=== PATIENT | male | born 1965 | race Caucasian/White ===

== ENCOUNTER 2023-11-03 03:41 | Outpatient (CLI) | payer OTHER, SELFPAY ==
--- OUTSIDE RECORDS SUMMARY | 2023-11-05 00:35 | XMS_ITS | Encounter Summary ---
Author Organization [facility] Address [address] [place] [address] Care Team Providers Care Outside Medical Sales Representative Name Role Phone Elsewhere, Pcp Primary Care Provider Unavailabl e Encounter Details Date Type Department Care Team (Late st Contact Info) Description 10/21/2023 Clinical Communication Department of Orthopedic Surgery in [place], [place] [address] [place] [phone] Vel Vinson M.D., M.B.A. [address] [place] [phone] Social History Tobacco Use Types Packs/Day Years Used Date Smoking Tobacco: Never Passive Smoke Exposure: Never Smokeless Tobacco: Never Alcohol Use Standard Drinks/Week Comments Never 2 (1 standard drink = 0.6 oz pur e alcohol) [facility] Utilities Answer Date Recorded In the past 12 months has [facility] [employer], gas, oil, or water [employer] threatened to shut off services in your [...] (Latest Contact Info) Description 01/02/2024 11:30 AM SUPERVISOR GLYCERIN Clinical Communication Virtual Review in [place], [place] [address] [place] [phone] 01/05/2024 9:20 AM SUPERVISOR GLYCERIN Lab Department of Infusion Therapy in [place], [place] [address] [place] [phone] Vel Vinson M.D., M.B.A. [address] [place] [address] [phone] 01/05/2024 10:15 AM SUPERVISOR GLYCERIN Appointment Department of Radiology, [facility], in [place], [place] [address] [place] [address] [phone] Vel Vnison M.D., M.B.A. [address] [place] [phone] 01/05/2024 10:45 AM SUPERVISOR GLYCERIN Comprehensive Visit Section of Infectious Diseases in [place], [place] [address] [place] [phone] Maddy Bingham P.A.-C. [address] [place] [address] [phone] 01/05/2024 11:15 AM SUPERVISOR GLYCERIN Office Visit Department of Orthopedic Surgery in [place], [place] [address] [place] [phone] Vel Vinson M.D., M.B.A. [address] [place] [phone] 01/06/2024 Hospital Encounter [facility]ST [facility]EI 02 4 AM ADMIT [address] [place] [phone] Vel Vinson M.D., M.B.A. [address] [place] [address] [phone] Scheduled Procedures Name Priority Associated Diagnoses Date/Ti me ARTHROPLASTY REVISION FEMORAL+ACETABULAR HIP Infection Total Hip Arthroplasty Subsequent Right documented as of this encounter Visit Diagnoses Diagnosis Infection 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 Total Hip Arthroplasty Subsequent Right- Primary documented in this encounter Care Teams Outside Medical Sales Representative Relationship Specialty Start Date End Date Elsewhere, Pcp PCP - General Internal Medicine 10/03/23 documented as of this encounter
--- OUTSIDE RECORDS SUMMARY | 2023-11-05 00:35 | XMS_ITS | Encounter Summary ---
Author Organization [facility] Address [address] [place] [address] Care Team Providers Care Psychologist Chief Name Role Phone Elsewhere, Pcp Primary Care Provider Unavailabl e Reason for Referral * Outpatient (Routine) - Authorized Specialty Diagnoses / Procedures Referred By Tammi t Referred To Contact Neurology Balbir Maradiaga M.D. [address] [place] [phone] [facility] Referral ID Status Reason Start Date Expiration Date V isits Requested Visits Authorized [id number] Authorized 10/03/2023 04/03/2025 1 1 Scheduling Instructions Please schedule for after electroencephalogram in May of 2024 * Outpatient (Routine) - Authorized Specialty Diagnoses / Procedures Referred By Tammi t Referred To Contact Diagnoses Seizure (HCC) Procedures EEG routine - awake and sleep Balbir Maradiaga M.D. [address] [place] [phone] [facility] Referral ID Status Reason Start Date Expiration Date V isits Requested Visits Authorized [id number] Authorized 10/03/2023 10/02/2024 1 1 Reason for Visit * Outpatient (Routine) - Closed Specialty Diagnoses / Procedures Referred By Contac t Referred To Contact Neurology Diagnoses Stroke (HCC) Veronica Hill M.D., M.S. [address] [place] [phone] [facility] Referral ID Status Reason Start Date Expiration Date Visits Re quested Visits Authorized [id number] Closed 06/25/2023 12/24/2024 1 1 Encounter Details Date Type Department Care Team (Latest Contact Info) Description 10/03/2023 1:00 PM CDT Comprehensive Visit Department of Neurology in [place], [place] [address] [place] [phone] Balbir Maradiaga M.D. [address] [place] [phone] Stroke Cerebrovascular Accident Personal History (Primary Dx); Seizure (HCC); Stenosis Carotid Artery Left Social History Tobacco Use Types Packs/Day Years Used Date Smoking Tobacco: Never Passive Smoke Exposure: Never Smokeless Tobacco: Never Alcohol Use Standard Drinks/Week Comments Never 2 (1 standard drink = 0.6 oz pur e alcohol) [facility] Utilities Answer Date Recorded In the past 12 months has [employer], gas, oil, or water [employer] threatened to shut off services in your [...] h is sister, Lor, sister Annamaria, and uunkuyx-vb-oea, Ashutosh who help provide co- lateral history. Bennettarged from the hospital to a long-term. He continues to work with physical therapy [...] proprioception on the right hemibody. Noneglect. Coordination: Dbsygx-mh-tnmz and yghg-uc-lkpv testing is normal on the left. ASSESSMENT [...] note. This patient was well known to [facility] Neurology and Neurosurgery, he was a 58-year-old [...] stroke-like symptoms. He was currently at a shelter facility receiving therapies for stroke recovery. Antithrombotics [...] global yet motor predominant aphasia that is juju-ut-nwzfmghy and a right hemiparesis with some movement [...] (Latest Contact Info) Description 01/02/2024 11:30 AM NEGOTIATOR SALES Clinical Communication Virtual Review in [place], [place] 200 [place] [phone] 01/05/2024 9:20 AM NEGOTIATOR SALES Lab Department of Infusion Therapy in [place], [place] [address] [place] [phone] Vel Vinson M.D., M.B.A. [address] [place] [address] [phone] 01/05/2024 10:15 AM NEGOTIATOR SALES Appointment Department of Radiology, [facility], in [place], [place] [address] [place] [phone] Vel Vinson M.D., M.B.A. [address] [place] [phone] 01/05/2024 10:45 AM NEGOTIATOR SALES Comprehensive Visit Section of Infectious Diseases in [place], [place] [address] [place] [phone] Maddy Bingham P.A.-C. [address] [place] [phone] 01/05/2024 11:15 AM NEGOTIATOR SALES Office Visit Department of Orthopedic Surgery in [place], [place] [address] [place] [phone] Vel Vinson M.D., M.B.A. [address] [place] [address] [phone] 01/06/2024 Hospital Encounter [facility]ST RO[facility]I 02 4 AM ADMIT [address] [place] [phone] Vel Vinson M.D., M.B.A. [address] [place] [phone] Scheduled Orders Name Type Priority Associated Diagnoses [...] Left documented in this encounter Care Teams Psychologist Chief Relationship Specialty Start Date End Date Elsewhere, Pcp PCP - General Internal Medicine 10/03/23 documented as of this encounter
--- OUTSIDE RECORDS SUMMARY | 2023-11-05 00:35 | XMS_ITS | Encounter Summary ---
Author Organization [facility] Address [address] [place] [address] Care Team Providers Care Customer Care Representative Name Role Phone Elsewhere, Pcp Primary Care Provider Unavailabl e Encounter Details Date Type Department Care Team (Latest Contact Info) Description 11/03/2023 Intake [facility] Social History Tobacco Use Types Packs/Day Years Used Date Smoking Tobacco: Never Passive Smoke Exposure: Never Smokeless Tobacco: Never Alcohol Use Standard Drinks/Week Comments Never 2 (1 standard drink = 0.6 oz pur e alcohol) [facility] Utilities Answer Date Recorded In the past 12 months has e electric, gas, oil, or water [employer] threatened to shut off services in your [...] (Latest Contact Info) Description 01/02/2024 11:30 AM UNIVERSITY RELATIONS VICE PRESIDENT Clinical Communication Virtual Review in [place], [place] 200 [place] [phone] 01/05/2024 9:20 AM UNIVERSITY RELATIONS VICE PRESIDENT Lab Department of Infusion Therapy in [place], [place] [address] [place] [phone] Vel Vinson M.D., M.B.A. [address] [place] [phone] 01/05/2024 10:15 AM UNIVERSITY RELATIONS VICE PRESIDENT Appointment Department of Radiology, [facility], in [place], [place] [address] [place] [phone] Vel Vinson M.D., M.B.A. [address] [place] [address] [phone] 01/05/2024 10:45 AM UNIVERSITY RELATIONS VICE PRESIDENT Comprehensive Visit Section of Infectious Diseases in [place], [place] [address] [place] [phone] Maddy Bingham P.A.-C. [address] [place] [address] [phone] 01/05/2024 11:15 AM UNIVERSITY RELATIONS VICE PRESIDENT Office Visit Department of Orthopedic Surgery in [place], [place] [address] [place] [phone] Vel Vinson M.D., M.B.A. [address] [place] [phone] 01/06/2024 Hospital Encounter [facility] 02 4 AM ADMIT [address] [place] [address] [phone] Vel Vinson M.D., M.B.A. [address] [place] [address] [phone] Scheduled Procedures Name Priority Associated Diagnoses Date/Ti me ARTHROPLASTY REVISION FEMORAL+ACETABULAR HIP Infection Total Hip Arthroplasty Subsequent Right documented as of this encounter Visit Diagnoses Not on filedocumented in this encounter Care Teams Customer Care Representative Relationship Specialty Start Date End Date Elsewhere, Pcp PCP - General Internal Medicine 10/03/23 documented as of this encounter
--- OUTSIDE RECORDS SUMMARY | 2023-11-05 00:35 | XMS_ITS | Referral Summary ---
Author Organization [facility] Address [address] [place] [id number] Care Team Providers Care Drop Clipper Name Role Phone Elsewhere, Pcp Primary Care Provider Unavailabl e Source Comments Patient records contain information from all sites at [facility]. For routine questions regarding patient records, call [phone] during business hours, M-F 8:00 AM - 5:00 PM Central Time. Record requests for emergency care only can be directed to [phone] at any time.[facility] Encounters Date Type Department Care Team Description 11/03/2023 Intake [facility] 10/21/2023 Clinical Communication Department of Orthopedic Surgery in [place], [place] [address] [place] [phone] Vel Vinson M.D., M.B.A. 10/03/2023 1:00 PM CDT Comprehensive Visit Department of Neurology in [place], [place] [address] [place] [phone] Balbir Maradiaga M.D. Stroke Cerebrovascular Accident Personal History (Primary Dx); Seizure (HCC); Stenosis Carotid Artery Left 10/01/2023 Abstract [place], [place] [address] [place] [phone] Provider, Historical 09/24/2023 2:45 PM CDT Clinical Communication Virtual Review in [place], [place] [address] [place] [phone] 09/08/2023 Orders Only Section of Infectious Diseases in [place], [place] [address] [place] [phone] Storm Nicole M.D. Infection Total Hip Arthroplasty Subsequent Right (Primary Dx) 08/28/2023 11:00 AM CDT Internal E-Consult Department of Vascular Medicine in [place], [place] [address] [place] [phone] Gaudencio Escobedo M.D. Occlusion Carotid Artery Left (Primary Dx); Stenosis Carotid Artery Right; Peripheral Arterial Disease (HCC); Stroke (HCC); Infection Total Hip Arthroplasty Subsequent Right; Hemiplegia Flaccid Dominant Side Right (HCC) 08/27/2023 Orders Only Department of Neurologic Surgery in [place], [place] [address] [place] [phone] sRosalie R.N., CNRN Stenosis Carotid Artery Right (Primary Dx); Occlusion Carotid Artery Left; Peripheral Arterial Disease (HCC); Stroke (HCC); Infection Total Hip Arthroplasty Subsequent Right; Hemiplegia Flaccid Dominant Side Right (HCC) 08/27/2023 Clinical Communication Department of Neurologic Surgery in [place], [place] [address] [place] [phone] Fantasma Butt M.D. 08/26/2023 Orders [address] [facility] Doug Lima M.D. Diabetes Mellitus Type 2 Peripheral Neuropathy ([facility]) 08/25/2023 6:43 AM CDT - 08/25/2023 12:10 PM CDT Hospital Encounter Department of Radiology, [facility] in [place], [place] [address] [place] [phone] Xavi Hicks M.D. Infection Total Hip Arthroplasty Subsequent Right Discharge Disposition: Home or Self Care 08/25/2023 12:11 PM CDT - 08/25/2023 11:59 PM CDT Hospital Encounter Department of Radiology, [facility] in [place], [place] [address] [place] [phone] Radha Ojeda P.A.-C., M.S. Stenosis Carotid Artery Bilateral Discharge Disposition: Home or Self Care 08/25/2023 9:00 AM CDT Comprehensive Visit Section of Infectious Diseases in [address] [phone] Sylvester Robb P.A.-C. Storm Nicole M.D. Infection Total Hip Arthroplasty Subsequent Right (Primary Dx) 08/25/2023 3:00 PM CDT Office Visit Department of Neurologic Surgery in [address] [phone] Fantasma Butt M.D. Stenosis Carotid Artery Right (Primary Dx); Occlusion Carotid Artery Left 08/25/2023 8:15 AM CDT Office Visit Department of Orthopedic Surgery in [address] [phone] Vel Vinson M.D., M.B.A. Infection Total Hip Arthroplasty Subsequent Right (Primary Dx); Stroke (HCC) 08/20/2023 12:00 PM CDT Clinical Communication Virtual Review in [address] [phone] Pre-visit Intake from Last 3 Months Allergies Active Allergy Reactions Criticality Noted Date Comments Cefazolin Other (see comments) 08/25/2023 Possible increase in alkaline phosphatase please see ID notes Medications Medication Sig Dispensed Refills Start Date End Date Status lancets 1 each daily. 50 each 07/29/2022 Active blood sugar diagnostic strips 1 test daily. 30 test 07/29/2022 Active blood-glucose meter (FreeStyle Ansted) kit Use as instructed 1 each 07/29/2022 Active blood glucose ctl high,nml,low solution Glucose control solution provides an easy way to ensure accurate blood glucose testing. 1 each 07/29/2022 Active flash glucose scanning reader (FreeStyle Jessica 2 [place]) miscIndications:Bhargavi betes Mellitus Type 2 Ulcer Foot [...] (04/17/2020): Added automatically from request for surgery [id number] Hyponatremia 03/09/2020 07/30/2022 Hyperkalemia 03/09/2020 07/30/2022 Cellulitis [...] In the past 12 months has e [employer], gas, oil, or water company threatened to [...] (Latest Contact Info) Description 01/02/2024 11:30 AM WEIGHT AND TEST BAR CLERK Clinical Communication Virtual Review in [place], [place] 200 [place] [address] 01/05/2024 9:20 AM WEIGHT AND TEST BAR CLERK Lab Department of Infusion Therapy in [address] [phone] Vel Vinson M.D., M.B.A. [address] [place] [phone] 01/05/2024 10:15 AM WEIGHT AND TEST BAR CLERK Appointment Department of Radiology, [facility], in [place], [place] [address] [place] [phone] Vel Vinson M.D., M.B.A. [address] [place] [phone] 01/05/2024 10:45 AM WEIGHT AND TEST BAR CLERK Comprehensive Visit Section of Infectious Diseases in [place], [place] [address] [place] [phone] Maddy Bingham P.A.-C. [address] [place] [phone] 01/05/2024 11:15 AM WEIGHT AND TEST BAR CLERK Office Visit Department of Orthopedic Surgery in [place], [place] [address] [place] [phone] Vel Vinson M.D., M.B.A. [address] [place] [phone] 01/06/2024 Hospital Encounter [facility] RO 02 4 AM ADMIT [address] [place] [phone] Vel Vinson M.D., M.B.A. [address] [place] [phone] Scheduled Procedures Name Priority Associated Diagnoses Date/Ti me ARTHROPLASTY REVISION FEMORAL+ACETABULAR HIP Infection Total Hip Arthroplasty Subsequent Right Medical Devices Implanted Type Area Dermatology Physician Assistant Device Identifier Shelf Expiration Date Model / Serial / Lot Cmnt Bn [facility] 40gm - [id number] Implanted:Qty: 1 on 05/23/2023 by Vel Vinson M.D., M.B.A. at [facility] Bone Cement Right: Hip Roff 6191-1-001 / / Cmnt Bn [facility] 40gm - [id number] Implanted:Qty: 1 on 05/23/2023 by Félix Mckeon M.D. at [facility] Bone Cement Right: Hip Liliane 6191-1-001 / / Cmnt Bn Smp 40gm - [id number] Implanted:Qty: 1 on 05/23/2023 by Félix Mckeon M.D. at [facility] Bone Cement Right: Hip Roff 6191-1-001 / / Stnt Protege 0.014 1w19g063 - [id number] Implanted:Qty: 1 on 08/09/2022 by Fantasma Butt M.D. at [facility] Cardiac Stent Medtronic 02/19/2024 SECX-8-30-1 35 / / [id number] Small Frag-Screw Yasmany 3.5x16 - Amaral [id number] Implanted:Qty: 3 on 2004 Hardware e.g. pins/screws /rods Depuy Synthes Description:Device Manufactu rer - Synthes. Device Status Text - HARDWARE-7597. K-Wire Smooth S.S. Single 9 .062 - Amaral [id number] Implanted:Qty: 1 on 2004 Hardware e.g. pins/screws /rods Roff Description:Device Manufactu rer - Roff Angel.. Device Status Text - HARDWARE-9295. Small [...] pins/screws /rods Liliane Description:Device Manufactu rer - Liliane Angel.. Device Status Text - HARDWARE-9484. Small Frag-Screw Yasmany 3.5x26 - Amaral [id number] Implanted:Qty: 1 on 01/02/2004 Hardware e.g. pins/screws /rods Depuy Synthes Description:Device Manufactu rer - Synthes. Device Status Text - HARDWARE-7602. Syn Screw Schanz 5.0x250 - Amaral [id number] Implanted:Qty: 1 on 01/02/2004 Hardware e.g. pins/screws /rods Depuy Synthes Description:Device Manufactu rer - Synthes. Device Status Text - HARDWARE-11063. Guide Wire-Ball Tip 3 X 800 - Amaral [id number] Implanted:Qty: 1 on 02/03/2009 Hardware e.g. pins/screws /rods Roff Description:Device Manufactu rer - Roff Angel.. Device Status Text - HARDWARE- 81201. [facility] Data - [id number]. Hip Stm Prs Cmnt Rt 3 200 - [id number] Implanted:Qty: 1 on 05/23/2023 by Félix Mckeon M.D. at [facility] Hip Implant Right: Hip Depuy Synthes 08/16/2032 [id number] / / [id number] Lnr Emp Aox Std +4 40x54 - [id number] Implanted:Qty: 1 on 05/23/2023 by Félix Mckeon M.D. at [facility] Hip Implant Right: Hip Depuy Synthes 02/16/2027 4722-54-440 / / [id number] Fem Hd Art +12ofst 40 - [id number] Implanted:Qty: 1 on 05/23/2023 by Vel Vinson M.D., M.B.A. at [facility] Hip Implant Right: Hip Depuy Synthes 02/16/2033 4734-40-120 / / [id number] Stnt Zilver 518 8x80 - [id number] Implanted:Qty: 1 on 05/24/2023 by Almaz Olea M.D. at [facility] Vascular Stent [employer] 02/24/2026 [id number] / / [id number] Explanted Type Area Dermatology Physician Assistant Device Identifier Shelf Expiration Date Model / Serial / Lot Screw-Hgpii S-Tap 6.5 X 15mm - Amaral [id number] Implanted:Qty: 1 on 02/03/2009 Explanted:Qty: 1 on 05/23/2023 by Vel Vinson M.D., M.B.A. at [facility] Hardware e.g. pins/screws /rods Nori Biomet Description:Device Manufactu rer - Nori. Device Status Text - HARDWARE-35720. Small Frag-Screw Yasmany 3.5x12 - Amaral [id number] Implanted:Qty: 1 on 01/02/2004 Explanted:Qty: 1 on 05/23/2023 by Vel Vinson M.D., M.B.A. at [facility] Hardware e.g. pins/screws /rods Depuy Synthes Description:Device Manufactu rer - Synthes. Device Status Text - HARDWARE-7595. Small Frag-Screw Yasmany 3.5x16 - Amaral [id number] Implanted:Qty: 2 on 01/02/2004 Explanted:Qty: 2 on 05/23/2023 by Vel Vinson M.D., M.B.A. at [facility] Hardware e.g. pins/screws /rods Depuy Synthes Description:Device Manufactu rer - Synthes. Device Status Text - HARDWARE-7597. Pelvic Re-Plate Cvd 3.5x 6ho - Amaral [id number] Implanted:Qty: 1 on 01/02/2004 Explanted:Qty: 1 on 05/23/2023 by Félix Mckeon M.D. at [facility] Hardware e.g. pins/screws /rods Depuy Synthes Description:Device Manufactu rer - Synthes. Device Status Text - HARDWARE-7366. Right Hip Screw-Hgpii S-Tap 6.5 X 30mm - Amaral [id number] Implanted:Qty: 2 on 02/03/2009 Explanted:Qty: 2 on 05/23/2023 by Vel Vinson M.D., M.B.A. at [facility] Hardware e.g. pins/screws /rods Nori [employer] Description:Device Manufactu rer - Nori. Device Status Text - HARDWARE-91973. Screw-Hgpii S-Tap 6.5 X 35mm - Amaral [id number] Implanted:Qty: 1 on 02/03/2009 Explanted:Qty: 1 on 05/23/2023 by Vel Vinson M.D., M.B.A. at [facility] Hardware e.g. pins/screws /rods Nori [employer]omet Description:Device Manufactu rer - Nori. Device Status Text - HARDWARE-02460. 6.5 Saniya Screw-16mm Thread 65 - Amaral [id number] Implanted:Qty: 1 on 01/02/2004 Explanted:Qty: 1 on 05/23/2023 by Vel Vinson M.D., M.B.A. at [facility] Hardware e.g. pins/screws /rods Depuy Synthes Description:Device Manufactu rer - Synthes. Device Status Text - HARDWARE-78747. Implex-Shell Hedro 54mm - Amaral [id number] Implanted:Qty: 1 on 02/03/2009 Explanted:Qty: 1 on 05/23/2023 by Vel Vinson M.D., M.B.A. at [facility] Hip Implant Other/Legacy - See Implant Description Nori Biomet Description:Device Manufactu rer - Nori. Body Location - Other. Right. Device Status Text - HIP IMP-[id number]. Desha-Stem Perkins 8 Hi - Amaral [id number] Implanted:Qty: 1 on 02/03/2009 Explanted:Qty: 1 on 05/23/2023 by Vel Vinson M.D., M.B.A. at [facility] Hip Implant Other/Legacy - See Implant Description [employer] Description:Device Manufactu rer - [employer]. Body Location - Other. Right. Device Status Text - HIP IMP-413107. Nori Liner 0 Degree 32 X 54m - Amaral [id number] Implanted:Qty: 1 on 02/03/2009 Explanted:Qty: 1 on 05/23/2023 by Vel Vinson M.D., M.B.A. at [facility] Hip Implant Other/Legacy - See Implant Description Nori Biomet Description:Device Manufactu rer - Nori. Body Location - Other. Right. Device Status Text - HIP [id number]-998468. Dep. Head Prodigy 32 + 1.0 - Amaral [id number] Implanted:Qty: 1 on 02/03/2009 Explanted:Qty: 1 on 05/23/2023 by Vel Vinson M.D., M.B.A. at [facility] Hip Implant Other/Legacy - See Implant Description [employer] Description:Device Manufactu rer - J & J Ortho. Body Location - Other. Right. Device Status Text - HIP IMP-034745. Procedures Procedure Name Priority Date/Time Associated Diagnosis [...] ALBUMIN, RANDOM, U Routine 03/10/2023 11:30 AM WEIGHT AND TEST BAR CLERK Diabetes Mellitus Type 2 Ulcer Foot Hyperglycemic [...] normal distal ICA in accordance with [place] Symptomatic Carotid Endarterectomy Trial (NASCET). Procedure Note [...] the ICA. Velocities in the stent of evppkgypu066pd/sec with mild narrowing of the stent seen [...] left ICA. Velocities in the stent of hnghzonyg255be/sec with mild narrowing of the stent seen [...] CDT Storm Nicole M.D. LAB BLOOD ADD-ON [facility] [address] [place] [address], [facility] [address] [place] [address] * (ABNORMAL) Sedimentation Rate (08/25/2023 8:11 AM CDT) Sedimentation Rate, B 27(H) 2 - 20 mm/h 08/25/2023 10:12 AM CDT DTL Blood (Blood, Venous) 08/25/2023 8:11 AM CDT 08/25/2023 8:51 AM CDT Storm Nicole M.D. LAB BLOOD ADD-ON Performing Organization Address City/[facility]/ZIP Co de Phone Number [facility] [address] [place] [address], [facility] DTL [facility] [address] [place] [address] * (ABNORMAL) CBC with Differential, Blood (08/25/2023 8:11 AM CDT) Pathologist [facility] Hemoglobin 11.9(L) 13.2 - 16.6 g/dL 08/25/2023 [...] CDT Storm Nicole M.D. LAB BLOOD ADD-ON [facility] [address] [place] [address], [facility] [address] [place] [address] [facility] [address] [place] [address] * CRP (C-Reactive Protein) (08/25/2023 8:11 AM CDT) C-Reactive Protein (CRP), S 3.2 <5.0 mg/L 08/25/2023 9:16 AM CDT DTL Blood (Blood, Venous) 08/25/2023 8:11 AM CDT 08/25/2023 8:55 AM CDT Storm Nicole M.D. LAB BLOOD ADD-ON Performing Organization Address [facility] Co de Phone Number [facility] [address] [place] [address], [facility] [address] [place] [address] * Creatinine with Estimated GFR (08/25/2023 8:11 AM CDT) Creatinine 1.06 0.74 - 1.35 mg/dL 08/25/2023 9:16 AM CDT DTL Estimated GFR (eGFR) 81 >=60 mL/min/BSA 08/25/2023 9:16 AM CDT DTL Comment: Estimated GFR calculated using the 2020 CKD_EPI creatinine equation. Blood (Blood, Venous) 08/25/2023 8:11 AM CDT 08/25/2023 8:55 AM CDT Storm Nicole M.D. LAB BLOOD ADD-ON [facility] [address] [place] [address], [facility] [address] [place] [address] * DX Hip And Pelvis Right 2-3 [...] * Albumin, Random, Urine (03/10/2023 11:30 AM WEIGHT AND TEST BAR CLERK) Microalbumin <12.0 mg/L 03/10/2023 11:54 AM WEIGHT AND TEST BAR CLERK [facility] Comment:If clinically indica faviola, contact the lab for additional testing. Creatinine 112 mg/dL 03/10/2023 11:54 AM WEIGHT AND TEST BAR CLERK [facility] Albumin/Creatinine Ratio <11 <17 mg/g 03/10/2023 11:54 AM WEIGHT AND TEST BAR CLERK [facility] Comment: This ratio may not correspond with the reference range because one or both of the values used to calculate the ratio was above or below the quantification limits. Urine (Urine, Midstream) 03/10/2023 11:30 AM WEIGHT AND TEST BAR CLERK 03/10/2023 11:30 AM WEIGHT AND TEST BAR CLERK Doug Lima M.D. LAB URINE ORDERABLES [facility] [address] [place] [address], [place] [facility] [place] [address] [id number] from Last 3 Months or Most Recently Relevant to Health Maintenance Advance Directives For more information, please contact: [phone] * Full Code (Latest Code Status on [...] Due to: Patient not available Care Teams Drop Clipper Relationship Specialty Start Date End Date Elsewhere, Pcp PCP - General Internal Medicine 10/03/23
--- OUTSIDE RECORDS SUMMARY | 2023-11-05 00:35 | XMS_ITS | Clinical Summary ---
Author Organization [facility] Address [place], [place] [address] Care Team Providers Care Bobbin Inspector Name Role Phone Monty Hernandez MD Primary Care Provider [phone] Allergies No known active allergies Medications Medication Sig Dispensed Refills Start Date End Date Status lisinopril-hydro chlorothiazide, 20-25 mg, (PRINZIDE, ZESTORETIC) 20-25 mg per tabletIndication s:Hypertension Take 1 tablet by mouth once daily. 90 tablet 3 6 11/03/19 24 Discontinued(P harmacist change per medication history (E-cancel not sent)) CPAPIndications: MICHELET (obstructive sleep apnea) autoCPAP, heated humidifier, mask, headgear, filters and tubing. Pressure: 5-18cm/H2O Length of Need: 99 1 Device 0 6 Suspended Additional Information metFORMIN (GLUCOPHAGE) 1,000 mg tabletIndication s:Type 2 diabetes mellitus without complication (HC) Take 1 tablet by mouth 2 times daily with meals. 0.5 tab in am x 5 days; 0.5 tab bid x 5 d; 1 tab in am, 0.5 in pm x 5 d, then 1 tab bid 180 tablet 3 6 11/03/19 24 Discontinued(P harmacist change per medication history (E-cancel not sent)) acetaminophen (TYLENOL EXTRA STRGTH) 500 mg tablet Take 1,000 mg by mouth three times daily. Max acetaminophen dose: 4000mg in 24 hrs. Suspended aspirin (ECOTRIN) 81 mg enteric coated tablet Take 81 mg by mouth once daily. 11/03/19 24 Discontinued(P harmacist change per medication history (E-cancel not sent)) atorvastatin (LIPITOR) 20 mg tablet Take 20 mg by mouth once daily. 11/03/19 24 Discontinued(P harmacist change per medication history (E-cancel not sent)) carboxymethylcel lulose 0.5 % eye drops in dropperette Place 1 Drop into both eyes each time if needed for Dry Eyes. 11/03/19 24 Discontinued(P harmacist change per medication history (E-cancel not sent)) insulin NPH isophane, U-100, (NovoLIN N FlexPen) 100 unit/mL (3 mL) pen Inject subcutaneous. 11/03/19 24 Discontinued(P harmacist change per medication history (E-cancel not sent)) levETIRAcetam (KEPPRA) 100 mg/mL oral solution Take 750 mg by mouth two times daily. 4 Suspended lisinopriL (PRINIVIL; ZESTRIL) 5 mg tablet Take 5 mg by mouth once daily. 4 Suspended nystatin powder (MYCOSTATIN) powder Apply topically to affected area(s) 2 times daily if needed. 4 11/03/19 24 Discontinued(P harmacist change per medication history (E-cancel not sent)) rivaroxaban (XARELTO) 10 mg tablet Take 10 mg by mouth once daily with evening meal. 4 08/28/19 25 Suspended Senna 8.6 mg tablet Take 8.6 mg by mouth once daily. 4 Suspended zinc oxide 20 % ointment Apply topically to affected area(s) once daily if needed. 4 11/03/19 24 Discontinued(P harmacist change per medication history (E-cancel not sent)) aspirin chewable 81 mg chewable tablet Chew 81 mg by mouth once daily. Suspended atorvastatin (LIPITOR) 20 mg tablet Take 20 mg by mouth at bedtime. Suspended insulin NPH isophane, U-100, (NovoLIN N FlexPen) 100 unit/mL (3 mL) pen Inject subcutaneous two times daily with meals. As of 11/03/23: 8 units in AM, 4 units in afternoon Suspended carboxymethylcel lulose 0.5 % eye drops in dropperette Place 2 Drops into both eyes two times daily. Suspended nystatin powder (MYCOSTATIN) powder Apply topically to affected area(s) two times daily. Suspended Active Problems Problem Noted Date Diagnosed Date Gastrointestinal hemorrhage 11/03/2023 MICHELET 04/23/2015 AHI-[id number] 04/27/2015 Hyperplastic colon polyp 04/21/2015 Overview (04/21/2015): Colonoscopy 04/2015 hyperplastic polyp repeat in 5 years Type II diabetes mellitus Hypertension Hyperlipidemia Encounters Date Type Department Care Team Description 11/03/2023 1:45 PM CDT - 11/03/2023 2:10 PM CDT Surgery [facility] [address] [place] [address] Gino Kern MD ESOPHAGOGASTRODUODENOSCOPY 11/03/2023 7:49 AM CDT - Present Hospital Encounter [facility] [address] [place] [address] Sierra Salazar MD [facility], Sreedhar Arriola MD [facility], Julianne Davidson MD [facility], [facility] 11/03/2023 Orders Only [facility] Scanner 1 scan: (1-Ord) [place], CT ANGIO ABD PEL GI BLEED, 11/03/2023 10/27/2023 Lab Requisition [facility] [phone] Pauline Mcbride ELEVATOR CONSTRUCTOR HELPER 09/18/2023 Lab Requisition [facility] [phone] Pauline Mcbride, ELEVATOR CONSTRUCTOR HELPER 09/05/2023 Lab Requisition [facility] [phone] Pauline Mcbride ELEVATOR CONSTRUCTOR HELPER 08/26/2023 Lab Requisition [facility] [phone] William Edwards MD from Last 3 Months [...] = 0.6 oz pur e alcohol) occassionally Social Connections Answer Date Recorded Frequency of Communication with Friends and Fami ly Not on file 11/03/2023 Sex and Gender Information Value Date Recorded Sex Assigned at Not on file Gender Identity Not on file Sexual Orientation Not on file Obstetrics History Last Filed Vital Signs Vital Sign Reading Time Taken Comments Blood Pressure 146/67 11/04/2023 8:20 PM CDT Pulse 55 11/04/2023 8:20 PM CDT Temperature 36.5 ??C (97.7 ??F) 11/04/2023 8:20 PM CD T Respiratory Rate 16 11/04/2023 8:20 PM CDT Oxygen Saturation 98% 11/04/2023 8:20 PM CDT Inhaled Oxygen Concentration - - Weight 88.3 kg (194 lb 10.7 oz) 11/03/2023 7:00 AM CDT Height 180.3 cm (5' 11) 11/03/2023 7:00 AM CDT Body Mass Index 27.15 11/03/2023 7:00 AM CDT Plan of Treatment Health Maintenance Due Date Last Done Comments Pneumococcal series for age 6-64 (1 of 2 - PCV) 1971 HIV for age 15-65 01/02/1980 Hepatitis C screening for age 18-79 1983 Zoster (shingles) series for age 50+ (1 of 2) 2015 Depression screening for age 12+ 03/16/2016 03/16/19 16 BMI (ht and wt on same day) for age 18+ 05/03/2016 05/04/2015, 04/27/2015, 03/16/2015 COVID-19 vaccine series ( season) 2023 Influenza for age 50-64 10/19/2023 Colonoscopy through age 75 04/17/2025 04/18/2015 Tetanus booster 04/26/2025 04/27/2015 Lipids for age 45-75 09/22/2028 09/23/2023, 07/22/2023, 03/16/2015 Tdap Completed 04/27/2015 Procedures The patient is currently admitted. The information in this section might not be complete until the patient is discharged. Procedure Name Priority Date/Time Associated Diagnosis Comments GLUCOSE METER Timed 11/04/2023 10:11 PM CDT GLUCOSE METER Timed 11/04/2023 5:54 PM CDT HEMOGLOBIN Timed 11/04/2023 3:55 PM CDT SCAN-CARDIAC STRIP 11/04/2023 2:59 PM CDT GLUCOSE METER Timed 11/04/2023 1:16 PM CDT CBC W PLT NO DIFF Today 11/04/2023 12:00 PM CDT [facility] GRACE W ONLY Today 11/04/2023 12:00 PM CDT SCAN-CARDIAC STRIP 11/04/2023 7:05 AM CDT GLUCOSE METER Timed 11/04/2023 6:59 AM CDT BASIC METABOLIC PANEL SUZANNE 11/04/2023 5:08 AM CDT MAGNESIUM Early AM 11/04/2023 5:08 AM CDT POTASSIUM Early AM 11/04/2023 5:08 AM CDT PHOSPHORUS Early AM 11/04/2023 5:08 AM CDT SCAN-CARDIAC STRIP 11/03/2023 2:56 PM CDT SCAN CORRESP-EKG RESULTS 024 2:20 PM CDT SCAN-CARDIAC STRIP 11/03/2023 1:40 PM CDT ESOPHAGOGASTRODUODENOSCOPY 11/02 12:35 PM CDT See Md camacho ENDOSCOPY 11/03/2023 12:30 PM CDT TYPE & SCREEN STAT 11/03/2023 9:34 AM CDT PHOSPHORUS SUZANNE 11/03/2023 9:34 AM CDT GLUCOSE METER Timed 11/03/2023 9:34 AM CDT CBC WITH AUTO DIFFERENTIAL STAT 11/02 9:34 AM CDT FIBRINOGEN,QUANTITATIVE Today 11/03/19 9:34 AM CDT PROTIME-INR STAT 11/03/2023 9:34 AM CDT MAGNESIUM STAT 11/03/2023 9:34 AM CDT CBC WITH AUTO DIFFERENTIAL STAT 11/02 9:34 AM CDT BASIC METABOLIC PANEL STAT 11/03/2023 9:34 AM CDT SCAN-CT INTERPRETATION 12:00 AM CDT HEPATIC FUNCTION PANEL Routine 7:30 AM CDT Abnormal levels of other serum enzymes GAMMA GT Routine 10/28/2023 7:30 AM CDT Abnormal levels of other serum enzymes LIPID PANEL Routine 09/23/2023 7:41 AM CDT Essential (primary) hypertension Elevation of levels of liver transaminase levels GAMMA GT Routine 09/23/2023 7:41 AM CDT Essential (primary) hypertension Elevation of levels of liver transaminase levels HEPATIC FUNCTION PANEL Routine 4 7:51 AM CDT Abnormal levels of other serum enzymes HEMOGLOBIN A1C SCREENING Routine 024 7:31 AM CDT Abnormal finding of blood chemistry, unspecified Essential (primary) hypertension Anemia, unspecified Type 2 diabetes mellitus without complications (HC) HEPATIC FUNCTION PANEL Routine 4 7:31 AM CDT Abnormal finding of blood [...] from Last 3 Months Results * (ABNORMAL) GLUCOSE METER (11/04/2023 10:11 PM CDT) Only the most recent of5 resultswithin the time period is included. GLUCOSE METER 123(H) 65 - 100 mg/dL 11/04/2023 10:12 PM CDT [facility] Blood BLOOD SPECIMEN / Unknown 11/04/2023 10:11 PM CDT 11/04/2023 10:12 PM CDT Julianne Velasquez MD CHEMISTRY Performing Organization Address [facility]/ZIP Co de Phone Number [facility] [address] [place] [address], * (ABNORMAL) HEMOGLOBIN (11/04/2023 3:55 PM CDT) Only the most recent of2 resultswithin the time period is included. HEMOGLOBIN 9.7(L) 13.5 - 17.5 g/dL 11/04/2023 4:26 PM CDT [facility] MCV 87 80 - 100 fL 11/04/2023 4:26 PM CDT [facility] Blood BLOOD SPECIMEN / Unknown Venipuncture / Unknown 11/04/2023 3:55 PM CDT 11/04/2023 4:21 PM CDT Sreedhar Martini MD HEMATOLOGY Performing Organization Address [facility]/ZIP Co de Phone Number [facility] [address] [place] [address], * SCAN-CARDIAC STRIP (11/04/2023 2:59 PM CDT) Scanner OTHER * (ABNORMAL) CBC W PLT NO DIFF (11/04/2023 12:00 PM CDT) WHITE BLOOD COUNT 9.5 4.5 - 11.0 thou/cu mm 11/04/2023 12:28 PM CDT [facility] RED BLOOD COUNT 3.20(L) 4.30 - 5.90 mil/cu mm 11/04/2023 12:28 PM CDT [facility] HEMOGLOBIN 9.2(L) 13.5 - 17.5 g/dL 11/04/2023 12:28 PM CDT [facility] HEMATOCRIT 27.8(L) 37.0 - 53.0 % 11/04/2023 12:28 PM CDT [facility] MCV 87 80 - 100 fL 11/04/2023 12:28 PM CDT [facility] MCH 28.8 26.0 - 34.0 pg 11/04/2023 12:28 PM CDT [facility] MCHC 33.1 32.0 - 36.0 g/dL 11/04/2023 12:28 PM CDT [facility] RDW 15.1 11.5 - 15.5 % 11/04/2023 12:28 PM CDT [facility] PLATELET COUNT 176 140 - 440 thou/cu mm 11/04/2023 12:28 PM CDT [facility] MPV 9.6 6.5 - 11.0 fL 11/04/2023 12:28 PM CDT [facility] NRBC 0.0 % 11/04/2023 12:28 PM CDT [facility] ABS NRBC 0.0 thou /cu mm 11/04/2023 12:28 PM CDT [facility] Blood BLOOD SPECIMEN / Unknown Venipuncture / Unknown 11/04/2023 12:00 PM CDT 11/04/2023 12:10 PM CDT Sreedhar Martini MD HEMATOLOGY [facility] [address] [place] [address], * [facility] DRAW ONLY (11/04/2023 12:00 PM CDT) CALCIUM,IONIZE D 1.22 1.15 - 1.27 mmol/L 11/04/2023 12:12 PM CDT [facility] Blood BLOOD SPECIMEN / Unknown Venipuncture / Unknown 11/04/2023 12:00 PM CDT 11/04/2023 12:08 PM CDT Sreedhar Martini MD CHEMISTRY Performing Organization Address [facility]/RUST Co de Phone Number [facility] [address] [place] [address], * SCAN-CARDIAC STRIP (11/04/2023 7:05 AM CDT) Scanner OTHER * POTASSIUM (11/04/2023 5:08 AM CDT) POTASSIUM 4.7 3.5 - 5.1 mmol/L 11/04/2023 6:21 AM CDT [facility] Blood BLOOD SPECIMEN / Unknown Butterfly / Unknown 11/04/2023 5:08 AM CDT 11/04/2023 5:41 AM CDT Sierra Salazar MD CHEMISTRY Performing Organization Address City/[facility]/ZIP Co de Phone Number [facility] [address] [place] [address], * PHOSPHORUS (11/04/2023 5:08 AM CDT) Only the most recent of2 resultswithin the time period is included. PHOSPHORUS 2.8 2.5 - 4.5 mg/dL 11/04/2023 6:21 AM CDT [facility] Blood BLOOD SPECIMEN / Unknown Butterfly / Unknown 11/04/2023 5:08 AM CDT 11/04/2023 5:41 AM CDT Sierra Salazar MD CHEMISTRY Performing Organization Address [facility]/ZIP Co de Phone Number [facility] [address] [place] [phone], * MAGNESIUM (11/04/2023 5:08 AM CDT) Only the most recent of2 resultswithin the time period is included. MAGNESIUM 1.7 1.6 - 2.6 mg/dL 11/04/2023 6:21 AM CDT [facility] Blood BLOOD SPECIMEN / Unknown Butterfly / Unknown 11/04/2023 5:08 AM CDT 11/04/2023 5:41 AM CDT Sierra Salazar MD CHEMISTRY Performing Organization Address [facility] de Phone Number [facility] [address] [place] [phone], * (ABNORMAL) BASIC METABOLIC PANEL (11/04/2023 5:08 AM CDT) Only the most recent of3 resultswithin the time period is included. SODIUM 137 136 - 145 mmol/L 11/04/2023 8:32 AM CDT [facility] POTASSIUM 4.7 3.5 - 5.1 mmol/L 11/04/2023 8:32 AM T [facility] CHLORIDE 105 98 - 107 mmol/L 11/04/2023 8:32 AM T [facility] CO2,TOTAL 24 22 - 29 mmol/L 11/04/2023 8:32 AM T [facility] ANION GAP 8 5 - 18 11/04/2023 8:32 AM T [facility] GLUCOSE 192(H) 70 - 99 mg/dL 11/04/2023 8:32 AM T [facility] CALCIUM 8.4(L) 8.6 - 10.0 mg/dL 11/04/2023 8:32 AM T [facility] BUN 33(H) 6 - 20 mg/dL 11/04/2023 8:32 AM CDT [facility] CREATININE 0.83 0.70 - 1.20 mg/dL 11/04/2023 8:32 AM CDT [facility] BUN/CREAT RATIO 40(H) 10 - 20 8:32 AM CDT [facility] eGFR >90 >90 mL/min/1.7 3m2 11/04/2023 8:32 AM CDT [facility] Comment:As of 2021, eG FR is calculated by the CKD-EPI creatinine equation without race adjustment. ??eGFR can be influenced by muscle mass, exercise, and diet. ??The reported eGFR is an estimation only and is only applicable if the renal function is stable. Blood BLOOD SPECIMEN / Unknown Butterfly / Unknown 11/04/2023 5:08 AM CDT 11/04/2023 5:41 AM CDT Sreedhar Martini MD [facility]MISTRY [facility] [address] [place] [address], * SCAN-CARDIAC STRIP (11/03/2023 2:56 PM CDT) Scanner OTHER * SCAN CORRESP-EKG RESULTS (11/03/2023 2:20 PM CDT) Narrative 11/03/2023 2:20 PM CDT Ordered by an unspecified provider. Other Clinical Staff OTHER * SCAN-CARDIAC STRIP (11/03/2023 1:40 PM CDT) Scanner OTHER * ENDOSCOPY (11/03/2023 12:30 PM CDT) 11/03/2023 12:3 0 PM CDT Narrative Transcriptions Gino Kern MD - 11/03/2023 1:09 PM CDT [facility] Patient Name: Estevan Lester Procedure Date: 11/03/2023 Gender: Male Date of : 1965 Admit Type: Inpatient Procedure: Upper GI endoscopy Proceduralist: Gino Kern MD - [facility] Indications/Pre-Op Diagnosis: Coffee-ground emesis, Melena Medications: Fentanyl 100 micrograms IV, Midazolam 1 mgIV Procedure Description: Risk of bleeding, infection, perforation, need for surgery and alternatives discussed. The endoscope [id number] was introduced through the mouth, and advanced to the second part of duodenum. The upper GI endoscopy was accomplished without difficulty. The patient tolerated the procedure well. Complications: No immediate complications. Estimated Blood Loss & Specimen: Estimated blood loss: none. Findings: The esophagus was normal. A 6 mm bleeding Oralia-Corado tear with stigmata of recent bleedingwas found. Hematin (altered blood/eigjnk-uvrdpk-jjyb material) was found on the greater curvature of the stomach. The duodenal bulb, first portion of the duodenum and second portionof the duodenum were normal. Impressions/Post-Op Diagnosis: - Normal esophagus. - Oralia-Corado tear. - Hematin (altered blood/maqcnd-akilrp-ilaw material) in the greater curvature of the stomach. - Normal duodenal bulb, first portion of the duodenum and secondportion of the duodenum. - No specimens collected. Recommendation: - Observe patient in ICU. PPIs- clear liquid and ADAT if hgb ikkyar-Todu-omeyrqp if needed Gino Kern MD 11/03/2023 1:09:30 PM This report has been signed electronically. Note Initiated On: 11/03/2023 12:30 PM Gino Kern MD PROCEDURE ORD * (ABNORMAL) CBC WITH AUTO DIFFERENTIAL (11/03/2023 9:34 AM CDT) WHITE BLOOD COUNT 10.8 4.5 - 11.0 thou/cu mm 11/03/2023 9:48 AM CDT [facility] RED BLOOD COUNT 3.63(L) 4.30 - 5.90 mil/cu mm 11/03/2023 9:48 AM CDT [facility] HEMOGLOBIN 10.2(L) 13.5 - 17.5 g/dL 11/03/2023 9:48 AM CDT [facility] HEMATOCRIT 31.7(L) 37.0 - 53.0 % 11/03/2023 9:48 AM CDT [facility] MCV 87 80 - 100 fL 11/03/2023 9:48 AM CDT [facility] MCH 28.1 26.0 - 34.0 pg 11/03/2023 9:48 AM CDT [facility] MCHC 32.2 32.0 - 36.0 g/dL 11/03/2023 9:48 AM CDT [facility] RDW 14.7 11.5 - 15.5 % 11/03/2023 9:48 AM CDT [facility] PLATELET COUNT 191 140 - 440 thou/cu mm 11/03/2023 9:48 AM CDT [facility] MPV 9.5 6.5 - 11.0 fL 11/03/2023 9:48 AM CDT [facility] NRBC 0.0 % 11/03/2023 9:48 AM CDT [facility] ABS NRBC 0.0 thou /cu mm 11/03/2023 9:48 AM CDT [facility] % NEUT 57.9 % 11/03/2023 9:48 AM CDT [facility] % LYMPH 20.6 % 11/03/2023 9:48 AM CDT [facility] % MONO 14.0 % 11/03/2023 9:48 AM CDT [facility] % EOS 2.8 % 11/03/2023 9:48 AM CDT [facility] % BASO 0.6 % 11/03/2023 9:48 AM CDT [facility] % IMMATURE GRAN (METAS,MYELOS,N[place] OS) 4.1 % 11/03/2023 9:48 AM CDT [facility] ABSOLUTE NEUTROPHILS 6.2 1.7 - 7.0 thou/cu mm 11/03/2023 9:48 AM CDT [facility] ABSOLUTE LYMPHOCYTES 2.2 0.9 - 2.9 thou/cu mm 11/03/2023 9:48 AM CDT [facility] ABSOLUTE MONOCYTES 1.5(H) <0.9 thou/cu mm 11/03/2023 9:48 AM CDT [facility] ABSOLUTE EOSINOPHILS 0.3 <0.5 thou/cu mm 11/03/2023 9:48 AM CDT [facility] ABSOLUTE BASOPHILS 0.1 <0.3 thou/cu mm 11/03/2023 9:48 AM CDT [facility] ABSOLUTE IMMATURE GRANULOCYTES(MET ,MYELOS,PROS) 0.4(H) <0.3 thou/cu mm 11/03/2023 9:48 AM CDT [facility] Blood BLOOD SPECIMEN / Unknown Non-Lab Venipuncture / Unknown 11/03/2023 9:34 AM CDT 11/03/2023 9:44 AM CDT Ede Casas MD HEMATOLOGY [facility] [address] [place] [phone], * TYPE & SCREEN (11/03/2023 9:34 AM CDT) ABORH O Rh Positive 11/03/2023 10:26 AM CDT [facility] ANTIBODY SCREEN Negative Negative 11/03/2023 10:26 AM CDT [facility] SPECIMEN EXPIRATION DATE/TIME 11/06/23 23:59 11/03/2023 10:26 AM CDT [facility] Blood BLOOD SPECIMEN / Unknown Non-Lab Venipuncture / Unknown 11/03/2023 9:34 AM CDT 11/03/2023 9:43 AM CDT Raquel Aaron MD BLOOD BANK [facility] [address] [place] [address], * (ABNORMAL) Protime - INR (11/03/2023 9:34 AM CDT) INR 1.4(H) <1.3 11/03/2023 9:59 AM CDT [facility] PROTIME 15.2(H) 10.3 - 12.3 sec 11/03/2023 9:59 AM CDT [facility] Blood BLOOD SPECIMEN / Unknown Non-Lab Venipuncture / Unknown 11/03/2023 9:34 AM CDT 11/03/2023 9:44 AM CDT Narrative [facility] - 11/03/2023 9:59 AM CDT ?Therapeutic Range 2.0-3.0 for most anticoagulated patients 2.5-3.5 or 4.0 for high risk patients The INR is only used for patients on stable oral anticoagulant therapy. It makes no significant contribution to the diagnosis or treatment of patients whose Protime is prolonged for other reasons. INR results are increased when heparin levels exceed 1.0 U/mL, which corresponds to an aPTT >125 seconds if the patient is on UFH. Ede Casas MD HEMATOLOGY Performing Organization Address City/[facility]/ZIP Co de Phone Number [facility] [address] [place] [address], * FIBRINOGEN,QUANTITATIVE (11/03/2023 9:34 AM CDT) Pathologist [facility] FIBRINOGEN,JESS NTITATIVE 268 193 - 401 mg/dL 11/03/2023 9:59 AM CDT [facility] Blood BLOOD SPECIMEN / Unknown Non-Lab Venipuncture / Unknown 11/03/2023 9:34 AM CDT 11/03/2023 9:44 AM CDT Ede Casas MD HEMATOLOGY Performing Organization Address [facility] de Phone Number [facility] [address] [place] [address], * SCAN-CT INTERPRETATION (11/03/2023 12:00 AM CDT) Anatomical Region Laterality Modality Other Scanner OTHER * (ABNORMAL) GAMMA GT (10/28/2023 7:30 AM CDT) Only the most recent of2 resultswithin the time period is included. Pathologist [facility] GAMMA GT 146(H) 8 - 61 IU/L 10/28/2023 12:47 PM CDT [facility] Blood BLOOD SPECIMEN / Unknown Venipuncture / Unknown 10/28/2023 7:30 AM CDT 10/28/2023 8:54 AM CDT Pauline Mcbride NP CHEMISTRY Performing Organization Address [facility] Co de Phone Number [facility] [address] [place] [address], * (ABNORMAL) HEPATIC FUNCTION PANEL (10/28/2023 7:30 AM CDT) Only the most recent of3 resultswithin the time period is included. Pathologist [facility] ALBUMIN 3.9(L) 4.0 - 4.9 g/dL 10/28/2023 9:20 AM CDT [facility] PROTEIN,TOTAL 7.1 6.0 - 8.0 g/dL 10/28/2023 9:20 AM [facility] BILIRUBIN,TOTAL 0.5 0.0 - 1.2 mg/dL 10/28/2023 9:20 AM [facility] BILIRUBIN,DIRECT 0.2 0.0 - 0.2 mg/dL 10/28/2023 9:20 AM T [facility] BILIRUBIN,INDIRE CT 0.3 0.2 - 0.8 mg/dL 10/28/2023 9:20 AM [facility] ALK PHOSPHATASE 204(H) 40 - 129 IU/L 10/28/2023 9:20 AM [facility] ALT (SGPT) 35 10 - 50 IU/L 10/28/2023 9:20 AM [facility] AST (SGOT) 39 10 - 50 IU/L 10/28/2023 9:20 AM [facility] Blood BLOOD SPECIMEN / Unknown Venipuncture / Unknown 10/28/2023 7:30 AM CDT 10/28/2023 8:54 AM T Pauline Mcbride NP CHEMISTRY [facility] [address] [place] [address] * LIPID PANEL (09/23/2023 7:41 AM CDT) CHOLESTEROL,TOTAL 123 100 - 199 mg/dL 09/23/2023 9:11 AM [facility] Comment: Cholesterol, Total Reference Ranges Desirable <200 mg/dL Borderline 200-239 mg/dL High >=240 mg/dL TRIGLYCERIDES 94 <150 mg/dL 09/23/2023 9:11 AM [facility] HDL CHOLESTEROL 48 >40 mg/dL 9:11 AM [facility] NON-HDL CHOLESTEROL 75 <145 mg/dl 09/23/2023 9:11 AM [facility] CHOL/HDL RATIO 2.56 <4.50 09/23/2023 9:11 AM CDT [facility] LDL CHOLESTEROL 56 <=130 mg/dL 09/23/2023 9:11 AM CDT [facility] VLDL CHOLESTEROL 19 <=30 mg/dL 09/23/19 9:11 AM CDT [facility] Blood BLOOD SPECIMEN / Unknown Venipuncture / Unknown 09/23/2023 7:41 AM CDT 09/23/2023 8:46 AM CDT Pauline Mcbride NP CHEMISTRY Performing Organization Address [facility] de Phone Number [facility] [address] [place] [address] * HEMOGLOBIN A1C SCREENING (09/02/2023 7:31 AM CDT) HEMOGLOBIN A1C SCREENING 5.3 <=6.4 % 09/02/2023 8:33 AM CDT [facility] Blood BLOOD SPECIMEN / Unknown Venipuncture / Unknown 09/02/2023 7:31 AM CDT 09/02/2023 8:27 AM CDT Narrative [facility] - 09/02/2023 8:33 AM CDT ? (<5.7%) ?Normal ? (5.7% to 6.4%) ? Indicates prediabetes ? (>=6.5%) ? 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
--- OUTSIDE RECORDS SUMMARY | 2023-11-05 00:35 | XMS_ITS | Clinical Summary ---
Author Organization [facility] Address [address] [place] [address] Care Team Providers Care Supervisor Brake Repair Name Role Phone Elsewhere, Pcp Primary Care Provider Unavailabl e Source Comments Patient records contain information from all sites at [facility]. For routine questions regarding patient records, call [phone] during business hours, M-F 8:00 AM - 5:00 PM Central Time. Record requests for emergency care only can be directed to [phone] time.[facility] Allergies Active Allergy Reactions Criticality Noted Date Comments Cefazolin Other (see comments) 08/25/2023 Possible increase in alkaline phosphatase please see ID notes Medications Medication Sig Dispensed Refills Start Date End Date Status lancets 1 each daily. 50 each 07/29/2022 Active blood sugar diagnostic strips 1 test daily. 30 test 07/29/2022 Active blood-glucose meter (FreeStyle [place]) kit Use as instructed 1 each 07/29/2022 Active blood glucose ctl high,nml,low solution Glucose control solution provides an easy way to ensure accurate blood glucose testing. 1 each 07/29/2022 Active flash glucose scanning reader (FreeStyle Jessica 2 [place]) miscIndications:Bhargavi betes Mellitus Type 2 Ulcer Foot [...] (04/17/2020): Added automatically from request for surgery [id number] Hyponatremia 03/09/2020 07/30/2022 Hyperkalemia 03/09/2020 07/30/2022 Cellulitis 03/08/2020 03/20/2020 Cellulitis Foot Right 03/08/20202022 Diabetes Mellitus Type 2 Hyperglycemia 02/18/2017 04/17/2022 Diabetes Mellitus Type 2 Ulcer Foot 04/17/2022 Encounters Date Type Department Care Team Description 11/03/2023 Intake [facility] 10/21/2023 Clinical Communication Department of Orthopedic Surgery in [address] [phone] Vel Vinson M.D., M.B.A. 10/03/2023 1:00 PM CDT Comprehensive Visit Department of Neurology in [address] [phone] Balbir Maradiaga M.D. Stroke Cerebrovascular Accident Personal History (Primary Dx); Seizure (HCC); Stenosis Carotid Artery Left 10/01/2023 [place], [place] [address] [place] [phone] Provider, Historical 09/24/2023 2:45 PM CDT Clinical Communication Virtual Review in [place], [place] [address] [place] [address] 09/08/2023 Orders Only Section of Infectious Diseases in [address] [phone] Storm Nicole M.D. Infection Total Hip Arthroplasty Subsequent Right (Primary Dx) 08/28/2023 11:00 AM CDT Internal E-Consult Department of Vascular Medicine in [address] [phone] Gaudencio Escobedo M.D. Occlusion Carotid Artery Left (Primary Dx); Stenosis Carotid Artery Right; Peripheral Arterial Disease (HCC); Stroke (HCC); Infection Total Hip Arthroplasty Subsequent Right; Hemiplegia Flaccid Dominant Side Right (HCC) 08/27/2023 Orders Only Department of Neurologic Surgery in [address] [address] Rosalie Sosa R.N., CNRN Stenosis Carotid Artery Right (Primary Dx); Occlusion Carotid Artery Left; Peripheral Arterial Disease (HCC); Stroke (HCC); Infection Total Hip Arthroplasty Subsequent Right; Hemiplegia Flaccid Dominant Side Right (HCC) 08/27/2023 Clinical Communication Department of Neurologic Surgery in [place], [place] [address] [place] [phone] Fantasma Butt M.D. 08/26/[address] [facility] Doug Lima M.D. Diabetes Mellitus Type 2 Peripheral Neuropathy (HCC) 08/25/2023 3:00 PM CDT Office Visit Department of Neurologic Surgery in [place], [place] [address] [place] [phone] Fantasma Butt M.D. Stenosis Carotid Artery Right (Primary Dx); Occlusion Carotid Artery Left 08/25/2023 12:11 PM CDT - 08/25/2023 11:59 PM CDT Hospital Encounter Department of Radiology, [facility] in [place], [place] [address] [place] [phone] Radha Ojeda P.A.-C., M.S. Stenosis Carotid Artery Bilateral Discharge Disposition: Home or Self Care 08/25/2023 9:00 AM CDT Comprehensive Visit Section of Infectious Diseases in [address] [phone] Sylvester Robb P.A.-C. Storm Nicole M.D. Infection Total Hip Arthroplasty Subsequent Right (Primary Dx) 08/25/2023 8:15 AM CDT Office Visit Department of Orthopedic Surgery in [place], [place] [address] [place] [phone] Vel Vinson M.D., M.B.A. Infection Total Hip Arthroplasty Subsequent Right (Primary Dx); Stroke (HCC) 08/25/2023 6:43 AM CDT - 08/25/2023 12:10 PM CDT Hospital Encounter Department of Radiology, [facility], in [place], [place] [address] [place] [phone] Xavi Hicks M.D. Infection Total Hip Arthroplasty Subsequent Right Discharge Disposition: Home or Self Care 08/20/2023 12:00 PM CDT Clinical Communication Virtual Review in [place], [place] [address] [place] [address] Pre-visit Intake from Last 3 Months Immunizations [...] = 0.6 oz pur e alcohol) [facility] redealizeities Answer Date Recorded In the past 12 months has e electric, gas, oil, or water [employer] threatened to shut off services in your [...] (Latest Contact Info) Description 01/02/2024 11:30 AM HEALTH ASSESSMENT AND TREATMENT TEACHER Clinical Communication Virtual Review in [place], [place] [address] [place] [address] 01/05/2024 9:20 AM HEALTH ASSESSMENT AND TREATMENT TEACHER Lab Department of Infusion Therapy in [place], [place] [address] [place] [phone] Vel Vinson M.D., M.B.A. [address] [place] [phone] 01/05/2024 10:15 AM HEALTH ASSESSMENT AND TREATMENT TEACHER Appointment Department of Radiology, [facility], in [place], [place] [address] [place] [phone] Vel Vinson M.D., M.B.A. [address] [place] [phone] 01/05/2024 10:45 AM HEALTH ASSESSMENT AND TREATMENT TEACHER Comprehensive Visit Section of Infectious Diseases in [place], [place] [address] [place] [phone] Maddy Bingham P.A.-C. [address] [place] [phone] 01/05/2024 11:15 AM HEALTH ASSESSMENT AND TREATMENT TEACHER Office Visit Department of Orthopedic Surgery in [place], [place] [address] [place] [phone] Vel Vinson M.D., M.B.A. [address] [place] [phone] 01/06/2024 Hospital Encounter RST ROEI 02 4 AM ADMIT [address] [place] [phone] Vel Vinson M.D., M.B.A. [address] [place] [phone] Scheduled Procedures Name Priority Associated Diagnoses Date/Ti [...] 03/10/2023, 03/10/2023 Medical Devices Implanted Type Area Plumber Assistant Device Identifier Shelf Expiration Date Model / Serial / Lot Cmnt Bn Smp 40gm - [id number] Implanted:Qty: 1 on 05/23/2023 by Vel Vinson M.D., M.B.A. at [facility] Bone Cement Right: Hip Liliane 6191-1-001 / / Cmnt Bn Smp 40gm - [id number] Implanted:Qty: 1 on 05/23/2023 by Félix Mckeon M.D. at [facility] Bone Cement Right: Hip Liberty 6191-1-001 / / Cmnt Bn Smp 40gm - [id number] Implanted:Qty: 1 on 05/23/2023 by Félix Mckeon M.D. at [facility] Bone Cement Right: Hip Liliane 6191-1-001 / / Stnt Protege 0.014 [id number] - [id number] Implanted:Qty: 1 on 08/09/2022 by Fantasma Butt M.D. at [facility] Cardiac Stent Medtronic 02/19/2024 SECX-8-30-1 35 / / [id number] Small Frag-Screw Yasmany 3.5x16 - Amaral [id number] Implanted:Qty: 3 on 2004 Hardware e.g. pins/screws /rods Depuy Synthes Description:Device Manufactu rer - Synthes. Device Status Text - HARDWARE-7597. K-Wire Smooth S.S. Single 9 .062 - Amaral [id number] Implanted:Qty: 1 on 2004 Hardware e.g. pins/screws /rods Liliane Description:Device Manufactu rer - Liberty Angel.. Device Status Text - HARDWARE-9295. Small [...] 2 on 01/02/2004 Hardware e.g. pins/screws /rods Liberty Description:Device Manufactu rer - Liberty Angel.. Device Status Text - HARDWARE-9484. Small Frag-Screw Yasmany 3.5x26 - Amaral [id number] Implanted:Qty: 1 on 01/02/2004 Hardware e.g. pins/screws /rods Depuy Synthes Description:Device Manufactu rer - Synthes. Device Status Text - HARDWARE-7602. Syn Screw Schanz 5.0x250 - Amaral [id number] Implanted:Qty: 1 on 01/02/2004 Hardware e.g. pins/screws /rods Depuy Synthes Description:Device Manufactu rer - Synthes. Device Status Text - HARDWARE-28294. Guide Wire-Ball Tip 3 X 800 - Amaral [id number] Implanted:Qty: 1 on 02/03/2009 Hardware e.g. pins/screws /rods Liberty Description:Device Manufactu rer - Liliane Angel.. Device Status Text - HARDWARE- 23481. [facility] Data - [id number]. Hip Stm Prs Cmnt Rt 3 200 - [id number] Implanted:Qty: 1 on 05/23/2023 by Félix Mckeon M.D. at [facility] Hip Implant Right: Hip Depuy Synthes 08/16/2032 [id number] / / [id number] Lnr Emp Aox Std +4 40x54 - [id number] Implanted:Qty: 1 on 05/23/2023 by Félix Mckeon M.D. at [facility] Hip Implant Right: Hip Depuy Synthes 02/16/2027 4722-54-440 / / [id number] Fem Hd Art +12ofst 40 - [id number] Implanted:Qty: 1 on 05/23/2023 by Vel Vinson M.D., M.B.A. at [facility] Hip Implant Right: Hip Depuy Synthes 02/16/2033 4734-40-120 / / [id number] Stnt Zilver 518 8x80 - [id number] Implanted:Qty: 1 on 05/24/2023 by Almaz Olea M.D. at [facility] Vascular Stent [employer] 02/24/2026 [id number] / / [id number] Explanted Type Area Plumber Assistant Device Identifier Shelf Expiration Date Model / Serial / Lot Screw-Hgpii S-Tap 6.5 X 15mm - Amaral [id number] Implanted:Qty: 1 on 02/03/2009 Explanted:Qty: 1 on 05/23/2023 by Vel Vinson M.D., M.B.A. at [facility] Hardware e.g. pins/screws /rods Nori Biomet Description:Device Manufactu rer - Nori. Device Status Text - HARDWARE-98201. Small Frag-Screw Yasmany 3.5x12 - Amaral [id number] Implanted:Qty: 1 on 01/02/2004 Explanted:Qty: 1 on 05/23/2023 by Vel Vinson M.D., M.B.A. at [facility] Hardware e.g. pins/screws /rods Depuy Synthes Description:Device Manufactu rer - Synthes. Device Status Text - HARDWARE-7595. Small Frag-Screw Yasmany 3.5x16 - Amaral [id number] Implanted:Qty: 2 on 01/02/2004 Explanted:Qty: 2 on 05/23/2023 by Vel Vinson M.D., M.B.A. at [facility] Hardware e.g. pins/screws /rods Depuy Synthes Description:Device Manufactu rer - Synthes. Device Status Text - HARDWARE-7597. Pelvic Re-Plate Cvd 3.5x 6ho - Amaral [id number] Implanted:Qty: 1 on 01/02/2004 Explanted:Qty: 1 on 05/23/2023 by Félix Mckeon M.D. at [facility] Hardware e.g. pins/screws /rods Depuy Synthes Description:Device Manufactu rer - Synthes. Device Status Text - HARDWARE-7366. Right Hip Screw-Hgpii S-Tap 6.5 X 30mm - Amaral [id number] Implanted:Qty: 2 on 02/03/2009 Explanted:Qty: 2 on 05/23/2023 by Vel Vinson M.D., M.B.A. at [facility] Hardware e.g. pins/screws /rods Nori [employer]omet Description:Device Manufactu rer - Nori. Device Status Text - HARDWARE-06892. Screw-Hgpii S-Tap 6.5 X 35mm - Amaral [id number] Implanted:Qty: 1 on 02/03/2009 Explanted:Qty: 1 on 05/23/2023 by Vel Vinson M.D., M.B.A. at [facility] Hardware e.g. pins/screws /rods Nori [employer]omet Description:Device Manufactu rer - Nori. Device Status Text - HARDWARE-53926. 6.5 Saniya Screw-16mm Thread 65 - Amaral [id number] Implanted:Qty: 1 on 01/02/2004 Explanted:Qty: 1 on 05/23/2023 by Vel Vinson M.D., M.B.A. at [facility] Hardware e.g. pins/screws /rods Depuy Synthes Description:Device Manufactu rer - Synthes. Device Status Text - HARDWARE-69194. Implex-Shell Hedro 54mm - Amaral [id number] Implanted:Qty: 1 on 02/03/2009 Explanted:Qty: 1 on 05/23/2023 by Vel Vinson M.D., M.B.A. at [facility] Hip Implant Other/Legacy - See Implant Description Nori [employer]omet Description:Device Manufactu rer - Nori. Body Location - Other. Right. Device Status Text - HIP [id number]. Mart-Stem Perkins 8 Hi - Amaral [id number] Implanted:Qty: 1 on 02/03/2009 Explanted:Qty: 1 on 05/23/2023 by Vel Vinson M.D., M.B.A. at [facility] Hip Implant Other/Legacy - See Implant Description [employer] Description:Device Manufactu rer - [employer]. Body Location - Other. Right. Device Status Text - HIP [id number]. Nori Liner 0 Degree 32 X 54m - Amaral [id number] Implanted:Qty: 1 on 02/03/2009 Explanted:Qty: 1 on 05/23/2023 by Vel Vinson M.D., M.B.A. at [facility] Hip Implant Other/Legacy - See Implant Description Nori Biomet Description:Device Manufactu rer - Nori. Body Location - Other. Right. Device Status Text - HIP [id number]. Dep. Head Prodigy 32 + 1.0 - Amaral [id number] Implanted:Qty: 1 on 02/03/2009 Explanted:Qty: 1 on 05/23/2023 by Vel Vinson M.D., M.B.A. at [facility] Hip Implant Other/Legacy - See Implant Description [employer] Description:Device Manufactu rer - J & J Ortho. Body Location - Other. Right. Device Status Text - HIP IMP-[id number]. Procedures Procedure Name Priority Date/Time Associated Diagnosis [...] ALBUMIN, RANDOM, U Routine 03/10/2023 11:30 AM HEALTH ASSESSMENT AND TREATMENT TEACHER Diabetes Mellitus Type 2 Ulcer Foot Hyperglycemic [...] normal distal ICA in accordance with [place] Symptomatic Carotid Endarterectomy Trial (NASCET). Procedure Note [...] the ICA. Velocities in the stent of qkzdfsdac318ht/sec with mild narrowing of the stent seen [...] left ICA. Velocities in the stent of omvesesdv077yd/sec with mild narrowing of the stent seen and velocities proximal tothis narrowing are 82cm/sec. Findings consistent with mild in stentnarrowing. No significant stenosis. 3) Stable bilateral ECA stenoses. 4) Right vertebral artery 50-69% stenosis, at the lower end of the range.Stable left vertebral artery 70-99% stenosis. Radha Ojeda P.A.-C. MBelkisS. [facility] I[facility]RA A[facility] * (ABNORMAL) Hepatic Function [...] Storm Nicole M.D. LAB BLOOD ADD-ON [facility] [address] [place] [address], [facility] [address] [place] [address] * (ABNORMAL) Sedimentation Rate (08/25/2023 8:11 AM CDT) Sedimentation Rate, B 27(H) 2 - 20 mm/h 08/25/2023 10:12 AM CDT DTL Blood (Blood, Venous) 08/25/2023 8:11 AM CDT 08/25/2023 8:51 AM CDT Storm Nicole M.D. LAB BLOOD ADD-ON [facility] [address] [place] [address], [facility] DTL [facility] [address] [place] [address] * (ABNORMAL) CBC with Differential, Blood (08/25/2023 [...] CDT Storm Nicole M.D. LAB BLOOD ADD-ON [facility] [address] [place] [address], [facility] [address] [place] [address] [facility] [address] [place] [address] * CRP (C-Reactive Protein) (08/25/2023 8:11 AM CDT) C-Reactive Protein (CRP), S 3.2 <5.0 mg/L 08/25/2023 9:16 AM CDT DTL Blood (Blood, Venous) 08/25/2023 8:11 AM CDT 08/25/2023 8:55 AM CDT Storm Nicole M.D. LAB BLOOD ADD-ON Performing Organization Address [facility] Co de Phone Number [facility] [address] [place] [address], [facility] [address] [place] [address] * Creatinine with Estimated GFR (08/25/2023 8:11 AM CDT) Creatinine 1.06 0.74 - 1.35 mg/dL 08/25/2023 9:16 AM CDT DTL Estimated GFR (eGFR) 81 >=60 mL/min/BSA 08/25/2023 9:16 AM CDT DTL Comment: Estimated GFR calculated using the 2020 CKD_EPI creatinine equation. Blood (Blood, Venous) 08/25/2023 8:11 AM CDT 08/25/2023 8:55 AM CDT Storm Nicole M.D. LAB BLOOD ADD-ON [facility] [address] [place] [address], [facility] DTL [facility] [address] [place] [address] * DX Hip And Pelvis Right 2-3 [...] * Albumin, Random, Urine (03/10/2023 11:30 AM HEALTH ASSESSMENT AND TREATMENT TEACHER) Microalbumin <12.0 mg/L 03/10/2023 11:54 AM HEALTH ASSESSMENT AND TREATMENT TEACHER RDWG Comment:If clinically indica faviola, contact the lab for additional testing. Creatinine 112 mg/dL 03/10/2023 11:54 AM HEALTH ASSESSMENT AND TREATMENT TEACHER RDWG Albumin/Creatinine Ratio <11 <17 mg/g 03/10/2023 11:54 AM HEALTH ASSESSMENT AND TREATMENT TEACHER RDWG Comment: This ratio may not correspond with the reference range because one or both of the values used to calculate the ratio was above or below the quantification limits. Urine (Urine, Midstream) 03/10/2023 11:30 AM HEALTH ASSESSMENT AND TREATMENT TEACHER 03/10/2023 11:30 AM HEALTH ASSESSMENT AND TREATMENT TEACHER Doug Lima M.D. LAB URINE ORDERABLES [facility] [address] [place] [address], [facility] RDWG [facility] [place] [address] [place] [address] from Last 3 Months or Most Recently Relevant to Health Maintenance Advance Directives For more information, please contact: [phone] * Full Code (Latest Code Status on [...] Due to: Patient not available Care Teams Supervisor Brake Repair Relationship Specialty Start Date End Date Elsewhere, Pcp PCP - General Internal Medicine 10/03/23
--- OUTSIDE RECORDS SUMMARY | 2023-11-05 00:35 | XMS_ITS ---
Author Organization [facility] Address [address] [place] [address] Care Team Providers Care Speech Lang Path Therapist Name Role Phone Unavailable Unavailable Unavailable Surgery Details Not on file Complications Check Surgery Details section. Procedure Estimated Blood Loss Check Surgery Details section. Procedure Findings Check Surgery Details section. Procedure Specimens Taken Check Surgery Details section.
--- OUTSIDE RECORDS SUMMARY | 2023-11-05 00:36 | XMS_ITS | Encounter Summary ---
Author Organization [facility] Address [address] [place] [address] Care Team Providers Care Ob/Gyn Nurse Name Role Phone Doug Lima M.D. Primary Care Provider + [phone] Reason for Referral * Outpatient (Routine) - Closed Specialty Diagnoses / Procedures Referred By Tammi basilio Referred To Contact Diagnoses Stenosis Carotid Artery Bilateral Procedures US Carotid Bilateral Radha Ojeda P.A.-C., M.S. [address] [place] [address] [facility] Referral ID Status Reason Start Date Expiration Date Visits Re quested Visits Authorized [id number] Closed 04/16/2023 04/15/2024 1 1 Reason for Visit * Outpatient (Routine) - Closed Specialty Diagnoses / Procedures Referred By Tammi basilio Referred To Contact Diagnoses Stenosis Carotid Artery Bilateral Procedures US Carotid Radha Lerner P.A.-C., M.S. [address] [place] [address] [facility] Referral ID Status Reason Start Date Expiration Date Visits Re quested Visits Authorized [id number] Closed 04/16/2023 04/15/2024 1 1 Encounter Details Date Type Department Care Team (Latest Contact Info) Description 08/25/2023 12:11 PM CDT - 08/25/2023 11:59 PM CDT Hospital Encounter Department of Radiology, [facility] in [place], [place] [address] [place] [address] Radha Ojeda P.A.-[place] [address] Stenosis Carotid Artery Bilateral Discharge Disposition: Home or Self Care Social History Tobacco Use Types Packs/Day Years Used Date Smoking Tobacco: Never Passive Smoke Exposure: Never Smokeless Tobacco: Never Alcohol Use Standard Drinks/Week Comments Never 2 (1 standard drink = 0.6 oz pur e alcohol) [facility] Utilities Answer Date Recorded In the past 12 months has [employer], gas, oil, or water [employer] threatened to shut off services in your [...] daily. 30 test 07/29/2022 blood-glucose meter (FreeStyle [place]) kit Use as instructed 1 each 07/29/2022 [...] flash glucose scanning reader (FreeStyle Jessica 2 [place]) miscIndications:Diabete s Mellitus Type 2 Ulcer Foot [...] (Latest Contact Info) Description 01/02/2024 11:30 AM SPOT SPRAYER Clinical Communication Virtual Review in [place], [place] [address] [place] [phone] 01/05/2024 9:20 AM SPOT SPRAYER Lab Department of Infusion Therapy in [place], [place] [address] [place] [phone] Vel Vinson M.D., M.B.A. [address] [place] [phone] 01/05/2024 10:15 AM SPOT SPRAYER Appointment Department of Radiology, [facility], in [place], [place] [address] [place] [phone] Vel Vinson M.D., M.B.A. [address] [place] [phone] 01/05/2024 10:45 AM SPOT SPRAYER Comprehensive Visit Section of Infectious Diseases in [place], [place] [address] [place] [phone] Maddy Bingham P.A.-C. [address] [place] [phone] 01/05/2024 11:15 AM SPOT SPRAYER Office Visit Department of Orthopedic Surgery in [address] [phone] Vel Vinson M.D., M.B.A. [address] [place] [phone] 01/06/2024 Hospital Encounter RST ROEI 02 4 AM ADMIT [address] [place] [phone] Vel Vinson M.D., M.B.A. [address] [place] [phone] Scheduled Procedures Name Priority Associated Diagnoses Date/Ti [...] normal distal ICA in accordance with [place] Symptomatic Carotid Endarterectomy Trial (NASCET). Procedure Note [...] the ICA. Velocities in the stent of mlhzohebq327ex/sec with mild narrowing of the stent seen [...] left ICA. Velocities in the stent of ukfxvtxff964qe/sec with mild narrowing of the stent seen [...] Bilateral documented in this encounter Care Teams Ob/Gyn Nurse Relationship Specialty Start Date End Date Doug Lima M.D. [address] [place] [phone] PCP - General Family Medicine 01/28/17 10/02/23 documented as of this encounter
--- OUTSIDE RECORDS SUMMARY | 2023-11-05 00:36 | XMS_ITS | Encounter Summary ---
Author Organization [facility] Address [address] [place] [address] Care Team Providers Care Manager Consumer Name Role Phone Doug Lima M.D. Primary Care Provider + [phone] Encounter Details Date Type Department Care Team (Late st Contact Info) Description 08/27/2023 Clinical Communication Department of Neurologic Surgery in [place], [place] [address] [place] [address] Fantasma Butt M.D. [address] [place] [address] Social History Tobacco Use Types Packs/Day Years Used Date Smoking Tobacco: Never Passive Smoke Exposure: Never Smokeless Tobacco: Never Alcohol Use Standard Drinks/Week Comments Never 2 (1 standard drink = 0.6 oz pur e alcohol) [facility] Utilities Answer Date Recorded In the past 12 months has [employer] gas, oil, or water [employer] threatened to shut off services in your [...] (Latest Contact Info) Description 01/02/2024 11:30 AM PERSONAL ASSISTANT Clinical Communication Virtual Review in [address] [phone] 01/05/2024 9:20 AM PERSONAL ASSISTANT Lab Department of Infusion Therapy in [place], [place] [address] [place] [phone] Vel Vinson M.D., M.B.A. [address] [place] [phone] 01/05/2024 10:15 AM PERSONAL ASSISTANT Appointment Department of Radiology, [facility], in [place], [place] [address] [place] [address] [phone] Vel Vinson M.D., M.B.A. [address] [place] [address] [phone] 01/05/2024 10:45 AM PERSONAL ASSISTANT Comprehensive Visit Section of Infectious Diseases in [place], [place] [address] [place] [phone] Maddy Bingham P.A.-C. [address] [place] [phone] 01/05/2024 11:15 AM PERSONAL ASSISTANT Office Visit Department of Orthopedic Surgery in [place], [place] [address] [place] [phone] Vel Vinson M.D., M.B.A. [address] [place] [phone] 01/06/2024 Hospital Encounter RST ROEI 02 4 AM ADMIT [address] [place] [address] [phone] Vel Vinson M.D., M.B.A. [address] [place] [phone] Scheduled Procedures Name Priority Associated Diagnoses Date/Ti me ARTHROPLASTY REVISION FEMORAL+ACETABULAR HIP Infection Total Hip Arthroplasty Subsequent Right documented as of this encounter Visit Diagnoses Not on filedocumented in this encounter Care Teams Manager Consumer Relationship Specialty Start Date End Date Doug Lima M.D. [address] [place] [phone] PCP - General Family Medicine 01/28/17 10/02/23 documented as of this encounter
--- OUTSIDE RECORDS SUMMARY | 2023-11-05 00:36 | XMS_ITS | Encounter Summary ---
Author Organization [facility] Address [address] [place] [address] Care Team Providers Care Water Supervisor Name Role Phone Doug Lima M.D. Primary Care Provider + [phone] Reason for Referral * Outpatient (Routine) - Authorized Specialty Diagnoses / Procedures Referred By Tammi t Referred To Contact Radiology Fantasma Butt M.D. [address] [place] [phone] Radha Ojeda P.A.-C., M.S. [address] [place] [phone] Referral ID Status Reason Start Date Expiration Date V isits Requested Visits Authorized [id number] Authorized 08/25/2023 02/23/2025 1 1 Scheduling Instructions JONO Rojas - when dr. Butt available. To be scheduled same day as imaging study. 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 200 [place] [address] [facility] Referral ID Status Reason Start Date Expiration Date V isits Requested Visits Authorized [id number] Authorized 08/25/2023 08/24/2024 1 1 Reason for Visit * Outpatient (Routine) - Closed Specialty Diagnoses / Procedures Referred By Tammi basilio Referred To Contact Neurological Surgery Lachelle Crawford M.D. Lanzino, Giuseppe, M.D. [address] [place] [address] Referral ID Status Reason Start Date Expiration Date Visits Re quested Visits Authorized [id number] Closed 06/25/2023 12/24/2024 1 1 Encounter Details Date Type Department Care Team (Late st Contact Info) Description 08/25/2023 3:00 PM CDT Office Visit Department of Neurologic Surgery in [place], [place] [address] [place] [phone] Fantasma Butt M.D. [address] [place] [phone] Stenosis Carotid Artery Right (Primary Dx); Occlusion Carotid Artery Left Social History Tobacco Use Types Packs/Day Years Used Date Smoking Tobacco: Never Passive Smoke Exposure: Never Smokeless Tobacco: Never Alcohol Use Standard Drinks/Week Comments Never 2 (1 standard drink = 0.6 oz pur e alcohol) [facility] Utilities Answer Date Recorded In the past 12 months has [employer] gas, oil, or water [employer] threatened to shut off services in your [...] (Latest Contact Info) Description 01/02/2024 11:30 AM BOX BUILDER Clinical Communication Virtual Review in [address] [phone] 01/05/2024 9:20 AM BOX BUILDER Lab Department of Infusion Therapy in [address] [phone] Vel Vinson M.D., M.B.A. [address] [place] [phone] 01/05/2024 10:15 AM BOX BUILDER Appointment Department of Radiology, [facility], in [address] [phone] Vel Vinson M.D., M.B.A. [address] [place] [phone] 01/05/2024 10:45 AM BOX BUILDER Comprehensive Visit Section of Infectious Diseases in [address] [phone] Maddy Bingham P.A.-C. [address] [place] [address] [phone] 01/05/2024 11:15 AM BOX BUILDER Office Visit Department of Orthopedic Surgery in [place], [place] [address] [place] [address] Vel Vinson M.D., M.B.A. [address] [place] [phone] 01/06/2024 Hospital Encounter RST ROEI 02 4 AM ADMIT [address] [place] [address] Vel Vinson M.D., M.B.A. [address] [place] [phone] Scheduled Orders Name Type Priority Associated Diagnoses [...] Left documented in this encounter Care Teams Water Supervisor Relationship Specialty Start Date End Date Doug Lima M.D. [address] [place] [phone] PCP - General Family Medicine 01/28/17 10/02/23 documented as of this encounter
--- OUTSIDE RECORDS SUMMARY | 2023-11-05 00:36 | XMS_ITS | Encounter Summary ---
Author Organization [facility] Address [address] [place] [address] Care Team Providers Care Lieutenant Firefighter Name Role Phone Doug Lima M.D. Primary Care Provider + [phone] Encounter Details Date Type Department Care Team (Latest Contact Info) Description 09/24/2023 2:45 PM CDT Clinical Communication Virtual Review in [place], [place] 200 [place] [phone] Social History Tobacco Use Types Packs/Day Years Used Date Smoking Tobacco: Never Passive Smoke Exposure: Never Smokeless Tobacco: Never Tobacco Cessation:Counseling Given: Not Answered Alcohol Use Standard Drinks/Week Comments Never 2 (1 standard drink = 0.6 oz pur e alcohol) [facility] Utilities Answer Date Recorded In the past 12 months has e [employer], gas, oil, or water [employer] threatened to shut off services in your [...] (Latest Contact Info) Description 01/02/2024 11:30 AM HALL CLEANER Clinical Communication Virtual Review in [place], [place] [address] [place] [phone] 01/05/2024 9:20 AM HALL CLEANER Lab Department of Infusion Therapy in [place], [place] [address] [place] [address] Vel Vinson M.D., M.B.A. [address] [place] [phone] 01/05/2024 10:15 AM HALL CLEANER Appointment Department of Radiology, [facility], in [place], [place] [address] [place] [phone] Vel Vinson M.D., M.B.A. [address] [place] [address] [phone] 01/05/2024 10:45 AM HALL CLEANER Comprehensive Visit Section of Infectious Diseases in [place], [place] [address] [place] [address] [phone] Maddy Bingham P.A.-C. [address] [place] [phone] 01/05/2024 11:15 AM HALL CLEANER Office Visit Department of Orthopedic Surgery in [place], [place] [address] [place] [phone] Vel Vinson M.D., M.B.A. [address] [place] [phone] 01/06/2024 Hospital Encounter RST ROEI 02 4 AM ADMIT [address] [place] [address] [phone] Vel Vinson M.D., M.B.A. [address] [place] [address] [phone] Scheduled Procedures Name Priority Associated Diagnoses Date/Ti me ARTHROPLASTY REVISION FEMORAL+ACETABULAR HIP Infection Total Hip Arthroplasty Subsequent Right documented as of this encounter Visit Diagnoses Not on filedocumented in this encounter Care Teams Lieutenant Firefighter Relationship Specialty Start Date End Date Doug Lima M.D. [facility] [place] [phone] PCP - General Family Medicine 01/28/17 10/02/23 documented as of this encounter
--- OUTSIDE RECORDS SUMMARY | 2023-11-05 00:36 | XMS_ITS | Encounter Summary ---
Author Organization [facility] Address [address] [place] [address] Care Team Providers Care Energy Efficient Site Manager Name Role Phone Doug Lima M.D. Primary Care Provider + [phone] Encounter Details Date Type Department Care Team (Late st Contact Info) Description 08/26/2023 Orders Only [facility] Doug Lima M.D. [address] [place] [address] Diabetes Mellitus Type 2 Peripheral Neuropathy (HCC) Social History Tobacco Use Types Packs/Day Years Used Date Smoking Tobacco: Never Passive Smoke Exposure: Never Smokeless Tobacco: Never Alcohol Use Standard Drinks/Week Comments Never 2 (1 standard drink = 0.6 oz pur e alcohol) [facility] Utilities Answer Date Recorded In the past 12 months has e [employer], gas, oil, or water [employer] threatened to shut off services in your [...] (Latest Contact Info) Description 01/02/2024 11:30 AM POTLINE MONITOR Clinical Communication Virtual Review in [place], [place] [address] [place] [address] 01/05/2024 9:20 AM POTLINE MONITOR Lab Department of Infusion Therapy in [place], [place] [address] [place] [address] [phone] Vel Vinson M.D., M.B.A. [address] [place] [phone] 01/05/2024 10:15 AM POTLINE MONITOR Appointment Department of Radiology, [facility], in [place], [place] [address] [place] [address] [phone] Vel Vinson M.D., M.B.A. [address] [place] [phone] 01/05/2024 10:45 AM POTLINE MONITOR Comprehensive Visit Section of Infectious Diseases in [place], [place] [address] [place] [phone] Maddy Bingham P.A.-C. [address] [place] [phone] 01/05/2024 11:15 AM POTLINE MONITOR Office Visit Department of Orthopedic Surgery in [place], [place] [address] [place] [phone] Vel Vinson M.D., M.B.A. [address] [place] [phone] 01/06/2024 Hospital Encounter RST ROEI 02 4 AM ADMIT [address] [place] [address] [phone] Vel Vinson M.D., M.B.A. [address] [place] [phone] Scheduled Procedures Name Priority Associated Diagnoses Date/Ti me ARTHROPLASTY REVISION FEMORAL+ACETABULAR HIP Infection Total Hip Arthroplasty Subsequent Right documented as of this encounter Visit Diagnoses Diagnosis Diabetes Mellitus Type 2 Peripheral Neuropathy (HCC) documented in this encounter Care Teams Energy Efficient Site Manager Relationship Specialty Start Date End Date Doug Lima M.D. [address] [phone] PCP - General Family Medicine 01/28/17 10/02/23 documented as of this encounter
--- OUTSIDE RECORDS SUMMARY | 2023-11-05 00:36 | XMS_ITS | Encounter Summary ---
Author Organization [facility] Address [address] [place] [address] Care Team Providers Care Flatwork Presser Name Role Phone Doug Lima M.D. Primary Care Provider + [phone] Reason for Visit * Outpatient (Routine) - Closed Specialty Diagnoses / Procedures Referred By Tammi basilio Referred To Contact Orthopedic Surgery Xavi Hicks M.D. [address] [place] [phone] Vel Vinson M.D., M.B.A. [address] [place] [phone] Referral ID Status Reason Start Date Expiration Date Visits Re quested Visits Authorized [id number] Closed 05/16/2023 11/14/2024 1 1 Encounter Details Date Type Department Care Team (Late st Contact Info) Description 08/25/2023 8:15 AM CDT Office Visit Department of Orthopedic Surgery in [place], [place] [address] [place] [phone] Vel Vinson M.D., M.B.A. 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); Stroke (HCC) Social History Tobacco Use Types Packs/Day Years Used Date Smoking Tobacco: Never Passive Smoke Exposure: Never Smokeless Tobacco: Never Alcohol Use Standard Drinks/Week Comments Never 2 (1 standard drink = 0.6 oz pur e alcohol) [facility] Utilities Answer Date Recorded In the [...] (Latest Contact Info) Description 01/02/2024 11:30 AM CUSTOMER OPERATIONS REPRESENTATIVE Clinical Communication Virtual Review in [place], [place] 200 [place] [phone] 01/05/2024 9:20 AM CUSTOMER OPERATIONS REPRESENTATIVE Lab Department of Infusion Therapy in [address] [phone] Vel Vinson M.D., M.B.A. [address] [place] [address] [phone] 01/05/2024 10:15 AM CUSTOMER OPERATIONS REPRESENTATIVE Appointment Department of Radiology, [facility], in [place], [place] [address] [place] [address] [phone] Vel Vinson M.D., M.B.A. [address] [place] [phone] 01/05/2024 10:45 AM CUSTOMER OPERATIONS REPRESENTATIVE Comprehensive Visit Section of Infectious Diseases in [place], [place] [address] [place] [address] [phone] Maddy Bingham P.A.-C. [address] [place] [address] [phone] 01/05/2024 11:15 AM CUSTOMER OPERATIONS REPRESENTATIVE Office Visit Department of Orthopedic Surgery in [place], [place] [address] [place] [phone] Vel Vinson M.D., M.B.A. [address] [place] [phone] 01/06/2024 Hospital Encounter RST ROEI 02 4 AM ADMIT [address] [place] [phone] Vel Vinson M.D., M.B.A. [address] [place] [address] [phone] Scheduled Procedures Name Priority Associated Diagnoses Date/Ti me ARTHROPLASTY REVISION FEMORAL+ACETABULAR HIP Infection Total Hip Arthroplasty Subsequent Right documented as of this encounter Visit Diagnoses Diagnosis Infection Total Hip Arthroplasty Subsequent Right- Primary Stroke (HCC) documented in this encounter Care Teams Flatwork Presser Relationship Specialty Start Date End Date Doug Lima M.D. [address] [place] [phone] PCP - General Family Medicine 01/28/17 10/02/23 documented as of this encounter
--- OUTSIDE RECORDS SUMMARY | 2023-11-05 00:36 | XMS_ITS | Encounter Summary ---
Author Organization [facility] Address [address] [place] [address] Care Team Providers Care Memorial Marker Designer Name Role Phone Doug Lima M.D. 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 200 [place] [address] [facility] Referral ID Status Reason Start Date Expiration Date Visits Re quested Visits Authorized [id number] Closed 08/27/2023 08/26/2024 1 1 Encounter Details Date Type Department Care Team (Latest Contact Info) Description 08/28/2023 11:00 AM CDT Internal E-Consult Department of Vascular Medicine in [place], [place] [address] [place] [phone] Gaudencio Escobedo M.D. 200 [place] [phone] Occlusion Carotid Artery Left (Primary Dx); Stenosis Carotid Artery Right; Peripheral Arterial Disease (HCC); Stroke (HCC); Infection Total Hip Arthroplasty Subsequent Right; Hemiplegia Flaccid Dominant Side Right (HCC) Social History Tobacco Use Types Packs/Day Years Used Date Smoking Tobacco: Never Passive Smoke Exposure: Never Smokeless Tobacco: Never Alcohol Use Standard Drinks/Week Comments Never 2 (1 standard drink = 0.6 oz pur e alcohol) [facility] Utilities Answer Date Recorded In the past 12 months has e [employer], gas, oil, or water [employer] threatened to shut off services in your [...] based entirely upon information available in the [facility] electronic medical record. CHIEF COMPLAINT / REASON [...] continued after he was dismissed to a half-way facility: Hospital dismissal summary (Dr. Hill, 06/25/2023): [...] (Latest Contact Info) Description 01/02/2024 11:30 AM VISUAL ARTIST Clinical Communication Virtual Review in [place], [place] 200 [place] [phone] 01/05/2024 9:20 AM VISUAL ARTIST Lab Department of Infusion Therapy in [place], [place] [address] [place] [phone] Vel Vinson M.D., M.B.A. [address] [place] [address] [phone] 01/05/2024 10:15 AM VISUAL ARTIST Appointment Department of Radiology, [facility], in [place], [place] [address] [place] [phone] Vel Vinson M.D., M.B.A. [address] [place] [phone] 01/05/2024 10:45 AM VISUAL ARTIST Comprehensive Visit Section of Infectious Diseases in [place], [place] [address] [place] [phone] Maddy Bingham P.A.-C. [address] [place] [phone] 01/05/2024 11:15 AM VISUAL ARTIST Office Visit Department of Orthopedic Surgery in [place], [place] [address] [place] [phone] Vel Vinson M.D., M.B.A. [address] [place] [address] [phone] 01/06/2024 Hospital Encounter RST ROEI 02 4 AM ADMIT [address] [place] [address] [phone] Vel Vinson M.D., M.B.A. 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 [address] [place] [address] [phone] PCP - General Family Medicine 01/28/17 10/02/23 documented as of this encounter
--- OUTSIDE RECORDS SUMMARY | 2023-11-05 00:36 | XMS_ITS | Encounter Summary ---
Author Organization [facility] Address [address] [place] [address] Care Team Providers Care Wort Extractor Name Role Phone Doug Lima M.D. Primary Care Provider + [phone] Encounter Details Date Type Department Care Team ([facility] st Contact Info) Description 09/08/2023 Orders Only Section of Infectious Diseases in [place], [place] [address] [place] [phone] Storm Nicole M.D. 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) Social History Tobacco Use Types Packs/Day Years Used Date Smoking Tobacco: Never Passive Smoke Exposure: Never Smokeless Tobacco: Never Alcohol Use Standard Drinks/Week Comments Never 2 (1 standard drink = 0.6 oz pur e alcohol) [facility] Utilities Answer Date Recorded In the past 12 months has [email or web address], oil, or water [employer] threatened to shut off services in your [...] (Latest Contact Info) Description 01/02/2024 11:30 AM FRONT OFFICE REPRESENTATIVE Clinical Communication Virtual Review in [place], [place] [address] [place] [phone] 01/05/2024 9:20 AM FRONT OFFICE REPRESENTATIVE Lab Department of Infusion Therapy in [place], [place] [address] [place] [address] [phone] Vel Vinson M.D., M.B.A. [address] [place] [phone] 01/05/2024 10:15 AM FRONT OFFICE REPRESENTATIVE Appointment Department of Radiology, [facility], in [place], [place] [address] [place] [phone] Vel Vinson M.D., M.B.A. [address] [place] [phone] 01/05/2024 10:45 AM FRONT OFFICE REPRESENTATIVE Comprehensive Visit Section of Infectious Diseases in [place], [place] [address] [place] [phone] Maddy Bingham P.A.-C. [address] [place] [address] [phone] 01/05/2024 11:15 AM FRONT OFFICE REPRESENTATIVE Office Visit Department of Orthopedic Surgery in [place], [place] [address] [place] [phone] Vel Vinson M.D., M.B.A. [address] [place] [address] [phone] 01/06/2024 Hospital Encounter RST ROEI 02 4 AM ADMIT [address] [place] [address] [phone] Vel Vinson M.D., M.B.A. [address] [place] [phone] Scheduled Orders Name Type Priority Associated Diagnoses [...] Primary documented in this encounter Care Teams Wort Extractor Relationship Specialty Start Date End Date Doug Lima M.D. [address] [place] [phone] PCP - General Family Medicine 01/28/17 10/02/23 documented as of this encounter
--- OUTSIDE RECORDS SUMMARY | 2023-11-05 00:36 | XMS_ITS | Encounter Summary ---
Author Organization [facility] Address 200 [place] [address] Care Team Providers Care Seat Scooper Machine Name Role Phone Doug Lima M.D. Primary Care Provider + [phone] Reason for Referral * Outpatient (Routine) - Closed Specialty Diagnoses / Procedures Referred By Contac t Referred To Contact Diagnoses Infection Total Hip Arthroplasty Subsequent Right Procedures DX Hip And Pelvis Right 2-3 Views Xavi Hicks M.D. 200 [place] [address] [facility] Referral ID Status Reason Start Date Expiration Date Visits Re quested Visits Authorized [id number] Closed 05/16/2023 05/15/2024 1 1 Reason for Visit * Outpatient (Routine) - Closed Specialty Diagnoses / Procedures Referred By Contac t Referred To Contact Diagnoses Infection Total Hip Arthroplasty Subsequent Right Procedures DX Hip And Pelvis Right 2-3 Views Xavi Hicks M.D. 200 [place] [address] [facility] Referral ID Status Reason Start Date Expiration Date Visits Re quested Visits Authorized [id number] Closed 05/16/2023 05/15/2024 1 1 Encounter Details Date Type Department Care Team (Latest Contact Info) Description 08/25/2023 6:43 AM CDT - 08/25/2023 12:10 PM CDT Hospital Encounter Department of Radiology, [facility], in [place], [place] [address] [place] [address] Xavi Hicks M.D. [address] [place] [address] Infection Total Hip Arthroplasty Subsequent Right Discharge Disposition: Home or Self Care Social History Tobacco Use Types Packs/Day Years Used Date Smoking Tobacco: Never Passive Smoke Exposure: Never Smokeless Tobacco: Never Alcohol Use Standard Drinks/Week Comments Never 2 (1 standard drink = 0.6 oz pur e alcohol) [facility] Utilities Answer Date Recorded In the past 12 months has e electric, gas, oil, or water [employer] threatened to shut off services in your [...] daily. 30 test 07/29/2022 blood-glucose meter (FreeStyle [place]) kit Use as instructed 1 each 07/29/2022 [...] glucose scanning reader (FreeStyle Jessica 2 [place]) miscIndications:Diabete s Mellitus Type 2 Ulcer Foot [...] (Latest Contact Info) Description 01/02/2024 11:30 AM SHEETMETAL PATTERNMAKER Clinical Communication Virtual Review in [place], [place] [address] [place] [phone] 01/05/2024 9:20 AM SHEETMETAL PATTERNMAKER Lab Department of Infusion Therapy in [place], [place] [address] [place] [phone] Vel Vinson M.D., M.B.A. [address] [place] [phone] 01/05/2024 10:15 AM SHEETMETAL PATTERNMAKER Appointment Department of Radiology, [facility], in [place], [place] [address] [place] [phone] Vel Vinson M.D., M.B.A. [address] [place] [phone] 01/05/2024 10:45 AM SHEETMETAL PATTERNMAKER Comprehensive Visit Section of Infectious Diseases in [place], [place] [address] [place] [phone] Maddy Bingham P.A.-C. [address] [place] [phone] 01/05/2024 11:15 AM SHEETMETAL PATTERNMAKER Office Visit Department of Orthopedic Surgery in [place], [place] [address] [place] [phone] Vel Vinson M.D., M.B.A. [address] [place] [phone] 01/06/2024 Hospital Encounter RST ROEI 02 4 AM ADMIT [address] [place] [phone] Vel Vinson M.D., M.B.A. [address] [place] [phone] Scheduled Procedures Name Priority Associated Diagnoses Date/Ti [...] Right documented in this encounter Care Teams Seat Scooper Machine Relationship Specialty Start Date End Date Doug Lima M.D. [address] [place] [phone] PCP - General Family Medicine 01/28/17 10/02/23 documented as of this encounter
--- OUTSIDE RECORDS SUMMARY | 2023-11-05 00:36 | XMS_ITS | Encounter Summary ---
Author Organization [facility] Address [address] [place] [address] Care Team Providers Care Client Coordinator Name Role Phone Doug Lima M.D. 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 [address] [place] [phone] [facility] Referral ID Status Reason Start Date Expiration Date Visits Re quested Visits Authorized [id number] Closed 08/27/2023 08/26/2024 1 1 Encounter Details Date Type Department Care Team (Late st Contact Info) Description 08/27/2023 Orders Only Department of Neurologic Surgery in [place], [place] [address] [place] [phone] Rosalie Sosa R.N., CNRN [address] [place] [phone] Stenosis Carotid Artery Right (Primary Dx); Occlusion Carotid Artery Left; Peripheral Arterial Disease (HCC); Stroke (HCC); Infection Total Hip Arthroplasty Subsequent Right; Hemiplegia Flaccid Dominant Side Right (HCC) Social History Tobacco Use Types Packs/Day Years Used Date Smoking Tobacco: Never Passive Smoke Exposure: Never Smokeless Tobacco: Never Alcohol Use Standard Drinks/Week Comments Never 2 (1 standard drink = 0.6 oz pur e alcohol) [facility] Utilities Answer Date Recorded In the past [...] (Latest Contact Info) Description 01/02/2024 11:30 AM ROUTE PROCESS ADMINISTRATOR Clinical Communication Virtual Review in [place], [place] 200 [place] [address] 01/05/2024 9:20 AM ROUTE PROCESS ADMINISTRATOR Lab Department of Infusion Therapy in [address] [phone] Vel Vinson M.D., M.B.A. [address] [place] [phone] 01/05/2024 10:15 AM ROUTE PROCESS ADMINISTRATOR Appointment Department of Radiology, [facility], in [address] [phone] Vel Vinson M.D., M.B.A. [address] [place] [phone] 01/05/2024 10:45 AM ROUTE PROCESS ADMINISTRATOR Comprehensive Visit Section of Infectious Diseases in [address] [phone] Maddy Bingham P.A.-C. [address] [place] [phone] 01/05/2024 11:15 AM ROUTE PROCESS ADMINISTRATOR Office Visit Department of Orthopedic Surgery in [address] [phone] Vel Vinson M.D., M.B.A. [address] [place] [address] 01/06/2024 Hospital Encounter RST ROEI 02 4 AM ADMIT [address] [place] [address] Vel Vinson M.D., M.B.A. [address] [place] [address] Scheduled Procedures Name Priority Associated Diagnoses Date/Ti [...] Primary documented in this encounter Care Teams Client Coordinator Relationship Specialty Start Date End Date Doug Lima M.D. [address] [place] [phone] PCP - General Family Medicine 01/28/17 10/02/23 documented as of this encounter
--- OUTSIDE RECORDS SUMMARY | 2023-11-05 00:36 | XMS_ITS | Encounter Summary ---
Author Organization [facility] Address [address] [place] [address] Care Team Providers Care Sales Enablement Manager Name Role Phone Doug Lima M.D. Primary Care Provider + [phone] Encounter Details Date Type Department Care Team (Late st Contact Info) Description 10/01/2023 Abstract [place], [place] [address] [place] [address] Provider, Historical Social History Tobacco Use Types Packs/Day Years Used Date Smoking Tobacco: Never Passive Smoke Exposure: Never Smokeless Tobacco: Never Alcohol Use Standard Drinks/Week Comments Never 2 (1 standard drink = 0.6 oz pur e alcohol) [facility] Utilities Answer Date Recorded In the past 12 months has e [employer], gas, oil, or water [employer] threatened to shut off services in your [...] (Latest Contact Info) Description 01/02/2024 11:30 AM PUMP SERVICER Clinical Communication Virtual Review in [place], [place] 200 [place] [address] 01/05/2024 9:20 AM PUMP SERVICER Lab Department of Infusion Therapy in [address] [phone] Vel Vinson M.D., M.B.A. [address] [place] [phone] 01/05/2024 10:15 AM PUMP SERVICER Appointment Department of Radiology, [facility], in [place], [place] [address] [place] [phone] Vel Vinson M.D., M.B.A. [address] [place] [phone] 01/05/2024 10:45 AM PUMP SERVICER Comprehensive Visit Section of Infectious Diseases in [place], [place] [address] [place] [phone] Maddy Bingham P.A.-C. [address] [place] [phone] 01/05/2024 11:15 AM PUMP SERVICER Office Visit Department of Orthopedic Surgery in [place], [place] [address] [place] [phone] Vel Vinson M.D., M.B.A. [address] [place] [phone] 01/06/2024 Hospital Encounter RST ROEI 02 4 AM ADMIT [address] [place] [phone] Vel Vinson M.D., M.B.A. 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 [address] [place] [phone] PCP - General Family Medicine 01/28/17 10/02/23 documented as of this encounter
--- OUTSIDE RECORDS SUMMARY | 2023-11-05 00:36 | XMS_ITS | Encounter Summary ---
Author Organization [facility] Address [address] [place] [address] Care Team Providers Care Hospital Laboratory Technician Name Role Phone Doug Lima M.D. Primary Care Provider + [phone] Encounter Details Date Type Department Care Team (Late st Contact Info) Description 08/01/2023 Abstract [place], [place] [address] [place] [address] Provider, Historical Social History Tobacco Use Types Packs/Day Years Used Date Smoking Tobacco: Never Passive Smoke Exposure: Never Smokeless Tobacco: Never Alcohol Use Standard Drinks/Week Comments Never 2 (1 standard drink = 0.6 oz pur e alcohol) [facility] Utilities Answer Date Recorded In the past 12 months has e [employer], gas, oil, or water [employer] threatened to shut off services in your [...] your living situation today? I have a [facility] place to live 07/16/2023 Sex and Gender Information Value Date Recorded Sex Assigned at Male 07/26/2022 1:30 PM CDT Gender Identity Male 07/26/2022 1:32 PM CDT Sexual Orientation Straight 07/26/2022 1: 32 PM CDT documented as of this encounter Plan of Treatment Upcoming Encounters Date Type Department Care Team (Latest Contact Info) Description 01/02/2024 11:30 AM FORESTRY FIRE AID Clinical Communication Virtual Review in [place], [place] [address] [place] [address] 01/05/2024 9:20 AM FORESTRY FIRE AID Lab Department of Infusion Therapy in [place], [place] [address] [place] [address] Vel Vinson M.D., M.B.A. [address] [place] [phone] 01/05/2024 10:15 AM FORESTRY FIRE AID Appointment Department of Radiology, [facility], in [place], [place] [address] [place] [phone] Vel Vinson M.D., M.B.A. [address] [place] [phone] 01/05/2024 10:45 AM FORESTRY FIRE AID Comprehensive Visit Section of Infectious Diseases in [place], [place] [address] [place] [phone] Maddy Bingham P.A.-C. [address] [place] [phone] 01/05/2024 11:15 AM FORESTRY FIRE AID Office Visit Department of Orthopedic Surgery in [place], [place] [address] [place] [phone] Vel Vinson M.D., M.B.A. [address] [place] [phone] 01/06/2024 Hospital Encounter RST ROEI 02 4 AM ADMIT [address] [place] [phone] Vel Vinson M.D., M.B.A. [address] [place] [phone] Scheduled Procedures Name Priority Associated Diagnoses Date/Ti me ARTHROPLASTY REVISION FEMORAL+ACETABULAR HIP Infection Total Hip Arthroplasty Subsequent Right documented as of this encounter Visit Diagnoses Not on filedocumented in this encounter Care Teams Hospital Laboratory Technician Relationship Specialty Start Date End Date Doug Lima M.D. [address] [place] [phone] PCP - General Family Medicine 01/28/17 10/02/23 documented as of this encounter
--- OUTSIDE RECORDS SUMMARY | 2023-11-05 00:36 | XMS_ITS | Encounter Summary ---
Author Organization [facility] Address 200 [place] [address] Care Team Providers Care Die Grinder Name Role Phone Doug Lima M.D. Primary Care Provider + [phone] Reason for Visit * Outpatient (Routine) - Closed Specialty Diagnoses / Procedures Referred By Contac t Referred To Contact Infectious Diseases Diagnoses Infection Total Hip Arthroplasty Subsequent Right Sylvester Robb P.A.-C. 200 [place] [address] [facility] Referral ID Status Reason Start Date Expiration Date Visits Re quested Visits Authorized [id number] Closed 05/27/2023 11/25/2024 1 1 Encounter Details Date Type Department Care Team (Latest Contact Info) Description 08/25/2023 9:00 AM CDT Comprehensive Visit Section of Infectious Diseases in [place], [place] 200 [place] [phone] Sylvester Robb P.A.-C. 200 [place] [phone] Storm Nicole M.D. 200 [place] [phone] Infection Total Hip Arthroplasty Subsequent Right (Primary Dx) Social History Tobacco Use Types Packs/Day Years Used Date Smoking Tobacco: Never Passive Smoke Exposure: Never Smokeless Tobacco: Never Alcohol Use Standard Drinks/Week Comments Never 2 (1 standard drink = 0.6 oz pur e alcohol) [facility] Utilities Answer Date Recorded In the past 12 months has [facility] electric, gas, oil, or water [...] 58 y.o. Birthdate: 1965 Sex: male Address: [address] [place] [phone] Referring Provider: Sylvester Robb P.A.-C. REASON FOR [...] for convenience === June 24, 2023 [facility] service pager at [phone] is following Estevan Lester for chronic right [...] his hypotension. Neurology was reengaged in the hockey scout of 05/23 due to new global aphasia [...] daily for 90 days, then switch to [id number] twice daily indefinitely as monotherapy. If patient [...] 25, 2023 The patient currently staying at [address] [place] [address] contact information under discussion he stateshe is [...] daily. 30 test 0 blood-glucose meter (FreeStyle [place]) kit Use as instructed 1 each 0 [...] flash glucose scanning reader (FreeStyle Jessica 2 [place]) misc 1 each (1 Device total) continuously.1 [...] removal of hardware, spacer placement on 05/23/2023 (Kaerl). Patient required wound closure with right thigh [...] Selected Services Address Phone Fax Patient Preferred [facility] [address] [facility] [address] [phone] PLAN Continue to observe off antimicrobials Follow-up [...] Spent 35 minutes in total time both dign-uy-znal and non nycl-ng-chtt documented in this encounter Plan of Treatment Upcoming Encounters Date Type Department Care Team (Latest Contact Info) Description 01/02/2024 11:30 AM INDUSTRIAL ARTS TEACHER Clinical Communication Virtual Review in [place], [place] 200 [place] [phone] 01/05/2024 9:20 AM INDUSTRIAL ARTS TEACHER Lab Department of Infusion Therapy in [place], [place] [address] [place] [phone] Vel Vinson M.D., M.B.A. [address] [place] [phone] 01/05/2024 10:15 AM INDUSTRIAL ARTS TEACHER Appointment Department of Radiology, [facility], in [place], [place] [address] [place] [phone] Vel Vinson M.D., M.B.A. [address] [place] [phone] 01/05/2024 10:45 AM INDUSTRIAL ARTS TEACHER Comprehensive Visit Section of Infectious Diseases in [address] [phone] Maddy Bingham P.A.-C. [address] [place] [phone] 01/05/2024 11:15 AM INDUSTRIAL ARTS TEACHER Office Visit Department of Orthopedic Surgery in [address] [phone] Vel Vinson M.D., M.B.A. [address] [place] [phone] 01/06/2024 Hospital Encounter RST ROEI 02 4 AM ADMIT [address] [place] [phone] Vel Vinson M.D., M.B.A. [address] [place] [phone] Scheduled Procedures Name Priority Associated Diagnoses Date/Ti [...] CDT Storm Nicole M.D. LAB BLOOD ADD-ON [facility] [address] [place] [address], [facility] [address] [place] [address] * Creatinine with Estimated GFR (08/25/2023 8:11 AM CDT) Creatinine 1.06 0.74 - 1.35 mg/dL 08/25/2023 9:16 AM CDT DTL Estimated GFR (eGFR) 81 >=60 mL/min/BSA 08/25/2023 9:16 AM CDT DTL Comment: Estimated GFR calculated using the 2020 CKD_EPI creatinine equation. Blood (Blood, Venous) 08/25/2023 8:11 AM CDT 08/25/2023 8:55 AM CDT Storm Nicole M.D. LAB BLOOD ADD-ON [facility] [address] [place] [address], [facility] 200 [place] [address] * CRP (C-Reactive Protein) (08/25/2023 8:11 AM CDT) C-Reactive Protein (CRP), S 3.2 <5.0 mg/L 08/25/2023 9:16 AM CDT DTL Blood (Blood, Venous) 08/25/2023 8:11 AM CDT 08/25/2023 8:55 AM CDT Storm Nicole M.D. LAB BLOOD ADD-ON Performing Organization Address City/[facility]/ZIP Co de Phone Number [facility] [address] [place] [address], [facility] 200 [place] [address] * (ABNORMAL) Sedimentation Rate (08/25/2023 8:11 AM CDT) Pathologist [facility] Sedimentation Rate, B 27(H) 2 - 20 mm/h 08/25/2023 10:12 AM CDT DTL Blood (Blood, Venous) 08/25/2023 8:11 AM CDT 08/25/2023 8:51 AM CDT Storm Nicole M.D. LAB BLOOD ADD-ON [facility] [address] [place] [address], [facility] [address] [place] [address] * (ABNORMAL) CBC with Differential, Blood (08/25/2023 8:11 AM CDT) [facility] Hemoglobin 11.9(L) 13.2 - 16.6 g/dL 08/25/2023 [...] - 6.45 x10(9)/L 08/25/2023 9:31 AM CDT [facility] Lymphocytes 1.88 0.95 - 3.07 [...] Nicole M.D. LAB BLOOD ADD-ON [facility] [address] [place] [address], [facility] [address] [place] [address] [facility] [address] [place] [address] documented in this encounter Visit Diagnoses Diagnosis Infection Total Hip Arthroplasty Subsequent Right- Primary documented in this encounter Care Teams Die Grinder Relationship Specialty Start Date End Date Doug Lima M.D. [address] [place] [phone] PCP - General Family Medicine 01/28/17 10/02/23 documented as of this encounter
--- OUTSIDE RECORDS SUMMARY | 2023-11-05 00:36 | XMS_ITS | Encounter Summary ---
Author Organization [facility] Address [address] [place] [address] Care Team Providers Care Supervisor Engine Assembly Name Role Phone Doug Lima M.D. Primary Care Provider + [phone] Encounter Details Date Type Department Care Team (Late st Contact Info) Description 07/02/2023 Clinical Communication Division of Plastic Surgery in [place], [place] [address] [place] [address] Mike Cheng M.D. [address] [place] [address] Social History Tobacco Use Types Packs/Day Years Used Date Smoking Tobacco: Never Passive Smoke Exposure: Never Smokeless Tobacco: Never Alcohol Use Standard Drinks/Week Comments Never 2 (1 standard drink = 0.6 oz pur e alcohol) [facility] Utilities Answer Date Recorded In the past 12 months has [employer] gas, oil, or water [employer] threatened to shut off services in your [...] your living situation today? I have a [facility] place to live 07/16/2023 Sex and Gender Information Value Date Recorded Sex Assigned at Male 07/26/2022 1:30 PM CDT Gender Identity Male 07/26/2022 1:32 PM CDT Sexual Orientation Straight 07/26/2022 1: 32 PM CDT documented as of this encounter Plan of Treatment Upcoming Encounters Date Type Department Care Team (Latest Contact Info) Description 01/02/2024 11:30 AM PROFESSOR OF ENVIRONMENTAL STUDIES Clinical Communication Virtual Review in [place], [place] [address] [place] [phone] 01/05/2024 9:20 AM PROFESSOR OF ENVIRONMENTAL STUDIES Lab Department of Infusion Therapy in [place], [place] [address] [place] [phone] Vel Vinson M.D., M.B.A. [address] [place] [phone] 01/05/2024 10:15 AM PROFESSOR OF ENVIRONMENTAL STUDIES Appointment Department of Radiology, [facility], in [place], [place] [address] [place] [phone] Vel Vinson M.D., M.B.A. [address] [place] [phone] 01/05/2024 10:45 AM PROFESSOR OF ENVIRONMENTAL STUDIES Comprehensive Visit Section of Infectious Diseases in [place], [place] [address] [place] [phone] Maddy Bingham P.A.-C. [address] [place] [phone] 01/05/2024 11:15 AM PROFESSOR OF ENVIRONMENTAL STUDIES Office Visit Department of Orthopedic Surgery in [place], [place] [address] [place] [phone] Vel Vinson M.D., M.B.A. [address] [place] [phone] 01/06/2024 Hospital Encounter RST ROEI 02 4 AM ADMIT [address] [place] [phone] Vel Vinson M.D., M.B.A. 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 [address] [place] [phone] PCP - General Family Medicine 01/28/17 10/02/23 documented as of this encounter
--- OUTSIDE RECORDS SUMMARY | 2023-11-05 00:36 | XMS_ITS | Encounter Summary ---
Author Organization [facility] Address [address] [place] [address] Care Team Providers Care Supervisor [employer] Name Role Phone Doug Lima M.D. Primary Care Provider + [phone] Reason for Visit * Reason Onset Date Comments Pre-visit Intake 08/20/2023 Encounter Details Date Type Department Care Team (Latest Contact Info) Description 08/20/2023 12:00 PM CDT Clinical Communication Virtual Review in [place], [place] [address] [place] [phone] Pre-visit Intake Social History Tobacco Use Types Packs/Day Years Used Date Smoking Tobacco: Never Passive Smoke Exposure: Never Smokeless Tobacco: Never Alcohol Use Standard Drinks/Week Comments Never 2 (1 standard drink = 0.6 oz pur e alcohol) [facility] Utilities Answer Date Recorded In the past 12 months has e [employer], gas, oil, or water [employer] threatened to shut off services in your [...] (Latest Contact Info) Description 01/02/2024 11:30 AM INSULATION WORKER INTERIOR SURFACE Clinical Communication Virtual Review in [place], [place] [address] [place] [phone] 01/05/2024 9:20 AM INSULATION WORKER INTERIOR SURFACE Lab Department of Infusion Therapy in [place], [place] [address] [place] [phone] Vel Vinson M.D., M.B.A. [address] [place] [phone] 01/05/2024 10:15 AM INSULATION WORKER INTERIOR SURFACE Appointment Department of Radiology, [facility], in [place], [place] [address] [place] [phone] Vel Vinson M.D., M.B.A. [address] [place] [phone] 01/05/2024 10:45 AM INSULATION WORKER INTERIOR SURFACE Comprehensive Visit Section of Infectious Diseases in [place], [place] [address] [place] [phone] Maddy Bingham P.A.-C. [address] [place] [phone] 01/05/2024 11:15 AM INSULATION WORKER INTERIOR SURFACE Office Visit Department of Orthopedic Surgery in [place], [place] [address] [place] [phone] Vel Vinson M.D., M.B.A. [address] [place] [phone] 01/06/2024 Hospital Encounter [facility] 02 4 AM ADMIT [address] [place] [phone] Vel Vinson M.D., M.B.A. 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 [address] [place] [phone] PCP - General Family Medicine 01/28/17 10/02/23 documented as of this encounter
--- OUTSIDE RECORDS SUMMARY | 2023-11-05 00:37 | XMS_ITS ---
Author Organization [facility] Address [address] [place] [address] Care Team Providers Care Separations Scientist Name Role Phone Elsewhere, Pcp Primary Care Provider Unavailabl e OPAT Status:Pending (Paused) Start date:05/27/2023 Enrollment date:06/06/2023 Related service episodes:Adult OPAT Service Episode (Declined) Continued Care and Services Coordination
--- OUTSIDE RECORDS SUMMARY | 2023-11-05 00:37 | XMS_ITS | Encounter Summary ---
Author Organization [facility] Address [address] [place] [address] Care Team Providers Care Manager Progressive Care Name Role Phone Doug Lima M.D. Primary Care Provider + [phone] Reason for Visit * Reason Onset Date Comments Communication 07/01/2023 Encounter Details Date Type Department Care Team (Late st Contact Info) Description 07/01/2023 Clinical Communication Division of Plastic Surgery in [place], [place] [address] [place] [phone] Mike Cheng M.D. [address] [place] [phone] Communication Social History Tobacco Use Types Packs/Day Years Used Date Smoking Tobacco: Never Passive Smoke Exposure: Never Smokeless Tobacco: Never Alcohol Use Standard Drinks/Week Comments Never 2 (1 standard drink = 0.6 oz pur e alcohol) [facility] Utilities Answer Date Recorded In the past 12 months has [employer], gas, oil, or water [employer] threatened to shut off services in your [...] your living situation today? I have a [facility] place to live 07/16/2023 Sex and Gender Information Value Date Recorded Sex Assigned at Male 07/26/2022 1:30 PM CDT Gender Identity Male 07/26/2022 1:32 PM CDT Sexual Orientation Straight 07/26/2022 1: 32 PM CDT documented as of this encounter Plan of Treatment Upcoming Encounters Date Type Department Care Team (Latest Contact Info) Description 01/02/2024 11:30 AM PLATFORM CONSULTANT Clinical Communication Virtual Review in [place], [place] [address] [place] [phone] 01/05/2024 9:20 AM PLATFORM CONSULTANT Lab Department of Infusion Therapy in [place], [place] [address] [place] [phone] Vel Vinson M.D., M.B.A. [address] [place] [phone] 01/05/2024 10:15 AM PLATFORM CONSULTANT Appointment Department of Radiology, [facility], in [place], [place] [address] [place] [address] [phone] Vel Vinson M.D., M.B.A. [address] [place] [phone] 01/05/2024 10:45 AM PLATFORM CONSULTANT Comprehensive Visit Section of Infectious Diseases in [address] [phone] Maddy Bingham P.A.-C. [address] [place] [address] [phone] 01/05/2024 11:15 AM PLATFORM CONSULTANT Office Visit Department of Orthopedic Surgery in [address] [phone] Vel Vinson M.D., M.B.A. [address] [place] [phone] 01/06/2024 Hospital Encounter [facility] 02 4 AM ADMIT [address] [place] [address] [phone] Vel Vinson M.D., M.B.A. 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 [address] [place] [phone] PCP - General Family Medicine 01/28/17 10/02/23 documented as of this encounter
== END 2023-11-03 03:42 | disposition home or self-care (01) ==
LOC: AMB 11-05 00:33
PROVIDERS: PCP Family Medicine; Visit Provider Student in an Organized Health Care Education/Training Program
DX: K92.0 Hematemesis (principal); K92.1 Melena
CPT/HCPCS: A0425; A0427

== ENCOUNTER 2023-11-03 04:04 | Emergency (ER) | payer OTHER, SELFPAY ==
[2023-11-03] VITALS (37 sets, daily range): BP systolic 56–122; BP diastolic 25–95; PULSE 59–97; RESP 14–20; TEMP 36.6–37.3; O2SAT 93–99
--- NOTE | 2023-11-03 04:10 | CRLHL7_ITS ---
For Patients: As a result of the 21st Century Cures Act, medical imaging exams and procedure reports are released immediately into your electronic medical record. You may view this report before your referring provider. If you have questions, please contact your health care provider. INDICATION: GI bleeding. COMPARISON: None. TECHNIQUE: CT angiogram abdomen and pelvis without and with contrast, GI bleed protocol to include pre-contrast, arterial phase (CT angiography), and portal venous phase imaging. Multiplanar axial, coronal, and sagittal reformats are included. MIP images to improve detection of arterial pathology. Intravenous contrast: 95 ml Isovue 370. FINDINGS: Aorta and its branches: Well-timed contrast bolus. Normal caliber of the abdominal aorta. No intramural hematoma. Heavy calcified and noncalcified atherosclerotic plaques. No penetrating atherosclerotic ulcers. No aortic dissection. The mesenteric vessels are patent without critical stenosis. The common, internal, and external iliac arteries are patent without critical stenosis. The common femoral arteries are patent without critical stenosis. GI: Large amount of ingested material in the stomach. No dilated or inflamed appearing small bowel or colon. No active GI bleeding seen on CT. Ewjnqtgp-cc-uoctl stool burden. The appendix is normal. Liver: Normal. No mass. Gallbladder and bile ducts: Cholelithiasis. The gallbladder is not fully distended. No CT findings of cholecystitis. No bile duct dilation. Pancreas: Normal. Spleen: Normal. Adrenal glands: Normal. Kidneys: Normal parenchyma. No cyst or solid mass. No calculi. No urinary tract dilation. Urinary bladder: Only partially filled. Pelvis: No cyst or mass. Lymph nodes: No adenopathy. Peritoneum: No ascites. No free air. Abdominal wall: No hernia. BONES: Right hip arthroplasty. Lucent acetabular cup with underlying cement. Protrusio morphology of the acetabular cup with cortical breakthrough along the medial surface. Acetabulum appears have been augmented. No acute or actively healing fracture seen. No focal bone lesions. Normal for age. IMPRESSION: 1. No active gastrointestinal bleeding seen by CT. 2. Large amount of ingested material in the stomach. Correlate for recent meal or delayed gastric emptying. 3. Eieznmcr-rt-zaopt stool burden. 4. Cholelithiasis. Please note that all CT scans at this facility use dose modulation, iterative reconstruction, and/or weight-based dosing when appropriate to reduce radiation dose to as low as reasonably achievable. Dictated by Soha Isaacs MD @ 11/03/2023 5:34:55 AM (Electronically Signed)
[2023-11-03 04:25] LABS: Fecal Occult Blood* Positive (Negative)
[2023-11-03 04:27] LABS: Basophils Absolute Auto 0.04 K/uL (0.00-0.30); Basophils Percent Auto 0.4 % (0.0-3.0); Eosinophils Absolute Auto 0.46 K/uL (0.00-0.50); Eosinophils Percent Auto 4.3 % (0.0-7.0); Hematocrit 26.2 % (37.0-53.0); Hemoglobin* 8.4 gm/dL (13.5-17.5); Immature Granulocytes Abs Auto 0.41 K/uL (0.00-0.30); Immature Granulocytes Pct Auto 3.8 %; Lymphocytes Absolute Auto 2.73 K/uL (0.90-2.90); Lymphocytes Percent Auto 25.2 % (20-44); Mean Corpuscular HGB Conc 32 gm/dL (32-36); Mean Corpuscular Hemoglobin 30 pg (26-34); Mean Corpuscular Volume 92 fL (80-100); Neutrophils Absolute Auto 5.77 K/uL (1.7-7.0); Neutrophils Percent Auto 53.3 % (42.0-72.0); Platelet Count* 217 K/uL (140-440); RDW Coefficient of Variation % 14.5 % (11.5-15.5); Red Blood Count 2.84 m/uL (4.30-5.90); White Blood Count* 10.82 K/uL (4.50-11.00)
[2023-11-03 04:28] LABS: Slide Review Reflex No
[2023-11-03 04:35] LABS: Albumin* 2.9 g/dL (3.3-5.0); Chloride* 103 mmol/L (96-114); Sodium* 137 mmol/L (135-149)
[2023-11-03 04:38] LABS: Alanine Aminotransferase* 37 U/L (4-50); Alkaline Phosphatase* 171 U/L (40-150); Anion Gap 8 mEq/L (7-15); Aspartate Amino Transferase* 26 U/L (12-35); Bilirubin Total* 0.3 mg/dL (0.1-1.5); Blood Urea Nitrogen* 56 mg/dL (7-30); Carbon Dioxide* 26 mmol/L (20-32); Creatinine* 1.7 mg/dL (0.5-1.5); Estimated Glomerular Filt Rate 46 ml/min; Glucose* 174 mg/dL (60-115); Total Protein* 5.4 g/dL (6.0-8.3)
[2023-11-03 04:39] LABS: Creatinine, Point-of-Care* 1.9 mg/dl (0.6-1.3)
[2023-11-03 04:39] LABS: Calcium* 8.3 mg/dL (8.4-10.6)
[2023-11-03 04:56] LABS: INR 1.59 (0.91-1.10); Prothrombin Time 20.1 Seconds
[2023-11-03 04:57] LABS: Partial Thromboplastin Time* 42 Seconds (23-33)
[2023-11-03] MEDS: LACTATED RINGERS 1000 ML 1,000 ML IV (05:10)
--- NOTE | 2023-11-03 05:18 | ED.GIBLEED ---
HPI - GI Bleed General Date Seen: 11/03/23 Chief complaint: GI Bleed Stated complaint: GI Bleed Time Seen by Provider: 11/03/23 04:10 Source: patient, family and EMS Mode of arrival: EMS History of Present Illness HPI Narrative: Patient is a 58-year-old male presenting to the emergency department for GI bleed and hypotension. Staff at his group home went to check on him and there was bloody emesis on the wall and he was also having blood coming from his rectum. He was hypotensive when EMS was called. When EMS arrived he was continued to be hypotensive and they brought him to the closest hospital for stabilization. Patient seems to have some cognitive issues secondary to his previous stroke that occurred in May of this year. Staff and is nursing him states this is mental baseline. Patient states the vomiting started last night. Denies any other concerns at this time. Related Data Home Medications ?Medication ?Instructions ?Recorded ?Confirmed aspirin 81 mg chewable tablet 1 tab PO DAILY 11/03/23 11/03/23 atorvastatin 20 mg tablet 20 mg PO DAILY 11/03/23 11/03/23 calcium carbonate (Champ-Gest mg PO 11/03/23 Antacid) lisinopril 5 mg tablet 5 mg PO DAILY 11/03/23 11/03/23 oxycodone 5 mg tablet 2.5 mg PO Q6H PRN pain 11/03/23 11/03/23 rivaroxaban 10 mg tablet (Xarelto) 10 mg PO DAILY 11/03/23 11/03/23 Allergies Allergy/AdvReac Type Severity Reaction Status Date / Time No Known Drug Allergies Allergy Verified 11/03/23 04:33 Review of Systems Status of ROS: Reports: 10 or more systems reviewed and unremarkable except as noted in History and below [facility] Social History Smoking Status: Never smoker How often do you have a drink containing alcohol: never AUDIT-C Alcohol total score: 0 Non-prescribed substance use: denies use Exam Narrative: Exam Narrative: Const: Well-nourished, Well-developed, in severe distress Eyes: PERRL, no conjunctival injection, and symmetrical lids HENT: Atraumatic external nose and ears. Moist mucous membranes. Neck: Symmetric, trachea midline, No thyromegaly. CVS: RRR, No murmurs or gallops. Peripheral pulses 2+ and equal in all extremities RESP: Unlabored respiratory effort. Clear to auscultation bilaterally. GI: Diffusely tender, mildly distended, blood seen per rectum MSK:Extremities w/o deformity, Normal Active ROM Skin: Warm, Dry. No rashes or lesions. Neuro: Normal Muscle tone, No focal neurological deficits. Psych: Awake, Alert, & Oriented to self and situation. Const: Vital Signs, click to edit/add: Vital Signs - 24 hr 11/03/23 04:26 11/03/23 05:05 11/03/23 05:09 Temperature 98.3 F 99.1 F Pulse Rate 87 Pulse Rate [Pulse Oximeter] 93 Respiratory Rate 20 20 Blood Pressure 122/95 H Blood Pressure [Ri ght Upper Arm] 91/64 Pulse Oximetry 94 98 Oxygen Delivery Me thod Room Air 11/03/23 05:23 11/03/23 05:38 11/03/23 05:46 Temperature 98.8 F 98.8 F 97.9 F Pulse Rate 90 81 Pulse Rate [Pulse Oximeter] Respiratory Rate 16 14 18 Blood Pressure 71/45 L 90/60 Blood Pressure [Ri ght Upper Arm] Pulse Oximetry 98 97 Oxygen Delivery Me thod Course Vital Signs Vital signs: Initial Vital Signs Temperature 98.3 F 11/03/23 04:26 Temperature Source Temporal Artery Scan 11/03/23 04:26 Pulse Rate 93 11/03/23 04:26 Respiratory Rate 20 11/03/23 04:26 Blood Pressure 91/64 11/03/23 04:26 Blood Pressure Mean 73 11/03/23 04:26 Blood Pressure Position Supine 11/03/23 04:26 Pulse Oximetry 94 11/03/23 04:26 Oxygen Delivery Method Room Air 11/03/23 04:26 Vital Signs Temperature 98.3 F 11/03/23 04:26 Pulse Rate 93 11/03/23 04:26 Respiratory Rate 20 11/03/23 04:26 Blood Pressure 91/64 11/03/23 04:26 Pulse Oximetry 94 11/03/23 04:26 Oxygen Delivery Method Room Air 11/03/23 04:26 Temperature 97.9 F 11/03/23 05:46 Pulse Rate 81 11/03/23 05:38 Respiratory Rate 18 11/03/23 05:46 Blood Pressure 90/60 11/03/23 05:46 Pulse Oximetry 97 11/03/23 05:46 Oxygen Delivery Method Room Air 11/03/23 04:26 Medications Administered Medications: Generic Name Dose Route Start Last Admin Trade Name Neena PRN Reason Stop Dose Admin Lactated Ringer's 1,000 mls @ 1,000 mls/hr 11/03/23 06:16 11/03/23 06:19 Lactated Ringers 1000 Ml IV 11/03/23 07:15 Infused .Q1H ONE Infusion Discontinued Medications Generic Name Dose Route Start Last Admin Trade Name Freq PRN Reason Stop Dose Admin Factor Xa(Recombinant) Inactiv 40 mls @ 160 mls/hr 11/03/23 04:32 11/03/23 05:25 -zhzo 400 mg/ IV Miscellaneous IV 11/03/23 04:33 Infused Supplies ONCE ONE Infusion Pantoprazole Sodium 80 mg 11/03/23 05:14 11/03/23 05:29 Pantoprazole Sodium 40 Mg Inj IVP 11/03/23 05:15 80 mg ONCE ONE Administration MDM - GI Bleed MDM Narrative Medical decision making narrative: Patient is a 58-year-old male presenting to emergency department for hypotension and GI bleed. He was initially hypertensive when he arrived and of the unit of packed red blood cells were ordered. I am hesitant to give him much fluid as it could cause worsening anemia. Will give him fluids if continues to be hypotensive though. EKG initially done showing no concerning abnormalities. Also ordered INR, PTT, fibrinogen, fecal occult blood test, type and screen, CBC, CMP. Will do a CTA to further evaluate for GI bleed once he is stable. Rectal exam showed what appeared to be large amount of melena in his stool. Lab work returned hemoglobin 8.4. Based on chart review through [facility] his last hemoglobin was 12.1 09/02/2023. This is been quite a drop and seems likely to be an acute drop. Considering this I will reverse his Xarelto with Andexxa. His sister's now arrived and states this is his mental baseline. Do not believe imaging is necessary. CTA was done. INR and PTT are elevated. Some concern for possible DIC. He also has an ROLANDO with elevated BUN consistent with likely upper GI bleed. He had another episode of emesis in the emergency department which was coffee-ground in appearance. PPI ordered. Family would like him transferred to [facility] but they are on divert at this time. Will transfer him to [place]. I spoke to Dr. Salazar of the ICU who accepted him for transfer. Patient's blood pressure did improve with the 1 unit of blood and the L of fluids. While rule waiting for nurse to nurse report for transfer his blood pressure did start to drop back down and another unit was given. Considering patient's hypertension is likely from blood loss pressors were not given as that would not correct the problem. Lab Data Labs: Lab Results 11/03/23 11/03/23 11/03/23 Range/Units 04:11 04:15 05:02 WBC 10.82 (4.50-11.00) K/uL RBC 2.84 L (4.30-5.90) m/uL Hgb 8.4 L (13.5-17.5) gm/dL Hct 26.2 L (37.0-53.0) % MCV 92 (80-100) fL MCH 30 (26-34) pg MCHC 32 (32-36) gm/dL RDW Coeff of Philipp 14.5 (11.5-15.5) % Plt Count 217 (140-440) K/uL Neut % (Auto) 53.3 (42.0-72.0) % Lymph % (Auto) 25.2 (20-44) % Meigs % (Auto) 13.0 H (0.0-11.0) % Eos % (Auto) 4.3 (0.0-7.0) % Baso % (Auto) 0.4 (0.0-3.0) % Neut # (Auto) 5.77 (1.7-7.0) K/uL Lymph # (Auto) 2.73 (0.90-2.90) K/uL Meigs # (Auto) 1.40 H (0.00-0.90) K/UL Eos # (Auto) 0.46 (0.00-0.50) K/uL Baso # (Auto) 0.04 (0.00-0.30) K/uL Abs Immat Gran (auto) 0.41 H (0.00-0.30) K/uL Imm/Tot Granulo (auto) 3.8 % INR 1.59 H (0.91-1.10) APTT 42 H (23-33) Seconds Fibrinogen 401 (200-450) mg/dL Sodium 137 (135-149) mmol/L Potassium 5.0 (3.6-5.1) mmol/L Chloride 103 (96-114) mmol/L Carbon Dioxide 26 (20-32) mmol/L Anion Gap 8 (7-15) mEq/L BUN 56 H (7-30) mg/dL Creatinine 1.7 H (0.5-1.5) mg/dL Estimated GFR 46 ml/min Glucose 174 H (60-115) mg/dL Calcium 8.3 L (8.4-10.6) mg/dL Total Bilirubin 0.3 (0.1-1.5) mg/dL AST 26 (12-35) U/L ALT 37 (4-50) U/L Alkaline Phosphatase 171 H (40-150) U/L Total Protein 5.4 L (6.0-8.3) g/dL Albumin 2.9 L (3.3-5.0) g/dL Stool Occult Blood Positive (Negative) Lab Acknowledgement Test Added POC Creatinine 1.9 H (0.6-1.3) mg/dl POC Troponin I 0.00 L (0.01-0.04) ng/ml Blood Type O Positive Antibody Screen NEGATIVE Crossmatch (AHG) See Detail Imaging Data CTA abdomen and pelvis GI protocol: Attestation: I have reviewed the pertinent imaging results. Radiologist's impression: 1. No active gastrointestinal bleeding seen by CT. 2. Large amount of ingested material in the stomach. Correlate for recent meal or delayed gastric emptying. 3. Yfvketmk-vz-avddx stool burden. 4. Cholelithiasis. Please note that all CT scans at this facility use dose modulation, iterative reconstruction, and/or weight-based dosing when appropriate to reduce radiation dose to as low as reasonably achievable. Dictated by Soha Isaacs MD @ 11/03/2023 5:34:55 AM ECG Data Attestation: I personally reviewed and interpreted this ECG as follows: Interpretation: Junctional rhythm tachycardia with rate 101 beats per minute, normal axis, no ST or T-wave abnormalities. Critical Care Time Critical Care Time Critical Care Time: Yes Attestation: The patient required my highest level preparedness to intervene emergently and I personally spent this critical care time directly and personally managing the patient. This critical care time included: Obtaining a history; Examining the patient; Pulse oximetry; Ordering and reviewing of studies; Arranging urgent treatment with development of a management plan; Evaluation of patients response to treatment; Frequent reassessment discussions with other providers. This critical care time was performed to assess and manage the high probability of imminent life-threatening deterioration that could result in multiorgan failure. It was exclusive of separate billable procedures and treating other patients and teaching time. Total Critical Care Time in Minutes: 45 Discharge Plan Discharge Clinical Impression: Upper gastrointestinal hemorrhage Patient Disposition: [facility] Condition: Critical Prescriptions: No Action atorvastatin 20 mg tablet 20 mg PO DAILY aspirin 81 mg tablet,chewable 1 tab PO DAILY Xarelto 10 mg tablet 10 mg PO DAILY calcium carbonate [Champ-Gest Antacid] 200 mg calcium (500 mg) tablet,chewable PO lisinopril 5 mg tablet 5 mg PO DAILY oxycodone 5 mg tablet 2.5 mg PO Q6H PRN (Reason: pain) Stand Al[facility] Inst[facility]
[2023-11-03] MEDS: PANTOPRAZOLE SODIUM 40 MG INJ 80 MG IVP (05:29)
[2023-11-03 05:37] LABS: Fibrinogen* 401 mg/dL (200-450)
--- OUTSIDE RECORDS SUMMARY | 2023-11-03 06:30 | XMS_ITS | Clinical Summary ---
Author Organization [email or web address] Address [place], [place] [address] Care Team Providers Care Optical Engineering Technician Name Role Phone Monty Hernandez MD Primary Care Provider [phone] Allergies No known active allergies Medications Medication Sig Dispensed Refills Start Date End Date Status lisinopril-hydrochlor othiazide, 20-25 mg, (PRINZIDE, ZESTORETIC) 20-25 mg per tabletIndications:Hyp ertension Take 1 tablet by mouth once daily. 90 tablet 3 03/16/2015 Active CPAPIndications:MICHELET (obstructive sleep apnea) autoCPAP, heated humidifier, mask, headgear, filters and tubing. Pressure: 5-18cm/H2O Length of Need: 99 1 Device 0 04/27/2015 Active metFORMIN (GLUCOPHAGE) 1,000 mg tabletIndications:Typ e 2 diabetes mellitus without complication (HC) Take 1 tablet by mouth 2 times daily with meals. 0.5 tab in am x 5 days; 0.5 tab bid x 5 d; 1 tab in am, 0.5 in pm x 5 d, then 1 tab bid 180 tablet 3 05/04/2015 Active Active Problems Problem Noted Date Diagnosed Date MICHELET 04/23/2015 AHI-73 04/27/2015 Hyperplastic colon polyp 04/21/2015 Overview (04/21/2015): Colonoscopy 04/2015 hyperplastic polyp repeat in 5 years Type II diabetes mellitus Hypertension Hyperlipidemia Encounters Date Type Department Care Team Description 11/03/2023 5:34 AM CDT Hospital Encounter [facility] [address] [place] [address] Sierra Salazar MD 10/27/2023 Lab Requisition [facility] [phone] Pauline Mcbride NP 09/18/2023 Lab Requisition [facility] [phone] Pauline Mcbride NP 09/05/2023 Lab Requisition [facility] [phone] Pauline Mcbride NP 08/26/2023 Lab Requisition [facility] [phone] William Edwards MD from Last 3 Months Immunizations Name Administration Dates Next Due Tdap 04/27/2015 Family History Medical History Relation Name Comments Diabetes Father Cancer No Family History Heart Disease No Family History Relation Name Status Comments Father Social History Tobacco Use Types Packs/Day Years Used Date Smoking Tobacco: Never Smokeless Tobacco: Never Tobacco Cessation:Counseling Given: Yes Alcohol Use Standard Drinks/Week Comments Yes 0 (1 standard drink = 0.6 oz pur e alcohol) occassionally Sex and Gender Information Value Date Recorded Sex Assigned at Not on file Gender Identity Not on file Sexual Orientation Not on file Obstetrics History Last Filed Vital Signs Vital Sign Reading Time Taken Comments Blood Pressure 127/82 05/04/2015 8:55 AM CDT Pulse 76 05/04/2015 8:55 AM CDT Temperature 36.5 ??C (97.7 ??F) 05/04/2015 8:55 AM CD T Respiratory Rate - - Oxygen Saturation 95% 05/04/2015 8:55 AM CDT Inhaled Oxygen Concentration - - Weight 134.7 kg (297 lb) 05/04/2015 8:55 AM CDT Height 177 cm (5' 9.69) 05/04/2015 8:55 AM CDT Body Mass Index 43 05/04/2015 8:55 AM CDT Plan of Treatment Health Maintenance Due Date Last Done Comments HIV for age 15-65 01/02/1980 Hepatitis C screening for ag e 18-79 1983 Zoster (shingles) series for age 50+ (1 of 2) 2015 Depression screening for age 12+ 03/16/2016 03/16/2015 BMI (ht and wt on same day) for age 18+ 05/03/2016 05/04/2015, 04/27/2015, 03/16/2015 COVID-19 vaccine series ( season) 2023 Influenza for age 50-64 10/19/2023 Colonoscopy through age 75 04/17/2025 04/18/2015 Tetanus booster 04/26/2025 04/27/2015 Lipids for age 45-75 09/22/2028 09/23/2023, 07/22/2023, 03/16/2015 Tdap Completed 04/27/2015 Pneumococcal series for age 6-64 Aged Out No longer eligible b ased on patient's age to complete this topic Procedures Procedure Name Priority Date/Time Associated Diagnosis Comments HEPATIC FUNCTION PANEL Routine 10/28/2023 7:30 AM CDT Abnormal levels of other serum enzymes GAMMA GT Routine 10/28/2023 7:30 AM CDT Abnormal levels of other serum enzymes LIPID PANEL Routine 09/23/2023 7:41 AM CDT Essential (primary) hypertension Elevation of levels of liver transaminase levels GAMMA GT Routine 09/23/2023 7:41 AM CDT Essential (primary) hypertension Elevation of levels of liver transaminase levels HEPATIC FUNCTION PANEL Routine 09/09/2023 7:51 AM CDT Abnormal levels of other serum enzymes HEMOGLOBIN A1C SCREENING Routine 09/02/2023 7:31 AM CDT Abnormal finding of blood chemistry, unspecified Essential (primary) hypertension Anemia, unspecified Type 2 diabetes mellitus without complications (HC) HEPATIC FUNCTION PANEL Routine 09/02/2023 7:31 AM CDT Abnormal finding of blood chemistry, unspecified Essential (primary) hypertension Anemia, unspecified Type 2 diabetes mellitus without complications (HC) BASIC METABOLIC PANEL Routine 09/02/2023 7:31 AM CDT Abnormal finding of blood chemistry, unspecified Essential (primary) hypertension Anemia, unspecified Type 2 diabetes mellitus without complications (HC) HEMOGLOBIN Routine 09/02/2023 7:31 AM CDT Abnormal finding of blood chemistry, unspecified Essential (primary) hypertension Anemia, unspecified Type 2 diabetes mellitus without complications (HC) from Last 3 Months Results * (ABNORMAL) GAMMA GT (10/28/2023 7:30 AM CDT) Only the most recent of2 resultswithin the time period is included. Pathologist [facility] GAMMA GT 146(H) 8 - 61 IU/L 10/28/2023 12:47 PM CDT [facility] Blood BLOOD SPECIMEN / Unknown Venipuncture / Unknown 10/28/2023 7:30 AM CDT 10/28/2023 8:54 AM CDT Pauline Mcbride NP CHEMISTRY [facility] [address] [place] [address], * (ABNORMAL) HEPATIC FUNCTION PANEL (10/28/2023 7:30 AM CDT) Only the most recent of3 resultswithin the time period is included. Pathologist [facility] ALBUMIN 3.9(L) 4.0 - 4.9 g/dL 10/28/2023 9:20 AM [facility] PROTEIN,TOTAL 7.1 6.0 - 8.0 g/dL 10/28/2023 9:20 AM [facility] BILIRUBIN,TOTAL 0.5 0.0 - 1.2 mg/dL 10/28/2023 9:20 AM [facility] BILIRUBIN,DIRECT 0.2 0.0 - 0.2 mg/dL 10/28/2023 9:20 AM [facility] BILIRUBIN,INDIRE CT 0.3 0.2 - 0.8 mg/dL 10/28/2023 9:20 AM [facility] ALK PHOSPHATASE 204(H) 40 - 129 IU/L 10/28/2023 9:20 AM [facility] ALT (SGPT) 35 10 - 50 IU/L 10/28/2023 9:20 AM [facility] AST (SGOT) 39 10 - 50 IU/L 10/28/2023 9:20 AM [facility] Blood BLOOD SPECIMEN / Unknown Venipuncture / Unknown 10/28/2023 7:30 AM CDT 10/28/2023 8:54 AM CDT Pauline Mcbride NP CHEMISTRY [facility] [address] [place] [address] * LIPID PANEL (09/23/2023 7:41 AM CDT) CHOLESTEROL,TOTAL 123 100 - 199 mg/dL 09/23/2023 9:11 AM [facility] Comment: Cholesterol, Total Reference Ranges Desirable <200 mg/dL Borderline 200-239 mg/dL High >=240 mg/dL TRIGLYCERIDES 94 <150 mg/dL 09/23/2023 9:11 AM [facility] HDL CHOLESTEROL 48 >40 mg/dL 9:11 AM [facility] NON-HDL CHOLESTEROL 75 <145 mg/dl 09/23/2023 9:11 AM [facility] CHOL/HDL RATIO 2.56 <4.50 09/23/2023 9:11 AM [facility] LDL CHOLESTEROL 56 <=130 mg/dL 09/23/2023 9:11 AM [facility] VLDL CHOLESTEROL 19 <=30 mg/dL 09/23/19 9:11 AM [facility] Blood BLOOD SPECIMEN / Unknown Venipuncture / Unknown 09/23/2023 7:41 AM CDT 09/23/2023 8:46 AM CDT Pauline Mcbride NP CHEMISTRY [facility] [address] [place] [address] * HEMOGLOBIN A1C SCREENING (09/02/2023 7:31 AM CDT) HEMOGLOBIN A1C SCREENING 5.3 <=6.4 % 09/02/2023 8:33 AM T [facility] Blood BLOOD SPECIMEN / Unknown Venipuncture / Unknown 09/02/2023 7:31 AM CDT 09/02/2023 8:27 AM CDT Narrative [facility] - 09/02/2023 8:33 AM CDT ? (<5.7%) ?Normal ? (5.7% to 6.4%) ? Indicates prediabetes ? (>=6.5%) ? Confirms diabetes Falsely low levels may be seen with: Recent Transfusion, Recent Significant Blood Loss, Hemolytic Diseases, or Falsely elevated levels may be seen with: Untreated Anemias, Splenectomy William Edwards MD CHEMISTRY Performing Organization Address [facility]/ZIP Co de Phone Number [facility] [address] [place] [address] * (ABNORMAL) HEMOGLOBIN (09/02/2023 7:31 AM CDT) HEMOGLOBIN 12.1(L) 13.5 - 17.5 g/dL 09/02/2023 8:44 AM CDT [facility] MCV 90 80 - 100 fL 09/02/2023 8:44 AM CDT [facility] Blood BLOOD SPECIMEN / Unknown Venipuncture / Unknown 09/02/2023 7:31 AM CDT 09/02/2023 8:27 AM CDT William Edwards MD HEMATOLOGY Performing Organization Address City/[facility]/ZIP Co de Phone Number [facility] [address] [place], [place] [id number] * (ABNORMAL) BASIC METABOLIC PANEL (09/02/2023 7:31 AM CDT) SODIUM 140 136 - 145 mmol/L 09/02/2023 8:53 AM CDT [facility] POTASSIUM 4.4 3.5 - 5.1 mmol/L 09/02/2023 8:53 AM [facility] CHLORIDE 104 98 - 107 mmol/L 09/02/2023 8:53 AM [facility] CO2,TOTAL 29 22 - 29 mmol/L 09/02/2023 8:53 AM [facility] ANION GAP 7 5 - 18 09/02/2023 8:53 AM [facility] GLUCOSE 72 70 - 99 mg/dL 09/02/2023 8:53 AM [facility] CALCIUM 9.6 8.6 - 10.0 mg/dL 09/02/2023 8:53 AM [facility] BUN 20 6 - 20 mg/dL 09/02/2023 8:53 AM [facility] CREATININE 0.81 0.70 - 1.20 mg/dL 09/02/2023 8:53 AM [facility] BUN/CREAT RATIO 25(H) 10 - 20 8:53 AM [facility] eGFR >90 >90 mL/min/1.7 3m2 09/02/2023 8:53 AM [facility] Comment:As of 2021, eG FR is calculated by the CKD-EPI creatinine equation without race adjustment. ??eGFR can be influenced by muscle mass, exercise, and diet. ??The reported eGFR is an estimation only and is only applicable if the renal function is stable. Blood BLOOD SPECIMEN / Unknown Venipuncture / Unknown 09/02/2023 7:31 AM CDT 09/02/2023 8:27 AM [facility] William Edwards MD CHEMISTRY [facility] [address] [place] [address] from Last 3 Months Care Teams Optical Engineering Technician Relationship Specialty Start Date End Date Monty Hernandez MD [address] [place] [address] PCP - General Family Practice 04/18/15
--- OUTSIDE RECORDS SUMMARY | 2023-11-03 06:31 | XMS_ITS | Encounter Summary ---
Author Organization [facility] Address [address] [place] [address] Care Team Providers Care Guyline Operator Name Role Phone Elsewhere, Pcp Primary Care Provider Unavailabl e Encounter Details Date Type Department Care Team (Latest Contact Info) Description 11/03/2023 Intake [facility] Social History Tobacco Use Types Packs/Day Years Used Date Smoking Tobacco: Never Passive Smoke Exposure: Never Smokeless Tobacco: Never Alcohol Use Standard Drinks/Week Comments Never 2 (1 standard drink = 0.6 oz pur e alcohol) [facility] Utilities Answer Date Recorded In the past 12 months has e electric, gas, oil, or water [employer] threatened to shut off services in your home? Patient declined 08/18/2023 Humiliation, Afraid, Rape, a nd Kick questionnaire Answer Date Recorded Within the last year, have y ou been afraid of your partner or ex-partner? Patient unable to answer 06/24/2023 Within the last year, have y ou been humiliated or emotionally abused in other ways by your partner or ex-partner? Patient unable to answer 06/24/2023 Within the last year, have y ou been kicked, hit, slapped, or otherwise physically hurt by your partner or ex-partner? Patient unable to answer 06/24/2023 Within the last year, have y ou been raped or forced to have any kind of sexual activity by your partner or ex-partner? Patient unable to answer 06/24/2023 PHQ-2 Answer Date Recorded PHQ-2 Score 0 03/10/2023 Exercise Vital Sign Answer Date Recorde d On average, how many days pe r week do you engage in moderate to strenuous exercise (like a brisk walk)? 0 days 07/16/2023 On average, how many minutes do you engage in exercise at this level? 10 min 07/16/2023 Hunger Vital Sign Answer Date Recorded Within the past 12 months, y ou worried that your food would run out before you got the money to buy more. Patient declined Within the past 12 months, t he food you bought just didn't last and you didn't have money to get more. Patient declined 02/2023 PRAPARE - Transportation Answer Date Re corded In the past 12 months, has l ack of transportation kept you from medical appointments or from getting medications? Patient declined 08/18/2023 In the past 12 months, has l ack of transportation kept you from meetings, work, or from getting things needed for daily living? Patient declined 08/18/2023 Nutrition Answer Date Recorded On average, how many serving s of fruits and vegetables do you eat per day (serving size is equal to 1 cup or approximately the size of a tennis ball)? 0-2 07/16/2023 Dental Answer Date Recorded Dental: Regular Dentist Yes 07/16/19 24 Employment Answer Date Recorded Employment status Permanently disabled 4 Housing Stability Answer Date Recorded What is your living situation today? Patient dec lined 08/18/2023 Sex and Gender Information Value Date Recorded Sex Assigned at Male 07/26/2022 1:30 PM CDT Gender Identity Male 07/26/2022 1:32 PM CDT Sexual Orientation Straight 07/26/2022 1: 32 PM CDT documented as of this encounter Plan of Treatment Upcoming Encounters Date Type Department Care Team (Latest Contact Info) Description 01/02/2024 11:30 AM PHARMACEUTICAL OFFICER Clinical Communication Virtual Review in [place], [place] [address] [place] [address] 01/05/2024 9:20 AM PHARMACEUTICAL OFFICER Lab Department of Infusion Therapy in [place], [place] [address] [place] [phone] Vel Vinson M.D., M.B.A. [address] [place] [phone] 01/05/2024 10:15 AM PHARMACEUTICAL OFFICER Appointment Department of Radiology, [facility], in [place], [place] [address] [place] [phone] Vel Vinson M.D., M.B.A. [address] [place] [phone] 01/05/2024 10:45 AM PHARMACEUTICAL OFFICER Comprehensive Visit Section of Infectious Diseases in [place], [place] [address] [place] [phone] Maddy Bingham P.A.-C. [address] [place] [phone] 01/05/2024 11:15 AM PHARMACEUTICAL OFFICER Office Visit Department of Orthopedic Surgery in [place], [place] [address] [place] [phone] Vel Vinson M.D., M.B.A. [address] [place] [phone] 01/06/2024 Hospital Encounter [facility] 02 4 AM ADMIT [address] [place] [phone] Vel Vinson M.D., M.B.A. [address] [place] [phone] Scheduled Procedures Name Priority Associated Diagnoses Date/Ti me ARTHROPLASTY REVISION FEMORAL+ACETABULAR HIP Infection Total Hip Arthroplasty Subsequent Right documented as of this encounter Visit Diagnoses Not on filedocumented in this encounter Care Teams Guyline Operator Relationship Specialty Start Date End Date Elsewhere, Pcp PCP - General Internal Medicine 10/03/23 documented as of this encounter
--- OUTSIDE RECORDS SUMMARY | 2023-11-03 06:31 | XMS_ITS | Encounter Summary ---
Author Organization [facility] Address [address] [place] [address] Care Team Providers Care Custom Garment Designer Name Role Phone Elsewhere, Pcp Primary Care Provider Unavailabl e Encounter Details Date Type Department Care Team (Late st Contact Info) Description 10/21/2023 Clinical Communication Department of Orthopedic Surgery in [place], [place] [address] [place] [phone] Vel Vinson M.D., M.B.A. [address] [place] [phone] Social History Tobacco Use Types Packs/Day Years Used Date Smoking Tobacco: Never Passive Smoke Exposure: Never Smokeless Tobacco: Never Alcohol Use Standard Drinks/Week Comments Never 2 (1 standard drink = 0.6 oz pur e alcohol) [facility] Utilities Answer Date Recorded In the past 12 months has [facility] [employer] gas, oil, or water [employer] threatened to shut off services in your [...] Answer Date Recorded Employment status Permanently disabled Housing Stability Answer Date Recorded What is [...] (Latest Contact Info) Description 01/02/2024 11:30 AM OVERLOCKER Clinical Communication Virtual Review in [place], [place] [address] [place] [address] 01/05/2024 9:20 AM OVERLOCKER Lab Department of Infusion Therapy in [place], [place] [address] [place] [phone] Vel Vinson M.D., M.B.A. [address] [place] [phone] 01/05/2024 10:15 AM OVERLOCKER Appointment Department of Radiology, [facility], in [place], [place] [address] [place] [phone] Vel Vinson M.D., M.B.A. [address] [place] [phone] 01/05/2024 10:45 AM OVERLOCKER Comprehensive Visit Section of Infectious Diseases in [place], [place] [address] [place] [phone] Maddy Bingham P.A.-C. [address] [place] [phone] 01/05/2024 11:15 AM OVERLOCKER Office Visit Department of Orthopedic Surgery in [place], [place] [address] [place] [phone] Vel Vinson M.D., M.B.A. [address] [place] [phone] 01/06/2024 Hospital Encounter [facility] 02 4 AM ADMIT [address] [place] [phone] Vel Vinson M.D., M.B.A. [address] [place] [phone] Scheduled Procedures Name Priority Associated Diagnoses Date/Ti me ARTHROPLASTY REVISION FEMORAL+ACETABULAR HIP Infection Total Hip Arthroplasty Subsequent Right documented as of this encounter Visit Diagnoses Diagnosis Infection 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 Total Hip Arthroplasty Subsequent Right- Primary documented in this encounter Care Teams Custom Garment Designer Relationship Specialty Start Date End Date Elsewhere, Pcp PCP - General Internal Medicine 10/03/23 documented as of this encounter
--- OUTSIDE RECORDS SUMMARY | 2023-11-03 06:31 | XMS_ITS | Encounter Summary ---
Author Organization [facility] Address [address] [place] [address] Care Team Providers Care Last Model Maker Name Role Phone Doug Lima M.D. Primary Care Provider + [phone] Encounter Details Date Type Department Care Team (Latest Contact Info) Description 09/24/2023 2:45 PM CDT Clinical Communication Virtual Review in [place], [place] 200 [place] [phone] Social History Tobacco Use Types Packs/Day Years Used Date Smoking Tobacco: Never Passive Smoke Exposure: Never Smokeless Tobacco: Never Tobacco Cessation:Counseling Given: Not Answered Alcohol Use Standard Drinks/Week Comments Never 2 (1 standard drink = 0.6 oz pur e alcohol) [facility] Utilities Answer Date Recorded In the past 12 months has e [employer], gas, oil, or water [employer] threatened to shut off services in your [...] (Latest Contact Info) Description 01/02/2024 11:30 AM BED MACHINE OPERATOR Clinical Communication Virtual Review in [place], [place] [address] [place] [phone] 01/05/2024 9:20 AM BED MACHINE OPERATOR Lab Department of Infusion Therapy in [place], [place] [address] [place] [phone] Vel Vinson M.D., M.B.A. [address] [place] [phone] 01/05/2024 10:15 AM BED MACHINE OPERATOR Appointment Department of Radiology, [facility], in [place], [place] [address] [place] [phone] Vel Vinson M.D., M.B.A. [address] [place] [address] [phone] 01/05/2024 10:45 AM BED MACHINE OPERATOR Comprehensive Visit Section of Infectious Diseases in [place], [place] [address] [place] [phone] Maddy Bingham P.A.-C. [address] [place] [phone] 01/05/2024 11:15 AM BED MACHINE OPERATOR Office Visit Department of Orthopedic Surgery in [place], [place] [address] [place] [phone] Vel Vinson M.D., M.B.A. [address] [place] [phone] 01/06/2024 Hospital Encounter [facility] 02 4 AM ADMIT [address] [place] [address] [phone] Vel Vinson M.D., M.B.A. [address] [place] [address] [phone] Scheduled Procedures Name Priority Associated Diagnoses Date/Ti me ARTHROPLASTY REVISION FEMORAL+ACETABULAR HIP Infection Total Hip Arthroplasty Subsequent Right documented as of this encounter Visit Diagnoses Not on filedocumented in this encounter Care Teams Last Model Maker Relationship Specialty Start Date End Date Doug Lima M.D. [facility] [place] [phone] PCP - General Family Medicine 01/28/17 10/02/23 documented as of this encounter
--- OUTSIDE RECORDS SUMMARY | 2023-11-03 06:31 | XMS_ITS | Referral Summary ---
Author Organization [facility] Address [address] [place] [id number] Care Team Providers Care Ampoule Filler And Sealer Name Role Phone Elsewhere, Pcp Primary Care Provider Unavailabl e Source Comments Patient records contain information from all sites at [facility]. For routine questions regarding patient records, call [phone] during business hours, M-F 8:00 AM - 5:00 PM Central Time. Record requests for emergency care only can be directed to [phone] at any time.[facility] Encounters Date Type Department Care Team Description 11/03/2023 Intake [facility]ST TRANSFER [facility]ENTER 10/21/2023 Clinical Communication Department of Orthopedic Surgery in [place], [place] [address] [place] [phone] Vel Vinson M.D., M.B.A. 10/03/2023 1:00 PM CDT Comprehensive Visit Department of Neurology in [place], [place] [address] [place] [phone] Balbir Maradiaga M.D. Stroke Cerebrovascular Accident Personal History (Primary Dx); Seizure (HCC); Stenosis Carotid Artery Left 10/01/2023 Abstract [place], [place] [address] [place] [phone] Provider, Historical 09/24/2023 2:45 PM CDT Clinical Communication Virtual Review in [place], [place] [address] [place] [address] 09/08/2023 Orders Only Section of Infectious Diseases in [place], [place] [address] [place] [phone] Storm Nicole M.D. Infection Total Hip Arthroplasty Subsequent Right (Primary Dx) 08/28/2023 11:00 AM CDT Internal E-Consult Department of Vascular Medicine in [place], [place] [address] [place] [phone] Gaudencio Escobedo M.D. Occlusion Carotid Artery Left (Primary Dx); Stenosis Carotid Artery Right; Peripheral Arterial Disease (HCC); Stroke (HCC); Infection Total Hip Arthroplasty Subsequent Right; Hemiplegia Flaccid Dominant Side Right (HCC) 08/27/2023 Orders Only Department of Neurologic Surgery in [place], [place] [address] [place] [phone] sRosalie R.N., CNRN Stenosis Carotid Artery Right (Primary Dx); Occlusion Carotid Artery Left; Peripheral Arterial Disease (HCC); Stroke (HCC); Infection Total Hip Arthroplasty Subsequent Right; Hemiplegia Flaccid Dominant Side Right (HCC) 08/27/2023 Clinical Communication Department of Neurologic Surgery in [place], [place] [address] [place] [phone] Fantasma Butt M.D. 08/26/2023 Orders Only [facility] Doug Lima M.D. Diabetes Mellitus Type 2 Peripheral Neuropathy ([facility]) 08/25/2023 6:43 AM CDT - 08/25/2023 12:10 PM CDT Hospital Encounter Department of Radiology, [facility] in [place], [place] [address] [place] [phone] Xavi Hicks M.D. Infection Total Hip Arthroplasty Subsequent Right Discharge Disposition: Home or Self Care 08/25/2023 12:11 PM CDT - 08/25/2023 11:59 PM CDT Hospital Encounter Department of Radiology, [facility] in [place], [place] [address] [place] [phone] Radha Ojeda P.A.-C., M.S. Stenosis Carotid Artery Bilateral Discharge Disposition: Home or Self Care 08/25/2023 9:00 AM CDT Comprehensive Visit Section of Infectious Diseases in [address] [phone] Sylvester Robb P.A.-C. Storm Nicole M.D. Infection Total Hip Arthroplasty Subsequent Right (Primary Dx) 08/25/2023 3:00 PM CDT Office Visit Department of Neurologic Surgery in [address] [phone] Fantasma Butt M.D. Stenosis Carotid Artery Right (Primary Dx); Occlusion Carotid Artery Left 08/25/2023 8:15 AM CDT Office Visit Department of Orthopedic Surgery in [address] [phone] Vel Vinson M.D., M.B.A. Infection Total Hip Arthroplasty Subsequent Right (Primary Dx); Stroke (HCC) 08/20/2023 12:00 PM CDT Clinical Communication Virtual Review in [address] [phone] Pre-visit Intake from Last 3 Months Allergies Active Allergy Reactions Criticality Noted Date Comments Cefazolin Other (see comments) 08/25/2023 Possible increase in alkaline phosphatase please see ID notes Medications Medication Sig Dispensed Refills Start Date End Date Status lancets 1 each daily. 50 each 07/29/2022 Active blood sugar diagnostic strips 1 test daily. 30 test 07/29/2022 Active blood-glucose meter (FreeStyle [place]) kit Use as instructed 1 each 07/29/2022 Active blood glucose ctl high,nml,low solution Glucose control solution provides an easy way to ensure accurate blood glucose testing. 1 each 07/29/2022 Active flash glucose scanning reader (FreeStyle Jessica 2 Wysox) miscIndications:Bhargavi betes Mellitus Type 2 Ulcer Foot Hyperglycemic (HCC) 1 each (1 Device total) continuously. 1 each 1 08/01/2022 Active pen needle, diabetic (BD Ultra-Fine Short Pen Needle) 31 gauge x 5/16 needle 1 Injection daily. 100 each 3 12/31/2022 Active acetaminophen (TYLENOL) 500 mg tablet Take 2 tablets (1,000 mg total) by mouth every 6 (six) hours as needed for mild pain or score 1-3 of 10 or moderate pain or score 4-6 of 10. 03/20/2023 Active Additional Information Patient taking differently:1,000 mg oral Every 6 hours PRN, mild pain or score 1-3 of 10, moderate pain or score 4-6 of 10,3 times daily, Reported on 09/24/2023 insulin NPH (NovoLIN N FlexPen) 100 unit/mL (3 mL) injection Inject 10-20 Units under the skin 2 (two) times a day with meals. 15 mL 11 06/25/2023 Active atorvastatin (LIPITOR) 20 mg tablet Take 1 tablet (20 mg total) by mouth at bedtime. 30 tablet 1 06/25/2023 Active bisacodyL (DULCOLAX) 5 mg EC tablet Take 2 tablets (10 mg total) by mouth 2 (two) times a day as needed for constipation. 06/25/2023 Active calcium carbonate (TUMS) 500 mg (200 mg calcium) chewable tablet Administer 1 tablet (200 mg of calcium total) via gastric tube every 2 (two) hours as needed for indigestion or heartburn. 06/25/2023 Active carboxymethylcellul ose (REFRESH PLUS) 0.5 % ophthalmic solution Administer 2 drops into both eyes 4 (four) times a day as needed for dry eyes. 50 each 06/25/2023 Active levETIRAcetam (Keppra) 100 mg/mL solution Take 7.5 mL (750 mg total) by mouth 2 (two) times a day. 06/25/2023 Active aspirin 81 mg chewable tablet Chew 1 tablet (81 mg total) daily. 60 tablet 06/25/2023 Active amitriptyline 2%,gabapentin 5%,lidocaine 5%-vanicream Apply topically 2 (two) times a day. Apply to affected area. 60 g 3 06/25/2023 Active Additional Information Patient not taking.Reported on 09/24/2023 nystatin (Mycostatin) 100,000 unit/gram cream Apply 1 Application topically as needed. 08/11/2023 Active hydrocortisone 1 % ointment Apply topically as needed. 08/11/2023 Active oxyCODONE (Roxicodone) 5 mg immediate release tablet Take 5 mg by mouth as needed. 07/11/2023 Active Novofine Autocover 30 gauge x 1/3 needle 06/25/2023 Active zinc oxide 20 % ointment Apply topically as needed. 07/31/2023 Active rivaroxaban (Xarelto) 10 mg tablet Take 1 tablet (10 mg total) by mouth daily. 30 tablet 11 08/28/2023 08/27/2024 Active lisinopriL 5 mg tablet Take 5 mg by mouth daily. 09/03/2023 Active flash glucose sensor (FreeStyle Jessica 2 Sensor) kitIndications:Diab etes Mellitus Type 2 Ulcer Foot Hyperglycemic (HCC) 2 each (2 kits total) every 14 (fourteen) days. 2 kit 11 10/09/2022 10/09/2023 Active Problems Problem Noted Date Diagnosed Date Seizure 10/03/2023 Stroke 05/24/2023 Change Mental Status 05/23/2023 Hypotension 05/23/2023 Transient Ischemic Attack 05/23/2023 Occlusion Carotid Artery Left 05/23/2023 Infection Total Hip Arthroplasty Initial Right 0 05/13/2023 [facility] 03/07/2023 Infection Total Hip Arthroplasty Subsequent Righ t 01/15/2023 Screening Cancer Colon 10/31/2022 Stenosis Carotid Artery Right 08/09/2022 Diabetes Mellitus Type 2 Ulcer Foot 04/17/2022 Peripheral Arterial Disease 03/10/2020 Obesity Body Mass Index 30-39.9 Adult 03/09/2020 Hyperlipidemia 02/18/2017 Hypertension Essential Primary 02/18/2017 Apnea Sleep Obstructive 04/27/2015 Polyp Colon 04/21/2015 Overview (02/18/2017): Overview: Colonoscopy 04/2015 hyperplastic polyp repeat in 5 years Resolved Problems Problem Noted Date Diagnosed Date Resolved Date Failure To Thrive Adult 07/29/2022 06/04/2022 Screening Cancer Colon 04/17/202007/30 Overview (04/17/2020): Added automatically from request for surgery [id number] Hyponatremia 03/09/2020 07/30/2022 Hyperkalemia 03/09/2020 07/30/2022 Cellulitis 03/08/2020 03/20/2020 Cellulitis Foot Right 03/08/20202022 Diabetes Mellitus Type 2 Hyperglycemia 02/18/2017 04/17/2022 Diabetes Mellitus Type 2 Ulcer Foot 04/17/2022 Immunizations Name Administration Dates Next Due Tdap 04/27/2015 Social History Tobacco Use Types Packs/Day Years Used Date Smoking Tobacco: Never Passive Smoke Exposure: Never Smokeless Tobacco: Never Tobacco Cessation:Counseling Given: Not Answered Alcohol Use Standard Drinks/Week Comments Never 2 (1 standard drink = 0.6 oz pur e alcohol) [facility] Utilities Answer Date Recorded In the past 12 months has e [employer], gas, oil, or water company threatened to shut off services in your [...] Date Recorded Dental: Regular Dentist Yes 07/16/19 Employment Answer Date Recorded Employment status Permanently disabled Housing Stability Answer Date Recorded What is your living situation today? Patient dec lined 08/18/2023 Sex and Gender Information Value Date Recorded Sex Assigned at Male 07/26/2022 1:30 PM CDT Gender Identity Male 07/26/2022 1:32 PM CDT Sexual Orientation Straight 07/26/2022 1: 32 PM CDT Last Filed Vital Signs Vital Sign Reading Time Taken Comments Blood Pressure 148/85 10/03/2023 12:57 PM CDT Pulse 58 10/03/2023 12:57 PM CDT Temperature 36.3 ??C (97.3 ??F) 06/25/2023 8:00 AM CD T Respiratory Rate 14 06/25/2023 8:00 AM CDT Oxygen Saturation 95% 06/25/2023 8:10 AM CDT Inhaled Oxygen Concentration - - Weight 84.5 kg (186 lb 4.6 oz) 10/03/2023 12:57 PM CDT verbal Height 180.3 cm (5' 11) 10/03/2023 12:57 PM CDT verbal Body Mass Index 25.98 10/03/2023 12:57 PM CDT Plan of Treatment Upcoming Encounters Date Type Department Care Team (Latest Contact Info) Description 01/02/2024 11:30 AM BRAKE ADJUSTER Clinical Communication Virtual Review in [place], [place] 200 [place] [address] 01/05/2024 9:20 AM BRAKE ADJUSTER Lab Department of Infusion Therapy in [address] [phone] Vel Vinson M.D., M.B.A. [address] [place] [phone] 01/05/2024 10:15 AM BRAKE ADJUSTER Appointment Department of Radiology, [facility], in [place], [place] [address] [place] [phone] Vel Vinson M.D., M.B.A. [address] [place] [phone] 01/05/2024 10:45 AM BRAKE ADJUSTER Comprehensive Visit Section of Infectious Diseases in [place], [place] [address] [place] [phone] Maddy Bingham P.A.-C. [address] [place] [phone] 01/05/2024 11:15 AM BRAKE ADJUSTER Office Visit Department of Orthopedic Surgery in [place], [place] [address] [place] [phone] Vel Vinson M.D., M.B.A. [address] [place] [phone] 01/06/2024 Hospital Encounter [facility] RO 02 4 AM ADMIT [address] [place] [phone] Vel Vinson M.D., M.B.A. [address] [place] [phone] Scheduled Procedures Name Priority Associated Diagnoses Date/Ti me ARTHROPLASTY REVISION FEMORAL+ACETABULAR HIP Infection Total Hip Arthroplasty Subsequent Right Medical Devices Implanted Type Area Roll On Worker Device Identifier Shelf Expiration Date Model / Serial / Lot Cmnt Bn [facility] 40gm - [id number] Implanted:Qty: 1 on 05/23/2023 by Vel Vinson M.D., M.B.A. at [facility] Bone Cement Right: Hip [place] 6191-1-001 / / Cmnt Bn [facility] 40gm - [id number] Implanted:Qty: 1 on 05/23/2023 by Félix Mckeon M.D. at [facility] Bone Cement Right: Hip Liliane 6191-1-001 / / Cmnt Bn Smp 40gm - [id number] Implanted:Qty: 1 on 05/23/2023 by Félix Mckeon M.D. at [facility] Bone Cement Right: Hip [place] 6191-1-001 / / Stnt Protege 0.014 [id number] - [id number] Implanted:Qty: 1 on 08/09/2022 by Fantasma Butt M.D. at [facility] Cardiac Stent Medtronic 02/19/2024 SECX-8-30-1 35 / / [id number] Small Frag-Screw Yasmany 3.5x16 - Amaral [id number] Implanted:Qty: 3 on 2004 Hardware e.g. pins/screws /rods Depuy Synthes Description:Device Manufactu rer - Synthes. Device Status Text - HARDWARE-7597. K-Wire Smooth S.S. Single 9 .062 - Amaral [id number] Implanted:Qty: 1 on 2004 Hardware e.g. pins/screws /rods [place] Description:Device Manufactu rer - [place] Angel.. Device Status Text - HARDWARE-9295. Small Frag-Screw Yasmany 3.5x18 - Amaral [id number] Implanted:Qty: 3 on 2004 Hardware e.g. pins/screws /rods Depuy Synthes Description:Device Manufactu rer - Synthes. Device Status Text - HARDWARE-7598. Lc Dc-Plate Sm 3.5x 7ho - Amaral [id number] Implanted:Qty: 1 on 2004 Hardware e.g. pins/screws /rods [employer]uy Synthes Description:Device Manufactu rer - Synthes. Device Status Text - HARDWARE-8081. Small Frag-Screw Yasmany 3.5x34 - Amaral [id number] Implanted:Qty: 1 on 01/02/2004 Hardware e.g. pins/screws /rods Depuy Synthes Description:Device Manufactu rer - Synthes. Device Status Text - HARDWARE-7629. Small Frag-Screw Yasmany 3.5x22 - Amaral 7600 Implanted:Qty: 1 on 01/02/2004 Hardware e.g. pins/screws /rods Depuy Synthes Description:Device Manufactu rer - Synthes. Device Status Text - HARDWARE-7600. Small Frag-Screw Yasmany 3.5x28 - Amaral [id number] Implanted:Qty: 1 on 01/02/2004 Hardware e.g. pins/screws /rods Depuy Synthes Description:Device Manufactu rer - Synthes. Device Status Text - HARDWARE-7603. Small Frag-Screw Yasmany 3.5x20 - Amaral [id number] Implanted:Qty: 2 on 01/02/2004 Hardware e.g. pins/screws /rods Depuy Synthes Description:Device Manufactu rer - Synthes. Device Status Text - HARDWARE-7599. Pelvic Re-Plate 3.5x10ho - Amaral [id number] Implanted:Qty: 1 on 01/02/2004 Hardware e.g. pins/screws /rods Depuy Synthes Description:Device Manufactu rer - Synthes. Device Status Text - HARDWARE-9991. Small Frag-Screw Yasmany 3.5x24 - Amaral [id number] Implanted:Qty: 2 on 01/02/2004 Hardware e.g. pins/screws /rods Depuy Synthes Description:Device Manufactu rer - Synthes. Device Status Text - HARDWARE-7600. Pin Dania Threaded Single End 5 64 - Amaral [id number] Implanted:Qty: 2 on 01/02/2004 Hardware e.g. pins/screws /rods Liliane Description:Device Manufactu rer - [place] Angel.. Device Status Text - HARDWARE-9484. Small Frag-Screw Yasmany 3.5x26 - Amaral [id number] Implanted:Qty: 1 on 01/02/2004 Hardware e.g. pins/screws /rods Depuy Synthes Description:Device Manufactu rer - Synthes. Device Status Text - HARDWARE-7602. Syn Screw Schanz 5.0x250 - Amaral [id number] Implanted:Qty: 1 on 01/02/2004 Hardware e.g. pins/screws /rods Depuy Synthes Description:Device Manufactu rer - Synthes. Device Status Text - HARDWARE-20881. Guide Wire-Ball Tip 3 X 800 - Amaral [id number] Implanted:Qty: 1 on 02/03/2009 Hardware e.g. pins/screws /rods [place] Description:Device Manufactu rer - [place] Angel.. Device Status Text - HARDWARE- 09394. [facility] Data - [id number]. Hip Stm Prs Cmnt Rt 3 200 - [id number] Implanted:Qty: 1 on 05/23/2023 by Félix Mckeon M.D. at [facility] Hip Implant Right: Hip Depuy Synthes 08/16/2032 [id number] / / [id number] Lnr Emp Aox Std +4 40x54 - [id number] Implanted:Qty: 1 on 05/23/2023 by Félix Mckeon M.D. at [facility] Hip Implant Right: Hip Depuy Synthes 02/16/2027 4722-54-440 / / [id number] Fem Hd Art +12ofst 40 - [id number] Implanted:Qty: 1 on 05/23/2023 by Vel Vinson M.D., M.B.A. at [facility] Hip Implant Right: Hip Depuy Synthes 02/16/2033 4734-40-120 / / [id number] Stnt [place] 518 8x80 - [id number] Implanted:Qty: 1 on 05/24/2023 by Almaz Olea M.D. at [facility] Vascular Stent [employer] 02/24/2026 [id number] / / [id number] Explanted Type Area Roll On Worker Device Identifier Shelf Expiration Date Model / Serial / Lot Screw-Hgpii S-Tap 6.5 X 15mm - Amaral [id number] Implanted:Qty: 1 on 02/03/2009 Explanted:Qty: 1 on 05/23/2023 by Vel Vinson M.D., M.B.A. at [facility] Hardware e.g. pins/screws /rods [employer] Description:Device Manufactu rer - Nori. Device Status Text - HARDWARE-73338. Small Frag-Screw Yasmany 3.5x12 - Amaral [id number] Implanted:Qty: 1 on 01/02/2004 Explanted:Qty: 1 on 05/23/2023 by Vel Vinson M.D., M.B.A. at [facility] Hardware e.g. pins/screws /rods Depuy Synthes Description:Device Manufactu rer - Synthes. Device Status Text - HARDWARE-7595. Small Frag-Screw Yasmany 3.5x16 - Amaral [id number] Implanted:Qty: 2 on 01/02/2004 Explanted:Qty: 2 on 05/23/2023 by Vel Vinson M.D., M.B.A. at [facility] Hardware e.g. pins/screws /rods Depuy Synthes Description:Device Manufactu rer - Synthes. Device Status Text - HARDWARE-7597. Pelvic Re-Plate Cvd 3.5x 6ho - Amaral [id number] Implanted:Qty: 1 on 01/02/2004 Explanted:Qty: 1 on 05/23/2023 by Félix Mckeon M.D. at [facility] Hardware e.g. pins/screws /rods Depuy Synthes Description:Device Manufactu rer - Synthes. Device Status Text - HARDWARE-7366. Right Hip Screw-Hgpii S-Tap 6.5 X 30mm - Amaral [id number] Implanted:Qty: 2 on 02/03/2009 Explanted:Qty: 2 on 05/23/2023 by Vel Vinson M.D., M.B.A. at [facility] Hardware e.g. pins/screws /rods [employer]i [employer] Description:Device Manufactu rer - Nori. Device Status Text - HARDWARE-03441. Screw-Hgpii S-Tap 6.5 X 35mm - Amaral [id number] Implanted:Qty: 1 on 02/03/2009 Explanted:Qty: 1 on 05/23/2023 by Vel Vinson M.D., M.B.A. at [facility] Hardware e.g. pins/screws /rods [employer]i [employer] Description:Device Manufactu rer - Nori. Device Status Text - HARDWARE-56080. 6.5 Saniya Screw-16mm Thread 65 - Amaral [id number] Implanted:Qty: 1 on 01/02/2004 Explanted:Qty: 1 on 05/23/2023 by Vel Vinson M.D., M.B.A. at [facility] Hardware e.g. pins/screws /rods Depuy Synthes Description:Device Manufactu rer - Synthes. Device Status Text - HARDWARE-73549. Implex-Shell Hedro 54mm - Amaral [id number] Implanted:Qty: 1 on 02/03/2009 Explanted:Qty: 1 on 05/23/2023 by Vel Vinson M.D., M.B.A. at [facility] Hip Implant Other/Legacy - See Implant Description [employer] Description:Device Manufactu rer - Nori. Body Location - Other. Right. Device Status Text - HIP [id number]. Saline-Stem [place] 8 Hi - Amaral [id number] Implanted:Qty: 1 on 02/03/2009 Explanted:Qty: 1 on 05/23/2023 by Vel Vinson M.D., M.B.A. at [facility] Hip Implant Other/Legacy - See Implant Description [employer] Description:Device Manufactu rer - [employer]. Body Location - Other. Right. Device Status Text - HIP [id number]. Nori Liner 0 Degree 32 X 54m - Amaral [id number] Implanted:Qty: 1 on 02/03/2009 Explanted:Qty: 1 on 05/23/2023 by Vel Vinson M.D., M.B.A. at [facility] Hip Implant Other/Legacy - See Implant Description Nori [employer] Description:Device Manufactu rer - Nori. Body Location - Other. Right. Device Status Text - HIP [id number]. Dep. Head Prodigy 32 + 1.0 - Amaral [id number] Implanted:Qty: 1 on 02/03/2009 Explanted:Qty: 1 on 05/23/2023 by Vel Vinson M.D., M.B.A. at [facility] Hip Implant Other/Legacy - See Implant Description [employer] Description:Device Manufactu rer - J [employer]. Body Location - Other. Right. Device Status Text - HIP [id number]. Procedures Procedure Name Priority Date/Time Associated Diagnosis Comments US CAROTID BILATERAL RAD - Routine (most inpatients and all outpatients) 08/25/2023 1:26 PM CDT Stenosis Carotid Artery Bilateral HEPATIC FUNCTION PANEL, S Routine 08/25/2023 8:11 AM CDT Infection Total Hip Arthroplasty Subsequent Right CREATININE WITH EGFR, S/P Routine 08/25/2023 8:11 AM CDT Infection Total Hip Arthroplasty Subsequent Right C-REACTIVE PROTEIN (CRP), S/P Routine 08/25/2023 8:11 AM CDT Infection Total Hip Arthroplasty Subsequent Right SEDIMENTATION RATE, B Routine 08/25/2023 8:11 AM CDT Infection Total Hip Arthroplasty Subsequent Right CBC WITH DIFFERENTIAL, B Routine 08/25/2023 8:11 AM CDT Infection Total Hip Arthroplasty Subsequent Right DX HIP AND PELVIS RIGHT 2-3 VIEWS RAD - Routine (most inpatients and all outpatients) 08/25/2023 7:22 AM CDT Infection Total Hip Arthroplasty Subsequent Right BASIC METABOLIC PANEL, S/P Routine 06/24/2023 6:25 AM CDT HEMOGLOBIN A1C, B STAT 05/24/2023 5:5 9 AM CDT LIPID PANEL, S STAT 05/24/2023 5:59 AM CDT ALBUMIN, RANDOM, U Routine 03/10/2023 11:30 AM BRAKE ADJUSTER Diabetes Mellitus Type 2 Ulcer Foot Hyperglycemic (HCC) from Last 3 Months or Most Recently Relevant to Health Maintenance Results * US Carotid Bilateral (08/25/2023 1:26 PM CDT) Anatomical Region Laterality Modality Head and Neck, Ultrasound RS T LOS, Ultrasound ARZ LOS, Neuroradiology FLA LOS, Procedural, Vascular Interventional NWWI LOS Bilateral Ultrasound Impressions 08/25/2023 2:22 PM CDT 1) Patent stent from the right distal CCA into the ICA. Elevated velocities in the stent of maximally 395cm/sec(previously 330cm/s) consistent with mild progression of in-stent stenosis which is now >80%. 2) Interval stenting of the left ICA. Velocities in the stent of maximally 164cm/sec with mild narrowing of the stent seen and velocities proximal to this narrowing are 82cm/sec. Findings consistent with mild in stent narrowing. No significant stenosis. 3) Stable bilateral ECA stenoses. 4) Right vertebral artery 50-69% stenosis, at the lower end of the range. Stable left vertebral artery 70-99% stenosis. Narrative 08/25/2023 2:22 PM CDT EXAM: US CAROTID BILATERAL Exam performed with color and spectral Doppler analysis. COMPARISON: 04/16/23 and IR exam of 05/24/23 FINDINGS: RIGHT: Patent stent from the distal CCA into the ICA. Elevated velocities in the stent of maximally 395cm/sec(previously 330cm/s) consistent with mild progression of in-stent stenosis which is now >80%. Stable ECA stenosis. Antegrade flow within the vertebral artery with similar elevated velocities consistent with a 50-69% stenosis, at the lower end of the range. LEFT: Interval stenting of the ICA. Velocities in the stent of maximally 164cm/sec with mild narrowing of the stent seen and velocities proximal to this narrowing are 82cm/sec. Findings consistent with mild in stent narrowing. No significant stenosis. Stable left ECA stenosis. Antegrade flow in the vertebral artery with similar stenosis proximally (239 cm/s; previously 249 cm/s). VELOCITIES (cm/sec) Right CCA *psv: ??47 cm/s Right ICA psv: 395 cm/s Right ICA edv: 129 cm/s Right ECA psv: 332 cm/s Right ICA/CCA: 8.3 Left CCA *psv: 86 cm/s Left ICA psv: 164 cm/s Left ICA edv: ??58 cm/s Left ECA psv: ??259 cm/s Left ICA/CCA: 1.8 *mid/distal (non-diseased) Measurement of a carotid stenosis, if present, is based on velocity parameters that compare the residual internal carotid luminal diameter with that of the normal distal ICA in accordance with [place] Symptomatic Carotid Endarterectomy Trial (NASCET). Procedure Note An Bravo M.D. - 08/25/2023 EXAM: US CAROTID BILATERAL Exam performed with color and spectral Doppler analysis. COMPARISON: 04/16/23 and IR exam of 05/24/23 FINDINGS: RIGHT: Patent stent from the distal CCA into the ICA. Elevated velocitiesin the stent of maximally 395cm/sec(previously 330cm/s) consistent withmild progression of in-stent stenosis which is now >80%. Stable ECAstenosis. Antegrade flow within the vertebral artery with similar elevated velocities consistent with a 50- 69%stenosis, at the lower end of the range. LEFT: Interval stenting of the ICA. Velocities in the stent of lxegefpck213va/sec with mild narrowing of the stent seen and velocities proximal tothis narrowing are 82cm/sec. Findings consistent with mild in stentnarrowing. No significant stenosis. Stable left ECA stenosis. Antegrade flow in the vertebral artery withsimilar stenosis proximally (239 cm/s; previously 249 cm/s). VELOCITIES (cm/sec) Right CCA *psv: 47 cm/s Right ICA psv: 395 cm/s Right ICA edv: 129 cm/s Right ECA psv: 332 cm/s Right ICA/CCA: 8.3 Left CCA *psv: 86 cm/s Left ICA psv: 164 cm/s Left ICA edv: 58 cm/s Left ECA psv: 259 cm/s Left ICA/CCA: 1.8 *mid/distal (non-diseased) Measurement of a carotid stenosis, if present, is based on velocityparameters that compare the residual internal carotid luminal diameterwith that of the normal distal ICA in accordance with North AmericanSymptomatic Carotid Endarterectomy Trial (NASCET). IMPRESSION: 1) Patent stent from the right distal CCA into the ICA. Elevatedvelocities in the stent of maximally 395cm/sec(previously 330cm/s)consistent with mild progression of in-stent stenosis which is now >80%. 2) Interval stenting of the left ICA. Velocities in the stent of istlnqffr551uw/sec with mild narrowing of the stent seen and velocities proximal tothis narrowing are 82cm/sec. Findings consistent with mild in stentnarrowing. No significant stenosis. 3) Stable bilateral ECA stenoses. 4) Right vertebral artery 50-69% stenosis, at the lower end of the range.Stable left vertebral artery 70-99% stenosis. Radha Ojeda P.A.-C., M.S. IMG US [facility]Y [facility] * (ABNORMAL) Hepatic Function Panel (08/25/2023 8:11 AM CDT) Bilirubin, Total, S 0.2 0.0 - 1.2 mg/dL 08/25/2023 9:16 AM CDT DTL Bilirubin, Direct, S <0.2 0.0 - 0.3 mg/dL 08/25/2023 9:16 AM CDT DTL Aspartate Aminotransferase (AST), S 43 8 - 48 U/L 08/25/2023 9:16 AM CDT DTL Alanine Aminotransferase (ALT), S 52 7 - 55 U/L 08/25/2023 9:16 AM CDT DTL Alkaline Phosphatase, S 260(H) 40 - 129 U/L 08/25/2023 9:16 AM CDT DTL Albumin, S 3.6 3.5 - 5.0 g/dL 08/25/2023 9:16 AM CDT DTL Protein, Total, S 6.2(L) 6.3 - 7.9 g/dL 08/25/2023 9:16 AM CDT DTL Blood (Blood, Venous) 08/25/2023 8:11 AM CDT 08/25/2023 8:55 AM CDT Storm Nicole M.D. LAB BLOOD ADD-ON [facility] [address] [place] [address], [facility] [address] [place] [address] * (ABNORMAL) Sedimentation Rate (08/25/2023 8:11 AM CDT) Sedimentation Rate, B 27(H) 2 - 20 mm/h 08/25/2023 10:12 AM CDT DTL Blood (Blood, Venous) 08/25/2023 8:11 AM CDT 08/25/2023 8:51 AM CDT Storm Nicole M.D. LAB BLOOD ADD-ON Performing Organization Address City/[facility]/ZIP Co de Phone Number [facility] [address] [place] [address], [facility] DTL [facility] [address] [place] [address] * (ABNORMAL) CBC with Differential, Blood (08/25/2023 8:11 AM CDT) Pathologist [facility] Hemoglobin 11.9(L) 13.2 - 16.6 g/dL 08/25/2023 9:31 AM CDT DTL Hematocrit 37.3(L) 38.3 - 48.6 % 08/25/2023 9:31 AM CDT DTL Erythrocytes 4.14(L) 4.35 - 5.65 x10(12)/L 08/25/2023 9:31 AM CDT DTL MCV 90.1 78.2 - 97.9 fL 08/25/2023 9:31 AM CDT DTL RBC Distrib Width 14.4 11.8 - 14.5 % 08/25/2023 9:31 AM CDT DTL Platelet Count 203 135 - 317 x10(9)/L 08/25/2023 9:31 AM CDT DTL Leukocytes 6.8 3.4 - 9.6 x10(9)/L 08/25/2023 9:31 AM CDT DTL Neutrophils 3.16 1.56 - 6.45 x10(9)/L 08/25/2023 9:31 AM CDT DHPM Lymphocytes 1.88 0.95 - 3.07 x10(9)/L 08/25/2023 9:31 AM CDT DTL Monocytes 0.89(H) 0.26 - 0.81 x10(9)/L 08/25/2023 9:31 AM CDT DTL Eosinophils 0.72(H) 0.03 - 0.48 x10(9)/L 08/25/2023 9:31 AM CDT DTL Basophils 0.10(H) 0.01 - 0.08 x10(9)/L 08/25/2023 9:31 AM CDT DTL Blood (Blood, Venous) 08/25/2023 8:11 AM CDT 08/25/2023 8:51 AM CDT Storm Nicole M.D. LAB BLOOD ADD-ON [facility] [address] [place] [address], [facility] [address] [place] [address] [facility] [address] [place] [address] * CRP (C-Reactive Protein) (08/25/2023 8:11 AM CDT) C-Reactive Protein (CRP), S 3.2 <5.0 mg/L 08/25/2023 9:16 AM CDT DTL Blood (Blood, Venous) 08/25/2023 8:11 AM CDT 08/25/2023 8:55 AM CDT Storm Nicole M.D. LAB BLOOD ADD-ON Performing Organization Address [facility] Co de Phone Number [facility] [address] [place] [address], [facility] [address] [place] [address] * Creatinine with Estimated GFR (08/25/2023 8:11 AM CDT) Creatinine 1.06 0.74 - 1.35 mg/dL 08/25/2023 9:16 AM CDT DTL Estimated GFR (eGFR) 81 >=60 mL/min/BSA 08/25/2023 9:16 AM CDT DTL Comment: Estimated GFR calculated using the 2020 CKD_EPI creatinine equation. Blood (Blood, Venous) 08/25/2023 8:11 AM CDT 08/25/2023 8:55 AM CDT Storm Nicole M.D. LAB BLOOD ADD-ON [facility] [address] [place] [address], [facility] [address] [place] [address] * DX Hip And Pelvis Right 2-3 Views (08/25/2023 7:22 AM CDT) Anatomical Region Laterality Modality Lower Extremity, Pelvis, Hip , Musculoskeletal RST LOS, Musculoskeletal ARZ LOS, Muskuloskeletal FLA LOS Right Digit al Radiography Impressions 08/25/2023 7:43 AM CDT PO resection arthroplasty right hip with articulating cement spacer and wire fixation of the proximal femur. Osteotomy of the lateral cortex proximal right femoral shaft. Soft tissue swelling and scattered heterotopic ossification about the right hip. PO changes of hardware removal in the ilium with small residual screw fragment. Images obtained with external brace. 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 Spondylolysis at L5. Narrative 08/25/2023 7:43 AM CDT EXAM: ??DX HIP AND PELVIS RIGHT 2-3 VIEWS Procedure Note Cynthia Chong M.D. - 08/25/2023 EXAM: DX HIP AND PELVIS RIGHT 2-3 VIEWS IMPRESSION: PO resection arthroplasty right hip with articulating cement spacer andwire fixation of the proximal femur. Osteotomy of the lateral cortexproximal right femoral shaft. Soft tissue swelling and scatteredheterotopic ossification about the right hip. PO changes of hardware removal in the ilium with small residualscrew fragment. Images obtained with external brace. 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 Spondylolysis at L5. Xavi Hicks M.D. IMNomi DIAGNOSTIC NIRMAL GING PROCEDURES * Albumin, Random, Urine (03/10/2023 11:30 AM BRAKE ADJUSTER) Microalbumin <12.0 mg/L 03/10/2023 11:54 AM BRAKE ADJUSTER RDWG Comment:If clinically indica faviola, contact the lab for additional testing. Creatinine 112 mg/dL 03/10/2023 11:54 AM BRAKE ADJUSTER RDWG Albumin/Creatinine Ratio <11 <17 mg/g 03/10/2023 11:54 AM BRAKE ADJUSTER RDWG Comment: This ratio may not correspond with the reference range because one or both of the values used to calculate the ratio was above or below the quantification limits. Urine (Urine, Midstream) 03/10/2023 11:30 AM BRAKE ADJUSTER 03/10/2023 11:30 AM BRAKE ADJUSTER Doug Lima M.D. LAB URINE ORDERABLES [facility] [address] [place] [address], [place] RDWG [facility] in [place] [address] [phone] from Last 3 Months or Most Recently Relevant to Health Maintenance Advance Directives For more information, please contact: [phone] * Full Code (Latest Code Status on File) Date Activated Date Inactivated Comments 05/23/2023 9:31 PM 06/25/2023 12:16 PM Question Answer Comments Full Code: Discussed * Full Code Date Activated Date Inactivated Comments 03/09/2020 11:40 AM 03/14/2020 1:29 PM Question Answer Comments Full Code: Discussed * Full Code Date Activated Date Inactivated Comments 03/09/2020 12:12 AM 03/09/2020 11:40 AM Question Answer Comments Full Code: Not Discussed Due to: Patient not available Care Teams Ampoule Filler And Sealer Relationship Specialty Start Date End Date Elsewhere, Pcp PCP - General Internal Medicine 10/03/23
--- OUTSIDE RECORDS SUMMARY | 2023-11-03 06:31 | XMS_ITS | Encounter Summary ---
Author Organization [facility] Address [address] [place] [address] Care Team Providers Care Terminal Supervisor Name Role Phone Doug Lima M.D. Primary Care Provider + [phone] Encounter Details Date Type Department Care Team (Late st Contact Info) Description 08/26/2023 Orders Only [facility] Doug Lima M.D. [address] [place] [address] Diabetes Mellitus Type 2 Peripheral Neuropathy (HCC) Social History Tobacco Use Types Packs/Day Years Used Date Smoking Tobacco: Never Passive Smoke Exposure: Never Smokeless Tobacco: Never Alcohol Use Standard Drinks/Week Comments Never 2 (1 standard drink = 0.6 oz pur e alcohol) [facility] Utilities Answer Date Recorded In the past 12 months has e [employer], gas, oil, or water [employer] threatened to shut off services in your [...] (Latest Contact Info) Description 01/02/2024 11:30 AM HEEL SEAT FILLER Clinical Communication Virtual Review in [place], [place] [address] [place] [address] 01/05/2024 9:20 AM HEEL SEAT FILLER Lab Department of Infusion Therapy in [place], [place] [address] [place] [phone] Vel Vinson M.D., M.B.A. [address] [place] [phone] 01/05/2024 10:15 AM HEEL SEAT FILLER Appointment Department of Radiology, [facility], in [place], [place] [address] [place] [address] [phone] Vel Vinson M.D., M.B.A. [address] [place] [phone] 01/05/2024 10:45 AM HEEL SEAT FILLER Comprehensive Visit Section of Infectious Diseases in [place], [place] [address] [place] [phone] Maddy Bingham P.A.-C. [address] [place] [phone] 01/05/2024 11:15 AM HEEL SEAT FILLER Office Visit Department of Orthopedic Surgery in [place], [place] [address] [place] [phone] Vel Vinson M.D., M.B.A. [address] [place] [phone] 01/06/2024 Hospital Encounter RST ROEI 02 4 AM ADMIT [address] [place] [address] [phone] Vel Vinson M.D., M.B.A. [address] [place] [phone] Scheduled Procedures Name Priority Associated Diagnoses Date/Ti me ARTHROPLASTY REVISION FEMORAL+ACETABULAR HIP Infection Total Hip Arthroplasty Subsequent Right documented as of this encounter Visit Diagnoses Diagnosis Diabetes Mellitus Type 2 Peripheral Neuropathy (HCC) documented in this encounter Care Teams Terminal Supervisor Relationship Specialty Start Date End Date Doug Lima M.D. [address] [phone] PCP - General Family Medicine 01/28/17 10/02/23 documented as of this encounter
--- OUTSIDE RECORDS SUMMARY | 2023-11-03 06:31 | XMS_ITS | Encounter Summary ---
Author Organization [facility] Address [address] [place] [address] Care Team Providers Care Labeler Name Role Phone Doug Lima M.D. Primary Care Provider + [phone] Encounter Details Date Type Department Care Team (Late st Contact Info) Description 08/27/2023 Clinical Communication Department of Neurologic Surgery in [place], [place] [address] [place] [address] Fantasma Butt M.D. [address] [place] [address] Social History Tobacco Use Types Packs/Day Years Used Date Smoking Tobacco: Never Passive Smoke Exposure: Never Smokeless Tobacco: Never Alcohol Use Standard Drinks/Week Comments Never 2 (1 standard drink = 0.6 oz pur e alcohol) [facility] Utilities Answer Date Recorded In the past 12 months has [employer] gas, oil, or water [employer] threatened to shut off services in your [...] (Latest Contact Info) Description 01/02/2024 11:30 AM DATA ENTRY SUPERVISOR Clinical Communication Virtual Review in [address] [phone] 01/05/2024 9:20 AM DATA ENTRY SUPERVISOR Lab Department of Infusion Therapy in [place], [place] [address] [place] [phone] Vel Vinson M.D., M.B.A. [address] [place] [phone] 01/05/2024 10:15 AM DATA ENTRY SUPERVISOR Appointment Department of Radiology, [facility], in [place], [place] [address] [place] [address] [phone] Vel Vinson M.D., M.B.A. [address] [place] [address] [phone] 01/05/2024 10:45 AM DATA ENTRY SUPERVISOR Comprehensive Visit Section of Infectious Diseases in [place], [place] [address] [place] [phone] Maddy Bingham P.A.-C. [address] [place] [phone] 01/05/2024 11:15 AM DATA ENTRY SUPERVISOR Office Visit Department of Orthopedic Surgery in [place], [place] [address] [place] [phone] Vel Vinson M.D., M.B.A. [address] [place] [phone] 01/06/2024 Hospital Encounter RST ROEI 02 4 AM ADMIT [address] [place] [address] [phone] Vel Vinson M.D., M.B.A. [address] [place] [phone] Scheduled Procedures Name Priority Associated Diagnoses Date/Ti me ARTHROPLASTY REVISION FEMORAL+ACETABULAR HIP Infection Total Hip Arthroplasty Subsequent Right documented as of this encounter Visit Diagnoses Not on filedocumented in this encounter Care Teams Labeler Relationship Specialty Start Date End Date Doug Lima M.D. [address] [place] [phone] PCP - General Family Medicine 01/28/17 10/02/23 documented as of this encounter
--- OUTSIDE RECORDS SUMMARY | 2023-11-03 06:31 | XMS_ITS | Encounter Summary ---
Author Organization [facility] Address [address] [place] [address] Care Team Providers Care Production Zone Leader Name Role Phone Doug Lima M.D. Primary Care Provider + [phone] Encounter Details Date Type Department Care Team (Late st Contact Info) Description 10/01/2023 Abstract [place], [place] [address] [place] [address] Provider, Historical Social History Tobacco Use Types Packs/Day Years Used Date Smoking Tobacco: Never Passive Smoke Exposure: Never Smokeless Tobacco: Never Alcohol Use Standard Drinks/Week Comments Never 2 (1 standard drink = 0.6 oz pur e alcohol) [facility] Utilities Answer Date Recorded In the past 12 months has e [employer], gas, oil, or water [place] threatened to shut off services in your [...] (Latest Contact Info) Description 01/02/2024 11:30 AM MANAGER DISH Clinical Communication Virtual Review in [place], [place] 200 [place] [phone] 01/05/2024 9:20 AM MANAGER DISH Lab Department of Infusion Therapy in [address] [phone] Vel Vinson M.D., M.B.A. [address] [place] [phone] 01/05/2024 10:15 AM MANAGER DISH Appointment Department of Radiology, [facility], in [place], [place] [address] [place] [phone] Vel Vinson M.D., M.B.A. [address] [place] [phone] 01/05/2024 10:45 AM MANAGER DISH Comprehensive Visit Section of Infectious Diseases in [place], [place] [address] [place] [phone] Maddy Bingham P.A.-C. [address] [place] [phone] 01/05/2024 11:15 AM MANAGER DISH Office Visit Department of Orthopedic Surgery in [place], [place] [address] [place] [phone] Vel Vinson M.D., M.B.A. [address] [place] [address] [phone] 01/06/2024 Hospital Encounter RST ROEI 02 4 AM ADMIT [address] [place] [phone] Vel Vinson M.D., M.B.A. [address] [place] [phone] Scheduled Procedures Name Priority Associated Diagnoses Date/Ti me ARTHROPLASTY REVISION FEMORAL+ACETABULAR HIP Infection Total Hip Arthroplasty Subsequent Right documented as of this encounter Visit Diagnoses Not on filedocumented in this encounter Care Teams Production Zone Leader Relationship Specialty Start Date End Date Doug Lima M.D. [address] [place] [phone] PCP - General Family Medicine 01/28/17 10/02/23 documented as of this encounter
--- OUTSIDE RECORDS SUMMARY | 2023-11-03 06:31 | XMS_ITS | Encounter Summary ---
Author Organization [facility] Address [address] [place] [address] Care Team Providers Care Construction Management Instructor Name Role Phone Doug Lima M.D. Primary Care Provider + [phone] Encounter Details Date Type Department Care Team ([facility] st Contact Info) Description 09/08/2023 Orders Only Section of Infectious Diseases in [place], [place] [address] [place] [phone] Storm Nicole M.D. [address] [place] [phone] Infection Total Hip Arthroplasty Subsequent Right (Primary Dx) Social History Tobacco Use Types Packs/Day Years Used Date Smoking Tobacco: Never Passive Smoke Exposure: Never Smokeless Tobacco: Never Alcohol Use Standard Drinks/Week Comments Never 2 (1 standard drink = 0.6 oz pur e alcohol) [facility] Utilities Answer Date Recorded In the past 12 months has [employer], oil, or water [employer] threatened to shut off services in your [...] (Latest Contact Info) Description 01/02/2024 11:30 AM BLACK PICKLER Clinical Communication Virtual Review in [place], [place] [address] [place] [phone] 01/05/2024 9:20 AM BLACK PICKLER Lab Department of Infusion Therapy in [place], [place] [address] [place] [phone] Vel Vinson M.D., M.B.A. [address] [place] [phone] 01/05/2024 10:15 AM BLACK PICKLER Appointment Department of Radiology, [facility], in [place], [place] [address] [place] [phone] Vel Vinson M.D., M.B.A. [address] [place] [phone] 01/05/2024 10:45 AM BLACK PICKLER Comprehensive Visit Section of Infectious Diseases in [place], [place] [address] [place] [phone] Maddy Bingham P.A.-C. [address] [place] [address] [phone] 01/05/2024 11:15 AM BLACK PICKLER Office Visit Department of Orthopedic Surgery in [place], [place] [address] [place] [phone] Vel Vinson M.D., M.B.A. [address] [place] [address] [phone] 01/06/2024 Hospital Encounter RST ROEI 02 4 AM ADMIT [address] [place] [address] [phone] Vel Vinson M.D., M.B.A. [address] [place] [phone] Scheduled Orders Name Type Priority Associated Diagnoses Orde r Schedule Hepatic Function Panel Lab Routine Infection Total Hip Arthroplasty Subsequent Right Expected: 12/02/2023, Expires: 12/08/2024 Scheduled Procedures Name Priority Associated Diagnoses Date/Ti me ARTHROPLASTY REVISION FEMORAL+ACETABULAR HIP Infection Total Hip Arthroplasty Subsequent Right documented as of this encounter Visit Diagnoses Diagnosis Infection 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 Total Hip Arthroplasty Subsequent Right- Primary documented in this encounter Care Teams Construction Management Instructor Relationship Specialty Start Date End Date Doug Lima M.D. [address] [place] [phone] PCP - General Family Medicine 01/28/17 10/02/23 documented as of this encounter
--- OUTSIDE RECORDS SUMMARY | 2023-11-03 06:31 | XMS_ITS | Encounter Summary ---
Author Organization [facility] Address [address] [place] [address] Care Team Providers Care Rural Service Engineer Name Role Phone Doug Lima M.D. 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 [address] [place] [phone] [facility] Referral ID Status Reason Start Date Expiration Date Visits Re quested Visits Authorized [id number] Closed 08/27/2023 08/26/2024 1 1 Encounter Details Date Type Department Care Team (Late st Contact Info) Description 08/27/2023 Orders Only Department of Neurologic Surgery in [place], [place] [address] [place] [phone] Rosalie Sosa R.N., CNRN [address] [place] [phone] Stenosis Carotid Artery Right (Primary Dx); Occlusion Carotid Artery Left; Peripheral Arterial Disease (HCC); Stroke (HCC); Infection Total Hip Arthroplasty Subsequent Right; Hemiplegia Flaccid Dominant Side Right (HCC) Social History Tobacco Use Types Packs/Day Years Used Date Smoking Tobacco: Never Passive Smoke Exposure: Never Smokeless Tobacco: Never Alcohol Use Standard Drinks/Week Comments Never 2 (1 standard drink = 0.6 oz pur e alcohol) [facility] Utilities Answer Date Recorded In the past 12 months has th e electric, gas, oil, or water company threatened to [...] (Latest Contact Info) Description 01/02/2024 11:30 AM POINT OF SALE ASSOCIATE Clinical Communication Virtual Review in [place], [place] [address] [place] [phone] 01/05/2024 9:20 AM POINT OF SALE ASSOCIATE Lab Department of Infusion Therapy in [address] [phone] Vel Vinson M.D., M.B.A. [address] [place] [phone] 01/05/2024 10:15 AM POINT OF SALE ASSOCIATE Appointment Department of Radiology, [facility], in [address] [phone] Vel Vinson M.D., M.B.A. [address] [place] [phone] 01/05/2024 10:45 AM POINT OF SALE ASSOCIATE Comprehensive Visit Section of Infectious Diseases in [address] [phone] Maddy Bingham P.A.-C. [address] [place] [phone] 01/05/2024 11:15 AM POINT OF SALE ASSOCIATE Office Visit Department of Orthopedic Surgery in [address] [phone] Vel Vinson M.D., M.B.A. [address] [place] [phone] 01/06/2024 Hospital Encounter RST ROEI 02 4 AM ADMIT [address] [place] [phone] Vel Vinson M.D., M.B.A. 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 [address] [place] [phone] PCP - General Family Medicine 01/28/17 10/02/23 documented as of this encounter
--- OUTSIDE RECORDS SUMMARY | 2023-11-03 06:31 | XMS_ITS | Encounter Summary ---
Author Organization [facility] Address [address] [place] [address] Care Team Providers Care Canceling Machine Operator Name Role Phone Doug Lima M.D. Primary Care Provider + [phone] Reason for Referral * Outpatient (Routine) - Closed Specialty Diagnoses / Procedures Referred By Tammi basilio Referred To Contact Diagnoses Stenosis Carotid Artery Bilateral Procedures US Carotid Bilateral Radha Ojeda P.A.-C., M.S. [address] [place] [address] [facility] Referral ID Status Reason Start Date Expiration Date Visits Re quested Visits Authorized [id number] Closed 04/16/2023 04/15/2024 1 1 Reason for Visit * Outpatient (Routine) - Closed Specialty Diagnoses / Procedures Referred By Tammi basilio Referred To Contact Diagnoses Stenosis Carotid Artery Bilateral Procedures US Carotid Radha Lerner P.A.-C., M.S. [address] [place] [address] [facility] Referral ID Status Reason Start Date Expiration Date Visits Re quested Visits Authorized [id number] Closed 04/16/2023 04/15/2024 1 1 Encounter Details Date Type Department Care Team (Latest Contact Info) Description 08/25/2023 12:11 PM CDT - 08/25/2023 11:59 PM CDT Hospital Encounter Department of Radiology, [facility] in [place], [place] [address] [place] [address] Radha Ojeda P.A.-C., [place] [address] Stenosis Carotid Artery Bilateral Discharge Disposition: Home or Self Care Social History Tobacco Use Types Packs/Day Years Used Date Smoking Tobacco: Never Passive Smoke Exposure: Never Smokeless Tobacco: Never Alcohol Use Standard Drinks/Week Comments Never 2 (1 standard drink = 0.6 oz pur e alcohol) [facility] Utilities Answer Date Recorded In the past 12 months has [employer], gas, oil, or water [employer] threatened to shut off services in your [...] PM CDT documented as of this encounter Medications at Time of Discharge Medication Sig Dispensed Refills Start Date End Date acetaminophen (TYLENOL) 500 mg tablet Take 2 tablets (1,000 mg total) by mouth every 6 (six) hours as needed for mild pain or score 1-3 of 10 or moderate pain or score 4-6 of 10. 03/20/2023 amitriptyline 2%,gabapentin 5%,lidocaine 5%-vanicream Apply topically 2 (two) times a day. Apply to affected area. 60 g 3 06/25/2023 atorvastatin (LIPITOR) 20 mg tablet Take 1 tablet (20 mg total) by mouth at bedtime. 30 tablet 1 06/25/2023 bisacodyL (DULCOLAX) 5 mg EC tablet Take 2 tablets (10 mg total) by mouth 2 (two) times a day as needed for constipation. 06/25/2023 blood glucose ctl high,nml,low solution Glucose control solution provides an easy way to ensure accurate blood glucose testing. 1 each 07/29/2022 blood sugar diagnostic strips 1 test daily. 30 test 07/29/2022 blood-glucose meter (FreeStyle [place]) kit Use as instructed 1 each 07/29/2022 calcium carbonate (TUMS) 500 mg (200 mg calcium) chewable tablet Administer 1 tablet (200 mg of calcium total) via gastric tube every 2 (two) hours as needed for indigestion or heartburn. 06/25/2023 carboxymethylcellulose (REFRESH PLUS) 0.5 % ophthalmic solution Administer 2 drops into both eyes 4 (four) times a day as needed for dry eyes. 50 each 06/25/2023 flash glucose scanning reader (FreeStyle Jessica 2 [place]) miscIndications:Diabete s Mellitus Type 2 Ulcer Foot Hyperglycemic (HCC) 1 each (1 Device total) continuously. 1 each 1 08/01/2022 hydrocortisone 1 % ointment Apply topically as needed. 08/11/2023 insulin NPH (NovoLIN N FlexPen) 100 unit/mL (3 mL) injection Inject 10-20 Units under the skin 2 (two) times a day with meals. 15 mL 11 06/25/2023 lancets 1 each daily. 50 each 07/29/2022 levETIRAcetam (Keppra) 100 mg/mL solution Take 7.5 mL (750 mg total) by mouth 2 (two) times a day. 06/25/2023 Novofine Autocover 30 gauge x 1/3 needle 06/25/2023 nystatin (Mycostatin) 100,000 unit/gram cream Apply 1 Application topically as needed. 08/11/2023 oxyCODONE (Roxicodone) 5 mg immediate release tablet Take 5 mg by mouth as needed. 07/11/2023 pen needle, diabetic (BD Ultra-Fine Short Pen Needle) 31 gauge x 5/16 needle 1 Injection daily. 100 each 3 12/31/2022 zinc oxide 20 % ointment Apply topically as needed. 07/31/2023 flash glucose sensor (FreeStyle Jessica 2 Sensor) kitIndications:Diabetes Mellitus Type 2 Ulcer Foot Hyperglycemic (HCC) 2 each (2 kits total) every 14 (fourteen) days. 2 kit 11 10/09/2022 10/09/2023 enoxaparin (LOVENOX) 40 mg/0.4 mL injection Inject 0.4 mL (40 mg total) under the skin 2 (two) times a day. 06/26/2023 08/28/2023 documented as of this encounter Plan of Treatment Upcoming Encounters Date Type Department Care Team (Latest Contact Info) Description 01/02/2024 11:30 AM CHASSIS WIRER Clinical Communication Virtual Review in [place], [place] [address] [place] [phone] 01/05/2024 9:20 AM CHASSIS WIRER Lab Department of Infusion Therapy in [place], [place] [address] [place] [phone] Vel Vinson M.D., M.B.A. [address] [place] [phone] 01/05/2024 10:15 AM CHASSIS WIRER Appointment Department of Radiology, [facility], in [place], [place] [address] [place] [phone] Vel Vinson M.D., M.B.A. [address] [place] [phone] 01/05/2024 10:45 AM CHASSIS WIRER Comprehensive Visit Section of Infectious Diseases in [place], [place] [address] [place] [phone] Maddy Bingham P.A.-C. [address] [place] [phone] 01/05/2024 11:15 AM CHASSIS WIRER Office Visit Department of Orthopedic Surgery in [address] [phone] Vel Vinson M.D., M.B.A. [address] [place] [phone] 01/06/2024 Hospital Encounter [facility] 02 4 AM ADMIT [address] [place] [phone] Vel Vinson M.D., M.B.A. [address] [place] [phone] Scheduled Procedures Name Priority Associated Diagnoses Date/Ti me ARTHROPLASTY REVISION FEMORAL+ACETABULAR HIP Infection Total Hip Arthroplasty Subsequent Right documented as of this encounter Procedures Procedure Name Priority Date/Time Associated Diagnosis Comments US CAROTID BILATERAL RAD - Routine (most inpatients and all outpatients) 08/25/2023 1:26 PM CDT Stenosis Carotid Artery Bilateral documented in this encounter Results * US Carotid Bilateral (08/25/2023 1:26 [...] normal distal ICA in accordance with [place] Symptomatic Carotid Endarterectomy Trial (NASCET). Procedure Note [...] the ICA. Velocities in the stent of rgaethheo835hs/sec with mild narrowing of the stent seen [...] left ICA. Velocities in the stent of zsgtigeih240cc/sec with mild narrowing of the stent seen and velocities proximal tothis narrowing are 82cm/sec. Findings consistent with mild in stentnarrowing. No significant stenosis. 3) Stable bilateral ECA stenoses. 4) Right vertebral artery 50-69% stenosis, at the lower end of the range.Stable left vertebral artery 70-99% stenosis. Luanne Knapp P.A.-C. documented in this encounter Visit Diagnoses Diagnosis Stenosis Carotid Artery Bilateral documented in this encounter Care Teams Canceling Machine Operator Relationship Specialty Start Date End Date Doug Lima M.D. [address] [place] [phone] PCP - General Family Medicine 01/28/17 10/02/23 documented as of this encounter
--- OUTSIDE RECORDS SUMMARY | 2023-11-03 06:31 | XMS_ITS | Encounter Summary ---
Author Organization [facility] Address [address] [place] [address] Care Team Providers Care Demi Chef Name Role Phone Elsewhere, Pcp Primary Care Provider Unavailabl e Reason for Referral * Outpatient (Routine) - Authorized Specialty Diagnoses / Procedures Referred By Tammi t Referred To Contact Neurology Balbir Maradiaga M.D. [address] [place] [phone] [facility] Referral ID Status Reason Start Date Expiration Date V isits Requested Visits Authorized [id number] Authorized 10/03/2023 04/03/2025 1 1 Scheduling Instructions Please schedule for after electroencephalogram in May of 2024 * Outpatient (Routine) - Authorized Specialty Diagnoses / Procedures Referred By Tammi t Referred To Contact Diagnoses Seizure (HCC) Procedures EEG routine - awake and sleep Balbir Maradiaga M.D. [address] [place] [phone] [facility] Referral ID Status Reason Start Date Expiration Date V isits Requested Visits Authorized [id number] Authorized 10/03/2023 10/02/2024 1 1 Reason for Visit * Outpatient (Routine) - Closed Specialty Diagnoses / Procedures Referred By Contac t Referred To Contact Neurology Diagnoses Stroke (HCC) Veronica Hill M.D., M.S. [address] [place] [phone] [facility] Referral ID Status Reason Start Date Expiration Date Visits Re quested Visits Authorized [id number] Closed 06/25/2023 12/24/2024 1 1 Encounter Details Date Type Department Care Team (Latest Contact Info) Description 10/03/2023 1:00 PM CDT Comprehensive Visit Department of Neurology in [place], [place] [address] [place] [phone] Balbir Maradiaga M.D. [address] [place] [phone] Stroke Cerebrovascular Accident Personal History (Primary Dx); Seizure (HCC); Stenosis Carotid Artery Left Social History Tobacco Use Types Packs/Day Years Used Date Smoking Tobacco: Never Passive Smoke Exposure: Never Smokeless Tobacco: Never Alcohol Use Standard Drinks/Week Comments Never 2 (1 standard drink = 0.6 oz pur e alcohol) [facility] Utilities Answer Date Recorded In the past 12 months has [employer], gas, oil, or water [employer] threatened to shut off services in your [...] PM CDT documented as of this encounter Last Filed Vital Signs Vital Sign Reading Time Taken Comments Blood Pressure 148/85 10/03/2023 12:57 PM CDT Pulse 58 10/03/2023 12:57 PM CDT Temperature - - Respiratory Rate - - Oxygen Saturation - - Inhaled Oxygen Concentration - - Weight 84.5 kg (186 lb 4.6 oz) 10/03/2023 12:57 PM CDT verbal Height 180.3 cm (5' 11) 10/03/2023 12:57 PM CDT verbal Body Mass Index 25.98 10/03/2023 12:57 PM CDT documented in this encounter Consult Notes * Jonna Smith M.D. - 10/03/2023 1:00 PM CDT SUBJECTIVE CHIEF COMPLAINT / REASON FOR VISIT Estevan Lester is a 58 y.o. 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 HISTORY OF PRESENT ILLNESS Mr. Estevan Lester is a left-handed 58 year old male with PMH significant for high-grade bilateral internal carotid artery stenosis s/p angioplasty of the right internal carotid artery (07/2022) c/b restenosis s/p drug coated angioplasty (03/21/2023) and left internal carotid artery stent (05/2023), hypertension, hyperlipidemia, type 2 diabetes on insulin, MICHELET, PAD, right total hip arthroplastyinfected with MSSA s/p arthroplasty explant with replacement of articulating antibiotic spacer 05/23/2023 that was complicated by left MCA infarct and total occlusion of left ICA s/p thrombectomy of L M2 and stenting of left ICA for which the patient is following up. Mr. Lester is present with h is sister, Lor, sister Annamaria, and [id number], Ashutosh who help provide co- lateral history. [facility] from the hospital to a usp. He continues to work with physical therapy and occupational therapy there and has noticed improvements in strength and language, but his improves have plateaued more recently. He has not had any stroke-like symptoms since leaving the hospital. He alsodenies any episodes concerning for seizure. His follow-up Doppler ultrasound showed patency of the left internal carotid artery stent and restenosis of the right carotid stent. Neurosurgery did not recommend retreatment of the right carotid restenosis, and in the absence of any new symptoms, a follow-up bilateral carotid ultrasound in 6-12 months. He was switched from Lovenox to an equivalent dose of Xarelto (10 mg daily) for DVT prophylaxis with his immobility. At the same time, his ticagrelorwas discontinued and he continues on Aspirin 81 mg daily as monotherapy. He continues on atorvastatin 20 mg daily and his lipid panel on 09/23/2023 showed an LDL of 56. His most recent HA1C on 09/02/2023 was 5.3. He was started on Lisinopril 5 mg for hypertension. He has continued his Keppra 750 mgBID with no significant mood changes. At this time, Mr. Lester is not using any alcohol, tobacco, or other substances. OBJECTIVE PHYSICAL EXAM Neuro: Mental Status: Alert and oriented to person, place, time, and situation. Able to name months of year backwards correctly but with significant delays. Fluency of speech was slowed with evidence of persistent dysarthria and expressive > receptive aphasia. Naming testing of high and low-frequency objects intact. Follows simple 1-step and embedded commands with repeated coaching. Repetition testing to simple sentences was normal, complex sentences were impaired. Right/Left confusion was not present. Cranial Nerves: I - Not assessed. II - Pupils equal, round, and reactive to light. Fully intact visual stevenson bilaterally via counting fingers. No relative afferent pupillary defect bilaterally. III, IV, - Extraocular movements intact without nystagmus. V - Intact to light touch in all distributions. VII - Mild right lower facial droop facies with normal palpebral fissures and forced eyelid closure. Normal forehead elevation and furrowing. VIII - Hears finger rub symmetrically. IX/X - Palate elevates symmetrically. XI - Shoulder shrug is symmetric and strong. XII - Tongue protrudes at midline with normal strength to the left and right. Motor Examination: Bulk evaluation shows mild atrophy on the right hemibody. There are no abnormal movements observed.Tone is spastic on the right. Rapid alternating movements are normal on the left. There is no tremor. Strength: 0: full strength, -1: 25% decrease in strength, -2: 50% decrease in strength, -3: 75% decrease in strength, -4: no movement Right Left Arm abduction -3.75 0 Elbow flexion -3 0 Elbow extension -3 0 Wrist extension -3.25 0 Finger extension -3.25 0 Finger flexion -3.75 0 Hip flexion -3.5 0 Knee flexion -2 0 Knee extension -3 0 Ankle dorsiflexion -2 0 Ankle plantarflexion -2 0 Sensory Examination: Reduced sensation to light touch, pinprick, vibration, and proprioception on the right hemibody. Noneglect. Coordination: Lfwjpr-qz-aidh and jgkj-cl-atsa testing is normal on the left. ASSESSMENT / PLAN # Left MCA infarct and total occlusion of left ICA s/p thrombectomy of L M2 and stenting of left ICA (05/2023) # High-grade bilateral internal carotid artery stenosis s/p angioplasty of the right internal carotid artery (07/2022) c/b restenosis s/p drug coated angioplasty (03/21/2023) and left internal carotid artery stent (05/2023) # Hypertension # Hyperlipidemia # Type 2 diabetes # MICHELET # PAD # Right total hip arthroplasty infected with MSSA s/p arthroplasty explant with replacement of articulating antibiotic spacer 05/23/2023 Mr. Estevan Lester is a left-handed 58 year old male with PMH significant for high-grade bilateral internal carotid artery stenosis s/p angioplasty of the right internal carotid artery (07/2022) c/b restenosis s/p drug coated angioplasty (03/21/2023) and left internal carotid artery stent (05/2023), hypertension, hyperlipidemia, type 2 diabetes on insulin, MICHELET, PAD, right total hip arthroplastyinfected with MSSA s/p arthroplasty explant with replacement of articulating antibiotic spacer 05/23/2023 that was complicated by left MCA infarct and total occlusion of left ICA s/p thrombectomy of L M2 and stenting of left ICA for which the patient is following up. He has had improvements in stren gth and language, but his improves have plateaued more recently. We discussed that further improvement can still be expected up to a year or more out from the stroke, and that his continued participation with therapies will be of benefit. He has not had any stroke-like symptoms since leaving the hospital and no episodes concerning for seizure. His follow-up Doppler ultrasound showed patency of the left internal carotid artery stent and restenosis of the right carotid stent. Neurosurgery did notrecommend retreatment of the right carotid restenosis, and in the absence of any new symptoms, a follow-up bilateral carotid ultrasound in 6-12 months. At this time, he is on Xarelto 10 mg daily for DVT prophylaxis with his immobility, aspirin 81 mg daily, atorvastatin 20 mg daily, lisinopril 5 mg daily, and Keppra 750 mg BID. His recent lipid panel on 09/23/2023 was excellent with an LDL of 56, and his most recent HA1C on 09/02/2023 was 5.3. We will touch base with both Dr. Gordon and Dr. Butt to clarify the final anti-platelet plan. Otherwise, we recommend continuation of current medical therapy. We will repeat an EEG in 12 months to assess the need for ongoing Keppra at that time. Plan: Continue current medical therapy with Xarelto 10 mg daily for DVT prophylaxis with his immobility, aspirin 81 mg daily, atorvastatin 20 mg daily, lisinopril 5 mg daily, and Keppra 750 mg BID We will touch base with Dr. Gordon and Dr. Butt to clarify the final anti- platelet plan EEG in 12 months to assess the need for ongoing Keppra Agree with repeat bilateral carotid artery ultrasound in 6-12 months to assess carotid artery stenosis Follow-up with neurology in 12 months after EEG Jonna Smith MD PGY-2 * Balbir Maradiaga M.D. - 10/03/2023 1:00 PM CDT I have reviewed the history, examination, and plan of care of Dr. Smith's note as documented on the electronic neurologic examination and history. I have personally interviewed and examined the patient. I agree with the documentation, other than where indicated in my note. This patient was well known to [facility], he was a 58-year-old left-handed gentleman with a history of a cervical right ICA carotid stenting (July of 2022) with in stent restenosis status post angioplasty of the carotid (April 08, 2023) who was readmitted in the setting of a left ICA occlusion in May of 2023 following a hip revision surgery, he underwent mechanical thrombectomy of a left M1 occlusion and carotid angioplasty and stenting of an acute cervical left ICA occlusion. He had a resultant left hemispheric syndrome. Note that there was question of an in-house seizure and he was placed on levetiracetam 750 mg twice daily by mouth He is nonweightbearingon the operated right hip and has a resultant aphasia and right hemiparesis. He completed a course of dual antiplatelet therapy without additional complication. An in-depth cerebrovascular inventory has disclose no additional stroke-like symptoms. He was currently at a senior care facility receiving therapies for stroke recovery. Antithrombotics regimen consists of rivaroxaban 10 mg daily by mouth and aspirin 81 mg daily by mouth. He was on atorvastatin 20 mg daily in his LDL is at goal at 56 mg/dL. I have reviewed the remainder of the past medical history medications family history social historyavailable in the electronic health record. On examination he was alert in emotional and teary eyed he was an obvious global yet motor predominant aphasia that is [id number] and a right hemiparesis with some movement at the shoulder but no real movement of the right hand. IMPRESSION #1 Stroke cerebrovascular personal history left hemispheric stroke secondary to high-grade cervicalleft ICA stenosis in the setting of a postoperative hip revision now status post angioplasty and stenting with partial left MCA syndrome and neurologic morbidity #2 Seizure #3 High-grade asymptomatic right internal carotid artery in-stent restenosis Continue Xarelto 10 mg while the hip is immobilized. Continue antiplatelet agent. I will write to both our colleagues in Neurology and Neurosurgery to clarify the preferred single antiplatelet agent.Continue lipid lowering therapy at current dose LDL is at goal at 56 mg/dL. Continue rehabilitation efforts. I think it would be reasonable to obtain a carotid ultrasound to follow up the left ICA stent in one year's time as well to check on the high-grade asymptomatic right internal carotid artery asymptomatic in stent restenosis. I will repeat an EEG and then consider discontinuing levetiracetam. Given that he was immobilized from the hip with a spacer I do not want to take the risk of an additional seizure and therefore I think it maintaining on levetiracetam is most reasonable and safe at this time. Plan of care discussed in detail with Mr. Lester and he is in agreement with the plan, family members present today in clinic also in agreement with the plan. Criteria for return to emergency department were reviewed in detail. I wished him well in his continued recovery. Remainder is per the documentation of Dr. Smith 60 minutes Electronically signed by: Balbir Maradiaga M.D. 10/03/23 3:57 PM CDT Diagnosis Plan 1. Stroke Cerebrovascular Accident Personal History Neurology - Cerebrovascular consult (clinic) 2. Seizure (HCC) EEG routine - awake and sleep 3. Stenosis Carotid Artery Left documented in this encounter Plan of Treatment Upcoming Encounters Date Type Department Care Team (Latest Contact Info) Description 01/02/2024 11:30 AM DELIVERY MAN Clinical Communication Virtual Review in [place], [place] [address] [place] [phone] 01/05/2024 9:20 AM DELIVERY MAN Lab Department of Infusion Therapy in [place], [place] [address] [place] [phone] Vel Vinson M.D., M.B.A. [address] [place] [phone] 01/05/2024 10:15 AM DELIVERY MAN Appointment Department of Radiology, [facility], in [place], [place] [address] [place] [phone] Vel Vinson M.D., M.B.A. [address] [place] [phone] 01/05/2024 10:45 AM DELIVERY MAN Comprehensive Visit Section of Infectious Diseases in [place], [place] [address] [place] [phone] Maddy Bingham P.A.-C. [address] [place] [phone] 01/05/2024 11:15 AM DELIVERY MAN Office Visit Department of Orthopedic Surgery in [place], [place] [address] [place] [phone] Vel Vinson M.D., M.B.A. [address] [place] [phone] 01/06/2024 Hospital Encounter [facility]ST [facility] 02 4 AM ADMIT [address] [place] [phone] Vel Vinson M.D., M.B.A. [address] [place] [phone] Scheduled Orders Name Type Priority Associated Diagnoses Orde r Schedule EEG routine - awake and sleep Neurology Routine Seizure (HCC) Expected: 10/02/2024, Expires: 01/02/2025 Scheduled Procedures Name Priority Associated Diagnoses Date/Ti me ARTHROPLASTY REVISION FEMORAL+ACETABULAR HIP Infection Total Hip Arthroplasty Subsequent Right Scheduled Referrals Name Type Priority Associated Diagnoses Orde r Schedule Neurology office visit (clinic) Outpatient Referral Routine Expected: 10/02/2024, Expires: 01/02/2025 documented as of this encounter Visit Diagnoses Diagnosis Infection Total Hip Arthroplasty Subsequent Right- Primary Stroke Cerebrovascular Accident Personal History- Primary Seizure (HCC) Stenosis Carotid Artery Left documented in this encounter Care Teams Demi Chef Relationship Specialty Start Date End Date Elsewhere, Pcp PCP - General Internal Medicine 10/03/23 documented as of this encounter
--- OUTSIDE RECORDS SUMMARY | 2023-11-03 06:31 | XMS_ITS | Clinical Summary ---
Author Organization [facility] Address [address] [place] [address] Care Team Providers Care Advanced Manufacturing Vice President Name Role Phone Elsewhere, Pcp Primary Care Provider Unavailabl e Source Comments Patient records contain information from all sites at [facility]. For routine questions regarding patient records, call [phone] during business hours, M-F 8:00 AM - 5:00 PM Central Time. Record requests for emergency care only can be directed to [phone] at any time.[facility] Allergies Active Allergy Reactions Criticality Noted Date Comments Cefazolin Other (see comments) 08/25/2023 Possible increase in alkaline phosphatase please see ID notes Medications Medication Sig Dispensed Refills Start Date End Date Status lancets 1 each daily. 50 each 07/29/2022 Active blood sugar diagnostic strips 1 test daily. 30 test 07/29/2022 Active blood-glucose meter (FreeStyle [place]) kit Use as instructed 1 each 07/29/2022 Active blood glucose ctl high,nml,low solution Glucose control solution provides an easy way to ensure accurate blood glucose testing. 1 each 07/29/2022 Active flash glucose scanning reader (FreeStyle Jessica 2 [place]) miscIndications:Bhargavi betes Mellitus Type 2 Ulcer Foot [...] 07/11/2023 Active Novofine Autocover 30 gauge x /3 needle 06/25/2023 Active zinc oxide 20 % [...] Date Resolved Date Failure To Thrive Adult 07/29/202207/18 Screening Cancer Colon 04/17/202007/30 Overview (04/17/2020): Added automatically from request for surgery [id number] Hyponatremia 03/09/2020 07/30/2022 Hyperkalemia 03/09/2020 07/30/2022 Cellulitis 03/08/2020 03/20/2020 Cellulitis Foot Right 03/08/20202022 Diabetes Mellitus Type 2 Hyperglycemia 02/18/2017 04/17/2022 Diabetes Mellitus Type 2 Ulcer Foot 04/17/2022 Encounters Date Type Department Care Team Description 11/03/2023 Intake [facility] 10/21/2023 Clinical Communication Department of Orthopedic Surgery in [address] [phone] Vel Vinson M.D., M.B.A. 10/03/2023 1:00 PM CDT Comprehensive Visit Department of Neurology in [address] [phone] Balbir Maradiaga M.D. Stroke Cerebrovascular Accident Personal History (Primary Dx); Seizure (HCC); Stenosis Carotid Artery Left 10/01/2023 [place], [place] [address] [place] [phone] Provider, Historical 09/24/2023 2:45 PM CDT Clinical Communication Virtual Review in [place], [place] [address] [place] [address] 09/08/2023 Orders Only Section of Infectious Diseases in [address] [phone] Storm Nicole M.D. Infection Total Hip Arthroplasty Subsequent Right (Primary Dx) 08/28/2023 11:00 AM CDT Internal E-Consult Department of Vascular Medicine in [address] [phone] Gaudencio Escobedo M.D. Occlusion Carotid Artery Left (Primary Dx); Stenosis Carotid Artery Right; Peripheral Arterial Disease (HCC); Stroke (HCC); Infection Total Hip Arthroplasty Subsequent Right; Hemiplegia Flaccid Dominant Side Right (HCC) 08/27/2023 Orders Only Department of Neurologic Surgery in [address] [phone] Rosalie Sosa R.N., CNRN Stenosis Carotid Artery Right (Primary Dx); Occlusion Carotid Artery Left; Peripheral Arterial Disease (HCC); Stroke (HCC); Infection Total Hip Arthroplasty Subsequent Right; Hemiplegia Flaccid Dominant Side Right (HCC) 08/27/2023 Clinical Communication Department of Neurologic Surgery in [place], [place] [address] [place] [phone] Fantasma Butt M.D. 08/26/2023 Orders Only [facility] Doug Lima M.D. Diabetes Mellitus Type 2 Peripheral Neuropathy (HCC) 08/25/2023 3:00 PM CDT Office Visit Department of Neurologic Surgery in [place], [place] [address] [place] [phone] Fantasma Butt M.D. Stenosis Carotid Artery Right (Primary Dx); Occlusion Carotid Artery Left 08/25/2023 12:11 PM CDT - 08/25/2023 11:59 PM CDT Hospital Encounter Department of Radiology, [facility] in [place], [place] [address] [place] [phone] Radha Ojeda P.A.-C., M.S. Stenosis Carotid Artery Bilateral Discharge Disposition: Home or Self Care 08/25/2023 9:00 AM CDT Comprehensive Visit Section of Infectious Diseases in [address] [phone] Sylvester Robb P.A.-C. Storm Nicole M.D. Infection Total Hip Arthroplasty Subsequent Right (Primary Dx) 08/25/2023 8:15 AM CDT Office Visit Department of Orthopedic Surgery in [place], [place] [address] [place] [phone] Vel Vinson M.D., M.B.A. Infection Total Hip Arthroplasty Subsequent Right (Primary Dx); Stroke (HCC) 08/25/2023 6:43 AM CDT - 08/25/2023 12:10 PM CDT Hospital Encounter Department of Radiology, [facility], in [place], [place] [address] [place] [phone] Xavi Hicks M.D. Infection Total Hip Arthroplasty Subsequent Right Discharge Disposition: Home or Self Care 08/20/2023 12:00 PM CDT Clinical Communication Virtual Review in [place], [place] 200 [place] [address] Pre-visit Intake from Last 3 Months Immunizations Name Administration Dates Next Due Tdap 04/27/2015 Family History Medical History Relation Name Comments Diabetes Brother Sreedhar Sleep apnea Brother Sreedhar Diabetes Father clay Hyperlipidemia Father clay Hypertension Father clay Leukemia Father clay Liver disease Father clay Obesity Father clay Sleep apnea Father clay Stroke Father clay Thyroid disease Father clay Arthritis Mother morgan Cancer Mother morgan Colon cancer Mother morgan Rectal cancer Mother morgan Sleep apnea Mother morgan Relation Name Status Comments Brothangus Eli Alive Father clay Mother morgan Stage 4 lung ca ncer Social History Tobacco Use Types Packs/Day Years Used Date Smoking Tobacco: Never Passive Smoke Exposure: Never Smokeless Tobacco: Never Tobacco Cessation:Counseling Given: Not Answered Alcohol Use Standard Drinks/Week Comments Never 2 (1 standard drink = 0.6 oz pur e alcohol) [facility] [employer] Answer Date Recorded In the past 12 months has e electric, gas, oil, or water [employer] threatened to shut off services in your [...] (Latest Contact Info) Description 01/02/2024 11:30 AM GOVERNMENT PROGRAM MANAGER Clinical Communication Virtual Review in [place], [place] 200 [place] [address] 01/05/2024 9:20 AM GOVERNMENT PROGRAM MANAGER Lab Department of Infusion Therapy in [place], [place] [address] [place] [phone] Vel Vinson M.D., M.B.A. [address] [place] [phone] 01/05/2024 10:15 AM GOVERNMENT PROGRAM MANAGER Appointment Department of Radiology, [facility], in [place], [place] [address] [place] [phone] Vel Vinson M.D., M.B.A. [address] [place] [phone] 01/05/2024 10:45 AM GOVERNMENT PROGRAM MANAGER Comprehensive Visit Section of Infectious Diseases in [place], [place] [address] [place] [phone] Maddy Bingham P.A.-C. [address] [place] [phone] 01/05/2024 11:15 AM GOVERNMENT PROGRAM MANAGER Office Visit Department of Orthopedic Surgery in [place], [place] [address] [place] [phone] Vel Vinson M.D., M.B.A. [address] [place] [phone] 01/06/2024 Hospital Encounter RST ROEI 02 4 AM ADMIT [address] [place] [phone] Vel Vinson M.D., M.B.A. [address] [place] [phone] Scheduled Procedures Name Priority Associated Diagnoses Date/Ti me ARTHROPLASTY REVISION FEMORAL+ACETABULAR HIP Infection Total Hip Arthroplasty Subsequent Right Health Maintenance Due Date Last Done Comments CT Colonography 1965 Cologuard 1965 Pneumococcal vaccine (0-64 y ears) (1 of 2 - PCV) 1971 Hepatitis B Vaccines (1 of 3 - 19+ 3-dose series) 01/02/1984 Zoster Vaccines (1 of 2) 2015 Diabetes Education 02/18/2017 Colonoscopy 04/20/2020 04/21/2015 Colorectal Cancer Surveillance 04/20/2020 Diabetic Office Visit with F oot Exam 03/20/2021 03/20/2020, 03/20/2020, 03/20/2020, Additional history exists COVID-19 Vaccine (1 - 2022-2 4 season) 2023 Dilated Eye Exam 11/09/2023 11/08/2022 Influenza Vaccine (#1) 2023 Office Visit for Blood Press ure Check / Re-check 01/03/2024 10/03/2023 Hemoglobin A1C 03/04/2024 09/02/2023, 04/0 07/2023, 05/13/2023, Additional history exists Urine Albumin 03/10/2024 03/10/2023, 02/0 02/2020, 06/22/2018, Additional history exists Creatinine Level (Kidney Fun ction Test) 09/01/2024 09/02/2023, 08/25/2023, 07/08/2023, Additional history exists Potassium Level 09/01/2024 09/02/2023, 06/18, 07/01/2023, Additional history exists Sodium Level 09/01/2024 09/02/2023, 06/18, 07/01/2023, Additional history exists DTaP,Tdap,and Td Vaccines (2 - Td or Tdap) 04/26/2025 04/27/2015 Lipid (Cholesterol) Screening 09/22/2028, 07/22/2023, 05/24/2023, Additional history exists Depression Screening (Annual PHQ-2) Completed 03/10/2023, 03/10/2023 Medical Devices Implanted Type Area Heater Tender Device Identifier Shelf Expiration Date Model / Serial / Lot Cmnt Bn Smp 40gm - [id number] Implanted:Qty: 1 on 05/23/2023 by Vel Vinson M.D., M.B.A. at [facility] Bone Cement Right: Hip Liliane 6191-1-001 / / Cmnt Bn Smp 40gm - [id number] Implanted:Qty: 1 on 05/23/2023 by Félix Mckeon M.D. at [facility] Bone Cement Right: Hip Mathews 6191-1-001 / / Cmnt Bn Smp 40gm - [id number] Implanted:Qty: 1 on 05/23/2023 by Félix Mckeon M.D. at [facility] Bone Cement Right: Hip Liliane 6191-1-001 / / Stnt Protege 0.014 [id number] - [id number] Implanted:Qty: 1 on 08/09/2022 by Fantasma Butt M.D. at [facility] Cardiac Stent Medtronic 02/19/2024 SECX-8-30-1 35 / / [id number] Small Frag-Screw Yasmany 3.5x16 - Amaral [id number] Implanted:Qty: 3 on 2004 Hardware e.g. pins/screws /rods Depuy Synthes Description:Device Manufactu rer - Synthes. Device Status Text - HARDWARE-7597. K-Wire Smooth S.S. Single 9 .062 - Amaral [id number] Implanted:Qty: 1 on 2004 Hardware e.g. pins/screws /rods Liliane Description:Device Manufactu rer - Mathews Angel.. Device Status Text - HARDWARE-9295. Small [...] rer - Synthes. Device Status Text - HARDWARE-760. Pin Dania Threaded Single End 5 64 - Amaral [id number] Implanted:Qty: 2 on 01/02/2004 Hardware e.g. pins/screws /rods Mathews Description:Device Manufactu rer - Mathews Angel.. Device Status Text - HARDWARE-9484. Small Frag-Screw Yasmany 3.5x26 - Amaral [id number] Implanted:Qty: 1 on 01/02/2004 Hardware e.g. pins/screws /rods Depuy Synthes Description:Device Manufactu rer - Synthes. Device Status Text - HARDWARE-7602. Syn Screw Schanz 5.0x250 - Amaral [id number] Implanted:Qty: 1 on 01/02/2004 Hardware e.g. pins/screws /rods Depuy Synthes Description:Device Manufactu rer - Synthes. Device Status Text - HARDWARE-01996. Guide Wire-Ball Tip 3 X 800 - Amaral [id number] Implanted:Qty: 1 on 02/03/2009 Hardware e.g. pins/screws /rods Mathews Description:Device Manufactu rer - Liliane Angel.. Device Status Text - HARDWARE- 17559. [facility] Data - [id number]. Hip Stm Prs Cmnt Rt 3 200 - [id number] Implanted:Qty: 1 on 05/23/2023 by Félix Mckeon M.D. at [facility] Hip Implant Right: Hip Depuy Synthes 08/16/2032 [id number] / / [id number] Lnr Emp Aox Std +4 40x54 - [id number] Implanted:Qty: 1 on 05/23/2023 by Félix Mckeon M.D. at [facility] Hip Implant Right: Hip Depuy Synthes 02/16/2027 4722-54-440 / / [id number] Fem Hd Art +12ofst 40 - [id number] Implanted:Qty: 1 on 05/23/2023 by Vel Vinson M.D., M.B.A. at [facility] Hip Implant Right: Hip Depuy Synthes 02/16/2033 4734-40-120 / / [id number] Stnt [place] 518 8x80 - [id number] Implanted:Qty: 1 on 05/24/2023 by Almaz Olea M.D. at [facility] Vascular Stent [employer] 02/24/2026 [id number] / / [id number] Explanted Type Area Heater Tender Device Identifier Shelf Expiration Date Model / Serial / Lot Screw-Hgpii S-Tap 6.5 X 15mm - Amaral [id number] Implanted:Qty: 1 on 02/03/2009 Explanted:Qty: 1 on 05/23/2023 by Vel Vinson M.D., M.B.A. at [facility] Hardware e.g. pins/screws /rods [employer]i [employer] Description:Device Manufactu rer - Nori. Device Status Text - HARDWARE-38860. Small Frag-Screw Yasmany 3.5x12 - Amaral [id number] Implanted:Qty: 1 on 01/02/2004 Explanted:Qty: 1 on 05/23/2023 by Vel Vinson M.D., M.B.A. at [facility] Hardware e.g. pins/screws /rods Depuy Synthes Description:Device Manufactu rer - Synthes. Device Status Text - HARDWARE-7595. Small Frag-Screw Yasmany 3.5x16 - Amaral [id number] Implanted:Qty: 2 on 01/02/2004 Explanted:Qty: 2 on 05/23/2023 by Vel Vinson M.D., M.B.A. at [facility] Hardware e.g. pins/screws /rods Depuy Synthes Description:Device Manufactu rer - Synthes. Device Status Text - HARDWARE-7597. Pelvic Re-Plate Cvd 3.5x 6ho - Amaral [id number] Implanted:Qty: 1 on 01/02/2004 Explanted:Qty: 1 on 05/23/2023 by Félix Mckeon M.D. at [facility] Hardware e.g. pins/screws /rods Depuy Synthes Description:Device Manufactu rer - Synthes. Device Status Text - HARDWARE-7366. Right Hip Screw-Hgpii S-Tap 6.5 X 30mm - Amaral [id number] Implanted:Qty: 2 on 02/03/2009 Explanted:Qty: 2 on 05/23/2023 by Vel Vinson M.D., M.B.A. at [facility] Hardware e.g. pins/screws /rods [employer]i [employer] Description:Device Manufactu rer - Nori. Device Status Text - HARDWARE-50084. Screw-Hgpii S-Tap 6.5 X 35mm - Amaral [id number] Implanted:Qty: 1 on 02/03/2009 Explanted:Qty: 1 on 05/23/2023 by Vel Vinson M.D., M.B.A. at [facility] Hardware e.g. pins/screws /rods [employer]i [employer] Description:Device Manufactu rer - Nori. Device Status Text - HARDWARE-46431. 6.5 Saniya Screw-16mm Thread 65 - Amaral [id number] Implanted:Qty: 1 on 01/02/2004 Explanted:Qty: 1 on 05/23/2023 by Vel Vinson M.D., M.B.A. at [facility] Hardware e.g. pins/screws /rods Depuy Synthes Description:Device Manufactu rer - Synthes. Device Status Text - HARDWARE-49930. Implex-Shell Hedro 54mm - Amaral [id number] Implanted:Qty: 1 on 02/03/2009 Explanted:Qty: 1 on 05/23/2023 by Vel Vinson M.D., M.B.A. at [facility] Hip Implant Other/Legacy - See Implant Description [employer]i [employer] Description:Device Manufactu rer - Nori. Body Location - Other. Right. Device Status Text - [id number] [id number]. Chocowinity-Stem Perkins 8 Hi - Amaral [id number] Implanted:Qty: 1 on 02/03/2009 Explanted:Qty: 1 on 05/23/2023 by Vel Vinson M.D., M.B.A. at [facility] Hip Implant Other/Legacy - See Implant Description [employer] Description:Device Manufactu rer - [employer]. Body Location - Other. Right. Device Status Text - HIP [id number]. Nori Liner 0 Degree 32 X 54m - Amaral [id number] Implanted:Qty: 1 on 02/03/2009 Explanted:Qty: 1 on 05/23/2023 by Vel Vinson M.D., M.B.A. at [facility] Hip Implant Other/Legacy - See Implant Description Nori [employer]omet Description:Device Manufactu rer - Nori. Body Location - Other. Right. Device Status Text - HIP [id number]. Dep. Head Prodigy 32 + 1.0 - Amaral [id number] Implanted:Qty: 1 on 02/03/2009 Explanted:Qty: 1 on 05/23/2023 by Vel Vinson M.D., M.B.A. at [facility] Hip Implant Other/Legacy - See Implant Description [employer] Description:Device Manufactu rer - J & J Ortho. Body Location - Other. Right. Device Status Text - HIP [id number]. Procedures Procedure Name Priority Date/Time Associated Diagnosis [...] ALBUMIN, RANDOM, U Routine 03/10/2023 11:30 AM GOVERNMENT PROGRAM MANAGER Diabetes Mellitus Type 2 Ulcer Foot Hyperglycemic [...] normal distal ICA in accordance with [place] Symptomatic Carotid Endarterectomy Trial (NASCET). Procedure Note [...] the ICA. Velocities in the stent of fscvqrrxe351vm/sec with mild narrowing of the stent seen [...] left ICA. Velocities in the stent of lzujxjhjd209zx/sec with mild narrowing of the stent seen and velocities proximal tothis narrowing are 82cm/sec. Findings consistent with mild in stentnarrowing. No significant stenosis. 3) Stable bilateral ECA stenoses. 4) Right vertebral artery 50-69% stenosis, at the lower end of the range.Stable left vertebral artery 70-99% stenosis. Radha Ojeda P.A.-C. MBelkisS. [facility] [place] IBARRA AUGUST * (ABNORMAL) Hepatic Function Panel (08/25/2023 8:11 [...] CDT Storm Nicole M.D. LAB BLOOD ADD-ON [facility] [address] [place] [address], [facility] [address] [place] [address] * (ABNORMAL) Sedimentation Rate (08/25/2023 8:11 AM CDT) Sedimentation Rate, B 27(H) 2 - 20 mm/h 08/25/2023 10:12 AM CDT DTL Blood (Blood, Venous) 08/25/2023 8:11 AM CDT 08/25/2023 8:51 AM CDT Storm Nicole M.D. LAB BLOOD ADD-ON [facility] [address] [place] [address], [facility] DTL [facility] [address] [place] [address] * (ABNORMAL) CBC with Differential, Blood (08/25/2023 8:11 AM CDT) Hemoglobin 11.9(L) 13.2 - 16.6 g/dL 08/25/2023 [...] M.D. LAB BLOOD ADD-ON [facility] [address] [place] [address], [facility] [address] [place] [address] [facility] [address] [place] [address] * CRP (C-Reactive Protein) (08/25/2023 8:11 AM CDT) C-Reactive Protein (CRP), S 3.2 <5.0 mg/L 08/25/2023 9:16 AM CDT DTL Blood (Blood, Venous) 08/25/2023 8:11 AM CDT 08/25/2023 8:55 AM CDT Storm Nicole M.D. LAB BLOOD ADD-ON Performing Organization Address [facility] Co de Phone Number [facility] [address] [place] [address], [facility] [address] [place] [address] * Creatinine with Estimated GFR (08/25/2023 8:11 AM CDT) Creatinine 1.06 0.74 - 1.35 mg/dL 08/25/2023 9:16 AM CDT DTL Estimated GFR (eGFR) 81 >=60 mL/min/BSA 08/25/2023 9:16 AM CDT DTL Comment: Estimated GFR calculated using the 2020 CKD_EPI creatinine equation. Blood (Blood, Venous) 08/25/2023 8:11 AM CDT 08/25/2023 8:55 AM CDT Storm Nicole M.D. LAB BLOOD ADD-ON [facility] [address] [place] [address], [facility] DTL [facility] [address] [place] [address] * DX Hip And Pelvis Right 2-3 [...] * Albumin, Random, Urine (03/10/2023 11:30 AM GOVERNMENT PROGRAM MANAGER) Microalbumin <12.0 mg/L 03/10/2023 11:54 AM GOVERNMENT PROGRAM MANAGER RDWG Comment:If clinically indica faviola, contact the lab for additional testing. Creatinine 112 mg/dL 03/10/2023 11:54 AM GOVERNMENT PROGRAM MANAGER RDWG Albumin/Creatinine Ratio <11 <17 mg/g 03/10/2023 11:54 AM GOVERNMENT PROGRAM MANAGER RDWG Comment: This ratio may not correspond with the reference range because one or both of the values used to calculate the ratio was above or below the quantification limits. Urine (Urine, Midstream) 03/10/2023 11:30 AM GOVERNMENT PROGRAM MANAGER 03/10/2023 11:30 AM GOVERNMENT PROGRAM MANAGER Doug Lima M.D. LAB URINE ORDERABLES [facility] [address] [place] [address], [facility] RDWG [facility] [address] [place] [address] from Last 3 Months or Most Recently Relevant to Health Maintenance Advance Directives For more information, please contact: [phone] * Full Code (Latest Code Status on [...] Due to: Patient not available Care Teams Advanced Manufacturing Vice President Relationship Specialty Start Date End Date Elsewhere, Pcp PCP - General Internal Medicine 10/03/23
--- OUTSIDE RECORDS SUMMARY | 2023-11-03 06:31 | XMS_ITS | Encounter Summary ---
Author Organization [facility] Address [address] [place] [address] Care Team Providers Care Biomedical Analytical Scientist Name Role Phone Doug Lima M.D. Primary Care Provider + [phone] Reason for Referral * Outpatient (Routine) - Closed Specialty Diagnoses / Procedures Referred By Contac t Referred To Contact Diagnoses Infection Total Hip Arthroplasty Subsequent Right Procedures DX Hip And Pelvis Right 2-3 Views Xavi Hicks M.D. [address] [place] [phone] [facility] Referral ID Status Reason Start Date Expiration Date Visits Re quested Visits Authorized [id number] Closed 05/16/2023 05/15/2024 1 1 Reason for Visit * Outpatient (Routine) - Closed Specialty Diagnoses / Procedures Referred By Contac t Referred To Contact Diagnoses Infection Total Hip Arthroplasty Subsequent Right Procedures DX Hip And Pelvis Right 2-3 Views Xavi Hicks M.D. [address] [place] [phone] [facility] Referral ID Status Reason Start Date Expiration Date Visits Re quested Visits Authorized [id number] Closed 05/16/2023 05/15/2024 1 1 Encounter Details Date Type Department Care Team (Latest Contact Info) Description 08/25/2023 6:43 AM CDT - 08/25/2023 12:10 PM CDT Hospital Encounter Department of Radiology, [facility], in [place], [place] [address] [place] [phone] Xavi Hicks M.D. [address] [place] [phone] Infection Total Hip Arthroplasty Subsequent Right Discharge Disposition: Home or Self Care Social History Tobacco Use Types Packs/Day Years Used Date Smoking Tobacco: Never Passive Smoke Exposure: Never Smokeless Tobacco: Never Alcohol Use Standard Drinks/Week Comments Never 2 (1 standard drink = 0.6 oz pur e alcohol) [facility] Utilities Answer Date Recorded In the past 12 months has e electric, gas, oil, or water [employer] threatened to shut off services in your [...] daily. 30 test 07/29/2022 blood-glucose meter ([employer] [place]) kit Use as instructed 1 each 07/29/2022 [...] flash glucose scanning reader ([employer] Jessica 2 [place]) miscIndications:Diabete s Mellitus Type 2 Ulcer Foot [...] (Latest Contact Info) Description 01/02/2024 11:30 AM SHADOW GRAPH WEIGHT OPERATOR Clinical Communication Virtual Review in [place], [place] [address] [place] [phone] 01/05/2024 9:20 AM SHADOW GRAPH WEIGHT OPERATOR Lab Department of Infusion Therapy in [place], [place] [address] [place] [phone] Vel Vinson M.D., M.B.A. [address] [place] [phone] 01/05/2024 10:15 AM SHADOW GRAPH WEIGHT OPERATOR Appointment Department of Radiology, [facility], in [place], [place] [address] [place] [phone] Vel Vinson M.D., M.B.A. [address] [place] [phone] 01/05/2024 10:45 AM SHADOW GRAPH WEIGHT OPERATOR Comprehensive Visit Section of Infectious Diseases in [place], [place] [address] [place] [phone] Maddy Bingham P.A.-C. [address] [place] [phone] 01/05/2024 11:15 AM SHADOW GRAPH WEIGHT OPERATOR Office Visit Department of Orthopedic Surgery in [place], [place] [address] [place] [phone] Vel Vinson M.D., M.B.A. [address] [place] [phone] 01/06/2024 Hospital Encounter RST ROEI 02 4 AM ADMIT [address] [place] [phone] Vel Vinson M.D., M.B.A. [address] [place] [phone] Scheduled Procedures Name Priority Associated Diagnoses Date/Ti me ARTHROPLASTY REVISION FEMORAL+ACETABULAR HIP Infection Total Hip Arthroplasty Subsequent Right documented as of this encounter Procedures Procedure Name Priority Date/Time Associated Diagnosis Comments DX HIP AND PELVIS RIGHT 2-3 VIEWS RAD - Routine (most inpatients and all outpatients) 08/25/2023 7:22 AM CDT Infection Total Hip Arthroplasty Subsequent Right documented in this encounter Results * DX Hip And Pelvis Right 2-3 [...] spine. Spondylolysis at L5. Xavi Hicks M.D. IMG DIAGNOSTIC NIRMAL GING PROCEDURES documented in this encounter Visit Diagnoses Diagnosis Infection Total Hip Arthroplasty Subsequent Right documented in this encounter Care Teams Biomedical Analytical Scientist Relationship Specialty Start Date End Date Doug Lima M.D. [address] [place] [phone] PCP - General Family Medicine 01/28/17 10/02/23 documented as of this encounter
--- OUTSIDE RECORDS SUMMARY | 2023-11-03 06:31 | XMS_ITS ---
Author Organization [facility] Address [address] [place] [address] Care Team Providers Care Entry Level Staff Accountant Name Role Phone Unavailable Unavailable Unavailable Surgery Details Not on file Complications Check Surgery Details section. Procedure Estimated Blood Loss Check Surgery Details section. Procedure Findings Check Surgery Details section. Procedure Specimens Taken Check Surgery Details section.
--- OUTSIDE RECORDS SUMMARY | 2023-11-03 06:31 | XMS_ITS | Encounter Summary ---
Author Organization [facility] Address [address] [place] [address] Care Team Providers Care Physicist Acoustics Name Role Phone Doug Lima M.D. 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 [address] [place] [phone] [facility] Referral ID Status Reason Start Date Expiration Date Visits Re quested Visits Authorized [id number] Closed 08/27/2023 08/26/2024 1 1 Encounter Details Date Type Department Care Team (Latest Contact Info) Description 08/28/2023 11:00 AM CDT Internal E-Consult Department of Vascular Medicine in [place], [place] [address] [place] [phone] Gaudencio Escobedo M.D. [address] [place] [phone] Occlusion Carotid Artery Left (Primary Dx); Stenosis Carotid Artery Right; Peripheral Arterial Disease (HCC); Stroke (HCC); Infection Total Hip Arthroplasty Subsequent Right; Hemiplegia Flaccid Dominant Side Right (HCC) Social History Tobacco Use Types Packs/Day Years Used Date Smoking Tobacco: Never Passive Smoke Exposure: Never Smokeless Tobacco: Never Alcohol Use Standard Drinks/Week Comments Never 2 (1 standard drink = 0.6 oz pur e alcohol) [facility] Utilities Answer Date Recorded In the past 12 months has e [employer], gas, oil, or water [employer] threatened to shut off services in your [...] PM CDT documented as of this encounter Consult Notes * Gaudencio Escobedo M.D. - 08/27/2023 11:00 AM CDT Referring Physician: Fantasma Butt M.D. SUBJECTIVE The patient has been neither seen nor examined; this consultation is based entirely upon information available in the [facility] electronic medical record. CHIEF COMPLAINT / REASON FOR VISIT ongoing management due to immobility and vascular health; currently on Lovenox; want to transition to Xarelto HISTORY OF PRESENT ILLNESS Mr. Lester is a 58 y.o. male with cerebrovascular disease/stroke and recent hip arthroplasty. Briefly: The patient has a very complicated medical history which includes a previous right-sided carotid revascularization. 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 Unfortunately, his situation was complicated by a left-sided MCA and stroke for which he was treated with thrombectomy and a left carotid artery stent. For the duration of his hospitalization he was followed by both Neurology/Neurosurgery and Orthopedics. During hospitalization he received dual antiplatelet agents for his cerebrovascular issues, and low-dose anticoagulation (Lovenox 40 mg q.day) for DVT prophylaxis in the setting of hip surgery. As noted in the hospital dismissal summary, both these recommendations were continued after he was [place] a [place] [facility] facility: Hospital dismissal summary (Dr. Hill, 06/25/2023): STROKE SERVICE RECOMMENDATIONS: 1.Continue Aspirin 81 mg daily and Ticagrelor 90 mg twice daily for 90 days (08/24/2023), then switchto Ticagrelor 90 mg twice daily indefinitely as monotherapy. If patient is unable to obtain ticagrelor an affordable causey, he should be switched to full dose aspirin 325 mg daily instead. ORTHOPEDICS RECOMMENDATIONS: 3. DVT Prophylaxis: The patient should remain on Lovenox 40 mg daily while his weightbearing is restricted to prevent a blood clot He was seen in follow-up by Dr. Butt on 08/25/2023, who considered a change in his medical program: ??? He is currently maintained on Brilinta and aspirin as well as Lovenox. I think he can transition to Xarelto given decreased mobility. While on Xarelto, Brilinta can be discontinued but he must continue low-dose aspirin ??? I have been asked to make recommendations regarding the switch from Lovenox to Xarelto. Labs: Platelets/creatinine/GFR- normal All available relevant information was reviewed. ASSESSMENT / PLAN #1 Recent CVA/thrombectomy/left carotid artery stent #[address] Butt is appropriately considering a change in the patient's medications to better address the dual issues of cerebrovascular disease and DVT prophylaxis. To switch from Lovenox to Xarelto, simply give Xarelto at a dose of 10 mg q.day. The 1st dose should be given (instead of Lovenox) when the next dose of Lovenox is due. The anticoagulant effect (and bleeding risk) of Xarelto at a dose of 10 mg per day and Lovenox at a dose of 40 mg per day are roughly comparable. You may (or may not?) choose to discontinue ticagrelor after this switch. Gaudencio Escobedo M.D. documented in this encounter Plan of Treatment Upcoming Encounters Date Type Department Care Team (Latest Contact Info) Description 01/02/2024 11:30 AM [place]IFORNIA SEAMER Clinical Communication Virtual Review in [place], [place] [address] [place] [phone] 01/05/2024 9:20 AM CALIFORNIA SEAMER Lab Department of Infusion Therapy in [place], [place] [address] [place] [phone] Vel Vinson M.D., M.B.A. [address] [place] [phone] 01/05/2024 10:15 AM CALIFORNIA SEAMER Appointment Department of Radiology, [facility], in [place], [place] [address] [place] [phone] Vel Vinson M.D., M.B.A. [address] [place] [phone] 01/05/2024 10:45 AM CALIFORNIA SEAMER Comprehensive Visit Section of Infectious Diseases in [place], [place] [address] [place] [phone] Maddy Bingham P.A.-C. [address] [place] [phone] 01/05/2024 11:15 AM CALIFORNIA SEAMER Office Visit Department of Orthopedic Surgery in [place], [place] [address] [place] [phone] Vel Vinson M.D., M.B.A. [address] [place] [phone] 01/06/2024 Hospital Encounter RST ROEI 02 4 AM ADMIT [address] [place] [phone] Vel Vinson M.D., M.B.A. 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 [address] [place] [phone] PCP - General Family Medicine 01/28/17 10/02/23 documented as of this encounter
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
--- OUTSIDE RECORDS SUMMARY | 2023-11-03 06:32 | XMS_ITS | Encounter Summary ---
Author Organization [facility] Address [address] [place] [address] Care Team Providers Care Campaign Developer Name Role Phone Doug Lima M.D. Primary Care Provider + [phone] Encounter Details Date Type Department Care Team (Late st Contact Info) Description 08/01/2023 Abstract [place], [place] [address] [place] [address] Provider, Historical Social History Tobacco Use Types Packs/Day Years Used Date Smoking Tobacco: Never Passive Smoke Exposure: Never Smokeless Tobacco: Never Alcohol Use Standard Drinks/Week Comments Never 2 (1 standard drink = 0.6 oz pur e alcohol) [facility] Utilities Answer Date Recorded In the past 12 months has e [employer], gas, oil, or water [employer] threatened to shut off services in your home? No 07/16/2023 Humiliation, Afraid, Rape, a nd Kick questionnaire [...] you got the money to buy more. Never true 07/16/19 24 Within the past 12 months, t he food you bought just didn't last and you didn't have money to get more. Never true 07/16/2023 PRAPARE - Transportation Answer Date Re corded In the past 12 months, has l ack of transportation kept you from medical appointments or from getting medications? No 06/18 In the past 12 months, has l ack of transportation kept you from meetings, work, or from getting things needed for daily living? No 07/16/2023 Nutrition Answer Date Recorded On average, how [...] Recorded What is your living situation today? I have a [facility] place to live 07/16/2023 Sex and Gender Information Value Date Recorded Sex Assigned at Male 07/26/2022 1:30 PM CDT Gender Identity Male 07/26/2022 1:32 PM CDT Sexual Orientation Straight 07/26/2022 1: 32 PM CDT documented as of this encounter Plan of Treatment Upcoming Encounters Date Type Department Care Team (Latest Contact Info) Description 01/02/2024 11:30 AM DIESEL ENGINE MECHANIC Clinical Communication Virtual Review in [place], [place] [address] [place] [address] 01/05/2024 9:20 AM DIESEL ENGINE MECHANIC Lab Department of Infusion Therapy in [place], [place] [address] [place] [phone] Vel Vinson M.D., M.B.A. [address] [place] [phone] 01/05/2024 10:15 AM DIESEL ENGINE MECHANIC Appointment Department of Radiology, [facility], in [place], [place] [address] [place] [phone] Vel Vinson M.D., M.B.A. [address] [place] [phone] 01/05/2024 10:45 AM DIESEL ENGINE MECHANIC Comprehensive Visit Section of Infectious Diseases in [place], [place] [address] [place] [phone] Maddy Bingham P.A.-C. [address] [place] [phone] 01/05/2024 11:15 AM DIESEL ENGINE MECHANIC Office Visit Department of Orthopedic Surgery in [place], [place] [address] [place] [phone] Vel Vinson M.D., M.B.A. [address] [place] [phone] 01/06/2024 Hospital Encounter [facility] 02 4 AM ADMIT [address] [place] [phone] Vel Vinson M.D., M.B.A. [address] [place] [phone] Scheduled Procedures Name Priority Associated Diagnoses Date/Ti me ARTHROPLASTY REVISION FEMORAL+ACETABULAR HIP Infection Total Hip Arthroplasty Subsequent Right documented as of this encounter Visit Diagnoses Not on filedocumented in this encounter Care Teams Campaign Developer Relationship Specialty Start Date End Date Doug Lima M.D. [address] [place] [phone] PCP - General Family Medicine 01/28/17 10/02/23 documented as of this encounter
--- OUTSIDE RECORDS SUMMARY | 2023-11-03 06:32 | XMS_ITS | Encounter Summary ---
Author Organization [facility] Address [address] [place] [address] Care Team Providers Care Paleology Professor Name Role Phone Doug Lima M.D. Primary Care Provider + [phone] Reason for Visit * Reason Onset Date Comments Pre-visit Intake 08/20/2023 Encounter Details Date Type Department Care Team (Latest Contact Info) Description 08/20/2023 12:00 PM CDT Clinical Communication Virtual Review in [place], [place] 200 [place] [address] Pre-visit Intake Social History Tobacco Use Types Packs/Day Years Used Date Smoking Tobacco: Never Passive Smoke Exposure: Never Smokeless Tobacco: Never Alcohol Use Standard Drinks/Week Comments Never 2 (1 standard drink = 0.6 oz pur e alcohol) [facility] Utilities Answer Date Recorded In the past 12 months has e [employer], gas, oil, or water [employer] threatened to shut off services in your [...] (Latest Contact Info) Description 01/02/2024 11:30 AM HELICOPTER CREW CHIEF Clinical Communication Virtual Review in [place], [place] [address] [place] [address] 01/05/2024 9:20 AM HELICOPTER CREW CHIEF Lab Department of Infusion Therapy in [place], [place] [address] [place] [address] Vel Vinson M.D., M.B.A. [address] [place] [phone] 01/05/2024 10:15 AM HELICOPTER CREW CHIEF Appointment Department of Radiology, [facility], in [place], [place] [address] [place] [phone] Vel Vinson M.D., M.B.A. [address] [place] [phone] 01/05/2024 10:45 AM HELICOPTER CREW CHIEF Comprehensive Visit Section of Infectious Diseases in [place], [place] [address] [place] [phone] Maddy Bingham P.A.-C. [address] [place] [phone] 01/05/2024 11:15 AM HELICOPTER CREW CHIEF Office Visit Department of Orthopedic Surgery in [place], [place] [address] [place] [phone] Vel Vinson M.D., M.B.A. [address] [place] [phone] 01/06/2024 Hospital Encounter [facility] 02 4 AM ADMIT [address] [place] [phone] Vel Vinson M.D., M.B.A. [address] [place] [phone] Scheduled Procedures Name Priority Associated Diagnoses Date/Ti me ARTHROPLASTY REVISION FEMORAL+ACETABULAR HIP Infection Total Hip Arthroplasty Subsequent Right documented as of this encounter Visit Diagnoses Not on filedocumented in this encounter Care Teams Paleology Professor Relationship Specialty Start Date End Date Doug Lima M.D. [address] [place] [phone] PCP - General Family Medicine 01/28/17 10/02/23 documented as of this encounter
--- OUTSIDE RECORDS SUMMARY | 2023-11-03 06:32 | XMS_ITS | Encounter Summary ---
Author Organization [facility] Address [address] [place] [address] Care Team Providers Care Vinyl Hanger Name Role Phone Doug Lima M.D. Primary Care Provider + [phone] Reason for Referral * Outpatient (Routine) - Authorized Specialty Diagnoses / Procedures Referred By Tammi t Referred To Contact Radiology Fantasma Butt M.D. [address] [place] [phone] Radha Ojeda P.A.-C., M.S. [address] [place] [phone] Referral ID Status Reason Start Date Expiration Date V isits Requested Visits Authorized [id number] Authorized 08/25/2023 02/23/2025 1 1 Scheduling Instructions JONO Rojas - when dr. Butt available. To be scheduled same day as imaging study. 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 200 [place] [address] [facility] Referral ID Status Reason Start Date Expiration Date V isits Requested Visits Authorized [id number] Authorized 08/25/2023 08/24/2024 1 1 Reason for Visit * Outpatient (Routine) - Closed Specialty Diagnoses / Procedures Referred By Tammi basilio Referred To Contact Neurological Surgery Lachelle Crawford M.D. Lanzino, Giuseppe, M.D. [address] [place] [address] Referral ID Status Reason Start Date Expiration Date Visits Re quested Visits Authorized [id number] Closed 06/25/2023 12/24/2024 1 1 Encounter Details Date Type Department Care Team (Late st Contact Info) Description 08/25/2023 3:00 PM CDT Office Visit Department of Neurologic Surgery in [place], [place] [address] [place] [phone] Fantasma Butt M.D. [address] [place] [phone] Stenosis Carotid Artery Right (Primary Dx); Occlusion Carotid Artery Left Social History Tobacco Use Types Packs/Day Years Used Date Smoking Tobacco: Never Passive Smoke Exposure: Never Smokeless Tobacco: Never Alcohol Use Standard Drinks/Week Comments Never 2 (1 standard drink = 0.6 oz pur e alcohol) [facility] Utilities Answer Date Recorded In the past 12 months has [employer], gas, oil, or water [employer] threatened to shut off services in your [...] as of this encounter Progress Notes * Fantasma Butt M.D. - 08/25/2023 3:00 PM CDT 58-year-old with advanced atherosclerotic disease. Unfortunately, recently he suffered a left hemispheric stroke contralateral to the previously treated right carotid artery. He is currently recovering from the stroke and is in an extended care facility. Follow-up Doppler ultrasound shows patency of the left internal carotid artery stent and restenosis of the right carotid stent. He is currently maintained on Brilinta and aspirin as well as Lovenox. I think he can transition to Xarelto given decreased mobility. While on Xarelto, Brilinta can be discontinued but he must continue low-dose aspirin. At this stage, I do not recommend retreatment of the right carotid artery restenosis. His familyhad multiple questions regarding potential orthopedic surgery in October. If surgery is necessary, it is reasonable to proceed as long as extreme attention is paid to his intraoperative blood pressure and avoidance of blood losses. In absence of new symptoms, I recommend a follow-up Doppler ultrasound of the carotids in approximately 6-12 months. documented in this encounter Plan of Treatment Upcoming Encounters Date Type Department Care Team (Latest Contact Info) Description 01/02/2024 11:30 AM FLORAL ARRANGER Clinical Communication Virtual Review in [address] [phone] 01/05/2024 9:20 AM FLORAL ARRANGER Lab Department of Infusion Therapy in [address] [phone] Vel Vinson M.D., M.B.A. [address] [place] [phone] 01/05/2024 10:15 AM FLORAL ARRANGER Appointment Department of Radiology, [facility], in [address] [phone] Vel Vinson M.D., M.B.A. [address] [place] [phone] 01/05/2024 10:45 AM FLORAL ARRANGER Comprehensive Visit Section of Infectious Diseases in [address] [phone] Maddy Bingham P.A.-C. [address] [place] [phone] 01/05/2024 11:15 AM FLORAL ARRANGER Office Visit Department of Orthopedic Surgery in [place], [place] [address] [place] [address] Vel Vinson M.D., M.B.A. [address] [place] [phone] 01/06/2024 Hospital Encounter [facility] 02 4 AM ADMIT [address] [place] [address] Vel Vinson M.D., M.B.A. [address] [place] [phone] Scheduled Orders Name Type Priority Associated Diagnoses Orde r Schedule US Carotid Bilateral Imaging Stenosis Carotid Artery Right Occlusion Carotid Artery Left Expected: 02/25/2024, Expires: 08/24/2024 Scheduled Procedures Name Priority Associated Diagnoses Date/Ti me ARTHROPLASTY REVISION FEMORAL+ACETABULAR HIP Infection Total Hip Arthroplasty Subsequent Right Scheduled Referrals Name Type Priority Associated Diagnoses Order Schedule Interventional Radiology office visit (clinic) Outpatient Referral Routine Expected: 02/25/2024, Expires: 11/24/2024 documented as of this encounter Visit Diagnoses Diagnosis Stenosis Carotid Artery Right- Primary Occlusion Carotid Artery Left documented in this encounter Care Teams Vinyl Hanger Relationship Specialty Start Date End Date Doug Lima M.D. [address] [place] [phone] PCP - General Family Medicine 01/28/17 10/02/23 documented as of this encounter
--- OUTSIDE RECORDS SUMMARY | 2023-11-03 06:32 | XMS_ITS | Encounter Summary ---
Author Organization [facility] Address [address] [place] [address] Care Team Providers Care Project Consultant Name Role Phone Doug Lima M.D. Primary Care Provider + [phone] Reason for Visit * Reason Onset Date Comments Communication 07/01/2023 Encounter Details Date Type Department Care Team (Late st Contact Info) Description 07/01/2023 Clinical Communication Division of Plastic Surgery in [place], [place] [address] [place] [address] Mike Cheng M.D. [address] [place] [phone] Communication Social History Tobacco Use Types Packs/Day Years Used Date Smoking Tobacco: Never Passive Smoke Exposure: Never Smokeless Tobacco: Never Alcohol Use Standard Drinks/Week Comments Never 2 (1 standard drink = 0.6 oz pur e alcohol) [facility] Utilities Answer Date Recorded In the past 12 months has [employer], gas, oil, or water [employer] threatened to shut off services in your [...] your living situation today? I have a [facility] place to live 07/16/2023 Sex and Gender Information Value Date Recorded Sex Assigned at Male 07/26/2022 1:30 PM CDT Gender Identity Male 07/26/2022 1:32 PM CDT Sexual Orientation Straight 07/26/2022 1: 32 PM CDT documented as of this encounter Plan of Treatment Upcoming Encounters Date Type Department Care Team (Latest Contact Info) Description 01/02/2024 11:30 AM MEDICAL OFFICER Clinical Communication Virtual Review in [place], [place] [address] [place] [phone] 01/05/2024 9:20 AM MEDICAL OFFICER Lab Department of Infusion Therapy in [place], [place] [address] [place] [phone] Vel Vinson M.D., M.B.A. [address] [place] [phone] 01/05/2024 10:15 AM MEDICAL OFFICER Appointment Department of Radiology, [facility], in [place], [place] [address] [place] [phone] Vel Vinson M.D., M.B.A. [address] [place] [phone] 01/05/2024 10:45 AM MEDICAL OFFICER Comprehensive Visit Section of Infectious Diseases in [address] [phone] Maddy Bingham P.A.-C. [address] [place] [phone] 01/05/2024 11:15 AM MEDICAL OFFICER Office Visit Department of Orthopedic Surgery in [address] [phone] Vel Vinson M.D., M.B.A. [address] [place] [phone] 01/06/2024 Hospital Encounter [facility] 02 4 AM ADMIT [address] [place] [phone] Vel Vinson M.D., M.B.A. [address] [place] [phone] Scheduled Procedures Name Priority Associated Diagnoses Date/Ti me ARTHROPLASTY REVISION FEMORAL+ACETABULAR HIP Infection Total Hip Arthroplasty Subsequent Right documented as of this encounter Visit Diagnoses Not on filedocumented in this encounter Care Teams Project Consultant Relationship Specialty Start Date End Date Doug Lima M.D. [address] [place] [phone] PCP - General Family Medicine 01/28/17 10/02/23 documented as of this encounter
--- OUTSIDE RECORDS SUMMARY | 2023-11-03 06:32 | XMS_ITS ---
Author Organization [facility] Address [address] [place] [address] Care Team Providers Care Magnet Valve Assembler Name Role Phone Elsewhere, Pcp Primary Care Provider Unavailabl e OPAT Status:Pending (Paused) Start date:05/27/2023 Enrollment date:06/06/2023 Related service episodes:Adult OPAT Service Episode (Declined) Continued Care and Services Coordination
--- OUTSIDE RECORDS SUMMARY | 2023-11-03 06:32 | XMS_ITS | Encounter Summary ---
Author Organization [facility] Address [address] [place] [address] Care Team Providers Care Medical Malpractice Paralegal Name Role Phone Dogu Lima M.D. Primary Care Provider + [phone] Encounter Details Date Type Department Care Team (Late st Contact Info) Description 06/26/2023 Clinical Communication Department of Orthopedic Surgery in [place], [place] [address] [place] [phone] Vel Vinson M.D., M.B.A. [address] [place] [phone] Social History Tobacco Use Types Packs/Day Years Used Date Smoking Tobacco: Never Passive Smoke Exposure: Never Smokeless Tobacco: Never Alcohol Use Standard Drinks/Week Comments Never 2 (1 standard drink = 0.6 oz pur e alcohol) [facility] Utilities Answer Date Recorded In the past 12 months has [employer], oil, or water [employer] threatened to shut off services in your [...] money to buy more. Never true 07/16/19 Within the past 12 months, t he [...] your living situation today? I have a [facility] place to live 07/16/2023 Sex and Gender Information Value Date Recorded Sex Assigned at Male 07/26/2022 1:30 PM CDT Gender Identity Male 07/26/2022 1:32 PM CDT Sexual Orientation Straight 07/26/2022 1: 32 PM CDT documented as of this encounter Plan of Treatment Upcoming Encounters Date Type Department Care Team (Latest Contact Info) Description 01/02/2024 11:30 AM AIR ROUTE TRAFFIC CONTROLLER Clinical Communication Virtual Review in [place], [place] [address] [place] [address] 01/05/2024 9:20 AM AIR ROUTE TRAFFIC CONTROLLER Lab Department of Infusion Therapy in [place], [place] [address] [place] [phone] Vel Vinson M.D., M.B.A. [address] [place] [phone] 01/05/2024 10:15 AM AIR ROUTE TRAFFIC CONTROLLER Appointment Department of Radiology, [facility], in [place], [place] [address] [place] [phone] Vel Vinson M.D., M.B.A. [address] [place] [phone] 01/05/2024 10:45 AM AIR ROUTE TRAFFIC CONTROLLER Comprehensive Visit Section of Infectious Diseases in [place], [place] [address] [place] [phone] Maddy Bingham P.A.-C. [address] [place] [phone] 01/05/2024 11:15 AM AIR ROUTE TRAFFIC CONTROLLER Office Visit Department of Orthopedic Surgery in [place], [place] [address] [place] [phone] Vel Vinson M.D., M.B.A. [address] [place] [phone] 01/06/2024 Hospital Encounter [facility] 02 4 AM ADMIT [address] [place] [phone] Vel Vinson M.D., M.B.A. [address] [place] [phone] Scheduled Procedures Name Priority Associated Diagnoses Date/Ti me ARTHROPLASTY REVISION FEMORAL+ACETABULAR HIP Infection Total Hip Arthroplasty Subsequent Right documented as of this encounter Visit Diagnoses Not on filedocumented in this encounter Care Teams Medical Malpractice Paralegal Relationship Specialty Start Date End Date Doug Lima M.D. [address] [place] [phone] PCP - General Family Medicine 01/28/17 10/02/23 documented as of this encounter
--- OUTSIDE RECORDS SUMMARY | 2023-11-03 06:32 | XMS_ITS | Encounter Summary ---
Author Organization [facility] Address [address] [place] [address] Care Team Providers Care Corncob Pipes Assembler Name Role Phone Doug Lima M.D. Primary Care Provider + [phone] Reason for Visit * Reason Onset Date Comments RX APPROVAL 06/26/2023 NOVOLIN FLEXPEN 100 UNIT/ML Encounter Details Date Type Department Care Team (Latest Contact Info) Description 06/26/2023 Clinical Communication Pharmacy Prior Auth RO [id number] Terrance Colmenares RX APPROVAL (NOVOLIN FLEXPEN 100 UNIT/ML) Social History Tobacco Use Types Packs/Day Years Used Date Smoking Tobacco: Never Passive Smoke Exposure: Never Smokeless Tobacco: Never Alcohol Use Standard Drinks/Week Comments Never 2 (1 standard drink = 0.6 oz pur e alcohol) [facility] Utilities Answer Date Recorded In the past 12 months has [employer], gas, oil, or water [employer] threatened to shut off services in your [...] your living situation today? I have a [facility] place to live 07/16/2023 Sex and Gender Information Value Date Recorded Sex Assigned at Male 07/26/2022 1:30 PM CDT Gender Identity Male 07/26/2022 1:32 PM CDT Sexual Orientation Straight 07/26/2022 1: 32 PM CDT documented as of this encounter Miscellaneous Notes * Telephone Encounter - Terrance Colmenares - 06/26/2023 8:06 AM CDT Pharmaceutical prior authorization has been approved for [NOVOLIN FLEXPEN 100 UNIT/ML ]. If you have any follow-up questions, please send an [employer] in basket message to [facility]. documented in this encounter Plan of Treatment Upcoming Encounters Date Type Department Care Team (Latest Contact Info) Description 01/02/2024 11:30 AM AERIAL ADVERTISER Clinical Communication Virtual Review in [place], [place] [address] [place] [phone] 01/05/2024 9:20 AM AERIAL ADVERTISER Lab Department of Infusion Therapy in [place], [place] [address] [place] [phone] Vel Vinson M.D., M.B.A. [address] [place] [phone] 01/05/2024 10:15 AM AERIAL ADVERTISER Appointment Department of Radiology, [facility], in [place], [place] [address] [place] [phone] Vel Vinson M.D., M.B.A. [address] [place] [phone] 01/05/2024 10:45 AM AERIAL ADVERTISER Comprehensive Visit Section of Infectious Diseases in [address] [phone] Maddy Bingham P.A.-C. [address] [place] [phone] 01/05/2024 11:15 AM AERIAL ADVERTISER Office Visit Department of Orthopedic Surgery in [place], [place] [address] [place] [phone] Vel Vinson M.D., M.B.A. [address] [place] [phone] 01/06/2024 Hospital Encounter [facility] 02 4 AM ADMIT [address] [place] [phone] Vel Vinson M.D., M.B.A. [address] [place] [phone] Scheduled Procedures Name Priority Associated Diagnoses Date/Ti me ARTHROPLASTY REVISION FEMORAL+ACETABULAR HIP Infection Total Hip Arthroplasty Subsequent Right documented as of this encounter Visit Diagnoses Not on filedocumented in this encounter Care Teams Corncob Pipes Assembler Relationship Specialty Start Date End Date Doug Lima M.D. [address] [place] [phone] PCP - General Family Medicine 01/28/17 10/02/23 documented as of this encounter
--- OUTSIDE RECORDS SUMMARY | 2023-11-03 06:32 | XMS_ITS | Encounter Summary ---
Author Organization [facility] Address [address] [place] [address] Care Team Providers Care Hydrographic Engineer Name Role Phone Doug Lima M.D. Primary Care Provider + [phone] Encounter Details Date Type Department Care Team (Late st Contact Info) Description 07/02/2023 Clinical Communication Division of Plastic Surgery in [place], [place] [address] [place] [phone] Mike Cheng M.D. [address] [place] [address] Social History Tobacco Use Types Packs/Day Years Used Date Smoking Tobacco: Never Passive Smoke Exposure: Never Smokeless Tobacco: Never Alcohol Use Standard Drinks/Week Comments Never 2 (1 standard drink = 0.6 oz pur e alcohol) [facility] Utilities Answer Date Recorded In the past 12 months has [employer] gas, oil, or water [employer] threatened to shut off services in your [...] your living situation today? I have a [facility] place to live 07/16/2023 Sex and Gender Information Value Date Recorded Sex Assigned at Male 07/26/2022 1:30 PM CDT Gender Identity Male 07/26/2022 1:32 PM CDT Sexual Orientation Straight 07/26/2022 1: 32 PM CDT documented as of this encounter Plan of Treatment Upcoming Encounters Date Type Department Care Team (Latest Contact Info) Description 01/02/2024 11:30 AM VASC TECH Clinical Communication Virtual Review in [place], [place] [address] [place] [address] 01/05/2024 9:20 AM VASC TECH Lab Department of Infusion Therapy in [place], [place] [address] [place] [phone] Vel Vinson M.D., M.B.A. [address] [place] [phone] 01/05/2024 10:15 AM VASC TECH Appointment Department of Radiology, [facility], in [place], [place] [address] [place] [phone] Vel Vinson M.D., M.B.A. [address] [place] [address] [phone] 01/05/2024 10:45 AM VASC TECH Comprehensive Visit Section of Infectious Diseases in [place], [place] [address] [place] [phone] Maddy Bingham P.A.-C. [address] [place] [phone] 01/05/2024 11:15 AM VASC TECH Office Visit Department of Orthopedic Surgery in [place], [place] [address] [place] [phone] Vel Vinson M.D., M.B.A. [address] [place] [address] [phone] 01/06/2024 Hospital Encounter [facility] 02 4 AM ADMIT [address] [place] [address] [phone] Vel Vinson M.D., M.B.A. [address] [place] [phone] Scheduled Procedures Name Priority Associated Diagnoses Date/Ti me ARTHROPLASTY REVISION FEMORAL+ACETABULAR HIP Infection Total Hip Arthroplasty Subsequent Right documented as of this encounter Visit Diagnoses Not on filedocumented in this encounter Care Teams Hydrographic Engineer Relationship Specialty Start Date End Date Doug Lima M.D. [address] [place] [phone] PCP - General Family Medicine 01/28/17 10/02/23 documented as of this encounter
--- OUTSIDE RECORDS SUMMARY | 2023-11-03 06:32 | XMS_ITS | Encounter Summary ---
Author Organization [facility] Address [address] [place] [address] Care Team Providers Care Clay Washer Name Role Phone Doug Lima M.D. Primary Care Provider + [phone] Reason for Visit * Outpatient (Routine) - Closed Specialty Diagnoses / Procedures Referred By Tammi basilio Referred To Contact Orthopedic Surgery Xavi Hicks M.D. [address] [place] [phone] Vel Vinson M.D., M.B.A. [address] [place] [phone] Referral ID Status Reason Start Date Expiration Date Visits Re quested Visits Authorized [id number] Closed 05/16/2023 11/14/2024 1 1 Encounter Details Date Type Department Care Team (Late st Contact Info) Description 08/25/2023 8:15 AM CDT Office Visit Department of Orthopedic Surgery in [place], [place] [address] [place] [phone] Vel Vinson M.D., M.B.A. 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 - 08/25/2023 8:15 AM CDT POST-OPERATIVE VISIT SURGICAL PROCEDURE: Right hip arthroplasty explant with placement of articulating antibiotic spacer on 05/23/23 complicated by stroke INTERIM HISTORY: Estevan Lester is a 58 y.o. year old male who presents s/p the above procedure. He has been in rehabilitation. He had a massive stroke after surgery with complete right-sided paralysis. His family presents with him today. He actually has now been able to stand up to 8-9 minutes. He has been 20 pounds flatfoot weightbearing. He has started to get increasing strength in his right lower extremity as well as his right upper extremity. His cognition has improved as well as his speech. He has pain approximately 4/5 on the right hip. It is worse with weightbearing activity. Denies any fevers or chills. He is off antibiotics. He presents today in a stretcher from his rehabilitation facility. PHYSICAL EXAM: Gait: Deferred Operative hip: Incision: Incision is healed well with no erythema, warmth or drainage ROM: Painless Strength: 3/5 quads, TA, EHL. SILT L2 - S1, but diminished compared to contralateral side. DP pulse1+ Neurovascular status in operative extremity is intact REVIEW OF XRAYS/STUDIES: AP Pelvis and views of the operative hip independently interpreted by me demonstrate a well positioned right ISRRAEL articulating antibiotic spacer. He has interval ETO healing. He has had subsidence of 3 - 4 mm since his last imaging. TREATMENT PLAN: We had a very lengthy discussion with Estevan as well as a sister, her , and with other familymember today regarding condition and treatment options. I congratulated him on his extremely impressive rehabilitation to this point. He has right upper extremity motor function and has had a significant improvement in his right lower extremity motor function. He is still very weak on his right lower extremity. I was concerned that this was because his hip was limiting him, but I really think this is actually a result of his weakness from his stroke. I recommend he continue to be 20 pounds flatfoot weightbearing with his hip in abduction brace at all times. His ESR and CRP were normal today.We will continue to monitor him off antibiotics. He is on Lovenox for DVT prophylaxis. They are scheduled to see Neurology later today. I think at this point, we can start to discuss potentially considering reimplantation on the right hip in 3-4 months. He will require clearance from Neurology, so I will defer to their opinion when it would be safe for him to proceed with having surgery again. Josseline continue working with rehabilitation on mild motor function and strengthening. He will continue taking Tylenol as needed for pain. We will follow up with him after we discuss with Neurology. Thepatient and his family were in agreement with the plan. All questions were answered. documented in this encounter Miscellaneous Notes * Addendum Note - Yola Kumari M.D. - 08/25/2023 8:15 AM CDTAddended by: YOLA KUMARI on: 08/25/2023 11:55 AM Modules accepted: Orders documented in this encounter Plan of Treatment Upcoming Encounters Date Type Department Care Team (Latest Contact Info) Description 01/02/2024 11:30 AM RETAIL PHARMACY MANAGER Clinical Communication Virtual Review in [place], [place] 200 [place] [phone] 01/05/2024 9:20 AM RETAIL PHARMACY MANAGER Lab Department of Infusion Therapy in [address] [phone] Vel Vinson M.D., M.B.A. [address] [place] [address] [phone] 01/05/2024 10:15 AM RETAIL PHARMACY MANAGER Appointment Department of Radiology, [facility], in [place], [place] [address] [place] [address] [phone] Vel Vinson M.D., M.B.A. [address] [place] [phone] 01/05/2024 10:45 AM RETAIL PHARMACY MANAGER Comprehensive Visit Section of Infectious Diseases in [place], [place] [address] [place] [address] [phone] Maddy Bingham P.A.-C. [address] [place] [address] [phone] 01/05/2024 11:15 AM RETAIL PHARMACY MANAGER Office Visit Department of Orthopedic Surgery in [place], [place] [address] [place] [phone] Vel Vinson M.D., M.B.A. [address] [place] [phone] 01/06/2024 Hospital Encounter [facility]ST [facility]EI 02 4 AM ADMIT [address] [place] [phone] Vel Vinson M.D., M.B.A. [address] [place] [address] [phone] Scheduled Procedures Name Priority Associated Diagnoses Date/Ti me ARTHROPLASTY REVISION FEMORAL+ACETABULAR HIP Infection Total Hip Arthroplasty Subsequent Right documented as of this encounter Visit Diagnoses Diagnosis Infection Total Hip Arthroplasty Subsequent Right- Primary Stroke (HCC) documented in this encounter Care Teams Clay Washer Relationship Specialty Start Date End Date Doug Lima M.D. [address] [place] [phone] PCP - General Family Medicine 01/28/17 10/02/23 documented as of this encounter
== END 2023-11-03 07:00 | disposition short-term general hospital (02) ==
PROVIDERS: Emergency Provider Student in an Organized Health Care Education/Training Program; PCP Family Medicine
DX: K92.2 Gastrointestinal hemorrhage, unspecified (principal)
CPT/HCPCS: 36415; 36430; 74174; 80053; 82270; 82565; 84484; 85025; 85384; 85610; 85730; 86850; 86900; 86901; 86922; 93005; 96374; 96375; 99285; 99291; J2470; J7120; J7169; P9016; Q9967

== ENCOUNTER 2023-11-03 06:48 | Outpatient (CLI) | payer OTHER, SELFPAY ==
--- OUTSIDE RECORDS SUMMARY | 2023-11-08 08:13 | XMS_ITS | Clinical Summary ---
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 Pressure: 5-18cm/H2O Length of Need: 99 1 Device 0 04/27/19 16 Active acetaminophen (TYLENOL EXTRA STRGTH) 500 mg tablet Take 1,000 mg by mouth three times daily. Max acetaminophen dose: 4000mg in 24 hrs. Active levETIRAcetam (KEPPRA) 100 mg/mL oral solution Take 750 mg by mouth two times daily. 06/25/19 24 Active lisinopriL (PRINIVIL; ZESTRIL) 5 mg tablet Take 5 mg by mouth once daily. 09/03/19 24 Active rivaroxaban (XARELTO) 10 mg tablet Take 10 mg by mouth once daily with evening meal. 08/28/19 24 025 Active Senna 8.6 mg tablet Take 8.6 mg by mouth once daily. 10/29/19 24 Active aspirin chewable 81 mg chewable tablet Chew 81 mg by mouth once daily. Active atorvastatin (LIPITOR) 20 mg tablet Take 20 mg by mouth at bedtime. Active insulin NPH isophane, U-100, (NovoLIN N FlexPen) 100 unit/mL (3 mL) pen Inject subcutaneous two times daily with meals. As of 11/03/23: 8 units in AM, 4 units in afternoon Active carboxymethylcellulo se 0.5 % eye drops in dropperette Place 2 Drops into both eyes two times daily. Active nystatin powder (MYCOSTATIN) powder Apply topically to affected area(s) two times daily. Active pantoprazole (PROTONIX) 40 mg delayed-release tabletIndications:Ga strointestinal hemorrhage, unspecified gastrointestinal hemorrhage type Take 1 Tablet (40 mg) by mouth two times daily before meals. 40 mg p.o. twice daily for 30 days, then decrease to 40 mg p.o. daily indefinitely 90 Tablet 11/06/19 24 Active polyethylene glycol (MIRALAX; GLYCOLAX) 17 g per packet packetIndications:Co nstipation, unspecified constipation type Mix 17 g (1 Packet) in liquid then take by mouth once daily if needed for Constipation. 30 Packet 11/06/19 24 Active sucralfate (CARAFATE) 1 gram tabletIndications:Ga strointestinal hemorrhage, unspecified gastrointestinal hemorrhage type Take 1 Tablet (1 g) by mouth four times daily before meals and at bedtime. Stop after 30 days 120 Tablet 11/06/19 24 Active lisinopril-hydrochlo rothiazide, 20-25 mg, (PRINZIDE, ZESTORETIC) 20-25 mg per tabletIndications:Hy pertension Take 1 tablet by mouth once daily. 90 tablet 3 03/16/19 16 024 Discontinued( Pharmacist change per medication history (E-cancel not sent)) metFORMIN (GLUCOPHAGE) 1,000 mg tabletIndications:Ty pe 2 diabetes mellitus without complication (HC) Take 1 tablet by mouth 2 times daily with meals. 0.5 tab in am x 5 days; 0.5 tab bid x 5 d; 1 tab in am, 0.5 in pm x 5 d, then 1 tab bid 180 tablet 3 05/04/19 16 024 Discontinued( Pharmacist change per medication history (E-cancel not sent)) aspirin (ECOTRIN) 81 mg enteric coated tablet Take 81 mg by mouth once daily. 024 Discontinued( Pharmacist change per medication history (E-cancel not sent)) atorvastatin (LIPITOR) 20 mg tablet Take 20 mg by mouth once daily. 024 Discontinued( Pharmacist change per medication history (E-cancel not sent)) carboxymethylcellulo se 0.5 % eye drops in dropperette Place 1 Drop into both eyes each time if needed for Dry Eyes. 024 Discontinued( Pharmacist change per medication history (E-cancel not sent)) insulin NPH isophane, U-100, (NovoLIN N FlexPen) 100 unit/mL (3 mL) pen Inject subcutaneous. 024 Discontinued( Pharmacist change per medication history (E-cancel not sent)) nystatin powder (MYCOSTATIN) powder Apply topically to affected area(s) 2 times daily if needed. 09/19/19 024 Discontinued( Pharmacist change per medication history (E-cancel not sent)) zinc oxide 20 % ointment Apply topically to affected area(s) once daily if needed. 07/31/19 024 Discontinued( Pharmacist change per medication history (E-cancel not sent)) Active Problems Problem Noted Date Diagnosed Date Gastrointestinal hemorrhage 11/03/2023 Overview (11/05/2023): Due to Oralia Corado tear in the setting of vomiting while on ASA and Xarelto in 10/2023. 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 Stenosis of right carotid artery 08/09/2022 Peripheral arterial disease 03/10/2020 MICHELET 04/23/2015 AHI-73 04/27/2015 Hyperplastic colon polyp 04/21/2015 Overview (04/21/2015): Colonoscopy 04/2015 hyperplastic polyp repeat in 5 years Type II diabetes mellitus Hypertension Hyperlipidemia Encounters Date Type Department Care Team Description 11/07/19 Lab Requisition [facility] [phone] William Edwards MD 11/03/19 1:45 PM CDT - 11/03/19 2:10 PM CDT Surgery [facility] [address] [place] [address] Gino Kern MD ESOPHAGOGASTRODUODENOSCOPY 11/03/19 7:49 AM CDT - 11/07/19 11:20 AM CDT Hospital Encounter [facility] [address] [place] [address] Sierra Salazar MD [facility], Sreedhar Arriola MD [facility], Julianne Davidson MD [facility] Gastrointestinal hemorrhage, unspecified gastrointestinal hemorrhage type (Primary Dx); Constipation, unspecified constipation type Discharge Disposition: Long-Term Facility 11/03/19 24 Orders Only [facility] Scanner 1 scan: (1-Ord) [place], [place] ANGIO ABD PEL GI BLEED, 11/03/2023 10/27/19 Lab Requisition [facility] [phone] Pauline Mcbride NP 09/18/19 24 Lab Requisition [facility] [phone] Pauline Mcbride NP 09/05/19 24 Lab Requisition [facility] [phone] Pauline Mcbride NP 08/26/19 24 Lab Requisition [facility] [phone] William Edwards MD from Last 3 Months [...] Sign Reading Time Taken Comments Blood Pressure 141/71 11/07/2023 7:53 AM CDT Pulse 62 11/07/2023 7:53 AM CDT Temperature 36.6 ??C (97.9 ??F) 11/07/2023 7:53 AM CD T Respiratory Rate 18 11/07/2023 7:53 AM CDT Oxygen Saturation 96% 11/07/2023 7:53 AM CDT Inhaled Oxygen Concentration - - [...] 09/23/2023, 07/22/2023, 03/16/2015 Tdap Completed 04/27/2015 Procedures Procedure Name Priority Date/Time Associated Diagnosis Comments GLUCOSE METER Timed 11/07/2023 6:57 AM CDT GLUCOSE METER Timed 11/06/2023 6:20 PM CDT XR CHEST 1 VIEW PORTABLE STAT 024 12:55 PM CDT GLUCOSE METER Timed 11/06/2023 12:43 PM CDT EKG 12 LEAD STAT 11/06/2023 12:12 PM CDT POTASSIUM Early AM 11/06/2023 10:27 AM CDT HEMOGLOBIN Early AM 11/06/2023 10:27 AM CDT GLUCOSE METER Timed 11/06/2023 9:25 AM CDT GLUCOSE METER Timed 11/05/2023 5:18 PM CDT GLUCOSE METER Timed 11/05/2023 12:50 PM CDT GLUCOSE METER Timed 11/05/2023 6:43 AM CDT CREATININE Early AM 11/05/2023 5:05 AM CDT POTASSIUM Early AM 11/05/2023 5:05 AM CDT SODIUM Early AM 11/05/2023 5:05 AM CDT CBC W PLT NO DIFF Early AM 11/05/2023 5:05 AM CDT GLUCOSE METER Timed 11/04/2023 10:11 PM CDT [...] CDT ESOPHAGOGASTRODUODENOSCOPY 11/02 12:35 PM CDT See note ENDOSCOPY 11/03/2023 12:30 PM CDT TYPE & [...] 3 Months Results * (ABNORMAL) GLUCOSE METER (11/07/2023 6:57 AM CDT) Only the most recent of12 resultswithin the time period is included. GLUCOSE METER 123(H) 65 - 100 mg/dL 11/07/2023 7:00 AM CDT [facility] Blood BLOOD SPECIMEN / Unknown 11/07/2023 6:57 AM CDT 11/07/2023 7:00 AM CDT Julianne Velasquez MD [facility] [address] [place] [address], * XR Chest 1 View Portable - [employer] (11/06/2023 12:55 PM CDT) Anatomical Region Laterality Modality HEART, THORAX, CHEST Digital Rad iography 11/06/2023 1:15 PM CDT Impressions 11/06/2023 1:15 PM CDT No focal pulmonary opacities. No pneumothorax. Dictated by Connor Clark MD @ Nov 06 2023 ??1:15PM (Electronically Signed) [email or web address] Narrative 11/06/2023 1:15 PM CDT For Patients: ??As a result of the Cures Act, medical imaging exams and procedure reports are released immediately into your electronic medical record. ??You may view this report before your referring provider. ??If you have questions, please contact your health care provider. INDICATION: Chest pain. FINDINGS: A single portable chest x-ray shows a normal cardiac silhouette. The lungs show no focal pulmonary opacities. Sharp pleural margins. No pneumothorax. Procedure Note Connor Clark MD - 11/06/2023 For Patients: As a result of the Cures Act, medical imagingexams and procedure reports are released immediately into your electronicmedical record. You may view this report before your referring provider.If you have questions, please contact your health care provider. INDICATION: Chest pain. FINDINGS: A single portable chest x-ray shows a normal cardiac silhouette. The lungs show no focal pulmonary opacities. Sharp pleural margins. Nopneumothorax. IMPRESSION: No focal pulmonary opacities. No pneumothorax. Dictated by Connor Clark MD @ Nov 06 2023 1:15PM (Electronically Signed) [email or web address] * 12 Lead EKG - [employer] (11/06/2023 12:12 PM CDT) Interpretation Sinus bradycardia Low voltage QRS Borderline ECG No previous ECGs available BEYOND NOW Ventricular Rate 57 BPM BEYOND NOW Atrial Rate 57 BPM BEYOND NOW P-R Interval 160 ms BEYOND NOW QRS Duration 92 ms BEYOND NOW QT 444 ms BEYOND NOW QTc 432 ms BEYOND NOW P [place] -19 degrees BEYOND NOW R [place] -4 degrees BEYOND NOW T [place] -1 degrees BEYOND NOW 11/06/2023 12:1 2 PM CDT 11/07/2023 6:50 PM CDT Julianne Velasquez MD EKG ORD Performing Organization Address City/[facility] Co de Phone Number BEYOND NOW [place], [place] * (ABNORMAL) HEMOGLOBIN (11/06/2023 10:27 AM CDT) Only the most recent of3 resultswithin the time period is included. HEMOGLOBIN 10.0(L) 13.5 - 17.5 g/dL 11/06/2023 10:52 AM CDT [facility] MCV 86 80 - 100 fL 11/06/2023 10:52 AM CDT [facility] Blood BLOOD SPECIMEN / Unknown Butterfly / Unknown 11/06/2023 10:27 AM CDT 11/06/2023 10:44 AM CDT Julianne Velasquez MD HEMATOLOGY Performing Organization Address [facility] Co de Phone Number [facility] [address] [place], [place] [id number], [place] * POTASSIUM (11/06/2023 10:27 AM CDT) Only the most recent of3 resultswithin the time period is included. Pathologist [facility] POTASSIUM 4.2 3.5 - 5.1 mmol/L 11/06/2023 11:08 AM CDT [facility] Blood BLOOD SPECIMEN / Unknown Butterfly / Unknown 11/06/2023 10:27 AM CDT 11/06/2023 10:44 AM CDT Aditya Espinal RN CHEMISTRY Performing Organization Address City/[facility] Co de Phone Number [facility] [address] [place] [address], [place] * (ABNORMAL) CBC no diff AM (11/05/2023 5:05 AM CDT) Only the most recent of2 resultswithin the time period is included. WHITE BLOOD COUNT 8.6 4.5 - 11.0 thou/cu mm 11/05/2023 5:38 AM CDT [facility] RED BLOOD COUNT 3.20(L) 4.30 - 5.90 mil/cu mm 11/05/2023 5:38 AM CDT [facility] HEMOGLOBIN 9.1(L) 13.5 - 17.5 g/dL 11/05/2023 5:38 AM CDT [facility] HEMATOCRIT 27.8(L) 37.0 - 53.0 % 11/05/2023 5:38 AM CDT [facility] MCV 87 80 - 100 fL 11/05/2023 5:38 AM CDT [facility] MCH 28.4 26.0 - 34.0 pg 11/05/2023 5:38 AM CDT [facility] MCHC 32.7 32.0 - 36.0 g/dL 11/05/2023 5:38 AM CDT [facility] RDW 14.7 11.5 - 15.5 % 11/05/2023 5:38 AM CDT [facility] PLATELET COUNT 177 140 - 440 thou/cu mm 11/05/2023 5:38 AM CDT [facility] MPV 9.5 6.5 - 11.0 fL 11/05/2023 5:38 AM CDT [facility] NRBC 0.0 % 11/05/2023 5:38 AM CDT [facility] ABS NRBC 0.0 thou /cu mm 11/05/2023 5:38 AM CDT [facility] Blood BLOOD SPECIMEN / Unknown Butterfly / Unknown 11/05/2023 5:05 AM CDT 11/05/2023 5:19 AM CDT Julianne Velasquez MD [facility]OLOG[facility] [address] [place] [address], * SODIUM (11/05/2023 5:05 AM CDT) SODIUM 140 136 - 145 mmol/L 11/05/2023 5:51 AM CDT [facility] Blood BLOOD SPECIMEN / Unknown Butterfly / Unknown 11/05/2023 5:05 AM CDT 11/05/2023 5:19 AM CDT Julianne Velasquez MD CHEMISTRY Performing Organization Address [facility] de Phone Number [facility] [address] [place] [address], * CREATININE (11/05/2023 5:05 AM CDT) [facility] eGFR >90 >90 mL/min/1.7 3m2 11/05/2023 5:51 AM CDT [facility] Comment:As of 2021, eG FR is calculated by the CKD-EPI creatinine equation without race adjustment. ??eGFR can be influenced by muscle mass, exercise, and diet. ??The reported eGFR is an estimation only and is only applicable if the renal function is stable. CREATININE 0.86 0.70 - 1.20 mg/dL 11/05/2023 5:51 AM CDT [facility] Blood BLOOD SPECIMEN / Unknown Butterfly / Unknown 11/05/2023 5:05 AM CDT 11/05/2023 5:19 AM CDT Julianne Velasquez MD CHEMISTRY Performing Organization Address [facility] Co de Phone Number [facility] [address] [place] [address], * SCAN-CARDIAC STRIP (11/04/2023 2:59 PM CDT) Scanner OTHER * CALCIUM IONIZED HOSPITAL DRAW ONLY (11/04/2023 12:00 PM CDT) Pathologist [facility] CALCIUM,IONIZE D 1.22 1.15 - 1.27 mmol/L 11/04/2023 12:12 PM CDT [facility] Blood BLOOD SPECIMEN / Unknown Venipuncture / Unknown 11/04/2023 12:00 PM CDT 11/04/2023 12:08 PM CDT Sreedhar Martini MD CHEMISTRY Performing Organization Address City/[facility]/ZIP Co de Phone Number [facility] [address] [place] [address], * SCAN-CARDIAC STRIP (11/04/2023 7:05 AM CDT) Scanner OTHER * PHOSPHORUS (11/04/2023 5:08 AM CDT) Only the most recent of2 resultswithin the time period is included. PHOSPHORUS 2.8 2.5 - 4.5 mg/dL 11/04/2023 6:21 AM CDT [facility] Blood BLOOD SPECIMEN / Unknown Butterfly / Unknown 11/04/2023 5:08 AM CDT 11/04/2023 5:41 AM CDT Sierra Salazar MD CHEMISTRY Performing Organization Address [facility] Co de Phone Number [facility] [address] [place] [address], * MAGNESIUM (11/04/2023 5:08 AM CDT) Only the most recent of2 resultswithin the time period is included. MAGNESIUM 1.7 1.6 - 2.6 mg/dL 11/04/2023 6:21 AM CDT [facility] Blood BLOOD SPECIMEN / Unknown Butterfly / Unknown 11/04/2023 5:08 AM CDT 11/04/2023 5:41 AM CDT Sierra Salazar MD CHEMISTRY Performing Organization Address City/[facility]/ZIP Co de Phone Number [facility] [address] [place] [address], * (ABNORMAL) BASIC METABOLIC PANEL (11/04/2023 5:08 AM CDT) Only the most recent of3 resultswithin the time period is included. SODIUM 137 136 - 145 mmol/L 11/04/2023 8:32 AM T [facility] POTASSIUM 4.7 3.5 - 5.1 mmol/L 11/04/2023 8:32 AM T [facility] CHLORIDE 105 98 - 107 mmol/L 11/04/2023 8:32 AM T [facility] CO2,TOTAL 24 22 - 29 mmol/L 11/04/2023 8:32 AM T [facility] ANION GAP 8 5 - 18 11/04/2023 8:32 AM T [facility] GLUCOSE 192(H) 70 - 99 mg/dL 11/04/2023 8:32 AM T [facility] CALCIUM 8.4(L) 8.6 - 10.0 mg/dL 11/04/2023 8:32 AM [facility] BUN 33(H) 6 - 20 mg/dL 11/04/2023 8:32 AM T [facility] CREATININE 0.83 0.70 - 1.20 mg/dL 11/04/2023 8:32 AM [facility] BUN/CREAT RATIO 40(H) 10 - 20 8:32 AM T [facility] eGFR >90 >90 mL/min/1.7 3m2 11/04/2023 8:32 AM [facility] Comment:As of 2021, eG [...] 5:41 AM CDT Sreedhar Martini MD CHEMISTRY [facility] [address] [place] [address], [place] * SCAN-CARDIAC STRIP (11/03/2023 2:56 PM CDT) [...] GI endoscopy Proceduralist: Gino Kern MD - [facility] Indications/Pre-Op Diagnosis: Coffee-ground emesis, Melena Medications: Fentanyl 100 micrograms IV, Midazolam 1 mgIV Procedure Description: Risk of bleeding, infection, perforation, need for surgery and alternatives discussed. The endoscope [id number] was introduced through the mouth, and advanced to the second part of duodenum. The upper GI endoscopy was accomplished without difficulty. The patient tolerated the procedure well. Complications: No immediate complications. Estimated Blood Loss & Specimen: Estimated blood loss: none. Findings: The esophagus was normal. A 6 mm bleeding Oralia-Corado tear with stigmata of recent bleedingwas found. Hematin (altered blood/pvyefd-sjekgv-sppy material) was found on the greater curvature of the stomach. The duodenal bulb, first portion of the duodenum and second portionof the duodenum were normal. Impressions/Post-Op Diagnosis: - Normal esophagus. - Oralia-Corado tear. - Hematin (altered blood/bqazhd-dsutns-xyuh material) in the greater curvature of the stomach. - Normal duodenal bulb, first portion of the duodenum and secondportion of the duodenum. - No specimens collected. Recommendation: - Observe patient in ICU. PPIs- clear liquid and ADAT if hgb [id number]-[id number] if needed Gino Kern MD 11/03/2023 1:09:30 PM This report has been signed electronically. Note Initiated On: 11/03/2023 12:30 PM Gino Kern MD PROCEDURE ORD * (ABNORMAL) CBC WITH AUTO DIFFERENTIAL (11/03/2023 9:34 AM CDT) WHITE BLOOD COUNT 10.8 4.5 - 11.0 thou/cu mm 11/03/2023 9:48 AM CDT [facility] RED BLOOD COUNT 3.63(L) 4.30 - 5.90 mil/cu mm 11/03/2023 9:48 AM CDT [facility] HEMOGLOBIN 10.2(L) 13.5 - 17.5 g/dL 11/03/2023 9:48 AM CDT [facility] HEMATOCRIT 31.7(L) 37.0 - 53.0 % 11/03/2023 9:48 AM CDT [facility] MCV 87 80 - 100 fL 11/03/2023 9:48 AM CDT [facility] MCH 28.1 26.0 - 34.0 pg 11/03/2023 9:48 AM CDT [facility] MCHC 32.2 32.0 - 36.0 g/dL 11/03/2023 9:48 AM CDT [facility] RDW 14.7 11.5 - 15.5 % 11/03/2023 9:48 AM CDT [facility] PLATELET COUNT 191 140 - 440 thou/cu mm 11/03/2023 9:48 AM CDT [facility] MPV 9.5 6.5 - 11.0 fL 11/03/2023 9:48 AM CDT [facility] NRBC 0.0 % 11/03/2023 9:[facility] ABS NRBC 0.0 thou /cu mm 11/03/2023 9:48 AM CDT [facility] % NEUT 57.9 % 11/03/2023 9:48 AM [facility] % LYMPH 20.6 % 11/03/2023 9:48 AM [facility] % MONO 14.0 % 11/03/2023 9:48 AM [facility] % EOS 2.8 % 11/03/2023 9:48 AM [facility] % BASO 0.6 % 11/03/2023 9:48 AM [facility] % IMMATURE GRAN (METAS,MYELOS,SD OS) 4.1 % 11/03/2023 9:48 AM CDT [facility] ABSOLUTE NEUTROPHILS 6.2 1.7 - 7.0 thou/cu mm 11/03/2023 9:48 AM CDT [facility] ABSOLUTE LYMPHOCYTES 2.2 0.9 - 2.9 thou/cu mm 11/03/2023 9:48 AM CDT [facility] ABSOLUTE MONOCYTES 1.5(H) <0.9 thou/cu mm 11/03/2023 9:48 AM CDT [facility] ABSOLUTE EOSINOPHILS 0.3 <0.5 thou/cu mm 11/03/2023 9:48 AM CDT [facility] ABSOLUTE BASOPHILS 0.1 <0.3 thou/cu mm 11/03/2023 9:48 AM CDT [facility] ABSOLUTE IMMATURE GRANULOCYTES(MET ,MYELOS,PROS) 0.4(H) <0.3 thou/cu mm 11/03/2023 9:48 AM CDT [facility] Blood BLOOD SPECIMEN / Unknown Non-Lab Venipuncture / Unknown 11/03/2023 9:34 AM CDT 11/03/2023 9:44 AM CDT Ede Casas MD HEMATOLOGY [facility] [address] [place] [address], [place] * TYPE & SCREEN (11/03/2023 9:34 AM CDT) ABORH O Rh Positive 11/03/2023 10:26 AM CDT [facility] ANTIBODY SCREEN Negative Negative 11/03/2023 10:26 AM CDT [facility] B[facility] SPECIMEN EXPIRATION DATE/TIME 11/06/23 23:59 11/03/2023 10:26 AM CDT [facility] B[facility] Blood BLOOD SPECIMEN / Unknown Non-Lab Venipuncture / Unknown 11/03/2023 9:34 AM CDT 11/03/2023 9:43 AM CDT Raquel Aaorn MD BLOOD BANK [facility] [address] [place] [address], [place] [phone] * (ABNORMAL) Protime - INR (11/03/2023 9:34 AM CDT) INR 1.4(H) <1.3 11/03/2023 9:59 AM CDT [facility] PROTIME 15.2(H) 10.3 - 12.3 sec 11/03/2023 9:59 AM CDT [facility] Blood BLOOD SPECIMEN / Unknown Non-Lab Venipuncture / Unknown 11/03/2023 9:34 AM CDT 11/03/2023 9:44 AM CDT Narrative [facility] - 11/03/2023 9:59 AM CDT ?Therapeutic Range [...] Ede Casas MD HEMATOLOGY Performing Organization Address City/[facility]/ZIP Co de Phone Number [facility] [address] [place] [address], * FIBRINOGEN,QUANTITATIVE (11/03/2023 9:34 AM CDT) FIBRINOGEN,JESS NTITATIVE 268 193 - 401 mg/dL 11/03/2023 9:59 AM CDT [facility] Blood BLOOD SPECIMEN / Unknown Non-Lab Venipuncture / Unknown 11/03/2023 9:34 AM CDT 11/03/2023 9:44 AM CDT Ede Casas MD HEMATOLOGY Performing Organization Address City/[facility]/ZIP Co de Phone Number [facility] [address] [place] [address], * SCAN-CT INTERPRETATION (11/03/2023 12:00 AM CDT) Anatomical Region Laterality Modality Other Scanner OTHER * (ABNORMAL) GAMMA GT (10/28/2023 7:30 AM CDT) Only the most recent of2 resultswithin the time period is included. GAMMA GT 146(H) 8 - 61 IU/L 10/28/2023 12:47 PM CDT [facility] Blood BLOOD SPECIMEN / Unknown Venipuncture / Unknown 10/28/2023 7:30 AM CDT 10/28/2023 8:54 AM CDT Pauline Mcbride NP [facility]STRY [facility] [address] [place] [address], * (ABNORMAL) HEPATIC FUNCTION PANEL (10/28/2023 7:30 AM CDT) Only the most recent of3 resultswithin the time period is included. Pathologist [facility] ALBUMIN 3.9(L) 4.0 - 4.9 g/dL 10/28/2023 9:20 AM [facility] PROTEIN,TOTAL 7.1 6.0 - 8.0 g/dL 10/28/2023 9:20 AM [facility] BILIRUBIN,TOTAL 0.5 0.0 - 1.2 mg/dL 10/28/2023 9:20 AM [facility] BILIRUBIN,DIRECT 0.2 0.0 - 0.2 mg/dL 10/28/2023 9:20 AM [facility] BILIRUBIN,INDIRE CT 0.3 0.2 - 0.8 mg/dL 10/28/2023 9:20 AM [facility] ALK PHOSPHATASE 204(H) 40 - 129 IU/L 10/28/2023 9:20 AM [facility] ALT (SGPT) 35 10 - 50 IU/L 10/28/2023 9:20 AM [facility] AST (SGOT) 39 10 - 50 IU/L 10/28/2023 9:20 AM [facility] Blood BLOOD SPECIMEN / Unknown Venipuncture / Unknown 10/28/2023 7:30 AM CDT 10/28/2023 8:54 AM CDT Pauline Mcbride NP CHEMISTRY [facility] [address] [place] [address] * LIPID PANEL (09/23/2023 7:41 AM CDT) CHOLESTEROL,TOTAL 123 100 - 199 mg/dL 09/23/2023 9:11 AM T [facility] Comment: Cholesterol, Total Reference Ranges Desirable <200 mg/dL Borderline 200-239 mg/dL High >=240 mg/dL TRIGLYCERIDES 94 <150 mg/dL 09/23/2023 9:11 AM [facility] HDL CHOLESTEROL 48 >40 mg/dL 9:11 AM [facility] NON-HDL CHOLESTEROL 75 <145 mg/dl 09/23/2023 9:11 AM [facility] CHOL/HDL RATIO 2.56 <4.50 09/23/2023 9:11 AM [facility] LDL CHOLESTEROL 56 <=130 mg/dL 09/23/2023 9:11 AM [facility] VLDL CHOLESTEROL 19 <=30 mg/dL 09/23/19 9:11 AM [facility] Blood BLOOD SPECIMEN / Unknown Venipuncture / Unknown 09/23/2023 7:41 AM CDT 09/23/2023 8:46 AM CDT Pauline Mcbride NP CHEMISTRY [facility] [address] [place] [address] * HEMOGLOBIN A1C SCREENING (09/02/2023 7:31 AM CDT) HEMOGLOBIN A1C SCREENING 5.3 <=6.4 % 09/02/2023 8:33 AM CDT [facility] Blood BLOOD SPECIMEN / Unknown Venipuncture / Unknown 09/02/2023 7:31 AM CDT 09/02/2023 8:27 AM CDT Narrative [facility] - 09/02/2023 8:33 AM CDT ? (<5.7%) ?Normal ? (5.7% to 6.4%) ? Indicates prediabetes ? (>=6.5%) ? 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
--- OUTSIDE RECORDS SUMMARY | 2023-11-08 08:13 | XMS_ITS | Clinical Summary ---
Author Organization [facility] Address [address] [place] [address] Care Team Providers Care Lead Java Programmer Name Role Phone Elsewhere, Pcp Primary Care Provider Unavailabl e Source Comments Patient records contain information from all sites at [facility]. For routine questions regarding patient records, call [phone] during business hours, M-F 8:00 AM - 5:00 PM Central Time. Record requests for emergency care only can be directed to [phone] at any time.[facility] Allergies Active Allergy Reactions Criticality Noted Date Comments Cefazolin Other (see comments) 08/25/2023 Possible increase in alkaline phosphatase please see ID notes Medications Medication Sig Dispensed Refills Start Date End Date Status lancets 1 each daily. 50 each 07/29/2022 Active blood sugar diagnostic strips 1 test daily. 30 test 07/29/2022 Active blood-glucose meter (FreeStyle [place]) kit Use as instructed 1 each 07/29/2022 Active blood glucose ctl high,nml,low solution Glucose control solution provides an easy way to ensure accurate blood glucose testing. 1 each 07/29/2022 Active flash glucose scanning reader (FreeStyle Jessica 2 [place]) miscIndications:Bhargavi betes Mellitus Type 2 Ulcer Foot [...] (04/17/2020): Added automatically from request for surgery [id number] Hyponatremia 03/09/2020 07/30/2022 Hyperkalemia 03/09/2020 07/30/2022 Cellulitis 03/08/2020 03/20/2020 Cellulitis Foot Right 03/08/20202022 Diabetes Mellitus Type 2 Hyperglycemia 02/18/2017 04/17/2022 Diabetes Mellitus Type 2 Ulcer Foot 04/17/2022 Encounters Date Type Department Care Team Description 11/03/2023 Intake [facility] 10/21/2023 Clinical Communication Department of Orthopedic Surgery in [address] [phone] Vel Vinson M.D., M.B.A. 10/03/2023 1:00 PM CDT Comprehensive Visit Department of Neurology in [address] [phone] Balbir Maradiaga M.D. Stroke Cerebrovascular Accident Personal History (Primary Dx); Seizure (HCC); Stenosis Carotid Artery Left 10/01/2023 Abstract [place], [place] [address] [place] [phone] Provider, Historical 09/24/2023 2:45 PM CDT Clinical Communication Virtual Review in [place], [place] [address] [place] [address] 09/08/2023 Orders Only Section of Infectious Diseases in [address] [address] Storm Nicole M.D. 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 Occlusion Carotid Artery Left (Primary Dx); Stenosis Carotid Artery Right; Peripheral Arterial Disease (HCC); Stroke (HCC); Infection Total Hip Arthroplasty Subsequent Right; Hemiplegia Flaccid Dominant Side Right (HCC) 08/27/2023 Orders Only Department of Neurologic Surgery in [address] [phone] Rosalie Sosa R.N., CNRN Stenosis Carotid Artery Right (Primary Dx); Occlusion Carotid Artery Left; Peripheral Arterial Disease (HCC); Stroke (HCC); Infection Total Hip Arthroplasty Subsequent Right; Hemiplegia Flaccid Dominant Side Right (HCC) 08/27/2023 Clinical Communication Department of Neurologic Surgery in [place], [place] [address] [place] [phone] Fantasma Butt M.D. 08/26/2023 Orders Only [facility] P[facility] Doug Lima M.D. Diabetes Mellitus Type 2 Peripheral Neuropathy (HCC) 08/25/2023 3:00 PM CDT Office Visit Department of Neurologic Surgery in [place], [place] [address] [place] [phone] Fantasma Butt M.D. Stenosis Carotid Artery Right (Primary Dx); Occlusion Carotid Artery Left 08/25/2023 12:11 PM CDT - 08/25/2023 11:59 PM CDT Hospital Encounter Department of Radiology, [facility] in [place], [place] [address] [place] [phone] Radha Ojeda P.A.-C., M.S. Stenosis Carotid Artery Bilateral Discharge Disposition: Home or Self Care 08/25/2023 9:00 AM CDT Comprehensive Visit Section of Infectious Diseases in [address] [phone] Sylvester Robb P.A.-C. Storm Nicole M.D. Infection Total Hip Arthroplasty Subsequent Right (Primary Dx) 08/25/2023 8:15 AM CDT Office Visit Department of Orthopedic Surgery in [place], [place] [address] [place] [phone] Vel Vinson M.D., M.B.A. 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 Infection Total Hip Arthroplasty Subsequent Right Discharge Disposition: Home or Self Care 08/20/2023 12:00 PM CDT Clinical Communication Virtual Review in [place], [place] [address] [place] [address] Pre-visit Intake from Last 3 Months Immunizations [...] drink = 0.6 oz pur e alcohol) [facility] [employer] Answer Date Recorded In the past 12 months has e electric, gas, oil, or water Vestiage threatened to shut off services in your [...] Contact Info) Description 01/02/2024 11:30 AM SENIOR GAME DESIGNER Clinical Communication Virtual Review in [place], [place] [address] [place] [address] 01/05/2024 9:20 AM SENIOR GAME DESIGNER Lab Department of Infusion Therapy in [place], [place] [address] [place] [phone] Vel Vinson M.D., M.B.A. [address] [place] [phone] 01/05/2024 10:15 AM SENIOR GAME DESIGNER Appointment Department of Radiology, [facility], in [place], [place] [address] [place] [phone] Vel Vinson M.D., M.B.A. [address] [place] [phone] 01/05/2024 10:45 AM SENIOR GAME DESIGNER Comprehensive Visit Section of Infectious Diseases in [place], [place] [address] [place] [phone] Maddy Bingham P.A.-C. [address] [place] [phone] 01/05/2024 11:15 AM SENIOR GAME DESIGNER Office Visit Department of Orthopedic Surgery in [place], [place] [address] [place] [phone] Vel Vinson M.D., M.B.A. [address] [place] [phone] 01/06/2024 Hospital Encounter [facility] 02 4 AM ADMIT [address] [place] [phone] Vel Vinson M.D., M.B.A. [address] [place] [phone] Scheduled Procedures Name Priority Associated Diagnoses Date/Ti [...] Additional history exists COVID-19 Vaccine (1 - 2023-2 5 season) 2023 Dilated Eye Exam 11/09/2023 11/08/2022 Influenza Vaccine (#1) 2023 Office Visit for Blood Press ure Check / Re-check 01/03/2024 10/03/2023 Hemoglobin A1C 03/04/2024 09/02/2023, 04/0 07/2023, 05/13/2023, Additional history exists Urine Albumin 03/10/2024 03/10/2023, 02/0 02/2020, 06/22/2018, Additional history exists Creatinine Level (Kidney Fun ction Test) 11/04/2024 11/05/2023, 11/04/2023, 11/03/2023, Additional history exists Sodium Level 11/04/2024 11/05/2023, 10/18, 11/03/2023, Additional history exists Potassium Level 11/05/2024 11/06/2023, 10/18, 11/04/2023, Additional history exists DTaP,Tdap,and Td Vaccines (2 - Td or Tdap) 04/26/2025 04/27/2015 Lipid (Cholesterol) Screening 09/22/2028, 07/22/2023, 05/24/2023, Additional history exists Depression Screening (Annual PHQ-2) Completed 03/10/2023, 03/10/2023 Medical Devices Implanted Type Area Crystal Grower Device Identifier Shelf Expiration Date Model / Serial / Lot Cmnt Bn Smp 40gm - [id number] Implanted:Qty: 1 on 05/23/2023 by Vel Vinson M.D., M.B.A. at [facility] Bone Cement Right: Hip Liliane 6191-1-001 / / Cmnt Bn Smp 40gm - [id number] Implanted:Qty: 1 on 05/23/2023 by Félix Mckeon M.D. at [facility] Bone Cement Right: Hip [place] 6191-1-001 / / Cmnt Bn Smp 40gm - [id number] Implanted:Qty: 1 on 05/23/2023 by Félix Mckeon M.D. at [facility] Bone Cement Right: Hip Liliane 6191-1-001 / / Stnt Protege 0.014 [id number] - [id number] Implanted:Qty: 1 on 08/09/2022 by Fantasma Butt M.D. at [facility] Cardiac Stent Medtronic 02/19/2024 SECX-8-30-1 35 / / [id number] Small Frag-Screw Yasmany 3.5x16 - Amaral [id number] Implanted:Qty: 3 on 2004 Hardware e.g. pins/screws /rods Depuy Synthes Description:Device Manufactu rer - Synthes. Device Status Text - HARDWARE-7597. K-Wire Smooth S.S. Single 9 .062 - Amaral [id number] Implanted:Qty: 1 on 2004 Hardware e.g. pins/screws /rods Liliane Description:Device Manufactu rer - [place] Angel.. Device Status Text - HARDWARE-9295. Small [...] Text - HARDWARE-7599. Pelvic Re-Plate 3.5x10ho - Amraal [id number] Implanted:Qty: 1 on 01/02/2004 Hardware e.g. [...] 2 on 01/02/2004 Hardware e.g. pins/screws /rods [place] Description:Device Manufactu rer - [place] Angel.. Device Status Text - HARDWARE-9484. Small Frag-Screw Yasmany 3.5x26 - Amaral [id number] Implanted:Qty: 1 on 01/02/2004 Hardware e.g. pins/screws /rods Depuy Synthes Description:Device Manufactu rer - Synthes. Device Status Text - HARDWARE-7602. Syn Screw Schanz 5.0x250 - Amaral [id number] Implanted:Qty: 1 on 01/02/2004 Hardware e.g. pins/screws /rods Depuy Synthes Description:Device Manufactu rer - Synthes. Device Status Text - HARDWARE-38898. Guide Wire-Ball Tip 3 X 800 - Amaral [id number] Implanted:Qty: 1 on 02/03/2009 Hardware e.g. pins/screws /rods [place] Description:Device Manufactu rer - Liliane Angel.. Device Status Text - HARDWARE- 75175. [employer] Data - [id number]. Hip Stm Prs Cmnt Rt 3 200 - [id number] Implanted:Qty: 1 on 05/23/2023 by Félix Mckeon M.D. at [facility] Hip Implant Right: Hip Depuy Synthes 08/16/2032 [id number] / / [id number] Lnr Emp Aox Std +4 40x54 - [id number] Implanted:Qty: 1 on 05/23/2023 by Félix Mckeon M.D. at [facility] Hip Implant Right: Hip Depuy Synthes 02/16/2027 4722-54-440 / / [id number] Fem Hd Art +12ofst 40 - [id number] Implanted:Qty: 1 on 05/23/2023 by Vel Vinson M.D., M.B.A. at [facility] Hip Implant Right: Hip Depuy Synthes 02/16/2033 4734-40-120 / / [id number] Stnt [place] 518 8x80 - [id number] Implanted:Qty: 1 on 05/24/2023 by Almaz Olea M.D. at [facility] Vascular Stent [employer] 02/24/2026 [id number] / / [id number] Explanted Type Area Crystal Grower Device Identifier Shelf Expiration Date Model / Serial / Lot Screw-Hgpii S-Tap 6.5 X 15mm - Amaral [id number] Implanted:Qty: 1 on 02/03/2009 Explanted:Qty: 1 on 05/23/2023 by Vel Vinson M.D., M.B.A. at [facility] Hardware e.g. pins/screws /rods Nori [employer]omet Description:Device Manufactu rer - Nori. Device Status Text - HARDWARE-73308. Small Frag-Screw Yasmany 3.5x12 - Amaral [id number] Implanted:Qty: 1 on 01/02/2004 Explanted:Qty: 1 on 05/23/2023 by Vel Vinson M.D., M.B.A. at [facility] Hardware e.g. pins/screws /rods Depuy Synthes Description:Device Manufactu rer - Synthes. Device Status Text - HARDWARE-7595. Small Frag-Screw Yasmany 3.5x16 - Amaral [id number] Implanted:Qty: 2 on 01/02/2004 Explanted:Qty: 2 on 05/23/2023 by Vel Vinson M.D., M.B.A. at [facility] Hardware e.g. pins/screws /rods Depuy Synthes Description:Device Manufactu rer - Synthes. Device Status Text - HARDWARE-7597. Pelvic Re-Plate Cvd 3.5x 6ho - Amaral [id number] Implanted:Qty: 1 on 01/02/2004 Explanted:Qty: 1 on 05/23/2023 by Félix Mckeon M.D. at [facility] Hardware e.g. pins/screws /rods Depuy Synthes Description:Device Manufactu rer - Synthes. Device Status Text - HARDWARE-7366. Right Hip Screw-Hgpii S-Tap 6.5 X 30mm - Amaral [id number] Implanted:Qty: 2 on 02/03/2009 Explanted:Qty: 2 on 05/23/2023 by Vel Vinson M.D., M.B.A. at [facility] Hardware e.g. pins/screws /rods Nori [employer] Description:Device Manufactu rer - Nori. Device Status Text - HARDWARE-33185. Screw-Hgpii S-Tap 6.5 X 35mm - Amaral [id number] Implanted:Qty: 1 on 02/03/2009 Explanted:Qty: 1 on 05/23/2023 by Vel Vinson M.D., M.B.A. at [facility] Hardware e.g. pins/screws /rods [employer]i [employer] Description:Device Manufactu rer - Nori. Device Status Text - HARDWARE-00013. 6.5 Saniya Screw-16mm Thread 65 - Amaral [id number] Implanted:Qty: 1 on 01/02/2004 Explanted:Qty: 1 on 05/23/2023 by Vel Vinson M.D., M.B.A. at [facility] Hardware e.g. pins/screws /rods Depuy Synthes Description:Device Manufactu rer - Synthes. Device Status Text - HARDWARE-85175. Implex-Shell Hedro 54mm - Amaral [id number] Implanted:Qty: 1 on 02/03/2009 Explanted:Qty: 1 on 05/23/2023 by Vel Vinson M.D., M.B.A. at [facility] Hip Implant Other/Legacy - See Implant Description Nori [employer] Description:Device Manufactu rer - Nori. Body Location - Other. Right. Device Status Text - [id number] [id number]. [place]em [place] 8 Hi - Amaral [id number] Implanted:Qty: 1 on 02/03/2009 Explanted:Qty: 1 on 05/23/2023 by Vel Vinson M.D., M.B.A. at [facility] Hip Implant Other/Legacy - See Implant Description [employer] Description:Device Manufactu rer - [employer]. Body Location - Other. Right. Device Status Text - HIP [id number]. Nori Liner 0 Degree 32 X 54m - Amaral [id number] Implanted:Qty: 1 on 02/03/2009 Explanted:Qty: 1 on 05/23/2023 by Vel Vinson M.D., M.B.A. at [facility] Hip Implant Other/Legacy - See Implant Description Nori [employer]omet Description:Device Manufactu rer - Nori. Body Location - Other. Right. Device Status Text - [id number] [id number]. Dep. Head Prodigy 32 + 1.0 - Amaral [id number] Implanted:Qty: 1 on 02/03/2009 Explanted:Qty: 1 on 05/23/2023 by Vel Vinson M.D., M.B.A. at [facility] Hip Implant Other/Legacy - See Implant Description [employer] Description:Device Manufactu rer - J & J Ortho. Body Location - Other. Right. Device Status Text - HIP [id number]. Procedures Procedure Name Priority Date/Time Associated Diagnosis [...] ALBUMIN, RANDOM, U Routine 03/10/2023 11:30 AM SENIOR GAME DESIGNER Diabetes Mellitus Type 2 Ulcer Foot Hyperglycemic [...] normal distal ICA in accordance with [place] Symptomatic Carotid Endarterectomy Trial (NASCET). Procedure Note [...] the ICA. Velocities in the stent of xajqkousx761ja/sec with mild narrowing of the stent seen [...] left ICA. Velocities in the stent of caoneftru211wp/sec with mild narrowing of the stent seen and velocities proximal tothis narrowing are 82cm/sec. Findings consistent with mild in stentnarrowing. No significant stenosis. 3) Stable bilateral ECA stenoses. 4) Right vertebral artery 50-69% stenosis, at the lower end of the range.Stable left vertebral artery 70-99% stenosis. Radha Ojeda P.A.-C. MBelkisS. [facility] IBARRA AUGUST * (ABNORMAL) Hepatic Function [...] Nicole M.D. LAB BLOOD ADD-ON [facility] [address] [place] [address], [facility] [address] [place] [address] * (ABNORMAL) Sedimentation Rate (08/25/2023 8:11 AM CDT) Sedimentation Rate, B 27(H) 2 - 20 mm/h 08/25/2023 10:12 AM CDT DTL Blood (Blood, Venous) 08/25/2023 8:11 AM CDT 08/25/2023 8:51 AM CDT Storm Nicole M.D. LAB BLOOD ADD-ON [facility] [address] [place] [address], [facility] DTL [facility] [address] [place] [address] * (ABNORMAL) CBC with Differential, Blood (08/25/2023 [...] CDT Storm Nicole M.D. LAB BLOOD ADD-ON [facility] [address] [place] [address], [facility] [address] [place] [address] [facility] [address] [place] [address] * CRP (C-Reactive Protein) (08/25/2023 8:11 AM CDT) C-Reactive Protein (CRP), S 3.2 <5.0 mg/L 08/25/2023 9:16 AM CDT DTL Blood (Blood, Venous) 08/25/2023 8:11 AM CDT 08/25/2023 8:55 AM CDT Storm Nicole M.D. LAB BLOOD ADD-ON Performing Organization Address [facility] Co de Phone Number [facility] [address] [place] [address], [facility] [address] [place] [address] * Creatinine with Estimated GFR (08/25/2023 8:11 AM CDT) Creatinine 1.06 0.74 - 1.35 mg/dL 08/25/2023 9:16 AM CDT DTL Estimated GFR (eGFR) 81 >=60 mL/min/BSA 08/25/2023 9:16 AM CDT DTL Comment: Estimated GFR calculated using the 2020 CKD_EPI creatinine equation. Blood (Blood, Venous) 08/25/2023 8:11 AM CDT 08/25/2023 8:55 AM CDT Storm Nicole M.D. LAB BLOOD ADD-ON [facility] [address] [place] [address], [facility] DTL [facility] [address] [place] [address] * DX Hip And Pelvis Right 2-3 [...] * Albumin, Random, Urine (03/10/2023 11:30 AM SENIOR GAME DESIGNER) Microalbumin <12.0 mg/L 03/10/2023 11:54 AM SENIOR GAME DESIGNER RDWG Comment:If clinically indica faviola, contact the lab for additional testing. Creatinine 112 mg/dL 03/10/2023 11:54 AM SENIOR GAME DESIGNER [facility] Albumin/Creatinine Ratio <11 <17 mg/g 03/10/2023 11:54 AM SENIOR GAME DESIGNER [facility] Comment: This ratio may not correspond with the reference range because one or both of the values used to calculate the ratio was above or below the quantification limits. Urine (Urine, Midstream) 03/10/2023 11:30 AM SENIOR GAME DESIGNER 03/10/2023 11:30 AM SENIOR GAME DESIGNER Doug Lima M.D. LAB URINE ORDERABLES [facility] [address] [place] [address], [facility] RDWG [facility] [place] [address] [place] [address] from Last 3 Months or Most Recently Relevant to Health Maintenance Advance Directives For more information, please contact: [phone] * Full Code (Latest Code Status on [...] Due to: Patient not available Care Teams Lead Java Programmer Relationship Specialty Start Date End Date Elsewhere, Pcp PCP - General Internal Medicine 10/03/23
--- OUTSIDE RECORDS SUMMARY | 2023-11-08 08:13 | XMS_ITS ---
Author Organization [facility] Address [address] [place] [address] Care Team Providers Care Director Of Content And Programming Name Role Phone Unavailable Unavailable Unavailable Surgery Details Not on file Complications Check Surgery Details section. Procedure Estimated Blood Loss Check Surgery Details section. Procedure Findings Check Surgery Details section. Procedure Specimens Taken Check Surgery Details section.
--- OUTSIDE RECORDS SUMMARY | 2023-11-08 08:13 | XMS_ITS | Referral Summary ---
Author Organization [facility] Address [address] [place] [phone] Care Team Providers Care Roll Up Operator Name Role Phone Elsewhere, Pcp Primary Care Provider Unavailabl e Source Comments Patient records contain information from all sites at [facility]. For routine questions regarding patient records, call [phone] during business hours, M-F 8:00 AM - 5:00 PM Central Time. Record requests for emergency care only can be directed to [phone] at any time.[facility] Encounters Date Type Department Care Team Description 11/03/2023 Intake [facility] 10/21/2023 Clinical Communication Department of Orthopedic Surgery in [place], [place] [address] [place] [phone] Vel Vinson M.D., M.B.A. 10/03/2023 1:00 PM CDT Comprehensive Visit Department of Neurology in [place], [place] [address] [place] [phone] Balbir Maradiaga M.D. Stroke Cerebrovascular Accident Personal History (Primary Dx); Seizure (HCC); Stenosis Carotid Artery Left 10/01/2023 Abstract [place], [place] [address] [place] [address] Provider, Historical 09/24/2023 2:45 PM CDT Clinical Communication Virtual Review in [place], [place] [address] [place] [address] 09/08/2023 Orders Only Section of Infectious Diseases in [place], [place] [address] [place] [phone] Storm Nicole M.D. Infection Total Hip Arthroplasty Subsequent Right (Primary Dx) 08/28/2023 11:00 AM CDT Internal E-Consult Department of Vascular Medicine in [place], [place] [address] [place] [phone] Gaudencio Escobedo M.D. Occlusion Carotid Artery Left (Primary Dx); Stenosis Carotid Artery Right; Peripheral Arterial Disease (HCC); Stroke (HCC); Infection Total Hip Arthroplasty Subsequent Right; Hemiplegia Flaccid Dominant Side Right (HCC) 08/27/2023 Orders Only Department of Neurologic Surgery in [place], [place] [address] [place] [phone] sRosalie R.N., CNRN Stenosis Carotid Artery Right (Primary Dx); Occlusion Carotid Artery Left; Peripheral Arterial Disease (HCC); Stroke (HCC); Infection Total Hip Arthroplasty Subsequent Right; Hemiplegia Flaccid Dominant Side Right (HCC) 08/27/2023 Clinical Communication Department of Neurologic Surgery in [place], [place] [address] [place] [phone] Fantasma Butt M.D. 08/26/2023 Orders Only [facility] Doug Lima M.D. Diabetes Mellitus Type 2 Peripheral Neuropathy ([facility]) 08/25/2023 6:43 AM CDT - 08/25/2023 12:10 PM CDT Hospital Encounter Department of Radiology, [facility] in [place], [place] [address] [place] [phone] Xavi Hicks M.D. Infection Total Hip Arthroplasty Subsequent Right Discharge Disposition: Home or Self Care 08/25/2023 12:11 PM CDT - 08/25/2023 11:59 PM CDT Hospital Encounter Department of Radiology, [facility] in [place], [place] [address] [place] [phone] Radha Ojeda P.A.-C., M.S. Stenosis Carotid Artery Bilateral Discharge Disposition: Home or Self Care 08/25/2023 9:00 AM CDT Comprehensive Visit Section of Infectious Diseases in [address] [phone] Sylvester Robb P.A.-C. Storm Nicole M.D. Infection Total Hip Arthroplasty Subsequent Right (Primary Dx) 08/25/2023 3:00 PM CDT Office Visit Department of Neurologic Surgery in [address] [phone] Fantasma Butt M.D. Stenosis Carotid Artery Right (Primary Dx); Occlusion Carotid Artery Left 08/25/2023 8:15 AM CDT Office Visit Department of Orthopedic Surgery in [address] [phone] Vel Vinson M.D., M.B.A. Infection Total Hip Arthroplasty Subsequent Right (Primary Dx); Stroke (HCC) 08/20/2023 12:00 PM CDT Clinical Communication Virtual Review in [address] [phone] Pre-visit Intake from Last 3 Months Allergies Active Allergy Reactions Criticality Noted Date Comments Cefazolin Other (see comments) 08/25/2023 Possible increase in alkaline phosphatase please see ID notes Medications Medication Sig Dispensed Refills Start Date End Date Status lancets 1 each daily. 50 each 07/29/2022 Active blood sugar diagnostic strips 1 test daily. 30 test 07/29/2022 Active blood-glucose meter (FreeStyle [place]) kit Use as instructed 1 each 07/29/2022 Active blood glucose ctl high,nml,low solution Glucose control solution provides an easy way to ensure accurate blood glucose testing. 1 each 07/29/2022 Active flash glucose scanning reader (FreeStyle Jessica 2 [place]) miscIndications:Bhargavi betes Mellitus Type 2 Ulcer Foot [...] (04/17/2020): Added automatically from request for surgery [id number] Hyponatremia 03/09/2020 07/30/2022 Hyperkalemia 03/09/2020 07/30/2022 Cellulitis [...] drink = 0.6 oz pur e alcohol) [facility] Utilities Answer Date Recorded In the past 12 months has e [employer], gas, oil, or water company threatened to [...] Contact Info) Description 01/02/2024 11:30 AM INDUSTRIAL SALES REPRESENTATIVE Clinical Communication Virtual Review in [place], [place] [address] [place] [address] 01/05/2024 9:20 AM INDUSTRIAL SALES REPRESENTATIVE Lab Department of Infusion Therapy in [address] [phone] Vel Vinson M.D., M.B.A. [address] [place] [phone] 01/05/2024 10:15 AM INDUSTRIAL SALES REPRESENTATIVE Appointment Department of Radiology, [facility], in [place], [place] [address] [place] [phone] Vel Vinson M.D., M.B.A. [address] [place] [phone] 01/05/2024 10:45 AM INDUSTRIAL SALES REPRESENTATIVE Comprehensive Visit Section of Infectious Diseases in [place], [place] [address] [place] [phone] Maddy Bingham P.A.-C. [address] [place] [phone] 01/05/2024 11:15 AM INDUSTRIAL SALES REPRESENTATIVE Office Visit Department of Orthopedic Surgery in [place], [place] [address] [place] [phone] Vel Vinson M.D., M.B.A. [address] [place] [phone] 01/06/2024 Hospital Encounter [facility] RO 02 4 AM ADMIT [address] [place] [phone] Vel Vinson M.D., M.B.A. [address] [place] [phone] Scheduled Procedures Name Priority Associated Diagnoses Date/Ti me ARTHROPLASTY REVISION FEMORAL+ACETABULAR HIP Infection Total Hip Arthroplasty Subsequent Right Medical Devices Implanted Type Area Thread Cutter Device Identifier Shelf Expiration Date Model / Serial / Lot Cmnt Bn [facility] 40gm - [id number] Implanted:Qty: 1 on 05/23/2023 by Vel Vinson M.D., M.B.A. at [facility] Bone Cement Right: Hip Juliette 6191-1-001 / / Cmnt Bn [facility] 40gm - [id number] Implanted:Qty: 1 on 05/23/2023 by Félix Mckeon M.D. at [facility] Bone Cement Right: Hip Liliane 6191-1-001 / / Cmnt Bn Smp 40gm - [id number] Implanted:Qty: 1 on 05/23/2023 by Félix Mckeon M.D. at [facility] Bone Cement Right: Hip Juliette 6191-1-001 / / Stnt Protege 0.014 [id number] - [id number] Implanted:Qty: 1 on 08/09/2022 by Fantasma Butt M.D. at [facility] Cardiac Stent Medtronic 02/19/2024 SECX-8-30-1 35 / / [id number] Small Frag-Screw Yasmany 3.5x16 - Amaral [id number] Implanted:Qty: 3 on 2004 Hardware e.g. pins/screws /rods Depuy Synthes Description:Device Manufactu rer - Synthes. Device Status Text - HARDWARE-7597. K-Wire Smooth S.S. Single 9 .062 - Amaral [id number] Implanted:Qty: 1 on 2004 Hardware e.g. pins/screws /rods Juliette Description:Device Manufactu rer - Juliette Angel.. Device Status Text - HARDWARE-9295. Small [...] HARDWARE-7602. Syn Screw Schanz 5.0x250 - Amaral [id number] Implanted:Qty: 1 on 01/02/2004 Hardware e.g. pins/screws /rods Depuy Synthes Description:Device Manufactu rer - Synthes. Device Status Text - HARDWARE-89121. Guide Wire-Ball Tip 3 X 800 - Amaral [id number] Implanted:Qty: 1 on 02/03/2009 Hardware e.g. pins/screws /rods Juliette Description:Device Manufactu rer - Juliette Angel.. Device Status Text - HARDWARE- 51397. [facility] Data - [id number]. Hip Stm Prs Cmnt Rt 3 200 - [id number] Implanted:Qty: 1 on 05/23/2023 by Félix Mckeon M.D. at [facility] Hip Implant Right: Hip Depuy Synthes 08/16/2032 [id number] / / [id number] Lnr Emp Aox Std +4 40x54 - [id number] Implanted:Qty: 1 on 05/23/2023 by Félix Mckeon M.D. at [facility] Hip Implant Right: Hip Depuy Synthes 02/16/2027 4722-54-440 / / [id number] Fem Hd Art +12ofst 40 - [id number] Implanted:Qty: 1 on 05/23/2023 by Vel Vinson M.D., M.B.A. at [facility] Hip Implant Right: Hip Depuy Synthes 02/16/2033 4734-40-120 / / [id number] Stnt [place] 518 8x80 - [id number] Implanted:Qty: 1 on 05/24/2023 by Almaz Olea M.D. at [facility] Vascular Stent [employer] 02/24/2026 [id number] / / [id number] Explanted Type Area Thread Cutter Device Identifier Shelf Expiration Date Model / Serial / Lot Screw-Hgpii S-Tap 6.5 X 15mm - Amaral [id number] Implanted:Qty: 1 on 02/03/2009 Explanted:Qty: 1 on 05/23/2023 by Vel Vinson M.D., M.B.A. at [facility] Hardware e.g. pins/screws /rods Nori [employer] Description:Device Manufactu rer - Nori. Device Status Text - HARDWARE-42800. Small Frag-Screw Yasmany 3.5x12 - Amaral [id number] Implanted:Qty: 1 on 01/02/2004 Explanted:Qty: 1 on 05/23/2023 by Vel Vinson M.D., M.B.A. at [facility] Hardware e.g. pins/screws /rods Depuy Synthes Description:Device Manufactu rer - Synthes. Device Status Text - HARDWARE-7595. Small Frag-Screw Yasmany 3.5x16 - Amaral [id number] Implanted:Qty: 2 on 01/02/2004 Explanted:Qty: 2 on 05/23/2023 by Vel Vinson M.D., M.B.A. at [facility] Hardware e.g. pins/screws /rods Depuy Synthes Description:Device Manufactu rer - Synthes. Device Status Text - HARDWARE-7597. Pelvic Re-Plate Cvd 3.5x 6ho - Amaral [id number] Implanted:Qty: 1 on 01/02/2004 Explanted:Qty: 1 on 05/23/2023 by Félix Mckeon M.D. at [facility] Hardware e.g. pins/screws /rods Depuy Synthes Description:Device Manufactu rer - Synthes. Device Status Text - HARDWARE-7366. Right Hip Screw-Hgpii S-Tap 6.5 X 30mm - Amaral [id number] Implanted:Qty: 2 on 02/03/2009 Explanted:Qty: 2 on 05/23/2023 by Vel Vinson M.D., M.B.A. at [facility] Hardware e.g. pins/screws /rods [employer]i [employer] Description:Device Manufactu rer - Nori. Device Status Text - HARDWARE-73395. Screw-Hgpii S-Tap 6.5 X 35mm - Amaral [id number] Implanted:Qty: 1 on 02/03/2009 Explanted:Qty: 1 on 05/23/2023 by Vel Vinson M.D., M.B.A. at [facility] Hardware e.g. pins/screws /rods [employer]i [employer] Description:Device Manufactu rer - Nori. Device Status Text - HARDWARE-33038. 6.5 Saniya Screw-16mm Thread 65 - Amaral [id number] Implanted:Qty: 1 on 01/02/2004 Explanted:Qty: 1 on 05/23/2023 by Vel Vinson M.D., M.B.A. at [facility] Hardware e.g. pins/screws /rods Depuy Synthes Description:Device Manufactu rer - Synthes. Device Status Text - HARDWARE-72051. Implex-Shell Hedro 54mm - Amaral [id number] Implanted:Qty: 1 on 02/03/2009 Explanted:Qty: 1 on 05/23/2023 by Vel Vinson M.D., M.B.A. at [facility] Hip Implant Other/Legacy - See Implant Description Nori [employer] Description:Device Manufactu rer - Nori. Body Location - Other. Right. Device Status Text - HIP IMP-[id number]. [place]-Stem [place] 8 Hi - Amaral [id number] Implanted:Qty: 1 on 02/03/2009 Explanted:Qty: 1 on 05/23/2023 by Vel Vinson M.D., M.B.A. at [facility] Hip Implant Other/Legacy - See Implant Description [employer] Description:Device Manufactu rer - J [employer]. Body Location - Other. Right. Device Status Text - HIP IMP-639110. Nori Liner 0 Degree 32 X 54m - Amaral [id number] Implanted:Qty: 1 on 02/03/2009 Explanted:Qty: 1 on 05/23/2023 by Vel Vinson M.D., M.B.A. at [facility] Hip Implant Other/Legacy - See Implant Description Nori Biomet Description:Device Manufactu rer - Nori. Body Location - Other. Right. Device Status Text - HIP IMP-[id number]. Dep. Head Prodigy 32 + 1.0 - Amaral [id number] Implanted:Qty: 1 on 02/03/2009 Explanted:Qty: 1 on 05/23/2023 by Vel Vinson M.D., M.B.A. at [facility] Hip Implant Other/Legacy - See Implant Description [employer] Description:Device Manufactu rer - J & J Ortho. Body Location - Other. Right. Device Status Text - HIP IMP-832785. Procedures Procedure Name Priority Date/Time Associated Diagnosis [...] ALBUMIN, RANDOM, U Routine 03/10/2023 11:30 AM INDUSTRIAL SALES REPRESENTATIVE Diabetes Mellitus Type 2 Ulcer Foot Hyperglycemic [...] normal distal ICA in accordance with [place] Symptomatic Carotid Endarterectomy Trial (NASCET). Procedure Note [...] the ICA. Velocities in the stent of iyuynkekq989rv/sec with mild narrowing of the stent seen [...] left ICA. Velocities in the stent of ccvgpurqv308pa/sec with mild narrowing of the stent seen [...] CDT Storm Nicole M.D. LAB BLOOD ADD-ON [facility] [address] [place] [address], [facility] 200 [place] [address] * (ABNORMAL) Sedimentation Rate (08/25/2023 8:11 AM CDT) Sedimentation Rate, B 27(H) 2 - 20 mm/h 08/25/2023 10:12 AM CDT DTL Blood (Blood, Venous) 08/25/2023 8:11 AM CDT 08/25/2023 8:51 AM CDT Storm Nicole M.D. LAB BLOOD ADD-ON Performing Organization Address City/[facility]/ZIP Co de Phone Number [facility] [address] [place] [address], [facility] DTL [facility] [address] [place] [address] * (ABNORMAL) CBC with Differential, Blood (08/25/2023 8:11 AM CDT) Pathologist [facility] Hemoglobin 11.9(L) 13.2 - 16.6 g/dL 08/25/2023 [...] CDT Storm Nicole M.D. LAB BLOOD ADD-ON [facility] [address] [place] [address], [facility] 200 [place] [address] [facility] [address] [place] [address] * CRP (C-Reactive Protein) (08/25/2023 8:11 AM CDT) C-Reactive Protein (CRP), S 3.2 <5.0 mg/L 08/25/2023 9:16 AM CDT DTL Blood (Blood, Venous) 08/25/2023 8:11 AM CDT 08/25/2023 8:55 AM CDT Storm Nicole M.D. LAB BLOOD ADD-ON Performing Organization Address [facility] Co de Phone Number [facility] [address] [place] [address], [facility] 200 [place] [address] * Creatinine with Estimated GFR (08/25/2023 8:11 AM CDT) Creatinine 1.06 0.74 - 1.35 mg/dL 08/25/2023 9:16 AM CDT DTL Estimated GFR (eGFR) 81 >=60 mL/min/BSA 08/25/2023 9:16 AM CDT DTL Comment: Estimated GFR calculated using the 2020 CKD_EPI creatinine equation. Blood (Blood, Venous) 08/25/2023 8:11 AM CDT 08/25/2023 8:55 AM CDT Storm Nicole M.D. LAB BLOOD ADD-ON [facility] [address] [place] [address], [facility] [address] [place] [address] * DX Hip And Pelvis Right 2-3 [...] * Albumin, Random, Urine (03/10/2023 11:30 AM INDUSTRIAL SALES REPRESENTATIVE) Microalbumin <12.0 mg/L 03/10/2023 11:54 AM INDUSTRIAL SALES REPRESENTATIVE [facility] Comment:If clinically indica faviola, contact the lab for additional testing. Creatinine 112 mg/dL 03/10/2023 11:54 AM INDUSTRIAL SALES REPRESENTATIVE [facility] Albumin/Creatinine Ratio <11 <17 mg/g 03/10/2023 11:54 AM INDUSTRIAL SALES REPRESENTATIVE [facility] Comment: This ratio may not correspond with the reference range because one or both of the values used to calculate the ratio was above or below the quantification limits. Urine (Urine, Midstream) 03/10/2023 11:30 AM INDUSTRIAL SALES REPRESENTATIVE 03/10/2023 11:30 AM INDUSTRIAL SALES REPRESENTATIVE Doug Lima M.D. LAB URINE ORDERABLES [facility] [address] [place] [address], [place] [facility] [place] [facility] [place] [address] [phone] from Last 3 Months or Most Recently Relevant to Health Maintenance Advance Directives For more information, please contact: [phone] * Full Code (Latest Code Status on [...] Due to: Patient not available Care Teams Roll Up Operator Relationship Specialty Start Date End Date Elsewhere, Pcp PCP - General Internal Medicine 10/03/23
--- OUTSIDE RECORDS SUMMARY | 2023-11-08 08:13 | XMS_ITS | Encounter Summary ---
Author Organization [facility] Address [address] [place] [address] Care Team Providers Care Business Employment Specialist Name Role Phone Elsewhere, Pcp Primary Care Provider Unavailabl e Encounter Details Date Type Department Care Team (Late st Contact Info) Description 10/21/2023 Clinical Communication Department of Orthopedic Surgery in [place], [place] [address] [place] [phone] Vel Vnison M.D., M.B.A. [address] [place] [phone] Social History Tobacco Use Types Packs/Day Years Used Date Smoking Tobacco: Never Passive Smoke Exposure: Never Smokeless Tobacco: Never Alcohol Use Standard Drinks/Week Comments Never 2 (1 standard drink = 0.6 oz pur e alcohol) [facility] Utilities Answer Date Recorded In the past 12 months has [facility] [employer], gas, oil, or water [employer] threatened to shut off services in your [...] (Latest Contact Info) Description 01/02/2024 11:30 AM FMD TEACHER Clinical Communication Virtual Review in [place], [place] [address] [place] [phone] 01/05/2024 9:20 AM FMD TEACHER Lab Department of Infusion Therapy in [place], [place] [address] [place] [phone] Vel Vinson M.D., M.B.A. [address] [place] [phone] 01/05/2024 10:15 AM FMD TEACHER Appointment Department of Radiology, [facility], in [place], [place] [address] [place] [phone] Vel Vinson M.D., M.B.A. [address] [place] [phone] 01/05/2024 10:45 AM FMD TEACHER Comprehensive Visit Section of Infectious Diseases in [place], [place] [address] [place] [phone] Maddy Bingham P.A.-C. [address] [place] [phone] 01/05/2024 11:15 AM FMD TEACHER Office Visit Department of Orthopedic Surgery in [place], [place] [address] [place] [phone] Vel Vinson M.D., M.B.A. [address] [place] [phone] 01/06/2024 Hospital Encounter [facility] 02 4 AM ADMIT [address] [place] [phone] Vel Vinson M.D., M.B.A. [address] [place] [phone] Scheduled Procedures Name Priority Associated Diagnoses Date/Ti me ARTHROPLASTY REVISION FEMORAL+ACETABULAR HIP Infection Total Hip Arthroplasty Subsequent Right documented as of this encounter Visit Diagnoses Diagnosis Infection 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 Total Hip Arthroplasty Subsequent Right- Primary documented in this encounter Care Teams Business Employment Specialist Relationship Specialty Start Date End Date Elsewhere, Pcp PCP - General Internal Medicine 10/03/23 documented as of this encounter
--- OUTSIDE RECORDS SUMMARY | 2023-11-08 08:13 | XMS_ITS | Encounter Summary ---
Author Organization [facility] Address [address] [place] [address] Care Team Providers Care Chief Medical Officer Name Role Phone Doug Lima M.D. Primary Care Provider + [phone] Encounter Details Date Type Department Care Team (Late st Contact Info) Description 10/01/2023 Abstract [place], [place] [address] [place] [address] Provider, Historical Social History Tobacco Use Types Packs/Day Years Used Date Smoking Tobacco: Never Passive Smoke Exposure: Never Smokeless Tobacco: Never Alcohol Use Standard Drinks/Week Comments Never 2 (1 standard drink = 0.6 oz pur e alcohol) [facility] Utilities Answer Date Recorded In the past 12 months has e [employer], gas, oil, or water [employer] threatened to shut off services in your [...] (Latest Contact Info) Description 01/02/2024 11:30 AM EDUCATIONAL DIAGNOSTICIAN Clinical Communication Virtual Review in [place], [place] 200 [place] [address] 01/05/2024 9:20 AM EDUCATIONAL DIAGNOSTICIAN Lab Department of Infusion Therapy in [address] [phone] Vel Vinson M.D., M.B.A. [address] [place] [phone] 01/05/2024 10:15 AM EDUCATIONAL DIAGNOSTICIAN Appointment Department of Radiology, [facility], in [place], [place] [address] [place] [phone] Vel Vinson M.D., M.B.A. [address] [place] [phone] 01/05/2024 10:45 AM EDUCATIONAL DIAGNOSTICIAN Comprehensive Visit Section of Infectious Diseases in [place], [place] [address] [place] [phone] Maddy Bingham P.A.-C. [address] [place] [phone] 01/05/2024 11:15 AM EDUCATIONAL DIAGNOSTICIAN Office Visit Department of Orthopedic Surgery in [place], [place] [address] [place] [phone] Vel Vinson M.D., M.B.A. [address] [place] [phone] 01/06/2024 Hospital Encounter [facility] 02 4 AM ADMIT [address] [place] [phone] Vel Vinson M.D., M.B.A. [address] [place] [phone] Scheduled Procedures Name Priority Associated Diagnoses Date/Ti me ARTHROPLASTY REVISION FEMORAL+ACETABULAR HIP Infection Total Hip Arthroplasty Subsequent Right documented as of this encounter Visit Diagnoses Not on filedocumented in this encounter Care Teams Chief Medical Officer Relationship Specialty Start Date End Date Doug Lima M.D. [address] [place] [phone] PCP - General Family Medicine 01/28/17 10/02/23 documented as of this encounter
--- OUTSIDE RECORDS SUMMARY | 2023-11-08 08:13 | XMS_ITS | Encounter Summary ---
Author Organization [facility] Address [address] [place] [phone] Care Team Providers Care Rn Womens Health Name Role Phone Elsewhere, Pcp Primary Care Provider Unavailabl e Reason for Referral * Outpatient (Routine) - Authorized Specialty Diagnoses / Procedures Referred By Tammi t Referred To Contact Neurology Balbir Maradiaga M.D. [address] [place] [phone] [facility] Referral ID Status Reason Start Date Expiration Date V isits Requested Visits Authorized [id number] Authorized 10/03/2023 04/03/2025 1 1 Scheduling Instructions Please schedule for after electroencephalogram in May of 2024 * Outpatient (Routine) - Authorized Specialty Diagnoses / Procedures Referred By Tammi t Referred To Contact Diagnoses Seizure (HCC) Procedures EEG routine - awake and sleep Balbir Maradiaga M.D. [address] [place] [phone] [facility] Referral ID Status Reason Start Date Expiration Date V isits Requested Visits Authorized [id number] Authorized 10/03/2023 10/02/2024 1 1 Reason for Visit * Outpatient (Routine) - Closed Specialty Diagnoses / Procedures Referred By Contac t Referred To Contact Neurology Diagnoses Stroke (HCC) Veronica Hill M.D., M.S. [address] [place] [phone] [facility] Referral ID Status Reason Start Date Expiration Date Visits Re quested Visits Authorized [id number] Closed 06/25/2023 12/24/2024 1 1 Encounter Details Date Type Department Care Team (Latest Contact Info) Description 10/03/2023 1:00 PM CDT Comprehensive Visit Department of Neurology in [place], [place] [address] [place] [phone] Balbir Maradiaga M.D. [address] [place] [phone] Stroke Cerebrovascular Accident Personal History (Primary Dx); Seizure (HCC); Stenosis Carotid Artery Left Social History Tobacco Use Types Packs/Day Years Used Date Smoking Tobacco: Never Passive Smoke Exposure: Never Smokeless Tobacco: Never Alcohol Use Standard Drinks/Week Comments Never 2 (1 standard drink = 0.6 oz pur e alcohol) [facility] Utilities Answer Date Recorded In the past 12 months has [employer], gas, oil, or water [employer] threatened to shut off services in your [...] h is sister, Lor, sister Annamaria, and gzxbqyc-to-ujy, Ashutosh who help provide co- lateral history. Bennettarged from the hospital to a intermediate. He continues to work with physical therapy [...] proprioception on the right hemibody. Noneglect. Coordination: Dbsyky-dz-fehu and onol-dt-cdcr testing is normal on the left. ASSESSMENT [...] This patient was well known to [facility], he was a [...] stroke-like symptoms. He was currently at a pen[facility] facility receiving therapies for stroke recovery. Antithrombotics [...] global yet motor predominant aphasia that is ldup-sq-pnodusdb and a right hemiparesis with some movement [...] (Latest Contact Info) Description 01/02/2024 11:30 AM TREASURY REPRESENTATIVE Clinical Communication Virtual Review in [place], [place] 200 [place] [address] 01/05/2024 9:20 AM TREASURY REPRESENTATIVE Lab Department of Infusion Therapy in [place], [place] [address] [place] [phone] Vel Vinson M.D., M.B.A. [address] [place] [phone] 01/05/2024 10:15 AM TREASURY REPRESENTATIVE Appointment Department of Radiology, [facility], in [place], [place] [address] [place] [address] Vel Vinson M.D., M.B.A. [address] [place] [phone] 01/05/2024 10:45 AM TREASURY REPRESENTATIVE Comprehensive Visit Section of Infectious Diseases in [place], [place] [address] [place] [phone] Maddy Bingham P.A.-C. [address] [place] [phone] 01/05/2024 11:15 AM TREASURY REPRESENTATIVE Office Visit Department of Orthopedic Surgery in [place], [place] [address] [place] [address] Vel Vinson M.D., M.B.A. [address] [place] [phone] 01/06/2024 Hospital Encounter RST ROEI 02 4 AM ADMIT [address] [place] [phone] Vel Vinson M.D., M.B.A. [address] [place] [phone] Scheduled Orders Name Type Priority Associated Diagnoses [...] Left documented in this encounter Care Teams Rn Womens Health Relationship Specialty Start Date End Date Elsewhere, Pcp PCP - General Internal Medicine 10/03/23 documented as of this encounter
--- OUTSIDE RECORDS SUMMARY | 2023-11-08 08:13 | XMS_ITS | Encounter Summary ---
Author Organization [facility] Address [address] [place] [address] Care Team Providers Care Insulation Mechanic Name Role Phone Doug Lima M.D. Primary Care Provider + [phone] Encounter Details Date Type Department Care Team (Latest Contact Info) Description 09/24/2023 2:45 PM CDT Clinical Communication Virtual Review in [place], [place] 200 [place] [phone] Social History Tobacco Use Types Packs/Day Years Used Date Smoking Tobacco: Never Passive Smoke Exposure: Never Smokeless Tobacco: Never Tobacco Cessation:Counseling Given: Not Answered Alcohol Use Standard Drinks/Week Comments Never 2 (1 standard drink = 0.6 oz pur e alcohol) [facility] Utilities Answer Date Recorded In the past 12 months has e [employer], gas, oil, or water [employer] threatened to shut off services in your [...] (Latest Contact Info) Description 01/02/2024 11:30 AM GLASSIE Clinical Communication Virtual Review in [place], [place] [address] [place] [phone] 01/05/2024 9:20 AM GLASSIE Lab Department of Infusion Therapy in [place], [place] [address] [place] [address] Vel Vinson M.D., M.B.A. [address] [place] [phone] 01/05/2024 10:15 AM GLASSIE Appointment Department of Radiology, [facility], in [place], [place] [address] [place] [phone] Vel Vinson M.D., M.B.A. [address] [place] [phone] 01/05/2024 10:45 AM GLASSIE Comprehensive Visit Section of Infectious Diseases in [place], [place] [address] [place] [phone] Maddy Bingham P.A.-C. [address] [place] [phone] 01/05/2024 11:15 AM GLASSIE Office Visit Department of Orthopedic Surgery in [place], [place] [address] [place] [phone] Vel Vinson M.D., M.B.A. [address] [place] [phone] 01/06/2024 Hospital Encounter RST ROEI 02 4 AM ADMIT [address] [place] [phone] Vel Vinson M.D., M.B.A. [address] [place] [phone] Scheduled Procedures Name Priority Associated Diagnoses Date/Ti me ARTHROPLASTY REVISION FEMORAL+ACETABULAR HIP Infection Total Hip Arthroplasty Subsequent Right documented as of this encounter Visit Diagnoses Not on filedocumented in this encounter Care Teams Insulation Mechanic Relationship Specialty Start Date End Date Doug Lima [facility]. [facility] [place] [phone] PCP - General Family Medicine 01/28/17 10/02/23 documented as of this encounter
--- OUTSIDE RECORDS SUMMARY | 2023-11-08 08:13 | XMS_ITS | Encounter Summary ---
Author Organization [facility] Address [address] [place] [address] Care Team Providers Care Traffic Analysis Technician Name Role Phone Doug Lima M.D. Primary Care Provider + [phone] Encounter Details Date Type Department Care Team ([facility] st Contact Info) Description 09/08/2023 Orders Only Section of Infectious Diseases in [place], [place] [address] [place] [phone] Storm Nicole M.D. 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) Social History Tobacco Use Types Packs/Day Years Used Date Smoking Tobacco: Never Passive Smoke Exposure: Never Smokeless Tobacco: Never Alcohol Use Standard Drinks/Week Comments Never 2 (1 standard drink = 0.6 oz pur e alcohol) [facility] Utilities Answer Date Recorded In the past 12 months has [employer], oil, or water [employer] threatened to shut off services in your [...] Contact Info) Description 01/02/2024 11:30 AM SENIOR ACCOUNTING SPECIALIST Clinical Communication Virtual Review in [place], [place] [address] [place] [address] 01/05/2024 9:20 AM SENIOR ACCOUNTING SPECIALIST Lab Department of Infusion Therapy in [place], [place] [address] [place] [phone] Vel Vinson M.D., M.B.A. [address] [place] [phone] 01/05/2024 10:15 AM SENIOR ACCOUNTING SPECIALIST Appointment Department of Radiology, [facility], in [place], [place] [address] [place] [phone] Vel Vinson M.D., M.B.A. [address] [place] [phone] 01/05/2024 10:45 AM SENIOR ACCOUNTING SPECIALIST Comprehensive Visit Section of Infectious Diseases in [place], [place] [address] [place] [phone] Maddy Bingham P.A.-C. [address] [place] [phone] 01/05/2024 11:15 AM SENIOR ACCOUNTING SPECIALIST Office Visit Department of Orthopedic Surgery in [place], [place] [address] [place] [phone] Vel Vinson M.D., M.B.A. [address] [place] [phone] 01/06/2024 Hospital Encounter RST ROEI 02 4 AM ADMIT [address] [place] [phone] Vel Vinson M.D., M.B.A. [address] [place] [phone] Scheduled Orders Name Type Priority Associated Diagnoses [...] Primary documented in this encounter Care Teams Traffic Analysis Technician Relationship Specialty Start Date End Date Doug Lima M.D. [address] [place] [phone] PCP - General Family Medicine 01/28/17 10/02/23 documented as of this encounter
--- OUTSIDE RECORDS SUMMARY | 2023-11-08 08:13 | XMS_ITS | Encounter Summary ---
Author Organization [facility] Address [address] [place] [address] Care Team Providers Care Car Jockey Name Role Phone Elsewhere, Pcp Primary Care [...] has e electric, gas, oil, or water [email or web address] threatened to shut off services in your [...] (Latest Contact Info) Description 01/02/2024 11:30 AM FOOD MOBILE DRIVER Clinical Communication Virtual Review in [place], [place] 200 [place] [address] 01/05/2024 9:20 AM FOOD MOBILE DRIVER Lab Department of Infusion Therapy in [place], [place] [address] [place] [phone] Vel Vinson M.D., M.B.A. [address] [place] [phone] 01/05/2024 10:15 AM FOOD MOBILE DRIVER Appointment Department of Radiology, [facility], in [place], [place] [address] [place] [phone] Vel Vinson M.D., M.B.A. [address] [place] [phone] 01/05/2024 10:45 AM FOOD MOBILE DRIVER Comprehensive Visit Section of Infectious Diseases in [place], [place] [address] [place] [phone] Maddy Bingham P.A.-C. [address] [place] [phone] 01/05/2024 11:15 AM FOOD MOBILE DRIVER Office Visit Department of Orthopedic Surgery in [place], [place] [address] [place] [phone] Vel Vinson M.D., M.B.A. [address] [place] [phone] 01/06/2024 Hospital Encounter RST ROEI 02 4 AM ADMIT [address] [place] [phone] Vel Vinson M.D., M.B.A. [address] [place] [phone] Scheduled Procedures Name Priority Associated Diagnoses Date/Ti me ARTHROPLASTY REVISION FEMORAL+ACETABULAR HIP Infection Total Hip Arthroplasty Subsequent Right documented as of this encounter Visit Diagnoses Not on filedocumented in this encounter Care Teams Car Jockey Relationship Specialty Start Date End Date Elsewhere, Pcp PCP - General Internal Medicine 10/03/23 documented as of this encounter
--- OUTSIDE RECORDS SUMMARY | 2023-11-08 08:14 | XMS_ITS | Encounter Summary ---
Author Organization [facility] Address 200 [place] [address] Care Team Providers Care Strategic Planning Manager Name Role Phone Doug Lima M.D. Primary Care Provider + [phone] Reason for Visit * Outpatient (Routine) - Closed Specialty Diagnoses / Procedures Referred By Contac t Referred To Contact Infectious Diseases Diagnoses Infection Total Hip Arthroplasty Subsequent Right Sylvester Robb P.A.-C. 200 [place] [address] [facility] Referral ID Status Reason Start Date Expiration Date Visits Re quested Visits Authorized [id number] Closed 05/27/2023 11/25/2024 1 1 Encounter Details Date Type Department Care Team (Latest Contact Info) Description 08/25/2023 9:00 AM CDT Comprehensive Visit Section of Infectious Diseases in [place], [place] 200 [place] [phone] Sylvester Robb P.A.-C. 200 [place] [phone] Storm Nicole M.D. 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 Birthdate: 1965 Sex: male Address: [address] [place] [phone] Referring Provider: Sylvester Robb P.A.-C. REASON FOR [...] for convenience === June 24, 2023 Ortho [facility] service pager at [phone] is following Estevan Lester for chronic right [...] his hypotension. Neurology was reengaged in the services account manager of 05/23 due to new global aphasia [...] daily for 90 days, then switch to [id number] twice daily indefinitely as monotherapy. If patient [...] 25, 2023 The patient currently staying at [address] [place] [address] contact information under discussion he stateshe is [...] daily. 30 test 0 blood-glucose meter ([employer] [place]) kit Use as instructed 1 each 0 [...] flash glucose scanning reader (FreeStyle Jessica 2 [place]) misc 1 each (1 Device total) continuously.1 [...] Selected Services Address Phone Fax Patient Preferred [facility] [address] [facility] [address] [phone] PLAN Continue to observe off antimicrobials Follow-up [...] Spent 35 minutes in total time both ggbp-bw-lvih and non ciqn-uz-myyd documented in this encounter Plan of Treatment Upcoming Encounters Date Type Department Care Team (Latest Contact Info) Description 01/02/2024 11:30 AM PUBLIC STENOGRAPHER Clinical Communication Virtual Review in [place], [place] 200 [place] [phone] 01/05/2024 9:20 AM PUBLIC STENOGRAPHER Lab Department of Infusion Therapy in [place], [place] [address] [place] [phone] Vel Vinson M.D., M.B.A. [address] [place] [phone] 01/05/2024 10:15 AM PUBLIC STENOGRAPHER Appointment Department of Radiology, [facility], in [place], [place] [address] [place] [phone] Vel Vinson M.D., M.B.A. [address] [place] [phone] 01/05/2024 10:45 AM PUBLIC STENOGRAPHER Comprehensive Visit Section of Infectious Diseases in [address] [phone] Maddy Bingham P.A.-C. [address] [place] [phone] 01/05/2024 11:15 AM PUBLIC STENOGRAPHER Office Visit Department of Orthopedic Surgery in [address] [phone] Vel Vinson M.D., M.B.A. [address] [place] [phone] 01/06/2024 Hospital Encounter RST ROEI 02 4 AM ADMIT [address] [place] [phone] Vel Vinson M.D., M.B.A. [address] [place] [phone] Scheduled Procedures Name Priority Associated Diagnoses Date/Ti [...] Storm Nicole M.D. LAB BLOOD ADD-ON [facility] [address] [place] [address], [facility] [address] [place] [address] * Creatinine with Estimated GFR (08/25/2023 8:11 AM CDT) Creatinine 1.06 0.74 - 1.35 mg/dL 08/25/2023 9:16 AM CDT DTL Estimated GFR (eGFR) 81 >=60 mL/min/BSA 08/25/2023 9:16 AM CDT DTL Comment: Estimated GFR calculated using the 2020 CKD_EPI creatinine equation. Blood (Blood, Venous) 08/25/2023 8:11 AM CDT 08/25/2023 8:55 AM CDT Storm Nicole M.D. LAB BLOOD ADD-ON [facility] [address] [place] [address], [facility] 200 [place] [address] * CRP (C-Reactive Protein) (08/25/2023 8:11 AM CDT) C-Reactive Protein (CRP), S 3.2 <5.0 mg/L 08/25/2023 9:16 AM CDT DTL Blood (Blood, Venous) 08/25/2023 8:11 AM CDT 08/25/2023 8:55 AM CDT Storm Nicole M.D. LAB BLOOD ADD-ON Performing Organization Address City/[facility]/ZIP Co de Phone Number [facility] [address] [place] [address], [facility] 200 [place] [address] * (ABNORMAL) Sedimentation Rate (08/25/2023 8:11 AM CDT) Pathologist [facility] Sedimentation Rate, B 27(H) 2 - 20 mm/h 08/25/2023 10:12 AM CDT DTL Blood (Blood, Venous) 08/25/2023 8:11 AM CDT 08/25/2023 8:51 AM CDT Storm Nicole M.D. LAB BLOOD ADD-ON [facility] [address] [place] [address], [facility] [address] [place] [address] * (ABNORMAL) CBC with Differential, Blood (08/25/2023 8:11 AM CDT) [facility] Hemoglobin 11.9(L) 13.2 - 16.6 g/dL 08/25/2023 [...] - 6.45 x10(9)/L 08/25/2023 9:31 AM CDT [facility] Lymphocytes 1.88 0.95 - 3.07 x10(9)/L 08/25/2023 9:31 AM CDT DTL Monocytes 0.89(H) 0.26 - 0.81 x10(9)/L 08/25/2023 9:31 AM CDT DTL Eosinophils 0.72(H) 0.03 - 0.48 x10(9)/L 08/25/2023 9:31 AM CDT DTL Basophils 0.10(H) 0.01 - 0.08 x10(9)/L 08/25/2023 9:31 AM CDT DTL Blood (Blood, Venous) 08/25/2023 8:11 AM CDT 08/25/2023 8:51 AM CDT Storm Nicole M.D. LAB BLOOD ADD-ON [facility] [address] [place] [address], [facility] [address] [place] [address] [facility] [address] [place] [address] documented in this encounter Visit Diagnoses Diagnosis Infection Total Hip Arthroplasty Subsequent Right- Primary documented in this encounter Care Teams Strategic Planning Manager Relationship Specialty Start Date End Date Doug Lima M.D. [address] [place] [phone] PCP - General Family Medicine 01/28/17 10/02/23 documented as of this encounter
--- OUTSIDE RECORDS SUMMARY | 2023-11-08 08:14 | XMS_ITS | Encounter Summary ---
Author Organization [facility] Address [address] [place] [address] Care Team Providers Care Sustainability Analyst Name Role Phone oDug Lima M.D. Primary Care Provider + [phone] Reason for Visit * Reason Onset Date Comments Communication 07/01/2023 Encounter Details Date Type Department Care Team (Late st Contact Info) Description 07/01/2023 Clinical Communication Division of Plastic Surgery in [place], [place] [address] [place] [address] Mike Cheng M.D. [address] [place] [phone] Communication Social History Tobacco Use Types Packs/Day Years Used Date Smoking Tobacco: Never Passive Smoke Exposure: Never Smokeless Tobacco: Never Alcohol Use Standard Drinks/Week Comments Never 2 (1 standard drink = 0.6 oz pur e alcohol) [facility] Utilities Answer Date Recorded In the past 12 months has [employer], gas, oil, or water [employer] threatened to shut off services in your [...] your living situation today? I have a [facility] place to live 07/16/2023 Sex and Gender Information Value Date Recorded Sex Assigned at Male 07/26/2022 1:30 PM CDT Gender Identity Male 07/26/2022 1:32 PM CDT Sexual Orientation Straight 07/26/2022 1: 32 PM CDT documented as of this encounter Plan of Treatment Upcoming Encounters Date Type Department Care Team (Latest Contact Info) Description 01/02/2024 11:30 AM WELL SERVICE FLOORPERSON Clinical Communication Virtual Review in [place], [place] [address] [place] [phone] 01/05/2024 9:20 AM WELL SERVICE FLOORPERSON Lab Department of Infusion Therapy in [place], [place] [address] [place] [phone] Vel Vinson M.D., M.B.A. [address] [place] [phone] 01/05/2024 10:15 AM WELL SERVICE FLOORPERSON Appointment Department of Radiology, [facility], in [place], [place] [address] [place] [phone] Vel Vinson M.D., M.B.A. [address] [place] [phone] 01/05/2024 10:45 AM WELL SERVICE FLOORPERSON Comprehensive Visit Section of Infectious Diseases in [address] [phone] Maddy Bingham P.A.-C. [address] [place] [phone] 01/05/2024 11:15 AM WELL SERVICE FLOORPERSON Office Visit Department of Orthopedic Surgery in [address] [phone] Vel Vinson M.D., M.B.A. [address] [place] [phone] 01/06/2024 Hospital Encounter RST ROEI 02 4 AM ADMIT [address] [place] [phone] Vel Vinson M.D., M.B.A. [address] [place] [phone] Scheduled Procedures Name Priority Associated Diagnoses Date/Ti me ARTHROPLASTY REVISION FEMORAL+ACETABULAR HIP Infection Total Hip Arthroplasty Subsequent Right documented as of this encounter Visit Diagnoses Not on filedocumented in this encounter Care Teams Sustainability Analyst Relationship Specialty Start Date End Date Doug Lima M.D. [address] [place] [phone] PCP - General Family Medicine 01/28/17 10/02/23 documented as of this encounter
--- OUTSIDE RECORDS SUMMARY | 2023-11-08 08:14 | XMS_ITS | Encounter Summary ---
Author Organization [facility] Address 200 [place] [address] Care Team Providers Care Worm Packer Name Role Phone Doug Lima M.D. 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 200 [place] [phone] [facility] Referral ID Status Reason Start Date Expiration Date Visits Re quested Visits Authorized [id number] Closed 08/27/2023 08/26/2024 1 1 Encounter Details Date Type Department Care Team (Latest Contact Info) Description 08/28/2023 11:00 AM CDT Internal E-Consult Department of Vascular Medicine in [place], [place] [address] [place] [phone] Gaudencio Escobedo M.D. 200 [place] [phone] Occlusion Carotid Artery Left (Primary Dx); Stenosis Carotid Artery Right; Peripheral Arterial Disease (HCC); Stroke (HCC); Infection Total Hip Arthroplasty Subsequent Right; Hemiplegia Flaccid Dominant Side Right (HCC) Social History Tobacco Use Types Packs/Day Years Used Date Smoking Tobacco: Never Passive Smoke Exposure: Never Smokeless Tobacco: Never Alcohol Use Standard Drinks/Week Comments Never 2 (1 standard drink = 0.6 oz pur e alcohol) [facility] Utilities Answer Date Recorded In the past 12 months has e [employer], gas, oil, or water [employer] threatened to shut off services in your [...] based entirely upon information available in the [facility] electronic medical record. CHIEF COMPLAINT [...] continued after he was dismissed to a prison facility: Hospital dismissal summary (Dr. Hill, 06/25/2023): [...] (Latest Contact Info) Description 01/02/2024 11:30 AM BOGGER OPERATOR Clinical Communication Virtual Review in [place], [place] 200 [place] [phone] 01/05/2024 9:20 AM BOGGER OPERATOR Lab Department of Infusion Therapy in [place], [place] [address] [place] [phone] Vel Vinson M.D., M.B.A. [address] [place] [phone] 01/05/2024 10:15 AM BOGGER OPERATOR Appointment Department of Radiology, [facility], in [place], [place] [address] [place] [phone] Vel Vinson M.D., M.B.A. [address] [place] [phone] 01/05/2024 10:45 AM BOGGER OPERATOR Comprehensive Visit Section of Infectious Diseases in [place], [place] [address] [place] [phone] Maddy Bingham P.A.-C. [address] [place] [phone] 01/05/2024 11:15 AM BOGGER OPERATOR Office Visit Department of Orthopedic Surgery in [place], [place] [address] [place] [phone] Vel Vinson M.D., M.B.A. [address] [place] [phone] 01/06/2024 Hospital Encounter RST ROEI 02 4 AM ADMIT [address] [place] [phone] Vel Vinson M.D., M.B.A. 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 [address] [place] [phone] PCP - General Family Medicine 01/28/17 10/02/23 documented as of this encounter
--- OUTSIDE RECORDS SUMMARY | 2023-11-08 08:14 | XMS_ITS | Encounter Summary ---
Author Organization [facility] Address [address] [place] [address] Care Team Providers Care Para Professional Name Role Phone Doug Lima M.D. Primary Care Provider + [phone] Reason for Visit * Outpatient (Routine) - Closed Specialty Diagnoses / Procedures Referred By Tammi basilio Referred To Contact Orthopedic Surgery Xavi Hicks M.D. [address] [place] [phone] Vel Vinson M.D., M.B.A. [address] [place] [phone] Referral ID Status Reason Start Date Expiration Date Visits Re quested Visits Authorized [id number] Closed 05/16/2023 11/14/2024 1 1 Encounter Details Date Type Department Care Team (Late st Contact Info) Description 08/25/2023 8:15 AM CDT Office Visit Department of Orthopedic Surgery in [place], [place] [address] [place] [phone] Vel Vinson M.D., M.B.A. 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); Stroke (HCC) Social History Tobacco Use Types Packs/Day Years Used Date Smoking Tobacco: Never Passive Smoke Exposure: Never Smokeless Tobacco: Never Alcohol Use Standard Drinks/Week Comments Never 2 (1 standard drink = 0.6 oz pur e alcohol) [facility] Utilities Answer Date Recorded In the [...] (Latest Contact Info) Description 01/02/2024 11:30 AM CONTACT LENS INSPECTOR Clinical Communication Virtual Review in [place], [place] 200 [place] [phone] 01/05/2024 9:20 AM CONTACT LENS INSPECTOR Lab Department of Infusion Therapy in [address] [phone] Vel Vinson M.D., M.B.A. [address] [place] [address] [phone] 01/05/2024 10:15 AM CONTACT LENS INSPECTOR Appointment Department of Radiology, [facility], in [place], [place] [address] [place] [address] [phone] Vel Vinson M.D., M.B.A. [address] [place] [phone] 01/05/2024 10:45 AM CONTACT LENS INSPECTOR Comprehensive Visit Section of Infectious Diseases in [place], [place] [address] [place] [address] [phone] Maddy Bingham P.A.-C. [address] [place] [address] [phone] 01/05/2024 11:15 AM CONTACT LENS INSPECTOR Office Visit Department of Orthopedic Surgery in [place], [place] [address] [place] [phone] Vel Vinson M.D., M.B.A. [address] [place] [phone] 01/06/2024 Hospital Encounter RST ROEI 02 4 AM ADMIT [address] [place] [phone] Vel Vinson M.D., M.B.A. [address] [place] [address] [phone] Scheduled Procedures Name Priority Associated Diagnoses Date/Ti me ARTHROPLASTY REVISION FEMORAL+ACETABULAR HIP Infection Total Hip Arthroplasty Subsequent Right documented as of this encounter Visit Diagnoses Diagnosis Infection Total Hip Arthroplasty Subsequent Right- Primary Stroke (HCC) documented in this encounter Care Teams Para Professional Relationship Specialty Start Date End Date Doug Lima M.D. [address] [place] [phone] PCP - General Family Medicine 01/28/17 10/02/23 documented as of this encounter
--- OUTSIDE RECORDS SUMMARY | 2023-11-08 08:14 | XMS_ITS | Encounter Summary ---
Author Organization [facility] Address 200 [place] [address] Care Team Providers Care Regional Recruiter Name Role Phone Doug Lima M.D. Primary Care Provider + [phone] Reason for Referral * Outpatient (Routine) - Closed Specialty Diagnoses / Procedures Referred By Contac t Referred To Contact Diagnoses Infection Total Hip Arthroplasty Subsequent Right Procedures DX Hip And Pelvis Right 2-3 Views Xavi Hicks M.D. 200 [place] [phone] [facility] Referral ID Status Reason Start Date Expiration Date Visits Re quested Visits Authorized [id number] Closed 05/16/2023 05/15/2024 1 1 Reason for Visit * Outpatient (Routine) - Closed Specialty Diagnoses / Procedures Referred By Contac t Referred To Contact Diagnoses Infection Total Hip Arthroplasty Subsequent Right Procedures DX Hip And Pelvis Right 2-3 Views Xavi Hicks M.D. 200 [place] [phone] [facility] Referral ID Status Reason Start Date Expiration Date Visits Re quested Visits Authorized [id number] Closed 05/16/2023 05/15/2024 1 1 Encounter Details Date Type Department Care Team (Latest Contact Info) Description 08/25/2023 6:43 AM CDT - 08/25/2023 12:10 PM CDT Hospital Encounter Department of Radiology, [facility], in [place], [place] [address] [place] [phone] Xavi Hicks M.D. [address] [place] [phone] Infection Total Hip Arthroplasty Subsequent Right Discharge Disposition: Home or Self Care Social History Tobacco Use Types Packs/Day Years Used Date Smoking Tobacco: Never Passive Smoke Exposure: Never Smokeless Tobacco: Never Alcohol Use Standard Drinks/Week Comments Never 2 (1 standard drink = 0.6 oz pur e alcohol) [facility] Utilities Answer Date Recorded In the past 12 months has e electric, gas, oil, or water [employer] threatened to shut off services in [...] daily. 30 test 07/29/2022 blood-glucose meter ([employer] [place]) kit Use as instructed 1 each 07/29/2022 [...] flash glucose scanning reader (FreeStyle Jessica 2 [place]) miscIndications:Diabete s Mellitus Type 2 Ulcer Foot [...] (Latest Contact Info) Description 01/02/2024 11:30 AM CHIEF CONTROLLER TOWER Clinical Communication Virtual Review in [place], [place] [address] [place] [phone] 01/05/2024 9:20 AM CHIEF CONTROLLER TOWER Lab Department of Infusion Therapy in [place], [place] [address] [place] [phone] Vel Vinson M.D., M.B.A. [address] [place] [phone] 01/05/2024 10:15 AM CHIEF CONTROLLER TOWER Appointment Department of Radiology, [facility], in [place], [place] [address] [place] [phone] Vel Vinson M.D., M.B.A. [address] [place] [phone] 01/05/2024 10:45 AM CHIEF CONTROLLER TOWER Comprehensive Visit Section of Infectious Diseases in [place], [place] [address] [place] [phone] Maddy Bingham P.A.-C. [address] [place] [phone] 01/05/2024 11:15 AM CHIEF CONTROLLER TOWER Office Visit Department of Orthopedic Surgery in [place], [place] [address] [place] [phone] Vel Vinson M.D., M.B.A. [address] [place] [phone] 01/06/2024 Hospital Encounter RST ROEI 02 4 AM ADMIT [address] [place] [phone] Vel Vinson M.D., M.B.A. [address] [place] [phone] Scheduled Procedures Name Priority Associated Diagnoses Date/Ti [...] Right documented in this encounter Care Teams Regional Recruiter Relationship Specialty Start Date End Date Doug Lima M.D. [address] [place] [phone] PCP - General Family Medicine 01/28/17 10/02/23 documented as of this encounter
--- OUTSIDE RECORDS SUMMARY | 2023-11-08 08:14 | XMS_ITS | Encounter Summary ---
Author Organization [facility] Address [address] [place] [address] Care Team Providers Care Vp Marketing Name Role Phone Doug Lima M.D. Primary Care Provider + [phone] Encounter Details Date Type Department Care Team (Late st Contact Info) Description 07/02/2023 Clinical Communication Division of Plastic Surgery in [place], [place] [address] [place] [phone] Mike Cheng M.D. [address] [place] [phone] Social History Tobacco Use Types Packs/Day Years Used Date Smoking Tobacco: Never Passive Smoke Exposure: Never Smokeless Tobacco: Never Alcohol Use Standard Drinks/Week Comments Never 2 (1 standard drink = 0.6 oz pur e alcohol) [facility] Utilities Answer Date Recorded In the past 12 months has [employer] gas, oil, or water [employer] threatened to shut off services in your [...] your living situation today? I have a [facility] place to live 07/16/2023 Sex and Gender Information Value Date Recorded Sex Assigned at Male 07/26/2022 1:30 PM CDT Gender Identity Male 07/26/2022 1:32 PM CDT Sexual Orientation Straight 07/26/2022 1: 32 PM CDT documented as of this encounter Plan of Treatment Upcoming Encounters Date Type Department Care Team (Latest Contact Info) Description 01/02/2024 11:30 AM FIRE SPRINKLER DESIGNER Clinical Communication Virtual Review in [place], [place] [address] [place] [phone] 01/05/2024 9:20 AM FIRE SPRINKLER DESIGNER Lab Department of Infusion Therapy in [place], [place] [address] [place] [phone] Vel Vinson M.D., M.B.A. [address] [place] [phone] 01/05/2024 10:15 AM FIRE SPRINKLER DESIGNER Appointment Department of Radiology, [facility], in [place], [place] [address] [place] [phone] Vel Vinson M.D., M.B.A. [address] [place] [address] [phone] 01/05/2024 10:45 AM FIRE SPRINKLER DESIGNER Comprehensive Visit Section of Infectious Diseases in [place], [place] [address] [place] [phone] Maddy Bingham P.A.-C. [address] [place] [address] [phone] 01/05/2024 11:15 AM FIRE SPRINKLER DESIGNER Office Visit Department of Orthopedic Surgery in [place], [place] [address] [place] [phone] Vel Vinson M.D., M.B.A. [address] [place] [phone] 01/06/2024 Hospital Encounter RST ROEI 02 4 AM ADMIT [address] [place] [phone] Vel Vinson M.D., M.B.A. [address] [place] [phone] Scheduled Procedures Name Priority Associated Diagnoses Date/Ti me ARTHROPLASTY REVISION FEMORAL+ACETABULAR HIP Infection Total Hip Arthroplasty Subsequent Right documented as of this encounter Visit Diagnoses Not on filedocumented in this encounter Care Teams Vp Marketing Relationship Specialty Start Date End Date Doug Lima M.D. [address] [place] [phone] PCP - General Family Medicine 01/28/17 10/02/23 documented as of this encounter
--- OUTSIDE RECORDS SUMMARY | 2023-11-08 08:14 | XMS_ITS | Encounter Summary ---
Author Organization [facility] Address [address] [place] [address] Care Team Providers Care Detasseling Crew Supervisor Name Role Phone Doug Lima M.D. Primary Care Provider + [phone] Reason for Visit * Reason Onset Date Comments Pre-visit Intake 08/20/2023 Encounter Details Date Type Department Care Team (Latest Contact Info) Description 08/20/2023 12:00 PM CDT Clinical Communication Virtual Review in [place], [place] 200 [place] [phone] Pre-visit Intake Social History Tobacco Use Types Packs/Day Years Used Date Smoking Tobacco: Never Passive Smoke Exposure: Never Smokeless Tobacco: Never Alcohol Use Standard Drinks/Week Comments Never 2 (1 standard drink = 0.6 oz pur e alcohol) [facility] Utilities Answer Date Recorded In the past 12 months has e [employer], gas, oil, or water [employer] threatened to shut off services in your [...] (Latest Contact Info) Description 01/02/2024 11:30 AM JOB HONER Clinical Communication Virtual Review in [place], [place] [address] [place] [phone] 01/05/2024 9:20 AM JOB HONER Lab Department of Infusion Therapy in [place], [place] [address] [place] [phone] Vel Vinson M.D., M.B.A. [address] [place] [address] [phone] 01/05/2024 10:15 AM JOB HONER Appointment Department of Radiology, [facility], in [place], [place] [address] [place] [phone] Vel Vinson M.D., M.B.A. [address] [place] [address] [phone] 01/05/2024 10:45 AM JOB HONER Comprehensive Visit Section of Infectious Diseases in [place], [place] [address] [place] [phone] Maddy Bingham P.A.-C. [address] [place] [address] [phone] 01/05/2024 11:15 AM JOB HONER Office Visit Department of Orthopedic Surgery in [place], [place] [address] [place] [phone] Vel Vinson M.D., M.B.A. [address] [place] [address] [phone] 01/06/2024 Hospital Encounter RST ROEI 02 4 AM ADMIT [address] [place] [phone] Vel Vinson M.D., M.B.A. [address] [place] [phone] Scheduled Procedures Name Priority Associated Diagnoses Date/Ti me ARTHROPLASTY REVISION FEMORAL+ACETABULAR HIP Infection Total Hip Arthroplasty Subsequent Right documented as of this encounter Visit Diagnoses Not on filedocumented in this encounter Care Teams Detasseling Crew Supervisor Relationship Specialty Start Date End Date Doug Lima M.D. [address] [place] [phone] PCP - General Family Medicine 01/28/17 10/02/23 documented as of this encounter
--- OUTSIDE RECORDS SUMMARY | 2023-11-08 08:14 | XMS_ITS | Encounter Summary ---
Author Organization [facility] Address [address] [place] [address] Care Team Providers Care District Sales Leader Name Role Phone Doug Lima M.D. Primary Care Provider + [phone] Encounter Details Date Type Department Care Team (Late st Contact Info) Description 08/26/2023 Orders Only [facility] M[facility] [address] [place] [phone] Diabetes Mellitus Type 2 Peripheral Neuropathy (HCC) Social History Tobacco Use Types Packs/Day Years Used Date Smoking Tobacco: Never Passive Smoke Exposure: Never Smokeless Tobacco: Never Alcohol Use Standard Drinks/Week Comments Never 2 (1 standard drink = 0.6 oz pur e alcohol) [facility] Utilities Answer Date Recorded In the past 12 months has e [employer], gas, oil, or water [employer] threatened to shut off services in your [...] (Latest Contact Info) Description 01/02/2024 11:30 AM CARDIAC NURSE Clinical Communication Virtual Review in [place], [place] [address] [place] [phone] 01/05/2024 9:20 AM CARDIAC NURSE Lab Department of Infusion Therapy in [place], [place] [address] [place] [phone] Vel Vinson M.D., M.B.A. [address] [place] [phone] 01/05/2024 10:15 AM CARDIAC NURSE Appointment Department of Radiology, [facility], in [place], [place] [address] [place] [address] [phone] Vel Vinson M.D., M.B.A. [address] [place] [phone] 01/05/2024 10:45 AM CARDIAC NURSE Comprehensive Visit Section of Infectious Diseases in [place], [place] [address] [place] [phone] Maddy Bingham P.A.-C. [address] [place] [phone] 01/05/2024 11:15 AM CARDIAC NURSE Office Visit Department of Orthopedic Surgery in [place], [place] [address] [place] [phone] Vel Vinson M.D., M.B.A. [address] [place] [phone] 01/06/2024 Hospital Encounter RST ROEI 02 4 AM ADMIT [address] [place] [phone] Vel Vinson M.D., M.B.A. [address] [place] [phone] Scheduled Procedures Name Priority Associated Diagnoses Date/Ti me ARTHROPLASTY REVISION FEMORAL+ACETABULAR HIP Infection Total Hip Arthroplasty Subsequent Right documented as of this encounter Visit Diagnoses Diagnosis Diabetes Mellitus Type 2 Peripheral Neuropathy (HCC) documented in this encounter Care Teams District Sales Leader Relationship Specialty Start Date End Date Doug Lima M.D. [address] [phone] PCP - General Family Medicine 01/28/17 10/02/23 documented as of this encounter
--- OUTSIDE RECORDS SUMMARY | 2023-11-08 08:14 | XMS_ITS ---
Author Organization [facility] Address [address] [place] [address] Care Team Providers Care Glue Mill Operator Name Role Phone Elsewhere, Pcp Primary Care Provider Unavailabl e OPAT Status:Pending (Paused) Start date:05/27/2023 Enrollment date:06/06/2023 Related service episodes:Adult OPAT Service Episode (Declined) Continued Care and Services Coordination
--- OUTSIDE RECORDS SUMMARY | 2023-11-08 08:14 | XMS_ITS | Encounter Summary ---
Author Organization [facility] Address [address] [place] [address] Care Team Providers Care Regional Sales Associate Name Role Phone Doug Lima M.D. Primary Care Provider + [phone] Encounter Details Date Type Department Care Team (Late st Contact Info) Description 08/27/2023 Clinical Communication Department of Neurologic Surgery in [place], [place] [address] [place] [address] Fantasma Butt M.D. [address] [place] [phone] Social History Tobacco Use Types Packs/Day Years Used Date Smoking Tobacco: Never Passive Smoke Exposure: Never Smokeless Tobacco: Never Alcohol Use Standard Drinks/Week Comments Never 2 (1 standard drink = 0.6 oz pur e alcohol) [facility] Utilities Answer Date Recorded In the past 12 months has [employer] gas, oil, or water [employer] threatened to shut off services in your [...] (Latest Contact Info) Description 01/02/2024 11:30 AM CREATIVE INTERN Clinical Communication Virtual Review in [address] [phone] 01/05/2024 9:20 AM CREATIVE INTERN Lab Department of Infusion Therapy in [place], [place] [address] [place] [phone] Vel Vinson M.D., M.B.A. [address] [place] [phone] 01/05/2024 10:15 AM CREATIVE INTERN Appointment Department of Radiology, [facility], in [place], [place] [address] [place] [address] [phone] Vel Vinson M.D., M.B.A. [address] [place] [address] [phone] 01/05/2024 10:45 AM CREATIVE INTERN Comprehensive Visit Section of Infectious Diseases in [place], [place] [address] [place] [phone] Maddy Bingham P.A.-C. [address] [place] [phone] 01/05/2024 11:15 AM CREATIVE INTERN Office Visit Department of Orthopedic Surgery in [place], [place] [address] [place] [phone] Vel Vinson M.D., M.B.A. [address] [place] [phone] 01/06/2024 Hospital Encounter RST ROEI 02 4 AM ADMIT [address] [place] [address] [phone] Vel Vinson M.D., M.B.A. [address] [place] [phone] Scheduled Procedures Name Priority Associated Diagnoses Date/Ti me ARTHROPLASTY REVISION FEMORAL+ACETABULAR HIP Infection Total Hip Arthroplasty Subsequent Right documented as of this encounter Visit Diagnoses Not on filedocumented in this encounter Care Teams Regional Sales Associate Relationship Specialty Start Date End Date Doug Lima M.D. [address] [place] [phone] PCP - General Family Medicine 01/28/17 10/02/23 documented as of this encounter
--- OUTSIDE RECORDS SUMMARY | 2023-11-08 08:14 | XMS_ITS | Encounter Summary ---
Author Organization [facility] Address [address] [place] [address] Care Team Providers Care Field Research Assistant Name Role Phone Doug Lima M.D. Primary Care Provider + [phone] Encounter Details Date Type Department Care Team (Late st Contact Info) Description 08/01/2023 Abstract [place], [place] [address] [place] [address] Provider, Historical Social History Tobacco Use Types Packs/Day Years Used Date Smoking Tobacco: Never Passive Smoke Exposure: Never Smokeless Tobacco: Never Alcohol Use Standard Drinks/Week Comments Never 2 (1 standard drink = 0.6 oz pur e alcohol) [facility] Utilities Answer Date Recorded In the past 12 months has e [employer], gas, oil, or water [employer] threatened to shut off services in your [...] your living situation today? I have a [facility] place to live 07/16/2023 Sex and Gender Information Value Date Recorded Sex Assigned at Male 07/26/2022 1:30 PM CDT Gender Identity Male 07/26/2022 1:32 PM CDT Sexual Orientation Straight 07/26/2022 1: 32 PM CDT documented as of this encounter Plan of Treatment Upcoming Encounters Date Type Department Care Team (Latest Contact Info) Description 01/02/2024 11:30 AM TAR HEAT EXCHANGER CLEANER Clinical Communication Virtual Review in [place], [place] [address] [place] [address] 01/05/2024 9:20 AM TAR HEAT EXCHANGER CLEANER Lab Department of Infusion Therapy in [place], [place] [address] [place] [address] Vel Vinson M.D., M.B.A. [address] [place] [phone] 01/05/2024 10:15 AM TAR HEAT EXCHANGER CLEANER Appointment Department of Radiology, [facility], in [place], [place] [address] [place] [phone] Vel Vinson M.D., M.B.A. [address] [place] [phone] 01/05/2024 10:45 AM TAR HEAT EXCHANGER CLEANER Comprehensive Visit Section of Infectious Diseases in [place], [place] [address] [place] [phone] Maddy Bingham P.A.-C. [address] [place] [phone] 01/05/2024 11:15 AM TAR HEAT EXCHANGER CLEANER Office Visit Department of Orthopedic Surgery in [place], [place] [address] [place] [phone] Vel Vinson M.D., M.B.A. [address] [place] [phone] 01/06/2024 Hospital Encounter [facility]I 02 4 AM ADMIT [address] [place] [phone] Vel Vinson M.D., M.B.A. [address] [place] [phone] Scheduled Procedures Name Priority Associated Diagnoses Date/Ti me ARTHROPLASTY REVISION FEMORAL+ACETABULAR HIP Infection Total Hip Arthroplasty Subsequent Right documented as of this encounter Visit Diagnoses Not on filedocumented in this encounter Care Teams Field Research Assistant Relationship Specialty Start Date End Date Doug Lima M.D. [address] [place] [phone] PCP - General Family Medicine 01/28/17 10/02/23 documented as of this encounter
--- OUTSIDE RECORDS SUMMARY | 2023-11-08 08:14 | XMS_ITS | Encounter Summary ---
Author Organization [facility] Address [address] [place] [address] Care Team Providers Care Vamp Liner Name Role Phone Doug Lima M.D. Primary Care Provider + [phone] Reason for Referral * Outpatient (Routine) - Closed Specialty Diagnoses / Procedures Referred By Tammi basilio Referred To Contact Diagnoses Stenosis Carotid Artery Bilateral Procedures US Carotid Bilateral Radha Ojeda P.A.-C., M.S. 200 [place] [address] [facility] Referral ID Status Reason Start Date Expiration Date Visits Re quested Visits Authorized [id number] Closed 04/16/2023 04/15/2024 1 1 Reason for Visit * Outpatient (Routine) - Closed Specialty Diagnoses / Procedures Referred By Tammi basilio Referred To Contact Diagnoses Stenosis Carotid Artery Bilateral Procedures US Carotid Radha Lerner P.A.-C., M.S. 200 [place] [address] [facility] Referral ID Status Reason Start Date Expiration Date Visits Re quested Visits Authorized [id number] Closed 04/16/2023 04/15/2024 1 1 Encounter Details Date Type Department Care Team (Latest Contact Info) Description 08/25/2023 12:11 PM CDT - 08/25/2023 11:59 PM CDT Hospital Encounter Department of Radiology, [facility] in [place], [place] [address] [place] [address] Radha Ojeda P.A.-C., [place] [phone] Stenosis Carotid Artery Bilateral Discharge Disposition: Home or Self Care Social History Tobacco Use Types Packs/Day Years Used Date Smoking Tobacco: Never Passive Smoke Exposure: Never Smokeless Tobacco: Never Alcohol Use Standard Drinks/Week Comments Never 2 (1 standard drink = 0.6 oz pur e alcohol) [facility] Utilities Answer Date Recorded In the past 12 months has [employer], gas, oil, or water [employer] threatened to shut off services in your [...] daily. 30 test 07/29/2022 blood-glucose meter (FreeStyle Latty) kit Use as instructed 1 each 07/29/2022 [...] flash glucose scanning reader (FreeStyle Jessica 2 Hoffman) miscIndications:Diabete s Mellitus Type 2 Ulcer Foot [...] (Latest Contact Info) Description 01/02/2024 11:30 AM TELECOMMUNICATION ENGINEER Clinical Communication Virtual Review in [place], [place] 200 [place] [phone] 01/05/2024 9:20 AM TELECOMMUNICATION ENGINEER Lab Department of Infusion Therapy in [place], [place] [address] [place] [phone] Vel Vinson M.D., M.B.A. [address] [place] [phone] 01/05/2024 10:15 AM TELECOMMUNICATION ENGINEER Appointment Department of Radiology, [facility], in [place], [place] [address] [place] [phone] Vel Vinson M.D., M.B.A. [address] [place] [phone] 01/05/2024 10:45 AM TELECOMMUNICATION ENGINEER Comprehensive Visit Section of Infectious Diseases in [place], [place] [address] [place] [phone] Maddy Bingham P.A.-C. [address] [place] [phone] 01/05/2024 11:15 AM TELECOMMUNICATION ENGINEER Office Visit Department of Orthopedic Surgery in [address] [phone] Vel Vinson M.D., M.B.A. [address] [place] [phone] 01/06/2024 Hospital Encounter [facility]ST ROEI 02 4 AM ADMIT [address] [place] [phone] Vel Vinson M.D., M.B.A. [address] [place] [phone] Scheduled Procedures Name Priority Associated Diagnoses Date/Ti [...] normal distal ICA in accordance with [place] Symptomatic Carotid Endarterectomy Trial (NASCET). Procedure Note [...] the ICA. Velocities in the stent of [id number]/sec with mild narrowing of the stent seen [...] left ICA. Velocities in the stent of [id number]/sec with mild narrowing of the stent seen [...] Bilateral documented in this encounter Care Teams Vamp Liner Relationship Specialty Start Date End Date Doug Lima M.D. [address] [place] [phone] PCP - General Family Medicine 01/28/17 10/02/23 documented as of this encounter
--- OUTSIDE RECORDS SUMMARY | 2023-11-08 08:14 | XMS_ITS | Encounter Summary ---
Author Organization [facility] Address [address] [place] [address] Care Team Providers Care Polishing Machine Operator Helper Name Role Phone Doug Lima M.D. 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 [address] [place] [phone] [facility] Referral ID Status Reason Start Date Expiration Date Visits Re quested Visits Authorized [id number] Closed 08/27/2023 08/26/2024 1 1 Encounter Details Date Type Department Care Team (Late st Contact Info) Description 08/27/2023 Orders Only Department of Neurologic Surgery in [place], [place] [address] [place] [phone] Rosalie Sosa R.N., CNRN [address] [place] [phone] Stenosis Carotid Artery Right (Primary Dx); Occlusion Carotid Artery Left; Peripheral Arterial Disease (HCC); Stroke (HCC); Infection Total Hip Arthroplasty Subsequent Right; Hemiplegia Flaccid Dominant Side Right (HCC) Social History Tobacco Use Types Packs/Day Years Used Date Smoking Tobacco: Never Passive Smoke Exposure: Never Smokeless Tobacco: Never Alcohol Use Standard Drinks/Week Comments Never 2 (1 standard drink = 0.6 oz pur e alcohol) [facility] Utilities Answer Date Recorded In the [...] (Latest Contact Info) Description 01/02/2024 11:30 AM OFFAL ICER POULTRY Clinical Communication Virtual Review in [place], [place] 200 [place] [address] 01/05/2024 9:20 AM OFFAL ICER POULTRY Lab Department of Infusion Therapy in [address] [phone] Vel Vinson M.D., M.B.A. [address] [place] [phone] 01/05/2024 10:15 AM OFFAL ICER POULTRY Appointment Department of Radiology, [facility], in [address] [phone] Vel Vinson M.D., M.B.A. [address] [place] [phone] 01/05/2024 10:45 AM OFFAL ICER POULTRY Comprehensive Visit Section of Infectious Diseases in [address] [phone] Maddy Bingham P.A.-C. [address] [place] [phone] 01/05/2024 11:15 AM OFFAL ICER POULTRY Office Visit Department of Orthopedic Surgery in [address] [phone] Vel Vinson M.D., M.B.A. [address] [place] [address] 01/06/2024 Hospital Encounter [facility]EI 02 4 AM ADMIT [address] [place] [address] Vel Vinson M.D., M.B.A. [address] [place] [phone] Scheduled Procedures Name Priority Associated Diagnoses Date/Ti [...] Primary documented in this encounter Care Teams Polishing Machine Operator Helper Relationship Specialty Start Date End Date Doug Lima M.D. [address] [place] [phone] PCP - General Family Medicine 01/28/17 10/02/23 documented as of this encounter
--- OUTSIDE RECORDS SUMMARY | 2023-11-08 08:14 | XMS_ITS | Encounter Summary ---
Author Organization [facility] Address [address] [place] [address] Care Team Providers Care Day Care Assistant Name Role Phone Doug Lima M.D. Primary Care Provider + [phone] Reason for Referral * Outpatient (Routine) - Authorized Specialty Diagnoses / Procedures Referred By Tammi t Referred To Contact Radiology Fantasma Butt M.D. [address] [place] [phone] Radha Ojeda P.A.-C., M.S. [address] [place] [phone] Referral ID Status Reason Start Date Expiration Date V isits Requested Visits Authorized [id number] Authorized 08/25/2023 02/23/2025 1 1 Scheduling Instructions JONO Rojas - when dr. Butt available. To be scheduled same day as imaging study. 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 [address] [place] [address] [facility] Referral ID Status Reason Start Date Expiration Date V isits Requested Visits Authorized [id number] Authorized 08/25/2023 08/24/2024 1 1 Reason for Visit * Outpatient (Routine) - Closed Specialty Diagnoses / Procedures Referred By Tammi basilio Referred To Contact Neurological Surgery Lachelle Crawford M.D. Lanzino, Giuseppe, M.D. [address] [place] [address] Referral ID Status Reason Start Date Expiration Date Visits Re quested Visits Authorized [id number] Closed 06/25/2023 12/24/2024 1 1 Encounter Details Date Type Department Care Team (Late st Contact Info) Description 08/25/2023 3:00 PM CDT Office Visit Department of Neurologic Surgery in [place], [place] [address] [place] [phone] Fantasma Butt M.D. [address] [place] [phone] Stenosis Carotid Artery Right (Primary Dx); Occlusion Carotid Artery Left Social History Tobacco Use Types Packs/Day Years Used Date Smoking Tobacco: Never Passive Smoke Exposure: Never Smokeless Tobacco: Never Alcohol Use Standard Drinks/Week Comments Never 2 (1 standard drink = 0.6 oz pur e alcohol) [facility] Utilities Answer Date Recorded In the past 12 months has [employer], gas, oil, or water [employer] threatened to shut off services in your [...] (Latest Contact Info) Description 01/02/2024 11:30 AM SKILLED LABOR Clinical Communication Virtual Review in [address] [phone] 01/05/2024 9:20 AM SKILLED LABOR Lab Department of Infusion Therapy in [address] [phone] Vel Vinson M.D., M.B.A. [address] [place] [phone] 01/05/2024 10:15 AM SKILLED LABOR Appointment Department of Radiology, [facility], in [address] [phone] Vel Vinson M.D., M.B.A. [address] [place] [phone] 01/05/2024 10:45 AM SKILLED LABOR Comprehensive Visit Section of Infectious Diseases in [address] [phone] Maddy Bingham P.A.-C. [address] [place] [phone] 01/05/2024 11:15 AM SKILLED LABOR Office Visit Department of Orthopedic Surgery in [place], [place] [address] [place] [address] Vel Vinson M.D., M.B.A. [address] [place] [phone] 01/06/2024 Hospital Encounter [facility]I 02 4 AM ADMIT [address] [place] [address] Vel Vinson M.D., M.B.A. [address] [place] [phone] Scheduled Orders Name Type Priority Associated Diagnoses [...] Left documented in this encounter Care Teams Day Care Assistant Relationship Specialty Start Date End Date Doug Lima M.D. [address] [place] [phone] PCP - General Family Medicine 01/28/17 10/02/23 documented as of this encounter
== END 2023-11-03 06:49 | disposition home or self-care (01) ==
LOC: AMB 11-08 08:10
PROVIDERS: PCP Family Medicine; Visit Provider Student in an Organized Health Care Education/Training Program
DX: K92.2 Gastrointestinal hemorrhage, unspecified (principal)
CPT/HCPCS: A0425; A0427

== ENCOUNTER 2023-11-28 10:20 | Outpatient (REF) | payer OTHER, SELFPAY ==
[2023-11-28 10:44] LABS: Hemoglobin* 9.6 gm/dL (13.5-17.5)
== END 2023-11-28 10:21 | disposition home or self-care (01) ==
LOC: NPINS 10:20
PROVIDERS: PCP Family Medicine; Visit Provider Nurse Practitioner Gerontology
DX: D62 Acute posthemorrhagic anemia (principal)
CPT/HCPCS: 85018

== ENCOUNTER 2023-11-28 13:32 | Outpatient (CLI) | payer OTHER, SELFPAY ==
--- OUTSIDE RECORDS SUMMARY | 2023-12-01 19:51 | XMS_ITS | Clinical Summary ---
Author Organization [employer] [facility] Address [place], [place] [address] Care Team Providers Care City Superintendent Name Role Phone Monty Hernandez MD Primary Care Provider [phone]- [phone] Allergies No known active allergies Medications Medication [...] Encounters Date Type Department Care Team Description 11/21/19 Lab Requisition [facility] [phone] Pauline Mcbride NP 11/15/19 Lab Requisition L CENTRAL [facility] [phone] Pauline Mcbride NP 11/07/19 Lab Requisition [facility] [phone] William Edwards MD 11/03/19 1:45 PM CDT - 11/03/19 2:10 PM CDT Surgery [facility] [address] [place] [address] Gino Kern MD ESOPHAGOGASTRODUODENOSCOPY 11/03/19 7:49 AM CDT - 11/07/19 24 11:20 AM CDT Hospital Encounter [facility] [address] [place] [address] Sierra Salazar MD Block, Sreedhar Arriola MD [facility], Julianne Davidson MD [facility], [facility] Hospitalists Of Gastrointestinal hemorrhage, unspecified gastrointestinal hemorrhage type (Primary Dx); Constipation, unspecified constipation type Discharge Disposition: Group Home Facility 11/03/19 24 Orders Only [facility] Scanner 1 scan: (1-Ord) LAURYS STATION, CT ANGIO ABD PEL GI BLEED, 11/03/2023 10/27/19 Lab Requisition [facility] [phone] Pauline Mcbride NP 09/18/19 24 Lab Requisition [facility] [phone] Pauline Mcbride NP 09/05/19 24 Lab Requisition [facility] [phone] Pauline Mcbride NP 08/26/19 24 Lab Requisition [facility] [phone] William Edwards MD from Last 3 Months [...] Procedure Name Priority Date/Time Associated Diagnosis Comments RED CELL MORPHOLOGY Routine 11/25/2023 7:25 AM CDT Acute posthemorrhagic anemia PLATELET ESTIMATE Routine 11/25/2023 7:25 AM CDT Acute posthemorrhagic anemia MANUAL DIFFERENTIAL Routine 11/25/2023 7:25 AM CDT Acute posthemorrhagic anemia CBC WITH AUTO DIFFERENTIAL Routine 11/24 7:25 AM CDT Acute posthemorrhagic anemia BASIC METABOLIC PANEL Routine 11/25/2023 7:25 AM CDT Type 2 diabetes mellitus without complications (HC) CBC WITH AUTO DIFFERENTIAL Routine 11/24 7:25 AM CDT Acute posthemorrhagic anemia RED CELL MORPHOLOGY Routine 11/11/2023 7:23 AM CDT Anemia, unspecified PLATELET ESTIMATE Routine 11/11/2023 7:23 AM CDT Anemia, unspecified MANUAL DIFFERENTIAL Routine 11/11/2023 7:23 AM CDT Anemia, unspecified CBC WITH AUTO DIFFERENTIAL Routine 11/10 7:23 AM CDT Anemia, unspecified CBC WITH AUTO DIFFERENTIAL Routine 11/10 7:23 AM CDT Anemia, unspecified GLUCOSE METER Timed 11/07/2023 6:57 AM CDT [...] SCAN-CARDIAC STRIP 11/03/2023 1:40 PM CDT ESOPHAGOGASTRODUODENOSCOPY 09/16 /2024 12:35 PM CDT See Md camacho ENDOSCOPY [...] liver transaminase levels HEPATIC FUNCTION PANEL Routine 7:51 AM CDT Abnormal levels of other serum enzymes HEMOGLOBIN A1C Routine 09/02/2023 7:31 AM CDT Abnormal finding of blood chemistry, unspecified Essential (primary) hypertension Anemia, unspecified Type 2 diabetes mellitus without complications (HC) HEPATIC FUNCTION PANEL Routine 7:31 AM CDT Abnormal finding of blood [...] from Last 3 Months Results * (ABNORMAL) CBC WITH AUTO DIFFERENTIAL (11/25/2023 7:25 AM CDT) Only the most recent of3 resultswithin the time period is included. Pathologist [facility] WHITE BLOOD COUNT 6.4 4.5 - 11.0 thou/cu mm 11/25/2023 10:47 AM [facility] RED BLOOD COUNT 3.47(L) 4.30 - 5.90 mil/cu mm 11/25/2023 10:47 AM [facility] HEMOGLOBIN 10.5(L) 13.5 - 17.5 g/dL 11/25/2023 10:47 AM [facility] HEMATOCRIT 32.0(L) 37.0 - 53.0 % 11/25/2023 10:47 AM [facility] MCV 92 80 - 100 fL 11/25/2023 10:47 AM [facility] MCH 30.3 26.0 - 34.0 pg 11/25/2023 10:47 AM [facility] MCHC 32.8 32.0 - 36.0 g/dL 11/25/2023 10:47 AM [facility] RDW 15.4 11.5 - 15.5 % 11/25/2023 10:47 AM [facility] PLATELET COUNT 170 140 - 440 thou/cu mm 11/25/2023 10:47 AM CDT [facility] MPV 10.5 6.5 - 11.0 fL 11/25/2023 10:47 AM CDT [facility] Blood BLOOD SPECIMEN / Unknown Venipuncture / Unknown 11/25/2023 7:25 AM CDT 11/25/2023 9:06 AM CDT Pauline Mcbride NP HEMATOLOGY Performing Organization Address City/[facility]/ZIP Co de Phone Number [facility] [address] [place] [address] * RED CELL MORPHOLOGY (11/25/2023 7:25 AM CDT) Only the most recent of2 resultswithin the time period is included. RBC COMMENT RBC morphology appears normal RBC morphology appears normal, RBC morphology within normal limits for newborns. 11/25/2023 10:47 AM CDT [facility] Blood BLOOD SPECIMEN / Unknown Venipuncture / Unknown 11/25/2023 7:25 AM CDT 11/25/2023 9:06 AM CDT Pauline Mcbride NP HEMATOLOGY Performing Organization Address City/[facility] Co de Phone Number [facility] [address] [place] [address] * PLATELET ESTIMATE (11/25/2023 7:25 AM CDT) Only the most recent of2 resultswithin the time period is included. PLATELET ESTIMATE Adequate Adequate, No estimate 11/25/2023 10:47 AM CDT [facility] Blood BLOOD SPECIMEN / Unknown Venipuncture / Unknown 11/25/2023 7:25 AM CDT 11/25/2023 9:06 AM CDT Pauline Mcbride NP HEMATOLOGY Performing Organization Address City/[facility]/ZIP Co de Phone Number [facility] [address] [place] [address] * (ABNORMAL) MANUAL DIFFERENTIAL (11/25/2023 7:25 AM CDT) Only the most recent of2 resultswithin the time period is included. [facility] % NEUTROPHILS 39.0 % 11/25/2023 10:47 AM T [facility] % LYMPHOCYTES 36.0 % 11/25/2023 10:47 AM [facility] % MONOCYTES 13.0 % 11/25/2023 10:47 AM T [facility] % EOSINOPHILS 11.0 % 11/25/2023 10:47 AM [facility] % BASOPHILS 1.0 % 11/25/2023 10:47 AM [facility] NEUTROPHILS ABSOLUTE 2.5 1.7 - 7.0 thou/cu mm 11/25/2023 10:47 AM [facility] LYMPHOCYTES ABSOLUTE 2.3 0.9 - 2.9 thou/cu mm 11/25/2023 10:47 AM T [facility] MONOCYTES ABSOLUTE 0.8 <0.9 thou/cu mm 11/25/2023 10:47 AM [facility] EOSINOPHILS ABSOLUTE 0.7(H) <0.5 thou/cu mm 11/25/2023 10:47 AM [facility] BASOPHILS ABSOLUTE 0.1 <0.3 thou/cu mm 11/25/2023 10:47 AM [facility] Blood BLOOD SPECIMEN / Unknown Venipuncture / Unknown 11/25/2023 7:25 AM CDT 11/25/2023 9:06 AM CDT Pauline Mcbride NP HEMATOLOGY [facility] [address] [place] [address] * (ABNORMAL) BASIC METABOLIC PANEL (11/25/2023 7:25 AM CDT) Only the most recent of4 resultswithin the time period is included. [facility] SODIUM 140 136 - 145 mmol/L 11/25/2023 9:54 AM [facility] POTASSIUM 4.6 3.5 - 5.1 mmol/L 11/25/2023 9:54 AM [facility] CHLORIDE 103 98 - 107 mmol/L 11/25/2023 9:54 AM [facility] CO2,TOTAL 30(H) 22 - 29 mmol/L 11/25/2023 9:54 AM [facility] ANION GAP 7 5 - 18 11/25/2023 9:54 AM [facility] GLUCOSE 112(H) 70 - 99 mg/dL 11/25/2023 9:54 AM [facility] CALCIUM 9.3 8.6 - 10.0 mg/dL 11/25/2023 9:54 AM [facility] BUN 17 6 - 20 mg/dL 11/25/2023 9:54 AM [facility] CREATININE 0.92 0.70 - 1.20 mg/dL 11/25/2023 9:54 AM [facility] BUN/CREAT RATIO 18 10 - 20 9:54 AM [facility] eGFR >90 >90 mL/min/1.7 3m2 11/25/2023 9:54 AM [facility] Comment:As of 2021, eG FR is calculated by the CKD-EPI creatinine equation without race adjustment. ??eGFR can be influenced by muscle mass, exercise, and diet. ??The reported eGFR is an estimation only and is only applicable if the renal function is stable. Blood BLOOD SPECIMEN / Unknown Venipuncture / Unknown 11/25/2023 7:25 AM CDT 11/25/2023 9:06 AM CDT Pauline Mcbride NP CHEMISTRY [facility] [address] [place] [address] * (ABNORMAL) GLUCOSE METER (11/07/2023 6:57 AM CDT) Only the most recent of12 resultswithin the time period is included. GLUCOSE METER 123(H) 65 - 100 mg/dL 11/07/2023 7:00 AM CDT [facility] Blood BLOOD SPECIMEN / Unknown 11/07/2023 6:57 AM CDT 11/07/2023 7:00 AM CDT Julianne Velasquez MD CHEMISTRY [facility] [address] [place] [address], * XR Chest 1 View Portable - SALES PROFESSIONAL (11/06/2023 12:55 PM CDT) Anatomical Region Laterality Modality HEART, THORAX, CHEST Digital Rad iography 11/06/2023 1:15 PM CDT Impressions 11/06/2023 1:15 PM CDT No focal pulmonary opacities. No pneumothorax. Dictated by Connor Clark MD @ Nov 06 2023 ??1:15PM (Electronically Signed) [email or web address] Narrative 11/06/2023 1:15 PM CDT For Patients: [...] @ Nov 06 2023 1:15PM (Electronically Signed) [email or web address] Julianne Velasquez MD GENERAL IM AGING * 12 Lead EKG - SALES PROFESSIONAL (11/06/2023 12:12 PM CDT) Pathologist [facility] Interpretation Sinus bradycardia Low voltage QRS Borderline ECG No previous ECGs available BEYOND NOW Ventricular Rate 57 BPM BEYOND NOW Atrial Rate 57 BPM BEYOND NOW P-R Interval 160 ms BEYOND NOW QRS Duration 92 ms BEYOND NOW QT 444 ms BEYOND NOW QTc 432 ms BEYOND NOW P [place] -19 degrees BEYOND NOW R [place] -4 degrees BEYOND NOW T [place] -1 degrees BEYOND NOW 11/06/2023 12:1 2 PM CDT 11/07/2023 6:50 PM CDT Julianne Velasquez MD EKG ORD Performing Organization Address City/[facility]/ZIP Co de Phone Number BEYOND NOW [place], [place] * (ABNORMAL) HEMOGLOBIN (11/06/2023 10:27 AM CDT) Only the most recent of3 resultswithin the time period is included. [facility] HEMOGLOBIN 10.0(L) 13.5 - 17.5 g/dL 11/06/2023 10:52 AM CDT [facility] MCV 86 80 - 100 fL 11/06/2023 10:52 AM CDT [facility] Blood BLOOD SPECIMEN / Unknown Butterfly / Unknown 11/06/2023 10:27 AM CDT 11/06/2023 10:44 AM CDT Julianne Velasquez MD HEMATOLOGY [facility] [address] [place] [address], * POTASSIUM (11/06/2023 10:27 AM CDT) Only the most recent of3 resultswithin the time period is included. [facility] POTASSIUM 4.2 3.5 - 5.1 mmol/L 11/06/2023 11:08 AM CDT [facility] Blood BLOOD SPECIMEN / Unknown Butterfly / Unknown 11/06/2023 10:27 AM CDT 11/06/2023 10:44 AM CDT Aditya Espinal RN CHEMISTRY [facility] [address] [place] [address], * (ABNORMAL) CBC no diff AM (11/05/2023 5:05 AM CDT) Only the most recent of2 resultswithin the time period is included. Pathologist [facility] WHITE BLOOD COUNT 8.6 4.5 - 11.0 thou/cu mm 11/05/2023 5:38 AM CDT [facility] RED BLOOD COUNT 3.20(L) 4.30 - 5.90 mil/cu mm 11/05/2023 5:38 AM CDT [facility] HEMOGLOBIN 9.1(L) 13.5 - 17.5 g/dL 11/05/2023 5:38 AM T [facility] HEMATOCRIT 27.8(L) 37.0 - 53.0 % 11/05/2023 5:38 AM CDT [facility] MCV 87 80 - 100 fL 11/05/2023 5:38 AM CDT [facility] MCH 28.4 26.0 - 34.0 pg 11/05/2023 5:38 AM CDT [facility] MCHC 32.7 32.0 - 36.0 g/dL 11/05/2023 5:38 AM T [facility] RDW 14.7 11.5 - 15.5 % 11/05/2023 5:38 AM CDT [facility] PLATELET COUNT 177 140 - 440 thou/cu mm 11/05/2023 5:38 AM T [facility] MPV 9.5 6.5 - 11.0 fL 11/05/2023 5:38 AM CDT [facility] NRBC 0.0 % 11/05/2023 5:38 AM CDT [facility] ABS NRBC 0.0 thou /cu mm 11/05/2023 5:38 AM CDT [facility] Blood BLOOD SPECIMEN / Unknown Butterfly / Unknown 11/05/2023 5:05 AM CDT 11/05/2023 5:19 AM CDT Julianne Velasquez MD HEMATOLOGY Performing Organization Address City/[facility]/ZIP Co de Phone Number [facility] [address] [place] [address], * SODIUM (11/05/2023 5:05 AM CDT) SODIUM 140 136 - 145 mmol/L 11/05/2023 5:51 AM CDT [facility] Blood BLOOD SPECIMEN / Unknown Butterfly / Unknown 11/05/2023 5:05 AM CDT 11/05/2023 5:19 AM CDT Julianne Velasquez MD CHEMISTRY Performing Organization Address City/[facility]/ZIP Co de Phone Number [facility] [address] [place] [address], [place] * CREATININE (11/05/2023 5:05 AM CDT) eGFR >90 >90 mL/min/1.7 3m2 11/05/2023 5:51 AM CDT [facility] Comment:As of 2021, eG FR is calculated by the CKD-EPI creatinine equation without race adjustment. ??eGFR can be influenced by muscle mass, exercise, and diet. ??The reported eGFR is an estimation only and is only applicable if the renal function is stable. CREATININE 0.86 0.70 - 1.20 mg/dL 11/05/2023 5:51 AM CDT [facility] Blood BLOOD SPECIMEN / Unknown Butterfly / Unknown 11/05/2023 5:05 AM CDT 11/05/2023 5:19 AM CDT Julianne Velasquez MD CHEMISTRY Performing Organization Address City/[facility]/ZIP Co de Phone Number [facility] [address] [address], [place] * SCAN-CARDIAC STRIP (11/04/2023 2:59 PM CDT) Scanner OTHER * CALCIUM IONIZED HOSPITAL DRAW ONLY (11/04/2023 12:00 PM CDT) CALCIUM,IONIZE D 1.22 1.15 - 1.27 mmol/L 11/04/2023 12:12 PM CDT [facility] Blood BLOOD SPECIMEN / Unknown Venipuncture / Unknown 11/04/2023 12:00 PM CDT 11/04/2023 12:08 PM CDT Sreedhar Martini MD CHEMISTRY Performing Organization Address [facility] Co de Phone Number [facility] [address] [place] [address], [place] * SCAN-CARDIAC STRIP (11/04/2023 7:05 AM CDT) Scanner OTHER * PHOSPHORUS (11/04/2023 5:08 AM CDT) Only the most recent of2 resultswithin the time period is included. PHOSPHORUS 2.8 2.5 - 4.5 mg/dL 11/04/2023 6:21 AM CDT [facility] Blood BLOOD SPECIMEN / Unknown Butterfly / Unknown 11/04/2023 5:08 AM CDT 11/04/2023 5:41 AM CDT Sierra Salazar MD CHEMISTRY Performing Organization Address City/[facility]/ZIP Co de Phone Number [facility] [address] [place] [address], [place] * MAGNESIUM (11/04/2023 5:08 AM CDT) Only the most recent of2 resultswithin the time period is included. MAGNESIUM 1.7 1.6 - 2.6 mg/dL 11/04/2023 6:21 AM CDT [facility] Blood BLOOD SPECIMEN / Unknown Butterfly / Unknown 11/04/2023 5:08 AM CDT 11/04/2023 5:41 AM CDT Sierra Salazar MD [facility]STRY [facility] [address] [place] [address], * SCAN-CARDIAC STRIP (11/03/2023 2:56 PM CDT) [...] GI endoscopy Proceduralist: Gino Kern MD - [facility] Indications/Pre-Op Diagnosis: Coffee-ground emesis, Melena Medications: Fentanyl 100 micrograms IV, Midazolam 1 mgIV Procedure Description: Risk of bleeding, infection, perforation, need for surgery and alternatives discussed. The endoscope [id number] was introduced through the mouth, and advanced to the second part of duodenum. The upper GI endoscopy was accomplished without difficulty. The patient tolerated the procedure well. Complications: No immediate complications. Estimated Blood Loss & Specimen: Estimated blood loss: none. Findings: The esophagus was normal. A 6 mm bleeding Oralia-Corado tear with stigmata of recent bleedingwas found. Hematin (altered blood/vfogng-ahodee-zjfq material) was found on the greater curvature of the stomach. The duodenal bulb, first portion of the duodenum and second portionof the duodenum were normal. Impressions/Post-Op Diagnosis: - Normal esophagus. - Oralia-Corado tear. - Hematin (altered blood/dodcur-ejwefo-vrxv material) in the greater curvature of the stomach. - Normal duodenal bulb, first portion of the duodenum and secondportion of the duodenum. - No specimens collected. Recommendation: - Observe patient in ICU. PPIs- clear liquid and ADAT if hgb xratlt-Krje-decfrbb if needed Gino Kern MD 11/03/2023 1:09:30 PM This report has been signed electronically. Note Initiated On: 11/03/2023 12:30 PM Gino Kern MD PROCEDURE ORD * TYPE & SCREEN (11/03/2023 9:34 AM CDT) ABORH O Rh Positive 11/03/2023 10:26 AM CDT [facility] B[facility]OD BANK ANTIBODY SCREEN Negative Negative 11/03/2023 10:26 AM CDT [facility] BLOOD BANK SPECIMEN EXPIRATION DATE/TIME 11/06/23 23:59 11/03/2023 10:26 AM CDT [facility] Blood BLOOD SPECIMEN / Unknown Non-Lab Venipuncture / Unknown 11/03/2023 9:34 AM CDT 11/03/2023 9:43 AM CDT Raquel Aaron MD BLOOD BANK Performing Organization Address [facility]/ZIP Co de Phone Number [facility] [address] [place] [address], * (ABNORMAL) Protime - INR (11/03/2023 9:34 AM CDT) INR 1.4(H) <1.3 11/03/2023 9:59 AM CDT [facility] PROTIME 15.2(H) 10.3 - 12.3 sec 11/03/2023 9:59 AM CDT [facility] Blood BLOOD SPECIMEN / Unknown Non-Lab Venipuncture / Unknown 11/03/2023 9:34 AM CDT 11/03/2023 9:44 AM CDT Narrative [facility] - 11/03/2023 9:59 AM CDT ?Therapeutic [...] Ede Casas MD HEMATOLOGY Performing Organization Address City/[facility]/ZIP Co de Phone Number [facility] [address] [place] [address], * FIBRINOGEN,QUANTITATIVE (11/03/2023 9:34 AM CDT) FIBRINOGENJESS NTBJ 268 193 - 401 mg/dL 11/03/2023 9:59 AM CDT [facility] Blood BLOOD SPECIMEN / Unknown Non-Lab Venipuncture / Unknown 11/03/2023 9:34 AM CDT 11/03/2023 9:44 AM CDT Ede Casas MD HEMATOLOGY Performing Organization Address [facility] de Phone Number [facility] [address] * SCAN-CT INTERPRETATION (11/03/2023 12:00 AM CDT) Anatomical Region Laterality Modality Other Scanner OTHER * (ABNORMAL) GAMMA GT (10/28/2023 7:30 AM CDT) Only the most recent of2 resultswithin the time period is included. Pathologist [facility] GAMMA GT 146(H) 8 - 61 IU/L 10/28/2023 12:47 PM CDT [facility] Blood BLOOD SPECIMEN / Unknown Venipuncture / Unknown 10/28/2023 7:30 AM CDT 10/28/2023 8:54 AM CDT Pauline Mcbride NP CHEMISTRY Performing Organization Address [facility] Co de Phone Number [facility] [address] * (ABNORMAL) HEPATIC FUNCTION PANEL (10/28/2023 7:30 AM CDT) Only the most recent of3 resultswithin the time period is included. ALBUMIN 3.9(L) 4.0 - 4.9 g/dL 10/28/2023 9:20 AM CDT [facility] PROTEIN,TOTAL 7.1 6.0 - 8.0 g/dL 10/28/2023 9:20 AM [facility] BILIRUBIN,TOTAL 0.5 0.0 - 1.2 mg/dL 10/28/2023 9:20 AM [facility] BILIRUBIN,DIRECT 0.2 0.0 - 0.2 mg/dL 10/28/2023 9:20 AM [facility] BILIRUBIN,INDIRE CT 0.3 0.2 - 0.8 mg/dL 10/28/2023 9:20 AM [facility] ALK PHOSPHATASE 204(H) 40 - 129 IU/L 10/28/2023 9:20 AM [facility] ALT (SGPT) 35 10 - 50 IU/L 10/28/2023 9:20 AM [facility] AST (SGOT) 39 10 - 50 IU/L 10/28/2023 9:20 AM [facility] Blood BLOOD SPECIMEN / Unknown Venipuncture / Unknown 10/28/2023 7:30 AM CDT 10/28/2023 8:54 AM T Pauline Mcbride NP CHEMISTRY [facility] [address] [place] [address] * LIPID PANEL (09/23/2023 7:41 AM CDT) CHOLESTEROL,TOTAL 123 100 - 199 mg/dL 09/23/2023 9:11 AM [facility] Comment: Cholesterol, Total Reference Ranges Desirable <200 mg/dL Borderline 200-239 mg/dL High >=240 mg/dL TRIGLYCERIDES 94 <150 mg/dL 09/23/2023 9:11 AM [facility] HDL CHOLESTEROL 48 >40 mg/dL 9:11 AM [facility] NON-HDL CHOLESTEROL 75 <145 mg/dl 09/23/2023 9:11 AM [facility] CHOL/HDL RATIO 2.56 <4.50 09/23/2023 9:11 AM [facility] LDL CHOLESTEROL 56 <=130 mg/dL 09/23/2023 9:11 AM CDT [facility] VLDL CHOLESTEROL 19 <=30 mg/dL 09/23/19 24 9:11 AM CDT [facility] Blood BLOOD SPECIMEN / Unknown Venipuncture / Unknown 09/23/2023 7:41 AM CDT 09/23/2023 8:46 AM CDT Pauline Mcbride NP CHEMISTRY Performing Organization Address City/[facility] Co de Phone Number [facility] [address] [place] [address] * HEMOGLOBIN A1C SCREENING (09/02/2023 7:31 AM CDT) HEMOGLOBIN A1C SCREENING 5.3 <=6.4 % 09/02/2023 8:33 AM CDT [facility] Blood BLOOD SPECIMEN / Unknown Venipuncture / Unknown 09/02/2023 7:31 AM CDT 09/02/2023 8:27 AM CDT Narrative [facility] - 09/02/2023 8:33 AM CDT ? (<5.7%) ?Normal ? (5.7% to 6.4%) ? Indicates prediabetes ? (>=6.5%) ? Confirms diabetes Falsely low levels may be seen with: Recent Transfusion, Recent Significant Blood Loss, Hemolytic Diseases, or Falsely elevated levels may be seen with: Untreated Anemias, Splenectomy William Edwards MD CHEMISTRY Performing Organization Address City/[facility] Co de Phone Number [facility] [address] [place] [address] from Last 3 Months Advance Directives Documents on File Type Date Recorded Patient Explosive Operator Expl anatleandro POLST 06/25/2023 * Full Code (Latest Code Status on File) Date Activated Date Inactivated Comments 11/03/2023 8:15 AM 11/07/2023 1:29 PM Question Answer Comments Code Status Discussion: Reviewed Preferences Care Teams City Superintendent Relationship Specialty Start Date End Date Monty Hernandez MD [address] [place] [address] PCP - General Family Practice 04/18/15
--- OUTSIDE RECORDS SUMMARY | 2023-12-01 19:51 | XMS_ITS | Continuity of Care Document ---
Author Organization [facility] Address [address] [address] [place] [address] Phone Care Team Providers Care Coding Compliance Specialist Name Role Phone Nicolette Guo NP Unavailable Unavailable Procedures Procedure Date Subsqt Hosp-da E&m Minr Compl 4 Init Hosp-da E&m Mod Severity 4 Ugi Endo; Dx W/wo Collec Specm 24 Moderate Sedation, Initial 15 minutes Se Subsqt Hosp-da E&m Minr Compl 4 Advance Directives Directive Yes / No Effective Date File Name No Information Encounters Encounter Description Practice Location Reason(s) For Visit Diagnoses Date Provider Providers Copied on Encounter Subsqt Hosp-da E&m Minr Compl [facility], [address] [address], [place], [place], [id number], [place] [phone] [facility] No Information 4 Brant Will. [address] [place] [address], [facility] [address], [place], [id number] , [place]. [phone] Referring Provider: Nicolette Guo NP P, [address] [facility] [address], [place], [address] . tel:[phone] Init Hosp-da E&m Mod Severity [facility], [address] [address], [place], [place], [id number], tel:[phone] [facility] No Information 4 Erlin Christian. [address] [place] [address], [facility] [address], [place], [place], [id number] , [place]. tel: [phone] Referring Provider: Monty Malcolm, [address] [place], [address]. tel:[phone] Family History Family Member Type Diagnosis Age At Onset No Information Payers Payer name Insurance type Covered democrat ID Gay hoang(s) [facility] [id number] Social History Type Description Quantity Date Captured Comments Sex Male Smoking Status No Information Chief Complaint And Reason For Visit No Information Reason For Referral Reason For Referral No Information History Of Present Illness Encounter Date Complaint History Of Prese nt Illness No Information Functional Status Date Functional Assessmen t No Information Instructions Date Instruction Additional Infor mation No Information Assessments Type Assessment Date No Information Patient Care Teams Name Effective Dates (start - stop) Status Members No Information
--- OUTSIDE RECORDS SUMMARY | 2023-12-01 19:52 | XMS_ITS | Clinical Summary ---
Author Organization [facility] Address [address] [place] [address] Care Team Providers Care Wrapping Clerk Name Role Phone Elsewhere, Pcp Primary Care Provider Unavailabl e Source Comments Patient records contain information from all sites at [facility]. For routine questions regarding patient records, call [phone] during business hours, M-F 8:00 AM - 5:00 PM Central Time. Record requests for emergency care only can be directed to [phone] at any time.[facility] Allergies Active Allergy Reactions Criticality Noted Date Comments Cefazolin Other (see comments) 08/25/2023 Possible increase in alkaline phosphatase please see ID notes Medications * This document contains information received from the source organization and may not represent a complete record from that organization. lancets 1 each daily. 50 each 023 Suspended blood sugar diagnostic strips 1 test daily. 30 test 023 Suspended blood-glucose meter (FreeStyle [place]) kit Use as instructed 1 each 023 Suspended blood glucose ctl high,nml,low solution Glucose control solution provides an easy way to ensure accurate blood glucose testing. 1 each 023 Suspended flash glucose scanning reader (FreeStyle Jessica 2 [place]) miscIndications :Diabetes Mellitus Type 2 Ulcer Foot Hyperglycemic (HCC) 1 each (1 Device total) continuously. 1 each 1 023 Suspended pen needle, diabetic (BD Ultra-Fine Short Pen Needle) 31 gauge x 5/16 needle 1 Injection daily. 100 each 3 023 Suspended acetaminophen (TYLENOL) 500 mg tablet Take 2 tablets (1,000 mg total) by mouth every 6 (six) hours as needed for mild pain or score 1-3 of 10 or moderate pain or score 4-6 of 10. Suspended Additional Information Patient taking differently:1,000 mg oral3 times daily, Reported on 11/29/2023 insulin NPH (NovoLIN N FlexPen) 100 unit/mL (3 mL) injection Inject 10-20 Units under the skin 2 (two) times a day with meals. 15 mL 11 Suspended Additional Information Patient taking differently: 4-8 Unitssubcutaneous 2 times daily with meals,takes 8 units in the AM and 4 units in the afternoon, Reported on 11/29/2023 atorvastatin (LIPITOR) 20 mg tablet Take 1 tablet (20 mg total) by mouth at bedtime. 30 tablet 1 Suspended bisacodyL (DULCOLAX) 5 mg EC tablet Take 2 tablets (10 mg total) by mouth 2 (two) times a day as needed for constipation. 11/28 Discontinued calcium carbonate (TUMS) 500 mg (200 mg calcium) chewable tablet Administer 1 tablet (200 mg of calcium total) via gastric tube every 2 (two) hours as needed for indigestion or heartburn. 11/28 Discontinued carboxymethylce llulose (REFRESH PLUS) 0.5 % ophthalmic solution Administer 2 drops into both eyes 4 (four) times a day as needed for dry eyes. 50 each Suspended levETIRAcetam (Keppra) 100 mg/mL solution Take 7.5 mL (750 mg total) by mouth 2 (two) times a day. Suspended aspirin 81 mg chewable tablet Chew 1 tablet (81 mg total) daily. 60 tablet Suspended amitriptyline 2%,gabapentin 5%,lidocaine 5%-vanicream Apply topically 2 (two) times a day. Apply to affected area. 60 g 3 11/28 Discontinued nystatin (Mycostatin) 100,000 unit/gram cream Apply 1 Application topically as needed. 11/28 Discontinued hydrocortisone 1 % ointment Apply topically as needed. 11/28 Discontinued oxyCODONE (Roxicodone) 5 mg immediate release tablet Take 5 mg by mouth as needed. 024 11/28 Discontinued Novofine Autocover 30 gauge x 1/3 needle Suspended zinc oxide 20 % ointment Apply topically as needed. 024 11/28 Discontinued rivaroxaban (Xarelto) 10 mg tablet Take 1 tablet (10 mg total) by mouth daily. 30 tablet 11 024 08/27 Suspended lisinopriL 5 mg tablet Take 5 mg by mouth daily. Suspended pantoprazole (Protonix) 40 mg EC tablet Take 40 mg by mouth 2 (two) times a day before morning and evening meals. Suspended polyethylene glycol (Miralax) 17 gram powder packet Take 17 g by mouth daily. Dissolve each 17 g dose in 240 mLs (8 ounces) of beverage. Suspended sucralfate (Carafate) 1 gram tablet Take 1 g by mouth every 6 (six) hours. Suspended sennosides (Senokot) 8.6 mg tablet Take 8.6 mg by mouth 2 (two) times a day. Suspended nystatin (Nystop) 100,000 unit/gram powder Apply 1 Application topically 2 (two) times a day. Apply to rash. Suspended Active Problems Problem Noted Date Diagnosed Date Hemorrhage Gastrointestinal 11/28/2023 Seizure 10/03/2023 Stroke 05/24/2023 Change Mental Status [...] (04/17/2020): Added automatically from request for surgery [id number] Hyponatremia 03/09/2020 07/30/2022 Hyperkalemia 03/09/2020 07/30/2022 Cellulitis 03/08/2020 03/20/2020 Cellulitis Foot Right 03/08/20202022 Diabetes Mellitus Type 2 Hyperglycemia 02/18/2017 04/17/2022 Diabetes Mellitus Type 2 Ulcer Foot 04/17/2022 Encounters Date Type Department Care Team Description 11/28/2023 2:49 PM CDT - Present Hospital Encounter [facility], [facility], Fourth Floor [address] [place] [address] Paola Solis APRN, C.N.P., D.N.P., M.S.N. Theodore Dsouza M.D. Yola Triana M.D. Kleinheksel, Germaine M, APRN, C.N.P., D.N.P. Hemorrhage Gastrointestinal (Primary Dx); Anemia 11/03/2023 Intake [facility] 10/21/2023 Clinical Communication Department of Orthopedic Surgery in [place], [place] [address] [place] [phone] Vel Vinson M.D., M.B.A. 10/03/2023 1:00 PM CDT Comprehensive Visit Department of Neurology in [place], [place] [address] [place] [phone] Balbir Maradiaga M.D. 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 Infection Total Hip Arthroplasty Subsequent Right (Primary Dx) from Last 3 Months Immunizations Name Administration [...] drink = 0.6 oz pur e alcohol) [facility] [employer] Answer Date Recorded In the past 12 months has e Ombu, gas, oil, or water Pingboard threatened to shut off services in your home? No 11/29/2023 Humiliation, Afraid, Rape, and Kick questionnair e Answer Date Recorded Within the last year, have y ou been afraid of your partner or ex-partner? No 11/29/2023 Within the last year, have y ou been humiliated or emotionally abused in other ways by your partner or ex-partner? No Within the last year, have y ou been kicked, hit, slapped, or otherwise physically hurt by your partner or ex-partner? No 11/29/2023 Within the last year, have y ou been raped or forced to have any kind of sexual activity by your partner or ex-partner? No 11/29/2023 PHQ-2 Answer Date Recorded PHQ-2 Score 0 [...] the money to buy more. Never true 11/29/19 24 Within the past 12 months, t he food you bought just didn't last and you didn't have money to get more. Never true 11/29/2023 PRAPARE - Transportation Answer Date Re corded In the past 12 months, has l ack of transportation kept you from medical appointments or from getting medications? No 11/17 In the past 12 months, has l ack of transportation kept you from meetings, work, or from getting things needed for daily living? No 11/29/2023 Nutrition Answer Date Recorded On average, how [...] your living situation today? 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 Gender Identity Male 07/26/2022 1:32 PM CDT Sexual Orientation Straight 07/26/2022 1: 32 PM CDT Last Filed Vital Signs Vital Sign Reading Time Taken Comments Blood Pressure 110/58 12/01/2023 8:14 AM CDT Pulse 59 12/01/2023 8:14 AM CDT Temperature 36.3 ??C (97.3 ??F) 12/01/2023 8:14 AM CD T Respiratory Rate 20 12/01/2023 8:14 AM CDT Oxygen Saturation 93% 12/01/2023 8:14 AM CDT Inhaled Oxygen Concentration - - Weight 93.7 kg (206 lb 9.1 oz) 11/28/2023 9:40 P M CDT Height 180.3 cm (5' 11) 11/28/2023 9:40 PM CDT Body Mass Index 28.81 11/28/2023 9:40 PM CDT Plan of Treatment Upcoming Encounters Date Type Department Care Team (Latest Contact Info) Description 01/02/2024 11:30 AM DRIER TRANSFER CAR OPERATOR Clinical Communication Virtual Review in [place], [place] [address] [place] [address] 01/05/2024 9:20 AM DRIER TRANSFER CAR OPERATOR Lab Department of Infusion Therapy in [place], [place] [address] [place] [phone] Vel Vinson M.D., M.B.A. [address] [place] [phone] 01/05/2024 10:15 AM DRIER TRANSFER CAR OPERATOR Appointment [facility] in [place], [place] [address] [place] [phone] Vel Vinson M.D., M.B.A. [address] [place] [phone] 01/05/2024 10:45 AM DRIER TRANSFER CAR OPERATOR Comprehensive Visit Section of Infectious Diseases in [address] [phone] Maddy Bingham P.A.-C. [address] [place] [phone] 01/05/2024 11:15 AM DRIER TRANSFER CAR OPERATOR Office Visit Department of Orthopedic Surgery in [place], [place] [address] [place] [phone] Vel Vinson M.D., M.B.A. [address] [place] [phone] 01/05/2024 2:30 PM DRIER TRANSFER CAR OPERATOR Comprehensive Visit Preoperative Evaluation Center in [place], [place] [address] [place] [phone] Vel Vinson M.D., M.B.A. [address] [place] [address] 01/06/2024 7:25 AM DRIER TRANSFER CAR OPERATOR Hospital Encounter [facility] 02 4 AM ADMIT [address] [place] [phone] Vel Vinson M.D., M.B.A. [address] [place] [phone] 01/06/2024 7:25 AM DRIER TRANSFER CAR OPERATOR - 01/06/2024 12:11 PM DRIER TRANSFER CAR OPERATOR Surgery [facility] MA[facility] OR [address] [place] [address] Vel Vinson M.D., M.B.A. [address] [place] [phone] ARTHROPLASTY REVISION FEMORAL+ACETABULAR HIP Scheduled Procedures Name Priority Associated Diagnoses Date/Ti me ARTHROPLASTY REVISION FEMORAL+ACETABULAR HIP Infection Total Hip Arthroplasty Subsequent Right 01/06/2024 7:25 AM DRIER TRANSFER CAR OPERATOR Health Maintenance Due Date Last Done Comments [...] Re-check 01/03/2024 10/03/2023 Hemoglobin A1C 03/04/2024 09/02/2023, 040 07/2023, 05/13/2023, Additional history exists Urine Albumin 03/10/2024 03/10/2023, 0202/2020, 06/22/2018, Additional history exists Creatinine Level (Kidney Fun ction Test) 11/29/2024 11/30/2023, 11/29/2023, 11/28/2023, Additional history exists Potassium Level 11/29/2024 11/30/2023, 11/17, 11/28/2023, Additional history exists Sodium Level 11/29/2024 11/30/2023, 11/17, 11/28/2023, Additional history exists DTaP,Tdap,and Td Vaccines (2 - Td or Tdap) 04/26/2025 04/27/2015 Lipid (Cholesterol) Screening 09/22/2028, 07/22/2023, 05/24/2023, Additional history exists Depression Screening (Annual PHQ-2) Completed 03/10/2023, 03/10/2023 Medical Devices Implanted Type Area Fast Foods Worker Device Identifier Shelf Expiration Date Model / Serial / Lot Cmnt Bn Smp 40gm - [id number] Implanted:Qty: 1 on 05/23/2023 by Vel Vinson M.D., M.B.A. at [facility] Bone Cement Right: Hip [place] 6191-1-001 / / Cmnt Bn Smp 40gm - [id number] Implanted:Qty: 1 on 05/23/2023 by Félix Mckeon M.D. at [facility] Bone Cement Right: Hip Liliane 6191-1-001 / / Cmnt Bn Smp 40gm - [id number] Implanted:Qty: 1 on 05/23/2023 by Félix Mckeon M.D. at [facility] Bone Cement Right: Hip [place] 6191-1-001 / / Stnt Protege 0.014 [id number] - [id number] Implanted:Qty: 1 on 08/09/2022 by Fantasma Butt M.D. at [facility] Cardiac Stent Medtronic 02/19/2024 SECX-8-30-1 35 / / [id number] Small Frag-Screw Yasmany 3.5x16 - Amaral [id number] Implanted:Qty: 3 on 2004 Hardware e.g. pins/screws /rods Depuy Synthes Description:Device Manufactu rer - Synthes. Device Status Text - HARDWARE-7597. K-Wire Smooth S.S. Single 9 .062 - Amaral [id number] Implanted:Qty: 1 on 2004 Hardware e.g. pins/screws /rods Liliane Description:Device Manufactu rer - Liliane Angel.. Device Status Text - HARDWARE-9295. Small [...] 2 on 01/02/2004 Hardware e.g. pins/screws /rods [place] Description:Device Manufactu rer - Liliane Angel.. Device Status Text - HARDWARE-9484. Small Frag-Screw Yasmany 3.5x26 - Amaral [id number] Implanted:Qty: 1 on 01/02/2004 Hardware e.g. pins/screws /rods Depuy Synthes Description:Device Manufactu rer - Synthes. Device Status Text - HARDWARE-7601. Syn Screw Schanz 5.0x250 - Amaral [id number] Implanted:Qty: 1 on 01/02/2004 Hardware e.g. pins/screws /rods Depuy Synthes Description:Device Manufactu rer - Synthes. Device Status Text - HARDWARE-32235. Guide Wire-Ball Tip 3 X 800 - Amaral [id number] Implanted:Qty: 1 on 02/03/2009 Hardware e.g. pins/screws /rods Liliane Description:Device Manufactu rer - [place] Angel.. Device Status Text - HARDWARE- 91961. [facility] Data - [id number]. Hip Stm Prs Cmnt Rt 3 200 - [id number] Implanted:Qty: 1 on 05/23/2023 by Félix Mckeon M.D. at [facility] Hip Implant Right: Hip Depuy Synthes 08/16/2032 [id number] / / [id number] Lnr Emp Aox Std +4 40x54 - [id number] Implanted:Qty: 1 on 05/23/2023 by Félix Mckeon M.D. at [facility] Hip Implant Right: Hip Depuy Synthes 02/16/2027 4722-54-440 / / [id number] Fem Hd Art +12ofst 40 - [id number] Implanted:Qty: 1 on 05/23/2023 by Vel Vinson M.D., M.B.A. at [facility] Hip Implant Right: Hip Depuy Synthes 02/16/2033 4734-40-120 / / [id number] Stnt Ezralver 518 8x80 - [id number] Implanted:Qty: 1 on 05/24/2023 by Almaz Olea M.D. at [facility] Vascular Stent [employer] 02/24/2026 [id number] / / [id number] Explanted Type Area Fast Foods Worker Device Identifier Shelf Expiration Date Model / Serial / Lot Screw-Hgpii S-Tap 6.5 X 15mm - Amaral [id number] Implanted:Qty: 1 on 02/03/2009 Explanted:Qty: 1 on 05/23/2023 by Vel Vinson M.D., M.B.A. at [facility] Hardware e.g. pins/screws /rods Nori [employer] Description:Device Manufactu rer - Nori. Device Status Text - HARDWARE-70686. Small Frag-Screw Yasmany 3.5x12 - Amaral [id number] Implanted:Qty: 1 on 01/02/2004 Explanted:Qty: 1 on 05/23/2023 by Vel Vinson M.D., M.B.A. at [facility] Hardware e.g. pins/screws /rods Depuy Synthes Description:Device Manufactu rer - Synthes. Device Status Text - HARDWARE-7595. Small Frag-Screw Yasmany 3.5x16 - Amaral [id number] Implanted:Qty: 2 on 01/02/2004 Explanted:Qty: 2 on 05/23/2023 by Vel Vinson M.D., M.B.A. at [facility] Hardware e.g. pins/screws /rods Depuy Synthes Description:Device Manufactu rer - Synthes. Device Status Text - HARDWARE-7597. Pelvic Re-Plate Cvd 3.5x 6ho - Aamral [id number] Implanted:Qty: 1 on 01/02/2004 Explanted:Qty: 1 on 05/23/2023 by Félix Mckeon M.D. at [facility] Hardware e.g. pins/screws /rods Depuy Synthes Description:Device Manufactu rer - Synthes. Device Status Text - HARDWARE-7366. Right Hip Screw-Hgpii S-Tap 6.5 X 30mm - Amaral [id number] Implanted:Qty: 2 on 02/03/2009 Explanted:Qty: 2 on 05/23/2023 by Vel Vinson M.D., M.B.A. at [facility] Hardware e.g. pins/screws /rods [employer]i [employer] Description:Device Manufactu rer - Nori. Device Status Text - HARDWARE-56117. Screw-Hgpii S-Tap 6.5 X 35mm - Amaral [id number] Implanted:Qty: 1 on 02/03/2009 Explanted:Qty: 1 on 05/23/2023 by Vel Vinson M.D., M.B.A. at [facility] Hardware e.g. pins/screws /rods [employer]i [employer] Description:Device Manufactu rer - Nori. Device Status Text - HARDWARE-30498. 6.5 Saniya Screw-16mm Thread 65 - Amaral [id number] Implanted:Qty: 1 on 01/02/2004 Explanted:Qty: 1 on 05/23/2023 by Vel Vinson M.D., M.B.A. at [facility] Hardware e.g. pins/screws /rods Depuy Synthes Description:Device Manufactu rer - Synthes. Device Status Text - HARDWARE-21696. Implex-Shell Hedro 54mm - Amaral [id number] Implanted:Qty: 1 on 02/03/2009 Explanted:Qty: 1 on 05/23/2023 by Vel Vinson M.D., M.B.A. at [facility] Hip Implant Other/Legacy - See Implant Description Nori [employer] Description:Device Manufactu rer - Nori. Body Location - Other. Right. Device Status Text - HIP [id number]. [place]-Stem [place] 8 Hi - Amaral [id number] Implanted:Qty: 1 on 02/03/2009 Explanted:Qty: 1 on 05/23/2023 by Vel Vinson M.D., M.B.A. at [facility] Hip Implant Other/Legacy - See Implant Description [employer] Description:Device Manufactu rer - [employer]. Body Location - Other. Right. Device Status Text - HIP [id number]. Nori Liner 0 Degree 32 X 54m - Amaral [id number] Implanted:Qty: 1 on 02/03/2009 Explanted:Qty: 1 on 05/23/2023 by Vel Vinson M.D., M.B.A. at [facility] Hip Implant Other/Legacy - See Implant Description Nori [employer]omet Description:Device Manufactu rer - Nori. Body Location - Other. Right. Device Status Text - [id number] [id number]. Dep. Head Prodigy 32 + 1.0 - Amaral [id number] Implanted:Qty: 1 on 02/03/2009 Explanted:Qty: 1 on 05/23/2023 by Vel Vinson M.D., M.B.A. at [facility] Hip Implant Other/Legacy - See Implant Description [employer] Description:Device Manufactu rer - J [employer] J [employer]o. Body Location - Other. Right. Device Status Text - HIP [id number]. Procedures * The patient is currently admitted. The information in this section might not be complete until the patient is discharged. Procedure Name Priority Date/Time Associated Diagnosis Comments GLUCOSE POCT, B Routine 12/01/2023 12:06 PM CDT GLUCOSE POCT, B Routine 12/01/2023 7:59 AM CDT GLUCOSE POCT, B Routine 11/30/2023 8:48 PM CDT GLUCOSE POCT, B Routine 11/30/2023 4:47 PM CDT GLUCOSE POCT, B Routine 11/30/2023 12:07 PM CDT GLUCOSE POCT, B Routine 11/30/2023 7:30 AM CDT BASIC METABOLIC PANEL, S/P Routine 11/30/2023 6:54 AM CDT CBC WITHOUT DIFFERENTIAL, B Routine 11/30/2023 6:54 AM CDT GLUCOSE POCT, B Routine 11/29/2023 9:16 PM CDT GLUCOSE POCT, B Routine 11/29/2023 5:16 PM CDT GLUCOSE POCT, B Routine 11/29/2023 12:19 PM CDT GLUCOSE POCT, B Routine 11/29/2023 7:55 AM CDT SPSMA RESULT Routine 11/29/2023 7:49 AM CDT FOLATE, S Routine 11/29/2023 7:49 AM CDT VITAMIN B12 ASSAY, S Routine 11/29/2023 7:49 AM CDT IRON AND TOT IRON-BINDING CAPACITY, S/P Routine 11/29/2023 7:49 AM CDT BASIC METABOLIC PANEL, S/P Routine 11/29/2023 7:49 AM CDT CBC WITH DIFFERENTIAL, B Routine 11/29/2023 7:49 AM CDT CBC WITH DIFFERENTIAL, B STAT 11/28/2023 7:[address] ABDOMEN PELVIS WITHOUT AND WITH IV CONTRAST RAD - Semiurgent (Fast; most ED patients; some inpatients) 11/28/2023 5:18 PM CDT HEPATIC FUNCTION PANEL, S STAT 11/28/2023 3:31 PM CDT TYPE AND SCREEN STAT 11/28/2023 3:31 PM CDT LACTATE, B/P STAT 11/28/2023 3:31 PM CDT CBC WITH DIFFERENTIAL, B STAT 11/28/2023 3:31 PM CDT BASIC METABOLIC PANEL, S/P STAT 11/28/2023 3:31 PM CDT FERRITIN, S Routine 11/28/2023 3:20 PM CDT ECG STAT 11/28/2023 3:18 PM CDT HEMOGLOBIN A1C, B STAT 05/24/2023 5:5 9 AM CDT LIPID PANEL, S STAT 05/24/2023 5:59 AM CDT ALBUMIN, RANDOM, U Routine 03/10/2023 11:30 AM DRIER TRANSFER CAR OPERATOR Diabetes Mellitus Type 2 Ulcer Foot Hyperglycemic (HCC) from Last 3 Months or Most Recently Relevant to Health Maintenance Results * Glucose, POCT (12/01/2023 12:06 PM CDT) Only the most recent of10 resultswithin the time period is included. Glucose, POCT, B 90 70 - 140 mg/dL 12/01/2023 12:33 PM CDT PCLX Site Capillary 12/01/2023 12:33 PM CDT PCLX Last Intake 3-4 hours 12/01/2023 12:33 PM CDT PCLX Blood 12/01/2023 12:0 6 PM CDT 12/01/2023 12:33 PM CDT us Unknown Provider LAB POCT ORDERABLES-MANUAL Cata l Result POC [facility] [address] [place] [address], [facility] PCLX [facility] POC [address] [place] [address] * (ABNORMAL) CBC without Differential (11/30/2023 6:54 AM CDT) Hemoglobin 10.0(L) 13.2 - 16.6 g/dL 11/30/2023 7:20 AM CDT DTL Hematocrit 31.0(L) 38.3 - 48.6 % 11/30/2023 7:20 AM CDT DTL Erythrocytes 3.45(L) 4.35 - 5.65 x10(12)/L 11/30/2023 7:20 AM CDT DTL MCV 89.9 78.2 - 97.9 fL 11/30/2023 7:20 AM CDT DTL RBC Distrib Width 15.4(H) 11.8 - 14.5 % 11/30/2023 7:20 AM CDT DTL Platelet Count 159 135 - 317 x10(9)/L 11/30/2023 7:20 AM CDT DTL Leukocytes 8.0 3.4 - 9.6 x10(9)/L 11/30/2023 7:20 AM CDT DTL Blood (Blood, Venous) 11/30/2023 6:54 AM CDT 11/30/2023 7:15 AM CDT Theodore Dsouza M.D. LAB BLOOD ADD-ON Final Result [address] [address], [facility] [address] [place] [address] * Basic Metabolic Panel (11/30/2023 6:54 AM CDT) Only the most recent of3 resultswithin the time period is included. Potassium, S 4.4 3.6 - 5.2 mmol/L 11/30/2023 7:53 AM CDT DTL Sodium, S 137 135 - 145 mmol/L 11/30/2023 7:53 AM CDT DTL Chloride, S 101 98 - 107 mmol/L 11/30/2023 7:53 AM CDT DTL Bicarbonate, S 25 22 - 29 mmol/L 11/30/2023 7:53 AM CDT DTL Anion Gap 11 7 - 15 11/30/2023 7:53 AM CDT DTL BUN (Blood Urea Nitrogen), S 14 8 - 24 mg/dL 11/30/2023 7:53 AM CDT DTL Creatinine 1.00 0.74 - 1.35 mg/dL 11/30/2023 7:53 AM CDT DTL Estimated GFR (eGFR) 87 >=60 mL/min/BSA 11/30/2023 7:53 AM CDT DTL Comment: Estimated GFR calculated using the 2020 CKD_EPI creatinine equation. Calcium, Total, S 9.0 8.6 - 10.0 mg/dL 11/30/2023 7:53 AM CDT DTL Glucose, S 105 70 - 140 mg/dL 11/30/2023 7:53 AM CDT DTL Blood (Blood, Venous) 11/30/2023 6:54 AM CDT 11/30/2023 7:34 AM CDT Theodore Dsouza M.D. LAB [place] [address], [place] [address] * (ABNORMAL) Morphology Eval (special smear) (11/29/2023 7:49 AM CDT) Neutrophilic Segs and Bands 61 50 - 75 % 11/29/2023 10:31 AM CDT [facility] Lymphocytes 22 18 - 42 % 11/29/2023 10:31 AM CDT [facility] Monocytes 6 2 - 11 % 11/29/2023 10:31 AM CDT [facility] Eosinophils 10(H) 1 - 3 % 11/29/2023 10:31 AM CDT [facility] Basophils 1 0 - 2 % 11/29/2023 10:31 AM CDT [facility] Manual Absolute Neutrophil Count 4.39 1.56 - 6.45 x10(9)/L 11/29/2023 10:31 AM CDT [facility] Comment: ----ADDITIONAL INFORMATION---- The manual absolute neutrophil count is derived from a manual differential count and therefore is not exactly comparable to the automated absolute neutrophil count. Interpretation See Comment 10:31 AM CDT [facility] Comment:Peripheral blood sme ar reviewed: no diagnostic abnormalities are seen. Reviewed by: Rayne 11/29/2023 10:31 AM CDT [facility] Blood (Blood, Venous) 11/29/2023 7:49 AM CDT 11/29/2023 8:18 AM CDT Zahira Shaw APRN, C.N.P., D.N.P. LAB [place] [address] * (ABNORMAL) Iron and Total Iron-Binding Capacity (11/29/2023 7:49 AM CDT) [facility] Iron 60 50 - 150 mcg/dL 11/29/2023 8:52 AM CDT DT Total Iron Binding Capacity 241(L) 250 - 400 mcg/dL 11/29/2023 8:52 AM CDT DT Percent Saturation 25 14 - 50 % 11/29/2023 8:52 AM CDT DT Blood (Blood, Venous) 11/29/2023 7:49 AM CDT 11/29/2023 8:33 AM CDT Zahira Shaw APRN, C.N.P., D.N.P. LAB [place]LOOD [place] [address] * (ABNORMAL) CBC with Differential, Blood (11/29/2023 7:49 AM CDT) Only the most recent of3 resultswithin the time period is included. [facility] Hemoglobin 10.3(L) 13.2 - 16.6 g/dL 11/29/2023 8:24 AM CDT DTL Hematocrit 31.7(L) 38.3 - 48.6 % 11/29/2023 8:24 AM CDT DTL Erythrocytes 3.52(L) 4.35 - 5.65 x10(12)/L 11/29/2023 8:24 AM CDT DTL MCV 90.1 78.2 - 97.9 fL 11/29/2023 8:24 AM CDT DTL RBC Distrib Width 15.4(H) 11.8 - 14.5 % 11/29/2023 8:24 AM CDT DTL Platelet Count 165 135 - 317 x10(9)/L 11/29/2023 8:24 AM CDT DTL Leukocytes 7.2 3.4 - 9.6 x10(9)/L 11/29/2023 8:24 AM CDT DTL Neutrophils 3.80 1.56 - 6.45 x10(9)/L 11/29/2023 8:24 AM CDT DHPM Lymphocytes 1.92 0.95 - 3.07 x10(9)/L 11/29/2023 8:24 AM CDT DTL Monocytes 0.80 0.26 - 0.81 x10(9)/L 11/29/2023 8:24 AM CDT DTL Eosinophils 0.58(H) 0.03 - 0.48 x10(9)/L 11/29/2023 8:24 AM CDT DTL Basophils 0.07 0.01 - 0.08 x10(9)/L 11/29/2023 8:24 AM CDT DTL Blood (Blood, Venous) 11/29/2023 7:49 AM CDT 11/29/2023 8:18 AM CDT Zahira Shaw APRN, C.N.P., D.N.P. LAB BLOOD ADD-ON Final Result [facility] [address] [place] [address], [facility] DTL [facility] [address] [place] [address] [facility] [address] [place] [address] * Folate (11/29/2023 7:49 AM CDT) [facility] Folate, S >20.0 >=4.0 mcg/L 12/01/2023 8: 08 AM CDT DT Blood (Blood, Venous) 11/29/2023 7:49 AM CDT 11/29/2023 8:33 AM CDT Zahira Shaw APRN, C.N.P., D.N.P. LAB BLOOD ADD-ON Final Result Performing Organization Address City/[facility]/ZIP Co de Phone Number [facility] [address] [place] [address], [facility] [address] [place] [address] * Vitamin B12 Assay (11/29/2023 7:49 AM CDT) [facility] Vitamin B12 Assay, S 585 180 - 914 ng/L 12/01/2023 8:17 AM CDT DTL Comment: ----ADDITIONAL INFORMATION---- In patients being evaluated for vitamin B12 deficiency who have intrinsic factor blocking antibodies (IFBA), false elevations of B12 may occur due to IFBA interference thus potentially obscuring a physiological deficiency of B12. If observed B12 concentrations are discordant with clinical presentation, measurement of methylmalonic acid (MMA) should be considered. Blood (Blood, Venous) 11/29/2023 7:49 AM CDT 11/29/2023 8:33 AM CDT us Zahira Shaw APRN, C.N.P., D.N.P. LAB BLOOD ADD-ON Final Result Performing Organization Address City/[facility]/ZIP Co de Phone Number [facility] [address] [place] [address], [facility] [address] [place] [address] * CT Abdomen Pelvis without and with IV Contrast (11/28/2023 5:18 PM CDT) Anatomical Region Laterality Modality Abdomen, Pelvis, Abdominal R ST LOS, Abdominal ARZ LOS, Abdominal FLA LOS N/A Computed Tomograp hy, Computed Tomography 11/28/2023 5:19 PM CDT Impressions 11/28/2023 5:53 PM CDT Negative for active gastrointestinal bleeding in the abdomen or pelvis. No acute findings. Narrative 11/28/2023 5:53 PM CDT EXAM: ??CT ABDOMEN PELVIS ANGIOGRAM WITH IV CONTRAST Including 3D image post-processing with or without AI assistance. COMPARISON: ??CT abdomen pelvis 05/29/2023. FINDINGS: No acute hemorrhage in the abdomen or pelvis. No evidence of active gastrointestinal bleeding. No hematomas. Cholelithiasis. The liver, spleen, pancreas, adrenals, and kidneys are normal. Normal caliber small and large bowel. Normal appendix. No abdominopelvic free fluid or lymphadenopathy. Right psoas atrophy. Right hip arthroplasty with cerclage wires, acetabular sclerosis and periarticular loose bodies. Stable L1 superior endplate deformity. L5 spondylolysis with grade 1 anterolisthesis. Benign-appearing calcified nodules in the right posterior subcutaneous tissues, likely injection granulomas. Moderate aortic atherosclerosis. Moderate/severe proximal celiac artery stenosis. Mild proximal SMA and NIRMAL stenoses. Remainder negative. Procedure Note Maura Del Cid M.D. - 11/28/2023 EXAM: CT ABDOMEN PELVIS ANGIOGRAM WITH IV CONTRAST Including 3D image post-processing with or without AI assistance. COMPARISON: CT abdomen pelvis 05/29/2023. FINDINGS: No acute hemorrhage in the abdomen or pelvis. No evidence of activegastrointestinal bleeding. No hematomas. Cholelithiasis. The liver, spleen, pancreas, adrenals, and kidneys arenormal. Normal caliber small and large bowel. Normal appendix. Noabdominopelvic free fluid or lymphadenopathy. Right psoas atrophy. Right hip arthroplasty with cerclage wires,acetabular sclerosis and periarticular loose bodies. Stable L1 superiorendplate deformity. L5 spondylolysis with grade 1 anterolisthesis.Benign-appearing calcified nodules in the right posterior subcutaneous tissues, likely injection granulomas. Moderate aortic atherosclerosis. Moderate/severe proximal celiac arterystenosis. Mild proximal SMA and NIRMAL stenoses. Remainder negative. IMPRESSION: Negative for active gastrointestinal bleeding in the abdomen or pelvis. Noacute findings. Paola Solis APRN C.N.P., Rodrigo.N.P., M.S.N. IMG CT PROCEDURES Final Result * (ABNORMAL) Hepatic Function Panel (11/28/2023 3:31 PM CDT) Pathologist [facility] Bilirubin, Total, S <0.2 0.0 - 1.2 mg/dL 11/28/2023 4:32 PM CDT DTL Bilirubin, Direct, S <0.2 0.0 - 0.3 mg/dL 11/28/2023 4:32 PM CDT DTL Aspartate Aminotransferase (AST), S 26 8 - 48 U/L 11/28/2023 4:32 PM CDT DTL Alanine Aminotransferase (ALT), S 27 7 - 55 U/L 11/28/2023 4:32 PM CDT DTL Alkaline Phosphatase, S 171(H) 40 - 129 U/L 11/28/2023 4:32 PM CDT DTL Albumin, S 3.4(L) 3.5 - 5.0 g/dL 11/28/2023 4:32 PM CDT DTL Protein, Total, S 5.7(L) 6.3 - 7.9 g/dL 11/28/2023 4:32 PM CDT DTL Blood (Blood, Venous) 11/28/2023 3:31 PM CDT 11/28/2023 4:07 PM CDT Paola Solis APRN, C.N.P., D.N.P., M.S.N. LAB BLOOD ADD-ON Final Result [facility] [address] [place] [address], [place] DTL [facility] [address] [place] [address] * Type and Screen (with Reflex Antibody ID) (11/28/2023 3:31 PM CDT) Pathologist [facility] ABORh O Pos Not applicable 11/28/2023 4:02 PM CDT STRM Antibody Screen Negative Negative 11/28/2023 4:19 PM CDT STRM Type & Screen Expiration 12/01/2023 23:59 11/28/2023 4:02 PM CDT STRM Testing Location Matthew DEFAULT 11/28/2023 3:44 PM CDT STRM Blood (Blood, Venous) 11/28/2023 3:31 PM CDT 11/28/2023 3:44 PM CDT us Jonna Kwok M.D., J.D. LAB BLOOD BANK TEST O RDERABLES Final Result [facility] [address] [place] [address], [facility] STRM [facility] [address] [place] [address] * Lactate (11/28/2023 3:31 PM CDT) [facility] Lactate, P 1.2 0.5 - 2.2 mmol/L 11/28/2023 3:59 PM CDT STMA Blood (Blood, Venous) 11/28/2023 3:31 PM CDT 11/28/2023 3:44 PM CDT Jonna Kwok M.D., Krystle LAB BLOOD NON ADD-ON Final Result [facility] [address] [place] [address], [facility] STMA [facility] [address] [place] [address] * Ferritin (11/28/2023 3:20 PM CDT) [facility] Ferritin, S 302 31 - 409 mcg/L 11/29/2023 4:22 AM CDT DTL Blood (Blood, Venous) 11/28/2023 3:20 PM CDT 11/29/2023 3:49 AM CDT Zahira Ivey [employer] JUAN RAMON, C.N.P., D.N.P. LAB BLOOD ADD-ON Final Result Performing Organization Address City/[facility]/ZIP Co de Phone Number [facility] [address] [place] [address], [place] DTL [facility] [address] [place] [address] * ECG 12 Lead (11/28/2023 3:18 PM CDT) Ventricular Rate ECG/Min 58 BPM MUSE [place] Interval 208 ms MUSE QRSD Interval 94 ms MUSE QT Interval 460 ms MUSE QTC Interval 451 ms MUSE R [place] 43 degrees MUSE T Wave [place] -22 degrees MUSE 11/28/2023 3:18 PM CDT 11/28/2023 3:27 PM CDT Impressions MUSE - 11/28/2023 3:27 PM CDT Sinus bradycardia with 1st degree A-V block Low voltage QRS Low anterior forces Nonspecific T wave abnormality When compared with ECG of 24-May-2023 12:12, [place] interval has increased T wave changes QT has shortened Reviewed by MARTHA Shah Narrative Procedure Note Prudencio Painting Jr., M.D. - 11/28/2023 IMPRESSION: Sinus bradycardia with 1st degree A-V block Low voltage QRS Low anterior forces Nonspecific T wave abnormality When compared with ECG of 24-May-2023 12:12, [place] interval has increased T wave changes QT has shortened Reviewed by MARTHA Shah Paola Solis APRN, C.N.P., D.N.P., M.S.N. ECG ORDERABLES Final Result Performing Organization Address City/[facility]/ZIP Co de Phone Number MUSE NA * Albumin, Random, Urine (03/10/2023 11:30 AM DRIER TRANSFER CAR OPERATOR) Microalbumin <12.0 mg/L 03/10/2023 11:54 AM DRIER TRANSFER CAR OPERATOR RDWG Comment:If clinically indica faviola, contact the lab for additional testing. Creatinine 112 mg/dL 03/10/2023 11:54 AM DRIER TRANSFER CAR OPERATOR RDWG Albumin/Creatinine Ratio <11 <17 mg/g 03/10/2023 11:54 AM DRIER TRANSFER CAR OPERATOR RDWG Comment: This ratio may not correspond with the reference range because one or both of the values used to calculate the ratio was above or below the quantification limits. Urine (Urine, Midstream) 03/10/2023 11:30 AM DRIER TRANSFER CAR OPERATOR 03/10/2023 11:30 AM DRIER TRANSFER CAR OPERATOR us Doug Lima M.D. LAB URINE ORDERABLES Final R esult [facility] [address] [place] [address], [facility] RDWG [facility] [place] [address] [place] [address] from Last 3 Months or Most Recently Relevant to Health Maintenance Insurance [facility] [address] [facility] [place] [address] [employer] Advance Directives For more information, please contact: [phone] * Full Code (Latest Code Status on File) Date Activated Date Inactivated Comments 11/28/2023 9:48 PM Question Answer Comments Full Code: Not Discussed Due to: Patient not available * Full Code Date Activated Date Inactivated Comments 05/23/2023 9:31 [...] Due to: Patient not available Care Teams Wrapping Clerk Relationship Specialty Start Date End Date Elsewhere, Pcp PCP - General Internal Medicine 10/03/23
--- OUTSIDE RECORDS SUMMARY | 2023-12-01 19:52 | XMS_ITS | Encounter Summary ---
Author Organization [facility] Address [address] [place] [address] Care Team Providers Care Chainstitch Pants Outseamer Name Role Phone Elsewhere, Pcp Primary Care Provider Unavailabl e Encounter Details Date Type Department Care Team (Latest Contact Info) Description 11/03/2023 Intake [facility] Social History Tobacco Use Types Packs/Day Years Used Date Smoking Tobacco: Never Passive Smoke Exposure: Never Smokeless Tobacco: Never Alcohol Use Standard Drinks/Week Comments Never 2 (1 standard drink = 0.6 oz pur e alcohol) [facility] Utilities Answer Date Recorded In the past 12 months has e electric, gas, oil, or water [employer] threatened to shut off services in your [...] PM CDT Legal Sex Male 6:41 AM ACCOUNTING MACHINE MECHANIC Gender Identity Male 07/26/2022 1:32 PM CDT Sexual Orientation Straight 07/26/2022 1: 32 PM CDT documented as of this encounter Plan of Treatment Upcoming Encounters Date Type Department Care Team (Latest Contact Info) Description 01/02/2024 11:30 AM ACCOUNTING MACHINE MECHANIC Clinical Communication Virtual Review in [place], [place] [address] [place] [phone] 01/05/2024 9:20 AM ACCOUNTING MACHINE MECHANIC Lab Department of Infusion Therapy in [place], [place] [address] [place] [phone] Vel Vinson M.D., M.B.A. [address] [place] [phone] 01/05/2024 10:15 AM ACCOUNTING MACHINE MECHANIC Appointment Department of Radiology, [facility], in [place], [place] [address] [place] [phone] Vel Vinson M.D., M.B.A. [address] [place] [phone] 01/05/2024 10:45 AM ACCOUNTING MACHINE MECHANIC Comprehensive Visit Section of Infectious Diseases in [place], [place] [address] [place] [address] Maddy Bingham P.A.-C. [address] [place] [phone] 01/05/2024 11:15 AM ACCOUNTING MACHINE MECHANIC Office Visit Department of Orthopedic Surgery in [place], [place] [address] [place] [phone] Vel Vinson M.D., M.B.A. [address] [place] [phone] 01/05/2024 2:30 PM ACCOUNTING MACHINE MECHANIC Comprehensive Visit Preoperative Evaluation Center in [place], [place] [address] [place] [phone] Vel Vinson M.D., M.B.A. [address] [place] [phone] 01/06/2024 7:25 AM ACCOUNTING MACHINE MECHANIC Hospital Encounter [facility] 02 4 AM ADMIT [address] [place] [address] Vel Vinson M.D., M.B.A. [address] [place] [phone] 01/06/2024 7:25 AM ACCOUNTING MACHINE MECHANIC - 01/06/2024 12:11 PM ACCOUNTING MACHINE MECHANIC Surgery [facility] MAIN OR [address] [place] [address] Vel Vinson M.D., M.B.A. [address] [place] [phone] ARTHROPLASTY REVISION FEMORAL+ACETABULAR HIP Scheduled Procedures Name Priority Associated Diagnoses Date/Ti me ARTHROPLASTY REVISION FEMORAL+ACETABULAR HIP Infection Total Hip Arthroplasty Subsequent Right 01/06/2024 7:25 AM ACCOUNTING MACHINE MECHANIC documented as of this encounter Visit Diagnoses Not on filedocumented in this encounter Care Teams Chainstitch Pants Outseamer Relationship Specialty Start Date End Date Elsewhere, Pcp PCP - General Internal Medicine 10/03/23 documented as of this encounter
--- OUTSIDE RECORDS SUMMARY | 2023-12-01 19:52 | XMS_ITS | Encounter Summary ---
Author Organization [facility] Address [address] [place] [id number] Care Team Providers Care Nurse Researcher Name Role Phone Elsewhere, Pcp Primary Care Provider Unavailabl e Reason for Visit * Reason Comments GI Bleeding * Auth/Cert (Routine) Specialty Diagnoses / Procedures Referred By Contjustyna t Referred To Contact Diagnoses Anemia Hemorrhage Gastrointestinal Procedures ER Referral ID Status Reason Start Date Expiration Date Visits Re quested Visits Authorized [id number] 1 1 Encounter Details Date Type Department Care Team (Latest Contact Info) Description 11/28/2023 2:49 PM CDT - Present Hospital Encounter [facility], [facility], [facility] Fourth Floor [address] [place] [phone] Paola Solis APRN, C.N.P., D.N.P., M.S.N. [address] [place] [phone] Theodore Dsouza M.D. [address] [place] [phone] Yola Triana M.D. [address] [place] [phone] Zahira Shaw APRN, C.N.P., D.N.P. [address] [place] [phone] Hemorrhage Gastrointestinal (Primary Dx); Anemia Social History Tobacco Use Types Packs/Day Years Used Date Smoking Tobacco: Never Passive Smoke Exposure: Never Smokeless Tobacco: Never Alcohol Use Standard Drinks/Week Comments Never 2 (1 standard drink = 0.6 oz pur e alcohol) [facility] Utilities Answer Date Recorded In the past 12 months has e [employer], gas, oil, or water [employer] threatened to shut off services in your [...] your living situation today? 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 - 12/01/2023 11:26 AM CDT RST Medicine 6 ([facility]) Progress Note SUBJECTIVE Feeling well today, denies any blood in stools. Enjoys prep. I have reviewed the current medication list. OBJECTIVE VITAL SIGNS Temperature: [36.5 ??C-36.6 ??C] 36.6 ??C Resp Rate: [16-21] 21 Blood Pressure: (98-130)/(52-62) 130/62 SpO2: [90 %-95 %] 92 % Pulse Rate: [59-72] 68 PHYSICAL EXAMINATION GEN: well-appearing, laying in bed HEENT: poor dentition ABD: soft, nontender NEURO: 0/5 strength in RUE flexion, 1/5 strength in RLE flexion, able to dorsiflex/plantarflex bilateral feet. Alert, oriented. CV: RRR, no murmurs DIAGNOSTICS I have independently reviewed chart history, vitals, labs, and imaging. ASSESSMENT / PLAN Mr. Lester is hospitalized on [place] [id number] ([facility]) for evaluation and management of Hemorrhage Gastrointestinal. PMHx of high-grade bilateral internal carotid artery stenosis s/p angioplasty of the R ICA (07/2022)c/b re-stenosis s/p drug-coated angioplasty (03/2023), left MCA infarct with residual expressive dysphasia and R sided hemiparesis, left ICA occlusion s/p thrombectomy and stenting (05/2023, on ASA monotherapy), HTN, HLD, DM2 (on insulin), MICHELET, PAD, R total hip arthroplasty c/b MSSA infection s/p expl ant and replacement (05/2023), chronic anticoagulation with Xarelto for DVT prophylaxis given immobility, recent GI bleed secondary to MW tear admitted 11/02- (EGD at [facility]) s/p 2u PRBC. Presented on 11/27 for bright red blood per rectum (2 episodes). Was hemodynamically stable in the ED, Hgb 9.7 (previously in 10 range), Xarelto held. Was admitted for monitoring. No ongoing hematochezia today but given second hospitalization with hematochezia and the need for chronic anticoagulatio n and ASA, we will pursue inpatient colonoscopy. #1 Hemorrhage Gastrointestinal - likely lower GI vs. History of MW tear #2 Chronic, normocytic anemia #3 Chronic anticoagulation with Xarelto Last colonoscopy 2015 (hyperplastic polyp), due for repeat colo in 2020 (not yet done). On Xarelto per ortho recommendations as DVT ppx while awaiting R hip arthroplasty and is non-weight bearing in RLE. Last seen by ortho outpatient 08/2023 with plan of reimplanation of R hip in 3-4 mo. PLAN: - continue holding Xarelto 10 mg daily (home), resume DVT ppx as trial with lovenox - colonoscopy tomorrow, NPO @ [facility], on prep and clear liquid diet today - continue IV PPI BID for now #4 Bilateral ICA stenosis s/p multiple angioplasty/stent placement - continue home ASA - continue home keppra 750 mg BID - outpatient follow-up with neurology #5 HTN #6 HLD - continue home lisinopril - continue home atorvastatin #7 T2DM - continue ISS (on home NPH 8U qAM and 4U qPM) - recommend outpatient downtitration of insulin/initiation of oral diabetes medications Diet: Adult Diet Clear Liquid; Red Dye Restriction Tubes/lines: PIV VTE prophylaxis: enoxaparin Current Activity/Mobility: BMAT Level 4 (Able to stand and walk; needs staff assist if fall risk factors identified) Fall Injury Prevention: I have discussed My Plan for Safe Activity with the patient. Disposition: Home with Home Health and with Hospice Stable to discharge criteria (not yet met): Labs and procedures The patient was seen and evaluated with Dr. Triana, HIM hr business partner consultant. I personally spent a total of 50 minutes providing and coordinating care today. * Vishnu Simon M.SWilma, R.N. - 12/01/2023 11:22 AM CDT SUBJECTIVE Discharge planning - SNF Return OBJECTIVE [id number] ASSESSMENT / PLAN ASSESSMENT Patient was not assessed at this time. PLAN Patient to return to previous SNF. Please see below regarding the plan: Patient to return to: Destination - Admitted Since 11/28/2023 Service Provider Services Address Phone Fax Patient Preferred [facility] [address] [place] [phone] -- Contact: Intake Patient has a MA bedhold. Facility can manage IV antibiotics. Facility cannot manage a wound vac. Facility cannot accept weekend readmissions. COVID screening needed before patient can return: no Facility prefers patient return by 4:00 pm. Facility oxygen provider is [facility] (phone [phone], fax [phone]) . Was the patient on oxygen at your facility: no The patient is being prepared to discharge on 12/03/2023 at 10:00 am if medically ready for transfer. Contact CASE MANAGEMENT if time needs to be changed. Transportation will be provided by [employer] ([phone]). They will pick the patient up in his room. Transportation will be paid forby [place]. Transport oxygen not needed. NURSING: Complete documentation in the Discharge Navigator including Nursing Report Info and Facility/Next Level of Care Info Contact facility to give report on morning of discharge Send required packet of dismissal information with patient, including After Visit Summary and advance directive. If transport oxygen is needed, work with primary service and respiratory therapy to obtain an oxygen prescription. PRIMARY SERVICE: Provide written prescriptions for all narcotics If transport oxygen is needed, work with nursing and respiratory therapy to complete an oxygen prescription. After Visit Summary to include: All discharge medications including dosage, times for administration, diagnosis, and stop date. Ongoing care - wound care, infection precautions and phone numbers to call. CASE MANAGEMENT: Reviewed patient's insurance coverage for the services noted above. The patient appear(s) to have an understanding of this. Will continue to follow and assist if needs arise. Darvin Mcdonough, R.N. 12/01/23 * Theodore Dsozua M.D. - 11/30/2023 1:01 PM CDT T Medicine 6 ([facility]) Progress Note SUBJECTIVE No events overnight. Having brown bowel movements. Feeling well. Hemoglobin has remained stable. Extensive conversation with the patient's sister today, she raise concerns about having outpatient colonoscopy for evaluation of this bleed. Notably, patient has been off of his Xarelto, and in this setting his bleeding has stopped. Last colonoscopy was 2015 which showed hyperplastic polyp, he was recommended to have repeat in 5 years which was not completed. Patient notably does have a significant stool burden and will start a bowel prep. Will ask her our GI colleagues if an inpatient colonoscopy would be possible. While his hematochezia has stopped, who stopped in the setting of also stopping his anticoagulation, which is not ideal given his medical comorbidities, prior stroke, and need for anticoagulation in the setting when upcoming hip replacement procedure. I have reviewed the current medication list. OBJECTIVE VITAL SIGNS Temperature: [36.2 ??C-36.7 ??C] 36.2 ??C Resp Rate: [16] 16 Blood Pressure: (120-151)/(67-77) 149/67 SpO2: [94 %-99 %] 94 % Pulse Rate: [55-61] 56 PHYSICAL EXAMINATION General: Middle-age man, appearing stated age. Neuro: Expressive aphasia, right-sided hemiparesis Pulm: Breathing comfortably on room air. Lungs clear to auscultation Cardiovascular: Regular rate rhythm Abdomen: Soft, nontender, nondistended Lower extremity: +1 pitting edema bilaterally to mid maloney DIAGNOSTICS I have independently reviewed the labs and CT abdomen pelvis. Per my read, noted enlarged bladder in stool burden was stool noted up to ascending colon. ASSESSMENT / PLAN Mr. 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 He presents from his intermediate facility today for concerns of 2 escamilla colored stools. In theemergency room, he was noted to be hemodynamically stable with hemoglobin of 9.7. Patient was notedto have to have 3 additional bloody bowel movement concerning for GI bleeding, and was admitted forfurther monitoring. Since admission, patient has not had any further hematochezia. He has remained hemodynamically stable with a stable hemoglobin in the setting of holding his Xarelto. # Concern for Hemorrhage Gastrointestinal- query diverticular bleed versus upper GI bleed # Normocytic anemia # Melanotic stools # Recent history of GI bleed secondary to Neymar-Corado tear # Positive guaiac Assessment: Hemoglobin stable since admission with associated escamilla colored/blood-tinged stools noted while he was in the emergency room on 11/27. Notably, he was hospitalized locally at [facility] from 11/02-11/06 for concerns of upper GI bleeding from a Neymar-Corado tear in the setting of a viral gastroenteritis. At that time he required 2 units PRBCs and was discharged with b.i.d.PPI. Patient remains on aspirin due to his prior stroke, and is on prophylactic dosing of rivaroxaban due to relative immobility. I suspect he had a lower GI bleed and that this current episode is different from his prior. Patient's last colonoscopy was in 2015 which showed hyperplastic polyp, he was recommended to have repeat colonoscopy in 5 years (2020), but this was not done. There are multiple potential etiologies 1st hematochezia, including internal hemorrhoids, diverticulosis, AVM, polyp or malignancy. While the patient's bleeding has stopped, it is stopped in the setting of stopping his anticoagulation. Plan: -- Initiate bowel prep (Patient has significant stool burden regardless, but may also benefit from an inpatient colonoscopy) -- hold rivaroxaban for now as he may undergo inpatient colonoscopy -- resume home aspirin -- iron studies not consistent with iron deficiency anemia. B12 normal -- transition back to oral PPI 40 mg b.i.d. -- continue Carafate 4 times daily for another week (per previous outside GI recommendations) -- clear liquid diet # Hx of High-grade bilateral internal carotid artery stenosis status post angioplasty of the right internal carotid artery (07/2022) complicated by restenosis status post drug coated angioplasty (03/2023) # Left MCA infarct and total occlusion of left ICA status post thrombectomy of L M2 and stenting ofleft ICA (05/2023, continues on aspirin as monotherapy)- secondary to arthroplasty explant and placement of articulating antibiotic spacer # Residual expressive aphasia and right hemiparesis # History of seizure Assessment: Stable. Last saw Neurology in September of 2023 with recent Doppler ultrasound showing patency of left ICA stent and restenosis of right carotid stent. Neurosurgery did not recommend retreatment of the right carotid restenosis, and in the absence of any new symptoms, with a follow bilateral carotid ultrasound in 6-12 months has been recommended. He has been switched to monotherapy with aspirin. He also continues on Xarelto for DVT prophylaxis in setting of immobility. Plan: -- outpatient follow-up with Neurology -- EEG in 12 months to assess ongoing Keppra -- continue home Keppra 750 mg b.i.d. -- continue aspirin 81 mg -- hold Xarelto for now # Hypertension # Hyperlipidemia # PAD # DVT prophylaxis Assessment: Stable. Plan: -- continue home lisinopril, atorvastatin, aspirin -- continue to hold Xarelto for now # Type 2 diabetes (A1c 6.3%) Assessment: Stable. Plan: -- q.i.d. glucose checks -- continue sliding scale moderate correction insulin # Right total hip arthroplasty infected with MSSA s/p arthroplasty explant with replacement of articulating antibiotic spacer 05/23/2023 complicated by massive stroke Assessment: Stable. Infectious diseases signed off. Plan: -- continue to monitor # MICHELET Assessment: Home CPAP Plan: -- unclear if patient tolerates (given previous noncompliant notes)- please evaluate in a.m. DIET: Clear Liquid; Red Dye Restriction TUBES/LINES: PIV VTE PROPHYLAXIS: SCD's CODE STATUS: Full Code BASELINE MOBILITY: BMAT Level 1 (Bedbound) DISPOSITION: Jail Facility Total time spent with the patient around 50 minutes with more than 50% of time spent in counseling,coordination of care, explanation of plan of care, chart review, and [id number] interview. Theodore Dsouza M.D. 11/30/23 1:01 PM CDT * Theodore Dsouza M.D. - 11/29/2023 2:19 PM CDT RST Medicine 6 ([facility]) Progress Note SUBJECTIVE No events overnight. Has not a bowel today. Feeling well. Hemoglobin has remained stable. I have reviewed the current medication list. OBJECTIVE VITAL SIGNS Temperature: [36.2 ??C-36.6 ??C] 36.3 ??C Resp Rate: [16-20] 16 Blood Pressure: (100-151)/(66-99) 143/66 SpO2: [93 %-100 %] 95 % Height: [180.3 cm] 180.3 cm Weight: [93.7 kg] 93.7 kg BSA (Calculated - sq m): [2.16 sq meters] 2.16 sq meters BMI (Calculated): [28.8 kg/m??] 28.8 kg/m?? Pulse Rate: [47-66] 57 PHYSICAL EXAMINATION General: Middle-age man, appearing stated age. Neuro: Expressive aphasia, right-sided hemiparesis Pulm: Breathing comfortably on room air. Lungs clear to auscultation Cardiovascular: Regular rate rhythm Abdomen: Soft, nontender, nondistended Lower extremity: +1 pitting edema bilaterally to mid maloney DIAGNOSTICS I have independently reviewed the labs and CT abdomen pelvis. Per my read, noted enlarged bladder in stool burden was stool noted up to ascending colon. ASSESSMENT / PLAN Mr. 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 He presents from his intermediate facility today for concerns of 2 escamilla colored stools. In theemergency room, he was noted to be hemodynamically stable with hemoglobin of 9.7. Patient was notedto have to have 3 additional bloody bowel movement concerning for GI bleeding, and was admitted forfurther monitoring. Since admission, patient has not had any further hematochezia. He has remained hemodynamically stable with a stable hemoglobin. # Concern for Hemorrhage Gastrointestinal- query diverticular bleed versus upper GI bleed # Normocytic anemia # Melanotic stools # Recent history of GI bleed secondary to Neymar-Corado tear # Positive guaiac Assessment: Hemoglobin stable since admission with associated escamilla colored/blood-tinged stools noted while he was in the emergency room on 11/27. Notably, he was hospitalized locally at [facility] from 11/02-11/06 for concerns of upper GI bleeding from a Neymar-Corado tear in the setting of a viral gastroenteritis. At that time he required 2 units PRBCs and was discharged with b.i.d.PPI. Patient remains on aspirin due to his prior stroke, and is on prophylactic dosing of rivaroxaban due to relative immobility. I suspect he had a lower GI bleed and that this current episode is different from his prior. On admission, GI bleeding was Kimo sided and recommended trending hemoglobin and monitoring closely. Plan: -- hold rivaroxaban for now, if hemoglobin remains stable on 11/29, we can resume this -- resume home aspirin -- trend hemoglobin, with repeat CBC in a.m. -- iron studies not consistent with iron deficiency anemia. B12 normal -- transition back to oral PPI 40 mg b.i.d. -- continue Carafate 4 times daily for another week (per previous outside GI recommendations) -- if he has further hematochezia, can consider inpatient colonoscopy -- avoid NSAIDs -- regular diet # Hx of High-grade bilateral internal carotid artery stenosis status post angioplasty of the right internal carotid artery (07/2022) complicated by restenosis status post drug coated angioplasty (03/2023) # Left MCA infarct and total occlusion of left ICA status post thrombectomy of L M2 and stenting ofleft ICA (05/2023, continues on aspirin as monotherapy)- secondary to arthroplasty explant and placement of articulating antibiotic spacer # Residual expressive aphasia and right hemiparesis # History of seizure Assessment: Stable. Last saw Neurology in September of 2023 with recent Doppler ultrasound showing patency of left ICA stent and restenosis of right carotid stent. Neurosurgery did not recommend retreatment of the right carotids restenosis, and in the absence of any new symptoms, with a follow bilateral carotid ultrasound in 6-12 months has been recommended. He has been switched to monotherapy with aspirin. He also continues on Xarelto for DVT prophylaxis in setting of immobility. Plan: -- outpatient follow-up with Neurology -- EEG in 12 months to assess ongoing Keppra -- continue home Keppra 750 mg b.i.d. -- continue aspirin 81 mg -- hold Xarelto for now # Hypertension # Hyperlipidemia # PAD # DVT prophylaxis Assessment: Stable. Plan: -- continue home lisinopril, atorvastatin -- continue to hold Xarelto and aspirin for now # Type 2 diabetes (A1c 6.3%) Assessment: Stable. Plan: -- q.i.d. glucose checks -- continue sliding scale moderate correction insulin # Right total hip arthroplasty infected with MSSA s/p arthroplasty explant with replacement of articulating antibiotic spacer 05/23/2023 complicated by massive stroke Assessment: Stable. Infectious diseases signed off. Plan: -- continue to monitor # MICHELET Assessment: Home CPAP Plan: -- unclear if patient tolerates (given previous noncompliant notes)- please evaluate in a.m. DIET: Adult Diet Full Liquid; Red Dye Restriction TUBES/LINES: PIV VTE PROPHYLAXIS: SCD's CODE STATUS: Full Code BASELINE MOBILITY: BMAT Level 1 (Bedbound) DISPOSITION: Jail Facility Total time spent with the patient around 35 minutes with more than 50% of time spent in counseling,coordination of care, explanation of plan of care, chart review, and [id number] interview. Theodore Dsouza M.D. 11/29/23 2:19 PM CDT * Terrance Joseph PharmMayela, R.Ph., BCPS - 11/29/2023 11:09 AM CDT Images from the original note were not included. Admission Medication History Note Adherence issues: Unable to assess Medication list source: [facility] Records Prior to Admission Medications Med List Status: Pharmacy Complete Set By: Terrance Joseph, PharmBelkisD., R.Ph., BCPS at 11/29/2023 11:09 AM Status Comment 11/29/2023 11:[address] [facility] med list Taking? Last Dose Informant Start Date End Date LT acetaminophen (TYLENOL) 500 mg tablet 11/28/2023 at 8:00 AM -- 03/20/23 -- Take 2 tablets (1,000 mg total) by mouth every 6 (six) hours as needed for mild pain or score 1-3 of 10 or moderate pain or score 4-6 of 10. Patient taking differently: Take 1,000 mg by mouth 3 (three) times a day. aspirin 81 mg chewable tablet () -- -- 06/25/23 08/24/23 Chew 1 tablet (81 mg total) daily. Notes: Taking atorvastatin (LIPITOR) 20 mg tablet 11/27/2023 -- 06/25/23 -- Take 1 tablet (20 mg total) by mouth at bedtime. blood glucose ctl high,nml,low solution -- Self 07/29/22 -- Glucose control solution provides an easy way to ensure accurate blood glucose testing. Notes: DX: Diabetes Mellitus Type 2 - E11.9. Pharmacist may substitute brand, needle/syringe size of diabetic supply or adjust quantities down per patient preference or insurance coverage. blood sugar diagnostic strips -- Self 07/29/22 -- 1 test daily. blood-glucose meter (FreeStyle [place]) kit -- Self 07/29/22 -- Use as instructed carboxymethylcellulose (REFRESH PLUS) 0.5 % ophthalmic solution -- -- 06/25/23 -- Administer 2 drops into both eyes 4 (four) times a day as needed for dry eyes. flash glucose scanning reader (FreeStyle Jessica 2 [place]) [facility] -- Self 08/01/22 -- 1 each (1 Device total) continuously. insulin NPH (NovoLIN N FlexPen) 100 unit/mL (3 mL) injection at 8:00 AM -- 06/25/23 -- Inject 10-20 Units under the skin 2 (two) times a day with meals. Patient taking differently: Inject 4-8 Units under the skin 2 (two) times a day with meals. takes 8units in the AM and 4 units in the afternoon lancets -- Self 07/29/22 -- 1 each daily. levETIRAcetam (Keppra) 100 mg/mL solution 11/29/2023 -- 06/25/23 -- Take 7.5 mL (750 mg total) by mouth 2 (two) times a day. lisinopriL 5 mg tablet 11/28/2023 at 8:00 AM -- 09/03/23 -- Take 5 mg by mouth daily. Novofine Autocover 30 gauge x 1/3 needle -- -- 06/25/23 -- nystatin (Nystop) 100,000 unit/gram powder at 8:00 AM -- -- -- Apply 1 Application topically 2 (two) times a day. Apply to rash. pantoprazole (Protonix) 40 mg EC tablet at 8:00 AM -- -- -- Take 40 mg by mouth 2 (two) times a day before morning and evening meals. Notes: BID until 12/06 then planned to decrease to once daily pen needle, diabetic (BD Ultra-Fine Short Pen Needle) 31 gauge x 5/16 needle -- -- 12/31/22 -- 1 Injection daily. Notes: ICD-10:[E11.65] Length of Need:Lifetime, Insulin Dependent: Yes Last Office Visit:11/29/22 Last A1c 11.4 on 10/09/22 Pharmacy may substitute brand/adjust qty per pt preference or insurance coverage polyethylene glycol (Miralax) 17 gram powder packet at 8:00 AM -- -- -- Take 17 g by mouth daily. Dissolve each 17 g dose in 240 mLs (8 ounces) of beverage. rivaroxaban (Xarelto) 10 mg tablet 11/28/2023 at 8:00 AM -- 08/28/23 08/27/24 Take 1 tablet (10 mg total) by mouth daily. sennosides (Senokot) 8.6 mg tablet at 8:00 AM -- -- -- Take 8.6 mg by mouth 2 (two) times a day. sucralfate (Carafate) 1 gram tablet at 8:00 AM -- -- -- Take 1 g by mouth every 6 (six) hours. Doron Joseph Pharm.D., R.Ph., BCPS * Terrance Joseph Pharm.D., R.Ph., BCPS - 11/29/2023 8:42 AM CDT Pharmacist Progress Note Reason for admission: Hemorrhage Gastrointestinal PMH: high-grade b/l internal carotid artery stenosis s/p angioplasty of R internal carotid artery (07/2022) c/b restenosis s/p drug coated angioplasty (03/2023), L MCA infarct and total occlusion of L ICA s/p thrombectomy lf L M2 and stenting of L ICA, continues on aspirin monotherapy, residual expressive aphasia and R hemiparesis, HTN, HLD, DM2 (on insulin), MICHELET, PAD, R ISRRAEL c/b infection with MSSAs/p arthroplasty explant with replacement of articulating antibiotic spacer c/b massive stroke, hx of DVT, recent GI bleed 2/2 Neymar- Corado tear OBJECTIVE Home medications: Held: aspirin, rivaroxaban, NPH insulin Changed: none Renal Status Estimated Creatinine Clearance: 122.7 mL/min (by C-G formula based on SCr of 0.87 mg/dL). Meds Renally adjusted: none VTE Prophylaxis: held for bleeding ASSESSMENT / PLAN GI bleed - recent GI bleed 2/2 Neymar-Corado tear at [facility]. Holding aspirin,rivaroxaban for now. Hgb 10.3 this morning. Blood pressures stable 100s-140s systolic. Currently receiving pantoprazole 40 mg IV q12h. DM2 - holding home NPH insulin. Has moderate correctional scale aspart ordered with meals. Blood glucose < 180 since admission. Doron Joseph Pharm.D., R.Ph., BCPS documented in this encounter H&P Notes * Zahira Shaw APRN, C.N.P., D.N.P. - 11/28/2023 8:44 PM CDT [facility] 6 ([facility]) Admission Note SUBJECTIVE CHIEF COMPLAINT / REASON FOR VISIT 2 episodes of escamilla colored stools HISTORY OF PRESENT ILLNESS Mr. Estevan Lester is a 58 y.o. male who presents with concerns of GI bleeding with 2 reported escamilla colored stools at care facility earlier today, along with color changes noted yesterday. 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 Per chart review, staff at the patient's intermediate facility noticed a change in stool color yesterday. He also had 2 escamilal colored stools today. Hemoglobin at the facility was 9.2. He was ultimately transferred to [place]'s ED for further evaluation. In the ED, he remained hemodynamically stable, but was noted to have intermittent bradycardia with heart rates in the low 60s to mid 50s. He was oxygenating well on room air. Laboratory data was significant for hemoglobin of 9.7 (previously 10.5 on 11/24), platelets 158, unremarkable BMP, alkaline ph osphatase elevated 171, and albumin 3.4. 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 ECG showed sinus bradycardia with first-degree AV block with nonspecific T-wave abnormalities. Patient was noted to have to have 3 additional bloody bowel movementconcerning for GI bleeding. He received 500 cc fluid bolus, oral Protonix, and was ultimately admitted to [place] [address] for ongoing evaluation management. Patient is evaluated at the bedside, on [address] 4, in room 255. He is resting comfortably in bed,no acute distress. He endorses the aforementioned story above. He denies lightheadedness, dizziness, fatigue, or any changes in GI/ status apart from the blood-tinged stools which seems started yesterday. Denies diarrhea or constipation. Unclear if he has hemorrhoids. Denies any recent use of NSAIDs, alcohol, or tobacco. Denies nausea or hematemesis. Patient continues to reside in his skilled living facility. Social history: Self-employed; never , 2 kids; primarily wheelchair currently. Meds, allergies, medical, surgical, social & family histories have been reviewed & updated as necessary. Current Outpatient Medications on File Prior to Encounter: levETIRAcetam (Keppra) 100 mg/mL solution, Take 7.5 mL (750 mg total) by mouth 2 (two) times a day., 11/29/2023 acetaminophen (TYLENOL) 500 mg tablet, Take 2 tablets (1,000 mg total) by mouth every 6 (six) hoursas needed for mild pain or score 1-3 of 10 or moderate pain or score 4-6 of 10. (Patient taking differently: Take 1,000 mg by mouth every 6 (six) hours as needed for mild pain or score 1-3 of 10 or moderate pain or score 4-6 of 10. 3 times daily) amitriptyline 2%,gabapentin 5%,lidocaine 5%-vanicream, Apply topically 2 (two) times a day. Apply to affected area. (Patient not taking: Reported on 09/24/2023), Unknown aspirin 81 mg chewable tablet, Chew 1 tablet (81 mg total) daily. atorvastatin (LIPITOR) 20 mg tablet, Take 1 tablet (20 mg total) by mouth at bedtime. bisacodyL (DULCOLAX) 5 mg EC tablet, Take 2 tablets (10 mg total) by mouth 2 (two) times a day as needed for constipation. blood glucose ctl high,nml,low solution, Glucose control solution provides an easy way to ensure accurate blood glucose testing. blood sugar diagnostic strips, 1 test daily. blood-glucose meter (MitrAssistyle [place]) kit, Use as instructed calcium carbonate (TUMS) 500 mg (200 mg calcium) chewable tablet, Administer 1 tablet (200 mg of calcium total) via gastric tube every 2 (two) hours as needed for indigestion or heartburn. carboxymethylcellulose (REFRESH PLUS) 0.5 % ophthalmic solution, Administer 2 drops into both eyes 4 (four) times a day as needed for dry eyes. flash glucose scanning reader (Azimo Jessica 2 Cubero) misc, 1 each (1 Device total) continuously. hydrocortisone 1 % ointment, Apply topically as needed. insulin NPH (NovoLIN N FlexPen) 100 unit/mL (3 mL) injection, Inject 10-20 Units under the skin 2 (two) times a day with meals. lancets, 1 each daily. lisinopriL 5 mg tablet, Take 5 mg by mouth daily. Novofine Autocover 30 gauge x 1/3 needle, nystatin (Mycostatin) 100,000 unit/gram cream, Apply 1 Application topically as needed. oxyCODONE (Roxicodone) 5 mg immediate release tablet, Take 5 mg by mouth as needed. pen needle, diabetic (BD Ultra-Fine Short Pen Needle) 31 gauge x 5/16 needle, 1 Injection daily. rivaroxaban (Xarelto) 10 mg tablet, Take 1 tablet (10 mg total) by mouth daily. zinc oxide 20 % ointment, Apply topically as needed. OBJECTIVE VITAL SIGNS Temperature: [36.4 ??C-36.6 ??C] 36.4 ??C Resp Rate: [18-20] 18 Blood Pressure: (100-151)/(67-99) 151/67 SpO2: [93 %-100 %] 100 % Height: [180.3 cm] 180.3 cm Weight: [93.7 kg] 93.7 kg BSA (Calculated - sq m): [2.16 sq meters] 2.16 sq meters BMI (Calculated): [28.8 kg/m??] 28.8 kg/m?? Pulse Rate: [47-66] 62 PHYSICAL EXAMINATION General: 58-year-old male, appearing stated age; expressive aphasia and right- sided hemiparesis appreciated, consistent with recent stroke. Alert and oriented x 3, no apparent distress. Skin: No rashes or open ulcerations were seen. ENT: Oral mucosa is pink and moist, without any ulcerations. Dentition in poor repair, with multiple fractured teeth. Eyes: EOMs intact, pupils equal. No scleral icterus. Vessels: Bilateral lower extremities edema (+1); Pedal pulses palpable and equal bilateral. Heart: Regular rate and rhythm without murmurs rubs or gallops. Lungs: Clear to auscultation bilaterally. Abdomen: Soft, nontender, nondistended, bowel sounds present. Neuro: Cranial nerves 2-12 intact; Right-sided hemiparesis DIAGNOSTICS I have independently reviewed the labs, ECG, xray, and diagnostics from electronic health record. ASSESSMENT / PLAN Mr. 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 He presents from his intermediate facility today for concerns of 2 escamilla colored stools as wellas drop in hemoglobin to 9.2. In the ED, he remained hemodynamically stable, but was noted to have intermittent bradycardia with heart rates in the low 60s to mid 50s. Laboratory data was significant for hemoglobin of 9.7 (previously 10.5 on 11/24), platelets 158, unremarkable BMP, alkaline phosphatase elevated 171, and albumin 3.4. 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 ECG showed sinus bradycardia with first-degree AV block with nonspecific T-wave abnormalities. Patient was noted to have to have 3 additional bloody bowel movement concerning for GI bleeding. He received 500 cc fluid bolus, oral Protonix, and was ultimately admitted to [place] [address] for ongoing evaluation management. # Concern for Hemorrhage Gastrointestinal- query diverticular bleed versus upper GI bleed # Normocytic anemia # Melanotic stools # Recent history of GI bleed secondary to Neymar-Corado tear # Positive guaiac Assessment: Hemoglobin stable since admission, but down from a couple days ago (previously 10.5--> 9.7) with associated escamilla colored/blood-tinged stools. Previously mentioned, he was hospitalized locally at [facility] from 11/02-11/06 for concerns of upper GI bleeding hypotension, found to have a Neymar Corado tear. He was transfused with 2 units RBCs and continued on PPI. the remains concerns that he has ongoing bleeding from the source versus a possible diverticular source given the bright red color (reported). Outside EGD revealed bleeding Neymar-Corado tear. CT angio negative. GI bleed was curbside added and recommended trending hemoglobin, continuing IV PPI, and closely monitoring. Could consider adding EGD/colonoscopy tomorrow versus Friday pending status. Plan: -- hold rivaroxaban for now -- hold home aspirin -- trend hemoglobin, with repeat CBC in a.m. -- follow-up iron studies, ferritin, folate, and B12 -- continue IV PPI 40 mg b.i.d. -- continue Carafate 4 times daily for another week (per previous outside GI recommendations) -- consider ordering inpatient EGD/colonoscopy tomorrow versus Friday if needed (according to GI bleed) -- avoid NSAIDs -- regular diet -- continue to reach out to GI bleed Team # Hx of High-grade bilateral internal carotid artery stenosis status post angioplasty of the right internal carotid artery (07/2022) complicated by restenosis status post drug coated angioplasty (03/2023) # Left MCA infarct and total occlusion of left ICA status post thrombectomy of L M2 and stenting ofleft ICA (05/2023, continues on aspirin as monotherapy)- secondary to arthroplasty explant and placement of articulating antibiotic spacer # Residual expressive aphasia and right hemiparesis # History of seizure Assessment: Stable. Last saw Neurology in September of 2023 with recent Doppler ultrasound showing patency of left ICA stent and restenosis of right carotid stent. Neurosurgery did not recommend retreatment of the right carotids restenosis, and in the absence of any new symptoms, with a follow bilateral carotid ultrasound in 6-12 months has been recommended. He has been switched to monotherapy with aspirin. He also continues on Xarelto for DVT prophylaxis in setting of immobility. Plan: -- outpatient follow-up with Neurology -- EEG in 12 months to assess ongoing Keppra -- continue home Keppra 750 mg b.i.d. -- hold baby aspirin and Xarelto for now due to concerns for GI bleeding # Hypertension # Hyperlipidemia # PAD # DVT prophylaxis Assessment: Stable. Plan: -- continue home lisinopril, atorvastatin -- continue to hold Xarelto and aspirin for now # Type 2 diabetes (A1c 6.3%) Assessment: Stable. Plan: -- q.i.d. glucose checks -- continue sliding scale moderate correction insulin # Right total hip arthroplasty infected with MSSA s/p arthroplasty explant with replacement of articulating antibiotic spacer 05/23/2023 complicated by massive stroke Assessment: Stable. Infectious diseases signed off. Plan: -- continue to monitor # MICHELET Assessment: Home CPAP Plan: -- unclear if patient tolerates (given previous noncompliant notes)- please evaluate in a.m. DIET: Adult Diet Full Liquid; Red Dye Restriction TUBES/LINES: PIV VTE PROPHYLAXIS: SCD's CODE STATUS: Full Code BASELINE MOBILITY: BMAT Level 1 (Bedbound) DISPOSITION: Jail Facility The patient was seen and evaluated with Dr. Weiner, HIM hr business partner consultant. I personally spent a total of 55 minutes providing and coordinating care today. documented in this encounter Consult Notes * Julianne Rodrigez R.N. 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 Language: Turkmen Outside Physical Damage Appraiser Services Used: No Person(s) present during interview: Person(s) Present During Interview: patient History of Present Illness #1 Hemorrhage Gastrointestinal Social History Marital Status: Single Finance/Insurance Primary insurance: [facility] Secondary insurance: N/A benefits: No Advance Directives Legal Decision Maker: Self Advance Directives Status: Not Activated OBJECTIVE Baseline Functional Status Baseline Activities of Daily Living Mobility: Requires aide of device Dressing: Needs assistance Feeding: Independent Bathing: Needs assistance Grooming: Needs assistance Toileting: Needs assistance Behavior: Appropriate, Pleasant, Calm, Cooperative, Oriented Communication: Can write, Talks, Understands speaking, Understands Turkmen, Reads Shopping: Needs assistance Medication Management: Needs assistance Who is managing your medication at home?: Other (Comment) (SNF) Housekeeping: Needs assistance Meal Prep: Needs assistance Assistive Devices: Wheelchair - manual Transportation: Wheelchair van Managing Finances: Independent Baseline Services/Resources Primary care clinic and provider: ELSEWHERE, PCP Additional Resources: n/a Anticipated Needs Functional Status: Medication set-up/administration, Housekeeping, Shopping, Meal preparation, Transportation use (drive car, use taxi/bus), Bathing, Dressing, Grooming/hygeine, Toileting, Transfer to/from bed, chair, etc., Mobility Assistive Devices: None Anticipated Modifications to the Patient's Home: None Transportation Needs: Wheelchair van Does the patient need discharge transport arranged?: Yes Has discharge transport been arranged?: No Anticipated Discharge Destination: Jail Facility ASSESSMENT / PLAN Assessment: The sap business objects consultant met with Estevan Lester to discuss his current hospitalization and home going needs. The patient was unaccompanied. The patient was was a reliable historian. The role of sap business objects consultant was reviewed. The patient reviewed his prior level of care and support system. The patient receives support from the intermediate facility staff. The patient shared that he has been at [facility] and plans on returning there when medically ready to discharge. Housekeeping, grocery shopping, meal prep, and other household responsibilities have previously been completed by patient and intermediate facility staff . sap business objects consultant discussed the patient's potential needs at dismissal based on their home setting, previous needs and responsibilities, homebound status, and relevant assessments with the patient. The patient will be safe and supported to return to a [facility] when medically ready. Support will be provided by intermediate facility staff. The patient demonstrated understanding when discussing his home going plans and anticipated needs. At this time, the care team anticipates the patient requires the following service(s) to be reconnected: intermediate facility. The patient identified the following as their current vendor(s): [facility]. After reviewing the patient's chart and meeting with the patient, the sap business objects consultant deemed the LACE+/readmission questions were not necessary. The patient reports understanding that he will dismiss from the hospital when medically stable. Pending hospital course and medical readiness, no barriers to dismissal have been identified at this time. Plan: The patient agrees with the following plan. Patient's anticipated discharge disposition is: Jail Facility: [facility]. Unable to return on the weekend Transportation upon dismissal will be Care Management arranged--will need wheelchair transport arranged . sap business objects consultant recommended n/a . sap business objects consultant provided information regarding the dismissal process. sap business objects consultant placed or requested the following hospital-based consult orders and/or referrals: None. sap business objects consultant will continue to assess for homegoing needs with the interdisciplinary team. sap business objects consultant encouraged the patient to reach out with any questions/concerns. 8. Patient to return to: Destination - Admitted Since 11/28/2023 Service Provider Services Address Phone Fax Patient Preferred [facility] [address] [place] [address] [phone] -- Contact: Intake Patient has a MA bedhold. Facility can manage IV antibiotics. Facility can manage a wound vac. Facility preferred wound vac type: n/a Facility cannot accept weekend readmissions. COVID screening needed before patient can return: no Facility prefers patient return by 4:00 PM. Facility oxygen provider is [facility] (phone [phone], fax [phone]) . Was the patient on oxygen at your facility: no Transportation to be provided by wheelchair van transport. CASE MANAGEMENT: to arrange transportation and transport oxygen if needed. NURSING: Complete documentation in the Discharge Navigator including Nursing Report Info and Facility/Next Level of Care Info Contact facility to give report on morning of discharge Send required packet of dismissal information with patient, including After Visit Summary and advance directive. If transport oxygen is needed, work with primary service and respiratory therapy to obtain an oxygen prescription. PRIMARY SERVICE: Provide written prescriptions for all narcotics If transport oxygen is needed, work with nursing and respiratory therapy to complete an oxygen prescription. After Visit Summary to include: All discharge medications including dosage, times for administration, diagnosis, and stop date. Ongoing care - wound care, infection precautions and phone numbers to call. CASE MANAGEMENT: Reviewed patient's insurance coverage for the services noted above. The patient appear(s) to have an understanding of this. Will continue to follow and assist if needs arise. Signed by: Julianne Rodrigez R.N. 11/29/2023 * Anneliese Bates P.T., D.P.T. - 11/29/2023 10:20 AM CDT Physical Therapy Inpatient Evaluation/Treatment SUBJECTIVE Patient's Name: Estevan Lester Referring/Attending Provider: Theodore Dsouza M.D. Reason for Referral: Physical Therapy Evaluate and Treat Pertinent Medical / Surgical History: Estevan Lester has a past medical history of Amblyopia Bilateral, Apnea Sleep Obstructive, Cataract, Diabetes Mellitus NOS, Diabetes Mellitus Type 2 (HCC), Hyperlipidemia, Hypertension NOS, Other Injury Of Unspecified Body Region, Polyp Colon, Sleep Apnea, and Stroke (HCC). Estevan Lester has a past surgical history that includes Closed Reduction Of Dislocation Of Hip (03/25/2009); Closed Reduction Of Dislocation Of Hip (03/06/2009); Closed reduction radial shaft fracture w/ manipulation (12/31/2003); other converted shx (see comment) (01/17/2004); other converted shx (see comment) (02/02/2004); other converted shx (see comment) (01/02/2004); other converted shx (see comment) (2004); other converted shx (see comment) (01/06/2004); other converted shx (see comment) (02/03/2009); other converted shx (see comment) (01/04/2004); Joint replacement; Arthroplasty - Resection Hip (Right, 05/23/2023); REMOVAL HARDWARE PELVIS (Right, 05/23/2023); FLAP PEDICLE ROTATIONAL LOWER EXTREMITY (Right, 05/23/2023); and Carotid angioplasty. History of Present Illness: Estevan Lester is a 58 y.o. male who was admitted to [facility] in [place] on 11/28/2023 for Anemia [D64.9] Hemorrhage Gastrointestinal [K92.2]. Relevant Medical History: Mr. Estevan Lester is a 58 y.o. male who presents with concerns of GI bleeding with 2 reported escamilla colored stools at care facility earlier today, along with color changes noted yesterday. Precautions Weight Bearing Status: 20 lb weightbearing restriction RLE per patient report Other Precautions: Falls; right reymundo; right inattention; communication/cognition; R hip abduction brace in place at all times Pain Assessment: Pain not reported during session. Patient/Caregiver Goals: Discharge back to facility Subjective Comments: Agreeable to therapy session. Home Living and Equipment: Lives with: Alone Receives help from: Facility Staff Type of Home: Jail Facility Home Layout: One Level Home Access: Ramp Elevator Bathroom Accessibility: Facility living quarters are fully accessible. Patient typically is wheeled into a shower room on a commode. Assistive Device Owned: Manual wheelchair Adaptive Equipment Owned: Patient has assistance with dressing; does not use aids. Other DME Owned: None Prior Level of Function and Mobility: Basic Activities of Daily Living: Required Assistance Instrumental Activities of Daily Living: Required Assistance Functional Mobility: Required Assistance, Manual wheelchair Driving: No OBJECTIVE Vital Signs: Vitals stable per chart review. Evaluation Assessments: Strength: Generalized weakness Range of Motion: Generalized weakness Outcome Measures: AM-[facility] Inpatient Short Form: AM-[facility] Basic Mobility (V.2) How much help from another person do you currently need???If the patient hasn't done an activity recently, how much help from another person do you think he/she would needif he/she tried? 1. Turning from your back to your side while in a flat bed without using bedrails?: Total 2. Moving from lying on your back to sitting on the side of a flat bed without using bedrails?: Total 3. Moving to and from a bed to a chair (including a wheelchair)?: Total 4. Standing up from a chair using your arms (e.g., wheelchair, or bedside chair)?: Total 5. To walk in hospital room?: Total 6. Climbing 3-5 steps with a railing?: Total -[facility] Basic Mobility (V.2) Raw Score: 6 -[facility] Basic Mobility (V.2) Standardized Score: 16.59 Interpretation: Based on scoring guidelines using the raw score value: Those going to home had an average score at or above 18 Those going to facility had an average score at or below 17 Clinicians answer the [facility] Inpatient Short Form based on observed patient activity and/or clinical judgment (patient can be scored without physically performing each activity) Therapeutic Interventions: THERAPEUTIC ACTIVITY:Patient sat unsupported in chair. Assisted with donning hip abduction brace provided wrap on brace for skin protection. Patient demonstrated exercises he continues to do at the facility THERAPEUTIC EXERCISE: Seated Therapeutic Exercise: Side: bilateral Mode: active range of motion Exercises: Long arc quads, ankle pumps Repetitions: 5 Assist/cueing: Education: -Role of PT in acute setting and collaborated with patient and/or family on goals and plan of care. The patient's status was discussed and the following coordination of care occurred with the RN and OT Patient was left in bedside chair at end of session with call light in reach, all needs met and questions answered. Assessment Discharge Therapy Needs - PT: No further skilled therapy If skilled therapy is recommended, skilled therapy can include physical therapy provided by home health, outpatient clinic, or a post-acute facility. The location of these services is determined by the patient's care team in partnership with patient/family. Level of Care Needed - PT: Physical assistance needed, Cognitive assistance needed Barriers to Discharge Home: Current functional status, Fall risk From a physical therapy perspective, the level of care above has been recommended for Mr. Lester after hospital discharge. This level of care is based on his functional abilities during today's session. This may change throughout the hospital course and will be updated as appropriate. Clinical Impression: Patient was agreeable to therapy evaluation. Patient reports he has been living in a fci. He is currently partial weight bearing with a hip spacer. He has his surgery in one month for possible arthroplasty. Patient reports he reached his max potential in the fci and has been staying there until his surgery. He is able to sit unsupported and performs independent exercises. Assisted patient with donning hip abductor brace in chair with provided wrap under brace to protect skin due to wearing a hospital gown. Recommend continue with exercises he has been doing, recommend while in the hospital to maintain routine and self cares. No further therapy recommended due to no change in status. Will sign off physical during hospital stay. Physical therapy treatment is medically necessary to restore and maximize function, maximize safetyand facilitate discharge to home, teach and educate the patient and/or caregivers. Progress: Progressing toward goals Plan Functional Goals: PT Inpatient Goals PT Goal #2: Patient will tolerate sitting edge of bed for 10+ minutes with minimal assistance x1 tobuild activity tolerance. PT Goal #2 Status: Achieved Estevan Lester has Good rehab potential to meet the expected outcomes in a reasonable period of time. Treatment Plan: Plan: Discontinue PT PT Frequency: One-time visit Requires Inpatient Follow-Up: No Patient agrees with the plan of care and goals. Treatment interventions may include: Treatment/Interventions: Therapeutic exercise, Therapeutic functional activity, Neuromuscular re-education, Gait training, Orthosis [id number], Self-care/home management Billing: Tiered PT Evaluation Codes: Comorbid Conditions: Cerebrovascular accident, Other (Comment) (Please refer to EMR) Personal Factors: Communication deficit, Visual impairment, Age, Balance impairment Examination elements: 3 Clinical Presentation: Evolving Clinical Decision Making: Moderate complexity clinical decision making Time Spent with Patient Evaluations PT Eval - Mod Complexity: 15 min Therapeutic Interventions Therapeutic Activity (min): 10 min Time Tracking Total Timed Units (min): 10 min Total Treatment Time (min): 25 min Anneliese Bates P.T., D.P.T. * Cyndie Moya M.S., O.T. - 11/29/2023 10:04 AM CDT Occupational Therapy Acute Hospital Inpatient Evaluation/Treatment SUBJECTIVE Patient's Name: Estevan Lester Referring/Attending Provider: Theodore Dsouza M.D. Reason for Referral: Occupational Therapy Evaluation and Treatment PERTINENT MEDICAL / SURGICAL HISTORY: Estevan Lester has a past medical history of Amblyopia Bilateral, Apnea Sleep Obstructive, Cataract, Diabetes Mellitus NOS, Diabetes Mellitus Type 2 (HCC), Hyperlipidemia, Hypertension NOS, Other Injury Of Unspecified Body Region, Polyp Colon, Sleep Apnea, and Stroke (HCC). Estevan Lester has a past surgical history that includes Closed Reduction Of Dislocation Of Hip (03/25/2009); Closed Reduction Of Dislocation Of Hip (03/06/2009); Closed reduction radial shaft fracture w/ manipulation (12/31/2003); other converted shx (see comment) (01/17/2004); other converted shx (see comment) (02/02/2004); other converted shx (see comment) (01/02/2004); other converted shx (see comment) (2004); other converted shx (see comment) (01/06/2004); other converted shx (see comment) (02/03/2009); other converted shx (see comment) (01/04/2004); Joint replacement; Arthroplasty - Resection Hip (Right, 05/23/2023); REMOVAL HARDWARE PELVIS (Right, 05/23/2023); FLAP PEDICLE ROTATIONAL LOWER EXTREMITY (Right, 05/23/2023); and Carotid angioplasty. History of Present Illness: Estevan Lester is a 58 y.o. male who was admitted to [facility] in [place] on 11/28/2023 for Anemia [D64.9] Hemorrhage Gastrointestinal [K92.2]. Relevant Medical History: Mr. Estevan Lester is a 58 y.o. male who presents with concerns of GI bleeding with 2 reported escamilla colored stools at care facility earlier today, along with color changes noted yesterday. Precautions Weight Bearing Status: 20 lb weightbearing restriction RLE per patient report. Leg brace donned when transferring/seated in chair and resting leg splint donned while supine in bed (not overnight). Other Precautions: Falls; right reymundo; right inattention; communication/cognition; R hip abduction brace in place at all times Pain Assessment: Pain not reported during session. Subjective Comments: Patient greeted in chair and agreeable to therapy session. Patient and his family member report that he has been using a wheelchair and ceiling lift for mobility at his intermediate facility. He has not walked in 7-8 months. Patient/Caregiver Goals: Discharge back to his facility and prepare for his upcoming procedure. Home Living and Equipment: Lives with: Alone Receives help from: Facility Staff Type of Home: Jail Facility Home Layout: One Level Home Access: Ramp Elevator Bathroom Accessibility: Facility living quarters are fully accessible. Patient typically is wheeled into a shower room on a commode. Assistive Device Owned: Manual wheelchair Adaptive Equipment Owned: Patient has assistance with dressing; does not use aids. Other DME Owned: None Prior Level of Function and Mobility: Basic Activities of Daily Living: Required Assistance Instrumental Activities of Daily Living: Required Assistance Functional Mobility: Required Assistance, Manual wheelchair Driving: No OBJECTIVE Vital Signs: Vitals not formally assessed during session. No concerns during chart review and the patient had nosigns or symptoms consistent with vital changes during therapy session. Evaluation Assessment: STRENGTH: Generalized weakness Right upper extremity impaired Right lower extremity impaired RANGE OF MOTION: Generalized weakness Right upper extremity impaired Right lower extremity impaired BALANCE: Unable to assess; pt is wheelchair bound at baseline. ACTIVITY TOLERANCE: Endurance: Tolerates less than 10 minutes of activity Outcome Measures: -[facility] Inpatient Short Form: Putting on and taking off regular lower body clothing?: Total Putting on and taking off regular upper body clothing?: A lot Taking care of personal grooming such as brushing teeth?: A lot Bathing (including washing, rinsing, drying)?: A lot Toileting, which includes using toilet, bedpan, or urinal?: Total Eating meals?: A Little Daily Activities Raw Score (max 24): 11 Daily Activities Standardized Score: 29.04 Interpretation: Based on scoring guidelines using the raw score value: Those going to home had an average score at or above 18 Those going to facility had an average score at or below 17 Clinicians answer the [facility] Inpatient Short Form based on observed patient activity and/or clinical judgment (patient can be scored without physically performing each activity). Cognition: Cognitive impairments at baseline History of CVA Therapeutic Interventions: ACTIVITIES OF DAILY LIVING: GROOMING - Assist Level: Supervision/Set-up - Patient Location: Chair - Activity: Brushing teeth - regular or soft brush, Washing face - Therapist Delivery: assessed, instructed, educated, assisted, facilitated - Assist/Cues: none LOWER BODY DRESSING - Assist Level: Total Assist - Patient Location: Chair - LB Dressing Item: orthotic - Therapist Delivery: assessed, instructed, educated, assisted, facilitated - Assist/Cues: none Team Communication: The patient's status was discussed and coordination of care occurred with RN, PT Co-treat with physical therapy as patient benefits from 2 skilled therapists present in order to optimize safety and progression of mobility and self-care skills. Patient was left in bedside chair at end of session with call light in reach, all needs met and questions answered. Assessment Discharge Therapy Needs - OT: No further skilled therapy If skilled therapy is recommended, skilled therapy can include occupational therapy provided in home health, outpatient or post-acute facility. The location of these services is determined by patient's care team in partnership with patient/family. Level of Care Needed - OT: Assistance with toileting, Assistance with eating/feeding, Assistance with transportation, Assistance with housekeeping, Assistance with dressing, Assistance with toilet/shower transfers, Assistance with medication set up/administration, Assistance with meal preparation, A ssistance with shopping, Cognitive assistance needed, Assistance with chief financial officer, Assistance with showering/bathing, Physical assistance needed Barriers to Discharge Home: Current functional status, Fall risk Clinical Impression: Currently, patient presents with impairments including decreased strength, debility, weight bearingprecautions, impaired balance, decreased activity tolerance, and cognitive deficits resulting in functional deficits including impaired functional mobility and decreased independence with self care tasks. Patient is wheelchair bound at baseline and has been using a ceiling lift for transfers at hisintermediate facility. He engages in ADL tasks while seated with supervision/setup and requires assistance for all I/ADLs. Patient is at his functional baseline and does not wish for or require skilled occupational therapy services at this time. Plan Discharge from OT Functional Goals: OT Goal #1: Patient will complete standing/seated grooming task at the sink side with supervision to increase patient's functional independence by discharge. OT Goal #1 Status: Achieved Progress: All OT goals achieved Rehab potential: Mr. Lester has fair potential to achieve established occupational therapy goals within the time frame outlined below. OT Frequency: OT Amount: 1 visit per day OT Frequency: One-time visit OT Inpatient Duration : Until goals are met or hospital discharge Requires Inpatient OT Follow-Up: No Plan: Discontinue OT Treatment interventions may include: Treatment Interventions: Therapeutic exercise, Therapeutic functional activity, Self-care/home management, Cognitive skills training Occupational Therapy Attestation Statement: Patient agrees with the plan of care and goals. Billing: Tiered OT Evaluation Codes: Comorbid Conditions: Cerebrovascular accident, Other (Comment) (Please refer to EMR) Personal Factors: Communication deficit, Visual impairment, Age, Balance impairment Occupational Profile and History review: Expanded Performance Deficits: at least 5 performance deficits Evaluation Complexity: Moderate Time Spent with Patient Evaluations OT Eval - Mod Complexity: 8 min Therapeutic Interventions Home Management Training (min): 21 min Time Tracking Total Timed Units (min): 21 min Total Treatment Time (min): 29 min Cyndie Moya M.S., O.T. documented in this encounter Nursing Notes * Gautam Scott R.N. - 12/01/2023 5:03 PM CDT Problem: SAFETY ADULT Goal: Maintain a safe environment Outcome: Progressing Problem: SAFETY ADULT - RISK FOR FALL AND OR FALL INJURY Goal: Patient remains free from fall/fall injury Outcome: Progressing Problem: PAIN - ADULT Goal: PT VERBALIZES/DEMONSTRATES ADEQUATE COMFORT LEVEL OR BASELINE Outcome: Progressing Problem: KNOWLEDGE DEFICIT Goal: Patient/family/caregiver demonstrates understanding of disease process, treatment plan, medications, and discharge instructions Outcome: Progressing Problem: INFECTION - ADULT Goal: Absence of infection during hospitalization Outcome: Progressing Problem: SKIN/TISSUE INTEGRITY Goal: Skin/Tissue integrity maintained or improved Outcome: Progressing Goal: Oral and Nasal mucous membranes remain intact Outcome: Progressing Problem: DISCHARGE PLANNING Goal: Patient discharge needs identified Outcome: Progressing Problem: POTENTIAL OR ACTUAL PRESSURE INJURY-ADULT Goal: Manage sensory Perception deficits to maintain and/or improve skin integrity Outcome: Progressing Goal: Maintain optimal skin moisture to ensure or improve skin integrity Outcome: Progressing Goal: Achieve optimal activity and/or mobility to maintain or improve skin integrity Outcome: Progressing Goal: Nutrient intake appropriate for improving, restoring or maintaining skin integrity Outcome: Progressing Goal: Minimize friction and/or shear to maintain or improve skin integrity Outcome: Progressing Problem: Compromised Skin Integrity Goal: Skin/Tissue integrity maintained or improved Outcome: Progressing Goal: Oral and Nasal mucous membranes remain intact Outcome: Progressing Goal: Incisions, wounds, or drain sites healing without S/S of infection Outcome: Progressing Problem: Incontinence and/or Moisture Goal: Skin integrity is maintained or improved Outcome: Progressing Problem: HEMATOLOGIC - ADULT Goal: Maintains hematologic stability Outcome: Progressing Shift Goals: Clinical Goals for the Shift: Complete bowel prep, incontinence management, promote comfort and safety Identify possible barriers to meeting goals/advancing plan of care: None. End of Shift Summary: Patient continues to slowly complete bowel prep. Patient had several loose BMs throughout the shift, and they have slowly become more clear. Patient does have significant irritation around his anus, thus barrier cream was applied after every BM/pericare. The patient had several voids that were incontinent, and a male purewick was applied later in the shift. Vital signs stable. No PRN medication administered. Blood pressure 110/58, pulse (!) 59, temperature 36.3 ??C, temperature source Oral, resp. rate 20, height 180.3 cm, weight 93.7 kg, SpO2 93%. Body mass index is 28.81 kg/m??. * Yvette Purdy R.N. - 11/30/2023 5:36 AM CDT Shift Goals: Clinical Goals for the Shift: Patient will remain hematologically stable. Identify possible barriers to meeting goals/advancing plan of care: None Problem: HEMATOLOGIC - ADULT Goal: Maintains hematologic stability Outcome: Progressing End of Shift Summary: Patient remained free of any GI bleed overnight. One small BM brown in color.Hgb 10.3. Hemodynamically stable. Patient refused all of his nighttime medication; did not like to be woken up to take his pills. Patient yelled at the telegraphic typewriter repairer to cut it out! and pursed his lips when the telegraphic typewriter repairer was trying to get him to take his med. Multiple attempts were made, Primary care team notified. documented in this encounter ED Notes * Patel Aguayo M.D. - 11/28/2023 8:55 PM CDT Care of patient transferred to hi by Paola Solis APRN, C.N.P., D.N.P., M.S.N.. VITAL SIGNS BP 125/89 Pulse 60 Temp 36.6 ??C (Oral) Resp 20 SpO2 93% ED Course as of 11/28/232054Nov 28, 2023 1600 Patient signed out to hi by day team with disposition pending CT scan. In short, this patient presents with hematochezia on Xarelto. 1808 CT Abdomen Pelvis without and with IV Contrast CT reveals no actionable findings 1853 Perkins score was calculated at 17 points. Discharge not recommended, therefore we will admit to medicine for serial hemoglobin check and observation for potential colonoscopy. Final Diagnoses: as of 11/28/232054 Hemorrhage Gastrointestinal Anemia Patel Aguayo M.D. Resident 11/28/232054 * Sandra Moise M.D. - 11/28/2023 6:25 PM CDT Care of patient transferred to hi by Paola Solis. Disposition pending CT of the abdomen. Assumed care at 4:[address] of the abdomen is done and there was no obvious source of bleeding. Patient has been observed in the emergency department and has been hemodynamically stable here. Unfortunately he has had several more episodes of bleeding. Given he is high-risk with recent GI bleedand anticoagulation, our plan will be admission to the hospital today. Patient understands that he would likely not have endoscopy over the weekend unless he decompensates. He is stable at this time. VITAL SIGNS BP (!) 131/92 Pulse 66 Temp 36.6 ??C (Oral) SpO2 96% Final Diagnoses: as of 11/28/23 1854 Hemorrhage Gastrointestinal Anemia Sandra Moise M.D. 11/28/23 1827 Sandra Moise M.D. 11/28/23 2343 * Paola Solis APRN, C.N.P., D.N.P., M.S.N. - 11/28/2023 3:12 PM CDT SUBJECTIVE CHIEF COMPLAINT/REASON FOR VISIT GI Bleeding HISTORY OF PRESENT ILLNESS History provided by: Patient and relative Estevan Lester is a 58yo M with complex comorbidities of CVA with right sided deficits on Xarelto, HTN, Hyperlipidemia, hip arthroplasty with complication of infection presents to the ED for concern of a GIB. Of note his sister is at the bedside aiding in his history. She endorses he has a neymar Nir tear. Patient lives at a rehab facility. The staff noted the stool changed in color yesterday. Today, he had escamilla colored stools, 2 episodes. Patient denies abdominal pain, chest pain, SOB, dizziness, lightheadedness. Hgb at the facility at 9.2. I have reviewed his Past Medical History, surgical history, medications, and allergy list. REVIEW OF SYSTEMS Constitutional: Negative for chills and fever. Respiratory: Negative for cough, chest tightness and shortness of breath. Cardiovascular: Negative for chest pain and leg swelling. Gastrointestinal: Positive for blood in stool. Negative for abdominal pain, hematemesis, nausea andvomiting. Musculoskeletal: Negative. Hematological: Bruises/bleeds easily. All other systems reviewed and are negative. OBJECTIVE Initial Vitals Temperature 11/28/23 1457 36.6 ??C Pulse Rate 11/28/23 1457 (!) 56 Heart Rate -- Resp -- Blood Pressure 11/28/23 1457 143/79 SpO2 11/28/23 1457 97 % Pain Score 11/28/23 1458 0 - No pain PHYSICAL EXAMINATION Constitutional: Nursing note and vitals reviewed. HENT: Head: Normocephalic and atraumatic. Mouth/Throat: Oropharynx is clear and moist. Mucous membranes are moist. Eyes: EOM are normal. Pupils are equal, round, and reactive to light. Neck: Neck supple. Cardiovascular: S1 normal and S2 normal. Bradycardia present. Capillary refill: takes less than 3 seconds Pulmonary/Chest: Effort normal and breath sounds normal. Abdominal: Soft. Bowel sounds are normal. There is no abdominal tenderness. Rectal exam shows tenderness, guaiac positive stool and blood-streaked stool. Musculoskeletal: Cervical back: Normal range of motion and neck supple. Neurological: Alert and oriented to person, place, and time. Hx of right sided deficits Skin: Skin is warm. He is not diaphoretic. ASSESSMENT/PLAN Assessment and Plan I reviewed the following external records: office records and primary care records. MDM: The patient is a 58 y.o. male who presents for concern for GIB. At present, he is not tachycardic or hypotensive. He is abdomen is soft, non tender without signs of an acute abdomen. His rectal exam - linemarker present at the bedside- his rectum is friable the stool hemoccult is positive. No signs of hemorrhoids, anal fissures. Will evaluate for acute blood loss anemia, active bleed, infectious processes, esophagitis, ulcers, vascular as well as other processes. ECG: SB without STEMI. The time now is shift change. Please see oncoming shift for further evaluation and disposition. MEDICATIONS ADMINISTERED: Medications sodium chloride 0.9 % injection 3 mL (has no administration in time range) sodium chloride 0.9 % injection 10 mL (has no administration in time range) sodium chloride 0.9 % injection 3 mL (has no administration in time range) ondansetron ODT disintegrating tablet 4 mg (Zofran-ODT) (has no administration in time range) Or ondansetron (PF) injection 4 mg (Zofran) (has no administration in time range) NaCl 0.9 % bolus 500 mL (0 mL intravenous Stopped 11/28/23 1605) iohexoL 350 mg iodine/mL solution 1-200 mL (Omnipaque) (115 mL intravenous Given 11/28/23 1656) sodium chloride (PF) 0.9 % injection 1-100 mL (50 mL intravenous Given 11/28/23 1656) acetaminophen tablet 1,000 mg (TylenoL) (1,000 mg oral Given 11/28/23 1722) IMAGING: LAST VITALS: Vitals: 11/28/23 1727 BP: Pulse: 66 Temp: SpO2: 96% Final Diagnoses: as of 11/28/231857 Hemorrhage Gastrointestinal Anemia DISPOSITION: Pending work up Paola Solis APRN, Venu.N.Luke., Rodrigo.N.P., M.S.N. 11/28/231857 documented in this encounter Miscellaneous Notes * Hospital Course - Theodore Dsouza M.D. - 11/29/2023 3:53 AM CDT Mr. Estevan Lester was admitted on medicine 6 for ongoing evaluation and management of GI bleed. Mr. 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 He presented from his intermediate facility on 11/28/23 for concerns of 2 escamilla colored stools as well as drop in hemoglobin to 9.2. In the ED, he remained hemodynamically stable, CT abdomen and pelvis with contrast was negative foracute GI bleeding, Patient was noted to have to have 3 additional bloody bowel movement concerning for GI bleeding and was thus admitted to Medicine for ongoing management. Initially his aspirin and Xarelto were held and he was started on a bowel regimen. His hemoglobin remained stable without further episodes of hematochezia. He was started back on his home dose of aspirin. There is concern for ongoing hematochezia if we were to restart Xarelto. He was started on a bowel prep for potential inpatient colonoscopy documented in this encounter Plan of Treatment Upcoming Encounters Date Type Department Care Team (Latest Contact Info) Description 01/02/2024 11:30 AM COMMUTATOR ASSEMBLER Clinical Communication Virtual Review in [address] [phone] 01/05/2024 9:20 AM COMMUTATOR ASSEMBLER Lab Department of Infusion Therapy in [address] [phone] Vel Vinson M.D., M.B.A. [address] [place] [phone] 01/05/2024 10:15 AM COMMUTATOR ASSEMBLER Appointment Department of Radiology, [facility], in [address] [phone] Vel Vinson M.D., M.B.A. [address] [place] [phone] 01/05/2024 10:45 AM COMMUTATOR ASSEMBLER Comprehensive Visit Section of Infectious Diseases in [address] [phone] Maddy Bingham P.A.-C. [address] [place] [phone] 01/05/2024 11:15 AM COMMUTATOR ASSEMBLER Office Visit Department of Orthopedic Surgery in [place], [place] [address] [place] [phone] Vel Vinson M.D., M.B.A. [address] [place] [phone] 01/05/2024 2:30 PM COMMUTATOR ASSEMBLER Comprehensive Visit Preoperative Evaluation Center in [place], [place] [address] [place] [address] Vel Vinson M.D., M.B.A. [address] [place] [phone] 01/06/2024 7:25 AM COMMUTATOR ASSEMBLER Hospital Encounter [facility] 02 4 AM ADMIT [address] [place] [phone] Vel Vinson M.D., M.B.A. [address] [place] [phone] 01/06/2024 7:25 AM COMMUTATOR ASSEMBLER - 01/06/2024 12:11 PM COMMUTATOR ASSEMBLER Surgery [facility] MAIN OR [address] [place] [phone] Vel Vinson M.D., M.B.A. [address] [place] [phone] ARTHROPLASTY REVISION FEMORAL+ACETABULAR HIP Scheduled Orders Name Type Priority Associated Diagnoses Order Schedule Pulse oximetry, continuous Other (comments); ED Respiratory Care Routine respiratory use [id number] reminder at 8am and 8pm until discontinued starting 11/28/2023 Adult Oxygen Therapy PRN Respiratory Care Routine As needed until discontinued starting 11/28/2023 HemoQuant, Feces Lab Routine Routine lab collection (next collection) for 1 Occurrences starting 11/28/2023 until 11/28/2023 Glucose, Random Lab Timed As needed until discontinued starting 11/28/2023 Colonoscopy GI Routine Once for 1 Occurrences starting 11/30/2023 until 11/30/2023 Hemoglobin Lab Routine AM collection: [id number] (default) for 1 Occurrences starting 12/02/2023 until 12/02/2023 Glucose, POCT Point of Care Testing-Docked Device Routine at bedtime until discontinued starting 12/01/2023 Scheduled Procedures Name Priority Associated Diagnoses Date/Ti me ARTHROPLASTY REVISION FEMORAL+ACETABULAR HIP Infection Total Hip Arthroplasty Subsequent Right 01/06/2024 7:25 AM COMMUTATOR ASSEMBLER documented as of this encounter Procedures * The patient is currently admitted. [...] POCT, B Routine 11/30/2023 7:30 AM CDT CBC WITHOUT DIFFERENTIAL, B Routine 11/30/2023 6:54 AM CDT BASIC METABOLIC PANEL, S/P Routine 11/30/2023 6:54 AM CDT GLUCOSE POCT, B Routine 11/29/2023 9:16 PM CDT GLUCOSE POCT, B Routine 11/29/2023 5:16 PM CDT GLUCOSE POCT, B Routine 11/29/2023 12:19 PM CDT GLUCOSE POCT, B Routine 11/29/2023 7:55 AM CDT SPSMA RESULT Routine 11/29/2023 7:49 AM CDT IRON AND TOT IRON-BINDING CAPACITY, S/P Routine 11/29/2023 7:49 AM CDT CBC WITH DIFFERENTIAL, B Routine 11/29/2023 7:49 AM CDT FOLATE, S Routine 11/29/2023 7:49 AM CDT VITAMIN B12 ASSAY, S Routine 11/29/2023 7:49 AM CDT BASIC METABOLIC PANEL, S/P Routine 11/29/2023 7:49 AM CDT CBC WITH DIFFERENTIAL, B STAT 11/28/2023 7:[address] ABDOMEN PELVIS WITHOUT AND WITH IV CONTRAST RAD - Semiurgent (Fast; most ED patients; some inpatients) 11/28/2023 5:18 PM CDT HEPATIC FUNCTION PANEL, S STAT 11/28/2023 3:31 PM CDT CBC WITH DIFFERENTIAL, B STAT 11/28/2023 3:31 PM CDT TYPE AND SCREEN STAT 11/28/2023 3:31 PM CDT LACTATE, B/P STAT 11/28/2023 3:31 PM CDT BASIC METABOLIC PANEL, S/P STAT 11/28/2023 3:31 PM CDT FERRITIN, S Routine 11/28/2023 3:20 PM CDT ECG STAT 11/28/2023 3:18 PM CDT documented in this encounter Results * Glucose, POCT (12/01/2023 12:06 PM CDT) Glucose, POCT, B 90 70 - 140 mg/dL 12/01/2023 12:33 PM CDT PCLX Site Capillary 12/01/2023 12:33 PM CDT PCLX Last Intake 3-4 hours 12/01/2023 12:33 PM CDT PCLX Blood 12/01/2023 12:0 6 PM CDT 12/01/2023 12:33 PM CDT us Unknown Provider LAB POCT ORDERABLES-MANUAL Cata l Result POC [facility] 200 [place] [address], [facility] PCLX [facility] POC 200 [place] [address] * Glucose, POCT (12/01/2023 7:59 AM CDT) Glucose, POCT, B 93 70 - 140 mg/dL 12/01/2023 8:25 AM CDT PCLX Site Capillary 12/01/2023 8:25 AM CDT PCLX Blood 12/01/2023 7:59 AM CDT 12/01/2023 8:25 AM CDT us Unknown Provider LAB POCT ORDERABLES-MANUAL Cata l Result POC [facility] 200 [place] [address], [place] PCLX [facility] POC [address] [place] [address] * Glucose, POCT (11/30/2023 8:48 PM CDT) Glucose, POCT, B 109 70 - 140 mg/dL 11/30/2023 8:50 PM CDT PCLX Site Capillary 11/30/2023 8:50 PM CDT PCLX Last Intake 3-4 hours 11/30/2023 8:50 PM CDT PCLX Blood 11/30/2023 8:48 PM CDT 11/30/2023 8:51 PM CDT us Unknown Provider LAB POCT ORDERABLES-MANUAL Cata l Result Performing Organization Address City/[facility]/ZIP Co de Phone Number POC [facility] 200 [place] [address], [facility] PCLX [facility] POC 200 [place] [address] * Glucose, POCT (11/30/2023 4:47 PM CDT) Glucose, POCT, B 129 70 - 140 mg/dL 11/30/2023 4:49 PM CDT PCLX Last Intake 3-4 hours 11/30/2023 4:49 PM CDT PCLX Blood 11/30/2023 4:47 PM CDT 11/30/2023 4:50 PM CDT us Unknown Provider LAB POCT ORDERABLES-MANUAL Cata l Result Performing Organization Address [facility] Co de Phone Number POC [facility] [address] [place] [address], [facility] PCLX [facility] POC [address] [place] [address] * (ABNORMAL) Glucose, POCT (11/30/2023 12:07 PM CDT) Glucose, POCT, B 158(H) 70 - 140 mg/dL 11/30/2023 12:09 PM CDT PCLX Last Intake 2-3 hours 11/30/2023 12:09 PM CDT PCLX Blood 11/30/2023 12:0 7 PM CDT 11/30/2023 12:10 PM CDT us Unknown Provider LAB POCT ORDERABLES-MANUAL Cata l Result Performing Organization Address City/[facility] Co de Phone Number POC [facility] [address] [place] [address], [facility] PCLX [facility] P[facility] [address] [place] [address] * Glucose, POCT (11/30/2023 7:30 AM CDT) Glucose, POCT, B 102 70 - 140 mg/dL 11/30/2023 7:37 AM CDT PCLX Last Intake 3-4 hours 11/30/2023 7:37 AM CDT PCLX Blood 11/30/2023 7:30 AM CDT 11/30/2023 7:37 AM CDT us Unknown Provider LAB POCT ORDERABLES-MANUAL Cata l Result POC [facility] [address] [place] [address], [facility] PCLX [facility] POC [address] [place] [address] * Basic Metabolic Panel (11/30/2023 6:54 AM CDT) Potassium, S 4.4 3.6 - 5.2 mmol/L [...] Dsouza M.D. LAB BLOOD ADD-ON Final Result Performing Organization Address [facility] Co de Phone Number [facility] [address] [place] [address], [facility] 200 [place] [address] * (ABNORMAL) CBC without Differential (11/30/2023 6:54 [...] Dsouza M.D. LAB BLOOD ADD-ON Final Result Performing Organization Address City/[facility]/ZIP Co de Phone Number [facility] [address] [place] [address], [facility] 200 [place] [address] * Glucose, POCT (11/29/2023 9:16 PM CDT) Glucose, POCT, B 130 70 - 140 mg/dL 11/29/2023 9:28 PM CDT PCLX Blood 11/29/2023 9:16 PM CDT 11/29/2023 9:29 PM CDT us Unknown Provider LAB POCT ORDERABLES-MANUAL Cata l Result Performing Organization Address City/[facility]/ZIP Co de Phone Number POC [facility] [address] [place] [address], [place] [facility] P[facility] [address] [place] [address] * Glucose, POCT (11/29/2023 5:16 PM CDT) Glucose, POCT, B 112 70 - 140 mg/dL 11/29/2023 5:19 PM CDT PCLX Site Capillary 11/29/2023 5:19 PM CDT PCLX Blood 11/29/2023 5:16 PM CDT 11/29/2023 5:19 PM CDT us Unknown Provider LAB POCT ORDERABLES-MANUAL Cata l Result Performing Organization Address [facility]/ZIP Co de Phone Number POC [facility] [address] [place] [address], [place] [facility] 200 [place] [address] * Glucose, POCT (11/29/2023 12:19 PM CDT) Glucose, POCT, B 102 70 - 140 mg/dL 11/29/2023 12:23 PM CDT PCLX Last Intake 3-4 hours 11/29/2023 12:23 PM CDT PCLX Blood 11/29/2023 12:1 9 PM CDT 11/29/2023 12:23 PM CDT us Unknown Provider LAB POCT ORDERABLES-MANUAL Cata l Result Performing Organization Address City/[facility]/ZIP Co de Phone Number POC [facility] [address] [place] [address], [place] [facility] [address] [place] [address] * Glucose, POCT (11/29/2023 7:55 AM CDT) Glucose, POCT, B 81 70 - 140 mg/dL 11/29/2023 8:00 AM CDT PCLX Site Capillary 11/29/2023 8:00 AM CDT PCLX Blood 11/29/2023 7:55 AM CDT 11/29/2023 8:00 AM CDT us Unknown Provider LAB POCT ORDERABLES-MANUAL Cata l Result POC [facility] [address] [place] [address], [facility] PCLX [facility] [place] POC [address] [place] [address] * (ABNORMAL) Morphology Eval (special smear) (11/29/2023 [...] count. Interpretation See Comment 10:31 AM CDT DHPM Comment:Peripheral blood sme ar reviewed: no diagnostic abnormalities are seen. Reviewed by: Rayne 11/29/2023 10:31 AM CDT DHPM Blood (Blood, Venous) 11/29/2023 7:49 AM CDT 11/29/2023 8:18 AM CDT us Zahira M Kleinheksel [employer]ER, C.N.P., D.N.P. LAB BLOOD ADD-ON Final Result Performing Organization Address City/[facility] Co de Phone Number [facility] [address] [place] [address] * Folate (11/29/2023 7:49 AM CDT) [facility] Folate, S >20.0 >=4.0 mcg/L 12/01/2023 8: 08 AM CDT DTL Blood (Blood, Venous) 11/29/2023 7:49 AM CDT 11/29/2023 8:33 AM CDT Zahira Shaw APRN C.N.P., D.N.P. LAB BLOOD ADD-ON Final Result Performing Organization Address [facility] de Phone Number [facility] [address] [place] [address] * Vitamin B12 Assay (11/29/2023 7:49 AM CDT) [facility] Vitamin B12 Assay, S 585 180 - [...] CDT 11/29/2023 8:33 AM CDT Zahira Shaw APRN C.N.P., D.N.P. LAB BLOOD ADD-ON Final Result Performing Organization Address [facility]/ZIP Co de Phone Number [facility] [address] [place] [address], [facility] 200 [place] [address] * (ABNORMAL) Iron and Total Iron-Binding Capacity (11/29/2023 7:49 AM CDT) Iron 60 50 - 150 mcg/dL 11/29/2023 8:52 AM CDT DTL Total Iron Binding Capacity 241(L) 250 - 400 mcg/dL 11/29/2023 8:52 AM CDT DTL Percent Saturation 25 14 - 50 % 11/29/2023 8:52 AM CDT DTL Blood (Blood, Venous) 11/29/2023 7:49 AM CDT 11/29/2023 8:33 AM CDT Zahira Shaw APRN, C.N.P., D.N.P. LAB BLOOD ADD-ON Final Result [facility] 200 [place] [address], [facility] 200 [place] [address] * Basic Metabolic Panel (11/29/2023 7:49 AM CDT) Pathologist [facility] Potassium, S 4.3 3.6 - 5.2 mmol/L 11/29/2023 8:52 AM CDT DTL Sodium, S 139 135 - 145 mmol/L 11/29/2023 8:52 AM CDT DTL Chloride, S 105 98 - 107 mmol/L 11/29/2023 8:52 AM CDT DTL Bicarbonate, S 25 22 - 29 mmol/L 11/29/2023 8:52 AM CDT DTL Anion Gap 9 7 - 15 11/29/2023 8:52 AM CDT DTL BUN (Blood Urea Nitrogen), S 15 8 - 24 mg/dL 11/29/2023 8:52 AM CDT DTL Creatinine 0.97 0.74 - 1.35 mg/dL 11/29/2023 8:52 AM CDT DTL Estimated GFR (eGFR) >90 >=60 mL/min/BSA 11/29/2023 8:52 AM CDT DTL Comment: Estimated GFR calculated using the 2020 CKD_EPI creatinine equation. Calcium, Total, S 8.8 8.6 - 10.0 mg/dL 11/29/2023 8:52 AM CDT DTL Glucose, S 85 70 - 140 mg/dL 11/29/2023 8:52 AM CDT DTL Blood (Blood, Venous) 11/29/2023 7:49 AM CDT 11/29/2023 8:33 AM CDT Zahira Shaw APRN, C.N.P., D.N.P. LAB BLOOD ADD-ON Final Result [place] [address] [place] [address], [facility] [place] [address] [place] [address] * (ABNORMAL) CBC with Differential, Blood (11/29/2023 7:49 AM CDT) Hemoglobin 10.3(L) 13.2 - 16.6 g/dL 11/29/2023 [...] C.N.P., D.N.P. LAB BLOOD ADD-ON Final Result [facility] [address] [place] [address], [facility] DTL [facility] 200 [place] [address] [place] [address] * (ABNORMAL) CBC with Differential, Blood (11/28/2023 7:01 PM CDT) Hemoglobin 9.7(L) 13.2 - 16.6 g/dL 11/28/2023 7:19 PM CDT STMA Hematocrit 29.4(L) 38.3 - 48.6 % 11/28/2023 7:19 PM CDT STMA Erythrocytes 3.26(L) 4.35 - 5.65 x10(12)/L 11/28/2023 7:19 PM CDT STMA MCV 90.2 78.2 - 97.9 fL 11/28/2023 7:19 PM CDT STMA RBC Distrib Width 15.4(H) 11.8 - 14.5 % 11/28/2023 7:19 PM CDT STMA Platelet Count 153 135 - 317 x10(9)/L 11/28/2023 7:19 PM CDT STMA Leukocytes 7.1 3.4 - 9.6 x10(9)/L 11/28/2023 7:19 PM CDT STMA Neutrophils 3.13 1.56 - 6.45 x10(9)/L 11/28/2023 7:19 PM CDT DHPM Lymphocytes 2.41 0.95 - 3.07 x10(9)/L 11/28/2023 7:19 PM CDT STMA Monocytes 0.92(H) 0.26 - 0.81 x10(9)/L 11/28/2023 7:19 PM CDT STMA Eosinophils 0.57(H) 0.03 - 0.48 x10(9)/L 11/28/2023 7:19 PM CDT STMA Basophils 0.09(H) 0.01 - 0.08 x10(9)/L 11/28/2023 7:19 PM CDT STMA Blood (Blood, Venous) 11/28/2023 7:01 PM CDT 11/28/2023 7:05 PM CDT us Patel Aguayo M.D. LAB BLOOD ADD-ON Final Re sult [facility] [address] [place] [address], [facility] STMA [facility] [address] [place] [address] [facility] [address] [place] [address] * CT Abdomen Pelvis without and with [...] abdomen or pelvis. Noacute findings. Paola Solis APRN, C.N.P., D.N.P., M.S.N. IMG CT PROCEDURES Final Result * (ABNORMAL) Hepatic Function Panel (11/28/2023 3:31 PM CDT) Bilirubin, Total, S <0.2 0.0 - 1.2 [...] 3:31 PM CDT 11/28/2023 4:07 PM CDT us Paola Solis APRN, C.N.P., D.N.P., M.S.N. LAB BLOOD ADD-ON Final Result [facility] [address] [place] [address], [facility] [address] [place] [address] * Type and Screen (with Reflex Antibody ID) (11/28/2023 3:31 PM CDT) Pathologist [facility] ABORh O Pos Not applicable 11/28/2023 4:02 PM CDT STRM Antibody Screen Negative Negative 11/28/2023 4:19 PM CDT STRM Type & Screen Expiration 12/01/2023 23:59 11/28/2023 4:02 PM CDT STRM Testing Location [place] [facility] 11/28/2023 3:44 PM CDT STRM Blood (Blood, Venous) 11/28/2023 3:31 PM CDT 11/28/2023 3:44 PM CDT us Jonna Kwok M.D., J.D. LAB BLOOD BANK TEST O RDERABLES Final Result Performing Organization Address City/[facility]/ZIP Co de Phone Number [facility] [address] [place] [address], [facility] STRM [facility] [address] [place] [address] * Lactate (11/28/2023 3:31 PM CDT) [facility] Lactate, P 1.2 0.5 - 2.2 mmol/L 11/28/2023 3:59 PM CDT STMA Blood (Blood, Venous) 11/28/2023 3:31 PM CDT 11/28/2023 3:44 PM CDT us Jonna Kwok M.D., J.D. LAB BLOOD NON ADD-ON Final Result Performing Organization Address City/[facility]/ZIP Co de Phone Number [facility] [address] [place] [address], [facility] STMA [facility] [address] [place] [address] * (ABNORMAL) CBC with Differential, Blood (11/28/2023 3:31 PM CDT) [facility] Hemoglobin 9.7(L) 13.2 - 16.6 g/dL 11/28/2023 3:47 PM CDT STMA Hematocrit 29.3(L) 38.3 - 48.6 % 11/28/2023 3:47 PM CDT STMA Erythrocytes 3.27(L) 4.35 - 5.65 x10(12)/L 11/28/2023 3:47 PM CDT STMA MCV 89.6 78.2 - 97.9 fL 11/28/2023 3:47 PM CDT STMA RBC Distrib Width 15.5(H) 11.8 - 14.5 % 11/28/2023 3:47 PM CDT STMA Platelet Count 158 135 - 317 x10(9)/L 11/28/2023 3:47 PM CDT STMA Leukocytes 6.8 3.4 - 9.6 x10(9)/L 11/28/2023 3:47 PM CDT STMA Neutrophils 3.08 1.56 - 6.45 x10(9)/L 11/28/2023 3:47 PM CDT DHPM Lymphocytes 2.21 0.95 - 3.07 x10(9)/L 11/28/2023 3:47 PM CDT STMA Monocytes 0.86(H) 0.26 - 0.81 x10(9)/L 11/28/2023 3:47 PM CDT STMA Eosinophils 0.54(H) 0.03 - 0.48 x10(9)/L 11/28/2023 3:47 PM CDT STMA Basophils 0.08 0.01 - 0.08 x10(9)/L 11/28/2023 3:47 PM CDT STMA Blood (Blood, Venous) 11/28/2023 3:31 PM CDT 11/28/2023 3:44 PM CDT us Jonna Kwok M.D., J.D. LAB BLOOD ADD-ON Cata l Result [facility] [address] [place] [address], [facility] STMA [facility] [address] [place], [place] [address] [place] [address] [address] [place] [address] * Basic Metabolic Panel (11/28/2023 3:31 PM CDT) [facility] Potassium, P 4.3 3.6 - 5.2 mmol/L 11/28/2023 4:03 PM CDT STMA Sodium, P 137 135 - 145 mmol/L 11/28/2023 4:03 PM CDT STMA Chloride, P 102 98 - 107 mmol/L 11/28/2023 4:03 PM CDT STMA Bicarbonate, P 25 22 - 29 mmol/L 11/28/2023 4:03 PM CDT STMA Anion Gap, P 10 7 - 15 11/28/2023 4:03 PM CDT STMA BUN (Blood Urea Nitrogen), P 17 8 - 24 mg/dL 11/28/2023 4:03 PM CDT STMA Creatinine 0.87 0.74 - 1.35 mg/dL 11/28/2023 4:03 PM CDT STMA Estimated GFR (eGFR) >90 >=60 mL/min/BSA 11/28/2023 4:03 PM CDT STMA Comment: Estimated GFR calculated using the 2020 CKD_EPI creatinine equation. Calcium, Total, P 8.8 8.6 - 10.0 mg/dL 11/28/2023 4:03 PM CDT STMA Glucose, P 122 70 - 140 mg/dL 11/28/2023 4:03 PM CDT STMA Blood (Blood, Venous) 11/28/2023 3:31 PM CDT 11/28/2023 3:44 PM CDT us Jonna Kwok M.D., Krystle LAB BLOOD ADD-ON Cata l Result Performing Organization Address City/[facility]/ZIP Co de Phone Number [facility] [address] [place] [address], [facility] STMA [facility] [address] [place] [address] * Ferritin (11/28/2023 3:20 PM CDT) Pathologist [facility] Ferritin, S 302 31 - 409 mcg/L 11/29/2023 4:22 AM CDT DTL Blood (Blood, Venous) 11/28/2023 3:20 PM CDT 11/29/2023 3:49 AM CDT us Zahira Shaw APRN, C.N.P., D.N.P. LAB BLOOD ADD-ON Final Result Performing Organization Address City/[facility]/ZIP Co de Phone Number [facility] [address] [place] [address], [facility] DTL [facility] [address] [place] [address] * ECG 12 Lead (11/28/2023 3:18 PM CDT) Ventricular Rate ECG/Min 58 BPM MUSE OR Interval 208 ms MUSE QRSD Interval 94 ms MUSE QT Interval 460 ms MUSE QTC Interval 451 ms MUSE R [place] 43 degrees MUSE T Wave [place] -22 degrees MUSE 11/28/2023 3:18 PM CDT 11/28/2023 3:27 PM CDT Impressions MUSE - 11/28/2023 3:27 PM CDT Sinus bradycardia with 1st degree A-V block Low voltage QRS Low anterior forces Nonspecific T wave abnormality When compared with ECG of 24-May-2023 12:12, OR interval has increased T wave changes QT has shortened Reviewed by MARTHA Shah Narrative Procedure Note Prudencio Painting Jr., M.D. - 11/28/2023 IMPRESSION: Sinus bradycardia with 1st degree A-V block Low voltage QRS Low anterior forces Nonspecific T wave abnormality When compared with ECG of 24-May-2023 12:12, OR interval has increased T wave changes QT has shortened Reviewed by MARTHA Shah us Paola Solis APRN, C.N.P., D.N.P., M.S.N. ECG ORDERABLES Final Result MUSE NA documented in this encounter Visit Diagnoses Diagnosis Infection Total Hip Arthroplasty Subsequent Right- Primary Hemorrhage Gastrointestinal- Primary Hemorrhage Gastrointestinal Anemia Infection Total Hip Arthroplasty Subsequent Right documented in this encounter Admitting Diagnoses Diagnosis Hemorrhage Gastrointestinal documented in this encounter Administered Medications Active Administered Medications - up to 3 most recent administrations Medication Order MAR Action Action Date Dose Rate Site acetaminophen tablet 1,000 mg (TylenoL) 1,000 mg, oral, 3 times daily, First dose (after last modification) on 11/29/23 at 1400 Given 12/01/2023 1:56 PM CDT 1,000 mg Given 12/01/2023 8:10 AM CDT 1,000 mg Given 11/30/2023 8:43 PM CDT 1,000 mg aspirin chewable tablet 81 mg 81 mg, oral, Daily, First dose on 11/29/23 at 0900 Given 12/01/2023 8:10 AM CDT 81 mg Given 11/30/2023 10:17 AM CDT 81 mg atorvastatin tablet 20 mg (Lipitor) 20 mg, oral, Daily at bedtime, First dose on 11/29/23 at 2100 Given 11/30/2023 8:43 PM CDT 20 mg insulin aspart U-100 injection 0-13 Units (NovoLOG FlexPen) 0-13 Units, subcutaneous, Daily at bedtime, First dose (after last modification) on 12/01/23 at 2100, Insulin Scale: Moderate Correction Scale, 140 - 179: 2 units, 180 - 219: 4 units, 220 - 259: 6 units, 260 - 299: 8 units, 300 - 339: 10 units, 340 - 379: 12 units, 380 - 399: 13 units, Greater than 399: Call service writing Insulin orders levETIRAcetam solution 750 mg (Keppra) 750 mg, oral, 2 times daily, First dose on 11/29/23 at 0900 Given 12/01/2023 8:10 AM CDT 750 mg Given 11/30/2023 8:43 PM CDT 750 mg Given 11/30/2023 10:17 AM CDT 750 mg lisinopriL tablet 5 mg 5 mg, oral, Daily, First dose on 11/29/23 at 0900 Given 12/01/2023 8:10 AM CDT 5 mg Given 11/30/2023 10:17 AM CDT 5 mg Given 11/29/2023 8:54 AM CDT [address] tablet 40 mg (Protonix) 40 mg, oral, 2 times daily before morning and evening meals, First dose on 11/29/23 at 1600, Swallow whole. Do NOT crush, chew, or split tablet. Given 12/01/2023 4:41 PM CDT 40 mg Given 12/01/2023 5:25 AM CDT 40 mg Given 11/30/2023 4:40 PM CDT 40 mg sennosides-docusate sodium 8.6-50 mg per tablet 1 tablet (Senokot-S) 1 tablet, oral, 2 times daily, First dose on 11/29/23 at 0900, Do not give if patient has diarrhea. Given 11/30/2023 8:25 PM CDT 1 tablet Given 11/29/2023 8:54 AM CDT 1 tablet sodium chloride 0.9 % injection 10 mL 10 mL, intravenous, As needed, line care, Starting on Fri11/28/23 at 1513, Peripheral Intravenous Catheter and Rapid Infusion Catheter, prior to blood sampling, post blood transfusion or post blood sampling sodium chloride 0.9 % injection 3 mL 3 mL, intravenous, As needed, line care, Starting on Fri11/28/23 at 1513, Prior to and following infusion and between multiple consecutive infusions: sodium chloride 0.9 % injection sodium chloride 0.9 % injection 3 mL 3 mL, intravenous, Every 12 hours scheduled, First dose on Fri11/28/23 at 2100, Peripheral Intravenous Catheter and Rapid Infusion Catheter, when no infusion to maintain patency Given 12/01/2023 8: 20 AM CDT 3 mL Given 11/30/2023 8:25 PM CDT 3 mL Given 11/30/2023 10:27 AM CDT 3 mL sucralfate suspension 1 g (Carafate) 1 g, oral, 4 times daily, First dose on Fri11/29/23 at 0800 Given 12/01/2023 4:41 PM CDT 1 g Given 12/01/2023 12:06 PM CDT 1 g Given 12/01/2023 8:10 AM CDT 1 g Inactive Administered Medications - up to 3 most recent administrations Medication Order MAR Action Action Date Dose Rate Site acetaminophen tablet 1,000 mg (TylenoL) 1,000 mg, oral, Once, On Fri11/28/23 at 1700, For 1 dose Given 11/28/2023 5:22 PM CDT 1,000 mg enoxaparin injection 40 mg (Lovenox) 40 mg, subcutaneous, Once, On Fri12/01/23 at 1115, For 1 dose Given 12/01/2023 12:07 PM CDT 40 mg Right Lower Abdomen insulin aspart U-100 injection 0-13 Units (NovoLOG FlexPen) 0-13 Units, subcutaneous, 3 times daily, First dose on Fri11/29/23 at 0800, Insulin Scale: Moderate Correction Scale, 140 - 179: 2 units, 180 - 219: 4 units, 220 - 259: 6 units, 260 - 299: 8 units, 300 - 339: 10 units, 340 - 379: 12 units, 380 - 399: 13 units, Greater than 399: Call service writing Insulin orders Given 11/30/2023 12:35 PM CDT 2 Units Left Upper Arm (Back) iohexoL 350 mg iodine/mL solution 1-200 mL (Omnipaque) 1-200 mL, intravenous, Once in imaging, contrast, Starting on Fri11/28/23 at 1654, For 1 dose, Imaging Protocol Orders, Dose per Radiant Medication Guidelines Given 11/28/2023 4:56 PM CDT 115 mL NaCl 0.9 % bolus 500 mL 500 mL, intravenous, at 500 mL/hr, Administer over 1 Hours, Once, On Fri11/28/23 at 1546, For 1 dose New Bag 11/28/2023 3:26 PM CDT 500 mL 500 mL/hr pantoprazole DR tablet 40 mg (Protonix) 40 mg, oral, Once, On Fri11/28/23 at 2114, For 1 dose, Swallow whole. Do NOT crush, chew, or split tablet. Given 11/28/2023 9:18 PM CDT 40 mg pantoprazole injection 40 mg (Protonix) 40 mg, intravenous, Every 12 hours scheduled, First dose on 11/29/23 at 0900, Administer IV push over 2 minutes. Add 10 mL NS to 40 mg vial for a final concentration of 4 mg/mL. Given 11/29/2023 8:54 AM CDT 40 mg polyethylene glycol powder packet 17 g (Miralax) 17 g, oral, 3 times daily, First dose (after last modification) on 11/29/23 at 2100, Ordered sequence of administration: polyethylene glycol, then bisacodyl until BM achieved. Avoid mixing with starch-based thickened liquids. Given 11/30/2023 10:17 AM CDT 17 g polyethylene glycol-electrolytes solution 4,000 mL (Golytely) 4,000 mL, oral, Once, On Fri11/30/23 at 1115, For 1 dose, Add lukewarm water (to facilitate dissolution) to bring the volume of solution to 4 liters (for all doses). The solution is clear and colorless when reconstituted to a final volume of 4 liters. After capping the container, shake vigorously several times to ensure that the ingredients are dissolved. When reconstituted use within 48 hours. Given 11/30/2023 12:55 PM CDT 4,000 mL sodium chloride (PF) 0.9 % injection 1-100 mL 1-100 mL, intravenous, Once, On 11/28/23 at 1655, For 1 dose, Imaging Protocol Orders, Dose per Radiant Medication Guidelines Given 11/28/2023 4:56 PM CDT 50 mL documented in this encounter Active and Recently Administered Medications Times are shown in CDT. Scheduled Medication Order 11/29/2023 11/30/2023 12/01/2023 acetaminophen tablet 1,000 mg (TylenoL) 1,000 mg, oral, 3 times daily, First dose (after last modification) on 11/29/23 at 1400 1309 (Given - Provider: Rosa Garduno R.N.)2114 (Not Given - Provider: Yvette Purdy R.N. - Reason: Patient/family refused) 1017 (Given - Provider: Rosa Garduno R.N.)1422 (Given - Provider: Rosa Garduno R.N.)2043 (Given - Provider: Blair Mcdaniel R.N.) 0810 (Given - Provider: Kimberly Hi R.N.)1356 (Given - Provider: Gautam Scott R.N.)2100 (Due) aspirin chewable tablet 81 mg 81 mg, oral, Daily, First dose on 11/29/23 at 0900 0139 (Held by provider - Provider: Zahira Shaw APRN, C.N.P., D.N.P. - Comment: GI bleed)0900 (Not Given - Provider: Rosa Garduno R.N. - Reason: See Provider Order)1418 (Unheld by provider - Provider: Theodore Dsouza M.D.) 1017 (Given - Provider: Rosa Garduno R.N.) 0810 (Given - Provider: Kimberly Hi R.N.) atorvastatin tablet 20 mg (Lipitor) 20 mg, oral, Daily at bedtime, First dose on 11/29/23 at 2100 2114 (Not Given - Provider: Yvette Purdy R.N. - Reason: Patient/family refused) 204 (Given - Provider: Blair Mcdaniel R.N.) 2100 (Due) enoxaparin injection 40 mg (Lovenox) (COMPLETED) 40 mg, subcutaneous, Once, On Fri12/01/23 at 1115, For 1 dose 1207 (Given - Provider: Gautam Scott RWilma) insulin aspart U-100 injection 0-13 Units (NovoLOG FlexPen) (CANCELED) 0-13 Units, subcutaneous, 3 times daily, First dose on Fri11/29/23 at 0800, Insulin Scale: Moderate Correction Scale, 140 - 179: 2 units, 180 - 219: 4 units, 220 - 259: 6 units, 260 - 299: 8 units, 300 - 339: 10 units, 340 - 379: 12 units, 380 - 399: 13 units, Greater than 399: Call service writing Insulin orders 0902 (Not Given - Provider: Rosa Garduno RBelkisN. - Reason: Order parameters not met)1220 (Not Given - Provider: Rosa Garduno R.N. - Reason: Order parameters not met)1726 (Not Given - Provider: Rosa Garduno R.N. - Reason: Order parameters not met) 0754 (Not Given - Provider: Rosa Garduno R.N. - Reason: Order parameters not met)1235 (Given - Provider: Rosa Garduno RWilma)1648 (Not Given - Provider: Jael LincolnN. - Reason: Order parameters not met) 0821 (Not Given - Provider: Kimberly Hi R.N. - Reason: Order parameters not met)1207 (Not Given - Provider: Gautam Scott RBelkisNBelkis - Reason: Order parameters not met) insulin aspart U-100 injection 0-13 Units (NovoLOG FlexPen) 0-13 Units, subcutaneous, Daily at bedtime, First dose (after last modification) on Fri12/01/23 at 2100, Insulin Scale: Moderate Correction Scale, 140 - 179: 2 units, 180 - 219: 4 units, 220 - 259: 6 units, 260 - 299: 8 units, 300 - 339: 10 units, 340 - 379: 12 units, 380 - 399: 13 units, Greater than 399: Call service writing Insulin orders 2100 (Due) levETIRAcetam solution 750 mg (Keppra) 750 mg, oral, 2 times daily, First dose on 11/29/23 at 0900 0854 (Given - Provider: Rosa Garduno R.N.)2114 (Not Given - Provider: Yvette Purdy R.N. - Reason: Patient/family refused) 1017 (Given - Provider: Rosa Garduno R.N.)2042 (Given - Provider: Blair Mcdaniel R.N.) 0810 (Given - Provider: Kimberly Hi R.N.)2100 (Due) lisinopriL tablet 5 mg 5 mg, oral, Daily, First dose on 11/29/23 at 0900 0854 (Given - Provider: Rosa Garduno R.N.) 1017 (Given - Provider: Rosa Garduno R.N.) 0810 (Given - Provider: Kimberly Hi R.N.) pantoprazole DR tablet 40 mg (Protonix) 40 mg, oral, 2 times daily before morning and evening meals, First dose on 11/29/23 at 1600, Swallow whole. Do NOT crush, chew, or split tablet. 1555 (Given - Provider: Odilia Cottrell RBelkisNBelkis) 0730 (Given - Provider: Rosa Garduno R.N.)1640 (Given - Provider: Rosa Garduno R.N.) 0525 (Given - Provider: Blair Mcdaniel R.N.)1641 (Given - Provider: Gautam Scott RBelkisNBelkis) pantoprazole injection 40 mg (Protonix) (CANCELED) 40 mg, intravenous, Every 12 hours scheduled, First dose on 11/29/23 at 0900, Administer IV push over 2 minutes. Add 10 mL NS to 40 mg vial for a final concentration of 4 mg/mL. 0854 (Given - Provider: Rosa Garduno R.N.) polyethylene glycol powder packet 17 g (Miralax) (CANCELED) 17 g, oral, 3 times daily, First dose (after last modification) on 11/29/23 at 2100, Ordered sequence of administration: polyethylene glycol, then bisacodyl until BM achieved. Avoid mixing with starch-based thickened liquids. 2052 (Not Given - Provider: Yvette Purdy R.N. - Reason: Order parameters not met) 1017 (Given - Provider: Rosa Garduno R.N.) polyethylene glycol-electrolytes solution 4,000 mL (Golytely) (COMPLETED) 4,000 mL, oral, Once, On Fri11/30/23 at 1115, For 1 dose, Add lukewarm water (to facilitate dissolution) to bring the volume of solution to 4 liters (for all doses). The solution is clear and colorless when reconstituted to a final volume of 4 liters. After capping the container, shake vigorously several times to ensure that the ingredients are dissolved. When reconstituted use within 48 hours. 1255 (Given - Provider: Rosa Garduno R.N.) sennosides-docusate sodium 8.6-50 mg per tablet 1 tablet (Senokot-S) 1 tablet, oral, 2 times daily, First dose on Fri11/29/23 at 0900, Do not give if patient has diarrhea. 0854 (Given - Provider: Rosa Garduno R.N.)2052 (Not Given - Provider: Yvette Purdy R.N. - Reason: Order parameters not met) 101 (Not Given - Provider: Rosa Garduno R.N. - Reason: Other - Comment: type 6 stool)2024 (Given - Provider: Blair Mcdaniel R.N.) 08 (Not Given - Provider: Kimberly Hi RBelkisNBelkis - Reason: Patient/family refused)2100 (Due) sodium chloride 0.9 % injection 3 mL 3 mL, intravenous, Every 12 hours scheduled, First dose on Fri11/28/23 at 2100, Peripheral Intravenous Catheter and Rapid Infusion Catheter, when no infusion to maintain patency 0902 (Given - Provider: Rosa Garduno R.N.)2113 (Given - Provider: Yvette Purdy R.N.) 1027 (Given - Provider: Rosa Garduno R.N.)2024 (Given - Provider: Blair Mcdaniel R.N.) 0820 (Given - Provider: Kimberly Hi R.N.)2100 (Due) sucralfate suspension 1 g (Carafate) 1 g, oral, 4 times daily, First dose on Fri11/29/23 at 0800 0854 (Given - Provider: Rosa Garduno RBelkisN.)1220 (Given - Provider: Rosa Garduno R.N.)1738 (Given - Provider: Rosa Garduno R.N.)2114 (Not Given - Provider: Yvette Purdy R.N. - Reason: Patient/family refused) 0730 (Given - Provider: Rosa Garduno R.N.)1235 (Given - Provider: Rosa Garduno R.N.)1640 (Given - Provider: Rosa Garduno R.N.)2043 (Given - Provider: Blair Mcdaniel R.N.) 0810 (Given - Provider: Kimberly Hi RBelkisNBelkis)1206 (Given - Provider: Gautam Scott RBelkisNBelkis)1641 (Given - Provider: Gautam Scott RWilma)2100 (Due) PRN Medication Order 11/29/2023 11/30/2023 12/01/2023 calcium carbonate chewable tablet 200 mg of calcium (Tums) 200 mg of calcium, oral, 2 times daily PRN, heartburn, indigestion, Starting on 11/29/23 at 0138, calcium carbonate chewable 500 mg (200 mg elemental) was interchanged for calcium carbonate chewable 500 mg calcium carbonate contains 200 mg of elemental calcium. carboxymethylcellulose 0.5 % ophthalmic solution 1 drop (Refresh Plus) 1 drop, both eyes, 4 times daily PRN, dry eyes, Starting on 11/29/23 at 0021 sodium chloride 0.9 % injection 10 mL 10 mL, intravenous, As needed, line care, Starting on Fri11/28/23 at 1513, Peripheral Intravenous Catheter and Rapid Infusion Catheter, prior to blood sampling, post blood transfusion or post blood sampling sodium chloride 0.9 % injection 3 mL 3 mL, intravenous, As needed, line care, Starting on Fri11/28/23 at 1513, Prior to and following infusion and between multiple consecutive infusions: sodium chloride 0.9 % injection documented in this encounter Care Teams Nurse Researcher Relationship Specialty Start Date End Date Elsewhere, Pcp PCP - General Internal Medicine 10/03/23 documented as of this encounter
--- OUTSIDE RECORDS SUMMARY | 2023-12-01 19:52 | XMS_ITS ---
Author Organization [facility] Address [address] [place] [address] Care Team Providers Care [employer] Developer Name Role Phone Unavailable Unavailable Unavailable Surgery Details Not on file Complications Check Surgery Details section. Procedure Estimated Blood Loss Check Surgery Details section. Procedure Findings Check Surgery Details section. Procedure Specimens Taken Check Surgery Details section.
--- OUTSIDE RECORDS SUMMARY | 2023-12-01 19:52 | XMS_ITS | Referral Summary ---
Author Organization [facility] Address [address] [place] [address] Care Team Providers Care Geosciences Associate Professor Name Role Phone Elsewhere, Pcp Primary Care Provider Unavailabl e Source Comments Patient records contain information from all sites at [facility]. For routine questions regarding patient records, call [phone] during business hours, M-F 8:00 AM - 5:00 PM Central Time. Record requests for emergency care only can be directed to [phone] at any time.[facility] Encounters Date Type Department Care Team Description 11/28/2023 2:49 PM CDT - Present Hospital Encounter [facility], [facility], [facility], Fourth Floor [address] [place] [address] Paola Solis APRN, C.N.P., D.N.P., M.S.N. Theodore Dsouza M.D. Beiermann, Elizabeth W, M.D. Kleinheksel, Germaine M, APRN C.N.P., D.N.P. Hemorrhage Gastrointestinal (Primary Dx); Anemia 11/03/2023 Intake [facility] 10/21/2023 Clinical Communication Department of Orthopedic Surgery in [place], [place] [address] [place] [phone] Vel Vinson M.D., M.B.A. 10/03/2023 1:00 PM CDT Comprehensive Visit Department of Neurology in [place], [place] [address] [place] [phone] Balbir Maradiaga M.D. Stroke Cerebrovascular Accident Personal History (Primary Dx); Seizure (HCC); Stenosis Carotid Artery Left 10/01/2023 Abstract [place], [place] [address] [place] [address] Provider, Historical 09/24/2023 2:45 PM CDT Clinical Communication Virtual Review in [place], [place] [address] [place] [address] 09/08/2023 Orders Only Section of Infectious Diseases in [place], [place] [address] [place] [address] Storm Nicole M.D. 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 1 each 023 Suspended flash glucose scanning reader (FreeStyle Jessica 2 [place]) miscIndications :Diabetes Mellitus Type 2 Ulcer Foot [...] moderate pain or score 4-6 of 10. 024 Suspended Additional Information Patient taking differently:1,000 mg [...] Take 5 mg by mouth as needed. 11/28 Discontinued Novofine Autocover 30 gauge x 1/3 needle Suspended zinc oxide 20 % ointment Apply topically as needed. 11/28 Discontinued rivaroxaban (Xarelto) 10 mg tablet Take 1 tablet (10 mg total) by mouth daily. 30 tablet 11 08/27 Suspended lisinopriL 5 mg tablet Take [...] (04/17/2020): Added automatically from request for surgery [id number] Hyponatremia 03/09/2020 07/30/2022 Hyperkalemia 03/09/2020 07/30/2022 Cellulitis [...] 0.6 oz pur e alcohol) [facility] [employer]endeleyities Answer Date Recorded In the past 12 months has e [employer], gas, oil, or water [employer] threatened to shut off services in your [...] your living situation today? I have a [facility] place to live 11/29/2023 Sex and Gender Information Value Date Recorded Sex Assigned at Male 07/26/2022 1:30 PM CDT Legal Sex Male 6:41 AM MACHINE CLOTHING MAN Gender Identity Male 07/26/2022 1:32 PM CDT [...] (Latest Contact Info) Description 01/02/2024 11:30 AM MACHINE CLOTHING MAN Clinical Communication Virtual Review in [place] [address] [place] [address] 01/05/2024 9:20 AM MACHINE CLOTHING MAN Lab Department of Infusion Therapy in [place], [place] [address] [place] [address] Vel Vinson M.D., M.B.A. [address] [place] [phone] 01/05/2024 10:15 AM MACHINE CLOTHING MAN Appointment Department of Radiology, [facility], in [place], [place] [address] [place] [address] Vel Vinson M.D., M.B.A. [address] [place] [phone] 01/05/2024 10:45 AM MACHINE CLOTHING MAN Comprehensive Visit Section of Infectious Diseases in [place], [place] [address] [place] [phone] Maddy Bingham P.A.-C. [address] [place] [phone] 01/05/2024 11:15 AM MACHINE CLOTHING MAN Office Visit Department of Orthopedic Surgery in [place], [place] [address] [place] [phone] Vel Vinson M.D., M.B.A. [address] [place] [phone] 01/05/2024 2:30 PM MACHINE CLOTHING MAN Comprehensive Visit Preoperative Evaluation Center in [place], [place] [address] [place] [phone] Vel Vinson M.D., M.B.A. [address] [place] [phone] 01/06/2024 7:25 AM MACHINE CLOTHING MAN Hospital Encounter [facility] 02 4 AM ADMIT [address] [place] [phone] Vel Vinson M.D., M.B.A. [address] [place] [address] 01/06/2024 7:25 AM MACHINE CLOTHING MAN - 01/06/2024 12:11 PM MACHINE CLOTHING MAN Surgery [facility] MAIN OR [address] [place] [address] Vel Vinson M.D., M.B.A. [address] [place] [address] ARTHROPLASTY REVISION FEMORAL+ACETABULAR HIP Scheduled Procedures Name Priority Associated Diagnoses Date/Ti me ARTHROPLASTY REVISION FEMORAL+ACETABULAR HIP Infection Total Hip Arthroplasty Subsequent Right 01/06/2024 7:25 AM MACHINE CLOTHING MAN Medical Devices Implanted Type Area Comber Fixer Device Identifier Shelf Expiration Date Model / Serial / Lot Cmnt Bn Smp 40gm - [id number] Implanted:Qty: 1 on 05/23/2023 by Vel Vinson M.D., M.B.A. at [facility] Bone Cement Right: Hip Liliane 6191-1-001 / / Cmnt Bn Smp 40gm - [id number] Implanted:Qty: 1 on 05/23/2023 by Félix Mckeon M.D. at [facility] Bone Cement Right: Hip Liliane 6191-1-001 / / Cmnt Bn Smp 40gm - [id number] Implanted:Qty: 1 on 05/23/2023 by Félix Mckeon M.D. at [facility] Bone Cement Right: Hip [place] 6191-1-001 / / Stnt Protege 0.014 [id number] - [id number] Implanted:Qty: 1 on 08/09/2022 by Fantasma Butt M.D. at [facility] Cardiac Stent Medtronic 02/19/2024 SECX-8-30-1 35 / / [id number] Small Frag-Screw Yasmany 3.5x16 - Amaral [id number] Implanted:Qty: 3 on 2004 Hardware e.g. pins/screws /rods Depuy Synthes Description:Device Manufactu rer - Synthes. Device Status Text - HARDWARE-7597. K-Wire Smooth S.S. Single 9 .062 - Amaral [id number] Implanted:Qty: 1 on 2004 Hardware e.g. pins/screws /rods Liliane Description:Device Manufactu rer - [place] Angel.. Device Status Text - HARDWARE-9295. Small [...] - Synthes. Device Status Text - HARDWARE-7601. Pin Dania Threaded Single End 5 64 - Amaral [id number] Implanted:Qty: 2 on 01/02/2004 Hardware e.g. pins/screws /rods Liliane Description:Device Manufactu rer - [place] Angel.. Device Status Text - HARDWARE-9484. Small Frag-Screw Yasmany 3.5x26 - Amaral [id number] Implanted:Qty: 1 on 01/02/2004 Hardware e.g. pins/screws /rods Depuy Synthes Description:Device Manufactu rer - Synthes. Device Status Text - HARDWARE-7602. Syn Screw Schanz 5.0x250 - Amaral [id number] Implanted:Qty: 1 on 01/02/2004 Hardware e.g. pins/screws /rods Depuy Synthes Description:Device Manufactu rer - Synthes. Device Status Text - HARDWARE-15863. Guide Wire-Ball Tip 3 X 800 - Amaral [id number] Implanted:Qty: 1 on 02/03/2009 Hardware e.g. pins/screws /rods Liliane Description:Device Manufactu rer - [place] Angel.. Device Status Text - HARDWARE- 04790. [facility] Data - [id number]. Hip Stm Prs Cmnt Rt 3 200 - [id number] Implanted:Qty: 1 on 05/23/2023 by Félix Mckeon M.D. at [facility] Hip Implant Right: Hip Depuy Synthes 08/16/2032 [id number] / / [id number] Lnr Emp Aox Std +4 40x54 - [id number] Implanted:Qty: 1 on 05/23/2023 by Félix Mckeon M.D. at [facility] Hip Implant Right: Hip Depuy Synthes 02/16/2027 4722-54-440 / / [id number] Fem Hd Art +12ofst 40 - [id number] Implanted:Qty: 1 on 05/23/2023 by Vel Vinson M.D., M.B.A. at [facility] Hip Implant Right: Hip Depuy Synthes 02/16/2033 4734-40-120 / / [id number] [facility] Jesus 518 8x80 - [id number] Implanted:Qty: 1 on 05/24/2023 by Almaz Olea M.D. at [facility] Vascular Stent [employer]. 02/24/2026 [id number] / / [id number] Explanted Type Area Comber Fixer Device Identifier Shelf Expiration Date Model / Serial / Lot Screw-Hgpii S-Tap 6.5 X 15mm - Amaral [id number] Implanted:Qty: 1 on 02/03/2009 Explanted:Qty: 1 on 05/23/2023 by Vel Vinson M.D., M.B.A. at [facility] Hardware e.g. pins/screws /rods Nori Biomet Description:Device Manufactu rer - Nori. Device Status Text - HARDWARE-41467. Small Frag-Screw Yasmany 3.5x12 - Amaral [id number] Implanted:Qty: 1 on 01/02/2004 Explanted:Qty: 1 on 05/23/2023 by Vel Vinson M.D., M.B.A. at [facility] Hardware e.g. pins/screws /rods Depuy Synthes Description:Device Manufactu rer - Synthes. Device Status Text - HARDWARE-7595. Small Frag-Screw Yasmany 3.5x16 - Amaral [id number] Implanted:Qty: 2 on 01/02/2004 Explanted:Qty: 2 on 05/23/2023 by Vel Vinson M.D., M.B.A. at [facility] Hardware e.g. pins/screws /rods Depuy Synthes Description:Device Manufactu rer - Synthes. Device Status Text - HARDWARE-7597. Pelvic Re-Plate Cvd 3.5x 6ho - Amaral [id number] Implanted:Qty: 1 on 01/02/2004 Explanted:Qty: 1 on 05/23/2023 by Félix Mckeon M.D. at [facility] Hardware e.g. pins/screws /rods Depuy Synthes Description:Device Manufactu rer - Synthes. Device Status Text - HARDWARE-7366. Right Hip Screw-Hgpii S-Tap 6.5 X 30mm - Amaral [id number] Implanted:Qty: 2 on 02/03/2009 Explanted:Qty: 2 on 05/23/2023 by Vel Vinson M.D., M.B.A. at [facility] Hardware e.g. pins/screws /rods Nori Biomet Description:Device Manufactu rer - Nori. Device Status Text - HARDWARE-43865. Screw-Hgpii S-Tap 6.5 X 35mm - Amaral [id number] Implanted:Qty: 1 on 02/03/2009 Explanted:Qty: 1 on 05/23/2023 by Vel Vinson M.D., M.B.A. at [facility] Hardware e.g. pins/screws /rods Nori Biomet Description:Device Manufactu rer - Nori. Device Status Text - HARDWARE-26469. 6.5 Saniya Screw-16mm Thread 65 - Amaral [id number] Implanted:Qty: 1 on 01/02/2004 Explanted:Qty: 1 on 05/23/2023 by Vel Vinson M.D., M.B.A. at [facility] Hardware e.g. pins/screws /rods Depuy Synthes Description:Device Manufactu rer - Synthes. Device Status Text - HARDWARE-76256. Implex-Shell Hedro 54mm - Amaral [id number] Implanted:Qty: 1 on 02/03/2009 Explanted:Qty: 1 on 05/23/2023 by Vel Vinson M.D., M.B.A. at [facility] Hip Implant Other/Legacy - See Implant Description Nori Biomet Description:Device Manufactu rer - Nori. Body Location - Other. Right. Device Status Text - HIP IMP-[id number]. Cross-Stem Perkins 8 Hi - Amaral [id number] Implanted:Qty: 1 on 02/03/2009 Explanted:Qty: 1 on 05/23/2023 by Vel Vinson M.D., M.B.A. at [facility] Hip Implant Other/Legacy - See Implant Description [employer] Description:Device Manufactu rer - J & J Ortho. Body Location - Other. Right. Device Status Text - HIP IMP-118227. Nori Liner 0 Degree 32 X 54m - Amaral [id number] Implanted:Qty: 1 on 02/03/2009 Explanted:Qty: 1 on 05/23/2023 by Vel Vinson M.D., M.B.A. at [facility] Hip Implant Other/Legacy - See Implant Description Nori Biomet Description:Device Manufactu rer - Nori. Body Location - Other. Right. Device Status Text - HIP IMP-675599. Dep. Head Prodigy 32 + 1.0 - Amaral [id number] Implanted:Qty: 1 on 02/03/2009 Explanted:Qty: 1 on 05/23/2023 by Vel Vinson M.D., M.B.A. at [facility] Hip Implant Other/Legacy - See Implant Description [employer] Description:Device Manufactu rer - J & J Ortho. Body Location - Other. Right. Device Status Text - HIP IMP-464314. Procedures * The patient is currently admitted. [...] ALBUMIN, RANDOM, U Routine 03/10/2023 11:30 AM MACHINE CLOTHING MAN Diabetes Mellitus Type 2 Ulcer Foot Hyperglycemic (HCC) from Last 3 Months or Most Recently Relevant to Health Maintenance Results * Glucose, POCT (12/01/2023 12:06 PM CDT) Only the most recent of10 resultswithin the time period is included. Pathologist [facility] Glucose, POCT, B 90 70 - 140 mg/dL 12/01/2023 12:33 PM CDT PCLX Site Capillary 12/01/2023 12:33 PM CDT PCLX Last Intake 3-4 hours 12/01/2023 12:33 PM CDT PCLX Blood 12/01/2023 12:0 6 PM CDT 12/01/2023 12:33 PM CDT us Unknown Provider LAB POCT ORDERABLES-MANUAL Cata l Result POC [facility] [address] [place] [address], [facility] PCLX [facility] POC [address] [place] [address] * (ABNORMAL) CBC without Differential (11/30/2023 6:54 AM CDT) Pathologist [facility] Hemoglobin 10.0(L) 13.2 - 16.6 g/dL 11/30/2023 [...] Dsouza M.D. LAB BLOOD ADD-ON Final Result [facility] [address] [place] [address], [facility] [address] [place] [address] * Basic Metabolic Panel (11/30/2023 6:54 AM [...] 6:54 AM CDT 11/30/2023 7:34 AM CDT us Theodore Dsouza M.D. LAB BLOOD ADD-ON Final Result [facility] [address] [place] [address], [facility] [address] [place] [address] * (ABNORMAL) Morphology Eval (special smear) (11/29/2023 [...] CDT 11/29/2023 8:18 AM CDT us Zahira Shaw APRN, C.N.P., D.N.P. LAB BLOOD ADD-ON Final Result Performing Organization Address [facility]/ZIP Co de Phone Number [facility] [address] [place] [address], [facility] [address] [place] [address] * (ABNORMAL) Iron and Total Iron-Binding Capacity (11/29/2023 7:49 AM CDT) Pathologist [facility] Iron 60 50 - 150 mcg/dL 11/29/2023 8:52 AM CDT DTL Total Iron Binding Capacity 241(L) 250 - 400 mcg/dL 11/29/2023 8:52 AM CDT DTL Percent Saturation 25 14 - 50 % 11/29/2023 8:52 AM CDT DTL Blood (Blood, Venous) 11/29/2023 7:49 AM CDT 11/29/2023 8:33 AM CDT Zahira Shaw APRN, C.N.P., D.N.P. LAB BLOOD ADD-ON Final Result Performing Organization Address [facility] Co de Phone Number [facility] [address] [place] [address], [facility] [address] [place] [address] * (ABNORMAL) CBC with Differential, Blood (11/29/2023 7:49 AM CDT) Only the most recent of3 resultswithin the time period is included. Hemoglobin 10.3(L) 13.2 - 16.6 g/dL 11/29/2023 [...] C.N.P., D.N.P. LAB BLOOD ADD-ON Final Result [facility] [address] [place] [address], [facility] DTL [facility] [address] [place] [address] DHPM [facility] [address] [place] [address] * Folate (11/29/2023 7:49 AM CDT) [facility] Folate, S >20.0 >=4.0 mcg/L 12/01/2023 8: 08 AM CDT DTL Blood (Blood, Venous) 11/29/2023 7:49 AM CDT 11/29/2023 8:33 AM CDT Zahira Shaw APRN, C.N.P., D.N.P. LAB BLOOD ADD-ON Final Result Performing Organization Address [facility] Co de Phone Number [facility] [address] [place] [address], [facility] [address] [place] [address] * Vitamin B12 Assay (11/29/2023 7:49 AM CDT) [facility] Vitamin B12 Assay, S 585 180 - [...] ADD-ON Final Result Performing Organization Address City/[facility]/ZIP Co de Phone Number [facility] [address] [place] [address], [facility] [address] [place] [address] * CT Abdomen Pelvis without and with [...] Hepatic Function Panel (11/28/2023 3:31 PM CDT) [facility] Bilirubin, Total, S <0.2 0.0 - 1.2 [...] CDT 11/28/2023 4:07 PM CDT Paola Solis APRN C.N.P., D.N.P., M.S.N. LAB BLOOD ADD-ON Final Result [facility] [address] [place] [address], [facility] [address] [place] [address] * Type and Screen (with Reflex Antibody ID) (11/28/2023 3:31 PM CDT) [facility] ABORh O Pos Not applicable 11/28/2023 4:02 PM CDT STRM Antibody Screen Negative Negative 11/28/2023 4:19 PM CDT STRM Type & Screen Expiration 12/01/2023 23:59 11/28/2023 4:02 PM CDT STRM Testing Location [place] DEFAULT 11/28/2023 3:44 PM CDT STRM Blood (Blood, Venous) 11/28/2023 3:31 PM CDT 11/28/2023 3:44 PM CDT Jonna Kwok M.D., J.D. LAB BLOOD BANK TEST O RDERABLES Final Result Performing Organization Address City/[facility]/ZIP Co de Phone Number [facility] [address] STRM [facility] [address] [place] [address] * Lactate (11/28/2023 3:31 PM CDT) [facility] Lactate, P 1.2 0.5 - 2.2 mmol/L 11/28/2023 3:59 PM CDT STMA Blood (Blood, Venous) 11/28/2023 3:31 PM CDT 11/28/2023 3:44 PM CDT Jonna Kwok M.D., J.D. LAB BLOOD NON ADD-ON Final Result Performing Organization Address [facility] Co de Phone Number [facility] [address] STMA [facility] [address] [place] [address] * Ferritin (11/28/2023 3:20 PM CDT) [facility] Ferritin, S 302 31 - 409 mcg/L 11/29/2023 4:22 AM CDT DTL Blood (Blood, Venous) 11/28/2023 3:20 PM CDT 11/29/2023 3:49 AM CDT Zahira Shaw APRN, C.N.P., D.N.P. LAB BLOOD ADD-ON Final Result Performing Organization Address City/[facility]/ZIP Co de Phone Number [facility] [address] [place] [address], [place] DTL [facility] [address] [place] [address] * ECG 12 Lead (11/28/2023 3:18 PM CDT) Ventricular Rate ECG/Min 58 BPM MUSE OH Interval 208 ms MUSE QRSD Interval 94 ms MUSE QT Interval 460 ms MUSE QTC Interval 451 ms MUSE R Constantia 43 degrees MUSE T Wave Constantia -22 degrees MUSE 11/28/2023 3:18 PM CDT 11/28/2023 3:27 PM CDT Impressions MUSE - 11/28/2023 3:27 PM CDT Sinus bradycardia with 1st degree A-V block Low voltage QRS Low anterior forces Nonspecific T wave abnormality When compared with ECG of 24-May-2023 12:12, OH interval has increased T wave changes QT has shortened Reviewed by MARTHA Shah Narrative Procedure Note Prudencio Painting Jr., M.D. - 11/28/2023 IMPRESSION: Sinus bradycardia with 1st degree A-V block Low voltage QRS Low anterior forces Nonspecific T wave abnormality When compared with ECG of 24-May-2023 12:12, OH interval has increased T wave changes QT has shortened Reviewed by MARTHA Shah Paola Solis APRN, C.N.P., D.N.P., M.S.N. ECG ORDERABLES Final Result MUSE NA * Albumin, Random, Urine (03/10/2023 11:30 AM MACHINE CLOTHING MAN) Microalbumin <12.0 mg/L 03/10/2023 11:54 AM MACHINE CLOTHING MAN RDWG Comment:If clinically indica faviola, contact the lab for additional testing. Creatinine 112 mg/dL 03/10/2023 11:54 AM MACHINE CLOTHING MAN [facility] Albumin/Creatinine Ratio <11 <17 mg/g 03/10/2023 11:54 AM MACHINE CLOTHING MAN [facility] Comment: This ratio may not correspond with the reference range because one or both of the values used to calculate the ratio was above or below the quantification limits. Urine (Urine, Midstream) 03/10/2023 11:30 AM MACHINE CLOTHING MAN 03/10/2023 11:30 AM MACHINE CLOTHING MAN us Doug Lima M.D. LAB URINE ORDERABLES Final R esult [facility] [address] [place] [address], [facility] RDWG [facility] [place] [address] [place] [address] from Last 3 Months or Most Recently Relevant to Health Maintenance Insurance [facility] [place] [address] [place], [place] [id number] [employer] [employer] [employer] Advance Directives For more information, please contact: [phone] * Full Code (Latest Code Status on [...] Due to: Patient not available Care Teams Geosciences Associate Professor Relationship Specialty Start Date End Date Elsewhere, Pcp PCP - General Internal Medicine 10/03/23
--- OUTSIDE RECORDS SUMMARY | 2023-12-01 19:53 | XMS_ITS | Encounter Summary ---
Author Organization [facility] Address [address] [place] [address] Care Team Providers Care Obstetrics Gyn Name Role Phone Doug Lima M.D. Primary Care Provider + [phone] Reason for Referral * Outpatient (Routine) - Authorized Specialty Diagnoses / Procedures Referred By Tammi basilio Referred To Contact Radiology Fantasma Butt M.D. [address] [place] [phone] Phone: tel: fax: Radha Ojeda P.A.-C., M.S. [address] [place] [address] Phone: tel:[phone] fax: Referral ID Status Reason Start Date Expiration Date V isits Requested Visits Authorized [id number] Authorized 08/25/2023 02/23/2025 1 1 Scheduling Instructions JONO Rojas - when dr. Butt available. To be scheduled same day as imaging study. * Outpatient (Routine) - Authorized Specialty Diagnoses / Procedures Referred By Contjustyna basilio Referred To Contact Diagnoses Stenosis Carotid Artery Right Occlusion Carotid Artery Left Procedures US Carotid Bilateral Fantasma Butt M.D. [address] [place] [phone] Phone: tel: fax: [facility] Referral ID Status Reason Start Date Expiration Date V isits Requested Visits Authorized [id number] Authorized 08/25/2023 08/24/2024 1 1 Reason for Visit * Outpatient (Routine) - Closed Specialty Diagnoses / Procedures Referred By Tammi t Referred To Contact Neurological Surgery Lachelle Crawford M.D. Lanzino, Giuseppe, M.D. [address] [place] [phone] Phone: tel: fax: Referral ID Status Reason Start Date Expiration Date Visits Re quested Visits Authorized [id number] Closed 06/25/2023 12/24/2024 1 1 Encounter Details Date Type Department Care Team (Late st Contact Info) Description 08/25/2023 3:00 PM CDT Office Visit Department of Neurologic Surgery in [place], [place] [address] [place] [phone] Fantasma Butt M.D. [address] [place] [phone] Stenosis Carotid Artery Right (Primary Dx); Occlusion Carotid Artery Left Social History Tobacco Use Types Packs/Day Years Used Date Smoking Tobacco: Never Passive Smoke Exposure: Never Smokeless Tobacco: Never Alcohol Use Standard Drinks/Week Comments Never 2 (1 standard drink = 0.6 oz pur e alcohol) [facility] Utilities Answer Date Recorded In the past 12 months has [employer], oil, or water [employer] threatened to shut off services in your [...] PM CDT Legal Sex Male 6:41 AM STRUCTURES ENGINEER Gender Identity Male 07/26/2022 1:32 PM CDT [...] (Latest Contact Info) Description 01/02/2024 11:30 AM STRUCTURES ENGINEER Clinical Communication Virtual Review in [address] [phone] 01/05/2024 9:20 AM STRUCTURES ENGINEER Lab Department of Infusion Therapy in [address] [phone] Vel Vinson M.D., M.B.A. [address] [place] [phone] 01/05/2024 10:15 AM STRUCTURES ENGINEER Appointment Department of Radiology, [facility], in [address] [phone] Vel Vinson M.D., M.B.A. [address] [place] [phone] 01/05/2024 10:45 AM STRUCTURES ENGINEER Comprehensive Visit Section of Infectious Diseases in [address] [phone] Maddy Bingham P.A.-C. [address] [place] [phone] 01/05/2024 11:15 AM STRUCTURES ENGINEER Office Visit Department of Orthopedic Surgery in [place], [place] [address] [place] [address] Vel Vinson M.D., M.B.A. [address] [place] [phone] 01/05/2024 2:30 PM STRUCTURES ENGINEER Comprehensive Visit Preoperative Evaluation Center in [place], [place] [address] [place] [address] Vel Vinson M.D., M.B.A. [address] [place] [phone] 01/06/2024 7:25 AM STRUCTURES ENGINEER Hospital Encounter RST ROEI 02 4 AM ADMIT [address] [place] [phone] Vel Vinson M.D., M.B.A. [address] [place] [phone] 01/06/2024 7:25 AM STRUCTURES ENGINEER - 01/06/2024 12:11 PM STRUCTURES ENGINEER Surgery RST RO MAIN OR [address] [place] [address] Vel Vinson M.D., M.B.A. [address] [place] [phone] ARTHROPLASTY REVISION FEMORAL+ACETABULAR HIP Scheduled Orders Name Type Priority Associated Diagnoses Orde r Schedule US Carotid Bilateral Imaging Stenosis Carotid Artery Right Occlusion Carotid Artery Left Expected: 02/25/2024, Expires: 08/24/2024 Scheduled Procedures Name Priority Associated Diagnoses Date/Ti me ARTHROPLASTY REVISION FEMORAL+ACETABULAR HIP Infection Total Hip Arthroplasty Subsequent Right 01/06/2024 7:25 AM STRUCTURES ENGINEER Scheduled Referrals Name Type Priority Associated Diagnoses Order Schedule Interventional Radiology office visit (clinic) Outpatient Referral Routine Expected: 02/25/2024, Expires: 11/24/2024 documented as of this encounter Visit Diagnoses Diagnosis Stenosis Carotid Artery Right- Primary Occlusion Carotid Artery Left Infection Total Hip Arthroplasty Subsequent Right documented in this encounter Care Teams Obstetrics Gyn Relationship Specialty Start Date End Date Doug Lima M.D. [address] [place] [phone] PCP - General Family Medicine 01/28/17 10/02/23 documented as of this encounter
--- OUTSIDE RECORDS SUMMARY | 2023-12-01 19:53 | XMS_ITS | Encounter Summary ---
Author Organization [facility] Address 200 [place] [address] Care Team Providers Care Special Education Case Manager Name Role Phone Doug Lima M.D. Primary Care Provider + [phone] Reason for Referral * Outpatient (Routine) - Closed Specialty Diagnoses / Procedures Referred By Tammi basilio Referred To Contact Diagnoses Stenosis Carotid Artery Bilateral Procedures US Carotid Bilateral Radha Ojeda P.A.-C., M.S. 200 [place] [address] Phone: tel:[phone] fax: [facility] Referral ID Status Reason Start Date Expiration Date Visits Re quested Visits Authorized [id number] Closed 04/16/2023 04/15/2024 1 1 Reason for Visit * Outpatient (Routine) - Closed Specialty Diagnoses / Procedures Referred By Tammi basilio Referred To Contact Diagnoses Stenosis Carotid Artery Bilateral Procedures US Carotid Bilateral Radha Ojeda P.A.-C., M.S. 200 [place] [address] Phone: tel:[phone] fax: [facility] Referral ID Status Reason Start Date Expiration Date Visits Re quested Visits Authorized [id number] Closed 04/16/2023 04/15/2024 1 1 Encounter Details Date Type Department Care Team (Latest Contact Info) Description 08/25/2023 12:11 PM CDT - 08/25/2023 11:59 PM CDT Hospital Encounter Department of Radiology, [facility], in [place], [place] 200 [place] [address] Radha Ojeda P.A.-C., M.S. 200 [place] [address] Stenosis Carotid Artery Bilateral Discharge Disposition: Home or Self Care Social History Tobacco Use Types Packs/Day Years Used Date Smoking Tobacco: Never Passive Smoke Exposure: Never Smokeless Tobacco: Never Alcohol Use Standard Drinks/Week Comments Never 2 (1 standard drink = 0.6 oz pur e alcohol) [facility] Utilities Answer Date Recorded In the past 12 months has e [employer], gas, oil, or water [employer] threatened to shut off services in your [...] PM CDT Legal Sex Male 6:41 AM PEDIATRIC ASSOCIATE Gender Identity Male 07/26/2022 1:32 PM CDT Sexual Orientation Straight 07/26/2022 1: 32 PM CDT documented as of this encounter Medications at Time of Discharge acetaminophen (TYLENOL) 500 mg tablet Take 2 tablets (1,000 mg total) by mouth every 6 (six) hours as needed for mild pain or score 1-3 of 10 or moderate pain or score 4-6 of 10. 03/20/2023 atorvastatin (LIPITOR) 20 mg tablet Take 1 tablet (20 mg total) by mouth at bedtime. 30 tablet 1 06/25/2023 blood glucose ctl high,nml,low solution Glucose control solution provides an easy way to ensure accurate blood glucose testing. 1 each 07/29/2022 blood sugar diagnostic strips 1 test daily. 30 test 07/29/2022 blood-glucose meter ([employer]Style Hampton) kit Use as instructed 1 each 07/29/2022 carboxymethylcellu lose (REFRESH PLUS) 0.5 % ophthalmic solution Administer 2 drops into both eyes 4 (four) times a day as needed for dry eyes. 50 each 06/25/2023 flash glucose scanning reader ([employer] Jessica 2 Gratis) miscIndications:Di abetes Mellitus Type 2 Ulcer Foot Hyperglycemic (HCC) 1 each (1 Device total) continuously. 1 each 1 08/01/2022 flash glucose sensor (FreeStyle Jessica 2 Sensor) kitIndications:Bhargavi pinto Mellitus Type 2 Ulcer Foot Hyperglycemic (HCC) 2 each (2 kits total) every 14 (fourteen) days. 2 kit 11 10/09/2022 insulin NPH (NovoLIN N FlexPen) 100 unit/mL (3 mL) injection Inject 10-20 Units under the skin 2 (two) times a day with meals. 15 mL 11 06/25/2023 lancets 1 each daily. 50 each 07/29/2022 levETIRAcetam (Keppra) 100 mg/mL solution Take 7.5 mL (750 mg total) by mouth 2 (two) times a day. 06/25/2023 Novofine Autocover 30 gauge x 1/3 needle 06/25/2023 pen needle, diabetic (BD Ultra-Fine Short Pen Needle) 31 gauge x 5/16 needle 1 Injection daily. 100 each 3 12/31/2022 amitriptyline 2%,gabapentin 5%,lidocaine 5%-vanicream Apply topically 2 (two) times a day. Apply to affected area. 60 g 3 06/25/2023 4 bisacodyL (DULCOLAX) 5 mg EC tablet Take 2 tablets (10 mg total) by mouth 2 (two) times a day as needed for constipation. 06/25/2023 calcium carbonate (TUMS) 500 mg (200 mg calcium) chewable tablet Administer 1 tablet (200 mg of calcium total) via gastric tube every 2 (two) hours as needed for indigestion or heartburn. 06/25/2023 enoxaparin (LOVENOX) 40 mg/0.4 mL injection Inject 0.4 mL (40 mg total) under the skin 2 (two) times a day. 06/26/2023 hydrocortisone 1 % ointment Apply topically as needed. 08/11/2023 nystatin (Mycostatin) 100,000 unit/gram cream Apply 1 Application topically as needed. 08/11/2023 4 oxyCODONE (Roxicodone) 5 mg immediate release tablet Take 5 mg by mouth as needed. 07/11/2023 4 zinc oxide 20 % ointment Apply topically as needed. 07/31/2023 4 documented as of this encounter Plan of Treatment Upcoming Encounters Date Type Department Care Team (Latest Contact Info) Description 01/02/2024 11:30 AM PEDIATRIC ASSOCIATE Clinical Communication Virtual Review in [place], [place] 200 [place] [phone] 01/05/2024 9:20 AM PEDIATRIC ASSOCIATE Lab Department of Infusion Therapy in [place], [place] [address] [place] [phone] Vel Vinson M.D., M.B.A. [address] [place] [phone] 01/05/2024 10:15 AM PEDIATRIC ASSOCIATE Appointment Department of Radiology, [facility], in [place], [place] [address] [place] [phone] Vel Vinson M.D., M.B.A. [address] [place] [phone] 01/05/2024 10:45 AM PEDIATRIC ASSOCIATE Comprehensive Visit Section of Infectious Diseases in [address] [phone] Maddy Bingham P.A.-C. [address] [place] [phone] 01/05/2024 11:15 AM PEDIATRIC ASSOCIATE Office Visit Department of Orthopedic Surgery in [place], [place] [address] [place] [phone] Vel Vinson M.D., M.B.A. [address] [place] [phone] 01/05/2024 2:30 PM PEDIATRIC ASSOCIATE Comprehensive Visit Preoperative Evaluation Center in [place], [place] [address] [place] [address] Vel Vinson M.D., M.B.A. [address] [place] [phone] 01/06/2024 7:25 AM PEDIATRIC ASSOCIATE Hospital Encounter RST RO 02 4 AM ADMIT [address] [place] [address] Vel Vinson M.D., M.B.A. [address] [place] [address] 01/06/2024 7:25 AM PEDIATRIC ASSOCIATE - 01/06/2024 12:11 PM PEDIATRIC ASSOCIATE Surgery RST [facility] MAIN OR [address] [place] [address] Vel Vinson M.D., M.B.A. [address] [place] [address] ARTHROPLASTY REVISION FEMORAL+ACETABULAR HIP Scheduled Procedures Name Priority Associated Diagnoses Date/Ti me ARTHROPLASTY REVISION FEMORAL+ACETABULAR HIP Infection Total Hip Arthroplasty Subsequent Right 01/06/2024 7:25 AM PEDIATRIC ASSOCIATE documented as of this encounter Procedures Procedure [...] normal distal ICA in accordance with [place] Symptomatic Carotid Endarterectomy Trial (NASCET). Procedure Note [...] the ICA. Velocities in the stent of [id number]/sec with mild narrowing of the stent seen [...] left ICA. Velocities in the stent of xuoxkiprq862et/sec with mild narrowing of the stent seen and velocities proximal tothis narrowing are 82cm/sec. Findings consistent with mild in stentnarrowing. No significant stenosis. 3) Stable bilateral ECA stenoses. 4) Right vertebral artery 50-69% stenosis, at the lower end of the range.Stable left vertebral artery 70-99% stenosis. us Radha Ojeda P.A.-C., M.S. [facility] PROC[facility] Fi [facility]al Result documented in this encounter Visit Diagnoses Diagnosis Stenosis Carotid Artery Bilateral Infection Total Hip Arthroplasty Subsequent Right documented in this encounter Care Teams Special Education Case Manager Relationship Specialty Start Date End Date Doug Lima M.D. [address] [place] [phone] PCP - General Family Medicine 01/28/17 10/02/23 documented as of this encounter
--- OUTSIDE RECORDS SUMMARY | 2023-12-01 19:53 | XMS_ITS | Encounter Summary ---
Author Organization [facility] Address 200 [place] [address] Care Team Providers Care Sales Support Coordinator Name Role Phone Elsewhere, Pcp Primary Care Provider Unavailabl e Reason for Referral * Outpatient (Routine) - Authorized Specialty Diagnoses / Procedures Referred By Tammi basilio Referred To Contact Neurology Balbir Maradiaga M.D. 200 [place] [address] Phone: tel: fax: [facility] Referral ID Status Reason Start Date Expiration Date V isits Requested Visits Authorized [id number] Authorized 10/03/2023 04/03/2025 1 1 Scheduling Instructions Please schedule for after electroencephalogram in May of 2024 * Outpatient (Routine) - Authorized Specialty Diagnoses / Procedures Referred By Contac t Referred To Contact Diagnoses Seizure (HCC) Procedures EEG routine - awake and sleep Balbir Maradiaga M.D. 200 [place] [address] Phone: tel: fax: [facility] Referral ID Status Reason Start Date Expiration Date V isits Requested Visits Authorized [id number] Authorized 10/03/2023 10/02/2024 1 1 Reason for Visit * Outpatient (Routine) - Closed Specialty Diagnoses / Procedures Referred By Contac t Referred To Contact Neurology Diagnoses Stroke (HCC) Veronica Hill M.D., M.S. [address] [place] [address] Phone: tel: fax: [facility] Referral ID Status Reason Start Date Expiration Date Visits Re quested Visits Authorized [id number] Closed 06/25/2023 12/24/2024 1 1 Encounter Details Date Type Department Care Team (Latest Contact Info) Description 10/03/2023 1:00 PM CDT Comprehensive Visit Department of Neurology in [place], [place] [address] [place] [phone] Balbir Maradiaga M.D. [address] [place] [address] Stroke Cerebrovascular Accident Personal History (Primary Dx); Seizure (HCC); Stenosis Carotid Artery Left Social History Tobacco Use Types Packs/Day Years Used Date Smoking Tobacco: Never Passive Smoke Exposure: Never Smokeless Tobacco: Never Alcohol Use Standard Drinks/Week Comments Never 2 (1 standard drink = 0.6 oz pur e alcohol) [facility] Engagement Labsities Answer Date Recorded In the past 12 months has [employer], gas, oil, or water [employer] threatened to shut off services in your [...] PM CDT Legal Sex Male 6:41 AM HVAC/R SERVICE TECHNICIAN Gender Identity Male 07/26/2022 1:32 PM CDT [...] h is sister, Lor, sister Annamaria, and sqajajj-ae-lme, Ashutosh who help provide co- lateral history. Jaysonischarged from the hospital to a [facility]. He continues to work with physical therapy [...] proprioception on the right hemibody. Noneglect. Coordination: Cegtkj-pm-roxf and eser-vh-lotf testing is normal on the left. ASSESSMENT [...] note. This patient was well known to [facility], he was a 58-year-old [...] stroke-like symptoms. He was currently at a [facility] facility receiving therapies for stroke recovery. Antithrombotics [...] global yet motor predominant aphasia that is civy-oo-czuovzpw and a right hemiparesis with some movement [...] (Latest Contact Info) Description 01/02/2024 11:30 AM HVAC/R SERVICE TECHNICIAN Clinical Communication Virtual Review in [address] [phone] 01/05/2024 9:20 AM HVAC/R SERVICE TECHNICIAN Lab Department of Infusion Therapy in [place], [place] [address] [place] [phone] Vel Vinson M.D., M.B.A. [address] [place] [phone] 01/05/2024 10:15 AM HVAC/R SERVICE TECHNICIAN Appointment Department of Radiology, [facility], in [place], [place] [address] [place] [phone] Vel Vinson M.D., M.B.A. [address] [place] [phone] 01/05/2024 10:45 AM HVAC/R SERVICE TECHNICIAN Comprehensive Visit Section of Infectious Diseases in [place], [place] [address] [place] [phone] Maddy Bingham P.A.-C. [address] [place] [phone] 01/05/2024 11:15 AM HVAC/R SERVICE TECHNICIAN Office Visit Department of Orthopedic Surgery in [address] [phone] Vel Vinson M.D., M.B.A. [address] [place] [phone] 01/05/2024 2:30 PM HVAC/R SERVICE TECHNICIAN Comprehensive Visit Preoperative Evaluation Center in [place], [place] [address] [place] [phone] Vel Vinson M.D., M.B.A. [address] [place] [phone] 01/06/2024 7:25 AM HVAC/R SERVICE TECHNICIAN Hospital Encounter RST ROEI 02 4 AM ADMIT [address] [place] [phone] Vel Vinson M.D., M.B.A. [address] [place] [address] 01/06/2024 7:25 AM HVAC/R SERVICE TECHNICIAN - 01/06/2024 12:11 PM HVAC/R SERVICE TECHNICIAN Surgery [facility] MAIN OR [address] [place] [address] Vel Vinson M.D., M.B.A. [address] [place] [address] ARTHROPLASTY REVISION FEMORAL+ACETABULAR HIP Scheduled Orders Name Type Priority Associated Diagnoses Orde r Schedule EEG routine - awake and sleep Neurology Routine Seizure (HCC) Expected: 10/02/2024, Expires: 01/02/2025 Scheduled Procedures Name Priority Associated Diagnoses Date/Ti me ARTHROPLASTY REVISION FEMORAL+ACETABULAR HIP Infection Total Hip Arthroplasty Subsequent Right 01/06/2024 7:25 AM HVAC/R SERVICE TECHNICIAN Scheduled Referrals Name Type Priority Associated Diagnoses Orde r Schedule Neurology office visit (clinic) Outpatient Referral Routine Expected: 10/02/2024, Expires: 01/02/2025 documented as of this encounter Visit Diagnoses Diagnosis Infection Total Hip Arthroplasty Subsequent Right- Primary Stroke Cerebrovascular Accident Personal History- Primary Seizure (HCC) Stenosis Carotid Artery Left Infection Total Hip Arthroplasty Subsequent Right documented in this encounter Care Teams Sales Support Coordinator Relationship Specialty Start Date End Date Elsewhere, Pcp PCP - General Internal Medicine 10/03/23 documented as of this encounter
--- OUTSIDE RECORDS SUMMARY | 2023-12-01 19:53 | XMS_ITS ---
Author Organization [facility] Address [address] [place] [address] Care Team Providers Care Board Filler Name Role Phone Elsewhere, Pcp Primary Care Provider Unavailabl e OPAT Status:Pending (Paused) Start date:05/27/2023 Enrollment date:06/06/2023 Related service episodes:Adult OPAT Service Episode (Declined) Continued Care and Services Coordination
--- OUTSIDE RECORDS SUMMARY | 2023-12-01 19:53 | XMS_ITS | Encounter Summary ---
Author Organization [facility] Address [address] [place] [address] Care Team Providers Care Educational Advisor Name Role Phone Doug Lima M.D. Primary Care Provider + [phone] Encounter Details Date Type Department Care Team (Late st Contact Info) Description 08/26/2023 Orders Only [facility] Lima M.[facility]. [address] [place] [address] Diabetes Mellitus Type 2 Peripheral Neuropathy (HCC) Social History Tobacco Use Types Packs/Day Years Used Date Smoking Tobacco: Never Passive Smoke Exposure: Never Smokeless Tobacco: Never Alcohol Use Standard Drinks/Week Comments Never 2 (1 standard drink = 0.6 oz pur e alcohol) [facility] Utilities Answer Date Recorded In the past 12 months has e [employer], gas, oil, or water [employer] threatened to shut off services in your [...] PM CDT Legal Sex Male 6:41 AM LICENSED OCCUPATIONAL THERAPIST Gender Identity Male 07/26/2022 1:32 PM CDT Sexual Orientation Straight 07/26/2022 1: 32 PM CDT documented as of this encounter Plan of Treatment Upcoming Encounters Date Type Department Care Team (Latest Contact Info) Description 01/02/2024 11:30 AM LICENSED OCCUPATIONAL THERAPIST Clinical Communication Virtual Review in [place], [place] 200 [place] [address] 01/05/2024 9:20 AM LICENSED OCCUPATIONAL THERAPIST Lab Department of Infusion Therapy in [place], [place] [address] [place] [phone] Vel Vinson M.D., M.B.A. [address] [place] [phone] 01/05/2024 10:15 AM LICENSED OCCUPATIONAL THERAPIST Appointment Department of Radiology, [facility], in [place], [place] [address] [place] [phone] Vel Vinson M.D., M.B.A. [address] [place] [phone] 01/05/2024 10:45 AM LICENSED OCCUPATIONAL THERAPIST Comprehensive Visit Section of Infectious Diseases in [place], [place] [address] [place] [phone] Maddy Bingham P.A.-C. [address] [place] [phone] 01/05/2024 11:15 AM LICENSED OCCUPATIONAL THERAPIST Office Visit Department of Orthopedic Surgery in [place], [place] [address] [place] [phone] Vel Vinson M.D., M.B.A. [address] [place] [phone] 01/05/2024 2:30 PM LICENSED OCCUPATIONAL THERAPIST Comprehensive Visit Preoperative Evaluation Center in [place], [place] [address] [place] [phone] Vel Vinson M.D., M.B.A. [address] [place] [phone] 01/06/2024 7:25 AM LICENSED OCCUPATIONAL THERAPIST Hospital Encounter RST ROEI 02 4 AM ADMIT [address] [place] [phone] Vel Vinson M.D., M.B.A. [address] [place] [address] 01/06/2024 7:25 AM LICENSED OCCUPATIONAL THERAPIST - 01/06/2024 12:11 PM LICENSED OCCUPATIONAL THERAPIST Surgery [facility] MAIN OR [address] [place] [address] Vel Vinson M.D., M.B.A. [address] [place] [address] ARTHROPLASTY REVISION FEMORAL+ACETABULAR HIP Scheduled Procedures Name Priority Associated Diagnoses Date/Ti me ARTHROPLASTY REVISION FEMORAL+ACETABULAR HIP Infection Total Hip Arthroplasty Subsequent Right 01/06/2024 7:25 AM LICENSED OCCUPATIONAL THERAPIST documented as of this encounter Visit Diagnoses Diagnosis Diabetes Mellitus Type 2 Peripheral Neuropathy (HCC) Infection Total Hip Arthroplasty Subsequent Right documented in this encounter Care Teams Educational Advisor Relationship Specialty Start Date End Date Doug Lima M.D. [address] [place] [phone] PCP - General Family Medicine 01/28/17 10/02/23 documented as of this encounter
--- OUTSIDE RECORDS SUMMARY | 2023-12-01 19:53 | XMS_ITS | Encounter Summary ---
Author Organization [facility] Address [address] [place] [address] Care Team Providers Care Corporate Development Intern Name Role Phone Doug Lima M.D. Primary Care Provider + [phone] Reason for Visit * Outpatient (Routine) - Closed Specialty Diagnoses / Procedures Referred By Tammi basilio Referred To Contact Orthopedic Surgery Xavi Hicks M.D. [address] [place] [phone] Phone: tel: fax: Vel Vinson M.D., M.B.A. [address] [place] [phone] Phone: tel: fax: Referral ID Status Reason Start Date Expiration Date Visits Re quested Visits Authorized [id number] Closed 05/16/2023 11/14/2024 1 1 Encounter Details Date Type Department Care Team (Late st Contact Info) Description 08/25/2023 8:15 AM CDT Office Visit Department of Orthopedic Surgery in [place], [place] [address] [place] [phone] Vel Vinson M.D., M.B.A. [address] [place] [phone] Infection Total Hip Arthroplasty Subsequent Right (Primary [...] th e electric, gas, oil, or water [employer] threatened to shut off services in your [...] PM CDT Legal Sex Male 6:41 AM GUEST REQUEST RUNNER Gender Identity Male 07/26/2022 1:32 PM CDT Sexual Orientation Straight 07/26/2022 1: 32 PM CDT documented as of this encounter Progress Notes * Brittney Mcdaniel, DC, P.A.-C. - 08/25/2023 8:15 AM CDT POST-OPERATIVE VISIT [...] him to proceed with having surgery again. Jose Ltarun continue working with rehabilitation on mild motor [...] (Latest Contact Info) Description 01/02/2024 11:30 AM GUEST REQUEST RUNNER Clinical Communication Virtual Review in [place], [place] 200 [place] [address] 01/05/2024 9:20 AM GUEST REQUEST RUNNER Lab Department of Infusion Therapy in [place], [place] [address] [place] [phone] Vel Vinson M.D., M.B.A. [address] [place] [phone] 01/05/2024 10:15 AM GUEST REQUEST RUNNER Appointment Department of Radiology, [facility], in [place], [place] [address] [place] [phone] Vel Vinson M.D., M.B.A. [address] [place] [phone] 01/05/2024 10:45 AM GUEST REQUEST RUNNER Comprehensive Visit Section of Infectious Diseases in [address] [phone] Maddy Bingham P.A.-C. [address] [place] [phone] 01/05/2024 11:15 AM GUEST REQUEST RUNNER Office Visit Department of Orthopedic Surgery in [address] [phone] Vel Vinson M.D., M.B.A. [address] [place] [phone] 01/05/2024 2:30 PM GUEST REQUEST RUNNER Comprehensive Visit Preoperative Evaluation Center in [address] [phone] Vel Vinson M.D., M.B.A. [address] [place] [phone] 01/06/2024 7:25 AM GUEST REQUEST RUNNER Hospital Encounter [facility] 02 4 AM ADMIT [address] [place] [address] Vel Vinson M.D., M.B.A. [address] [place] [phone] 01/06/2024 7:25 AM GUEST REQUEST RUNNER - 01/06/2024 12:11 PM GUEST REQUEST RUNNER Surgery [facility] MAIN OR [address] [place] [address] Vel Vinson M.D., M.B.A. [address] [place] [phone] ARTHROPLASTY REVISION FEMORAL+ACETABULAR HIP Scheduled Procedures Name Priority Associated Diagnoses Date/Ti me ARTHROPLASTY REVISION FEMORAL+ACETABULAR HIP Infection Total Hip Arthroplasty Subsequent Right 01/06/2024 7:25 AM GUEST REQUEST RUNNER documented as of this encounter Visit Diagnoses Diagnosis Infection Total Hip Arthroplasty Subsequent Right- Primary Stroke (HCC) Infection Total Hip Arthroplasty Subsequent Right documented in this encounter Care Teams Corporate Development Intern Relationship Specialty Start Date End Date Doug Lima M.D. [address] [place] [phone] PCP - General Family Medicine 01/28/17 10/02/23 documented as of this encounter
--- OUTSIDE RECORDS SUMMARY | 2023-12-01 19:53 | XMS_ITS | Encounter Summary ---
Author Organization [facility] Address [address] [place] [address] Care Team Providers Care Electro Plater Name Role Phone Doug Lima M.D. Primary Care Provider + [phone] Encounter Details Date Type Department Care Team (Latest Contact Info) Description 09/24/2023 2:45 PM CDT Clinical Communication Virtual Review in [place], [place] 200 [place] [phone] Social History Tobacco Use Types Packs/Day Years Used Date Smoking Tobacco: Never Passive Smoke Exposure: Never Smokeless Tobacco: Never Tobacco Cessation:Counseling Given: Not Answered Alcohol Use Standard Drinks/Week Comments Never 2 (1 standard drink = 0.6 oz pur e alcohol) [facility] Utilities Answer Date Recorded In the past 12 months has e [employer], gas, oil, or water [employer] threatened to shut off services in your [...] PM CDT Legal Sex Male 6:41 AM ACID CLEANER Gender Identity Male 07/26/2022 1:32 PM CDT Sexual Orientation Straight 07/26/2022 1: 32 PM CDT documented as of this encounter Plan of Treatment Upcoming Encounters Date Type Department Care Team (Latest Contact Info) Description 01/02/2024 11:30 AM ACID CLEANER Clinical Communication Virtual Review in [place], [place] [address] [place] [address] 01/05/2024 9:20 AM ACID CLEANER Lab Department of Infusion Therapy in [place], [place] [address] [place] [phone] Vel Vinson M.D., M.B.A. [address] [place] [phone] 01/05/2024 10:15 AM ACID CLEANER Appointment Department of Radiology, [facility], in [place], [place] [address] [place] [address] Vel Vinson M.D., M.B.A. [address] [place] [phone] 01/05/2024 10:45 AM ACID CLEANER Comprehensive Visit Section of Infectious Diseases in [place], [place] [address] [place] [phone] Maddy Bingham P.A.-C. [address] [place] [phone] 01/05/2024 11:15 AM ACID CLEANER Office Visit Department of Orthopedic Surgery in [place], [place] [address] [place] [phone] Vel Vinson M.D., M.B.A. [address] [place] [phone] 01/05/2024 2:30 PM ACID CLEANER Comprehensive Visit Preoperative Evaluation Center in [place], [place] [address] [place] [phone] Vel Vinson M.D., M.B.A. [address] [place] [phone] 01/06/2024 7:25 AM ACID CLEANER Hospital Encounter [facility] 02 4 AM ADMIT [address] [place] [phone] Vel Vinson M.D., M.B.A. [address] [place] [phone] 01/06/2024 7:25 AM ACID CLEANER - 01/06/2024 12:11 PM ACID CLEANER Surgery [facility] MAIN OR [address] [place] [address] Vel Vinson M.D., M.B.A. [address] [place] [phone] ARTHROPLASTY REVISION FEMORAL+ACETABULAR HIP Scheduled Procedures Name Priority Associated Diagnoses Date/Ti me ARTHROPLASTY REVISION FEMORAL+ACETABULAR HIP Infection Total Hip Arthroplasty Subsequent Right 01/06/2024 7:25 AM ACID CLEANER documented as of this encounter Visit Diagnoses Not on filedocumented in this encounter Care Teams Electro Plater Relationship Specialty Start Date End Date Doug Lima M.D. [address] [place] [phone] PCP - General Family Medicine 01/28/17 10/02/23 documented as of this encounter
--- OUTSIDE RECORDS SUMMARY | 2023-12-01 19:53 | XMS_ITS | Encounter Summary ---
Author Organization [facility] Address 200 [place] [address] Care Team Providers Care Administration Intern Name Role Phone Doug Lima M.D. 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 200 [place] [address] Phone: tel: fax: [facility] Referral ID Status Reason Start Date Expiration Date Visits Re quested Visits Authorized [id number] Closed 08/27/2023 08/26/2024 1 1 Encounter Details Date Type Department Care Team (Latest Contact Info) Description 08/28/2023 11:00 AM CDT Internal E-Consult Department of Vascular Medicine in [place], [place] [address] [place] [phone] Gaudencio Escobedo M.D. [address] [place] [phone] Occlusion Carotid Artery Left (Primary Dx); Stenosis [...] 0.6 oz pur e alcohol) [facility] Utilities Answer Date Recorded In [...] PM CDT Legal Sex Male 6:41 AM PRINTER MACHINE Gender Identity Male 07/26/2022 1:32 PM CDT Sexual Orientation Straight 07/26/2022 1: 32 PM CDT documented as of this encounter Consult Notes * Gaudencio Escobedo M.D. - 08/27/2023 11:00 AM CDT Referring Physician: Fantasma Butt M.D. SUBJECTIVE The patient has been neither seen nor examined; this consultation is based entirely upon information available in the [facility] electronic medical record. CHIEF COMPLAINT / REASON [...] continued after he was dismissed to a [facility] facility: Hospital dismissal summary (Dr. Hill, 06/25/2023): [...] (Latest Contact Info) Description 01/02/2024 11:30 AM PRINTER MACHINE Clinical Communication Virtual Review in [place], [place] 200 [place] [address] 01/05/2024 9:20 AM PRINTER MACHINE Lab Department of Infusion Therapy in [address] [phone] Vel Vinson M.D., M.B.A. [address] [place] [phone] 01/05/2024 10:15 AM PRINTER MACHINE Appointment Department of Radiology, [facility], in [place], [place] [address] [place] [address] Vel Vinson M.D., M.B.A. [address] [place] [phone] 01/05/2024 10:45 AM PRINTER MACHINE Comprehensive Visit Section of Infectious Diseases in [place], [place] [address] [place] [phone] Maddy Bingham P.A.-C. [address] [place] [phone] 01/05/2024 11:15 AM PRINTER MACHINE Office Visit Department of Orthopedic Surgery in [place], [place] [address] [place] [phone] Vel Vinson M.D., M.B.A. [address] [place] [phone] 01/05/2024 2:30 PM PRINTER MACHINE Comprehensive Visit Preoperative Evaluation Center in [place], [place] [address] [place] [phone] Vel Vinson M.D., M.B.A. [address] [place] [phone] 01/06/2024 7:25 AM PRINTER MACHINE Hospital Encounter [facility] 02 4 AM ADMIT [address] [place] [phone] Vel Vinson M.D., M.B.A. [address] [place] [phone] 01/06/2024 7:25 AM PRINTER MACHINE - 01/06/2024 12:11 PM PRINTER MACHINE Surgery [facility] MAIN OR [address] [place] [address] Vel Vinson M.D., M.B.A. 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 [address] [place] [phone] PCP - General Family Medicine 01/28/17 10/02/23 documented as of this encounter
--- OUTSIDE RECORDS SUMMARY | 2023-12-01 19:53 | XMS_ITS | Encounter Summary ---
Author Organization [facility] Address 200 [place] [address] Care Team Providers Care Inspector Fuel Hose Name Role Phone Doug Lima M.D. Primary Care Provider + [phone] Reason for Visit * Outpatient (Routine) - Closed Specialty Diagnoses / Procedures Referred By Contac t Referred To Contact Infectious Diseases Diagnoses Infection Total Hip Arthroplasty Subsequent Right Sylvester Robb P.A.-C. 200 [place] [address] Phone: tel: fax: [facility] Referral ID Status Reason Start Date Expiration Date Visits Re quested Visits Authorized [id number] Closed 05/27/2023 11/25/2024 1 1 Encounter Details Date Type Department Care Team (Latest Contact Info) Description 08/25/2023 9:00 AM CDT Comprehensive Visit Section of Infectious Diseases in [place], [place] 200 [place] [phone] Sylvester Robb P.A.-C. [address] [place] [phone] Storm Nicole M.D. [address] [place] [address] [phone] Infection Total Hip Arthroplasty Subsequent Right (Primary Dx) Social History Tobacco Use Types Packs/Day Years Used Date Smoking Tobacco: Never Passive Smoke Exposure: Never Smokeless Tobacco: Never Alcohol Use Standard Drinks/Week Comments Never 2 (1 standard drink = 0.6 oz pur e alcohol) [facility] Utilities Answer Date Recorded In the past 12 months has e [employer], gas, oil, or water company threatened to [...] PM CDT Legal Sex Male 6:41 AM MANAGER SAP Gender Identity Male 07/26/2022 1:32 PM CDT Sexual Orientation Straight 07/26/2022 1: 32 PM CDT documented as of this encounter Progress Notes * Storm Nicole M.D. - 08/25/2023 9:00 AM CDT Outpatient Orthopedic Infectious Disease-Subsequent Visit Note DEMOGRAPHIC INFORMATION Clinic Number:[id number] Patient Name: Estevan Lester Age: 58 y.o. Birthdate: 1965 Sex: male Address: [address] [place] [phone] Referring Provider: Sylvester Robb P.A.-C. REASON FOR [...] below for convenience === June 24, 2023 [facility]-ID service pager at [phone] is following Estevan Lester for chronic right [...] of IV antimicrobials Treatment plan reviewed with Mr. Lester, who expressed understanding. All questions answered topatient's [...] his hypotension. Neurology was reengaged in the research archaeologist of 05/23 due to new global aphasia [...] daily for 90 days, then switch to [id number] twice daily indefinitely as monotherapy. If patient [...] 25, 2023 The patient currently staying at [address] [place] [address] contact information under discussion he stateshe is [...] daily. 30 test 0 blood-glucose meter (FreeStyle Trinidad) kit Use as instructed 1 each 0 [...] flash glucose scanning reader (FreeStyle Jessica 2 Grenora) misc 1 each (1 Device total) continuously.1 [...] Selected Services Address Phone Fax Patient Preferred [facility] [address] [facility] [address] [phone] PLAN Continue to observe off antimicrobials Follow-up [...] Spent 35 minutes in total time both oxzf-uv-yedh and non cnph-bh-pabc documented in this encounter Plan of Treatment Upcoming Encounters Date Type Department Care Team (Latest Contact Info) Description 01/02/2024 11:30 AM MANAGER SAP Clinical Communication Virtual Review in [place], [place] 200 [place] [phone] 01/05/2024 9:20 AM MANAGER SAP Lab Department of Infusion Therapy in [place], [place] [address] [place] [phone] Vel Vinson M.D., M.B.A. [address] [place] [phone] 01/05/2024 10:15 AM MANAGER SAP Appointment Department of Radiology, [facility], in [address] [phone] Vel Vinson M.D., M.B.A. [address] [place] [phone] 01/05/2024 10:45 AM MANAGER SAP Comprehensive Visit Section of Infectious Diseases in [address] [phone] Maddy Bingham P.A.-C. [address] [place] [phone] 01/05/2024 11:15 AM MANAGER SAP Office Visit Department of Orthopedic Surgery in [address] [phone] Vel Vinson M.D., M.B.A. [address] [place] [phone] 01/05/2024 2:30 PM MANAGER SAP Comprehensive Visit Preoperative Evaluation Center in [address] [phone] Vel Vinson M.D., M.B.A. [address] [place] [phone] 01/06/2024 7:25 AM MANAGER SAP Hospital Encounter [facility] 02 4 AM ADMIT [address] [place] [address] Vel Vinson M.D., M.B.A. [address] [place] [address] 01/06/2024 7:25 AM MANAGER SAP - 01/06/2024 12:11 PM MANAGER SAP Surgery [facility] MAIN OR [address] [place] [address] Vel Vinson M.D., M.B.A. [address] [place] [address] ARTHROPLASTY REVISION FEMORAL+ACETABULAR HIP Scheduled Procedures Name Priority Associated Diagnoses Date/Ti me ARTHROPLASTY REVISION FEMORAL+ACETABULAR HIP Infection Total Hip Arthroplasty Subsequent Right 01/06/2024 7:25 AM MANAGER SAP documented as of this encounter Results * [...] 8:11 AM CDT 08/25/2023 8:55 AM CDT us Storm Nicole M.D. LAB BLOOD ADD-ON Final Resu lt Performing Organization Address City/[facility] Co de Phone Number [facility] 200 [place] [address], [facility] 200 [place] [address] * Creatinine with Estimated GFR (08/25/2023 8:11 AM CDT) Creatinine 1.06 0.74 - 1.35 mg/dL 08/25/2023 9:16 AM CDT DTL Estimated GFR (eGFR) 81 >=60 mL/min/BSA 08/25/2023 9:16 AM CDT DT Comment: Estimated GFR calculated using the 2020 CKD_EPI creatinine equation. Blood (Blood, Venous) 08/25/2023 8:11 AM CDT 08/25/2023 8:55 AM CDT us Storm Nicole M.D. LAB BLOOD ADD-ON Final Resu lt Performing Organization Address [facility] Co de Phone Number [facility] 200 [place] [address], [facility] 200 [place] [address] * CRP (C-Reactive Protein) (08/25/2023 8:11 AM CDT) C-Reactive Protein (CRP), S 3.2 <5.0 mg/L 08/25/2023 9:16 AM CDT DTL Blood (Blood, Venous) 08/25/2023 8:11 AM CDT 08/25/2023 8:55 AM CDT us Storm Nicole M.D. LAB BLOOD ADD-ON Final Resu lt Performing Organization Address City/State/[facility] Co de Phone Number [facility] [address] [place] [address] * (ABNORMAL) Sedimentation Rate (08/25/2023 8:11 AM CDT) Pathologist [facility] Sedimentation Rate, B 27(H) 2 - 20 mm/h 08/25/2023 10:12 AM CDT DTL Blood (Blood, Venous) 08/25/2023 8:11 AM CDT 08/25/2023 8:51 AM CDT us Storm Nicole M.D. LAB BLOOD ADD-ON Final Resu lt Performing Organization Address City/[facility] Co de Phone Number [facility] [address] [place] [address] * (ABNORMAL) CBC with Differential, Blood (08/25/2023 8:11 AM CDT) [facility] Hemoglobin 11.9(L) 13.2 - 16.6 g/dL 08/25/2023 [...] 8:11 AM CDT 08/25/2023 8:51 AM CDT us Storm Nicole M.D. LAB BLOOD ADD-ON Final Resu lt [facility] 200 [place] [address], [facility] DTL [facility] 200 [place] [address] DHPM [facility] 200 [place] [address] documented in this encounter Visit Diagnoses Diagnosis Infection 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 Total Hip Arthroplasty Subsequent Right documented in this encounter Care Teams Inspector Fuel Hose Relationship Specialty Start Date End Date Doug Lima M.D. [address] [place] [phone] PCP - General Family Medicine 01/28/17 10/02/23 documented as of this encounter
--- OUTSIDE RECORDS SUMMARY | 2023-12-01 19:53 | XMS_ITS | Encounter Summary ---
Author Organization [facility] Address [address] [place] [address] Care Team Providers Care Making Machine Operator Name Role Phone Doug Lima M.D. Primary Care Provider + [phone] Encounter Details Date Type Department Care Team (Late st Contact Info) Description 10/01/2023 Abstract [place], [place] [address] [place] [address] Provider, Historical Social History Tobacco Use Types Packs/Day Years Used Date Smoking Tobacco: Never Passive Smoke Exposure: Never Smokeless Tobacco: Never Alcohol Use Standard Drinks/Week Comments Never 2 (1 standard drink = 0.6 oz pur e alcohol) [facility] Utilities Answer Date Recorded In the past 12 months has e [employer], gas, oil, or water [employer] threatened to shut off services in your [...] PM CDT Legal Sex Male 6:41 AM LANDSCAPE TECHNICIAN Gender Identity Male 07/26/2022 1:32 PM CDT Sexual Orientation Straight 07/26/2022 1: 32 PM CDT documented as of this encounter Plan of Treatment Upcoming Encounters Date Type Department Care Team (Latest Contact Info) Description 01/02/2024 11:30 AM LANDSCAPE TECHNICIAN Clinical Communication Virtual Review in [place], [place] [address] [place] [phone] 01/05/2024 9:20 AM LANDSCAPE TECHNICIAN Lab Department of Infusion Therapy in [place], [place] [address] [place] [address] Vel Vinson M.D., M.B.A. [address] [place] [phone] 01/05/2024 10:15 AM LANDSCAPE TECHNICIAN Appointment Department of Radiology, [facility], in [place], [place] [address] [place] [address] Vel Vinson M.D., M.B.A. [address] [place] [phone] 01/05/2024 10:45 AM LANDSCAPE TECHNICIAN Comprehensive Visit Section of Infectious Diseases in [place], [place] [address] [place] [phone] Maddy Bingham P.A.-C. [address] [place] [phone] 01/05/2024 11:15 AM LANDSCAPE TECHNICIAN Office Visit Department of Orthopedic Surgery in [place], [place] [address] [place] [phone] Vel Vinson M.D., M.B.A. [address] [place] [phone] 01/05/2024 2:30 PM LANDSCAPE TECHNICIAN Comprehensive Visit Preoperative Evaluation Center in [place], [place] [address] [place] [phone] Vel Vinson M.D., M.B.A. [address] [place] [phone] 01/06/2024 7:25 AM LANDSCAPE TECHNICIAN Hospital Encounter [facility] 02 4 AM ADMIT [address] [place] [phone] Vel Vinson M.D., M.B.A. [address] [place] [phone] 01/06/2024 7:25 AM LANDSCAPE TECHNICIAN - 01/06/2024 12:11 PM LANDSCAPE TECHNICIAN Surgery [facility] MAIN OR [address] [place] [address] Vel Vinson M.D., M.B.A. [address] [place] [address] ARTHROPLASTY REVISION FEMORAL+ACETABULAR HIP Scheduled Procedures Name Priority Associated Diagnoses Date/Ti me ARTHROPLASTY REVISION FEMORAL+ACETABULAR HIP Infection Total Hip Arthroplasty Subsequent Right 01/06/2024 7:25 AM LANDSCAPE TECHNICIAN documented as of this encounter Visit Diagnoses Not on filedocumented in this encounter Care Teams Making Machine Operator Relationship Specialty Start Date End Date Doug Lima M.D. [address] [place] [address] PCP - General Family Medicine 01/28/17 10/02/23 documented as of this encounter
--- OUTSIDE RECORDS SUMMARY | 2023-12-01 19:53 | XMS_ITS | Encounter Summary ---
Author Organization [facility] Address [address] [place] [address] Care Team Providers Care Yellow Pages Space Salesperson Name Role Phone Doug Lima M.D. Primary Care Provider + [phone] Encounter Details Date Type Department Care Team ([facility] st Contact Info) Description 09/08/2023 Orders Only Section of Infectious Diseases in [place], [place] [address] [place] [phone] Storm Nicole M.D. [address] [place] [phone] Infection Total Hip Arthroplasty Subsequent Right (Primary Dx) Social History Tobacco Use Types Packs/Day Years Used Date Smoking Tobacco: Never Passive Smoke Exposure: Never Smokeless Tobacco: Never Alcohol Use Standard Drinks/Week Comments Never 2 (1 standard drink = 0.6 oz pur e alcohol) [facility] Utilities Answer Date Recorded In the past 12 months has [employer], oil, or water [employer] threatened to shut off services in your [...] PM CDT Legal Sex Male 6:41 AM CHAIN SALES CONSULTANT Gender Identity Male 07/26/2022 1:32 PM CDT Sexual Orientation Straight 07/26/2022 1: 32 PM CDT documented as of this encounter Plan of Treatment Upcoming Encounters Date Type Department Care Team (Latest Contact Info) Description 01/02/2024 11:30 AM CHAIN SALES CONSULTANT Clinical Communication Virtual Review in [place], [place] [address] [place] [phone] 01/05/2024 9:20 AM CHAIN SALES CONSULTANT Lab Department of Infusion Therapy in [place], [place] [address] [place] [phone] Vel Vinson M.D., M.B.A. [address] [place] [phone] 01/05/2024 10:15 AM CHAIN SALES CONSULTANT Appointment Department of Radiology, [facility], in [place], [place] [address] [place] [phone] Vel Vinson M.D., M.B.A. [address] [place] [phone] 01/05/2024 10:45 AM CHAIN SALES CONSULTANT Comprehensive Visit Section of Infectious Diseases in [place], [place] [address] [place] [phone] Maddy Bingham P.A.-C. [address] [place] [phone] 01/05/2024 11:15 AM CHAIN SALES CONSULTANT Office Visit Department of Orthopedic Surgery in [place], [place] [address] [place] [phone] Vel Vinson M.D., M.B.A. [address] [place] [phone] 01/05/2024 2:30 PM CHAIN SALES CONSULTANT Comprehensive Visit Preoperative Evaluation Center in [place], [place] [address] [place] [phone] Vel Vinson M.D., M.B.A. [address] [place] [phone] 01/06/2024 7:25 AM CHAIN SALES CONSULTANT Hospital Encounter [facility] 02 4 AM ADMIT [address] [place] [phone] Vel Vinson M.D., M.B.A. [address] [place] [address] 01/06/2024 7:25 AM CHAIN SALES CONSULTANT - 01/06/2024 12:11 PM CHAIN SALES CONSULTANT Surgery [facility] MAIN OR [address] [place] [phone] Vel Vinson M.D., M.B.A. [address] [place] [address] ARTHROPLASTY REVISION FEMORAL+ACETABULAR HIP Scheduled Orders Name Type Priority Associated Diagnoses Orde r Schedule Hepatic Function Panel Lab Routine Infection Total Hip Arthroplasty Subsequent Right Expected: 12/02/2023, Expires: 12/08/2024 Scheduled Procedures Name Priority Associated Diagnoses Date/Ti me ARTHROPLASTY REVISION FEMORAL+ACETABULAR HIP Infection Total Hip Arthroplasty Subsequent Right 01/06/2024 7:25 AM CHAIN SALES CONSULTANT documented as of this encounter Visit Diagnoses Diagnosis Infection 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 Total Hip Arthroplasty Subsequent Right documented in this encounter Care Teams Yellow Pages Space Salesperson Relationship Specialty Start Date End Date Doug Lima M.D. [address] [place] [phone] PCP - General Family Medicine 01/28/17 10/02/23 documented as of this encounter
--- OUTSIDE RECORDS SUMMARY | 2023-12-01 19:53 | XMS_ITS | Encounter Summary ---
Author Organization [facility] Address [address] [place] [address] Care Team Providers Care Transplant Surgeon Name Role Phone Doug Lima M.D. Primary Care Provider + [phone] Encounter Details Date Type Department Care Team (Late st Contact Info) Description 08/27/2023 Clinical Communication Department of Neurologic Surgery in [place], [place] [address] [place] [address] Fantasma Butt M.D. [address] [place] [address] Social History Tobacco Use Types Packs/Day Years Used Date Smoking Tobacco: Never Passive Smoke Exposure: Never Smokeless Tobacco: Never Alcohol Use Standard Drinks/Week Comments Never 2 (1 standard drink = 0.6 oz pur e alcohol) [facility] Utilities Answer Date Recorded In the past 12 months has [employer], oil, or water [employer] threatened to shut off services in your [...] PM CDT Legal Sex Male 6:41 AM TALENT ANALYST Gender Identity Male 07/26/2022 1:32 PM CDT Sexual Orientation Straight 07/26/2022 1: 32 PM CDT documented as of this encounter Plan of Treatment Upcoming Encounters Date Type Department Care Team (Latest Contact Info) Description 01/02/2024 11:30 AM TALENT ANALYST Clinical Communication Virtual Review in [place], [place] [address] [place] [phone] 01/05/2024 9:20 AM TALENT ANALYST Lab Department of Infusion Therapy in [place], [place] [address] [place] [phone] Vel Vinson M.D., M.B.A. [address] [place] [phone] 01/05/2024 10:15 AM TALENT ANALYST Appointment Department of Radiology, [facility], in [place], [place] [address] [place] [phone] Vel Vinson M.D., M.B.A. [address] [place] [phone] 01/05/2024 10:45 AM TALENT ANALYST Comprehensive Visit Section of Infectious Diseases in [place], [place] [address] [place] [phone] Maddy Bingham P.A.-C. [address] [place] [phone] 01/05/2024 11:15 AM TALENT ANALYST Office Visit Department of Orthopedic Surgery in [place], [place] [address] [place] [phone] Vel Vinson M.D., M.B.A. [address] [place] [phone] 01/05/2024 2:30 PM TALENT ANALYST Comprehensive Visit Preoperative Evaluation Center in [place], [place] [address] [place] [phone] Vel Vinson M.D., M.B.A. [address] [place] [phone] 01/06/2024 7:25 AM TALENT ANALYST Hospital Encounter [facility] 02 4 AM ADMIT [address] [place] [phone] Vel Vinson M.D., M.B.A. [address] [place] [address] 01/06/2024 7:25 AM TALENT ANALYST - 01/06/2024 12:11 PM TALENT ANALYST Surgery [facility] MAIN OR [address] [place] [address] Vel Vinson M.D., M.B.A. [address] [place] [phone] ARTHROPLASTY REVISION FEMORAL+ACETABULAR HIP Scheduled Procedures Name Priority Associated Diagnoses Date/Ti me ARTHROPLASTY REVISION FEMORAL+ACETABULAR HIP Infection Total Hip Arthroplasty Subsequent Right 01/06/2024 7:25 AM TALENT ANALYST documented as of this encounter Visit Diagnoses Not on filedocumented in this encounter Care Teams Transplant Surgeon Relationship Specialty Start Date End Date Doug Lima M.D. [address] [place] [phone] PCP - General Family Medicine 01/28/17 10/02/23 documented as of this encounter
--- OUTSIDE RECORDS SUMMARY | 2023-12-01 19:53 | XMS_ITS | Encounter Summary ---
Author Organization [facility] Address [address] [place] [address] Care Team Providers Care Reed Fixer Name Role Phone Doug Lima M.D. 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 200 [place] [address] Phone: tel: fax: [facility] Referral ID Status Reason Start Date Expiration Date Visits Re quested Visits Authorized [id number] Closed 08/27/2023 08/26/2024 1 1 Encounter Details Date Type Department Care Team (Late st Contact Info) Description 08/27/2023 Orders Only Department of Neurologic Surgery in [place], [place] [address] [place] [phone] Rosalie Sosa R.N., CNRN [address] [place] [phone] Stenosis Carotid Artery Right (Primary Dx); Occlusion Carotid Artery Left; Peripheral Arterial Disease (HCC); Stroke (HCC); Infection Total Hip Arthroplasty Subsequent Right; Hemiplegia Flaccid Dominant Side Right (HCC) Social History Tobacco Use Types Packs/Day Years Used Date Smoking Tobacco: Never Passive Smoke Exposure: Never Smokeless Tobacco: Never Alcohol Use Standard Drinks/Week Comments Never 2 (1 standard drink = 0.6 oz pur e alcohol) [facility] Utilities Answer Date Recorded In the past 12 months has th e [employer], gas, oil, or water company threatened to [...] PM CDT Legal Sex Male 6:41 AM GAS PIPE LAYER Gender Identity Male 07/26/2022 1:32 PM CDT Sexual Orientation Straight 07/26/2022 1: 32 PM CDT documented as of this encounter Plan of Treatment Upcoming Encounters Date Type Department Care Team (Latest Contact Info) Description 01/02/2024 11:30 AM GAS PIPE LAYER Clinical Communication Virtual Review in [place], [place] 200 [place] [address] 01/05/2024 9:20 AM GAS PIPE LAYER Lab Department of Infusion Therapy in [place], [place] [address] [place] [phone] Vel Vinson M.D., M.B.A. [address] [place] [phone] 01/05/2024 10:15 AM GAS PIPE LAYER Appointment Department of Radiology, [facility], in [place], [place] [address] [place] [phone] Vel Vinson M.D., M.B.A. [address] [place] [phone] 01/05/2024 10:45 AM GAS PIPE LAYER Comprehensive Visit Section of Infectious Diseases in [place], [place] [address] [place] [phone] Maddy Bingham P.A.-C. [address] [place] [phone] 01/05/2024 11:15 AM GAS PIPE LAYER Office Visit Department of Orthopedic Surgery in [place], [place] [address] [place] [phone] Vel Vinson M.D., M.B.A. [address] [place] [phone] 01/05/2024 2:30 PM GAS PIPE LAYER Comprehensive Visit Preoperative Evaluation Center in [place], [place] [address] [place] [phone] Vel Vinson M.D., M.B.A. [address] [place] [phone] 01/06/2024 7:25 AM GAS PIPE LAYER Hospital Encounter [facility] 02 4 AM ADMIT [address] [place] [phone] Vel Vinson M.D., M.B.A. [address] [place] [phone] 01/06/2024 7:25 AM GAS PIPE LAYER - 01/06/2024 12:11 PM GAS PIPE LAYER Surgery [facility] MAIN OR [address] [place] [address] Vel Vinson M.D., M.B.A. 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 [address] [place] [phone] PCP - General Family Medicine 01/28/17 10/02/23 documented as of this encounter
--- OUTSIDE RECORDS SUMMARY | 2023-12-01 19:53 | XMS_ITS | Encounter Summary ---
Author Organization [facility] Address [address] [place] [address] Care Team Providers Care Baby Stroller Rental Clerk Name Role Phone Doug Lima M.D. Primary Care Provider + [phone] Reason for Referral * Outpatient (Routine) - Closed Specialty Diagnoses / Procedures Referred By Contac t Referred To Contact Diagnoses Infection Total Hip Arthroplasty Subsequent Right Procedures DX Hip And Pelvis Right 2-3 Views Xavi Hicks M.D. 200 [place] [address] Phone: tel: fax: [facility] Referral ID Status Reason Start Date Expiration Date Visits Re quested Visits Authorized [id number] Closed 05/16/2023 05/15/2024 1 1 Reason for Visit * Outpatient (Routine) - Closed Specialty Diagnoses / Procedures Referred By Anoopac chetna Referred To Contact Diagnoses Infection Total Hip Arthroplasty Subsequent Right Procedures DX Hip And Pelvis Right 2-3 Views Xavi Hicks M.D. 200 [place] [address] Phone: tel: fax: [facility] Referral ID Status Reason Start Date Expiration Date Visits Re quested Visits Authorized [id number] Closed 05/16/2023 05/15/2024 1 1 Encounter Details Date Type Department Care Team (Latest Contact Info) Description 08/25/2023 6:43 AM CDT - 08/25/2023 12:10 PM CDT Hospital Encounter Department of Radiology, [facility], in [place], [place] [address] [place] [address] Xavi Hicks M.D. 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 30 test 07/29/2022 blood-glucose meter ([employer] Davis) kit Use as instructed 1 each 07/29/2022 carboxymethylcellu lose (REFRESH PLUS) 0.5 % ophthalmic solution Administer 2 drops into both eyes 4 (four) times a day as needed for dry eyes. 50 each 06/25/2023 flash glucose scanning reader ([employer] Jessica 2 [place]) miscIndications:Di abetes Mellitus Type 2 Ulcer Foot [...] (Latest Contact Info) Description 01/02/2024 11:30 AM FACILITIES MAINTENANCE WORKER Clinical Communication Virtual Review in [place], [place] 200 [place] [address] 01/05/2024 9:20 AM FACILITIES MAINTENANCE WORKER Lab Department of Infusion Therapy in [place], [place] [address] [place] [phone] Vel Vinson M.D., M.B.A. [address] [place] [phone] 01/05/2024 10:15 AM FACILITIES MAINTENANCE WORKER Appointment Department of Radiology, [facility], in [place], [place] [address] [place] [phone] Vel Vinson M.D., M.B.A. [address] [place] [phone] 01/05/2024 10:45 AM FACILITIES MAINTENANCE WORKER Comprehensive Visit Section of Infectious Diseases in [address] [phone] Maddy Bingham P.A.-C. [address] [place] [phone] 01/05/2024 11:15 AM FACILITIES MAINTENANCE WORKER Office Visit Department of Orthopedic Surgery in [address] [phone] Vel Vinson M.D., M.B.A. [address] [place] [phone] 01/05/2024 2:30 PM FACILITIES MAINTENANCE WORKER Comprehensive Visit Preoperative Evaluation Center in [place], [place] [address] [place] [phone] Vel Vinson M.D., M.B.A. [address] [place] [phone] 01/06/2024 7:25 AM FACILITIES MAINTENANCE WORKER Hospital Encounter [facility]ST RO 02 4 AM ADMIT [address] [place] [address] Vel Vinson M.D., M.B.A. [address] [place] [phone] 01/06/2024 7:25 AM FACILITIES MAINTENANCE WORKER - 01/06/2024 12:11 PM FACILITIES MAINTENANCE WORKER Surgery [facility] MAIN OR [address] [place] [address] Vel Vinson M.D., M.B.A. [address] [place] [phone] ARTHROPLASTY REVISION FEMORAL+ACETABULAR HIP Scheduled Procedures Name Priority Associated Diagnoses Date/Ti me ARTHROPLASTY REVISION FEMORAL+ACETABULAR HIP Infection Total Hip Arthroplasty Subsequent Right 01/06/2024 7:25 AM FACILITIES MAINTENANCE WORKER documented as of this encounter Procedures Procedure [...] at L5. Xavi Hicks M.D. IMG DIAGNOSTIC IMAGING PRO CEDURES Final Result documented in this encounter Visit Diagnoses Diagnosis Infection Total Hip Arthroplasty Subsequent Right Infection Total Hip Arthroplasty Subsequent Right documented in this encounter Care Teams Baby Stroller Rental Clerk Relationship Specialty Start Date End Date Doug Lima M.D. [address] [place] [phone] PCP - General Family Medicine 01/28/17 10/02/23 documented as of this encounter
--- OUTSIDE RECORDS SUMMARY | 2023-12-01 19:53 | XMS_ITS | Encounter Summary ---
Author Organization [facility] Address [address] [place] [address] Care Team Providers Care Fish Liver Sorter Name Role Phone Elsewhere, Pcp Primary Care Provider Unavailabl e Encounter Details Date Type Department Care Team (Late st Contact Info) Description 10/21/2023 Clinical Communication Department of Orthopedic Surgery in [place], [place] [address] [place] [address] Vel Vinson M.D., M.B.A. [address] [place] [address] Social History Tobacco Use Types Packs/Day Years Used Date Smoking Tobacco: Never Passive Smoke Exposure: Never Smokeless Tobacco: Never Alcohol Use Standard Drinks/Week Comments Never 2 (1 standard drink = 0.6 oz pur e alcohol) [facility] Utilities Answer Date Recorded In the past 12 months has [facility] [email or web address], gas, oil, or water [employer] threatened to shut off services in your [...] PM CDT Legal Sex Male 6:41 AM POSTDOCTORAL FELLOW Gender Identity Male 07/26/2022 1:32 PM CDT Sexual Orientation Straight 07/26/2022 1: 32 PM CDT documented as of this encounter Plan of Treatment Upcoming Encounters Date Type Department Care Team (Latest Contact Info) Description 01/02/2024 11:30 AM POSTDOCTORAL FELLOW Clinical Communication Virtual Review in [place] [address] [place] [phone] 01/05/2024 9:20 AM POSTDOCTORAL FELLOW Lab Department of Infusion Therapy in [place], [place] [address] [place] [phone] Vel Vinson M.D., M.B.A. [address] [place] [phone] 01/05/2024 10:15 AM POSTDOCTORAL FELLOW Appointment Department of Radiology, [facility], in [place], [place] [address] [place] [phone] Vel Vinson M.D., M.B.A. [address] [place] [phone] 01/05/2024 10:45 AM POSTDOCTORAL FELLOW Comprehensive Visit Section of Infectious Diseases in [place], [place] [address] [place] [phone] Maddy Bingham P.A.-C. [address] [place] [phone] 01/05/2024 11:15 AM POSTDOCTORAL FELLOW Office Visit Department of Orthopedic Surgery in [place], [place] [address] [place] [phone] Vel Vinson M.D., M.B.A. [address] [place] [phone] 01/05/2024 2:30 PM POSTDOCTORAL FELLOW Comprehensive Visit Preoperative Evaluation Center in [place], [place] [address] [place] [phone] Vel Vinson M.D., M.B.A. [address] [place] [phone] 01/06/2024 7:25 AM POSTDOCTORAL FELLOW Hospital Encounter [facility] 02 4 AM ADMIT [address] [place] [phone] Vel Vinson M.D., M.B.A. [address] [place] [address] 01/06/2024 7:25 AM POSTDOCTORAL FELLOW - 01/06/2024 12:11 PM POSTDOCTORAL FELLOW Surgery [facility] MAIN OR [address] [place] [address] Vel Vinson M.D., M.B.A. [address] [place] [address] ARTHROPLASTY REVISION FEMORAL+ACETABULAR HIP Scheduled Procedures Name Priority Associated Diagnoses Date/Ti me ARTHROPLASTY REVISION FEMORAL+ACETABULAR HIP Infection Total Hip Arthroplasty Subsequent Right 01/06/2024 7:25 AM POSTDOCTORAL FELLOW documented as of this encounter Visit Diagnoses Diagnosis Infection 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 Total Hip Arthroplasty Subsequent Right documented in this encounter Care Teams Fish Liver Sorter Relationship Specialty Start Date End Date Elsewhere, Pcp PCP - General Internal Medicine 10/03/23 documented as of this encounter
== END 2023-11-28 13:33 | disposition home or self-care (01) ==
LOC: AMB 12-01 19:49
PROVIDERS: PCP Family Medicine; Visit Provider Family Medicine
DX: K92.2 Gastrointestinal hemorrhage, unspecified (principal)
CPT/HCPCS: A0425; A0427

== ENCOUNTER 2023-12-29 13:03 | Outpatient (CLI) | payer OTHER, SELFPAY ==
--- OUTSIDE RECORDS SUMMARY | 2023-12-29 13:06 | XMS_ITS | Clinical Summary ---
Author Organization [facility] Address [address] [place] [address] Care Team Providers Care Charter Pilot Name Role Phone Elsewhere, Pcp Primary Care Provider Unavailabl e Source Comments Patient records contain information from all sites at [facility]. For routine questions regarding patient records, call [phone] during business hours, M-F 8:00 AM - 5:00 PM Central Time. Record requests for emergency care only can be directed to [phone] at any time.[facility] Allergies Active Allergy Reactions Criticality Noted Date Comments Cefazolin Other (see comments) 08/25/2023 Possible increase in alkaline phosphatase please see ID notes Medications * This document contains information received from the source organization and may not represent a complete record from that organization. lancets 1 each daily. 50 each 07/30/19 Active blood sugar diagnostic strips 1 test daily. 30 test 07/30/19 Active blood-glucose meter (FreeStyle Lodi) kit Use as instructed 1 each 07/30/19 Active blood glucose ctl high,nml,low solution Glucose control solution provides an easy way to ensure accurate blood glucose testing. 1 each 07/30/19 Active flash glucose scanning reader (FreeStyle Jessica 2 Deposit) miscIndications: Diabetes Mellitus Type 2 Ulcer Foot Hyperglycemic (HCC) 1 each (1 Device total) continuously. 1 each 1 08/02/19 Active pen needle, diabetic (BD Ultra-Fine Short Pen Needle) 31 gauge x 5/16 needle 1 Injection daily. 100 each 3 01/01/20 Active acetaminophen (TYLENOL) 500 mg tablet Take 2 tablets (1,000 mg total) by mouth every 6 (six) hours as needed for mild pain or score 1-3 of 10 or moderate pain or score 4-6 of 10. 03/20/19 24 Active Additional Information Patient taking differently:1,000 mg oral3 times daily, Reported on 11/29/2023 atorvastatin (LIPITOR) 20 mg tablet Take 1 tablet (20 mg total) by mouth at bedtime. 30 tablet 1 06/25/19 Active carboxymethylcel lulose (REFRESH PLUS) 0.5 % ophthalmic solution Administer 2 drops into both eyes 4 (four) times a day as needed for dry eyes. 50 each 06/25/19 24 Active levETIRAcetam (Keppra) 100 mg/mL solution Take 7.5 mL (750 mg total) by mouth 2 (two) times a day. 06/25/19 24 Active aspirin 81 mg chewable tablet Chew 1 tablet (81 mg total) daily. 60 tablet 06/25/19 Active Novofine Autocover 30 gauge x 1/3 needle 06/25/19 Active rivaroxaban (Xarelto) 10 mg tablet Take 1 tablet (10 mg total) by mouth daily. 30 tablet 11 08/28/19 24 2024 Active lisinopriL 5 mg tablet Take 5 mg by mouth daily. 09/03/19 Active pantoprazole (Protonix) 40 mg EC tablet Take 40 mg by mouth 2 (two) times a day before morning and evening meals. Active polyethylene glycol (Miralax) 17 gram powder packet Take 17 g by mouth daily. Dissolve each 17 g dose in 240 mLs (8 ounces) of beverage. Active sucralfate (Carafate) 1 gram tablet Take 1 g by mouth every 6 (six) hours. Active sennosides (Senokot) 8.6 mg tablet Take 8.6 mg by mouth 2 (two) times a day. Active nystatin (Nystop) 100,000 unit/gram powder Apply 1 Application topically 2 (two) times a day. Apply to rash. Active insulin NPH (NovoLIN N FlexPen) 100 unit/mL (3 mL) pen Inject 4-8 Units under the skin 2 (two) times a day with meals. takes 8 units in the AM and 4 units in the afternoon 3 mL 12/02/19 Active insulin NPH (NovoLIN N FlexPen) 100 unit/mL (3 mL) injection Inject 10-20 Units under the skin 2 (two) times a day with meals. 15 mL 11 06/25/19 24 2023 Discontinued Active Problems Problem Noted Date Diagnosed Date Ulcer Colon 12/12/2023 Hemorrhage Gastrointestinal 11/28/2023 Seizure 10/03/2023 Stroke 05/24/2023 [...] (04/17/2020): Added automatically from request for surgery [id number] Hyponatremia 03/09/2020 07/30/2022 Hyperkalemia 03/09/2020 07/30/2022 Cellulitis 03/08/2020 03/20/2020 Cellulitis Foot Right 03/08/20202022 Diabetes Mellitus Type 2 Hyperglycemia 02/18/2017 04/17/2022 Diabetes Mellitus Type 2 Ulcer Foot 04/17/2022 Encounters Date Type Department Care Team Description 12/18/2023 Clinical Communication Division of Gastroenterology in [place], [place] [address] [place] [address] dEe Crespo M.D. e-Consult Follow-Up (Completed 12/07 post ED visit 11/27) 12/18/2023 Clinical Communication Department of Orthopedic Surgery in [place], [place] [address] [place] [phone] Vel Vinson M.D., M.B.A. 12/17/2023 Clinical Communication Department of Hospital Internal Medicine in [place], [place] [address] [place] [phone] Lul Galeas M.D. 12/11/2023 Orders Only Department of Orthopedic Surgery in [place], [place] [address] [place] [phone] Maurisio Peoples M.D. Stroke (HCC) (Primary Dx) 12/08/2023 1:00 PM CDT Internal E-Consult Division of Gastroenterology in [place], [place] [address] [place] [phone] Lul Galeas M.D. Schupack, Daniel A, M.D. Ulcer Colon (Primary Dx); Hemorrhage Gastrointestinal 12/08/2023 8:00 AM CDT Internal E-Consult Department of Vascular Medicine in [place], [place] [address] [place] [phone] Ann Montoya APRN, C.N.P., M.S. Infection Total Hip Arthroplasty Subsequent Right 12/05/2023 Orders Only Department of Orthopedic Surgery in [place], [place] [address] [place] [phone] Maurisio Peoples M.D. Infection Total Hip Arthroplasty Subsequent Right (Primary Dx) 12/02/2023 11:25 AM CDT Anesthesia Event Division of Gastroenterology in [place], [place] [address] [place] [phone] Jorge Del Rosario APRN, MORTGAGE SPECIALIST, [facility] Char Rudolph M.D. 12/02/2023 11:10 AM CDT Ancillary Procedure Department of Gastroenterology 12/02/2023 Clinical Communication [facility] [address] [place] [phone] Lul Galeas M.D. Appt Request 11/28/2023 2:49 PM CDT - 12/03/2023 10:07 AM CDT Hospital Encounter [facility], [facility], [facility], Fourth Floor [address] [place] [address] Paola Solis APRN, C.N.P., D.N.P., M.S.N. Theodore Dsouza M.D. Beiermann, Elizabeth W, M.D. Kleinheksel, Germaine M, APRN, C.N.P., D.N.P. Hemorrhage Gastrointestinal (Primary Dx); Anemia; Infection Total Hip Arthroplasty Initial Right (HCC); Stroke (HCC) Discharge Disposition: Longterm Facility 11/03/2023 Intake [facility] 10/21/2023 Clinical Communication Department of Orthopedic Surgery in [place], [place] [address] [place] [address] Vel Vinson M.D., M.B.A. 10/03/2023 1:00 PM CDT Comprehensive Visit Department of Neurology in [place], [place] [address] [place] [address] Balbir Maradiaga M.D. Stroke Cerebrovascular Accident Personal History (Primary Dx); Seizure (HCC); Stenosis Carotid Artery Left 10/01/2023 [place], [place] [address] [place] [address] Provider, Historical from Last 3 Months Immunizations Name Administration [...] Rectal cancer Mother morgan Sleep apnea Mother morgna Relation Name Status Comments Brother Sreedhar Alive Father clay Mother morgan Stage 4 lung ca ncer Social History Tobacco Use Types Packs/Day Years Used Date Smoking Tobacco: Never Passive Smoke Exposure: Never Smokeless Tobacco: Never Tobacco Cessation:Counseling Given: Not Answered Alcohol Use Standard Drinks/Week Comments Never 2 (1 standard drink = 0.6 oz pur e alcohol) [facility] Utilities Answer Date Recorded In the [...] money to buy more. Never true 11/29/19 Within the past 12 months, t he [...] Answer Date Recorded Dental: Regular Dentist Yes 05/29/20 24 Employment Answer Date Recorded Employment status Permanently disabled Housing Stability Answer Date Recorded What is your living situation today? 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 SERVICE WORKER Gender Identity Male 07/26/2022 1:32 PM CDT Sexual Orientation Straight 07/26/2022 1: 32 PM CDT Last Filed Vital Signs Vital Sign Reading Time Taken Comments Blood Pressure 143/68 12/03/2023 8:05 AM CDT Pulse 55 12/03/2023 8:05 AM CDT Temperature 36.4 ??C (97.5 ??F) 12/03/2023 8:05 AM CD T Respiratory Rate 16 12/03/2023 8:05 AM CDT Oxygen Saturation 99% 12/03/2023 8:05 AM CDT Inhaled Oxygen Concentration - - Weight 93.7 kg (206 lb 9.1 oz) 11/28/2023 9:40 P M CDT Height 180.3 cm (5' 11) 11/28/2023 9:40 PM CDT Body Mass Index 28.81 11/28/2023 9:40 PM CDT Plan of Treatment Upcoming Encounters Date Type Department Care Team (Latest Contact Info) Description 01/02/2024 11:30 AM COMMUNITY SERVICE WORKER Clinical Communication Virtual Review in [place], [place] [address] [place] [phone] 01/05/2024 9:20 AM COMMUNITY SERVICE WORKER Lab Department of Infusion Therapy in [place], [place] [address] [place] [phone] Vel Vinson M.D., M.B.A. [address] [place] [phone] 01/05/2024 10:15 AM COMMUNITY SERVICE WORKER Appointment Department of Radiology, [facility], in [place], [place] [address] [place] [phone] Vel Vinson M.D., M.B.A. [address] [place] [phone] 01/05/2024 10:45 AM COMMUNITY SERVICE WORKER Comprehensive Visit Section of Infectious Diseases in [place], [place] [address] [place] [phone] Maddy Bingham P.A.-C. [address] [place] [phone] 01/05/2024 11:15 AM COMMUNITY SERVICE WORKER Office Visit Department of Orthopedic Surgery in [place], [place] [address] [place] [phone] Vel Vinson M.D., M.B.A. [address] [place] [phone] 01/05/2024 2:30 PM COMMUNITY SERVICE WORKER Comprehensive Visit Preoperative Evaluation Center in [place], [place] [address] [place] [phone] Vel Vinson M.D., M.B.A. [address] [place] [phone] 01/06/2024 7:25 AM COMMUNITY SERVICE WORKER Hospital Encounter [facility] 02 4 AM ADMIT [address] [place] [phone] Vel Vinson M.D., M.B.A. [address] [place] [phone] 01/06/2024 7:25 AM COMMUNITY SERVICE WORKER - 01/06/2024 12:11 PM COMMUNITY SERVICE WORKER Surgery [facility] MAIN OR [address] [place] [address] Vel Vinson M.D., M.B.A. [address] [place] [phone] ARTHROPLASTY REVISION FEMORAL+ACETABULAR HIP Scheduled Procedures Name Priority Associated Diagnoses Date/Ti me ARTHROPLASTY REVISION FEMORAL+ACETABULAR HIP Infection Total Hip Arthroplasty Subsequent Right 01/06/2024 7:25 AM COMMUNITY SERVICE WORKER Health Maintenance Due Date Last Done Comments CT Colonography 1965 Cologuard 1965 Pneumococcal vaccine (0-64 years) (1 of 2 - PCV) 1971 Hepatitis B Vaccines (1 of 3 - 19+ 3-dose series) 01/02/1984 Zoster Vaccines (1 of 2) 2015 Diabetes Education 02/18/2017 Diabetic Office Visit with Foot Exam 03/20/2021 03/20/2020, 03/20/2020, 03/20/2020, Additional history exists COVID-19 Vaccine ( season) 2023 Dilated Eye Exam 11/09/2023 11/08/2022 Influenza Vaccine (#1) 2023 Office Visit for Blood Pressure Check / Re-check 01/03/2024 10/03/2023 Urine Albumin 03/10/2024 03/10/2023, 02/0 02/2020, 06/22/2018, Additional history exists Hemoglobin A1C 06/21/2024 12/23/2023, 08/17, 05/24/2023, Additional history exists Creatinine Level (Kidney Function Test) 12/22/2024 12/23/2023, 11/30/2023, 11/29/2023, Additional history exists Potassium Level 12/22/2024 12/23/2023, 11/17, 11/29/2023, Additional history exists Sodium Level 12/22/2024 12/23/2023, 11/17, 11/29/2023, Additional history exists DTaP,Tdap,and Td Vaccines (2 - Td or Tdap) 04/26/2025 04/27/2015 Lipid (Cholesterol) Screening 09/22/2028 09/23/2023, 07/22/2023, 05/24/2023, Additional history exists Colonoscopy 12/01/2028 12/02/2023, 11/17, 04/21/2015 Colorectal Cancer Surveillance 12/01/2028 Depression Screening (Annual PHQ-2) Completed 03/10/2023, 03/10/2023 IPV Vaccines Aged Out No longer eligi ble based on patient's age to complete this topic Medical Devices Implanted Type Area Targeteer Device Identifier Shelf Expiration Date Model / Serial / Lot Cmnt Bn Sm 40gm - [id number] Implanted:Qty: 1 on 05/23/2023 by Vel Vinson M.D., M.B.A. at [facility] Bone Cement Right: Hip Liliane 6191-1-001 / / Cmnt Bn Smp 40gm - [id number] Implanted:Qty: 1 on 05/23/2023 by Félix Mckeon M.D. at [facility] Bone Cement Right: Hip Raymond 6191-1-001 / / Cmnt Bn Smp 40gm - [id number] Implanted:Qty: 1 on 05/23/2023 by Félix Mckeon M.D. at [facility] Bone Cement Right: Hip Raymond 6191-1-001 / / Stnt Protege 0.014 4k87x165 - [id number] Implanted:Qty: 1 on 08/09/2022 by Fantasma Butt M.D. at [facility] Cardiac Stent Medtronic 02/19/2024 TPGM-0-86-13 5 / / [id number] Small Frag-Screw Yasmany 3.5x16 - Amaral [id number] Implanted:Qty: 3 on 2004 Hardware e.g. pins/screws /rods Depuy Synthes Description:Device Manufactu rer - Synthes. Device Status Text - HARDWARE-7597. K-Wire Smooth S.S. Single 9 .062 - Amaral [id number] Implanted:Qty: 1 on 2004 Hardware e.g. pins/screws /rods Liliane Description:Device Manufactu rer - Raymond Angel.. Device Status Text - HARDWARE-9295. Small [...] HARDWARE-7602. Syn Screw Schanz 5.0x250 - Amaral [id number] Implanted:Qty: 1 on 01/02/2004 Hardware e.g. pins/screws /rods Depuy Synthes Description:Device Manufactu rer - Synthes. Device Status Text - HARDWARE-97926. Guide Wire-Ball Tip 3 X 800 - Amaral [id number] Implanted:Qty: 1 on 02/03/2009 Hardware e.g. pins/screws /rods Raymond Description:Device Manufactu rer - Raymond Angel.. Device Status Text - HARDWARE- 99174. [facility] Data - [id number]. Hip Stm Prs Cmnt Rt 3 200 - [id number] Implanted:Qty: 1 on 05/23/2023 by Félix Mckeon M.D. at [facility] Hip Implant Right: Hip Depuy Synthes 08/16/2032 [id number] / / [id number] Lnr Emp Aox Std +4 40x54 - [id number] Implanted:Qty: 1 on 05/23/2023 by Félix Mckeon M.D. at [facility] Hip Implant Right: Hip Depuy Synthes 02/16/2027 4722-54-440 / / [id number] Fem Hd Art +12ofst 40 - [id number] Implanted:Qty: 1 on 05/23/2023 by Vel Vinson M.D., M.B.A. at [facility] Hip Implant Right: Hip Depuy Synthes 02/16/2033 4734-40-120 / / [id number] Stnt Zilver 518 8x80 - [id number] Implanted:Qty: 1 on 05/24/2023 by Almaz Olea M.D. at [facility] Vascular Stent [employer] 02/24/2026 [id number] / / [id number] Explanted Type Area Targeteer Device Identifier Shelf Expiration Date Model / Serial / Lot Screw-Hgpii S-Tap 6.5 X 15mm - Amaral [id number] Implanted:Qty: 1 on 02/03/2009 Explanted:Qty: 1 on 05/23/2023 by Vel Vinson M.D., M.B.A. at [facility] Hardware e.g. pins/screws /rods Nori Biomet Description:Device Manufactu rer - Nori. Device Status Text - HARDWARE-84944. Small Frag-Screw Yasmany 3.5x12 - Amaral [id number] Implanted:Qty: 1 on 01/02/2004 Explanted:Qty: 1 on 05/23/2023 by Vel Vinson M.D., M.B.A. at [facility] Hardware e.g. pins/screws /rods Depuy Synthes Description:Device Manufactu rer - Synthes. Device Status Text - HARDWARE-7595. Small Frag-Screw Yasmany 3.5x16 - Amaral [id number] Implanted:Qty: 2 on 01/02/2004 Explanted:Qty: 2 on 05/23/2023 by Vel Vinson M.D., M.B.A. at [facility] Hardware e.g. pins/screws /rods Depuy Synthes Description:Device Manufactu rer - Synthes. Device Status Text - HARDWARE-7597. Pelvic Re-Plate Cvd 3.5x 6ho - Amaral [id number] Implanted:Qty: 1 on 01/02/2004 Explanted:Qty: 1 on 05/23/2023 by Félix Mckeon M.D. at [facility] Hardware e.g. pins/screws /rods Depuy Synthes Description:Device Manufactu rer - Synthes. Device Status Text - HARDWARE-7366. Right Hip Screw-Hgpii S-Tap 6.5 X 30mm - Amaral [id number] Implanted:Qty: 2 on 02/03/2009 Explanted:Qty: 2 on 05/23/2023 by Vel Vinson M.D., M.B.A. at [facility] Hardware e.g. pins/screws /rods Nori Biomet Description:Device Manufactu rer - Nori. Device Status Text - HARDWARE-34851. Screw-Hgpii S-Tap 6.5 X 35mm - Amaral [id number] Implanted:Qty: 1 on 02/03/2009 Explanted:Qty: 1 on 05/23/2023 by Vel Vinson M.D., M.B.A. at [facility] Hardware e.g. pins/screws /rods Nori [employer]omet Description:Device Manufactu rer - Nori. Device Status Text - HARDWARE-08538. 6.5 Saniya Screw-16mm Thread 65 - Amaral [id number] Implanted:Qty: 1 on 01/02/2004 Explanted:Qty: 1 on 05/23/2023 by Vel Vinson M.D., M.B.A. at [facility] Hardware e.g. pins/screws /rods Depuy Synthes Description:Device Manufactu rer - Synthes. Device Status Text - HARDWARE-64204. Implex-Shell Hedro 54mm - Amaral [id number] Implanted:Qty: 1 on 02/03/2009 Explanted:Qty: 1 on 05/23/2023 by Vel Vinson M.D., M.B.A. at [facility] Hip Implant Other/Legacy - See Implant Description Nori [employer]omet Description:Device Manufactu rer - Nori. Body Location - Other. Right. Device Status Text - HIP [id number]. Republic-Stem Perkins 8 Hi - Amaral [id number] Implanted:Qty: 1 on 02/03/2009 Explanted:Qty: 1 on 05/23/2023 by Vel Vinson M.D., M.B.A. at [facility] Hip Implant Other/Legacy - See Implant Description [employer] Description:Device Manufactu rer - J [employer]. Body Location - Other. Right. Device Status Text - HIP [id number]. Nori Liner 0 Degree 32 X 54m - Amaral [id number] Implanted:Qty: 1 on 02/03/2009 Explanted:Qty: 1 on 05/23/2023 by Vel Vinson M.D., M.B.A. at [facility] Hip Implant Other/Legacy - See Implant Description Nori Biomet Description:Device Manufactu rer - Nori. Body Location - Other. Right. Device Status Text - HIP [id number]. Dep. Head Prodigy 32 + 1.0 - Amaral [id number] Implanted:Qty: 1 on 02/03/2009 Explanted:Qty: 1 on 05/23/2023 by Vel Vinson M.D., M.B.A. at [facility] Hip Implant Other/Legacy - See Implant Description [employer] Description:Device Manufactu rer - J [employer] J [employer]o. Body Location - Other. Right. Device Status Text - HIP IMP-639782. Procedures Procedure Name Priority Date/Time Associated Diagnosis Comments HEMOGLOBIN, B Routine 12/03/2023 8:23 AM CDT GLUCOSE POCT, B Routine 12/02/2023 9:09 PM CDT GLUCOSE POCT, B Routine 12/02/2023 1:05 PM CDT ADULT OXYGEN THERAPY Routine 12/02/2023 12:19 PM CDT ADULT OXYGEN THERAPY Routine 12/02/2023 12:19 PM CDT SURGICAL PATHOLOGY Routine 12/02/2023 11:55 AM CDT COLONOSCOPY Routine 12/02/2023 11:10 AM CDT COLONOSCOPY Routine 12/02/2023 11:10 AM CDT GASTROENTEROLOGY IMAGE EXAM Routine 12/02/2023 11:10 AM CDT GLUCOSE POCT, B Routine 12/02/2023 10:50 AM CDT HEMOGLOBIN, B Routine 12/02/2023 8:27 AM CDT GLUCOSE POCT, B Routine 12/01/2023 9:32 PM CDT GLUCOSE POCT, B Routine 12/01/2023 12:06 PM [...] PM CDT HEMOGLOBIN A1C, B STAT 05/24/2023 5:59 AM CDT LIPID PANEL, S STAT 05/24/2023 5:59 AM CDT ALBUMIN, RANDOM, U Routine 03/10/2023 11:30 AM COMMUNITY SERVICE WORKER Diabetes Mellitus Type 2 Ulcer Foot Hyperglycemic (HCC) from Last 3 Months or Most Recently Relevant to Health Maintenance Results * (ABNORMAL) Hemoglobin (12/03/2023 8:23 AM CDT) Only the most recent of2 resultswithin the time period is included. Hemoglobin 9.9(L) 13.2 - 16.6 g/dL 12/03/2023 9:37 AM CDT DTL Blood (Blood, Venous) 12/03/2023 8:23 AM CDT 12/03/2023 9:14 AM CDT Yola Triana M.D. LAB BLOOD ADD-ON Cata l Result [facility] [address] [place] [address], [facility] DTL [facility] [address] [place] [address] * Glucose, POCT (12/02/2023 9:09 PM CDT) Only the most recent of14 resultswithin the time period is included. Glucose, POCT, B 140 70 - 140 mg/dL 12/02/2023 9:24 PM CDT PCLX Site Capillary 12/02/2023 9:24 PM CDT PCLX Last Intake 3-4 hours 12/02/2023 9:24 PM CDT PCLX Blood 12/02/2023 9:09 PM CDT 12/02/2023 9:24 PM CDT us Unknown Provider LAB POCT ORDERABLES-MANUAL Cata l Result [facility] [address] [place] [address], [facility] PCLX [facility] [address] [place] [address] * Surgical Pathology (12/02/2023 11:55 AM CDT) 12/10/2023 1:04 PM CDT DTL Report electronically signed by Daljit Castillo M.D., Ph.D. I verify that I have examined all relevant slides/materials for the specimen(s) and rendered or confirmed the diagnosis. Seen in consultation with: Venu Chapin M.D. 12/10/2023 1:04 PM CDT DTL Gross Description Received in formalin labeled with the patient's name, medical record number, and colon, 70 cm, splenic flexure are five pale romero-pinkirregular soft tissues, ranging from 0.2-0.3 cm in greatest dimension. Specimens are submitted en toto in cassette A1. ??Grossed by LOVELY. 12/10/2023 1:04 PM CDT DTL Disclaimer This test was developed using an analyte specific reagent. Its performance characteristics were determined by [facility] in a manner consistent with CLIA requirements. This test has not been cleared or approved by the U.S. Food and Drug Administration. Test results for (IHC or ZENA) testing are valid for specimens fixed between 6 and 72 hours. ??Delay to fixation, under fixation or over fixation fall outside of guidelines and may affect these results. 12/10/2023 1:04 PM CDT DTL Interpretation FINAL DIAGNOSIS A. Colon, 70 cm, Splenic flexure, endoscopic biopsy: Active colitis with ulceration and reactive bizarre stromal cells. ??No dysplasia or malignancy. Immunostains for CMV, HSV I+II, and adenovirus are negative. ??Immunostains for AE1/3, CD45, CDX2, ERG, Desmin, SOX10, KIT, DOG1, and SMA are unremarkable. Digital imaging was used in the diagnostic assessment of this case. 12/10/2023 1:04 PM CDT DTL Biopsy (Colon) 12/02/2023 11 :55 AM CDT us Edgard Guillen M.D. LAB SURG PATH ORDERABLES F inal Result Performing Organization Address City/State/[facility] Co de Phone Number [facility] [address] [place] [address], [facility] DTL [address] [place] [address] * Colonoscopy (12/02/2023 11:10 AM CDT) 12/02/2023 11:1 0 AM CDT Impressions [facility] - 12/02/2023 12:40 PM CDT Post-op Diagnoses: ? - Preparation of the colon was inadequate. ? - The examined portion of the ileum was normal. NO evidence of recent GI ? bleeding. ? - A single (solitary) ulcer at the splenic flexure. Biopsied. Tattooed. ? - Non-bleeding external and internal hemorrhoids. Narrative [facility] - 12/02/2023 12:40 PM CDT William 6 GI GI Patient Name: Estevan Lester Date of : 1965 Age: 58 Procedure Date: 12/02/2023 Procedure: ? Colonoscopy Providers: ? Edgard Guillen MD, Carolina Walker MD (Fellow) Referring Provider: ?Theodore Dsouza Pre-op Diagnoses: ?Hematochezia Recommendation: ? - PATHOLOGY/MICROBIOLOGY FOLLOW-UP: The ordering provider is responsible ? for reviewing results from specimens obtained during this endoscopic ? procedure and communicating the findings to the patient. If guidance is ? needed for interpreting endoscopic findings or pathology results, please ? consider a gastroenterology e-consult. ? - REPEAT colonoscopy within 12 months for surveillance due to history of ? polyps and inadequate preparation today. ? - Await pathology results. ? - The quality of preparation was inadequate for proper examination. ? Colonoscopy findings should be interpreted with caution, as poor ? preparation may result in missed lesions. For future procedures, the ? patient should begin a clear liquid diet (no red liquids) 2-3 days prior ? to beginning colonoscopy preparation. An alternate large-volume ? preparation should be used, given the inadequacy the of the initial ? preparation. Findings: ? The terminal ileum appeared normal. ? A single (solitary) 2 cm ulcer was found at 70 cm, suspected at the ? splenic flexure. No bleeding was present. This was biopsied with a cold ? forceps for histology. This area was tattooed with an injection of 2 mL ? of Spot at a location 2 cm distal to the area of ulceration (towards the ? anus). ? Non-bleeding external and internal hemorrhoids were found during ? retroflexion and during perianal exam. Procedural Details: ? The patient was seen, evaluated, history reviewed, airway and heart-lung ? exams were performed by licensed provider and were satisfactory for ? planned level of sedation care. ? The risks, benefits and alternatives for the procedure and sedation were ? discussed and informed consent was obtained. A procedural pause was ? conducted in the presence of assisting personnel to verify the correct ? patient identity and procedure to be performed. Throughout the ? procedure, the patient's blood pressure, pulse, and oxygen saturations ? were monitored continuously. The Colonoscope was introduced under direct ? vision through the anus and advanced to the terminal ileum. The ? colonoscopy was performed without difficulty. The patient tolerated the ? procedure well. The quality of the bowel preparation was fair and not ? adequate to identify polyps greater than 5 mm in size. The quality of ? the bowel preparation was evaluated using the BBPS (Tiro Bowel ? Preparation Scale) with scores of: Right Colon = 1 (portion of mucosa ? seen, but other areas not well seen due to staining, residual stool ? and/or opaque liquid), Transverse Colon = 1 (portion of mucosa seen, but ? other areas not well seen due to staining, residual stool and/or opaque ? liquid) and Left Colon = 1 (portion of mucosa seen, but other areas not ? well seen due to staining, residual stool and/or opaque liquid). The ? total BBPS score equals 3. The quality of the bowel preparation was ? inadequate. Estimated Blood Loss: ?Estimated blood loss: none. Complications: ? No immediate complications. Sedation: ? Moderate (conscious) sedation was personally administered by an ? anesthesia professional. The following parameters were monitored: oxygen ? saturation, heart rate, blood pressure, and response to care. Attending Participation: I was present and participated during the entire ? procedure, including non-stapleton portions. Edgard Guillen MD 12/02/2023 12:40:02 PM This report has been signed electronically. Number of Addenda: 0 us Theodore Dsouza M.D. GI PROCEDURE ORDERABLES Final Result [facility] NA * Colon, Splenic flexure Colonoscopy-Gastroenterology Image Exam (12/02/2023 11:10 AM CDT) 12/02/2023 11:1 0 AM CDT Narrative [facility]IM[facility] - 12/02/2023 12:49 PM CDT This order has been created and auto-finalized to support the import of images acquired without order. The clinical documentation to support these images can be found on the encounter that produced images. us Provider Not In System IMG NON RAD IMAGING PROCE DURES Final Result Performing Organization Address City/[facility]/ZIP Co de Phone Number IIWA NA * (ABNORMAL) CBC without Differential (11/30/2023 6:54 [...] 6:54 AM CDT 11/30/2023 7:15 AM CDT us Theodore Dsouza M.D. LAB BLOOD ADD-ON Final Result [facility] [address] [place] [address], [facility] DTL [facility] [address] [place] [address] * Basic Metabolic Panel (11/30/2023 6:54 AM [...] Dsouza M.D. LAB BLOOD ADD-ON Final Result [facility] [address] [place] [address], [facility] [address] [place] [address] * (ABNORMAL) Morphology Eval (special smear) (11/29/2023 [...] - 2 % 11/29/2023 10:31 AM CDT PM Manual Absolute Neutrophil Count 4.39 1.56 - 6.45 x10(9)/L 11/29/2023 10:31 AM CDT [facility] Comment: ----ADDITIONAL INFORMATION---- The manual absolute neutrophil count is derived from a manual differential count and therefore is not exactly comparable to the automated absolute neutrophil count. Interpretation See Comment 10:31 AM CDT [facility] Comment:Peripheral blood sme ar reviewed: no diagnostic abnormalities are seen. Reviewed by: Rayne 11/29/2023 10:31 AM CDT [facility] Blood (Blood, Venous) 11/29/2023 7:49 AM CDT 11/29/2023 8:18 AM CDT Zahira Shaw APRN, C.N.P., D.N.P. LAB BLOOD [place] [address] * (ABNORMAL) Iron and Total Iron-Binding Capacity (11/29/2023 7:49 AM CDT) [facility] Iron 60 50 - 150 mcg/dL 11/29/2023 8:52 AM CDT DTL Total Iron Binding Capacity 241(L) 250 - 400 mcg/dL 11/29/2023 8:52 AM CDT DTL Percent Saturation 25 14 - 50 % 11/29/2023 8:52 AM CDT DTL Blood (Blood, Venous) 11/29/2023 7:49 AM CDT 11/29/2023 8:33 AM CDT Zahira Shaw APRN, C.N.P., D.N.P. LAB BLOOD ADD-ON Final Result [facility] [address] [place] [address], [facility] DTL [facility] [address] [place] [address] * (ABNORMAL) CBC with Differential, Blood (11/29/2023 [...] 7:49 AM CDT 11/29/2023 8:18 AM CDT Venu Woo APRN.N.P., D.N.P. LAB BLOOD ADD-ON Final Result Performing Organization Address City/[facility] Co de Phone Number [facility] [address] [place] [address], [facility] [address] [place], [place] [id number] [place] [address] [address] [place] [address] * Folate (11/29/2023 7:49 AM CDT) Pathologist [facility] Folate, S >20.0 >=4.0 mcg/L 12/01/2023 8: 08 AM CDT DT Blood (Blood, Venous) 11/29/2023 7:49 AM CDT 11/29/2023 8:33 AM CDT Zahira Shaw APRN C.N.P., D.N.P. LAB BLOOD ADD-ON Final Result Performing Organization Address City/[facility] Co de Phone Number [facility] [address] [place], [place] [address] [place] [address] [address] [place] [address] * Vitamin B12 Assay (11/29/2023 7:49 AM CDT) Pathologist [facility] Vitamin B12 Assay, S 585 180 - 914 ng/L 12/01/2023 8:17 AM CDT DT Comment: ----ADDITIONAL INFORMATION---- In patients being evaluated [...] 7:49 AM CDT 11/29/2023 8:33 AM CDT Abena Woo APRNNRegi., D.N.P. LAB BLOOD ADD-ON Final Result [facility] [address] [place] [address], [place] DTL [facility] [address] [place] [address] * CT Abdomen Pelvis without and with [...] D.N.P., M.S.N. LAB BLOOD ADD-ON Final Result [facility] [address] [place] [address], [facility] DTL [facility] [address] [place] [address] * Type and Screen (with Reflex Antibody ID) (11/28/2023 3:31 PM CDT) Pathologist [facility] ABORh O Pos Not applicable 11/28/2023 4:02 [...] O RDERABLES Final Result Performing Organization Address [facility] Co de Phone Number [facility] [address] [place] [address], [facility] STRM [facility] [address] [place] [address] * Lactate (11/28/2023 3:31 PM CDT) [facility] Lactate, P 1.2 0.5 - 2.2 mmol/L 11/28/2023 3:59 PM CDT [facility] Blood (Blood, Venous) 11/28/2023 3:31 PM CDT 11/28/2023 3:44 PM CDT us Jonna Kwok M.D., J.D. LAB BLOOD NON ADD-ON Final Result [facility] [address] [place] [address], [facility] STMA [facility] [address] [place] [address] * Ferritin (11/28/2023 3:20 PM CDT) Ferritin, S 302 31 - 409 mcg/L 11/29/2023 4:22 AM CDT DTL Blood (Blood, Venous) 11/28/2023 3:20 PM CDT 11/29/2023 3:49 AM CDT Zahira Shaw APRN, C.N.P., D.N.P. LAB BLOOD ADD-ON Final Result [facility] [address] [place] [address], [facility] DTL [facility] [address] [place] [address] * ECG 12 Lead (11/28/2023 3:18 PM CDT) Pathologist [facility] Ventricular Rate ECG/Min 58 BPM MUSE VA Interval 208 ms MUSE QRSD Interval 94 ms MUSE QT Interval 460 ms MUSE QTC Interval 451 ms MUSE R [place] 43 degrees MUSE T Wave [place] -22 degrees MUSE 11/28/2023 3:18 PM CDT 11/28/2023 3:27 PM CDT Impressions MUSE - 11/28/2023 3:27 PM CDT Sinus bradycardia with 1st degree A-V block Low voltage QRS Low anterior forces Nonspecific T wave abnormality When compared with ECG of 24-May-2023 12:12, VA interval has increased T wave changes QT has shortened Reviewed by MARTHA Shah Narrative Procedure Note Prudencio Painting Jr., M.D. - 11/28/2023 IMPRESSION: Sinus bradycardia with 1st degree A-V block Low voltage QRS Low anterior forces Nonspecific T wave abnormality When compared with ECG of 24-May-2023 12:12, VA interval has increased T wave changes QT has shortened Reviewed by MARTHA Shah Paola Solis APRN, C.N.P., D.N.P., M.S.N. ECG ORDERABLES Final Result MUSE NA * (ABNORMAL) Lipid Panel (05/24/2023 5:59 AM CDT) Triglycerides 65 mg/dL 05/24/2023 9:47 AM CDT DTL Comment: ----REFERENCE VALUE---- Normal: <150 mg/dL Borderline High: 150-199 mg/dL High: 200-499 mg/dL Very High: > or =500 mg/dL Cholesterol, Total 63 mg/dL 2023 9:47 AM CDT DTL Comment: ----REFERENCE VALUE---- Desirable: < 200 mg/dL Borderline High: 200 - 239 mg/dL High: > or = 240 mg/dL Cholesterol, LDL, Calculated 27 mg/dL 05/24/2023 9:47 AM CDT DTL Comment: ----REFERENCE VALUE---- Desirable: <100 mg/dL Above Desirable: 100-129 mg/dL Borderline High: 130-159 mg/dL High: 160-189 mg/dL Very High: >=190 mg/dL ----ADDITIONAL INFORMATION---- LDL cholesterol calculated using the Song/NIH equation. Cholesterol, HDL, S 21(L) >=40 mg/dL 05/24/2023 9:47 AM CDT DTL Cholesterol, Non-HDL, Calculated 42 mg/dL 05/24/2023 9:47 AM CDT DTL Comment: ----REFERENCE VALUE---- Desirable: <130 mg/dL Above Desirable: 130-159 mg/dL Borderline High: 160-189 mg/dL High: 190-219 mg/dL Very High: > or =220 mg/dL Fasting (8 HR or more) Unknown 05/24/2023 6:27 AM CDT DTL Blood (Blood, Venous) 05/24/2023 5:59 AM CDT 05/24/2023 6:27 AM CDT Morgan Duran M.D. LAB BLOOD ADD-ON Final R esult [facility] [address] [place] [address], [place] DTL [facility] [address] [place] [address] * Albumin, Random, Urine (03/10/2023 11:30 AM COMMUNITY SERVICE WORKER) Microalbumin <12.0 mg/L 03/10/2023 11:54 AM COMMUNITY SERVICE WORKER [facility] Comment:If clinically indica faviola, contact the lab for additional testing. Creatinine 112 mg/dL 03/10/2023 11:54 AM COMMUNITY SERVICE WORKER [facility] Albumin/Creatinine Ratio <11 <17 mg/g 03/10/2023 11:54 AM COMMUNITY SERVICE WORKER [facility] Comment: This ratio may not correspond with the reference range because one or both of the values used to calculate the ratio was above or below the quantification limits. Urine (Urine, Midstream) 03/10/2023 11:30 AM COMMUNITY SERVICE WORKER 03/10/2023 11:30 AM COMMUNITY SERVICE WORKER us Doug Lima M.D. LAB URINE ORDERABLES Final R esult [facility] [address] [place] [address], [facility] RDWG [facility] [address] [place] [address] from Last 3 Months or Most Recently Relevant to Health Maintenance Insurance [facility] [address] [place] [address] [employer] Advance Directives For more information, please contact: [phone] * Full Code (Latest Code Status on File) Date Activated Date Inactivated Comments 11/28/2023 9:48 PM 12/03/2023 12:18 PM Question Answer Comments Full Code: Not [...] Due to: Patient not available Care Teams Charter Pilot Relationship Specialty Start Date End Date Elsewhere, Pcp PCP - General Internal Medicine 10/03/23
--- OUTSIDE RECORDS SUMMARY | 2023-12-29 13:06 | XMS_ITS | Clinical Summary ---
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 Pressure: 5-18cm/H2O Length of Need: 99 1 Device 0 04/27/2015 Active acetaminophen (TYLENOL EXTRA STRGTH) 500 mg tablet Take 1,000 mg by mouth three times daily. Max acetaminophen dose: 4000mg in 24 hrs. Active levETIRAcetam (KEPPRA) 100 mg/mL oral solution Take 750 mg by mouth two times daily. 06/25/2023 Active lisinopriL (PRINIVIL; ZESTRIL) 5 mg tablet Take 5 mg by mouth once daily. 09/03/2023 Active rivaroxaban (XARELTO) 10 mg tablet Take 10 mg by mouth once daily with evening meal. 08/28/2023 08/28/19 25 Active Senna 8.6 mg tablet Take 8.6 mg by mouth once daily. 10/29/2023 Active aspirin chewable 81 mg chewable tablet Chew 81 mg by mouth once daily. Active atorvastatin (LIPITOR) 20 mg tablet Take 20 mg by mouth at bedtime. Active insulin NPH isophane, U-100, (NovoLIN N FlexPen) 100 unit/mL (3 mL) pen Inject subcutaneous two times daily with meals. As of 11/03/23: 8 units in AM, 4 units in afternoon Active carboxymethylcellulos e 0.5 % eye drops in dropperette Place 2 Drops into both eyes two times daily. Active nystatin powder (MYCOSTATIN) powder Apply topically to affected area(s) two times daily. Active pantoprazole (PROTONIX) 40 mg delayed-release tabletIndications:Gas trointestinal hemorrhage, unspecified gastrointestinal hemorrhage type Take 1 Tablet (40 mg) by mouth two times daily before meals. 40 mg p.o. twice daily for 30 days, then decrease to 40 mg p.o. daily indefinitely 90 Tablet 11/06/2023 Active polyethylene glycol (MIRALAX; GLYCOLAX) 17 g per packet packetIndications:Con stipation, unspecified constipation type Mix 17 g (1 Packet) in liquid then take by mouth once daily if needed for Constipation. 30 Packet 11/06/2023 Active sucralfate (CARAFATE) 1 gram tabletIndications:Gas trointestinal hemorrhage, unspecified gastrointestinal hemorrhage type Take 1 Tablet (1 g) by mouth four times daily before meals and at bedtime. Stop after 30 days 120 Tablet 11/06/2023 Active Active Problems Problem Noted Date Diagnosed [...] Encounters Date Type Department Care Team Description 12/19/19 24 Lab Requisition L [facility] [phone] William Edwards MD 12/04/19 24 Lab Requisition [facility] [phone] Pauline Mcbride NP 11/21/19 24 Lab Requisition [facility] [phone] Pauline Mcbride NP 11/15/19 24 Lab Requisition [facility] [phone] Pauline Mcbride NP 11/07/19 24 Lab Requisition [facility] [phone] William Edwards MD 11/03/19 1:45 PM CDT - 11/03/19 2:10 PM CDT Surgery [facility] [address] [place] [address] Gino Kern MD ESOPHAGOGASTRODUODENOSCOPY 11/03/19 7:49 AM CDT - 11/07/19 11:20 AM CDT Hospital Encounter [facility] [address] [place] [address] Sierra Salazar MD Block, Sreedhar Arriola MD [facility], Julianne Davidson MD [facility], [facility] Gastrointestinal hemorrhage, unspecified gastrointestinal hemorrhage type (Primary Dx); Constipation, unspecified constipation type Discharge Disposition: [facility] Facility 11/03/19 Orders Only [facility] Scanner 1 scan: (1-Ord) HARVEST, CT ANGIO ABD PEL GI BLEED, 11/03/2023 10/27/19 Lab Requisition [facility] [phone] Pauline Mcbride NP from Last 3 Months Immunizations Name Administration [...] Associated Diagnosis Comments HEPATIC FUNCTION PANEL Routine 7:43 AM [employer]ALTED [employer]IXER Anemia, unspecified Elevation of levels of liver transaminase levels Type 2 diabetes mellitus without complications (HC) BASIC METABOLIC PANEL Routine 12/23/2023 7:43 AM [employer] Anemia, unspecified Elevation of levels of liver transaminase levels Type 2 diabetes mellitus without complications (HC) HEMOGLOBIN A1C Routine 12/23/2023 7:43 AM [employer] Anemia, unspecified Elevation of levels of liver transaminase levels Type 2 diabetes mellitus without complications (HC) GAMMA GT Routine 12/23/2023 7:43 AM [employer] Anemia, unspecified Elevation of levels of liver transaminase levels Type 2 diabetes mellitus without complications (HC) HEMOGLOBIN Routine 12/23/2023 7:43 AM [employer] Anemia, unspecified Elevation of levels of liver transaminase levels Type 2 diabetes mellitus without complications (HC) HEMOGLOBIN Routine 12/09/2023 8:30 AM CDT Anemia, unspecified RED CELL MORPHOLOGY Routine 11/25/2023 7:25 AM [...] ESOPHAGOGASTRODUODENOSCOPY 11/02 12:35 PM CDT See Md note ENDOSCOPY 11/03/2023 12:30 PM CDT TYPE [...] Elevation of levels of liver transaminase levels from Last 3 Months or Most Recently Relevant to Health Maintenance Results * HEMOGLOBIN A1C (12/23/2023 7:43 AM M[employer]) Pathologist [facility] HEMOGLOBIN A1C SCREENING 5.4 <=6.4 % 12/23/2023 9:43 AM MALTED [employer]IXER [facility] Blood BLOOD SPECIMEN / Unknown Venipuncture / Unknown 12/23/2023 7:43 AM [employer]ER 12/23/2023 9:33 AM [employer]ED [employer] - 12/23/2023 9:43 AM MALTED MIL[employer] MIXER ? (<5.7%) ?Normal ? (5.7% to 6.4%) ? Indicates prediabetes ? (>=6.5%) ? Confirms diabetes Falsely low levels may be seen with: Recent Transfusion, Recent Significant Blood Loss, Hemolytic Diseases, or Falsely elevated levels may be seen with: Untreated Anemias, Splenectomy Wliliam Edwards MD CHEMISTRY [facility] [address] [place] [address] * (ABNORMAL) HEMOGLOBIN (12/23/2023 7:43 AM MALTED [employer]IXER) Only the most recent of4 resultswithin the time period is included. [facility] HEMOGLOBIN 10.9(L) 13.5 - 17.5 g/dL 12/23/2023 10:04 AM [facility] MCV 92 80 - 100 fL 12/23/2023 10:04 AM [facility] Blood BLOOD SPECIMEN / Unknown Venipuncture / Unknown 12/23/2023 7:43 AM M[employer]ED MIL[employer] MIXER 12/23/2023 9:33 AM M[employer]ER William Edwards MD HEMATOLOGY Performing Organization Address City/[facility]/ZIP Co de Phone Number [facility] [address] [place] [address] * (ABNORMAL) GAMMA GT (12/23/2023 7:43 AM MALTED [employer] MIXER) Only the most recent of2 resultswithin the time period is included. Pathologist [facility] GAMMA GT 84(H) 8 - 61 IU/L 12/23/2023 12:54 PM [facility] Blood BLOOD SPECIMEN / Unknown Venipuncture / Unknown 12/23/2023 7:43 AM MALTED MIL[employer] MIXER 12/23/2023 9:33 AM [employer]ER William Edwards MD CHEMISTRY Performing Organization Address [facility]/ZIP Co de Phone Number [facility] [address] [place] [address], * (ABNORMAL) HEPATIC FUNCTION PANEL (12/23/2023 7:43 AM M[employer]ED [employer]IXER) Only the most recent of2 resultswithin the time period is included. Pathologist [facility] ALBUMIN 4.3 4.0 - 4.9 g/dL 12/23/2023 10:09 AM [facility] PROTEIN,TOTAL 7.0 6.0 - 8.0 g/dL 12/23/2023 10:09 AM [facility] BILIRUBIN,TOTAL 0.3 0.0 - 1.2 mg/dL 12/23/2023 10:09 AM [facility] BILIRUBIN,DIRECT 0.1 0.0 - 0.2 mg/dL 12/23/2023 10:09 AM [facility] ALK PHOSPHATASE 138(H) 40 - 129 IU/L 12/23/2023 10:09 AM [facility] ALT (SGPT) 23 10 - 50 IU/L 12/23/2023 10:09 AM [facility] AST (SGOT) 28 10 - 50 IU/L 12/23/2023 10:09 AM [facility] Blood BLOOD SPECIMEN / Unknown Venipuncture / Unknown 12/23/2023 7:43 AM MALTED MIL[employer] MIXER 12/23/2023 9:33 AM [facility] William Edwards MD CHEMISTRY [facility] [address] [place] [address] * (ABNORMAL) BASIC METABOLIC PANEL (12/23/2023 7:43 AM [facility]) Only the most recent of4 resultswithin the time period is included. SODIUM 141 136 - 145 mmol/L 12/23/2023 10:09 AM [facility] POTASSIUM 4.5 3.5 - 5.1 mmol/L 12/23/2023 10:09 AM [facility] CHLORIDE 101 98 - 107 mmol/L 12/23/2023 10:09 AM [facility] CO2,TOTAL 29 22 - 29 mmol/L 12/23/2023 10:09 AM [facility] ANION GAP 11 5 - 18 12/23/2023 10:09 AM [facility] GLUCOSE 102(H) 70 - 99 mg/dL 12/23/2023 10:09 AM [facility] CALCIUM 9.6 8.8 - 10.4 mg/dL 12/23/2023 10:09 AM [facility] Comment: Reference ranges for this test were updated on 12/23/2023 to reflect our healthy population more accurately. Reference range changes are not retroactively applied to results, but previous results using the same methodology can be interpreted in the context of the new reference range. BUN 18 6 - 20 mg/dL 12/23/2023 10:09 AM [facility] CREATININE 0.90 0.70 - 1.20 mg/dL 12/23/2023 10:09 AM [facility] BUN/CREAT RATIO 20 10 - 20 4 10:09 AM [facility] eGFR >90 >90 mL/min/1. 73m2 12/23/2023 10:09 AM [facility] Comment:As of 2021, eG FR is calculated by the CKD-EPI creatinine equation without race adjustment. ??eGFR can be influenced by muscle mass, exercise, and diet. ??The reported eGFR is an estimation only and is only applicable if the renal function is stable. Blood BLOOD SPECIMEN / Unknown Venipuncture / Unknown 12/23/2023 7:43 AM [employer]ER 12/23/2023 9:33 AM [employer] William Edwards MD CHEMISTRY [facility] [address] [place] [address] * (ABNORMAL) CBC WITH AUTO DIFFERENTIAL (11/25/2023 7:25 AM T) Only the most recent of3 resultswithin the time period is included. WHITE BLOOD COUNT 6.4 4.5 - 11.0 thou/cu mm 11/25/2023 10:47 AM [facility] RED BLOOD COUNT 3.47(L) 4.30 - 5.90 mil/cu mm 11/25/2023 10:47 AM [facility] HEMOGLOBIN 10.5(L) 13.5 - 17.5 g/dL 11/25/2023 10:47 AM [facility] HEMATOCRIT 32.0(L) 37.0 - 53.0 % 11/25/2023 10:47 AM [facility] MCV 92 80 - 100 fL 11/25/2023 10:47 AM [facility] MCH 30.3 26.0 - 34.0 pg 11/25/2023 10:47 AM [facility] MCHC 32.8 32.0 - 36.0 g/dL 11/25/2023 10:47 AM CDT [facility] RDW 15.4 11.5 - 15.5 % 11/25/2023 10:47 AM CDT [facility] PLATELET COUNT 170 140 - 440 thou/cu mm 11/25/2023 10:47 AM CDT [facility] MPV 10.5 6.5 - 11.0 fL 11/25/2023 10:47 AM CDT [facility] Blood BLOOD SPECIMEN / Unknown Venipuncture / Unknown 11/25/2023 7:25 AM CDT 11/25/2023 9:06 AM CDT Pauline Mcbride NP HEMATOLOGY Performing Organization Address City/[facility]/ZIP Co de Phone Number [facility] [address] [place] [address] * RED CELL MORPHOLOGY (11/25/2023 7:25 AM CDT) Only the most recent of2 resultswithin the time period is included. RBC COMMENT RBC morphology appears normal RBC morphology appears normal, RBC morphology within normal limits for newborns. 11/25/2023 10:47 AM CDT [facility] Blood BLOOD SPECIMEN / Unknown Venipuncture / Unknown 11/25/2023 7:25 AM CDT 11/25/2023 9:06 AM CDT Pauline Mcbride NP HEMATOLOGY [facility] [address] [place] [address] * PLATELET ESTIMATE (11/25/2023 7:25 AM CDT) Only the most recent of2 resultswithin the time period is included. PLATELET ESTIMATE Adequate Adequate, No estimate 11/25/2023 10:47 AM CDT [facility] Blood BLOOD SPECIMEN / Unknown Venipuncture / Unknown 11/25/2023 7:25 AM CDT 11/25/2023 9:06 AM CDT Pauline Mcbride NP HEMATOLOGY [facility] [address] [place] [address] * (ABNORMAL) MANUAL DIFFERENTIAL (11/25/2023 7:25 AM CDT) Only the most recent of2 resultswithin the time period is included. % NEUTROPHILS 39.0 % 11/25/2023 10:47 AM [facility] % LYMPHOCYTES 36.0 % 11/25/2023 10:47 AM [facility] % MONOCYTES 13.0 % 11/25/2023 10:47 AM [facility] % EOSINOPHILS 11.0 % 11/25/2023 10:47 AM [facility] % BASOPHILS 1.0 % 11/25/2023 10:47 AM [facility] NEUTROPHILS ABSOLUTE 2.5 1.7 - 7.0 thou/cu mm 11/25/2023 10:47 AM [facility] LYMPHOCYTES ABSOLUTE 2.3 0.9 - 2.9 thou/cu mm 11/25/2023 10:47 AM [facility] MONOCYTES ABSOLUTE 0.8 <0.9 thou/cu mm 11/25/2023 10:47 AM [facility] EOSINOPHILS ABSOLUTE 0.7(H) <0.5 thou/cu mm 11/25/2023 10:47 AM [facility] BASOPHILS ABSOLUTE 0.1 <0.3 thou/cu mm 11/25/2023 10:47 AM [facility] Blood BLOOD SPECIMEN / Unknown Venipuncture / Unknown 11/25/2023 7:25 AM CDT 11/25/2023 9:06 AM CDT Pauline Mcbride NP HEMATOLOGY [facility] [address] [place] [address] * (ABNORMAL) GLUCOSE METER (11/07/2023 6:57 AM CDT) Only the most recent of12 resultswithin the time period is included. GLUCOSE METER 123(H) 65 - 100 mg/dL 11/07/2023 7:00 AM CDT [facility] Blood BLOOD SPECIMEN / Unknown 11/07/2023 6:57 AM CDT 11/07/2023 7:00 AM CDT Julianne Velasquez MD CHEMISTRY [facility] [address] [place] [address], [place] * XR Chest 1 View Portable - INTERNAL CONTROL SPECIALIST (11/06/2023 12:55 PM CDT) Anatomical Region Laterality Modality HEART, THORAX, CHEST Digital Rad iography 11/06/2023 1:15 PM CDT Impressions 11/06/2023 1:15 PM CDT No focal pulmonary opacities. No pneumothorax. Dictated by Connor Clark MD @ Nov 06 2023 ??1:15PM (Electronically Signed) [email or web address] Narrative 11/06/2023 1:15 PM CDT For Patients: [...] @ Nov 06 2023 1:15PM (Electronically Signed) [email or web address] Julianne Velasquez MD GENERAL IM AGING * 12 Lead EKG - INTERNAL CONTROL SPECIALIST (11/06/2023 12:12 PM CDT) [facility] Interpretation Sinus bradycardia Low voltage QRS Borderline ECG No previous ECGs available BEYOND NOW Ventricular Rate 57 BPM BEYOND NOW Atrial Rate 57 BPM BEYOND NOW P-R Interval 160 ms BEYOND NOW QRS Duration 92 ms BEYOND NOW QT 444 ms BEYOND NOW QTc 432 ms BEYOND NOW P [place] -19 degrees BEYOND NOW R [place] -4 degrees BEYOND NOW T [place] -1 degrees BEYOND NOW 11/06/2023 12:1 2 PM CDT 11/07/2023 6:50 PM CDT Julianne Velasquez MD EKG ORD Performing Organization Address City/[facility]/ZIP Co de Phone Number BEYOND NOW [place], [place] * POTASSIUM (11/06/2023 10:27 AM CDT) Only the most recent of3 resultswithin the time period is included. [facility] POTASSIUM 4.2 3.5 - 5.1 mmol/L 11/06/2023 11:08 AM CDT [facility] Blood BLOOD SPECIMEN / Unknown Butterfly / Unknown 11/06/2023 10:27 AM CDT 11/06/2023 10:44 AM CDT Aditya Espinal RN [facility]STRY [facility] [address] [place] [address], * (ABNORMAL) CBC no diff AM (11/05/2023 5:05 AM CDT) Only the most recent of2 resultswithin the time period is included. [facility] WHITE BLOOD COUNT 8.6 4.5 - 11.0 thou/cu mm 11/05/2023 5:38 AM CDT [facility] RED BLOOD COUNT 3.20(L) 4.30 - 5.90 mil/cu mm 11/05/2023 5:38 AM CDT [facility] HEMOGLOBIN 9.1(L) 13.5 - 17.5 g/dL 11/05/2023 5:38 AM CDT [facility] HEMATOCRIT 27.8(L) 37.0 - 53.0 % 11/05/2023 5:38 AM CDT [facility] MCV 87 80 - 100 fL 11/05/2023 5:38 AM CDT [facility] MCH 28.4 26.0 - 34.0 pg 11/05/2023 5:38 AM CDT [facility] MCHC 32.7 32.0 - 36.0 g/dL 11/05/2023 5:38 AM T [facility] RDW 14.7 11.5 - 15.5 % 11/05/2023 5:38 AM CDT [facility] PLATELET COUNT 177 140 - 440 thou/cu mm 11/05/2023 5:38 AM CDT [facility] MPV 9.5 6.5 - 11.0 fL 11/05/2023 5:38 AM CDT [facility] NRBC 0.0 % 11/05/2023 5:38 AM CDT [facility] ABS NRBC 0.0 thou /cu mm 11/05/2023 5:38 AM T [facility] Blood BLOOD SPECIMEN / Unknown Butterfly / Unknown 11/05/2023 5:05 AM CDT 11/05/2023 5:19 AM CDT Julianne Velasquez MD HEMATOLOGY [facility] [address] [place] [address], * SODIUM (11/05/2023 5:05 AM CDT) Pathologist [facility] SODIUM 140 136 - 145 mmol/L 11/05/2023 5:51 AM CDT [facility] Blood BLOOD SPECIMEN / Unknown Butterfly / Unknown 11/05/2023 5:05 AM CDT 11/05/2023 5:19 AM CDT Julianne Velasquez MD CHEMISTRY Performing Organization Address City/[facility]/ZIP Co de Phone Number [facility] [address] [place] [id number], * CREATININE (11/05/2023 5:05 AM CDT) [facility] eGFR >90 >90 mL/min/1.7 3m2 11/05/2023 5:51 AM CDT [facility] Comment:As of 2021, eG FR is calculated by the CKD-EPI creatinine equation without race adjustment. ??eGFR can be influenced by muscle mass, exercise, and diet. ??The reported eGFR is an estimation only and is only applicable if the renal function is stable. CREATININE 0.86 0.70 - 1.20 mg/dL 11/05/2023 5:51 AM CDT [facility] Blood BLOOD SPECIMEN / Unknown Butterfly / Unknown 11/05/2023 5:05 AM CDT 11/05/2023 5:19 AM CDT Julianne Velasquez MD CHEMISTRY Performing Organization Address [facility]/ZIP Co de Phone Number [facility] [address] [place] [address], * SCAN-CARDIAC STRIP (11/04/2023 2:59 PM CDT) Scanner OTHER * CALCIUM IONIZED HOSPITAL DRAW ONLY (11/04/2023 12:00 PM CDT) Pathologist [facility] CALCIUM,IONIZE D 1.22 1.15 - 1.27 mmol/L 11/04/2023 12:12 PM CDT [facility] Blood BLOOD SPECIMEN / Unknown Venipuncture / Unknown 11/04/2023 12:00 PM CDT 11/04/2023 12:08 PM CDT Sreedhar Martini MD CHEMISTRY Performing Organization Address [facility] Co de Phone Number [facility] [address] [place] [address], [place] * SCAN-CARDIAC STRIP (11/04/2023 7:05 AM CDT) Scanner OTHER * PHOSPHORUS (11/04/2023 5:08 AM CDT) Only the most recent of2 resultswithin the time period is included. PHOSPHORUS 2.8 2.5 - 4.5 mg/dL 11/04/2023 6:21 AM CDT [facility] Blood BLOOD SPECIMEN / Unknown Butterfly / Unknown 11/04/2023 5:08 AM CDT 11/04/2023 5:41 AM CDT Sierra Salazar MD CHEMISTRY Performing Organization Address [facility] de Phone Number [facility] [address] [place] [address], [place] * MAGNESIUM (11/04/2023 5:08 AM CDT) Only the most recent of2 resultswithin the time period is included. MAGNESIUM 1.7 1.6 - 2.6 mg/dL 11/04/2023 6:21 AM CDT [facility] Blood BLOOD SPECIMEN / Unknown Butterfly / Unknown 11/04/2023 5:08 AM CDT 11/04/2023 5:41 AM CDT Sierra Salazar MD CHEMISTRY Performing Organization Address [facility] Co de Phone Number [facility] [address] [place] [address], [place] * SCAN-CARDIAC STRIP (11/03/2023 2:56 PM CDT) Scanner OTHER * SCAN CORRESP-EKG RESULTS (11/03/2023 2:20 PM CDT) Narrative 11/03/2023 2:20 PM CDT Ordered by an unspecified provider. Other Clinical Staff OTHER * SCAN-CARDIAC STRIP (11/03/2023 1:40 PM CDT) Scanner OTHER * ENDOSCOPY (11/03/2023 12:30 PM CDT) 11/03/2023 12:3 0 PM CDT Narrative Transcriptions Gino Kern MD - 11/03/2023 1:09 PM CDT [facility] Patient Name: Estevan Lester Procedure Date: 11/03/2023 Gender: Male Date of : 1965 Admit Type: Inpatient Procedure: Upper GI endoscopy Proceduralist: Gino Kern MD - [facility] Indications/Pre-Op Diagnosis: Coffee-ground emesis, Melena Medications: Fentanyl 100 micrograms IV, Midazolam 1 mgIV Procedure Description: Risk of bleeding, infection, perforation, need for surgery and alternatives discussed. The endoscope [id number] was introduced through the mouth, and advanced to the second part of duodenum. The upper GI endoscopy was accomplished without difficulty. The patient tolerated the procedure well. Complications: No immediate complications. Estimated Blood Loss & Specimen: Estimated blood loss: none. Findings: The esophagus was normal. A 6 mm bleeding Oralia-Corado tear with stigmata of recent bleedingwas found. Hematin (altered blood/flnrxi-syupuz-vhpw material) was found on the greater curvature of the stomach. The duodenal bulb, first portion of the duodenum and second portionof the duodenum were normal. Impressions/Post-Op Diagnosis: - Normal esophagus. - Oralia-Corado tear. - Hematin (altered blood/dmgpgs-qrjqkx-ztry material) in the greater curvature of the stomach. - Normal duodenal bulb, first portion of the duodenum and secondportion of the duodenum. - No specimens collected. Recommendation: - Observe patient in ICU. PPIs- clear liquid and ADAT if hgb [id number]-[id number]-[id number] if needed Gino Kern MD 11/03/2023 1:09:30 PM This report has been signed electronically. Note Initiated On: 11/03/2023 12:30 PM Gino Kern MD PROCEDURE ORD * TYPE & SCREEN (11/03/2023 9:34 AM CDT) ABORH O Rh Positive 11/03/2023 10:26 AM CDT [facility] ANTIBODY SCREEN Negative Negative 11/03/2023 10:26 AM CDT [facility] SPECIMEN EXPIRATION DATE/TIME 11/06/23 23:59 11/03/2023 10:26 AM CDT [facility] Blood BLOOD SPECIMEN / Unknown Non-Lab Venipuncture / Unknown 11/03/2023 9:34 AM CDT 11/03/2023 9:43 AM CDT Raquel Aaron MD BLOOD BANK [facility] [address] [place] [address], * (ABNORMAL) Protime - INR (11/03/2023 9:34 AM CDT) INR 1.4(H) <1.3 11/03/2023 9:59 AM CDT [facility] PROTIME 15.2(H) 10.3 - 12.3 sec 11/03/2023 9:59 AM CDT [facility] Blood BLOOD SPECIMEN / Unknown Non-Lab Venipuncture / Unknown 11/03/2023 9:34 AM CDT 11/03/2023 9:44 AM CDT Narrative [facility] - 11/03/2023 9:59 AM CDT ?Therapeutic [...] is on UFH. Ede Casas MD HEMATOLOGY [facility] [address] [place] [address], * FIBRINOGEN,QUANTITATIVE (11/03/2023 9:34 AM CDT) FIBRINOGEN,JESS NTITATIVE 268 193 - 401 mg/dL 11/03/2023 9:59 AM CDT [facility] Blood BLOOD SPECIMEN / Unknown Non-Lab Venipuncture / Unknown 11/03/2023 9:34 AM CDT 11/03/2023 9:44 AM CDT Ede Casas MD HEMATOLOGY [facility] [address] [place] [address], [place] * SCAN-CT INTERPRETATION (11/03/2023 12:00 AM CDT) Anatomical Region Laterality Modality Other Scanner OTHER * LIPID PANEL (09/23/2023 7:41 AM CDT) CHOLESTEROL,TOTAL 123 100 - 199 mg/dL 09/23/2023 9:11 AM T [facility] Comment: Cholesterol, Total Reference Ranges Desirable <200 mg/dL Borderline 200-239 mg/dL High >=240 mg/dL TRIGLYCERIDES 94 <150 mg/dL 09/23/2023 9:11 AM T [facility] HDL CHOLESTEROL 48 >40 mg/dL 9:11 AM [facility] NON-HDL CHOLESTEROL 75 <145 mg/dl 09/23/2023 9:11 AM T [facility] CHOL/HDL RATIO 2.56 <4.50 09/23/2023 9:11 AM [facility] LDL CHOLESTEROL 56 <=130 mg/dL 09/23/2023 9:11 AM [facility] VLDL CHOLESTEROL 19 <=30 mg/dL 09/23/19 9:11 AM [facility] Blood BLOOD SPECIMEN / Unknown Venipuncture / Unknown 09/23/2023 7:41 AM CDT 09/23/2023 8:46 AM CDT Pauline Mcbride NP CHEMISTRY [facility] [address] [place] [address] from Last 3 Months or Most Recently Relevant to Health Maintenance Advance Directives Documents on File Type Date Recorded Patient Plastics Design Engineer Lindsey FRIEND 06/25/2023 * Full Code (Latest Code Status on File) Date Activated Date Inactivated Comments 11/03/2023 8:15 AM 11/07/2023 1:29 PM Question Answer Comments Code Status Discussion: Reviewed Preferences Care Teams Rail Maintenance Worker Relationship Specialty Start Date End Date Monty Hernandez MD [address] [place] [address] PCP - General Family Practice 04/18/15
--- OUTSIDE RECORDS SUMMARY | 2023-12-29 13:06 | XMS_ITS ---
Author Organization [facility] Address [address] [place] [address] Care Team Providers Care Bread Molder Name Role Phone Unavailable Unavailable Unavailable Surgery Details Not on file Complications Check Surgery Details section. Procedure Estimated Blood Loss Check Surgery Details section. Procedure Findings Check Surgery Details section. Procedure Specimens Taken Check Surgery Details section.
--- OUTSIDE RECORDS SUMMARY | 2023-12-29 13:06 | XMS_ITS | Referral Summary ---
Author Organization [facility] Address [address] [place] [address] Care Team Providers Care Fundraising Manager Name Role Phone Elsewhere, Pcp Primary Care Provider Unavailabl e Source Comments Patient records contain information from all sites at [facility]. For routine questions regarding patient records, call [phone] during business hours, M-F 8:00 AM - 5:00 PM Central Time. Record requests for emergency care only can be directed to [phone] at any time.[facility] Encounters Date Type Department Care Team Description 12/18/2023 Clinical Communication Division of Gastroenterology in [place], [place] [address] [place] [phone] Ede Crespo M.D. e-Consult Follow-Up (Completed 12/07 post ED visit 11/27) 12/18/2023 Clinical Communication Department of Orthopedic Surgery in [place], [place] [address] [place] [phone] Vel Vinson M.D., M.B.A. 12/17/2023 Clinical Communication Department of Hospital Internal Medicine in [place], [place] [address] [place] [address] Lul Galeas M.D. 12/11/2023 Orders Only Department of Orthopedic Surgery in [place], [place] [address] [place] [phone] Maurisio Peoples M.D. Stroke (HCC) (Primary Dx) 12/08/2023 1:00 PM CDT Internal E-Consult Division of Gastroenterology in [place], [place] [address] [place] [phone] Lul Galeas M.D. Ede Crespo M.D. Ulcer Colon (Primary Dx); Hemorrhage Gastrointestinal 12/08/2023 8:00 AM CDT Internal E-Consult Department of Vascular Medicine in [place], [place] [address] [place] [phone] Ann Montoya APRN, C.N.P., M.S. Infection Total Hip Arthroplasty Subsequent Right 12/05/2023 Orders Only Department of Orthopedic Surgery in [place], [place] [address] [place] [phone] Maurisio Peoples M.D. Infection Total Hip Arthroplasty Subsequent Right (Primary Dx) 11/28/2023 2:49 PM CDT - 12/03/2023 10:07 AM CDT Hospital Encounter [facility], Fourth Floor [address] [place] [phone] Paola Solis APRN, C.N.P., D.N.P., M.S.N. Theodore Dsouza M.D. Beiermann, Elizabeth W, M.D. Zahira Shaw APRN, C.N.P., D.N.P. 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 Appt Request 12/02/2023 11:10 AM CDT Ancillary Procedure Department of Gastroenterology 12/02/2023 11:25 AM CDT Anesthesia Event Division of Gastroenterology in [place], [place] [address] [place] [phone] Jorge Del Rosario APRN, PEYMAN, DNAP Char Rudolph M.D. 11/03/2023 Intake [facility] 10/21/2023 Clinical Communication Department of Orthopedic Surgery in [place], [place] [address] [place] [address] Vel Vinson M.D., M.B.A. 10/03/2023 1:00 PM CDT Comprehensive Visit Department of Neurology in [place], [place] [address] [place] [address] Balbir Maradiaga M.D. Stroke Cerebrovascular Accident Personal History (Primary Dx); Seizure (HCC); Stenosis Carotid Artery Left 10/01/2023 Abstract [place], [place] [address] [place] [address] Provider, Historical from Last 3 Months Allergies Active Allergy [...] 30 test 07/30/19 Active blood-glucose meter (FreeStyle [place]) kit Use as instructed 1 each 07/30/19 Active blood glucose ctl high,nml,low solution Glucose control solution provides an easy way to ensure accurate blood glucose testing. 1 each 07/30/19 Active flash glucose scanning reader (FreeStyle Jessica 2 [place]) miscIndications: Diabetes Mellitus Type 2 Ulcer Foot [...] mouth at bedtime. 30 tablet 1 06/25/19 24 Active carboxymethylcel lulose (REFRESH PLUS) 0.5 % ophthalmic solution Administer 2 drops into both eyes 4 (four) times a day as needed for dry eyes. 50 each 06/25/19 Active levETIRAcetam (Keppra) 100 mg/mL solution Take 7.5 mL (750 mg total) by mouth 2 (two) times a day. 06/25/19 Active aspirin 81 mg chewable tablet Chew [...] (04/17/2020): Added automatically from request for surgery [id number] Hyponatremia 03/09/2020 07/30/2022 Hyperkalemia 03/09/2020 07/30/2022 Cellulitis [...] = 0.6 oz pur e alcohol) [facility] Utilities Answer Date Recorded In the past 12 months has e [employer], gas, oil, or water [employer] threatened to shut off services in your [...] your living situation today? I have a [facility] place to live 11/29/2023 Sex and Gender Information Value Date Recorded Sex Assigned at Male 07/26/2022 1:30 PM CDT Legal Sex Male 6:41 AM SUPERVISOR OF GUIDANCE AND TESTING Gender Identity Male 07/26/2022 1:32 PM CDT [...] Contact Info) Description 01/02/2024 11:30 AM SUPERVISOR OF GUIDANCE AND TESTING Clinical Communication Virtual Review in [address] [phone] 01/05/2024 9:20 AM SUPERVISOR OF GUIDANCE AND TESTING Lab Department of Infusion Therapy in [address] [phone] Vel Vinson M.D., M.B.A. [address] [place] [phone] 01/05/2024 10:15 AM SUPERVISOR OF GUIDANCE AND TESTING Appointment Department of Radiology, [facility], in [address] [phone] Vel Vinson M.D., M.B.A. [address] [place] [phone] 01/05/2024 10:45 AM SUPERVISOR OF GUIDANCE AND TESTING Comprehensive Visit Section of Infectious Diseases in [address] [phone] Maddy Bingham P.A.-C. [address] [place] [phone] 01/05/2024 11:15 AM SUPERVISOR OF GUIDANCE AND TESTING Office Visit Department of Orthopedic Surgery in [place], [place] [address] [place] [phone] Vel Vinson M.D., M.B.A. [address] [place] [phone] 01/05/2024 2:30 PM SUPERVISOR OF GUIDANCE AND TESTING Comprehensive Visit Preoperative Evaluation Center in [place], [place] [address] [place] [phone] Vel Vinson M.D., M.B.A. [address] [place] [phone] 01/06/2024 7:25 AM SUPERVISOR OF GUIDANCE AND TESTING Hospital Encounter [facility] 02 4 AM ADMIT [address] [place] [phone] Vel Vinson M.D., M.B.A. [address] [place] [phone] 01/06/2024 7:25 AM SUPERVISOR OF GUIDANCE AND TESTING - 01/06/2024 12:11 PM [facility] Surgery [facility] MAIN OR [address] [place] [address] Vel Vinson M.D., M.B.A. [address] [place] [phone] ARTHROPLASTY REVISION FEMORAL+ACETABULAR HIP Scheduled Procedures Name Priority Associated Diagnoses Date/Ti ia ARTHROPLASTY REVISION FEMORAL+ACETABULAR HIP Infection Total Hip Arthroplasty Subsequent Right 01/06/2024 7:25 AM SUPERVISOR OF GUIDANCE AND TESTING Medical Devices Implanted Type Area Brush Sander Device Identifier Shelf Expiration Date Model / Serial / Lot Juan Francisco Bauman [facility] 40gm - [id number] Implanted:Qty: 1 on 05/23/2023 by Vel Vinson M.D., M.B.A. at [facility] Bone Cement Right: Hip [place] 6191-1 / / Cmnt Bn Smp 40gm - [id number] Implanted:Qty: 1 on 05/23/2023 by Félix Mckeon M.D. at [facility] Bone Cement Right: Hip Liliane 6191-1-001 / / Cmnt Bn Smp 40gm - [id number] Implanted:Qty: 1 on 05/23/2023 by Félix Mckeon M.D. at [facility] Bone Cement Right: Hip [place] 6191--001 / / Stnt Protege 0.014 [id number] - [id number] Implanted:Qty: 1 on 08/09/2022 by Fantasma Butt M.D. at [facility] Cardiac Stent Medtronic 02/19/2024 [id number] / / [id number] Small Frag-Screw Yasmany 3.5x16 - Amaral [id number] Implanted:Qty: 3 on 2004 Hardware e.g. pins/screws /rods Depuy Synthes Description:Device Manufactu rer - Synthes. Device Status Text - HARDWARE-7597. K-Wire Smooth S.S. Single 9 .062 - Amaral [id number] Implanted:Qty: 1 on 2004 Hardware e.g. pins/screws /rods Liliane Description:Device Manufactu rer - [place] Angel.. Device Status Text - HARDWARE-9295. Small [...] rer - Synthes. Device Status Text - HARDWARE-3. Small Frag-Screw Yasmany 3.5x20 - Amaral [id number] [...] 2 on 01/02/2004 Hardware e.g. pins/screws /rods [place] Description:Device Manufactu rer - [place] Angel.. Device Status Text - HARDWARE-9484. Small Frag-Screw Aysmany 3.5x26 - Amaral [id number] Implanted:Qty: 1 on 01/02/2004 Hardware e.g. pins/screws /rods Depuy Synthes Description:Device Manufactu rer - Synthes. Device Status Text - HARDWARE-7601. Syn Screw Schanz 5.0x250 - Amaral [id number] Implanted:Qty: 1 on 01/02/2004 Hardware e.g. pins/screws /rods Depuy Synthes Description:Device Manufactu rer - Synthes. Device Status Text - HARDWARE-03180. Guide Wire-Ball Tip 3 X 800 - Amaral [id number] Implanted:Qty: 1 on 02/03/2009 Hardware e.g. pins/screws /rods Liliane Description:Device Manufactu rer - Liliane Angel.. Device Status Text - HARDWARE- 48045. MONA Data - [id number]. Hip Stm Prs Cmnt Rt 3 200 - [id number] Implanted:Qty: 1 on 05/23/2023 by Félix Mckeon M.D. at [facility] Hip Implant Right: Hip Depuy Synthes 08/16/2032 [id number] / / [id number] Lnr Emp Aox Std +4 40x54 - [id number] Implanted:Qty: 1 on 05/23/2023 by Félix Mckeon M.D. at [facility] Hip Implant Right: Hip Depuy Synthes 02/16/2027 4722-54-440 / / [id number] Fem Hd Art +12ofst 40 - [id number] Implanted:Qty: 1 on 05/23/2023 by Vel Vinson M.D., M.B.A. at [facility] Hip Implant Right: Hip Depuy Synthes 02/16/2033 4734-40-120 / / [id number] Stnt [place] 518 8x80 - [id number] Implanted:Qty: 1 on 05/24/2023 by Almaz Olea M.D. at [facility] Vascular Stent [facility] 02/24/2026 [id number] / / [id number] Explanted Type Area Brush Sander Device Identifier Shelf Expiration Date Model / Serial / Lot Screw-Hgpii S-Tap 6.5 X 15mm - Amaral [id number] Implanted:Qty: 1 on 02/03/2009 Explanted:Qty: 1 on 05/23/2023 by Vel Vinson M.D., M.B.A. at [facility] Hardware e.g. pins/screws /rods Nori Biomet Description:Device Manufactu rer - Nori. Device Status Text - HARDWARE-56044. Small Frag-Screw Yasmany 3.5x12 - Amaral [id number] Implanted:Qty: 1 on 01/02/2004 Explanted:Qty: 1 on 05/23/2023 by Vel Vinson M.D., M.B.A. at [facility] Hardware e.g. pins/screws /rods Depuy Synthes Description:Device Manufactu rer - Synthes. Device Status Text - HARDWARE-7595. Small Frag-Screw Yasmany 3.5x16 - Amaral [id number] Implanted:Qty: 2 on 01/02/2004 Explanted:Qty: 2 on 05/23/2023 by Vel Vinson M.D., M.B.A. at [facility] Hardware e.g. pins/screws /rods Depuy Synthes Description:Device Manufactu rer - Synthes. Device Status Text - HARDWARE-7597. Pelvic Re-Plate Cvd 3.5x 6ho - Amaral [id number] Implanted:Qty: 1 on 01/02/2004 Explanted:Qty: 1 on 05/23/2023 by Félix Mckeon M.D. at [facility] Hardware e.g. pins/screws /rods Depuy Synthes Description:Device Manufactu rer - Synthes. Device Status Text - HARDWARE-7366. Right Hip Screw-Hgpii S-Tap 6.5 X 30mm - Amaral [id number] Implanted:Qty: 2 on 02/03/2009 Explanted:Qty: 2 on 05/23/2023 by Vel Vinson M.D., M.B.A. at [facility] Hardware e.g. pins/screws /rods Nori [employer]omet Description:Device Manufactu rer - Nori. Device Status Text - HARDWARE-74979. Screw-Hgpii S-Tap 6.5 X 35mm - Amaral [id number] Implanted:Qty: 1 on 02/03/2009 Explanted:Qty: 1 on 05/23/2023 by Vel Vinson M.D., M.B.A. at [facility] Hardware e.g. pins/screws /rods Nori [employer]omet Description:Device Manufactu rer - Nori. Device Status Text - HARDWARE-29176. 6.5 Saniya Screw-16mm Thread 65 - Amaral [id number] Implanted:Qty: 1 on 01/02/2004 Explanted:Qty: 1 on 05/23/2023 by Vel Vinson M.D., M.B.A. at [facility] Hardware e.g. pins/screws /rods Depuy Synthes Description:Device Manufactu rer - Synthes. Device Status Text - HARDWARE-70486. Implex-Shell Hedro 54mm - Amaral [id number] Implanted:Qty: 1 on 02/03/2009 Explanted:Qty: 1 on 05/23/2023 by Vel Vinson M.D., M.B.A. at [facility] Hip Implant Other/Legacy - See Implant Description Nori Biomet Description:Device Manufactu rer - Nori. Body Location - Other. Right. Device Status Text - HIP IMP-132492. [place]-Stem [place] 8 Hi - Amaral [id number] Implanted:Qty: 1 on 02/03/2009 Explanted:Qty: 1 on 05/23/2023 by Vel Vinson M.D., M.B.A. at [facility] Hip Implant Other/Legacy - See Implant Description [employer] Description:Device Manufactu rer - [employer]. Body Location - Other. Right. Device Status Text - HIP IMP-037827. Nori Liner 0 Degree 32 X 54m - Amaral [id number] Implanted:Qty: 1 on 02/03/2009 Explanted:Qty: 1 on 05/23/2023 by Vel Vinson M.D., M.B.A. at [facility] Hip Implant Other/Legacy - See Implant Description Nori Biomet Description:Device Manufactu rer - Nori. Body Location - Other. Right. Device Status Text - HIP IMP-[id number]. Dep. Head Prodigy 32 + 1.0 - Amaral [id number] Implanted:Qty: 1 on 02/03/2009 Explanted:Qty: 1 on 05/23/2023 by Vel Vinson M.D., M.B.A. at [facility] Hip Implant Other/Legacy - See Implant Description [employer] Description:Device Manufactu rer - J & J Ortho. Body Location - Other. Right. Device Status Text - HIP IMP-[id number]. Procedures Procedure Name Priority Date/Time Associated Diagnosis [...] ALBUMIN, RANDOM, U Routine 03/10/2023 11:30 AM SUPERVISOR OF GUIDANCE AND TESTING Diabetes Mellitus Type 2 Ulcer Foot Hyperglycemic (HCC) from Last 3 Months or Most Recently Relevant to Health Maintenance Results * (ABNORMAL) Hemoglobin (12/03/2023 8:23 AM CDT) Only the most recent of2 resultswithin the time period is included. Hemoglobin 9.9(L) 13.2 - 16.6 g/dL 12/03/2023 9:37 AM CDT DTL Blood (Blood, Venous) 12/03/2023 8:23 AM CDT 12/03/2023 9:14 AM CDT us Yola Triana M.D. LAB BLOOD ADD-ON Cata l Result [facility] [address] [place] [address], [facility] [address] [place] [address] * Glucose, POCT (12/02/2023 9:09 PM CDT) [...] LAB POCT ORDERABLES-MANUAL Cata l Result POC [facility] [address] [place] [address], [facility] PCLX [facility] POC [address] [place] [address] * Surgical Pathology (12/02/2023 11:55 AM CDT) [...] reagent. Its performance characteristics were determined by [facility] in a manner consistent with CLIA requirements. [...] LAB SURG PATH ORDERABLES F inal Result [facility] [address] [place] [address], [facility] DTL [address] [place] [address] * Colonoscopy (12/02/2023 11:10 AM CDT) 12/02/2023 11:1 0 AM CDT Impressions [facility] - 12/02/2023 12:40 PM CDT Post-op Diagnoses: ? - Preparation of the colon was inadequate. ? - The examined portion of the ileum was normal. NO evidence of recent GI ? bleeding. ? - A single (solitary) ulcer at the splenic flexure. Biopsied. Tattooed. ? - Non-bleeding external and internal hemorrhoids. Narrative [facility] - 12/02/2023 12:40 PM CDT William 6 [...] bowel preparation was evaluated using the BBPS ([place] Bowel ? Preparation Scale) with scores of: [...] Dsouza M.D. GI PROCEDURE ORDERABLES Final Result Performing Organization Address [facility] de Phone Number [facility] NA * Colon, Splenic flexure Colonoscopy-Gastroenterology Image Exam (12/02/2023 11:10 AM CDT) 12/02/2023 11:1 0 AM CDT Narrative [facility] - 12/02/2023 12:49 PM CDT This order has been created and auto-finalized to support the import of images acquired without order. The clinical documentation to support these images can be found on the encounter that produced images. us Provider Not In System IMG NON RAD IMAGING PROCE DUR Final Result Performing Organization Address [facility]/State/ZIP Co de Phone Number [facility] NA * (ABNORMAL) CBC without Differential (11/30/2023 [...] Dsouza M.D. LAB BLOOD ADD-ON Final Result [facility] [address] [place] [address], [facility] [address] [place] [address] * Basic Metabolic Panel (11/30/2023 6:54 AM [...] Dsouza M.D. LAB BLOOD ADD-ON Final Result [facility] [place] [address], [facility] [place] [address] * (ABNORMAL) Morphology Eval (special smear) (11/29/2023 [...] count. Interpretation See Comment 10:31 AM CDT [facility] Comment:Peripheral blood sme ar reviewed: no diagnostic abnormalities are seen. Reviewed by: Rayne 11/29/2023 10:31 AM CDT [facility] Blood (Blood, Venous) 11/29/2023 7:49 AM CDT 11/29/2023 8:18 AM CDT Zahira Shaw APRN, C.N.P., D.N.P. LAB BLOOD ADD-ON Final Result Performing Organization Address [facility] Co de Phone Number [phone] [place] [address] * (ABNORMAL) Iron and Total Iron-Binding Capacity (11/29/2023 7:49 AM CDT) [facility] Iron 60 50 - 150 mcg/dL 11/29/2023 8:52 AM CDT DTL Total Iron Binding Capacity 241(L) 250 - 400 mcg/dL 11/29/2023 8:52 AM CDT DTL Percent Saturation 25 14 - 50 % 11/29/2023 8:52 AM CDT DTL Blood (Blood, Venous) 11/29/2023 7:49 AM CDT 11/29/2023 8:33 AM CDT Zahira Shaw APRN, C.N.P., D.N.P. LAB BLOOD ADD-ON Final Result Performing Organization Address [facility] Co de Phone Number [phone] [place] [address] * (ABNORMAL) CBC with Differential, Blood (11/29/2023 [...] C.N.P., D.N.P. LAB BLOOD ADD-ON Final Result [facility] [address] [place], [place] [address] [address] [place] [address] [facility] [address] [place] [address] * Folate (11/29/2023 7:49 AM CDT) Pathologist [facility] Folate, S >20.0 >=4.0 mcg/L 12/01/2023 8: 08 AM CDT DT Blood (Blood, Venous) 11/29/2023 7:49 AM CDT 11/29/2023 8:33 AM CDT Zahira Shaw APRN, C.N.P., D.N.P. LAB BLOOD ADD-ON Final Result Performing Organization Address [facility]/ZIP Co de Phone Number [facility] [address] [place], [place] [phone] [place] [address] 200 [place] [address] * Vitamin B12 Assay (11/29/2023 7:49 AM CDT) [facility] Vitamin B12 Assay, S [phone] [...] BLOOD ADD-ON Final Result Performing Organization Address City/[facility]/ZIP Co de Phone Number [facility] [address] [place], [place] [address] DTL [facility] [address] * CT Abdomen Pelvis without and with [...] D.N.P., M.S.N. LAB BLOOD ADD-ON Final Result [facility] [address] [place] [address], [facility] DTL [facility] [address] [place] [address] * Type and Screen (with Reflex Antibody ID) (11/28/2023 3:31 PM CDT) ABORh O Pos Not applicable 11/28/2023 4:02 PM CDT STRM Antibody Screen Negative Negative 11/28/2023 4:19 PM CDT STRM Type & Screen Expiration 12/01/2023 23:59 11/28/2023 4:02 PM CDT STRM Testing Location [place] DEFAULT 11/28/2023 3:44 PM CDT STRM Blood (Blood, Venous) 11/28/2023 3:31 PM CDT 11/28/2023 3:44 PM CDT Jonna Kwok M.D., J.D. LAB BLOOD BANK TEST O RDERABLES Final Result Performing Organization Address City/[facility]/ZIP Co de Phone Number [facility] [address] [place] [address], [facility] STRM [facility] [address] [place] [address] * Lactate (11/28/2023 3:31 PM CDT) Pathologist [facility] Lactate, P 1.2 0.5 - 2.2 mmol/L 11/28/2023 3:59 PM CDT STMA Blood (Blood, Venous) 11/28/2023 3:31 PM CDT 11/28/2023 3:44 PM CDT Jonna Kwok M.D., J.D. LAB BLOOD NON ADD-ON Final Result [facility] [address] [place] [address], [facility] STMA [facility] [address] [place] [address] * Ferritin (11/28/2023 3:20 PM CDT) Pathologist [facility] Ferritin, S 302 31 - 409 mcg/L 11/29/2023 4:22 AM CDT DTL Blood (Blood, Venous) 11/28/2023 3:20 PM CDT 11/29/2023 3:49 AM CDT Zahira Shaw APRN, C.N.P., D.N.P. LAB BLOOD ADD-ON Final Result Performing Organization Address City/[facility]/ZIP Co de Phone Number [facility] [address] [place] [address], [facility] DTL [facility] [address] [place] [address] * ECG 12 Lead (11/28/2023 3:18 PM CDT) Ventricular Rate ECG/Min 58 BPM MUSE NV Interval 208 ms MUSE QRSD Interval 94 ms MUSE QT Interval 460 ms MUSE QTC Interval 451 ms MUSE R Holstein 43 degrees MUSE T Wave Holstein -22 degrees MUSE 11/28/2023 3:18 PM CDT 11/28/2023 3:27 PM CDT Impressions MUSE - 11/28/2023 3:27 PM CDT Sinus bradycardia with 1st degree A-V block Low voltage QRS Low anterior forces Nonspecific T wave abnormality When compared with ECG of 24-May-2023 12:12, NV interval has increased T wave changes QT has shortened Reviewed by MARTHA Shah Narrative Procedure Note Prudencio Painting Jr., M.D. - 11/28/2023 IMPRESSION: Sinus bradycardia with 1st degree A-V block Low voltage QRS Low anterior forces Nonspecific T wave abnormality When compared with ECG of 24-May-2023 12:12, NV interval has increased T wave changes QT [...] 5:59 AM CDT 05/24/2023 6:27 AM CDT us Morgan Duran M.D. LAB BLOOD ADD-ON Final R esult [facility] [address] [place] [address], [place] [facility] [address] [place] [address] * Albumin, Random, Urine (03/10/2023 11:30 AM SUPERVISOR OF GUIDANCE AND TESTING) Microalbumin <12.0 mg/L 03/10/2023 11:54 AM SUPERVISOR OF GUIDANCE AND TESTING [facility] Comment:If clinically indica faviola, contact the lab for additional testing. Creatinine 112 mg/dL 03/10/2023 11:54 AM SUPERVISOR OF GUIDANCE AND TESTING [facility] Albumin/Creatinine Ratio <11 <17 mg/g 03/10/2023 11:54 AM SUPERVISOR OF GUIDANCE AND TESTING [facility] Comment: This ratio may not correspond with the reference range because one or both of the values used to calculate the ratio was above or below the quantification limits. Urine (Urine, Midstream) 03/10/2023 11:30 AM SUPERVISOR OF GUIDANCE AND TESTING 03/10/2023 11:30 AM SUPERVISOR OF GUIDANCE AND TESTING us Doug Lima M.D. LAB URINE ORDERABLES Final R esult [facility] [address] [place] [address], [facility] RDWG [facility] [place] [address] [place] [address] from Last 3 Months or Most Recently Relevant to Health Maintenance Insurance [facility] [place] [address] [place] [employer] Advance Directives For more information, please contact: [phone] * Full Code (Latest Code Status on [...] Due to: Patient not available Care Teams Fundraising Manager Relationship Specialty Start Date End Date Elsewhere, Pcp PCP - General Internal Medicine 10/03/23
--- OUTSIDE RECORDS SUMMARY | 2023-12-29 13:06 | XMS_ITS | Encounter Summary ---
Author Organization [facility] Address [address] [place] [id number] Care Team Providers Care Cannon Pinion Adjuster Name Role Phone Elsewhere, Pcp Primary Care Provider Unavailabl e Reason for Referral * Outpatient (Routine) - Authorized Specialty Diagnoses / Procedures Referred By Tammi basilio Referred To Contact Diagnoses Stroke (HCC) Maurisio Peoples M.D. [address] [place] [phone] Phone: tel: fax: Referral ID Status Reason Start Date Expiration Date Visits Requested Visits Authorized [id number] Authorized Patient Preference 4 06/11/2025 1 1 Encounter Details Date Type Department Care Team (Late st Contact Info) Description 12/11/2023 Orders Only Department of Orthopedic Surgery in [place], [place] [address] [place] [phone] Maurisio Peoples M.D. [address] [place] [phone] Stroke (HCC) (Primary Dx) Social History Tobacco Use Types [...] your living situation today? I have a [facility] place to live 11/29/2023 Sex and Gender Information Value Date Recorded Sex Assigned at Male 07/26/2022 1:30 PM CDT Legal Sex Male 6:41 AM GARDENER FLORIST Gender Identity Male 07/26/2022 1:32 PM CDT Sexual Orientation Straight 07/26/2022 1: 32 PM CDT documented as of this encounter Plan of Treatment Upcoming Encounters Date Type Department Care Team (Latest Contact Info) Description 01/02/2024 11:30 AM GARDENER FLORIST Clinical Communication Virtual Review in [place], [place] 200 [place] [address] 01/05/2024 9:20 AM GARDENER FLORIST Lab Department of Infusion Therapy in [place], [place] [address] [place] [phone] Vel Vinson M.D., M.B.A. [address] [place] [phone] 01/05/2024 10:15 AM GARDENER FLORIST Appointment Department of Radiology, [facility], in [place], [place] [address] [place] [phone] Vel Vinson M.D., M.B.A. [address] [place] [phone] 01/05/2024 10:45 AM GARDENER FLORIST Comprehensive Visit Section of Infectious Diseases in [address] [phone] Maddy Bingham P.A.-C. [address] [place] [phone] 01/05/2024 11:15 AM GARDENER FLORIST Office Visit Department of Orthopedic Surgery in [place], [place] [address] [place] [phone] Vel Vinson M.D., M.B.A. [address] [place] [phone] 01/05/2024 2:30 PM GARDENER FLORIST Comprehensive Visit Preoperative Evaluation Center in [place], [place] [address] [place] [phone] Vel Vinson M.D., M.B.A. [address] [place] [phone] 01/06/2024 7:25 AM GARDENER FLORIST Hospital Encounter [facility] 02 4 AM ADMIT [address] [place] [phone] Vel Vinson M.D., M.B.A. [address] [place] [phone] 01/06/2024 7:25 AM GARDENER FLORIST - 01/06/2024 12:11 PM GARDENER FLORIST Surgery RST RO MAIN OR [address] [place] [address] Vel Vinson M.D., M.B.A. [address] [place] [phone] ARTHROPLASTY REVISION FEMORAL+ACETABULAR HIP Scheduled Procedures Name Priority Associated Diagnoses Date/Ti me ARTHROPLASTY REVISION FEMORAL+ACETABULAR HIP Infection Total Hip Arthroplasty Subsequent Right 01/06/2024 7:25 AM GARDENER FLORIST documented as of this encounter Visit Diagnoses Diagnosis Infection Total Hip Arthroplasty Subsequent Right- Primary Stroke (HCC)- Primary Infection Total Hip Arthroplasty Subsequent Right documented in this encounter Care Teams Cannon Pinion Adjuster Relationship Specialty Start Date End Date Elsewhere, Pcp PCP - General Internal Medicine 10/03/23 documented as of this encounter
--- OUTSIDE RECORDS SUMMARY | 2023-12-29 13:06 | XMS_ITS | Encounter Summary ---
Author Organization [facility] Address 200 [place] [address] Care Team Providers Care Supervisor Area Name Role Phone Elsewhere, Pcp Primary Care Provider Unavailabl e Reason for Visit * Outpatient (Routine) - Closed Specialty Diagnoses / Procedures Referred By Tammi basilio Referred To Contact Vascular Medicine Diagnoses Infection Total Hip Arthroplasty Subsequent Right Procedures Vascular Medicine - Thrombophilia periprocedural eConsult Vel Vinson M.D., M.B.A. 200 [place] [address] Phone: tel: fax: [facility] Referral ID Status Reason Start Date Expiration Date Visits Re quested Visits Authorized [id number] Closed 09/02/2023 09/01/2024 1 1 Encounter Details Date Type Department Care Team (Latest Contact Info) Description 12/08/2023 8:00 AM CDT Internal E-Consult Department of Vascular Medicine in [place], [place] 200 [place] [phone] Ann Montoya APRN, C.N.P., M.S. 200 [place] [phone] Infection Total Hip Arthroplasty Subsequent Right Social History Tobacco Use Types Packs/Day Years Used Date Smoking Tobacco: Never Passive Smoke Exposure: Never Smokeless Tobacco: Never Alcohol Use Standard Drinks/Week Comments Never 2 (1 standard drink = 0.6 oz pur e alcohol) [facility] Utilities Answer Date Recorded In the past 12 months has th e electric, gas, oil, or water [employer] threatened to shut off services in your [...] your living situation today? I have a [facility] place to live 11/29/2023 Sex and Gender Information Value Date Recorded Sex Assigned at Male 07/26/2022 1:30 PM CDT Legal Sex Male 6:41 AM GOLF COURSE EQUIPMENT OPERATOR Gender Identity Male 07/26/2022 1:32 PM CDT Sexual Orientation Straight 07/26/2022 1: 32 PM CDT documented as of this encounter Consult Notes * Ann Montoya APRN, C.N.P., M.S. - 12/08/2023 8:00 AM CDT VASCULAR MEDICINE PERIPROCEDURAL E-CONSULT NOTE Referring Provider: Vel Vinson M.D., M.B.A. Reason for Consult: xarelto management SUBJECTIVE The patient has been neither seen nor examined; this consultation is based entirely upon information available in the [facility] electronic medical record. Clinical question to be answered: xarelto management Requesting pre-procedural recommendations for anticoagulation after surgery Chief Complaint / Reason for Visit A consult was placed regarding Estevan Lester, a 58 y.o. male for periprocedural recommendations of anticoagulation management. 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 OBJECTIVE The patient has been neither seen nor examined. DIAGNOSTICS I have reviewed pertinent laboratory and imaging studies. Labs and images studies of note include: Hemoglobin 9.9 platelet 159 creatinine 1 EGFR 87 ASSESSMENT / PLAN #1 Infection Total Hip Arthroplasty Subsequent Right Mr. Lester is a 58 y.o. male on Xarelto 10 mg daily for DVT prophylaxis due to immobility. The patient is scheduled for right arthroplasty revision femoral + acetabular hip on 01/06/2024. In preparation for the procedure he should follow the recommendations provided below. It is the responsibility of the referring provider or their team to communicate and implement the outlined plan since there was no interaction with the patient from this econsult. RECOMMENDATIONS Recommendations: Before the procedure: 1. Stop Rivaroxaban prior to the procedure (3 full days off Anticoagulation). After the procedure: 1. Start DVT prophylaxis enoxaparin as soon as it is safe from the surgical perspective, and continue until rivaroxaban can be restarted. 2. Restart the direct oral anticoagulant 48-72 hours after the procedure, when clinically safe. Note that the oral anticoagulants have a short onset of action. The patient was not personally interviewed or examined. The history and examination findings are based on the clinical documentation provided and/or discussed with a physician or provider who had personally interviewed and examined the patient. Time spent: Five minutes or more of medical review. Ask [place] Expert periprocedural anticoagulation calculator [email or web address]/[email or web address] documented in this encounter Plan of Treatment Upcoming Encounters Date Type Department Care Team (Latest Contact Info) Description 01/02/2024 11:30 AM GOLF COURSE EQUIPMENT OPERATOR Clinical Communication Virtual Review in [address] [phone] 01/05/2024 9:20 AM GOLF COURSE EQUIPMENT OPERATOR Lab Department of Infusion Therapy in [address] [phone] Vel Vinson M.D., M.B.A. [address] [place] [phone] 01/05/2024 10:15 AM GOLF COURSE EQUIPMENT OPERATOR Appointment Department of Radiology, [facility], in [address] [phone] Vel Vinson M.D., M.B.A. [address] [place] [phone] 01/05/2024 10:45 AM GOLF COURSE EQUIPMENT OPERATOR Comprehensive Visit Section of Infectious Diseases in [place], [place] [address] [place] [phone] Maddy Bingham P.A.-C. [address] [place] [phone] 01/05/2024 11:15 AM GOLF COURSE EQUIPMENT OPERATOR Office Visit Department of Orthopedic Surgery in [place], [place] [address] [place] [phone] Vel Vinson M.D., M.B.A. [address] [place] [phone] 01/05/2024 2:30 PM GOLF COURSE EQUIPMENT OPERATOR Comprehensive Visit Preoperative Evaluation Center in [place], [place] [address] [place] [phone] Vel Vinson M.D., M.B.A. [address] [place] [phone] 01/06/2024 7:25 AM GOLF COURSE EQUIPMENT OPERATOR Hospital Encounter [facility] 02 4 AM ADMIT [address] [place] [phone] Vel Vinson M.D., M.B.A. [address] [place] [phone] 01/06/2024 7:25 AM GOLF COURSE EQUIPMENT OPERATOR - 01/06/2024 12:11 PM GOLF COURSE EQUIPMENT OPERATOR Surgery RST RO MAIN OR [address] [place] [address] Vel Vinson M.D., M.B.A. 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
--- OUTSIDE RECORDS SUMMARY | 2023-12-29 13:06 | XMS_ITS | Encounter Summary ---
Author Organization [facility] Address [address] [place] [address] Care Team Providers Care Airport Traffic Controller Name Role Phone Elsewhere, Pcp Primary Care Provider Unavailabl e Encounter Details Date Type Department Care Team (Late st Contact Info) Description 12/17/2023 Clinical Communication Department of Hospital Internal Medicine in [place], [place] [address] [place] [phone] Lul Galeas M.D. [address] [place] [phone] Social History Tobacco Use Types Packs/Day Years Used Date Smoking Tobacco: Never Passive Smoke Exposure: Never Smokeless Tobacco: Never Alcohol Use Standard Drinks/Week Comments Never 2 (1 standard drink = 0.6 oz pur e alcohol) [facility] Utilities Answer Date Recorded In the past 12 months has [facility] [employer], gas, oil, or water [employer] threatened to shut off services in your [...] your living situation today? I have a [facility] place to live 11/29/2023 Sex and Gender Information Value Date Recorded Sex Assigned at Male 07/26/2022 1:30 PM CDT Legal Sex Male 6:41 AM SPIRAL WINDER Gender Identity Male 07/26/2022 1:32 PM CDT Sexual Orientation Straight 07/26/2022 1: 32 PM CDT documented as of this encounter Plan of Treatment Upcoming Encounters Date Type Department Care Team (Latest Contact Info) Description 01/02/2024 11:30 AM SPIRAL WINDER Clinical Communication Virtual Review in [place], [place] 200 [place] [address] 01/05/2024 9:20 AM SPIRAL WINDER Lab Department of Infusion Therapy in [place], [place] [address] [place] [phone] Vel Vinson M.D., M.B.A. [address] [place] [phone] 01/05/2024 10:15 AM SPIRAL WINDER Appointment Department of Radiology, [facility], in [place], [place] [address] [place] [phone] Vel Vinson M.D., M.B.A. [address] [place] [phone] 01/05/2024 10:45 AM SPIRAL WINDER Comprehensive Visit Section of Infectious Diseases in [place], [place] [address] [place] [phone] Maddy Bingham P.A.-C. [address] [place] [phone] 01/05/2024 11:15 AM SPIRAL WINDER Office Visit Department of Orthopedic Surgery in [place], [place] [address] [place] [phone] Vel Vinson M.D., M.B.A. [address] [place] [phone] 01/05/2024 2:30 PM SPIRAL WINDER Comprehensive Visit Preoperative Evaluation Center in [place], [place] [address] [place] [phone] Vel Vinson M.D., M.B.A. [address] [place] [phone] 01/06/2024 7:25 AM SPIRAL WINDER Hospital Encounter [facility] 02 4 AM ADMIT [address] [place] [phone] Vel Vinson M.D., M.B.A. [address] [place] [phone] 01/06/2024 7:25 AM SPIRAL WINDER - 01/06/2024 12:11 PM SPIRAL WINDER Surgery [facility] MAIN OR [address] [place] [address] Vel Vinson M.D., M.B.A. [address] [place] [address] ARTHROPLASTY REVISION FEMORAL+ACETABULAR HIP Scheduled Procedures Name Priority Associated Diagnoses Date/Ti me ARTHROPLASTY REVISION FEMORAL+ACETABULAR HIP Infection Total Hip Arthroplasty Subsequent Right 01/06/2024 7:25 AM SPIRAL WINDER documented as of this encounter Visit Diagnoses Not on filedocumented in this encounter Care Teams Airport Traffic Controller Relationship Specialty Start Date End Date Elsewhere, Pcp PCP - General Internal Medicine 10/03/23 documented as of this encounter
--- OUTSIDE RECORDS SUMMARY | 2023-12-29 13:06 | XMS_ITS | Encounter Summary ---
Author Organization [facility] Address [address] [place] [address] Care Team Providers Care Pharmacy Technician Program Director Name Role Phone Elsewhere, Pcp Primary Care Provider Unavailabl e Reason for Visit * Reason Onset Date Comments e-Consult Follow-Up 12/18/2023 Completed post ED visit 11/27 Encounter Details Date Type Department Care Team (Latest Contact Info) Description 12/18/2023 Clinical Communication Division of Gastroenterology in [place], [place] [address] [place] [address] Ede Crespo M.D. [address] [place] [phone] e-Consult Follow-Up (Completed 12/07 post ED visit 11/27) Social History Tobacco Use Types Packs/Day Years Used Date Smoking Tobacco: Never Passive Smoke Exposure: Never Smokeless Tobacco: Never Alcohol Use Standard Drinks/Week Comments Never 2 (1 standard drink = 0.6 oz pur e alcohol) [facility] Utilities Answer Date Recorded In the past 12 months has e [employer], gas, oil, or water [employer] threatened to shut off services in your [...] your living situation today? I have a [facility] place to live 11/29/2023 Sex and Gender Information Value Date Recorded Sex Assigned at Male 07/26/2022 1:30 PM CDT Legal Sex Male 6:41 AM CAMPUS SUPERVISOR Gender Identity Male 07/26/2022 1:32 PM CDT Sexual Orientation Straight 07/26/2022 1: 32 PM CDT documented as of this encounter Plan of Treatment Upcoming Encounters Date Type Department Care Team (Latest Contact Info) Description 01/02/2024 11:30 AM CAMPUS SUPERVISOR Clinical Communication Virtual Review in [place], [place] 200 [place] [address] 01/05/2024 9:20 AM CAMPUS SUPERVISOR Lab Department of Infusion Therapy in [place], [place] [address] [place] [phone] Vel Vinson M.D., M.B.A. [address] [place] [phone] 01/05/2024 10:15 AM CAMPUS SUPERVISOR Appointment Department of Radiology, [facility], in [place], [place] [address] [place] [phone] Vel Vinson M.D., M.B.A. [address] [place] [phone] 01/05/2024 10:45 AM CAMPUS SUPERVISOR Comprehensive Visit Section of Infectious Diseases in [address] [phone] Maddy Bingham P.A.-C. [address] [place] [phone] 01/05/2024 11:15 AM CAMPUS SUPERVISOR Office Visit Department of Orthopedic Surgery in [address] [phone] Vel Vinson M.D., M.B.A. [address] [place] [phone] 01/05/2024 2:30 PM CAMPUS SUPERVISOR Comprehensive Visit Preoperative Evaluation Center in [place], [place] [address] [place] [phone] Vel Vinson M.D., M.B.A. [address] [place] [phone] 01/06/2024 7:25 AM CAMPUS SUPERVISOR Hospital Encounter [facility] 02 4 AM ADMIT [address] [place] [address] Vel Vinson M.D., M.B.A. [address] [place] [phone] 01/06/2024 7:25 AM CAMPUS SUPERVISOR - 01/06/2024 12:11 PM CAMPUS SUPERVISOR Surgery [facility] MAIN OR [address] [place] [address] Vel Vinson M.D., M.B.A. [address] [place] [phone] ARTHROPLASTY REVISION FEMORAL+ACETABULAR HIP Scheduled Procedures Name Priority Associated Diagnoses Date/Ti me ARTHROPLASTY REVISION FEMORAL+ACETABULAR HIP Infection Total Hip Arthroplasty Subsequent Right 01/06/2024 7:25 AM CAMPUS SUPERVISOR documented as of this encounter Visit Diagnoses Not on filedocumented in this encounter Care Teams Pharmacy Technician Program Director Relationship Specialty Start Date End Date Elsewhere, Pcp PCP - General Internal Medicine 10/03/23 documented as of this encounter
--- OUTSIDE RECORDS SUMMARY | 2023-12-29 13:06 | XMS_ITS | Encounter Summary ---
Author Organization [facility] Address [address] [place] [address] Care Team Providers Care Application Packager Name Role Phone Elsewhere, Pcp Primary Care Provider Unavailabl e Reason for Visit * Outpatient (Routine) - Closed Specialty Diagnoses / Procedures Referred By Contact Referred To Contact Gastroenterology and Hepatology Diagnoses Hemorrhage Gastrointestinal Procedures Gastroenterology and Hepatology - Gastroenterology eConsult Lul Galeas M.D. [address] [place] [address] Phone: tel:[phone] fax:[phone] [facility] Referral ID Status Reason Start Date Expiration Date Visits Re quested Visits Authorized [id number] Closed 12/02/2023 12/01/2024 1 1 Encounter Details Date Type Department Care Team (Latest Contact Info) Description 12/08/2023 1:00 PM CDT Internal E-Consult Division of Gastroenterology in [place], [place] 200 [place] [phone] Lul Galeas M.D. [address] [place] [phone] Ede Crespo M.D. [address] [place] [address] [phone] Ulcer Colon (Primary Dx); Hemorrhage Gastrointestinal Social History Tobacco Use Types Packs/Day Years Used Date Smoking Tobacco: Never Passive Smoke Exposure: Never Smokeless Tobacco: Never Alcohol Use Standard Drinks/Week Comments Never 2 (1 standard drink = 0.6 oz pur e alcohol) [facility] Utilities Answer Date Recorded In the [...] PM CDT Legal Sex Male 6:41 AM BIOMETRICIAN Gender Identity Male 07/26/2022 1:32 PM CDT Sexual Orientation Straight 07/26/2022 1: 32 PM CDT documented as of this encounter Consult Notes * Ede Crespo M.D. - 12/12/2023 1:00 PM CDT SUBJECTIVE Ordering Physician: Lul Galeas M.D. The patient was not personally interviewed or examined. The history and examination findings are based on the clinical documentation provided and/or discussed with a physician or provider who had personally interviewed and examined the patient. Time spent: Five minutes or more of medical review. Chief Complaint / Reason for Visit Follow up colonoscopy 12/01 History of Present Illness Mr. Lester is a 58 year old gentleman with CVA with right sided residual deficits, hypertension, hyperlipidemia, prior hip arthroplasty with infection, Oralia-Corado tear recently and recent admission for blood per rectum for whom we are being asked to complete a GI E-consultation. In October, he was admitted due to hematemesis and EGD showed a 6 mm Oralia- Corado tear in the esophagus with no other abnormalities. Twice daily PPI and Carafate were used for treatment and his anticoagulation was restarted while admitted once he stabilized. On 11/27, he was brought to the [facility] ED due to development of hematochezia and was admitted. Colonoscopy from 12/01 showed a 2 cm ulcer without active bleeding of stigmata of recent bleeding around the splenic flexure which was biopsied (pending), normal terminal ileum, non- bleeding hemorrhoids, and overall no signs of bleeding on the exam but with poor prep (BBPS of 3). Biopsies from the ulcer were take and showed active colitis withulceration and reactive bizarre stromal cells but with no dysplasia or malignancy. Hemoglobin appears to have dropped from mild anemia (12 range) and 9-10 range around the time of the Oralia-Corado tear and remained between 9-11 since that time. ASSESSMENT / PLAN #1 Hematochezia #2 Large splenic flexure ulcer #3 Prior Oralia-Corado tear #4 Anemia #5 Poor prep on recent colonoscopy With there being poor prep on the colonoscopy that was done during his recent admission, along withfinding of large ulceration in the splenic flexure, a repeat colonoscopy in the near future with extended prep is appropriate (within 3 months is recommended). The extended prep should include one full week of twice daily MiraLAX, on full week of low fiber diet, and large volume prep such as Golytely. The ulcer does not appear consistent with being related to inflammatory bowel disease, but somewhat difficult to tell in the setting that much of the colon was not well seen. It is possible that this may represent ischemic sequelae, but somewhat unclear. I will reach out to pathology to clarify if there is anymore details regarding the bizarre stromal cells that are noted on the biopsies and if this would warrant other evaluation. Ultimately, the ulcer may have been a bleeding source (albeitit did not have stigmata on exam), and the hemorrhoids seen on the colonoscopy may also represent ableeding source. Ther could be consideration for CT enterography to assess the small bowel for potential bleeding sources or underlying inflammation to further ensure there is not signs of inflammatory bowel disease. Electronically signed by: Hernando Crespo M.D. Pager: [phone] 12/08/2023 5:55 PM documented in this encounter Plan of Treatment Upcoming Encounters Date Type Department Care Team (Latest Contact Info) Description 01/02/2024 11:30 AM BIOMETRICIAN Clinical Communication Virtual Review in [address] [phone] 01/05/2024 9:20 AM BIOMETRICIAN Lab Department of Infusion Therapy in [address] [phone] Vel Vinson M.D., M.B.A. [address] [place] [phone] 01/05/2024 10:15 AM BIOMETRICIAN Appointment Department of Radiology, [facility], in [address] [phone] Vel Vinson M.D., M.B.A. [address] [place] [phone] 01/05/2024 10:45 AM BIOMETRICIAN Comprehensive Visit Section of Infectious Diseases in [place], [place] [address] [place] [phone] Maddy Bingham P.A.-C. [address] [place] [phone] 01/05/2024 11:15 AM BIOMETRICIAN Office Visit Department of Orthopedic Surgery in [place], [place] [address] [place] [phone] Vel Vinson M.D., M.B.A. [address] [place] [address] [phone] 01/05/2024 2:30 PM BIOMETRICIAN Comprehensive Visit Preoperative Evaluation Center in [place], [place] [address] [place] [address] [phone] Vel Vinson M.D., M.B.A. [address] [place] [address] [phone] 01/06/2024 7:25 AM BIOMETRICIAN Hospital Encounter RST RO 02 4 AM ADMIT [address] [place] [phone] Vel Vinson M.D., M.B.A. [address] [place] [phone] 01/06/2024 7:25 AM BIOMETRICIAN - 01/06/2024 12:11 PM BIOMETRICIAN Surgery [facility]ST RO MAIN OR [address] [place] [phone] Vel Vinson M.D., M.B.A. [address] [place] [phone] ARTHROPLASTY REVISION FEMORAL+ACETABULAR HIP Scheduled Procedures Name Priority Associated Diagnoses Date/Ti me ARTHROPLASTY REVISION FEMORAL+ACETABULAR HIP Infection Total Hip Arthroplasty Subsequent Right 01/06/2024 7:25 AM BIOMETRICIAN documented as of this encounter Visit Diagnoses Diagnosis Infection Total Hip Arthroplasty Subsequent Right- Primary Ulcer Colon- Primary Hemorrhage Gastrointestinal Infection Total Hip Arthroplasty Subsequent Right documented in this encounter Care Teams Application Packager Relationship Specialty Start Date End Date Elsewhere, Pcp PCP - General Internal Medicine 10/03/23 documented as of this encounter
--- OUTSIDE RECORDS SUMMARY | 2023-12-29 13:06 | XMS_ITS | Encounter Summary ---
Author Organization [facility] Address [address] [place] [address] Care Team Providers Care Bakery Demonstrator Name Role Phone Elsewhere, Pcp Primary Care Provider Unavailabl e Encounter Details Date Type Department Care Team (Late st Contact Info) Description 12/18/2023 Clinical Communication Department of Orthopedic Surgery in [place], [place] [address] [place] [address] Vel Vinson M.D., M.B.A. [address] [place] [phone] Social History Tobacco Use Types Packs/Day Years Used Date Smoking Tobacco: Never Passive Smoke Exposure: Never Smokeless Tobacco: Never Alcohol Use Standard Drinks/Week Comments Never 2 (1 standard drink = 0.6 oz pur e alcohol) [facility] Utilities Answer Date Recorded In the past 12 months has [facility] [employer], gas, oil, or water [employer] threatened to shut off services in your [...] [facility] live 11/29/2023 Sex and Gender Information Value Date Recorded Sex Assigned at Male 07/26/2022 1:30 PM CDT Legal Sex Male 6:41 AM LINE SUPERVISOR Gender Identity Male 07/26/2022 1:32 PM CDT Sexual Orientation Straight 07/26/2022 1: 32 PM CDT documented as of this encounter Plan of Treatment Upcoming Encounters Date Type Department Care Team (Latest Contact Info) Description 01/02/2024 11:30 AM LINE SUPERVISOR Clinical Communication Virtual Review in [address] [phone] 01/05/2024 9:20 AM LINE SUPERVISOR Lab Department of Infusion Therapy in [place], [place] [address] [place] [phone] Vel Vinson M.D., M.B.A. [address] [place] [phone] 01/05/2024 10:15 AM LINE SUPERVISOR Appointment Department of Radiology, [facility], in [place], [place] [address] [place] [phone] Vel Vinson M.D., M.B.A. [address] [place] [phone] 01/05/2024 10:45 AM LINE SUPERVISOR Comprehensive Visit Section of Infectious Diseases in [place], [place] [address] [place] [phone] Maddy Bingham P.A.-C. [address] [place] [phone] 01/05/2024 11:15 AM LINE SUPERVISOR Office Visit Department of Orthopedic Surgery in [place], [place] [address] [place] [phone] Vel Vinson M.D., M.B.A. [address] [place] [phone] 01/05/2024 2:30 PM LINE SUPERVISOR Comprehensive Visit Preoperative Evaluation Center in [place], [place] [address] [place] [phone] Vel Vinson M.D., M.B.A. [address] [place] [phone] 01/06/2024 7:25 AM LINE SUPERVISOR Hospital Encounter [facility] 02 4 AM ADMIT [address] [place] [phone] Vel Vinson M.D., M.B.A. [address] [place] [phone] 01/06/2024 7:25 AM LINE SUPERVISOR - 01/06/2024 12:11 PM LINE SUPERVISOR Surgery [facility] MAIN OR [address] [place] [address] Vel Vinson M.D., M.B.A. [address] [place] [address] ARTHROPLASTY REVISION FEMORAL+ACETABULAR HIP Scheduled Procedures Name Priority Associated Diagnoses Date/Ti me ARTHROPLASTY REVISION FEMORAL+ACETABULAR HIP Infection Total Hip Arthroplasty Subsequent Right 01/06/2024 7:25 AM LINE SUPERVISOR documented as of this encounter Visit Diagnoses Not on filedocumented in this encounter Care Teams Bakery Demonstrator Relationship Specialty Start Date End Date Elsewhere, Pcp PCP - General Internal Medicine 10/03/23 documented as of this encounter
--- OUTSIDE RECORDS SUMMARY | 2023-12-29 13:07 | XMS_ITS | Encounter Summary ---
Author Organization [facility] Address [address] [place] [address] Care Team Providers Care Software Quality Automation Engineer Name Role Phone Elsewhere, Pcp Primary Care Provider Unavailabl e Reason for Referral * Physical Therapy (Routine) - Authorized Specialty Diagnoses / Procedures Referred By Tammi t Referred To Contact Diagnoses Infection Total Hip Arthroplasty Subsequent Right Maurisio Peoples M.D. 200 [place] [address] Phone: tel: fax: Referral ID Status Reason Start Date Expiration Date Visits Requested Visits Authorized [id number] Authorized Patient Preference 4 06/05/2025 1 1 Encounter Details Date Type Department Care Team (Late st Contact Info) Description 12/05/2023 Orders Only Department of Orthopedic Surgery in [place], [place] [address] [place] [phone] Maurisio Peoples M.D. 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 Utilities Answer Date Recorded In the past 12 months has [employer], gas, oil, or water [employer] threatened to shut off services in your [...] PM CDT Legal Sex Male 6:41 AM ELECTRICAL ASSISTANT Gender Identity Male 07/26/2022 1:32 PM CDT Sexual Orientation Straight 07/26/2022 1: 32 PM CDT documented as of this encounter Plan of Treatment Upcoming Encounters Date Type Department Care Team (Latest Contact Info) Description 01/02/2024 11:30 AM ELECTRICAL ASSISTANT Clinical Communication Virtual Review in [place], [place] 200 [place] [phone] 01/05/2024 9:20 AM ELECTRICAL ASSISTANT Lab Department of Infusion Therapy in [address] [phone] Vel Vnison M.D., M.B.A. [address] [place] [phone] 01/05/2024 10:15 AM ELECTRICAL ASSISTANT Appointment Department of Radiology, [facility], in [address] [phone] Vel Vinson M.D., M.B.A. [address] [place] [phone] 01/05/2024 10:45 AM ELECTRICAL ASSISTANT Comprehensive Visit Section of Infectious Diseases in [address] [phone] Maddy Bingham P.A.-C. [address] [place] [phone] 01/05/2024 11:15 AM ELECTRICAL ASSISTANT Office Visit Department of Orthopedic Surgery in [address] [phone] Vel Vinson M.D., M.B.A. [address] [place] [phone] 01/05/2024 2:30 PM ELECTRICAL ASSISTANT Comprehensive Visit Preoperative Evaluation Center in [place], [place] [address] [place] [address] Vel Vinson M.D., M.B.A. [address] [place] [phone] 01/06/2024 7:25 AM ELECTRICAL ASSISTANT Hospital Encounter [facility] 02 4 AM ADMIT [address] [place] [address] Vel Vinson M.D., M.B.A. [address] [place] [phone] 01/06/2024 7:25 AM ELECTRICAL ASSISTANT - 01/06/2024 12:11 PM ELECTRICAL ASSISTANT Surgery [facility] MAIN OR [address] [place] [phone] Vel Vnison M.D., M.B.A. [address] [place] [phone] ARTHROPLASTY REVISION FEMORAL+ACETABULAR HIP Scheduled Procedures Name Priority Associated Diagnoses Date/Ti me ARTHROPLASTY REVISION FEMORAL+ACETABULAR HIP Infection Total Hip Arthroplasty Subsequent Right 01/06/2024 7:25 AM ELECTRICAL ASSISTANT documented as of this encounter Visit Diagnoses Diagnosis Infection 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 Total Hip Arthroplasty Subsequent Right documented in this encounter Care Teams Software Quality Automation Engineer Relationship Specialty Start Date End Date Elsewhere, Pcp PCP - General Internal Medicine 10/03/23 documented as of this encounter
--- OUTSIDE RECORDS SUMMARY | 2023-12-29 13:07 | XMS_ITS | Encounter Summary ---
Author Organization [facility] Address [address] [place] [id number] Care Team Providers Care Conference Planning Manager Name Role Phone Elsewhere, Pcp Primary Care Provider Unavailabl e Reason for Visit * Reason Comments GI Bleeding * Auth/Cert (Routine) Specialty Diagnoses / Procedures Referred By Contac t Referred To Contact Diagnoses Anemia Hemorrhage Gastrointestinal Procedures ER Referral ID Status Reason Start Date Expiration Date Visits Re quested Visits Authorized [id number] 1 1 Encounter Details Date Type Department Care Team (Latest Contact Info) Description 11/28/2023 2:49 PM CDT - 12/03/2023 10:07 AM CDT Hospital Encounter [facility], [facility], [facility], Fourth Floor [address] [place] [phone] Paola Solis APRN, C.N.P., D.N.P., M.S.N. [address] [place] [phone] Theodore Dsouza M.D. [address] [place] [phone] Yola Triana M.D. [address] [place] [phone] Zahira Shaw APRN, C.N.P., D.N.P. [address] [place] [phone] Hemorrhage Gastrointestinal (Primary Dx); Anemia; Infection Total Hip Arthroplasty Initial Right (HCC); Stroke (HCC) Discharge Disposition: Long Term Facility Social History Tobacco Use Types Packs/Day Years Used Date Smoking Tobacco: Never Passive Smoke Exposure: Never Smokeless Tobacco: Never Alcohol Use Standard Drinks/Week Comments Never 2 (1 standard drink = 0.6 oz pur e alcohol) [facility] Utilities Answer Date Recorded In the past 12 months has e [employer] oil, or water [employer] threatened to shut off services in your [...] living situation today? 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 - 12/03/2023 7:20 AM CDT Images from the original note were not included. DISCHARGE SUMMARY BRIEF OVERVIEW Discharge Hospital: [facility] Discharge Provider: Yola Triana M.D. Discharge Provider Team: Hospital Internal Medicine ([facility]) - [facility] Medicine 6 ([facility]) Primary Care Providers: Elsewhere, Pcp (General) No address on file PCP Phone Number: None PCP Fax Number: None Admission Date: 11/28/2023 Discharge Date: 12/03/23 PRINCIPAL DIAGNOSIS Hemorrhage Gastrointestinal SECONDARY DIAGNOSES Principal Problem: Hemorrhage Gastrointestinal Resolved Problems: * No resolved hospital problems. * DISCHARGE DISPOSITION Long Term Facility [3] ACTIVE ISSUES REQUIRING FOLLOW UP RECOMMENDATIONS: Please ensure that Mr. Lester has normal bowel movements and avoids constipation given that he is largely immobile, and has evidence of external and internal hemorrhoids. This would be helpful inpreventing any further bleeding events. We started him on daily MiraLax for this purpose. He has responded well to this and was able to mix this to food prior to administration. Please consider discontinuation of insulin as his hemoglobin A1c is very well- controlled and could probably benefit from an oral medications like metformin. OUTPATIENT FOLLOW UP Scheduled Appointments 12/08/2023 8:00 AM Ann Montoya APRN, C.N.P., M.S. Vascular Medicine 01/02/2024 11:30 AM RST INTAKE VISIT POD G 07 Admitting/Central Scheduling 01/05/2024 9:20 AM KENZIE EATON RN PORT DRAW ROEI Infusion Therapy 01/05/2024 10:15 AM DX GABINO [address] Radiology 01/05/2024 10:45 AM Maddy Bingham PBelkisA.Brittney. Infectious Diseases 01/05/2024 11:15 AM Vel Vinson M.D., M.B.A. Orthopedic Surgery 01/05/2024 2:30 PM WANG PROVIDER 04 GABINO Anesthesiology For appointment details refer to your Patient Appointment Guide. TEST RESULTS PENDING AT DISCHARGE Pending Labs Order Current Status Surgical Pathology In process DETAILS OF HOSPITAL STAY REASON FOR ADMISSION Hemorrhage Gastrointestinal HOSPITAL COURSE Mr. Estevan Lester was admitted on medicine [...] bleedsecondary to Neymar-Corado tear requiring hospitalization at [facility] from 11/02-11/06 (EGD on 11/02 showed bleeding Neymar-Corado tear; status post 2 units of RBCs/PPI. He presented from his alf facility on 11/28/23 for concerns of 2 escamilla colored stools as well as drop in hemoglobin to 9.2. In the ED, he remained hemodynamically stable, CT abdomen and pelvis with contrast was negative for acute GI bleeding, Patient was noted to have to have 3 additional bloody bowel movement concerning for GI bleeding and was thus admitted to Medicine for ongoing management. Initially his aspirin and Xarelto were held and he was started on a bowel regimen. His hemoglobin remained stable without further episodes of hematochezia. He was started back on his home dose of aspirin and DVT prophylaxis with lovenox without any bleeding events. He underwent colonoscopy on 12/01 which noted both external and internal hemorrhoids, but no activebleed. There was also a ulcer at the splenic flexure which was not actively bleeding, this underwent biopsy. He was started on an active bowel regimen to help prevent worsening of hemorrhoids and referred to GI for follow-up of pathology results. He was discharged back on Xarelto 10 mg daily for DVT prophylaxis in anticipation of upcoming surgery in December, in hopes of discontinuing the need ofDVT ppx in the future should his mobility improve. MEDICATIONS CHANGED DURING THIS HOSPITAL STAY Medications stopped: None Medications changed: None Medications added: Increased miralax CONSULTS ORDERED DURING THIS ADMISSION IP CONSULT TO CARE MANAGEMENT IP CONSULT TO CARE MANAGEMENT CONDITION AT DISCHARGE Improved The patient was seen and evaluated with Dr. Triana, HIM senior clinical consultant. I saw and evaluated Mr. Estevan Lester today and provided counseling [id number] at bedside. I personally spent a total of greater than 30 minutes in counseling and coordination of care as described above to facilitate the hospital discharge. Discharge instructions were provided to the patient and caregiver(s). documented in this encounter Discharge Instructions * Discharge Instructions* Anna Marie Anne - 12/01/2023 11:14 AM CDT You were discharged from the [facility] Medicine 6 ([facility]) Service. Please identify this service name if youcall with questions after hospitalization. documented in this encounter Medications at Time of Discharge [...] daily. 30 test 07/29/2022 blood-glucose meter (FreeStyle Plummer) kit Use as instructed 1 each 07/29/2022 carboxymethylcellu lose (REFRESH PLUS) 0.5 % ophthalmic solution Administer 2 drops into both eyes 4 (four) times a day as needed for dry eyes. 50 each 06/25/2023 flash glucose scanning reader (FreeStyle Jessica 2 [place]) miscIndications:Di abetes Mellitus Type 2 Ulcer Foot Hyperglycemic (HCC) 1 each (1 Device total) continuously. 1 each 1 08/01/2022 insulin NPH (NovoLIN N FlexPen) 100 unit/mL (3 mL) pen Inject 4-8 Units under the skin 2 (two) times a day with meals. takes 8 units in the AM and 4 units in the afternoon 3 mL 12/02/2023 lancets 1 each daily. 50 each 07/29/2022 levETIRAcetam (Keppra) 100 mg/mL solution Take 7.5 mL (750 mg total) by mouth 2 (two) times a day. 06/25/2023 lisinopriL 5 mg tablet Take 5 mg by mouth daily. 09/03/2023 Novofine Autocover 30 gauge x 1/3 needle 06/25/2023 nystatin (Nystop) 100,000 unit/gram powder Apply 1 Application topically 2 (two) times a day. Apply to rash. pantoprazole (Protonix) 40 mg EC tablet Take 40 mg by mouth 2 (two) times a day before morning and evening meals. pen needle, diabetic (BD Ultra-Fine Short Pen Needle) 31 gauge x 5/16 needle 1 Injection daily. 100 each 3 12/31/2022 polyethylene glycol (Miralax) 17 gram powder packet Take 17 g by mouth daily. Dissolve each 17 g dose in 240 mLs (8 ounces) of beverage. rivaroxaban (Xarelto) 10 mg tablet Take 1 tablet (10 mg total) by mouth daily. 30 tablet 11 08/28/2023 sennosides (Senokot) 8.6 mg tablet Take 8.6 mg by mouth 2 (two) times a day. sucralfate (Carafate) 1 gram tablet Take 1 g by mouth every 6 (six) hours. documented as of this encounter Progress Notes * Yola Triana M.D. - 12/02/2023 5:43 AM CDT [place] [id number] ([facility]) Progress Note SUBJECTIVE I evaluated the patient after procedure. He was doing well. No complaints at this time. I have reviewed the current medication list. OBJECTIVE VITAL SIGNS Temperature: [36.2 ??C-36.3 ??C] 36.2 ??C Resp Rate: [20] 20 Blood Pressure: (110-157)/(58-65) 157/65 SpO2: [93 %-97 %] 97 % Pulse Rate: [53-59] 53 PHYSICAL EXAMINATION Vitals: Blood pressure 122/67, pulse (!) 55, temperature 36.3 ??C, temperature source Oral, resp. rate 18, height 180.3 cm, weight 93.7 kg, SpO2 97%. Body mass index is 28.81 kg/m??. General: Alert and interactive Lungs: Normal rate and effort. Psych: Mood and affect congruent ASSESSMENT / PLAN Mr. Lester is hospitalized on [facility] Medicine 6 ([facility]) for evaluation and management of [...] to MW tear admitted 11/02- (EGD at [facility]) s/p 2u PRBC. Presented on 11/27 for bright red blood per rectum (2 episodes). Was hemodynamically stable in the ED, Hgb 9.7 (previously in 10 range), Xarelto held. Was admitted for monitoring. No ongoing hematochezia but given second hospitalization with hematochezia and the need for chronic anticoagulation and ASA, we pursued inpatient colonoscopy. This demonstrated poor prep, no evidence of recent GI bleed,a single ulcer at splenic flexure (biopsied), and nonbleeding internal and external hemorrhoids. #1 Hemorrhage Gastrointestinal - likely lower GI [...] R hip in 3-4 mo. PLAN: - Hold Xarelto 10 mg daily (home), - DVT ppx today (Lovenox) - Outpatient f/u path results of ulcer #4 Bilateral ICA stenosis s/p multiple angioplasty/stent [...] criteria (not yet met): Labs and procedures I personally spent a total of 25 minutes providing and coordinating care today. * Lul Galeas M.D. - 12/01/2023 11:26 AM CDT [place] [id number] ([facility]) Progress Note SUBJECTIVE Feeling well [...] / PLAN Mr. Lester is hospitalized on [facility] 6 ([facility]) for evaluation and management of [...] to MW tear admitted 11/02- (EGD at [facility]) s/p 2u PRBC. Presented on 11/27 [...] seen and evaluated with Dr. Triana, HIM senior clinical consultant. I personally spent a total of 50 minutes providing and coordinating care today. * Vishnu Simon M.S.N., R.N. - 12/01/2023 11:22 AM CDT SUBJECTIVE Discharge planning - SNF Return OBJECTIVE [id number] ASSESSMENT / PLAN ASSESSMENT Patient was not assessed at this time. PLAN Patient to return to previous SNF. Please see below regarding the plan: Patient to return to: Destination - Admitted Since 11/28/2023 Service Provider Services Address Phone Fax Patient Preferred [facility] Term [address] [facility] [phone] -- Contact: Intake Patient has a [place] bedhold. Facility can manage IV antibiotics. Facility cannot manage a wound vac. Facility cannot accept weekend readmissions. COVID screening needed before patient can return: no Facility prefers patient return by 4:00 pm. Facility oxygen provider [facility] (phone [phone], fax [phone]) . Was the patient on oxygen at your facility: no The patient is being prepared to discharge on 12/03/2023 at 10:00 am if medically ready for transfer. Contact CASE MANAGEMENT if time needs to be changed. Transportation will be provided by [employer] ([phone]). They will pick the patient up in his room. Transportation will be paid forby [place]. Transport oxygen not needed. NURSING: Complete documentation [...] to follow and assist if needs arise. Ila Mcdonough., R.N. 12/01/23 * Theodore Dsouza M.D. - 11/30/2023 1:01 PM CDT T Medicine 6 ([facility]) Progress Note SUBJECTIVE No events [...] bleedsecondary to Neymar-Corado tear requiring hospitalization at [facility] from 11/02-11/06 (EGD on 11/02 showed bleeding Neymar-Corado tear; status post 2 units of RBCs/PPI. He presents from his alf facility today for concerns of 2 escamilla [...] 11/27. Notably, he was hospitalized locally at [facility] ICU from 11/02-11/06 for concerns of upper GI [...] to have repeat colonoscopy in 5 years (2021), but this was not done. There are [...] BASELINE MOBILITY: BMAT Level 1 (Bedbound) DISPOSITION: Long Term Facility Total time spent with the patient around 50 minutes with more than 50% of time spent in counseling,coordination of care, explanation of plan of care, chart review, and heyb-tb-olwe interview. Theodore Dsouza M.D. 11/30/23 1:01 PM CDT * Theodore Dsouza M.D. - 11/29/2023 2:19 PM CDT T Medicine 6 ([facility]) Progress Note SUBJECTIVE No events [...] bleedsecondary to Neymar-Corado tear requiring hospitalization at [facility] from 11/02-11/06 (EGD on 11/02 showed bleeding Neymar-Corado tear; status post 2 units of RBCs/PPI. He presents from his alf facility today for concerns of 2 escamilla [...] 11/27. Notably, he was hospitalized locally at [facility] ICU from 11/02-11/06 for concerns of upper GI [...] BASELINE MOBILITY: BMAT Level 1 (Bedbound) DISPOSITION: Long Term Facility Total time spent with the patient around 35 minutes with more than 50% of time spent in counseling,coordination of care, explanation of plan of care, chart review, and [id number] interview. Theodore Dsouza M.D. 11/29/23 2:19 PM CDT * Terrance Joseph, Pharm.D., R.Ph., BCPS - 11/29/2023 11:09 AM CDT Images from the original note were not included. Admission Medication History Note Adherence issues: Unable to assess Medication list source: [facility] Records Prior to Admission Medications Med List Status: Pharmacy Complete Set By: Terrance Joseph Pharm.D., R.Ph., BCPS at 11/29/2023 11:09 AM Status Comment 11/29/2023 11:09 AM per [facility] med list Taking? Last Dose [...] -- 1 test daily. blood-glucose meter (FreeStyle Plummer) kit -- Self 07/29/22 -- Use as instructed carboxymethylcellulose (REFRESH PLUS) 0.5 % ophthalmic solution -- -- 06/25/23 -- Administer 2 drops into both eyes 4 (four) times a day as needed for dry eyes. flash glucose scanning reader (FreeStyle Jessica 2 [place]) [facility] -- Self 08/01/22 -- 1 each (1 [...] of Need:Lifetime, Insulin Dependent: Yes Last Office Visit:10/13/23 Last A1c 11.4 on 10/09/22 Pharmacy may [...] Joseph Pharm.D., R.Ph., BCPS * Terrance Joseph PharmMayela, R.Ph., BCPS - 11/29/2023 8:42 AM CDT [...] recent GI bleed 2/2 Neymar-Corado tear at [facility]. Holding aspirin,rivaroxaban for now. Hgb 10.3 this morning. Blood pressures stable 100s-140s systolic. Currently receiving pantoprazole 40 mg IV q12h. DM2 - holding home NPH insulin. Has moderate correctional scale aspart ordered with meals. Blood glucose < 180 since admission. Doron Joseph Pharm.D., R.Ph., BCPS documented in this encounter H&P Notes * Zahira Shaw APRN, C.N.P., D.N.P. - 11/28/2023 8:44 PM CDT [facility] Medicine ([facility]) Admission Note SUBJECTIVE CHIEF COMPLAINT [...] secondary to Neymar-Corado tear requiring hospitalization at [facility] from 11/02- 11/06 (EGD on 11/02 showed bleeding Neymar-Corado tear; status post 2 units of RBCs/PPI. Per chart review, staff at the patient's alf facility noticed a change in stool color yesterday. He also had 2 escamilla colored stools today. Hemoglobin at the facility was 9.2. He was ultimately transferred to [facility] ED for further evaluation. In the ED, [...] oral Protonix, and was ultimately admitted to [place] [address] for ongoing evaluation management. Patient is evaluated [...] diagnostic strips, 1 test daily. blood-glucose meter (RetrevoStyle Plummer) kit, Use as instructed calcium carbonate (TUMS) [...] flash glucose scanning reader (FreeStyle Jessica 2 [place]) misc, 1 each (1 Device total) continuously. hydrocortisone 1 % ointment, Apply topically as needed. insulin NPH (NovoLIN N FlexPen) 100 unit/mL (3 mL) injection, Inject 10-20 Units under the skin 2 (two) times a day with meals. lancets, 1 each daily. lisinopriL 5 mg tablet, Take 5 mg by mouth daily. Novofine Autocover 30 gauge x / needle, nystatin (Mycostatin) 100,000 unit/gram cream, Apply 1 Application topically as needed. oxyCODONE (Roxicodone) 5 mg immediate release tablet, Take 5 mg by mouth as needed. pen needle, diabetic (BD Ultra-Fine Short Pen Needle) 31 gauge x 07/02 needle, 1 Injection daily. rivaroxaban (Xarelto) 10 [...] bleedsecondary to Neymar-Corado tear requiring hospitalization at [facility] from 11/02-11/06 (EGD on 11/02 showed bleeding Neymar-Corado tear; status post 2 units of RBCs/PPI. He presents from his alf facility today for concerns of 2 escamilla [...] oral Protonix, and was ultimately admitted to [place] [address] for ongoing evaluation management. # Concern for Hemorrhage Gastrointestinal- query diverticular bleed versus upper GI bleed # Normocytic anemia # Melanotic stools # Recent history of GI bleed secondary to Neymar-Corado tear # Positive guaiac Assessment: Hemoglobin stable since admission, but down from a couple days ago (previously 10.5--> 9.7) with associated escamilla colored/blood-tinged stools. Previously mentioned, he was hospitalized locally at [facility] ICU from 11/02-11/06 for concerns of upper GI [...] BASELINE MOBILITY: BMAT Level 1 (Bedbound) DISPOSITION: Long Term Facility The patient was seen and evaluated with Dr. Anyim, HIM senior clinical consultant. I personally spent a total of 55 minutes providing and coordinating care today. documented in this encounter Consult Notes * Julianne Rodrigez R.N. 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 Language: Yoruba Database Technician Services Used: No Person(s) present during interview: Person(s) Present During Interview: patient History of Present Illness #1 Hemorrhage Gastrointestinal Social History Marital Status: Single Finance/Insurance Primary insurance: [employer] Secondary insurance: N/A benefits: No Advance Directives Legal Decision Maker: Self Advance Directives Status: Not Activated OBJECTIVE Baseline Functional Status Baseline Activities of Daily Living Mobility: Requires aide of device Dressing: Needs assistance Feeding: Independent Bathing: Needs assistance Grooming: Needs assistance Toileting: Needs assistance Behavior: Appropriate, Pleasant, Calm, Cooperative, Oriented Communication: Can write, Talks, Understands speaking, Understands Yoruba, Reads Shopping: Needs assistance Medication Management: Needs [...] transport been arranged?: No Anticipated Discharge Destination: Long Term Facility ASSESSMENT / PLAN Assessment: The community coordinator met with Estevan Lester to discuss his current hospitalization and home going needs. The patient was unaccompanied. The patient was was a reliable historian. The role of community coordinator was reviewed. The patient reviewed his prior level of care and support system. The patient receives support from the alf facility staff. The patient shared that he has been at [facility] and plans on returning there when medically ready to discharge. Housekeeping, grocery shopping, meal prep, and other household responsibilities have previously been completed by patient and alf facility staff . community coordinator discussed the patient's potential needs at dismissal based on their home setting, previous needs and responsibilities, homebound status, and relevant assessments with the patient. The patient will be safe and supported to return to a [facility] when medically ready. Support will be provided by alf facility staff. The patient demonstrated understanding when discussing his home going plans and anticipated needs. At this time, the care team anticipates the patient requires the following service(s) to be reconnected: alf facility. The patient identified the following as their current vendor(s): [facility]. After reviewing the patient's chart and meeting with the patient, the community coordinator deemed the LACE+/readmission questions were not necessary. The patient reports understanding that he will dismiss from the hospital when medically stable. Pending hospital course and medical readiness, no barriers to dismissal have been identified at this time. Plan: The patient agrees with the following plan. Patient's anticipated discharge disposition is: Long Term Facility: Reconnect [facility]. Unable to return on the weekend Transportation upon dismissal will be Care Management arranged--will need wheelchair transport arranged . community coordinator recommended n/a . community coordinator provided information regarding the dismissal process. community coordinator placed or requested the following hospital-based consult orders and/or referrals: None. community coordinator will continue to assess for homegoing needs with the interdisciplinary team. community coordinator encouraged the patient to reach out with any questions/concerns. 8. Patient to return to: Destination - Admitted Since 11/28/2023 Service Provider Services Address Phone Fax Patient Preferred [facility] Long Term [address] [place] [phone] -- Contact: Intake Patient has a MA bedhold. Facility can manage IV antibiotics. Facility can manage a wound vac. Facility preferred wound vac type: n/a Facility cannot accept weekend readmissions. COVID screening needed before patient can return: no Facility prefers patient return by 4:00 PM. Facility oxygen provider is [facility] (phone [phone], fax [phone]) . Was the patient on oxygen at [...] Rodrigez R.N. 11/29/2023 * Anneliese Bates P.T., ErasmoPJamari. - 11/29/2023 10:20 AM CDT Physical Therapy [...] 58 y.o. male who was admitted to [facility] in [place] on 11/28/2023 for Anemia [D64.9] Hemorrhage Gastrointestinal [...] help from: Facility Staff Type of Home: Long Term Facility Home Layout: One Level Home Access: [...] Range of Motion: Generalized weakness Outcome Measures: AM-PAC Inpatient Short Form: AM-PAC Basic Mobility (V.2) How much help from [...] Climbing 3-5 steps with a railing?: Total AM-PAC Basic Mobility (V.2) Raw Score: 6 AM-PAC Basic Mobility (V.2) Standardized Score: 16.59 Interpretation: [...] reports he has been living in a alf. He is currently partial weight bearing with a hip spacer. He has his surgery in one month for possible arthroplasty. Patient reports he reached his max potential in the alf and has been staying there until his [...] functional activity, Neuromuscular re-education, Gait training, Orthosis [id number], Self-care/home management Billing: Tiered PT Evaluation Codes: [...] - 11/29/2023 10:04 AM CDT Occupational Therapy [facility] Inpatient Evaluation/Treatment SUBJECTIVE Patient's Name: Estevan [...] 58 y.o. male who was admitted to [facility] in [place] on 11/28/2023 for Anemia [D64.9] Hemorrhage Gastrointestinal [...] and ceiling lift for mobility at his alf facility. He has not walked in 7-8 months. Patient/Caregiver Goals: Discharge back to his facility and prepare for his upcoming procedure. Home Living and Equipment: Lives with: Alone Receives help from: Facility Staff Type of Home: Long Term Facility Home Layout: One Level Home Access: [...] than 10 minutes of activity Outcome Measures: [facility] Inpatient Short Form: Putting on and taking [...] at or below 17 Clinicians answer the [facility] Inpatient Short Form based on observed patient [...] with shopping, Cognitive assistance needed, Assistance with financial analysis manager, Assistance with showering/bathing, Physical assistance needed Barriers [...] using [facility]. He engages in ADL tasks while seated [...] documented in this encounter Nursing Notes * Eileen Amanda R.N. - 12/03/2023 10:04 AM CDT Patient and sister Lor ready for discharge per orders. IV removed, discharge instructions reviewed with patient & family; verbalized understanding. Report called to Roma SHERIFF at [facility]. Patient discharged with all belongings and discharge instructions via stretcher by [employer]. * Judy Duffy R.N. - 12/02/2023 11:58 PM CDT Problem: SAFETY ADULT Goal: Maintain a safe environment Outcome: Progressing Problem: SAFETY ADULT - RISK FOR FALL AND OR FALL INJURY Goal: Patient remains free from fall/fall injury Outcome: Progressing Problem: Incontinence and/or Moisture Goal: Skin integrity is maintained or improved Outcome: Progressing Shift Goals: Clinical Goals for the Shift: Complete bowel prep, colonoscopy today, advance diet, promote rest and comfort Identify possible barriers to meeting goals/advancing plan of care: End of Shift Summary: Patient is alert and oriented x 3. Patient endorses right hip pain rated 6/10. Scheduled Tylenol given. POCT glucose 140, 2 units insulin novolog given. Patient refused temperature and brushing his teeth. Male purewick in place. Patient awake around 0400, no needs. * Gautam Scott R.N. - 12/02/2023 5:03 PM CDT Problem: SAFETY ADULT Goal: Maintain a safe environment Outcome: Progressing Problem: SAFETY ADULT - RISK FOR FALL AND OR FALL INJURY Goal: Patient remains free from fall/fall injury Outcome: Progressing Problem: PAIN - ADULT Goal: PT VERBALIZES/DEMONSTRATES ADEQUATE COMFORT LEVEL OR BASELINE Outcome: Progressing Problem: INFECTION - ADULT Goal: [...] Goals for the Shift: Complete bowel prep, colonoscopy today, advance diet, promote rest and comfort Identify possible barriers to meeting goals/advancing plan of care: None End of Shift Summary: Patient underwent Colonoscopy this shift. Vital signs remain stable. Patientsvital signs remain stable. No PRN medications given. Purewick in place for incontinence. Adequate urinary output noted. * Annamaria Rob R.N. - 12/02/2023 5:37 AM CDT Shift Goals: Clinical Goals for the Shift: Complete bowel prep, incontinence management, promote comfort and safety Identify possible barriers to meeting goals/advancing plan of care: none End of Shift Summary: Patient refused most nursing cares overnight; refused to respond to questionsasked when RN assessed patient and refused to take all medications. Keppra was given IV instead to help prevent seizures and RN encouraged patient to drink bowel prep during each turn - but patient refused to open mouth and would push the mug away. Vital signs and RMGS remained stable during shift.DC pending hospital course and when patient becomes medically stable. Stool remain liquid/yellowish-brown with bloody streaks. * Gautam Scott R.N. - 12/01/2023 5:03 [...] take his pills. Patient yelled at the service writer advisor to cut it out! and pursed his lips when the service writer advisor was trying to get him to take his med. Multiple attempts were made, Primary care team notified. documented in this encounter ED Notes * Patel Aguayo M.D. - 11/28/2023 8:55 PM CDT Care of patient transferred to me by Paola Solis APRN, C.N.P., D.N.P., M.S.N.. VITAL SIGNS BP 125/89 Pulse 60 Temp 36.6 ??C (Oral) Resp 20 SpO2 93% ED Course as of 11/28/232054Nov 28, 2023 1600 Patient signed out to me by day team with disposition pending CT scan. In short, this patient presents with hematochezia on Xarelto. 1808 CT Abdomen Pelvis without and with IV Contrast CT reveals no actionable findings 1853 [place] score was calculated at 17 points. Discharge not recommended, therefore we will admit to medicine for serial hemoglobin check and observation for potential colonoscopy. Final Diagnoses: as of 11/28/232054 Hemorrhage Gastrointestinal Anemia Patel Aguayo M.D. Resident 11/28/232054 * Sandra Moise M.D. - 11/28/2023 6:25 PM CDT Care of patient transferred to vt by Paola Solis. Disposition pending CT of [...] (Oral) SpO2 96% Final Diagnoses: as of 11/28/231853 Hemorrhage Gastrointestinal Anemia Sandra Moise M.D. 11/28/231826 Sandra Moise M.D. 11/28/233 * Paola Solis APRN, C.N.P., D.N.P., M.S.N. [...] an acute abdomen. His rectal exam - director of safety present at the bedside- his rectum is [...] mL (Omnipaque) (115 mL intravenous Given 11/28/23 165) sodium chloride (PF) 0.9 % injection 1-100 mL (50 mL intravenous Given 11/28/23 165) acetaminophen tablet 1,000 mg (TylenoL) (1,000 mg oral Given 11/28/23 1722) IMAGING: LAST VITALS: Vitals: 11/28/23 1727 BP: Pulse: 66 Temp: SpO2: 96% Final Diagnoses: as of 11/28/231857 Hemorrhage Gastrointestinal Anemia DISPOSITION: Pending work up Paola Solis APRN, C.N.P., D.N.P., M.S.N. 11/28/231857 documented in this encounter Miscellaneous Notes * Hospital Course - Lul Galeas M.D. - 11/29/2023 3:53 AM CDT Mr. [...] bleedsecondary to Neymar-Corado tear requiring hospitalization at [facility] from 11/02-11/06 (EGD on 11/02 showed bleeding Neymar-Corado tear; status post 2 units of RBCs/PPI. He presented from his alf facility on 11/28/23 for concerns of 2 escamilla colored stools as well as drop in hemoglobin to 9.2. In the ED, he remained hemodynamically stable, CT abdomen and pelvis with contrast was negative for acute GI bleeding, Patient was noted to have to have 3 additional bloody bowel movement concerning for GI bleeding and was thus admitted to Medicine for ongoing management. Initially his aspirin and Xarelto were held and he was started on a bowel regimen. His hemoglobin remained stable without further episodes of hematochezia. He was started back on his home dose of aspirin and DVT prophylaxis with lovenox without any bleeding events. He underwent colonoscopy on 12/01 which noted both external and internal hemorrhoids, but no activebleed. There was also a ulcer at the splenic flexure which was not actively bleeding, this underwent biopsy. He was started on an active bowel regimen to help prevent worsening of hemorrhoids and referred to GI for follow-up of pathology results. He was discharged back on Xarelto 10 mg daily for DVT prophylaxis in anticipation of upcoming surgery in December, in hopes of discontinuing the need ofDVT ppx in the future should his mobility improve. documented in this encounter Plan of Treatment Upcoming Encounters Date Type Department Care Team (Latest Contact Info) Description 01/02/2024 11:30 AM CARRIER WASHER Clinical Communication Virtual Review in [address] [phone] 01/05/2024 9:20 AM CARRIER WASHER Lab Department of Infusion Therapy in [address] [phone] Vel Vinson M.D., M.B.A. [address] [place] [phone] 01/05/2024 10:15 AM CARRIER WASHER Appointment Department of Radiology, [facility], in [address] [phone] Vel Vinson M.D., M.B.A. [address] [place] [phone] 01/05/2024 10:45 AM CARRIER WASHER Comprehensive Visit Section of Infectious Diseases in [address] [phone] Maddy Bingham P.A.-C. [address] [place] [phone] 01/05/2024 11:15 AM CARRIER WASHER Office Visit Department of Orthopedic Surgery in [place], [place] [address] [place] [address] Vel Vinson M.D., M.B.A. [address] [place] [phone] 01/05/2024 2:30 PM CARRIER WASHER Comprehensive Visit Preoperative Evaluation Center in [place], [place] [address] [place] [address] Vel Vinson M.D., M.B.A. [address] [place] [phone] 01/06/2024 7:25 AM CARRIER WASHER Hospital Encounter RST RO 02 4 AM ADMIT [address] [place] [phone] Vel Vinson M.D., M.B.A. [address] [place] [phone] 01/06/2024 7:25 AM CARRIER WASHER - 01/06/2024 12:11 PM CARRIER WASHER Surgery RST [facility] [address] [place] [address] Vel Vinson M.D., M.B.A. [address] [place] [phone] ARTHROPLASTY REVISION FEMORAL+ACETABULAR HIP Scheduled Procedures Name Priority Associated Diagnoses Date/Ti me ARTHROPLASTY REVISION FEMORAL+ACETABULAR HIP Infection Total Hip Arthroplasty Subsequent Right 01/06/2024 7:25 AM CARRIER WASHER documented as of this encounter Procedures Procedure Name Priority Date/Time Associated Diagnosis Comments HEMOGLOBIN, B Routine 12/03/2023 8:23 AM CDT GLUCOSE POCT, B Routine 12/02/2023 9:09 PM CDT GLUCOSE POCT, B Routine 12/02/2023 1:05 PM CDT ADULT OXYGEN THERAPY Routine 12/02/2023 12:19 PM CDT ADULT OXYGEN THERAPY Routine 12/02/2023 12:19 PM CDT SURGICAL PATHOLOGY Routine 12/02/2023 11 :55 AM CDT COLONOSCOPY Routine 12/02/2023 11:10 AM CDT COLONOSCOPY Routine 12/02/2023 11:10 AM CDT GLUCOSE POCT, [...] CDT documented in this encounter Results * (ABNORMAL) Hemoglobin (12/03/2023 8:23 AM CDT) Hemoglobin 9.9(L) 13.2 - 16.6 g/dL 12/03/2023 9:37 AM CDT DTL Blood (Blood, Venous) 12/03/2023 8:23 AM CDT 12/03/2023 9:14 AM CDT Yola Triana M.D. LAB BLOOD ADD-ON Cata l Result Performing Organization Address City/[facility]/ZIP Co de Phone Number [facility] [address] [place] [address], [facility] DTL [facility] [address] [place] [address] * Glucose, POCT (12/02/2023 9:09 PM CDT) Pathologist [facility] Glucose, POCT, B 140 70 - 140 mg/dL 12/02/2023 9:24 PM CDT PCLX Site Capillary 12/02/2023 9:24 PM CDT PCLX Last Intake 3-4 hours 12/02/2023 9:24 PM CDT PCLX Blood 12/02/2023 9:09 PM CDT 12/02/2023 9:24 PM CDT Unknown Provider LAB POCT ORDERABLES-MANUAL Cata l Result [facility] [address] [place] [address], [facility] PCLX [facility] 200 [place] [address] * Glucose, POCT (12/02/2023 1:05 PM CDT) Glucose, POCT, B 90 70 - 140 mg/dL 12/02/2023 1:07 PM CDT PCLX Site Capillary 12/02/2023 1:07 PM CDT PCLX Last Intake NPO 12/02/2023 1:07 PM CDT PCLX Blood 12/02/2023 1:05 PM CDT 12/02/2023 1:07 PM CDT us Unknown Provider LAB POCT ORDERABLES-MANUAL Cata l Result [facility] [address] [place] [address], [facility] PCLX [facility] POC [address] [place] [address] * Surgical Pathology (12/02/2023 11:55 AM CDT) [...] reagent. Its performance characteristics were determined by [facility] in a manner consistent with CLIA requirements. [...] LAB SURG PATH ORDERABLES F inal Result [facility] [address] [place] [address], [facility] DT [address] [place] [address] * Colonoscopy (12/02/2023 11:10 AM CDT) 12/02/2023 [...] bowel preparation was evaluated using the BBPS ([place] Bowel ? Preparation Scale) with scores of: [...] PROCEDURE ORDERABLES Final Result Performing Organization Address City/State/[facility] Co sc Phone Number CLAY PROVIVIS NA * Glucose, POCT (12/02/2023 10:50 AM CDT) Glucose, POCT, B 90 70 - 140 mg/dL 12/02/2023 10:52 AM CDT PCLX Site Capillary 12/02/2023 10:52 AM CDT PCLX Blood 12/02/2023 10:5 0 AM CDT 12/02/2023 10:52 AM CDT us Unknown Provider LAB POCT ORDERABLES-MANUAL Cata l Result Performing Organization Address City/[facility]/ZIP Co de Phone Number [facility] [address] [place] [address], [facility] PCLX [facility] POC [address] [place] [address] * (ABNORMAL) Hemoglobin (12/02/2023 8:27 AM CDT) Hemoglobin 9.9(L) 13.2 - 16.6 g/dL 12/02/2023 9:43 AM CDT DTL Blood (Blood, Venous) 12/02/2023 8:27 AM CDT 12/02/2023 9:06 AM CDT Lul Galeas M.D. LAB BLOOD ADD-ON Final Result Performing Organization Address [facility] Co de Phone Number [facility] [address] [place] [address], [facility] DTL [facility] [address] [place] [address] * Glucose, POCT (12/01/2023 9:32 PM CDT) Glucose, POCT, B 115 70 - 140 mg/dL 12/01/2023 9:37 PM CDT PCLX Site Capillary 12/01/2023 9:37 PM CDT PCLX Last Intake > 4 hours 12/01/2023 9:37 PM CDT PCLX Blood 12/01/2023 9:32 PM CDT 12/01/2023 9:37 PM CDT us Unknown Provider LAB POCT ORDERABLES-MANUAL Cata l Result Performing Organization Address [facility]/ZIP Co de Phone Number [facility] [address] [place] [address], [facility] PCLX [facility] POC [address] [place] [address] * Glucose, POCT (12/01/2023 12:06 PM CDT) Glucose, POCT, B 90 70 - 140 mg/dL 12/01/2023 12:33 PM CDT PCLX Site Capillary 12/01/2023 12:33 PM CDT PCLX Last Intake 3-4 hours 12/01/2023 12:33 PM CDT PCLX Blood 12/01/2023 12:0 6 PM CDT 12/01/2023 12:33 PM CDT us Unknown Provider LAB POCT ORDERABLES-MANUAL Cata l Result Performing Organization Address City/[facility]/ZIP Co de Phone Number [facility] [address] [place] [address], [place] PCLX [facility] POC [address] [place] [address] * Glucose, POCT (12/01/2023 7:59 AM CDT) Glucose, POCT, B 93 70 - 140 mg/dL 12/01/2023 8:25 AM CDT PCLX Site Capillary 12/01/2023 8:25 AM CDT PCLX Blood 12/01/2023 7:59 AM CDT 12/01/2023 8:25 AM CDT us Unknown Provider LAB POCT ORDERABLES-MANUAL Cata l Result Performing Organization Address [facility] Co de Phone Number [facility] [address] [place] [address], [place] PCLX [facility] POC [address] [place] [address] * Glucose, POCT (11/30/2023 8:48 PM CDT) Glucose, POCT, B 109 70 - 140 mg/dL 11/30/2023 8:50 PM CDT PCLX Site Capillary 11/30/2023 8:50 PM CDT PCLX Last Intake 3-4 hours 11/30/2023 8:50 PM CDT PCLX Blood 11/30/2023 8:48 PM CDT 11/30/2023 8:51 PM CDT us Unknown Provider LAB POCT ORDERABLES-MANUAL Cata l Result [facility] [address] [place] [address], [place] P[facility] POC [address] [place] [address] * Glucose, POCT (11/30/2023 4:47 PM CDT) Glucose, POCT, B 129 70 - 140 mg/dL 11/30/2023 4:49 PM CDT PCLX Last Intake 3-4 hours 11/30/2023 4:49 PM CDT PCLX Blood 11/30/2023 4:47 PM CDT 11/30/2023 4:50 PM CDT us Unknown Provider LAB POCT ORDERABLES-MANUAL Cata l Result Performing Organization Address City/[facility]/ZIP Co de Phone Number [facility] [address] [place] [address], [place] PCLX [facility] POC [address] [place] [address] * (ABNORMAL) Glucose, POCT (11/30/2023 12:07 PM CDT) Glucose, POCT, B 158(H) 70 - 140 mg/dL 11/30/2023 12:09 PM CDT PCLX Last Intake 2-3 hours 11/30/2023 12:09 PM CDT PCLX Blood 11/30/2023 12:0 7 PM CDT 11/30/2023 12:10 PM CDT us Unknown Provider LAB POCT ORDERABLES-MANUAL Cata l Result [facility] [address] [place] [address], [place] PCLX [facility] POC [address] [place] [address] * Glucose, POCT (11/30/2023 7:30 AM CDT) Glucose, POCT, B 102 70 - 140 mg/dL 11/30/2023 7:37 AM CDT PCLX Last Intake 3-4 hours 11/30/2023 7:37 AM CDT PCLX Blood 11/30/2023 7:30 AM CDT 11/30/2023 7:37 AM CDT us Unknown Provider LAB POCT ORDERABLES-MANUAL Cata l Result [facility] [address] [place] [address], [place] PCLX [facility] POC [address] [place] [address] * Basic Metabolic Panel (11/30/2023 6:54 AM CDT) Pathologist [facility] Potassium, S 4.4 3.6 - 5.2 mmol/L [...] BLOOD ADD-ON Final Result Performing Organization Address City/[facility]/ZIP Co de Phone Number [facility] [address] [place], [place] [address] [address] [place] [address] * (ABNORMAL) CBC without Differential (11/30/2023 6:54 [...] Dsouza M.D. LAB BLOOD ADD-ON Final Result [facility] [address] [place], [place] [address] [address] [place] [address] * Glucose, POCT (11/29/2023 9:16 PM CDT) Pathologist [facility] Glucose, POCT, B 130 70 - 140 mg/dL 11/29/2023 9:28 PM CDT PCLX Blood 11/29/2023 9:16 PM CDT 11/29/2023 9:29 PM CDT us Unknown Provider LAB POCT ORDERABLES-MANUAL Cata l Result Performing Organization Address City/[facility]/ZIP Co de Phone Number [facility] [address] [place] [address], [facility] PCLX [facility] POC [address] [place] [address] * Glucose, POCT (11/29/2023 5:16 PM CDT) Glucose, POCT, B 112 70 - 140 mg/dL 11/29/2023 5:19 PM CDT PCLX Site Capillary 11/29/2023 5:19 PM CDT PCLX Blood 11/29/2023 5:16 PM CDT 11/29/2023 5:19 PM CDT us Unknown Provider LAB POCT ORDERABLES-MANUAL Cata l Result Performing Organization Address City/[facility] Co de Phone Number [facility] [address] [place] [address], [facility] PCLX [facility] POC [address] [place] [address] * Glucose, POCT (11/29/2023 12:19 PM CDT) Glucose, POCT, B 102 70 - 140 mg/dL 11/29/2023 12:23 PM CDT PCLX Last Intake 3-4 hours 11/29/2023 12:23 PM CDT PCLX Blood 11/29/2023 12:1 9 PM CDT 11/29/2023 12:23 PM CDT us Unknown Provider LAB POCT ORDERABLES-MANUAL Cata l Result Performing Organization Address City/[facility]/ZIP Co de Phone Number [facility] [address] [place] [address], [facility] PCLX [facility] POC [address] [place] [address] * Glucose, POCT (11/29/2023 7:55 AM CDT) Glucose, POCT, B 81 70 - 140 mg/dL 11/29/2023 8:00 AM CDT PCLX Site Capillary 11/29/2023 8:00 AM CDT PCLX Blood 11/29/2023 7:55 AM CDT 11/29/2023 8:00 AM CDT Unknown Provider LAB POCT ORDERABLES-MANUAL Cata l Result Performing Organization Address City/[facility]/ZIP Co de Phone Number [facility] [address] [place] [address], [facility] PCLX [facility] POC [address] [place] [address] * (ABNORMAL) Morphology Eval (special smear) (11/29/2023 [...] no diagnostic abnormalities are seen. Reviewed by: Tech 11/29/2023 10:31 AM CDT DHPM Blood (Blood, Venous) 11/29/2023 7:49 AM CDT 11/29/2023 8:18 AM CDT Zahira Shaw APRN, C.N.P., D.N.P. LAB BLOOD ADD-ON Final Result Performing Organization Address City/[facility]/ZIP Co de Phone Number [facility] [address] [place], [place] [address] [place] [address] [place] [address] * Folate (11/29/2023 7:49 AM CDT) [facility] Folate, S >20.0 >=4.0 mcg/L 12/01/2023 8: 08 AM CDT DT Blood (Blood, Venous) 11/29/2023 7:49 AM CDT 11/29/2023 8:33 AM CDT Zahira Shwa APRN, C.N.P., D.N.P. LAB BLOOD ADD-ON Final Result Performing Organization Address City/[facility]/ZIP Co de Phone Number [facility] [address] [place], [place] [phone] [place] [address] 200 [place] [address] * Vitamin B12 Assay (11/29/2023 7:49 AM CDT) [facility] Vitamin B12 Assay, S 585 180 - [...] C.N.P., D.N.P. LAB BLOOD ADD-ON Final Result [facility] [address] [place], [place] [address] [place] [address] [place] [address] * (ABNORMAL) Iron and Total Iron-Binding Capacity [...] C.N.P., D.N.P. LAB BLOOD ADD-ON Final Result [facility] [address] [place] [address], [facility] [address] [place] [address] * Basic Metabolic Panel (11/29/2023 7:49 AM CDT) Potassium, S 4.3 3.6 - 5.2 mmol/L [...] LAB BLOOD ADD-ON Final Result [facility] [address] [place] [address], [facility] [address] [place] [address] * (ABNORMAL) CBC with Differential, Blood (11/29/2023 [...] C.N.P., D.N.P. LAB BLOOD ADD-ON Final Result [facility] [address] [place] [address], [facility] DTL [facility] [address] [place] [address] [facility] [address] [place] [address] * (ABNORMAL) CBC with Differential, Blood (11/28/2023 [...] 7:01 PM CDT 11/28/2023 7:05 PM CDT Patel Aguayo M.D. LAB BLOOD ADD-ON Final Re sult [facility] [address] [place] [address], [facility] STMA [facility] [address] [place] [address] * CT Abdomen Pelvis without and with [...] D.N.P., M.S.N. LAB BLOOD ADD-ON Final Result Performing Organization Address City/State/[facility] de Phone Number [facility] [place] [address], [facility] [place] [address] * Type and Screen (with Reflex Antibody [...] BLOOD BANK TEST O RDERABLES Final Result [facility] [address] [place] [address], [facility] STRM [facility] [address] [place] [address] * Lactate (11/28/2023 3:31 PM CDT) [facility] Lactate, P 1.2 0.5 - 2.2 mmol/L 11/28/2023 3:59 PM CDT STMA Blood (Blood, Venous) 11/28/2023 3:31 PM CDT 11/28/2023 3:44 PM CDT Jonna Kwok M.D., J.D. LAB BLOOD NON ADD-ON Final Result [facility] [address] [place] [address], [facility] STMA [facility] [address] [place] [address] * (ABNORMAL) CBC with Differential, Blood (11/28/2023 3:31 PM CDT) [facility] Hemoglobin 9.7(L) 13.2 - 16.6 g/dL 11/28/2023 [...] CDT Jonna Kwok M.D., J.D. LAB BLOOD ADD-ON Cata l Result [facility] [address] [place] [address], [facility] STMA [facility] [address] [place] [address] [facility] [address] [place] [address] * Basic Metabolic Panel (11/28/2023 3:31 PM CDT) Pathologist [facility] Potassium, P 4.3 3.6 - 5.2 mmol/L [...] CDT Jonna Kwok M.D., J.D. LAB BLOOD ADD-ON Cata l Result Performing Organization Address City/[facility]/ZIP Co de Phone Number [facility] [address] STMA [facility] [address] [place] [address] * Ferritin (11/28/2023 3:20 PM CDT) Pathologist [facility] Ferritin, S 302 31 - 409 mcg/L 11/29/2023 4:22 AM CDT DTL Blood (Blood, Venous) 11/28/2023 3:20 PM CDT 11/29/2023 3:49 AM CDT Zahira Shaw APRN C.N.P., D.N.P. LAB BLOOD ADD-ON Final Result [facility] [address] [place] [address] * ECG 12 Lead (11/28/2023 3:18 PM CDT) Ventricular Rate ECG/Min 58 BPM MUSE [place] Interval 208 ms MUSE QRSD Interval 94 ms MUSE QT Interval 460 ms MUSE QTC Interval 451 ms MUSE R [place] 43 degrees MUSE T Wave [place] -22 degrees MUSE 11/28/2023 3:18 PM CDT 11/28/2023 3:27 PM CDT Impressions MUSE - 11/28/2023 3:27 PM CDT Sinus bradycardia with 1st degree A-V block Low voltage QRS Low anterior forces Nonspecific T wave abnormality When compared with ECG of 24-May-2023 12:12, [place] interval has increased T wave changes QT has shortened Reviewed by MARTHA Shah Narrative Procedure Note Prudencio Painting Jr., M.D. - 11/28/2023 IMPRESSION: Sinus bradycardia with 1st degree A-V block Low voltage QRS Low anterior forces Nonspecific T wave abnormality When compared with ECG of 24-May-2023 12:12, [place] interval has increased T wave changes QT has shortened Reviewed by MARTHA Shah us Paola Solis APRN, C.N.P., D.N.P., M.S.N. ECG ORDERABLES Final Result MUSE NA documented in this encounter Visit Diagnoses Diagnosis Infection Total Hip Arthroplasty Subsequent Right- Primary Hemorrhage Gastrointestinal- Primary Hemorrhage Gastrointestinal Anemia Infection Total Hip Arthroplasty Initial Right (HCC) Stroke (HCC) Infection Total Hip Arthroplasty Subsequent Right documented in this encounter Admitting Diagnoses Diagnosis Hemorrhage Gastrointestinal documented in this encounter Administered Medications Inactive Administered Medications - up to 3 most recent administrations Medication Order MAR Action Action Date Dose Rate Site acetaminophen tablet 1,000 mg (TylenoL) 1,000 mg, oral, Once, On Fri11/28/23 at 1700, For 1 dose Given 11/28/2023 5:22 PM CDT 1,000 mg acetaminophen tablet 1,000 mg (TylenoL) 1,000 mg, oral, 3 times daily, First dose (after last modification) on 11/29/23 at 1400 Given 12/03/2023 9:13 AM CDT 1,000 mg Given 12/02/2023 9:11 PM CDT 1,000 mg Given 12/02/2023 1:03 PM CDT 1,000 mg aspirin chewable tablet 81 mg 81 mg, oral, Daily, First dose on 11/29/23 at 0900 Given 12/03/2023 9:13 AM CDT 81 mg Given 12/02/2023 1:03 PM CDT 81 mg Given 12/01/2023 8:10 AM CDT 81 mg atorvastatin tablet 20 mg (Lipitor) 20 mg, oral, Daily at bedtime, First dose on Fri11/29/23 at 2100 Given 12/02/2023 9:11 PM CDT 20 mg Given 11/30/2023 8:43 PM CDT 20 mg enoxaparin injection 40 mg (Lovenox) 40 mg, subcutaneous, Once, On Fri12/01/23 at 1115, For 1 dose Given 12/01/2023 12:07 PM CDT 40 mg Right Lower Abdomen enoxaparin injection 40 mg (Lovenox) 40 mg, subcutaneous, Every 24 hours scheduled, First dose on Fri12/02/23 at 1345 Given 12/02/2023 1:36 PM CDT 40 mg Left Lower Abdomen insulin aspart U-100 injection 0-13 [...] CDT 2 Units Left Upper Arm (Back) insulin aspart U-100 injection 0-13 Units (NovoLOG [...] 399: Call service writing Insulin orders Given 12/02/2023 9:12 PM CDT 2 Units Left Upper Arm (Back) iohexoL 350 mg iodine/mL solution 1-200 mL (Omnipaque) 1-200 mL, intravenous, Once in imaging, contrast, Starting on Fri11/28/23 at 1654, For 1 dose, Imaging Protocol Orders, Dose per [facility] Medication Guidelines Given 11/28/2023 4:56 PM CDT 115 mL levETIRAcetam 750 mg in NaCl 0.9% IVPB (Keppra) 750 mg, intravenous, at 173 mL/hr, Administer over 20 Minutes, Once, On 12/01/23 at 2200, For 1 dose, Give instead of PO dose b/c patient refusing to take PO) Do NOT refrigerate. New Bag 12/01/2023 10:45 PM CDT 750 mg 173 mL/hr levETIRAcetam solution 750 mg (Keppra) 750 mg, oral, 2 times daily, First dose on Fri11/29/23 at 0900 Given 12/03/2023 9:14 AM CDT 750 mg Given 12/02/2023 9:11 PM CDT 750 mg Given 12/02/2023 9:03 AM CDT 750 mg lisinopriL tablet 5 mg 5 mg, oral, Daily, First dose on Fri11/29/23 at 0900 Given 12/03/2023 9:13 AM CDT 5 mg Given 12/02/2023 1:03 PM CDT 5 mg Given 12/01/2023 8:10 AM CDT 5 mg NaCl 0.9 % bolus 500 mL 500 [...] 11/28/2023 9:18 PM CDT [address] tablet 40 mg (Protonix) 40 mg, oral, 2 times daily before morning and evening meals, First dose on Fri11/29/23 at 1600, Swallow whole. Do NOT crush, chew, or split tablet. Given 12/03/2023 6:51 AM CDT 40 mg Given 12/02/2023 4:09 PM CDT 40 mg Given 12/01/2023 4:41 PM CDT 40 mg pantoprazole injection 40 mg (Protonix) 40 mg, intravenous, Every 12 hours scheduled, First dose on Fri11/29/23 at 0900, Administer IV push over 2 minutes. Add 10 mL NS to 40 mg vial for a final concentration of 4 mg/mL. Given 11/29/2023 8:54 AM CDT 40 mg polyethylene glycol powder packet 17 g (Miralax) 17 g, oral, 3 times daily, First dose (after last modification) on Fri11/29/23 at 2100, Ordered sequence of administration: polyethylene glycol, then bisacodyl until BM achieved. Avoid mixing with starch-based thickened liquids. Given 11/30/2023 10:17 AM CDT 17 g polyethylene glycol powder packet 17 g (Miralax) 17 g, oral, Daily, First dose on Fri12/03/23 at 0900, Dissolve in 240 mLs (8 ounces) of water prior to giving. Avoid mixing with starch-based thickened liquids. Given 12/03/2023 9:13 AM CDT 17 g polyethylene glycol-electrolytes solution [...] Given 11/30/2023 12:55 PM CDT 4,000 mL rivaroxaban tablet 10 mg (Xarelto) 10 mg, oral, Every morning, First dose on Fri12/03/23 at 0900 Given 12/03/2023 9:14 AM CDT 10 mg sennosides-docusate sodium 8.6-50 mg per tablet 1 tablet (Senokot-S) 1 tablet, oral, 2 times daily, First dose on Fri11/29/23 at 0900, Do not give if patient has diarrhea. Given 12/03/2023 9:13 AM CDT 1 tablet Given 12/02/2023 9:11 PM CDT 1 tablet Given 11/30/2023 8:25 PM CDT 1 tablet sodium chloride (PF) 0.9 % injection 1-100 mL 1-100 mL, intravenous, Once, On Fri11/28/23 at 1655, For 1 dose, Imaging Protocol Orders, Dose per [place] Medication Guidelines Given 11/28/2023 4:56 PM CDT 50 mL sodium chloride 0.9 % injection 10 mL [...] when no infusion to maintain patency Given 12/02/2023 9: 16 PM CDT 3 mL Given 12/02/2023 9:13 AM CDT 3 mL Given 12/01/2023 9:22 PM CDT 3 mL sucralfate suspension 1 g (Carafate) 1 g, oral, 4 times daily, First dose on 11/29/23 at 0800 Given 12/02/2023 9:11 PM CDT 1 g Given 12/02/2023 4:09 PM CDT 1 g Given 12/02/2023 1:03 PM CDT 1 g documented in this encounter Active and Recently Administered Medications Times are shown in CDT. Scheduled Medication Order 12/01/2023 12/02/2023 12/03/2023 acetaminophen tablet 1,000 mg (TylenoL) 1,000 mg, oral, 3 times daily, First dose (after last modification) on 11/29/23 at 1400 0810 (Given - Provider: Kimberly Hi R.N.)1356 (Given - Provider: Gautam Scott R.N.)2122 (Not Given - Provider: Annamaria Rob R.N. - Reason: Patient/family refused) 1235 (Not Given - Provider: Gautam Scott R.N. - Reason: Patient/family refused)1303 (Given - Provider: Gautam Scott R.N.)2110 (Given - Provider: Judy Hi R.N.) 09 (Given - Provider: Eileen Amanda R.N.) aspirin chewable tablet 81 mg 81 mg, oral, Daily, First dose on 11/29/23 at 0900 0810 (Given - Provider: Kimberly Hi R.N.) 1303 (Given - Provider: Gautam Scott R.N.) 0913 (Given - Provider: Eileen Amanda R.N.) atorvastatin tablet 20 mg (Lipitor) 20 mg, oral, Daily at bedtime, First dose on Fri11/29/23 at 2100 2121 (Not Given - Provider: Annamaria Rob R.N. - Reason: Patient/family refused) 2110 (Given - Provider: Judy Hi R.N.) enoxaparin injection 40 mg (Lovenox) (COMPLETED) 40 mg, subcutaneous, Once, On Fri12/01/23 at 1115, For 1 dose 1207 (Given - Provider: Gautam Scott R.N.) enoxaparin injection 40 mg (Lovenox) (CANCELED) 40 mg, subcutaneous, Every 24 hours scheduled, First dose on Fri12/02/23 at 1345 1336 (Given - Provider: Gautam Scott R.N.) insulin aspart U-100 injection 0-13 Units (NovoLOG [...] than 399: Call service writing Insulin orders 2133 (Not Given - Provider: Annamaria Rob R.N. - Reason: Order parameters not met - Comment: rmg = 115) 2111 (Given - Provider: Judy Hi R.N.) levETIRAcetam 750 mg in NaCl 0.9% IVPB (Keppra) (COMPLETED) 750 mg, intravenous, at 173 mL/hr, Administer over 20 Minutes, Once, On 12/01/23 at 2200, For 1 dose, Give instead of PO dose b/c patient refusing to take PO) Do NOT refrigerate. 2245 (New Bag - Provider: Annamaria Rob R.N.) levETIRAcetam solution 750 mg (Keppra) 750 mg, oral, 2 times daily, First dose on 11/29/23 at 0900 0810 (Given - Provider: Kimberly Hi R.N.)213 (Not Given - Provider: Annamaria Rob R.N. - Reason: Patient/family refused) 09 (Given - Provider: Kimberly Hi R.N.)211 (Given - Provider: Judy Hi RBelkisNBelkis) 0914 (Given - Provider: Eileen Amanda R.N.) lisinopriL tablet 5 mg 5 mg, oral, Daily, First dose on 11/29/23 at 0900 0810 (Given - Provider: Kimberly Hi RWilma) 1303 (Given - Provider: Gautam Scott R.N.) 0913 (Given - Provider: Eileen Amanda R.N.) pantoprazole DR tablet 40 mg (Protonix) 40 mg, oral, 2 times daily before morning and evening meals, First dose on 11/29/23 at 1600, Swallow whole. Do NOT crush, chew, or split tablet. 0525 (Given - Provider: Blair Mcdaniel R.N.)1641 (Given - Provider: Jael LeviN.) 1313 (Not Given - Provider: Gautam Scott R.N. - Reason: Patient not available)1609 (Given - Provider: Gautam Scott R.N.) 0651 (Given - Provider: Judy Hi RBelkisN.) polyethylene glycol powder packet 17 g (Miralax) 17 g, oral, Daily, First dose on Fri12/03/23 at 0900, Dissolve in 240 mLs (8 ounces) of water prior to giving. Avoid mixing with starch-based thickened liquids. 09 (Given - Provider: Eileen Amanda R.N.) rivaroxaban tablet 10 mg (Xarelto) 10 mg, oral, Every morning, First dose on Fri12/03/23 at 0900 0914 (Given - Provider: Eileen Amanda R.N.) sennosides-docusate sodium 8.6-50 mg per tablet 1 tablet (Senokot-S) 1 tablet, oral, 2 times daily, First dose on Fri11/29/23 at 0900, Do not give if patient has diarrhea. 0821 (Not Given - Provider: Kimberly Hi R.N. - Reason: Patient/family refused)2118 (Not Given - Provider: Annamaria Rob R.N. - Reason: Order parameters not met - Comment: Patient getting prep; having liquid stool) 123 (Not Given - Provider: Gautam Scott R.N. - Reason: Patient/family refused)2110 (Given - Provider: Judy Hi R.N.) 09 (Given - Provider: Eileen Amanda R.N.) sodium chloride 0.9 % injection 3 mL 3 mL, intravenous, Every 12 hours scheduled, First dose on Fri11/28/23 at 2100, Peripheral Intravenous Catheter and Rapid Infusion Catheter, when no infusion to maintain patency 0820 (Given - Provider: Kimberly Hi R.N.)2121 (Given - Provider: Annamaria Rob R.N.) 09 (Given - Provider: Kimberly Hi R.N.)2115 (Given - Provider: Judy Hi R.N.) 0914 (Not Given - Provider: Eileen Amanda R.N. - Reason: Other - Comment: patient discharging, no IV) sucralfate suspension 1 g (Carafate) 1 g, oral, 4 times daily, First dose on Fri11/29/23 at 0800 0810 (Given - Provider: Kimberly Hi R.N.)1206 (Given - Provider: Gautam Scott R.N.)1641 (Given - Provider: Jael LeviNBelkis)2121 (Not Given - Provider: Annamaria Rob RBelkisNBelkis - Reason: Patient/family refused) 0903 (Given - Provider: Kimberly Hi RBelkisNBelkis)1303 (Given - Provider: Gautam Scott RBelkisNBelkis)1609 (Given - Provider: Gautam Scott RBelkisNBelkis)2111 (Given - Provider: Judy Hi RBelkisNBelkis) 0913 (Not Given - Provider: Eileen Amanda R.N. - Reason: Other) PRN Medication Order 12/01/2023 12/02/2023 12/03/2023 calcium carbonate chewable tablet 200 mg of [...] injection documented in this encounter Care Teams Conference Planning Manager Relationship Specialty Start Date End Date Elsewhere, Pcp PCP - General Internal Medicine 10/03/23 documented as of this encounter
--- OUTSIDE RECORDS SUMMARY | 2023-12-29 13:08 | XMS_ITS | Encounter Summary ---
Author Organization [facility] Address [address] [place] [address] Care Team Providers Care Plastics Design Engineer Name Role Phone Doug Lima M.D. Primary Care Provider + [phone] Encounter Details Date Type Department Care Team ([facility] st Contact Info) Description 09/08/2023 Orders Only Section of Infectious Diseases in [place], [place] [address] [place] [phone] Storm Nicole M.D. 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) Social History Tobacco Use Types Packs/Day Years Used Date Smoking Tobacco: Never Passive Smoke Exposure: Never Smokeless Tobacco: Never Alcohol Use Standard Drinks/Week Comments Never 2 (1 standard drink = 0.6 oz pur e alcohol) [facility] Utilities Answer Date Recorded In the past 12 months has [employer], oil, or water [employer] threatened to shut off services in your [...] PM CDT Legal Sex Male 6:41 AM FURNITURE REPAIR TECHNICIAN Gender Identity Male 07/26/2022 1:32 PM CDT Sexual Orientation Straight 07/26/2022 1: 32 PM CDT documented as of this encounter Plan of Treatment Upcoming Encounters Date Type Department Care Team (Latest Contact Info) Description 01/02/2024 11:30 AM FURNITURE REPAIR TECHNICIAN Clinical Communication Virtual Review in [place], [place] [address] [place] [phone] 01/05/2024 9:20 AM FURNITURE REPAIR TECHNICIAN Lab Department of Infusion Therapy in [place], [place] [address] [place] [phone] Vle Vinson M.D., M.B.A. [address] [place] [phone] 01/05/2024 10:15 AM FURNITURE REPAIR TECHNICIAN Appointment Department of Radiology, [facility], in [place], [place] [address] [place] [phone] Vel Vinson M.D., M.B.A. [address] [place] [phone] 01/05/2024 10:45 AM FURNITURE REPAIR TECHNICIAN Comprehensive Visit Section of Infectious Diseases in [place], [place] [address] [place] [phone] Maddy Bingham P.A.-C. [address] [place] [phone] 01/05/2024 11:15 AM FURNITURE REPAIR TECHNICIAN Office Visit Department of Orthopedic Surgery in [place], [place] [address] [place] [phone] Vel Vinson M.D., M.B.A. [address] [place] [phone] 01/05/2024 2:30 PM FURNITURE REPAIR TECHNICIAN Comprehensive Visit Preoperative Evaluation Center in [place], [place] [address] [place] [phone] Vel Vinson M.D., M.B.A. [address] [place] [phone] 01/06/2024 7:25 AM FURNITURE REPAIR TECHNICIAN Hospital Encounter [facility] 02 4 AM ADMIT [address] [place] [phone] Vel Vinson M.D., M.B.A. [address] [place] [address] 01/06/2024 7:25 AM FURNITURE REPAIR TECHNICIAN - 01/06/2024 12:11 PM FURNITURE REPAIR TECHNICIAN Surgery [facility] MAIN OR [address] [place] [address] Vel Vinson M.D., M.B.A. [address] [place] [phone] ARTHROPLASTY REVISION FEMORAL+ACETABULAR HIP Scheduled Orders Name Type Priority Associated Diagnoses Orde r Schedule Hepatic Function Panel Lab Routine Infection Total Hip Arthroplasty Subsequent Right Expected: 12/02/2023, Expires: 12/08/2024 Scheduled Procedures Name Priority Associated Diagnoses Date/Ti me ARTHROPLASTY REVISION FEMORAL+ACETABULAR HIP Infection Total Hip Arthroplasty Subsequent Right 01/06/2024 7:25 AM FURNITURE REPAIR TECHNICIAN documented as of this encounter Visit Diagnoses Diagnosis Infection 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 Total Hip Arthroplasty Subsequent Right documented in this encounter Care Teams Plastics Design Engineer Relationship Specialty Start Date End Date Doug Lima M.D. [address] [place] [phone] PCP - General Family Medicine 01/28/17 10/02/23 documented as of this encounter
--- OUTSIDE RECORDS SUMMARY | 2023-12-29 13:08 | XMS_ITS ---
Author Organization [facility] Address [address] [place] [address] Care Team Providers Care Cripple Worker Name Role Phone Elsewhere, Pcp Primary Care Provider Unavailabl e OPAT Status:Pending (Paused) Start date:05/27/2023 Enrollment date:06/06/2023 Related service episodes:Adult OPAT Service Episode (Declined) Continued Care and Services Coordination
--- OUTSIDE RECORDS SUMMARY | 2023-12-29 13:08 | XMS_ITS | Encounter Summary ---
Author Organization [facility] Address [address] [place] [address] Care Team Providers Care Sliding Joint Maker Name Role Phone Elsewhere, Pcp Primary Care Provider Unavailabl e Reason for Referral * Outpatient (Routine) - Authorized Specialty Diagnoses / Procedures Referred By Tammi basilio Referred To Contact Neurology Balbir Maradiaga M.D. [address] [place] [address] Phone: tel: fax: [facility] Referral ID Status Reason Start Date Expiration Date V isits Requested Visits Authorized [id number] Authorized 10/03/2023 04/03/2025 1 1 Scheduling Instructions Please schedule for after electroencephalogram in May of 2024 * Outpatient (Routine) - Authorized Specialty Diagnoses / Procedures Referred By Contac t Referred To Contact Diagnoses Seizure (HCC) Procedures EEG routine - awake and sleep Balbir Maradiaga M.D. [address] [place] [address] Phone: tel: fax: [facility] Referral ID Status Reason Start Date Expiration Date V isits Requested Visits Authorized [id number] Authorized 10/03/2023 10/02/2024 1 1 Reason for Visit * Outpatient (Routine) - Closed Specialty Diagnoses / Procedures Referred By Contac t Referred To Contact Neurology Diagnoses Stroke (HCC) Veronica Hill M.D., M.S. [address] [place] [address] Phone: tel: fax: [facility] Referral ID Status Reason Start Date Expiration Date Visits Re quested Visits Authorized [id number] Closed 06/25/2023 12/24/2024 1 1 Encounter Details Date Type Department Care Team (Latest Contact Info) Description 10/03/2023 1:00 PM CDT Comprehensive Visit Department of Neurology in [place], [place] [address] [place] [phone] Balbir Maradiaga M.D. [address] [place] [phone] Stroke Cerebrovascular Accident Personal History (Primary Dx); Seizure (HCC); Stenosis Carotid Artery Left Social History Tobacco Use Types Packs/Day Years Used Date Smoking Tobacco: Never Passive Smoke Exposure: Never Smokeless Tobacco: Never Alcohol Use Standard Drinks/Week Comments Never 2 (1 standard drink = 0.6 oz pur e alcohol) [facility] [employer] Answer Date Recorded In the past 12 months has [email or web address], gas, oil, or water [employer] threatened to shut off services in [...] PM CDT Legal Sex Male 6:41 AM PATTERN CLEANER Gender Identity Male 07/26/2022 1:32 PM [...] h is sister, Lor, sister Annamaria, and [id number], Ashutosh who help provide co- lateral history. Jaysonischarged from the hospital to a detention. He continues to work with physical therapy [...] proprioception on the right hemibody. Noneglect. Coordination: [id number] and oafc-bz-icua testing is normal on the left. ASSESSMENT [...] note. This patient was well known to [facility], he was a [...] stroke-like symptoms. [facility] at a [facility] receiving [facility] for stroke recovery. 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 [address] [place] [phone] 01/05/2024 10:15 AM PATTERN CLEANER Appointment Department of Radiology, [facility], in [place], [place] [address] [place] [phone] Vel Vinson M.D., M.B.A. [address] [place] [phone] 01/05/2024 10:45 AM PATTERN CLEANER Comprehensive Visit Section of Infectious Diseases in [place], [place] [address] [place] [phone] Maddy Bingham P.A.-C. [address] [place] [phone] 01/05/2024 11:15 AM PATTERN CLEANER Office Visit Department of Orthopedic Surgery in [address] [phone] Vel Vinson M.D., M.B.A. [address] [place] [phone] 01/05/2024 2:30 PM PATTERN CLEANER Comprehensive Visit Preoperative Evaluation Center in [place], [place] [address] [place] [phone] Vel Vinson M.D., M.B.A. [address] [place] [phone] 01/06/2024 7:25 AM PATTERN CLEANER Hospital Encounter [facility] 02 4 AM ADMIT [address] [place] [phone] Vel Vinson M.D., M.B.A. [address] [place] [phone] 01/06/2024 7:25 AM PATTERN CLEANER - 01/06/2024 12:11 PM PATTERN CLEANER Surgery [facility] MAIN OR [address] [place] [address] Vel Vinson M.D., M.B.A. [address] [place] [address] ARTHROPLASTY REVISION FEMORAL+ACETABULAR HIP Scheduled Orders Name Type Priority Associated Diagnoses Orde r Schedule EEG routine - awake and sleep Neurology Routine Seizure (HCC) Expected: 10/02/2024, Expires: 01/02/2025 Scheduled Procedures Name Priority Associated Diagnoses Date/Ti me ARTHROPLASTY REVISION FEMORAL+ACETABULAR HIP Infection Total Hip Arthroplasty Subsequent Right 01/06/2024 7:25 AM PATTERN CLEANER Scheduled Referrals Name Type Priority Associated Diagnoses Orde r Schedule Neurology office visit (clinic) Outpatient Referral Routine Expected: 10/02/2024, Expires: 01/02/2025 documented as of this encounter Visit Diagnoses Diagnosis Infection Total Hip Arthroplasty Subsequent Right- Primary Stroke Cerebrovascular Accident Personal History- Primary Seizure (HCC) 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
--- OUTSIDE RECORDS SUMMARY | 2023-12-29 13:08 | XMS_ITS | Encounter Summary ---
Author Organization [facility] Address [address] [place] [address] Care Team Providers Care Baggageman Name Role Phone Elsewhere, Pcp Primary Care Provider Unavailabl e Reason for Referral * Outpatient (Routine) - Closed Specialty Diagnoses / Procedures Referred By Contact Referred To Contact Gastroenterology and Hepatology Diagnoses Hemorrhage Gastrointestinal Procedures Gastroenterology and Hepatology - Gastroenterology eConsult Lul Galeas M.D. [address] [place] [phone] Phone: tel:[phone] fax:[phone] [place] [address] Referral ID Status Reason Start Date Expiration Date Visits Re quested Visits Authorized [id number] Closed 12/02/2023 12/01/2024 1 1 Reason for Visit * Reason Onset Date Comments Appt Request 12/02/2023 Encounter Details Date Type Department Care Team ([facility] st Contact Info) Description 12/02/2023 Clinical Communication RST HIM [address] [place] [phone] Lul Galeas M.D. [address] [place] [phone] Appt Request Social History Tobacco Use Types Packs/Day Years Used Date Smoking Tobacco: Never Passive Smoke Exposure: Never Smokeless Tobacco: Never Alcohol Use Standard Drinks/Week Comments Never 2 (1 standard drink = 0.6 oz pur e alcohol) [facility] Utilities Answer Date Recorded In the past 12 months has e [employer], gas, oil, or water company threatened to [...] your living situation today? I have a [facility] place to live 11/29/2023 Sex and Gender Information Value Date Recorded Sex Assigned at Male 07/26/2022 1:30 PM CDT Legal Sex Male 6:41 AM YOUTH DIRECTOR Gender Identity Male 07/26/2022 1:32 PM CDT Sexual Orientation Straight 07/26/2022 1: 32 PM CDT documented as of this encounter Plan of Treatment Upcoming Encounters Date Type Department Care Team (Latest Contact Info) Description 01/02/2024 11:30 AM YOUTH DIRECTOR Clinical Communication Virtual Review in [place], [place] 200 [place] [phone] 01/05/2024 9:20 AM YOUTH DIRECTOR Lab Department of Infusion Therapy in [place], [place] [address] [place] [phone] Vel Vinson M.D., M.B.A. [address] [place] [phone] 01/05/2024 10:15 AM YOUTH DIRECTOR Appointment Department of Radiology, [facility], in [place], [place] [address] [place] [phone] Vel Vinson M.D., M.B.A. [address] [place] [phone] 01/05/2024 10:45 AM YOUTH DIRECTOR Comprehensive Visit Section of Infectious Diseases in [address] [phone] Maddy Bingham P.A.-C. [address] [place] [phone] 01/05/2024 11:15 AM YOUTH DIRECTOR Office Visit Department of Orthopedic Surgery in [place], [place] [address] [place] [phone] Vel Vinson M.D., M.B.A. [address] [place] [phone] 01/05/2024 2:30 PM YOUTH DIRECTOR Comprehensive Visit Preoperative Evaluation Center in [place], [place] [address] [place] [phone] Vel Vinson M.D., M.B.A. [address] [place] [phone] 01/06/2024 7:25 AM YOUTH DIRECTOR Hospital Encounter [facility]ST [facility]I 02 4 AM ADMIT [address] [place] [address] Vel Vinson M.D., M.B.A. [address] [place] [phone] 01/06/2024 7:25 AM YOUTH DIRECTOR - 01/06/2024 12:11 PM YOUTH DIRECTOR Surgery RST RO MAIN OR [address] [place] [address] Vel Vinson M.D., M.B.A. [address] [place] [phone] ARTHROPLASTY REVISION FEMORAL+ACETABULAR HIP Scheduled Procedures Name Priority Associated Diagnoses Date/Ti me ARTHROPLASTY REVISION FEMORAL+ACETABULAR HIP Infection Total Hip Arthroplasty Subsequent Right 01/06/2024 7:25 AM YOUTH DIRECTOR documented as of this encounter Visit Diagnoses Diagnosis Infection Total Hip Arthroplasty Subsequent Right- Primary Hemorrhage Gastrointestinal- Primary Infection Total Hip Arthroplasty Subsequent Right documented in this encounter Care Teams Baggageman Relationship Specialty Start Date End Date Elsewhere, Pcp PCP - General Internal Medicine 10/03/23 documented as of this encounter
--- OUTSIDE RECORDS SUMMARY | 2023-12-29 13:08 | XMS_ITS | Encounter Summary ---
Author Organization [facility] Address [address] [place] [address] Care Team Providers Care Umbrella Tipper Name Role Phone Elsewhere, Pcp Primary Care Provider Unavailabl e Encounter Details Date Type Department Care Team (Latest Contact Info) Description 11/03/2023 Intake [facility] Social History Tobacco Use Types Packs/Day Years Used Date Smoking Tobacco: Never Passive Smoke Exposure: Never Smokeless Tobacco: Never Alcohol Use Standard Drinks/Week Comments Never 2 (1 standard drink = 0.6 oz pur e alcohol) [facility] Utilities Answer Date Recorded In the past 12 months has e electric, gas, oil, or water [employer] threatened to shut off services in your [...] PM CDT Legal Sex Male 6:41 AM STEEL BOX TOE INSERTER Gender Identity Male 07/26/2022 1:32 PM CDT Sexual Orientation Straight 07/26/2022 1: 32 PM CDT documented as of this encounter Plan of Treatment Upcoming Encounters Date Type Department Care Team (Latest Contact Info) Description 01/02/2024 11:30 AM STEEL BOX TOE INSERTER Clinical Communication Virtual Review in [place], [place] 200 [place] [phone] 01/05/2024 9:20 AM STEEL BOX TOE INSERTER Lab Department of Infusion Therapy in [place], [place] [address] [place] [phone] eVl Vinson M.D., M.B.A. [address] [place] [phone] 01/05/2024 10:15 AM STEEL BOX TOE INSERTER Appointment Department of Radiology, [facility], in [place], [place] [address] [place] [phone] Vel Vinson M.D., M.B.A. [address] [place] [phone] 01/05/2024 10:45 AM STEEL BOX TOE INSERTER Comprehensive Visit Section of Infectious Diseases in [place], [place] [address] [place] [phone] Maddy Bingham P.A.-C. [address] [place] [phone] 01/05/2024 11:15 AM STEEL BOX TOE INSERTER Office Visit Department of Orthopedic Surgery in [place], [place] [address] [place] [phone] Vel Vinson M.D., M.B.A. [address] [place] [phone] 01/05/2024 2:30 PM STEEL BOX TOE INSERTER Comprehensive Visit Preoperative Evaluation Center in [place], [place] [address] [place] [phone] Vel Vinson M.D., M.B.A. [address] [place] [phone] 01/06/2024 7:25 AM STEEL BOX TOE INSERTER Hospital Encounter [facility]ST RO[facility] 02 4 AM ADMIT [address] [place] [phone] Vel Vinson M.D., M.B.A. [address] [place] [phone] 01/06/2024 7:25 AM STEEL BOX TOE INSERTER - 01/06/2024 12:11 PM STEEL BOX TOE INSERTER Surgery RST RO MAIN OR [address] [place] [phone] Vel Vinson M.D., M.B.A. [address] [place] [phone] ARTHROPLASTY REVISION FEMORAL+ACETABULAR HIP Scheduled Procedures Name Priority Associated Diagnoses Date/Ti me ARTHROPLASTY REVISION FEMORAL+ACETABULAR HIP Infection Total Hip Arthroplasty Subsequent Right 01/06/2024 7:25 AM STEEL BOX TOE INSERTER documented as of this encounter Visit Diagnoses Not on filedocumented in this encounter Care Teams Umbrella Tipper Relationship Specialty Start Date End Date Elsewhere, Pcp PCP - General Internal Medicine 10/03/23 documented as of this encounter
--- OUTSIDE RECORDS SUMMARY | 2023-12-29 13:08 | XMS_ITS | Encounter Summary ---
Author Organization [facility] Address [address] [place] [address] Care Team Providers Care Teamsite Developer Name Role Phone Doug Lima M.D. Primary Care Provider + [phone] Encounter Details Date Type Department Care Team (Late st Contact Info) Description 10/01/2023 Abstract [place], [place] [address] [place] [address] Provider, Historical Social History Tobacco Use Types Packs/Day Years Used Date Smoking Tobacco: Never Passive Smoke Exposure: Never Smokeless Tobacco: Never Alcohol Use Standard Drinks/Week Comments Never 2 (1 standard drink = 0.6 oz pur e alcohol) [facility] Utilities Answer Date Recorded In the past 12 months has e [employer], gas, oil, or water [employer] threatened to shut off services in your [...] PM CDT Legal Sex Male 6:41 AM FLATBED STITCHER Gender Identity Male 07/26/2022 1:32 PM CDT Sexual Orientation Straight 07/26/2022 1: 32 PM CDT documented as of this encounter Plan of Treatment Upcoming Encounters Date Type Department Care Team (Latest Contact Info) Description 01/02/2024 11:30 AM FLATBED STITCHER Clinical Communication Virtual Review in [place], [place] [address] [place] [phone] 01/05/2024 9:20 AM FLATBED STITCHER Lab Department of Infusion Therapy in [place], [place] [address] [place] [phone] Vel Vinson M.D., M.B.A. [address] [place] [phone] 01/05/2024 10:15 AM FLATBED STITCHER Appointment Department of Radiology, [facility], in [place], [place] [address] [place] [address] Vel Vinson M.D., M.B.A. [address] [place] [phone] 01/05/2024 10:45 AM FLATBED STITCHER Comprehensive Visit Section of Infectious Diseases in [place], [place] [address] [place] [phone] Maddy Bingham P.A.-C. [address] [place] [phone] 01/05/2024 11:15 AM FLATBED STITCHER Office Visit Department of Orthopedic Surgery in [place], [place] [address] [place] [phone] Vel Vinson M.D., M.B.A. [address] [place] [phone] 01/05/2024 2:30 PM FLATBED STITCHER Comprehensive Visit Preoperative Evaluation Center in [place], [place] [address] [place] [phone] Vel Vinson M.D., M.B.A. [address] [place] [phone] 01/06/2024 7:25 AM FLATBED STITCHER Hospital Encounter [facility]ST [facility] 02 4 AM ADMIT [address] [place] [phone] Vel Vinson M.D., M.B.A. [address] [place] [phone] 01/06/2024 7:25 AM FLATBED STITCHER - 01/06/2024 12:11 PM FLATBED STITCHER Surgery [facility] MAIN OR [address] [place] [address] Vel Vinson M.D., M.B.A. [address] [place] [address] ARTHROPLASTY REVISION FEMORAL+ACETABULAR HIP Scheduled Procedures Name Priority Associated Diagnoses Date/Ti me ARTHROPLASTY REVISION FEMORAL+ACETABULAR HIP Infection Total Hip Arthroplasty Subsequent Right 01/06/2024 7:25 AM FLATBED STITCHER documented as of this encounter Visit Diagnoses Not on filedocumented in this encounter Care Teams Teamsite Developer Relationship Specialty Start Date End Date Doug Lima M.D. [address] [place] [phone] PCP - General Family Medicine 01/28/17 10/02/23 documented as of this encounter
--- OUTSIDE RECORDS SUMMARY | 2023-12-29 13:08 | XMS_ITS | Encounter Summary ---
Author Organization [facility] Address [address] [place] [address] Care Team Providers Care Rehab Nurse Name Role Phone Elsewhere, Pcp Primary Care Provider Unavailabl e Reason for Visit * Auth/Cert (Routine) Specialty Diagnoses / Procedures Referred By Tammi t Referred To Contact Diagnoses Anemia Hemorrhage Gastrointestinal Procedures ER Referral ID Status Reason Start Date Expiration Date Visits Re quested Visits Authorized [id number] 1 1 Encounter Details Date Type Department Care Team (Latest Contact Info) Description 12/02/2023 11:25 AM CDT Anesthesia Event Division of Gastroenterology in [place], [place] [address] [place] [phone] Jorge Del Rosario APRN, CRNA, DNAP [address] [place] [phone] Char Rudolph M.D. [address] [place] [address] Anesthesia Record Procedure Summary Procedure Name Responsible Anesthesiologist Anesthesia Start Time Anesthesia Stop Time COLONOSCOPY Jorge Del Rosario A PRN FRINGE KNOTTER, DNAP 12/02/23 1125 12/02/23 1220 Events Date Time Event Comment 12/02/2023 1125 An Start Machine/Equipme nt Checked Infection Precautions Followed Procedure/Site Verified NPO Status Verified Supine Standard ASA Monitors Applied 1131 Turnover to Proceduralist 1132 Proc Start 1204 Proc Fin 1205 Turnover to ANE Staff 1214 an stop data 1220 An End I completed my handoff to the receiving staff during which we 1. Identified the patient 2. Identified the responsible provider 3. Reviewed the pertinent medical history 4. Discussed the surgical course 5. Reviewed intra-op anesthesia management and issues during anesthesia 6. Set expectations for post-procedure period 7. Allowed opportunity for questions and acknowledgement of understanding. Meds Name Total lidocaine 2% (mg) injection 80 mg ondansetron PF 4 mg/2 mL injection 4 mg propofol 10 mg/mL injection 30 mg propofol 10 mg/mL infusion 231.91 mg ePHEDrine PF 5 mg/mL injection 25 mg phenylephrine 100 mcg/mL injection 400 m cg Lactated Ringers Free Drip 300 mL * Agents No agents on file. * Blood No blood administrations on file. Lines, Drains, and Airways Type Details Placement Removal Diabetes Device Right, Left; Arm; Family; Continuous blood glucose monitoring device; Freestyle Jessica 2 11/18/22 0909 by Wound 06/02/23; 1100; Incontinence; Perineum; Groin to Perirectal 06/02/23 1100 by Trell aMrques R.N., C.W.C.N. Peripheral IV Placement Date: 11/28/23; Placement Time: 1525; Existing LDA Placed by: EMS; Catheter Size: 20 G; Orientation: Left; Location: Antecubital; Removal Date: 12/03/23; Removal Time: 08; Removal Reason: Patient discharged 11/28/23 1525 by Cyndie Haywood RBelkisN. 12/03/23 0823 by Belia Sanders External Urinary Catheter 11/28/23; 1530; Male; 12/03/23; 0944 11/28/23 1530 by Cyndie Haywood R.N. 12/03/23 0944 by Eileen Amanda R.N. Peripheral IV Placement Date: 11/28/23; Placement Time: 1606; Catheter Size: 20 G; Orientation: Lower, Posterior, Right; Location: Forearm; Site Prep: Chlorhexidine (Preferred); Technique: Transillumination; Inserted by: TJ; Removal Date: 12/03/23; Removal Time: 08; Removal Reason: Patient discharged 11/28/23 1606 by Joss Alva R.N. 12/03/23 0841 by Belia Sanders documented in this encounter Social History Tobacco Use Types Packs/Day Years Used Date Smoking Tobacco: Never Passive Smoke Exposure: Never Smokeless Tobacco: Never Alcohol Use Standard Drinks/Week Comments Never 2 (1 standard drink = 0.6 oz pur e alcohol) [facility] Utilities Answer Date Recorded In the past 12 months has th e [employer], gas, oil, or water company threatened to [...] living situation today? I have a [facility] place to live 11/29/2023 Sex and Gender Information Value Date Recorded Sex Assigned at Male 07/26/2022 1:30 PM CDT Legal Sex Male 6:41 AM PATTERN LEASE INSPECTOR Gender Identity Male 07/26/2022 1:32 PM CDT Sexual Orientation Straight 07/26/2022 1: 32 PM CDT documented as of this encounter OR Notes * Anesthesia Postprocedure Evaluation - Jorge Del Rosario APRN, CRNA, DNAP - 12/02/2023 12:22 PM CDT Patient: Estevan Lester Procedure Summary Date: 12/02/23 Room / Location: Division of Gastroenterology in [place], [place] Anesthesia Start: 1125 Anesthesia Stop: 1220 Procedure: COLONOSCOPY Diagnosis: Scheduled Providers: Jorge Del Rosario APRN, CRNA, DNAP Responsible Provider: Jorge Del Rosario APRN, CRNA, DNAP Anesthesia Type: MAC ASA Status: 3 Anesthesia Type: MAC Last vitals Vitals Value Taken Time BP 119/64 12/02/23 1220 Temp 36.6 ??C 12/02/23 1218 Pulse 50 12/02/23 1221 Resp 17 12/02/23 1221 SpO2 100 % 12/02/23 1221 Vitals shown include unfiled device data. Please reference Vitals flowsheet for most recent vital signs. Anesthesia Post Evaluation Patient Disposition: general care unit Cardiovascular status: hemodynamics (HR & BP) acceptable Respiratory status: patent airway with spontaneous effort Temperature: normothermic Oxygen requirements: room air Level of consciousness: awake Pain score: pain adequately controlled and/or at baseline Post Op nausea/vomiting: none Hydration status: euvolemic Notable Events No notable events documented. * Anesthesia Preprocedure Evaluation - Jorge Del Rosario APRN, CRNA, DNAP - 12/02/2023 11:33 AM CDT Preprocedure Anesthesia & H&P Assessment Procedure Summary Anesthesia Start Date/Time: 12/02/23 1125 Scheduled providers: Jorge Del Rosario APRN, CRNA, DNAP Procedure: COLONOSCOPY Location: Division of Gastroenterology in [place], [place] Pertinent components of the patient's history including current problem list, medical history, surgical history, family history, social history, medications and allergies were reviewed. Present illness and pre-op diagnosis were confirmed. The planned surgery / procedure was verified with the patient / legal guardian. The patient's general health condition remains unchanged RELEVANT COMORBID CONDITIONS CV (+) Hypertension Essential Primary (+) Peripheral Arterial Disease (HCC) ENDO (+) Diabetes Mellitus Type 2 Ulcer Foot (HCC) NEURO (+) Occlusion Carotid Artery Left (+) Stenosis Carotid Artery Right (+) Stroke (HCC) (+) Transient Ischemic Attack Other (+) Obesity Body Mass Index 30-39.9 Adult OBJECTIVE PHYSICAL EXAMINATION Airway (HEENT) Mallampati: I TM Distance: >3 FB Neck ROM: Full Mouth Opening: >3 cm Cardiovascular Rhythm: Regular Rate: Normal Cardiovascular Assessment: cardiovascular normal Functional Capacity: <4 METS Pulmonary Pulmonary Assessment: Clear General / Constitutional Constitutional Assessment: Normal General State of Health:: ill appearing Neurological Neurologic Assessment: alert, alert and oriented x 3 and cognitive deficit Dental Dental Assessment: dentition intact Abdomen Normal Musculoskeletal Normal Skin Normal ASSESSMENT / PLAN ANESTHESIA PLAN ASA: 3 Anesthesia Plan: MAC Patient seen and allergies reviewed, anesthesia plan and risks discussed directly with patient /legal guardian or through an deaf interpreter. Risks/Benefits/Alternatives of Blood transfusion discussed with patient / legal guardian, includingan opportunity to ask questions and/or decline some or all transfusion therapies. The patient / legal guardian consented to the use of all blood products, as deemed medically necessary Approval to Proceed: approved for anesthesia documented in this encounter Plan of Treatment Upcoming Encounters Date Type Department Care Team (Latest Contact Info) Description 01/02/2024 11:30 AM PATTERN LEASE INSPECTOR Clinical Communication Virtual Review in [address] [phone] 01/05/2024 9:20 AM PATTERN LEASE INSPECTOR Lab Department of Infusion Therapy in [place], [place] [address] [place] [phone] Vel Vinson M.D., M.B.A. [address] [place] [phone] 01/05/2024 10:15 AM PATTERN LEASE INSPECTOR Appointment Department of Radiology, [facility], in [place], [place] [address] [place] [phone] Vel Vinson M.D., M.B.A. [address] [place] [phone] 01/05/2024 10:45 AM PATTERN LEASE INSPECTOR Comprehensive Visit Section of Infectious Diseases in [place], [place] [address] [place] [phone] Maddy Bingham P.A.-C. [address] [place] [phone] 01/05/2024 11:15 AM PATTERN LEASE INSPECTOR Office Visit Department of Orthopedic Surgery in [place], [place] [address] [place] [phone] Vel Vinson M.D., M.B.A. [address] [place] [address] [phone] 01/05/2024 2:30 PM PATTERN LEASE INSPECTOR Comprehensive Visit Preoperative Evaluation Center in [place], [place] [address] [place] [phone] Vel Vinson M.D., M.B.A. [address] [place] [phone] 01/06/2024 7:25 AM PATTERN LEASE INSPECTOR Hospital Encounter RST [facility] 02 4 AM ADMIT [address] [place] [phone] Vel Vinson M.D., M.B.A. [address] [place] [address] 01/06/2024 7:25 AM PATTERN LEASE INSPECTOR - 01/06/2024 12:11 PM PATTERN LEASE INSPECTOR Surgery [facility] MAIN OR [address] [place] [address] Vel Vinson M.D., M.B.A. [address] [place] [address] ARTHROPLASTY REVISION FEMORAL+ACETABULAR HIP Scheduled Procedures Name Priority Associated Diagnoses Date/Ti me ARTHROPLASTY REVISION FEMORAL+ACETABULAR HIP Infection Total Hip Arthroplasty Subsequent Right 01/06/2024 7:25 AM PATTERN LEASE INSPECTOR documented as of this encounter Visit Diagnoses Not on filedocumented in this encounter Administered Medications Inactive Administered Medications - up to 3 most recent administrations Medication Order MAR Action Action Date Dose Rate Site ePHEDrine (PF) injection intravenous, As needed, Starting on Fri12/02/23 at 1141, Anesthesia Intra-op Given 12/02/2023 11:56 AM CDT 5 mg Given 12/02/2023 11:50 AM CDT 10 mg Given 12/02/2023 11:41 AM CDT 10 mg Lactated Ringer's intravenous, Continuous Infusion: Per Instructions PRN, Starting on Fri12/02/23 at 1131, Anesthesia Intra-op New Bag 12/02/2023 11:31 AM CDT lidocaine (PF) (cardiac) injection intravenous, As needed, Starting on Fri12/02/23 at 1129, Anesthesia Intra-op Given 12/02/2023 11:29 AM CDT 80 mg ondansetron (PF) injection (Zofran) intravenous, As needed, Starting on Fri12/02/23 at 1131, Anesthesia Intra-op Given 12/02/2023 11:31 AM CDT 4 mg phenylephrine injection intravenous, As needed, Starting on Fri12/02/23 at 1152, Anesthesia Intra-op Given 12/02/2023 12:11 PM CDT 100 m cg Given 12/02/2023 11:56 AM CDT 200 mcg Given 12/02/2023 11:52 AM CDT 100 mcg propofol 10 mg/mL infusion (Diprivan) intravenous, Continuous Infusion: Per Instructions PRN, Starting on Fri12/02/23 at 1129, Anesthesia Intra-op Rate/Dose Change 12/02/2023 11:50 AM CDT 50 mcg/kg/min 28.11 mL/hr Rate/Dose Change 12/02/2023 11:39 AM CDT 75 mcg/kg/min 42. 165 mL/hr New Bag 12/02/2023 11:29 AM CDT 100 mcg/kg/min 56.22 mL /hr propofoL injection (Diprivan) intravenous, As needed, Starting on Fri12/02/23 at 1129, Anesthesia Intra-op Given 12/02/2023 11:29 AM CDT 30 mg documented in this encounter Care Teams Rehab Nurse Relationship Specialty Start Date End Date Elsewhere, Pcp PCP - General Internal Medicine 10/03/23 documented as of this encounter
--- OUTSIDE RECORDS SUMMARY | 2023-12-29 13:08 | XMS_ITS | Encounter Summary ---
Author Organization [facility] Address [address] [place] [address] Care Team Providers Care Foreign Collection Clerk Name Role Phone Doug Lima M.D. Primary Care Provider + [phone] Encounter Details Date Type Department Care Team (Latest Contact Info) Description 09/24/2023 2:45 PM CDT Clinical Communication Virtual Review in [place], [place] [address] [place] [phone] Social History Tobacco Use Types Packs/Day Years Used Date Smoking Tobacco: Never Passive Smoke Exposure: Never Smokeless Tobacco: Never Tobacco Cessation:Counseling Given: Not Answered Alcohol Use Standard Drinks/Week Comments Never 2 (1 standard drink = 0.6 oz pur e alcohol) [facility] Utilities Answer Date Recorded In the past 12 months has e [employer], gas, oil, or water [employer] threatened to shut off services in your [...] PM CDT Legal Sex Male 6:41 AM CAR COOPER Gender Identity Male 07/26/2022 1:32 PM CDT Sexual Orientation Straight 07/26/2022 1: 32 PM CDT documented as of this encounter Plan of Treatment Upcoming Encounters Date Type Department Care Team (Latest Contact Info) Description 01/02/2024 11:30 AM CAR COOPER Clinical Communication Virtual Review in [place], [place] [address] [place] [address] 01/05/2024 9:20 AM CAR COOPER Lab Department of Infusion Therapy in [place], [place] [address] [place] [phone] Vel Vinson M.D., M.B.A. [address] [place] [phone] 01/05/2024 10:15 AM CAR COOPER Appointment Department of Radiology, [facility], in [place], [place] [address] [place] [address] Vel Vinson M.D., M.B.A. [address] [place] [phone] 01/05/2024 10:45 AM CAR COOPER Comprehensive Visit Section of Infectious Diseases in [place], [place] [address] [place] [phone] Maddy Bingham P.A.-C. [address] [place] [phone] 01/05/2024 11:15 AM CAR COOPER Office Visit Department of Orthopedic Surgery in [place], [place] [address] [place] [phone] Vel Vinson M.D., M.B.A. [address] [place] [phone] 01/05/2024 2:30 PM CAR COOPER Comprehensive Visit Preoperative Evaluation Center in [place], [place] [address] [place] [phone] Vel Vinson M.D., M.B.A. [address] [place] [phone] 01/06/2024 7:25 AM CAR COOPER Hospital Encounter [facility] 02 4 AM ADMIT [address] [place] [phone] Vel Vinson M.D., M.B.A. [address] [place] [phone] 01/06/2024 7:25 AM CAR COOPER - 01/06/2024 12:11 PM CAR COOPER Surgery [facility] MAIN OR [address] [place] [address] Vel Vinson M.D., M.B.A. [address] [place] [address] ARTHROPLASTY REVISION FEMORAL+ACETABULAR HIP Scheduled Procedures Name Priority Associated Diagnoses Date/Ti me ARTHROPLASTY REVISION FEMORAL+ACETABULAR HIP Infection Total Hip Arthroplasty Subsequent Right 01/06/2024 7:25 AM CAR COOPER documented as of this encounter Visit Diagnoses Not on filedocumented in this encounter Care Teams Foreign Collection Clerk Relationship Specialty Start Date End Date Doug Lima M.D. [address] [place] [phone] PCP - General Family Medicine 01/28/17 10/02/23 documented as of this encounter
--- OUTSIDE RECORDS SUMMARY | 2023-12-29 13:08 | XMS_ITS | Encounter Summary ---
Author Organization [facility] Address [address] [place] [address] Care Team Providers Care Stone Lathe Operator Name Role Phone Elsewhere, Pcp Primary Care Provider Unavailabl e Encounter Details Date Type Department Care Team (Latest Contact Info) Description 12/02/2023 11:10 AM CDT Ancillary Procedure Department of Gastroenterology Social History Tobacco Use Types Packs/Day Years Used Date Smoking Tobacco: Never Passive Smoke Exposure: Never Smokeless Tobacco: Never Alcohol Use Standard Drinks/Week Comments Never 2 (1 standard drink = 0.6 oz pur e alcohol) [facility] Utilities Answer Date Recorded In [...] your living situation today? I have a [facility] place to live 11/29/2023 Sex and Gender Information Value Date Recorded Sex Assigned at Male 07/26/2022 1:30 PM CDT Legal Sex Male 6:41 AM TREATER Gender Identity Male 07/26/2022 1:32 PM CDT Sexual Orientation Straight 07/26/2022 1: 32 PM CDT documented as of this encounter Plan of Treatment Upcoming Encounters Date Type Department Care Team (Latest Contact Info) Description 01/02/2024 11:30 AM TREATER Clinical Communication Virtual Review in [place], [place] [address] [place] [phone] 01/05/2024 9:20 AM TREATER Lab Department of Infusion Therapy in [place], [place] [address] [place] [phone] Vel Vinson M.D., M.B.A. [address] [place] [phone] 01/05/2024 10:15 AM TREATER Appointment Department of Radiology, [facility], in [place], [place] [address] [place] [phone] Vel Vinson M.D., M.B.A. [address] [place] [phone] 01/05/2024 10:45 AM TREATER Comprehensive Visit Section of Infectious Diseases in [place], [place] [address] [place] [address] Maddy Bingham P.A.-C. [address] [place] [phone] 01/05/2024 11:15 AM TREATER Office Visit Department of Orthopedic Surgery in [place], [place] [address] [place] [phone] Vel Vinson M.D., M.B.A. [address] [place] [phone] 01/05/2024 2:30 PM TREATER Comprehensive Visit Preoperative Evaluation Center in [place], [place] [address] [place] [address] Vel Vinson M.D., M.B.A. [address] [place] [phone] 01/06/2024 7:25 AM TREATER Hospital Encounter [facility] 02 4 AM ADMIT [address] [place] [address] Vel Vinson M.D., M.B.A. [address] [place] [phone] 01/06/2024 7:25 AM TREATER - 01/06/2024 12:11 PM TREATER Surgery [facility] MAIN OR [address] [place] [phone] Vel Vinson M.D., M.B.A. [address] [place] [phone] ARTHROPLASTY REVISION FEMORAL+ACETABULAR HIP Scheduled Procedures Name Priority Associated Diagnoses Date/Ti me ARTHROPLASTY REVISION FEMORAL+ACETABULAR HIP Infection Total Hip Arthroplasty Subsequent Right 01/06/2024 7:25 AM TREATER documented as of this encounter Procedures Procedure Name Priority Date/Time Associated Diagnosis Comments GASTROENTEROLOGY IMAGE EXAM Routine 12/02/2023 11:10 AM CDT documented in this encounter Results * Colon, Splenic flexure Colonoscopy-Gastroenterology Image Exam [...] NON RAD IMAGING PROCE DURES Final Result IIMS NA documented in this encounter Visit Diagnoses Not on filedocumented in this encounter Care Teams Stone Lathe Operator Relationship Specialty Start Date End Date Elsewhere, Pcp PCP - General Internal Medicine 10/03/23 documented as of this encounter
--- OUTSIDE RECORDS SUMMARY | 2023-12-29 13:08 | XMS_ITS | Encounter Summary ---
Author Organization [facility] Address [address] [place] [address] Care Team Providers Care Staff Training And Development Manager Name Role Phone Doug Lima M.D. Primary Care Provider + [phone] Encounter Details Date Type Department Care Team (Late st Contact Info) Description 08/27/2023 Clinical Communication Department of Neurologic Surgery in [place], [place] [address] [place] [address] Fantasma Butt M.D. [address] [place] [address] Social History Tobacco Use Types Packs/Day Years Used Date Smoking Tobacco: Never Passive Smoke Exposure: Never Smokeless Tobacco: Never Alcohol Use Standard Drinks/Week Comments Never 2 (1 standard drink = 0.6 oz pur e alcohol) [facility] Utilities Answer Date Recorded In the past 12 months has [employer] gas, oil, or water [employer] threatened to shut off services in your [...] PM CDT Legal Sex Male 6:41 AM WOOD ROOM SUPERVISOR Gender Identity Male 07/26/2022 1:32 PM CDT Sexual Orientation Straight 07/26/2022 1: 32 PM CDT documented as of this encounter Plan of Treatment Upcoming Encounters Date Type Department Care Team (Latest Contact Info) Description 01/02/2024 11:30 AM WOOD ROOM SUPERVISOR Clinical Communication Virtual Review in [place], [place] [address] [place] [address] 01/05/2024 9:20 AM WOOD ROOM SUPERVISOR Lab Department of Infusion Therapy in [place], [place] [address] [place] [phone] Vel Vinson M.D., M.B.A. [address] [place] [phone] 01/05/2024 10:15 AM WOOD ROOM SUPERVISOR Appointment Department of Radiology, [facility], in [place], [place] [address] [place] [phone] Vel Vinson M.D., M.B.A. [address] [place] [phone] 01/05/2024 10:45 AM WOOD ROOM SUPERVISOR Comprehensive Visit Section of Infectious Diseases in [place], [place] [address] [place] [phone] Maddy Bingham P.A.-C. [address] [place] [phone] 01/05/2024 11:15 AM WOOD ROOM SUPERVISOR Office Visit Department of Orthopedic Surgery in [place], [place] [address] [place] [phone] Vel Vinson M.D., M.B.A. [address] [place] [phone] 01/05/2024 2:30 PM WOOD ROOM SUPERVISOR Comprehensive Visit Preoperative Evaluation Center in [place], [place] [address] [place] [phone] Vel Vinson M.D., M.B.A. [address] [place] [phone] 01/06/2024 7:25 AM WOOD ROOM SUPERVISOR Hospital Encounter [facility] 02 4 AM ADMIT [address] [place] [phone] Vel Vinson M.D., M.B.A. [address] [place] [address] 01/06/2024 7:25 AM WOOD ROOM SUPERVISOR - 01/06/2024 12:11 PM WOOD ROOM SUPERVISOR Surgery [facility] MAIN OR [address] [place] [address] Vel Vinson M.D., M.B.A. [address] [place] [address] ARTHROPLASTY REVISION FEMORAL+ACETABULAR HIP Scheduled Procedures Name Priority Associated Diagnoses Date/Ti me ARTHROPLASTY REVISION FEMORAL+ACETABULAR HIP Infection Total Hip Arthroplasty Subsequent Right 01/06/2024 7:25 AM WOOD ROOM SUPERVISOR documented as of this encounter Visit Diagnoses Not on filedocumented in this encounter Care Teams Staff Training And Development Manager Relationship Specialty Start Date End Date Doug Lima M.D. [address] [place] [phone] PCP - General Family Medicine 01/28/17 10/02/23 documented as of this encounter
--- OUTSIDE RECORDS SUMMARY | 2023-12-29 13:08 | XMS_ITS | Encounter Summary ---
Author Organization [facility] Address [address] [place] [address] Care Team Providers Care Machine Paint Mixer Name Role Phone Elsewhere, Pcp Primary Care Provider Unavailabl e Encounter Details Date Type Department Care Team (Late st Contact Info) Description 10/21/2023 Clinical Communication Department of Orthopedic Surgery in [place], [place] [address] [place] [address] Vel Vinson M.D., M.B.A. [address] [place] [address] Social History Tobacco Use Types Packs/Day Years Used Date Smoking Tobacco: Never Passive Smoke Exposure: Never Smokeless Tobacco: Never Alcohol Use Standard Drinks/Week Comments Never 2 (1 standard drink = 0.6 oz pur e alcohol) [facility] Utilities Answer Date Recorded In the past 12 months has [facility] [email or web address], gas, oil, or water [employer] threatened to shut off services in your [...] PM CDT Legal Sex Male 6:41 AM SURVEY WORKERS SUPERVISOR Gender Identity Male 07/26/2022 1:32 PM CDT Sexual Orientation Straight 07/26/2022 1: 32 PM CDT documented as of this encounter Plan of Treatment Upcoming Encounters Date Type Department Care Team (Latest Contact Info) Description 01/02/2024 11:30 AM SURVEY WORKERS SUPERVISOR Clinical Communication Virtual Review in [place] [address] [place] [address] 01/05/2024 9:20 AM SURVEY WORKERS SUPERVISOR Lab Department of Infusion Therapy in [place], [place] [address] [place] [phone] Vel Vinson M.D., M.B.A. [address] [place] [phone] 01/05/2024 10:15 AM SURVEY WORKERS SUPERVISOR Appointment Department of Radiology, [facility], in [place], [place] [address] [place] [phone] Vel Vinson M.D., M.B.A. [address] [place] [phone] 01/05/2024 10:45 AM SURVEY WORKERS SUPERVISOR Comprehensive Visit Section of Infectious Diseases in [place], [place] [address] [place] [phone] Maddy Bingham P.A.-C. [address] [place] [phone] 01/05/2024 11:15 AM SURVEY WORKERS SUPERVISOR Office Visit Department of Orthopedic Surgery in [place], [place] [address] [place] [phone] Vel Vinson M.D., M.B.A. [address] [place] [phone] 01/05/2024 2:30 PM SURVEY WORKERS SUPERVISOR Comprehensive Visit Preoperative Evaluation Center in [place], [place] [address] [place] [phone] Vel Vinson M.D., M.B.A. [address] [place] [phone] 01/06/2024 7:25 AM SURVEY WORKERS SUPERVISOR Hospital Encounter [facility] 02 4 AM ADMIT [address] [place] [phone] Vel Vinson M.D., M.B.A. [address] [place] [phone] 01/06/2024 7:25 AM SURVEY WORKERS SUPERVISOR - 01/06/2024 12:11 PM SURVEY WORKERS SUPERVISOR Surgery [facility] MAIN OR [address] [place] [address] Vle Vinson M.D., M.B.A. [address] [place] [address] ARTHROPLASTY REVISION FEMORAL+ACETABULAR HIP Scheduled Procedures Name Priority Associated Diagnoses Date/Ti me ARTHROPLASTY REVISION FEMORAL+ACETABULAR HIP Infection Total Hip Arthroplasty Subsequent Right 01/06/2024 7:25 AM SURVEY WORKERS SUPERVISOR documented as of this encounter Visit Diagnoses Diagnosis Infection 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 Total Hip Arthroplasty Subsequent Right documented in this encounter Care Teams Machine Paint Mixer Relationship Specialty Start Date End Date Elsewhere, Pcp PCP - General Internal Medicine 10/03/23 documented as of this encounter
== END 2023-12-29 13:04 | disposition home or self-care (01) ==
LOC: LAB 13:03
PROVIDERS: PCP Family Medicine; Visit Provider Nurse Practitioner Gerontology
DX: D64.9 Anemia, unspecified (principal)
CPT/HCPCS: 36415; 85018

== ENCOUNTER 2024-01-15 04:04 | Outpatient (CLI) | payer OTHER, SELFPAY | END 2024-01-15 04:05 | disposition home or self-care (01) | LOC: AMB 01-29 00:44 | PROVIDERS: PCP Family Medicine; Visit Provider Family Medicine | DX: S79.911A Unspecified injury of right hip, initial encounter (principal); W18.30XA Fall on same level, unspecified, initial encounter; Y92.193 Bedroom in other specified residential institution as the place of occurrence of the external cause | CPT/HCPCS: A0425; A0427 ==

== ENCOUNTER 2024-01-22 16:26 | Outpatient (REF) | payer OTHER, SELFPAY ==
--- OUTSIDE RECORDS SUMMARY | 2024-01-22 16:31 | XMS_ITS | Clinical Summary ---
Author Organization [employer] [facility] Address [place], [place] [address] Care Team Providers Care Tunnel Mucker Name Role Phone Monty Hernandez MD Primary Care Provider [phone] Allergies No known active allergies Medications Medication [...] Encounters Date Type Department Care Team Description 01/12/20 24 Lab Requisition [facility] [phone] Pauline Mcbride NP 12/19/19 24 Lab Requisition [facility] [phone] William Edwards MD 12/04/19 24 Lab Requisition [facility] [phone] Pauline Mcbride NP 11/21/19 24 Lab Requisition [facility] [phone] Pauline Mcbride NP 11/15/19 24 Lab Requisition [facility] [phone] Pauline Mcbride NP 11/07/19 Lab Requisition [facility] [phone] William Edwards MD 11/03/19 1:45 PM CDT - 11/03/19 2:10 PM CDT Surgery [facility] [address] [place] [address] Gino Kern MD ESOPHAGOGASTRODUODENOSCOPY 11/03/19 7:49 AM CDT - 11/07/19 11:20 AM CDT Hospital Encounter [facility] [address] [place] [address] Sierra Salazar MD [facility], Sreedhar Arriola MD [facility], Julianne Davidson MD [facility], [facility] Gastrointestinal hemorrhage, unspecified gastrointestinal hemorrhage type (Primary Dx); Constipation, unspecified constipation type Discharge Disposition: Snf Facility 11/03/19 Orders Only [facility] Scanner 1 scan: (1-Ord) [place], CT ANGIO ABD PEL GI BLEED, 11/03/2023 10/27/19 Lab Requisition [facility] [phone] Pauline Mcbride NP from Last 3 Months [...] 62 11/07/2023 7:53 AM CDT Temperature 36.6 C (97.9 F) 11/07/2023 7:53 AM CDT Respiratory Rate 18 11/07/2023 7:53 AM CDT [...] Associated Diagnosis Comments RED CELL MORPHOLOGY Routine 01/13/2024 7:30 AM CRM COORDINATOR Anemia, unspecified PLATELET ESTIMATE Routine 01/13/2024 7:30 AM CRM COORDINATOR Anemia, unspecified MANUAL DIFFERENTIAL Routine 01/13/2024 7:30 AM CRM COORDINATOR Anemia, unspecified CBC WITH AUTO DIFFERENTIAL Routine 01/12 7:30 AM CRM COORDINATOR Anemia, unspecified CBC WITH AUTO DIFFERENTIAL Routine 01/12 7:30 AM CRM COORDINATOR Anemia, unspecified HEPATIC FUNCTION PANEL Routine 7:43 AM CRM COORDINATOR Anemia, unspecified Elevation of levels of liver transaminase levels Type 2 diabetes mellitus without complications (HC) BASIC METABOLIC PANEL Routine 12/23/2023 7:43 AM CRM COORDINATOR Anemia, unspecified Elevation of levels of liver transaminase levels Type 2 diabetes mellitus without complications (HC) HEMOGLOBIN A1C Routine 12/23/2023 7:43 AM CRM COORDINATOR Anemia, unspecified Elevation of levels of liver transaminase levels Type 2 diabetes mellitus without complications (HC) GAMMA GT Routine 12/23/2023 7:43 AM CRM COORDINATOR Anemia, unspecified Elevation of levels of liver transaminase levels Type 2 diabetes mellitus without complications (HC) HEMOGLOBIN Routine 12/23/2023 7:43 AM CRM COORDINATOR Anemia, unspecified Elevation of levels of liver [...] STAT 11/03/2023 9:34 AM CDT SCAN-CT INTERPRETATION 4 12:00 AM CDT HEPATIC FUNCTION PANEL Routine 4 7:30 AM CDT Abnormal levels of other serum enzymes GAMMA GT Routine 10/28/2023 7:30 AM CDT Abnormal levels of other serum enzymes LIPID PANEL Routine 09/23/2023 7:41 AM CDT Essential (primary) hypertension Elevation of levels of liver transaminase levels from Last 3 Months or Most Recently Relevant to Health Maintenance Results * (ABNORMAL) CBC WITH AUTO DIFFERENTIAL (01/13/2024 7:30 AM CRM COORDINATOR) Only the most recent of4 resultswithin the time period is included. WHITE BLOOD COUNT 12.3(H) 4.5 - 11.0 thou/cu mm 01/13/2024 11:01 AM CRM COORDINATOR [facility] RED BLOOD COUNT 2.56(L) 4.30 - 5.90 mil/cu mm 01/13/2024 11:01 AM CRM COORDINATOR [facility] HEMOGLOBIN 7.7(L) 13.5 - 17.5 g/dL 01/13/2024 11:01 AM [facility] HEMATOCRIT 24.6(L) 37.0 - 53.0 % 01/13/2024 11:01 AM [facility] MCV 96 80 - 100 fL 01/13/2024 11:01 AM [facility] MCH 30.1 26.0 - 34.0 pg 01/13/2024 11:01 AM [facility] MCHC 31.3(L) 32.0 - 36.0 g/dL 01/13/2024 11:01 AM [facility] RDW 13.9 11.5 - 15.5 % 01/13/2024 11:01 AM [facility] PLATELET COUNT 261 140 - 440 thou/cu mm 01/13/2024 11:01 AM [facility] MPV 10.5 6.5 - 11.0 fL 01/13/2024 11:01 AM [facility] Blood BLOOD SPECIMEN / Unknown Venipuncture / Unknown 01/13/2024 7:30 AM CRM COORDINATOR 01/13/2024 9:43 AM CRM COORDINATOR Pauline Mcbride NP HEMATOLOGY [facility] [address] [place] [address] * (ABNORMAL) RED CELL MORPHOLOGY (01/13/2024 7:30 AM CRM COORDINATOR) Only the most recent of3 resultswithin the time period is included. Pathologist Marina ALMANZATOCYTJEREMY Few 01/13/2024 11:01 AM [facility] RBC COMMENT Present(A ) RBC morphology appears normal, RBC morphology within normal limits for newborns. 01/13/2024 11:01 AM [facility] Blood BLOOD SPECIMEN / Unknown Venipuncture / Unknown 01/13/2024 7:30 AM CRM COORDINATOR 01/13/2024 9:43 AM CRM COORDINATOR Pauline Mcbride NP HEMATOLOGY [facility] [address] [place] [address] * (ABNORMAL) PLATELET ESTIMATE (01/13/2024 7:30 AM CRM COORDINATOR) Only the most recent of3 resultswithin the time period is included. PLATELET ESTIMATE Platelets are clumped and appear adequate in number(A) Adequate, No estimate 01/13/2024 11:01 AM [facility] Blood BLOOD SPECIMEN / Unknown Venipuncture / Unknown 01/13/2024 7:30 AM CRM COORDINATOR 01/13/2024 9:43 AM CRM COORDINATOR Pauline Mcbride NP HEMATOLOGY [facility] [address] [place] [address] * (ABNORMAL) MANUAL DIFFERENTIAL (01/13/2024 7:30 AM CRM COORDINATOR) Only the most recent of3 resultswithin the time period is included. [facility] % NEUTROPHILS 69.0 % 01/13/2024 11:01 AM [facility] % LYMPHOCYTES 17.0 % 01/13/2024 11:01 AM [facility] % MONOCYTES 6.0 % 01/13/2024 11:01 AM [facility] % EOSINOPHILS 7.0 % 01/13/2024 11:01 AM [facility] % BASOPHILS 1.0 % 01/13/2024 11:01 AM [facility] NEUTROPHILS ABSOLUTE 8.5(H) 1.7 - 7.0 thou/cu mm 01/13/2024 11:01 AM [facility] LYMPHOCYTES ABSOLUTE 2.1 0.9 - 2.9 thou/cu mm 01/13/2024 11:01 AM [facility] MONOCYTES ABSOLUTE 0.7 <0.9 thou/cu mm 01/13/2024 11:01 AM [facility] EOSINOPHILS ABSOLUTE 0.9(H) <0.5 thou/cu mm 01/13/2024 11:01 AM [facility] BASOPHILS ABSOLUTE 0.1 <0.3 thou/cu mm 01/13/2024 11:01 AM [facility] Blood BLOOD SPECIMEN / Unknown Venipuncture / Unknown 01/13/2024 7:30 AM CRM COORDINATOR 01/13/2024 9:43 AM CRM COORDINATOR Pauline Mcbride NP HEMATOLOGY Performing Organization Address [facility] de Phone Number [facility] [address] [place] [address] * HEMOGLOBIN A1C (12/23/2023 7:43 AM CRM COORDINATOR) HEMOGLOBIN A1C SCREENING 5.4 <=6.4 % 12/23/2023 9:43 AM [facility] Blood BLOOD SPECIMEN / Unknown Venipuncture / Unknown 12/23/2023 7:43 AM CRM COORDINATOR 12/23/2023 9:33 AM CRM COORDINATOR Narrative [facility] - 12/23/2023 9:43 AM CRM COORDINATOR (<5.7%) Normal (5.7% to 6.4%) Indicates prediabetes (>=6.5%) Confirms diabetes Falsely low levels may be seen with: Recent Transfusion, Recent Significant Blood Loss, Hemolytic Diseases, or Falsely elevated levels may be seen with: Untreated Anemias, Splenectomy William Edwards MD CHEMISTRY Performing Organization Address [facility] Co de Phone Number [facility] [address] [place] [phone] * (ABNORMAL) HEMOGLOBIN (12/23/2023 7:43 AM CRM COORDINATOR) Only the most recent of4 resultswithin the time period is included. HEMOGLOBIN 10.9(L) 13.5 - 17.5 g/dL 12/23/2023 10:04 AM [facility] MCV 92 80 - 100 fL 12/23/2023 10:04 AM [facility] Blood BLOOD SPECIMEN / Unknown Venipuncture / Unknown 12/23/2023 7:43 AM CRM COORDINATOR 12/23/2023 9:33 AM CRM COORDINATOR William Edwards MD HEMATOLOGY Performing Organization Address City/[facility]/ZIP Co de Phone Number [facility] [address] [place] [address] * (ABNORMAL) GAMMA GT (12/23/2023 7:43 AM CRM COORDINATOR) Only the most recent of2 resultswithin the time period is included. GAMMA GT 84(H) 8 - 61 IU/L 12/23/2023 12:54 PM CRM COORDINATOR [facility] Blood BLOOD SPECIMEN / Unknown Venipuncture / Unknown 12/23/2023 7:43 AM CRM COORDINATOR 12/23/2023 9:33 AM CRM COORDINATOR William Edwards MD CHEMISTRY Performing Organization Address [facility] de Phone Number [facility] [id number] [place] [address] * (ABNORMAL) HEPATIC FUNCTION PANEL (12/23/2023 7:43 AM CRM COORDINATOR) Only the most recent of2 resultswithin the time period is included. ALBUMIN 4.3 4.0 - 4.9 g/dL 12/23/2023 10:09 AM [facility] PROTEIN,TOTAL 7.0 6.0 - 8.0 g/dL 12/23/2023 10:09 AM [facility] BILIRUBIN,TOTAL 0.3 0.0 - 1.2 mg/dL 12/23/2023 10:09 AM [facility] BILIRUBIN,DIRECT 0.1 0.0 - 0.2 mg/dL 12/23/2023 10:09 AM [facility] ALK PHOSPHATASE 138(H) 40 - 129 IU/L 12/23/2023 10:09 AM [facility] ALT (SGPT) 23 10 - 50 IU/L 12/23/2023 10:09 AM [facility] AST (SGOT) 28 10 - 50 IU/L 12/23/2023 10:09 AM [facility] Blood BLOOD SPECIMEN / Unknown Venipuncture / Unknown 12/23/2023 7:43 AM CRM COORDINATOR 12/23/2023 9:33 AM [facility] William Edwards MD CHEMISTRY [facility] [address] [place] [address] * (ABNORMAL) BASIC METABOLIC PANEL (12/23/2023 7:43 AM [facility]) Only the most recent of4 resultswithin the time period is included. SODIUM 141 136 - 145 mmol/L 12/23/2023 10:09 AM [facility] POTASSIUM 4.5 3.5 - 5.1 mmol/L 12/23/2023 10:09 AM [facility] CHLORIDE 101 98 - 107 mmol/L 12/23/2023 10:09 AM [facility] CO2,TOTAL 29 22 - 29 mmol/L 12/23/2023 10:09 AM [facility] ANION GAP 11 5 - 18 12/23/2023 10:09 AM [facility] GLUCOSE 102(H) 70 - 99 mg/dL 12/23/2023 10:09 AM [facility] CALCIUM 9.6 8.8 - 10.4 mg/dL 12/23/2023 10:09 AM [facility] Comment: Reference ranges for this test were updated on 12/23/2023 to reflect our healthy population more accurately. Reference range changes are not retroactively applied to results, but previous results using the same methodology can be interpreted in the context of the new reference range. BUN 18 6 - 20 mg/dL 12/23/2023 10:09 AM [facility] CREATININE 0.90 0.70 - 1.20 mg/dL 12/23/2023 10:09 AM [facility] BUN/CREAT RATIO 20 10 - 20 10:09 AM [facility] eGFR >90 >90 mL/min/1. 73m2 12/23/2023 10:09 AM [facility] Comment:As of 2021, eG FR is calculated by the CKD-EPI creatinine equation without race adjustment. eGFR can be influenced by muscle mass, exercise, and diet. The reported eGFR is an estimation only and is only applicable if the renal function is stable. Blood BLOOD SPECIMEN / Unknown Venipuncture / Unknown 12/23/2023 7:43 AM CRM COORDINATOR 12/23/2023 9:33 AM CRM COORDINATOR William Edwards MD CHEMISTRY [facility] [address] [place] [address] * (ABNORMAL) GLUCOSE METER (11/07/2023 6:57 AM CDT) Only the most recent of12 resultswithin the time period is included. [facility] Signature GLUCOSE METER 123(H) 65 - 100 mg/dL 11/07/2023 7:00 AM CDT [facility] Blood BLOOD SPECIMEN / Unknown 11/07/2023 6:57 AM CDT 11/07/2023 7:00 AM CDT Julianne Velasquez MD CHEMISTRY Performing Organization Address City/[facility]/ZIP Co de Phone Number [facility] [address] [place] [address], [place] * XR Chest 1 View Portable - RN AMBULATORY (11/06/2023 12:55 PM CDT) Anatomical Region Laterality Modality HEART, THORAX, CHEST Digital Rad iography 11/06/2023 1:15 PM CDT Impressions 11/06/2023 1:15 PM CDT No focal pulmonary opacities. No pneumothorax. Dictated by Connor Clark MD @ Nov 06 2023 1:15PM (Electronically Signed) [email or web address] Narrative 11/06/2023 1:15 PM CDT For Patients: As a result of the Century Cures Act, medical imaging exams and procedure reports are released immediately into your electronic medical record. You may view this report before your referring provider. If you have questions, please contact your health [...] @ Nov 06 2023 1:15PM (Electronically Signed) [email or web address] Julianne Velasquez MD GENERAL IM AGING * 12 Lead EKG - RN AMBULATORY (11/06/2023 12:12 PM CDT) Interpretation Sinus bradycardia Low voltage QRS Borderline ECG No previous ECGs available BEYOND NOW Ventricular Rate 57 BPM BEYOND NOW Atrial Rate 57 BPM BEYOND NOW P-R Interval 160 ms BEYOND NOW QRS Duration 92 ms BEYOND NOW QT 444 ms BEYOND NOW QTc 432 ms BEYOND NOW P Seymour -19 degrees BEYOND NOW R Seymour -4 degrees BEYOND NOW T Seymour -1 degrees BEYOND NOW 11/06/2023 12:1 2 PM CDT 11/07/2023 6:50 PM CDT Julianne Velasquez MD EKG ORD BEYOND NOW [place], [place] * POTASSIUM (11/06/2023 10:27 AM CDT) Only the most recent of3 resultswithin the time period is included. POTASSIUM 4.2 3.5 - 5.1 mmol/L 11/06/2023 11:08 AM CDT [facility] Blood BLOOD SPECIMEN / Unknown Butterfly / Unknown 11/06/2023 10:27 AM CDT 11/06/2023 10:44 AM CDT Aditya Espinal RN CHEMISTRY [facility] [address] [place] [address], * (ABNORMAL) CBC no diff AM (11/05/2023 5:05 AM CDT) Only the most recent of2 resultswithin the time period is included. WHITE BLOOD COUNT 8.6 4.5 - 11.0 thou/cu mm 11/05/2023 5:38 AM CDT [facility] RED BLOOD COUNT 3.20(L) 4.30 - 5.90 mil/cu mm 11/05/2023 5:38 AM CDT [facility] HEMOGLOBIN 9.1(L) 13.5 - 17.5 g/dL 11/05/2023 5:38 AM CDT [facility] HEMATOCRIT 27.8(L) 37.0 - 53.0 % 11/05/2023 5:38 AM CDT [facility] MCV 87 80 - 100 fL 11/05/2023 5:38 AM CDT [facility] MCH 28.4 26.0 - 34.0 pg 11/05/2023 5:38 AM CDT [facility] MCHC 32.7 32.0 - 36.0 g/dL 11/05/2023 5:38 AM CDT [facility] RDW 14.7 11.5 - 15.5 % 11/05/2023 5:38 AM CDT [facility] PLATELET COUNT 177 140 - 440 thou/cu mm 11/05/2023 5:38 AM CDT [facility] MPV 9.5 6.5 - 11.0 fL 11/05/2023 5:38 AM CDT [facility] NRBC 0.0 % 11/05/2023 5:38 AM CDT [facility] ABS NRBC 0.0 thou /cu mm 11/05/2023 5:38 AM CDT [facility] Blood BLOOD SPECIMEN / Unknown Butterfly / Unknown 11/05/2023 5:05 AM CDT 11/05/2023 5:19 AM CDT Julianne Velasquez MD HEMATOLOGY Performing Organization Address City/[facility]/ZIP Co de Phone Number [facility] [address] [place] [address], * SODIUM (11/05/2023 5:05 AM CDT) SODIUM 140 136 - 145 mmol/L 11/05/2023 5:51 AM CDT [facility] Blood BLOOD SPECIMEN / Unknown Butterfly / Unknown 11/05/2023 5:05 AM CDT 11/05/2023 5:19 AM CDT Julianne Velasquez MD CHEMISTRY Performing Organization Address [facility] Co de Phone Number [facility] [address] [place] [address], * CREATININE (11/05/2023 5:05 AM CDT) eGFR >90 >90 mL/min/1.7 3m2 11/05/2023 5:51 AM CDT [facility] Comment:As of 2021, eG FR is calculated by the CKD-EPI creatinine equation without race adjustment. eGFR can be influenced by muscle mass, exercise, and diet. The reported eGFR is an estimation only and is only applicable if the renal function is stable. CREATININE 0.86 0.70 - 1.20 mg/dL 11/05/2023 5:51 AM CDT [facility] Blood BLOOD SPECIMEN / Unknown Butterfly / Unknown 11/05/2023 5:05 AM CDT 11/05/2023 5:19 AM CDT Julianne Velasquez MD CHEMISTRY Performing Organization Address [facility] Co de Phone Number [facility] [address] [place] [address], * SCAN-CARDIAC STRIP (11/04/2023 2:59 PM CDT) Scanner OTHER * CALCIUM IONIZED HOSPITAL DRAW ONLY (11/04/2023 12:00 PM CDT) CALCIUM,IONIZE D 1.22 1.15 - 1.27 mmol/L 11/04/2023 12:12 PM CDT [facility] Blood BLOOD SPECIMEN / Unknown Venipuncture / Unknown 11/04/2023 12:00 PM CDT 11/04/2023 12:08 PM CDT Sreedhar Martini MD CHEMISTRY Performing Organization Address [facility] Co de Phone Number [facility] [address] [place] [address], * SCAN-CARDIAC STRIP (11/04/2023 7:05 AM CDT) Scanner OTHER * PHOSPHORUS (11/04/2023 5:08 AM CDT) Only the most recent of2 resultswithin the time period is included. PHOSPHORUS 2.8 2.5 - 4.5 mg/dL 11/04/2023 6:21 AM CDT [facility] Blood BLOOD SPECIMEN / Unknown Butterfly / Unknown 11/04/2023 5:08 AM CDT 11/04/2023 5:41 AM CDT Sierra Salazar MD CHEMISTRY Performing Organization Address City/[facility]/ZIP Co de Phone Number [facility] [address] [place] [address], * MAGNESIUM (11/04/2023 5:08 AM CDT) Only the most recent of2 resultswithin the time period is included. MAGNESIUM 1.7 1.6 - 2.6 mg/dL 11/04/2023 6:21 AM CDT [facility] Blood BLOOD SPECIMEN / Unknown Butterfly / Unknown 11/04/2023 5:08 AM CDT 11/04/2023 5:41 AM CDT Sierra Salazar MD CHEMISTRY [facility] [address] [place] [address], * SCAN-CARDIAC STRIP (11/03/2023 2:56 PM CDT) [...] GI endoscopy Proceduralist: Gino Kern MD - [facility] Indications/Pre-Op Diagnosis: Coffee-ground emesis, Melena Medications: Fentanyl 100 micrograms IV, Midazolam 1 mgIV Procedure Description: Risk of bleeding, infection, perforation, need for surgery and alternatives discussed. The endoscope [id number] was introduced through the mouth, and advanced to the second part of duodenum. The upper GI endoscopy was accomplished without difficulty. The patient tolerated the procedure well. Complications: No immediate complications. Estimated Blood Loss & Specimen: Estimated blood loss: none. Findings: The esophagus was normal. A 6 mm bleeding Oralia-Corado tear with stigmata of recent bleedingwas found. Hematin (altered blood/xivohy-vpgwem-cgpt material) was found on the greater curvature of the stomach. The duodenal bulb, first portion of the duodenum and second portionof the duodenum were normal. Impressions/Post-Op Diagnosis: - Normal esophagus. - Oralia-Corado tear. - Hematin (altered blood/tapcqi-wicxnh-ztqu material) in the greater curvature of the stomach. - Normal duodenal bulb, first portion of the duodenum and secondportion of the duodenum. - No specimens collected. Recommendation: - Observe patient in ICU. PPIs- clear liquid and ADAT if hgb [id number]-Augx-rocnscg if needed Gino Kern MD 11/03/2023 1:09:30 PM This report has been signed electronically. Note Initiated On: 11/03/2023 12:30 PM Gino Kern MD PROCEDURE ORD * TYPE & SCREEN (11/03/2023 9:34 AM CDT) ABORH O Rh Positive 11/03/2023 10:26 AM CDT [facility] BLOOD BANK ANTIBODY SCREEN Negative Negative 11/03/2023 10:26 AM CDT [facility] SPECIMEN EXPIRATION DATE/TIME 11/06/23 23:59 11/03/2023 10:26 AM CDT [facility] Blood BLOOD SPECIMEN / Unknown Non-Lab Venipuncture / Unknown 11/03/2023 9:34 AM CDT 11/03/2023 9:43 AM CDT Raquel Aaron MD BLOOD BANK Performing Organization Address City/[facility]/ZIP Co de Phone Number [facility] [address] [place] [address], * (ABNORMAL) Protime - INR (11/03/2023 9:34 AM CDT) INR 1.4(H) <1.3 11/03/2023 9:59 AM CDT [facility] PROTIME 15.2(H) 10.3 - 12.3 sec 11/03/2023 9:59 AM CDT [facility] Blood BLOOD SPECIMEN / Unknown Non-Lab Venipuncture / Unknown 11/03/2023 9:34 AM CDT 11/03/2023 9:44 AM CDT Narrative [facility] - 11/03/2023 9:59 AM CDT Therapeutic Range 2.0-3.0 for most anticoagulated patients 2.5-3.5 [...] is on UFH. Ede Casas MD HEMATOLOGY [facility] [address] [place] [address], [place] * FIBRINOGEN,QUANTITATIVE (11/03/2023 9:34 AM CDT) FIBRINOGEN,JESS NTITATIVE 268 469 - 401 mg/dL 11/03/2023 9:59 AM CDT [facility] Blood BLOOD SPECIMEN / Unknown Non-Lab Venipuncture / Unknown 11/03/2023 9:34 AM CDT 11/03/2023 9:44 AM CDT Ede Casas MD HEMATOLOGY [facility] [address] [place] [address], * SCAN-CT INTERPRETATION (11/03/2023 12:00 AM CDT) Anatomical Region Laterality Modality Other Scanner OTHER * LIPID PANEL (09/23/2023 7:41 AM CDT) CHOLESTEROL,TOTAL 123 100 - 199 mg/dL 09/23/2023 9:11 AM T [facility] Comment: Cholesterol, Total Reference Ranges Desirable <200 mg/dL Borderline 200-239 mg/dL High >=240 mg/dL TRIGLYCERIDES 94 <150 mg/dL 09/23/2023 9:11 AM T [facility] HDL CHOLESTEROL 48 >40 mg/dL 9:11 AM T [facility] NON-HDL CHOLESTEROL 75 <145 mg/dl 09/23/2023 9:11 AM [facility] CHOL/HDL RATIO 2.56 <4.50 09/23/2023 9:11 AM [facility] LDL CHOLESTEROL 56 <=130 mg/dL 09/23/2023 9:11 AM [facility] VLDL CHOLESTEROL 19 <=30 mg/dL 09/23/19 9:11 AM CDT [facility] Blood BLOOD SPECIMEN / Unknown Venipuncture / Unknown 09/23/2023 7:41 AM CDT 09/23/2023 8:46 AM CDT Pauline Mcbride NP CHEMISTRY [facility] [address] [place] [id number] from Last 3 Months or Most Recently Relevant to Health Maintenance Advance Directives Documents on File Type Date Recorded Patient [employer] App[employer]ice Expl anation POLST 06/25/2023 * Full Code (Latest Code Status on File) Date Activated Date Inactivated Comments 11/03/2023 8:15 AM 11/07/2023 1:29 PM Question Answer Comments Code Status Discussion: Reviewed Preferences Care Teams Tunnel Mucker Relationship Specialty Start Date End Date Monty Hernandez MD [address] [place] [id number] PCP - General Family Practice 04/18/15
--- OUTSIDE RECORDS SUMMARY | 2024-01-22 16:32 | XMS_ITS | Referral Summary ---
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 For routine questions regarding patient records, call [phone] during business hours, M-F 8:00 AM - 5:00 PM Central Time. Record requests for emergency care only can be directed to [phone] at any time.[facility] Encounters Date Type Department Care Team Description 01/20/2024 Orders Only Department of Orthopedic Surgery in [place], [place] [address] [place] [phone] Lizeth Joe, DEBRAS, P.A.-C. Fracture Femur Shaft Closed Initial Right (HCC) (Primary Dx) 01/15/2024 5:30 AM FASHION CONSULTANT SALES - 01/20/2024 10:02 AM FASHION CONSULTANT SALES Hospital Encounter [facility], [facility], Ninth Floor [address] [place] [phone] Yousif Calderon D.O. Luke, Anuradha, M.D. Sems, Stephen A, M.D. Ester Vann M.D. Fracture Femur Shaft Closed Initial Right (HCC) (Primary Dx); Decline Functional Status [R53.81] Discharge Disposition: Senior Living Facility 01/16/2024 8:06 AM FASHION CONSULTANT SALES Anesthesia Event [facility] [address] [place] [phone] Kaye Aguilar M.D. Mariel Beckman RBelkisN. 01/16/2024 7:50 AM FASHION CONSULTANT SALES - 01/16/2024 12:32 PM FASHION CONSULTANT SALES Surgery [facility] [address] [place] [address] Ester Vann M.D. SURGICAL MANAGEMENT PERIPROSTHETIC FEMUR FRACTURE. 01/09/2024 Orders Only Department of Orthopedic Surgery in [place], [place] [address] [place] [address] Brittney Piña MPAS, P.A.-C. 01/06/2024 5:34 AM FASHION CONSULTANT SALES - 01/09/2024 10:06 AM FASHION CONSULTANT SALES Hospital Encounter [facility], [facility], [facility], Ninth Floor [address] [place] [address] Vel Vinson M.D., M.B.A. Pain Hip Right [M25.551] (Primary Dx); Infection Total Hip Arthroplasty Subsequent Right; Decline Functional Status [R53.81] Discharge Disposition: Senior Living Facility 01/08/2024 Orders Only Preoperative Evaluation Center in [place], [place] [address] [place] [phone] Alfredito Hudson M.S.N., R.N. Anemia (Primary Dx) 01/08/2024 Orders Only Department of Orthopedic Surgery in [place], [place] [address] [place] [address] Brittney Piña MPAS, P.A.-C. Arthroplasty Total Hip Replacement Status Post Right (Primary Dx) 01/07/2024 2:20 PM FASHION CONSULTANT SALES Ancillary Procedure Department of Nursing 01/06/2024 Ancillary Procedure Department of Orthopedic Surgery 01/06/2024 7:25 AM FASHION CONSULTANT SALES - 01/06/2024 12:11 PM FASHION CONSULTANT SALES Surgery [facility] [address] [place] [address] Vel Vinson M.D., M.B.A. ARTHROPLASTY REVISION FEMORAL PLUS ACETABULAR HIP. 01/06/2024 7:54 AM FASHION CONSULTANT SALES Anesthesia Event [facility] [address] [place] [address] Baltazar Pacheco M.D. 01/05/2024 2:30 PM FASHION CONSULTANT SALES Comprehensive Visit Preoperative Evaluation Center in [place], [place] [address] [place] [phone] Vel Vinson M.D., M.B.A. Roma Mock APRN, C.N.P., M.S.N. Preanesthetic Medical Exam (Primary Dx); Infection Total Hip Arthroplasty Subsequent Right; Hypertension Essential Primary; Hyperlipidemia; Apnea Sleep Obstructive; Stenosis Carotid Artery Right; Occlusion Carotid Artery Left; Stroke Cerebrovascular Accident Personal History 01/05/2024 10:45 AM FASHION CONSULTANT SALES Comprehensive Visit Section of Infectious Diseases in [place], [place] [address] [place], [place] [phone] Maddy Bingham P.A.-C. Infection Total Hip Arthroplasty Subsequent Right 01/05/2024 11:15 AM FASHION CONSULTANT SALES Office Visit Department of Orthopedic Surgery in [place], [place] [address] [place] [address] Vel Vinson M.D., M.B.A. Arthroplasty Total Hip Replacement Status Post Right (Primary Dx) 01/05/2024 9:36 AM FASHION CONSULTANT SALES - 01/05/2024 11:59 PM FASHION CONSULTANT SALES Hospital Encounter Department of Radiology, [facility], in [place], [place] [address] [place] [address] Vel Vinson M.D., M.B.A. Infection Total Hip Arthroplasty Subsequent Right Discharge Disposition: Home or Self Care 2024 Orders Only Department of Orthopedic Surgery in [place], [place] [address] [place] [phone] Brittney Piña MPAS PBelkisA.-C. 12/29/2023 Orders Only Department of Orthopedic Surgery in [place], [place] [address] [place] [phone] Brittney Piña MPAS P.A.-C. Anemia (Primary Dx) 12/18/2023 Clinical Communication Division of Gastroenterology in [place], [place] [address] [place] [phone] Ede Crespo M.D. e-Consult Follow-Up (Completed 12/07 post ED visit 11/27) 12/18/2023 Clinical Communication Department of Orthopedic Surgery in [place], [place] [address] [place] [phone] Vel Vinson M.D., M.B.A. 12/17/2023 Clinical Communication Department of Hospital Internal Medicine in [place], [place] [address] [place] [phone] Lul Galeas M.D. 12/11/2023 Orders Only Department of Orthopedic Surgery in [place], [place] [address] [place] [phone] Maurisio Peoples M.D. Stroke (HCC) (Primary Dx) 12/08/2023 1:00 PM CDT Internal E-Consult Division of Gastroenterology in [place], [place] [address] [place] [phone] Lul Galeas M.D. Schupack, Daniel A, M.D. Ulcer Colon (Primary Dx); Hemorrhage Gastrointestinal 12/08/2023 8:00 AM CDT Internal E-Consult Department of Vascular Medicine in [place], [place] [address] [place] [phone] Ann Montoya APRN, C.N.P., M.S. Infection Total Hip Arthroplasty Subsequent Right 12/05/2023 Orders Only Department of Orthopedic Surgery in [place], [place] [address] [place] [phone] Maurisio Peoples M.D. Infection Total Hip Arthroplasty Subsequent Right (Primary Dx) 11/28/2023 2:49 PM CDT - 12/03/2023 10:07 AM CDT Hospital Encounter [facility], [facility], Fourth Floor [address] [place] [phone] Paola Solis APRN, C.N.P., D.N.P., M.S.N. Theodore Dsouza M.D., M.P.H. Yola Triana M.D. Zahira Shaw APRN, Venu.N.P., D.N.P. Hemorrhage Gastrointestinal (Primary Dx); Anemia; Infection Total Hip Arthroplasty Initial Right (HCC); Stroke (HCC) Discharge Disposition: Senior Living Facility 12/02/2023 Clinical Communication [facility] [address] [place] [phone] Lul Galeas M.D. Appt Request 12/02/2023 11:10 AM CDT Ancillary Procedure Department of Gastroenterology 12/02/2023 11:25 AM CDT Anesthesia Event Division of Gastroenterology in [place], [place] [address] [place] [phone] Jorge Del Rosario APRN, PEYMAN, DNAP Char Rudolph M.D. 11/03/2023 Intake [facility] from Last 3 Months Allergies Active Allergy Reactions Criticality Noted Date Comments Cefazolin Other (see comments) 08/25/2023 Possible increase in alkaline phosphatase please see ID notes Medications * This document contains information received from the source organization and may not represent a complete record from that organization. lancets 1 each daily. 50 each 023 Active pen needle, diabetic (BD Ultra-Fine Short Pen Needle) 31 gauge x 5/16 needle 1 Injection daily. 100 each 3 023 Active carboxymethylcel lulose (REFRESH PLUS) 0.5 % ophthalmic solution Administer 2 drops into both eyes 4 (four) times a day as needed for dry eyes. 50 each Active levETIRAcetam (Keppra) 100 mg/mL solution Take 7.5 mL (750 mg total) by mouth 2 (two) times a day. Active aspirin 81 mg chewable tablet Chew 1 tablet (81 mg total) daily. 60 tablet Active pantoprazole (Protonix) 40 mg EC tablet Take 40 mg by mouth daily before morning meal. Active polyethylene glycol (Miralax) 17 gram powder packet Take 17 g by mouth daily. Dissolve each 17 g dose in 240 mLs (8 ounces) of beverage. Active nystatin (Nystop) 100,000 unit/gram powder Apply 1 Application topically 2 (two) times a day. Active nystatin (Mycostatin) 100,000 unit/gram cream Apply 1 Application topically 2 (two) times a day. Active sennosides (senna) 8.6 mg tablet Take 8.6 mg by mouth 2 (two) times a day. Active insulin NPH (NovoLIN N FlexPen) 100 unit/mL (3 mL) pen Inject 8 Units under the skin every morning. 3 mL Active lisinopriL 5 mg tablet Take 1 tablet (5 mg total) by mouth daily. HOLD AT DISCHARGE, discuss resuming medication with facility provider / primary care provider. Active acetaminophen (TylenoL) 500 mg tablet Take 2 tablets (1,000 mg total) by mouth 4 (four) times a day. Active cefadroxil (Duricef) 500 mg capsuleIndicatio ns:Blood stream infection,Bone and/or joint infection Take 1 capsule (500 mg total) by mouth 2 (two) times a day Indications: Blood stream infection, Bone and/or joint infection. 2024 Active rivaroxaban (Xarelto) 10 mg tablet Take 1 tablet (10 mg total) by mouth daily. 30 tablet 11 2024 Active calcium citrate-vitamin D3 (Citracal + D3) 315 mg-5 mcg (200 Unit) per tablet Take 2 tablets by mouth 2 (two) times a day. Active oxyCODONE (Roxicodone) 5 mg immediate release tabletIndication s:Acute Pain Exception Take 1 tablet (5 mg total) by mouth every 4 (four) hours as needed for pain Indication: Acute Pain Exception. Take 1 tablet (5 mg) if pain 5-7/10, take 2 tablets (10 mg) if pain 8-10/10 20 tablet Active atorvastatin (Lipitor) 40 mg tablet Take 1 tablet (40 mg total) by mouth at bedtime. 30 tablet Active amLODIPine (Norvasc) 5 mg tablet Take 1 tablet (5 mg total) by mouth daily. 30 tablet Active blood sugar diagnostic strips 1 test daily. 30 test 023 2023 Discontinued blood-glucose meter (FreeStyle [place]) kit Use as instructed 1 each 023 2023 Discontinued(T herapy completed) blood glucose ctl high,nml,low solution Glucose control solution provides an easy way to ensure accurate blood glucose testing. 1 each 023 2023 Discontinued(T herapy completed) flash glucose scanning reader (FreeStyle Jessica 2 [place]) miscIndications: Diabetes Mellitus Type 2 Ulcer Foot Hyperglycemic (HCC) 1 each (1 Device total) continuously. 1 each 1 023 2023 Discontinued(T herapy completed) acetaminophen (TYLENOL) 500 mg tablet Take 2 tablets (1,000 mg total) by mouth every 6 (six) hours as needed for mild pain or score 1-3 of 10 or moderate pain or score 4-6 of 10. 024 2023 Discontinued(S top Taking at Discharge) atorvastatin (LIPITOR) 20 mg tablet Take 1 tablet (20 mg total) by mouth at bedtime. 30 tablet 1 024 2023 Discontinued(S top Taking at Discharge) Novofine Autocover 30 gauge x 1/3 needle 024 2023 Discontinued(T herapy completed) rivaroxaban (Xarelto) 10 mg tablet Take 1 tablet (10 mg total) by mouth daily. 30 tablet 11 024 2023 Discontinued lisinopriL 5 mg tablet Take 5 mg by mouth daily. 024 2023 Discontinued sucralfate (Carafate) 1 gram tablet Take 1 g by mouth every 6 (six) hours. Unsure if taking 2023 Discontinued sennosides (Senokot) 8.6 mg tablet Take 8.6 mg by mouth 2 (two) times a day. 2023 Discontinued insulin NPH (NovoLIN N FlexPen) 100 unit/mL (3 mL) pen Inject 4-8 Units under the skin 2 (two) times a day with meals. takes 8 units in the AM and 4 units in the afternoon 3 mL 024 2023 Discontinued cefadroxil (Duricef) 500 mg capsuleIndicatio ns:Bone and/or joint infection Take 1 capsule (500 mg total) by mouth 2 (two) times a day for 12 days Indications: Bone and/or joint infection. 24 capsule 024 2023 Discontinued HYDROmorphone (Dilaudid) 2 mg tabletIndication s:Prolonged Acute Pain/Traumatic Injury Take 1 tablet (2 mg total) by mouth every 4 (four) hours as needed for severe pain or score 7-10 of 10 Indication: Prolonged Acute Pain/Traumatic Injury. 25 tablet 024 2023 Discontinued sennosides-docus ate sodium (Senokot-S) 8.6-50 mg per tablet Take 1 tablet by mouth 2 (two) times a day for 2 days. 4 tablet 024 2023 HYDROmorphone (Dilaudid) 2 mg tabletIndication s:Prolonged Acute Pain/Traumatic Injury Take 1 tablet (2 mg total) by mouth every 4 (four) hours as needed for severe pain or score 7-10 of 10 Indication: Prolonged Acute Pain/Traumatic Injury. 26 tablet 024 2023 Discontinued cefadroxil (Duricef) 500 mg capsuleIndicatio ns:Blood stream infection,Bone and/or joint infection Take 1 capsule (500 mg total) by mouth 2 (two) times a day for 12 days Indications: Blood stream infection, Bone and/or joint infection. 24 capsule 024 2023 Discontinued HYDROmorphone (Dilaudid) 2 mg tabletIndication s:Prolonged Acute Pain/Traumatic Injury Take 1 tablet (2 mg total) by mouth every 4 (four) hours as needed for severe pain or score 7-10 of 10 Indication: Prolonged Acute Pain/Traumatic Injury. 26 tablet 024 2023 Discontinued(S top Taking at Discharge) cefadroxil (Duricef) 500 mg capsuleIndicatio ns:Blood stream infection,Bone and/or joint infection Take 1 capsule (500 mg total) by mouth 2 (two) times a day for 12 days Indications: Blood stream infection, Bone and/or joint infection. 24 capsule 2023 Discontinued HYDROmorphone (Dilaudid) 2 mg tablet Take 2 mg by mouth 2 (two) times a day. 024 2023 Discontinued(S top Taking at Discharge) atorvastatin (Lipitor) 40 mg tablet Take 1 tablet (40 mg total) by mouth at bedtime. 024 2023 Discontinued amLODIPine (Norvasc) 5 mg tablet Take 1 tablet (5 mg total) by mouth daily. 2023 Discontinued Active Problems Problem Noted Date Diagnosed Date Fracture Femur Shaft Closed Initial Right 2023 Aftercare Following Explantation Of Hip Joint Pr osthesis 01/06/2024 Stroke Cerebrovascular Accident Personal History 01/05/2024 Ulcer Colon 12/12/2023 Hemorrhage Gastrointestinal 11/28/2023 Seizure [...] Ulcer Foot 04/17/2022 Peripheral Arterial Disease 03/10/2020 Hyperlipidemia 02/18/2017 Hypertension Essential Primary 02/18/2017 Apnea Sleep Obstructive 04/27/2015 Polyp Colon 04/21/2015 Overview (02/18/2017): Overview: Colonoscopy 04/2015 hyperplastic polyp repeat in 5 years Resolved Problems Problem Noted Date Diagnosed Date Resolved Date Failure To Thrive Adult 07/29/202207/18 Screening Cancer Colon 04/17/202007/30 Overview (04/17/2020): Added automatically from request for surgery [id number] Obesity Body Mass Index 30-39.9 Adult 03/09/2020 01/05/2024 Hyponatremia 03/09/2020 07/30/2022 Hyperkalemia 03/09/2020 07/30/2022 Cellulitis [...] drink = 0.6 oz pur e alcohol) [facility] Utilities Answer Date Recorded In the past 12 months has e [employer], gas, oil, or water [employer] threatened to shut off services in your home? No 01/15/2024 Humiliation, Afraid, Rape, and Kick questionnair e Answer Date Recorded Within the last year, have y ou been afraid of your partner or ex-partner? No 01/15/2024 Within the last year, have y ou been humiliated or emotionally abused in other ways by your partner or ex-partner? No Within the last year, have y ou been kicked, hit, slapped, or otherwise physically hurt by your partner or ex-partner? No 01/15/2024 Within the last year, have y ou been raped or forced to have any kind of sexual activity by your partner or ex-partner? No 01/15/2024 PHQ-2 Answer Date Recorded PHQ-2 Score 0 [...] the money to buy more. Never true 01/15/20 24 Within the past 12 months, t he food you bought just didn't last and you didn't have money to get more. Never true 01/15/2024 PRAPARE - Transportation Answer Date Re corded In the past 12 months, has l ack of transportation kept you from medical appointments or from getting medications? No 12/19 In the past 12 months, has l ack of transportation kept you from meetings, work, or from getting things needed for daily living? No 01/15/2024 Nutrition Answer Date Recorded On average, how [...] a [facility] to live 01/15/2024 Sex and Gender Information Value Date Recorded Sex Assigned at Male 07/26/2022 1:30 PM CDT Legal Sex Male 6:41 AM FASHION CONSULTANT SALES Gender Identity Male 07/26/2022 1:32 PM CDT Sexual Orientation Straight 07/26/2022 1: 32 PM CDT Last Filed Vital Signs Vital Sign Reading Time Taken Comments Blood Pressure 122/63 01/20/2024 9:00 AM FASHION CONSULTANT SALES Pulse 62 01/20/2024 9:00 AM FASHION CONSULTANT SALES Temperature 36.4 C (97.5 F) 01/20/2024 9:00 AM FASHION CONSULTANT SALES Respiratory Rate 16 01/20/2024 9:00 AM FASHION CONSULTANT SALES Oxygen Saturation 97% 01/20/2024 9:00 AM FASHION CONSULTANT SALES Inhaled Oxygen Concentration - - Weight 97.8 kg (215 lb 9.8 oz) 01/15/2024 9:26 A M FASHION CONSULTANT SALES Height 181 cm (5' 11.26) 01/15/2024 9:26 AM FASHION CONSULTANT SALES Body Mass Index 29.85 01/15/2024 9:26 AM FASHION CONSULTANT SALES Plan of Treatment Upcoming Encounters Date Type Department Care Team (Latest Contact Info) Description 01/27/2024 12:30 PM FASHION CONSULTANT SALES Appointment Department of Orthopedic Surgery in [place], [place] [address] [place] [address] Lizeth Joe MPAS, P.A.-C. [address] [place] [address] Discharge Disposition: Home or Self Care 02/19/2024 1:45 PM FASHION CONSULTANT SALES Appointment Department of Radiology, [facility], in [place], [place] [address] [place] [phone] Fantasma Butt M.D. [address] [place] [phone] 02/20/2024 11:00 AM FASHION CONSULTANT SALES Virtual Visit Department of Radiology, [facility], in [place], [place] [address] [place] [phone] Radha Ojeda P.A.-C., M.S. [address] [place] [phone] 04/13/2024 2:00 PM FASHION CONSULTANT SALES Clinical Communication Virtual Review in [place], [place] [address] [place] [phone] 04/15/2024 12:00 PM FASHION CONSULTANT SALES Appointment Department of Radiology, [facility], in [place], [place] [address] [place], [place] [phone] Brittney Piña, [facility], PJennifer. [address] [place] [phone] 04/15/2024 1:00 PM FASHION CONSULTANT SALES Office Visit Department of Orthopedic Surgery in [address] [phone] Vel Vinson M.D., M.B.A. [address] [place] [phone] Medical Devices Implanted Type Area Sewing Machine Maintenance Mechanic Device Identifier Shelf Expiration Date Model / Serial / Lot Grft Stm Pwdr Calc Sulf 10 - [id number] Implanted:Qty: 1 on 01/16/2024 by Ester Vann M.D. at [facility] Bone Growth Stimulator Right: [employer] 03/19/2026 620-010 / / [id number] [facility] Protege 0.014 [id number] - [id number] Implanted:Qty: 1 on 08/09/2022 by Fantasma Butt M.D. at [facility] Cardiac Stent Medtronic 02/19/2024 SECX-8-30- 135 / / [id number] Description:Carotid Stent Small Frag-Screw Yasmany 3.5x16 - Amaral [id number] Implanted:Qty: 3 on 2004 Hardware e.g. pins/screws/ rods Depuy Synthes Description:Device Manufactu rer - Synthes. Device Status Text - HARDWARE-7597. K-Wire Smooth S.S. Single 9 .062 - Amaral [id number] Implanted:Qty: 1 on 2004 Hardware e.g. pins/screws/ rods Liliane Description:Device Manufactu rer - Liliane Angel.. Device Status Text - HARDWARE-9295. Small Frag-Screw Yasmany 3.5x18 - Amaral [id number] Implanted:Qty: 3 on 2004 Hardware e.g. pins/screws/ rods Depuy Synthes Description:Device Manufactu rer - Synthes. Device Status Text - HARDWARE-7598. Lc Dc-Plate Sm 3.5x 7ho - Amaral [id number] Implanted:Qty: 1 on 2004 Hardware e.g. pins/screws/ rods Depuy Synthes Description:Device Manufactu rer - Synthes. Device Status Text - HARDWARE-8081. Small Frag-Screw Yasmany 3.5x34 - Amaral 7629 Implanted:Qty: 1 on 01/02/2004 Hardware e.g. pins/screws/ rods Depuy Synthes Description:Device Manufactu rer - Synthes. Device Status Text - HARDWARE-7629. Small Frag-Screw Yasmany 3.5x22 - Amaral 7600 Implanted:Qty: 1 on 01/02/2004 Hardware e.g. pins/screws/ rods Depuy Synthes Description:Device Manufactu rer - Synthes. Device Status Text - HARDWARE-7600. Small Frag-Screw Yasmany 3.5x28 - Amaral 7603 Implanted:Qty: 1 on 01/02/2004 Hardware e.g. pins/screws/ rods Depuy Synthes Description:Device Manufactu rer - Synthes. Device Status Text - HARDWARE-7603. Small Frag-Screw Yasmany 3.5x20 - Amaral 7599 Implanted:Qty: 2 on 01/02/2004 Hardware e.g. pins/screws/ rods Depuy Synthes Description:Device Manufactu rer - Synthes. Device Status Text - HARDWARE-7599. Pelvic Re-Plate 3.5x10ho - Amaral [id number] Implanted:Qty: 1 on 01/02/2004 Hardware e.g. pins/screws/ rods Depuy Synthes Description:Device Manufactu rer - Synthes. Device Status Text - HARDWARE-9991. Small Frag-Screw Yasmany 3.5x24 - Amaral [id number] Implanted:Qty: 2 on 01/02/2004 Hardware e.g. pins/screws/ rods Depuy Synthes Description:Device Manufactu rer - Synthes. Device Status Text - HARDWARE-7600. Pin Dania Threaded Single End 5 64 - Amaral [id number] Implanted:Qty: 2 on 01/02/2004 Hardware e.g. pins/screws/ rods Liliane Description:Device Manufactu rer - [place] Angel.. Device Status Text - HARDWARE-9484. Small Frag-Screw Yasmany 3.5x26 - Amaral [id number] Implanted:Qty: 1 on 01/02/2004 Hardware e.g. pins/screws/ rods Depuy Synthes Description:Device Manufactu rer - Synthes. Device Status Text - HARDWARE-7601. Syn Screw Schanz 5.0x250 - Amaral [id number] Implanted:Qty: 1 on 01/02/2004 Hardware e.g. pins/screws/ rods Depuy Synthes Description:Device Manufactu rer - Synthes. Device Status Text - HARDWARE-40783. Guide Wire-Ball Tip 3 X 800 - Amaral [id number] Implanted:Qty: 1 on 02/03/2009 Hardware e.g. pins/screws/ rods Liliane Description:Device Manufactu rer - [place] Angel.. Device Status Text - HARDWARE- 46383. [facility] Data - [id number]. Wax Bn [facility] 2.5gr - [id number] Implanted:Qty: 1 on 01/06/2024 by Vel Vinson M.D., M.B.A. at [facility] Hardware e.g. pins/screws/ rods Right: Hip Ethicon W31 / / Scrw Trl Acet Ft 6.5x30 - [id number] Implanted:Qty: 1 on 01/06/2024 by Vel Vinson M.D., M.B.A. at [facility] Hardware e.g. pins/screws/ rods Right: Hip [employer]i [employer] [id number] 09/23/2033 5-30 / / [id number] Scrw Trl Acet Ft 6.5x35 - [id number] Implanted:Qty: 1 on 01/06/2024 by Vel Vinson M.D., M.B.A. at [facility] Hardware e.g. pins/screws/ rods Right: Hip [employer]i [employer] [id number] 12/28/2032 5-35 / / [id number] Scrw Trl Acet Ft 6.5x20 - [id number] Implanted:Qty: 1 on 01/06/2024 by Vel Vinson M.D., M.B.A. at [facility] Hardware e.g. pins/screws/ rods Right: Hip [employer]i [employer] [id number] 08/11/2033 5-20 / / [id number] Scrw Trl Acet Ft 6.5x40 - [id number] Implanted:Qty: 1 on 01/06/2024 by Vel Vinson M.D., M.B.A. at [facility] Hardware e.g. pins/screws/ rods Right: Hip [employer]i [employer]omet [id number] 09/11/2033 5-40 / / [id number] Sleeve Cable Dia2mm Vitallium Branden Miles - [id number] Implanted:Qty: 1 on 01/06/2024 by Vel Vinson M.D., M.B.A. at [facility] Hardware e.g. pins/screws/ rods Right: Hip Liliane 05/28/2028 6704-0-510 / / [id number] Sleeve Cable Dia2mm Vitallium Branden Miles - [id number] Implanted:Qty: 1 on 01/06/2024 by Vel Vinson M.D., M.B.A. at [facility] Hardware e.g. pins/screws/ rods Right: Hip [place] 05/28/2028 6704-0-510 / / [id number] Sleeve Cable Dia2mm Vitallium Branden Zhang - [id number] Implanted:Qty: 1 on 01/06/2024 by Vel Vinson M.D., M.B.A. at [facility] Hardware e.g. pins/screws/ rods Right: Hip Liliane 02/22/2028 6704-0-510 / / [id number] Sleeve Cable Dia2mm Vitallium Branden Zhang - [id number] Implanted:Qty: 1 on 01/06/2024 by Vel Vinson M.D., M.B.A. at [facility] Hardware e.g. pins/screws/ rods Right: Hip Liliane 04/28/2028 6704-0-510 / / [id number] Sleeve Cable Dia2mm Vitallium Branden Frederick - [id number] Implanted:Qty: 1 on 01/06/2024 by Vel Vinson M.D., M.B.A. at [facility] Hardware e.g. pins/screws/ rods Right: Hip [place] 04/28/2028 6704-0-510 / / [id number] Wre Fix Lq Ss Closed 1.2x30 - [id number] Implanted:Qty: 2 on 01/06/2024 by Vel Vinson M.D., M.B.A. at [facility] Hardware e.g. pins/screws/ rods Right: Hip [employer] 00-1292-06 1-00 / / 3.5/4.5mm Va-Lcp Ppfx Proximal Femur Plate, Right, 12 Holes, 388mm Implanted:Qty: 1 on 01/16/2024 by Ester Vann M.D. at [facility] Hardware e.g. pins/screws/ rods Right: Femur Depuy Synthes 02.221.130 S / / Cbl Grp Cerclg Crmp Ss 1.7x750 - [id number] Implanted:Qty: 1 on 01/16/2024 by Ester Vann M.D. at [facility] Hardware e.g. pins/screws/ rods Right: Femur [employer]uy [employer]ynthes 09/16/2028 298.801.01 S / / [id number] Cbl Grp Cerclg Crmp Ss 1.7x750 - [id number] Implanted:Qty: 1 on 01/16/2024 by Ester Vann M.D. at [facility] Hardware e.g. pins/screws/ rods Right: Femur Depuy [employer]ynthes 09/16/2028 298.801.01 S / / [id number] Cbl Grp Cerclg Crmp Ss 1.7x750 - [id number] Implanted:Qty: 1 on 01/16/2024 by Ester Vann M.D. at [facility] Hardware e.g. pins/screws/ rods Right: Femur [employer] 09/16/2028 298.801.01 S / / [id number] 3.5mm Variable Angle Loking Screw, 32mm Implanted:Qty: 1 on 01/16/2024 by Ester Vann M.D. at [facility] Hardware e.g. pins/screws/ rods Right: Femur Depuy Synthes 02.127.132 / / 3.5mm Variable Angle Loking Screw, 60mm Implanted:Qty: 1 on 01/16/2024 by Ester Vann M.D. at [facility] Hardware e.g. pins/screws/ rods Right: Femur Depuy Synthes 02.127.160 / / 3.5mm Variable Angle Loking Screw, 65mm Implanted:Qty: 1 on 01/16/2024 by Ester Vann M.D. at [facility] Hardware e.g. pins/screws/ rods Right: Femur Depuy Synthes 02.127.165 / / 3.5mm Cortex Screw, 28mm Implanted:Qty: 1 on 01/16/2024 by Ester Vann M.D. at [facility] Hardware e.g. pins/screws/ rods Right: Femur Depuy Synthes 02.200.028 / / 3.5mm Cortex Screw, 50mm Implanted:Qty: 1 on 01/16/2024 by Ester Vann M.D. at [facility] Hardware e.g. pins/screws/ rods Right: Femur Depuy Synthes 02.200.050 / / 3.5mm Cortex Screw, 60mm Implanted:Qty: 1 on 01/16/2024 by Ester Vann M.D. at [facility] Hardware e.g. pins/screws/ rods Right: Femur Depuy [employer]ynthes 02.200.060 / / 5.0mm Variable Angle Locking Screw, 46mm Implanted:Qty: 1 on 01/16/2024 by Ester Vann M.D. at [facility] Hardware e.g. pins/screws/ rods Right: Femur Depuy [employer]ynthes 02.231.246 / / 4.5mm Cortex Screw, 40mm Implanted:Qty: 1 on 01/16/2024 by Ester Vann M.D. at [facility] Hardware e.g. pins/screws/ rods Right: Femur Depuy [employer]ynthes 214.840 / / 4.5mm Cortex Screw, 50mm Implanted:Qty: 1 on 01/16/2024 by Ester Vann M.D. at [facility] Hardware e.g. pins/screws/ rods Right: Femur Depuy [employer]ynthes 214.850 / / 4.5mm Cortex Screw, 76mm Implanted:Qty: 1 on 01/16/2024 by Ester Vann M.D. at [facility] Hardware e.g. pins/screws/ rods Right: Femur Depuy [employer]ynthes 214.876 / / 5.0mm Variable Angle Locking Screw, 55mm Implanted:Qty: 1 on 01/16/2024 by Ester Vann M.D. at [facility] Hardware e.g. pins/screws/ rods Right: Femur Depuy [employer]ynthes 02.231.255 / / Shell Acetab G7 Multi Hl 62mm - [id number] Implanted:Qty: 1 on 01/06/2024 by Vel Vinson M.D., M.B.A. at [facility] Hip Implant Right: Hip [employer] 04/04/2033 [id number] / / [id number] Lnr G7 Szh 50 - [id number] Implanted:Qty: 1 on 01/06/2024 by Vel Vinson M.D., M.B.A. at [facility] Hip Implant Right: Hip [employer] 08/27/2033 [id number] / / [id number] Hip Dist Stem 93x576fc - [id number] Implanted:Qty: 1 on 01/06/2024 by Vel Vinson M.D., M.B.A. at [facility] Hip Implant Right: Hip [employer] 09/05/2025 495-24-210 / / [id number] Hip Prox Body 85mm Lat Offset - [id number] Implanted:Qty: 1 on 01/06/2024 by Vel Vinson M.D., M.B.A. at [facility] Hip Implant Right: Hip [employer] 11/20/2028 495-01-085 / / [id number] Lnr Act Art 23k84mf - [id number] Implanted:Qty: 1 on 01/06/2024 by Vel Vinson M.D., M.B.A. at [facility] Hip Implant Right: Hip [employer] 08/23/2028 [id number] / / [id number] Fem Hd +7ofst 28 - [id number] Implanted:Qty: 1 on 01/06/2024 by Vel Vinson M.D., M.B.A. at [facility] Hip Implant Right: Hip [employer] 07/17/2029 [id number] / / [id number] Stnt [place]il[place] 518 8x80 - [id number] Implanted:Qty: 1 on 05/24/2023 by Almaz Olea M.D. 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 at [facility] Explanted:Qty: 1 on 01/06/2024 by Vel Vinson M.D., M.B.A. at [facility] Bone Cement Right: Hip Liliane 6191-1-001 / / Cmnt Bn Smp 40gm - [id number] Implanted:Qty: 1 on 05/23/2023 by Félix Mckeon M.D. at [facility] Explanted:Qty: 1 on 01/06/2024 by Vel Vinson M.D., M.B.A. at [facility] Bone Cement Right: Hip Liliane 6191-1-001 / / Cmnt Bn Smp 40gm - [id number] Implanted:Qty: 1 on 05/23/2023 by Félix Mckeon M.D. at [facility] Explanted:Qty: 1 on 01/06/2024 by Vel Vinson M.D., M.B.A. at [facility] Bone Cement Right: Hip Liliane 6191-1-001 / / Screw-Hgpii S-Tap 6.5 X 15mm - [id number] Implanted:Qty: 1 on 02/03/2009 Explanted:Qty: 1 on 05/23/2023 by Vel Vinson M.D., M.B.A. at [facility] Hardware e.g. pins/screw s/rods [employer] Description:Device Manufactu rer - Nori. Device Status Text - HARDWARE-48388. Small Frag-Screw Yasmany 3.5x12 - Amaral [id number] Implanted:Qty: 1 on 01/02/2004 Explanted:Qty: 1 on 05/23/2023 by Vel Vinson M.D., M.B.A. at [facility] Hardware e.g. pins/screw s/rods [employer]uy [employer]s Description:Device Manufactu rer - Synthes. Device Status Text - HARDWARE-7595. Small Frag-Screw Yasmany 3.5x16 - Amaral [id number] Implanted:Qty: 2 on 01/02/2004 Explanted:Qty: 2 on 05/23/2023 by Vel Vinson M.D., M.B.A. at [facility] Hardware e.g. pins/screw s/rods [employer]uy [employer]s Description:Device Manufactu rer - Synthes. Device Status Text - HARDWARE-7597. Pelvic Re-Plate Cvd 3.5x 6ho - Amaral [id number] Implanted:Qty: 1 on 01/02/2004 Explanted:Qty: 1 on 05/23/2023 by Félix Mckeon M.D. at [facility] Hardware e.g. pins/screw s/rods [employer]uy [employer]s Description:Device Manufactu rer - Synthes. Device Status Text - HARDWARE-7366. Right Hip Screw-Hgpii S-Tap 6.5 X 30mm - Amaral [id number] Implanted:Qty: 2 on 02/03/2009 Explanted:Qty: 2 on 05/23/2023 by Vel Vinson M.D., M.B.A. at [facility] Hardware e.g. pins/screw s/rods [employer] Description:Device Manufactu rer - Nori. Device Status Text - HARDWARE-34167. Screw-Hgpii S-Tap 6.5 X 35mm - Amaral [id number] Implanted:Qty: 1 on 02/03/2009 Explanted:Qty: 1 on 05/23/2023 by Vel Vinson M.D., M.B.A. at [facility] Hardware e.g. pins/screw s/rods [employer] Description:Device Manufactu rer - Nori. Device Status Text - HARDWARE-99430. 6.5 Saniya Screw-16mm Thread 65 - Amaral [id number] Implanted:Qty: 1 on 01/02/2004 Explanted:Qty: 1 on 05/23/2023 by Vel Vinson M.D., M.B.A. at [facility] Hardware e.g. pins/screw s/rods Depuy [employer]ynthes Description:Device Manufactu rer - Synthes. Device Status Text - HARDWARE-33111. Implex-Shell Hedro 54mm - Amaral [id number] Implanted:Qty: 1 on 02/03/2009 Explanted:Qty: 1 on 05/23/2023 by Vel Vinson M.D., M.B.A. at [facility] Hip Implant Other/Legacy - See Implant Description [employer] Description:Device Manufactu rer - Nori. Body Location - Other. Right. Device Status Text - HIP [id number]. [place]-Stem [place] 8 Hi - Amaral [id number] Implanted:Qty: 1 on 02/03/2009 Explanted:Qty: 1 on 05/23/2023 by Vel Vinson M.D., M.B.A. at [facility] Hip Implant Other/Legacy - See Implant Description [employer] Description:Device Manufactu rer - [employer]. Body Location - Other. Right. Device Status Text - HIP [id number]. Nori Liner 0 Degree 32 X 54m - Amaral [id number] Implanted:Qty: 1 on 02/03/2009 Explanted:Qty: 1 on 05/23/2023 by Vel Vinson M.D., M.B.A. at [facility] Hip Implant Other/Legacy - See Implant Description [employer] Description:Device Manufactu rer - Nori. Body Location - Other. Right. Device Status Text - HIP [id number]. Dep. Head Prodigy 32 + 1.0 - Amaral [id number] Implanted:Qty: 1 on 02/03/2009 Explanted:Qty: 1 on 05/23/2023 by Vel Vinson M.D., M.B.A. at [facility] Hip Implant Other/Legacy - See Implant Description [employer] Description:Device Manufactu rer - [employer]. Body Location - Other. Right. Device Status Text - [id number] [id number]. Hip Stm Prs Cmnt Rt 3 200 - [id number] Implanted:Qty: 1 on 05/23/2023 by Félix Mckeon M.D. at [facility] Explanted:Qty: 1 on 01/06/2024 by Vel Vinson M.D., M.B.A. at [facility] Hip Implant Right: Hip [employer]uy [employer] 08/16/2032 [id number] / / [id number] Lnr Emp Aox Std +4 40x54 - [id number] Implanted:Qty: 1 on 05/23/2023 by Félix Mckeon M.D. at [facility] Explanted:Qty: 1 on 01/06/2024 by Vel Vinson M.D., M.B.A. at [facility] Hip Implant Right: Hip [employer] 02/16/2027 0 / / [id number] Fem Hd Art +12ofst 40 - [id number] Implanted:Qty: 1 on 05/23/2023 by Vel Vinson M.D., M.B.A. at [facility] Explanted:Qty: 1 on 01/06/2024 by Vel Vinson M.D., M.B.A. at [facility] Hip Implant Right: Hip [employer]uy [employer] 02/16/2033 0 / / [id number] Procedures Procedure Name Priority Date/Time Associated Diagnosis Comments HEMOGLOBIN, B STAT 01/20/2024 8:57 AM [employer] SARS CORONAVIRUS 2, PCR RAPID, V STAT 01/20/2024 8:35 AM [employer] GLUCOSE POCT, B Routine 01/20/2024 7:40 AM [employer] GLUCOSE POCT, B Routine 01/20/2024 7:04 AM [employer] GLUCOSE POCT, B Routine 01/19/2024 8:14 PM [employer] GLUCOSE POCT, B Routine 01/19/2024 4:30 PM [employer] GLUCOSE POCT, B Routine 01/19/2024 11:31 AM [employer] GLUCOSE POCT, B Routine 01/19/2024 7:50 AM [employer] GLUCOSE POCT, B Routine 01/18/2024 9:04 PM [employer] GLUCOSE POCT, B Routine 01/18/2024 6:11 PM [employer] GLUCOSE POCT, B Routine 01/18/2024 4:33 PM [employer] GLUCOSE POCT, B Routine 01/18/2024 11:55 AM [employer] GLUCOSE POCT, B Routine 01/18/2024 8:05 AM [employer] ALKALINE PHOSPHATASE, S/P Routine 01/18/2024 4:17 AM [employer] BASIC METABOLIC PANEL, S/P Routine 01/18/2024 4:17 AM [employer] CBC WITHOUT DIFFERENTIAL, B Routine 01/18/2024 4:17 AM [employer] GLUCOSE POCT, B Routine 01/18/2024 1:44 AM [employer] GLUCOSE POCT, B Routine 01/17/2024 8:35 PM [employer] POTASSIUM, S/P STAT 01/17/2024 5:03 PM [employer] HEMOGLOBIN, B STAT 01/17/2024 5:03 PM [employer] GLUCOSE POCT, B Routine 01/17/2024 5:01 PM [employer] GLUCOSE POCT, B Routine 01/17/2024 11:37 AM [employer] TRANSFUSE RED BLOOD CELLS Routine 01/17/2024 9:36 AM [employer] GLUCOSE POCT, B Routine 01/17/2024 7:51 AM [employer] BASIC METABOLIC PANEL, S/P Routine 01/17/2024 6:08 AM [employer] CBC WITHOUT DIFFERENTIAL, B Routine 01/17/2024 6:08 AM [employer] ALKALINE PHOSPHATASE, S/P Routine 01/17/2024 6:08 AM [employer] GLUCOSE POCT, B Routine 01/17/2024 2:09 AM [employer] GLUCOSE POCT, B Routine 01/16/2024 8:16 PM [employer] GLUCOSE POCT, B Routine 01/16/2024 5:45 PM [employer] GLUCOSE POCT, B Routine 01/16/2024 3:15 PM [employer] ADULT OXYGEN THERAPY Routine 01/16/2024 3:07 PM [employer] DX FEMUR RIGHT 2 VIEWS RAD - Routine (most inpatients and all outpatients) 01/16/2024 3:00 PM [employer] PATIENT STATUS, ABG STAT 01/16/2024 1:17 PM [employer] GLUCOSE, WHOLE BLOOD STAT 01/16/2024 1:17 PM [employer] POTASSIUM, B STAT 01/16/2024 1:17 PM [employer] SODIUM, B STAT 01/16/2024 1:17 PM [employer] CALCIUM, IONIZED, S/B STAT 01/16/2024 1:17 PM [employer] ABG W/COOX STAT 01/16/2024 1:17 PM [employer] AUTOLOGOUS RED BLOOD CELLS-CELL SALVAGE Routine 01/16/2024 12:48 PM [employer] FL FLUORO LESS THAN 1 HOUR RAD - Routine (most inpatients and all outpatients) 01/16/2024 12:43 PM [employer] PATIENT STATUS, ABG STAT 01/16/2024 12:02 PM [employer] GLUCOSE, WHOLE BLOOD STAT 01/16/2024 12:02 PM [employer] POTASSIUM, B STAT 01/16/2024 12:02 PM [employer] SODIUM, B STAT 01/16/2024 12:02 PM [employer] CALCIUM, IONIZED, S/B STAT 01/16/2024 12:02 PM [employer] ABG W/COOX STAT 01/16/2024 12:02 PM [employer] TRANSFUSE RED BLOOD CELLS Routine 01/16/2024 11:08 AM [employer] PATIENT STATUS, ABG STAT 01/16/2024 11:00 AM [employer] GLUCOSE, WHOLE BLOOD STAT 01/16/2024 11:00 AM [employer] POTASSIUM, B STAT 01/16/2024 11:00 AM [employer] SODIUM, B STAT 01/16/2024 11:00 AM [employer] CALCIUM, IONIZED, S/B STAT 01/16/2024 11:00 AM [employer] ABG W/COOX STAT 01/16/2024 11:00 AM [employer] TRANSFUSE RED BLOOD CELLS Routine 01/16/2024 9:58 AM [employer] PATIENT STATUS, ABG STAT 01/16/2024 9:32 AM [employer] GLUCOSE, WHOLE BLOOD STAT 01/16/2024 9:32 AM [employer] POTASSIUM, B STAT 01/16/2024 9:32 AM [employer] SODIUM, B STAT 01/16/2024 9:32 AM [employer] CALCIUM, IONIZED, S/B STAT 01/16/2024 9:32 AM [employer] ABG W/COOX STAT 01/16/2024 9:32 AM [employer] LDA ANE ARTERIAL LINE INSERTION Routine 01/16/2024 8:41 AM [employer] SC ARTL CATH/CNULA MONITOR PERC Routine 01/16/2024 8:41 AM [employer] LDA ANE ENDOTRACHEAL AIRWAY Routine 01/16/2024 8:19 AM [employer] SURGICAL MANAGEMENT SHAFT FRACTURE FEMUR 01/16/2024 7:45 AM [employer] Fracture Periprosthetic Hip Initial Right (HCC) GLUCOSE POCT, B Routine 01/16/2024 5:31 AM [employer] HEMOGLOBIN, B Routine 01/15/2024 8:04 PM [employer] GLUCOSE POCT, B Routine 01/15/2024 4:15 PM [employer] TRANSFUSE RED BLOOD CELLS Routine 01/15/2024 10:50 AM [employer] GLUCOSE POCT, B Routine 01/15/2024 10:00 AM [employer] DX SHOULDER RIGHT 2+ VIEWS RAD - Semiurgent (Fast; most ED patients; some inpatients) 01/15/2024 8:42 AM [employer] PREPARE RED BLOOD CELLS Routine 01/15/2024 8:24 AM [employer] PREPARE RED BLOOD CELLS Routine 01/15/2024 8:24 AM [employer] PREPARE RED BLOOD CELLS STAT 01/15/2024 8:24 AM [employer] PREPARE RED BLOOD CELLS Routine 01/15/2024 8:24 AM [employer] TYPE AND SCREEN Routine 01/15/2024 8:24 AM [employer] TROPONIN T, 2H/6H REFLEX, 5TH GEN, P Timed 01/15/2024 8:[address] [facility] [address] FEMUR RIGHT WITHOUT IV CONTRAST RAD - Routine (most inpatients and all outpatients) 01/15/2024 8:[address] [employer] CT THORACIC AND LUMBAR SPINE BY RECONSTRUCTION RAD - Semiurgent (Fast; most ED patients; some inpatients) 01/15/2024 6:[address] [employer] [address] ABDOMEN PELVIS WITH IV CONTRAST RAD - Semiurgent (Fast; most ED patients; some inpatients) 01/15/2024 6:51 AM [employer] CT CHEST WITH IV CONTRAST RAD - Semiurgent (Fast; most ED patients; some inpatients) 01/15/2024 6:51 AM [employer] CT CERVICAL SPINE WITHOUT IV CONTRAST RAD - Semiurgent (Fast; most ED patients; some inpatients) 01/15/2024 6:51 AM [employer] CT HEAD WITHOUT IV CONTRAST RAD - Semiurgent (Fast; most ED patients; some inpatients) 01/15/2024 6:51 AM [employer] DX HIP AND PELVIS LEFT 2-3 VIEWS RAD - Semiurgent (Fast; most ED patients; some inpatients) 01/15/2024 6:42 AM [employer] DX CHEST 1 VIEW RAD - Semiurgent (Fast; most ED patients; some inpatients) 01/15/2024 6:40 AM [employer] DX FEMUR RIGHT 2 VIEWS RAD - Semiurgent (Fast; most ED patients; some inpatients) 01/15/2024 6:40 AM [employer] CREATINE KINASE (CK), S STAT 01/15/2024 5:58 AM [employer] PROTHROMBIN TIME (PT), P STAT 01/15/2024 5:58 AM [employer] TROPONIN T, BASELINE, 5TH GEN, P STAT 01/15/2024 5:58 AM [employer] LACTATE, B/P STAT 01/15/2024 5:58 AM [employer] LIPASE, S/P STAT 01/15/2024 5:58 AM [employer] HEPATIC FUNCTION PANEL, S STAT 01/15/2024 5:58 AM [employer] BASIC METABOLIC PANEL, S/P STAT 01/15/2024 5:58 AM [employer] CBC WITH DIFFERENTIAL, B STAT 01/15/2024 5:58 AM [employer] ECG Routine 01/15/2024 5:42 AM [employer] GLUCOSE POCT, B Routine 01/09/2024 8:07 AM [employer] BASIC METABOLIC PANEL, S/P STAT 01/09/2024 7:18 AM [employer] HEMOGLOBIN, B STAT 01/09/2024 7:18 AM [employer] GLUCOSE POCT, B Routine 01/09/2024 2:48 AM [employer] GLUCOSE POCT, B Routine 01/08/2024 11:26 PM [employer] DX CHEST PORTABLE 1 VIEW RAD - Routine (most inpatients and all outpatients) 01/08/2024 11:13 PM [employer] GLUCOSE POCT, B Routine 01/08/2024 9:55 PM [employer] GLUCOSE POCT, B Routine 01/08/2024 6:03 PM [employer] GLUCOSE POCT, B Routine 01/08/2024 12:33 PM [employer] REMOTE OXIMETRY MONITORING CONT. Routine 01/08/2024 8:01 AM [employer] GLUCOSE POCT, B Routine 01/08/2024 7:24 AM [employer] BASIC METABOLIC PANEL, S/P Routine 01/08/2024 7:21 AM [employer] CBC WITH DIFFERENTIAL, B Routine 01/08/2024 7:21 AM [employer] GLUCOSE POCT, B Routine 01/08/2024 2:54 AM [employer] GLUCOSE POCT, B Routine 01/07/2024 9:48 PM [employer] GLUCOSE POCT, B Routine 01/07/2024 6:26 PM [employer] HEMOGLOBIN, B Timed 01/07/2024 4:29 PM [employer] GLUCOSE POCT, B Routine 01/07/2024 3:10 PM [employer] NURSING IMAGE EXAM Routine 01/07/2024 2:20 PM [employer] TRANSFUSE RED BLOOD CELLS Routine 01/07/2024 9:56 AM [employer] TRANSFUSE RED BLOOD CELLS Routine 01/07/2024 8:06 AM [employer] REMOTE OXIMETRY MONITORING CONT. Routine 01/07/2024 8:01 AM [employer] GLUCOSE POCT, B Routine 01/07/2024 7:48 AM [employer] CBC WITHOUT DIFFERENTIAL, B Routine 01/07/2024 3:35 AM [employer] BASIC METABOLIC PANEL, S/P Routine 01/07/2024 3:35 AM [employer] HEMOGLOBIN A1C, B Routine 01/07/2024 3:35 AM [employer] GLUCOSE POCT, B Routine 01/07/2024 2:55 AM [employer] GLUCOSE POCT, B Routine 01/06/2024 9:38 PM [employer] REMOTE OXIMETRY MONITORING CONT. Routine 01/06/2024 8:00 PM [employer] REMOTE OXIMETRY MONITORING CONT. STAT 01/06/2024 8:00 PM [employer] REMOTE OXIMETRY MONITORING CONT. Routine 01/06/2024 4:51 PM [employer] REMOTE OXIMETRY MONITORING CONT. STAT 01/06/2024 4:48 PM [employer] GLUCOSE POCT, B Routine 01/06/2024 3:31 PM [employer] ADULT OXYGEN THERAPY Routine 01/06/2024 2:08 PM [employer] DX HIP RIGHT 2-3 VIEWS RAD - Routine (most inpatients and all outpatients) 01/06/2024 2:00 PM [employer] SODIUM, B STAT 01/06/2024 1:05 PM [employer] POTASSIUM, B STAT 01/06/2024 1:05 PM [employer] PATIENT STATUS, ABG STAT 01/06/2024 1:05 PM [employer] HEMOGLOBIN, WHOLE BLOOD STAT 01/06/2024 1:05 PM [employer] GLUCOSE, WHOLE BLOOD STAT 01/06/2024 1:05 PM [employer] CALCIUM, IONIZED, S/B STAT 01/06/2024 1:05 PM [employer] LACTATE, B STAT 01/06/2024 1:05 PM [employer] ABG W/O COOX STAT 01/06/2024 1:05 PM [employer] TRANSFUSE RED BLOOD CELLS Routine 01/06/2024 12:05 PM [employer] DX HIP RIGHT 2-3 VIEWS RAD - Routine (most inpatients and all outpatients) 01/06/2024 11:53 AM [employer] HEMOGLOBIN, WHOLE BLOOD STAT 01/06/2024 11:13 AM [employer] GLUCOSE POCT, B Routine 01/06/2024 11:04 AM [employer] DX HIP RIGHT 2-3 VIEWS RAD - Routine (most inpatients and all outpatients) 01/06/2024 11:00 AM [employer] DX PELVIS 1-2 VIEWS RAD - Routine (most inpatients and all outpatients) 01/06/2024 10:24 AM [employer] DX PELVIS 1-2 VIEWS RAD - Routine (most inpatients and all outpatients) 01/06/2024 10:00 AM [employer] PATIENT STATUS, ABG STAT 01/06/2024 9:32 AM [employer] ABG W/COOX STAT 01/06/2024 9:32 AM [employer] LDA ANE ARTERIAL LINE INSERTION Routine 01/06/2024 9:28 AM [employer] SC ARTL CATH/CNULA MONITOR PERC Routine 01/06/2024 9:28 AM [employer] BACTERIA CULT, AEROBE/ANAEROBE+SUSC Routine 01/06/2024 9:28 AM [employer] BACTERIA CULT, AEROBE/ANAEROBE+SUSC Routine 01/06/2024 9:28 AM [employer] MYCOBACTERIAL CULTURE, V Routine 01/06/2024 9:28 AM [employer] SAL[employer] MYCOBACTERIAL CULTURE, V Routine 01/06/2024 9:28 AM [employer] ACID FAST SMEAR FOR MYCOBACTERIUM Routine 01/06/2024 9:28 AM [employer] Infection Total Hip Arthroplasty Subsequent Right ACID FAST SMEAR FOR MYCOBACTERIUM Routine 01/06/2024 9:28 AM [employer] Infection Total Hip Arthroplasty Subsequent Right FUNGAL CULTURE, ROUTINE Routine 01/06/2024 9:28 AM [employer] Infection Total Hip Arthroplasty Subsequent Right FUNGAL CULTURE, ROUTINE Routine 01/06/2024 9:28 AM [employer] Infection Total Hip Arthroplasty Subsequent Right SURGICAL PATHOLOGY, [facility] Routine 01/06/2024 9:13 AM [employer] Infection Total Hip Arthroplasty Subsequent Right BACTERIA CULT, AEROBE/ANAEROBE+SUSC Routine 01/06/2024 9:08 AM [employer] MYCOBACTERIAL CULTURE, V Routine 01/06/2024 9:08 AM [employer] ACID FAST SMEAR FOR MYCOBACTERIUM Routine 01/06/2024 9:08 AM [employer] Infection Total Hip Arthroplasty Subsequent Right FUNGAL CULTURE, ROUTINE Routine 01/06/2024 9:08 AM [employer] Infection Total Hip Arthroplasty Subsequent Right GLUCOSE POCT, B Routine 01/06/2024 9:00 AM [employer] LDA ANE ENDOTRACHEAL AIRWAY Routine 01/06/2024 8:09 AM [employer] ARTHROPLASTY REVISION FEMORAL+ACETABULAR HIP 01/06/2024 7:34 AM [employer] Infection Total Hip Arthroplasty Subsequent Right PREPARE RED BLOOD CELLS Routine 01/06/2024 6:30 AM [employer] PREPARE RED BLOOD CELLS STAT 01/06/2024 6:30 AM [employer] TYPE AND SCREEN Routine 01/06/2024 6:30 AM [employer] GLUCOSE POCT, B Routine 01/06/2024 6:06 AM [employer] ORTHOPEDIC SURGERY IMAGE EXAM Routine 01/06/2024 12:00 AM [employer] DX HIP AND PELVIS RIGHT 2-3 VIEWS RAD - Routine (most inpatients and all outpatients) 01/05/2024 10:00 AM [employer] Infection Total Hip Arthroplasty Subsequent Right IRON AND TOT IRON-BINDING CAPACITY, S/P Routine 01/05/2024 9:26 AM [employer] FERRITIN, S Routine 01/05/2024 9:26 AM [employer] RETICULOCYTE PROFILE, B Routine 01/05/2024 9:26 AM [employer] CBC-PREOP WITH REFLEX ANEMIA PANEL Routine 01/05/2024 9:26 AM [employer] Anemia HEPATIC FUNCTION PANEL, S Routine 01/05/2024 9:26 AM [employer] Infection Total Hip Arthroplasty Subsequent Right SEDIMENTATION RATE, B Routine 01/05/2024 9:26 AM [employer] Infection Total Hip Arthroplasty Subsequent Right C-REACTIVE PROTEIN (CRP), S/P Routine 01/05/2024 9:26 AM [employer] Infection Total Hip Arthroplasty Subsequent Right HEMOGLOBIN A1C, B Routine 01/05/2024 9:26 AM [employer] Infection Total Hip Arthroplasty Subsequent Right BASIC METABOLIC PANEL, S/P Routine 01/05/2024 9:26 AM [employer] Infection Total Hip Arthroplasty Subsequent Right HEMOGLOBIN, B Routine 12/03/2023 8:23 AM CDT [...] CDT ECG STAT 11/28/2023 3:18 PM CDT LIPID PANEL, S STAT 05/24/2023 5:59 AM CDT ALBUMIN, RANDOM, U Routine 03/10/2023 11:30 AM [employer] Diabetes Mellitus Type 2 Ulcer Foot Hyperglycemic (HCC) from Last 3 Months or Most Recently Relevant to Health Maintenance Results * (ABNORMAL) Hemoglobin (01/20/2024 8:57 AM [employer]) Only the most recent of7 resultswithin the time period is included. Hemoglobin 8.6(L) 13.2 - 16.6 g/dL 01/20/2024 9:07 AM [employer] STMA Blood 01/20/2024 8:57 AM [employer] 01/20/2024 9:06 AM [employer] Lizeth IRWIN, P.A.-C. LAB BLOOD ADD-ON Final Result [facility] [address] [place] [address], [place] [facility] [address] [place] [address] * SARS Coronavirus 2, PCR Rapid Symptomatic (01/20/2024 8:35 AM [employer]) SARS CoV-2, PCR, Rapid, V Undetected Undetected 01/20/2024 9:04 AM [employer] STMA SARS Coronavirus 2, Rapid, Source Swab, Nasopharynx 01/20/2024 8:42 AM [employer] STMA Swab (Nasopharynx) 01/20/2024 8:35 AM [employer] 01/20/2024 8:42 AM [employer] us Lizeth IRWIN PBelkisAPrem. LAB MICROBIOLOGY - GENERAL ORDERABLES Final Result Performing Organization Address City/[facility] Co de Phone Number [facility] [address] [place] [address], [facility] STMA [facility] [address] [place] [address] * Glucose, POCT (01/20/2024 7:40 AM [employer]) Only the most recent of55 resultswithin the time period is included. Pathologist [facility] Glucose, POCT, B 115 70 - 140 mg/dL 01/20/2024 7:43 AM [employer] PCLX Blood 01/20/2024 7:40 AM [employer] 01/20/2024 7:43 AM [employer] us Unknown Provider LAB POCT ORDERABLES-MANUAL Cata l Result Performing Organization Address City/[facility] Co de Phone Number [facility] [address] [place] [address], [facility] PCLX [facility] [address] [place] [address] * (ABNORMAL) CBC without Differential (01/18/2024 4:17 AM [employer]) Only the most recent of4 resultswithin the time period is included. Hemoglobin 8.8(L) 13.2 - 16.6 g/dL 01/18/2024 5:34 AM [employer] DTL Hematocrit 26.6(L) 38.3 - 48.6 % 01/18/2024 5:34 AM [employer] DTL Erythrocytes 2.97(L) 4.35 - 5.65 x10(12)/L 01/18/2024 5:34 AM [employer] DTL MCV 89.6 78.2 - 97.9 fL 01/18/2024 5:34 AM [employer] DTL RBC Distrib Width 15.9(H) 11.8 - 14.5 % 01/18/2024 5:34 AM [employer] DTL Platelet Count 243 135 - 317 x10(9)/L 01/18/2024 5:34 AM [employer] DTL Leukocytes 15.3(H) 3.4 - 9.6 x10(9)/L 01/18/2024 5:34 AM [employer] DTL Blood (Blood, Venous) 01/18/2024 4:17 AM [employer] 01/18/2024 5:10 AM [employer] Flako Loaiza M.D. LAB BLOOD ADD-ON Final Res ult Performing Organization Address City/[facility] Co de Phone Number [facility] [address] [place] [address], [place] [address] * (ABNORMAL) Alkaline Phosphatase (01/18/2024 4:17 AM [employer]) Only the most recent of2 resultswithin the time period is included. [facility] Alkaline Phosphatase, S 137(H) 40 - 129 U/L 01/18/2024 5:34 AM [employer] DTL Blood (Blood, Venous) 01/18/2024 4:17 AM [employer] 01/18/2024 5:18 AM [employer] Flako Loaiza M.D. LAB BLOOD ADD-ON Final Res ult Performing Organization Address [facility] Co de Phone Number [facility] [address] [place] [address], [place] [address] * (ABNORMAL) Basic Metabolic Panel (01/18/2024 4:17 AM [employer]) Only the most recent of10 resultswithin the time period is included. [facility] Potassium, S 4.9 3.6 - 5.2 mmol/L 01/18/2024 5:34 AM [employer] DTL Sodium, S 137 135 - 145 mmol/L 01/18/2024 5:34 AM [employer] DTL Chloride, S 103 98 - 107 mmol/L 01/18/2024 5:34 AM [employer] DTL Bicarbonate, S 26 22 - 29 mmol/L 01/18/2024 5:34 AM [employer] DTL Anion Gap 8 7 - 15 01/18/2024 5:34 AM [employer] DTL BUN (Blood Urea Nitrogen), S 35(H) 8 - 24 mg/dL 01/18/2024 5:34 AM [employer] DTL Creatinine 1.04 0.74 - 1.35 mg/dL 01/18/2024 5:34 AM [employer] DTL Estimated GFR (eGFR) 83 >=60 mL/min/BSA 01/18/2024 5:34 AM [employer] DTL Comment: Estimated GFR calculated using the 2020 CKD_EPI creatinine equation. Calcium, Total, S 9.0 8.6 - 10.0 mg/dL 01/18/2024 5:34 AM [employer] DTL Glucose, S 104 70 - 140 mg/dL 01/18/2024 5:34 AM [employer] DTL Blood (Blood, Venous) 01/18/2024 4:17 AM [employer] 01/18/2024 5:18 AM [employer] us Flako Loaiza M.D. LAB BLOOD ADD-ON Final Res ult Performing Organization Address City/[facility]/ZIP Co de Phone Number [facility] [address] DTL [facility] [address] [place] [address] * Potassium (01/17/2024 5:03 PM [employer]) Potassium, P 5.0 3.6 - 5.2 mmol/L 01/17/2024 5:19 PM [employer] STMA Blood (Blood, Venous) 01/17/2024 5:03 PM [employer] 01/17/2024 5:07 PM [employer] us Daljit Zavala M.D. LAB BLOOD ADD-ON Final Resul t [facility] [address] STMA [facility] [address] [place] [address] * Transfuse Red Blood Cells : (01/17/2024 12:51 PM [employer]) Only the most recent of6 resultswithin the time period is included. Daljit Zavala M.D. BLOOD TRANSFUSION ORDERABLES Final Result * DX Femur Right 2 Views (01/16/2024 3:00 PM [employer]) Only the most recent of2 resultswithin the time period is included. Anatomical Region Laterality Modality Lower Extremity, Femur, Musc uloskeletal RST LOS, Musculoskeletal ARZ LOS, Muskuloskeletal FLA LOS Right Digit al Radiography Impressions 01/16/2024 3:08 PM [employer] Metallic plate and multiscrew fixation of the periprosthetic femoral fracture. No gross hardware failure. Drains. Narrative 01/16/2024 3:08 PM [employer] EXAM: DX FEMUR RIGHT 2 VIEWS Procedure Note Boyd Kwong D.O. - 01/16/2024 EXAM: DX FEMUR RIGHT 2 VIEWS IMPRESSION: Metallic plate and multiscrew fixation of the periprosthetic femoralfracture. No gross hardware failure. Drains. us Ester Vann M.D. IMG DIAGNOSTIC IMAGING PRO CEDURES Final Result * Patient Status (01/16/2024 1:17 PM [employer]) Only the most recent of6 resultswithin the time period is included. Temperature 36.7 37.0 deg C 01/16/2024 1:17 PM [employer] STMA FIO2 0.38 0.21=AIR 01/16/2024 1:17 PM [employer] STMA Blood 01/16/2024 1:17 PM [employer] 01/16/2024 1:17 PM [employer] Mariel Beckman R.N. LAB BLOOD NON ADD-ON Fi nal Result [facility] [address] [place] [address], [facility] STMA [facility] [address] [place] [address] * Sodium, B (01/16/2024 1:17 PM [employer]) Only the most recent of5 resultswithin the time period is included. Pathologist [facility] Sodium, B 135 135 - 145 mmol/L 01/16/2024 1:19 PM [employer] STMA Blood (Blood, Arterial Line) 01/16/2024 1:17 PM [employer] 01/16/2024 1:17 PM [employer] us Kaye Aguilar M.D. LAB BLOOD NON ADD-ON Fin al Result [facility] [address] [place] [address], [facility] [address] [place] [address] * (ABNORMAL) Blood Gas with Coox, Arterial (01/16/2024 1:17 PM [employer]) Only the most recent of5 resultswithin the time period is included. Pathologist [facility] pO2 164(H) 83 - 108 mm Hg 01/16/2024 1:19 PM [employer] STMA pCO2 37 35 - 48 mm Hg 01/16/2024 1:19 PM [employer] STMA pH 7.39 7.35 - 7.45 pH 01/16/2024 1:19 PM [employer] STMA Base Excess -3(L) -2 - 3 mmol/L 01/16/2024 1:19 PM [employer] STMA HCO3 22 22 - 26 mmol/L 01/16/2024 1:19 PM [employer] STMA Hemoglobin, B 8.2(L) 13.2 - 16.6 g/dL 01/16/2024 1:19 PM [employer] STMA O2Hb 97.0 94.0 - 98.0 % 01/16/2024 1:19 PM [employer] STMA COHb 2.4 <3.0 % 01/16/2024 1:19 PM [employer] STMA MetHb <1.0 <1.5 % 01/16/2024 1:19 PM [employer] STMA CtO2 11.5(L) 18.0 - 21.0 vol % 01/16/2024 1:19 PM [employer] STMA Blood (Blood, Arterial Line) 01/16/2024 1:17 PM [employer] 01/16/2024 1:17 PM [employer] us Kaye Aguilar M.D. LAB BLOOD NON ADD-ON Fin al Result Performing Organization Address City/[facility]/ZIP Co de Phone Number [facility] [address] [place] [address] * Potassium, Blood (01/16/2024 1:17 PM [employer]) Only the most recent of5 resultswithin the time period is included. Potassium, B 4.0 3.6 - 5.2 mmol/L 01/16/2024 1:19 PM [employer] STMA Blood (Blood, Arterial Line) 01/16/2024 1:17 PM [employer] 01/16/2024 1:17 PM [employer] us Kaye Aguilar M.D. LAB BLOOD NON ADD-ON Fin al Result Performing Organization Address [facility] Co de Phone Number [facility] [address] [place] [address], [facility] [address] [place] [address] * (ABNORMAL) Glucose, Whole Blood (01/16/2024 1:17 PM [employer]) Only the most recent of5 resultswithin the time period is included. Glucose 176(H) 70 - 140 mg/dL 01/16/2024 1:19 PM [employer] STMA Blood (Blood, Arterial Line) 01/16/2024 1:17 PM [employer] 01/16/2024 1:17 PM [employer] us Kaye Aguilar M.D. LAB BLOOD ADD-ON Final R esult Performing Organization Address City/[facility]/ZIP Co de Phone Number [facility] [address] [place] [address] * (ABNORMAL) Calcium, Ionized (01/16/2024 1:17 PM [employer]) Only the most recent of5 resultswithin the time period is included. Calcium, Ionized, B 4.33(L) 4.65 - 5.30 mg/dL 01/16/2024 1:19 PM [employer] STMA Blood (Blood, Arterial Line) 01/16/2024 1:17 PM [employer] 01/16/2024 1:17 PM [employer] us Kaye Aguilar M.D. LAB BLOOD NON ADD-ON Fin al Result [facility] [address] [place] [address] * Transfuse autologous RBC (Cell Salvage) : (01/16/2024 12:49 PM [employer]) us Kaye Aguilar M.D. BLOOD TRANSFUSION ORDERA BLES Final Result * FL Fluoro Less Than 1 Hour (01/16/2024 12:43 PM [employer]) Narrative 152 HOS LOS RST - 01/16/2024 12:47 PM [employer] This exam does not require a radiologist review or interpretation. Please refer to the patient's medical record on this date for clinical details. us Ester Vann M.D. IMG FLUOROSCOPY PROCEDURES Final Result 152 HOS LOS RST * SC ARTL CATH/CNULA MONITOR PERC, LDA ANE ARTERIAL LINE INSERTION (01/16/2024 8:41 AM [employer]) Narrative Kaye Aguilar M.D. - 01/16/2024 8:41 AM [employer] Mariel Beckman R.N. 01/16/2024 9:03 AM Invasive Catheter Date/Time: 01/16/2024 8:41 AM Performed by: Mariel Beckman R.N. Authorized by: Kaye Aguilar M.D. Location: OR PROCEDURE DETAILS: Line type: arterial Laterality: left Location: radial Location details: new site Age group: adult Catheter diameter: 20 Ga Technique: ultrasound guided Ultrasound guidance: image not saved Monitored: yes Number of attempts: 1 UNIVERSAL PROTOCOL All relevant documentation and testing were reviewed and available. All required blood products, implants, devices and or special equipment were made available as applicable. Pre-procedure verification was conducted and the correct site was marked if required. A fire risk and smoke assessment were done as applicable. The procedural time-out to verify correct patient, correct side/site, and procedure was conducted prior to performing the procedure and confirmed in a procedural pause. PRE-PROCEDURE DETAILS: Appropriate hand hygiene, gown, cap, mask, protective eyewear, sterile gloves, skin preparation, sterile drape, and strict aseptic technique were utilized as applicable for the procedure.: yes Skin preparation: chlorhexidine SEDATION / ANESTHESIA Anesthesia method: anesthesia POST-PROCEDURE DETAILS: Procedure completed successfully: yes Line secured: secured with sutureless device Chlorhexidine disc around insertion site and under catheter with slight turn: yes Notable Events - arterial: none Kaye Aguilar M.D. PROCEDURE/MINOR SURGICAL ORDERABLES Final Result * LDA ANE ENDOTRACHEAL AIRWAY (01/16/2024 8:19 AM [employer]) Narrative Mariel Beckman R.N. - 01/16/2024 8:19 AM [employer] Mariel Beckman R.N. 01/16/2024 9:03 AM Airway Date/Time: 01/16/2024 8:19 AM Performed by: Mariel Beckman R.N. Authorized by: Kaye Aguilar M.D. Patient location during procedure: OR / Procedure Area PROCEDURE DETAILS: Mask difficulty assessment: difficult mask two-handed) without oral airway Final airway type: video laryngoscope Laryngeal Manipulation: no Final best view of glottic structures - Cormack/Lehane Score: grade 1 ETT location: oral VL device: glide scope [place] scope blade size: 4 Tube size: 7.5 ETT distance at teeth/gum: 22 Oral tube type: standard ETT Cuffed: yes Number of attempt to successful placement: 1 Airway confirmation: bilateral breath sounds, positive ETCO2 and bilateral chest rise Other previous techniques attempted: none PRE PROCEDURE DETAILS: Pre evaluation for airway management: procedure Urgency: elective Preoxygenation: bag valve mask SEDATION / ANESTHESIA Anesthesia method: anesthesia POST PROCEDURE DETAILS: Procedure outcome: successful Notable Events: no complications Kaye Aguilar M.D. ANESTHESIA ORDERABLES Fi nal Result * DX Shoulder Right 2+ Views (01/15/2024 8:42 AM [employer]) Anatomical Region Laterality Modality Upper Extremity, Shoulder, M usculoskeletal RST LOS, Musculoskeletal ARZ LOS, Muskuloskeletal FLA LOS Right Digit al Radiography Impressions 01/15/2024 8:48 AM [employer] No definite acute displaced fracture or traumatic misalignment. Mild to moderate degenerative changes of the shoulder. Narrative 01/15/2024 8:48 AM [employer] EXAM: DX SHOULDER RIGHT 2+ VIEWS Procedure Note Boyd Kwong D.O. - 01/15/2024 EXAM: DX SHOULDER RIGHT 2+ VIEWS IMPRESSION: No definite acute displaced fracture or traumatic misalignment. Mild tomoderate degenerative changes of the shoulder. Result [facility] Park Dodd M.D. IMG DIAGNOSTIC IMAGING PROCED URES Final Result * (ABNORMAL) Troponin T, 2 Hour with 6 Hour Reflex, 5th Gen (01/15/2024 8:24 AM [employer]) Troponin T, 2 hr, 5th gen 38(H) <=15 ng/L 01/15/2024 8:50 AM [employer] STMA 2H Delta 3 ng/L 01/15/2024 8:50 AM [employer] STMA Comment:6 hour collection no t indicated. 2H Delta Interp Not Changing 01/15/2024 8:50 AM [employer] STMA Blood 01/15/2024 8:24 AM [employer] 01/15/2024 8:30 AM [employer] Martha N Eggum D.O., M.H.A. LAB BLOOD TROPONIN Fin al Result Performing Organization Address [facility] Co de Phone Number [facility] [address] [place] [address], [facility] STMA [facility] [address] [place] [address] * Type and Screen (with Reflex Antibody ID) (01/15/2024 8:24 AM [employer]) Only the most recent of3 resultswithin the time period is included. ABORh O Pos Not applicable 01/15/2024 8:50 AM [employer] STRM Antibody Screen Negative Negative 01/15/2024 9:04 AM [employer] STRM Type & Screen Expiration 01/18/2024 23:59 01/15/2024 8:50 AM [employer] STRM Testing Location Matthew DEFAULT 01/15/2024 8:31 AM [employer] STRM Blood (Blood, Venous) 01/15/2024 8:24 AM [employer] 01/15/2024 8:31 AM [employer] Park Dodd M.D. LAB BLOOD BANK TEST ORDERABLE S Final Result Performing Organization Address [facility] Co de Phone Number [facility] [address] [place] [address], [facility] [address] [place] [address] * CT Femur Right without IV Contrast (01/15/2024 8:02 AM [employer]) Anatomical Region Laterality Modality Lower Extremity, Femur, Musc uloskeletal RST LOS, Musculoskeletal ARZ LOS, Muskuloskeletal FLA LOS Right Computed Tomography, Compute d Tomography Impressions 01/15/2024 4:53 PM [employer] 1. Comminuted displaced and angulated periprosthetic femoral fracture. 2. Dense fluid collection in the subcutaneous tissue of the right hip. Findings may reflect a postoperative or posttraumatic hematoma. However, an underlying infection cannot be excluded. Narrative 01/15/2024 4:53 PM [employer] EXAM: CT FEMUR RIGHT WITHOUT IV CONTRAST No 3D post-processing performed. COMPARISON: Radiographs 01/15/2024 and 01/06/2024 FINDINGS: Postoperative changes of recent right hip arthroplasty revision with longstem component and cerclage wires. Redemonstrated comminuted displaced and angulated periprosthetic fracture involving the proximal to distal third of the femoral diaphysis and centered at the level just distal to the inferior margin the femoral stem. The distal fracture fragment is medially displaced relative to the proximal femur by approximately one full femoral shaft length. There is apex lateral angulation of the distal fracture fragment. A few comminuted fracture fragments are present about the dominant fracture. Additional ascending oblique and possibly spiral fracture lines involving the femur more proximally overlapping with the prosthesis (for example series 6, image 43). This extends superiorly to the level of the residual trochanteric region. Ossific fragments throughout the region of the greater trochanter. Subcutaneous edema throughout the imaged right leg extending proximally to the imaged flank. Scattered soft tissue gas throughout the thigh. Dense fluid collection about the superficial gluteal region proximal to the right greater trochanter measuring 6.7 x 3.8 x 6.8 cm (HU 31) with associated soft tissue tract to the overlying skin. Degenerative changes throughout the visualized pelvis and lumbosacral spine. Moderate degenerative arthritis of the right sacroiliac joint. Chondrocalcinosis of the knee. Large knee joint effusion with synovitis. Heterotopic ossification about the quadriceps tendon. Scattered benign bone islands. Excreted contrast within the urinary bladder. Small fat-containing right inguinal hernia. Vascular calcifications. us Patel GODINEZ CT PROCEDURES Final R esult * CT Thoracic and Lumbar Spine by Reconstruction (01/15/2024 6:51 AM [employer]) Anatomical Region Laterality Modality Thoracic Spine, Neuroradiolo gy RST [facility], [facility], Neuroradiology [facility] N/A Computed Tomography, Compute d Tomography Impressions 01/15/2024 8:48 AM [employer] 1. No acute fracture or traumatic malalignment of the thoracic or lumbar spine. 2. Chronic L5 pars defects with grade 1 spondylolisthesis at L5-S1. Advanced right and moderate left neural foraminal narrowing. Narrative 01/15/2024 8:48 AM [employer] EXAM: CT THORACIC AND LUMBAR SPINE BY RECONSTRUCTION COMPARISON: CT lumbar spine 11/20/2022 FINDINGS: No acute fracture or traumatic malalignment of the thoracic or lumbar spine. Thoracic and lumbar spine spondylosis and mild thoracic scoliosis. No high-grade spinal canal narrowing. Chronic L5 pars defects. Spondylolisthesis of L5 on S1 with advanced right and moderate left neural foraminal narrowing. Old superior endplate irregularity of L1 which may represent an old mild compression fracture deformity. Procedure Note Sreedhar Plunkett M.D. - 01/15/2024 EXAM: CT THORACIC AND LUMBAR SPINE BY RECONSTRUCTION COMPARISON: CT lumbar spine 11/20/2022 FINDINGS: No acute fracture or traumatic malalignment of the thoracic orlumbar spine. Thoracic and lumbar spine spondylosis and mild thoracicscoliosis. No high-grade spinal canal narrowing. Chronic L5 pars defects.Spondylolisthesis of L5 on S1 with advanced right and moderate left neural foraminal narrowing. Old superiorendplate irregularity of L1 which may represent an old mild compressionfracture deformity. IMPRESSION: 1. No acute fracture or traumatic malalignment of the thoracic or lumbarspine. 2. Chronic L5 pars defects with grade 1 spondylolisthesis at L5-S1.Advanced right and moderate left neural foraminal narrowing. Martha Walton D.O., M.H.A. IMG CT PROCEDURES Cata l Result * CT Abdomen Pelvis with IV Contrast (01/15/2024 6:51 AM [employer]) Anatomical Region Laterality Modality Abdomen, Pelvis, Abdominal R ST LOS, Abdominal ARZ LOS, Abdominal FLA LOS N/A Computed Tomograp hy, Computed Tomography 01/15/2024 6:47 AM [employer] Impressions 01/15/2024 11:02 AM [employer] Right femur periprosthetic fracture. Also, possible right shoulder anterior dislocation, recommend right shoulder radiographs for further evaluation. No other acute traumatic findings. Narrative 01/15/2024 11:02 AM [employer] EXAM: CT CHEST WITH IV CONTRAST, CT ABDOMEN PELVIS WITH IV CONTRAST COMPARISON: CT abdomen pelvis without and with IV contrast 11/28/2023, right femur radiographs 01/15/2024 FINDINGS: CT CHEST: The right glenohumeral joint is abnormal appearing and may be dislocated anteriorly. Small amount of fluid in the glenohumeral joint. Old rib fractures. Bilateral areas of air trapping and linear atelectasis. No other acute traumatic findings in the chest. CT ABDOMEN/PELVIS: No acute traumatic findings in the abdomen or pelvis. Normal appearance of the liver, pancreas, spleen, kidneys and adrenals. Cholelithiasis. Mild bladder wall thickening, nonspecific. Normal caliber small bowel. Normal caliber colon. No free fluid. Postoperative changes in the right femur of long hip arthroplasty. Significant soft tissue fluid, gas, and edema in the right lower extremity. Bilateral pars defects with grade 1 spondylolisthesis of L5 on S1. Please see separate CT cervical, thoracic, and lumbar spine reports for spinal findings. Procedure Note Fabiana Orta M.D. - 01/15/2024 EXAM: CT CHEST WITH IV CONTRAST, CT ABDOMEN PELVIS WITH IV CONTRAST COMPARISON: CT abdomen pelvis without and with IV contrast 11/28/2023,right femur radiographs 01/15/2024 FINDINGS: CT CHEST: The right glenohumeral joint is abnormal appearing and may be dislocatedanteriorly. Small amount of fluid in the glenohumeral joint. Old rib fractures. Bilateral areas of air trapping and linear atelectasis. No other acute traumatic findings in the chest. CT ABDOMEN/PELVIS: No acute traumatic findings in the abdomen or pelvis. Normal appearance of the liver, pancreas, spleen, kidneys and adrenals.Cholelithiasis. Mild bladder wall thickening, nonspecific. Normal caliber small bowel. Normal caliber colon. No free fluid. Postoperative changes in the right femur of long hip arthroplasty.Significant soft tissue fluid, gas, and edema in the right lowerextremity. Bilateral pars defects with grade 1 spondylolisthesis of L5 onS1. Please see separate CT cervical, thoracic, and lumbar spine reports forspinal findings. IMPRESSION: Right femur periprosthetic fracture. Also, possible right shoulderanterior dislocation, recommend right shoulder radiographs for furtherevaluation. No other acute traumatic findings. Martha Walton D.O., M.H.A. IMG CT PROCEDURES Cata l Result * CT Cervical Spine without IV Contrast (01/15/2024 6:51 AM [employer]) Anatomical Region Laterality Modality Cervical Spine, Neuroradiolo gy RST LOS, Neuroradiology ARZ LOS, Neuroradiology FLA LOS N/A Computed Tomography, Compute d Tomography 01/15/2024 6:41 AM [employer] Impressions 01/15/2024 8:16 AM [employer] No acute fracture or traumatic malalignment of the cervical spine. Narrative 01/15/2024 8:16 AM [employer] EXAM: CT CERVICAL SPINE WITHOUT IV CONTRAST COMPARISON: CT head neck angiogram 06/07/2023. FINDINGS: No acute fracture or traumatic malalignment of the cervical spine. 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 Cervical spine spondylosis without significant spinal canal narrowing. Multilevel neural foraminal narrowing greatest at C4-C5 bilaterally where it is moderate to advanced. Bilateral carotid artery stents; the right carotid artery stent remains narrowed, as on prior CT angiography (series 7, image 56). Procedure Note Sreedhar Plunkett M.D. - 01/15/2024 EXAM: CT CERVICAL SPINE WITHOUT IV CONTRAST COMPARISON: CT head neck angiogram 06/07/2023. FINDINGS: No acute fracture or traumatic malalignment of the cervicalspine. 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 Bilateralcarotid artery stents; the right carotid artery stent remains narrowed, ason prior CT angiography (series 7, image 56). IMPRESSION: No acute fracture or traumatic malalignment of the cervical spine. Martha Walton D.O., M.H.A. IMG CT PROCEDURES Cata l Result * CT Chest with IV Contrast (01/15/2024 6:51 AM [employer]) Anatomical Region Laterality Modality Chest, Thoracic RST LOS, Tho racic ARZ LOS, Thoracic ARZ LOS, Thoracic FLA LOS N/A Computed Tomography, Compute d Tomography 01/15/2024 6:47 AM [employer] Impressions 01/15/2024 11:02 AM [employer] Right femur periprosthetic fracture. Also, possible right shoulder anterior dislocation, recommend right shoulder radiographs for further evaluation. No other acute traumatic findings. Narrative 01/15/2024 11:02 AM [employer] EXAM: CT CHEST WITH IV CONTRAST, CT ABDOMEN PELVIS WITH IV CONTRAST COMPARISON: CT abdomen pelvis without and with IV contrast 11/28/2023, right femur radiographs 01/15/2024 FINDINGS: CT CHEST: The right glenohumeral joint is abnormal appearing and may be dislocated anteriorly. Small amount of fluid in the glenohumeral joint. Old rib fractures. Bilateral areas of air trapping and linear atelectasis. No other acute traumatic findings in the chest. CT ABDOMEN/PELVIS: No acute traumatic findings in the abdomen or pelvis. Normal appearance of the liver, pancreas, spleen, kidneys and adrenals. Cholelithiasis. Mild bladder wall thickening, nonspecific. Normal caliber small bowel. Normal caliber colon. No free fluid. Postoperative changes in the right femur of long hip arthroplasty. Significant soft tissue fluid, gas, and edema in the right lower extremity. Bilateral pars defects with grade 1 spondylolisthesis of L5 on S1. Please see separate CT cervical, thoracic, and lumbar spine reports for spinal findings. Procedure Note Fabiana Orta M.D. - 01/15/2024 EXAM: CT CHEST WITH IV CONTRAST, CT ABDOMEN PELVIS WITH IV CONTRAST COMPARISON: CT abdomen pelvis without and with IV contrast 11/28/2023,right femur radiographs 01/15/2024 FINDINGS: CT CHEST: The right glenohumeral joint is abnormal appearing and may be dislocatedanteriorly. Small amount of fluid in the glenohumeral joint. Old rib fractures. Bilateral areas of air trapping and linear atelectasis. No other acute traumatic findings in the chest. CT ABDOMEN/PELVIS: No acute traumatic findings in the abdomen or pelvis. Normal appearance of the liver, pancreas, spleen, kidneys and adrenals.Cholelithiasis. Mild bladder wall thickening, nonspecific. Normal caliber small bowel. Normal caliber colon. No free fluid. Postoperative changes in the right femur of long hip arthroplasty.Significant soft tissue fluid, gas, and edema in the right lowerextremity. Bilateral pars defects with grade 1 spondylolisthesis of L5 onS1. Please see separate CT cervical, thoracic, and lumbar spine reports forspinal findings. IMPRESSION: Right femur periprosthetic fracture. Also, possible right shoulderanterior dislocation, recommend right shoulder radiographs for furtherevaluation. No other acute traumatic findings. us Martha Walton D.O., M.H.A. IMG CT PROCEDURES Cata l Result * CT Head without IV Contrast (01/15/2024 6:51 AM [employer]) Anatomical Region Laterality Modality Head, Neuroradiology RST LOS , Neuroradiology ARZ LOS, Neuroradiology FLA LOS N/A Computed Tomography, Compute d Tomography 01/15/2024 6:39 AM [employer] Impressions 01/15/2024 7:24 AM [employer] Since 06/07/2023, expected evolution of the now chronic left MCA territory infarct. No acute intracranial findings. No cranial or facial fracture. Narrative 01/15/2024 7:24 AM [employer] EXAM: CT HEAD WITHOUT IV CONTRAST COMPARISON: CT head without contrast 06/07/2023 FINDINGS: Since 06/07/2023, expected evolution of the now chronic left MCA territory infarct. No intracranial hemorrhage, mass effect, or evidence of acute infarct. Moderate to severe leukoaraiosis. No cranial or facial fracture. Left maxillary sinus mucosal thickening with osteitis of the left maxillary sinus curiel, which can be seen with chronic sinusitis. The mastoid air cells are well aerated bilaterally. Procedure Note Sreedhar Plunkett M.D. - 01/15/2024 EXAM: CT HEAD WITHOUT IV CONTRAST COMPARISON: CT head without contrast 06/07/2023 FINDINGS: Since 06/07/2023, expected evolution of the now chronic left MCAterritory infarct. No intracranial hemorrhage, mass effect, or evidence ofacute infarct. Moderate to severe leukoaraiosis. No cranial or facialfracture. Left maxillary sinus mucosal thickening with osteitis of the left maxillary sinus curiel, whichcan be seen with chronic sinusitis. The mastoid air cells are well aeratedbilaterally. IMPRESSION: Since 06/07/2023, expected evolution of the now chronic left MCA territoryinfarct. No acute intracranial findings. No cranial or facial fracture. Martha Wallace.Thuan, M.H.A. IMG CT PROCEDURES Cata l Result * DX Hip And Pelvis Left 2-3 Views (01/15/2024 6:42 AM [employer]) Anatomical Region Laterality Modality Lower Extremity, Pelvis, Hip , Musculoskeletal RST LOS, Musculoskeletal ARZ LOS, Muskuloskeletal FLA LOS Left Digit al Radiography Impressions 01/15/2024 9:15 AM [employer] No definite acute left fracture. Right hip long arthroplasty with cerclage wires. No gross hardware failure. Degenerative changes of the spine and pelvis. Narrative 01/15/2024 9:15 AM [employer] EXAM: DX HIP AND PELVIS LEFT 2-3 VIEWS Procedure Note Boyd Kwong D.O. - 01/15/2024 EXAM: DX HIP AND PELVIS LEFT 2-3 VIEWS IMPRESSION: No definite acute left fracture. Right hip long arthroplasty with cerclagewires. No gross hardware failure. Degenerative changes of the spine andpelvis. Martha Wallace.O., M.H.A. IMG DIAGNOSTIC IMAGING PROCEDURES Final Result * DX Chest 1 View (01/15/2024 6:40 AM [employer]) Anatomical Region Laterality Modality Chest, Thoracic RST LOS, Tho racic ARZ LOS, Thoracic FLA LOS N/A Digital Radiography Impressions 01/15/2024 7:59 AM [employer] No definite acute displaced fracture. No focal consolidation, large pleural effusion, or discernible pneumothorax. Stents in the bilateral carotid arteries. Presumed gallstones and right upper quadrant abdomen. Prominent cardiac silhouette. Narrative 01/15/2024 7:59 AM [employer] EXAM: DX CHEST 1 VIEW Procedure Note Boyd Kwong D.O. - 01/15/2024 EXAM: DX CHEST 1 VIEW IMPRESSION: No definite acute displaced fracture. No focal consolidation, largepleural effusion, or discernible pneumothorax. Stents in the bilateralcarotid arteries. Presumed gallstones and right upper quadrant abdomen.Prominent cardiac silhouette. us Martha Walton D.O., M.H.A. IMG DIAGNOSTIC IMAGING PROCEDURES Final Result * (ABNORMAL) Troponin T, Baseline with 2 Hour/6 Hour Reflex Biomarker Panel (01/15/2024 5:58 AM [employer]) Pathologist [facility] Troponin T, Baseline, 5th gen 35(H) <=15 ng/L 01/15/2024 6:19 AM [employer] [facility] Blood (Blood, Venous) 01/15/2024 5:58 AM [employer] 01/15/2024 6:03 AM [employer] Martha Walton D.O., M.H.A. LAB BLOOD [place]ON[place] [address], [place] [address] * (ABNORMAL) Hepatic Function Panel (01/15/2024 5:58 AM [employer]) Only the most recent of3 resultswithin the time period is included. Pathologist [facility] Bilirubin, Total, S 0.4 0.0 - 1.2 mg/dL 01/15/2024 6:50 AM [employer] DTL Bilirubin, Direct, S <0.2 0.0 - 0.3 mg/dL 01/15/2024 6:50 AM [employer] DTL Aspartate Aminotransferase (AST), S 33 8 - 48 U/L 01/15/2024 6:50 AM [employer] DTL Alanine Aminotransferase (ALT), S 25 7 - 55 U/L 01/15/2024 6:50 AM [employer] DTL Alkaline Phosphatase, S 163(H) 40 - 129 U/L 01/15/2024 6:50 AM [employer] DTL Albumin, S 3.4(L) 3.5 - 5.0 g/dL 01/15/2024 6:50 AM [employer] DTL Protein, Total, S 5.4(L) 6.3 - 7.9 g/dL 01/15/2024 6:50 AM [employer] DTL Blood (Blood, Venous) 01/15/2024 5:58 AM [employer] 01/15/2024 6:30 AM [employer] Martha Walton D.O., M.H.A. LAB BLOOD ADD-ON Final Result Performing Organization Address [facility] de Phone Number [facility] [address] [place] [address], [facility] DTL [facility] [address] [place] [address] * (ABNORMAL) Prothrombin Time (PT) (01/15/2024 5:58 AM [employer]) Pathologist [facility] Prothrombin Time, P 17.1(H) 9.4 - 12.5 sec 01/15/2024 6:09 AM [employer] [facility] INR 1.6 0.9 - 1.1 01/15/2024 6:09 AM [employer] [facility] Comment: ----ADDITIONAL INFORMATION---- Standard intensity warfarin therapeutic range: 2.0 to 3.0 High intensity warfarin therapeutic range: 2.5 to 3.5 Blood (Blood, Venous) 01/15/2024 5:58 AM [employer] 01/15/2024 6:03 AM [employer] Martha Walton D.O., M.H.A. LAB BLOOD ADD-ON Final Result Performing Organization Address [facility] de Phone Number [facility] [address] [place] [address], [facility] STMA [facility] [address] [place] [address] * (ABNORMAL) CBC with Differential, Blood (01/15/2024 5:58 AM [employer]) Only the most recent of5 resultswithin the time period is included. Hemoglobin 7.4(L) 13.2 - 16.6 g/dL 01/15/2024 6:06 AM [employer] [facility] Hematocrit 22.5(L) 38.3 - 48.6 % 01/15/2024 6:06 AM [employer] [facility] Erythrocytes 2.44(L) 4.35 - 5.65 x10(12)/L 01/15/2024 6:06 AM [employer] [facility] MCV 92.2 78.2 - 97.9 fL 01/15/2024 6:06 AM [employer] [facility] RBC Distrib Width 13.9 11.8 - 14.5 % 01/15/2024 6:06 AM [employer] [facility] Platelet Count 316 135 - 317 x10(9)/L 01/15/2024 6:06 AM [employer] [facility] Leukocytes 12.0(H) 3.4 - 9.6 x10(9)/L 01/15/2024 6:06 AM [employer] [facility] Neutrophils 8.37(H) 1.56 - 6.45 x10(9)/L 01/15/2024 6:06 AM [employer] PM Lymphocytes 1.51 0.95 - 3.07 x10(9)/L 01/15/2024 6:06 AM [employer] [facility] Monocytes 1.41(H) 0.26 - 0.81 x10(9)/L 01/15/2024 6:06 AM [employer] [facility] Eosinophils 0.64(H) 0.03 - 0.48 x10(9)/L 01/15/2024 6:06 AM [employer] [facility] Basophils 0.06 0.01 - 0.08 x10(9)/L 01/15/2024 6:06 AM [employer] [facility] Blood (Blood, Venous) 01/15/2024 5:58 AM [employer] 01/15/2024 6:02 AM [employer] Martha Walton D.O., M.H.A. LAB BLOOD ADD-ON Final Result [facility] [address] [place] [address], [facility] STMA [facility] [address] [place] [address] [facility] [address] [place] [address] * Lipase (01/15/2024 5:58 AM [employer]) Lipase, S 55 13 - 60 U/L 01/15/2024 6: 50 AM [employer] DTL Blood (Blood, Venous) 01/15/2024 5:58 AM [employer] 01/15/2024 6:30 AM [employer] Martha Walton D.O., M.H.A. LAB BLOOD ADD-ON Final Result Performing Organization Address City/[facility]/ZIP Co de Phone Number [facility] [address] [place] [address], [facility] [place] [address] [place] [address] * Lactate (01/15/2024 5:58 AM [employer]) Only the most recent of2 resultswithin the time period is included. Pathologist [facility] Lactate, P 1.2 0.5 - 2.2 mmol/L 01/15/2024 6:15 AM [employer] [facility] Blood (Blood, Venous) 01/15/2024 5:58 AM [employer] 01/15/2024 6:03 AM [employer] Marthagallo Walton D.O., M.H.A. LAB BLOOD NON ADD-ON F inal Result Performing Organization Address [facility] Co de Phone Number [facility] [address] [place] [address], [facility] STMA [facility] [address] [place] [address] * CK (Creatine Kinase) (01/15/2024 5:58 AM [employer]) Creatine Kinase (CK), S 233 39 - 308 U/L 01/15/2024 6:50 AM [employer] DTL Blood (Blood, Venous) 01/15/2024 5:58 AM [employer] 01/15/2024 6:30 AM [employer] Martha N Anton D.O., M.H.A. LAB BLOOD ADD-ON Final Result Performing Organization Address City/[facility]/ZIP Co de Phone Number [facility] [address] [place] [address], [facility] DTL [facility] [address] [place] [address] * ECG 12 Lead (01/15/2024 5:42 AM [employer]) Only the most recent of2 resultswithin the time period is included. Ventricular Rate ECG/Min 67 BPM MUSE SC Interval 168 ms MUSE QRSD Interval 92 ms MUSE QT Interval 418 ms MUSE QTC Interval 441 ms MUSE P [place] 12 degrees MUSE R [place] -1 degrees MUSE T Wave [place] 74 degrees MUSE 01/15/2024 5:42 AM [employer] 01/15/2024 11:07 AM [employer] Impressions MUSE - 01/15/2024 5:50 AM [employer] Normal sinus rhythm Low voltage QRS Nonspecific T wave abnormality When compared with ECG of 28-Nov-2023 15:18, SC interval has decreased Anterior forces have changed Narrative Procedure Note Flako Berg M.D. - 01/15/2024 IMPRESSION: Normal sinus rhythm Low voltage QRS Nonspecific T wave abnormality When compared with ECG of 28-Nov-2023 15:18, SC interval has decreased Anterior forces have changed Martha Walton D.O., M.H.A. ECG ORDERABLES Edited Result - Final MUSE NA * DX Chest Portable 1 View (01/08/2024 11:13 PM [employer]) Anatomical Region Laterality Modality Chest, Thoracic RST LOS, Tho racic ARZ LOS, Thoracic FLA LOS N/A Digital Radiography Impressions 01/09/2024 7:58 AM [employer] Since 06/07/2023, interval removal of previous central venous catheter. Remainder not significantly changed. Low lung volumes. Minimal atelectasis in the left lower lobe. Stable borderline cardiomegaly. [place] device. No definite focal airspace opacity. Narrative 01/09/2024 7:58 AM [employer] EXAM: DX CHEST PORTABLE 1 VIEW Procedure Note Frankie Oliva M.D. - 01/09/2024 EXAM: DX CHEST PORTABLE 1 VIEW IMPRESSION: Since 06/07/2023, interval removal of previous central venous catheter.Remainder not significantly changed. Low lung volumes. Minimal atelectasisin the left lower lobe. Stable borderline cardiomegaly. [place] device. Nodefinite focal airspace opacity. Poonam Hayes M.D. IMG DIAGNOSTIC IMAGING SC OCEDURES Final Result * Buttock/Sacrum-Nursing Image Exam (01/07/2024 2:20 PM [employer]) 01/07/2024 2:17 PM [employer] Narrative IIMS - 01/07/2024 2:20 PM [employer] This order has been created and auto-finalized to support the import of images acquired without order. The clinical documentation to support these images can be found on the encounter that produced images. Provider Not In System IMG NON RAD IMAGING PROCE DURES Final Result IIWV NA * Hemoglobin A1c (01/07/2024 3:35 AM [employer]) Only the most recent of2 resultswithin the time period is included. Hemoglobin A1c, B 5.1 4.0 - 5.6 % 01/07/2024 4:46 AM [employer] DTL Blood (Blood, Venous) 01/07/2024 3:35 AM [employer] 01/07/2024 3:58 AM [employer] Vel Vinson M.D., M.B.A. LAB BLOOD ADD-ON F inal Result [facility] [address] [place] [address], [place] DTL [facility] [address] [place] [address] * DX Hip Right 2-3 Views (01/06/2024 2:00 PM [employer]) Only the most recent of3 resultswithin the time period is included. Anatomical Region Laterality Modality Lower Extremity, Hip, Muscul oskeletal RST LOS, Musculoskeletal ARZ LOS, Muskuloskeletal FLA LOS Right Digit al Radiography Impressions 01/06/2024 2:14 PM [employer] Right revision ISRRAEL. Thin fracture line along and distal to the femoral stem. Tiny metallic fragments along the lateral femur. Negative for postoperative purposes. Narrative 01/06/2024 2:14 PM [employer] EXAM: DX HIP RIGHT 2-3 VIEWS Procedure Note Madison Dyer M.D. - 01/06/2024 EXAM: DX HIP RIGHT 2-3 VIEWS IMPRESSION: Right revision ISRRAEL. Thin fracture line along and distal to the femoralstem. Tiny metallic fragments along the lateral femur. Negative forpostoperative purposes. Vel Vinson M.D., M.B.A. IMG DIAGNOSTIC NIRMAL GING PROCEDURES Final Result * (ABNORMAL) Lactate, B (01/06/2024 1:05 PM [employer]) Lactate, B 3.0(H) 0.5 - 2.2 mmol/L 01/06/2024 1:26 PM [employer] METH Blood (Blood, Arterial Line) 01/06/2024 1:05 PM [employer] 01/06/2024 1:05 PM [employer] us Baltazar Pacheco M.D. LAB BLOOD NON ADD-ON Final Re sult [facility] [address] [place] [address], [facility] METH [facility] [address] [place] [address] * (ABNORMAL) Hemoglobin, Whole Blood (01/06/2024 1:05 PM [employer]) Only the most recent of2 resultswithin the time period is included. Hemoglobin, B 8.2(L) 13.2 - 16.6 g/dL 01/06/2024 1:12 PM [employer] METH Blood (Blood, Arterial Line) 01/06/2024 1:05 PM [employer] 01/06/2024 1:05 PM [employer] us Baltazar Pacheco M.D. LAB BLOOD NON ADD-ON Final Re sult Performing Organization Address [facility] Co de Phone Number [facility] [address] [place] [address], [facility] METH [facility] [address] [place] [address] * (ABNORMAL) Blood Gas without Coox, Arterial (01/06/2024 1:05 PM [employer]) pO2 166(H) 83 - 108 mm Hg 01/06/2024 1:12 PM [employer] METH pCO2 42 35 - 48 mm Hg 01/06/2024 1:12 PM [employer] METH pH 7.35 7.35 - 7.45 pH 01/06/2024 1:12 PM [employer] METH Base Excess -2 -2 - 3 mmol/L 01/06/2024 1:12 PM [employer] METH HCO3 23 22 - 26 mmol/L 01/06/2024 1:12 PM [employer] METH Blood (Blood, Arterial Line) 01/06/2024 1:05 PM [employer] 01/06/2024 1:05 PM [employer] us Baltazar Pacheco M.D. LAB BLOOD NON ADD-ON Final Re sult Performing Organization Address [facility] de Phone Number [facility] [address] [place] [address], [facility] METH [facility] [address] [place] [address] * DX Pelvis 1-2 Views (01/06/2024 10:24 AM [employer]) Only the most recent of2 resultswithin the time period is included. Anatomical Region Laterality Modality Pelvis, Musculoskeletal RST LOS, Musculoskeletal ARZ LOS, Muskuloskeletal FLA LOS N/A Digital Radiography Impressions 01/06/2024 10:50 AM [employer] Intraoperative image taken during right ISRRAEL reimplantation. Narrative 01/06/2024 10:50 AM [employer] EXAM: DX PELVIS 1-2 VIEWS Procedure Note Cara Poole M.D. - 01/06/2024 EXAM: DX PELVIS 1-2 VIEWS IMPRESSION: Intraoperative image taken during right ISRRAEL reimplantation. us Vel Vinson M.D., M.B.A. IMG DIAGNOSTIC NIRMAL GING PROCEDURES Final Result * SC ARTL CATH/CNULA MONITOR PERC, LDA ANE ARTERIAL LINE INSERTION (01/06/2024 9:28 AM [employer]) Narrative Baltazar Pacheco M.D. - 01/06/2024 9:28 AM [employer] Hanh Mckay CCRN 01/06/2024 9:31 AM Invasive Catheter Date/Time: 01/06/2024 9:28 AM Performed by: Hanh Mckay CCRN Authorized by: Baltazar Pacheco M.D. Care team members present 1. Baltazar Pacheco M.D. 2. Kayleigh Correia APRN, CRNA, D.N.PBelkis Location: OR PROCEDURE DETAILS: Line type: arterial Laterality: left Location: radial Location details: new site Age group: adult Catheter diameter: 20 Ga Catheter length (cm): 15 Technique: ultrasound guided Ultrasound guidance: image not saved Monitored: no Number of attempts: 2 UNIVERSAL PROTOCOL All relevant documentation and testing were reviewed and available. All required blood products, implants, devices and or special equipment were made available as applicable. Pre-procedure verification was conducted and the correct site was marked if required. A fire risk and smoke assessment were done as applicable. The procedural time-out to verify correct patient, correct side/site, and procedure was conducted prior to performing the procedure and confirmed in a procedural pause. PRE-PROCEDURE DETAILS: Appropriate hand hygiene, gown, cap, mask, protective eyewear, sterile gloves, skin preparation, sterile drape, and strict aseptic technique were utilized as applicable for the procedure.: yes Skin preparation: chlorhexidine SEDATION / ANESTHESIA Anesthesia method: anesthesia POST-PROCEDURE DETAILS: Procedure completed successfully: yes Line secured: secured with sutureless device Chlorhexidine disc around insertion site and under catheter with slight turn: yes Notable Events - arterial: none Baltazar Pacheco M.D. PROCEDURE/MINOR SURGICAL ORDE RABLES Final Result * Bacteria Culture, Aerobe / Anaerobe + Susc (01/06/2024 9:28 AM [employer]) Only the most recent of3 resultswithin the time period is included. Pathologist [facility] Bacteria Cult, Aerobe/Anaerob e+Susc No growth after 14 days of incubation. 01/20/2024 12:02 PM [employer] DTL Hip, Right 01/06/2024 9:28 AM [employer] 01/06/2024 11:05 AM [employer]ION CONSULTANT SALES Comment:Specimen Source Site : Tissue #2 Narrative [facility] - 01/20/2024 12:02 PM [employer] SALES Bacterial Culture: Placed in Bactec aerobic and Bactec anaerobic bottles Vel Vinson M.D., M.B.A. LAB MICROBIOLOGY - GENERAL ORDERABLES Final Result Performing Organization Address City/[facility] Co de Phone Number [place] [address] [place] [address] * Acid Fast Smear for Mycobacterium (01/06/2024 9:28 AM [employer]ANT SAL[employer]) Only the most recent of3 resultswithin the time period is included. [facility] Acid Fast Smear For Mycobacterium Negative. 01/06/2024 7:20 PM [employer] SALES DTL Tissue (Hip, Right) 01/06/2024 9:28 AM [employer] SALES Narrative [facility] - 01/06/2024 7:20 PM [employer] SALES Bacterial Culture: Placed in Bactec aerobic and Bactec anaerobic bottles Vel Vinson M.D., M.B.A. LAB MICROBIOLOGY - GENERAL ORDERABLES Final Result Performing Organization Address City/[facility]/ZIP Co de Phone Number [facility] [address] [place] [address] * Surgical Pathology, Frozen Lab (01/06/2024 9:13 AM [employer]) 01/08/2024 9:58 PM [employer] METH Participated in the Interpretation Nathen Pulido M.D. - Pathology Fellow 01/08/2024 9:58 PM [employer] METH Report electronically signed by Marybel Kumar, Ph.D. I verify that I have examined all relevant slides/material s for the specimen(s) and rendered or confirmed the diagnosis. 01/08/2024 9:58 PM [employer] METH Frozen Intraoperative Report A. Synovium, right hip, excision: Synovial tissue, negative for acute inflammation. Signed by Marybel Kumar, Ph.D. 01/06/2024 2:27 PM 01/08/2024 9:58 PM [employer] METH Gross Description A. Received fresh labeled right hip is a 2.2 x 2.2 x 1.1 cm portion of pink-romero fibrous tissue. All submitted for frozen and permanent sections. Grossed by Yousif Hi M.S., PA([facility]). 01/08/2024 9:58 PM [employer] METH Block Summary A Right hip A1 Right hip -1 -frozen A2 Right hip -2 -frozen 01/08/2024 9:58 PM [employer] METH Interpretation FINAL DIAGNOSIS A. Synovium, right hip, excision: Synovial tissue with reactive changes, negative for acute inflammation. A portion of the testing process was performed at [facility] site [id number]. Digital imaging was used in the diagnostic assessment of this case. 01/08/2024 9:58 PM [employer] METH Tissue (Hip, Right) 01/06/2024 9:13 AM [employer] SAL[employer] us Vel Vinson M.D., M.B.A. LAB SURG PATH LÓPEZ KNOWLES Final Result [facility] [address] [place] [address], [facility] METH [address] [place] [address] * LDA ANE ENDOTRACHEAL AIRWAY (01/06/2024 8:09 AM [employer]) Narrative Hanh Mckay CCR[facility] - 01/06/2024 8:09 AM [employer]ANT SALES Hanh Mckay CCRN 01/06/2024 9:33 AM Airway Date/Time: 01/06/2024 8:09 AM Performed by: Hanh Mckay CCRN Authorized by: Batlazar Pacheco M.D. Patient location during procedure: OR / Procedure Area PROCEDURE DETAILS: Mask difficulty assessment: difficult mask (two-handed) with oral airway Final airway type: video laryngoscope Laryngeal Manipulation: no Final best view of glottic structures - Cormack/Lehane Score: grade 1 ETT location: oral VL device: glide scope [place] scope blade size: 3 Tube size: 7.5 ETT distance at teeth/gum: 21 Oral tube type: standard ETT Cuffed: yes Leak Test Performed: no Number of attempt to successful placement: 1 Airway confirmation: bilateral breath sounds, positive ETCO2 and bilateral chest rise Other previous techniques attempted: none PRE PROCEDURE DETAILS: Pre evaluation for airway management: procedure Urgency: elective Preop assessment of probable difficulty: no difficulty anticipated Preoxygenation: bag valve mask SEDATION / ANESTHESIA Anesthesia method: anesthesia POST PROCEDURE DETAILS: Procedure outcome: successful Notable Events: no complications us Baltazar Pacheco M.D. ANESTHESIA ORDERABLES Final R esult * Hip-Orthopedic Surgery Image Exam (01/06/2024 12:00 AM [employer]) Narrative [facility] - 01/06/2024 4:44 PM [employer] SALES This order has been created and auto-finalized to support the import of images acquired without order. The clinical documentation to support these images can be found on the encounter that produced images. us Provider Not In System IMG NON RAD IMAGING PROCE DURES Final Result [facility] NA * DX Hip And Pelvis Right 2-3 Views (01/05/2024 10:00 AM [employer]) Anatomical Region Laterality Modality Lower Extremity, Pelvis, Hip , Musculoskeletal RST LOS, Musculoskeletal ARZ LOS, Muskuloskeletal FLA LOS Right Digit al Radiography Impressions 01/05/2024 10:33 AM [employer] SALES Right ISRRAEL resection with placement of an articulating cement spacer and wire fixation of the proximal femur. Osteotomy along the lateral femoral shaft has healed since 08/25/2023. There is no evidence of hardware failure or loosening. PO changes from hardware removal of the right ilium with a small retained screw fragment. Degenerative changes of the lower lumbar spine, SI joints and left hip. Narrative 01/05/2024 10:33 AM [employer] SAL[employer] EXAM: DX HIP AND PELVIS RIGHT 2-3 VIEWS Procedure Note Len Jacobson M.D. - 01/05/2024 EXAM: DX HIP AND PELVIS RIGHT 2-3 VIEWS IMPRESSION: Right ISRRAEL resection with placement of an articulating cement spacer andwire fixation of the proximal femur. Osteotomy along the lateral femoralshaft has healed since 08/25/2023. There is no evidence of hardware failureor loosening. PO changes from hardware removal of the right ilium with a small retainedscrew fragment. Degenerative changes of the lower lumbar spine, SI jointsand left hip. Vel Vinson M.D., M.B.A. IMG DIAGNOSTIC NIRMAL GING PROCEDURES Final Result * (ABNORMAL) Reticulocyte Profile (01/05/2024 9:26 AM [employer]) Reticulocytes, B 2.03 0.60 - 2.71 % 01/05/2024 11:23 AM [employer] DHPM Absolute Reticulocyte 68.8 30.4 - 110.9 x10(9)/L 01/05/2024 11:23 AM [employer] DHPM Immature Reticulocyte Fraction 13.6(H) 2.3 - 13.4 % 01/05/2024 11:23 AM [employer] SAL[employer] DHPM Reticulocyte Hemoglobin 31.3 30.0 - 37.6 pg 01/05/2024 11:23 AM [employer] DHPM Erythrocytes 3.45(L) 4.35 - 5.65 x10(12)/L 01/05/2024 10:16 AM [employer]ANT SALES DTL Blood 01/05/2024 9:26 AM [employer] 01/05/2024 9:46 AM [employer] Brittney IRWIN, P.A.-C. LAB BLOOD ADD-ON Fin al Result [facility] [address] [place] [address], [facility] DHPM [facility] [address] [place] [address] DTL [facility] [address] [place] [address] * (ABNORMAL) CBC-Preop with reflex anemia panel (01/05/2024 9:26 AM [employer]ANT SALES) Pathologist [facility] Hemoglobin 10.2(L) 13.2 - 16.6 g/dL 01/05/2024 10:16 AM [employer] SAL[employer] DTL Hematocrit 31.9(L) 38.3 - 48.6 % 01/05/2024 10:16 AM [employer]ANT SALES DTL Erythrocytes 3.45(L) 4.35 - 5.65 x10(12)/L 01/05/2024 10:16 AM [employer] SAL[employer] DTL MCV 92.5 78.2 - 97.9 fL 01/05/2024 10:16 AM [employer] DTL RBC Distrib Width 14.5 11.8 - 14.5 % 01/05/2024 10:16 AM [employer] SAL[employer] DTL Platelet Count 163 135 - 317 x10(9)/L 01/05/2024 10:16 AM [employer] SAL[employer] DTL Leukocytes 7.1 3.4 - 9.6 x10(9)/L 01/05/2024 10:16 AM [employer] SAL[employer] DTL Blood (Blood, Venous) 01/05/2024 9:26 AM [employer]ANT SALES 01/05/2024 9:59 AM [employer] CON[employer]ANT SALES Narrative [facility] - 01/05/2024 10:16 AM [employer] SALES Specimen Information: Specimen ID: [id number] Specimen Type: Blood Specimen Collection Start Date: 01/05/2024 9:26 AM Specimen Received Date: 01/05/2024 9:59 AM Specimen ID: [id number] Specimen Type: Blood Specimen Collection Start Date: 01/05/2024 9:26 AM Specimen Received Date: 01/05/2024 9:46 AM Brittney IRWIN P.A.-C. LAB BLOOD ADD-ON Fin al Result Performing Organization Address City/[facility] Co de Phone Number [facility] [address] [place] [address], [facility] [address] [place] [address] * Iron and Total Iron-Binding Capacity (01/05/2024 9:26 AM [employer]) Only the most recent of2 resultswithin the time period is included. Iron 59 50 - 150 mcg/dL 01/05/2024 12:02 PM [employer] SAL[employer] DTL Total Iron Binding Capacity 254 250 - 400 mcg/dL 01/05/2024 12:02 PM [employer] SAL[employer] DTL Percent Saturation 23 14 - 50 % 01/05/2024 12:02 PM [employer] SAL[employer] DTL Blood 01/05/2024 9:26 AM [employer] SALES 01/05/2024 9:59 AM [employer] SALES us Pedrito MoonC. LAB BLOOD ADD-ON Fin al Result Performing Organization Address [facility] Co de Phone Number [facility] [address] [place], [place] [address] [address] [place] [address] * (ABNORMAL) Sedimentation Rate (01/05/2024 9:26 AM [employer] SALES) Sedimentation Rate, B 23(H) 2 - 20 mm/h 01/05/2024 11:04 AM [employer]ANT SALES DTL Blood (Blood, Venous) 01/05/2024 9:26 AM [employer] SALES 01/05/2024 9:46 AM [employer] SAL[employer] us Vel Vinson M.D., M.B.A. LAB BLOOD ADD-ON F inal Result Performing Organization Address City/[facility]/ZIP Co de Phone Number [facility] [address] [place] [address], [facility] [place] [address] [place] [address] * CRP (C-Reactive Protein) (01/05/2024 9:26 AM [employer] CON[employer]ANT SALES) C-Reactive Protein (CRP), S 4.4 <5.0 mg/L 01/05/2024 11:12 AM [employer] CON[employer]ANT SALES DTL Blood (Blood, Venous) 01/05/2024 9:26 AM [employer]ANT SALES 01/05/2024 9:59 AM [employer] SALES Vel Vinson M.D., M.B.A. LAB BLOOD ADD-ON F inal Result Performing Organization Address [facility] Co de Phone Number [facility] [address] [place] [address] * Ferritin (01/05/2024 9:26 AM [employer]ANT SALES) Only the most recent of2 resultswithin the time period is included. Pathologist [facility] Ferritin, S 192 31 - 409 mcg/L 01/05/2024 12:31 PM [employer]ANT SALES DTL Blood 01/05/2024 9:26 AM [employer] SAL[employer] 01/05/2024 9:59 AM [employer] Brittney IRWIN, P.A.-C. LAB BLOOD ADD-ON Fin al Result Performing Organization Address [facility] Co de Phone Number [facility] [address] [place] [address] * Surgical Pathology (12/02/2023 11:55 AM CDT) Pathologist [facility] 12/10/2023 1:04 PM CDT DTL Report electronically [...] are submitted en toto in cassette A1. Grossed by LOVELY. 12/10/2023 1:04 PM CDT DTL Disclaimer This test was developed using an analyte specific reagent. Its performance characteristics were determined by [facility] in a manner consistent with CLIA requirements. This test has not been cleared or approved by the U.S. Food and Drug Administration. Test results for (IHC or ZENA) testing are valid for specimens fixed between 6 and 72 hours. Delay to fixation, under fixation or over fixation fall outside of guidelines and may affect these results. 12/10/2023 1:04 PM CDT DTL Interpretation FINAL DIAGNOSIS A. Colon, 70 cm, Splenic flexure, endoscopic biopsy: Active colitis with ulceration and reactive bizarre stromal cells. No dysplasia or malignancy. Immunostains for CMV, HSV I+II, and adenovirus are negative. Immunostains for AE1/3, CD45, CDX2, ERG, Desmin, SOX10, KIT, DOG1, and SMA are unremarkable. Digital imaging was used in the diagnostic assessment of this case. 12/10/2023 1:04 PM CDT DTL Biopsy (Colon) 12/02/2023 11 :55 AM CDT Edgard Guillen M.D. LAB SURG PATH ORDERABLES F inal Result [facility] [address] [place] [address], [facility] DT [address] [place] [address] * Colonoscopy (12/02/2023 11:10 AM CDT) 12/02/2023 11:1 0 AM CDT Impressions [facility] - 12/02/2023 12:40 PM CDT Post-op Diagnoses: - Preparation of the colon was inadequate. - The examined portion of the ileum was normal. NO evidence of recent GI bleeding. - A single (solitary) ulcer at the splenic flexure. Biopsied. Tattooed. - Non-bleeding external and internal hemorrhoids. Narrative [facility] - 12/02/2023 12:40 PM CDT [facility] Patient Name: Estevan Lester Date of : 1965 Age: 58 Procedure Date: 12/02/2023 Procedure: Colonoscopy Providers: Edgard Guillen MD, Carolina Walker MD (Fellow) Referring Provider: Theodore Dsouza Pre-op Diagnoses: Hematochezia Recommendation: - PATHOLOGY/MICROBIOLOGY FOLLOW-UP: The ordering provider is responsible for reviewing results from specimens obtained during this endoscopic procedure and communicating the findings to the patient. If guidance is needed for interpreting endoscopic findings or pathology results, please consider a gastroenterology e-consult. - REPEAT colonoscopy within 12 months for surveillance due to history of polyps and inadequate preparation today. - Await pathology results. - The quality of preparation was inadequate for proper examination. Colonoscopy findings should be interpreted with caution, as poor preparation may result in missed lesions. For future procedures, the patient should begin a clear liquid diet (no red liquids) 2-3 days prior to beginning colonoscopy preparation. An alternate large-volume preparation should be used, given the inadequacy the of the initial preparation. Findings: The terminal ileum appeared normal. A single (solitary) 2 cm ulcer was found at 70 cm, suspected at the splenic flexure. No bleeding was present. This was biopsied with a cold forceps for histology. This area was tattooed with an injection of 2 mL of Spot at a location 2 cm distal to the area of ulceration (towards the anus). Non-bleeding external and internal hemorrhoids were found during retroflexion and during perianal exam. Procedural Details: The patient was seen, evaluated, history reviewed, airway and heart-lung exams were performed by licensed provider and were satisfactory for planned level of sedation care. The risks, benefits and alternatives for the procedure and sedation were discussed and informed consent was obtained. A procedural pause was conducted in the presence of assisting personnel to verify the correct patient identity and procedure to be performed. Throughout the procedure, the patient's blood pressure, pulse, and oxygen saturations were monitored continuously. The Colonoscope was introduced under direct vision through the anus and advanced to the terminal ileum. The colonoscopy was performed without difficulty. The patient tolerated the procedure well. The quality of the bowel preparation was fair and not adequate to identify polyps greater than 5 mm in size. The quality of the bowel preparation was evaluated using the BBPS (Plato Bowel Preparation Scale) with scores of: Right Colon = 1 (portion of mucosa seen, but other areas not well seen due to staining, residual stool and/or opaque liquid), Transverse Colon = 1 (portion of mucosa seen, but other areas not well seen due to staining, residual stool and/or opaque liquid) and Left Colon = 1 (portion of mucosa seen, but other areas not well seen due to staining, residual stool and/or opaque liquid). The total BBPS score equals 3. The quality of the bowel preparation was inadequate. Estimated Blood Loss: Estimated blood loss: none. Complications: No immediate complications. Sedation: Moderate (conscious) sedation was personally administered by an anesthesia professional. The following parameters were monitored: oxygen saturation, heart rate, blood pressure, and response to care. Attending Participation: I was present and participated during the entire procedure, including non-stapleton portions. Edgard Guillen MD 12/02/2023 12:40:02 PM This report has been signed electronically. Number of Addenda: 0 us Theodore Dsouza M.D., M.P.H. GI PROCEDURE ORDERABL ES Final Result Performing Organization Address [facility] Co de Phone Number [facility] NA * Colon, Splenic flexure Colonoscopy-Gastroenterology [...] PROCE DURES Final Result Performing Organization Address [facility] de Phone Number [facility] NA * (ABNORMAL) Morphology Eval (special smear) (11/29/2023 [...] BLOOD ADD-ON Final Result Performing Organization Address City/[facility]/ZIP Co de Phone Number [address] [address], [facility] [address] [place] [address] * Folate (11/29/2023 7:49 AM CDT) Folate, S >20.0 >=4.0 mcg/L 12/01/2023 8: 08 AM CDT DTL Blood (Blood, Venous) 11/29/2023 7:49 AM CDT 11/29/2023 8:33 AM CDT us Zahira Shaw APRN, C.N.P., D.N.P. LAB BLOOD ADD-ON Final Result [facility] [address] [place], [place] [address] [address] [place] [address] * Vitamin B12 Assay (11/29/2023 7:49 AM CDT) Vitamin B12 Assay, S 585 180 - [...] BLOOD ADD-ON Final Result Performing Organization Address City/State/[facility] Co de Phone Number [facility] [address] [place], [place] [address] [address] * CT Abdomen Pelvis without and with IV Contrast (11/28/2023 5:18 PM CDT) Anatomical Region Laterality Modality Abdomen, Pelvis, Abdominal R ST LOS, Abdominal ARZ LOS, Abdominal FLA LOS N/A Computed Tomograp hy, Computed Tomography 11/28/2023 5:19 PM CDT Impressions 11/28/2023 5:53 PM CDT Negative for active gastrointestinal bleeding in the abdomen or pelvis. No acute findings. Narrative 11/28/2023 5:53 PM CDT EXAM: CT ABDOMEN PELVIS ANGIOGRAM WITH IV [...] IMG CT PROCEDURES Final Result * (ABNORMAL) Lipid Panel (05/24/2023 5:59 AM CDT) [facility] Triglycerides 65 mg/dL 05/24/2023 9:47 AM CDT DTL Comment: ----REFERENCE VALUE---- Normal: <150 mg/dL Borderline High: 150-199 mg/dL High: 200-499 mg/dL Very High: > or =500 mg/dL Cholesterol, Total 63 mg/dL 04/06/ 2024 9:47 AM CDT DTL Comment: ----REFERENCE VALUE---- [...] BLOOD ADD-ON Final R esult [facility] [address] [place] [address], [facility] [place] [address] [place] [address] * Albumin, Random, Urine (03/10/2023 11:30 AM [employer]) Microalbumin <12.0 mg/L 03/10/2023 11:54 AM [employer] RDWG Comment:If clinically indica faviola, contact the lab for additional testing. Creatinine 112 mg/dL 03/10/2023 11:54 AM [employer] SAL[employer] [facility] Albumin/Creatinine Ratio <11 <17 mg/g 03/10/2023 11:54 AM [employer] [facility]DWG Comment: This ratio may not correspond with the reference range because one or both of the values used to calculate the ratio was above or below the quantification limits. Urine (Urine, Midstream) 03/10/2023 11:30 AM [employer] SALES 03/10/2023 11:30 AM [employer] us Doug Lima M.D. LAB URINE ORDERABLES Final R esult [facility] [address] [place] [address], [facility] RDWG [facility] [place] [address] [place] [address] from Last 3 Months or Most Recently Relevant to Health Maintenance Insurance [facility] [place] [address] [place] [id number] [employer] Advance Directives For more information, please contact: [phone] * Full Code (Latest Code Status on File) Date Activated Date Inactivated Comments 01/15/2024 9:26 AM 01/20/2024 12:38 PM Question Answer Comments Full Code: Discussed * Full Code Date Activated Date Inactivated Comments 01/06/2024 4:48 PM 01/09/2024 12:16 PM Question Answer Comments Full Code: Discussed * Full Code Date Activated Date Inactivated Comments 11/28/2023 9:48 PM 12/03/2023 12:18 PM Question Answer Comments Full Code: Not Discussed Due to: Patient not available * Full Code Date Activated Date Inactivated Comments 05/23/2023 9:31 PM 06/25/2023 12:16 PM Question Answer Comments Full Code: Discussed * Full Code Date Activated Date Inactivated Comments 03/09/2020 11:40 AM 03/14/2020 1:29 PM Question Answer Comments Full Code: Discussed Healthcare Agents on File Name Relationship Healthcare Agent Relationship Communication Lor Tanner [facility] Health Care Agent Annamaria Riley [facility] Health Care Agent 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
--- OUTSIDE RECORDS SUMMARY | 2024-01-22 16:32 | XMS_ITS | Clinical Summary ---
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 For routine questions regarding patient records, call [phone] during business hours, M-F 8:00 AM - 5:00 PM Central Time. Record requests for emergency care only can be directed to [phone] at any time.[facility] Allergies Active Allergy Reactions Criticality Noted [...] as needed for dry eyes. 50 each 024 Active levETIRAcetam (Keppra) 100 mg/mL solution Take 7.5 mL (750 mg total) by mouth 2 (two) times a day. 024 Active aspirin 81 mg chewable tablet Chew 1 tablet (81 mg total) daily. 60 tablet 024 Active pantoprazole (Protonix) 40 mg EC tablet [...] test 023 2023 Discontinued blood-glucose meter (FreeStyle [place]) kit Use as instructed 1 each 023 2023 Discontinued(T herapy completed) blood glucose ctl high,nml,low solution Glucose control solution provides an easy way to ensure accurate blood glucose testing. 1 each 023 2023 Discontinued(T herapy completed) flash glucose scanning reader (FreeStyle Jessica 2 Willcox) miscIndications: Diabetes Mellitus Type 2 Ulcer Foot [...] mouth 2 (two) times a day. 2023 Discontinued(S top Taking at Discharge) atorvastatin (Lipitor) 40 mg tablet Take 1 tablet (40 mg total) by mouth at bedtime. 2023 Discontinued amLODIPine (Norvasc) 5 mg tablet [...] (04/17/2020): Added automatically from request for surgery [id number] Obesity Body Mass Index 30-39.9 Adult 03/09/2020 01/05/2024 Hyponatremia 03/09/2020 07/30/2022 Hyperkalemia 03/09/2020 07/30/2022 Cellulitis 03/08/2020 03/20/2020 Cellulitis Foot Right 03/08/20202022 Diabetes Mellitus Type 2 Hyperglycemia 02/18/2017 04/17/2022 Diabetes Mellitus Type 2 Ulcer Foot 04/17/2022 Encounters Date Type Department Care Team Description 01/20/2024 Orders Only Department of Orthopedic Surgery in [place], [place] [address] [place] [phone] Lizeth Joe MPAS, P.A.-C. Fracture Femur Shaft Closed Initial Right (HCC) (Primary Dx) 01/16/2024 8:06 AM SALES REPRESENTATIVE GAS SERVICE Anesthesia Event [facility] [place] [phone] Kaye Aguilar M.D. Mariel Beckman, R.N. 01/16/2024 7:50 AM SALES REPRESENTATIVE GAS SERVICE - 01/16/2024 12:32 PM SALES REPRESENTATIVE GAS SERVICE Surgery [facility] OR [address] [place] [phone] Ester Vann M.D. SURGICAL MANAGEMENT PERIPROSTHETIC FEMUR FRACTURE. 01/15/2024 5:30 AM SALES REPRESENTATIVE GAS SERVICE - 01/20/2024 10:02 AM SALES REPRESENTATIVE GAS SERVICE Hospital Encounter [facility], [facility], Ninth Floor [address] [place] [phone] Yousif Calderon D.O. Luke, Anuradha, M.D. Sems, Stephen A, M.D. Hidden, Krystin A, M.D. Fracture Femur Shaft Closed Initial Right (HCC) (Primary Dx); Decline Functional Status [R53.81] Discharge Disposition: Jail Facility 01/09/2024 Orders Only Department of Orthopedic Surgery in [place], [place] [address] [place] [address] Brittney Piña MPAS, P.A.-C. 01/08/2024 Orders Only Preoperative Evaluation Center in [place], [place] [address] [place] [address] Alfredito Hudson M.S.N., R.N. Anemia (Primary Dx) 01/08/2024 Orders Only Department of Orthopedic Surgery in [place], [place] [address] [place] [address] Brittney Piña MPAS, P.A.-C. 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 01/06/2024 7:25 AM SALES REPRESENTATIVE GAS SERVICE - 01/06/2024 12:11 PM SALES REPRESENTATIVE GAS SERVICE Surgery [facility] OR [address] [place] [address] Vel Vinson M.D., M.B.A. ARTHROPLASTY REVISION FEMORAL PLUS ACETABULAR HIP. 01/06/2024 5:34 AM SALES REPRESENTATIVE GAS SERVICE - 01/09/2024 10:06 AM SALES REPRESENTATIVE GAS SERVICE Hospital Encounter [facility], [facility], [facility], Ninth Floor [address] [place] [address] Vel Vinson M.D., M.B.A. Pain Hip Right [M25.551] (Primary Dx); Infection Total Hip Arthroplasty Subsequent Right; Decline Functional Status [R53.81] Discharge Disposition: Jail Facility 01/06/2024 Ancillary Procedure Department of Orthopedic Surgery 01/05/2024 2:30 PM SALES REPRESENTATIVE GAS SERVICE Comprehensive Visit Preoperative Evaluation Center in [place], [place] [address] [place] [address] Vel Vinson M.D., M.B.A. Roma Mock APRN C.N.P., M.S.N. Preanesthetic Medical Exam (Primary Dx); Infection Total Hip Arthroplasty Subsequent Right; Hypertension Essential Primary; Hyperlipidemia; Apnea Sleep Obstructive; Stenosis Carotid Artery Right; Occlusion Carotid Artery Left; Stroke Cerebrovascular Accident Personal History 01/05/2024 11:15 AM SALES REPRESENTATIVE GAS SERVICE Office Visit Department of Orthopedic Surgery in [place], [place] [address] [place] [phone] Vel Vinson M.D., M.B.A. 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 Infection Total Hip Arthroplasty Subsequent Right 01/05/2024 9:36 AM SALES REPRESENTATIVE GAS SERVICE - 01/05/2024 11:59 PM SALES REPRESENTATIVE GAS SERVICE Hospital Encounter Department of Radiology, [facility], in [place], [place] [address] [place] [phone] Vel Vinson M.D., M.B.A. Infection Total Hip Arthroplasty Subsequent Right Discharge Disposition: Home or Self Care 2024 Orders Only Department of Orthopedic Surgery in [place], [place] [address] [place] [phone] Brittney Piña MPAS, P.A.-C. 12/29/2023 Orders Only Department of Orthopedic Surgery in [place], [place] [address] [place] [phone] Brittney Piña MPAS P.A.-C. Anemia (Primary Dx) 12/18/2023 Clinical Communication Division of Gastroenterology in [place], [place] [address] [place] [phone] Ede Crespo M.D. e-Consult Follow-Up (Completed 12/07 post ED visit 11/27) 12/18/2023 Clinical Communication Department of Orthopedic Surgery in [place], [place] [address] [place] [phone] Vel Vinson M.D., M.B.A. 12/17/2023 Clinical Communication Department of Hospital Internal Medicine in [place], [place] [address] [place] [phone] Lul Galeas M.D. 12/11/2023 Orders Only Department of Orthopedic Surgery in [place], [place] [address] [place] [phone] Maurisio Peoples M.D. Stroke (HCC) (Primary Dx) 12/08/2023 1:00 PM CDT Internal E-Consult Division of Gastroenterology in [place], [place] [address] [place] [phone] Lul Galeas M.D. Schupack, Daniel A, M.D. Ulcer Colon (Primary Dx); Hemorrhage Gastrointestinal 12/08/2023 8:00 AM CDT Internal E-Consult Department of Vascular Medicine in [place], [place] [address] [place] [phone] Ann Montoya APRN, C.N.P., M.S. Infection Total Hip Arthroplasty Subsequent Right 12/05/2023 Orders Only Department of Orthopedic Surgery in [place], [place] [address] [place] [phone] Maurisio Peoples M.D. Infection Total Hip Arthroplasty Subsequent Right (Primary Dx) 12/02/2023 11:25 AM CDT Anesthesia Event Division of Gastroenterology in [place], [place] [address] [place] [phone] Jorge Del Rosario APRN, VISCOSE CELLAR CHARGE HAND, [facility] Char Rudolph M.D. 12/02/2023 11:10 AM CDT Ancillary Procedure Department of Gastroenterology 12/02/2023 Clinical Communication [facility] [address] [place] [phone] Lul Galeas M.D. Appt Request 11/28/2023 2:49 PM CDT - 12/03/2023 10:07 AM CDT Hospital Encounter [facility], [facility], Fourth Floor [address] [place] [phone] Paola Solis APRN, C.N.P., D.N.P., M.S.N. Theodore Dsouza M.D., M.P.H. Yola Triana M.D. Kleinheksel, Germaine M, APRN, C.N.P., D.N.P. Hemorrhage Gastrointestinal (Primary Dx); Anemia; Infection Total Hip Arthroplasty Initial Right (HCC); Stroke (HCC) Discharge Disposition: Jail Facility 11/03/2023 Intake [facility] from Last 3 Months Immunizations Name Administration Dates Next Due Tdap 04/27/2015 Family History Medical History Relation Name Comments Diabetes Brother Sreedhar Sleep apnea Brothangus Eli Diabetes Father clay Hyperlipidemia Father clay Hypertension Father clay Leukemia Father clay Liver disease Father clay Obesity Father clay Sleep apnea Father clay Stroke Father clay Thyroid disease Father clay Arthritis Mother morgan Cancer Mother morgan Colon cancer Mother morgan Rectal cancer Mother morgan Sleep apnea Mother morgan Relation Name Status Comments Brother Sreedhar Alive Father clay Mother morgan Stage 4 lung ca ncer Social History Tobacco Use Types Packs/Day Years Used Date Smoking Tobacco: Never Passive Smoke Exposure: Never Smokeless Tobacco: Never Tobacco Cessation:Counseling Given: Not Answered Alcohol Use Standard Drinks/Week Comments Never 2 (1 standard drink = 0.6 oz pur e alcohol) [facility] Utilities Answer Date Recorded In the past 12 months has e electric, gas, oil, or water [employer] threatened to shut off services in your [...] money to buy more. Never true 01/15/20 Within the past 12 months, t he [...] situation today? I have a [facility] place to live 01/15/2024 Sex and Gender Information Value Date Recorded Sex Assigned at Male 07/26/2022 1:30 PM CDT Legal Sex Male 6:41 AM SALES REPRESENTATIVE GAS SERVICE Gender Identity Male 07/26/2022 1:32 PM CDT Sexual Orientation Straight 07/26/2022 1: 32 PM CDT Last Filed Vital Signs Vital Sign Reading Time Taken Comments Blood Pressure 122/63 01/20/2024 9:00 AM SALES REPRESENTATIVE GAS SERVICE Pulse 62 01/20/2024 9:00 AM SALES REPRESENTATIVE GAS SERVICE Temperature 36.4 C (97.5 F) 01/20/2024 9:00 AM SALES REPRESENTATIVE GAS SERVICE Respiratory Rate 16 01/20/2024 9:00 AM SALES REPRESENTATIVE GAS SERVICE Oxygen Saturation 97% 01/20/2024 9:00 AM SALES REPRESENTATIVE GAS SERVICE Inhaled Oxygen Concentration - - Weight 97.8 kg (215 lb 9.8 oz) 01/15/2024 9:26 A M SALES REPRESENTATIVE GAS SERVICE Height 181 cm (5' 11.26) 01/15/2024 9:26 AM SALES REPRESENTATIVE GAS SERVICE Body Mass Index 29.85 01/15/2024 9:26 AM SALES REPRESENTATIVE GAS SERVICE Plan of Treatment Upcoming Encounters Date Type Department Care Team (Latest Contact Info) Description 01/27/2024 12:30 PM SALES REPRESENTATIVE GAS SERVICE Appointment Department of Orthopedic Surgery in [address] [phone] Lizeth Joe MPAS P.Yun.-C. [address] [place] [phone] Discharge Disposition: Home or Self Care 02/19/2024 1:45 PM SALES REPRESENTATIVE GAS SERVICE Appointment Department of Radiology, [facility] in [address] [phone] Fantasma Butt M.D. [address] [place] [phone] 02/20/2024 11:00 AM SALES REPRESENTATIVE GAS SERVICE Virtual Visit Department of Radiology, [facility], in [address] [phone] Radha Ojeda P.A.-Venu., M.S. [address] [place] [phone] 04/13/2024 2:00 PM SALES REPRESENTATIVE GAS SERVICE Clinical Communication Virtual Review in [address] [phone] 04/15/2024 12:00 PM SALES REPRESENTATIVE GAS SERVICE Appointment Department of Radiology, [facility], in [address] [phone] Brittney Piña MPAS, P.A.-C. [address] [place] [phone] 04/15/2024 1:00 PM SALES REPRESENTATIVE GAS SERVICE Office Visit Department of Orthopedic Surgery in [address] [phone] Vel Vinson M.D., M.B.A. [address] [place] [phone] Health Maintenance Due Date Last Done Comments [...] Exam 11/09/2023 11/08/2022 Influenza Vaccine (#1) 2023 Urine Albumin 03/10/2024 03/10/2023, 02/0 02/2020, 06/22/2018, Additional history exists Hemoglobin A1C 07/06/2024 01/07/2024, 12/18, 12/23/2023, Additional history exists Office Visit for Blood Pressure Check / Re-check 01/04/2025 01/05/2024 Creatinine Level (Kidney Function Test) 01/17/2025 01/18/2024, 01/17/2024, 01/15/2024, Additional history exists Potassium Level 01/17/2025 01/18/2024, 12/20, 01/17/2024, Additional history exists Sodium Level 01/17/2025 01/18/2024, 12/20, 01/16/2024, Additional history exists DTaP,Tdap,and Td Vaccines (2 - Td or Tdap) 04/26/2025 04/27/2015 Lipid (Cholesterol) Screening 09/22/2028 09/23/2023, 07/22/2023, 05/24/2023, Additional history exists Colonoscopy 12/01/2028 12/02/2023, 11/17, 04/21/2015 Colorectal Cancer Surveillance 12/01/2028 Depression Screening (Annual PHQ-2) Completed 03/10/2023, 03/10/2023 IPV Vaccines Aged Out No longer eligi ble based on patient's age to complete this topic Medical Devices Implanted Type Area Beverage Distiller Device Identifier Shelf Expiration Date Model / Serial / Lot Godfrey Stm Pwdr Calc Sulf 10 - [id number] Implanted:Qty: 1 on 01/16/2024 by Ester Vann M.D. at [facility] Bone Growth Stimulator Right: Femur [employer] 03/19/2026 620-010 / / [id number] [facility] 0.014 [id number] - [id number] Implanted:Qty: 1 on 08/09/2022 by Fantasma Butt M.D. at [facility] Cardiac Stent Medtronic 02/19/2024 SECX-8-30- 135 / / [id number] Description:Carotid Stent Small Frag-Screw Yasmany 3.5x16 - [id number] Implanted:Qty: 3 on 2004 Hardware e.g. pins/screws/ rods Depuy Synthes Description:Device Manufactu rer - Synthes. Device Status Text - HARDWARE-7597. K-Wire Smooth S.S. Single 9 .062 - [id number] Implanted:Qty: 1 on 2004 Hardware e.g. pins/screws/ rods [place] Description:Device Manufactu rer - Liliane Angel.. Device [...] 2 on 01/02/2004 Hardware e.g. pins/screws/ rods [place] Description:Device Manufactu rer - Liliane Angel.. Device Status Text - HARDWARE-9484. Small Frag-Screw Yasmany 3.5x26 - [id number] Implanted:Qty: 1 on 01/02/2004 Hardware e.g. pins/screws/ rods Depuy Synthes Description:Device Manufactu rer - Synthes. Device Status Text - HARDWARE-7601. Syn Screw Schanz 5.0x250 - [id number] Implanted:Qty: 1 on 01/02/2004 Hardware e.g. pins/screws/ rods Depuy Synthes Description:Device Manufactu rer - Synthes. Device Status Text - HARDWARE-34736. Guide Wire-Ball Tip 3 X 800 - Amaral [id number] Implanted:Qty: 1 on 02/03/2009 Hardware e.g. pins/screws/ rods [place] Description:Device Manufactu rer - [place] Angel.. Device Status Text - HARDWARE- 76670. MONA Data - [id number]. Wax Bn Hmst 2.5gr - [id number] Implanted:Qty: 1 on 01/06/2024 by Vel Vinson M.D., M.B.A. at [facility] Hardware e.g. pins/screws/ rods Right: Hip Ethicon W31 / / Scrw Trl Acet Ft 6.5x30 - [id number] Implanted:Qty: 1 on 01/06/2024 by Vel Vinson M.D., M.B.A. at [facility] Hardware e.g. pins/screws/ rods Right: Hip Nori Biomet [id number] 09/23/2033 5-30 / / [id number] Scrw Trl Acet Ft 6.5x35 - [id number] Implanted:Qty: 1 on 01/06/2024 by Vel Vinson M.D., M.B.A. at [facility] Hardware e.g. pins/screws/ rods Right: Hip Nori Biomet [id number] 12/28/2032 5-35 / / [id number] Scrw Trl Acet Ft 6.5x20 - [id number] Implanted:Qty: 1 on 01/06/2024 by Vel Vinson M.D., M.B.A. at [facility] Hardware e.g. pins/screws/ rods Right: Hip Nori [employer]omet [id number] 08/11/2033 5-20 / / [id number] Scrw Trl Acet Ft 6.5x40 - [id number] Implanted:Qty: 1 on 01/06/2024 by Vel Vinson M.D., M.B.A. at [facility] Hardware e.g. pins/screws/ rods Right: Hip Nori [employer]omet [id number] 09/11/2033 5-40 / / [id number] Sleeve Cable Dia2mm Vitallium Branden Miles - [id number] Implanted:Qty: 1 on 01/06/2024 by Vel Vinson M.D., M.B.A. at [facility] Hardware e.g. pins/screws/ rods Right: Hip Liliane 05/28/2028 6704-0-510 / / [id number] Sleeve Cable Dia2mm Vitallium Branden Zhang - [id number] Implanted:Qty: 1 on 01/06/2024 by Vel Vinson M.D., M.B.A. at [facility] Hardware e.g. pins/screws/ rods Right: Hip Liliane 05/28/2028 6704-0-510 / / [id number] Sleeve Cable Dia2mm Vitallium Branden Zhang - [id number] Implanted:Qty: 1 on 01/06/2024 by Vel Vinson M.D., M.B.A. at [facility] Hardware e.g. pins/screws/ rods Right: Hip Liliane 02/22/2028 6704-0-510 / / [id number] Sleeve Cable Dia2mm Vitallium Branden Zhang - [id number] Implanted:Qty: 1 on 01/06/2024 by Vel Vinson M.D., M.B.A. at [facility] Hardware e.g. pins/screws/ rods Right: Hip [place] 04/28/2028 6704-0-510 / / [id number] Sleeve Cable Dia2mm Vitallium Branden Zhang - [id number] Implanted:Qty: 1 on 01/06/2024 by Vel Vinson M.D., M.B.A. at [facility] Hardware e.g. pins/screws/ rods Right: Hip Liliane 04/28/2028 6704-0-510 / / [id number] Wre Fix Lq Ss Closed 1.2x30 - [id number] Implanted:Qty: 2 on 01/06/2024 by Vel Vinson M.D., M.B.A. at [facility] Hardware e.g. pins/screws/ rods Right: Hip Nori Biomet 00-1292-06 1-00 / / 3.5/4.5mm Va-Lcp Ppfx Proximal Femur Plate, Right, 12 Holes, 388mm Implanted:Qty: 1 on 01/16/2024 by Ester Vann M.D. at [facility] Hardware e.g. pins/screws/ rods Right: Femur Depuy Synthes 02.221.130 S / / Cbl Grp Cerclg Crmp Ss 1.7x750 - [id number] Implanted:Qty: 1 on 01/16/2024 by Ester Vann M.D. at [facility] Hardware e.g. pins/screws/ rods Right: Femur Depuy Synthes 09/16/2028 298.801.01 S / / [id number] Cbl Grp Cerclg Crmp Ss 1.7x750 - [id number] Implanted:Qty: 1 on 01/16/2024 by Ester Vann M.D. at [facility] Hardware e.g. pins/screws/ rods Right: Femur Depuy Synthes 09/16/2028 298.801.01 S / / [id number] Cbl Grp Cerclg Crmp Ss 1.7x750 - [id number] Implanted:Qty: 1 on 01/16/2024 by Ester Vann M.D. at [facility] Hardware e.g. pins/screws/ rods Right: Femur Depuy Synthes 09/16/2028 298.801.01 S / / [id number] 3.5mm Variable Angle Loking Screw, 32mm Implanted:Qty: 1 on 01/16/2024 by Ester Vann M.D. at [facility] Hardware e.g. pins/screws/ rods Right: Femur Depuy Synthes 02.127.132 / / 3.5mm Variable Angle Loking Screw, 60mm Implanted:Qty: 1 on 01/16/2024 by Ester Vann M.D. at [facility] Hardware e.g. pins/screws/ rods Right: Femur Depuy Synthes 02.127.160 / / 3.5mm Variable Angle Loking Screw, 65mm Implanted:Qty: 1 on 01/16/2024 by Ester Vann M.D. at [facility] Hardware e.g. pins/screws/ rods Right: Femur Depuy Synthes 02.127.165 / / 3.5mm Cortex Screw, 28mm Implanted:Qty: 1 on 01/16/2024 by Ester Vann M.D. at [facility] Hardware e.g. pins/screws/ rods Right: Femur Depuy Synthes 02.200.028 / / 3.5mm Cortex Screw, 50mm Implanted:Qty: 1 on 01/16/2024 by Ester Vann M.D. at [facility] Hardware e.g. pins/screws/ rods Right: Femur Depuy Synthes 02.200.050 / / 3.5mm Cortex Screw, 60mm Implanted:Qty: 1 on 01/16/2024 by Ester Vann M.D. at [facility] Hardware e.g. pins/screws/ rods Right: Femur Depuy Synthes 02.200.060 / / 5.0mm Variable Angle Locking Screw, 46mm Implanted:Qty: 1 on 01/16/2024 by Ester Vann M.D. at [facility] Hardware e.g. pins/screws/ rods Right: Femur Depuy Synthes 02.231.246 / / 4.5mm Cortex Screw, 40mm Implanted:Qty: 1 on 01/16/2024 by Ester Vann M.D. at [facility] Hardware e.g. pins/screws/ rods Right: Femur Depuy Synthes 214.840 / / 4.5mm Cortex Screw, 50mm Implanted:Qty: 1 on 01/16/2024 by Ester Vann M.D. at [facility] Hardware e.g. pins/screws/ rods Right: Femur Depuy Synthes 214.850 / / 4.5mm Cortex Screw, 76mm Implanted:Qty: 1 on 01/16/2024 by Ester Vann M.D. at [facility] Hardware e.g. pins/screws/ rods Right: Femur Depuy Synthes 214.876 / / 5.0mm Variable Angle Locking Screw, 55mm Implanted:Qty: 1 on 01/16/2024 by Ester Vann M.D. at [facility] Hardware e.g. pins/screws/ rods Right: Femur Depuy Synthes 02.231.255 / / Shell Acetab G7 Multi Hl 62mm - [id number] Implanted:Qty: 1 on 01/06/2024 by Vel Vinson M.D., M.B.A. at [facility] Hip Implant Right: Hip Nori Biomet 04/04/2033 [id number] / / [id number] Lnr G7 Szh 50 - [id number] Implanted:Qty: 1 on 01/06/2024 by Vel Vinson M.D., M.B.A. at [facility] Hip Implant Right: Hip Nori Biomet 08/27/2033 [id number] / / [id number] Hip Dist Stem 57p931gn - [id number] Implanted:Qty: 1 on 01/06/2024 by Vel Vinson M.D., M.B.A. at [facility] Hip Implant Right: Hip [employer] Angel 09/05/2025 495-24-210 / / [id number] Hip Prox Body 85mm Lat Offset - [id number] Implanted:Qty: 1 on 01/06/2024 by Vel Vinson M.D., M.B.A. at [facility] Hip Implant Right: Hip [employer] Angel 11/20/2028 495-01-085 / / [id number] Lnr Act Art 14l60zv - [id number] Implanted:Qty: 1 on 01/06/2024 by Vel Vinson M.D., M.B.A. at [facility] Hip Implant Right: Hip Nori Biomet 08/23/2028 [id number] / / [id number] Fem Hd +7ofst 28 - [id number] Implanted:Qty: 1 on 01/06/2024 by Vel Vinson M.D., M.B.A. at [facility] Hip Implant Right: Hip Nori Biomet 07/17/2029 [id number] / / [id number] [facility] Karier 518 8x80 - [id number] Implanted:Qty: 1 on 05/24/2023 by Almaz Olea M.D. at [facility] Vascular Stent [employer] 02/24/2026 [id number] / / [id number] Explanted Type Area Beverage Distiller Device Identifier Shelf Expiration Date Model / Serial / Lot Cmnt [facility] 40gm - [id number] Implanted:Qty: 1 on 05/23/2023 by Vel Vinson M.D., M.B.A. at [facility] Explanted:Qty: 1 on 01/06/2024 by Vel Vinson M.D., M.B.A. at [facility] Bone Cement Right: Hip [place] 6191-1-001 / / Cmnt Bn Smp 40gm - [id number] Implanted:Qty: 1 on 05/23/2023 by Félix Mckeon M.D. at [facility] Explanted:Qty: 1 on 01/06/2024 by Vel Vinson M.D., M.B.A. at [facility] Bone Cement Right: Hip [place] 6191-1-001 / / Cmnt Bn p 40gm - [id number] Implanted:Qty: 1 on 05/23/2023 by Félix Mckeon M.D. at [facility] Explanted:Qty: 1 on 01/06/2024 by Vel Vinson M.D., M.B.A. at [facility] Bone Cement Right: Hip [place] 6191-1-001 / / Screw-Hgpii S-Tap 6.5 X 15mm - [id number] Implanted:Qty: 1 on 02/03/2009 Explanted:Qty: 1 on 05/23/2023 by Vel Vinson M.D., M.B.A. at [facility] Hardware e.g. pins/screw s/rods Nori [employer]omet Description:Device Manufactu rer - Nori. Device Status Text - HARDWARE-25962. Small Frag-Screw Yasmany 3.5x12 - [id number] Implanted:Qty: 1 on 01/02/2004 Explanted:Qty: 1 on 05/23/2023 by Vel Vinson M.D., M.B.A. at [facility] Hardware e.g. pins/screw s/rods [employer] Description:Device Manufactu rer - [employer]. Device Status Text - [id number]. Small Frag-Screw Yasmany 3.5x16 - Amaral [id number] Implanted:Qty: 2 on 01/02/2004 Explanted:Qty: 2 on 05/23/2023 by Vel Vinson M.D., M.B.A. at [facility] Hardware e.g. pins/screw s/rods [employer] Description:Device Manufactu rer - [employer]. Device Status Text - [id number]. Pelvic Re-Plate Cvd 3.5x 6ho - Amaral [id number] Implanted:Qty: 1 on 01/02/2004 Explanted:Qty: 1 on 05/23/2023 by Félix Mckeon M.D. at [facility] Hardware e.g. pins/screw s/rods [employer] Description:Device Manufactu rer - Synthes. Device Status Text - [id number]. Right Hip Screw-Hgpii S-Tap 6.5 X 30mm - Amaral [id number] Implanted:Qty: 2 on 02/03/2009 Explanted:Qty: 2 on 05/23/2023 by Vel Vinson M.D., M.B.A. at [facility] Hardware e.g. pins/screw s/rods [employer] Description:Device Manufactu rer - Nori. Device Status Text - [id number]. Screw-Hgpii S-Tap 6.5 X 35mm - Amaral [id number] Implanted:Qty: 1 on 02/03/2009 Explanted:Qty: 1 on 05/23/2023 by Vel Vinson M.D., M.B.A. at [facility] Hardware e.g. pins/screw s/rods [employer] Description:Device Manufactu rer - Nori. Device Status Text - [id number]. 6.5 Saniya Screw-16mm Thread 65 - Amaral [id number] Implanted:Qty: 1 on 01/02/2004 Explanted:Qty: 1 on 05/23/2023 by Vel Vinson M.D., M.B.A. at [facility] Hardware e.g. pins/screw s/rods [employer] Description:Device Manufactu rer - Synthes. Device Status Text - [id number]. Implex-Shell Hedro 54mm - Amaral [id number] Implanted:Qty: 1 on 02/03/2009 Explanted:Qty: 1 on 05/23/2023 by Vel Vinson M.D., M.B.A. at [facility] Hip Implant Other/Legacy - See Implant Description [employer] Description:Device Manufactu rer - Nori. Body Location - Other. Right. Device Status Text - HIP [id number]. Lamoure-Stem Perkins 8 Hi - Amaral [id number] Implanted:Qty: 1 on 02/03/2009 Explanted:Qty: 1 on 05/23/2023 by Vel Vinson M.D., M.B.A. at [facility] Hip Implant Other/Legacy - See Implant Description [email or web address] Description:Device Manufactu rer - [employer]. Body Location - Other. Right. Device Status Text - HIP [id number]. Nori Liner 0 Degree 32 X 54m - Amaral [id number] Implanted:Qty: 1 on 02/03/2009 Explanted:Qty: 1 on 05/23/2023 by Vel Vinson M.D., M.B.A. at [facility] Hip Implant Other/Legacy - See Implant Description [employer] Description:Device Manufactu rer - Nori. Body Location - Other. Right. Device Status Text - HIP [id number]. Dep. Head Prodigy 32 + 1.0 - Amaral [id number] Implanted:Qty: 1 on 02/03/2009 Explanted:Qty: 1 on 05/23/2023 by Vel Vinson M.D., M.B.A. 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 Body Location - Other. Right. Device Status Text - HIP [id number]. Hip Stm Prs Cmnt Rt 3 200 - [id number] Implanted:Qty: 1 on 05/23/2023 by Félix Mckeon M.D. at [facility] Explanted:Qty: 1 on 01/06/2024 by Vel Vinson M.D., M.B.A. at [facility] Hip Implant Right: Hip [employer] 08/16/2032 [id number] / / [id number] Lnr Emp Aox Std +4 40x54 - [id number] Implanted:Qty: 1 on 05/23/2023 by Félix Mckeon M.D. at [facility] Explanted:Qty: 1 on 01/06/2024 by Vel Vinson M.D., M.B.A. at [facility] Hip Implant Right: Hip [employer] 02/16/2027 0 / / [id number] Fem Hd Art +12ofst 40 - [id number] Implanted:Qty: 1 on 05/23/2023 by Vel Vinson M.D., M.B.A. at [facility] Explanted:Qty: 1 on 01/06/2024 by Vel Vinson M.D., M.B.A. at [facility] Hip Implant Right: Hip [employer] 02/16/2033 0 / [id number] Procedures Procedure Name Priority Date/Time Associated Diagnosis Comments HEMOGLOBIN, B STAT 01/20/2024 8:57 AM SALES REPRESENTATIVE GAS SERVICE SARS CORONAVIRUS 2, PCR RAPID, V STAT 01/20/2024 8:35 AM SALES REPRESENTATIVE GAS SERVICE GLUCOSE POCT, B Routine 01/20/2024 7:40 AM SALES REPRESENTATIVE GAS SERVICE GLUCOSE POCT, B Routine 01/20/2024 7:04 AM SALES REPRESENTATIVE GAS SERVICE GLUCOSE POCT, B Routine 01/19/2024 8:14 PM SALES REPRESENTATIVE GAS SERVICE GLUCOSE POCT, B Routine 01/19/2024 4:30 PM SALES REPRESENTATIVE GAS SERVICE GLUCOSE POCT, B Routine 01/19/2024 11:31 AM SALES REPRESENTATIVE GAS SERVICE GLUCOSE POCT, B Routine 01/19/2024 7:50 AM SALES REPRESENTATIVE GAS SERVICE GLUCOSE POCT, B Routine 01/18/2024 9:04 PM SALES REPRESENTATIVE GAS SERVICE GLUCOSE POCT, B Routine 01/18/2024 6:11 PM SALES REPRESENTATIVE GAS SERVICE GLUCOSE POCT, B Routine 01/18/2024 4:33 PM SALES REPRESENTATIVE GAS SERVICE GLUCOSE POCT, B Routine 01/18/2024 11:55 AM SALES REPRESENTATIVE GAS SERVICE GLUCOSE POCT, B Routine 01/18/2024 8:05 AM SALES REPRESENTATIVE GAS SERVICE ALKALINE PHOSPHATASE, S/P Routine 01/18/2024 4:17 AM SALES REPRESENTATIVE GAS SERVICE BASIC METABOLIC PANEL, S/P Routine 01/18/2024 4:17 AM SALES REPRESENTATIVE GAS SERVICE CBC WITHOUT DIFFERENTIAL, B Routine 01/18/2024 4:17 AM SALES REPRESENTATIVE GAS SERVICE GLUCOSE POCT, B Routine 01/18/2024 1:44 AM SALES REPRESENTATIVE GAS SERVICE GLUCOSE POCT, B Routine 01/17/2024 8:35 PM SALES REPRESENTATIVE GAS SERVICE POTASSIUM, S/P STAT 01/17/2024 5:03 PM SALES REPRESENTATIVE GAS SERVICE HEMOGLOBIN, B STAT 01/17/2024 5:03 PM SALES REPRESENTATIVE GAS SERVICE GLUCOSE POCT, B Routine 01/17/2024 5:01 PM SALES REPRESENTATIVE GAS SERVICE GLUCOSE POCT, B Routine 01/17/2024 11:37 AM SALES REPRESENTATIVE GAS SERVICE TRANSFUSE RED BLOOD CELLS Routine 01/17/2024 9:36 AM SALES REPRESENTATIVE GAS SERVICE GLUCOSE POCT, B Routine 01/17/2024 7:51 AM SALES REPRESENTATIVE GAS SERVICE BASIC METABOLIC PANEL, S/P Routine 01/17/2024 6:08 AM SALES REPRESENTATIVE GAS SERVICE CBC WITHOUT DIFFERENTIAL, B Routine 01/17/2024 6:08 AM SALES REPRESENTATIVE GAS SERVICE ALKALINE PHOSPHATASE, S/P Routine 01/17/2024 6:08 AM SALES REPRESENTATIVE GAS SERVICE GLUCOSE POCT, B Routine 01/17/2024 2:09 AM SALES REPRESENTATIVE GAS SERVICE GLUCOSE POCT, B Routine 01/16/2024 8:16 PM SALES REPRESENTATIVE GAS SERVICE GLUCOSE POCT, B Routine 01/16/2024 5:45 PM SALES REPRESENTATIVE GAS SERVICE GLUCOSE POCT, B Routine 01/16/2024 3:15 PM SALES REPRESENTATIVE GAS SERVICE ADULT OXYGEN THERAPY Routine 01/16/2024 3:07 PM SALES REPRESENTATIVE GAS SERVICE DX FEMUR RIGHT 2 VIEWS RAD - Routine (most inpatients and all outpatients) 01/16/2024 3:00 PM SALES REPRESENTATIVE GAS SERVICE PATIENT STATUS, ABG STAT 01/16/2024 1:17 PM SALES REPRESENTATIVE GAS SERVICE GLUCOSE, WHOLE BLOOD STAT 01/16/2024 1:17 PM SALES REPRESENTATIVE GAS SERVICE POTASSIUM, B STAT 01/16/2024 1:17 PM SALES REPRESENTATIVE GAS SERVICE SODIUM, B STAT 01/16/2024 1:17 PM SALES REPRESENTATIVE GAS SERVICE CALCIUM, IONIZED, S/B STAT 01/16/2024 1:17 PM SALES REPRESENTATIVE GAS SERVICE ABG W/COOX STAT 01/16/2024 1:17 PM SALES REPRESENTATIVE GAS SERVICE AUTOLOGOUS RED BLOOD CELLS-CELL SALVAGE Routine 01/16/2024 12:48 PM SALES REPRESENTATIVE GAS SERVICE FL FLUORO LESS THAN 1 HOUR RAD - Routine (most inpatients and all outpatients) 01/16/2024 12:43 PM SALES REPRESENTATIVE GAS SERVICE PATIENT STATUS, ABG STAT 01/16/2024 12:02 PM SALES REPRESENTATIVE GAS SERVICE GLUCOSE, WHOLE BLOOD STAT 01/16/2024 12:02 PM SALES REPRESENTATIVE GAS SERVICE POTASSIUM, B STAT 01/16/2024 12:02 PM SALES REPRESENTATIVE GAS SERVICE SODIUM, B STAT 01/16/2024 12:02 PM SALES REPRESENTATIVE GAS SERVICE CALCIUM, IONIZED, S/B STAT 01/16/2024 12:02 PM SALES REPRESENTATIVE GAS SERVICE ABG W/COOX STAT 01/16/2024 12:02 PM SALES REPRESENTATIVE GAS SERVICE TRANSFUSE RED BLOOD CELLS Routine 01/16/2024 11:08 AM SALES REPRESENTATIVE GAS SERVICE PATIENT STATUS, ABG STAT 01/16/2024 11:00 AM SALES REPRESENTATIVE GAS SERVICE GLUCOSE, WHOLE BLOOD STAT 01/16/2024 11:00 AM SALES REPRESENTATIVE GAS SERVICE POTASSIUM, B STAT 01/16/2024 11:00 AM SALES REPRESENTATIVE GAS SERVICE SODIUM, B STAT 01/16/2024 11:00 AM SALES REPRESENTATIVE GAS SERVICE CALCIUM, IONIZED, S/B STAT 01/16/2024 11:00 AM SALES REPRESENTATIVE GAS SERVICE ABG W/COOX STAT 01/16/2024 11:00 AM SALES REPRESENTATIVE GAS SERVICE TRANSFUSE RED BLOOD CELLS Routine 01/16/2024 9:58 AM SALES REPRESENTATIVE GAS SERVICE PATIENT STATUS, ABG STAT 01/16/2024 9:32 AM SALES REPRESENTATIVE GAS SERVICE GLUCOSE, WHOLE BLOOD STAT 01/16/2024 9:32 AM SALES REPRESENTATIVE GAS SERVICE POTASSIUM, B STAT 01/16/2024 9:32 AM SALES REPRESENTATIVE GAS SERVICE SODIUM, B STAT 01/16/2024 9:32 AM SALES REPRESENTATIVE GAS SERVICE CALCIUM, IONIZED, S/B STAT 01/16/2024 9:32 AM SALES REPRESENTATIVE GAS SERVICE ABG W/COOX STAT 01/16/2024 9:32 AM SALES REPRESENTATIVE GAS SERVICE LDA ANE ARTERIAL LINE INSERTION Routine 01/16/2024 8:41 AM SALES REPRESENTATIVE GAS SERVICE MT ARTL CATH/CNULA MONITOR PERC Routine 01/16/2024 8:41 AM SALES REPRESENTATIVE GAS SERVICE LDA ANE ENDOTRACHEAL AIRWAY Routine 01/16/2024 8:19 AM SALES REPRESENTATIVE GAS SERVICE SURGICAL MANAGEMENT SHAFT FRACTURE FEMUR 01/16/2024 7:45 AM SALES REPRESENTATIVE GAS SERVICE Fracture Periprosthetic Hip Initial Right (HCC) GLUCOSE POCT, B Routine 01/16/2024 5:31 AM SALES REPRESENTATIVE GAS SERVICE HEMOGLOBIN, B Routine 01/15/2024 8:04 PM SALES REPRESENTATIVE GAS SERVICE GLUCOSE POCT, B Routine 01/15/2024 4:15 PM SALES REPRESENTATIVE GAS SERVICE TRANSFUSE RED BLOOD CELLS Routine 01/15/2024 10:50 AM SALES REPRESENTATIVE GAS SERVICE GLUCOSE POCT, B Routine 01/15/2024 10:00 AM SALES REPRESENTATIVE GAS SERVICE DX SHOULDER RIGHT 2+ VIEWS RAD - Semiurgent (Fast; most ED patients; some inpatients) 01/15/2024 8:42 AM SALES REPRESENTATIVE GAS SERVICE PREPARE RED BLOOD CELLS Routine 01/15/2024 8:24 AM SALES REPRESENTATIVE GAS SERVICE PREPARE RED BLOOD CELLS Routine 01/15/2024 8:24 AM SALES REPRESENTATIVE GAS SERVICE PREPARE RED BLOOD CELLS STAT 01/15/2024 8:24 AM SALES REPRESENTATIVE GAS SERVICE PREPARE RED BLOOD CELLS Routine 01/15/2024 8:24 AM SALES REPRESENTATIVE GAS SERVICE TYPE AND SCREEN Routine 01/15/2024 8:24 AM SALES REPRESENTATIVE GAS SERVICE TROPONIN T, 2H/6H REFLEX, 5TH GEN, P Timed 01/15/2024 8:24 AM SALES REPRESENTATIVE GAS SERVICE CT FEMUR RIGHT WITHOUT IV CONTRAST RAD - Routine (most inpatients and all outpatients) 01/15/2024 8:02 AM SALES REPRESENTATIVE GAS SERVICE CT THORACIC AND LUMBAR SPINE BY RECONSTRUCTION RAD - Semiurgent (Fast; most ED patients; some inpatients) 01/15/2024 6:51 AM SALES REPRESENTATIVE GAS SERVICE CT ABDOMEN PELVIS WITH IV CONTRAST RAD - Semiurgent (Fast; most ED patients; some inpatients) 01/15/2024 6:51 AM SALES REPRESENTATIVE GAS SERVICE CT CHEST WITH IV CONTRAST RAD - Semiurgent (Fast; most ED patients; some inpatients) 01/15/2024 6:51 AM SALES REPRESENTATIVE GAS SERVICE CT CERVICAL SPINE WITHOUT IV CONTRAST RAD - Semiurgent (Fast; most ED patients; some inpatients) 01/15/2024 6:51 AM SALES REPRESENTATIVE GAS SERVICE CT HEAD WITHOUT IV CONTRAST RAD - Semiurgent (Fast; most ED patients; some inpatients) 01/15/2024 6:51 AM SALES REPRESENTATIVE GAS SERVICE DX HIP AND PELVIS LEFT 2-3 VIEWS RAD - Semiurgent (Fast; most ED patients; some inpatients) 01/15/2024 6:42 AM SALES REPRESENTATIVE GAS SERVICE DX CHEST 1 VIEW RAD - Semiurgent (Fast; most ED patients; some inpatients) 01/15/2024 6:40 AM SALES REPRESENTATIVE GAS SERVICE DX FEMUR RIGHT 2 VIEWS RAD - Semiurgent (Fast; most ED patients; some inpatients) 01/15/2024 6:40 AM SALES REPRESENTATIVE GAS SERVICE CREATINE KINASE (CK), S STAT 01/15/2024 5:58 AM SALES REPRESENTATIVE GAS SERVICE PROTHROMBIN TIME (PT), P STAT 01/15/2024 5:58 AM SALES REPRESENTATIVE GAS SERVICE TROPONIN T, BASELINE, 5TH GEN, P STAT 01/15/2024 5:58 AM SALES REPRESENTATIVE GAS SERVICE LACTATE, B/P STAT 01/15/2024 5:58 AM SALES REPRESENTATIVE GAS SERVICE LIPASE, S/P STAT 01/15/2024 5:58 AM SALES REPRESENTATIVE GAS SERVICE HEPATIC FUNCTION PANEL, S STAT 01/15/2024 5:58 AM SALES REPRESENTATIVE GAS SERVICE BASIC METABOLIC PANEL, S/P STAT 01/15/2024 5:58 AM SALES REPRESENTATIVE GAS SERVICE CBC WITH DIFFERENTIAL, B STAT 01/15/2024 5:58 AM SALES REPRESENTATIVE GAS SERVICE ECG Routine 01/15/2024 5:42 AM SALES REPRESENTATIVE GAS SERVICE GLUCOSE POCT, B Routine 01/09/2024 8:07 AM SALES REPRESENTATIVE GAS SERVICE BASIC METABOLIC PANEL, S/P STAT 01/09/2024 7:18 AM SALES REPRESENTATIVE GAS SERVICE HEMOGLOBIN, B STAT 01/09/2024 7:18 AM SALES REPRESENTATIVE GAS SERVICE GLUCOSE POCT, B Routine 01/09/2024 2:48 AM SALES REPRESENTATIVE GAS SERVICE GLUCOSE POCT, B Routine 01/08/2024 11:26 PM SALES REPRESENTATIVE GAS SERVICE DX CHEST PORTABLE 1 VIEW RAD - Routine (most inpatients and all outpatients) 01/08/2024 11:13 PM SALES REPRESENTATIVE GAS SERVICE GLUCOSE POCT, B Routine 01/08/2024 9:55 PM SALES REPRESENTATIVE GAS SERVICE GLUCOSE POCT, B Routine 01/08/2024 6:03 PM SALES REPRESENTATIVE GAS SERVICE GLUCOSE POCT, B Routine 01/08/2024 12:33 PM SALES REPRESENTATIVE GAS SERVICE REMOTE OXIMETRY MONITORING CONT. Routine 01/08/2024 8:01 AM SALES REPRESENTATIVE GAS SERVICE GLUCOSE POCT, B Routine 01/08/2024 7:24 AM SALES REPRESENTATIVE GAS SERVICE BASIC METABOLIC PANEL, S/P Routine 01/08/2024 7:21 AM SALES REPRESENTATIVE GAS SERVICE CBC WITH DIFFERENTIAL, B Routine 01/08/2024 7:21 AM SALES REPRESENTATIVE GAS SERVICE GLUCOSE POCT, B Routine 01/08/2024 2:54 AM SALES REPRESENTATIVE GAS SERVICE GLUCOSE POCT, B Routine 01/07/2024 9:48 PM SALES REPRESENTATIVE GAS SERVICE GLUCOSE POCT, B Routine 01/07/2024 6:26 PM SALES REPRESENTATIVE GAS SERVICE HEMOGLOBIN, B Timed 01/07/2024 4:29 PM SALES REPRESENTATIVE GAS SERVICE GLUCOSE POCT, B Routine 01/07/2024 3:10 PM SALES REPRESENTATIVE GAS SERVICE NURSING IMAGE EXAM Routine 01/07/2024 2:20 PM SALES REPRESENTATIVE GAS SERVICE TRANSFUSE RED BLOOD CELLS Routine 01/07/2024 9:56 AM SALES REPRESENTATIVE GAS SERVICE TRANSFUSE RED BLOOD CELLS Routine 01/07/2024 8:06 AM SALES REPRESENTATIVE GAS SERVICE REMOTE OXIMETRY MONITORING CONT. Routine 01/07/2024 8:01 AM SALES REPRESENTATIVE GAS SERVICE GLUCOSE POCT, B Routine 01/07/2024 7:48 AM SALES REPRESENTATIVE GAS SERVICE CBC WITHOUT DIFFERENTIAL, B Routine 01/07/2024 3:35 AM SALES REPRESENTATIVE GAS SERVICE BASIC METABOLIC PANEL, S/P Routine 01/07/2024 3:35 AM SALES REPRESENTATIVE GAS SERVICE HEMOGLOBIN A1C, B Routine 01/07/2024 3:35 AM SALES REPRESENTATIVE GAS SERVICE GLUCOSE POCT, B Routine 01/07/2024 2:55 AM SALES REPRESENTATIVE GAS SERVICE GLUCOSE POCT, B Routine 01/06/2024 9:38 PM SALES REPRESENTATIVE GAS SERVICE REMOTE OXIMETRY MONITORING CONT. Routine 01/06/2024 8:00 PM SALES REPRESENTATIVE GAS SERVICE REMOTE OXIMETRY MONITORING CONT. STAT 01/06/2024 8:00 PM SALES REPRESENTATIVE GAS SERVICE REMOTE OXIMETRY MONITORING CONT. Routine 01/06/2024 4:51 PM SALES REPRESENTATIVE GAS SERVICE REMOTE OXIMETRY MONITORING CONT. STAT 01/06/2024 4:48 PM SALES REPRESENTATIVE GAS SERVICE GLUCOSE POCT, B Routine 01/06/2024 3:31 PM SALES REPRESENTATIVE GAS SERVICE ADULT OXYGEN THERAPY Routine 01/06/2024 2:08 PM SALES REPRESENTATIVE GAS SERVICE DX HIP RIGHT 2-3 VIEWS RAD - Routine (most inpatients and all outpatients) 01/06/2024 2:00 PM SALES REPRESENTATIVE GAS SERVICE SODIUM, B STAT 01/06/2024 1:05 PM SALES REPRESENTATIVE GAS SERVICE POTASSIUM, B STAT 01/06/2024 1:05 PM SALES REPRESENTATIVE GAS SERVICE PATIENT STATUS, ABG STAT 01/06/2024 1:05 PM SALES REPRESENTATIVE GAS SERVICE HEMOGLOBIN, WHOLE BLOOD STAT 01/06/2024 1:05 PM SALES REPRESENTATIVE GAS SERVICE GLUCOSE, WHOLE BLOOD STAT 01/06/2024 1:05 PM SALES REPRESENTATIVE GAS SERVICE CALCIUM, IONIZED, S/B STAT 01/06/2024 1:05 PM SALES REPRESENTATIVE GAS SERVICE LACTATE, B STAT 01/06/2024 1:05 PM SALES REPRESENTATIVE GAS SERVICE ABG W/O COOX STAT 01/06/2024 1:05 PM SALES REPRESENTATIVE GAS SERVICE TRANSFUSE RED BLOOD CELLS Routine 01/06/2024 12:05 PM SALES REPRESENTATIVE GAS SERVICE DX HIP RIGHT 2-3 VIEWS RAD - Routine (most inpatients and all outpatients) 01/06/2024 11:53 AM SALES REPRESENTATIVE GAS SERVICE HEMOGLOBIN, WHOLE BLOOD STAT 01/06/2024 11:13 AM SALES REPRESENTATIVE GAS SERVICE GLUCOSE POCT, B Routine 01/06/2024 11:04 AM SALES REPRESENTATIVE GAS SERVICE DX HIP RIGHT 2-3 VIEWS RAD - Routine (most inpatients and all outpatients) 01/06/2024 11:00 AM SALES REPRESENTATIVE GAS SERVICE DX PELVIS 1-2 VIEWS RAD - Routine (most inpatients and all outpatients) 01/06/2024 10:24 AM SALES REPRESENTATIVE GAS SERVICE DX PELVIS 1-2 VIEWS RAD - Routine (most inpatients and all outpatients) 01/06/2024 10:00 AM SALES REPRESENTATIVE GAS SERVICE PATIENT STATUS, ABG STAT 01/06/2024 9:32 AM SALES REPRESENTATIVE GAS SERVICE ABG W/COOX STAT 01/06/2024 9:32 AM SALES REPRESENTATIVE GAS SERVICE LDA ANE ARTERIAL LINE INSERTION Routine 01/06/2024 9:28 AM SALES REPRESENTATIVE GAS SERVICE MT ARTL CATH/CNULA MONITOR PERC Routine 01/06/2024 9:28 AM SALES REPRESENTATIVE GAS SERVICE BACTERIA CULT, AEROBE/ANAEROBE+SUSC Routine 01/06/2024 9:28 AM SALES REPRESENTATIVE GAS SERVICE BACTERIA CULT, AEROBE/ANAEROBE+SUSC Routine 01/06/2024 9:28 AM SALES REPRESENTATIVE GAS SERVICE MYCOBACTERIAL CULTURE, V Routine 01/06/2024 9:28 AM SALES REPRESENTATIVE GAS SERVICE MYCOBACTERIAL CULTURE, V Routine 01/06/2024 9:28 AM SALES REPRESENTATIVE GAS SERVICE ACID FAST SMEAR FOR MYCOBACTERIUM Routine 01/06/2024 9:28 AM SALES REPRESENTATIVE GAS SERVICE Infection Total Hip Arthroplasty Subsequent Right ACID FAST SMEAR FOR MYCOBACTERIUM Routine 01/06/2024 9:28 AM SALES REPRESENTATIVE GAS SERVICE Infection Total Hip Arthroplasty Subsequent Right FUNGAL CULTURE, ROUTINE Routine 01/06/2024 9:28 AM SALES REPRESENTATIVE GAS SERVICE Infection Total Hip Arthroplasty Subsequent Right FUNGAL CULTURE, ROUTINE Routine 01/06/2024 9:28 AM SALES REPRESENTATIVE GAS SERVICE Infection Total Hip Arthroplasty Subsequent Right SURGICAL PATHOLOGY, [facility] Routine 01/06/2024 9:13 AM SALES REPRESENTATIVE GAS SERVICE Infection Total Hip Arthroplasty Subsequent Right BACTERIA CULT, AEROBE/ANAEROBE+SUSC Routine 01/06/2024 9:08 AM SALES REPRESENTATIVE GAS SERVICE MYCOBACTERIAL CULTURE, V Routine 01/06/2024 9:08 AM SALES REPRESENTATIVE GAS SERVICE ACID FAST SMEAR FOR MYCOBACTERIUM Routine 01/06/2024 9:08 AM SALES REPRESENTATIVE GAS SERVICE Infection Total Hip Arthroplasty Subsequent Right FUNGAL CULTURE, ROUTINE Routine 01/06/2024 9:08 AM SALES REPRESENTATIVE GAS SERVICE Infection Total Hip Arthroplasty Subsequent Right GLUCOSE POCT, B Routine 01/06/2024 9:00 AM SALES REPRESENTATIVE GAS SERVICE LDA ANE ENDOTRACHEAL AIRWAY Routine 01/06/2024 8:09 AM SALES REPRESENTATIVE GAS SERVICE ARTHROPLASTY REVISION FEMORAL+ACETABULAR HIP 01/06/2024 7:34 AM SALES REPRESENTATIVE GAS SERVICE Infection Total Hip Arthroplasty Subsequent Right PREPARE RED BLOOD CELLS Routine 01/06/2024 6:30 AM SALES REPRESENTATIVE GAS SERVICE PREPARE RED BLOOD CELLS STAT 01/06/2024 6:30 AM SALES REPRESENTATIVE GAS SERVICE TYPE AND SCREEN Routine 01/06/2024 6:30 AM SALES REPRESENTATIVE GAS SERVICE GLUCOSE POCT, B Routine 01/06/2024 6:06 AM SALES REPRESENTATIVE GAS SERVICE ORTHOPEDIC SURGERY IMAGE EXAM Routine 01/06/2024 12:00 AM SALES REPRESENTATIVE GAS SERVICE DX HIP AND PELVIS RIGHT 2-3 VIEWS RAD - Routine (most inpatients and all outpatients) 01/05/2024 10:00 AM SALES REPRESENTATIVE GAS SERVICE Infection Total Hip Arthroplasty Subsequent Right IRON AND TOT IRON-BINDING CAPACITY, S/P Routine 01/05/2024 9:26 AM SALES REPRESENTATIVE GAS SERVICE FERRITIN, S Routine 01/05/2024 9:26 AM SALES REPRESENTATIVE GAS SERVICE RETICULOCYTE PROFILE, B Routine 01/05/2024 9:26 AM SALES REPRESENTATIVE GAS SERVICE CBC-PREOP WITH REFLEX ANEMIA PANEL Routine 01/05/2024 9:26 AM SALES REPRESENTATIVE GAS SERVICE Anemia HEPATIC FUNCTION PANEL, S Routine 01/05/2024 9:26 AM SALES REPRESENTATIVE GAS SERVICE Infection Total Hip Arthroplasty Subsequent Right SEDIMENTATION RATE, B Routine 01/05/2024 9:26 AM SALES REPRESENTATIVE GAS SERVICE Infection Total Hip Arthroplasty Subsequent Right C-REACTIVE PROTEIN (CRP), S/P Routine 01/05/2024 9:26 AM SALES REPRESENTATIVE GAS SERVICE Infection Total Hip Arthroplasty Subsequent Right HEMOGLOBIN A1C, B Routine 01/05/2024 9:26 AM SALES REPRESENTATIVE GAS SERVICE Infection Total Hip Arthroplasty Subsequent Right BASIC METABOLIC PANEL, S/P Routine 01/05/2024 9:26 AM SALES REPRESENTATIVE GAS SERVICE Infection Total Hip Arthroplasty Subsequent Right HEMOGLOBIN, [...] ALBUMIN, RANDOM, U Routine 03/10/2023 11:30 AM SALES REPRESENTATIVE GAS SERVICE Diabetes Mellitus Type 2 Ulcer Foot Hyperglycemic (HCC) from Last 3 Months or Most Recently Relevant to Health Maintenance Results * (ABNORMAL) Hemoglobin (01/20/2024 8:57 AM SALES REPRESENTATIVE GAS SERVICE) Only the most recent of7 resultswithin the time period is included. Hemoglobin 8.6(L) 13.2 - 16.6 g/dL 01/20/2024 9:07 AM SALES REPRESENTATIVE GAS SERVICE STMA Blood 01/20/2024 8:57 AM SALES REPRESENTATIVE GAS SERVICE 01/20/2024 9:06 AM SALES REPRESENTATIVE GAS SERVICE us Lizeth IRWIN, P.A.-C. LAB BLOOD ADD-ON Final Result [facility] [address] [place], [place] [address] [address] [place] [address] * SARS Coronavirus 2, PCR Rapid Symptomatic (01/20/2024 8:35 AM SALES REPRESENTATIVE GAS SERVICE) Pathologist [facility] SARS CoV-2, PCR, Rapid, V Undetected Undetected 01/20/2024 9:04 AM SALES REPRESENTATIVE GAS SERVICE STMA SARS Coronavirus 2, Rapid, Source Swab, Nasopharynx 01/20/2024 8:42 AM SALES REPRESENTATIVE GAS SERVICE [facility] (Nasopharynx) 01/20/2024 8:35 AM SALES REPRESENTATIVE GAS SERVICE 01/20/2024 8:42 AM SALES REPRESENTATIVE GAS SERVICE us Lizeth IRWIN, P.A.-C. LAB MICROBIOLOGY - GENERAL ORDERABLES Final Result Performing Organization Address City/[facility]/ZIP Co de Phone Number [facility] [address] [place], [place] [address] [address] [place] [address] * Glucose, POCT (01/20/2024 7:40 AM SALES REPRESENTATIVE GAS SERVICE) Only the most recent of55 resultswithin the time period is included. [facility] Glucose, POCT, B 115 70 - 140 mg/dL 01/20/2024 7:43 AM SALES REPRESENTATIVE GAS SERVICE PCLX Blood 01/20/2024 7:40 AM SALES REPRESENTATIVE GAS SERVICE 01/20/2024 7:43 AM SALES REPRESENTATIVE GAS SERVICE us Unknown Provider LAB POCT ORDERABLES-MANUAL Cata l Result POC [facility] [address] [place] [address], [facility] PCLX [facility] POC [address] [place] [address] * (ABNORMAL) CBC without Differential (01/18/2024 4:17 AM SALES REPRESENTATIVE [employer]ICE) Only the most recent of4 resultswithin the time period is included. [facility] Hemoglobin 8.8(L) 13.2 - 16.6 g/dL 01/18/2024 5:34 AM SALES REPRESENTATIVE [employer] DTL Hematocrit 26.6(L) 38.3 - 48.6 % 01/18/2024 5:34 AM SALES REPRESENTATIVE [employer] DTL Erythrocytes 2.97(L) 4.35 - 5.65 x10(12)/L 01/18/2024 5:34 AM SALES REPRESENTATIVE [employer] DTL MCV 89.6 78.2 - 97.9 fL 01/18/2024 5:34 AM SALES REPRESENTATIVE [employer] DTL RBC Distrib Width 15.9(H) 11.8 - 14.5 % 01/18/2024 5:34 AM SALES REPRESENTATIVE [employer] DTL Platelet Count 243 135 - 317 x10(9)/L 01/18/2024 5:34 AM SALES REPRESENTATIVE [employer]ICE DTL Leukocytes 15.3(H) 3.4 - 9.6 x10(9)/L 01/18/2024 5:34 AM SALES REPRESENTATIVE [employer] DTL Blood (Blood, Venous) 01/18/2024 4:17 AM SALES REPRESENTATIVE [employer] 01/18/2024 5:10 AM SALES REPRESENTATIVE [employer] Flako Loaiza M.D. LAB BLOOD ADD-ON Final Res ult Performing Organization Address City/[facility]/ZIP Co de Phone Number [facility] [address] [facility] [address] [place] [address] * (ABNORMAL) Alkaline Phosphatase (01/18/2024 4:17 AM SALES REPRESENTATIVE [employer]ICE) Only the most recent of2 resultswithin the time period is included. Alkaline Phosphatase, S 137(H) 40 - 129 U/L 01/18/2024 5:34 AM SALES REPRESENTATIVE [employer]ICE DTL Blood (Blood, Venous) 01/18/2024 4:17 AM SALES REPRESENTATIVE [employer]ICE 01/18/2024 5:18 AM SALES REPRESENTATIVE [employer] Flako Loaiza M.D. LAB BLOOD ADD-ON Final Res ult [facility] [address] DTL [facility] [address] [place] [address] * (ABNORMAL) Basic Metabolic Panel (01/18/2024 4:17 AM SALES REPRESENTATIVE [employer]) Only the most recent of10 resultswithin the time period is included. Potassium, S 4.9 3.6 - 5.2 mmol/L 01/18/2024 5:34 AM SALES REPRESENTATIVE [employer] DTL Sodium, S 137 135 - 145 mmol/L 01/18/2024 5:34 AM SALES REPRESENTATIVE G[employer] DTL Chloride, S 103 98 - 107 mmol/L 01/18/2024 5:34 AM SALES REPRESENTATIVE [employer] DTL Bicarbonate, S 26 22 - 29 mmol/L 01/18/2024 5:34 AM SALES REPRESENTATIVE [employer]ICE DTL Anion Gap 8 7 - 15 01/18/2024 5:34 AM SALES REPRESENTATIVE GAS SERVICE DTL BUN (Blood Urea Nitrogen), S 35(H) 8 - 24 mg/dL 01/18/2024 5:34 AM SALES REPRESENTATIVE GAS SERVICE DTL Creatinine 1.04 0.74 - 1.35 mg/dL 01/18/2024 5:34 AM SALES REPRESENTATIVE GAS SERVICE DTL Estimated GFR (eGFR) 83 >=60 mL/min/BSA 01/18/2024 5:34 AM SALES REPRESENTATIVE GAS SERVICE DTL Comment: Estimated GFR calculated using the 2020 CKD_EPI creatinine equation. Calcium, Total, S 9.0 8.6 - 10.0 mg/dL 01/18/2024 5:34 AM SALES REPRESENTATIVE GAS SERVICE DTL Glucose, S 104 70 - 140 mg/dL 01/18/2024 5:34 AM SALES REPRESENTATIVE GAS SERVICE DTL Blood (Blood, Venous) 01/18/2024 4:17 AM SALES REPRESENTATIVE GAS SERVICE 01/18/2024 5:18 AM SALES REPRESENTATIVE GAS SERVICE Flako Loaiza M.D. LAB BLOOD ADD-ON Final Res ult [facility] [address] [place] [address], [facility] [address] [place] [address] * Potassium (01/17/2024 5:03 PM SALES REPRESENTATIVE GAS SERVICE) Potassium, P 5.0 3.6 - 5.2 mmol/L 01/17/2024 5:19 PM SALES REPRESENTATIVE GAS SERVICE STMA Blood (Blood, Venous) 01/17/2024 5:03 PM SALES REPRESENTATIVE GAS SERVICE 01/17/2024 5:07 PM SALES REPRESENTATIVE GAS SERVICE us Daljit Zavala M.D. LAB BLOOD ADD-ON Final Resul t [facility] [address] [place] [address], [facility] [address] [place] [address] * Transfuse Red Blood Cells : (01/17/2024 12:51 PM SALES REPRESENTATIVE GAS SERVICE) Only the most recent of6 resultswithin the time period is included. us Daljit Zavala M.D. BLOOD TRANSFUSION ORDERABLES Final Result * DX Femur Right 2 Views (01/16/2024 3:00 PM SALES REPRESENTATIVE GAS SERVICE) Only the most recent of2 resultswithin the time period is included. Anatomical Region Laterality Modality Lower Extremity, Femur, Musc uloskeletal RST LOS, Musculoskeletal ARZ LOS, Muskuloskeletal FLA LOS Right Digit al Radiography Impressions 01/16/2024 3:08 PM SALES REPRESENTATIVE GAS SERVICE Metallic plate and multiscrew fixation of the periprosthetic femoral fracture. No gross hardware failure. Drains. Narrative 01/16/2024 3:08 PM SALES REPRESENTATIVE GAS SERVICE EXAM: DX FEMUR RIGHT 2 VIEWS Procedure Note Boyd Kwong D.O. - 01/16/2024 EXAM: DX FEMUR RIGHT 2 VIEWS IMPRESSION: Metallic plate and multiscrew fixation of the periprosthetic femoralfracture. No gross hardware failure. Drains. us Ester Vann M.D. IMG DIAGNOSTIC IMAGING PRO CEDURES Final Result * Patient Status (01/16/2024 1:17 PM SALES REPRESENTATIVE GAS SERVICE) Only the most recent of6 resultswithin the time period is included. Temperature 36.7 37.0 deg C 01/16/2024 1:17 PM SALES REPRESENTATIVE GAS SERVICE STMA FIO2 0.38 0.21=AIR 01/16/2024 1:17 PM SALES REPRESENTATIVE GAS SERVICE STMA Blood 01/16/2024 1:17 PM SALES REPRESENTATIVE GAS SERVICE 01/16/2024 1:17 PM SALES REPRESENTATIVE GAS SERVICE Mariel Beckman R.N. LAB BLOOD NON ADD-ON Fi nal Result Performing Organization Address [facility] Co de Phone Number [facility] [address] [place] [address], [facility] [address] [place] [address] * Sodium, B (01/16/2024 1:17 PM SALES REPRESENTATIVE GAS SERVICE) Only the most recent of5 resultswithin the time period is included. Sodium, B 135 135 - 145 mmol/L 01/16/2024 1:19 PM SALES REPRESENTATIVE GAS SERVICE STMA Blood (Blood, Arterial Line) 01/16/2024 1:17 PM SALES REPRESENTATIVE GAS SERVICE 01/16/2024 1:17 PM SALES REPRESENTATIVE GAS SERVICE Kaye Aguilar M.D. LAB BLOOD NON ADD-ON Fin al Result Performing Organization Address [facility] Co de Phone Number [facility] [address] [place] [address], [facility] [address] [place] [address] * (ABNORMAL) Blood Gas with Coox, Arterial (01/16/2024 1:17 PM SALES REPRESENTATIVE GAS SERVICE) Only the most recent of5 resultswithin the time period is included. pO2 164(H) 83 - 108 mm Hg 01/16/2024 1:19 PM SALES REPRESENTATIVE GAS SERVICE STMA pCO2 37 35 - 48 mm Hg 01/16/2024 1:19 PM SALES REPRESENTATIVE GAS SERVICE STMA pH 7.39 7.35 - 7.45 pH 01/16/2024 1:19 PM SALES REPRESENTATIVE GAS SERVICE STMA Base Excess -3(L) -2 - 3 mmol/L 01/16/2024 1:19 PM SALES REPRESENTATIVE GAS SERVICE STMA HCO3 22 22 - 26 mmol/L 01/16/2024 1:19 PM SALES REPRESENTATIVE GAS SERVICE STMA Hemoglobin, B 8.2(L) 13.2 - 16.6 g/dL 01/16/2024 1:19 PM SALES REPRESENTATIVE GAS SERVICE STMA O2Hb 97.0 94.0 - 98.0 % 01/16/2024 1:19 PM SALES REPRESENTATIVE GAS SERVICE STMA COHb 2.4 <3.0 % 01/16/2024 1:19 PM SALES REPRESENTATIVE GAS SERVICE STMA MetHb <1.0 <1.5 % 01/16/2024 1:19 PM SALES REPRESENTATIVE GAS SERVICE STMA CtO2 11.5(L) 18.0 - 21.0 vol % 01/16/2024 1:19 PM SALES REPRESENTATIVE GAS SERVICE STMA Blood (Blood, Arterial Line) 01/16/2024 1:17 PM SALES REPRESENTATIVE GAS SERVICE 01/16/2024 1:17 PM SALES REPRESENTATIVE GAS SERVICE us Kaye Aguilar M.D. LAB BLOOD NON ADD-ON Fin al Result Performing Organization Address [facility] Co de Phone Number [facility] [address] [place] [address], [facility] [address] [place] [address] * Potassium, Blood (01/16/2024 1:17 PM SALES REPRESENTATIVE GAS SERVICE) Only the most recent of5 resultswithin the time period is included. Potassium, B 4.0 3.6 - 5.2 mmol/L 01/16/2024 1:19 PM SALES REPRESENTATIVE GAS SERVICE STMA Blood (Blood, Arterial Line) 01/16/2024 1:17 PM SALES REPRESENTATIVE GAS SERVICE 01/16/2024 1:17 PM SALES REPRESENTATIVE GAS SERVICE us Kaye Aguilar M.D. LAB BLOOD NON ADD-ON Fin al Result Performing Organization Address City/[facility]/ZIP Co de Phone Number [facility] [address] [place] [address], [facility] [address] [place] [address] * (ABNORMAL) Glucose, Whole Blood (01/16/2024 1:17 PM SALES REPRESENTATIVE GAS SERVICE) Only the most recent of5 resultswithin the time period is included. Glucose 176(H) 70 - 140 mg/dL 01/16/2024 1:19 PM SALES REPRESENTATIVE GAS SERVICE STMA Blood (Blood, Arterial Line) 01/16/2024 1:17 PM SALES REPRESENTATIVE GAS SERVICE 01/16/2024 1:17 PM SALES REPRESENTATIVE GAS SERVICE us Kaye Aguilar M.D. LAB BLOOD ADD-ON Final R esult Performing Organization Address [facility] Co de Phone Number [facility] [address] [place] [address] * (ABNORMAL) Calcium, Ionized (01/16/2024 1:17 PM SALES REPRESENTATIVE GAS SERVICE) Only the most recent of5 resultswithin the time period is included. Pathologist [facility] Calcium, Ionized, B 4.33(L) 4.65 - 5.30 mg/dL 01/16/2024 1:19 PM SALES REPRESENTATIVE GAS SERVICE STMA Blood (Blood, Arterial Line) 01/16/2024 1:17 PM SALES REPRESENTATIVE GAS SERVICE 01/16/2024 1:17 PM SALES REPRESENTATIVE GAS SERVICE us Kaye Aguilar M.D. LAB BLOOD NON ADD-ON Fin al Result Performing Organization Address [facility] Co de Phone Number [facility] [address] [place] [address] * Transfuse autologous RBC (Cell Salvage) : (01/16/2024 12:49 PM SALES REPRESENTATIVE GAS SERVICE) us Kaye Aguilar M.D. BLOOD TRANSFUSION ORDERA BLES Final Result * FL Fluoro Less Than 1 Hour (01/16/2024 12:43 PM SALES REPRESENTATIVE GAS SERVICE) Narrative 152 HOS LOS RST - 01/16/2024 12:47 PM SALES REPRESENTATIVE GAS SERVICE This exam does not require a radiologist review or interpretation. Please refer to the patient's medical record on this date for clinical details. us Ester Vann M.D. IMG FLUOROSCOPY PROCEDURES Final Result Performing Organization Address City/[facility]/ZIP Co de Phone Number 152 HOS LOS RST * MT ARTL CATH/CNULA MONITOR PERC, LDA ANE ARTERIAL LINE INSERTION (01/16/2024 8:41 AM SALES REPRESENTATIVE GAS SERVICE) Kaye Benavides M.D. - 01/16/2024 8:41 AM SALES REPRESENTATIVE GAS SERVICE Mariel Beckman R.N. 01/16/2024 9:03 AM Invasive [...] LDA ANE ENDOTRACHEAL AIRWAY (01/16/2024 8:19 AM SALES REPRESENTATIVE GAS SERVICE) Narrative Mariel Beckman R.N. - 01/16/2024 8:19 AM SALES REPRESENTATIVE GAS SERVICE Mariel Beckman R.N. 01/16/2024 9:03 AM Airway [...] ETT location: oral VL device: glide scope [place] scope blade size: 4 Tube size: 7.5 [...] Shoulder Right 2+ Views (01/15/2024 8:42 AM SALES REPRESENTATIVE GAS SERVICE) Anatomical Region Laterality Modality Upper Extremity, Shoulder, M usculoskeletal RST LOS, Musculoskeletal ARZ LOS, Muskuloskeletal FLA LOS Right Digit al Radiography Impressions 01/15/2024 8:48 AM SALES REPRESENTATIVE GAS SERVICE No definite acute displaced fracture or traumatic misalignment. Mild to moderate degenerative changes of the shoulder. Narrative 01/15/2024 8:48 AM SALES REPRESENTATIVE GAS SERVICE EXAM: DX SHOULDER RIGHT 2+ VIEWS Procedure Note Boyd Kwong D.O. - 01/15/2024 EXAM: DX SHOULDER RIGHT 2+ VIEWS IMPRESSION: No definite acute displaced fracture or traumatic misalignment. Mild tomoderate degenerative changes of the shoulder. Park Dodd M.D. IMG DIAGNOSTIC IMAGING PROCED URES Final Result * (ABNORMAL) Troponin T, 2 Hour with 6 Hour Reflex, 5th Gen (01/15/2024 8:24 AM SALES REPRESENTATIVE GAS SERVICE) Troponin T, 2 hr, 5th gen 38(H) <=15 ng/L 01/15/2024 8:50 AM SALES REPRESENTATIVE GAS SERVICE STMA 2H Delta 3 ng/L 01/15/2024 8:50 AM SALES REPRESENTATIVE GAS SERVICE STMA Comment:6 hour collection no t indicated. 2H Delta Interp Not Changing 01/15/2024 8:50 AM SALES REPRESENTATIVE GAS SERVICE STMA Blood 01/15/2024 8:24 AM SALES REPRESENTATIVE GAS SERVICE 01/15/2024 8:30 AM SALES REPRESENTATIVE GAS SERVICE Martha Walton D.O., M.H.A. LAB BLOOD TROPONIN Fin al Result Performing Organization Address City/[facility]/ZIP Co de Phone Number [facility] [address] STMA [facility] [address] [place] [address] * Type and Screen (with Reflex Antibody ID) (01/15/2024 8:24 AM SALES REPRESENTATIVE GAS SERVICE) Only the most recent of3 resultswithin the time period is included. ABORh O Pos Not applicable 01/15/2024 8:50 AM SALES REPRESENTATIVE GAS SERVICE STRM Antibody Screen Negative Negative 01/15/2024 9:04 AM SALES REPRESENTATIVE GAS SERVICE STRM Type & Screen Expiration 01/18/2024 23:59 01/15/2024 8:50 AM SALES REPRESENTATIVE GAS SERVICE STRM Testing Location [place] DEFAULT 01/15/2024 8:31 AM SALES REPRESENTATIVE GAS SERVICE STRM Blood (Blood, Venous) 01/15/2024 8:24 AM SALES REPRESENTATIVE GAS SERVICE 01/15/2024 8:31 AM SALES REPRESENTATIVE GAS SERVICE Park Dodd M.D. LAB BLOOD BANK TEST ORDERABLE S Final Result Performing Organization Address [facility] Co de Phone Number [facility] [address] [place] [address], [facility] STRM [facility] [address] [place] [address] * CT Femur Right without IV Contrast (01/15/2024 8:02 AM SALES REPRESENTATIVE GAS SERVICE) Anatomical Region Laterality Modality Lower Extremity, Femur, Musc uloskeletal RST LOS, Musculoskeletal ARZ LOS, Muskuloskeletal FLA LOS Right Computed Tomography, Compute d Tomography Impressions 01/15/2024 4:53 PM SALES REPRESENTATIVE GAS SERVICE 1. Comminuted displaced and angulated periprosthetic femoral fracture. 2. Dense fluid collection in the subcutaneous tissue of the right hip. Findings may reflect a postoperative or posttraumatic hematoma. However, an underlying infection cannot be excluded. Narrative 01/15/2024 4:53 PM SALES REPRESENTATIVE GAS SERVICE EXAM: CT FEMUR RIGHT WITHOUT IV CONTRAST [...] Lumbar Spine by Reconstruction (01/15/2024 6:51 AM SALES REPRESENTATIVE GAS SERVICE) Anatomical Region Laterality Modality Thoracic Spine, Neuroradiolo gy RST LOS, Neuroradiology ARZ LOS, Neuroradiology FLA LOS N/A Computed Tomography, Compute d Tomography Impressions 01/15/2024 8:48 AM SALES REPRESENTATIVE GAS SERVICE 1. No acute fracture or traumatic malalignment of the thoracic or lumbar spine. 2. Chronic L5 pars defects with grade 1 spondylolisthesis at L5-S1. Advanced right and moderate left neural foraminal narrowing. Narrative 01/15/2024 8:48 AM SALES REPRESENTATIVE GAS SERVICE EXAM: CT THORACIC AND LUMBAR SPINE BY [...] Pelvis with IV Contrast (01/15/2024 6:51 AM SALES REPRESENTATIVE GAS SERVICE) Anatomical Region Laterality Modality Abdomen, Pelvis, Abdominal R ST LOS, Abdominal ARZ LOS, Abdominal FLA LOS N/A Computed Tomograp hy, Computed Tomography 01/15/2024 6:47 AM SALES REPRESENTATIVE GAS SERVICE Impressions 01/15/2024 11:02 AM SALES REPRESENTATIVE GAS SERVICE Right femur periprosthetic fracture. Also, possible right shoulder anterior dislocation, recommend right shoulder radiographs for further evaluation. No other acute traumatic findings. Narrative 01/15/2024 11:02 AM SALES REPRESENTATIVE GAS SERVICE EXAM: CT CHEST WITH IV CONTRAST, CT [...] Spine without IV Contrast (01/15/2024 6:51 AM SALES REPRESENTATIVE GAS SERVICE) Anatomical Region Laterality Modality Cervical Spine, Neuroradiolo gy RST LOS, Neuroradiology ARZ LOS, Neuroradiology FLA LOS N/A Computed Tomography, Compute d Tomography 01/15/2024 6:41 AM SALES REPRESENTATIVE GAS SERVICE Impressions 01/15/2024 8:16 AM SALES REPRESENTATIVE GAS SERVICE No acute fracture or traumatic malalignment of the cervical spine. Narrative 01/15/2024 8:16 AM SALES REPRESENTATIVE GAS SERVICE EXAM: CT CERVICAL SPINE WITHOUT IV CONTRAST [...] Chest with IV Contrast (01/15/2024 6:51 AM SALES REPRESENTATIVE GAS SERVICE) Anatomical Region Laterality Modality Chest, Thoracic RST LOS, Tho racic ARZ LOS, Thoracic ARZ LOS, Thoracic FLA LOS N/A Computed Tomography, Compute d Tomography 01/15/2024 6:47 AM SALES REPRESENTATIVE GAS SERVICE Impressions 01/15/2024 11:02 AM SALES REPRESENTATIVE GAS SERVICE Right femur periprosthetic fracture. Also, possible right shoulder anterior dislocation, recommend right shoulder radiographs for further evaluation. No other acute traumatic findings. Narrative 01/15/2024 11:02 AM SALES REPRESENTATIVE GAS SERVICE EXAM: CT CHEST WITH IV CONTRAST, CT [...] Head without IV Contrast (01/15/2024 6:51 AM SALES REPRESENTATIVE GAS SERVICE) Anatomical Region Laterality Modality Head, Neuroradiology RST [facility] , Neuroradiology ARZ [facility], Neuroradiology FLA [facility] N/A Computed Tomography, Compute d Tomography 01/15/2024 6:39 AM SALES REPRESENTATIVE GAS SERVICE Impressions 01/15/2024 7:24 AM SALES REPRESENTATIVE GAS SERVICE Since 06/07/2023, expected evolution of the now chronic left MCA territory infarct. No acute intracranial findings. No cranial or facial fracture. Narrative 01/15/2024 7:24 AM SALES REPRESENTATIVE GAS SERVICE EXAM: CT HEAD WITHOUT IV CONTRAST COMPARISON: [...] findings. No cranial or facial fracture. Martha Wallace.OBelkis, M.H.A. IMG CT PROCEDURES Cata l Result * DX Hip And Pelvis Left 2-3 Views (01/15/2024 6:42 AM SALES REPRESENTATIVE GAS SERVICE) Anatomical Region Laterality Modality Lower Extremity, Pelvis, Hip , Musculoskeletal RST LOS, Musculoskeletal ARZ LOS, Muskuloskeletal FLA LOS Left Digit al Radiography Impressions 01/15/2024 9:15 AM SALES REPRESENTATIVE GAS SERVICE No definite acute left fracture. Right hip long arthroplasty with cerclage wires. No gross hardware failure. Degenerative changes of the spine and pelvis. Narrative 01/15/2024 9:15 AM SALES REPRESENTATIVE GAS SERVICE EXAM: DX HIP AND PELVIS LEFT 2-3 VIEWS Procedure Note Boyd Kwong D.O. - 01/15/2024 EXAM: DX HIP AND PELVIS LEFT 2-3 VIEWS IMPRESSION: No definite acute left fracture. Right hip long arthroplasty with cerclagewires. No gross hardware failure. Degenerative changes of the spine andpelvis. Martha Wallace.O., M.H.A. IMG DIAGNOSTIC IMAGING PROCEDURES Final Result * DX Chest 1 View (01/15/2024 6:40 AM SALES REPRESENTATIVE GAS SERVICE) Anatomical Region Laterality Modality Chest, Thoracic RST LOS, Tho racic ARZ LOS, Thoracic FLA LOS N/A Digital Radiography Impressions 01/15/2024 7:59 AM SALES REPRESENTATIVE GAS SERVICE No definite acute displaced fracture. No focal consolidation, large pleural effusion, or discernible pneumothorax. Stents in the bilateral carotid arteries. Presumed gallstones and right upper quadrant abdomen. Prominent cardiac silhouette. Narrative 01/15/2024 7:59 AM SALES REPRESENTATIVE GAS SERVICE EXAM: DX CHEST 1 VIEW Procedure Note Boyd Kwong D.O. - 01/15/2024 EXAM: DX CHEST 1 VIEW IMPRESSION: No definite acute displaced fracture. No focal consolidation, largepleural effusion, or discernible pneumothorax. Stents in the bilateralcarotid arteries. Presumed gallstones and right upper quadrant abdomen.Prominent cardiac silhouette. Martha Walton D.O., M.H.A. IMG DIAGNOSTIC IMAGING PROCEDURES Final Result * (ABNORMAL) Troponin T, Baseline with 2 Hour/6 Hour Reflex Biomarker Panel (01/15/2024 5:58 AM SALES REPRESENTATIVE GAS SERVICE) [facility] Troponin T, Baseline, 5th gen 35(H) <=15 ng/L 01/15/2024 6:19 AM SALES REPRESENTATIVE GAS SERVICE STMA Blood (Blood, Venous) 01/15/2024 5:58 AM SALES REPRESENTATIVE GAS SERVICE 01/15/2024 6:03 AM SALES REPRESENTATIVE GAS SERVICE Martha Walton D.O., M.H.A. LAB BLOOD TROPONIN Fin al Result [place] [address] [place] [address], [facility] [address] [place] [address] * (ABNORMAL) Hepatic Function Panel (01/15/2024 5:58 AM SALES REPRESENTATIVE GAS SERVICE) Only the most recent of3 resultswithin the time period is included. Bilirubin, Total, S 0.4 0.0 - 1.2 mg/dL 01/15/2024 6:50 AM SALES REPRESENTATIVE GAS SERVICE DTL Bilirubin, Direct, S <0.2 0.0 - 0.3 mg/dL 01/15/2024 6:50 AM SALES REPRESENTATIVE GAS SERVICE DTL Aspartate Aminotransferase (AST), S 33 8 - 48 U/L 01/15/2024 6:50 AM SALES REPRESENTATIVE GAS SERVICE DTL Alanine Aminotransferase (ALT), S 25 7 - 55 U/L 01/15/2024 6:50 AM SALES REPRESENTATIVE GAS SERVICE DTL Alkaline Phosphatase, S 163(H) 40 - 129 U/L 01/15/2024 6:50 AM SALES REPRESENTATIVE GAS SERVICE DTL Albumin, S 3.4(L) 3.5 - 5.0 g/dL 01/15/2024 6:50 AM SALES REPRESENTATIVE GAS SERVICE DTL Protein, Total, S 5.4(L) 6.3 - 7.9 g/dL 01/15/2024 6:50 AM SALES REPRESENTATIVE GAS SERVICE DTL Blood (Blood, Venous) 01/15/2024 5:58 AM SALES REPRESENTATIVE GAS SERVICE 01/15/2024 6:30 AM SALES REPRESENTATIVE GAS SERVICE Martha Walton D.O., M.H.A. LAB BLOOD ADD-ON Final Result Performing Organization Address [facility] Co de Phone Number [address] [place] [address] * (ABNORMAL) Prothrombin Time (PT) (01/15/2024 5:58 AM SALES REPRESENTATIVE GAS SERVICE) Prothrombin Time, P 17.1(H) 9.4 - 12.5 sec 01/15/2024 6:09 AM SALES REPRESENTATIVE GAS SERVICE STMA INR 1.6 0.9 - 1.1 01/15/2024 6:09 AM SALES REPRESENTATIVE GAS SERVICE STMA Comment: ----ADDITIONAL INFORMATION---- Standard intensity warfarin therapeutic range: 2.0 to 3.0 High intensity warfarin therapeutic range: 2.5 to 3.5 Blood (Blood, Venous) 01/15/2024 5:58 AM SALES REPRESENTATIVE GAS SERVICE 01/15/2024 6:03 AM SALES REPRESENTATIVE GAS SERVICE Martha Walton D.O., M.H.A. LAB BLOOD ADD-ON Final Result Performing Organization Address [facility] Co de Phone Number [address] [place] [address] * (ABNORMAL) CBC with Differential, Blood (01/15/2024 5:58 AM SALES REPRESENTATIVE GAS SERVICE) Only the most recent of5 resultswithin the time period is included. Hemoglobin 7.4(L) 13.2 - 16.6 g/dL 01/15/2024 6:06 AM SALES REPRESENTATIVE GAS SERVICE STMA Hematocrit 22.5(L) 38.3 - 48.6 % 01/15/2024 6:06 AM SALES REPRESENTATIVE GAS SERVICE STMA Erythrocytes 2.44(L) 4.35 - 5.65 x10(12)/L 01/15/2024 6:06 AM SALES REPRESENTATIVE GAS SERVICE STMA MCV 92.2 78.2 - 97.9 fL 01/15/2024 6:06 AM SALES REPRESENTATIVE GAS SERVICE STMA RBC Distrib Width 13.9 11.8 - 14.5 % 01/15/2024 6:06 AM SALES REPRESENTATIVE GAS SERVICE STMA Platelet Count 316 135 - 317 x10(9)/L 01/15/2024 6:06 AM SALES REPRESENTATIVE GAS SERVICE STMA Leukocytes 12.0(H) 3.4 - 9.6 x10(9)/L 01/15/2024 6:06 AM SALES REPRESENTATIVE GAS SERVICE STMA Neutrophils 8.37(H) 1.56 - 6.45 x10(9)/L 01/15/2024 6:06 AM SALES REPRESENTATIVE GAS SERVICE DHPM Lymphocytes 1.51 0.95 - 3.07 x10(9)/L 01/15/2024 6:06 AM SALES REPRESENTATIVE GAS SERVICE STMA Monocytes 1.41(H) 0.26 - 0.81 x10(9)/L 01/15/2024 6:06 AM SALES REPRESENTATIVE GAS SERVICE STMA Eosinophils 0.64(H) 0.03 - 0.48 x10(9)/L 01/15/2024 6:06 AM SALES REPRESENTATIVE GAS SERVICE STMA Basophils 0.06 0.01 - 0.08 x10(9)/L 01/15/2024 6:06 AM SALES REPRESENTATIVE GAS SERVICE STMA Blood (Blood, Venous) 01/15/2024 5:58 AM SALES REPRESENTATIVE GAS SERVICE 01/15/2024 6:02 AM SALES REPRESENTATIVE GAS SERVICE us Martha Walton D.O., M.H.A. LAB BLOOD ADD-ON Final Result [facility] [address] [place] [address], [facility] [address] [place] [address] [facility] [address] [place] [address] * Lipase (01/15/2024 5:58 AM SALES REPRESENTATIVE GAS SERVICE) Lipase, S 55 13 - 60 U/L 01/15/2024 6: 50 AM SALES REPRESENTATIVE GAS SERVICE DTL Blood (Blood, Venous) 01/15/2024 5:58 AM SALES REPRESENTATIVE GAS SERVICE 01/15/2024 6:30 AM SALES REPRESENTATIVE GAS SERVICE Martha Walton D.O., M.H.A. LAB BLOOD ADD-ON Final Result [facility] [address] [place] [address], [facility] [address] [place] [address] * Lactate (01/15/2024 5:58 AM SALES REPRESENTATIVE GAS SERVICE) Only the most recent of2 resultswithin the time period is included. Lactate, P 1.2 0.5 - 2.2 mmol/L 01/15/2024 6:15 AM SALES REPRESENTATIVE GAS SERVICE [facility] Blood (Blood, Venous) 01/15/2024 5:58 AM SALES REPRESENTATIVE GAS SERVICE 01/15/2024 6:03 AM SALES REPRESENTATIVE GAS SERVICE us Martha Walton D.O., M.H.A. LAB BLOOD NON ADD-ON F inal Result [facility] [address] [place] [address], [facility] [address] [place] [address] * CK (Creatine Kinase) (01/15/2024 5:58 AM SALES REPRESENTATIVE GAS SERVICE) Creatine Kinase (CK), S 233 39 - 308 U/L 01/15/2024 6:50 AM SALES REPRESENTATIVE GAS SERVICE DTL Blood (Blood, Venous) 01/15/2024 5:58 AM SALES REPRESENTATIVE GAS SERVICE 01/15/2024 6:30 AM SALES REPRESENTATIVE GAS SERVICE Martha Walton D.O., M.H.A. LAB BLOOD ADD-ON Final Result Performing Organization Address [facility]/ZIP Co de Phone Number [facility] [address] [place] [address], [facility] DTL [facility] [address] [place] [address] * ECG 12 Lead (01/15/2024 5:42 AM SALES REPRESENTATIVE GAS SERVICE) Only the most recent of2 resultswithin the time period is included. Ventricular Rate ECG/Min 67 BPM MUSE MT Interval 168 ms MUSE QRSD Interval 92 ms MUSE QT Interval 418 ms MUSE QTC Interval 441 ms MUSE P [place] 12 degrees MUSE R [place] -1 degrees MUSE T Wave [place] 74 degrees MUSE 01/15/2024 5:42 AM SALES REPRESENTATIVE GAS SERVICE 01/15/2024 11:07 AM SALES REPRESENTATIVE GAS SERVICE Impressions MUSE - 01/15/2024 5:50 AM SALES REPRESENTATIVE GAS SERVICE Normal sinus rhythm Low voltage QRS Nonspecific T wave abnormality When compared with ECG of 28-Nov-2023 15:18, MT interval has decreased Anterior forces have changed Narrative Procedure Note Flako Berg M.D. - 01/15/2024 IMPRESSION: Normal sinus rhythm Low voltage QRS Nonspecific T wave abnormality When compared with ECG of 28-Nov-2023 15:18, MT interval has decreased Anterior forces have changed Martha Walton D.O., M.H.A. ECG ORDERABLES Edited Result - Final Performing Organization Address City/[facility]/ZIP Co de Phone Number MUSE NA * DX Chest Portable 1 View (01/08/2024 11:13 PM SALES REPRESENTATIVE GAS SERVICE) Anatomical Region Laterality Modality Chest, Thoracic RST LOS, Tho racic ARZ LOS, Thoracic FLA LOS N/A Digital Radiography Impressions 01/09/2024 7:58 AM SALES REPRESENTATIVE GAS SERVICE Since 06/07/2023, interval removal of previous central venous catheter. Remainder not significantly changed. Low lung volumes. Minimal atelectasis in the left lower lobe. Stable borderline cardiomegaly. [place] device. No definite focal airspace opacity. Narrative 01/09/2024 7:58 AM SALES REPRESENTATIVE GAS SERVICE EXAM: DX CHEST PORTABLE 1 VIEW Procedure Note Frankie Oliva M.D. - 01/09/2024 EXAM: DX CHEST PORTABLE 1 VIEW IMPRESSION: Since 06/07/2023, interval removal of previous central venous catheter.Remainder not significantly changed. Low lung volumes. Minimal atelectasisin the left lower lobe. Stable borderline cardiomegaly. [place] device. Nodefinite focal airspace opacity. us oPonam Hayes M.D. IMG DIAGNOSTIC IMAGING MT OCEDURES Final Result * Buttock/Sacrum-Nursing Image Exam (01/07/2024 2:20 PM SALES REPRESENTATIVE GAS SERVICE) 01/07/2024 2:17 PM SALES REPRESENTATIVE GAS SERVICE Narrative [facility] - 01/07/2024 2:20 PM SALES REPRESENTATIVE GAS SERVICE This order has been created and auto-finalized to support the import of images acquired without order. The clinical documentation to support these images can be found on the encounter that produced images. us Provider Not In System IMG NON RAD IMAGING PROCE DURES Final Result Performing Organization Address City/[facility] Co de Phone Number [facility] NA * Hemoglobin A1c (01/07/2024 3:35 AM SALES REPRESENTATIVE GAS SERVICE) Only the most recent of2 resultswithin the time period is included. Hemoglobin A1c, B 5.1 4.0 - 5.6 % 01/07/2024 4:46 AM SALES REPRESENTATIVE GAS SERVICE DTL Blood (Blood, Venous) 01/07/2024 3:35 AM SALES REPRESENTATIVE GAS SERVICE 01/07/2024 3:58 AM SALES REPRESENTATIVE GAS SERVICE Vel Vinson M.D., M.B.A. LAB BLOOD ADD-ON F inal Result Performing Organization Address City/State/[facility] Co de Phone Number [facility] [address] [place] [address], [facility] DTL [facility] [address] [place] [address] * DX Hip Right 2-3 Views (01/06/2024 2:00 PM SALES REPRESENTATIVE GAS SERVICE) Only the most recent of3 resultswithin the time period is included. Anatomical Region Laterality Modality Lower Extremity, Hip, Muscul oskeletal RST LOS, Musculoskeletal ARZ LOS, Muskuloskeletal FLA LOS Right Digit al Radiography Impressions 01/06/2024 2:14 PM SALES REPRESENTATIVE GAS SERVICE Right revision ISRRAEL. Thin fracture line along and distal to the femoral stem. Tiny metallic fragments along the lateral femur. Negative for postoperative purposes. Narrative 01/06/2024 2:14 PM SALES REPRESENTATIVE GAS SERVICE EXAM: DX HIP RIGHT 2-3 VIEWS Procedure Note Madison Dyer M.D. - 01/06/2024 EXAM: DX HIP RIGHT 2-3 VIEWS IMPRESSION: Right revision ISRRAEL. Thin fracture line along and distal to the femoralstem. Tiny metallic fragments along the lateral femur. Negative forpostoperative purposes. us Vel Vinson M.D., M.B.A. IMG DIAGNOSTIC NIRMAL GING PROCEDURES Final Result * (ABNORMAL) Lactate, B (01/06/2024 1:05 PM SALES REPRESENTATIVE GAS SERVICE) Lactate, B 3.0(H) 0.5 - 2.2 mmol/L 01/06/2024 1:26 PM SALES REPRESENTATIVE GAS SERVICE METH Blood (Blood, Arterial Line) 01/06/2024 1:05 PM SALES REPRESENTATIVE GAS SERVICE 01/06/2024 1:05 PM SALES REPRESENTATIVE GAS SERVICE us Baltazar Pacheco M.D. LAB BLOOD NON ADD-ON Final Re sult [facility] [address] [place] [address], [facility] METH [facility] [address] [place] [address] * (ABNORMAL) Hemoglobin, Whole Blood (01/06/2024 1:05 PM SALES REPRESENTATIVE GAS SERVICE) Only the most recent of2 resultswithin the time period is included. Hemoglobin, B 8.2(L) 13.2 - 16.6 g/dL 01/06/2024 1:12 PM SALES REPRESENTATIVE GAS SERVICE METH Blood (Blood, Arterial Line) 01/06/2024 1:05 PM SALES REPRESENTATIVE GAS SERVICE 01/06/2024 1:05 PM SALES REPRESENTATIVE GAS SERVICE Baltazar Pacheco M.D. LAB BLOOD NON ADD-ON Final Re sult Performing Organization Address City/[facility] Co de Phone Number [facility] [address] [place] [address], [facility] METH [facility] [address] [place] [address] * (ABNORMAL) Blood Gas without Coox, Arterial (01/06/2024 1:05 PM SALES REPRESENTATIVE GAS SERVICE) pO2 166(H) 83 - 108 mm Hg 01/06/2024 1:12 PM SALES REPRESENTATIVE GAS SERVICE METH pCO2 42 35 - 48 mm Hg 01/06/2024 1:12 PM SALES REPRESENTATIVE GAS SERVICE METH pH 7.35 7.35 - 7.45 pH 01/06/2024 1:12 PM SALES REPRESENTATIVE GAS SERVICE METH Base Excess -2 -2 - 3 mmol/L 01/06/2024 1:12 PM SALES REPRESENTATIVE GAS SERVICE METH HCO3 23 22 - 26 mmol/L 01/06/2024 1:12 PM SALES REPRESENTATIVE GAS SERVICE METH Blood (Blood, Arterial Line) 01/06/2024 1:05 PM SALES REPRESENTATIVE GAS SERVICE 01/06/2024 1:05 PM SALES REPRESENTATIVE GAS SERVICE Baltazar Pacheco M.D. LAB BLOOD NON ADD-ON Final Re sult Performing Organization Address City/[facility] Co de Phone Number [facility] [address] [place] [address], [facility] METH [facility] [address] [place] [address] * DX Pelvis 1-2 Views (01/06/2024 10:24 AM SALES REPRESENTATIVE GAS SERVICE) Only the most recent of2 resultswithin the time period is included. Anatomical Region Laterality Modality Pelvis, Musculoskeletal RST LOS, Musculoskeletal ARZ LOS, Muskuloskeletal FLA LOS N/A Digital Radiography Impressions 01/06/2024 10:50 AM SALES REPRESENTATIVE GAS SERVICE Intraoperative image taken during right ISRRAEL reimplantation. Narrative 01/06/2024 10:50 AM SALES REPRESENTATIVE GAS SERVICE EXAM: DX PELVIS 1-2 VIEWS Procedure Note Cara Poole M.D. - 01/06/2024 EXAM: DX PELVIS 1-2 VIEWS IMPRESSION: Intraoperative image taken during right [place]RRA[place] reimplantation. us Vel Vinson M.D., M.B.A. IMG DIAGNOSTIC NIRMAL GING PROCEDURES Final Result * MT ARTL CATH/CNULA MONITOR PERC, LDA ANE ARTERIAL LINE INSERTION (01/06/2024 9:28 AM SALES REPRESENTATIVE GAS SERVICE) Narrative Baltazar Pacheco M.D. - 01/06/2024 9:28 AM SALES REPRESENTATIVE GAS SERVICE Hanh Mckay CCRN 01/06/2024 9:31 AM Invasive Catheter Date/Time: 01/06/2024 9:28 AM Performed by: Hanh Mckay CCRN Authorized by: Baltazar Pacheco M.D. Care team members present 1. Baltazar Pacheco M.D. 2. Kayleigh Correia APRN, CRNA, D.N.P. Location: OR PROCEDURE DETAILS: Line type: arterial [...] none Baltazar Pacheco M.D. PROCEDURE/MINOR SURGICAL ORDE ELENI Final Result * Bacteria Culture, Aerobe / Anaerobe + Susc (01/06/2024 9:28 AM SALES REPRESENTATIVE GAS SERVICE) Only the most recent of3 resultswithin the time period is included. Bacteria Cult, Aerobe/Anaerob e+Susc No growth after 14 days of incubation. 01/20/2024 12:02 PM SALES REPRESENTATIVE GAS SERVICE DTL Hip, Right 01/06/2024 9:28 AM SALES REPRESENTATIVE GAS SERVICE 01/06/2024 11:05 AM SALES REPRESENTATIVE GAS SERVICE Comment:Specimen Source Site : Tissue #2 Narrative [facility] - 01/20/2024 12:02 PM SALES REPRESENTATIVE GAS SERVICE Bacterial Culture: Placed in Bactec aerobic and Bactec anaerobic bottles Vel Vinson M.D., M.B.A. LAB MICROBIOLOGY - GENERAL ORDERABLES Final Result [facility] [address] [place] [address], [facility] [address] [place] [address] * Acid Fast Smear for Mycobacterium (01/06/2024 9:28 AM SALES REPRESENTATIVE GAS SERVICE) Only the most recent of3 resultswithin the time period is included. Acid Fast Smear For Mycobacterium Negative. 01/06/2024 7:20 PM SALES REPRESENTATIVE GAS SERVICE DTL Tissue (Hip, Right) 01/06/2024 9:28 AM SALES REPRESENTATIVE GAS SERVICE Narrative [facility] - 01/06/2024 7:20 PM SALES REPRESENTATIVE GAS SERVICE Bacterial Culture: Placed in Bactec aerobic and Bactec anaerobic bottles Vel Vinson M.D., M.B.A. LAB MICROBIOLOGY - GENERAL ORDERABLES Final Result [facility] [address] [place] [address], [place] DTL [facility] [address] [place] [address] * Surgical Pathology, Frozen Lab (01/06/2024 9:13 AM SALES REPRESENTATIVE GAS SERVICE) 01/08/2024 9:58 PM SALES REPRESENTATIVE GAS SERVICE METH Participated in the Interpretation Nathen Pulido M.D. - Pathology Fellow 01/08/2024 9:58 PM SALES REPRESENTATIVE GAS SERVICE METH Report electronically signed by Marybel Kumar, Ph.D. I verify that I have examined all relevant slides/material s for the specimen(s) and rendered or confirmed the diagnosis. 01/08/2024 9:58 PM SALES REPRESENTATIVE GAS SERVICE METH Frozen Intraoperative Report A. Synovium, right hip, excision: Synovial tissue, negative for acute inflammation. Signed by Enid Kumar., Ph.D. 01/06/2024 2:27 PM 01/08/2024 9:58 PM SALES REPRESENTATIVE GAS SERVICE METH Gross Description A. Received fresh labeled right hip is a 2.2 x 2.2 x 1.1 cm portion of pink-romero fibrous tissue. All submitted for frozen and permanent sections. Grossed by Yousfi Hi M.S., PA([facility]). 01/08/2024 9:58 PM SALES REPRESENTATIVE GAS SERVICE METH Block Summary A Right hip A1 Right hip -1 -frozen A2 Right hip -2 -frozen 01/08/2024 9:58 PM SALES REPRESENTATIVE GAS SERVICE METH Interpretation FINAL DIAGNOSIS A. Synovium, right hip, excision: Synovial tissue with reactive changes, negative for acute inflammation. A portion of the testing process was performed at [facility] [employer] site [id number]. Digital imaging was used in the diagnostic assessment of this case. 01/08/2024 9:58 PM SALES REPRESENTATIVE GAS SERVICE METH Tissue (Hip, Right) 01/06/2024 9:13 AM SALES REPRESENTATIVE GAS SERVICE us Vel Vinson M.D., M.B.A. LAB SURG PATH LÓPEZ KNOWLES Final Result Performing Organization Address City/[facility] Co de Phone Number [facility] [address] [place] [address], [facility] [address] [place] [address] * LDA ANE ENDOTRACHEAL AIRWAY (01/06/2024 8:09 AM SALES REPRESENTATIVE GAS SERVICE) Narrative Hanh Mckay CCRN - 01/06/2024 8:09 AM SALES REPRESENTATIVE GAS SERVICE Hanh Mckay CCRN 01/06/2024 9:33 AM Airway Date/Time: 01/06/2024 8:09 AM Performed by: Hanh Mckay CCRN Authorized by: Baltazar Pacheco M.D. Patient location during procedure: OR / Procedure Area PROCEDURE DETAILS: Mask difficulty assessment: difficult mask (two-handed) with oral airway Final airway type: video laryngoscope Laryngeal Manipulation: no Final best view of glottic structures - Cormack/Lehane Score: grade 1 ETT location: oral VL device: glide scope [place] scope blade size: 3 Tube size: 7.5 [...] Hip-Orthopedic Surgery Image Exam (01/06/2024 12:00 AM SALES REPRESENTATIVE GAS SERVICE) Narrative [facility] - 01/06/2024 4:44 PM SALES REPRESENTATIVE GAS SERVICE This order has been created and auto-finalized to support the import of images acquired without order. The clinical documentation to support these images can be found on the encounter that produced images. us Provider Not In System IMG NON RAD IMAGING PROCE DURES Final Result Performing Organization Address City/[facility]/ZIP Co de Phone Number [facility] NA * DX Hip And Pelvis Right 2-3 Views (01/05/2024 10:00 AM SALES REPRESENTATIVE GAS SERVICE) Anatomical Region Laterality Modality Lower Extremity, Pelvis, Hip , Musculoskeletal RST LOS, Musculoskeletal ARZ LOS, Muskuloskeletal FLA LOS Right Digit al Radiography Impressions 01/05/2024 10:33 AM SALES REPRESENTATIVE GAS SERVICE Right ISRRAEL resection with placement of an [...] and left hip. Narrative 01/05/2024 10:33 AM SALES REPRESENTATIVE GAS SERVICE EXAM: DX HIP AND PELVIS RIGHT 2-3 [...] * (ABNORMAL) Reticulocyte Profile (01/05/2024 9:26 AM SALES REPRESENTATIVE GAS SERVICE) Reticulocytes, B 2.03 0.60 - 2.71 % 01/05/2024 11:23 AM SALES REPRESENTATIVE GAS SERVICE DHPM Absolute Reticulocyte 68.8 30.4 - 110.9 x10(9)/L 01/05/2024 11:23 AM SALES REPRESENTATIVE GAS SERVICE DHPM Immature Reticulocyte Fraction 13.6(H) 2.3 - 13.4 % 01/05/2024 11:23 AM SALES REPRESENTATIVE GAS SERVICE DHPM Reticulocyte Hemoglobin 31.3 30.0 - 37.6 pg 01/05/2024 11:23 AM SALES REPRESENTATIVE GAS SERVICE DHPM Erythrocytes 3.45(L) 4.35 - 5.65 x10(12)/L 01/05/2024 10:16 AM SALES REPRESENTATIVE GAS SERVICE DTL Blood 01/05/2024 9:26 AM SALES REPRESENTATIVE GAS SERVICE 01/05/2024 9:46 AM SALES REPRESENTATIVE GAS SERVICE Brittney IRWIN, P.A.-C. LAB BLOOD ADD-ON Fin al Result [facility] [address] [place] [address], [facility] DHPM [facility] [address] [place] [address] DTL [facility] [address] [place] [address] * (ABNORMAL) CBC-Preop with reflex anemia panel (01/05/2024 9:26 AM SALES REPRESENTATIVE GAS SERVICE) Hemoglobin 10.2(L) 13.2 - 16.6 g/dL 01/05/2024 10:16 AM SALES REPRESENTATIVE GAS SERVICE DTL Hematocrit 31.9(L) 38.3 - 48.6 % 01/05/2024 10:16 AM SALES REPRESENTATIVE GAS SERVICE DTL Erythrocytes 3.45(L) 4.35 - 5.65 x10(12)/L 01/05/2024 10:16 AM SALES REPRESENTATIVE GAS SERVICE DTL MCV 92.5 78.2 - 97.9 fL 01/05/2024 10:16 AM SALES REPRESENTATIVE GAS SERVICE DTL RBC Distrib Width 14.5 11.8 - 14.5 % 01/05/2024 10:16 AM SALES REPRESENTATIVE GAS SERVICE DTL Platelet Count 163 135 - 317 x10(9)/L 01/05/2024 10:16 AM SALES REPRESENTATIVE GAS SERVICE DTL Leukocytes 7.1 3.4 - 9.6 x10(9)/L 01/05/2024 10:16 AM SALES REPRESENTATIVE GAS SERVICE DTL Blood (Blood, Venous) 01/05/2024 9:26 AM SALES REPRESENTATIVE GAS SERVICE 01/05/2024 9:59 AM SALES REPRESENTATIVE GAS SERVICE Narrative [facility] - 01/05/2024 10:16 AM SALES REPRESENTATIVE GAS SERVICE Specimen Information: Specimen ID: [id number] Specimen Type: Blood Specimen Collection Start Date: 01/05/2024 9:26 AM Specimen Received Date: 01/05/2024 9:59 AM Specimen ID: [id number] Specimen Type: Blood Specimen Collection Start Date: 01/05/2024 9:26 AM Specimen Received Date: 01/05/2024 9:46 AM Brittney IRWIN, P.A.-C. LAB BLOOD ADD-ON Fin al Result Performing Organization Address [facility] de Phone Number [facility] [address] [facility] [address] [place] [address] * Iron and Total Iron-Binding Capacity (01/05/2024 9:26 AM SALES REPRESENTATIVE GAS SERVICE) Only the most recent of2 resultswithin the time period is included. Iron 59 50 - 150 mcg/dL 01/05/2024 12:02 PM SALES REPRESENTATIVE GAS SERVICE DTL Total Iron Binding Capacity 254 250 - 400 mcg/dL 01/05/2024 12:02 PM SALES REPRESENTATIVE GAS SERVICE DTL Percent Saturation 23 14 - 50 % 01/05/2024 12:02 PM SALES REPRESENTATIVE GAS SERVICE DTL Blood 01/05/2024 9:26 AM SALES REPRESENTATIVE GAS SERVICE 01/05/2024 9:59 AM SALES REPRESENTATIVE GAS SERVICE Brittney IRWIN, P.A.-C. LAB BLOOD ADD-ON Fin al Result Performing Organization Address [facility] de Phone Number [facility] [address] [place] [address], [facility] [address] [place] [address] * (ABNORMAL) Sedimentation Rate (01/05/2024 9:26 AM SALES REPRESENTATIVE GAS SERVICE) Sedimentation Rate, B 23(H) 2 - 20 mm/h 01/05/2024 11:04 AM SALES REPRESENTATIVE GAS SERVICE DTL Blood (Blood, Venous) 01/05/2024 9:26 AM SALES REPRESENTATIVE GAS SERVICE 01/05/2024 9:46 AM SALES REPRESENTATIVE GAS SERVICE Vel Vinson M.D., M.B.A. LAB BLOOD ADD-ON F inal Result Performing Organization Address City/[facility]/ZIP Co de Phone Number [facility] [address] [place] [address] * CRP (C-Reactive Protein) (01/05/2024 9:26 AM SALES REPRESENTATIVE GAS SERVICE) Pathologist [facility] C-Reactive Protein (CRP), S 4.4 <5.0 mg/L 01/05/2024 11:12 AM SALES REPRESENTATIVE GAS SERVICE DTL Blood (Blood, Venous) 01/05/2024 9:26 AM SALES REPRESENTATIVE GAS SERVICE 01/05/2024 9:59 AM SALES REPRESENTATIVE GAS SERVICE us Vel Vinson M.D., M.B.A. LAB BLOOD ADD-ON F inal Result Performing Organization Address City/[facility] Co de Phone Number [facility] [address] [place] [address] * Ferritin (01/05/2024 9:26 AM SALES REPRESENTATIVE GAS SERVICE) Only the most recent of2 resultswithin the time period is included. Pathologist [facility] Ferritin, S 192 31 - 409 mcg/L 01/05/2024 12:31 PM SALES REPRESENTATIVE GAS SERVICE DTL Blood 01/05/2024 9:26 AM SALES REPRESENTATIVE GAS SERVICE 01/05/2024 9:59 AM SALES REPRESENTATIVE GAS SERVICE Brittney IRWIN, P.A.-C. LAB BLOOD ADD-ON Fin al Result Performing Organization Address City/[facility]/ZIP Co de Phone Number [facility] [address] [place] [address], [facility] [address] [place] [address] * Surgical Pathology (12/02/2023 11:55 AM CDT) Pathologist [facility] 12/10/2023 1:04 PM CDT DTL Report electronically [...] performance characteristics were determined by [facility] in a manner consistent with CLIA [...] LAB SURG PATH ORDERABLES F inal Result [facility] [address] [place] [address], [place] DTL [address] [place] [address] * Colonoscopy (12/02/2023 11:10 AM CDT) 12/02/2023 11:1 0 AM CDT Impressions [facility] - 12/02/2023 12:40 PM CDT Post-op Diagnoses: - Preparation of the colon was inadequate. - The examined portion of the ileum was normal. NO evidence of recent GI bleeding. - A single (solitary) ulcer at the splenic flexure. Biopsied. Tattooed. - Non-bleeding external and internal hemorrhoids. Narrative [facility] - 12/02/2023 12:40 PM CDT William 6 [...] bowel preparation was evaluated using the BBPS ([place] Bowel Preparation Scale) with scores of: Right [...] been signed electronically. Number of Addenda: 0 Theodore Dsouza M.D., M.P.H. GI PROCEDURE ORDERABL ES Final Result DANNA MOORE NA * Colon, Splenic flexure Colonoscopy-Gastroenterology Image [...] PROCE DURES Final Result [facility] NA * (ABNORMAL) Morphology Eval (special [...] C.N.P., D.N.P. LAB BLOOD ADD-ON Final Result [facility] [address] [place] [address], [facility] [address] [place] [address] * Folate (11/29/2023 7:49 AM CDT) Folate, S >20.0 >=4.0 mcg/L 12/01/2023 8: 08 AM CDT DTL Blood (Blood, Venous) 11/29/2023 7:49 AM CDT 11/29/2023 8:33 AM CDT Zahira Shaw APRN, C.N.P., D.N.P. LAB BLOOD ADD-ON Final Result Performing Organization Address [facility] Co de Phone Number [facility] [address] [place] [address], [facility] [address] [place] [address] * Vitamin B12 Assay (11/29/2023 7:49 AM CDT) [facility] Vitamin B12 Assay, S [phone] [...] BLOOD ADD-ON Final Result Performing Organization Address [facility] Co de Phone Number [facility] [address] [place] [address], [facility] [address] [place] [address] * CT Abdomen Pelvis without and with [...] M.D. LAB BLOOD ADD-ON Final R esult [facility] [address] [place] [address], [facility] [address] [place] [address] * Albumin, Random, Urine (03/10/2023 11:30 AM SALES REPRESENTATIVE GAS SERVICE) Microalbumin <12.0 mg/L 03/10/2023 11:54 AM SALES REPRESENTATIVE GAS SERVICE RDWG Comment:If clinically indica faviola, contact the lab for additional testing. Creatinine 112 mg/dL 03/10/2023 11:54 AM SALES REPRESENTATIVE GAS SERVICE RDW[facility] Albumin/Creatinine Ratio <11 <17 mg/g 03/10/2023 11:54 AM SALES REPRESENTATIVE GAS SERVICE [facility]DW[facility] Comment: This ratio may not correspond with the reference range because one or both of the values used to calculate the ratio was above or below the quantification limits. Urine (Urine, Midstream) 03/10/2023 11:30 AM SALES REPRESENTATIVE GAS SERVICE 03/10/2023 11:30 AM SALES REPRESENTATIVE GAS SERVICE Doug Lima M.D. LAB URINE ORDERABLES Final R esult [facility] [address] [place] [address], [facility] RDWG [facility] [address] [place] [address] from Last 3 Months or Most Recently Relevant to Health Maintenance Insurance [facility] RONY SUAREZ [id number] [employer]ICA[employer] Advance Directives For more information, please contact: [phone] * Full Code (Latest Code Status on [...] Name Relationship Healthcare Agent Relationship Communication Lor Flores Sister Health Care Agent Annamaria Riley [facility] Health Care Agent Care Teams Senior Packaging Engineer Relationship Specialty Start Date End Date Elsewhere, Pcp PCP - General Internal Medicine 10/03/23
--- OUTSIDE RECORDS SUMMARY | 2024-01-22 16:32 | XMS_ITS ---
Author Organization [facility] Address [address] [place] [address] Care Team Providers Care Desk Reporter Name Role Phone Unavailable Unavailable Unavailable Surgery Details Not on file Complications Check Surgery Details section. Procedure Estimated Blood Loss Check Surgery Details section. Procedure Findings Check Surgery Details section. Procedure Specimens Taken Check Surgery Details section.
--- OUTSIDE RECORDS SUMMARY | 2024-01-22 16:32 | XMS_ITS | Encounter Summary ---
Author Organization [facility] Address [address] [place] [id number] Care Team Providers Care Job Development Specialist Name Role Phone Elsewhere, Pcp Primary Care Provider Unavailabl e Reason for Referral * Outpatient (Routine) - Authorized Specialty Diagnoses / Procedures Referred By Tammi basilio Referred To Contact Diagnoses Fracture Femur Shaft Closed Initial Right (HCC) Procedures ORS Cast Room Visit Lizeth Joe MPAS PBelkisA.-CBelkis [address] [place] [phone] Phone: tel: fax: [facility] Referral ID Status Reason Start Date Expiration Date V isits Requested Visits Authorized [id number] Authorized 01/20/2024 01/19/2025 1 1 PREVENTION DETECTIVE Encounter Details Date Type Department Care Team (Late st Contact Info) Description 01/20/2024 Orders Only Department of Orthopedic Surgery in [place], [place] [address] [place] [phone] Lizeth Joe MPAS, P.A.-CBelkis [address] [place] [phone] Fracture Femur Shaft Closed Initial Right (HCC) (Primary Dx) Social History Tobacco Use [...] your living situation today? I have a [facility] place to live 01/15/2024 Sex and Gender Information Value Date Recorded Sex Assigned at Male 07/26/2022 1:30 PM CDT Legal Sex Male 6:41 AM LOSS PREVENTION DETECTIVE Gender Identity Male 07/26/2022 1:32 PM CDT Sexual Orientation Straight 07/26/2022 1: 32 PM CDT documented as of this encounter Plan of Treatment Upcoming Encounters Date Type Department Care Team (Latest Contact Info) Description 01/27/2024 12:30 PM LOSS PREVENTION DETECTIVE Appointment Department of Orthopedic Surgery in [address] [phone] Lizeth Joe MPAS, P.Yun.-C. [address] [place] [phone] Discharge Disposition: Home or Self Care 02/19/2024 1:45 PM LOSS PREVENTION DETECTIVE Appointment Department of Radiology, [facility], in [address] [phone] Fantasma Butt M.D. [address] [place] [phone] 02/20/2024 11:00 AM LOSS PREVENTION DETECTIVE Virtual Visit Department of Radiology, [facility], in [address] [phone] Radha Ojeda, PBelkisA.-C., M.S. [address] [place] [phone] 04/13/2024 2:00 PM LOSS PREVENTION DETECTIVE Clinical Communication Virtual Review in [place], [place] [address] [place] [phone] 04/15/2024 12:00 PM LOSS PREVENTION DETECTIVE Appointment Department of Radiology, [facility], in [address] [phone] Brittney Piña MPAS, P.A.-C. [address] [place] [phone] 04/15/2024 1:00 PM LOSS PREVENTION DETECTIVE Office Visit Department of Orthopedic Surgery in [place], [place] [address] [place] [phone] Vel Vinson M.D., M.B.A. [address] [place] [phone] Scheduled Orders Name Type Priority Associated Diagnoses Orde r Schedule ORS Cast Room Visit Procedures Routine Fracture Femur Shaft Closed Initial Right (HCC) Expected: 01/27/2024, Expires: 04/19/2025 documented as of this encounter Visit Diagnoses Diagnosis Fracture Femur Shaft Closed Initial Right (HCC)- Primary documented in this encounter Additional Health Concerns Infection Onset Date Last Indicated Resolved Time COVID19 Pending 01/20/2024 01/20/2024 01/20/2024 9 :04 AM LOSS PREVENTION DETECTIVE documented as of this encounter Care Teams Job Development Specialist Relationship Specialty Start Date End Date Elsewhere, Pcp PCP - General Internal Medicine 10/03/23 documented as of this encounter
--- OUTSIDE RECORDS SUMMARY | 2024-01-22 16:33 | XMS_ITS | Encounter Summary ---
Author Organization [facility] Address [address] [place] [address] Care Team Providers Care Project Economist Name Role Phone Elsewhere, Pcp Primary Care Provider Unavailabl e Reason for Visit * Reason Comments Fall * Auth/Cert (Routine) Specialty Diagnoses / Procedures Referred By Contac t Referred To Contact Diagnoses Fracture Femur Shaft Closed Initial Right (HCC) Procedures EMERGENCY Park Dodd M.D. [address] [place] [phone] Phone: tel: fax: Referral ID Status Reason Start Date Expiration Date Visits Re quested Visits Authorized [id number] 1 1 Encounter Details Date Type Department Care Team (Latest Contact Info) Description 01/15/2024 5:30 AM DIRECTOR OF SUSTAINABILITY PROGRAMS - 01/20/2024 10:02 AM DIRECTOR OF SUSTAINABILITY PROGRAMS Hospital Encounter [facility], [facility], Ninth Floor [address] [place] [phone] Yousif Calderon D.O. [address] [place] [phone] Park Dodd M.D. [address] [place] [phone] Len Hinojosa M.D. [address] [place] [phone] Ester Vann M.D. [address] [place] [phone] Fracture Femur Shaft Closed Initial Right (HCC) (Primary Dx); Decline Functional Status [R53.81] Discharge Disposition: Custodial Facility Social History Tobacco Use Types Packs/Day Years Used Date Smoking Tobacco: Never Passive Smoke Exposure: Never Smokeless Tobacco: Never Alcohol Use Standard Drinks/Week Comments Never 2 (1 standard drink = 0.6 oz pur e alcohol) [facility] Utilities Answer Date Recorded In [...] your living situation today? [facility] 01/15/2024 Sex and Gender Information Value Date Recorded Sex Assigned at Male 07/26/2022 1:30 PM CDT Legal Sex Male 6:41 AM DIRECTOR OF SUSTAINABILITY PROGRAMS Gender Identity Male 07/26/2022 1:32 PM CDT Sexual Orientation Straight 07/26/2022 1: 32 PM CDT documented as of this encounter Last Filed Vital Signs Vital Sign Reading Time Taken Comments Blood Pressure 122/63 01/20/2024 9:00 AM DIRECTOR OF SUSTAINABILITY PROGRAMS Pulse 62 01/20/2024 9:00 AM DIRECTOR OF SUSTAINABILITY PROGRAMS Temperature 36.4 C (97.5 F) 01/20/2024 9:00 AM DIRECTOR OF SUSTAINABILITY PROGRAMS Respiratory Rate 16 01/20/2024 9:00 AM DIRECTOR OF SUSTAINABILITY PROGRAMS Oxygen Saturation 97% 01/20/2024 9:00 AM DIRECTOR OF SUSTAINABILITY PROGRAMS Inhaled Oxygen Concentration - - Weight 97.8 kg (215 lb 9.8 oz) 01/15/2024 9:26 A M DIRECTOR OF SUSTAINABILITY PROGRAMS Height 181 cm (5' 11.26) 01/15/2024 9:26 AM DIRECTOR OF SUSTAINABILITY PROGRAMS Body Mass Index 29.85 01/15/2024 9:26 AM DIRECTOR OF SUSTAINABILITY PROGRAMS documented in this encounter Discharge Summaries * Lizeth Joe MPAS, P.A.-C. - 01/20/2024 8:58 AM CST Images from the original note were not included. BRIEF OVERVIEW Discharge Provider: Ester Vann M.D. Primary Care Providers: Elsewhere, Pcp (General) No address on file Primary Care Provider Phone Number: None Primary Care Provider Fax Number: None Admission Date: 01/15/2024 Discharge Date: 01/20/2024 PRINCIPAL DIAGNOSIS Fracture Femur Shaft Closed Initial Right (HCC) SECONDARY DIAGNOSES Principal Problem: Fracture Femur Shaft Closed Initial Right (HCC) Active Problems: Apnea Sleep Obstructive Hyperlipidemia Hypertension Essential Primary Peripheral Arterial Disease (HCC) Diabetes Mellitus Type 2 Ulcer Foot (HCC) Stenosis Carotid Artery Right Transient Ischemic Attack Occlusion Carotid Artery Left Stroke (HCC) Seizure (HCC) Stroke Cerebrovascular Accident Personal History Resolved Problems: * No resolved hospital problems. * Surgery Information This Encounter Past Procedures (01/20/2023 to Today) Date Procedures Providers Loc / Dept 01/16/2024 SURGICAL MANAGEMENT PERIPROSTHETIC FEMUR FRACTURE. Ester Vann M.D.Seward, Michael W, M.D.Schaefer, Jacob J, M.D.Rudisill, Samuel S, M.D. RST ROMB OR DISCHARGE DISPOSITION: Custodial Facility [3] POST DISCHARGE RECOMMENDATIONS: MEDICINE CONSULT DISCHARGE RECOMMENDATIONS: Please measure blood pressure from his left arm. Do NOT measure from his right arm, this will give inaccurate readings (falsely low) We initiated amlodipine 5 mg daily during this hospitalization Patient developed intermittent hyperkalemia during this hospitalization. Thus, lisinopril was held during this admission, and remains held upon discharge. Please assess for timing of re-initiation asable (long-term cardiovascular and renal benefit) Recommend continued outpatient follow-up and monitoring for his multifactorial anemia BLOOD GLUCOSE MANAGEMENT: Monitor blood glucose twice daily before morning and evening meal. Blood glucose goal is 100-160 mg/dL, higher goal due to comorbidities. Most recent A1c on record: Lab Results Component Value Date HGBA1C 5.1 01/07/2024 Please have provider at group home facility review blood glucoses at least twice weekly, or earlier if blood glucose values are consistently out of goal range, to determine if changes to diabetes therapy are indicated. ORTHOPEDIC TRAUMA SURGERY RECOMMENDATIONS: ACTIVITY MOBILITY - RIGHT LOWER EXTREMITY: You should remain TOE TOUCH weight bearing status until advised by a physician - using gait aid (walker or crutches) for ambulation assistance. This will be in place for 12 weeks after surgery. If your imaging studies are stable at your 12 week post op visit, we will likely start partial progressive weight bearing in the right leg You should keep the lower extremity elevated at or above the level of your heart to help decrease swelling and pain You are to keep your heel off the bed for extended periods to prevent pressure ulcers from forming You will continue with physical therapy and rehabilitation exercises as described in the hospital Range of motion: unrestricted motion right leg WOUND SURGICAL INCISION: You have a surgical incision - you should keep this clean and dry Change the dressings over the wound one to two times a day as needed to keep it clean and dry You have surgical sutures - these should NOT be removed until around 21 days from the date of surgery. You will be notified of this appointment date/time You may shower - providing that you have two consecutive days of a dry wound AVOID submerging the wound/soaking the wound - for example, you should avoid bath tubs, hot tubs, swimming pools, lakes for at least six weeks following the date of surgery You are to inspect the incision daily for signs and/or symptoms of infection - these would include increased pain or tenderness around/near the incision, increased redness or swelling around the wound, drainage from the incision, re- opening of the wound, temperature of 101.5 degrees F. If any of these symptoms develop - you should contact Dr. Vann's team and/or visit the Emergency Department for evaluation! PREVENA DRESSING CARE: a prevena dressing is a portable wound vac that may be used post operativelyover your incision. Your prevena wound vac dressing will be in place for one week, it will automatically stop after 1 week time frame. You will have a follow up visit in 1 week after placement to be removed. After it is removed - you should do dry gauze dressing changes daily and as needed. Please contact Dr. Vann's service if the machine stops working, you suddenly have a large amount of blood in the container or you have a marked increase in pain. FOLLOW UP: You have a follow up appointment in the cast room: You have a follow up appointment in the cast room on 01/27/24 with Lizeth Joe PA-C for PREVENAvac removal and wound check. Your sutures will remain in place though for 3-4 weeks following surgery to ensure adequate healing. Your appointment information will be mailed/sent to you. Please report to [facility] main admissions prior to your appointment If you have any questions or to make/verify appointments - you may contact Dr. Vann's service at [phone] during business hours For emergent problems - the service may be contacted by calling the [facility] prototype machine operator [phone] (asking for Dr. Vann's service) PRIMARY CARE PROVIDER FOLLOW UP: We recommend post hospital follow up with the patient's primary care provider within one week of discharge - you are to make this appointment OTHER INFORMATION BLOOD CLOT PROPHYLAXIS: Your Xarelto medication was resumed during your hospitalization, you shouldtake this as prescribed. You have been instructed on the signs and symptoms of deep vein thrombosis. Including??? calf swelling, pain or redness, fevers, chills sweating You have been instructed on the signs and symptoms of pulmonary embolism, which is a blood clot in your lungs Including??? chest pain or shortness of breath Should you develop any of the following symptoms - you should visit at Emergency Room PAIN: Oxycodone is a narcotic pain medication. There are numerous side effects including nausea, sedationand confusion. Narcotic medications do have addictive tendencies and can build up tolerance the longer these medications are taken. One of the most common side effects of these medications is constipation. It is recommended that a stool softener be used while taking this medication. Any over the counter stool softener or laxativeis acceptable - this would include Colace, Dulcolax, Miralax, Senokot, etc. Follow instructions on the medication container for usage. Do not drive, operate heavy machinery, ride motorcycles/ATVs, drink alcohol or take other drugs that may cause sedation while taking narcotic medications If you had a fracture - you may possibly be discharged with a small amount of narcotics to help manage discomfort If you underwent a surgical procedure - narcotics may be used for 1-2 weeks after surgery. We expect you to wean completely off of the narcotic pain medications by 2-3 weeks post operatively, using over the counter medications will continue to be recommended if needed At any time - acetaminophen (Tylenol) may be used for pain control. One gram (1000 mg) can be takensafely in most patients every six hours. You may also take 600 mg Ibuprofen every six hours if you do not have any medical contra- indications to NSAIDs It is our expectation that while we are prescribing narcotic medications, you should NOT be receiving additional narcotics from outside providers. If you have a pain contract in place - you will needto see that specific provider for adjustments/recommendations. The Prescription Monitoring Program database will be checked prior to filling pain medications - ifit is noted that you are receiving from outside providers/seeking out additional medications, we may not offer additional refills. Your primary care provider should be made aware if you are taking narcotics. It is also recommendedyou follow up with your primary care provider if taking the over the counter medications (NSAIDs, Tylenol) scheduled for extended periods of time. OPERATING A MOTOR VEHICLE: You should abstain from driving until pain is gone, you are full weight bearing, you are comfortable with wearing a seatbelt, you have been off of narcotics for at least 24hours NUTRITION: After sustaining a fracture and/or in a post surgical state - it is essential for you to have adequate nutritional intake for optimizing healing. Studies have shown drastic improved outcome for fracture patients with sufficient nutritional status It is recommended you take a multi-vitamin daily if you are not able to achieve recommended daily intake of essential nutrients A balanced diet with recommended daily servings of lean protein, vegetables and grains can help ensure adequate nutrition CALCIUM: It is recommended you obtain adequate calcium in your diet to aid in fracture healing and decrease your fracture risk in the future Recommended intake of calcium per day is 1000 - 1500 mg daily Important dietary sources include??? dairy products (milk, yogurt, cheese), dark green vegetables, canned fish with bones (but not fish fillets), nuts, fortified foods (juices, cereals, waffles, crackers, snack foods) Calcium supplement may be required if intake not possible through diet Optimally should be taken in doses of less than 500 or 600 mg at a time to maximize absorption (absorption decreases with greater calcium loads). Preferred time to take supplements is with meals - calcium is better absorbed in an acidic environment You should also take 1000 units of vitamin D per day in order to aid calcium absorption FACILITATING BONE/WOUND HEALING: Nicotine inhibits bone/wound healing - it is advised that you avoid tobacco products COMPLETELY! This includes nicotine replacement therapies (vaping, chewing tobacco, gums, patches, etc) IF YOU WERE DIAGNOSED OR HAVE A HISTORY OF OSTEOPOROSIS OSTEOPOROSIS: osteoporosis is decreased bone strength predisposing you to increased risk of fracture. The incidence of fracture is high in people with osteoporosis and increases with age Bone density is the best predictor of fracture - regular bone density studies are recommended Adequate calcium and vitamin D intake from diet and/or supplementation along with physical activityincrease bone density - which can reduce the risk of fractures Please see nutritional, calcium/vitamin D recommendations above. POST OPERATIVE INFECTION - INFORMATION ANTIBIOTICS: You were instructed to take antibiotics following your procedure for 3 month duration. Please follow instructions on the prescription, and take all doses of the medication. Please do NOT discontinue the medication, even if you feel your symptoms have improved. Please notify our group if persistent or worsening symptoms/signs of infection. This would include increased swelling, redness or warmth around the wound. If there is increased drainage from surgicalincision. Fevers greater than 101.5 or chills. OUTPATIENT FOLLOW UP Scheduled Appointments 01/27/2024 12:30 PM Lizeth Joe MPAS P.Yun.-Venu.; RM CAST 01 ROMB ORS Orthopedic Surgery 01/29/2024 11:00 AM RST ORS SPM INTAKE VISIT Admitting/Central Scheduling 02/03/2024 10:00 AM Vel Vinson M.D., M.B.A. Orthopedic Surgery 02/12/2024 2:45 PM RST ORS SPM INTAKE VISIT Admitting/Central Scheduling 02/19/2024 10:45 AM DX ROGO [address] Radiology 02/19/2024 11:45 AM Vel Vinson M.D., M.B.A. Orthopedic Surgery 02/19/2024 1:45 PM US ROGO 04 RM 4 Radiology 02/20/2024 11:00 AM Radha Ojeda P.Yun.-Venu., M.S. Radiology For appointment details refer to your Patient Appointment Guide. TEST RESULTS PENDING AT DISCHARGE Pending Labs Order Current Status Hemoglobin Collected (01/20/24 0857) SARS Coronavirus 2, PCR Rapid Symptomatic Preliminary result DISCHARGE MEDICATIONS Medication List TAKE these medications acetaminophen 500 mg tablet Dose: 1,000 mg Commonly known as: TylenoL Take 2 tablets (1,000 mg total) by mouth 4 (four) times a day. What changed: when to take this reasons to take this amLODIPine 5 mg tablet Dose: 5 mg Commonly known as: Norvasc Take 1 tablet (5 mg total) by mouth daily. aspirin 81 mg chewable tablet Dose: 81 mg Chew 1 tablet (81 mg total) daily. atorvastatin 40 mg tablet Dose: 40 mg Commonly known as: Lipitor Take 1 tablet (40 mg total) by mouth at bedtime. What changed: medication strength how much to take calcium citrate-vitamin D3 315 mg-5 mcg (200 Unit) per tablet Dose: 2 tablet Commonly known as: Citracal + D3 Take 2 tablets by mouth 2 (two) times a day. carboxymethylcellulose 0.5 % ophthalmic solution Dose: 2 drop Commonly known as: Refresh Plus Administer 2 drops into both eyes 4 (four) times a day as needed for dry eyes. cefadroxil 500 mg capsule Dose: 500 mg Commonly known as: Duricef Take 1 capsule (500 mg total) by mouth 2 (two) times a day Indications: Blood stream infection, Bone and/or joint infection. lancets Dose: 1 test 1 each daily. levETIRAcetam 100 mg/mL solution Dose: 750 mg Commonly known as: Keppra Take 7.5 mL (750 mg total) by mouth 2 (two) times a day. lisinopriL 5 mg tablet Dose: 5 mg Take 1 tablet (5 mg total) by mouth daily. HOLD AT DISCHARGE, discuss resuming medication with facility provider / primary care provider. What changed: additional instructions NovoLIN N FlexPen 100 unit/mL (3 mL) pen Dose: 8 Units Generic drug: insulin NPH Inject 8 Units under the skin every morning. What changed: how much to take when to take this additional instructions * nystatin 100,000 unit/gram powder Dose: 1 Application Commonly known as: Nystop * nystatin 100,000 unit/gram cream Dose: 1 Application Commonly known as: Mycostatin oxyCODONE 5 mg immediate release tablet Dose: 5 mg Commonly known as: Roxicodone Take 1 tablet (5 mg total) by mouth every 4 (four) hours as needed for pain Indication: Acute Pain Exception. Take 1 tablet (5 mg) if pain 5-7/10, take 2 tablets (10 mg) if pain 8-10/10 pantoprazole 40 mg EC tablet Dose: 40 mg Commonly known as: Protonix pen needle, diabetic 31 gauge x 5/16 needle Dose: 1 Injection Commonly known as: BD Ultra-Fine Short Pen Needle 1 Injection daily. polyethylene glycol 17 gram powder packet Dose: 17 g Commonly known as: Miralax rivaroxaban 10 mg tablet Dose: 10 mg Commonly known as: Xarelto Take 1 tablet (10 mg total) by mouth daily. What changed: additional instructions senna 8.6 mg tablet Dose: 8.6 mg Generic drug: sennosides * This list has 2 medication(s) that are the same as other medications prescribed for you. Read thedirections carefully, and ask your doctor or other care provider to review them with you. Stopped Medications HYDROmorphone 2 mg tablet Commonly known as: Dilaudid DETAILS OF HOSPITAL STAY REASON FOR ADMISSION Fracture Femur Shaft Closed Initial Right (HCC) HOSPITAL COURSE # Right closed displaced periprosthetic femur fracture about the tip of a modular fluted tapered stem s/p ORIF with plate, screw and cable fixation (Dr. Vann, 01/16/24) # Status post mechanical ground-level fall, 01/14/2024 The patient was admitted to [facility]. Internal medicine team was consulted to assist with TALYA and medical management. On 01/16/24, the patient was taken to the operating room for ORIF right periprosthetic femur fracture with plate/screw/cable fixation. The patient tolerated the procedure well and returned to the orthopedic nursing care floor. Hemoglobin on 01/16 was 7.6 and he had associated hypotension. 1 PRBC was transfused and labs stabilized prior to dismissal. 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 Upon moving the cuff to his left arm, his blood pressure readings were normotensive to hypertensive. He has remained vitally stable since last night. From now on, strongly recommended that his blood pressures are measured from his left arm only (avoided right arm due to inaccurate readings). Given hypertension, we considered resuming his home lisinopril. But review of records reveal that patient has been intermittently hyperkalemic even without lisinopril with elevated BUN still (without elevated creatinine). Thus, after discussion with the pharmacy, we proceeded with amlodipine 5 mg instead of lisinopril 5. Re-initiation of lisinopril can be re- evaluated in the outpatient setting (as lisinopril will have car diovascular/renal benefits with patient's comorbidities) Physical therapy was consulted for assistance with mobilization. vocational services specialist was consulted to assist with placement. Diet was advanced per protocol, and was tolerating regular diet. The pain was initially controlled on IV medications, and weaned to oral medications as tolerated. The patient hadadequate pain control on the oral regimen. The patient's bowel and bladder function returned to itspreoperative state. The patient was mobilizing with physical therapy. Based off recommendations from service lines, the patient was discharged to a group home facility. 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 CTOR OF SUSTAINABILITY PROGRAMS documented in this encounter Discharge Instructions * Discharge Instructions* Albert Lay APRN, C.N.P., D.N.P. - 01/20/2024 8:06 AM DIRECTOR OF SUSTAINABILITY PROGRAMS BLOOD GLUCOSE MANAGEMENT: Monitor blood glucose twice daily before morning and evening meal. Blood glucose goal is 100-160 mg/dL, higher goal due to comorbidities. Most recent A1c on record: Lab Results Component Value Date HGBA1C 5.1 01/07/2024 Please have provider at group home facility review blood glucoses at least twice weekly, or earlier if blood glucose values are consistently out of goal range, to determine if changes to diabetes therapy are indicated. As Diabetes and Nutritional Education is important to your diabetes management, yearly follow up with a local Knockup Worker and Dietitian is recommended. Please check with your insurance company as diabetes education visits are commonly covered. Your primary care provider can provide referrals for education. CTOR OF SUSTAINABILITY PROGRAMS * Attachments The following attachments cannot be sent through Care Everywhere. * Amlodipine (By mouth) (Libyan) * Calcium/Vitamin D Supplement (By mouth) (Libyan) * Oxycodone, Rapid Release (By mouth) (Libyan) documented in this encounter Medications at Time of Discharge acetaminophen (TylenoL) 500 mg tablet Take 2 tablets (1,000 mg total) by mouth 4 (four) times a day. 01/20/2024 amLODIPine (Norvasc) 5 mg tablet Take 1 tablet (5 mg total) by mouth daily. 30 tablet 01/20/2024 atorvastatin (Lipitor) 40 mg tablet Take 1 tablet (40 mg total) by mouth at bedtime. 30 tablet 01/20/2024 calcium citrate-vitamin D3 (Citracal + D3) 315 mg-5 mcg (200 Unit) per tablet Take 2 tablets by mouth 2 (two) times a day. 01/20/2024 carboxymethylcel lulose (REFRESH PLUS) 0.5 % ophthalmic solution Administer 2 drops into both eyes 4 (four) times a day as needed for dry eyes. 50 each 06/25/2023 cefadroxil (Duricef) 500 mg capsuleIndicatio ns:Blood stream infection,Bone and/or joint infection Take 1 capsule (500 mg total) by mouth 2 (two) times a day Indications: Blood stream infection, Bone and/or joint infection. 01/20/2024 insulin NPH (NovoLIN N FlexPen) 100 unit/mL (3 mL) pen Inject 8 Units under the skin every morning. 3 mL 01/20/2024 lancets 1 each daily. 50 each 07/29/2022 levETIRAcetam (Keppra) 100 mg/mL solution Take 7.5 mL (750 mg total) by mouth 2 (two) times a day. 06/25/2023 lisinopriL 5 mg tablet Take 1 tablet (5 mg total) by mouth daily. HOLD AT DISCHARGE, discuss resuming medication with facility provider / primary care provider. 01/20/2024 nystatin (Mycostatin) 100,000 unit/gram cream Apply 1 Application topically 2 (two) times a day. 12/25/2023 nystatin (Nystop) 100,000 unit/gram powder Apply 1 Application topically 2 (two) times a day. oxyCODONE (Roxicodone) 5 mg immediate release tabletIndication s:Acute Pain Exception Take 1 tablet (5 mg total) by mouth every 4 (four) hours as needed for pain Indication: Acute Pain Exception. Take 1 tablet (5 mg) if pain 5-7/10, take 2 tablets (10 mg) if pain 8-10/10 20 tablet 01/20/2024 pantoprazole (Protonix) 40 mg EC tablet Take 40 mg by mouth daily before morning meal. pen needle, diabetic (BD Ultra-Fine Short Pen Needle) 31 gauge x 5/16 needle 1 Injection daily. 100 each 3 12/31/2022 polyethylene glycol (Miralax) 17 gram powder packet Take 17 g by mouth daily. Dissolve each 17 g dose in 240 mLs (8 ounces) of beverage. rivaroxaban (Xarelto) 10 mg tablet Take 1 tablet (10 mg total) by mouth daily. 30 tablet 11 01/20/2024 sennosides (senna) 8.6 mg tablet Take 8.6 mg by mouth 2 (two) times a day. documented as of this encounter Progress Notes * Graham Alfonso M.SJeremy., LBelkisG.S.W. - 01/20/2024 7:51 AM CST SUBJECTIVE Mr. Lester's guardian, Lor CooneygeraldMary, contacted social work with a number of questions regarding follow-up care. Lor did send a protal message requesting to talk to service before discharge. Lizeth Joe PA-C will contact her regarding follow-up questions. OBJECTIVE Mr. Lester is in his room and was not seen. ASSESSMENT / PLAN ASSESSMENT N/A PLAN Patient to return to: Destination - Admitted Since 01/15/2024 Service Provider Services Address Phone Fax Patient Preferred [facility] [address] [place] [id number] -- Contact: Intake - [phone] Patient has a MA bedhold. Facility can manage IV antibiotics. Facility can manage a wound vac. Facility preferred wound vac type: None Facility cannot accept weekend readmissions. COVID screening needed before patient can return: yes, guidelines required: 24 hours before leaving Facility prefers patient return by 2p. Facility oxygen provider is N/A . Was the patient on oxygen at your facility: no Transportation to be provided by stretcher van transport. Friday 01/19 at 10:00 AM with [facility] ([phone]). NURSING: Complete documentation in the Discharge Navigator [...] infection precautions and phone numbers to call. Social Work : Reviewed patient's insurance coverage for the services noted above. The Guardian, sister, Lor Tanner appear(s) to have an understanding of this. Will continue to follow and assist if needs arise. nAitha Muir., DinaS.W. 01/20/24 CTOR OF SUSTAINABILITY PROGRAMS * Lul Soriano M.D. - 01/20/2024 6:06 AM CST Orthopedic Trauma Surgery Daily Progress Note Orthopedic Service: [facility] Hospital Admission Day: 01/15/2024 Surgery Information This Encounter Past Procedures (01/20/2023 to Today) Date Procedures Providers Loc / Dept 01/16/2024 SURGICAL MANAGEMENT PERIPROSTHETIC FEMUR FRACTURE. Soo, Eagle Buckley Michael W, M.D.Schaefer, Jacob J, M.D.Rudisill, Samuel S, M.D. RST ROMB OR SUBJECTIVE Mr. Lester is doing well this morning. He was afebrile and mildly hypotensive overnight. That has no output in his wound VAC. He had 50 cc in his drain overnight. Otherwise he is denying chest pain, fever, nausea or vomiting. No other acute complaints this morning. OBJECTIVE Vitals Temperature: [36.3 ??C-36.9 ??C] 36.6 ??C Resp Rate: [15-16] 16 Blood Pressure: (129-157)/(54-74) 129/54 SpO2: [96 %-99 %] 98 % Flow Rate (L/min): [1 L/min] 1 L/min Pulse Rate: [59-66] 59 I/O last 3 completed shifts: In: 240 [P.O.:240] Out: 1349 [Urine:1000; Drains:345; Other:4] Exam - General: Alert and oriented, not in acute distress, follows commands. - MSK - Right Lower Extremity: iVac holding suction. Calf is soft and non- tender. Exam unchanged again today. Able to actively dorsiflex and plantarflex at the ankle; able to actively flex and extendthrough the great toe and lesser digits. Active PF/DF ROM is limited compared to the contralateral side but he states this is chronic. Sensation grossly intact to light touch along the tibial, sural,saphenous, superficial peroneal, and deep peroneal nerve distributions. Foot warm and well-perfused. Labs Lab Results Component Value Date HGB 8.8 (L) 01/18/2024 WBC 15.3 (H) 01/18/2024 PLT 243 01/18/2024 CREATININE 1.04 01/18/2024 NA 137 01/18/2024 INR 1.6 01/15/2024 Lab Results Component Value Date NA 137 01/18/2024 CL 103 01/18/2024 CREATININE 1.04 01/18/2024 EGFR 83 01/18/2024 BUN 35 (H) 01/18/2024 ANIONGAP 8 01/18/2024 GLUCOSE 104 01/18/2024 CALCIUM 9.0 01/18/2024 Imaging DX Femur Right 2 Views Result Date: 01/16/2024 Impression: Metallic plate and multiscrew fixation of the periprosthetic femoral fracture. No grosshardware failure. Drains. ASSESSMENT / PLAN Impression & Report #1 Apnea Sleep Obstructive #2 Hyperlipidemia #3 Hypertension Essential Primary #4 Peripheral Arterial Disease (HCC) #5 Diabetes Mellitus Type 2 Ulcer Foot (HCC) #6 Stenosis Carotid Artery Right #7 Transient Ischemic Attack #8 Occlusion Carotid Artery Left #9 Stroke ([facility]) #10 Seizure ([facility]) #11 Stroke Cerebrovascular Accident Personal History #12 Fracture Femur Shaft Closed Initial Right ([facility]) # Status post surgical management of right periprosthetic femur fracture on 01/16/[address] Vann Overall he continues to do well. We will remove his drain today and stop his Ancef. We will transitioned to oral antibiotics. We will restart his home Xarelto. He is appropriate for discharge. PT/OT: TTWB RLE x 12 weeks. Then partial progressive thereafter. - Diet: Advance diet as tolerated - Antibiotics: Periop vancomycin complete, Ancef stopped. We will start cefadroxil 500 mg p.o. b.i.d.. - Multimodal pain control - DVT Prophylaxis: Recommend Heme consult for prophylaxis given risks of bleeding/clotting (CVA x 2, GI bleed). Appreciate work-up for anemia as well. - Dressing: Transition to Prevena wound vac upon discharge x 7 days. - Drains: Removed - Recommend inpatient Nutrition consult and Panorex of the teeth. - Outpatient Endocrine referral for bone health optimization. - Follow-Up: Return to Cast Room 1 week upon discharge for Prevena removal. Maintain sutures x 3-4 weeks. Repeat XRs R Femur at 6 weeks and 12 weeks. Begin partial progressive WB with a walker if radiographs are stable. Should the construct fail prior to union, recommend consideration for a total femur. From 6am-6pm Friday-Friday, please contact [facility] at [phone] with any questions regarding this patient. If overnight [phone] or any time on weekends, please contact the Orthopedic Surgery house resident seasoner hand at [phone]. CTOR OF SUSTAINABILITY PROGRAMS * Radha Buckley O.T. - 01/19/2024 3:29 PM CST Patient refused therapy this date. Attempted coaxing for participation with OT, PT, and nursing butrefused multiple times. Will attempt to see patient tomorrow for occupational therapy as able. Radha Buckley O.T. CTOR OF SUSTAINABILITY PROGRAMS * Kimberley Ortiz P.T., D.P.T. - 01/19/2024 2:49 PM CST 01/19/24 1449 General Reason Therapy Missed Patient declined therapy RN, OT and PT attempted to engage patient in therapy session this afternoon. He repeatedly yelled out no despite encouragement and education provided. Will follow up as able and appropriate to progress plan of care. Kimberley Otriz P.T., Rodrigo.P.T. CTOR OF SUSTAINABILITY PROGRAMS * Allyssa Li, Pharm.D., R.Ph. - 01/19/2024 12:22 PM CST Pharmacist Progress Note Reason for admission: right periprosthetic femur fracture from a fall out of bed on 01/15/24 S/P Surgical Management of Periprosthetic Femur Fracture 01/16/24. PMH: HTN, HLD, HFmrEF (LVEF 47% 05/2023), PAD, Bilateral ICA stenosis s/p angioplasty of the right ICA (07/2022) complicated by restenosis s/p drug coated angioplasty (03/2023), Left MCA infarct in total occlusion of the left ICA s/p thrombectomy and stenting of the left ICA (05/2023), MICHELET, T2 DM, Anemia, Oralia-Corado tear s/p EGD (10/2023), reimplantation of the right total hip arthroplasty on 01/06/24 OBJECTIVE Home medications: Held: rivaroxaban, NPH, lisinopril, refresh plus, HYDROmorphone oral, lisinopril, nystatin cream/powder Changed: Atorvastatin increased from 20 to 40mg QHS; insulin Prophylaxis: Enoxaparin 30mg SQ BID; Pantoprazole 40mg PO QAM Serum creatinine: 1.04 mg/dL 01/18/24 0417 Estimated creatinine clearance: 105.8 mL/min ASSESSMENT / PLAN right periprosthetic femur fracture OR on 01/16/24 Holding home rivaroxaban (last dose was in PM on 01/14/24) Acetaminophen 1 g qid, HYDROmorphone 0.2 mg IV Q2h prn, oxyCODONE 5-10 mg q4h prn for pain control BR+, LBM today 01/17 Hgb 8.8, close follow up 2. T2 DM: Holding home NPH On insulins aspart sliding scale 3. Left MCA infarct: Home aspirin restarted Continues home levETIRAcetam 750 mg BID 4. HTN/HDL Home atorvastatin 20 mg increased to 40mg QHS per 01/15 Vascular Medicine recommendation. Holding lisinopril 5. For open surgical repair, ID recommends; Continues on IV ceFAZolin while drains in place per Service. Consider transitioning to Cefadroxil 500mg BID x3 months (EOT 04/16/2024) per ID recommendations. Completed perioperative prophylaxis of 24 hours of cefazolin 2 g IV q8h + vancomycin 15 mg/kg IV q12h. Changes to medications anticipated at discharge: Cefadroxil Rx plus possible pain medications and bowel regimen Allyssa Li, PharmBelkisD., R.Ph. CTOR OF SUSTAINABILITY PROGRAMS * Graham Alfonso, M.S.W., L.G.S.W. - 01/19/2024 10:48 AM CST SUBJECTIVE Mr. Lester had a full psychosocial assessment on 05/26/23 by Dawn Parks [employer] TRADER, OUTBOARD MOTOR INSPECTOR. This should be consulted for full psychosocial assessment details. Mr. Lester visited with social work this morning. Mr. Lester provided sparse details, but stated, he was doing good. He provided this information but was sparse with conversation and details.He affirmed that he felt good and wanted to return to [facility] when medically ready. Mr. Lester now has a guardian, his sister Lor Tanner. This document is on file. Silvia also moved to [facility] in [place]. Mrs. Tanner affirmed that would like to discharge back to [facility] once he is medically ready. However, she had a number of questions regarding follow-up care going forward. She requested consultation from Dr. Vann or her team. OBJECTIVE Mr. Lester was left in his room to rest. ASSESSMENT / PLAN ASSESSMENT Mr. Lester is a 59 year old man who presents casually and adequately dressed. Grooming is adequate. Hygiene was in need of nursing support. His eye contact is adequate. Is pleasant and cooperative. Speech is delivered at a normal rate, rhythm, and volume. Thought processes appear logical. Mood appears adequate and affect somewhat flat. Cognitive functioning, psychomotor movements, and judgement could not be assessed. PLAN Mr. Lester would like to discharge back to [facility] nursing [facility] in [place]. Social work will follow for support and discharge needs. Anitha Muir., Yifan. 01/19/24 CTOR OF SUSTAINABILITY PROGRAMS * Lul Soriano M.D. - 01/19/2024 6:36 AM CST Orthopedic Trauma Surgery Daily Progress Note Orthopedic Service: [facility] Hospital Admission Day: 01/15/2024 Surgery Information This Encounter Past Procedures (01/19/2023 to Today) Date Procedures Providers Loc / Dept 01/16/2024 SURGICAL MANAGEMENT PERIPROSTHETIC FEMUR FRACTURE. Ester Vann M.D.Seward, Michael W, M.D.Schaefer, Jacob J, M.D.Rudisill, Samuel S, M.D. RST ROMB OR SUBJECTIVE Mr. Lester is doing well. He has been afebrile in his vital signs are stable. He is making adequate urine and stool. Drain 1 with 105 cc out overnight. Drain to his 0 cc out overnight. Hemoglobinstable at 8.8 yesterday. He is denying any chest pain, fever, nausea or vomiting. His cultures havehad no growth to date. No output in iVac OBJECTIVE Vitals Temperature: [36.2 ??C-36.6 ??C] 36.6 ??C Resp Rate: [14-16] 14 Blood Pressure: (127-175)/(60-78) 127/60 SpO2: [93 %-100 %] 96 % Pulse Rate: [51-73] 61 I/O last 3 completed shifts: In: 2925.8 [P.O.:1135] Out: 992 [Urine:700; Drains:290; Other:2] Output by Drain (mL) 01/17/24 0701 - 01/17/24 1900 01/17/24 1901 - 01/18/24 0700 01/18/24 0701 - 01/18/24 1900 01/18/24 190 - 01/19/24 0636 Closed/Suction Drain 1 Right Thigh Accordion 10 Fr. 3.2 mm 60 80 0 150 Closed/Suction Drain Right Thigh Accordion 10 Fr. 3.2 mm 65 0 60 0 Exam - General: Alert and oriented, not in acute distress, follows commands. - MSK - Right Lower Extremity: Hip wrap in place, iVac holding suction. Calf is soft and non-tender. Able to actively dorsiflex and plantarflex at the ankle; able to actively flex and extend through the great toe and lesser digits. Active PF/DF ROM is limited compared to the contralateral side but he states this is chronic. Sensation grossly intact to light touch along the tibial, sural, saphenous, superficial peroneal, and deep peroneal nerve distributions. Foot warm and well-perfused. Labs Lab Results Component Value Date HGB 8.8 (L) 01/18/2024 WBC 15.3 (H) 01/18/2024 PLT 243 01/18/2024 CREATININE 1.04 01/18/2024 NA 137 01/18/2024 INR 1.6 01/15/2024 Lab Results Component Value Date NA 137 01/18/2024 CL 103 01/18/2024 CREATININE 1.04 01/18/2024 EGFR 83 01/18/2024 BUN 35 (H) 01/18/2024 ANIONGAP 8 01/18/2024 GLUCOSE 104 01/18/2024 CALCIUM 9.0 01/18/2024 Imaging DX Femur Right 2 Views Result Date: 01/16/2024 Impression: Metallic plate and multiscrew fixation of the periprosthetic femoral fracture. No grosshardware failure. Drains. ASSESSMENT / PLAN Impression & Report #1 Apnea Sleep Obstructive #2 Hyperlipidemia #3 Hypertension Essential Primary #4 Peripheral Arterial Disease (HCC) #5 Diabetes Mellitus Type 2 Ulcer Foot (HCC) #6 Stenosis Carotid Artery Right #7 Transient Ischemic Attack #8 Occlusion Carotid Artery Left #9 Stroke (HCC) #10 Seizure (HCC) #11 Stroke Cerebrovascular Accident Personal History #12 Fracture Femur Shaft Closed Initial Right (HCC) # Status post surgical management of right periprosthetic femur fracture on 01/16/[address] Vann Overall, the patient is doing well. No major new updates today. We [facility]. Drain 2 will be removed today. PT/OT: TTWB RLE x 12 weeks. Then partial progressive thereafter. - Diet: Advance diet as tolerated - Antibiotics: Periop vancomycin complete, Ancef scheduled q8 hours while drains remain in place. - Multimodal pain control - DVT Prophylaxis: Recommend Heme consult for prophylaxis given risks of bleeding/clotting (CVA x 2, GI bleed). Appreciate work-up for anemia as well. - Dressing: Transition to Prevena wound vac upon discharge x 7 days. - Drains x 1: Remove when < 20cc/shift x 3 or < 60cc/24 hours. - Recommend inpatient Nutrition consult and Panorex of the teeth. - Outpatient Endocrine referral for bone health optimization. - Follow-Up: Return to Cast Room 1 week upon discharge for Prevena removal. Maintain sutures x 3-4 weeks. Repeat XRs R Femur at 6 weeks and 12 weeks. Begin partial progressive WB with a walker if radiographs are stable. Should the construct fail prior to union, recommend consideration for a total femur. From 6am-6pm Friday-Friday, please contact OTS[facility]3 at [phone] with any questions regarding this patient. If overnight [phone] or any time on weekends, please contact the Orthopedic Surgery house resident seasoner hand at [phone]. CTOR OF SUSTAINABILITY PROGRAMS CTOR OF SUSTAINABILITY PROGRAMS * Doug Narvaez M.D. - 01/18/2024 11:54 AM CST I saw and evaluated Mr. Estevan Lester on rounds today and agree with the findings and plan as documented in today's Medicine Consult resident note with the following comments: ASSESSMENT / PLAN #1 Status post surgical intervention for right periprosthetic femoral shaft fracture January 16, 2024 #2 Postoperative anemia #3 Hypertension #4 CHF, EF 47% May 2023 #5 Peripheral artery disease #6 Hyperlipidemia #7 Bilateral ICA stenosis status post angioplasty right ICA July 2022 complicated by restenosis status post angioplasty March 2023 #8 Left MCA infarct with total occlusion left ICA status post thrombectomy and stenting left ICA May 2023 #9 MICHELET not currently on CPAP #10 DM 2, on insulin therapy #11 Anemia suspect secondary to anemia of chronic inflammation and blood loss #12 Minor seizure activity EEG May 2023 #13 Oralia-Corado tear status post EGD 10/2023 #14 Hematochezia status post colonoscopy 11/2023 demonstrating ulceration your splenic flexure withplan for repeat in 3 months #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 Lester has no new complaints today. We note that his blood pressures are high when taken onthe left side. Most recent 175/78. The hypotension noted yesterday is very likely artifact from taking blood pressures on the right stroke-affected side. He is usually on lisinopril though recently has been having hyperkalemia and BUN slightly up still. We are pleased to see that his creatinine is coming down. For now to address the hypertension we will start low-dose amlodipine. In the future lisinopril could be considered for restart. Would recommend restarting aspirin today given his significant vasculopathy. Recommend moving from IV antibiotics to suppressive antibiotic therapy that he takes for the right ISRRAEL infection. He is doing very well at this time and we expect him to continue to do well. We will sign off at this time if okay with the primary service. Please do not hesitate to contact us with any questions. Please refer to the Medicine Consult resident note dated today for additional details about our team's plan of care. CTOR OF SUSTAINABILITY PROGRAMS * Daljit Zavala M.D. - 01/18/2024 11:39 AM CST Medicine Consult Progress/SIGN OFF Note SUBJECTIVE Interval Events: - patient has had repeated hypotensive blood pressure readings during the day yesterday. Upon further investigation, patient's blood pressure cuff was found to be on his right arm, which has flaccidparalysis from his stroke history. Upon moving the blood pressure cuff to his left arm, his blood pressure readings came up to normotensive/hypertensive range. He remained hemodynamically stable since. - EDGARAnn-MarieON - patient seen this morning, in good spirits. Family is in the room visiting. I have reviewed the current medication list. OBJECTIVE VITAL SIGNS Temperature: [36.2 ??C-36.7 ??C] 36.2 ??C Resp Rate: [15-18] 15 Blood Pressure: (81-175)/(47-78) 164/75 SpO2: [96 %-100 %] 99 % Pulse Rate: [49-61] 60 Body mass index is 29.85 kg/m??. Intake/Output Last 24 Hours: Intake/Output Summary (Last 24 hours) at 01/18/2024 1139 Last data filed at 01/18/2024 0840 Gross per 24 hour Intake 2670.83 ml Output 470 ml Net 2200.83 ml PHYSICAL EXAMINATION General: Alert, well appearing male in no acute distress Eyes: Clear, non-injected, anicteric conjunctiva. CV: regular rate and rhythm without murmurs/rubs/gallops Pulm: nonlabored respirations, clear to auscultation bilaterally anteriorly Abdomen: soft, mild tenderness to palpation to RUQ Extremities: Warm and well-perfused UE and LE. Skin: no obvious lesions or rashes on exposed skin Neuro: Clear speech. Right sided weakness (known deficit, not new) Psych: Appropriate affect. DIAGNOSTICS I have independently reviewed labs and diagnostics. ASSESSMENT / PLAN Mr. Lester is hospitalized on [facility] Orthopedic Trauma Surgery 2S - S[place] for evaluation and management of Fracture Femur Shaft Closed Initial Right (HCC) and is status post Surgery Information This Encounter Past Procedures (01/18/2023 to Today) Date Procedures Providers Loc / Dept 01/16/2024 SURGICAL MANAGEMENT PERIPROSTHETIC FEMUR FRACTURE. Soo, Eagle Buckley Michael W, M.D.Schaefer, Jacob J, M.D.Rudisill, Samuel S, M.D. [facility] ROMB OR Medicine Consult service was consulted for evaluation/recommendations of TALYA and FRANK. 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) #Peripheral arterial disease #Bilateral ICA stenosis status post angioplasty of the right ICA (07/2022) complicated by restenosis status post drug coated angioplasty (03/2023) #Left MCA infarct in total occlusion of the left ICA status post thrombectomy and stenting of the left ICA (05/2023) #MICHELET no current CPAP #Type 2 diabetes on insulin #Anemia, suspected secondary to blood loss #CVA involving left MCA around time of surgery in June 07, 2023 with residual expressive aphasia and right-sided hemiparesis #Minor seizure activity noted on EEG performed in 05/2023 following stroke for which levetiracetam was prescribed #Oralia-Corado tear status post EGD (10/2023) #Hematochezia status post colonoscopy (11/2023) showing ulceration near splenic flexure with plan for repeat in 3 months # 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 Lester is a 59 y.o. male referred for a preoperative medical evaluation prior to surgical management of right periprosthetic femur fracture, which patient underwent on 01/16/2024. Their presentation comes in the context of a past history as noted above. Patient is doing well after surgery. He had multiple, repetitive hypotensive blood pressure readings during the day yesterday, without tachycardia (patient has remained bradycardic). Hemoglobin stable. Upon further investigation, his right arm cuff reading is deemed inaccurate due to flaccid paralysis of right arm from his stroke. Upon moving the cuff to his left arm, his blood pressure readings were normotensive to hypertensive. He has remained vitally stable since last night. From now on, strongly recommended that his blood pressures are measured from his left arm only (avoided right arm due to inaccurate readings). Given hypertension, we considered resuming his home lisinopril. But review of records reveal that patient has been intermittently hyperkalemic even without lisinopril with elevated BUN still (without elevated creatinine). Thus, after discussion with the pharmacy, we are proceeding with amlodipine 5 mg instead of lisinopril 5. Re-initiation of lisinopril can be re-evaluated in the outpatient setting (as lisinopril will have cardiovascular/renal benefitswith patient's comorbidities) Given clinical stability now, we will sign off today. SUMMARY OF RECOMMENDATIONS (including who will place which orders): Please see infectious disease recommendations from 01/15/2024 Infectious Disease had recommended use of vancomycin and cefazolin for 24 hours only, then transitioning to his home suppressive regimen of cefadroxil 500 mg b.i.d. (extend duration for 6 months - EOT 04/16/2024) Patient remains on ceFAZolin. Please consider transitioning to cefadroxil unless other reason for cefazoline. Please measure blood pressure from his left arm. Do NOT measure from his right arm, this will give inaccurate readings Initiating amlodipine 5 mg daily today. Patient can be discharged on this medication Holding off on home lisinopril iso hyperkalemia and hypotension during this hospital stay. Recommend that resuming lisinopril be re-evaluated in the outpatient setting DCS following patient for hyperglycemia in the setting of type 2 diabetes DVT PPX and rivaroxaban initiation per primary team Recommend ASPIRIN be continued given patient's multiple vascular comorbidities Recommend continued outpatient follow-up for his multifactorial anemia Perioperative pain management per primary team Monitor postoperative respiratory status in setting of MICHELET diagnosis without CPAP use Orho ID has been consulted regarding antibiotics given history of prosthetic joint infection, appreciate recommendations We will SIGN OFF MEDICATION MANAGEMENT: Home medications continued: Atorvastatin, cefadroxil, levetiracetam, pantoprazole, refresh eyedrops, Home medications held: lisinopril (Recommend outpatient follow up for re- initiation), insulin NPH, rivaroxaban, aspirin Medication started: amLODIPine 5 mg Thank you for the opportunity to care for this patient. Medicine Consults will sign off. Please page the [facility] Medicine Consult Team 2 pager [phone] with any questions or concerns. The above plan of care was discussed with Dr. Narvaez. I personally spent a total of 25 minutes providing and coordinating care today. Rubin Zavala M.D. Internal Medicine, PGY 3 CTOR OF SUSTAINABILITY PROGRAMS CTOR OF SUSTAINABILITY PROGRAMS CTOR OF SUSTAINABILITY PROGRAMS * Whitley Rodrigues M.D. - 01/18/2024 7:51 AM CST Orthopedic Trauma Surgery Daily Progress Note Orthopedic Service: [facility] Hospital Admission Day: 01/15/2024 Surgery Information This Encounter Past Procedures (01/18/2023 to Today) Date Procedures Providers Loc / Dept 01/16/2024 SURGICAL MANAGEMENT PERIPROSTHETIC FEMUR FRACTURE. Soo, Eagle Buckley Michael W, M.D.Schaefer, Jacob J, M.D.Rudisill, Samuel S, M.D. RST ROMB OR SUBJECTIVE Mr. Lester is doing well. VSS, No acute events noted overnight. Pain remains well controlled. Denies chest pain, shortness of breath, nausea or vomiting. Given his allergy to cefazolin, we are trending alk-phos. From an antibiotic standpoint, he will receive vancomycin for 24 hours. He will stay on cefazolin until his drains come out. He will then transition to cefadroxil 500 mg oral twice daily for 3 months. AM Hgb 8.8. HVAC 1: 80/140 HVAC 2: 0/65 iVac: 0 cc OBJECTIVE Vitals Temperature: [36.4 ??C-36.7 ??C] 36.4 ??C Heart Rate: [57] 57 Resp Rate: [16-18] 16 Blood Pressure: (81-148)/(47-76) 148/76 SpO2: [96 %-99 %] 97 % Pulse Rate: [49-61] 49 I/O last 3 completed shifts: In: 1837.5 Out: 980 [Urine:775; Drains:205] Output by Drain (mL) 01/16/24 0701 - 01/16/24 1900 01/16/24 190 - 01/17/24 0700 01/17/24 07 - 01/17/24 1900 01/17/24 190 - 01/18/24 0700 01/18/24 0701 - 01/18/24 0751 Closed/Suction Drain 1 Right Thigh Accordion 10 Fr. 3.2 mm 158 30 60 80 Closed/Suction Drain Right Thigh Accordion 10 Fr. 3.2 mm 59 30 65 0 Exam - General: Alert and oriented, not in acute distress, follows commands. - MSK - Right Lower Extremity: Hip wrap in place, iVac holding suction. Calf is soft and non-tender. Able to actively dorsiflex and plantarflex at the ankle; able to actively flex and extend through the great toe and lesser digits. Active PF/DF ROM is limited compared to the contralateral side but he states this is chronic. Sensation grossly intact to light touch along the tibial, sural, saphenous, superficial peroneal, and deep peroneal nerve distributions. Foot warm and well-perfused. Labs Lab Results Component Value Date HGB 8.8 (L) 01/18/2024 WBC 15.3 (H) 01/18/2024 PLT 243 01/18/2024 CREATININE 1.04 01/18/2024 NA 137 01/18/2024 INR 1.6 01/15/2024 Lab Results Component Value Date NA 137 01/18/2024 CL 103 01/18/2024 CREATININE 1.04 01/18/2024 EGFR 83 01/18/2024 BUN 35 (H) 01/18/2024 ANIONGAP 8 01/18/2024 GLUCOSE 104 01/18/2024 CALCIUM 9.0 01/18/2024 Imaging DX Femur Right 2 Views Result Date: 01/16/2024 Impression: Metallic plate and multiscrew fixation of the periprosthetic femoral fracture. No grosshardware failure. Drains. ASSESSMENT / PLAN Impression & Report #1 Apnea Sleep Obstructive #2 Hyperlipidemia #3 Hypertension Essential Primary #4 Peripheral Arterial Disease ([facility]) #5 Diabetes Mellitus Type 2 Ulcer Foot ([facility]) #6 Stenosis Carotid Artery Right #7 Transient Ischemic Attack #8 Occlusion Carotid Artery Left #9 Stroke ([facility]) #10 Seizure ([facility]) #11 Stroke Cerebrovascular Accident Personal History #12 Fracture Femur Shaft Closed Initial Right ([facility]) # Status post surgical management of right periprosthetic femur fracture on 01/16/[address] Vann Overall the patient is doing well. Vascular medicine that has consulted and recommending Lovenox prophylaxis. Nutrition has also been consulted. Plan today will be to work with physical therapy. He will hopefully be able to transition back to his short-term care facility early next week. PT/OT: TTWB RLE x 12 weeks. Then partial progressive thereafter. - Diet: Advance diet as tolerated - Antibiotics: Periop vancomycin complete, Ancef scheduled q8 hours while drains remain in place. - Multimodal pain control - DVT Prophylaxis: Recommend Heme consult for prophylaxis given risks of bleeding/clotting (CVA x 2, GI bleed). Appreciate work-up for anemia as well. - Dressing: Transition to Prevena wound vac upon discharge x 7 days. - Drains x 2: Remove when < 20cc/shift x 3 or < 60cc/24 hours. - Recommend inpatient Nutrition consult and Panorex of the teeth. - Outpatient Endocrine referral for bone health optimization. - Follow-Up: Return to Cast Room 1 week upon discharge for Prevena removal. Maintain sutures x 3-4 weeks. Repeat XRs R Femur at 6 weeks and 12 weeks. Begin partial progressive WB with a walker if radiographs are stable. Should the construct fail prior to union, recommend consideration for a total femur. From 6am-6pm Friday-Friday, please contact [facility] at [phone] with any questions regarding this patient. If overnight [phone] or any time on weekends, please contact the Orthopedic Surgery house resident seasoner hand at [phone]. CTOR OF SUSTAINABILITY PROGRAMS * Octavia Oliva M.S., O.T. - 01/17/2024 2:28 PM CST Occupational Therapy consult was received and chart review was completed. Patient is unable to participate in therapy interventions at this time due to medical status (low postsurgical Hgb with plan for transfusion). The patient presented as somnolent during therapy attempt this afternoon. Occupational Therapy to follow-up tomorrow 01/17 as able and appropriate for OT and PT evaluation. Time spent with patient: 3 minutes Octavia Oliva M.S., O.T. CTOR OF SUSTAINABILITY PROGRAMS * Robi Lord P.T., D.P.T. - 01/17/2024 12:52 PM CST Physical Therapy consult was received and chart review was completed. Estevan Lester is unable to participate in therapy interventions at this time due to medical status (low postsurgical Hgb with plan for transfusion). The patient was also very somnolent during therapy attempt this afternoon. Physical therapy team will revisit with the patient again tomorrow when he is likely to be more desiree ropriate for physical therapy and occupational therapy evaluation. Time spent with patient: 3 minutes Robi Lord P.T., D.P.T. CTOR OF SUSTAINABILITY PROGRAMS * Daljit Zavala M.D. - 01/17/2024 12:12 PM CST Medicine Consult Progress Note SUBJECTIVE Interval Events: - NAEON - patient seen this morning, in mild acute distress due to RLE pain. Denies any other symptoms I have reviewed the current medication list. OBJECTIVE VITAL SIGNS Temperature: [36.4 ??C-37.3 ??C] 36.4 ??C Heart Rate: [57-86] 57 Resp Rate: [8-21] 16 Blood Pressure: (87-122)/(50-90) 87/59 Arterial Line BP: (125-167)/(60-78) 128/62 SpO2: [89 %-99 %] 98 % Flow Rate (L/min): [1 L/min-2 L/min] 1 L/min Pulse Rate: [51-85] 52 Body mass index is 29.85 kg/m??. Intake/Output Last 24 Hours: Intake/Output Summary (Last 24 hours) at 01/17/2024 1212 Last data filed at 01/17/2024 1100 Gross per 24 hour Intake 3006.44 ml Output 957 ml Net 2049.44 ml PHYSICAL EXAMINATION General: Alert, well appearing male in mild acute distress d/t pain Eyes: Clear, non-injected, anicteric conjunctiva. CV: regular rate and rhythm without murmurs/rubs/gallops Pulm: nonlabored respirations, clear to auscultation bilaterally anteriorly Abdomen: soft, mild tenderness to palpation to RUQ Extremities: Warm and well-perfused UE and LE. Skin: no obvious lesions or rashes on exposed skin Neuro: Clear speech. Right sided weakness (known deficit, not new) Psych: Appropriate affect. DIAGNOSTICS I have independently reviewed labs and diagnostics. ASSESSMENT / PLAN Mr. Lester is hospitalized on [facility] Orthopedic Trauma Surgery 2S - Sems for evaluation and management of Fracture Femur Shaft Closed Initial Right (HCC) and is status post Surgery Information This Encounter Past Procedures (01/17/2023 to Today) Date Procedures Providers Loc / Dept 01/16/2024 SURGICAL MANAGEMENT PERIPROSTHETIC FEMUR FRACTURE. Ester Vann M.D.Seward, Michael W, M.D.Schaefer, Jacob J, M.D.Rudisill, Samuel S, M.D. [facility] ROMB OR Medicine Consult service was consulted for evaluation/recommendations of TALYA and FRANK. 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) #Peripheral arterial disease #Bilateral ICA stenosis status post angioplasty of the right ICA (07/2022) complicated by restenosis status post drug coated angioplasty (03/2023) #Left MCA infarct in total occlusion of the left ICA status post thrombectomy and stenting of the left ICA (05/2023) #MICHELET no current CPAP #Type 2 diabetes on insulin #Anemia, suspected secondary to blood loss #CVA involving left MCA around time of surgery in June 07, 2023 with residual expressive aphasia and right-sided hemiparesis #Minor seizure activity noted on EEG performed in 05/2023 following stroke for which levetiracetam was prescribed #Oralia-Corado tear status post EGD (10/2023) #Hematochezia status post colonoscopy (11/2023) showing ulceration near splenic flexure with plan for repeat in 3 months # 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 Lester is a 59 y.o. male referred for a preoperative medical evaluation prior to surgical management of right periprosthetic femur fracture, which patient underwent on 01/16/2024. Their presentation comes in the context of a past history as noted above. Patient is doing well after surgery. He has been intermittently hypotensive overnight, without tachycardia (patient is actually bradycardic). Most recent BP check in the room was 90s/60s (MAP 70s). Given right sided residual deficit, I wonder about the accuracy of the cuff measurement. There still may be a component of blood loss, as patient's Hgb has trended down. We will transfuse 1 additional unit of PRBC for goal Hgb >8.0 iso orthopedic surgery. Low concern for sepsis or PE at this time.Recommend close monitoring of vitals. SUMMARY OF RECOMMENDATIONS (including who will place which orders): 1 unit PRBC transfusion Post-transfusion H&H check at 3PM Transfusion threshold < 8 in setting of orthopedic surgery Mild hyperkalemia of K 5.7 this morning Lokelma 5 g one time dose given this morning Recheck potassium at 3PM Hold off on home lisinopril iso hyperkalemia and hypotension DCS consulted, appreciate recommendations DVT PPX and rivaroxaban initiation per primary team Aspirin can be continued if deemed safe from a surgical perspective. If held, recommend prompt reinitiation following surgery. Perioperative pain management per primary team Monitor postoperative respiratory status in setting of MICHELET diagnosis without CPAP use Orho ID has been consulted regarding antibiotics given history of prosthetic joint infection, appreciate recommendations We will continue to follow MEDICATION MANAGEMENT: Home medications continued: Atorvastatin, cefadroxil, levetiracetam, pantoprazole, refresh eyedrops, Home medications held: lisinopril, insulin NPH, rivaroxaban, aspirin Thank you for the opportunity to care for this patient. Medicine Consults will continue to follow. Please page the [facility] Medicine Consult Team 2 pager [phone] with any questions or concerns. The above plan of care was discussed with Dr. Narvaez. I personally spent a total of 25 minutes providing and coordinating care today. Rubin Zavala M.D. Internal Medicine, PGY 3 CTOR OF SUSTAINABILITY PROGRAMS * eTo Christopher, JUAN RAMON, C.N.P. - 01/17/2024 11:05 AM CST SUBJECTIVE HISTORY OF PRESENT ILLNESS LOS: 2 days DCS continues to follow this 59 y.o. male for blood glucose management admitted on 01/15/2024 for Fracture Femur Shaft Closed Initial Right (HCC) On 01/15/2024 he underwent SURGICAL MANAGEMENT PERIPROSTHETIC FEMUR FRACTURE PREADMISSION DIABETES THERAPY: NPH 8-0-4-0 with meals, last dose: 01/13 evening Patient is in no acute distress. Resting in bed. Reviewed hospital insulin regimen. Reviewed dismissal plan. Blood Glucose Results in Last 24 Hours: Recent Labs 01/17/24 0751 01/17/24 0608 01/17/24 0209 01/16/24201501/16/24 1745 01/16/24 1515 01/16/24 1317 01/16/24 1202 GLUCOSEPOC 169 H -- 232 H 213 H 210 H 189 H -- -- GLUCOSE -- 178 H -- -- -- -- 176 H 197 H Yesterday given NovoLog insulin 10 units for correction of hyperglycemia throughout the day. STEROIDS: None today. Noted that the patient received dexamethasone 4 mg yesterday. Current Diet Adult Diet Regular starting at 01/15 1620 OBJECTIVE VITAL SIGNS Temperature: 36.4 ??C Heart Rate: 57 Resp Rate: 16 Blood Pressure: 87/59 BP Location: Right arm;Upper Arterial Line BP: 128/62 SpO2: 98 % Flow Rate (L/min): 1 L/min Height: 181 cm Weight: 97.8 kg Body mass index is 29.85 kg/m??. DIAGNOSTICS Lab Results Component Value Date CREATININE 1.04 01/17/2024 Estimated Creatinine Clearance: 105.8 mL/min (by C-G formula based on SCr of 1.04 mg/dL). ASSESSMENT / PLAN #1 Diabetes mellitus, type 2, preadmission euglycemia, A1c 5.1% complicated by diabetic neuropathy #2 Hyperglycemia in the setting of steroids and surgical stress #3 Peripheral artery disease #4 History stroke INPATIENT PLAN: - Blood glucose monitoring: four times daily before meals and bedtime. - Glucose goal: 140-180 mg/dL - Basal: NPH insulin 4 units in the morning and in the evening. - Mealtime: 1 unit for every 15 grams of carbohydrates consumed with meals. - Correction scale: NovoLog moderate correction scale three times a day, modified bedtime correction scale. - DCS will evaluate and adjust insulin doses as indicated to achieve glycemic goal. ANTICIPATED DISMISSAL PLAN: Preadmission therapy pending any contraindications. Blood glucose frequency: twice daily Goal: 100-160 mg/dL, higher goal due to age and comorbidities Please page DCS within 24 hours prior to hospital dismissal for final dismissal recommendations. Discussed above plan with patient who is alert and oriented and in agreement. DCS Pager [phone] will continue to follow. Call primary service for diabetes concerns between [phone]. Primary service to contact DCS via hospital prototype machine operator for questions. CTOR OF SUSTAINABILITY PROGRAMS * Doug Narvaez M.D. - 01/17/2024 9:24 AM CST I saw and evaluated Mr. Estevan Lester on rounds today and agree with the findings and plan as documented in today's Medicine Consult resident note with the following comments: ASSESSMENT / PLAN #1 Status post surgical intervention for right periprosthetic femoral shaft fracture January 16, 2024#1#2 Postoperative anemia #3 Hypertension #4 CHF, EF 47% May 2023 #5 Peripheral artery disease #6 Hyperlipidemia #7 Bilateral ICA stenosis status post angioplasty right ICA July 2022 complicated by restenosis status post angioplasty March 2023 #8 Left MCA infarct with total occlusion left ICA status post thrombectomy and stenting left ICA May 2023 #9 MICHELET not currently on CPAP #10 DM 2, on insulin therapy #11 Anemia suspect secondary to anemia of chronic inflammation and blood loss #12 Minor seizure activity EEG May 2023 #13 Oralia-Corado tear status post EGD 10/2023 #14 Hematochezia status post colonoscopy 11/2023 demonstrating ulceration your splenic flexure withplan for repeat in 3 months #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 Lester has no new complaints this morning. Pain is reasonably well- controlled. Vital signs stable. Lungs are clear. Hemoglobin is decreased down to 7.6. Leukocytes elevated at 15.2. Creatinine slightly higher at 1.04. Potassium 5.7 up from 4.5 yesterday. This may be artifact. Continue with increasing activity, use of SCDs, incentive spirometer, encouragement of oral intake.We will continue to monitor volume status. Given vascular disease in Orthopedic surgery it be reasonable to set a transfusion threshold at 8 and provide a unit of packed red blood cells today. It would be reasonable to recheck potassium again today. If providing blood and potassium is truly elevated would need to address this further today. He likely has anemia of chronic inflammation in the setting of infected right total hip arthroplasty at baseline. He has had recent blood loss anemia likely contributing secondary to GI losses. Please refer to the Medicine Consult resident note dated today for additional details about our team's plan of care. CTOR OF SUSTAINABILITY PROGRAMS CTOR OF SUSTAINABILITY PROGRAMS * Rosalie Jean R.N., C.W.O.C.N. - 01/17/2024 7:09 AM CST [facility] Wound RN consulted to assess Estevan Lester skin alterations. Wound assessment, pain, andBraden score noted in the flowsheet. No images were taken during this patient assessment. History: Per provider note, the patient was admitted on 01/14 for surgical management of a right femur fracture. His past medical history includes HTN, HLD, HF, PAD, CVA, MICHELET, DM2, and anemia. Assessment: The patient was assessed in conjunction with his bedside nurse. His previous coccyx pressure injury is completely healed. He does have a superficial open blister on his right great toe and some superficial skin breakdown around his hip brace. Any areas of pressure from the brace should be padded with Mepilex or [place]. 01/17/24 0650 Wound 01/16/24 Friction Injury Hip Right;Lateral to Posterior Back with Medical Adhesive Related Skin Injury Date First Assessed/Time First Assessed: 01/16/24 0820 Primary Wound Type: Friction Injury Location: Hip Wound Location Orientation: Right;Lateral Wound Description (Comments): to Posterior Back withMedical Adhesive Related Skin Injury Pain Score 0 - none *Shape Irregular *Tunneling None *Signs of Infection None *Wound Bed Partial thickness;[place];Open Tissue Exposed None Odor None *Exudate Amount Small Drainage Description Serosanguineous Caroline-wound Assessment Fragile Treatments Cleansed *Primary Dressing Foam (Mepilex Lite) *Primary Dressing Frequency of Change Daily & PRN Changed by Unit based nurse Ongoing management Nursing;Patient/caregiver Wound 01/17/24 Blister Toe Great Anterior;Right (Unroofed) Date First Assessed/Time First Assessed: 01/17/24 0000 Present on Original Admission: Yes Primary Wound Type: Blister Location: Toe Great Wound Location Orientation: Anterior;Right Wound Description (Comments): (Unroofed) Pain Score 0 - none *Shape Irregular *Tunneling None *Signs of Infection None *Wound Bed Open;Partial thickness;[place];Yellow Tissue Exposed None Odor None *Exudate Amount Scant Drainage Description Serosanguineous Caroline-wound Assessment Fragile Treatments Cleansed Periwound Treatment Cleansed (Comment) *Primary Dressing Foam (Mepilex Lite) *Primary Dressing Frequency of Change Daily & PRN Primary Dressing Changed New Primary Dressing Status Clean;Dry;Intact Changed by Wound medical physicist Ongoing management Nursing Head to toe skin assessment completed and no other concerns. DRESSING RECOMMENDATIONS: #1 Friction Injury Hip Right;Lateral to Posterior Back with Medical Adhesive Related Skin Injury #2 Blister Toe Great Anterior;Right (Unroofed) -Cleanse the area with Normal Saline and 4x4 gauze. Pat dry. -Apply a Mepilex Lite. Lift dressing daily to assess skin and perform wound cares. -Change once daily and PRN. Recommended interventions for pressure redistribution and shear reduction: Offload heels on pillows at all times when in bed. Apply and utilize the LEAF monitoring system. Utilize the Samir Wedge to assist in patient positioning at 30 degrees. Ensure that the wedge is positioned so the arrows point up. Place a sheet in-between patient and wedge. Place along patient's back and thighs making sure the sacrum floats. Reposition at least every hour while in the chair. Apply a prophylactic sacral Mepilex?? border dressing to cover the coccyx/sacral area. Ensure the dressing is in full contact with the skin to prevent moisture- related skin breakdown. Lift twice daily to assess when used for prevention. Change every 3 days and PRN. Utilize the Advanced Wave Low Air Loss and Immersion mattress. Utilize a static air cushion when up to the chair. Recommended interventions for moisture control: InterDry?? Ag placed between folds. Allow at least 2 inches of fabric exposed to air on at least one side of the skin fold for moisture evaporation. Can be used up to 5 days unless soiled with stool or urine. Do not rinse with water. Utilize the breathable incontinence underpads while in bed. Adult briefs should only be worn while ambulating or in the chair. Utilize external male catheter Cleanse with foaming cleanser or wipes after each incontinence episode and for routine hygiene cares. Utilize the Advanced Wave low air loss and immersion mattress. Consult recommendations: NA Education: Discussed the plan of care with the patient and nursing. They agree to the plan. The WOC RN will sign-off. Please place a wound care consult for any new concerns. Electronically signed by: Rosalie Jean R.N., Christina 01/17/24 7:16 AM DIRECTOR OF SUSTAINABILITY PROGRAMS Page Me Weekend Pager is [phone] (available [phone]) CTOR OF SUSTAINABILITY PROGRAMS * Lul Soriano M.D. - 01/17/2024 4:10 AM CST Orthopedic Trauma Surgery Daily Progress Note Orthopedic Service: [facility] Hospital Admission Day: 01/15/2024 Surgery Information This Encounter Past Procedures (01/17/2023 to Today) Date Procedures Providers Loc / Dept 01/16/2024 SURGICAL MANAGEMENT PERIPROSTHETIC FEMUR FRACTURE. Soo, Ester Malcolm M.D.Flako Loaiza M.D.Lul Soriano M.D.Gino Galeas M.D. RST ROMB OR SUBJECTIVE Mr. Lester is doing well. No acute events noted overnight. Pain remains well controlled. He is afebrile and mildly hypotensive overnight. Drain 1 with 158 cc, and drain to with 59 cc out yesterday during the day, no output yet documented overnight. No output in the wound VAC. Otherwise denying chest pain, fever, nausea or vomiting. Vascular medicine was consulted and recommended prophylactic Lovenox. Given his allergy to cefazolin, we are trending alk-phos. From an antibiotic standpoint, he will receive vancomycin for 24 hours. He will stay on cefazolin until his drains come out. He will then transition to cefadroxil 500 mg oral twice daily for 3 months. Labs are pending. Cultures are pending. OBJECTIVE Vitals Temperature: [36.3 ??C-37.3 ??C] 36.7 ??C Heart Rate: [73-86] 75 Resp Rate: [8-21] 15 Blood Pressure: (90-122)/(50-90) 92/67 Arterial Line BP: (125-167)/(60-78) 128/62 SpO2: [89 %-99 %] 97 % Flow Rate (L/min): [1 L/min-2 L/min] 1 L/min Pulse Rate: [51-85] 59 I/O last 3 completed shifts: In: 5226.4 Out: 1517 [Urine:500; Drains:217; Blood:800] Output by Drain (mL) 01/15/24 0701 - 01/15/24 1900 01/15/24 190 - 01/16/24 0700 01/16/24 0701 - 01/16/24 1900 01/16/24 190 - 01/17/24 0416 Closed/Suction Drain 1 Right Thigh Accordion 10 Fr. 3.2 mm 158 Closed/Suction Drain Right Thigh Accordion 10 Fr. 3.2 mm 59 Exam - General: Alert and oriented, not in acute distress, follows commands. - MSK - Right Lower Extremity: Hip wrap in place, Prevena holding suction.. Calf is soft and non-tender. Able to actively dorsiflex and plantarflex at the ankle; able to actively flex and extend through the great toe and lesser digits, though less in the contralateral left side. Sensation grossly intact to light touch along the tibial, sural, saphenous, superficial peroneal, and deep peroneal nerv e distributions. Foot warm and well-perfused. Labs Lab Results Component Value Date HGB 8.5 (L) 01/15/2024 WBC 12.0 (H) 01/15/2024 PLT 316 01/15/2024 CREATININE 0.91 01/15/2024 NA 135 01/16/2024 INR 1.6 01/15/2024 Lab Results Component Value Date NA 135 01/16/2024 CL 99 01/15/2024 CREATININE 0.91 01/15/2024 EGFR >90 01/15/2024 BUN 30 (H) 01/15/2024 ANIONGAP 11 01/15/2024 GLUCOSE 176 (H) 01/16/2024 CALCIUM 8.3 (L) 01/15/2024 Imaging DX Femur Right 2 Views Result Date: 01/16/2024 Impression: Metallic plate and multiscrew fixation of the periprosthetic femoral fracture. No grosshardware failure. Drains. ASSESSMENT / PLAN Impression & Report #1 Apnea Sleep Obstructive #2 Hyperlipidemia #3 Hypertension Essential Primary #4 Peripheral Arterial Disease ([facility]) #5 Diabetes Mellitus Type 2 Ulcer Foot ([facility]) #6 Stenosis Carotid Artery Right #7 Transient Ischemic Attack #8 Occlusion Carotid Artery Left #9 Stroke ([facility]) #10 Seizure ([facility]) #11 Stroke Cerebrovascular Accident Personal History #12 Fracture Femur Shaft Closed Initial Right ([facility]) # Status post surgical management of right periprosthetic femur fracture on 01/16/[address] Vann Overall the patient is doing well. Vascular medicine that has consulted and recommending Lovenox prophylaxis. Nutrition has also been consulted. Plan today will be to work with physical therapy. He will hopefully be able to transition back to his short-term care facility early next week. We will also follow up on labs later today. PT/OT: TTWB RLE x 12 weeks. Then partial progressive thereafter. - Diet: Advance diet as tolerated - Antibiotics: Vancomycin for 24 hours, Ancef scheduled q8 hours while drains remain in place. - Multimodal pain control - DVT Prophylaxis: Recommend Heme consult for prophylaxis given risks of bleeding/clotting (CVA x 2, GI bleed). Appreciate work-up for anemia as well. - Dressing: Transition to Prevena wound vac upon discharge x 7 days. - Drains x 2: Remove when < 20cc/shift x 3 or < 60cc/24 hours. - Recommend inpatient Nutrition consult and Panorex of the teeth. - Outpatient Endocrine referral for bone health optimization. - Follow-Up: Return to Cast Room 1 week upon discharge for Prevena removal. Maintain sutures x 3-4 weeks. Repeat XRs R Femur at 6 weeks and 12 weeks. Begin partial progressive WB with a walker if radiographs are stable. Should the construct fail prior to union, recommend consideration for a total femur. From 6am-6pm Friday-Friday, please contact [facility] at [phone] with any questions regarding this patient. If overnight [phone] or any time on weekends, please contact the Orthopedic Surgery house resident seasoner hand at [phone]. CTOR OF SUSTAINABILITY PROGRAMS CTOR OF SUSTAINABILITY PROGRAMS CTOR OF SUSTAINABILITY PROGRAMS CTOR OF SUSTAINABILITY PROGRAMS * Doug Narvaez M.D. - 01/16/2024 4:58 PM CST I saw and evaluated Mr. Estevan Lester on rounds today and agree with the findings and plan as documented in today's Medicine Consult resident note with the following comments: ASSESSMENT / PLAN #1 Right periprosthetic femoral shaft fracture #2 TALYA #3 Hypertension #4 CHF, EF 47% May 2023 #5 Peripheral artery disease #6 Hyperlipidemia #7 Bilateral ICA stenosis status post angioplasty right ICA July 2022 complicated by restenosis status post angioplasty March 2023 #8 Left MCA infarct with total occlusion left ICA status post thrombectomy and stenting left ICA May 2023 #9 MICHELET not currently on CPAP #10 DM 2, on insulin therapy #11 Anemia suspect secondary to blood loss #12 Minor seizure activity EEG May 2023 #13 Oralia-Corado tear status post EGD 10/2023 #14 Hematochezia status post colonoscopy 11/2023 demonstrating ulceration your splenic flexure withplan for repeat in 3 months #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 Lester was able to undergo surgical correction of the femoral shaft fracture. He is drowsy postoperatively without complaint. Vital signs stable oxygenating well on 1 L O2 per nasal cannula. Lungs are clear. Heart regular rate and rhythm. No lower extremity edema. Most recent hemoglobin 8.2this afternoon. Continue support, wean oxygen, continue with SCDs. I recommended that he start to use incentive spirometer when awake enough. We will continue to monitor volume status, electrolytes, renal status. Note that he has had GI blood loss and chronic anemia. Family wondered if there were other causes for his anemia besides blood loss. I do see that he has had a mild normocytic anemia locally with normal RDW, platelets and WBC. His iron has actually been in the normal range with lower TIBC. His ferritin was 745 7 months ago dropping diff 302 1 month ago down to 192 almost 2 weeks ago. His reticuloc yte count is in the normal range at 68.8. I would expect this to be a bit higher. He had a peripheral blood smear November 29, 2023 which showed no diagnostic abnormalities. This is most consistent with a mixed picture. Would suggest that he has a picture most consistent with anemia of chronic inflam mation in the context of a chronically infected right total hip arthroplasty. This is likely exacerbated now by GI blood loss in the setting of Oralia-Corado tear as well as splenic flexure ulceration. I do not expect that Hematology would recommend bone marrow biopsy in this setting but rather management of the underlying issues with attention to surgical correction of his fracture, follow- up onMallory-Corado tear and bowel ulceration. I would also recommend that he continue with chronic suppression of the right ISRRAEL infection. Please refer to the Medicine Consult resident note dated today for additional details about our team's plan of care. CTOR OF SUSTAINABILITY PROGRAMS * Estevan Foss M.D. - 01/16/2024 7:28 AM CST Medicine Consult Progress Note SUBJECTIVE Patient in OR this morning. I have reviewed the current medication list. OBJECTIVE VITAL SIGNS Temperature: [36.3 ??C-37 ??C] 36.3 ??C Heart Rate: [73] 73 Resp Rate: [14-18] 16 Blood Pressure: (111-169)/(54-78) 111/54 SpO2: [93 %-98 %] 98 % Pulse Rate: [60-76] 68 Body mass index is 29.85 kg/m??. Intake/Output Last 24 Hours: Intake/Output Summary (Last 24 hours) at 01/16/2024 0728 Last data filed at 01/15/2024 1557 Gross per 24 hour Intake 330 ml Output -- Net 330 ml PHYSICAL EXAMINATION No exam today as patient was in LR. DIAGNOSTICS I have independently reviewed labs and diagnostics. ASSESSMENT / PLAN Mr. Lester is hospitalized on [facility] Orthopedic Trauma Surgery 2S - [facility] for evaluation and management of Fracture Femur Shaft Closed Initial Right (HCC) and is status post Surgery Information This Encounter Past and Present Procedures (01/16/2023 to Today) Date Procedures Providers Loc / Dept 01/16/2024 SURGICAL MANAGEMENT PERIPROSTHETIC FEMUR FRACTURE, PROCEED INDICATED. Dante Vann M.D. T [facility] OR Medicine Consult service was consulted for evaluation/recommendations of TALYA and FRANK. 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) #Peripheral arterial disease #Bilateral ICA stenosis status post angioplasty of the right ICA (07/2022) complicated by restenosis status post drug coated angioplasty (03/2023) #Left MCA infarct in total occlusion of the left ICA status post thrombectomy and stenting of the left ICA (05/2023) #MICHELET no current CPAP #Type 2 diabetes on insulin #Anemia, suspected secondary to blood loss #CVA involving left MCA around time of surgery in June 07, 2023 with residual expressive aphasia and right-sided hemiparesis #Minor seizure activity noted on EEG performed in 05/2023 following stroke for which levetiracetam was prescribed #Oralia-Corado tear status post EGD (10/2023) #Hematochezia status post colonoscopy (11/2023) showing ulceration near splenic flexure with plan for repeat in 3 months # 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 Lester is a 59 y.o. male referred for a preoperative medical evaluation prior to surgical management of right periprosthetic femur fracture, scheduled 01/16/2024. Their presentation comes in the context of a past history as noted above. TALYA completed on 01/14. Patient and OR this morning. Received 1 unit packed red blood cells yesterday with improvement in hemoglobin 8.5. No changes made to recommendations this morning. We will continue to follow perioperatively. SUMMARY OF RECOMMENDATIONS (including who will place which orders): In OR this morning. HOLD insulin NPH Moderate correction scale insulin aspart HOLD lisinopril on day of surgery Last dose DVT prophylactic rivaroxaban on evening of 01/13 HOLD rivaroxaban, additional DVT PPX per primary team Aspirin can be continued if deemed safe from a surgical perspective. If held, recommend prompt reinitiation following surgery. Importantly, as he has been taking this outside the hospital, effects will last approximately 7 days given irreversible inhibition of CROWELL 2. I note this was held around last surgery on 01/05. Perioperative pain management per primary team Transfusion threshold < 8 in setting of orthopedic surgery, blood already ordered per primary team Monitor postoperative respiratory status in setting of MICHELET diagnosis without CPAP use Monitor perioperative fluid status Orho ID has been consulted regarding antibiotics given history of prosthetic joint infection, appreciate recommendations We will follow perioperatively MEDICATION MANAGEMENT: Home medications continued: Atorvastatin, cefadroxil, levetiracetam, pantoprazole, refresh eyedrops, Home medications held: lisinopril on day of surgery, insulin NPH, rivaroxaban, aspirin Thank you for the opportunity to care for this patient. Medicine Consults will continue to follow. Please page the [facility] Medicine Consult Team 2 pager [phone] with any questions or concerns. The above plan of care was discussed with Dr. Narvaez. I personally spent a total of 25 minutes providing and coordinating care today. Estevan Foss M.D. Internal Medicine, PGY 3 CTOR OF SUSTAINABILITY PROGRAMS * Sadie Mitchell, R.Ph. - 01/15/2024 3:32 PM CST Pharmacist Progress Note Reason for admission: right periprosthetic femur fracture from a fall out of bed on 01/15/24 PMH: HTN, HLD, HFmrEF (LVEF 47% 05/2023), PAD, Bilateral ICA stenosis s/p angioplasty of the right ICA (07/2022) complicated by restenosis s/p drug coated angioplasty (03/2023), Left MCA infarct in total occlusion of the left ICA s/p thrombectomy and stenting of the left ICA (05/2023), MICHELET, T2 DM, Anemia, Oralia-Corado tear s/p EGD (10/2023), reimplantation of the right total hip arthroplasty on 01/06/24 OBJECTIVE Home medications: Held: aspirin, rivaroxaban, NPH, lisinopril, refresh plus, HYDROmorphone oral, lisinopril, nystatincream/powder Changed: insulin Patient own medications: none Prophylaxis: no chemical DVT prophylaxis(heparin 5000 units sq x once given this AM), PPI ASSESSMENT / PLAN right periprosthetic femur fracture OR on 01/16/24 Holding home rivaroxaban(last dose was in PM on 01/14/24) Acetaminophen 1 g qid, HYDROmorphone 0.2 mg IV Q2h prn, oxyCODONE 5-10 mg q4h prn for pain control BR+, LBM unknown, close follow up Hgb 7.4, close follow up 2. T2 DM: Holding NPH On insulins aspart sliding scale 3. Left MCA infarct: Holding home aspirin Continue levETIRAcetam 750 mg BID 4. HTN/HDL On home atorvastatin 20 mg q hs Holding lisinopril 5. For open surgical repair, ID recommends; Resume cefadroxil 500 mg bid for now perioperative prophylaxis: cefazolin 2 g IV q8h + vancomycin 15 mg/kg IV q12h x 24 hrs Then resume cefadroxil 500 mg bid for 3 months(EOT 04/16/2024) Changes to medications anticipated at discharge:TBD Sadie Mitchell, Aleksandr.Ph. CTOR OF SUSTAINABILITY PROGRAMS * Sadie Mitchell, R.Ph. - 01/15/2024 9:31 AM CST Images from the original note were not included. Admission Medication History Note Adherence issues: Unable to assess Medication list source: Care Everywhere or chart review and Pharmacy or dispense records Medication related information: per RN, medication dispense history per Orthopedic Surgery Discharge Summary from 01/09/2024 and per [facility] Medication review report via phone with facility RN Prior to Admission Medications Med List Status: RN Complete Set By: Belia Valles, RBelkisN. at 01/15/2024 6:00 AM Taking? Last Dose Informant Start Date End Date LT acetaminophen (TYLENOL) 500 mg tablet 01/14/2024 at Bedtime -- 03/20/23 -- Take 2 tablets (1,000 [...] mg total) daily. atorvastatin (LIPITOR) 20 mg tablet 01/14/2024 at Evening -- 06/25/23 -- Take 1 tablet (20 mg total) by mouth at bedtime. carboxymethylcellulose (REFRESH PLUS) 0.5 % ophthalmic solution 01/14/2024 at Evening -- 06/25/23 -- Administer 2 drops into both eyes 4 (four) times a day as needed for dry eyes. cefadroxil (Duricef) 500 mg capsule 01/14/2024 at Evening -- 01/09/24 01/21/24 Take 1 capsule (500 mg total) by mouth 2 (two) times a day for 12 days Indications: Blood stream infection, Bone and/or joint infection. HYDROmorphone (Dilaudid) 2 mg tablet 01/14/2024 at Evening -- 01/09/24 -- Take 1 tablet (2 mg total) by mouth every 4 (four) hours as needed for severe pain or score 7-10 of10 Indication: Prolonged Acute Pain/Traumatic Injury. Notes: Approval for substitution of equivalent dose/quantity of any available hydromorphone dosage forms, including compounds during drug shortage insulin NPH (NovoLIN N FlexPen) 100 unit/mL (3 mL) pen Past Week -- 12/02/23 -- Inject 4-8 Units under the skin 2 (two) times a day with meals. takes 8 units in the AM and 4 unitsin the afternoon lancets 01/14/2024 at Evening Self 07/29/22 -- 1 each daily. levETIRAcetam (Keppra) 100 mg/mL solution 01/14/2024 at Morning -- 06/25/23 -- Take 7.5 mL (750 mg total) by mouth 2 (two) times a day. lisinopriL 5 mg tablet 01/14/2024 at Morning -- 09/03/23 -- Take 5 mg by mouth daily. nystatin (Mycostatin) 100,000 unit/gram cream 01/14/2024 at Evening -- 12/25/23 -- Apply 1 Application topically 2 (two) times a day. nystatin (Nystop) 100,000 unit/gram powder 01/14/2024 at Bedtime -- -- -- Apply 1 Application topically 2 (two) times a day. pantoprazole (Protonix) 40 mg EC tablet 01/14/2024 at Evening -- -- -- Take 40 mg by mouth daily before morning meal. pen needle, diabetic (BD Ultra-Fine Short Pen Needle) 31 gauge x 5/16 needle -- -- 12/31/22 -- 1 Injection daily. Notes: ICD-10:[E11.65] Length of Need:Lifetime, Insulin Dependent: Yes Last Office Visit:11/29/22 Last A1c 11.4 on 10/09/22 Pharmacy may substitute brand/adjust qty per pt preference or insurance coverage polyethylene glycol (Miralax) 17 gram powder packet 01/14/2024 at Bedtime -- -- -- Take 17 g by mouth daily. Dissolve each 17 g dose in 240 mLs (8 ounces) of beverage. rivaroxaban (Xarelto) 10 mg tablet 01/14/2024 at Bedtime -- 08/28/23 08/27/24 Take 1 tablet (10 mg total) by mouth daily. Patient taking differently: Take 10 mg by mouth daily. On hold CTOR OF SUSTAINABILITY PROGRAMS documented in this encounter Consult Notes * Robi Lord PBelkisT., D.P.T. - 01/18/2024 11:38 AM CST Physical Therapy Inpatient Evaluation/Treatment SUBJECTIVE Patient's Name: Estevan Christopher Lester Referring/Attending Provider: Len Hinojosa M.D. Medical Diagnosis: Fracture Femur Shaft Closed Initial Right (HCC) [S72.301A] Reason for Referral: PT Evaluate and Treat PT - Ortho Onset Date: 01/15/24 Payor: [facility] / Plan: [facility] C[facility] / Product Type: Medicaid HMO / PERTINENT MEDICAL / SURGICAL HISTORY: Patient Active Problem List Diagnosis Apnea Sleep Obstructive Polyp Colon Hyperlipidemia Hypertension Essential Primary Peripheral Arterial Disease (HCC) Diabetes Mellitus Type 2 Ulcer Foot (HCC) Stenosis Carotid Artery Right Screening Cancer Colon Infection Total Hip Arthroplasty Subsequent Right Caries Dental Infection Total Hip Arthroplasty Initial Right (HCC) Change Mental Status Hypotension Transient Ischemic Attack Occlusion Carotid Artery Left Stroke (HCC) Seizure (HCC) Hemorrhage Gastrointestinal Ulcer Colon Stroke Cerebrovascular Accident Personal History Aftercare Following Explantation Of Hip Joint Prosthesis Fracture Femur Shaft Closed Initial Right (HCC) Past Surgical History: Procedure Laterality Date ARTHROPLASTY - RESECTION HIP Right 05/23/2023 Procedure: ARTHROPLASTY RESECTION HIP.; Surgeon: Vel Vinson M.D., M.B.A.; Location: [facility] OR ARTHROPLASTY REVISION FEM+ACETAB HIP Right 01/06/2024 Procedure: ARTHROPLASTY REVISION FEMORAL PLUS ACETABULAR HIP.; Surgeon: Vel Vinson M.D., M.B.A.; Location: [facility] OR CAROTID ARTERY ANGIOPLASTY CLOSED REDUCTION OF DISLOCATION OF HIP 03/25/2009 CLOSED REDUCTION OF DISLOCATION OF HIP 03/06/2009 CLOSED REDUCTION RADIAL SHAFT FRACTURE W/ MANIPULATION 12/31/2003 FLAP PEDICLE ROTATIONAL LOWER EXTREMITY Right 05/23/2023 Procedure: FLAP PEDICLE ROTATIONAL LOWER EXTREMITY, possible VRAM falp from right abdomen, possiblelocal tissue rearrangement, possible wound vac placement, proceed as indicated.; Surgeon: Mike Cheng M.D.; Location: [facility] JOINT REPLACEMENT OTHER CONVERTED SHX (SEE COMMENT) 01/17/2004 >Wound examination. Suture removal. OTHER CONVERTED SHX (SEE COMMENT) 02/02/2004 >Cast removal. X-rays of the right radius. OTHER CONVERTED SHX (SEE COMMENT) 01/02/2004 >Open reduction and internal fixation. OTHER CONVERTED SHX (SEE COMMENT) 2004 >Suturing maxillary vestibular laceration and left upper lip laceration. OTHER CONVERTED SHX (SEE COMMENT) 01/06/2004 >Removal of Mohit wire, splint application. OTHER CONVERTED SHX (SEE COMMENT) 02/03/2009 >1. Removal of pelvic reconstruction plate. 2. Bone grafting of the acetabulum. OTHER CONVERTED SHX (SEE COMMENT) 01/04/2004 >Wound examination. REMOVAL HARDWARE PELVIS Right 05/23/2023 Procedure: REMOVAL HARDWARE PELVIS.; Surgeon: Vel Vinson M.D., M.B.A.; Location: [facility] OR History of Present Illness: Right ISRRAEL revision Prior Function/Occupational Profile Lives With: Other (Comment) (SNF resident) Receives Help From: Facility staff, Family ADL Assistance: Required assistance IADL/Homemaking Assistance: Required assistance Driving: Does not drive Prior Mobility/Functional Transfers Level of [place]: Needs assistance Gait Devices/Wheelchair Used: Manual wheelchair, Power wheelchair, Front wheeled walker Gait Devices/Wheelchair Used Comments: Utilize a front wheeled walker to pivot to and from wheelchair Home Equipment Home Adaptive Equipment: None Gait Devices Owned: Front-wheeled walker Wheelchair : Manual, Power Bathroom Equipment: Shower chair with back, Grab bars in shower, Grab bars around toilet Home Living Type of Home: long-term facility Home Layout: Able to live on main level with bedroom/bathroom Home Access: Ramped entrance Bathroom Shower/Tub: Walk-in shower Walk-in shower location: Main floor Bathroom Toilet: Comfort height Bathroom Accessibility: Yes How Accessible: Accessible via wheelchair Family/Caregiver Present: No Patient/Caregiver Goals: None stated. Patient Comments: Patient rates his pain 6/10 while at rest. Precautions Weight Bearing Status: Toe-touch weight-bearing of right lower extremity Other Precautions: Hip precautions, abduction brace Fall Risk (65 and older) Fall in the last 12 months: Yes Did you have an injury with the fall?: Yes Are you fearful of falling?: Yes Fall Risk Comments: Balance/strength and cognitive impairments. Orthopedic/weight bearing restrictions. OBJECTIVE Estevan's NOHARM modalities were used during their therapy session. Cognition Orientation: Other (Comment) (Oriented to self. Difficult to assess.) General ROM / Strength Screening ROM - Upper Extremity Screen: Impaired right ROM - Lower Extremity Screen: Impaired right Strength - Upper Extremity Screen: Impaired right Strength - Lower Extremity Screen: Impaired right Bed Mobility - Supine to Sit # of Assistants: 2 Level of Assistance: Moderate assistance, Maximal assistance Device: Bed rail, Head of bed elevated Cuing: Verbal, Tactile Comments: R LE and torso support. Sit to Stand Transfers # of Assistants: 2 Transfer Surface: Bed, Chair Transfer Equipment: Gait belt, Front wheeled walker, Sit to stand machine Level of Assistance: Maximal assistance Assessment/Delivery: Assessed, Instructed, Educated, Therapist assisted Comments: elevated bed height with walker x 1 . Aleksandra Stedy x3 Stand to Sit Transfers # of Assistants: 2 Transfer Surface: Bed, Chair Transfer Equipment: Gait belt, Front wheeled walker, Sit to stand machine Level of Assistance: Moderate assistance Assessment/Delivery: Assessed, Therapist assisted Comments: cues for controlled descent. Co-treatment with: Occupational Therapy Patient's nurse was contacted and patient's status was discussed, Discussed patient's care with OT Patient was left in bedside chair with chair alarm on at end of session with call light in reach, all needs met and questions answered. Outcome Measures -[facility] Inpatient Short Form: -[facility] Basic Mobility (V.2) How much help from another person do you currently need???If the patient hasn't done an activity recently, how much help from another person do you think he/she would needif he/she tried? 1. Turning from your back to your side while in a flat bed without using bedrails?: A Lot 2. Moving from lying on your back to sitting on the side of a flat bed without using bedrails?: A Lot 3. Moving to and from a bed to a chair (including a wheelchair)?: Total 4. Standing up from a chair using your arms (e.g., wheelchair, or bedside chair)?: A Lot 5. To walk in hospital room?: Total 6. Climbing 3-5 steps with a railing?: Total AM-[facility] Basic Mobility (V.2) Raw Score: 9 -[facility] Basic Mobility (V.2) Standardized Score: 25.8 Interpretation: Clinicians answer the -[facility] Inpatient Short Form based on observed patient activity and/or clinical judgement (ie. patient can be scored without physically performing each activity) Based on scoring guidelines using the raw score value: Those going to home had an average score at or above 18 Those going to facility had an average score at or below 17 Assessment Discharge Therapy Needs - PT: Ongoing skilled physical therapy Skilled therapy can include physical therapy provided by home health, outpatient clinic, or a post-acute facility. The location of these services is determined by the patient's care team in partnership with patient/family. Level of Care Needed - PT: Assistance with transfers (Comment), Assistance with walking and moving around the home, Assistance with bed mobility, Assistance with stairs, Physical assistance needed, Cognitive assistance needed Equipment Recommended - PT: Front-wheeled walker Barriers to Discharge Home: Current functional status Clinical Impression of today's session: Currently, patient presents with impairments including right-sided hemiparesis secondary to CVA, discomfort of the right lower extremity with weight-bearing precautions resulting in the following functional deficits: Difficulty with functional mobility and ADLs. Patient benefited from physical assistance for completion of bed mobility to get to the edge of the bed. He demonstrated good initiationof movement, but needed physical assistance in order to complete the task. The patient was unable to support himself at the edge of the bed, but required [id number] and hand over hand cuing for [id number] transfer with use of front wheeled walker. During this transfer, he benefited from an elevated bed height as well as maximal physical assistance on his right side secondary to deficits from CVA. During this transfer attempt, the patient was unable to maintain his weight-bearing precaution of the right lower extremity. A Aleksandra steady was used in order to facilitate safe completion of mobility from the bed to the chair, the patient was able to demonstrate improved performance of his weight-bearing precaution during that task. The patient's primary impairments continue to be related to his previous CVA, and the patient may benefit from triage to brain therapy team during this current acute hospital stay. Rehab potential: Mr. Lester has Fair potential to achieve established physical therapy goals within the time frame outlined below. Tiered PT Evaluation Codes: Comorbid Conditions: Cerebrovascular accident, Diabetes Personal Factors: Sedentary lifestyle, Motivation level, Body habitus Examination elements: 3 Clinical Presentation: Evolving Clinical Decision Making: Moderate complexity clinical decision making Functional Goals: PT Inpatient Goals PT Goal #1: Patient will perform all bed mobility per home set up with moderate assistance of 1 to improve functional independence. PT Goal #2: Patient will perform [id number] transfer with least restrictive device with moderate assistance of 1 to rise from a chair. PT Goal #3: Patient will complete stand pivot transfer with moderate assistance of 1 with least restrictive device to transfer to and from his wheelchair. Plan Patient agrees with the plan of care and goals. Treatment Plan: Plan: Plan of care initiated PT Amount: 1 visit per day PT Frequency: 5 times per week PT Inpatient Duration : Until goals are met or hospital discharge Requires Inpatient Follow-Up: Yes PT - Next Inpatient Appointment: 01/19/24 PT Plan Comments: Progress functional mobility and strengthening as tolerated. Treatment interventions may include: Treatment/Interventions: Therapeutic exercise, Therapeutic functional activity, Neuromuscular re-education, Therapeutic modalities as needed Billing: Time Spent with Patient Evaluations PT Eval - Mod Complexity: 8 min Therapeutic Interventions Therapeutic Activity (min): 28 min Time Tracking Total Timed Units (min): 28 min Total Treatment Time (min): 36 min Robi Lord P.T., ErasmoP.TBelkis CTOR OF SUSTAINABILITY PROGRAMS CTOR OF SUSTAINABILITY PROGRAMS * Christine Meredith O.T., O.TMayela - 01/18/2024 10:15 AM CST Occupational Therapy [facility] Inpatient Evaluation/Treatment SUBJECTIVE Patient's Name: Estevan Lester Referring/Attending Provider: Len Hinojosa M.D. Reason for Referral: Occupational Therapy Evaluation and Treatment PERTINENT MEDICAL / SURGICAL HISTORY: Estevan Lester has a past medical history of Amblyopia Bilateral, Anemia, Apnea Sleep Obstructive, Blood Transfusion No Diagnosis, Cataract, Diabetes Mellitus NOS, Diabetes Mellitus Type 2 (HCC), Hemorrhage Gastrointestinal, Hyperlipidemia, Hypertension NOS, Neuropathy Peripheral, Other Injury Of Unspecified Body Region, Polyp Colon, Seizure (HCC), Sleep Apnea, and Stroke (HCC). Estevan Lester [...] FLAP PEDICLE ROTATIONAL LOWER EXTREMITY (Right, 05/23/2023); Carotid angioplasty; and Arthroplasty Revision Fem+Acetab Hip (Right, 01/06/2024). History of Present Illness: Estevan Lester is a 59 y.o. male who was admitted to [facility] in [place] on 01/15/2024 for Fracture Femur Shaft Closed Initial Right (HCC) [S72.301A]. Relevant Medical History: L MCA with R residual deficits in May 2023 Prior Function/Occupational Profile Lives With: Other (Comment) (SNF resident) Receives Help From: Facility staff, Family ADL Assistance: Required assistance IADL/Homemaking Assistance: Required assistance Driving: Does not drive Prior Mobility/Functional Transfers Level of [place]: Needs assistance Gait Devices/Wheelchair Used: Manual wheelchair, Power wheelchair, Front wheeled walker Gait Devices/Wheelchair Used Comments: Utilize a front wheeled walker to pivot to and from wheelchair Home Equipment Home Adaptive Equipment: None Gait Devices Owned: Front-wheeled walker Wheelchair : Manual, Power Bathroom Equipment: Shower chair with back, Grab bars in shower, Grab bars around toilet Home Living Type of Home: long-term facility Home Layout: Able to live on main level with bedroom/bathroom Home Access: Ramped entrance Bathroom Shower/Tub: Walk-in shower Walk-in shower location: Main floor Bathroom Toilet: Comfort height Bathroom Accessibility: Yes How Accessible: Accessible via wheelchair Evaluation Assessment: STRENGTH: Generalized weakness Right upper extremity impaired Right lower extremity impaired RANGE OF MOTION: Right upper extremity impaired Right lower extremity impaired BALANCE: Static Sitting: Good (Maintains balance without support) Dynamic Sitting: Fair (Maintains balance with handheld assist) Static Standing: Poor (Requires assist to maintain balance) Dynamic Standing: Poor (Requires assist to maintain balance) ACTIVITY TOLERANCE: Sitting Tolerance: Fair Standing Tolerance: Poor COORDINATION: Fine motor impairments, Gross motor impairments HAND FUNCTION: Right hand gross grasp: Impairment noted Left hand gross grasp: Functional Right hand coordination: Impairment noted Left hand coordination: Functional Outcome Measures: [facility] Inpatient Short Form: Putting on and taking off regular lower body clothing?: Total Putting on and taking off regular upper body clothing?: A lot Taking care of personal grooming such as brushing teeth?: A Little Bathing (including washing, rinsing, drying)?: A lot Toileting, which includes using toilet, bedpan, or urinal?: A lot Eating meals?: None Daily Activities Raw Score (max 24): 14 Daily Activities Standardized Score: 33.39 Interpretation: Based on scoring guidelines using the raw score value: Those going to home had an average score at or above 18 Those going to facility had an average score at or below 17 Clinicians answer the [facility] Inpatient Short Form based on observed patient activity and/or clinical judgment (patient can be scored without physically performing each activity). Cognition: Observable concerns with cognition and further assessment is warranted Cognitive impairments at baseline Cognitive Deficits: impaired attention, impaired processing, slow to respond Therapeutic Interventions: ACTIVITIES OF DAILY LIVING: LOWER BODY DRESSING - Assist Level: total assist, x 1 - Patient Location: edge of bed - LB Dressing Item: socks - Therapist Delivery: assisted - Assist/Cues Provided: unable to utilize sock aid and unable to don sock on his own due to hip precautions Bed Mobility - Supine to Sit # of Assistants: 2 Level of Assistance: Moderate assistance, Maximal assistance Device: Bed rail, Head of bed elevated Cuing: Verbal, Tactile Comments: R LE and torso support. Sit to Stand Transfers # of Assistants: 2 Transfer Surface: Bed, Chair Transfer Equipment: Gait belt, Front wheeled walker, Sit to stand machine Level of Assistance: Maximal assistance Assessment/Delivery: Assessed, Instructed, Educated, Therapist assisted Comments: elevated bed height with walker x 1 . Aleksandra Stedy x3 Stand to Sit Transfers # of Assistants: 2 Transfer Surface: Bed, Chair Transfer Equipment: Gait belt, Front wheeled walker, Sit to stand machine Level of Assistance: Moderate assistance Assessment/Delivery: Assessed, Therapist assisted Comments: cues for controlled descent. Education/Training Provided: - Role of OT in acute setting - Fall prevention - Activity precautions - Gait belt use Team Communication: The patient's status was discussed and coordination of care occurred with RN, PT Co-treat with physical therapy as patient benefits from 2 skilled therapists present in order to optimize safety and progression of mobility and self-care skills. Patient was left in bedside chair with chair alarm on at end of session with call light in reach, all needs met and questions answered. Assessment Discharge Therapy Needs - OT: Ongoing skilled occupational therapy If skilled therapy is recommended, skilled therapy can include occupational therapy provided in home health, outpatient or post-acute facility. The location of these services is determined by patient's care team in partnership with patient/family. Level of Care Needed - OT: Assistance with toilet/shower transfers, Physical assistance needed, Assistance with toileting, Assistance with dressing, Cognitive assistance needed, Assistance with medication set up/administration, Assistance with showering/bathing Barriers to Discharge Home: Fall risk, Current functional status Clinical Impression: Estevan is below his functional baseline due to impaired activity tolerance, R UE/LE ROM and strengthand need to abide by hip precautions which is further complicated by his significant baseline residual stroke deficits from a L MCA stroke in May 2023. He struggles with communication, cognitive processing, vision, and R UE/LE strength and ROM. Estevan is requiring a heavy assist of 2 for transfersin Aleksandra Reed today following walker attempt. He was provided with a gel cushion to provide some lift from bedside chair as he struggles to get up from average-low surfaces. He does best with height of bed elevated significantly and support for balance/strength on R side from therapist. He struggles to maintain his touch weight bearing, likely due to a multitude of factors that were previously mentioned, and he remains a high fall risk. He will require ongoing acute therapy to progress his functional status and safety. Plan OT Plan Comments: Discussed case with brain OT to determine possible triage due to stroke this yearand brain team following at that time, and additionally that admitting injury is for inability to maintain WB and precautions from stroke deficits; brain team was receptive to the triage and communicated with brain PT Functional Goals: OT Goal #1: Patient will teachback understanding of posterior hip precautions by discharge. OT Goal #2: Patient will abide by touch weight bearing precautions for a toilet transfer prior by discharge. OT Goal #3: Patient will complete grooming/morning routine seated at sink side with no greater thansupervision/set-up by discharge. Progress: Slow progress, limited activity tolerance Rehab potential: Mr. Lester has fair potential to achieve established occupational therapy goals within the time frame outlined below. OT Frequency: OT Amount: 1 visit per day OT Frequency: 5 times per week OT Inpatient Duration : Until goals are met or hospital discharge Requires Inpatient OT Follow-Up: Yes OT - Next Inpatient Appointment: 01/19/24 Plan: Plan of care initiated Treatment interventions may include: Treatment Interventions: Therapeutic exercise, Therapeutic functional activity, Self-care/home management, Neuromuscular re-education Occupational Therapy Attestation Statement: Patient agrees with the plan of care and goals. Billing: Tiered OT Evaluation Codes: Comorbid Conditions: Cerebrovascular accident, Diabetes, Obesity Personal Factors: Sedentary lifestyle, Motivation level, Body habitus, Communication deficit, Learning style, Needs assistive device, Safety awareness Occupational Profile and History review: Extensive Performance Deficits: at least 5 performance deficits Evaluation Complexity: High Time Spent with Patient Evaluations OT Eval - Low Complexity: 10 min Therapeutic Interventions Therapeutic Activity (min): 29 min Time Tracking Total Timed Units (min): 29 min Total Treatment Time (min): 39 min Christine Meredith O.T., O.TMayela CTOR OF SUSTAINABILITY PROGRAMS * Flores Butterfield RDN, LD - 01/17/2024 11:38 AM CSTAssociated Order(s): IP CONSULT TO DIETITIAN Nutrition Care Plan Follow Up Clinical Nutrition was requested to evaluate patient for assessment of nutritional status ASSESSMENT Mr. Lester is a 59 y.o. male admitted for Fracture Femur Shaft Closed Initial Right (HCC) Current Nutrition: Mr. Lester was resting during my visit attempt and per nursing he has been somnolent today. Patient was able to sit up and ate breakfast and lunch with some assistance. Percentage of Meals Eaten for the past 72 hrs: Percent Meals Eaten (%) 01/17/24 1118 75 01/17/24 0837 75 01/16/242014 75 Current nutrition orders: Current Diet Adult Diet Regular starting at 01/15 1620 GI Function: Last BM Date: 01/15/24, Stanley Stool Chart: Type 6: Fluffy pieces with ragged edges, a mushy stool, Passing Flatus: Yes Weight since admission: Height: 181 cm Admission Weight: 97.8 kg (01/15/2024) Current Weight: 97.8 kg Ennice Body Weight (Calculated) : 75.9 kg BMI (Calculated): 29.9 kg/m?? Weight change since admission: 0 kg Net IO Since Admission: 4,299.44 mL [01/17/24 1138] Estimated Needs: Total Calorie Needs: 8731-8589 calories/day Method to Estimate Energy Needs: kcal/kg (20-25 kcal/kg) Weight Used for Equation Calculations: 91 kg Total Protein Needs: 91 - 109 grams/day Method to Estimate Protein Needs (g/kg): 1 - 1.2 gm/kg Weight Used to Calculate Protein Needs (Kg): 91 kg Nutrition Diagnosis: Increased nutrient needs related to increased protein needs current illness as evidenced by femur fracture . Ongoing PLAN Nutrition Intervention: Increase nutrient intake with small, frequent meals and/or snacks, Medical food supplement, Vitamin and mineral supplements Nutrition parameter to monitor: Meals/Supplement Intake and Weight Status ASPEN Criteria Malnutrition Status: Unable to complete full NFPE. Recommendations: No changes at this time; continue current nutrition orders Clinical Nutrition will continue to follow. For questions about patient's nutritional care please contact pager [phone] on weekdays 07:30-16:00 or [phone] on weekends/holidays ([facility]). CTOR OF SUSTAINABILITY PROGRAMS * Ramiro Mcgill M.D. - 01/16/2024 4:46 PM CSTAssociated Order(s): IP CONSULT TO VASCULAR MEDICINE Referring Physician: No ref. provider found SUBJECTIVE The patient has been neither seen nor examined; this consultation is based entirely upon information available in the [facility] electronic medical record. CHIEF COMPLAINT / REASON FOR VISIT Anticoagulation recommendations HISTORY OF PRESENT ILLNESS Mr. Lester is a 59 y.o. male status post embolic stroke occurring several months ago. He has been on DVT prophylaxis with rivaroxaban due to immobilization. He underwent surgery for right hip periprosthetic fracture today. Original surgery was done on 01/06/2024. He had periprocedural anticoagul ation recommendations on the chart placed 12/08/2023. I have reviewed those recommendations. Her reviewed all laboratories. Importantly, liver enzymes, renal function CBC are unremarkable. I am asked to comment on anticoagulation. All available relevant information was reviewed. ASSESSMENT / PLAN #1 Status post right periprosthetic hip fracture repair #2 Prior embolic stroke #3 Prior deep vein thrombosis #4 Carotid artery stenosis Agree with recommendations as previously outlined. Should employee SCDs as able, resume prophylactic enoxaparin as soon as felt safe and then transition back to rivaroxaban 10 mg by mouth daily. He has atherosclerosis at the carotid and vertebral arteries. Currently on low intensity statin. Recommend increasing this to 40 mg daily. If aspirin has been held, please resume as soon as felt safe. Will sign off. Ramiro Mcgill M.D. CTOR OF SUSTAINABILITY PROGRAMS * Kimmie Duval P, JUAN RAMON, C.N.P., D.N.P. - 01/16/2024 4:33 PM CSTAssociated Order(s): Diabetes consult (hospital) THIS IS A SIGN ON NOTE for overnight recommendations. Please see DCS consult note on 01/07/24 by Albert Lay CNP for further details. SUBJECTIVE LOS: 1 day DCS was reconsulted by [facility] orthopedic trauma surgery service. DCS will sign on to this 59 y.o. year-old male for diabetes admitted on 01/15/2024 for Fracture Femur Shaft Closed Initial Right (HCC). Patient was in the OR today and remain in the OR this afternoon. DIABETES COMPLICATIONS/CO-MORBIDITIES: Peripheral neuropathy, diabetic foot ulcers, hypertension, hyperlipidemia, obstructive sleep apnea,bilateral ICA stenosis status post angioplasty, stenting, mechanical thrombectomy, acute ischemic stroke, right carotid artery occlusion status post carotid stenting 2022 and angioplasty 2023, COPD, p eripheral artery disease. PREADMISSION THERAPY: NPH 8 units in the morning and 4 units in the evening. OBJECTIVE Patient is not seen today. In the OR. Blood glucose results in last 24 hours: Recent Labs 01/16/24 1515 01/16/24 1317 01/16/24 1202 01/16/24 1100 01/16/24 0932 01/16/24 0531 GLUCOSEPOC 189 H -- -- -- -- 178 H GLUCOSE -- 176 H 197 H 200 H 171 H -- Yesterday, given: no insulin. Steroids: Dexamethasone 4 mg IV today at 0901 Current Diet Adult Diet Regular starting at 01/15 1620 VITALS Temperature: 37 ??C Heart Rate: 74 Resp Rate: 21 Blood Pressure: 109/90 BP Location: Right arm;Lower Arterial Line BP: 128/62 SpO2: 98 % Flow Rate (L/min): 2 L/min Height: 181 cm Weight: 97.8 kg Body mass index is 29.85 kg/m??. LABORATORY Lab Results Component Value Date CREATININE 0.91 01/15/2024 Estimated Creatinine Clearance: 120.9 mL/min (by C-G formula based on SCr of 0.91 mg/dL). ASSESSMENT / PLAN #1 Diabetes mellitus, type 2, preadmission euglycemia, A1c 5.1% complicated by diabetic neuropathy #2 Hyperglycemia in the setting of steroids and surgical stress #3 Peripheral artery disease #4 History stroke #5 Status post SURGICAL MANAGEMENT PERIPROSTHETIC FEMUR FRACTURE, right 01/16/2024 PLAN - DCS will sign on and follow the patient. Full consult will be performed tomorrow as it is after consult hours and patient remains in OR. - Blood glucose monitoring: four times daily before meals and bedtime and 0200 x1. - Glucose goal: 140-180 mg/dL - Basal: No basal insulin. - Mealtime: 1 unit for every 15 grams of carbohydrates consumed with meals. - Correction scale: NovoLog moderate correction scale three times a day, modified bedtime correction scale, and mild correction scale 0200 x1. - DCS will evaluate and adjust insulin doses as indicated to achieve glycemic goal. ANTICIPATED DISMISSAL PLAN: Preadmission therapy pending any contraindications. Blood glucose frequency: twice daily Goal: 100-160 mg/dL, higher goal due to age and comorbidities Please page DCS within 24 hours prior to hospital dismissal for final dismissal recommendations. Discussed above plan with patient who is alert and oriented and in agreement. DCS Pager [phone] will continue to follow. Call primary service for diabetes concerns between [phone]. Primary service to contact DCS via hospital prototype machine operator for questions. Diabetes consult (hospital) Referring Provider: Flako Loaiza M.D. CTOR OF SUSTAINABILITY PROGRAMS * Ac Golden RDN, LD - 01/16/2024 2:45 PM CSTAssociated Order(s): IP CONSULT TO DIETITIAN Clinical Nutrition: Initial Assessment Clinical Nutrition was requested to evaluate patient for positive nursing baseline nutrition screenwith a MST score of 2 or greater Completed visit or chart review today without direct contact with the patient due to Patient away at procedure on attempted visits. SUBJECTIVE Mr. Lester is a 59 y.o. male admitted for Fracture Femur Shaft Closed Initial Right (HCC) Pertinent Medical History: Past Medical History: Diagnosis Date Amblyopia Bilateral Anemia Apnea Sleep Obstructive Blood Transfusion No Diagnosis Cataract Diabetes Mellitus NOS Diabetes Mellitus Type 2 (HCC) Hemorrhage Gastrointestinal Hyperlipidemia Hypertension NOS Neuropathy Peripheral Other Injury Of Unspecified Body Region Polyp Colon Seizure (HCC) Sleep Apnea Stroke (HCC) Current Nutrition: Consult received for MST 99. Has been NPO since admission for procedure. Noted to be missing front teeth. Has RD who follows him at [facility] in [place], [place]. No data found. Nutrition Prior to Admission: Recently seen by the rail technician at [facility] for pressure injury and assessment of nutritional status. He was agreeable to premier protein at that time. He wasevaluated for the necessity of a PEG by NSS in May of this year due to decreased oral intake and dysphagia. He was able to have her NG removed and was able to maintain intake that supported weight maintenance. At that time he was drinking ensure plus high protein with meals. Nutrition Education/Counseling: RD will continue to follow and provide education as appropriate. Food Allergies/Intolerances: Allergies Allergen Reactions Cefazolin Other (see comments) Possible increase in alkaline phosphatase please see ID notes OBJECTIVE Current nutrition orders: Pertinent Labs: Last 3 results Lab Units 01/16/24 1317 01/16/24 1202 01/16/24 1100 01/16/24 0932 01/15/24 0558 SODIUM P mmol/L -- -- -- -- 134* NABS SODIUM mmol/L 135 134* 135 < > -- POTASSIUM KBS mmol/L 4.0 4.4 4.4 < > -- POTASSIUM P mmol/L -- -- -- -- 4.5 CHLORIDE P mmol/L -- -- -- -- 99 BUN P mg/dL -- -- -- -- 30* CREATININE mg/dL -- -- -- -- 0.91 CALCIUM P mg/dL -- -- -- -- 8.3* < > = values in this interval not displayed. GI Function:Last BM Date: 01/15/24, Stanley Stool Chart: Type 6: Fluffy pieces with ragged edges, amushy stool, Passing Flatus: Yes Edema:Edema: Right lower extremity, , ,Right Lower Extremity Edema: 0 Non- pitting or trace <2mm,, , Integumentary/Wounds: Lines/Drains/Airways Wound Duration Wound 06/02/23 Incontinence Associated Dermatitis Perineum Groin to Perirectal 228 days Wound 01/07/24 Pressure Injury Stage 2 Coccyx Medial 9 days Wound 01/16/24 Friction Injury Hip Right;Lateral from brace rubbing on skin <1 day Wound 01/16/24 Incision Thigh Right;Lateral <1 day Medications: Scheduled Meds:[Transfer Hold] acetaminophen, 1,000 mg, oral, 4x Daily [Transfer Hold] atorvastatin, 20 mg, oral, Daily at bedtime [Transfer Hold] calcium citrate-vitamin D3, 2 tablet, oral, BID [Transfer Hold] cefadroxil, 500 mg, oral, BID [Transfer Hold] insulin aspart, 0-7 Units, subcutaneous, TID [Transfer Hold] levETIRAcetam, 750 mg, oral, BID [Transfer Hold] pantoprazole, 40 mg, oral, Daily before morning meal [Transfer Hold] polyethylene glycol, 1 packet, oral, Daily [Transfer Hold] sennosides-docusate sodium, 1 tablet, oral, BID [Transfer Hold] sodium chloride, 3 mL, intravenous, Q12H TERI Continuous Infusions:Lactated Ringer's, 50 mL/hr PRN Meds: [Transfer Hold] bisacodyL [Transfer Hold] calcium carbonate [Transfer Hold] Artificial Tears [Transfer Hold] HYDROmorphone [Transfer Hold] ondansetron [Transfer Hold] oxyCODONE OR [Transfer Hold] oxyCODONE [Transfer Hold] sodium chloride [Transfer Hold] sodium chloride Anthropometrics: Height: 181 cm Admission Weight: 97.8 kg (01/15/2024) Current Weight: 97.8 kg BMI (Calculated): 29.9 kg/m?? Weight change since admission: 0 kg Net IO Since Admission: 4,256.44 mL [01/16/24 1456] Weight history: Query if 97.8kg inaccurate due to the significant increase in 7 days. Wt Readings from Last 12 Encounters: 01/15/24 97.8 kg 01/08/24 91 kg 01/05/24 91 kg 11/28/23 93.7 kg 10/03/23 84.5 kg 05/06/24 87.1 kg 05/15/23 84.9 kg 03/20/23 85 kg 03/15/23 85 kg 03/10/23 85.5 kg 03/07/23 84.6 kg 11/20/22 87.4 kg ASSESSMENT / PLAN Nutrition Diagnosis: Increased nutrient needs related to current illness as evidenced by femur fracture . Initiated Malnutrition Assessment: Needs further assessment Estimated Needs: Total Calorie Needs: 4180-9845 calories/day Method to Estimate Energy Needs: kcal/kg (20-25 kcal/kg) Weight Used for Equation Calculations: 91 kg Total Protein Needs: 91 - 109 grams/day (Method to Estimate Protein Needs (g/kg): 1 - 1.2 gm/kg) Weight Used to Calculate Protein Needs (Kg): 91 kg Nutrition Intervention: Interventions: Increase nutrient intake with small, frequent meals and/or snacks, Medical food supplement, Vitamin and mineral supplements Monitoring/Evaluation: Nutrition parameter to monitor: Diet Progression/NPO Status, Meals/Supplement Intake, Weight Status, Pertinent Labs, and Chewing/Swallowing Desired Outcome: Consume adequate nutrition orally Recommendations: No changes at this time; continue current nutrition orders Clinical Nutrition will continue to follow. For questions about patient's nutritional care please contact pager [phone] on weekdays 07:30-16:00 or [phone] on weekends/holidays ([facility]). CTOR OF SUSTAINABILITY PROGRAMS * Graham Alfonso, M.S.W., L.G.S.W. - 01/16/2024 12:39 PM CSTAssociated Order(s): IP CONSULT TO CARE MANAGEMENT; IP CONSULT TO CARE MANAGEMENT SUBJECTIVE A full psychosocial was completed on 05/26/23 by Dawn Parks, SHIMON, OUTBOARD MOTOR INSPECTOR and should be consulted for further detail. Social work attempted to see Mr. Lester. He was in the OR. Social work contacted his sister artem, Lor Tanner. Lor's guardianship is on file. She stated no other changes had occurred other than his fall and fractured femur. Lor is concerned about his rehabilitation. She is not sure of the best post-operative care fit, group home facility or [facility]. She would like to see how he does in PT/OT post-operatively. Lor shared that she was a nurse case aide for [employer] in the [facility]. She also shared that she is concerned with his consistently low hemoglobin and would like a consult on this issue if possible. OBJECTIVE Mr. Lester is in the OR. ASSESSMENT / PLAN ASSESSMENT N/A PLAN Mr. Lester would like to discharge back to [facility] in [place] if medically appropriate. Social work will follow for support and discharge needs. Tacho Muir, Alejandrina 01/16/24 CTOR OF SUSTAINABILITY PROGRAMS * Ester Vann M.D. - 01/16/2024 8:04 AM CST ORTHOPEDIC TRAUMA SURGERY CONSULT SUBJECTIVE REASON FOR CONSULT Right thigh pain. HISTORY OF PRESENT ILLNESS Mr. Lester is a 59-year-old man with a complicated medical history including hypertension, hyperlipidemia, peripheral artery disease, type 2 diabetes mellitus, obstructive sleep apnea, carotid artery stenosis status post angioplasty in July 2022 on Xarelto, TIA, GI bleed, CVA in 2023 with residual right-sided hemiparesis, as well as a right revision total hip arthroplasty. 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 Since that time, he developed 2 periprosthetic hip dislocations within 1 year of his index arthroplasty that were both managed with closed reduction. The patient underwent management for a right total hip PJI in 2022 as well and has recently completed a 2-stage resection arthroplasty with an antibiotic spacer placed in May 2023 utilizing an extended trochanteric osteotomy. Additionally, a pedicle rotational flap was also performed at that time. Of note, after this antibiotic spacer procedure, he sustained another CVA postoperatively. He underwent his second-stage reimplantation on January 06, 2024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 bilaterally. Elijah stable. Belia Valles R.N. 01/15/24 0609 CTOR OF SUSTAINABILITY PROGRAMS * Martha Walton D.O., M.H.A. - 01/15/2024 5:43 AM CST SUBJECTIVE CHIEF COMPLAINT/REASON FOR VISIT Fall HISTORY OF PRESENT ILLNESS Estevan Lester is a 59-year-old male with history of stroke and seizure coming from a assisted-living facility with concerns for right hip pain. He had a right hip arthroplasty revision on 01/05. Today he was getting out of bed when he fell. This was unwitnessed patient had an unknown downtime. He is endorsing only right hip pain. He states he can not move his toes due to pain. He is currently holding his rivaroxaban due to his recent surgery. REVIEW OF SYSTEMS See HPI OBJECTIVE Initial Vitals Temperature 01/15/24 0539 36.5 ??C Pulse Rate 01/15/24 0539 67 Heart Rate 01/15/24 0607 71 Resp Rate 01/15/24 0539 17 Blood Pressure 01/15/24 0539 150/76 SpO2 01/15/24 0607 95 % Pain Score 01/15/24 0539 8 PHYSICAL EXAMINATION Primary survey: Airway intact Bilateral breath sounds +2 radial pulse in the right GCS 15 No obvious deformity or hemorrhage on exposure Secondary survey: Constitutional: Vitals reviewed. No distress. HENT: Cervical collar in place. Moist mucous membranes. No bony instability in the face. No hemotympanum or septal hematoma. Eyes: No subconjunctival hemorrhage bilaterally. Pupils are 2 mm and reactive to light Neck: No crepitus, trachea midline. Cardiovascular: Regular rhythm and normal heart sounds. Exam reveals no friction rub. Capillary refill: takes less than 3 seconds Pulmonary/Chest: Effort normal. No wheezing, rhonchi, rales. No clavicle or chest wall tenderness to palpation. No crepitus on palpation. Abdominal: No tenderness to palpation. Musculoskeletal: Right hip in hip immobilizer. Will not move right toes due to pain. 2+ DP pulse onright. Otherwise, appropriate range of motion of remaining 3 extremities. Posterior survey without step-offs, deformities, or ecchymosis. . Neurological: Alert. GCS 15. Skin: Skin is warm and intact without laceration. ASSESSMENT/PLAN Estevan Lester is a 59-year-old male with recent right hip total arthroplasty revision presenting today with concerns for right hip pain after an unwitnessed fall out of bed with unknown downtime. Upon presentation, patient is hemodynamically stable and in no acute distress. Primary survey intact without concern. Secondary surveys remarkable for right hip and a hip immobilizer, 2+ DP pulse,however patient will not move his right foot due to pain. Due to a unwitnessed fall and potentiallyprolonged downtime with concerns for distracting injury with a recent right hip surgery, we will obtain full trauma imaging. We will additionally obtain x-rays of the hip and femur. We will obtain labs to look for a cause of his fall as he is not sure if it was mechanical or not. Please see ED course for remainder of patient workup. ED Course as of 01/15/24 0702 Sharifa Jan 15, 2024 0606 Hemoglobin(!): 7.4 Similar to 7.9 six days ago 0607 Leukocytes(!): 12.0 Mild leukocytosis with left shift 0608 ECG 12 Lead Normal sinus rhythm at 67bpm. Normal axis. Intervals within normal limits. No acute ST segment changes concerning for ischemia. No evidence of hypertrophic cardiomyopathy, heart block, prolonged QT, WPW, Brugada, or arrhythmogenic right ventricular dysplasia. 0619 Creatinine: 0.91 No ROLANDO 0620 Troponin T, Baseline, 5th gen(!): 35 Will trend 0701 DX Femur Right 2 Views Fracture below hardware. Will consult ortho. 0701 Patient was signed out to oncoming team pending trauma imaging and orthopedics consult for hisfemur fracture. He will need to be admitted for surgical management. My ECG interpretation is documented in ED Course. My Plain Films interpretation is documented in ED Course. Martha Walton D.O., M.H.A. Resident 01/15/24 0702 CTOR OF SUSTAINABILITY PROGRAMS documented in this encounter Miscellaneous Notes * Hospital Course - Lizeth Joe MPAS, P.A.-C. - 01/19/2024 7:17 AM DIRECTOR OF SUSTAINABILITY PROGRAMS # Right closed displaced periprosthetic femur fracture about the tip of a modular fluted tapered stem s/p ORIF with plate, screw and cable fixation (Dr. Vann, 01/16/24) # Status post mechanical ground-level fall, 01/14/2024 The patient was admitted to [facility]. Internal medicine team was consulted to assist with TALYA and medical management. On 01/16/24, the patient was taken to the operating room for ORIF right periprosthetic femur fracture with plate/screw/cable fixation. The patient tolerated the procedure well and returned to the orthopedic nursing care floor. Hemoglobin on 01/16 was 7.6 and he had associated hypotension. 1 PRBC was transfused and labs stabilized prior to dismissal. 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 Upon moving the cuff to his left arm, his blood pressure readings were normotensive to hypertensive. He has remained vitally stable since last night. From now on, strongly recommended that his blood pressures are measured from his left arm only (avoided right arm due to inaccurate readings). Given hypertension, we considered resuming his home lisinopril. But review of records reveal that patient has been intermittently hyperkalemic even without lisinopril with elevated BUN still (without elevated creatinine). Thus, after discussion with the pharmacy, we proceeded with amlodipine 5 mg instead of lisinopril 5. Re-initiation of lisinopril can be re- evaluated in the outpatient setting (as lisinopril will have car diovascular/renal benefits with patient's comorbidities) Physical therapy was consulted for assistance with mobilization. vocational services specialist was consulted to assist with placement. Diet was advanced per protocol, and was tolerating regular diet. The pain was initially controlled on IV medications, and weaned to oral medications as tolerated. The patient hadadequate pain control on the oral regimen. The patient's bowel and bladder function returned to itspreoperative state. The patient was mobilizing with physical therapy. Based off recommendations from service lines, the patient was discharged to a group home facility. 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 at this time # Concern for postoperative noncompliance versus medical illiteracy # Hypertension # Hyperlipidemia # Peripheral artery disease # Type 2 diabetes mellitus with an open right great toe ulcer # Obstructive sleep apnea # Carotid artery stenosis status post angioplasty in July 2022, on Xarelto # History of multiple TIAs versus CVA with right-sided hemiplegia #1 History of GI bleed # Multiply revised right total hip CTOR OF SUSTAINABILITY PROGRAMS CTOR OF SUSTAINABILITY PROGRAMS CTOR OF SUSTAINABILITY PROGRAMS CTOR OF SUSTAINABILITY PROGRAMS documented in this encounter Plan of Treatment Upcoming Encounters Date Type Department Care Team (Latest Contact Info) Description 01/27/2024 12:30 PM DIRECTOR OF SUSTAINABILITY PROGRAMS Appointment Department of Orthopedic Surgery in [address] [phone] Lizeth Joe MPAS, P.A.-C. [address] [place] [phone] Discharge Disposition: Home or Self Care 02/19/2024 1:45 PM DIRECTOR OF SUSTAINABILITY PROGRAMS Appointment Department of Radiology, [facility], in [place], [place] [address] [place] [phone] Fantasma Butt M.D. [address] [place] [phone] 02/20/2024 11:00 AM DIRECTOR OF SUSTAINABILITY PROGRAMS Virtual Visit Department of Radiology, [facility], in [address] [phone] Radha Ojeda P.A.-C., M.S. [address] [place] [phone] 04/13/2024 2:00 PM DIRECTOR OF SUSTAINABILITY PROGRAMS Clinical Communication Virtual Review in [place], [place] [address] [place] [phone] 04/15/2024 12:00 PM DIRECTOR OF SUSTAINABILITY PROGRAMS Appointment Department of Radiology, [facility], in [place], [place] [address] [place] [phone] Brittney Piña MPAS, P.A.-C. [address] [place] [phone] 04/15/2024 1:00 PM DIRECTOR OF SUSTAINABILITY PROGRAMS Office Visit Department of Orthopedic Surgery in [place], [place] [address] [place] [phone] Vel Vinson M.D., M.B.A. [address] [place] [phone] Pending Results Name Type Priority Associated Diagnoses Date /Time Prepare Red Blood Cells, 1 Units Blood Bank Routine 01/15/2024 8:24 AM DIRECTOR OF SUSTAINABILITY PROGRAMS Prepare Red Blood Cells, 1 Units Blood Bank STAT 01/15/2024 8:24 AM DIRECTOR OF SUSTAINABILITY PROGRAMS Prepare Red Blood Cells, 1 Units Blood Bank Routine 01/15/2024 8:24 AM DIRECTOR OF SUSTAINABILITY PROGRAMS Prepare Red Blood Cells, 1 Units Blood Bank Routine 01/15/2024 8:24 AM DIRECTOR OF SUSTAINABILITY PROGRAMS documented as of this encounter Procedures Procedure Name Priority Date/Time Associated Diagnosis Comments HEMOGLOBIN, B STAT 01/20/2024 8:57 AM DIRECTOR OF SUSTAINABILITY PROGRAMS SARS CORONAVIRUS 2, PCR RAPID, V STAT 01/20/2024 8:35 AM DIRECTOR OF SUSTAINABILITY PROGRAMS GLUCOSE POCT, B Routine 01/20/2024 7:40 AM DIRECTOR OF SUSTAINABILITY PROGRAMS GLUCOSE POCT, B Routine 01/20/2024 7:04 AM DIRECTOR OF SUSTAINABILITY PROGRAMS GLUCOSE POCT, B Routine 01/19/2024 8:14 PM DIRECTOR OF SUSTAINABILITY PROGRAMS GLUCOSE POCT, B Routine 01/19/2024 4:30 PM DIRECTOR OF SUSTAINABILITY PROGRAMS GLUCOSE POCT, B Routine 01/19/2024 11:31 AM DIRECTOR OF SUSTAINABILITY PROGRAMS GLUCOSE POCT, B Routine 01/19/2024 7:50 AM DIRECTOR OF SUSTAINABILITY PROGRAMS GLUCOSE POCT, B Routine 01/18/2024 9:04 PM DIRECTOR OF SUSTAINABILITY PROGRAMS GLUCOSE POCT, B Routine 01/18/2024 6:11 PM DIRECTOR OF SUSTAINABILITY PROGRAMS GLUCOSE POCT, B Routine 01/18/2024 4:33 PM DIRECTOR OF SUSTAINABILITY PROGRAMS GLUCOSE POCT, B Routine 01/18/2024 11:55 AM DIRECTOR OF SUSTAINABILITY PROGRAMS GLUCOSE POCT, B Routine 01/18/2024 8:05 AM DIRECTOR OF SUSTAINABILITY PROGRAMS CBC WITHOUT DIFFERENTIAL, B Routine 01/18/2024 4:17 AM DIRECTOR OF SUSTAINABILITY PROGRAMS ALKALINE PHOSPHATASE, S/P Routine 01/18/2024 4:17 AM DIRECTOR OF SUSTAINABILITY PROGRAMS BASIC METABOLIC PANEL, S/P Routine 01/18/2024 4:17 AM DIRECTOR OF SUSTAINABILITY PROGRAMS GLUCOSE POCT, B Routine 01/18/2024 1:44 AM DIRECTOR OF SUSTAINABILITY PROGRAMS GLUCOSE POCT, B Routine 01/17/2024 8:35 PM DIRECTOR OF SUSTAINABILITY PROGRAMS HEMOGLOBIN, B STAT 01/17/2024 5:03 PM DIRECTOR OF SUSTAINABILITY PROGRAMS POTASSIUM, S/P STAT 01/17/2024 5:03 PM DIRECTOR OF SUSTAINABILITY PROGRAMS GLUCOSE POCT, B Routine 01/17/2024 5:01 PM DIRECTOR OF SUSTAINABILITY PROGRAMS GLUCOSE POCT, B Routine 01/17/2024 11:37 AM DIRECTOR OF SUSTAINABILITY PROGRAMS TRANSFUSE RED BLOOD CELLS Routine 01/17/2024 9:36 AM DIRECTOR OF SUSTAINABILITY PROGRAMS GLUCOSE POCT, B Routine 01/17/2024 7:51 AM DIRECTOR OF SUSTAINABILITY PROGRAMS CBC WITHOUT DIFFERENTIAL, B Routine 01/17/2024 6:08 AM DIRECTOR OF SUSTAINABILITY PROGRAMS ALKALINE PHOSPHATASE, S/P Routine 01/17/2024 6:08 AM DIRECTOR OF SUSTAINABILITY PROGRAMS BASIC METABOLIC PANEL, S/P Routine 01/17/2024 6:08 AM DIRECTOR OF SUSTAINABILITY PROGRAMS GLUCOSE POCT, B Routine 01/17/2024 2:09 AM DIRECTOR OF SUSTAINABILITY PROGRAMS GLUCOSE POCT, B Routine 01/16/2024 8:16 PM DIRECTOR OF SUSTAINABILITY PROGRAMS GLUCOSE POCT, B Routine 01/16/2024 5:45 PM DIRECTOR OF SUSTAINABILITY PROGRAMS GLUCOSE POCT, B Routine 01/16/2024 3:15 PM DIRECTOR OF SUSTAINABILITY PROGRAMS ADULT OXYGEN THERAPY Routine 01/16/2024 3:07 PM DIRECTOR OF SUSTAINABILITY PROGRAMS DX FEMUR RIGHT 2 VIEWS RAD - Routine (most inpatients and all outpatients) 01/16/2024 3:00 PM DIRECTOR OF SUSTAINABILITY PROGRAMS PATIENT STATUS, ABG STAT 01/16/2024 1 :17 PM DIRECTOR OF SUSTAINABILITY PROGRAMS SODIUM, B STAT 01/16/2024 1:17 PM DIRECTOR OF SUSTAINABILITY PROGRAMS ABG W/COOX STAT 01/16/2024 1:17 PM DIRECTOR OF SUSTAINABILITY PROGRAMS POTASSIUM, B STAT 01/16/2024 1:17 PM DIRECTOR OF SUSTAINABILITY PROGRAMS GLUCOSE, WHOLE BLOOD STAT 01/16/2024 1:17 PM DIRECTOR OF SUSTAINABILITY PROGRAMS CALCIUM, IONIZED, S/B STAT 01/16/2024 1:17 PM DIRECTOR OF SUSTAINABILITY PROGRAMS AUTOLOGOUS RED BLOOD CELLS-CELL SALVAGE Routine 01/16/2024 12:48 PM DIRECTOR OF SUSTAINABILITY PROGRAMS FL FLUORO LESS THAN 1 HOUR RAD - Routine (most inpatients and all outpatients) 01/16/2024 12:43 PM DIRECTOR OF SUSTAINABILITY PROGRAMS PATIENT STATUS, ABG STAT 01/16/2024 12:02 PM DIRECTOR OF SUSTAINABILITY PROGRAMS SODIUM, B STAT 01/16/2024 12:02 PM DIRECTOR OF SUSTAINABILITY PROGRAMS ABG W/COOX STAT 01/16/2024 12:02 PM DIRECTOR OF SUSTAINABILITY PROGRAMS POTASSIUM, B STAT 01/16/2024 12:02 PM DIRECTOR OF SUSTAINABILITY PROGRAMS GLUCOSE, WHOLE BLOOD STAT 01/16/2024 12:02 PM DIRECTOR OF SUSTAINABILITY PROGRAMS CALCIUM, IONIZED, S/B STAT 01/16/2024 12:02 PM DIRECTOR OF SUSTAINABILITY PROGRAMS TRANSFUSE RED BLOOD CELLS Routine 01/16/2024 11:08 AM DIRECTOR OF SUSTAINABILITY PROGRAMS PATIENT STATUS, ABG STAT 01/16/2024 11:00 AM DIRECTOR OF SUSTAINABILITY PROGRAMS SODIUM, B STAT 01/16/2024 11:00 AM DIRECTOR OF SUSTAINABILITY PROGRAMS ABG W/COOX STAT 01/16/2024 11:00 AM DIRECTOR OF SUSTAINABILITY PROGRAMS POTASSIUM, B STAT 01/16/2024 11:00 AM DIRECTOR OF SUSTAINABILITY PROGRAMS GLUCOSE, WHOLE BLOOD STAT 01/16/2024 11:00 AM DIRECTOR OF SUSTAINABILITY PROGRAMS CALCIUM, IONIZED, S/B STAT 01/16/2024 11:00 AM DIRECTOR OF SUSTAINABILITY PROGRAMS TRANSFUSE RED BLOOD CELLS Routine 01/16/2024 9:58 AM DIRECTOR OF SUSTAINABILITY PROGRAMS PATIENT STATUS, ABG STAT 01/16/2024 9 :32 AM DIRECTOR OF SUSTAINABILITY PROGRAMS SODIUM, B STAT 01/16/2024 9:32 AM DIRECTOR OF SUSTAINABILITY PROGRAMS ABG W/COOX STAT 01/16/2024 9:32 AM DIRECTOR OF SUSTAINABILITY PROGRAMS POTASSIUM, B STAT 01/16/2024 9:32 AM DIRECTOR OF SUSTAINABILITY PROGRAMS GLUCOSE, WHOLE BLOOD STAT 01/16/2024 9:32 AM DIRECTOR OF SUSTAINABILITY PROGRAMS CALCIUM, IONIZED, S/B STAT 01/16/2024 9:32 AM DIRECTOR OF SUSTAINABILITY PROGRAMS SURGICAL MANAGEMENT SHAFT FRACTURE FEMUR 01/16/2024 7:45 AM DIRECTOR OF SUSTAINABILITY PROGRAMS Fracture Periprosthetic Hip Initial Right (HCC) GLUCOSE POCT, B Routine 01/16/2024 5:31 AM DIRECTOR OF SUSTAINABILITY PROGRAMS HEMOGLOBIN, B Routine 01/15/2024 8:04 PM DIRECTOR OF SUSTAINABILITY PROGRAMS GLUCOSE POCT, B Routine 01/15/2024 4:15 PM DIRECTOR OF SUSTAINABILITY PROGRAMS TRANSFUSE RED BLOOD CELLS Routine 01/15/2024 10:50 AM DIRECTOR OF SUSTAINABILITY PROGRAMS GLUCOSE POCT, B Routine 01/15/2024 10:00 AM DIRECTOR OF SUSTAINABILITY PROGRAMS DX SHOULDER RIGHT 2+ VIEWS RAD - Semiurgent (Fast; most ED patients; some inpatients) 01/15/2024 8:42 AM DIRECTOR OF SUSTAINABILITY PROGRAMS TROPONIN T, 2H/6H REFLEX, 5TH GEN, P Timed 01/15/2024 8:24 AM DIRECTOR OF SUSTAINABILITY PROGRAMS PREPARE RED BLOOD CELLS Routine 01/15/2024 8:24 AM DIRECTOR OF SUSTAINABILITY PROGRAMS PREPARE RED BLOOD CELLS Routine 01/15/2024 8:24 AM DIRECTOR OF SUSTAINABILITY PROGRAMS PREPARE RED BLOOD CELLS STAT 01/15/2024 8:24 AM DIRECTOR OF SUSTAINABILITY PROGRAMS PREPARE RED BLOOD CELLS Routine 01/15/2024 8:24 AM DIRECTOR OF SUSTAINABILITY PROGRAMS TYPE AND SCREEN Routine 01/15/2024 8:24 AM DIRECTOR OF SUSTAINABILITY PROGRAMS CT FEMUR RIGHT WITHOUT IV CONTRAST RAD - Routine (most inpatients and all outpatients) 01/15/2024 8:02 AM DIRECTOR OF SUSTAINABILITY PROGRAMS CT THORACIC AND LUMBAR SPINE BY RECONSTRUCTION RAD - Semiurgent (Fast; most ED patients; some inpatients) 01/15/2024 6:51 AM DIRECTOR OF SUSTAINABILITY PROGRAMS CT ABDOMEN PELVIS WITH IV CONTRAST RAD - Semiurgent (Fast; most ED patients; some inpatients) 01/15/2024 6:51 AM DIRECTOR OF SUSTAINABILITY PROGRAMS CT CERVICAL SPINE WITHOUT IV CONTRAST RAD - Semiurgent (Fast; most ED patients; some inpatients) 01/15/2024 6:51 AM DIRECTOR OF SUSTAINABILITY PROGRAMS CT CHEST WITH IV CONTRAST RAD - Semiurgent (Fast; most ED patients; some inpatients) 01/15/2024 6:51 AM DIRECTOR OF SUSTAINABILITY PROGRAMS CT HEAD WITHOUT IV CONTRAST RAD - Semiurgent (Fast; most ED patients; some inpatients) 01/15/2024 6:51 AM DIRECTOR OF SUSTAINABILITY PROGRAMS DX HIP AND PELVIS LEFT 2-3 VIEWS RAD - Semiurgent (Fast; most ED patients; some inpatients) 01/15/2024 6:42 AM DIRECTOR OF SUSTAINABILITY PROGRAMS DX CHEST 1 VIEW RAD - Semiurgent (Fast; most ED patients; some inpatients) 01/15/2024 6:40 AM DIRECTOR OF SUSTAINABILITY PROGRAMS DX FEMUR RIGHT 2 VIEWS RAD - Semiurgent (Fast; most ED patients; some inpatients) 01/15/2024 6:40 AM DIRECTOR OF SUSTAINABILITY PROGRAMS TROPONIN T, BASELINE, 5TH GEN, P STAT 01/15/2024 5:58 AM DIRECTOR OF SUSTAINABILITY PROGRAMS HEPATIC FUNCTION PANEL, S STAT 01/15/2024 5:58 AM DIRECTOR OF SUSTAINABILITY PROGRAMS PROTHROMBIN TIME (PT), P STAT 01/15/2024 5:58 AM DIRECTOR OF SUSTAINABILITY PROGRAMS CBC WITH DIFFERENTIAL, B STAT 01/15/2024 5:58 AM DIRECTOR OF SUSTAINABILITY PROGRAMS LIPASE, S/P STAT 01/15/2024 5:58 AM DIRECTOR OF SUSTAINABILITY PROGRAMS LACTATE, B/P STAT 01/15/2024 5:58 AM DIRECTOR OF SUSTAINABILITY PROGRAMS CREATINE KINASE (CK), S STAT 01/15/2024 5:58 AM DIRECTOR OF SUSTAINABILITY PROGRAMS BASIC METABOLIC PANEL, S/P STAT 01/15/2024 5:58 AM DIRECTOR OF SUSTAINABILITY PROGRAMS ECG Routine 01/15/2024 5:42 AM DIRECTOR OF SUSTAINABILITY PROGRAMS documented in this encounter Results * (ABNORMAL) Hemoglobin (01/20/2024 8:57 AM DIRECTOR OF SUSTAINABILITY PROGRAMS) Pathologist [facility] Hemoglobin 8.6(L) 13.2 - 16.6 g/dL 01/20/2024 9:07 AM DIRECTOR OF SUSTAINABILITY PROGRAMS STMA Blood 01/20/2024 8:57 AM DIRECTOR OF SUSTAINABILITY PROGRAMS 01/20/2024 9:06 AM DIRECTOR OF SUSTAINABILITY PROGRAMS Lizeth IRWIN, P.A.-C. LAB BLOOD ADD-ON Final Result Performing Organization Address City/[facility]/ZIP Co de Phone Number [facility] [address] [place] [address] * SARS Coronavirus 2, PCR Rapid Symptomatic (01/20/2024 8:35 AM DIRECTOR OF SUSTAINABILITY PROGRAMS) [facility] SARS CoV-2, PCR, Rapid, V Undetected Undetected 01/20/2024 9:04 AM DIRECTOR OF SUSTAINABILITY PROGRAMS [facility] SARS Coronavirus 2, Rapid, Source Swab, Nasopharynx 01/20/2024 8:42 AM DIRECTOR OF SUSTAINABILITY PROGRAMS STMA Swab (Nasopharynx) 01/20/2024 8:35 AM DIRECTOR OF SUSTAINABILITY PROGRAMS 01/20/2024 8:42 AM DIRECTOR OF SUSTAINABILITY PROGRAMS Lzieth IRWIN, P.A.-C. LAB MICROBIOLOGY - GENERAL ORDERABLES Final Result Performing Organization Address City/[facility]/ZIP Co de Phone Number [facility] [address] [place] [address], [facility] [address] [place] [address] * Glucose, POCT (01/20/2024 7:40 AM DIRECTOR OF SUSTAINABILITY PROGRAMS) [facility] Glucose, POCT, B 115 70 - 140 mg/dL 01/20/2024 7:43 AM DIRECTOR OF SUSTAINABILITY PROGRAMS PCLX Blood 01/20/2024 7:40 AM DIRECTOR OF SUSTAINABILITY PROGRAMS 01/20/2024 7:43 AM DIRECTOR OF SUSTAINABILITY PROGRAMS us Unknown Provider LAB POCT ORDERABLES-MANUAL Cata l Result Performing Organization Address [facility]/ZIP Co de Phone Number [facility] [address] [place] [address], [facility] PCLX [facility] [address] [place] [address] * Glucose, POCT (01/20/2024 7:04 AM DIRECTOR OF SUSTAINABILITY PROGRAMS) Glucose, POCT, B 106 70 - 140 mg/dL 01/20/2024 7:06 AM DIRECTOR OF SUSTAINABILITY PROGRAMS PCLX Site Capillary 01/20/2024 7:06 AM DIRECTOR OF SUSTAINABILITY PROGRAMS PCLX Blood 01/20/2024 7:04 AM DIRECTOR OF SUSTAINABILITY PROGRAMS 01/20/2024 7:07 AM DIRECTOR OF SUSTAINABILITY PROGRAMS us Unknown Provider LAB POCT ORDERABLES-MANUAL Cata l Result Performing Organization Address [facility] Co de Phone Number [facility] [address] [place] [address], [place] [facility] [address] [place] [address] * (ABNORMAL) Glucose, POCT (01/19/2024 8:14 PM DIRECTOR OF SUSTAINABILITY PROGRAMS) Glucose, POCT, B 141(H) 70 - 140 mg/dL 01/19/2024 8:19 PM DIRECTOR OF SUSTAINABILITY PROGRAMS PCLX Site Capillary 01/19/2024 8:19 PM DIRECTOR OF SUSTAINABILITY PROGRAMS PCLX Blood 01/19/2024 8:14 PM DIRECTOR OF SUSTAINABILITY PROGRAMS 01/19/2024 8:19 PM DIRECTOR OF SUSTAINABILITY PROGRAMS us Unknown Provider LAB POCT ORDERABLES-MANUAL Cata l Result Performing Organization Address City/[facility]/ZIP Co de Phone Number [facility] [address] [place] [address], [facility] [address] [place] [address] * (ABNORMAL) Glucose, POCT (01/19/2024 4:30 PM DIRECTOR OF SUSTAINABILITY PROGRAMS) Glucose, POCT, B 141(H) 70 - 140 mg/dL 01/19/2024 4:32 PM DIRECTOR OF SUSTAINABILITY PROGRAMS PCLX Site Capillary 01/19/2024 4:32 PM DIRECTOR OF SUSTAINABILITY PROGRAMS PCLX Blood 01/19/2024 4:30 PM DIRECTOR OF SUSTAINABILITY PROGRAMS 01/19/2024 4:32 PM DIRECTOR OF SUSTAINABILITY PROGRAMS us Unknown Provider LAB POCT ORDERABLES-MANUAL Cata l Result Performing Organization Address [facility]/ZIP Co de Phone Number [facility] [address] [place] [address], [place] [facility] [address] [place] [address] * (ABNORMAL) Glucose, POCT (01/19/2024 11:31 AM DIRECTOR OF SUSTAINABILITY PROGRAMS) Glucose, POCT, B 178(H) 70 - 140 mg/dL 01/19/2024 11:32 AM DIRECTOR OF SUSTAINABILITY PROGRAMS PCLX Site Capillary 01/19/2024 11:32 AM DIRECTOR OF SUSTAINABILITY PROGRAMS PCLX Blood 01/19/2024 11:3 1 AM DIRECTOR OF SUSTAINABILITY PROGRAMS 01/19/2024 11:33 AM DIRECTOR OF SUSTAINABILITY PROGRAMS us Unknown Provider LAB POCT ORDERABLES-MANUAL Cata l Result Performing Organization Address [facility] Co de Phone Number [facility] [address] [place] [address], [place] [facility] [address] [place] [address] * Glucose, POCT (01/19/2024 7:50 AM DIRECTOR OF SUSTAINABILITY PROGRAMS) Glucose, POCT, B 103 70 - 140 mg/dL 01/19/2024 7:53 AM DIRECTOR OF SUSTAINABILITY PROGRAMS PCLX Site Capillary 01/19/2024 7:53 AM DIRECTOR OF SUSTAINABILITY PROGRAMS PCLX Blood 01/19/2024 7:50 AM DIRECTOR OF SUSTAINABILITY PROGRAMS 01/19/2024 7:53 AM DIRECTOR OF SUSTAINABILITY PROGRAMS us Unknown Provider LAB POCT ORDERABLES-MANUAL Cata l Result Performing Organization Address City/[facility]/ZIP Co de Phone Number [facility] [address] [place] [address], [place] PCLX [facility] POC [address] [place] [address] * Glucose, POCT (01/18/2024 9:04 PM DIRECTOR OF SUSTAINABILITY PROGRAMS) Glucose, POCT, B 99 70 - 140 mg/dL 01/18/2024 9:21 PM DIRECTOR OF SUSTAINABILITY PROGRAMS PCLX Site Capillary 01/18/2024 9:21 PM DIRECTOR OF SUSTAINABILITY PROGRAMS PCLX Last Intake 2-3 hours 01/18/2024 9:21 PM DIRECTOR OF SUSTAINABILITY PROGRAMS PCLX Blood 01/18/2024 9:04 PM DIRECTOR OF SUSTAINABILITY PROGRAMS 01/18/2024 9:21 PM DIRECTOR OF SUSTAINABILITY PROGRAMS us Unknown Provider LAB POCT ORDERABLES-MANUAL Cata l Result Performing Organization Address [facility]/ZIP Co de Phone Number [facility] [address] [place] [address], [place] [facility] POC [address] [place] [address] * Glucose, POCT (01/18/2024 6:11 PM DIRECTOR OF SUSTAINABILITY PROGRAMS) Glucose, POCT, B 109 70 - 140 mg/dL 01/18/2024 6:13 PM DIRECTOR OF SUSTAINABILITY PROGRAMS PCLX Site Capillary 01/18/2024 6:13 PM DIRECTOR OF SUSTAINABILITY PROGRAMS PCLX Blood 01/18/2024 6:11 PM DIRECTOR OF SUSTAINABILITY PROGRAMS 01/18/2024 6:13 PM DIRECTOR OF SUSTAINABILITY PROGRAMS us Unknown Provider LAB POCT ORDERABLES-MANUAL Edit ed Result - Final Performing Organization Address [facility] Co de Phone Number [facility] [address] [place] [address], [place] [facility] POC [address] [place] [address] * Glucose, POCT (01/18/2024 4:33 PM DIRECTOR OF SUSTAINABILITY PROGRAMS) Glucose, POCT, B 83 70 - 140 mg/dL 01/18/2024 4:49 PM DIRECTOR OF SUSTAINABILITY PROGRAMS PCLX Site Capillary 01/18/2024 4:49 PM DIRECTOR OF SUSTAINABILITY PROGRAMS PCLX Blood 01/18/2024 4:33 PM DIRECTOR OF SUSTAINABILITY PROGRAMS 01/18/2024 4:50 PM DIRECTOR OF SUSTAINABILITY PROGRAMS us Unknown Provider LAB POCT ORDERABLES-MANUAL Cata l Result Performing Organization Address City/[facility]/ZIP Co de Phone Number [facility] [address] [place] [address], [facility]X [facility] POC [address] [place] [address] * Glucose, POCT (01/18/2024 11:55 AM DIRECTOR OF SUSTAINABILITY PROGRAMS) Glucose, POCT, B 133 70 - 140 mg/dL 01/18/2024 11:59 AM DIRECTOR OF SUSTAINABILITY PROGRAMS PCLX Site Capillary 01/18/2024 11:59 AM DIRECTOR OF SUSTAINABILITY PROGRAMS PCLX Blood 01/18/2024 11:5 5 AM DIRECTOR OF SUSTAINABILITY PROGRAMS 01/18/2024 11:59 AM DIRECTOR OF SUSTAINABILITY PROGRAMS us Unknown Provider LAB POCT ORDERABLES-MANUAL Cata l Result Performing Organization Address City/[facility]/ZIP Co de Phone Number [facility] [address] [place] [address], [facility] POC [address] [place] [address] * Glucose, POCT (01/18/2024 8:05 AM DIRECTOR OF SUSTAINABILITY PROGRAMS) Pathologist [facility] Glucose, POCT, B 111 70 - 140 mg/dL 01/18/2024 8:22 AM DIRECTOR OF SUSTAINABILITY PROGRAMS PCLX Site Capillary 01/18/2024 8:22 AM DIRECTOR OF SUSTAINABILITY PROGRAMS PCLX Blood 01/18/2024 8:05 AM DIRECTOR OF SUSTAINABILITY PROGRAMS 01/18/2024 8:23 AM DIRECTOR OF SUSTAINABILITY PROGRAMS us Unknown Provider LAB POCT ORDERABLES-MANUAL Cata l Result Performing Organization Address City/[facility]/ZIP Co de Phone Number [facility] [address] [place] [address], [facility] POC [address] [place] [address] * (ABNORMAL) Basic Metabolic Panel (01/18/2024 4:17 AM DIRECTOR OF SUSTAINABILITY PROGRAMS) Potassium, S 4.9 3.6 - 5.2 mmol/L 01/18/2024 5:34 AM DIRECTOR OF SUSTAINABILITY PROGRAMS DTL Sodium, S 137 135 - 145 mmol/L 01/18/2024 5:34 AM DIRECTOR OF SUSTAINABILITY PROGRAMS DTL Chloride, S 103 98 - 107 mmol/L 01/18/2024 5:34 AM DIRECTOR OF SUSTAINABILITY PROGRAMS DTL Bicarbonate, S 26 22 - 29 mmol/L 01/18/2024 5:34 AM DIRECTOR OF SUSTAINABILITY PROGRAMS DTL Anion Gap 8 7 - 15 01/18/2024 5:34 AM DIRECTOR OF SUSTAINABILITY PROGRAMS DTL BUN (Blood Urea Nitrogen), S 35(H) 8 - 24 mg/dL 01/18/2024 5:34 AM DIRECTOR OF SUSTAINABILITY PROGRAMS DTL Creatinine 1.04 0.74 - 1.35 mg/dL 01/18/2024 5:34 AM DIRECTOR OF SUSTAINABILITY PROGRAMS DTL Estimated GFR (eGFR) 83 >=60 mL/min/BSA 01/18/2024 5:34 AM DIRECTOR OF SUSTAINABILITY PROGRAMS DTL Comment: Estimated GFR calculated using the 2020 CKD_EPI creatinine equation. Calcium, Total, S 9.0 8.6 - 10.0 mg/dL 01/18/2024 5:34 AM DIRECTOR OF SUSTAINABILITY PROGRAMS DTL Glucose, S 104 70 - 140 mg/dL 01/18/2024 5:34 AM DIRECTOR OF SUSTAINABILITY PROGRAMS DTL Blood (Blood, Venous) 01/18/2024 4:17 AM DIRECTOR OF SUSTAINABILITY PROGRAMS 01/18/2024 5:18 AM DIRECTOR OF SUSTAINABILITY PROGRAMS us Flako Loaiza M.D. LAB BLOOD ADD-ON Final Res ult [address] [address], [address] [address] * (ABNORMAL) CBC without Differential (01/18/2024 4:17 AM DIRECTOR OF SUSTAINABILITY PROGRAMS) Hemoglobin 8.8(L) 13.2 - 16.6 g/dL 01/18/2024 5:34 AM DIRECTOR OF SUSTAINABILITY PROGRAMS DTL Hematocrit 26.6(L) 38.3 - 48.6 % 01/18/2024 5:34 AM DIRECTOR OF SUSTAINABILITY PROGRAMS DTL Erythrocytes 2.97(L) 4.35 - 5.65 x10(12)/L 01/18/2024 5:34 AM DIRECTOR OF SUSTAINABILITY PROGRAMS DTL MCV 89.6 78.2 - 97.9 fL 01/18/2024 5:34 AM DIRECTOR OF SUSTAINABILITY PROGRAMS DTL RBC Distrib Width 15.9(H) 11.8 - 14.5 % 01/18/2024 5:34 AM DIRECTOR OF SUSTAINABILITY PROGRAMS DTL Platelet Count 243 135 - 317 x10(9)/L 01/18/2024 5:34 AM DIRECTOR OF SUSTAINABILITY PROGRAMS DTL Leukocytes 15.3(H) 3.4 - 9.6 x10(9)/L 01/18/2024 5:34 AM DIRECTOR OF SUSTAINABILITY PROGRAMS DTL Blood (Blood, Venous) 01/18/2024 4:17 AM DIRECTOR OF SUSTAINABILITY PROGRAMS 01/18/2024 5:10 AM DIRECTOR OF SUSTAINABILITY PROGRAMS Flako Loaiza M.D. LAB BLOOD ADD-ON Final Res ult Performing Organization Address [facility] de Phone Number [facility] [address] [place] [address] * (ABNORMAL) Alkaline Phosphatase (01/18/2024 4:17 AM DIRECTOR OF SUSTAINABILITY PROGRAMS) Alkaline Phosphatase, S 137(H) 40 - 129 U/L 01/18/2024 5:34 AM DIRECTOR OF SUSTAINABILITY PROGRAMS DTL Blood (Blood, Venous) 01/18/2024 4:17 AM DIRECTOR OF SUSTAINABILITY PROGRAMS 01/18/2024 5:18 AM DIRECTOR OF SUSTAINABILITY PROGRAMS Flako Loaiza M.D. LAB BLOOD ADD-ON Final Res ult Performing Organization Address [facility] de Phone Number [facility] [address] [place], [place] [id number] [place] [address] [address] [place] [address] * Glucose, POCT (01/18/2024 1:44 AM DIRECTOR OF SUSTAINABILITY PROGRAMS) Glucose, POCT, B 111 70 - 140 mg/dL 01/18/2024 1:46 AM DIRECTOR OF SUSTAINABILITY PROGRAMS PCLX Site Capillary 01/18/2024 1:46 AM DIRECTOR OF SUSTAINABILITY PROGRAMS PCLX Blood 01/18/2024 1:44 AM DIRECTOR OF SUSTAINABILITY PROGRAMS 01/18/2024 1:46 AM DIRECTOR OF SUSTAINABILITY PROGRAMS us Unknown Provider LAB POCT ORDERABLES-MANUAL Cata l Result Performing Organization Address [facility] Co de Phone Number [facility]OC [facility] [address] [place] [address], [facility] POC [address] [place] [address] * Glucose, POCT (01/17/2024 8:35 PM DIRECTOR OF SUSTAINABILITY PROGRAMS) Pathologist [facility] Glucose, POCT, B 109 70 - 140 mg/dL 01/17/2024 8:38 PM DIRECTOR OF SUSTAINABILITY PROGRAMS PCLX Site Capillary 01/17/2024 8:38 PM DIRECTOR OF SUSTAINABILITY PROGRAMS PCLX Last Intake 3-4 hours 01/17/2024 8:38 PM DIRECTOR OF SUSTAINABILITY PROGRAMS PCLX Blood 01/17/2024 8:35 PM DIRECTOR OF SUSTAINABILITY PROGRAMS 01/17/2024 8:38 PM DIRECTOR OF SUSTAINABILITY PROGRAMS Unknown Provider LAB POCT ORDERABLES-MANUAL Cata l Result Performing Organization Address [facility] de Phone Number [facility] [address] [place] [address], [facility] POC [address] [place] [address] * Potassium (01/17/2024 5:03 PM DIRECTOR OF SUSTAINABILITY PROGRAMS) [facility] Potassium, P 5.0 3.6 - 5.2 mmol/L 01/17/2024 5:19 PM DIRECTOR OF SUSTAINABILITY PROGRAMS ST[facility] Blood (Blood, Venous) 01/17/2024 5:03 PM DIRECTOR OF SUSTAINABILITY PROGRAMS 01/17/2024 5:07 PM DIRECTOR OF SUSTAINABILITY PROGRAMS us Daljit Zavala M.D. LAB BLOOD ADD-ON Final Resul t Performing Organization Address [facility]/ZIP Co de Phone Number [facility] [address] [place] [address], [facility] STMA [facility] [address] [place] [address] * (ABNORMAL) Hemoglobin (01/17/2024 5:03 PM DIRECTOR OF SUSTAINABILITY PROGRAMS) [facility] Hemoglobin 8.5(L) 13.2 - 16.6 g/dL 01/17/2024 5:09 PM DIRECTOR OF SUSTAINABILITY PROGRAMS [facility] Blood (Blood, Venous) 01/17/2024 5:03 PM DIRECTOR OF SUSTAINABILITY PROGRAMS 01/17/2024 5:07 PM DIRECTOR OF SUSTAINABILITY PROGRAMS us Daljit Zavala M.D. LAB BLOOD ADD-ON Final Resul t Performing Organization Address City/[facility]/ZIP Co de Phone Number [facility] [address] [place] [address], [facility] STMA [facility] [address] [place] [address] * (ABNORMAL) Glucose, POCT (01/17/2024 5:01 PM DIRECTOR OF SUSTAINABILITY PROGRAMS) Glucose, POCT, B 141(H) 70 - 140 mg/dL 01/17/2024 5:04 PM DIRECTOR OF SUSTAINABILITY PROGRAMS PCLX Site Capillary 01/17/2024 5:04 PM DIRECTOR OF SUSTAINABILITY PROGRAMS PCLX Last Intake 3-4 hours 01/17/2024 5:04 PM DIRECTOR OF SUSTAINABILITY PROGRAMS PCLX Blood 01/17/2024 5:01 PM DIRECTOR OF SUSTAINABILITY PROGRAMS 01/17/2024 5:04 PM DIRECTOR OF SUSTAINABILITY PROGRAMS us Unknown Provider LAB POCT ORDERABLES-MANUAL Cata l Result Performing Organization Address [facility] Co de Phone Number POC [facility] [address] [place] [address], [facility] PCLX [facility] [address] [place] [address] * Transfuse Red Blood Cells : (01/17/2024 12:51 PM DIRECTOR OF SUSTAINABILITY PROGRAMS) us Daljit Zavala M.D. BLOOD TRANSFUSION ORDERABLES Final Result * Transfuse Red Blood Cells : , 1 Units (01/17/2024 12:51 PM DIRECTOR OF SUSTAINABILITY PROGRAMS) us Daljit Zavala M.D. BLOOD TRANSFUSION ORDERABLES Final Result * (ABNORMAL) Glucose, POCT (01/17/2024 11:37 AM DIRECTOR OF SUSTAINABILITY PROGRAMS) Glucose, POCT, B 172(H) 70 - 140 mg/dL 01/17/2024 11:41 AM DIRECTOR OF SUSTAINABILITY PROGRAMS PCLX Site Capillary 01/17/2024 11:41 AM DIRECTOR OF SUSTAINABILITY PROGRAMS PCLX Last Intake 2-3 hours 01/17/2024 11:41 AM DIRECTOR OF SUSTAINABILITY PROGRAMS PCLX Blood 01/17/2024 11:3 7 AM DIRECTOR OF SUSTAINABILITY PROGRAMS 01/17/2024 11:41 AM DIRECTOR OF SUSTAINABILITY PROGRAMS us Unknown Provider LAB POCT ORDERABLES-MANUAL Cata l Result Performing Organization Address City/[facility]/ZIP Co de Phone Number [facility]OC [facility] [address] [place] [address], [facility] PCLX [facility] POC [address] [place] [address] * (ABNORMAL) Glucose, POCT (01/17/2024 7:51 AM DIRECTOR OF SUSTAINABILITY PROGRAMS) Glucose, POCT, B 169(H) 70 - 140 mg/dL 01/17/2024 7:53 AM DIRECTOR OF SUSTAINABILITY PROGRAMS PCLX Site Capillary 01/17/2024 7:53 AM DIRECTOR OF SUSTAINABILITY PROGRAMS PCLX Last Intake > 4 hours 01/17/2024 7:53 AM DIRECTOR OF SUSTAINABILITY PROGRAMS PCLX Blood 01/17/2024 7:51 AM DIRECTOR OF SUSTAINABILITY PROGRAMS 01/17/2024 7:54 AM DIRECTOR OF SUSTAINABILITY PROGRAMS us Unknown Provider LAB POCT ORDERABLES-MANUAL Cata l Result Performing Organization Address [facility] Co de Phone Number [facility]OC [facility] [address] [place] [address], [facility] PCLX [facility] POC [address] [place] [address] * (ABNORMAL) Basic Metabolic Panel (01/17/2024 6:08 AM DIRECTOR OF SUSTAINABILITY PROGRAMS) Potassium, S 5.7(H) 3.6 - 5.2 mmol/L 01/17/2024 7:54 AM DIRECTOR OF SUSTAINABILITY PROGRAMS DTL Sodium, S 139 135 - 145 mmol/L 01/17/2024 7:54 AM DIRECTOR OF SUSTAINABILITY PROGRAMS DTL Chloride, S 103 98 - 107 mmol/L 01/17/2024 7:54 AM DIRECTOR OF SUSTAINABILITY PROGRAMS DTL Bicarbonate, S 23 22 - 29 mmol/L 01/17/2024 7:54 AM DIRECTOR OF SUSTAINABILITY PROGRAMS DTL Anion Gap 13 7 - 15 01/17/2024 7:54 AM DIRECTOR OF SUSTAINABILITY PROGRAMS DTL BUN (Blood Urea Nitrogen), S 33(H) 8 - 24 mg/dL 01/17/2024 7:54 AM DIRECTOR OF SUSTAINABILITY PROGRAMS DTL Creatinine 1.04 0.74 - 1.35 mg/dL 01/17/2024 7:54 AM DIRECTOR OF SUSTAINABILITY PROGRAMS DTL Estimated GFR (eGFR) 83 >=60 mL/min/BSA 01/17/2024 7:54 AM DIRECTOR OF SUSTAINABILITY PROGRAMS DTL Comment: Estimated GFR calculated using the 2020 CKD_EPI creatinine equation. Calcium, Total, S 8.5(L) 8.6 - 10.0 mg/dL 01/17/2024 7:54 AM DIRECTOR OF SUSTAINABILITY PROGRAMS DTL Glucose, S 178(H) 70 - 140 mg/dL 01/17/2024 7:54 AM DIRECTOR OF SUSTAINABILITY PROGRAMS DTL Blood (Blood, Venous) 01/17/2024 6:08 AM DIRECTOR OF SUSTAINABILITY PROGRAMS 01/17/2024 6:40 AM DIRECTOR OF SUSTAINABILITY PROGRAMS us Flako Loaiza M.D. LAB BLOOD ADD-ON Final Res ult [facility] [address] [place] [address], [facility] [address] [place] [address] * (ABNORMAL) CBC without Differential (01/17/2024 6:08 AM DIRECTOR OF SUSTAINABILITY PROGRAMS) Hemoglobin 7.6(L) 13.2 - 16.6 g/dL 01/17/2024 6:32 AM DIRECTOR OF SUSTAINABILITY PROGRAMS DTL Hematocrit 23.5(L) 38.3 - 48.6 % 01/17/2024 6:32 AM DIRECTOR OF SUSTAINABILITY PROGRAMS DTL Erythrocytes 2.61(L) 4.35 - 5.65 x10(12)/L 01/17/2024 6:32 AM DIRECTOR OF SUSTAINABILITY PROGRAMS DTL MCV 90.0 78.2 - 97.9 fL 01/17/2024 6:32 AM DIRECTOR OF SUSTAINABILITY PROGRAMS DTL RBC Distrib Width 14.3 11.8 - 14.5 % 01/17/2024 6:32 AM DIRECTOR OF SUSTAINABILITY PROGRAMS DTL Platelet Count 226 135 - 317 x10(9)/L 01/17/2024 6:32 AM DIRECTOR OF SUSTAINABILITY PROGRAMS DTL Leukocytes 15.2(H) 3.4 - 9.6 x10(9)/L 01/17/2024 6:32 AM DIRECTOR OF SUSTAINABILITY PROGRAMS DTL Blood (Blood, Venous) 01/17/2024 6:08 AM DIRECTOR OF SUSTAINABILITY PROGRAMS 01/17/2024 6:26 AM DIRECTOR OF SUSTAINABILITY PROGRAMS us Flako Loaiza M.D. LAB BLOOD ADD-ON Final Res ult Performing Organization Address City/[facility]/ZIP Co de Phone Number [facility] [address] [place] [address], [facility] [address] [place] [address] * (ABNORMAL) Alkaline Phosphatase (01/17/2024 6:08 AM DIRECTOR OF SUSTAINABILITY PROGRAMS) Alkaline Phosphatase, S 132(H) 40 - 129 U/L 01/17/2024 7:54 AM DIRECTOR OF SUSTAINABILITY PROGRAMS DTL Blood (Blood, Venous) 01/17/2024 6:08 AM DIRECTOR OF SUSTAINABILITY PROGRAMS 01/17/2024 6:40 AM DIRECTOR OF SUSTAINABILITY PROGRAMS us Flako Loaiza M.D. LAB BLOOD ADD-ON Final Res ult Performing Organization Address [facility] Co de Phone Number [facility] [address] [place] [address], [facility] [address] [place] [address] * (ABNORMAL) Glucose, POCT (01/17/2024 2:09 AM DIRECTOR OF SUSTAINABILITY PROGRAMS) Pathologist [facility] Glucose, POCT, B 232(H) 70 - 140 mg/dL 01/17/2024 2:15 AM DIRECTOR OF SUSTAINABILITY PROGRAMS PCLX Site Capillary 01/17/2024 2:15 AM DIRECTOR OF SUSTAINABILITY PROGRAMS PCLX Last Intake 2-3 hours 01/17/2024 2:15 AM DIRECTOR OF SUSTAINABILITY PROGRAMS PCLX Blood 01/17/2024 2:09 AM DIRECTOR OF SUSTAINABILITY PROGRAMS 01/17/2024 2:15 AM DIRECTOR OF SUSTAINABILITY PROGRAMS us Unknown Provider LAB POCT ORDERABLES-MANUAL Cata l Result [facility] [address] [place] [address], [facility] PCLX [facility] POC [address] [place] [address] * (ABNORMAL) Glucose, POCT (01/16/2024 8:16 PM DIRECTOR OF SUSTAINABILITY PROGRAMS) Glucose, POCT, B 213(H) 70 - 140 mg/dL 01/16/2024 9:15 PM DIRECTOR OF SUSTAINABILITY PROGRAMS PCLX Last Intake 3-4 hours 01/16/2024 9:15 PM DIRECTOR OF SUSTAINABILITY PROGRAMS PCLX Blood 01/16/2024 8:16 PM DIRECTOR OF SUSTAINABILITY PROGRAMS 01/16/2024 9:15 PM DIRECTOR OF SUSTAINABILITY PROGRAMS us Unknown Provider LAB POCT ORDERABLES-MANUAL Cata l Result Performing Organization Address City/[facility]/ZIP Co de Phone Number [facility] [address] [place] [address], [facility] PCLX [facility] POC [address] [place] [address] * (ABNORMAL) Glucose, POCT (01/16/2024 5:45 PM DIRECTOR OF SUSTAINABILITY PROGRAMS) Glucose, POCT, B 210(H) 70 - 140 mg/dL 01/16/2024 5:47 PM DIRECTOR OF SUSTAINABILITY PROGRAMS PCLX Blood 01/16/2024 5:45 PM DIRECTOR OF SUSTAINABILITY PROGRAMS 01/16/2024 5:48 PM DIRECTOR OF SUSTAINABILITY PROGRAMS us Unknown Provider LAB POCT ORDERABLES-MANUAL Cata l Result Performing Organization Address [facility] Co de Phone Number [facility] [address] [place] [address], [place] PCLX [facility] POC [address] [place] [address] * (ABNORMAL) Glucose, POCT (01/16/2024 3:15 PM DIRECTOR OF SUSTAINABILITY PROGRAMS) Glucose, POCT, B 189(H) 70 - 140 mg/dL 01/16/2024 4:01 PM DIRECTOR OF SUSTAINABILITY PROGRAMS PCLX Site Capillary 01/16/2024 4:01 PM DIRECTOR OF SUSTAINABILITY PROGRAMS PCLX Blood 01/16/2024 3:15 PM DIRECTOR OF SUSTAINABILITY PROGRAMS 01/16/2024 4:01 PM DIRECTOR OF SUSTAINABILITY PROGRAMS us Unknown Provider LAB POCT ORDERABLES-MANUAL Cata l Result Performing Organization Address City/[facility]/ZIP Co de Phone Number [facility] [address] [place] [address], [facility] PCLX [facility] POC [address] [place] [address] * DX Femur Right 2 Views (01/16/2024 3:00 PM DIRECTOR OF SUSTAINABILITY PROGRAMS) Anatomical Region Laterality Modality Lower Extremity, Femur, Musc uloskeletal RST LOS, Musculoskeletal ARZ LOS, Muskuloskeletal FLA LOS Right Digit al Radiography Impressions 01/16/2024 3:08 PM DIRECTOR OF SUSTAINABILITY PROGRAMS Metallic plate and multiscrew fixation of the periprosthetic femoral fracture. No gross hardware failure. Drains. Narrative 01/16/2024 3:08 PM DIRECTOR OF SUSTAINABILITY PROGRAMS EXAM: DX FEMUR RIGHT 2 VIEWS Procedure Note Boyd Kwong D.O. - 01/16/2024 EXAM: DX FEMUR RIGHT 2 VIEWS IMPRESSION: Metallic plate and multiscrew fixation of the periprosthetic femoralfracture. No gross hardware failure. Drains. Ester Vann M.D. [facility] PRO CEDURES Final Result * Patient Status (01/16/2024 1:17 PM DIRECTOR OF SUSTAINABILITY PROGRAMS) Temperature 36.7 37.0 deg C 01/16/2024 1:17 PM DIRECTOR OF SUSTAINABILITY PROGRAMS [facility] FIO2 0.38 0.21=AIR 01/16/2024 1:17 PM DIRECTOR OF SUSTAINABILITY PROGRAMS [facility] Blood 01/16/2024 1:17 PM DIRECTOR OF SUSTAINABILITY PROGRAMS 01/16/2024 1:17 PM DIRECTOR OF SUSTAINABILITY PROGRAMS Mariel Beckman R.N. LAB BLOOD NON ADD-ON Fi nal Result [facility] [address] [place] [address], [facility] STMA [facility] [address] [place] [address] * (ABNORMAL) Glucose, Whole Blood (01/16/2024 1:17 PM DIRECTOR OF SUSTAINABILITY PROGRAMS) Glucose 176(H) 70 - 140 mg/dL 01/16/2024 1:19 PM DIRECTOR OF SUSTAINABILITY PROGRAMS [facility] Blood (Blood, Arterial Line) 01/16/2024 1:17 PM DIRECTOR OF SUSTAINABILITY PROGRAMS 01/16/2024 1:17 PM DIRECTOR OF SUSTAINABILITY PROGRAMS us Kaye Aguilar M.D. LAB BLOOD ADD-ON Final R esult Performing Organization Address City/[facility]/ZIP Co de Phone Number [facility] [address] [place] [address], [facility] [address] [place] [address] * Potassium, Blood (01/16/2024 1:17 PM DIRECTOR OF SUSTAINABILITY PROGRAMS) Potassium, B 4.0 3.6 - 5.2 mmol/L 01/16/2024 1:19 PM DIRECTOR OF SUSTAINABILITY PROGRAMS [facility] Blood (Blood, Arterial Line) 01/16/2024 1:17 PM DIRECTOR OF SUSTAINABILITY PROGRAMS 01/16/2024 1:17 PM DIRECTOR OF SUSTAINABILITY PROGRAMS us Kaye Aguilar M.D. LAB BLOOD NON ADD-ON Fin al Result Performing Organization Address [facility]/ZIP Co de Phone Number [facility] [address] [place] [address], [facility] [address] [place] [address] * Sodium, B (01/16/2024 1:17 PM DIRECTOR OF SUSTAINABILITY PROGRAMS) Sodium, B 135 135 - 145 mmol/L 01/16/2024 1:19 PM DIRECTOR OF SUSTAINABILITY PROGRAMS [facility] Blood (Blood, Arterial Line) 01/16/2024 1:17 PM DIRECTOR OF SUSTAINABILITY PROGRAMS 01/16/2024 1:17 PM DIRECTOR OF SUSTAINABILITY PROGRAMS us Kaye Aguilar M.D. LAB BLOOD NON ADD-ON Fin al Result Performing Organization Address City/[facility]/ZIP Co de Phone Number [facility] [address] [place] [address], [facility] [address] [place] [address] * (ABNORMAL) Calcium, Ionized (01/16/2024 1:17 PM DIRECTOR OF SUSTAINABILITY PROGRAMS) Calcium, Ionized, B 4.33(L) 4.65 - 5.30 mg/dL 01/16/2024 1:19 PM DIRECTOR OF SUSTAINABILITY PROGRAMS [facility] Blood (Blood, Arterial Line) 01/16/2024 1:17 PM DIRECTOR OF SUSTAINABILITY PROGRAMS 01/16/2024 1:17 PM DIRECTOR OF SUSTAINABILITY PROGRAMS Kaye Aguilar M.D. LAB BLOOD NON ADD-ON Fin al Result [facility] [address] [place] [address], [facility] [address] [place] [address] * (ABNORMAL) Blood Gas with Coox, Arterial (01/16/2024 1:17 PM DIRECTOR OF SUSTAINABILITY PROGRAMS) pO2 164(H) 83 - 108 mm Hg 01/16/2024 1:19 PM DIRECTOR OF SUSTAINABILITY PROGRAMS [facility] pCO2 37 35 - 48 mm Hg 01/16/2024 1:19 PM DIRECTOR OF SUSTAINABILITY PROGRAMS [facility] pH 7.39 7.35 - 7.45 pH 01/16/2024 1:19 PM DIRECTOR OF SUSTAINABILITY PROGRAMS [facility] Base Excess -3(L) -2 - 3 mmol/L 01/16/2024 1:19 PM DIRECTOR OF SUSTAINABILITY PROGRAMS [facility] HCO3 22 22 - 26 mmol/L 01/16/2024 1:19 PM DIRECTOR OF SUSTAINABILITY PROGRAMS [facility] Hemoglobin, B 8.2(L) 13.2 - 16.6 g/dL 01/16/2024 1:19 PM DIRECTOR OF SUSTAINABILITY PROGRAMS [facility] O2Hb 97.0 94.0 - 98.0 % 01/16/2024 1:19 PM DIRECTOR OF SUSTAINABILITY PROGRAMS [facility] COHb 2.4 <3.0 % 01/16/2024 1:19 PM DIRECTOR OF SUSTAINABILITY PROGRAMS [facility] MetHb <1.0 <1.5 % 01/16/2024 1:19 PM DIRECTOR OF SUSTAINABILITY PROGRAMS [facility] CtO2 11.5(L) 18.0 - 21.0 vol % 01/16/2024 1:19 PM DIRECTOR OF SUSTAINABILITY PROGRAMS [facility] Blood (Blood, Arterial Line) 01/16/2024 1:17 PM DIRECTOR OF SUSTAINABILITY PROGRAMS 01/16/2024 1:17 PM DIRECTOR OF SUSTAINABILITY PROGRAMS Kaye Aguilar M.D. LAB BLOOD NON ADD-ON Fin al Result Performing Organization Address [facility] Co de Phone Number [facility] [address] [place] [address] * Transfuse autologous RBC (Cell Salvage) : (01/16/2024 12:49 PM DIRECTOR OF SUSTAINABILITY PROGRAMS) Kaye Aguilar M.D. BLOOD TRANSFUSION ORDERA BLES Final Result * [place] Fluoro Less Than 1 Hour (01/16/2024 12:43 PM DIRECTOR OF SUSTAINABILITY PROGRAMS) Narrative 152 HOS LOS RST - 01/16/2024 12:47 PM DIRECTOR OF SUSTAINABILITY PROGRAMS This exam does not require a radiologist review or interpretation. Please refer to the patient's medical record on this date for clinical details. us Ester Vann M.D. IMG FLUOROSCOPY PROCEDURES Final Result Performing Organization Address [facility] Co de Phone Number 152 [facility] LOS RST * Patient Status (01/16/2024 12:02 PM DIRECTOR OF SUSTAINABILITY PROGRAMS) Temperature 36.2 37.0 deg C 01/16/2024 12:02 PM DIRECTOR OF SUSTAINABILITY PROGRAMS STMA FIO2 0.33 0.21=AIR 01/16/2024 12:02 PM DIRECTOR OF SUSTAINABILITY PROGRAMS STMA Blood 01/16/2024 12:0 2 PM DIRECTOR OF SUSTAINABILITY PROGRAMS 01/16/2024 12:02 PM DIRECTOR OF SUSTAINABILITY PROGRAMS us Mariel Beckman R.N. LAB BLOOD NON ADD-ON Fi nal Result Performing Organization Address City/[facility]/ZIP Co de Phone Number [facility] [address] [place], [place] [phone] [place] [address] 200 [place] [address] * (ABNORMAL) Glucose, Whole Blood (01/16/2024 12:02 PM DIRECTOR OF SUSTAINABILITY PROGRAMS) Glucose 197(H) 70 - 140 mg/dL 01/16/2024 12:04 PM DIRECTOR OF SUSTAINABILITY PROGRAMS STMA Blood (Blood, Arterial Line) 01/16/2024 12:02 PM DIRECTOR OF SUSTAINABILITY PROGRAMS 01/16/2024 12:02 PM DIRECTOR OF SUSTAINABILITY PROGRAMS us Kaye Aguilar M.D. LAB BLOOD ADD-ON Final R esult [facility] [address] [place] [address], [facility] [address] [place] [address] * Potassium, Blood (01/16/2024 12:02 PM DIRECTOR OF SUSTAINABILITY PROGRAMS) Potassium, B 4.4 3.6 - 5.2 mmol/L 01/16/2024 12:05 PM DIRECTOR OF SUSTAINABILITY PROGRAMS STMA Blood (Blood, Arterial Line) 01/16/2024 12:02 PM DIRECTOR OF SUSTAINABILITY PROGRAMS 01/16/2024 12:02 PM DIRECTOR OF SUSTAINABILITY PROGRAMS us Kaye Aguilar M.D. LAB BLOOD NON ADD-ON Fin al Result Performing Organization Address City/[facility]/ZIP Co de Phone Number [facility] [address] [place] [address], [facility] [address] [place] [address] * (ABNORMAL) Sodium, B (01/16/2024 12:02 PM DIRECTOR OF SUSTAINABILITY PROGRAMS) Sodium, B 134(L) 135 - 145 mmol/L 01/16/2024 12:04 PM DIRECTOR OF SUSTAINABILITY PROGRAMS STMA Blood (Blood, Arterial Line) 01/16/2024 12:02 PM DIRECTOR OF SUSTAINABILITY PROGRAMS 01/16/2024 12:02 PM DIRECTOR OF SUSTAINABILITY PROGRAMS us Kaye Aguilar M.D. LAB BLOOD NON ADD-ON Fin al Result [facility] [address] [place] [address], [facility] [address] [place] [address] * Calcium, Ionized (01/16/2024 12:02 PM DIRECTOR OF SUSTAINABILITY PROGRAMS) Calcium, Ionized, B 4.65 4.65 - 5.30 mg/dL 01/16/2024 12:05 PM DIRECTOR OF SUSTAINABILITY PROGRAMS STMA Blood (Blood, Arterial Line) 01/16/2024 12:02 PM DIRECTOR OF SUSTAINABILITY PROGRAMS 01/16/2024 12:02 PM DIRECTOR OF SUSTAINABILITY PROGRAMS Kaye Aguilar M.D. LAB BLOOD NON ADD-ON Fin al Result [facility] [address] [place] [address], [address] [address] * (ABNORMAL) Blood Gas with Coox, Arterial (01/16/2024 12:02 PM DIRECTOR OF SUSTAINABILITY PROGRAMS) pO2 165(H) 83 - 108 mm Hg 01/16/2024 12:04 PM DIRECTOR OF SUSTAINABILITY PROGRAMS STMA pCO2 39 35 - 48 mm Hg 01/16/2024 12:04 PM DIRECTOR OF SUSTAINABILITY PROGRAMS STMA pH 7.41 7.35 - 7.45 pH 01/16/2024 12:04 PM DIRECTOR OF SUSTAINABILITY PROGRAMS STMA Base Excess 0 -2 - 3 mmol/L 01/16/2024 12:04 PM DIRECTOR OF SUSTAINABILITY PROGRAMS STMA HCO3 25 22 - 26 mmol/L 01/16/2024 12:04 PM DIRECTOR OF SUSTAINABILITY PROGRAMS STMA Hemoglobin, B 8.2(L) 13.2 - 16.6 g/dL 01/16/2024 12:04 PM DIRECTOR OF SUSTAINABILITY PROGRAMS STMA O2Hb 97.2 94.0 - 98.0 % 01/16/2024 12:04 PM DIRECTOR OF SUSTAINABILITY PROGRAMS STMA COHb 1.9 <3.0 % 01/16/2024 12:04 PM DIRECTOR OF SUSTAINABILITY PROGRAMS STMA MetHb <1.0 <1.5 % 01/16/2024 12:04 PM DIRECTOR OF SUSTAINABILITY PROGRAMS STMA CtO2 11.7(L) 18.0 - 21.0 vol % 01/16/2024 12:04 PM DIRECTOR OF SUSTAINABILITY PROGRAMS STMA Blood (Blood, Arterial Line) 01/16/2024 12:02 PM DIRECTOR OF SUSTAINABILITY PROGRAMS 01/16/2024 12:02 PM DIRECTOR OF SUSTAINABILITY PROGRAMS us Kaye Aguilar M.D. LAB BLOOD NON ADD-ON Fin al Result Performing Organization Address City/[facility]/ZIP Co de Phone Number [facility] [address] [place] [address], [facility] [address] [place] [address] * Transfuse Red Blood Cells : (01/16/2024 11:09 AM DIRECTOR OF SUSTAINABILITY PROGRAMS) us Kaye Aguilar M.D. BLOOD TRANSFUSION ORDERA BLES Final Result * Patient Status (01/16/2024 11:00 AM DIRECTOR OF SUSTAINABILITY PROGRAMS) Temperature 35.7 37.0 deg C 01/16/2024 11:00 AM DIRECTOR OF SUSTAINABILITY PROGRAMS STMA FIO2 0.33 0.21=AIR 01/16/2024 11:00 AM DIRECTOR OF SUSTAINABILITY PROGRAMS STMA Blood 01/16/2024 11:0 0 AM DIRECTOR OF SUSTAINABILITY PROGRAMS 01/16/2024 11:00 AM DIRECTOR OF SUSTAINABILITY PROGRAMS Mariel Beckman R.N. LAB BLOOD NON ADD-ON Fi nal Result Performing Organization Address [facility] Co de Phone Number [facility] [address] [place] [address], [facility] [address] [place] [address] * (ABNORMAL) Glucose, Whole Blood (01/16/2024 11:00 AM DIRECTOR OF SUSTAINABILITY PROGRAMS) Glucose 200(H) 70 - 140 mg/dL 01/16/2024 11:03 AM DIRECTOR OF SUSTAINABILITY PROGRAMS STMA Blood (Blood, Arterial Line) 01/16/2024 11:00 AM DIRECTOR OF SUSTAINABILITY PROGRAMS 01/16/2024 11:00 AM DIRECTOR OF SUSTAINABILITY PROGRAMS us Kaye Aguilar M.D. LAB BLOOD ADD-ON Final R esult Performing Organization Address City/[facility]/ZIP Co de Phone Number [facility] [address] [place], [place] [phone] [place] [address] [address] [place] [address] * Potassium, Blood (01/16/2024 11:00 AM DIRECTOR OF SUSTAINABILITY PROGRAMS) Potassium, B 4.4 3.6 - 5.2 mmol/L 01/16/2024 11:03 AM DIRECTOR OF SUSTAINABILITY PROGRAMS STMA Blood (Blood, Arterial Line) 01/16/2024 11:00 AM DIRECTOR OF SUSTAINABILITY PROGRAMS 01/16/2024 11:00 AM DIRECTOR OF SUSTAINABILITY PROGRAMS us Kaye Aguilar M.D. LAB BLOOD NON ADD-ON Fin al Result [facility] [address] [place], [place] [phone] [place] [address] [address] [place] [address] * Sodium, B (01/16/2024 11:00 AM DIRECTOR OF SUSTAINABILITY PROGRAMS) Sodium, B 135 135 - 145 mmol/L 01/16/2024 11:03 AM DIRECTOR OF SUSTAINABILITY PROGRAMS [facility] Blood (Blood, Arterial Line) 01/16/2024 11:00 AM DIRECTOR OF SUSTAINABILITY PROGRAMS 01/16/2024 11:00 AM DIRECTOR OF SUSTAINABILITY PROGRAMS us Kaye Aguilar M.D. LAB BLOOD NON ADD-ON Fin al Result [facility] [address] [place], [place] [phone] [place] [address] [address] [place] [address] * (ABNORMAL) Calcium, Ionized (01/16/2024 11:00 AM DIRECTOR OF SUSTAINABILITY PROGRAMS) Calcium, Ionized, B 4.52(L) 4.65 - 5.30 mg/dL 01/16/2024 11:03 AM DIRECTOR OF SUSTAINABILITY PROGRAMS [facility] Blood (Blood, Arterial Line) 01/16/2024 11:00 AM DIRECTOR OF SUSTAINABILITY PROGRAMS 01/16/2024 11:00 AM DIRECTOR OF SUSTAINABILITY PROGRAMS Kaye Aguilar M.D. LAB BLOOD NON ADD-ON Fin al Result Performing Organization Address City/[facility]/ZIP Co de Phone Number [facility] [address] [place], [place] [phone] [place], [place] [address]A [facility] [address] [place] [address] * (ABNORMAL) Blood Gas with Coox, Arterial (01/16/2024 11:00 AM DIRECTOR OF SUSTAINABILITY PROGRAMS) [facility] pO2 160(H) 83 - 108 mm Hg 01/16/2024 11:03 AM DIRECTOR OF SUSTAINABILITY PROGRAMS STMA pCO2 39 35 - 48 mm Hg 01/16/2024 11:03 AM DIRECTOR OF SUSTAINABILITY PROGRAMS STMA pH 7.42 7.35 - 7.45 pH 01/16/2024 11:03 AM DIRECTOR OF SUSTAINABILITY PROGRAMS STMA Base Excess 1 -2 - 3 mmol/L 01/16/2024 11:03 AM DIRECTOR OF SUSTAINABILITY PROGRAMS STMA HCO3 26 22 - 26 mmol/L 01/16/2024 11:03 AM DIRECTOR OF SUSTAINABILITY PROGRAMS STMA Hemoglobin, B 7.7(L) 13.2 - 16.6 g/dL 01/16/2024 11:03 AM DIRECTOR OF SUSTAINABILITY PROGRAMS STMA O2Hb 97.3 94.0 - 98.0 % 01/16/2024 11:03 AM DIRECTOR OF SUSTAINABILITY PROGRAMS STMA COHb 2.1 <3.0 % 01/16/2024 11:03 AM DIRECTOR OF SUSTAINABILITY PROGRAMS STMA MetHb <1.0 <1.5 % 01/16/2024 11:03 AM DIRECTOR OF SUSTAINABILITY PROGRAMS [facility] CtO2 11.0(L) 18.0 - 21.0 vol % 01/16/2024 11:03 AM DIRECTOR OF SUSTAINABILITY PROGRAMS [facility] Blood (Blood, Arterial Line) 01/16/2024 11:00 AM DIRECTOR OF SUSTAINABILITY PROGRAMS 01/16/2024 11:00 AM DIRECTOR OF SUSTAINABILITY PROGRAMS Kaye Aguilar M.D. LAB BLOOD NON ADD-ON Fin al Result [facility] [address] [place] [address], [facility] STMA [facility] [address] [place] [address] * Transfuse Red Blood Cells : (01/16/2024 9:58 AM DIRECTOR OF SUSTAINABILITY PROGRAMS) us Kaye Aguilar M.D. BLOOD TRANSFUSION ORDERA BLES Final Result * Patient Status (01/16/2024 9:32 AM DIRECTOR OF SUSTAINABILITY PROGRAMS) Temperature 35.8 37.0 deg C 01/16/2024 9:32 AM DIRECTOR OF SUSTAINABILITY PROGRAMS STMA FIO2 0.40 0.21=AIR 01/16/2024 9:32 AM DIRECTOR OF SUSTAINABILITY PROGRAMS STMA Blood 01/16/2024 9:32 AM DIRECTOR OF SUSTAINABILITY PROGRAMS 01/16/2024 9:32 AM DIRECTOR OF SUSTAINABILITY PROGRAMS Mariel Beckman R.N. LAB BLOOD NON ADD-ON Fi nal Result Performing Organization Address City/[facility]/ZIP Co de Phone Number [facility] [address] [place] [address] * (ABNORMAL) Glucose, Whole Blood (01/16/2024 9:32 AM DIRECTOR OF SUSTAINABILITY PROGRAMS) Pathologist [facility] Glucose 171(H) 70 - 140 mg/dL 01/16/2024 9:34 AM DIRECTOR OF SUSTAINABILITY PROGRAMS ST[facility] Blood (Blood, Arterial Line) 01/16/2024 9:32 AM DIRECTOR OF SUSTAINABILITY PROGRAMS 01/16/2024 9:32 AM DIRECTOR OF SUSTAINABILITY PROGRAMS us Kaye Aguilar M.D. LAB BLOOD ADD-ON Final R esult [facility] [address] [place] [address], [facility] [address] [place] [address] * Potassium, Blood (01/16/2024 9:32 AM DIRECTOR OF SUSTAINABILITY PROGRAMS) Potassium, B 4.2 3.6 - 5.2 mmol/L 01/16/2024 9:34 AM DIRECTOR OF SUSTAINABILITY PROGRAMS ST[facility] Blood (Blood, Arterial Line) 01/16/2024 9:32 AM DIRECTOR OF SUSTAINABILITY PROGRAMS 01/16/2024 9:32 AM DIRECTOR OF SUSTAINABILITY PROGRAMS us Kaye Aguilar M.D. LAB BLOOD NON ADD-ON Fin al Result Performing Organization Address City/[facility] Co de Phone Number [facility] [address] [place], [place] [phone] [place] [address] [address] [place] [address] * Sodium, B (01/16/2024 9:32 AM DIRECTOR OF SUSTAINABILITY PROGRAMS) Sodium, B 135 135 - 145 mmol/L 01/16/2024 9:34 AM DIRECTOR OF SUSTAINABILITY PROGRAMS [facility] Blood (Blood, Arterial Line) 01/16/2024 9:32 AM DIRECTOR OF SUSTAINABILITY PROGRAMS 01/16/2024 9:32 AM DIRECTOR OF SUSTAINABILITY PROGRAMS us Kaye Aguilar M.D. LAB BLOOD NON ADD-ON Fin al Result Performing Organization Address City/[facility] Co de Phone Number [facility] [address] [place], [place] [phone] [place] [address] [address] [place] [address] * Calcium, Ionized (01/16/2024 9:32 AM DIRECTOR OF SUSTAINABILITY PROGRAMS) [facility] Calcium, Ionized, B 4.67 4.65 - 5.30 mg/dL 01/16/2024 9:34 AM DIRECTOR OF SUSTAINABILITY PROGRAMS [facility] Blood (Blood, Arterial Line) 01/16/2024 9:32 AM DIRECTOR OF SUSTAINABILITY PROGRAMS 01/16/2024 9:32 AM DIRECTOR OF SUSTAINABILITY PROGRAMS us Kaye Aguilar M.D. LAB BLOOD NON ADD-ON Fin al Result Performing Organization Address City/[facility]/ZIP Co de Phone Number [facility] [address] [place], [place] [phone] [place] [address] [address] [place] [address] * (ABNORMAL) Blood Gas with Coox, Arterial (01/16/2024 9:32 AM DIRECTOR OF SUSTAINABILITY PROGRAMS) pO2 158(H) 83 - 108 mm Hg 01/16/2024 9:34 AM DIRECTOR OF SUSTAINABILITY PROGRAMS ST[facility] pCO2 41 35 - 48 mm Hg 01/16/2024 9:34 AM DIRECTOR OF SUSTAINABILITY PROGRAMS STMA pH 7.42 7.35 - 7.45 pH 01/16/2024 9:34 AM DIRECTOR OF SUSTAINABILITY PROGRAMS STMA Base Excess 2 -2 - 3 mmol/L 01/16/2024 9:34 AM DIRECTOR OF SUSTAINABILITY PROGRAMS ST[facility] HCO3 27(H) 22 - 26 mmol/L 01/16/2024 9:34 AM DIRECTOR OF SUSTAINABILITY PROGRAMS STMA Hemoglobin, B 7.5(L) 13.2 - 16.6 g/dL 01/16/2024 9:34 AM DIRECTOR OF SUSTAINABILITY PROGRAMS ST[facility] O2Hb 97.2 94.0 - 98.0 % 01/16/2024 9:34 AM DIRECTOR OF SUSTAINABILITY PROGRAMS STMA COHb 2.1 <3.0 % 01/16/2024 9:34 AM DIRECTOR OF SUSTAINABILITY PROGRAMS STMA MetHb <1.0 <1.5 % 01/16/2024 9:34 AM DIRECTOR OF SUSTAINABILITY PROGRAMS [facility] CtO2 10.6(L) 18.0 - 21.0 vol % 01/16/2024 9:34 AM DIRECTOR OF SUSTAINABILITY PROGRAMS [facility] Blood (Blood, Arterial Line) 01/16/2024 9:32 AM DIRECTOR OF SUSTAINABILITY PROGRAMS 01/16/2024 9:32 AM DIRECTOR OF SUSTAINABILITY PROGRAMS Kaye Aguilar M.D. LAB BLOOD NON ADD-ON Fin al Result [facility] [address] [place] [address], [facility] [address] [place] [address] * (ABNORMAL) Glucose, POCT (01/16/2024 5:31 AM DIRECTOR OF SUSTAINABILITY PROGRAMS) Glucose, POCT, B 178(H) 70 - 140 mg/dL 01/16/2024 5:33 AM DIRECTOR OF SUSTAINABILITY PROGRAMS PCLX Site Capillary 01/16/2024 5:33 AM DIRECTOR OF SUSTAINABILITY PROGRAMS PCLX Last Intake > 4 hours 01/16/2024 5:33 AM DIRECTOR OF SUSTAINABILITY PROGRAMS PCLX Blood 01/16/2024 5:31 AM DIRECTOR OF SUSTAINABILITY PROGRAMS 01/16/2024 5:33 AM DIRECTOR OF SUSTAINABILITY PROGRAMS us Unknown Provider LAB POCT ORDERABLES-MANUAL Cata l Result Performing Organization Address [facility] Co de Phone Number [facility] [address] [place] [address], [facility] PCLX [facility] [address] [place] [address] * (ABNORMAL) Hemoglobin (01/15/2024 8:04 PM DIRECTOR OF SUSTAINABILITY PROGRAMS) Hemoglobin 8.5(L) 13.2 - 16.6 g/dL 01/15/2024 8:53 PM DIRECTOR OF SUSTAINABILITY PROGRAMS DTL Blood (Blood, Venous) 01/15/2024 8:04 PM DIRECTOR OF SUSTAINABILITY PROGRAMS 01/15/2024 8:47 PM DIRECTOR OF SUSTAINABILITY PROGRAMS us Carla Law M.D. LAB BLOOD ADD-ON Final Result Performing Organization Address [facility] de Phone Number [facility] [address] [place] [address], [facility] [address] [place] [address] * (ABNORMAL) Glucose, POCT (01/15/2024 4:15 PM DIRECTOR OF SUSTAINABILITY PROGRAMS) Pathologist [facility] Glucose, POCT, B 155(H) 70 - 140 mg/dL 01/15/2024 4:18 PM DIRECTOR OF SUSTAINABILITY PROGRAMS PCLX Site Capillary 01/15/2024 4:18 PM DIRECTOR OF SUSTAINABILITY PROGRAMS PCLX Blood 01/15/2024 4:15 PM DIRECTOR OF SUSTAINABILITY PROGRAMS 01/15/2024 4:18 PM DIRECTOR OF SUSTAINABILITY PROGRAMS us Unknown Provider LAB POCT ORDERABLES-MANUAL Cata l Result Performing Organization Address [facility] Co de Phone Number [facility] [address] [place] [address], [facility] PCLX [facility] POC [address] [place] [address] * Transfuse Red Blood Cells : (01/15/2024 3:57 PM DIRECTOR OF SUSTAINABILITY PROGRAMS) us Patel Aguayo M.D. BLOOD TRANSFUSION ORDERAB LES Final Result * Transfuse Red Blood Cells : , 1 Units (01/15/2024 3:57 PM DIRECTOR OF SUSTAINABILITY PROGRAMS) us Patel Aguayo M.D. BLOOD TRANSFUSION ORDERAB LES Final Result * (ABNORMAL) Glucose, POCT (01/15/2024 10:00 AM DIRECTOR OF SUSTAINABILITY PROGRAMS) Glucose, POCT, B 146(H) 70 - 140 mg/dL 01/15/2024 10:06 AM DIRECTOR OF SUSTAINABILITY PROGRAMS PCLX Blood 01/15/2024 10:0 0 AM DIRECTOR OF SUSTAINABILITY PROGRAMS 01/15/2024 10:06 AM DIRECTOR OF SUSTAINABILITY PROGRAMS us Unknown Provider LAB POCT ORDERABLES-MANUAL Cata l Result [facility] [address] [place] [address], [facility] PCLX [facility] P[facility] [address] [place] [address] * DX Shoulder Right 2+ Views (01/15/2024 8:42 AM DIRECTOR OF SUSTAINABILITY PROGRAMS) Anatomical Region Laterality Modality Upper Extremity, Shoulder, M usculoskeletal RST LOS, Musculoskeletal ARZ LOS, Muskuloskeletal FLA LOS Right Digit al Radiography Impressions 01/15/2024 8:48 AM DIRECTOR OF SUSTAINABILITY PROGRAMS No definite acute displaced fracture or traumatic misalignment. Mild to moderate degenerative changes of the shoulder. Narrative 01/15/2024 8:48 AM DIRECTOR OF SUSTAINABILITY PROGRAMS EXAM: DX SHOULDER RIGHT 2+ VIEWS Procedure Note Boyd Kwong DCar. - 01/15/2024 EXAM: DX SHOULDER RIGHT 2+ VIEWS IMPRESSION: No definite acute displaced fracture or traumatic misalignment. Mild tomoderate degenerative changes of the shoulder. us Park Dodd M.D. IMG DIAGNOSTIC IMAGING PROCED URES Final Result * Type and Screen (with Reflex Antibody ID) (01/15/2024 8:24 AM DIRECTOR OF SUSTAINABILITY PROGRAMS) Pathologist [facility] ABORh O Pos Not applicable 01/15/2024 8:50 AM DIRECTOR OF SUSTAINABILITY PROGRAMS STRM Antibody Screen Negative Negative 01/15/2024 9:04 AM DIRECTOR OF SUSTAINABILITY PROGRAMS STRM Type & Screen Expiration 01/18/2024 23:59 01/15/2024 8:50 AM DIRECTOR OF SUSTAINABILITY PROGRAMS STRM Testing Location [place] DEFAULT 01/15/2024 8:31 AM DIRECTOR OF SUSTAINABILITY PROGRAMS STRM Blood (Blood, Venous) 01/15/2024 8:24 AM DIRECTOR OF SUSTAINABILITY PROGRAMS 01/15/2024 8:31 AM DIRECTOR OF SUSTAINABILITY PROGRAMS Park Dodd M.D. LAB BLOOD BANK TEST ORDERABLE S Final Result Performing Organization Address [facility] Co de Phone Number [facility] [address] [place], [place] [phone] [place] [address] STRM [facility] [address] [place] [address] * (ABNORMAL) Troponin T, 2 Hour with 6 Hour Reflex, 5th Gen (01/15/2024 8:24 AM DIRECTOR OF SUSTAINABILITY PROGRAMS) Troponin T, 2 hr, 5th gen 38(H) <=15 ng/L 01/15/2024 8:50 AM DIRECTOR OF SUSTAINABILITY PROGRAMS STMA 2H Delta 3 ng/L 01/15/2024 8:50 AM DIRECTOR OF SUSTAINABILITY PROGRAMS STMA Comment:6 hour collection no t indicated. 2H Delta Interp Not Changing 01/15/2024 8:50 AM DIRECTOR OF SUSTAINABILITY PROGRAMS ST[facility] Blood 01/15/2024 8:24 AM DIRECTOR OF SUSTAINABILITY PROGRAMS 01/15/2024 8:30 AM DIRECTOR OF SUSTAINABILITY PROGRAMS Martha Walton D.O., M.H.A. LAB BLOOD TROPONIN Fin al Result Performing Organization Address [facility] Co de Phone Number [facility] [address] [place], [place] [phone] [place] [address] STMA [facility] [address] [place] [address] * CT Femur Right without IV Contrast (01/15/2024 8:02 AM DIRECTOR OF SUSTAINABILITY PROGRAMS) Anatomical Region Laterality Modality Lower Extremity, Femur, Musc uloskeletal RST LOS, Musculoskeletal ARZ LOS, Muskuloskeletal FLA LOS Right Computed Tomography, Compute d Tomography Impressions 01/15/2024 4:53 PM DIRECTOR OF SUSTAINABILITY PROGRAMS 1. Comminuted displaced and angulated periprosthetic femoral fracture. 2. Dense fluid collection in the subcutaneous tissue of the right hip. Findings may reflect a postoperative or posttraumatic hematoma. However, an underlying infection cannot be excluded. Narrative 01/15/2024 4:53 PM DIRECTOR OF SUSTAINABILITY PROGRAMS EXAM: CT FEMUR RIGHT WITHOUT IV CONTRAST [...] Lumbar Spine by Reconstruction (01/15/2024 6:51 AM DIRECTOR OF SUSTAINABILITY PROGRAMS) Anatomical Region Laterality Modality Thoracic Spine, Neuroradiolo gy RST LOS, Neuroradiology ARZ LOS, Neuroradiology FLA LOS N/A Computed Tomography, Compute d Tomography Impressions 01/15/2024 8:48 AM DIRECTOR OF SUSTAINABILITY PROGRAMS 1. No acute fracture or traumatic malalignment of the thoracic or lumbar spine. 2. Chronic L5 pars defects with grade 1 spondylolisthesis at L5-S1. Advanced right and moderate left neural foraminal narrowing. Narrative 01/15/2024 8:48 AM DIRECTOR OF SUSTAINABILITY PROGRAMS EXAM: CT THORACIC AND LUMBAR SPINE BY [...] and moderate left neural foraminal narrowing. Martha Wallace.Thuan, M.H.A. IMG CT PROCEDURES Cata l Result * CT Abdomen Pelvis with IV Contrast (01/15/2024 6:51 AM DIRECTOR OF SUSTAINABILITY PROGRAMS) Anatomical Region Laterality Modality Abdomen, Pelvis, Abdominal R ST LOS, Abdominal ARZ LOS, Abdominal FLA LOS N/A Computed Tomograp hy, Computed Tomography 01/15/2024 6:47 AM DIRECTOR OF SUSTAINABILITY PROGRAMS Impressions 01/15/2024 11:02 AM DIRECTOR OF SUSTAINABILITY PROGRAMS Right femur periprosthetic fracture. Also, possible right shoulder anterior dislocation, recommend right shoulder radiographs for further evaluation. No other acute traumatic findings. Narrative 01/15/2024 11:02 AM DIRECTOR OF SUSTAINABILITY PROGRAMS EXAM: CT CHEST WITH IV CONTRAST, CT [...] spine reports for spinal findings. Procedure Note Fabaina Orta M.D. - 01/15/2024 EXAM: CT CHEST [...] Chest with IV Contrast (01/15/2024 6:51 AM DIRECTOR OF SUSTAINABILITY PROGRAMS) Anatomical Region Laterality Modality Chest, Thoracic RST LOS, Tho racic ARZ LOS, Thoracic ARZ LOS, Thoracic FLA LOS N/A Computed Tomography, Compute d Tomography 01/15/2024 6:47 AM DIRECTOR OF SUSTAINABILITY PROGRAMS Impressions 01/15/2024 11:02 AM DIRECTOR OF SUSTAINABILITY PROGRAMS Right femur periprosthetic fracture. Also, possible right shoulder anterior dislocation, recommend right shoulder radiographs for further evaluation. No other acute traumatic findings. Narrative 01/15/2024 11:02 AM DIRECTOR OF SUSTAINABILITY PROGRAMS EXAM: CT CHEST WITH IV CONTRAST, CT [...] Spine without IV Contrast (01/15/2024 6:51 AM DIRECTOR OF SUSTAINABILITY PROGRAMS) Anatomical Region Laterality Modality Cervical Spine, Neuroradiolo gy RST [facility], Neuroradiology [facility], Neuroradiology [facility] N/A Computed Tomography, Compute d Tomography 01/15/2024 6:41 AM DIRECTOR OF SUSTAINABILITY PROGRAMS Impressions 01/15/2024 8:16 AM DIRECTOR OF SUSTAINABILITY PROGRAMS No acute fracture or traumatic malalignment of the cervical spine. Narrative 01/15/2024 8:16 AM DIRECTOR OF SUSTAINABILITY PROGRAMS EXAM: CT CERVICAL SPINE WITHOUT IV CONTRAST [...] angiography (series 7, image 56). Procedure Note Little, Sreedhar T, M.D. - 01/15/2024 EXAM: CT CERVICAL SPINE [...] or traumatic malalignment of the cervical spine. us Martha Walton D.O., M.H.A. 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 No acute intracranial findings. No cranial or facial fracture. Narrative 01/15/2024 7:24 AM DIRECTOR OF SUSTAINABILITY PROGRAMS EXAM: CT HEAD WITHOUT IV CONTRAST COMPARISON: [...] Pelvis Left 2-3 Views (01/15/2024 6:42 AM DIRECTOR OF SUSTAINABILITY PROGRAMS) Anatomical Region Laterality Modality Lower Extremity, Pelvis, Hip , Musculoskeletal RST LOS, Musculoskeletal ARZ LOS, Muskuloskeletal FLA LOS Left Digit al Radiography Impressions 01/15/2024 9:15 AM DIRECTOR OF SUSTAINABILITY PROGRAMS No definite acute left fracture. Right hip long arthroplasty with cerclage wires. No gross hardware failure. Degenerative changes of the spine and pelvis. Narrative 01/15/2024 9:15 AM DIRECTOR OF SUSTAINABILITY PROGRAMS EXAM: DX HIP AND PELVIS LEFT 2-3 VIEWS Procedure Note Boyd Kwong D.O. - 01/15/2024 EXAM: DX HIP AND PELVIS LEFT 2-3 VIEWS IMPRESSION: No definite acute left fracture. Right hip long arthroplasty with cerclagewires. No gross hardware failure. Degenerative changes of the spine andpelvis. Martha Wallace.Thuan, M.H.A. IMG DIAGNOSTIC IMAGING PROCEDURES Final Result * DX Chest 1 View (01/15/2024 6:40 AM DIRECTOR OF SUSTAINABILITY PROGRAMS) Anatomical Region Laterality Modality Chest, Thoracic RST LOS, Tho racic ARZ LOS, Thoracic FLA LOS N/A Digital Radiography Impressions 01/15/2024 7:59 AM DIRECTOR OF SUSTAINABILITY PROGRAMS No definite acute displaced fracture. No focal consolidation, large pleural effusion, or discernible pneumothorax. Stents in the bilateral carotid arteries. Presumed gallstones and right upper quadrant abdomen. Prominent cardiac silhouette. Narrative 01/15/2024 7:59 AM DIRECTOR OF SUSTAINABILITY PROGRAMS EXAM: DX CHEST 1 VIEW Procedure Note Boyd Kwong D.O. - 01/15/2024 EXAM: DX CHEST 1 VIEW IMPRESSION: No definite acute displaced fracture. No focal consolidation, largepleural effusion, or discernible pneumothorax. Stents in the bilateralcarotid arteries. Presumed gallstones and right upper quadrant abdomen.Prominent cardiac silhouette. Martha Walton D.O., M.H.A. [facility] DIAGNOSTIC IMAGING PROCEDURES Final Result * DX Femur Right 2 Views (01/15/2024 6:40 AM DIRECTOR OF SUSTAINABILITY PROGRAMS) Anatomical Region Laterality Modality Lower Extremity, Femur, Musc uloskeletal RST LOS, Musculoskeletal ARZ LOS, Muskuloskeletal FLA LOS Right Digit al Radiography Impressions 01/15/2024 8:01 AM DIRECTOR OF SUSTAINABILITY PROGRAMS Since 01/06/2024, new acute moderately displaced periprosthetic fracture at the distal tip of the long shaft right hip arthroplasty with cerclage wires. Foreshortening of the femur approximately 10 cm. [place] anterior and lateral alignment. Probable small knee effusion with overlying soft tissue thickening. No definite acute displaced fracture of the knee. Narrative 01/15/2024 8:01 AM DIRECTOR OF SUSTAINABILITY PROGRAMS EXAM: DX FEMUR RIGHT 2 VIEWS Procedure Note Boyd Kwong D.O. - 01/15/2024 EXAM: DX FEMUR RIGHT 2 VIEWS IMPRESSION: Since 01/06/2024, new acute moderately displaced periprosthetic fractureat the distal tip of the long shaft right hip arthroplasty with cerclagewires. Foreshortening of the femur approximately 10 cm. [place] anterior andlateral alignment. Probable small knee effusion with overlying soft tissue thickening. Nodefinite acute displaced fracture of the knee. us Martha Walton D.O., M.H.A. [facility] DIAGNOSTIC IMAGING PROCEDURES Final Result * CK (Creatine Kinase) (01/15/2024 5:58 AM DIRECTOR OF SUSTAINABILITY PROGRAMS) Pathologist [facility] Creatine Kinase (CK), S 233 39 - 308 U/L 01/15/2024 6:50 AM DIRECTOR OF SUSTAINABILITY PROGRAMS DTL Blood (Blood, Venous) 01/15/2024 5:58 AM DIRECTOR OF SUSTAINABILITY PROGRAMS 01/15/2024 6:30 AM DIRECTOR OF SUSTAINABILITY PROGRAMS Martha Walton D.O., M.H.A. LAB BLOOD ADD-ON Final Result Performing Organization Address [facility] Co de Phone Number [facility] [address] [place] [address], [facility] [address] [place] [address] * (ABNORMAL) Prothrombin Time (PT) (01/15/2024 5:58 AM DIRECTOR OF SUSTAINABILITY PROGRAMS) Pathologist [facility] Prothrombin Time, P 17.1(H) 9.4 - 12.5 sec 01/15/2024 6:09 AM DIRECTOR OF SUSTAINABILITY PROGRAMS STMA INR 1.6 0.9 - 1.1 01/15/2024 6:09 AM DIRECTOR OF SUSTAINABILITY PROGRAMS STMA Comment: ----ADDITIONAL INFORMATION---- Standard intensity warfarin therapeutic range: 2.0 to 3.0 High intensity warfarin therapeutic range: 2.5 to 3.5 Blood (Blood, Venous) 01/15/2024 5:58 AM DIRECTOR OF SUSTAINABILITY PROGRAMS 01/15/2024 6:03 AM DIRECTOR OF SUSTAINABILITY PROGRAMS Martha Walton D.O., M.H.A. LAB BLOOD ADD-ON Final Result Performing Organization Address City/[facility] Co de Phone Number [facility] [address] [place] [address], [facility] STMA [facility] [address] [place] [address] * (ABNORMAL) Troponin T, Baseline with 2 Hour/6 Hour Reflex Biomarker Panel (01/15/2024 5:58 AM DIRECTOR OF SUSTAINABILITY PROGRAMS) Pathologist [facility] Troponin T, Baseline, 5th gen 35(H) <=15 ng/L 01/15/2024 6:19 AM DIRECTOR OF SUSTAINABILITY PROGRAMS STMA Blood (Blood, Venous) 01/15/2024 5:58 AM DIRECTOR OF SUSTAINABILITY PROGRAMS 01/15/2024 6:03 AM DIRECTOR OF SUSTAINABILITY PROGRAMS us Martha Walton D.O., M.H.A. LAB BLOOD TROPONIN Fin al Result [facility] [address] [place] [address] * Lactate (01/15/2024 5:58 AM DIRECTOR OF SUSTAINABILITY PROGRAMS) Lactate, P 1.2 0.5 - 2.2 mmol/L 01/15/2024 6:15 AM DIRECTOR OF SUSTAINABILITY PROGRAMS STMA Blood (Blood, Venous) 01/15/2024 5:58 AM DIRECTOR OF SUSTAINABILITY PROGRAMS 01/15/2024 6:03 AM DIRECTOR OF SUSTAINABILITY PROGRAMS Martha Walton D.O., M.H.A. LAB BLOOD NON ADD-ON F inal Result Performing Organization Address City/[facility]/ZIP Co de Phone Number [facility] [address] [place], [place] [id number] [place] [address] [address] [place] [address] * Lipase (01/15/2024 5:58 AM DIRECTOR OF SUSTAINABILITY PROGRAMS) Lipase, S 55 13 - 60 U/L 01/15/2024 6: 50 AM DIRECTOR OF SUSTAINABILITY PROGRAMS DTL Blood (Blood, Venous) 01/15/2024 5:58 AM DIRECTOR OF SUSTAINABILITY PROGRAMS 01/15/2024 6:30 AM DIRECTOR OF SUSTAINABILITY PROGRAMS Martha Walton D.O., M.H.A. LAB BLOOD ADD-ON Final Result Performing Organization Address City/[facility]/ZIP Co de Phone Number [facility] [address] DTL [facility] [address] [place] [address] * (ABNORMAL) Hepatic Function Panel (01/15/2024 5:58 AM DIRECTOR OF SUSTAINABILITY PROGRAMS) Pathologist [facility] Bilirubin, Total, S 0.4 0.0 - 1.2 mg/dL 01/15/2024 6:50 AM DIRECTOR OF SUSTAINABILITY PROGRAMS DTL Bilirubin, Direct, S <0.2 0.0 - 0.3 mg/dL 01/15/2024 6:50 AM DIRECTOR OF SUSTAINABILITY PROGRAMS DTL Aspartate Aminotransferase (AST), S 33 8 - 48 U/L 01/15/2024 6:50 AM DIRECTOR OF SUSTAINABILITY PROGRAMS DTL Alanine Aminotransferase (ALT), S 25 7 - 55 U/L 01/15/2024 6:50 AM DIRECTOR OF SUSTAINABILITY PROGRAMS DTL Alkaline Phosphatase, S 163(H) 40 - 129 U/L 01/15/2024 6:50 AM DIRECTOR OF SUSTAINABILITY PROGRAMS DTL Albumin, S 3.4(L) 3.5 - 5.0 g/dL 01/15/2024 6:50 AM DIRECTOR OF SUSTAINABILITY PROGRAMS DTL Protein, Total, S 5.4(L) 6.3 - 7.9 g/dL 01/15/2024 6:50 AM DIRECTOR OF SUSTAINABILITY PROGRAMS DTL Blood (Blood, Venous) 01/15/2024 5:58 AM DIRECTOR OF SUSTAINABILITY PROGRAMS 01/15/2024 6:30 AM DIRECTOR OF SUSTAINABILITY PROGRAMS Martha Walton D.O., M.H.A. LAB BLOOD ADD-ON Final Result [address] [address], [address] [address] * (ABNORMAL) Basic Metabolic Panel (01/15/2024 5:58 AM DIRECTOR OF SUSTAINABILITY PROGRAMS) [facility] Potassium, P 4.5 3.6 - 5.2 mmol/L 01/15/2024 6:18 AM DIRECTOR OF SUSTAINABILITY PROGRAMS STMA Sodium, P 134(L) 135 - 145 mmol/L 01/15/2024 6:18 AM DIRECTOR OF SUSTAINABILITY PROGRAMS STMA Chloride, P 99 98 - 107 mmol/L 01/15/2024 6:18 AM DIRECTOR OF SUSTAINABILITY PROGRAMS STMA Bicarbonate, P 24 22 - 29 mmol/L 01/15/2024 6:18 AM DIRECTOR OF SUSTAINABILITY PROGRAMS STMA Anion Gap, P 11 7 - 15 01/15/2024 6:18 AM DIRECTOR OF SUSTAINABILITY PROGRAMS STMA BUN (Blood Urea Nitrogen), P 30(H) 8 - 24 mg/dL 01/15/2024 6:18 AM DIRECTOR OF SUSTAINABILITY PROGRAMS STMA Creatinine 0.91 0.74 - 1.35 mg/dL 01/15/2024 6:18 AM DIRECTOR OF SUSTAINABILITY PROGRAMS STMA Estimated GFR (eGFR) >90 >=60 mL/min/BSA 01/15/2024 6:18 AM DIRECTOR OF SUSTAINABILITY PROGRAMS STMA Comment: Estimated GFR calculated using the 2020 CKD_EPI creatinine equation. Calcium, Total, P 8.3(L) 8.6 - 10.0 mg/dL 01/15/2024 6:18 AM DIRECTOR OF SUSTAINABILITY PROGRAMS STMA Glucose, P 178(H) 70 - 140 mg/dL 01/15/2024 6:18 AM DIRECTOR OF SUSTAINABILITY PROGRAMS STMA Blood (Blood, Venous) 01/15/2024 5:58 AM DIRECTOR OF SUSTAINABILITY PROGRAMS 01/15/2024 6:03 AM DIRECTOR OF SUSTAINABILITY PROGRAMS Martha Walton D.O., M.H.A. LAB BLOOD ADD-ON Final Result [facility] [address] [place] [address], [facility] [address] [place] [address] * (ABNORMAL) CBC with Differential, Blood (01/15/2024 5:58 AM DIRECTOR OF SUSTAINABILITY PROGRAMS) Hemoglobin 7.4(L) 13.2 - 16.6 g/dL 01/15/2024 6:06 AM DIRECTOR OF SUSTAINABILITY PROGRAMS STMA Hematocrit 22.5(L) 38.3 - 48.6 % 01/15/2024 6:06 AM DIRECTOR OF SUSTAINABILITY PROGRAMS STMA Erythrocytes 2.44(L) 4.35 - 5.65 x10(12)/L 01/15/2024 6:06 AM DIRECTOR OF SUSTAINABILITY PROGRAMS STMA MCV 92.2 78.2 - 97.9 fL 01/15/2024 6:06 AM DIRECTOR OF SUSTAINABILITY PROGRAMS STMA RBC Distrib Width 13.9 11.8 - 14.5 % 01/15/2024 6:06 AM DIRECTOR OF SUSTAINABILITY PROGRAMS STMA Platelet Count 316 135 - 317 x10(9)/L 01/15/2024 6:06 AM DIRECTOR OF SUSTAINABILITY PROGRAMS STMA Leukocytes 12.0(H) 3.4 - 9.6 x10(9)/L 01/15/2024 6:06 AM DIRECTOR OF SUSTAINABILITY PROGRAMS STMA Neutrophils 8.37(H) 1.56 - 6.45 x10(9)/L 01/15/2024 6:06 AM DIRECTOR OF SUSTAINABILITY PROGRAMS DHPM Lymphocytes 1.51 0.95 - 3.07 x10(9)/L 01/15/2024 6:06 AM DIRECTOR OF SUSTAINABILITY PROGRAMS STMA Monocytes 1.41(H) 0.26 - 0.81 x10(9)/L 01/15/2024 6:06 AM DIRECTOR OF SUSTAINABILITY PROGRAMS STMA Eosinophils 0.64(H) 0.03 - 0.48 x10(9)/L 01/15/2024 6:06 AM DIRECTOR OF SUSTAINABILITY PROGRAMS STMA Basophils 0.06 0.01 - 0.08 x10(9)/L 01/15/2024 6:06 AM DIRECTOR OF SUSTAINABILITY PROGRAMS STMA Blood (Blood, Venous) 01/15/2024 5:58 AM DIRECTOR OF SUSTAINABILITY PROGRAMS 01/15/2024 6:02 AM DIRECTOR OF SUSTAINABILITY PROGRAMS Martha Walton D.O., M.H.A. LAB BLOOD ADD-ON Final Result [facility] [address] [place] [address], [facility] STMA [facility] [address] [place] [address] DHPM [facility] [address] [place] [address] * ECG 12 Lead (01/15/2024 5:42 AM DIRECTOR OF SUSTAINABILITY PROGRAMS) Ventricular Rate ECG/Min 67 BPM MUSE FL Interval 168 ms MUSE QRSD Interval 92 ms MUSE QT Interval 418 ms MUSE QTC Interval 441 ms MUSE P Fowler 12 degrees MUSE R Fowler -1 degrees MUSE T Wave [place] 74 degrees MUSE 01/15/2024 5:42 AM DIRECTOR OF SUSTAINABILITY PROGRAMS 01/15/2024 11:07 AM DIRECTOR OF SUSTAINABILITY PROGRAMS Impressions MUSE - 01/15/2024 5:50 AM DIRECTOR OF SUSTAINABILITY PROGRAMS Normal sinus rhythm Low voltage QRS Nonspecific T wave abnormality When compared with ECG of 28-Nov-2023 15:18, FL interval has decreased Anterior forces have changed Narrative Procedure Note Flako Berg M.D. - 01/15/2024 IMPRESSION: Normal sinus rhythm Low voltage QRS Nonspecific T wave abnormality When compared with ECG of 28-Nov-2023 15:18, FL interval has decreased Anterior forces have changed us Martha Walton D.O., M.H.A. 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 Stroke (HCC) Seizure (HCC) Stroke Cerebrovascular Accident Personal History documented in this encounter Admitting Diagnoses Diagnosis Fracture Femur Shaft Closed Initial Right (HCC) documented in this encounter Administered Medications Inactive Administered Medications - up to 3 most recent administrations Medication Order MAR Action Action Date Dose Rate Site acetaminophen tablet 1,000 mg (TylenoL) 1,000 mg, oral, 4 times daily, First dose on [place] 01/15/24 at 1200 Given 01/20/2024 8:54 AM DIRECTOR OF SUSTAINABILITY PROGRAMS 1,000 mg Given 01/19/2024 8:24 PM DIRECTOR OF SUSTAINABILITY PROGRAMS 1,000 mg Given 01/19/2024 4:44 PM DIRECTOR OF SUSTAINABILITY PROGRAMS 1,000 mg amLODIPine tablet 5 mg (Norvasc) 5 mg, oral, Daily, First dose (after last modification) on [place] 01/18/24 at 1145 Given 01/20/2024 8:54 AM DIRECTOR OF SUSTAINABILITY PROGRAMS 5 mg Given 01/19/2024 8:25 AM DIRECTOR OF SUSTAINABILITY PROGRAMS 5 mg Given 01/18/2024 12:28 PM DIRECTOR OF SUSTAINABILITY PROGRAMS 5 mg aspirin chewable tablet 81 mg 81 mg, oral, Daily, First dose (after last modification) on [place] 01/18/24 at 1515 Given 01/20/2024 8:54 AM DIRECTOR OF SUSTAINABILITY PROGRAMS 81 mg Given 01/19/2024 8:26 AM DIRECTOR OF SUSTAINABILITY PROGRAMS 81 mg Given 01/18/2024 4:36 PM DIRECTOR OF SUSTAINABILITY PROGRAMS 81 mg atorvastatin tablet 20 mg (Lipitor) 20 mg, oral, Daily at bedtime, First dose on Fri01/15/24 at 2100 Given 01/18/2024 9:07 PM DIRECTOR OF SUSTAINABILITY PROGRAMS 20 mg Given 01/16/2024 8:52 PM DIRECTOR OF SUSTAINABILITY PROGRAMS 20 mg Given 01/15/2024 8:14 PM DIRECTOR OF SUSTAINABILITY PROGRAMS 20 mg atorvastatin tablet 40 mg (Lipitor) 40 mg, oral, Daily at bedtime, First dose (after last modification) on 01/19/24 at 2100 Given 01/19/2024 8:25 PM DIRECTOR OF SUSTAINABILITY PROGRAMS 40 mg bisacodyL suppository 10 mg (Dulcolax) 10 mg, rectal, Daily PRN, constipation, Starting on Fri01/15/24 at 0925, Ordered sequence of administration: polyethylene glycol, then bisacodyl until BM achieved. Given 01/18/2024 4:39 PM DIRECTOR OF SUSTAINABILITY PROGRAMS 10 mg calcium citrate-vitamin D3 315 mg-5 mcg (200 Unit) per tablet 2 tablet (Citracal + D3) 2 tablet, oral, 2 times daily, First dose on Fri01/15/24 at 2100 Given 01/20/2024 8:54 AM DIRECTOR OF SUSTAINABILITY PROGRAMS 2 tablets Given 01/19/2024 8:24 PM DIRECTOR OF SUSTAINABILITY PROGRAMS 2 tablets Given 01/19/2024 8:24 AM DIRECTOR OF SUSTAINABILITY PROGRAMS 2 tablets carboxymethylcellulose 0.5 % ophthalmic solution 1 drop (Refresh Plus) 1 drop, both eyes, 4 times daily PRN, dry eyes, Starting on Fri01/15/24 at 0925 Given 01/19/2024 8:25 PM DIRECTOR OF SUSTAINABILITY PROGRAMS 1 alexandr p cefadroxil capsule 500 mg (Duricef) 500 mg, oral, 2 times daily, First dose (after last modification) on Fri01/15/24 at 1115, Indications: Blood stream infection, Bone and/or joint infectionIndications:Blood stream infection,Bone and/or joint infection Given 01/15/2024 8:14 PM DIRECTOR OF SUSTAINABILITY PROGRAMS 500 mg Given 01/15/2024 11:32 AM DIRECTOR OF SUSTAINABILITY PROGRAMS 500 mg cefadroxil capsule 500 mg (Duricef) 500 mg, oral, 2 times daily, First dose on Fri01/20/24 at 0900, Indications: Prophylaxis, surgicalIndications:Prophylaxis, surgical Given 01/20/2024 8:54 AM DIRECTOR OF SUSTAINABILITY PROGRAMS 500 mg ceFAZolin injection 2 g (Ancef) 2 g, intravenous, Every 8 hours, First dose on Fri01/16/24 at 1645, For 24 hours, Please administer 8 hours from previous dose for postoperative antibiotics For immediate IV push administration, reconstitute vial per IVAG or package insert instructions. See IVAG for administration guidelines., Drug Monitoring Program: Pharmacist to adjust medication dosing based on indication and drug clearance factors., Indications: Prophylaxis, surgical, While drains inIndications:Prophylaxis, surgical,While drains in Given 01/16/2024 6:06 PM DIRECTOR OF SUSTAINABILITY PROGRAMS 2 g ceFAZolin injection 2 g (Ancef) 2 g, intravenous, Every 8 hours, First dose (after last modification) on 01/17/24 at 0845, Please administer 8 hours from previous dose for postoperative antibiotics For immediate IV push administration, reconstitute vial per IVAG or package insert instructions. See IVAG for administration guidelines., Drug Monitoring Program: Pharmacist to adjust medication dosing based on indication and drug clearance factors., Indications: Prophylaxis, surgical, While drains inIndications:Prophylaxis, surgical,While drains in Given 01/20/2024 1:00 AM DIRECTOR OF SUSTAINABILITY PROGRAMS 2 g Given 01/19/2024 4:44 PM DIRECTOR OF SUSTAINABILITY PROGRAMS 2 g Given 01/19/2024 8:24 AM DIRECTOR OF SUSTAINABILITY PROGRAMS 2 g enoxaparin injection 30 mg (Lovenox) 30 mg, subcutaneous, 2 times daily, First dose on 01/17/24 at 0900 Given 01/19/2024 8:25 PM DIRECTOR OF SUSTAINABILITY PROGRAMS 30 mg L eft Lower Abdomen Given 01/19/2024 8:25 AM DIRECTOR OF SUSTAINABILITY PROGRAMS 30 mg Le ft Lower Abdomen Given 01/18/2024 9:07 PM DIRECTOR OF SUSTAINABILITY PROGRAMS 30 mg Ri ght Upper Arm (Back) heparin (porcine) injection 5,000 Units 5,000 Units, subcutaneous, Once, On [place] 01/15/24 at 0945, For 1 dose Given 01/15/2024 9:55 AM DIRECTOR OF SUSTAINABILITY PROGRAMS 5,000 Units Left Upper Arm (Back ) HYDROmorphone (PF) injection 0.2 mg (Dilaudid) 0.2 mg, intravenous, Every 5 min PRN, moderate pain or score 4-6 of 10, severe pain or score 7-10 of 10, Starting on Fri01/16/24 at 1507, PACU (only), Up to maximum total dose of 2 mg Given 01/16/2024 3:25 PM DIRECTOR OF SUSTAINABILITY PROGRAMS 0.2 mg Given 01/16/2024 3:20 PM DIRECTOR OF SUSTAINABILITY PROGRAMS 0.2 mg Given 01/16/2024 3:10 PM DIRECTOR OF SUSTAINABILITY PROGRAMS 0.2 mg HYDROmorphone (PF) injection 0.5 mg (Dilaudid) 0.5 mg, intravenous, Once, On Fri01/15/24 at 0701, For 1 dose Given 01/15/2024 7:10 AM DIRECTOR OF SUSTAINABILITY PROGRAMS 0.5 mg insulin aspart U-100 (Carbohydrate Count) injection 0-20 Units (NovoLOG FlexPen) 0-20 Units, subcutaneous, 3 times daily with meals, First dose on Fri01/16/24 at 1715, Simple or Complex Ratio: Simple, Carb Ratio - Simple (1 unit per __ grams of carbohydrates): 15 Given 01/18/2024 12:45 PM DIRECTOR OF SUSTAINABILITY PROGRAMS 9 Units Left Upper Arm (Back ) Given 01/18/2024 8:48 AM DIRECTOR OF SUSTAINABILITY PROGRAMS 6 Units Ri ght Upper Arm (Back) Given 01/17/2024 12:08 PM DIRECTOR OF SUSTAINABILITY PROGRAMS 2 Units L eft Upper Arm (Back) insulin aspart U-100 (Carbohydrate Count) injection 0-20 Units (NovoLOG FlexPen) 0-20 Units, subcutaneous, 3 times daily with meals, First dose on Fri01/19/24 at 0815, Simple or Complex Ratio: Simple, Carb Ratio - Simple (1 unit per __ grams of carbohydrates): 30 Given 01/20/2024 8:23 AM DIRECTOR OF SUSTAINABILITY PROGRAMS 3 Units Left Upper Arm (Back ) Given 01/19/2024 4:49 PM DIRECTOR OF SUSTAINABILITY PROGRAMS 1 Units Le ft Upper Arm (Back) Given 01/19/2024 12:15 PM DIRECTOR OF SUSTAINABILITY PROGRAMS 2 Units L eft Upper Arm (Back) insulin aspart U-100 injection 0-13 Units (NovoLOG FlexPen) 0-13 Units, subcutaneous, 3 times daily, First dose (after last modification) on Fri01/16/24 at 1700, Insulin Scale: Moderate Correction Scale, 140 - 179: 2 units, 180 - 219: 4 units, 220 - 259: 6 units, 260 - 299: 8 units, 300 - 339: 10 units, 340 - 379: 12 units, 380 - 399: 13 units, Greater than 399: Call service writing Insulin orders Given 01/17/2024 6:27 PM DIRECTOR OF SUSTAINABILITY PROGRAMS 2 Units Right Upper Arm (Theron k) Given 01/17/2024 12:07 PM DIRECTOR OF SUSTAINABILITY PROGRAMS 2 Units L eft Upper Arm (Back) Given 01/17/2024 8:26 AM DIRECTOR OF SUSTAINABILITY PROGRAMS 2 Units Ri ght Upper Arm (Back) insulin aspart U-100 injection 0-13 Units (NovoLOG FlexPen) 0-13 Units, subcutaneous, 3 times daily, First dose (after last modification) on 01/19/24 at 0815, Insulin Scale: Mild Correction Scale, 180 - 219: 2 units, 220 - 259: 3 units, 260 - 299: 4 units, 300 - 339: 5 units, 340 - 379: 6 units, 380 - 399: 7 units, Greater than 399: Call service writing Insulin orders insulin aspart U-100 injection 0-7 Units (NovoLOG FlexPen) 0-7 Units, subcutaneous, Once, On 01/17/24 at 0200, For 1 dose, Insulin Scale: Mild Correction Scale, 180 - 219: 2 units, 220 - 259: 3 units, 260 - 299: 4 units, 300 - 339: 5 units, 340 - 379: 6 units, 380 - 399: 7 units, Greater than 399: Call service writing Insulin orders Given 01/17/2024 2:10 AM DIRECTOR OF SUSTAINABILITY PROGRAMS 3 Units Left Lower Abdomen insulin NPH injection 4 Units 4 Units, subcutaneous, 2 times daily with meals, First dose on 01/17/24 at 0800 Given 01/17/2024 8:09 AM DIRECTOR OF SUSTAINABILITY PROGRAMS 4 Units Left Upper Arm (Back) iohexoL 300 mg iodine/mL solution 1-200 mL (Omnipaque) 1-200 mL, intravenous, Once in imaging, contrast, Starting on [place] 01/15/24 at 0632, For 1 dose, Imaging Protocol Orders, Dose per Radiant Medication Guidelines Given 01/15/2024 6:41 AM DIRECTOR OF SUSTAINABILITY PROGRAMS 140 mL Lactated Ringer's 50 mL/hr, intravenous, Continuous, Starting on Fri01/16/24 at 1315 New Bag 01/18/2024 5:34 AM DIRECTOR OF SUSTAINABILITY PROGRAMS 50 mL/hr 50 mL/hr Rate/Dose Verify 01/18/2024 3:00 AM DIRECTOR OF SUSTAINABILITY PROGRAMS 50 mL/hr 50 mL/h r Rate/Dose Verify 01/17/2024 11:00 PM DIRECTOR OF SUSTAINABILITY PROGRAMS 50 mL/hr 50 mL/ hr levETIRAcetam solution 750 mg (Keppra) 750 mg, oral, 2 times daily, First dose (after last modification) on [place] 01/15/24 at 1115 Given 01/20/2024 9:15 AM DIRECTOR OF SUSTAINABILITY PROGRAMS 750 mg Given 01/19/2024 8:24 PM DIRECTOR OF SUSTAINABILITY PROGRAMS 750 mg Given 01/19/2024 8:25 AM DIRECTOR OF SUSTAINABILITY PROGRAMS 750 mg ondansetron (PF) injection 4 mg (Zofran) 4 mg, intravenous, Every 6 hours PRN, nausea, vomiting, Starting on [place] 01/15/24 at 0925 Given 01/16/2024 4:42 PM DIRECTOR OF SUSTAINABILITY PROGRAMS 4 mg oxyCODONE IR tablet 10 mg (Roxicodone) 10 mg, oral, Every 4 hours PRN, severe pain or score 7-10 of 10, Starting on [place] 01/15/24 at 0925, Second line therapy. If patient is greater than 7 after 2 hours, call service for new order. Given 01/19/2024 8:24 PM DIRECTOR OF SUSTAINABILITY PROGRAMS 10 mg Given 01/15/2024 10:11 AM DIRECTOR OF SUSTAINABILITY PROGRAMS 10 mg oxyCODONE IR tablet 5 mg (Roxicodone) 5 mg, oral, Every 4 hours PRN, moderate pain or score 4-6 of 10, Starting on [place] 01/15/24 at 0925, Second line therapy Given 01/20/2024 6:35 AM DIRECTOR OF SUSTAINABILITY PROGRAMS 5 mg Given 01/17/2024 12:36 PM DIRECTOR OF SUSTAINABILITY PROGRAMS 5 mg Given 01/16/2024 4:32 AM DIRECTOR OF SUSTAINABILITY PROGRAMS [address] tablet 40 mg (Protonix) 40 mg, oral, Daily before morning meal, First dose on Fri01/16/24 at 0700, Swallow whole. Do NOT crush, chew, or split tablet. Given 01/20/2024 6:35 AM DIRECTOR OF SUSTAINABILITY PROGRAMS 40 mg Given 01/19/2024 6:28 AM DIRECTOR OF SUSTAINABILITY PROGRAMS 40 mg Given 01/18/2024 8:02 AM DIRECTOR OF SUSTAINABILITY PROGRAMS 40 mg polyethylene glycol powder packet 1 packet (Miralax) 1 packet, oral, Daily, First dose on Fri01/16/24 at 0900, Ordered sequence of administration: polyethylene glycol, then bisacodyl until BM achieved. Avoid mixing with starch-based thickened liquids. Given 01/18/2024 8:48 AM DIRECTOR OF SUSTAINABILITY PROGRAMS 1 packe t Given 01/17/2024 8:06 AM DIRECTOR OF SUSTAINABILITY PROGRAMS 1 packet rivaroxaban tablet 10 mg (Xarelto) 10 mg, oral, Daily, First dose on Fri01/20/24 at 0900 Given 01/20/2024 8:54 AM DIRECTOR OF SUSTAINABILITY PROGRAMS 10 mg sennosides-docusate sodium 8.6-50 mg per tablet 1 tablet (Senokot-S) 1 tablet, oral, 2 times daily, First dose on [place] 01/15/24 at 2100, Do not give if patient has diarrhea. Given 01/17/2024 8:07 AM DIRECTOR OF SUSTAINABILITY PROGRAMS 1 tablet Given 01/16/2024 8:52 PM DIRECTOR OF SUSTAINABILITY PROGRAMS 1 tablet Given 01/15/2024 8:13 PM DIRECTOR OF SUSTAINABILITY PROGRAMS 1 tablet sennosides-docusate sodium 8.6-50 mg per tablet 2 tablet (Senokot-S) 2 tablet, oral, 2 times daily, First dose (after last modification) on 01/17/24 at 2100, Do not give if patient has diarrhea. Given 01/18/2024 9:07 PM DIRECTOR OF SUSTAINABILITY PROGRAMS 2 tablets Given 01/18/2024 8:48 AM DIRECTOR OF SUSTAINABILITY PROGRAMS 2 tablets sodium chloride (PF) 0.9 % injection 1-100 mL 1-100 mL, intravenous, Once, On [place] 01/15/24 at 0633, For 1 dose, Imaging Protocol Orders, [facility] Medication Guidelines Given 01/15/2024 6:41 AM DIRECTOR OF SUSTAINABILITY PROGRAMS 50 mL sodium chloride 0.9 % injection 10 mL 10 mL, intravenous, As needed, line care, Starting on [place] 01/15/24 at 0536, Peripheral Intravenous Catheter and Rapid Infusion Catheter, prior to blood sampling, post blood transfusion or post blood sampling sodium chloride 0.9 % injection 3 mL 3 mL, intravenous, As needed, line care, Starting on Sharifa 01/15/24 at 0536, Prior to and following infusion and between multiple consecutive infusions: sodium chloride 0.9 % injection sodium chloride 0.9 % injection 3 mL 3 mL, intravenous, Every 12 hours scheduled, First dose on Sharifa 01/15/24 at 0900, Peripheral Intravenous Catheter and Rapid Infusion Catheter, when no infusion to maintain patency Given 01/19/2024 8: 26 PM DIRECTOR OF SUSTAINABILITY PROGRAMS 3 mL Given 01/19/2024 8:27 AM DIRECTOR OF SUSTAINABILITY PROGRAMS 3 mL Given 01/18/2024 10:15 PM DIRECTOR OF SUSTAINABILITY PROGRAMS 3 mL sodium zirconium cyclosilicate 5 gram packet 5 g (Lokelma) 5 g, oral, Once, On 01/17/24 at 0830, For 1 dose, Restriction Criteria (Pharmacy will review and approve if criteria met): Single dose for symptomatic hyperkalemia Given 01/17/2024 9:28 AM DIRECTOR OF SUSTAINABILITY PROGRAMS 5 g vancomycin in dextrose 5 % IVPB 1,500 mg 1,500 mg (rounded from 1,467 mg = 15 mg/kg 97.8 kg Dosing weight), intravenous, at 200 mL/hr, Administer over 90 Minutes, Every 12 hours, First dose (after last modification) on Fri01/16/24 at 2100, For 2 doses, Drug Monitoring Program: Pharmacist to adjust medication dosing based on indication and drug clearance factors., Indications: Prophylaxis, surgicalIndications:Prophylaxis, surgical New Bag 01/17/2024 8:26 AM DIRECTOR OF SUSTAINABILITY PROGRAMS 1,500 mg 200 mL/hr New Bag 01/16/2024 8:53 PM DIRECTOR OF SUSTAINABILITY PROGRAMS 1,500 mg 200 mL/hr documented in this encounter Active and Recently Administered Medications Times are shown in DIRECTOR OF SUSTAINABILITY PROGRAMS. Scheduled Medication Order 01/18/2024 01/19/2024 01/20/2024 acetaminophen tablet 1,000 mg (TylenoL) 1,000 mg, oral, 4 times daily, First dose on Sharifa 01/15/24 at 1200 0802 (Given - Provider: Dodie Gill R.N.)1228 (Given - Provider: Dodie Gill R.N.)1636 (Given - Provider: Dodie Gill R.N.)2107 (Given - Provider: Yvette Bang RBelkisNBelkis) 0825 (Given - Provider: Marily Gonzalez RBelkisN.)1222 (Given - Provider: Marily Gonzalez RBelkisNBelkis)1644 (Given - Provider: Marily Gonzalez RBelkisN.)2024 (Given - Provider: Susan Garcia RBelkisNBelkis) 0854 (Given - Provider: Jael FelderN.) amLODIPine tablet 5 mg (Norvasc) 5 mg, oral, Daily, First dose (after last modification) on 01/18/24 at 1145 1228 (Given - Provider: Dodie Gill R.N.) 0825 (Given - Provider: Marily Gonzalez R.N.) 0854 (Given - Provider: Rocío Castillo R.N.) aspirin chewable tablet 81 mg 81 mg, oral, Daily, First dose (after last modification) on 01/18/24 at 1515 1636 (Given - Provider: Dodie Gill R.N.) 0826 (Given - Provider: Marily Gonzalez R.N.) 0854 (Given - Provider: Rocío Castillo R.N.) atorvastatin tablet 20 mg (Lipitor) (CANCELED) 20 mg, oral, Daily at bedtime, First dose on Sharifa 01/15/24 at 2100 2107 (Given - Provider: Yvette Bang R.N.) atorvastatin tablet 40 mg (Lipitor) 40 mg, oral, Daily at bedtime, First dose (after last modification) on Fri01/19/24 at 2100 202 (Given - Provider: Susan Garcia R.N.) calcium citrate-vitamin D3 315 mg-5 mcg (200 Unit) per tablet 2 tablet (Citracal + D3) 2 tablet, oral, 2 times daily, First dose on Fri01/15/24 at 2100 0848 (Given - Provider: Dodie Gill R.N.)210 (Given - Provider: Yvette Bang R.N.) 0824 (Given - Provider: Marily Gonzalez R.N.)2023 (Given - Provider: Susan Garcia R.N.) 0854 (Given - Provider: Rocío Castillo R.N.) cefadroxil capsule 500 mg (Duricef) 500 mg, oral, 2 times daily, First dose on Fri01/20/24 at 0900, Indications: Prophylaxis, surgical 0854 (Given - Provider: Rocío Castillo R.N.) ceFAZolin injection 2 g (Ancef) (CANCELED) 2 g, intravenous, Every 8 hours, First dose (after last modification) on 01/17/24 at 0845, Please administer 8 hours from previous dose for postoperative antibiotics For immediate IV push administration, reconstitute vial per IVAG or package insert instructions. See IVAG for administration guidelines., Drug Monitoring Program: Pharmacist to adjust medication dosing based on indication and drug clearance factors., Indications: Prophylaxis, surgical, While drains in 0803 (Given - Provider: Dodie Gill R.N.)1636 (Given - Provider: Dodie B Ondieki, R.N.) 0149 (Given - Provider: Jael KlineN.)0824 (Given - Provider: Marily Gonzalez R.N.)1644 (Given - Provider: Marily Gonzalez RBelkisN.) 0100 (Given - Provider: Susan Garcia R.N.) enoxaparin injection 30 mg (Lovenox) (CANCELED) 30 mg, subcutaneous, 2 times daily, First dose on Fri01/17/24 at 0900 0847 (Given - Provider: Dodie Gill R.N.)2107 (Given - Provider: Yvette Bang RBelkisN.) 0825 (Given - Provider: Marily Gonzalez RBelkisN.)202 (Given - Provider: Jael AlstonN.) insulin aspart U-100 (Carbohydrate Count) injection 0-20 Units (NovoLOG FlexPen) (CANCELED) 0-20 Units, subcutaneous, 3 times daily with meals, First dose on Fri01/16/24 at 1715, Simple or Complex Ratio: Simple, Carb Ratio - Simple (1 unit per __ grams of carbohydrates): 15 0848 (Given - Provider: Dodie Gill R.N.)1245 (Given - Provider: Dodie Gill R.N.)1756 (Not Given - Provider: Dodie Gill R.N. - Reason: Order parameters not met - Comment: order discontinued, pt's bg 83) insulin aspart U-100 (Carbohydrate Count) injection 0-20 Units (NovoLOG FlexPen) 0-20 Units, subcutaneous, 3 times daily with meals, First dose on Fri01/19/24 at 0815, Simple or Complex Ratio: Simple, Carb Ratio - Simple (1 unit per __ grams of carbohydrates): 30 0857 (Given - Provider: Marily Gonzalez RBelkisN.)1215 (Given - Provider: Marily Gonzalez R.N.)1649 (Given - Provider: Marily Gonzalez R.N.) 0823 (Given - Provider: Marily Gonzalez, R.N.) insulin aspart U-100 injection 0-13 Units (NovoLOG FlexPen) 0-13 Units, subcutaneous, 3 times daily, First dose (after last modification) on 01/19/24 at 0815, Insulin Scale: Mild Correction Scale, 180 - 219: 2 units, 220 - 259: 3 units, 260 - 299: 4 units, 300 - 339: 5 units, 340 - 379: 6 units, 380 - 399: 7 units, Greater than 399: Call service writing Insulin orders 0756 (Not Given - Provider: Jael CoronaN. - Reason: Order parameters not met - Comment: bg 103)1214 (Not Given - Provider: Marily Gonzalez R.N. - Reason: Order parameters not met - Comment: [id number])1645 (Not Given - Provider: Jael CoronaN. - Reason: Order parameters not met - Comment: bg141) 0744 (Not Given - Provider: Marily Gonzalez RBelkisN. - Reason: Order parameters not met - Comment: bg 115) levETIRAcetam solution 750 mg (Keppra) 750 mg, oral, 2 times daily, First dose (after last modification) on Fri01/15/24 at 1115 0847 (Given - Provider: Dodie Gill R.N.)2210 (Given - Provider: Yvette Bang RBelkisN.) 0825 (Given - Provider: Marily Gonzalez RBelkisN.)2024 (Given - Provider: Susan Garcia R.N.) 0915 (Given - Provider: Marily Gonzalez RBelkisN.) pantoprazole DR tablet 40 mg (Protonix) 40 mg, oral, Daily before morning meal, First dose on Fri01/16/24 at 0700, Swallow whole. Do NOT crush, chew, or split tablet. 0802 (Given - Provider: Dodie Gill R.N.) 0628 (Given - Provider: Catarina Del Rosario R.N.) 0635 (Given - Provider: Susan Garcia R.N.) polyethylene glycol powder packet 1 packet (Miralax) 1 packet, oral, Daily, First dose on Fri01/16/24 at 0900, Ordered sequence of administration: polyethylene glycol, then bisacodyl until BM achieved. Avoid mixing with starch-based thickened liquids. 0848 (Given - Provider: Dodie Gill R.N.) 0826 (Not Given - Provider: Marily Gonzalez R.N. - Reason: See Provider Order) 0850 (Not Given - Provider: Rocío Castillo R.N. - Reason: Other) rivaroxaban tablet 10 mg (Xarelto) 10 mg, oral, Daily, First dose on Fri01/20/24 at 0900 0854 (Given - Provider: Rocío Castillo R.N.) sennosides-docusate sodium 8.6-50 mg per tablet 2 tablet (Senokot-S) 2 tablet, oral, 2 times daily, First dose (after last modification) on Fri01/17/24 at 2100, Do not give if patient has diarrhea. 0848 (Given - Provider: Dodie Gill R.N.)2106 (Given - Provider: Yvette Bang R.N.) 0827 (Not Given - Provider: Marily Gonzalez R.N. - Reason: Order parameters not met)2024 (Not Given - Provider: Susan Garcia R.N. - Reason: Other - Comment: several stools reported , patient refused) 0850 (Not Given - Provider: Rocío Castillo R.N. - Reason: Other) sodium chloride 0.9 % injection 3 mL 3 mL, intravenous, Every 12 hours scheduled, First dose on Sharifa 01/15/24 at 0900, Peripheral Intravenous Catheter and Rapid Infusion Catheter, when no infusion to maintain patency 0901 (Given - Provider: Dodie Gill R.N.)2215 (Given - Provider: Yvette Bang R.N.) 0827 (Given - Provider: Marily Gonzalez R.N.)2025 (Given - Provider: Susan Garcia R.N.) 0851 (Not Given - Provider: Rocío Castillo R.N. - Reason: Other) Continuous Medication Order 01/18/2024 01/19/2024 01/20/2024 Lactated Ringer's (CANCELED) 50 mL/hr, intravenous, Continuous, Starting on Fri01/16/24 at 1315 0300 (Rate/Dose Verify - Provider: Brittney Ellis R.N.)0534 (New Bag - Provider: Brittney Ellis R.N.)0840 (Stopped - Provider: Dodie Gill R.N.) PRN Medication Order 01/18/2024 01/19/2024 01/20/2024 bisacodyL suppository 10 mg (Dulcolax) 10 mg, rectal, Daily PRN, constipation, Starting on Sharifa 01/15/24 at 0925, Ordered sequence of administration: polyethylene glycol, then bisacodyl until BM achieved. 1232 (Not Given - Provider: Dodie Gill R.N. - Reason: Other)1639 (Given - Provider: Dodie Gill R.N.) calcium carbonate chewable tablet 400 mg of calcium (Tums) 400 mg of calcium, oral, Every 2 hour PRN, indigestion, Starting on Sharifa 01/15/24 at 0925, Doses listed are in mg of elemental calcium. Take with food. 500 mg calcium carbonate contains 200 mg of elemental calcium. carboxymethylcellulose 0.5 % ophthalmic solution 1 drop (Refresh Plus) 1 drop, both eyes, 4 times daily PRN, dry eyes, Starting on Sharifa 01/15/24 at 0925 2024 (Given - Provider: Susan Garcia R.N.) HYDROmorphone (PF) injection 0.2 mg (Dilaudid) 0.2 mg, intravenous, Every 2 hour PRN, severe pain or score 7-10 of 10, Starting on Sharifa 01/15/24 at 0925, For 3 doses, May administer if pain is greater than 7 after scheduled and PRN regimen exhausted. ondansetron (PF) injection 4 mg (Zofran) 4 mg, intravenous, Every 6 hours PRN, nausea, vomiting, Starting on Sharifa 01/15/24 at 0925 oxyCODONE IR tablet 10 mg (Roxicodone)(Linked Group 1) 10 mg, oral, Every 4 hours PRN, severe pain or score 7-10 of 10, Starting on Sharifa 01/15/24 at 0925, Second line therapy. If patient is greater than 7 after 2 hours, call service for new order. 2023 (Given - Provider: Suasn Garcia R.N.) 0635 (See Alternative - Provider: Susan Garcia R.N.) oxyCODONE IR tablet 5 mg (Roxicodone)(Linked Group 1) 5 mg, oral, Every 4 hours PRN, moderate pain or score 4-6 of 10, Starting on Sharifa 01/15/24 at 0925, Second line therapy 2023 (See Alternative - Provider: Susan Garcia R.N.) 0635 (Given - Provider: Susan Garcia R.N.) sodium chloride 0.9 % injection 10 mL 10 mL, intravenous, As needed, line care, Starting on Sharifa 01/15/24 at 0536, Peripheral Intravenous Catheter and Rapid Infusion Catheter, prior to blood sampling, post blood transfusion or post blood sampling sodium chloride 0.9 % injection 3 mL 3 mL, intravenous, As needed, line care, Starting on Sharifa 01/15/24 at 0536, Prior to and following infusion and between multiple consecutive infusions: sodium chloride 0.9 % injection Linked Groups Order Group 1: oxyCODONE IR tablet 5 mg (Roxicodone)Jump to med 5 mg, oral, Every 4 hours PRN, moderate pain or score 4-6 of 10, Starting on Sharifa 01/15/24 at 0925, Second line therapy Or oxyCODONE IR tablet 10 mg (Roxicodone)Jump to med 10 mg, oral, Every 4 hours PRN, severe pain or score 7-10 of 10, Starting on Sharifa 01/15/24 at 0925, Second line therapy. If patient is greater than 7 after 2 hours, call service for new order. documented in this encounter Additional Health Concerns Infection Onset Date Last Indicated Resolved Time COVID19 Pending 01/20/2024 01/20/2024 01/20/2024 9 :04 AM DIRECTOR OF SUSTAINABILITY PROGRAMS documented as of this encounter Care Teams Project Economist Relationship Specialty Start Date End Date Elsewhere, Pcp PCP - General Internal Medicine 10/03/23 documented as of this encounter
--- OUTSIDE RECORDS SUMMARY | 2024-01-22 16:33 | XMS_ITS | Encounter Summary ---
Author Organization [facility] Address [address] [place] [address] Care Team Providers Care Customs Consultant Name Role Phone Elsewhere, Pcp Primary Care Provider Unavailabl e Reason for Visit * Auth/Cert (Routine) Specialty Diagnoses / Procedures Referred By Contac t Referred To Contact Diagnoses Fracture Femur Shaft Closed Initial Right (HCC) Procedures EMERGENCY Park Dodd M.D. [address] [place] [address] Phone: tel: fax: Referral ID Status Reason Start Date Expiration Date Visits Re quested Visits Authorized [id number] 1 1 Encounter Details Date Type Department Care Team (Late st Contact Info) Description 01/16/2024 8:06 AM PLASTIC BOAT PATCHER Anesthesia Event [facility] OR [address] [place] [phone] Kaye Aguilar M.D. [address] [place] [phone] Mariel Beckman, R.NBelkis [address] [place] [phone] Anesthesia Record Procedure Summary Procedure Name Responsible Anesthesiologist Anesthesia Start Time Anesthesia Stop Time SURGICAL MANAGEMENT PERIPROSTHETIC FEMUR FRACTURE. (Right: Leg Upper) Kaye Aguilar M.D. 01/16/24 0806 01/16/24 1506 Events Date Time Event Comment 01/16/2024 0806 An Start Machine/Equipme nt Checked Infection Precautions Followed Procedure/Site Verified NPO Status Verified Supine Standard ASA Monitors Applied 0816 An Induction 0819 An Intubation 0857 Turnover to Proceduralist 09 Proc Start 0934 Anes CS Handoff I, Stella nolen, R.N., attest that I have reconciled the controlled substances and that I have reviewed all the significant information with the next anesthesia provider assuming care of this patient. 0950 Anes CS Handoff I, Annamaria Espino R.N., attest that I have reconciled the controlled substances and that I have reviewed all the significant information with the next anesthesia provider assuming care of this patient. 1059 Anes CS Handoff I, Stella nolen R.N., attest that I have reconciled the controlled substances and that I have reviewed all the significant information with the next anesthesia provider assuming care of this patient. 1129 Anes CS Handoff I, Aleksandr Carey.N., attest that I have reconciled the controlled substances and that I have reviewed all the significant information with the next anesthesia provider assuming care of this patient. 1257 Anes CS Handoff I, Stella nolen, R.N., attest that I have reconciled the controlled substances and that I have reviewed all the significant information with the next anesthesia provider assuming care of this patient. 1314 Anes CS Handoff I, Aleksandr Carey.N., attest that I have reconciled the controlled substances and that I have reviewed all the significant information with the next anesthesia provider assuming care of this patient. 1318 Anes CS Handoff I, Aleksandr Carey.N., attest that I have reconciled the controlled substances and that I have reviewed all the significant information with the next anesthesia provider assuming care of this patient. 1415 Proc Fin 1450 Airway Removal Criteria Met 1450 Extubation/Airway Removed 1451 an stop data 1506 An End I completed my handoff to the receiving staff during which we 1. Identified the patient 2. Identified the responsible provider 3. Reviewed the pertinent medical history 4. Discussed the surgical course 5. Reviewed intra-op anesthesia management and issues during anesthesia 6. Set expectations for post-procedure period 7. Allowed opportunity for questions and acknowledgement of understanding. Meds Name Total fentanyl injection 50 mcg/mL 100 mcg lidocaine 2% (mg) injection 60 mg rocuronium 10 mg/mL injection 190 mg phenylephrine 100 mcg/mL injection 300 m cg ePHEDrine PF 5 mg/mL syringe injection 3 0 mg ondansetron 4 mg/2 mL injection 4 mg sugammadex 100 mg/mL injection 200 mg propofol 10 mg/mL injection 120 mg insulin aspart U-100 injection 0-8 Units (NovoLOG FlexPen) 6 Units tranexamic acid in NaCl IVPB 1,000 mg (C yklokapron) 1 g tranexamic acid in NaCl IVPB 1,000 mg (C yklokapron) 1 g vancomycin in dextrose 5 % IVPB 1,250 mg 1,250 mg phenylephrine infusion 40 mcg/mL in NaCl 0.9% 250 mL (premix) 6.78 mg dexAMETHasone (Decadron) injection 4 mg/ mL 4 mg HYDROmorphone (Dilaudid) PF injection 2 mg/mL 1 mg phenylephrine (Pepito-Synephrine) bolus fro m bag 150 mcg albumin human injection 5% 500 mL calcium gluconate injection 100 mg/mL (1 0%) 2,100 mg acetaminophen injection 1,000 mg/100 mL (RESTRICTED) 1,000 mg Lactated Ringers Free Drip 1,500 mL lactated ringers free drip 500 mL NaCl 0.9% free drip 1,000 mL * Agents No agents on file. * Blood Name Total RED BLOOD CELLS 660 mL AUTOLOGOUS RBC-CELL SALVAGE 335 mL Lines, Drains, and Airways Type Details Placement Removal Diabetes Device Right, Left; Arm; Family; Continuous blood glucose monitoring device; Freestyle Jessica 2 11/18/22 0909 by Wound 01/16/24; 0820; Fric tion Inj; Hip; Right, Lateral; to Posterior Back with Medical Adhesive Related Skin Injury 01/16/24 0820 by Connor Bates RBelkisN. Wound 01/16/24; 1120; Y; Incision; Thigh; Right, Lateral 01/16/24 1120 by Connor Bates RBelkisN. Closed/Suction Drain 01/16/24; 1243; 1; Right; Thigh; Accordion; 10 Fr.; 3.2 mm 01/16/24 1243 by Connor Bates R.N. Wound 06/02/23; 1100; Incontinence; Perineum; Groin to Perirectal; 01/17/24; 0707; Wound healed 06/02/23 1100 by Trell Marques R.N., C.W.C.N. 01/17/24 0707 by Rosalie Jean R.N., C.W.O.C.N. Wound 01/06/24; N; Incisio n; Hip; Anterior, Right; 01/16/24; 1120; Other (Comment); surgical procedure, incision extended, see new LDA 01/06/24 0000 by Mabel Chavez R.N. 01/16/24 1120 by Connor Bates R.N. Wound 01/07/24; Y; Pressur e inj; Stage 2; Coccyx; Medial; 01/17/24; 0707; Wound healed 01/07/24 0000 by Henny Garcia R.N., C.W.C.N. 01/17/24 0707 by Rosalie Jean R.N., C.W.O.C.N. Peripheral IV Placement Date: 01/15/24; Placement Time: 0604; Existing LDA Placed by: EMS; Catheter Size: 20 G; Orientation: Left; Location: Antecubital; Removal Date: 01/20/24; Removal Time: 0911; Removal Reason: Patient discharged 01/15/24 0604 by Maik Victoria R.NBelkis 01/20/24 0911 by Rocío Castillo RWilma External Urinary Catheter 01/15/24; 223; Male; 01/16/24; 0830; Other (Comment), Per order (indwelling rodriguez catheter placed for surgical procedure) 01/15/24 223 by Catarina Del Rosario RBelkisNBelkis 01/16/24 0830 by Connor Bates RWilma ETT Placement Date: 01/16/24; Placement Time: 08 (created via procedure documentation); Mask Ventilation: Difficult mask (ie. two-handed) without oral airway; Technique: Video laryngoscopy; Type: Standard ETT; Single Lumen Tube Size: 7.5 mm; Cuffed: Yes; Location: Oral; Grade View: Grade 1; Insertion Attempts: 1; Placement Verification: Bilateral breath sounds, Positive ETCO2, Symmetrical chest wall movement; Removal Date: 01/16/24; Removal Time: 1450 01/16/24 0819 by Mariel Beckman R.N. 01/16/24 1450 by Mariel Beckman RWilma Peripheral IV Placement Date: 01/16/24; Placement Time: 08; Catheter Size: 18 G; Orientation: Right; Location: Hand; Removal Date: 01/20/24; Removal Time: 910; Removal Reason: Patient discharged 01/16/24 0830 by Mariel Beckman RBelkisNBelkis 01/20/24 09 by Rocío Castillo R.N. Indwelling Urinary Catheter Placement Date: 01/16/24; Placement Time: 829; Inserted by: Jael Bates RN; Size: 16 Fr.; Balloon Size: 5 mL (10ml sterile water instilled); Urine Returned: Yes; Removal Date: 01/16/24; Removal Time: 143; Removal Reason: Criteria for drain removal met 01/16/24 0830 by Connor Bates R.NBelkis 01/16/24 1434 by Brittney Ramesh M.S.NBelkis, R.N. Arterial Line Placement Date: 01/16/24; Placemnt Time: 840 (created via procedure documentation); Size: 20 G; Orientation: Left; Location: Radial; Site Prep: Chlorhexidine (Preferred); Technique: Ultrasound guidance; Insertion Attempts: 1; Securement: Securement dressing, Securement device; Removal Date: 01/16/24; Removal Time: 154; Removal Reason: Completion of therapy 01/16/24 0841 by Mariel Beckman R.NBelkis 01/16/24 1546 by Vincent Murphy RBelkisNBelkis Closed/Suction Drain 01/16/24; 1245; Rig ht; Thigh; Accordion; 10 Fr.; 3.2 mm; Per order; Marily Haque RN 01/16/24 1245 by Connor Bates RBelkisNBelkis 01/19/24 0915 by Marily Gonzalez RBelkisNBelkis documented in this encounter Social History Tobacco Use Types Packs/Day Years Used Date Smoking Tobacco: Never Passive Smoke Exposure: Never Smokeless Tobacco: Never Alcohol Use Standard Drinks/Week Comments Never 2 (1 standard drink = 0.6 oz pur e alcohol) [facility] Utilities Answer Date Recorded In the past 12 months has e electric, gas, oil, or water Wellcent[employer] threatened to shut off services in your [...] have a st [place] place to live 01/15/2024 Sex and Gender Information Value Date Recorded Sex Assigned at Male 07/26/2022 1:30 PM CDT Legal Sex Male 6:41 AM PLASTIC BOAT PATCHER Gender Identity Male 07/26/2022 1:32 PM CDT Sexual Orientation Straight 07/26/2022 1: 32 PM CDT documented as of this encounter OR Notes * Anesthesia Postprocedure Evaluation - Kaye Aguilar M.D. - 01/16/2024 4:59 PM CST Patient: Estevan Lester Procedure Summary Date: 01/16/24 Room / Location: [place] [address] / [facility] in [place], [place] Anesthesia Start: 0806 Anesthesia Stop: 1506 Procedure: SURGICAL MANAGEMENT PERIPROSTHETIC FEMUR FRACTURE. (Right: Leg Upper) Diagnosis: Fracture Periprosthetic Hip Initial Right (HCC) (Fracture Periprosthetic Hip Initial Right (HCC) [M97.01XA].) Providers: Ester Vann M.D. Responsible Provider: Kaye Aguilar M.D. Anesthesia Type: general ASA Status: 3 Anesthesia Type: general Last vitals Vitals Value Taken Time BP 109/90 01/16/24 1600 Temp 37 ??C 01/16/24 1600 Pulse 73 01/16/24 1607 Resp 19 01/16/24 1607 SpO2 98 % 01/16/24 1607 Please reference Vitals flowsheet for most recent vital signs. Anesthesia Post Evaluation Patient Disposition: general care unit Cardiovascular status: hemodynamics (HR & BP) acceptable Respiratory status: patent airway with spontaneous effort Temperature: normothermic Oxygen requirements: nasal cannula Level of consciousness: sedated but awakens easily Pain score: pain adequately controlled and/or at baseline Post Op nausea/vomiting: none Hydration status: euvolemic Notable Events Encounter Notable Events Notable Event Outcome Phase Comment Difficult mask airway Intraprocedure Filed from anesthesia note documentation. TIC BOAT PATCHER * Anesthesia Preprocedure Evaluation - Kaye Aguilar M.D. - 01/16/2024 9:13 AM CST Preprocedure Anesthesia & H&P Assessment Procedure Summary Anesthesia Start Date/Time: 01/16/24 08 Procedure: SURGICAL MANAGEMENT PERIPROSTHETIC FEMUR FRACTURE, PROCEED INDICATED. (Right) Diagnosis: Fracture Periprosthetic Hip Initial Right (HCC) [M97.01XA] Pre-op diagnosis: Fracture Periprosthetic Hip Initial Right (HCC) [M97.01XA]. Location: [place] [address] / [facility] in [place], [place] Providers: Ester Vann M.D. Pertinent components of the patient's history including [...] (+) Stroke (HCC) (+) Transient Ischemic Attack Nervous (+) Seizure (HCC) Musculoskeletal (+) Fracture Femur Shaft Closed Initial Right (HCC) Endocrine/Metabolic (+) Hyperlipidemia Sleep (+) Apnea Sleep Obstructive Other (+) Stroke Cerebrovascular Accident Personal History OBJECTIVE PHYSICAL EXAMINATION Airway (HEENT) Somnolent, less than full mouth opening - may be effort-dependent Mallampati: IV TM Distance: >3 FB Neck ROM: Limited Mouth Opening: >3 cm Cardiovascular Rhythm: Regular Rate: Normal Cardiovascular Assessment: cardiovascular normal Functional Capacity: >4 METS Pulmonary Pulmonary Assessment: Clear General / Constitutional Constitutional Assessment: Normal General State of Health:: calm Neurological somnolent Neurologic Assessment: cognitive deficit Dental No loose teeth, but many appear broken and in disrepair Dental Assessment: dentition in poor repair ASSESSMENT / PLAN ANESTHESIA PLAN ASA: 3 Anesthesia Plan: general Somnolent. Unaccompanied. Able to remain alert long enough to answer questions, but quickly closes eyes if not spoken to. Prior uneventful anesthetics. NAZANINA, dev, ramon, 2 PIVs. Patient seen and allergies reviewed, anesthesia plan and risks discussed directly with patient /legal guardian or through an japanese interpreter. Risks/Benefits/Alternatives of Blood transfusion discussed with patient / legal guardian, includingan opportunity to ask questions and/or decline some or all transfusion therapies. The patient / legal guardian consented to the use of all blood products, as deemed medically necessary Approval to Proceed: approved for anesthesia TIC BOAT PATCHER TIC BOAT PATCHER * Anesthesia Procedure Notes - Mariel Beckman R.N. - 01/16/2024 9:03 AM CSTAssociated Order(s): Airway Airway Date/Time: 01/16/2024 8:19 AM Performed by: Mariel Beckman R.N. Authorized by: Kaye Aguilar M.D. Patient location during procedure: OR / Procedure Area PROCEDURE DETAILS: Mask difficulty assessment: difficult mask two-handed) without oral airway Final airway type: video laryngoscope Laryngeal Manipulation: no Final best view of glottic structures - Cormack/Lehane Score: grade 1 ETT location: oral VL device: glide scope [place] scope blade size: 4 Tube size: 7.5 [...] Procedure outcome: successful Notable Events: no complications TIC BOAT PATCHER * Anesthesia Procedure Notes - Mariel Beckman R.N. - 01/16/2024 9:02 AM CSTAssociated Order(s): Invasive Catheter Invasive Catheter Date/Time: 01/16/2024 8:41 AM Performed [...] turn: yes Notable Events - arterial: none Cosigned by Kaye Aguilar M.D. at 01/18/2024 7:58 PM PLASTIC BOAT PATCHER TIC BOAT PATCHER TIC BOAT PATCHER documented in this encounter Plan of Treatment Upcoming Encounters Date Type Department Care Team (Latest Contact Info) Description 01/27/2024 12:30 PM PLASTIC BOAT PATCHER Appointment Department of Orthopedic Surgery in [place], [place] [address] [place] [phone] Lizeth Joe MPAS, P.A.-C. [address] [place] [phone] Discharge Disposition: Home or Self Care 02/19/2024 1:45 PM PLASTIC BOAT PATCHER Appointment Department of Radiology, [facility] [place] [facility], in [place], [place] [address] [place] [phone] Fantasma Butt M.D. [address] [place] [phone] 02/20/2024 11:00 AM PLASTIC BOAT PATCHER Virtual Visit Department of Radiology, [facility], in [place], [place] [address] [place] [phone] Radha Ojeda P.A.-C., M.S. [address] [place] [phone] 04/13/2024 2:00 PM PLASTIC BOAT PATCHER Clinical Communication Virtual Review in [place], [place] [address] 04/15/2024 12:00 PM PLASTIC BOAT PATCHER Appointment Department of Radiology, [facility] [place] [facility], in [place], [place] [address] [place] [phone] Brittney Piña, DC, PAllieC. [address] [place] [phone] 04/15/2024 1:00 PM PLASTIC BOAT PATCHER Office Visit Department of Orthopedic Surgery in [place], [place] [address] [place] [phone] Vel Vinson M.D., M.B.A. [address] [place] [phone] documented as of this encounter Procedures Procedure Name Priority Date/Time Associated Diagnosis Comments LDA ANE ARTERIAL LINE INSERTION Routine 01/16/2024 8:41 AM PLASTIC BOAT PATCHER CA ARTL CATH/CNULA MONITOR PERC Routine 01/16/2024 8:41 AM PLASTIC BOAT PATCHER LDA ANE ENDOTRACHEAL AIRWAY Routine 01/16/2024 8:19 AM PLASTIC BOAT PATCHER documented in this encounter Results * CA ARTL CATH/CNULA MONITOR PERC, LDA ANE ARTERIAL LINE INSERTION (01/16/2024 8:41 AM PLASTIC BOAT PATCHER) Narrative Kaye Aguilar M.D. - 01/16/2024 8:41 AM PLASTIC BOAT PATCHER Mariel Beckman R.N. 01/16/2024 9:03 AM Invasive [...] LDA ANE ENDOTRACHEAL AIRWAY (01/16/2024 8:19 AM PLASTIC BOAT PATCHER) Narrative Mariel Beckman R.N. - 01/16/2024 8:19 AM PLASTIC BOAT PATCHER Mariel Beckman R.N. 01/16/2024 9:03 AM Airway [...] ETT location: oral VL device: glide scope [place] scope blade size: 4 Tube size: 7.5 [...] Aguilar M.D. ANESTHESIA ORDERABLES Fi nal Result documented in this encounter Visit Diagnoses Not on filedocumented in this encounter Administered Medications Inactive Administered Medications - up to 3 most recent administrations Medication Order MAR Action Action Date Dose Rate Site acetaminophen injection intravenous, Administer over 15 Minutes, As needed, Starting on Fri01/16/24 at 1232, Anesthesia Intra-op Given 01/16/2024 12:32 PM PLASTIC BOAT PATCHER 1,000 mg albumin human 5 % injection intravenous, As needed, Starting on Fri01/16/24 at 1035, Anesthesia Intra-op Given 01/16/2024 11:37 AM PLASTIC BOAT PATCHER 250 mL Given 01/16/2024 10:35 AM PLASTIC BOAT PATCHER 250 mL calcium gluconate injection intravenous, As needed, Starting on Fri01/16/24 at 1115, Anesthesia Intra-op Given 01/16/2024 1:50 PM PLASTIC BOAT PATCHER 400 mg Given 01/16/2024 1:39 PM PLASTIC BOAT PATCHER 400 mg Given 01/16/2024 1:31 PM PLASTIC BOAT PATCHER 300 mg dexAMETHasone injection (Decadron) intravenous, As needed, Starting on Fri01/16/24 at 0901, Anesthesia Intra-op Given 01/16/2024 9:01 AM PLASTIC BOAT PATCHER 4 mg ePHEDrine (PF) injection intravenous, As needed, Starting on Fri01/16/24 at 0821, Anesthesia Intra-op Given 01/16/2024 12:35 PM PLASTIC BOAT PATCHER 5 mg Given 01/16/2024 12:08 PM PLASTIC BOAT PATCHER 5 mg Given 01/16/2024 10:43 AM PLASTIC BOAT PATCHER 5 mg fentaNYL injection (Sublimaze) intravenous, As needed, Starting on Fri01/16/24 at 0817, Anesthesia Intra-op Given 01/16/2024 8:17 AM PLASTIC BOAT PATCHER 100 mc g HYDROmorphone (PF) injection (Dilaudid) intravenous, As needed, Starting on Fri01/16/24 at 0930, Anesthesia Intra-op Given 01/16/2024 12:30 PM PLASTIC BOAT PATCHER 0.2 m g Given 01/16/2024 12:02 PM PLASTIC BOAT PATCHER 0.2 mg Given 01/16/2024 11:25 AM PLASTIC BOAT PATCHER 0.2 mg insulin aspart U-100 injection 0-8 Units (NovoLOG FlexPen) 0-8 Units, subcutaneous, Every 2 hour PRN, high blood sugar, Nurse to determine and administer dose., Starting on Fri01/16/24 at 0729, For 2 doses, Pre-Op, Nurse to administer Aspart (Novolog) Insulin subcutaneous as needed every 2 hours for up to 2 doses per correction scale. First dose STAT. Do not administer a correction Insulin dose if glucose is greater than 140 mg/dL and a) It is within 2 hours of any rapid acting or short acting Insulin and/or b) the patient has consumed sugar or carbohydrate containing food or beverage within the past 4 hours. For glucose less than or equal to 70 mg/dL - initiate treatment of hypoglycemia., Insulin Aspart: Correction Scale Insulin (For Diabetes Mellitus diagnosis), 71 - 139: 0 units, 140 - 179: 2 units, 180 - 219: 4 units, 220 - 259: 6 units, 260 - 299: 8 units, Greater than or equal to 300: Call provider managing diabetes Given 01/16/2024 1:25 PM PLASTIC BOAT PATCHER 2 Units Given 01/16/2024 11:10 AM PLASTIC BOAT PATCHER 4 Units Lactated Ringer's intravenous, Continuous Infusion: Per Instructions PRN, Starting on Fri01/16/24 at 0808, Anesthesia Intra-op New Bag 01/16/2024 2:17 PM PLASTIC BOAT PATCHER New Bag 01/16/2024 8:08 AM PLASTIC BOAT PATCHER Lactated Ringer's intravenous, Continuous Infusion: Per Instructions PRN, Starting on Fri01/16/24 at 0830, Anesthesia Intra-op New Bag 01/16/2024 8:30 AM PLASTIC BOAT PATCHER lidocaine (PF) (cardiac) injection intravenous, As needed, Starting on Fri01/16/24 at 0817, Anesthesia Intra-op Given 01/16/2024 8:17 AM PLASTIC BOAT PATCHER 60 mg NaCl 0.9% infusion intravenous, Continuous Infusion: Per Instructions PRN, Starting on Fri01/16/24 at 0948, Anesthesia Intra-op New Bag 01/16/2024 9:51 AM PLASTIC BOAT PATCHER ondansetron (PF) injection (Zofran) intravenous, As needed, Starting on Fri01/16/24 at 1340, Anesthesia Intra-op Given 01/16/2024 1:40 PM PLASTIC BOAT PATCHER 4 mg phenylephrine 10 mg/250 mL (40 mcg/mL) in NaCl 0.9% 250 mL infusion intravenous, Continuous Infusion: Per Instructions PRN, Starting on Fri01/16/24 at 0821, Anesthesia Intra-op Rate/Dose Change 01/16/2024 1:19 PM PLASTIC BOAT PATCHER 0.1 mcg/kg/min 14.67 mL/hr Rate/Dose Change 01/16/2024 12:55 PM PLASTIC BOAT PATCHER 0.2 mcg/kg/min 29 .34 mL/hr Rate/Dose Change 01/16/2024 12:37 PM PLASTIC BOAT PATCHER 0.3 mcg/kg/min 44 .01 mL/hr phenylephrine bolus from bag (Ppeito-Synephrine) intravenous, As needed, Starting on Fri01/16/24 at 0942, Anesthesia Intra-op Given 01/16/2024 11:28 AM PLASTIC BOAT PATCHER 50 mc g Given 01/16/2024 11:17 AM PLASTIC BOAT PATCHER 50 mcg Given 01/16/2024 9:42 AM PLASTIC BOAT PATCHER 50 mcg phenylephrine injection intravenous, As needed, Starting on Fri01/16/24 at 0829, Anesthesia Intra-op Given 01/16/2024 8:29 AM PLASTIC BOAT PATCHER 200 mc g Given 01/16/2024 8:20 AM PLASTIC BOAT PATCHER 100 mcg propofoL injection (Diprivan) intravenous, As needed, Starting on Fri01/16/24 at 0817, Anesthesia Intra-op Given 01/16/2024 8:17 AM PLASTIC BOAT PATCHER 120 mg rocuronium injection (Zemuron) intravenous, As needed, Starting on Fri01/16/24 at 0817, Anesthesia Intra-op Given 01/16/2024 12:03 PM PLASTIC BOAT PATCHER 20 mg Given 01/16/2024 11:15 AM PLASTIC BOAT PATCHER 20 mg Given 01/16/2024 9:55 AM PLASTIC BOAT PATCHER 20 mg sugammadex injection (Bridion) intravenous, As needed, Starting on Fri01/16/24 at 1333, Anesthesia Intra-op Given 01/16/2024 1:33 PM PLASTIC BOAT PATCHER 200 mg tranexamic acid in NaCl IVPB 1,000 mg (Cyklokapron) 1,000 mg (1 g), intravenous, at 300 mL/hr, Administer over 20 Minutes, Once, On Fri01/16/24 at 0745, For 1 dose, Intra-Op, Administer in OR upon induction Given 01/16/2024 8:56 AM PLASTIC BOAT PATCHER 1 g tranexamic acid in NaCl IVPB 1,000 mg (Cyklokapron) 1,000 mg (1 g), intravenous, at 300 mL/hr, Administer over 20 Minutes, Once, On Fri01/16/24 at 0745, For 1 dose, Intra-Op, Administer in OR just before dropping tourniquet Given 01/16/2024 12:37 PM PLASTIC BOAT PATCHER 1 g Transfuse autologous RBC (Cell Salvage) : Routine New Bag 01/16/2024 12:48 PM PLASTIC BOAT PATCHER Transfuse Red Blood Cells : Routine New Bag 01/16/2024 9:58 AM PLASTIC BOAT PATCHER Transfuse Red Blood Cells : Routine New Bag 01/16/2024 11:08 AM PLASTIC BOAT PATCHER vancomycin in dextrose 5 % IVPB 1,250 mg 1,250 mg (rounded from 1,270.5 mg = 15 mg/kg 84.7 kg Adjusted weight), intravenous, at 167 mL/hr, Administer over 90 Minutes, Once, On Fri01/16/24 at 0745, For 1 dose, Intra-Op, Administer within 2 hours prior to surgical incision, Drug Monitoring Program: Pharmacist to adjust medication dosing based on indication and drug clearance factors., Indications: Prophylaxis, surgicalIndications:Prophylaxis, surgical Given 01/16/2024 8:54 AM PLASTIC BOAT PATCHER 1,250 mg documented in this encounter Care Teams Customs Consultant Relationship Specialty Start Date End Date Elsewhere, Pcp PCP - General Internal Medicine 10/03/23 documented as of this encounter
--- OUTSIDE RECORDS SUMMARY | 2024-01-22 16:34 | XMS_ITS | Encounter Summary ---
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 [address] [place] [phone] Social History Tobacco Use Types Packs/Day Years Used Date Smoking Tobacco: Never Passive Smoke Exposure: Never Smokeless Tobacco: Never Alcohol Use Standard Drinks/Week Comments Never 2 (1 standard drink = 0.6 oz pur e alcohol) [facility] Utilities Answer Date Recorded In the past 12 months has [facility] [employer], gas, oil, or water [email or web address] threatened to shut off services in your home? No 01/09/2024 Humiliation, Afraid, Rape, and Kick questionnair e Answer Date Recorded Within the last year, have y ou been afraid of your partner or ex-partner? No 01/09/2024 Within the last year, have y ou been humiliated or emotionally abused in other ways by your partner or ex-partner? No Within the last year, have y ou been kicked, hit, slapped, or otherwise physically hurt by your partner or ex-partner? No 01/09/2024 Within the last year, have y ou been raped or forced to have any kind of sexual activity by your partner or ex-partner? No 01/09/2024 PHQ-2 Answer Date Recorded PHQ-2 Score 0 [...] the money to buy more. Never true 01/09/20 24 Within the past 12 months, t he food you bought just didn't last and you didn't have money to get more. Never true 01/09/2024 PRAPARE - Transportation Answer Date Re corded In the past 12 months, has l ack of transportation kept you from medical appointments or from getting medications? No 12/19 In the past 12 months, has l ack of transportation kept you from meetings, work, or from getting things needed for daily living? No 01/09/2024 Nutrition Answer Date Recorded On average, how [...] your living situation today? I have a [facility] place to live 01/09/2024 Sex and Gender Information Value Date Recorded Sex Assigned at Male 07/26/2022 1:30 PM CDT Legal Sex Male 6:41 AM PUBLIC RELATIONS SPECIALIST Gender Identity Male 07/26/2022 1:32 PM CDT Sexual Orientation Straight 07/26/2022 1: 32 PM CDT documented as of this encounter Plan of Treatment Upcoming Encounters Date Type Department Care Team (Latest Contact Info) Description 01/27/2024 12:30 PM PUBLIC RELATIONS SPECIALIST Appointment Department of Orthopedic Surgery in [address] [phone] Lizeth Joe, DEBRAS, P.A.-C. [address] [place] [phone] Discharge Disposition: Home or Self Care 02/19/2024 1:45 PM PUBLIC RELATIONS SPECIALIST Appointment Department of Radiology, [facility], in [place], [place] [address] [place] [phone] Fantasma Butt M.D. [address] [place] [phone] 02/20/2024 11:00 AM PUBLIC RELATIONS SPECIALIST Virtual Visit Department of Radiology, [facility], in [place], [place] [address] [place] [phone] Radha Ojeda P.A.-C., M.S. [address] [place] [phone] 04/13/2024 2:00 PM PUBLIC RELATIONS SPECIALIST Clinical Communication Virtual Review in [place], [place] [address] [place] [address] 04/15/2024 12:00 PM PUBLIC RELATIONS SPECIALIST Appointment Department of Radiology, [facility], in [place], [place] [address] [place] [phone] Brittney Piña, Jose Francisco IRWIN. [address] [place] [phone] 04/15/2024 1:00 PM PUBLIC RELATIONS SPECIALIST Office Visit Department of Orthopedic Surgery in [place], [place] [address] [place] [phone] Vel Vinson M.D., M.B.A. [address] [place] [phone] documented as of this encounter Visit Diagnoses Not on filedocumented in this encounter Additional Health Concerns Infection Onset Date Last Indicated Resolved Time COVID19 Pending 01/20/2024 01/20/2024 01/20/2024 9 :04 AM PUBLIC RELATIONS SPECIALIST documented as of this encounter Care Teams Waffle Machine Operator Relationship Specialty Start Date End Date Elsewhere, Pcp PCP - General Internal Medicine 10/03/23 documented as of this encounter
--- OUTSIDE RECORDS SUMMARY | 2024-01-22 16:34 | XMS_ITS | Encounter Summary ---
Author Organization [facility] Address [address] [place] [address] Care Team Providers Care Business Information Analyst Name Role Phone Elsewhere, Pcp Primary Care Provider Unavailabl e Reason for Visit * Reason Comments Fall * Auth/Cert (Routine) Specialty Diagnoses / Procedures Referred By Contac t Referred To Contact Diagnoses Fracture Femur Shaft Closed Initial Right (HCC) Procedures EMERGENCY Park Dodd M.D. [address] [place] [address] Phone: tel: fax: Referral ID Status Reason Start Date Expiration Date Visits Re quested Visits Authorized [id number] 1 1 Encounter Details Date Type Department Care Team (Late st Contact Info) Description 01/16/2024 7:50 AM CASTING WHEEL OPERATOR - 01/16/2024 12:32 PM CASTING WHEEL OPERATOR Surgery RST ROMB MAIN OR [address] [place] [address] [phone] Ester Vann M.D. [address] [place] [phone] SURGICAL MANAGEMENT PERIPROSTHETIC FEMUR FRACTURE. Social History Tobacco Use Types Packs/Day Years Used Date Smoking Tobacco: Never Passive Smoke Exposure: Never Smokeless Tobacco: Never Alcohol Use Standard Drinks/Week Comments Never 2 (1 standard drink = 0.6 oz pur e alcohol) [facility] Utilities Answer Date Recorded In the [...] your living situation today? I have a [facility] place to live 01/15/2024 Sex and Gender Information Value Date Recorded Sex Assigned at Male 07/26/2022 1:30 PM CDT Legal Sex Male 6:41 AM CASTING WHEEL OPERATOR Gender Identity Male 07/26/2022 1:32 PM CDT Sexual Orientation Straight 07/26/2022 1: 32 PM CDT documented as of this encounter Last Filed Vital Signs Vital Sign Reading Time Taken Comments Blood Pressure 111/54 01/16/2024 5:28 AM CASTING WHEEL OPERATOR Pulse 68 01/16/2024 5:29 AM CASTING WHEEL OPERATOR Temperature 36.3 C (97.3 F) 01/16/2024 5:29 AM CASTING WHEEL OPERATOR Respiratory Rate 16 01/16/2024 5:28 AM CASTING WHEEL OPERATOR Oxygen Saturation 98% 01/16/2024 5:29 AM CASTING WHEEL OPERATOR Inhaled Oxygen Concentration - - Weight 97.8 kg (215 lb 9.8 oz) 01/15/2024 9:26 A M CASTING WHEEL OPERATOR Height 181 cm (5' 11.26) 01/15/2024 9:26 AM CASTING WHEEL OPERATOR Body Mass Index 29.85 01/15/2024 9:26 AM CASTING WHEEL OPERATOR documented in this encounter Discharge Summaries * [...] S, M.D. RST ROMB OR DISCHARGE DISPOSITION: [facility]] POST DISCHARGE RECOMMENDATIONS: MEDICINE CONSULT [...] discharge. Please assess for timing of re-initiation uzma (long-term cardiovascular and renal benefit) Recommend continued outpatient follow-up and monitoring for his multifactorial anemia BLOOD GLUCOSE MANAGEMENT: Monitor blood glucose twice daily before morning and evening meal. Blood glucose goal is 100-160 mg/dL, higher goal due to comorbidities. Most recent A1c on record: Lab Results Component Value Date HGBA1C 5.1 01/07/2024 Please have provider at [facility] review blood glucoses at least twice weekly, [...] be mailed/sent to you. Please report to [facility] main admissions prior to your appointment If you have any questions or to make/verify appointments - you may contact Dr. Vann's service at [phone] during business hours For emergent problems - the service may be contacted by calling the [facility] continuous absorption process operator [phone] (asking for Dr. Guzmán service) PRIMARY CARE PROVIDER FOLLOW UP: We [...] Scheduled Appointments 01/27/2024 12:30 PM Lizeth Joe MPAS, P.A.-C.; [facility] ROMB ORS Orthopedic Surgery 01/29/2024 11:00 AM [...] 4 Radiology 02/20/2024 11:00 AM Radha Ojeda P.A.-C., M.S. Radiology For appointment details refer to [...] fall, 01/14/2024 The patient was admitted to [facility] Internal medicine team was consulted to assist [...] therapy was consulted for assistance with mobilization. student services coordinator was consulted to assist with placement. Diet [...] lines, the patient was discharged to a [facility] facility. # Status post 2-stage revision arthroplasty [...] CONSULT TO INFECTIOUS DISEASES IP CONSULT TO CIRCUIT COURT JUDGE WOUND CARE IP CONSULT TO DIETITIAN IP CONSULT TO CARE MANAGEMENT IP CONSULT TO VASCULAR MEDICINE IP CONSULT TO DIABETES IP CONSULT TO DIETITIAN CONDITION AT DISCHARGE Stable Discharge instructions were provided to the patient and caregiver(s). ING WHEEL OPERATOR documented in this encounter Discharge Instructions * Discharge Instructions* Albert Lay APRN, C.N.P., D.N.P. - 01/20/2024 8:06 AM CASTING WHEEL OPERATOR BLOOD GLUCOSE MANAGEMENT: Monitor blood glucose twice daily before morning and evening meal. Blood glucose goal is 100-160 mg/dL, higher goal due to comorbidities. Most recent A1c on record: Lab Results Component Value Date HGBA1C 5.1 01/07/2024 Please have provider at [facility] review blood glucoses at least twice weekly, or earlier if blood glucose values are consistently out of goal range, to determine if changes to diabetes therapy are indicated. As Diabetes and Nutritional Education is important to your diabetes management, yearly follow up with a local Completion Manager and Dietitian is recommended. Please check with your insurance company as diabetes education visits are commonly covered. Your primary care provider can provide referrals for education. ING WHEEL OPERATOR * Attachments The following attachments cannot be sent through Care Everywhere. * Amlodipine (By mouth) (French) * Calcium/Vitamin D Supplement (By mouth) (French) * Oxycodone, Rapid Release (By mouth) (French) documented in this encounter Medications at Time [...] by mouth daily. 30 tablet 11 01/20/2024 5 sennosides (senna) 8.6 mg tablet Take 8.6 mg by mouth 2 (two) times a day. documented as of this encounter Progress Notes * Graham Alfonso M.SJeremy., L.G.S.W. - 01/20/2024 7:51 AM CST SUBJECTIVE Mr. Lester's guardian, Lor LesterMary, contacted social work with a number of [...] Provider Services Address Phone Fax Patient Preferred [facility] [address] [place] [phone] -- Contact: [facility] - [phone] Patient has a [place] bedhold. Facility can [...] transport. Friday 01/19 at 10:00 AM with [employer] ([phone]). NURSING: Complete documentation in the Discharge Navigator [...] to follow and assist if needs arise. Tacho Muir, Alejandrina 01/20/24 ING WHEEL OPERATOR * Lul Soriano M.D. - 01/20/2024 6:06 AM CST Orthopedic Trauma Surgery Daily Progress Note Orthopedic Service: [facility] Hospital Admission Day: 01/15/2024 Surgery Information This Encounter Past Procedures (01/20/2023 to Today) Date Procedures Providers Loc / Dept 01/16/2024 SURGICAL MANAGEMENT PERIPROSTHETIC FEMUR FRACTURE. Soo, Ester Malcolm M.D.Flako Loaiza M.D.Lul Soriano M.D.AuroraisGino yarbrough M.D. RST ROMB OR SUBJECTIVE Mr. Lester [...] Hypertension Essential Primary #4 Peripheral Arterial Disease ([facility]) #5 Diabetes Mellitus Type 2 Ulcer Foot ([facility]) #6 Stenosis Carotid Artery Right #7 Transient Ischemic Attack #8 Occlusion Carotid Artery Left #9 Stroke ([facility]) #10 Seizure ([facility]) #11 Stroke Cerebrovascular Accident Personal History #12 Fracture Femur Shaft Closed Initial Right ([facility]) # Status post surgical management of right [...] total femur. From 6am-6pm Friday-Friday, please contact [facility] at [phone] with any questions regarding this patient. If overnight [phone] or any time on weekends, please contact the Orthopedic Surgery house resident strand and binder controller at [phone]. ING WHEEL OPERATOR * Radha Buckley OJamari. - 01/19/2024 3:29 PM CST Patient refused therapy this date. Attempted coaxing for participation with OT, PT, and nursing butrefused multiple times. Will attempt to see patient tomorrow for occupational therapy as able. Radha Buckley O.T. ING WHEEL OPERATOR * Kimberley Ortiz P.T., D.P.T. - 01/19/2024 2:49 PM CST 01/19/24 4779 General Reason Therapy Missed Patient declined therapy RN, OT and PT attempted to engage patient in therapy session this afternoon. He repeatedly yelled out no despite encouragement and education provided. Will follow up as able and appropriate to progress plan of care. Kimberley Ortiz P.T., D.P.T. ING WHEEL OPERATOR * Allyssa Li, D., R.Ph. - 01/19/2024 12:22 PM CST Pharmacist [...] possible pain medications and bowel regimen Allyssa Li Pharm.D., R.Ph. ING WHEEL OPERATOR * Graham Alfonso M.S.W., DinaS.Jadon. - 01/19/2024 10:48 AM CST SUBJECTIVE Mr. Lester had a full psychosocial assessment on 05/26/23 by Dawn Parks [facility], SENIOR QUALITY MANAGER. This should be consulted for full psychosocial assessment details. Mr. Lester visited with social work this morning. Mr. Lester provided sparse details, but stated, he was doing good. He provided this information but was sparse with conversation and details.He affirmed that he felt good and wanted to return to [facility] when medically ready. Mr. Lester now has a guardian, his sister Lor Tanner. This document is on file. Silvia also moved to [facility] in [place]. Mrs. Tanner affirmed that would like to discharge back to [facility] once he is medically ready. However, she [...] Lester would like to discharge back to [facility] [place]. Social work will follow for support and discharge needs. Anitha Muir., Yifan. 01/19/24 ING WHEEL OPERATOR * Lul Soriano M.D. - 01/19/2024 6:36 AM CST Orthopedic Trauma Surgery Daily Progress Note Orthopedic Service: [facility] Hospital Admission Day: 01/15/2024 Surgery Information This Encounter Past Procedures (01/19/2023 to Today) Date Procedures Providers Loc / Dept 01/16/2024 SURGICAL MANAGEMENT PERIPROSTHETIC FEMUR FRACTURE. Soo, Eagle Buckley Michael W, M.D.Schaefer, Jacob J, M.D.Gino Galeas M.D. RST ROMB OR SUBJECTIVE Mr. Lester is doing well. He has been afebrile in his vital signs are stable. He is making adequate urine and stool. Drain 1 with 105 cc out overnight. Drain to his 0 cc out overnight. Hemoglobin stable at 8.8 yesterday. He is denying any chest pain, fever, nausea or vomiting. His cultures have had no growth to date. No output in iVac OBJECTIVE Vitals Temperature: [36.2 ??C-36.6 ??C] 36.6 ??C Resp Rate: [14-16] 14 Blood Pressure: (127-175)/(60-78) 127/60 SpO2: [93 %-100 %] 96 % Pulse Rate: [51-73] 61 I/O last 3 completed shifts: In: 2925.8 [P.O.:1135] Out: 992 [Urine:700; Drains:290; Other:2] Output by Drain (mL) 01/17/24 07 - 01/17/24 1900 01/17/24 190 [...] Hypertension Essential Primary #4 Peripheral Arterial Disease ([facility]) #5 Diabetes Mellitus Type 2 Ulcer Foot ([facility]) #6 Stenosis Carotid Artery Right #7 Transient Ischemic Attack #8 Occlusion Carotid Artery Left #9 Stroke ([facility]) #10 Seizure ([facility]) #11 Stroke Cerebrovascular Accident Personal History #12 Fracture Femur Shaft Closed Initial Right ([facility]) # Status post surgical management of right periprosthetic femur fracture on 01/16/[address] Vann Overall, the patient is doing well. No major new updates today. We will plan on discharging back [facility] when able. Drain 2 will be [...] total femur. From 6am-6pm Friday-Friday, please contact [facility] at [phone] with any questions regarding this patient. If overnight [phone] or any time on weekends, please contact the Orthopedic Surgery house resident strand and binder controller at [phone]. ING WHEEL OPERATOR ING WHEEL OPERATOR * Doug Narvaez M.D. - 01/18/2024 11:54 [...] details about our team's plan of care. ING WHEEL OPERATOR * Daljit Zavala M.D. - 01/18/2024 11:39 AM CST Medicine Consult Progress/SIGN OFF Note SUBJECTIVE Interval Events: - patient has had repeated hypotensive blood pressure readings during the day yesterday. 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 Upon moving the blood pressure cuff to his left arm, his blood pressure readings came up to normotensive/hypertensive range. He remained hemodynamically stable since. - NAEON - patient seen this morning, in good [...] / PLAN Mr. Lester is hospitalized on [facility] Orthopedic Trauma Surgery 2S - Sems for evaluation and management of Fracture Femur Shaft Closed Initial Right (HCC) and is status post Surgery Information This Encounter Past Procedures (01/18/2023 to Today) Date Procedures Providers Loc / Dept 01/16/2024 SURGICAL MANAGEMENT PERIPROSTHETIC FEMUR FRACTURE. Soo, Ester Malcolm M.D.Flako Loaiza M.D.Lul Soraino M.D.Rudisill, Samuel S, M.D. [facility] ROMB OR Medicine Consult service was consulted for evaluation/recommendations of TALYA and AMLoni. #1 Fracture Femur Shaft Closed Initial Right [...] Consults will sign off. Please page the [facility] Medicine Consult Team 2 pager [phone] with any questions or concerns. The above plan of care was discussed with Dr. Narvaez. I personally spent a total of 25 minutes providing and coordinating care today. Rubin Zavala M.D. Internal Medicine, PGY 3 ING WHEEL OPERATOR ING WHEEL OPERATOR ING WHEEL OPERATOR * Whitley Rodrigues M.D. - 01/18/2024 7:51 [...] (mL) 01/16/24 0701 - 01/16/24 1900 01/16/24 1901 - 01/17/24 0700 01/17/24 0701 - 01/17/24 1900 01/17/24 1901 [...] #12 Fracture Femur Shaft Closed Initial Right ([facility]) # Status post surgical management of right [...] total femur. From 6am-6pm Friday-Friday, please contact [facility] at [phone] with any questions regarding this patient. If overnight [phone] or any time on weekends, please contact the Orthopedic Surgery house resident strand and binder controller at [phone]. ING WHEEL OPERATOR * Octavia Oliva M.S., O.T. - 01/17/2024 [...] patient: 3 minutes Octavia Oliva M.S., O.T. ING WHEEL OPERATOR * Robi Lrod P.T., D.P.T. - 01/17/2024 12:52 PM CST [...] patient: 3 minutes Robi Lord P.T., D.P.T. ING WHEEL OPERATOR * Daljit Zavala M.D. - 01/17/2024 12:12 [...] / PLAN Mr. Lester is hospitalized on [facility] Orthopedic Trauma Surgery 2S - Sems for evaluation and management of Fracture Femur Shaft Closed Initial Right (HCC) and is status post Surgery Information This Encounter Past Procedures (01/17/2023 to Today) Date Procedures Providers Loc / Dept 01/16/2024 SURGICAL MANAGEMENT PERIPROSTHETIC FEMUR FRACTURE. Soo, Eagle Buckley Michael W, M.D.Schaefer, Jacob J, M.D.Rudisill, Samuel S, M.D. [facility] ROMB OR Medicine Consult service was consulted [...] will continue to follow. Please page the [facility] Medicine Consult Team 2 pager [phone] with any questions or concerns. The above plan of care was discussed with Dr. Narvaez. I personally spent a total of 25 minutes providing and coordinating care today. Rubin Zavala M.D. Internal Medicine, PGY 3 ING WHEEL OPERATOR * Teo Christopher, JUAN RAMON, C.N.P. - 01/17/2024 11:05 [...] Labs 01/17/24 0751 01/17/24 0608 01/17/24 0209 01/16/24 2016 01/16/24 1745 01/16/24 1515 01/16/24 1317 01/16/24 1202 [...] and oriented and in agreement. DCS Pager [phone] will continue to follow. Call primary service for diabetes concerns between [phone]. Primary service to contact DCS via hospital continuous absorption process operator for questions. ING WHEEL OPERATOR * Doug Narvaez M.D. - 01/17/2024 9:24 [...] details about our team's plan of care. ING WHEEL OPERATOR ING WHEEL OPERATOR * Rosalie Jean R.N., C.W.O.C.N. - 01/17/2024 7:09 AM CST [facility] Wound RN consulted to assess Estevan [...] brace should be padded with Mepilex or Jeff. 01/17/24 0650 Wound 01/16/24 Friction Injury Hip Right;Lateral to Posterior Back with Medical Adhesive Related Skin Injury Date First Assessed/Time First Assessed: 01/16/24 0820 Primary Wound Type: Friction Injury Location: Hip Wound Location Orientation: Right;Lateral Wound Description (Comments): to Posterior Back withMedical Adhesive Related Skin Injury Pain Score 0 - none *Shape Irregular *Tunneling None *Signs of Infection None *Wound Bed Partial thickness;[place];Open Tissue Exposed None Odor None *Exudate Amount [...] *Signs of Infection None *Wound Bed Open;Partial thickness;[place];Yellow Tissue Exposed None Odor None *Exudate Amount Scant Drainage Description Serosanguineous Caroline-wound Assessment Fragile Treatments Cleansed Periwound Treatment Cleansed (Comment) *Primary Dressing Foam (Mepilex Lite) *Primary Dressing Frequency of Change Daily & PRN Primary Dressing Changed New Primary Dressing Status Clean;Dry;Intact Changed by Wound chief meter reader Ongoing management Nursing Head to toe skin [...] nursing. They agree to the plan. The [facility] RN will sign-off. Please place a wound care consult for any new concerns. Electronically signed by: Rosalie Jean R.N., Venu.Jadon.O.C.N. 01/17/24 7:16 AM CASTING WHEEL OPERATOR Page Me Weekend Pager is [phone] (available Saturdays [phone]) ING WHEEL OPERATOR * Lul Soriano M.D. - 01/17/2024 4:10 [...] (mL) 01/15/24 0701 - 01/15/24 1900 01/15/24 1901 - 01/16/24 0700 01/16/24 0701 - 01/16/24 1900 01/16/24 1901 - 01/17/24 0416 Closed/Suction Drain 1 Right [...] #5 Diabetes Mellitus Type 2 Ulcer Foot ([facility]) #6 Stenosis Carotid Artery Right #7 Transient Ischemic Attack #8 Occlusion Carotid Artery Left #9 Stroke ([facility]) #10 Seizure ([facility]) #11 Stroke Cerebrovascular Accident Personal History #12 Fracture Femur Shaft Closed Initial Right ([facility]) # Status post surgical management of right [...] total femur. From 6am-6pm Friday-Friday, please contact [facility] at [phone] with any questions regarding this patient. If overnight [phone] or any time on weekends, please contact the Orthopedic Surgery house resident strand and binder controller at [phone]. ING WHEEL OPERATOR ING WHEEL OPERATOR ING WHEEL OPERATOR ING WHEEL OPERATOR * Doug Narvaez M.D. - 01/16/2024 4:58 [...] details about our team's plan of care. ING WHEEL OPERATOR * Estevan Foss M.D. - 01/16/2024 7:28 [...] / PLAN Mr. Lester is hospitalized on [facility] Orthopedic Trauma Surgery 2S - Sems for evaluation and management of Fracture Femur Shaft Closed Initial Right (HCC) and is status post Surgery Information This Encounter Past and Present Procedures (01/16/2023 to Today) Date Procedures Providers Loc / Dept 01/16/2024 SURGICAL MANAGEMENT PERIPROSTHETIC FEMUR FRACTURE, PROCEED INDICATED. Dante Vann M.D. [facility] ROMB OR Medicine Consult service was consulted [...] will continue to follow. Please page the [facility] Medicine Consult Team 2 pager [phone] with any questions or concerns. The above plan of care was discussed with Dr. Narvaez. I personally spent a total of 25 minutes providing and coordinating care today. Estevan Foss M.D. Internal Medicine, PGY 3 ING WHEEL OPERATOR * Sadie Mitchell, R.Ph. - 01/15/2024 3:32 [...] 04/16/2024) Changes to medications anticipated at discharge:TBD Jael YusufPh. ING WHEEL OPERATOR * Sadie Mitchell R.Ph. - 01/15/2024 9:31 AM CST Images from the original note were not included. Admission Medication History Note Adherence issues: Unable to assess Medication list source: Care Everywhere or chart review and Pharmacy or dispense records Medication related information: per RN, medication dispense history per Orthopedic Surgery Discharge Summary from 01/09/2024 and per [facility] Medication review report via phone with facility RN Prior to Admission Medications Med List Status: RN Complete Set By: Belia Valles R.N. at 01/15/2024 6:00 AM Taking? Last Dose [...] 10 mg by mouth daily. On hold ING WHEEL OPERATOR documented in this encounter Consult Notes * Robi Lord P.T., D.P.T. - 01/18/2024 11:38 AM CST Physical Therapy Inpatient Evaluation/Treatment SUBJECTIVE Patient's Name: Estevan Mastzgerald Referring/Attending Provider: Len Hinojosa M.D. Medical Diagnosis: Fracture Femur Shaft Closed Initial Right (HCC) [S72.301A] Reason for Referral: PT Evaluate and Treat PT - Ortho Onset Date: 01/15/24 Payor: [facility] / Plan: [facility] / Product Type: Medicaid HMO / [...] as indicated.; Surgeon: Mike Cheng M.D.; Location: [facility] RO OR JOINT REPLACEMENT OTHER CONVERTED SHX [...] PELVIS.; Surgeon: Vel Vinson M.D., M.B.A.; Location: [facility] OR History of Present Illness: Right ISRRAEL revision Prior Function/Occupational Profile Lives With: Other (Comment) (SNF resident) Receives Help From: Facility staff, Family ADL Assistance: Required assistance IADL/Homemaking Assistance: Required assistance Driving: Does not drive Prior Mobility/Functional Transfers Level of [place]: Needs assistance Gait Devices/Wheelchair Used: Manual wheelchair, Power wheelchair, Front wheeled walker Gait Devices/Wheelchair Used Comments: Utilize a front wheeled walker to pivot to and from wheelchair Home Equipment Home Adaptive Equipment: None Gait Devices Owned: Front-wheeled walker Wheelchair : Manual, Power Bathroom Equipment: Shower chair with back, Grab bars in shower, Grab bars around toilet Home Living Type of Home: [facility] facility Home Layout: Able to live on [...] and cognitive impairments. Orthopedic/weight bearing restrictions. OBJECTIVE Setevan's NOHARM modalities were used during their therapy [...] needs met and questions answered. Outcome Measures AM-PAC Inpatient Short Form: AM-PAC Basic Mobility [...] Climbing 3-5 steps with a railing?: Total [facility] Basic Mobility (V.2) Raw Score: 9 [facility] Basic Mobility (V.2) Standardized Score: 25.8 Interpretation: Clinicians answer the [facility] Inpatient Short Form based on observed patient [...] the edge of the bed, but required pxzi-ml-lzaw and hand over hand cuing for spa-rw-kxlek transfer with use of front wheeled walker. [...] independence. PT Goal #2: Patient will perform jit-ce-xjxty transfer with least restrictive device with moderate [...] Time (min): 36 min Robi Lord P.T., D.P.TBelkis ING WHEEL OPERATOR ING WHEEL OPERATOR * Christine Meredith O.T., O.TMayela - 01/18/2024 10:15 AM CST Occupational Therapy Acute Hospital Inpatient Evaluation/Treatment SUBJECTIVE [...] Colon, Seizure (HCC), Sleep Apnea, and Stroke ([facility]). Estevan Lester has a past surgical history [...] 59 y.o. male who was admitted to [facility] in [place] on 01/15/2024 for Fracture Femur Shaft Closed Initial Right (HCC) [S72.301A]. Relevant Medical History: L MCA with R residual deficits in May 2023 Prior Function/Occupational Profile Lives With: Other (Comment) (SNF resident) Receives Help From: Facility staff, Family ADL Assistance: Required assistance IADL/Homemaking Assistance: Required assistance Driving: Does not drive Prior Mobility/Functional Transfers Level of [place]: Needs assistance Gait Devices/Wheelchair Used: Manual wheelchair, Power wheelchair, Front wheeled walker Gait Devices/Wheelchair Used Comments: Utilize a front wheeled walker to pivot to and from wheelchair Home Equipment Home Adaptive Equipment: None Gait Devices Owned: Front-wheeled walker Wheelchair : Manual, Power Bathroom Equipment: Shower chair with back, Grab bars in shower, Grab bars around toilet Home Living Type of Home: [facility] facility Home Layout: Able to live on [...] noted Left hand coordination: Functional Outcome Measures: -[facility] Inpatient Short Form: Putting on [...] at or below 17 Clinicians answer the -[facility] Inpatient Short Form based on [...] height with walker x 1 . Aleksandra Reed x3 Stand to Sit Transfers # of [...] Time (min): 39 min Christine Meredith O.T., O.T.DBelkis ING WHEEL OPERATOR * Flores Butterfield, FILOMENA, LD - 01/17/2024 11:38 AM CSTAssociated Order(s): [...] (%) 01/17/24 1118 75 01/17/24 0837 75 01/16/24 2015 75 Current nutrition orders: Current Diet Adult Diet Regular starting at 01/15 1620 GI Function: Last BM Date: 01/15/24, [facility] Stool Chart: Type 6: Fluffy pieces with ragged edges, a mushy stool, Passing Flatus: Yes Weight since admission: Height: 181 cm Admission Weight: 97.8 kg (01/15/2024) Current Weight: 97.8 kg [place] Body Weight (Calculated) : 75.9 kg BMI (Calculated): 29.9 kg/m?? Weight change since admission: 0 kg Net IO Since Admission: 4,299.44 mL [01/17/24 1138] Estimated Needs: Total Calorie Needs: 0172-1922 calories/day Method to Estimate Energy Needs: kcal/kg [...] about patient's nutritional care please contact pager [phone] on weekdays 07:30-16:00 or [phone] on weekends/holidays ([facility]). ING WHEEL OPERATOR * Ramiro Mcgill M.D. - 01/16/2024 4:46 PM CSTAssociated Order(s): IP CONSULT TO VASCULAR MEDICINE Referring Physician: No ref. provider found SUBJECTIVE The patient has been neither seen nor examined; this consultation is based entirely upon information available in the [facility] electronic medical record. CHIEF COMPLAINT / [...] safe. Will sign off. Ramiro Mcgill M.D. ING WHEEL OPERATOR * Kimmie Duval, JUAN RAMON, C.N.P., D.N.P. - 01/16/2024 4:33 PM CSTAssociated Order(s): Diabetes consult (hospital) THIS IS A SIGN ON NOTE for overnight recommendations. Please see DCS consult note on 01/07/24 by Albert Lay CNP for further details. SUBJECTIVE LOS: 1 day DCS was reconsulted by [facility] orthopedic trauma surgery service. DCS will sign [...] and oriented and in agreement. DCS Pager [phone] will continue to follow. Call primary service for diabetes concerns between [phone]. Primary service to contact DCS via hospital continuous absorption process operator for questions. Diabetes consult (hospital) Referring Provider: Flako Loaiza M.D. ING WHEEL OPERATOR * Ac Golden RDN, LD - 01/16/2024 [...] Noted to be missing front teeth. Has JOSE MARIA who follows him at [facility] in [place], [place]. No data found. Nutrition Prior to Admission: Recently seen by the holter scanning technician at [facility] for pressure injury and assessment of [...] not displayed. GI Function:Last BM Date: 01/15/24, [facility] Stool Chart: Type 6: Fluffy pieces with [...] kg 11/28/23 93.7 kg 10/03/23 84.5 kg 06/23/23 87.1 kg 05/15/23 84.9 kg 03/20/23 85 kg 03/15/23 85 kg 03/10/23 85.5 kg 03/07/23 84.6 kg 11/20/22 87.4 kg ASSESSMENT / PLAN Nutrition Diagnosis: Increased nutrient needs related to current illness as evidenced by femur fracture . Initiated Malnutrition Assessment: Needs further assessment Estimated Needs: Total Calorie Needs: 3845-3918 calories/day Method to Estimate Energy Needs: kcal/kg [...] about patient's nutritional care please contact pager [phone] on weekdays 07:30-16:00 or [phone] on weekends/holidays ([facility]). ING WHEEL OPERATOR * Graham Alfonso M.S.W., DinaS.W. - 01/16/2024 12:39 PM CSTAssociated Order(s): IP CONSULT TO CARE MANAGEMENT; IP CONSULT TO CARE MANAGEMENT SUBJECTIVE A full psychosocial was completed on 05/26/23 by Dawn Parks, SHIMON, SENIOR QUALITY MANAGER and should be consulted for further detail. Social work attempted to see Mr. Lester. He was in the OR. Social work contacted his sister artem, Lor Tanner. Lor's guardianship is on file. She stated no other changes had occurred other than his fall and fractured femur. Lor is concerned about his rehabilitation. She is not sure of the best post-operative care fit, chcf facility or [facility]. She would like to see how he does in PT/OT post-operatively. Lor shared that she was a nurse rn case manager hospice for [employer] in the [facility]. She also shared that she is concerned with his consistently low hemoglobin and would like a consult on this issue if possible. OBJECTIVE Mr. Lester is in the OR. ASSESSMENT / PLAN ASSESSMENT N/A PLAN Mr. Lester would like to discharge back to [facility] in [place] if medically appropriate. Social work will follow for support and discharge needs. Tacho Muir, DinaS.W. 01/16/24 ING WHEEL OPERATOR * Ester Vann M.D. - 01/16/2024 8:04 [...] femur. The patient was discharged to a chcf facility on oral antibiotics as well as [...] to our facility where radiographs demonstrated a Dalton B1 periprosthetic fracture about the tip of [...] HISTORY The patient currently lives in a chcf facility. He is otherwise single but has a sister named Lor who is involved with his care. He is from [place], [place]. No evidence of nicotine consumption. ALLERGIES/CONTRAINDICATIONS [...] answered to his satisfaction. Ester Vann M.D. ING WHEEL OPERATOR ING WHEEL OPERATOR * Doug Narvaez M.D. - 01/15/2024 5:51 PM CST SUBJECTIVE Requesting Sustainability Director: Len Hinojosa M.D. I reviewed stapleton components [...] details about our team's plan of care. ING WHEEL OPERATOR * Elvin Boswell M.D. - 01/15/2024 9:38 AM CSTAssociated Order(s): IP CONSULT TO INFECTIOUS DISEASES ORTHOPEDIC INFECTIOUS DISEASES CONSULT NOTE DEMOGRAPHIC INFORMATION Clinic Number:[id number] Patient Name: Estevan Lester Age: 59 y.o. Birthdate: 1965 Sex: male [address]: [address] [place] [id number] Service Date/Time: 01/15/24 9:38 AM CASTING WHEEL OPERATOR Provider: Elvin Boswell M.D. SUBJECTIVE REFERRAL Len [...] indicated.; Surgeon: Mike Cheng M.D.; Location: [facility] OR JOINT REPLACEMENT OTHER CONVERTED SHX (SEE [...] PELVIS.; Surgeon: Vel Vinson M.D., M.B.A.; Location: [facility] OR ALLERGY Allergies Allergen Reactions Cefazolin [...] Closed Initial Right (HCC) Elvin Boswell M.D. ING WHEEL OPERATOR * Estevan Foss M.D. - 01/15/2024 9:36 AM CSTAssociated Order(s): IP CONSULT TO [facility] INTERNAL MEDICINE Medicine Consult - Preoperative [...] > 11% risk Cruz Score (Risk of [place] or arrest within 30 days): 1.5% (totally [...] but deferred as it was unlikely to change of address clerk. Preoperative ECG was obtained. Today, RCRI remains 3. Cruz 1.5%. Unfortunately, he is functionally limited by his prior stroke and recent surgeries, with estimated METS 2.74 by DASI 0. With that said, at this time there are no contraindications to proceeding with surgery. Further risk stratification such as stress testing wouldnot likely change of address clerk, especially in the context of recent successful [...] such as stress testing would not likely change of address clerk, especially in the context of recent successful [...] will continue to follow. Please page the [facility] Medicine Consult Team 2 pager [phone] with any questions or concerns. The above plan of care was discussed with Dr. Narvaez. I personally spent a total of 50 minutes providing and coordinating care today. Estevan Foss M.D. Internal Medicine, PGY 3 ING WHEEL OPERATOR ING WHEEL OPERATOR ING WHEEL OPERATOR * Carla Law M.D. - 01/15/2024 7:04 AM CSTAssociated Order(s): IP CONSULT TO ORTHOPEDIC SURGERY ORTHOPEDIC TRAUMA SURGERY CONSULT NOTE Estevan Lester ([id number]) 59 y.o.male Code: Full REASON FOR CONSULT [...] prophylactic cabling. Hewas subsequently discharged to a chcf facility on oral antibiotics and and a hip abduction brace. He has been trying to maintain his toe-touch weight-bearing activity restrictions. He unfortunately sustained a fall out of bed this morning at a chcf facility and was found down by the [...] Foreshortening of the femur approximately 10 cm. [place] anterior and lateral alignment. Probable small knee [...] with a right periprosthetic femoral shaft fracture (Dalton C). Acute surgical intervention is recommended at [...] to a blood transfusion if necessary. [facility] multidisciplinary team approach wasdiscussed. Activity: NWB RLE Pain: Multimodal regimen including: Tylenol, Oxycodone, Dilaudid PRN VTE Prophylaxis: Heparin 5000u x1 dose the night prior to surgical management. Mechanical prophylaxis with SCDs. Antibiotics: Perioperative Ancef x2 doses. Diet: NPO at midnight Bowel Regimen: Senna scheduled. Bisacodyl suppository and Miralax PRN Cultures: None Catheter: None Code: Full Consults: for early discharge planning, PT/OT, HIM (TALYA) Labs: Preoperative labs ordered (CBC, BMP, PT/INR, Type and Screen) Dispo: Surgery with OTS-3 Between 6:00AM - 6:00PM, Please contact [facility] at [phone] with any questions or concerns regarding management of this patient. Between 6:00PM - 6:00AM, Please [place] [facility] [phone] with questions or concerns regarding management of this patient. Carla Law MD Orthopedic Surgery Resident 01/15/24 7:04 AM CASTING WHEEL OPERATOR ING WHEEL OPERATOR ING WHEEL OPERATOR ING WHEEL OPERATOR documented in this encounter Nursing Notes * Marily Gonzalez R.N. - 01/20/2024 9:11 AM CST Shift Goals: Clinical Goals for the Shift: MAINTAIN SAfety/maintain skin integrity Identify possible barriers to meeting goals/advancing plan of care: none End of Shift Summary: The patient was discharged to a chcf facility. Copies of the patient's dismissal and AVS paperwork were reviewed. Education was provided and all questions were answered. Nurse to nurse report was called to Reanna Rios RN at the receiving facility.All of the patient's belongings were sent with patient. The patient's vitals were obtained and IV was removed. The patient was transported by [facility]. BP 122/63 Pulse 62 Temp 36.4 [...] by: Marily Gonzalez R.N. 01/20/24 9:13 AM CASTING WHEEL OPERATOR ING WHEEL OPERATOR * Susan Garcia R.N. - 01/20/2024 4:43 [...] OF CARE: Continue current plan of care ING WHEEL OPERATOR * Dodie Gill R.N. - 01/18/2024 8:06 [...] by: Dodie Gill R.N. 01/18/24 8:08 PM CASTING WHEEL OPERATOR ING WHEEL OPERATOR * Brittney Ellis R.N. - 01/18/2024 5:07 [...] medications, and discharge instructions Outcome: Not Progressing ING WHEEL OPERATOR * Mary Jo Arguello R.N. - 01/17/2024 [...] ADEQUATE COMFORT LEVEL OR BASELINE Outcome: Progressing ING WHEEL OPERATOR * Brittney Ellis R.N. - 01/16/2024 4:57 AM CST Shift Goals: Clinical Goals for the Shift: maintain safety, pain control Identify possible barriers to meeting goals/advancing plan of care: confusion End of Shift Summary: Patient remained safe and free from fall, but refused blood sugar checks and was resistant to care during the night despite frequent education. Patient able to rest comfortably,but found turns very painful, PRN pain medication used to promote comfort. Problem: SAFETY ADULT Goal: Maintain a safe environment Outcome: Progressing Problem: KNOWLEDGE DEFICIT Goal: Patient/family/caregiver demonstrates understanding of disease process, treatment plan, medications, and discharge instructions Outcome: Not Progressing ING WHEEL OPERATOR * Brittney Ellis R.N. - 01/15/2024 11:19 PM CST RN attempted to get blood sugar and vitals from patient. He refused multiple times despite education. Patient yelling NO at RN when attempting to discuss and educate on cares. ING WHEEL OPERATOR documented in this encounter OR Notes * [...] for a total femur. Ester Vann M.D. ING WHEEL OPERATOR ING WHEEL OPERATOR documented in this encounter ED Notes * Yousif Calderon D.O. - 01/15/2024 8:04 AM CST I have personally seen and examined this patient. I have fully participated in the care of this patient. I have reviewed all clinical information including history, physical exam, orders, and plan. Gagan with the note of the resident. This is a 59-year-old male who presents via EMS from [place]. By report, the patient had an unwitnessed [...] Orthopedic Surgeon. Yousif Calderon D.O. 01/15/24 08 ING WHEEL OPERATOR * Belia Valles R.N. - 01/15/2024 6:02 [...] bilaterally. Elijah stable. Belia Valles R.N. 01/15/24 06 ING WHEEL OPERATOR * Martha Walton D.O., M.H.A. - 01/15/2024 [...] Martha Walton D.O., M.H.A. Resident 01/15/24 0702 ING WHEEL OPERATOR documented in this encounter Miscellaneous Notes * Hospital Course - Lizeth Joe MPAS, P.A.-C. - 01/19/2024 7:17 AM CASTING WHEEL OPERATOR # Right closed displaced periprosthetic femur fracture about the tip of a modular fluted tapered stem s/p ORIF with plate, screw and cable fixation (Dr. Vann, 01/16/24) # Status post mechanical ground-level fall, 01/14/2024 The patient was admitted to [facility] Internal medicine team was consulted to assist [...] therapy was consulted for assistance with mobilization. student services coordinator was consulted to assist with placement. Diet [...] lines, the patient was discharged to a chcf facility. # Status post 2-stage revision arthroplasty [...] bleed # Multiply revised right total hip ING WHEEL OPERATOR ING WHEEL OPERATOR ING WHEEL OPERATOR ING WHEEL OPERATOR documented in this encounter Plan of Treatment Upcoming Encounters Date Type Department Care Team (Latest Contact Info) Description 01/27/2024 12:30 PM CASTING WHEEL OPERATOR Appointment Department of Orthopedic Surgery in [place] [id number] [place] [phone] Lizeth Joe MPAS, PBernie.-C. [address] [place] [phone] Discharge Disposition: Home or Self Care 02/19/2024 1:45 PM CASTING WHEEL OPERATOR Appointment Department of Radiology, [facility] in [address] [phone] Fantasma Butt M.D. [address] [place] [phone] 02/20/2024 11:00 AM CASTING WHEEL OPERATOR Virtual Visit Department of Radiology, [facility], in [address] [phone] Radha Ojeda P.A.-C., M.S. [address] [place] [phone] 04/13/2024 2:00 PM CASTING WHEEL OPERATOR Clinical Communication Virtual Review in [place], [place] [address] [place] [phone] 04/15/2024 12:00 PM CASTING WHEEL OPERATOR Appointment Department of Radiology, [facility], in [address] [phone] Brittney Piña MPAS, P.A.-C. [address] [place] [phone] 04/15/2024 1:00 PM CASTING WHEEL OPERATOR Office Visit Department of Orthopedic Surgery in [address] [phone] Vel Vinson M.D., M.B.A. [address] [place] [phone] Pending Results Name Type Priority Associated Diagnoses Date /Time Prepare Red Blood Cells, 1 Units Blood Bank Routine 01/15/2024 8:24 AM CASTING WHEEL OPERATOR Prepare Red Blood Cells, 1 Units Blood Bank STAT 01/15/2024 8:24 AM CASTING WHEEL OPERATOR Prepare Red Blood Cells, 1 Units Blood Bank Routine 01/15/2024 8:24 AM CASTING WHEEL OPERATOR Prepare Red Blood Cells, 1 Units Blood Bank Routine 01/15/2024 8:24 AM CASTING WHEEL OPERATOR documented as of this encounter Procedures Procedure Name Priority Date/Time Associated Diagnosis Comments HEMOGLOBIN, B STAT 01/20/2024 8:57 AM CASTING WHEEL OPERATOR SARS CORONAVIRUS 2, PCR RAPID, V STAT 01/20/2024 8:35 AM CASTING WHEEL OPERATOR GLUCOSE POCT, B Routine 01/20/2024 7:40 AM CASTING WHEEL OPERATOR GLUCOSE POCT, B Routine 01/20/2024 7:04 AM CASTING WHEEL OPERATOR GLUCOSE POCT, B Routine 01/19/2024 8:14 PM CASTING WHEEL OPERATOR GLUCOSE POCT, B Routine 01/19/2024 4:30 PM CASTING WHEEL OPERATOR GLUCOSE POCT, B Routine 01/19/2024 11:31 AM CASTING WHEEL OPERATOR GLUCOSE POCT, B Routine 01/19/2024 7:50 AM CASTING WHEEL OPERATOR GLUCOSE POCT, B Routine 01/18/2024 9:04 PM CASTING WHEEL OPERATOR GLUCOSE POCT, B Routine 01/18/2024 6:11 PM CASTING WHEEL OPERATOR GLUCOSE POCT, B Routine 01/18/2024 4:33 PM CASTING WHEEL OPERATOR GLUCOSE POCT, B Routine 01/18/2024 11:55 AM CASTING WHEEL OPERATOR GLUCOSE POCT, B Routine 01/18/2024 8:05 AM CASTING WHEEL OPERATOR CBC WITHOUT DIFFERENTIAL, B Routine 01/18/2024 4:17 AM CASTING WHEEL OPERATOR ALKALINE PHOSPHATASE, S/P Routine 01/18/2024 4:17 AM CASTING WHEEL OPERATOR BASIC METABOLIC PANEL, S/P Routine 01/18/2024 4:17 AM CASTING WHEEL OPERATOR GLUCOSE POCT, B Routine 01/18/2024 1:44 AM CASTING WHEEL OPERATOR GLUCOSE POCT, B Routine 01/17/2024 8:35 PM CASTING WHEEL OPERATOR HEMOGLOBIN, B STAT 01/17/2024 5:03 PM CASTING WHEEL OPERATOR POTASSIUM, S/P STAT 01/17/2024 5:03 PM CASTING WHEEL OPERATOR GLUCOSE POCT, B Routine 01/17/2024 5:01 PM CASTING WHEEL OPERATOR GLUCOSE POCT, B Routine 01/17/2024 11:37 AM CASTING WHEEL OPERATOR TRANSFUSE RED BLOOD CELLS Routine 01/17/2024 9:36 AM CASTING WHEEL OPERATOR GLUCOSE POCT, B Routine 01/17/2024 7:51 AM CASTING WHEEL OPERATOR CBC WITHOUT DIFFERENTIAL, B Routine 01/17/2024 6:08 AM CASTING WHEEL OPERATOR ALKALINE PHOSPHATASE, S/P Routine 01/17/2024 6:08 AM CASTING WHEEL OPERATOR BASIC METABOLIC PANEL, S/P Routine 01/17/2024 6:08 AM CASTING WHEEL OPERATOR GLUCOSE POCT, B Routine 01/17/2024 2:09 AM CASTING WHEEL OPERATOR GLUCOSE POCT, B Routine 01/16/2024 8:16 PM CASTING WHEEL OPERATOR GLUCOSE POCT, B Routine 01/16/2024 5:45 PM CASTING WHEEL OPERATOR GLUCOSE POCT, B Routine 01/16/2024 3:15 PM CASTING WHEEL OPERATOR ADULT OXYGEN THERAPY Routine 01/16/2024 3:07 PM CASTING WHEEL OPERATOR DX FEMUR RIGHT 2 VIEWS RAD - Routine (most inpatients and all outpatients) 01/16/2024 3:00 PM CASTING WHEEL OPERATOR PATIENT STATUS, ABG STAT 01/16/2024 1 :17 PM CASTING WHEEL OPERATOR SODIUM, B STAT 01/16/2024 1:17 PM CASTING WHEEL OPERATOR ABG W/COOX STAT 01/16/2024 1:17 PM CASTING WHEEL OPERATOR POTASSIUM, B STAT 01/16/2024 1:17 PM CASTING WHEEL OPERATOR GLUCOSE, WHOLE BLOOD STAT 01/16/2024 1:17 PM CASTING WHEEL OPERATOR CALCIUM, IONIZED, S/B STAT 01/16/2024 1:17 PM CASTING WHEEL OPERATOR AUTOLOGOUS RED BLOOD CELLS-CELL SALVAGE Routine 01/16/2024 12:48 PM CASTING WHEEL OPERATOR FL FLUORO LESS THAN 1 HOUR RAD - Routine (most inpatients and all outpatients) 01/16/2024 12:43 PM CASTING WHEEL OPERATOR PATIENT STATUS, ABG STAT 01/16/2024 12:02 PM CASTING WHEEL OPERATOR SODIUM, B STAT 01/16/2024 12:02 PM CASTING WHEEL OPERATOR ABG W/COOX STAT 01/16/2024 12:02 PM CASTING WHEEL OPERATOR POTASSIUM, B STAT 01/16/2024 12:02 PM CASTING WHEEL OPERATOR GLUCOSE, WHOLE BLOOD STAT 01/16/2024 12:02 PM CASTING WHEEL OPERATOR CALCIUM, IONIZED, S/B STAT 01/16/2024 12:02 PM CASTING WHEEL OPERATOR TRANSFUSE RED BLOOD CELLS Routine 01/16/2024 11:08 AM CASTING WHEEL OPERATOR PATIENT STATUS, ABG STAT 01/16/2024 11:00 AM CASTING WHEEL OPERATOR SODIUM, B STAT 01/16/2024 11:00 AM CASTING WHEEL OPERATOR ABG W/COOX STAT 01/16/2024 11:00 AM CASTING WHEEL OPERATOR POTASSIUM, B STAT 01/16/2024 11:00 AM CASTING WHEEL OPERATOR GLUCOSE, WHOLE BLOOD STAT 01/16/2024 11:00 AM CASTING WHEEL OPERATOR CALCIUM, IONIZED, S/B STAT 01/16/2024 11:00 AM CASTING WHEEL OPERATOR TRANSFUSE RED BLOOD CELLS Routine 01/16/2024 9:58 AM CASTING WHEEL OPERATOR PATIENT STATUS, ABG STAT 01/16/2024 9 :32 AM CASTING WHEEL OPERATOR SODIUM, B STAT 01/16/2024 9:32 AM CASTING WHEEL OPERATOR ABG W/COOX STAT 01/16/2024 9:32 AM CASTING WHEEL OPERATOR POTASSIUM, B STAT 01/16/2024 9:32 AM CASTING WHEEL OPERATOR GLUCOSE, WHOLE BLOOD STAT 01/16/2024 9:32 AM CASTING WHEEL OPERATOR CALCIUM, IONIZED, S/B STAT 01/16/2024 9:32 AM CASTING WHEEL OPERATOR SURGICAL MANAGEMENT SHAFT FRACTURE FEMUR 01/16/2024 7:45 AM CASTING WHEEL OPERATOR Fracture Periprosthetic Hip Initial Right (HCC) GLUCOSE POCT, B Routine 01/16/2024 5:31 AM CASTING WHEEL OPERATOR HEMOGLOBIN, B Routine 01/15/2024 8:04 PM CASTING WHEEL OPERATOR GLUCOSE POCT, B Routine 01/15/2024 4:15 PM CASTING WHEEL OPERATOR TRANSFUSE RED BLOOD CELLS Routine 01/15/2024 10:50 AM CASTING WHEEL OPERATOR GLUCOSE POCT, B Routine 01/15/2024 10:00 AM CASTING WHEEL OPERATOR DX SHOULDER RIGHT 2+ VIEWS RAD - Semiurgent (Fast; most ED patients; some inpatients) 01/15/2024 8:42 AM CASTING WHEEL OPERATOR TROPONIN T, 2H/6H REFLEX, 5TH GEN, P Timed 01/15/2024 8:24 AM CASTING WHEEL OPERATOR PREPARE RED BLOOD CELLS Routine 01/15/2024 8:24 AM CASTING WHEEL OPERATOR PREPARE RED BLOOD CELLS Routine 01/15/2024 8:24 AM CASTING WHEEL OPERATOR PREPARE RED BLOOD CELLS STAT 01/15/2024 8:24 AM CASTING WHEEL OPERATOR PREPARE RED BLOOD CELLS Routine 01/15/2024 8:24 AM CASTING WHEEL OPERATOR TYPE AND SCREEN Routine 01/15/2024 8:24 AM CASTING WHEEL OPERATOR CT FEMUR RIGHT WITHOUT IV CONTRAST RAD - Routine (most inpatients and all outpatients) 01/15/2024 8:02 AM CASTING WHEEL OPERATOR CT THORACIC AND LUMBAR SPINE BY RECONSTRUCTION RAD - Semiurgent (Fast; most ED patients; some inpatients) 01/15/2024 6:51 AM CASTING WHEEL OPERATOR CT ABDOMEN PELVIS WITH IV CONTRAST RAD - Semiurgent (Fast; most ED patients; some inpatients) 01/15/2024 6:51 AM CASTING WHEEL OPERATOR CT CERVICAL SPINE WITHOUT IV CONTRAST RAD - Semiurgent (Fast; most ED patients; some inpatients) 01/15/2024 6:51 AM CASTING WHEEL OPERATOR CT CHEST WITH IV CONTRAST RAD - Semiurgent (Fast; most ED patients; some inpatients) 01/15/2024 6:51 AM CASTING WHEEL OPERATOR CT HEAD WITHOUT IV CONTRAST RAD - Semiurgent (Fast; most ED patients; some inpatients) 01/15/2024 6:51 AM CASTING WHEEL OPERATOR DX HIP AND PELVIS LEFT 2-3 VIEWS RAD - Semiurgent (Fast; most ED patients; some inpatients) 01/15/2024 6:42 AM CASTING WHEEL OPERATOR DX CHEST 1 VIEW RAD - Semiurgent (Fast; most ED patients; some inpatients) 01/15/2024 6:40 AM CASTING WHEEL OPERATOR DX FEMUR RIGHT 2 VIEWS RAD - Semiurgent (Fast; most ED patients; some inpatients) 01/15/2024 6:40 AM CASTING WHEEL OPERATOR TROPONIN T, BASELINE, 5TH GEN, P STAT 01/15/2024 5:58 AM CASTING WHEEL OPERATOR HEPATIC FUNCTION PANEL, S STAT 01/15/2024 5:58 AM CASTING WHEEL OPERATOR PROTHROMBIN TIME (PT), P STAT 01/15/2024 5:58 AM CASTING WHEEL OPERATOR CBC WITH DIFFERENTIAL, B STAT 01/15/2024 5:58 AM CASTING WHEEL OPERATOR LIPASE, S/P STAT 01/15/2024 5:58 AM CASTING WHEEL OPERATOR LACTATE, B/P STAT 01/15/2024 5:58 AM CASTING WHEEL OPERATOR CREATINE KINASE (CK), S STAT 01/15/2024 5:58 AM CASTING WHEEL OPERATOR BASIC METABOLIC PANEL, S/P STAT 01/15/2024 5:58 AM CASTING WHEEL OPERATOR ECG Routine 01/15/2024 5:42 AM CASTING WHEEL OPERATOR documented in this encounter Results * (ABNORMAL) Hemoglobin (01/20/2024 8:57 AM CASTING WHEEL OPERATOR) Hemoglobin 8.6(L) 13.2 - 16.6 g/dL 01/20/2024 9:07 AM CASTING WHEEL OPERATOR STMA Blood 01/20/2024 8:57 AM CASTING WHEEL OPERATOR 01/20/2024 9:06 AM CASTING WHEEL OPERATOR us Lizeth IRWIN, P.A.-C. LAB BLOOD ADD-ON Final Result [facility] [employer] [facility] [address] [place], [place] [address] [address] [place] [address] * SARS Coronavirus 2, PCR Rapid Symptomatic (01/20/2024 8:35 AM CASTING WHEEL OPERATOR) SARS CoV-2, PCR, Rapid, V Undetected Undetected 01/20/2024 9:04 AM CASTING WHEEL OPERATOR STMA SARS Coronavirus 2, Rapid, Source Swab, Nasopharynx 01/20/2024 8:42 AM CASTING WHEEL OPERATOR STMA Swab (Nasopharynx) 01/20/2024 8:35 AM CASTING WHEEL OPERATOR 01/20/2024 8:42 AM CASTING WHEEL OPERATOR us Lizeth IRWIN, P.A.-C. LAB MICROBIOLOGY - GENERAL ORDERABLES Final Result Performing Organization Address City/[facility]/ZIP Co de Phone Number [facility] [address] [place], [place] [phone] [place] [address] 200 [place] [address] * Glucose, POCT (01/20/2024 7:40 AM CASTING WHEEL OPERATOR) Glucose, POCT, B 115 70 - 140 mg/dL 01/20/2024 7:43 AM CASTING WHEEL OPERATOR PCLX Blood 01/20/2024 7:40 AM CASTING WHEEL OPERATOR 01/20/2024 7:43 AM CASTING WHEEL OPERATOR us Unknown Provider LAB POCT ORDERABLES-MANUAL Cata l Result POC [facility] [address] [place] [address], [facility] PCLX [facility] POC [address] [place] [address] * Glucose, POCT (01/20/2024 7:04 AM CASTING WHEEL OPERATOR) Glucose, POCT, B 106 70 - 140 mg/dL 01/20/2024 7:06 AM CASTING WHEEL OPERATOR PCLX Site Capillary 01/20/2024 7:06 AM CASTING WHEEL OPERATOR PCLX Blood 01/20/2024 7:04 AM CASTING WHEEL OPERATOR 01/20/2024 7:07 AM CASTING WHEEL OPERATOR us Unknown Provider LAB POCT ORDERABLES-MANUAL Cata l Result Performing Organization Address City/[facility]/ZIP Co de Phone Number [facility] [address] [place] [address], [facility] PCLX [facility] [address] [place] [address] * (ABNORMAL) Glucose, POCT (01/19/2024 8:14 PM CASTING WHEEL OPERATOR) Glucose, POCT, B 141(H) 70 - 140 mg/dL 01/19/2024 8:19 PM CASTING WHEEL OPERATOR PCLX Site Capillary 01/19/2024 8:19 PM CASTING WHEEL OPERATOR PCLX Blood 01/19/2024 8:14 PM CASTING WHEEL OPERATOR 01/19/2024 8:19 PM CASTING WHEEL OPERATOR us Unknown Provider LAB POCT ORDERABLES-MANUAL Cata l Result Performing Organization Address [facility] Co de Phone Number [facility] [address] [place] [address], [place] [facility] [address] [place] [address] * (ABNORMAL) Glucose, POCT (01/19/2024 4:30 PM CASTING WHEEL OPERATOR) Glucose, POCT, B 141(H) 70 - 140 mg/dL 01/19/2024 4:32 PM CASTING WHEEL OPERATOR PCLX Site Capillary 01/19/2024 4:32 PM CASTING WHEEL OPERATOR PCLX Blood 01/19/2024 4:30 PM CASTING WHEEL OPERATOR 01/19/2024 4:32 PM CASTING WHEEL OPERATOR us Unknown Provider LAB POCT ORDERABLES-MANUAL Cata l Result Performing Organization Address City/[facility]/ZIP Co de Phone Number [facility] [address] [place] [address], [facility] [address] [place] [address] * (ABNORMAL) Glucose, POCT (01/19/2024 11:31 AM CASTING WHEEL OPERATOR) Glucose, POCT, B 178(H) 70 - 140 mg/dL 01/19/2024 11:32 AM CASTING WHEEL OPERATOR PCLX Site Capillary 01/19/2024 11:32 AM CASTING WHEEL OPERATOR PCLX Blood 01/19/2024 11:3 1 AM CASTING WHEEL OPERATOR 01/19/2024 11:33 AM CASTING WHEEL OPERATOR us Unknown Provider LAB POCT ORDERABLES-MANUAL Cata l Result Performing Organization Address City/[facility]/ZIP Co de Phone Number [facility] [address] [place] [address], [place] [facility] [address] [place] [address] * Glucose, POCT (01/19/2024 7:50 AM CASTING WHEEL OPERATOR) Glucose, POCT, B 103 70 - 140 mg/dL 01/19/2024 7:53 AM CASTING WHEEL OPERATOR PCLX Site Capillary 01/19/2024 7:53 AM CASTING WHEEL OPERATOR PCLX Blood 01/19/2024 7:50 AM CASTING WHEEL OPERATOR 01/19/2024 7:53 AM CASTING WHEEL OPERATOR us Unknown Provider LAB POCT ORDERABLES-MANUAL Cata l Result Performing Organization Address City/[facility]/ZIP Co de Phone Number [facility] [address] [place] [address], [facility] [address] [place] [address] * Glucose, POCT (01/18/2024 9:04 PM CASTING WHEEL OPERATOR) Glucose, POCT, B 99 70 - 140 mg/dL 01/18/2024 9:21 PM CASTING WHEEL OPERATOR PCLX Site Capillary 01/18/2024 9:21 PM CASTING WHEEL OPERATOR PCLX Last Intake 2-3 hours 01/18/2024 9:21 PM CASTING WHEEL OPERATOR PCLX Blood 01/18/2024 9:04 PM CASTING WHEEL OPERATOR 01/18/2024 9:21 PM CASTING WHEEL OPERATOR us Unknown Provider LAB POCT ORDERABLES-MANUAL Cata l Result Performing Organization Address City/[facility]/ZIP Co de Phone Number [facility] [address] [place] [address], [place] [facility] [address] [place] [address] * Glucose, POCT (01/18/2024 6:11 PM CASTING WHEEL OPERATOR) Glucose, POCT, B 109 70 - 140 mg/dL 01/18/2024 6:13 PM CASTING WHEEL OPERATOR PCLX Site Capillary 01/18/2024 6:13 PM CASTING WHEEL OPERATOR PCLX Blood 01/18/2024 6:11 PM CASTING WHEEL OPERATOR 01/18/2024 6:13 PM CASTING WHEEL OPERATOR us Unknown Provider LAB POCT ORDERABLES-MANUAL Edit ed Result - Final Performing Organization Address [facility]/ZIP Co de Phone Number [facility] [address] [place] [address], [facility] [address] [place] [address] * Glucose, POCT (01/18/2024 4:33 PM CASTING WHEEL OPERATOR) Glucose, POCT, B 83 70 - 140 mg/dL 01/18/2024 4:49 PM CASTING WHEEL OPERATOR PCLX Site Capillary 01/18/2024 4:49 PM CASTING WHEEL OPERATOR PCLX Blood 01/18/2024 4:33 PM CASTING WHEEL OPERATOR 01/18/2024 4:50 PM CASTING WHEEL OPERATOR us Unknown Provider LAB POCT ORDERABLES-MANUAL Cata l Result Performing Organization Address [facility]/ZIP Co de Phone Number [facility] [address] [place] [address], [facility] [address] [place] [address] * Glucose, POCT (01/18/2024 11:55 AM CASTING WHEEL OPERATOR) Glucose, POCT, B 133 70 - 140 mg/dL 01/18/2024 11:59 AM CASTING WHEEL OPERATOR PCLX Site Capillary 01/18/2024 11:59 AM CASTING WHEEL OPERATOR PCLX Blood 01/18/2024 11:5 5 AM CASTING WHEEL OPERATOR 01/18/2024 11:59 AM CASTING WHEEL OPERATOR us Unknown Provider LAB POCT ORDERABLES-MANUAL Cata l Result Performing Organization Address City/[facility]/ZIP Co de Phone Number [facility] [address] [place] [address], [facility] [address] [place] [address] * Glucose, POCT (01/18/2024 8:05 AM CASTING WHEEL OPERATOR) Glucose, POCT, B 111 70 - 140 mg/dL 01/18/2024 8:22 AM CASTING WHEEL OPERATOR PCLX Site Capillary 01/18/2024 8:22 AM CASTING WHEEL OPERATOR PCLX Blood 01/18/2024 8:05 AM CASTING WHEEL OPERATOR 01/18/2024 8:23 AM CASTING WHEEL OPERATOR us Unknown Provider LAB POCT ORDERABLES-MANUAL Cata l Result Performing Organization Address [facility] Co de Phone Number [facility] [address] [place] [address], [facility] [address] [place] [address] * (ABNORMAL) Basic Metabolic Panel (01/18/2024 4:17 AM CASTING WHEEL OPERATOR) Potassium, S 4.9 3.6 - 5.2 mmol/L 01/18/2024 5:34 AM CASTING WHEEL OPERATOR DTL Sodium, S 137 135 - 145 mmol/L 01/18/2024 5:34 AM CASTING WHEEL OPERATOR DTL Chloride, S 103 98 - 107 mmol/L 01/18/2024 5:34 AM CASTING WHEEL OPERATOR DTL Bicarbonate, S 26 22 - 29 mmol/L 01/18/2024 5:34 AM CASTING WHEEL OPERATOR DTL Anion Gap 8 7 - 15 01/18/2024 5:34 AM CASTING WHEEL OPERATOR DTL BUN (Blood Urea Nitrogen), S 35(H) 8 - 24 mg/dL 01/18/2024 5:34 AM CASTING WHEEL OPERATOR DTL Creatinine 1.04 0.74 - 1.35 mg/dL 01/18/2024 5:34 AM CASTING WHEEL OPERATOR DTL Estimated GFR (eGFR) 83 >=60 mL/min/BSA 01/18/2024 5:34 AM CASTING WHEEL OPERATOR DTL Comment: Estimated GFR calculated using the 2020 CKD_EPI creatinine equation. Calcium, Total, S 9.0 8.6 - 10.0 mg/dL 01/18/2024 5:34 AM CASTING WHEEL OPERATOR DTL Glucose, S 104 70 - 140 mg/dL 01/18/2024 5:34 AM CASTING WHEEL OPERATOR DTL Blood (Blood, Venous) 01/18/2024 4:17 AM CASTING WHEEL OPERATOR 01/18/2024 5:18 AM CASTING WHEEL OPERATOR Flako Loaiza M.D. LAB BLOOD ADD-ON Final Res ult Performing Organization Address City/[facility]/ZIP Co de Phone Number [facility] [address] [place], [place] [id number] [place] [address] [facility] [address] [place] [address] * (ABNORMAL) CBC without Differential (01/18/2024 4:17 AM CASTING WHEEL OPERATOR) Pathologist [facility] Hemoglobin 8.8(L) 13.2 - 16.6 g/dL 01/18/2024 5:34 AM CASTING WHEEL OPERATOR DTL Hematocrit 26.6(L) 38.3 - 48.6 % 01/18/2024 5:34 AM CASTING WHEEL OPERATOR DTL Erythrocytes 2.97(L) 4.35 - 5.65 x10(12)/L 01/18/2024 5:34 AM CASTING WHEEL OPERATOR DTL MCV 89.6 78.2 - 97.9 fL 01/18/2024 5:34 AM CASTING WHEEL OPERATOR DTL RBC Distrib Width 15.9(H) 11.8 - 14.5 % 01/18/2024 5:34 AM CASTING WHEEL OPERATOR DTL Platelet Count 243 135 - 317 x10(9)/L 01/18/2024 5:34 AM CASTING WHEEL OPERATOR DTL Leukocytes 15.3(H) 3.4 - 9.6 x10(9)/L 01/18/2024 5:34 AM CASTING WHEEL OPERATOR DTL Blood (Blood, Venous) 01/18/2024 4:17 AM CASTING WHEEL OPERATOR 01/18/2024 5:10 AM CASTING WHEEL OPERATOR Flako Loaiza M.D. LAB BLOOD ADD-ON Final Res ult [facility] [address] [place] [address], [facility] DTL [facility] [address] [place] [address] * (ABNORMAL) Alkaline Phosphatase (01/18/2024 4:17 AM CASTING WHEEL OPERATOR) Alkaline Phosphatase, S 137(H) 40 - 129 U/L 01/18/2024 5:34 AM CASTING WHEEL OPERATOR DTL Blood (Blood, Venous) 01/18/2024 4:17 AM CASTING WHEEL OPERATOR 01/18/2024 5:18 AM CASTING WHEEL OPERATOR Flako Loaiza M.D. LAB BLOOD ADD-ON Final Res ult [facility] [address] [place] [address], [facility] [address] [place] [address] * Glucose, POCT (01/18/2024 1:44 AM CASTING WHEEL OPERATOR) Glucose, POCT, B 111 70 - 140 mg/dL 01/18/2024 1:46 AM CASTING WHEEL OPERATOR PCLX Site Capillary 01/18/2024 1:46 AM CASTING WHEEL OPERATOR PCLX Blood 01/18/2024 1:44 AM CASTING WHEEL OPERATOR 01/18/2024 1:46 AM CASTING WHEEL OPERATOR Unknown Provider LAB POCT ORDERABLES-MANUAL Cata l Result [facility] [address] [place] [address], [facility] [address] [place] [address] * Glucose, POCT (01/17/2024 8:35 PM CASTING WHEEL OPERATOR) Glucose, POCT, B 109 70 - 140 mg/dL 01/17/2024 8:38 PM CASTING WHEEL OPERATOR PCLX Site Capillary 01/17/2024 8:38 PM CASTING WHEEL OPERATOR PCLX Last Intake 3-4 hours 01/17/2024 8:38 PM CASTING WHEEL OPERATOR PCLX Blood 01/17/2024 8:35 PM CASTING WHEEL OPERATOR 01/17/2024 8:38 PM CASTING WHEEL OPERATOR Unknown Provider LAB POCT ORDERABLES-MANUAL Cata l Result Performing Organization Address City/[facility]/ZIP Co de Phone Number [facility] [address] [place] [address], [facility] [address] [place] [address] * Potassium (01/17/2024 5:03 PM CASTING WHEEL OPERATOR) Potassium, P 5.0 3.6 - 5.2 mmol/L 01/17/2024 5:19 PM CASTING WHEEL OPERATOR ST[facility] Blood (Blood, Venous) 01/17/2024 5:03 PM CASTING WHEEL OPERATOR 01/17/2024 5:07 PM CASTING WHEEL OPERATOR Daljit Zavala M.D. LAB BLOOD ADD-ON Final Resul t Performing Organization Address City/[facility] Co de Phone Number [facility] [address] [facility] [address] [place] [address] * (ABNORMAL) Hemoglobin (01/17/2024 5:03 PM CASTING WHEEL OPERATOR) Hemoglobin 8.5(L) 13.2 - 16.6 g/dL 01/17/2024 5:09 PM CASTING WHEEL OPERATOR [facility] Blood (Blood, Venous) 01/17/2024 5:03 PM CASTING WHEEL OPERATOR 01/17/2024 5:07 PM CASTING WHEEL OPERATOR Daljit Zavala M.D. LAB BLOOD ADD-ON Final Resul t Performing Organization Address City/[facility]/ZIP Co de Phone Number [facility] [address] [place] [address] * (ABNORMAL) Glucose, POCT (01/17/2024 5:01 PM CASTING WHEEL OPERATOR) Glucose, POCT, B 141(H) 70 - 140 mg/dL 01/17/2024 5:04 PM CASTING WHEEL OPERATOR PCLX Site Capillary 01/17/2024 5:04 PM CASTING WHEEL OPERATOR PCLX Last Intake 3-4 hours 01/17/2024 5:04 PM CASTING WHEEL OPERATOR PCLX Blood 01/17/2024 5:01 PM CASTING WHEEL OPERATOR 01/17/2024 5:04 PM CASTING WHEEL OPERATOR Unknown Provider LAB POCT ORDERABLES-MANUAL Cata l Result Performing Organization Address [facility]/ZIP Co de Phone Number [facility] [address] [place] [address], [place] [facility] [address] [place] [address] * Transfuse Red Blood Cells : (01/17/2024 12:51 PM CASTING WHEEL OPERATOR) us Daljit Zavala M.D. BLOOD TRANSFUSION ORDERABLES Final Result * Transfuse Red Blood Cells : , 1 Units (01/17/2024 12:51 PM CASTING WHEEL OPERATOR) Result Briseida Zavala M.D. BLOOD TRANSFUSION ORDERABLES Final Result * (ABNORMAL) Glucose, POCT (01/17/2024 11:37 AM CASTING WHEEL OPERATOR) Glucose, POCT, B 172(H) 70 - 140 mg/dL 01/17/2024 11:41 AM CASTING WHEEL OPERATOR PCLX Site Capillary 01/17/2024 11:41 AM CASTING WHEEL OPERATOR PCLX Last Intake 2-3 hours 01/17/2024 11:41 AM CASTING WHEEL OPERATOR PCLX Blood 01/17/2024 11:3 7 AM CASTING WHEEL OPERATOR 01/17/2024 11:41 AM CASTING WHEEL OPERATOR us Unknown Provider LAB POCT ORDERABLES-MANUAL Cata l Result Performing Organization Address City/[facility]/ZIP Co de Phone Number [facility] [address] [place] [address], [place] [facility] [address] [place] [address] * (ABNORMAL) Glucose, POCT (01/17/2024 7:51 AM CASTING WHEEL OPERATOR) Glucose, POCT, B 169(H) 70 - 140 mg/dL 01/17/2024 7:53 AM CASTING WHEEL OPERATOR PCLX Site Capillary 01/17/2024 7:53 AM CASTING WHEEL OPERATOR PCLX Last Intake > 4 hours 01/17/2024 7:53 AM CASTING WHEEL OPERATOR PCLX Blood 01/17/2024 7:51 AM CASTING WHEEL OPERATOR 01/17/2024 7:54 AM CASTING WHEEL OPERATOR us Unknown Provider LAB POCT ORDERABLES-MANUAL Cata l Result [facility] [address] [place] [address], [facility] PCLX [facility] [address] [place] [address] * (ABNORMAL) Basic Metabolic Panel (01/17/2024 6:08 AM CASTING WHEEL OPERATOR) Potassium, S 5.7(H) 3.6 - 5.2 mmol/L 01/17/2024 7:54 AM CASTING WHEEL OPERATOR DTL Sodium, S 139 135 - 145 mmol/L 01/17/2024 7:54 AM CASTING WHEEL OPERATOR DTL Chloride, S 103 98 - 107 mmol/L 01/17/2024 7:54 AM CASTING WHEEL OPERATOR DTL Bicarbonate, S 23 22 - 29 mmol/L 01/17/2024 7:54 AM CASTING WHEEL OPERATOR DTL Anion Gap 13 7 - 15 01/17/2024 7:54 AM CASTING WHEEL OPERATOR DTL BUN (Blood Urea Nitrogen), S 33(H) 8 - 24 mg/dL 01/17/2024 7:54 AM CASTING WHEEL OPERATOR DTL Creatinine 1.04 0.74 - 1.35 mg/dL 01/17/2024 7:54 AM CASTING WHEEL OPERATOR DTL Estimated GFR (eGFR) 83 >=60 mL/min/BSA 01/17/2024 7:54 AM CASTING WHEEL OPERATOR DTL Comment: Estimated GFR calculated using the 2020 CKD_EPI creatinine equation. Calcium, Total, S 8.5(L) 8.6 - 10.0 mg/dL 01/17/2024 7:54 AM CASTING WHEEL OPERATOR DTL Glucose, S 178(H) 70 - 140 mg/dL 01/17/2024 7:54 AM CASTING WHEEL OPERATOR DTL Blood (Blood, Venous) 01/17/2024 6:08 AM CASTING WHEEL OPERATOR 01/17/2024 6:40 AM CASTING WHEEL OPERATOR us Flako Loaiza M.D. LAB BLOOD ADD-ON Final Res ult Performing Organization Address [facility] Co de Phone Number [facility] [address] [place], [place] [address] [place] [address] 200 [place] [address] * (ABNORMAL) CBC without Differential (01/17/2024 6:08 AM CASTING WHEEL OPERATOR) Pathologist [facility] Hemoglobin 7.6(L) 13.2 - 16.6 g/dL 01/17/2024 6:32 AM CASTING WHEEL OPERATOR DTL Hematocrit 23.5(L) 38.3 - 48.6 % 01/17/2024 6:32 AM CASTING WHEEL OPERATOR DTL Erythrocytes 2.61(L) 4.35 - 5.65 x10(12)/L 01/17/2024 6:32 AM CASTING WHEEL OPERATOR DTL MCV 90.0 78.2 - 97.9 fL 01/17/2024 6:32 AM CASTING WHEEL OPERATOR DTL RBC Distrib Width 14.3 11.8 - 14.5 % 01/17/2024 6:32 AM CASTING WHEEL OPERATOR DTL Platelet Count 226 135 - 317 x10(9)/L 01/17/2024 6:32 AM CASTING WHEEL OPERATOR DTL Leukocytes 15.2(H) 3.4 - 9.6 x10(9)/L 01/17/2024 6:32 AM CASTING WHEEL OPERATOR DTL Blood (Blood, Venous) 01/17/2024 6:08 AM CASTING WHEEL OPERATOR 01/17/2024 6:26 AM CASTING WHEEL OPERATOR Flako Loaiza M.D. LAB BLOOD ADD-ON Final Res ult [facility] [address] [place] [address], [facility] [address] [place] [address] * (ABNORMAL) Alkaline Phosphatase (01/17/2024 6:08 AM CASTING WHEEL OPERATOR) Alkaline Phosphatase, S 132(H) 40 - 129 U/L 01/17/2024 7:54 AM CASTING WHEEL OPERATOR DTL Blood (Blood, Venous) 01/17/2024 6:08 AM CASTING WHEEL OPERATOR 01/17/2024 6:40 AM CASTING WHEEL OPERATOR Flako Loaiza M.D. LAB BLOOD ADD-ON Final Res ult [facility] [address] [place] [address], [place] D[place] [facility] [address] [place] [address] * (ABNORMAL) Glucose, POCT (01/17/2024 2:09 AM CASTING WHEEL OPERATOR) Glucose, POCT, B 232(H) 70 - 140 mg/dL 01/17/2024 2:15 AM CASTING WHEEL OPERATOR PCLX Site Capillary 01/17/2024 2:15 AM CASTING WHEEL OPERATOR PCLX Last Intake 2-3 hours 01/17/2024 2:15 AM CASTING WHEEL OPERATOR PCLX Blood 01/17/2024 2:09 AM CASTING WHEEL OPERATOR 01/17/2024 2:15 AM CASTING WHEEL OPERATOR us Unknown Provider LAB POCT ORDERABLES-MANUAL Cata l Result Performing Organization Address [facility] Co de Phone Number [facility] [address] [place] [address], [facility] [address] [place] [address] * (ABNORMAL) Glucose, POCT (01/16/2024 8:16 PM CASTING WHEEL OPERATOR) Glucose, POCT, B 213(H) 70 - 140 mg/dL 01/16/2024 9:15 PM CASTING WHEEL OPERATOR PCLX Last Intake 3-4 hours 01/16/2024 9:15 PM CASTING WHEEL OPERATOR PCLX Blood 01/16/2024 8:16 PM CASTING WHEEL OPERATOR 01/16/2024 9:15 PM CASTING WHEEL OPERATOR us Unknown Provider LAB POCT ORDERABLES-MANUAL Cata l Result Performing Organization Address City/[facility]/ZIP Co de Phone Number [facility] [address] [place] [address], [place] [facility] [address] [place] [address] * (ABNORMAL) Glucose, POCT (01/16/2024 5:45 PM CASTING WHEEL OPERATOR) Glucose, POCT, B 210(H) 70 - 140 mg/dL 01/16/2024 5:47 PM CASTING WHEEL OPERATOR PCLX Blood 01/16/2024 5:45 PM CASTING WHEEL OPERATOR 01/16/2024 5:48 PM CASTING WHEEL OPERATOR us Unknown Provider LAB POCT ORDERABLES-MANUAL Cata l Result Performing Organization Address City/[facility]/ZIP Co de Phone Number [facility] [address] [place] [address], [facility] [address] [place] [address] * (ABNORMAL) Glucose, POCT (01/16/2024 3:15 PM CASTING WHEEL OPERATOR) Glucose, POCT, B 189(H) 70 - 140 mg/dL 01/16/2024 4:01 PM CASTING WHEEL OPERATOR PCLX Site Capillary 01/16/2024 4:01 PM CASTING WHEEL OPERATOR PCLX Blood 01/16/2024 3:15 PM CASTING WHEEL OPERATOR 01/16/2024 4:01 PM CASTING WHEEL OPERATOR us Unknown Provider LAB POCT ORDERABLES-MANUAL Cata l Result Performing Organization Address [facility] Co de Phone Number [facility] [address] [place] [address], [facility] [address] [place] [address] * DX Femur Right 2 Views (01/16/2024 3:00 PM CASTING WHEEL OPERATOR) Anatomical Region Laterality Modality Lower Extremity, Femur, Musc uloskeletal RST LOS, Musculoskeletal ARZ LOS, Muskuloskeletal FLA LOS Right Digit al Radiography Impressions 01/16/2024 3:08 PM CASTING WHEEL OPERATOR Metallic plate and multiscrew fixation of the periprosthetic femoral fracture. No gross hardware failure. Drains. Narrative 01/16/2024 3:08 PM CASTING WHEEL OPERATOR EXAM: DX FEMUR RIGHT 2 VIEWS Procedure Note Boyd Kwong D.O. - 01/16/2024 EXAM: DX FEMUR RIGHT 2 VIEWS IMPRESSION: Metallic plate and multiscrew fixation of the periprosthetic femoralfracture. No gross hardware failure. Drains. Ester Vann M.D. IMG DIAGNOSTIC IMAGING PRO CEDURES Final Result * Patient Status (01/16/2024 1:17 PM CASTING WHEEL OPERATOR) Temperature 36.7 37.0 deg C 01/16/2024 1:17 PM CASTING WHEEL OPERATOR [facility] FIO2 0.38 0.21=AIR 01/16/2024 1:17 PM CASTING WHEEL OPERATOR [facility] Blood 01/16/2024 1:17 PM CASTING WHEEL OPERATOR 01/16/2024 1:17 PM CASTING WHEEL OPERATOR Mariel Beckman R.N. LAB BLOOD NON ADD-ON Fi nal Result Performing Organization Address City/[facility]/ZIP Co de Phone Number [facility] [address] [place] [address] * (ABNORMAL) Glucose, Whole Blood (01/16/2024 1:17 PM CASTING WHEEL OPERATOR) [facility] Glucose 176(H) 70 - 140 mg/dL 01/16/2024 1:19 PM CASTING WHEEL OPERATOR [facility] Blood (Blood, Arterial Line) 01/16/2024 1:17 PM CASTING WHEEL OPERATOR 01/16/2024 1:17 PM CASTING WHEEL OPERATOR Kaye Aguilar M.D. LAB BLOOD ADD-ON Final R esult Performing Organization Address City/[facility]/ZIP Co de Phone Number [facility] [address] [place] [address] * Potassium, Blood (01/16/2024 1:17 PM CASTING WHEEL OPERATOR) Pathologist [facility] Potassium, B 4.0 3.6 - 5.2 mmol/L 01/16/2024 1:19 PM CASTING WHEEL OPERATOR [facility] Blood (Blood, Arterial Line) 01/16/2024 1:17 PM CASTING WHEEL OPERATOR 01/16/2024 1:17 PM CASTING WHEEL OPERATOR us Kaye Aguilar M.D. LAB BLOOD NON ADD-ON Fin al Result Performing Organization Address City/[facility]/ZIP Co de Phone Number [facility] [address] [place] [address], [facility] [address] [place] [address] * Sodium, B (01/16/2024 1:17 PM CASTING WHEEL OPERATOR) Sodium, B 135 135 - 145 mmol/L 01/16/2024 1:19 PM CASTING WHEEL OPERATOR [facility] Blood (Blood, Arterial Line) 01/16/2024 1:17 PM CASTING WHEEL OPERATOR 01/16/2024 1:17 PM CASTING WHEEL OPERATOR us Kaye Aguilar M.D. LAB BLOOD NON ADD-ON Fin al Result Performing Organization Address [facility] Co de Phone Number [facility] [address] [place] [address], [facility] [address] [place] [address] * (ABNORMAL) Calcium, Ionized (01/16/2024 1:17 PM CASTING WHEEL OPERATOR) Calcium, Ionized, B 4.33(L) 4.65 - 5.30 mg/dL 01/16/2024 1:19 PM CASTING WHEEL OPERATOR [facility] Blood (Blood, Arterial Line) 01/16/2024 1:17 PM CASTING WHEEL OPERATOR 01/16/2024 1:17 PM CASTING WHEEL OPERATOR us Kaye Aguilar M.D. LAB BLOOD NON ADD-ON Fin al Result Performing Organization Address City/[facility]/ZIP Co de Phone Number [facility] [address] [place] [address], [facility] [address] [place] [address] * (ABNORMAL) Blood Gas with Coox, Arterial (01/16/2024 1:17 PM CASTING WHEEL OPERATOR) pO2 164(H) 83 - 108 mm Hg 01/16/2024 1:19 PM CASTING WHEEL OPERATOR [facility] pCO2 37 35 - 48 mm Hg 01/16/2024 1:19 PM CASTING WHEEL OPERATOR [facility] pH 7.39 7.35 - 7.45 pH 01/16/2024 1:19 PM CASTING WHEEL OPERATOR [facility] Base Excess -3(L) -2 - 3 mmol/L 01/16/2024 1:19 PM CASTING WHEEL OPERATOR [facility] HCO3 22 22 - 26 mmol/L 01/16/2024 1:19 PM CASTING WHEEL OPERATOR STMA Hemoglobin, B 8.2(L) 13.2 - 16.6 g/dL 01/16/2024 1:19 PM CASTING WHEEL OPER[employer] [facility] O2Hb 97.0 94.0 - 98.0 % 01/16/2024 1:19 PM CASTING WHEEL OPERATOR ST[facility] COHb 2.4 <3.0 % 01/16/2024 1:19 PM CASTING WHEEL OPERATOR ST[facility] MetHb <1.0 <1.5 % 01/16/2024 1:19 PM CASTING WHEEL OPERATOR [facility] CtO2 11.5(L) 18.0 - 21.0 vol % 01/16/2024 1:19 PM CASTING WHEEL OPERATOR ST[facility] Blood (Blood, Arterial Line) 01/16/2024 1:17 PM CASTING WHEEL OPERATOR 01/16/2024 1:17 PM CASTING WHEEL OPERATOR us Kaye Aguilar M.D. LAB BLOOD NON ADD-ON Fin al Result [facility] [address] [place] [address], [facility] STMA [facility] [address] [place] [address] * Transfuse autologous RBC (Cell Salvage) : (01/16/2024 12:49 PM CASTING WHEEL OPERATOR) us Kaye Aguilar M.D. BLOOD TRANSFUSION ORDERA BLES Final Result * FL Fluoro Less Than 1 Hour (01/16/2024 12:43 PM CASTING WHEEL OPERATOR) Narrative 152 HOS LOS RST - 01/16/2024 12:47 PM CASTING WHEEL OPERATOR This exam does not require a radiologist review or interpretation. Please refer to the patient's medical record on this date for clinical details. us Ester Vann M.D. IMG FLUOROSCOPY PROCEDURES Final Result Performing Organization Address City/[facility]/ZIP Co de Phone Number 152 HOS LOS RST * Patient Status (01/16/2024 12:02 PM CASTING WHEEL OPERATOR) Temperature 36.2 37.0 deg C 01/16/2024 12:02 PM CASTING WHEEL OPERATOR STMA FIO2 0.33 0.21=AIR 01/16/2024 12:02 PM CASTING WHEEL OPERATOR STMA Blood 01/16/2024 12:0 2 PM CASTING WHEEL OPERATOR 01/16/2024 12:02 PM CASTING WHEEL OPERATOR Mariel Beckman R.N. LAB BLOOD NON ADD-ON Fi nal Result Performing Organization Address [facility] Co de Phone Number [facility] [address] [place] [address], [facility] [address] [place] [address] * (ABNORMAL) Glucose, Whole Blood (01/16/2024 12:02 PM CASTING WHEEL OPERATOR) Pathologist [facility] Glucose 197(H) 70 - 140 mg/dL 01/16/2024 12:04 PM CASTING WHEEL OPERATOR STMA Blood (Blood, Arterial Line) 01/16/2024 12:02 PM CASTING WHEEL OPERATOR 01/16/2024 12:02 PM CASTING WHEEL OPERATOR Kaye Aguilar M.D. LAB BLOOD ADD-ON Final R esult Performing Organization Address [facility] Co de Phone Number [facility] [address] [place] [address], [facility] [address] [place] [address] * Potassium, Blood (01/16/2024 12:02 PM CASTING WHEEL OPERATOR) Pathologist [facility] Potassium, B 4.4 3.6 - 5.2 mmol/L 01/16/2024 12:05 PM CASTING WHEEL OPERATOR STMA Blood (Blood, Arterial Line) 01/16/2024 12:02 PM CASTING WHEEL OPERATOR 01/16/2024 12:02 PM CASTING WHEEL OPERATOR us Kaye Aguilar M.D. LAB BLOOD NON ADD-ON Fin al Result Performing Organization Address City/[facility]/ZIP Co de Phone Number [facility] [address] [place] [address], [facility] [address] [place] [address] * (ABNORMAL) Sodium, B (01/16/2024 12:02 PM CASTING WHEEL OPERATOR) Sodium, B 134(L) 135 - 145 mmol/L 01/16/2024 12:04 PM CASTING WHEEL OPERATOR [facility] Blood (Blood, Arterial Line) 01/16/2024 12:02 PM CASTING WHEEL OPERATOR 01/16/2024 12:02 PM CASTING WHEEL OPERATOR us Kaye Aguilar M.D. LAB BLOOD NON ADD-ON Fin al Result Performing Organization Address City/[facility]/ZIP Co de Phone Number [facility] [address] [place] [address], [facility] [address] [place] [address] * Calcium, Ionized (01/16/2024 12:02 PM CASTING WHEEL OPERATOR) Calcium, Ionized, B 4.65 4.65 - 5.30 mg/dL 01/16/2024 12:05 PM CASTING WHEEL OPERATOR [facility] Blood (Blood, Arterial Line) 01/16/2024 12:02 PM CASTING WHEEL OPERATOR 01/16/2024 12:02 PM CASTING WHEEL OPERATOR us Kaye Aguilar M.D. LAB BLOOD NON ADD-ON Fin al Result [facility] [address] [place] [address], [place] STMA [facility] [address] [place] [address] * (ABNORMAL) Blood Gas with Coox, Arterial (01/16/2024 12:02 PM CASTING WHEEL OPERATOR) [facility] pO2 165(H) 83 - 108 mm Hg 01/16/2024 12:04 PM CASTING WHEEL OPERATOR STMA pCO2 39 35 - 48 mm Hg 01/16/2024 12:04 PM CASTING WHEEL OPERATOR ST[facility] pH 7.41 7.35 - 7.45 pH 01/16/2024 12:04 PM CASTING WHEEL OPERATOR STMA Base Excess 0 -2 - 3 mmol/L 01/16/2024 12:04 PM CASTING WHEEL OPERATOR ST[facility] HCO3 25 22 - 26 mmol/L 01/16/2024 12:04 PM CASTING WHEEL OPERATOR STMA Hemoglobin, B 8.2(L) 13.2 - 16.6 g/dL 01/16/2024 12:04 PM CASTING WHEEL OPERATOR STMA O2Hb 97.2 94.0 - 98.0 % 01/16/2024 12:04 PM CASTING WHEEL OPERATOR STMA COHb 1.9 <3.0 % 01/16/2024 12:04 PM CASTING WHEEL OPERATOR STMA MetHb <1.0 <1.5 % 01/16/2024 12:04 PM CASTING WHEEL OPERATOR ST[facility] CtO2 11.7(L) 18.0 - 21.0 vol % 01/16/2024 12:04 PM CASTING WHEEL OPERATOR ST[facility] Blood (Blood, Arterial Line) 01/16/2024 12:02 PM CASTING WHEEL OPERATOR 01/16/2024 12:02 PM CASTING WHEEL OPERATOR us Kaye Aguilar M.D. LAB BLOOD NON ADD-ON Fin al Result [facility] [address] [place] [address], [facility] [address] [place] [address] * Transfuse Red Blood Cells : (01/16/2024 11:09 AM CASTING WHEEL OPERATOR) us Kaye Aguilar M.D. BLOOD TRANSFUSION ORDERA BLES Final Result * Patient Status (01/16/2024 11:00 AM CASTING WHEEL OPERATOR) Temperature 35.7 37.0 deg C 01/16/2024 11:00 AM CASTING WHEEL OPERATOR [facility] FIO2 0.33 0.21=AIR 01/16/2024 11:00 AM CASTING WHEEL OPERATOR STMA Blood 01/16/2024 11:0 0 AM CASTING WHEEL OPERATOR 01/16/2024 11:00 AM CASTING WHEEL OPERATOR Mariel Beckman R.N. LAB BLOOD NON ADD-ON Fi nal Result Performing Organization Address City/[facility]/ZIP Co de Phone Number [facility] [address] [place] [address], [facility] [address] [place] [address] * (ABNORMAL) Glucose, Whole Blood (01/16/2024 11:00 AM CASTING WHEEL OPERATOR) Glucose 200(H) 70 - 140 mg/dL 01/16/2024 11:03 AM CASTING WHEEL OPERATOR [facility] Blood (Blood, Arterial Line) 01/16/2024 11:00 AM CASTING WHEEL OPERATOR 01/16/2024 11:00 AM CASTING WHEEL OPERATOR us Kaye Aguilar M.D. LAB BLOOD ADD-ON Final R esult Performing Organization Address [facility] Co de Phone Number [facility] [address] [place] [address], [facility] [address] [place] [address] * Potassium, Blood (01/16/2024 11:00 AM CASTING WHEEL OPERATOR) Potassium, B 4.4 3.6 - 5.2 mmol/L 01/16/2024 11:03 AM CASTING WHEEL OPERATOR [facility] Blood (Blood, Arterial Line) 01/16/2024 11:00 AM CASTING WHEEL OPERATOR 01/16/2024 11:00 AM CASTING WHEEL OPERATOR us Kaye Aguilar M.D. LAB BLOOD NON ADD-ON Fin al Result [facility] [address] [place], [place] [address] [address] [place] [address] * Sodium, B (01/16/2024 11:00 AM CASTING WHEEL OPERATOR) Pathologist [facility] Sodium, B 135 135 - 145 mmol/L 01/16/2024 11:03 AM CASTING WHEEL OPERATOR [facility] Blood (Blood, Arterial Line) 01/16/2024 11:00 AM CASTING WHEEL OPERATOR 01/16/2024 11:00 AM CASTING WHEEL OPERATOR us Kaye Aguilar M.D. LAB BLOOD NON ADD-ON Fin al Result [facility] [address] [place], [place] [address] [address] [place] [address] * (ABNORMAL) Calcium, Ionized (01/16/2024 11:00 AM CASTING WHEEL OPERATOR) Pathologist [facility] Calcium, Ionized, B 4.52(L) 4.65 - 5.30 mg/dL 01/16/2024 11:03 AM CASTING WHEEL OPERATOR [facility] Blood (Blood, Arterial Line) 01/16/2024 11:00 AM CASTING WHEEL OPERATOR 01/16/2024 11:00 AM CASTING WHEEL OPERATOR us Kaye Aguilar M.D. LAB BLOOD NON ADD-ON Fin al Result [facility] [address] [place], [place] [address] [address] [place] [address] * (ABNORMAL) Blood Gas with Coox, Arterial (01/16/2024 11:00 AM CASTING WHEEL OPERATOR) pO2 160(H) 83 - 108 mm Hg 01/16/2024 11:03 AM CASTING WHEEL OPERATOR STMA pCO2 39 35 - 48 mm Hg 01/16/2024 11:03 AM CASTING WHEEL OPERATOR [facility] pH 7.42 7.35 - 7.45 pH 01/16/2024 11:03 AM CASTING WHEEL OPERATOR ST[facility] Base Excess 1 -2 - 3 mmol/L 01/16/2024 11:03 AM CASTING WHEEL OPERATOR ST[facility] HCO3 26 22 - 26 mmol/L 01/16/2024 11:03 AM CASTING WHEEL OPERATOR STMA Hemoglobin, B 7.7(L) 13.2 - 16.6 g/dL 01/16/2024 11:03 AM CASTING WHEEL OPERATOR ST[facility] O2Hb 97.3 94.0 - 98.0 % 01/16/2024 11:03 AM CASTING WHEEL OPERATOR ST[facility] COHb 2.1 <3.0 % 01/16/2024 11:03 AM CASTING WHEEL OPERATOR ST[facility] MetHb <1.0 <1.5 % 01/16/2024 11:03 AM CASTING WHEEL OPERATOR [facility] CtO2 11.0(L) 18.0 - 21.0 vol % 01/16/2024 11:03 AM CASTING WHEEL OPERATOR ST[facility] Blood (Blood, Arterial Line) 01/16/2024 11:00 AM CASTING WHEEL OPERATOR 01/16/2024 11:00 AM CASTING WHEEL OPERATOR Kaye Aguilar M.D. LAB BLOOD [place] [address], [place] [address] * Transfuse Red Blood Cells : (01/16/2024 9:58 AM CASTING WHEEL OPERATOR) Kaye Aguilar M.D. BLOOD TRANSFUSION ORDERA BLES Final Result * Patient Status (01/16/2024 9:32 AM CASTING WHEEL OPERATOR) Temperature 35.8 37.0 deg C 01/16/2024 9:32 AM CASTING WHEEL OPERATOR [facility] FIO2 0.40 0.21=AIR 01/16/2024 9:32 AM CASTING WHEEL OPERATOR ST[facility] Blood 01/16/2024 9:32 AM CASTING WHEEL OPERATOR 01/16/2024 9:32 AM CASTING WHEEL OPERATOR Mariel Beckman R.N. LAB BLOOD NON ADD-ON Fi nal Result Performing Organization Address [facility] Co de Phone Number [facility] [address] [place] [address], [facility] [address] [place] [address] * (ABNORMAL) Glucose, Whole Blood (01/16/2024 9:32 AM CASTING WHEEL OPERATOR) Glucose 171(H) 70 - 140 mg/dL 01/16/2024 9:34 AM CASTING WHEEL OPERATOR ST[facility] Blood (Blood, Arterial Line) 01/16/2024 9:32 AM CASTING WHEEL OPERATOR 01/16/2024 9:32 AM CASTING WHEEL OPERATOR Kaye Aguilar M.D. LAB BLOOD ADD-ON Final R esult Performing Organization Address [facility] Co de Phone Number [facility] [address] [place], [place] [address] [place] [address] [address] [place] [address] * Potassium, Blood (01/16/2024 9:32 AM CASTING WHEEL OPERATOR) Potassium, B 4.2 3.6 - 5.2 mmol/L 01/16/2024 9:34 AM CASTING WHEEL OPERATOR ST[facility] Blood (Blood, Arterial Line) 01/16/2024 9:32 AM CASTING WHEEL OPERATOR 01/16/2024 9:32 AM CASTING WHEEL OPERATOR us Kaye Aguilar M.D. LAB BLOOD NON ADD-ON Fin al Result Performing Organization Address City/[facility] Co de Phone Number [facility] [address] [place] [address], [facility] [address] [place] [address] * Sodium, B (01/16/2024 9:32 AM CASTING WHEEL OPERATOR) Sodium, B 135 135 - 145 mmol/L 01/16/2024 9:34 AM CASTING WHEEL OPERATOR ST[facility] Blood (Blood, Arterial Line) 01/16/2024 9:32 AM CASTING WHEEL OPERATOR 01/16/2024 9:32 AM CASTING WHEEL OPERATOR us Kaye Aguilar M.D. LAB BLOOD NON ADD-ON Fin al Result Performing Organization Address City/[facility] Co de Phone Number [facility] [address] [place], [place] [address] [place] [address] [address] [place] [address] * Calcium, Ionized (01/16/2024 9:32 AM CASTING WHEEL OPERATOR) Calcium, Ionized, B 4.67 4.65 - 5.30 mg/dL 01/16/2024 9:34 AM CASTING WHEEL OPERATOR ST[facility] Blood (Blood, Arterial Line) 01/16/2024 9:32 AM CASTING WHEEL OPERATOR 01/16/2024 9:32 AM CASTING WHEEL OPERATOR us Kaye Aguilar M.D. LAB BLOOD NON ADD-ON Fin al Result Performing Organization Address City/[facility] Co de Phone Number [facility] [address] [place], [place] [address] [place] [address] [address] [place] [address] * (ABNORMAL) Blood Gas with Coox, Arterial (01/16/2024 9:32 AM CASTING WHEEL OPERATOR) pO2 158(H) 83 - 108 mm Hg 01/16/2024 9:34 AM CASTING WHEEL OPERATOR STMA pCO2 41 35 - 48 mm Hg 01/16/2024 9:34 AM CASTING WHEEL OPERATOR [facility] pH 7.42 7.35 - 7.45 pH 01/16/2024 9:34 AM CASTING WHEEL OPERATOR ST[facility] Base Excess 2 -2 - 3 mmol/L 01/16/2024 9:34 AM CASTING WHEEL OPERATOR [facility] HCO3 27(H) 22 - 26 mmol/L 01/16/2024 9:34 AM CASTING WHEEL OPERATOR ST[facility] Hemoglobin, B 7.5(L) 13.2 - 16.6 g/dL 01/16/2024 9:34 AM CASTING WHEEL OPERATOR ST[facility] O2Hb 97.2 94.0 - 98.0 % 01/16/2024 9:34 AM CASTING WHEEL OPERATOR ST[facility] COHb 2.1 <3.0 % 01/16/2024 9:34 AM CASTING WHEEL OPERATOR ST[facility] MetHb <1.0 <1.5 % 01/16/2024 9:34 AM CASTING WHEEL OPERATOR [facility] CtO2 10.6(L) 18.0 - 21.0 vol % 01/16/2024 9:34 AM CASTING WHEEL OPERATOR [facility] Blood (Blood, Arterial Line) 01/16/2024 9:32 AM CASTING WHEEL OPERATOR 01/16/2024 9:32 AM CASTING WHEEL OPERATOR Kaye Aguilar M.D. LAB BLOOD NON ADD-ON Fin al Result Performing Organization Address City/[facility]/ZIP Co de Phone Number [facility] [address] [place] [address], [facility] STMA [facility] [address] [place] [address] * (ABNORMAL) Glucose, POCT (01/16/2024 5:31 AM CASTING WHEEL OPERATOR) Pathologist [facility] Glucose, POCT, B 178(H) 70 - 140 mg/dL 01/16/2024 5:33 AM CASTING WHEEL OPERATOR PCLX Site Capillary 01/16/2024 5:33 AM CASTING WHEEL OPERATOR PCLX Last Intake > 4 hours 01/16/2024 5:33 AM CASTING WHEEL OPERATOR PCLX Blood 01/16/2024 5:31 AM CASTING WHEEL OPERATOR 01/16/2024 5:33 AM CASTING WHEEL OPERATOR Unknown Provider LAB POCT ORDERABLES-MANUAL Cata l Result Performing Organization Address City/[facility]/ZIP Co de Phone Number [facility] [address] [place] [address], [facility] PCLX [facility] [address] [place] [address] * (ABNORMAL) Hemoglobin (01/15/2024 8:04 PM CASTING WHEEL OPERATOR) Hemoglobin 8.5(L) 13.2 - 16.6 g/dL 01/15/2024 8:53 PM CASTING WHEEL OPERATOR DTL Blood (Blood, Venous) 01/15/2024 8:04 PM CASTING WHEEL OPERATOR 01/15/2024 8:47 PM CASTING WHEEL OPERATOR us Carla Law M.D. LAB BLOOD ADD-ON Final Result Performing Organization Address City/[facility] Co de Phone Number [facility] [address] [place] [address], [facility] DTL [facility] [address] [place] [address] * (ABNORMAL) Glucose, POCT (01/15/2024 4:15 PM CASTING WHEEL OPERATOR) Glucose, POCT, B 155(H) 70 - 140 mg/dL 01/15/2024 4:18 PM CASTING WHEEL OPERATOR PCLX Site Capillary 01/15/2024 4:18 PM CASTING WHEEL OPERATOR PCLX Blood 01/15/2024 4:15 PM CASTING WHEEL OPERATOR 01/15/2024 4:18 PM CASTING WHEEL OPERATOR us Unknown Provider LAB POCT ORDERABLES-MANUAL Cata l Result Performing Organization Address [facility] de Phone Number [facility] [address] [place] [address], [facility] PCLX [facility] POC [address] [place] [address] * Transfuse Red Blood Cells : (01/15/2024 3:57 PM CASTING WHEEL OPERATOR) us Patel Aguayo M.D. BLOOD TRANSFUSION ORDERAB LES Final Result * Transfuse Red Blood Cells : , 1 Units (01/15/2024 3:57 PM CASTING WHEEL OPERATOR) us Patel Aguayo M.D. BLOOD TRANSFUSION ORDERAB LES Final Result * (ABNORMAL) Glucose, POCT (01/15/2024 10:00 AM CASTING WHEEL OPERATOR) Glucose, POCT, B 146(H) 70 - 140 mg/dL 01/15/2024 10:06 AM CASTING WHEEL OPERATOR PCLX Blood 01/15/2024 10:0 0 AM CASTING WHEEL OPERATOR 01/15/2024 10:06 AM CASTING WHEEL OPERATOR us Unknown Provider LAB POCT ORDERABLES-MANUAL Cata l Result Performing Organization Address City/[facility]/ZIP Co de Phone Number [facility] [address] [place] [address], [facility] PCLX [facility] [address] [place] [address] * DX Shoulder Right 2+ Views (01/15/2024 8:42 AM CASTING WHEEL OPERATOR) Anatomical Region Laterality Modality Upper Extremity, Shoulder, M usculoskeletal RST LOS, Musculoskeletal ARZ LOS, Muskuloskeletal FLA LOS Right Digit al Radiography Impressions 01/15/2024 8:48 AM CASTING WHEEL OPERATOR No definite acute displaced fracture or traumatic misalignment. Mild to moderate degenerative changes of the shoulder. Narrative 01/15/2024 8:48 AM CASTING WHEEL OPERATOR EXAM: DX SHOULDER RIGHT 2+ VIEWS Procedure Note Boyd Kwong D.O. - 01/15/2024 EXAM: DX SHOULDER RIGHT 2+ VIEWS IMPRESSION: No definite acute displaced fracture or traumatic misalignment. Mild tomoderate degenerative changes of the shoulder. us Park Dodd M.D. IMG DIAGNOSTIC IMAGING PROCED URES Final Result * Type and Screen (with Reflex Antibody ID) (01/15/2024 8:24 AM CASTING WHEEL OPERATOR) ABORh O Pos Not applicable 01/15/2024 8:50 AM CASTING WHEEL OPERATOR STRM Antibody Screen Negative Negative 01/15/2024 9:04 AM CASTING WHEEL OPERATOR STRM Type & Screen Expiration 01/18/2024 23:59 01/15/2024 8:50 AM CASTING WHEEL OPERATOR STRM Testing Location [place] DEFAULT 01/15/2024 8:31 AM CASTING WHEEL OPERATOR STRM Blood (Blood, Venous) 01/15/2024 8:24 AM CASTING WHEEL OPERATOR 01/15/2024 8:31 AM CASTING WHEEL OPERATOR us Park Dodd M.D. LAB BLOOD BANK TEST ORDERABLE S Final Result [facility] [address] [place] [address], [place] STRM [facility] [address] [place] [address] * (ABNORMAL) Troponin T, 2 Hour with 6 Hour Reflex, 5th Gen (01/15/2024 8:24 AM CASTING WHEEL OPERATOR) Troponin T, 2 hr, 5th gen 38(H) <=15 ng/L 01/15/2024 8:50 AM CASTING WHEEL OPERATOR STMA 2H Delta 3 ng/L 01/15/2024 8:50 AM CASTING WHEEL OPERATOR STMA Comment:6 hour collection no t indicated. 2H Delta Interp Not Changing 01/15/2024 8:50 AM CASTING WHEEL OPERATOR STMA Blood 01/15/2024 8:24 AM CASTING WHEEL OPERATOR 01/15/2024 8:30 AM CASTING WHEEL OPERATOR us Martha Walton D.O., M.H.A. LAB BLOOD TROPONIN Fin al Result [place] [address] [place] [address], [facility] [address] [place] [address] * CT Femur Right without IV Contrast (01/15/2024 8:02 AM CASTING WHEEL OPERATOR) Anatomical Region Laterality Modality Lower Extremity, Femur, Musc uloskeletal RST LOS, Musculoskeletal ARZ LOS, Muskuloskeletal FLA LOS Right Computed Tomography, Compute d Tomography Impressions 01/15/2024 4:53 PM CASTING WHEEL OPERATOR 1. Comminuted displaced and angulated periprosthetic femoral fracture. 2. Dense fluid collection in the subcutaneous tissue of the right hip. Findings may reflect a postoperative or posttraumatic hematoma. However, an underlying infection cannot be excluded. Narrative 01/15/2024 4:53 PM CASTING WHEEL OPERATOR EXAM: CT FEMUR RIGHT WITHOUT IV CONTRAST [...] Lumbar Spine by Reconstruction (01/15/2024 6:51 AM CASTING WHEEL OPERATOR) Anatomical Region Laterality Modality Thoracic Spine, Neuroradiolo gy RST [facility], Neuroradiology ARZ [facility], Neuroradiology [facility] N/A Computed Tomography, Compute d Tomography Impressions 01/15/2024 8:48 AM CASTING WHEEL OPERATOR 1. No acute fracture or traumatic malalignment of the thoracic or lumbar spine. 2. Chronic L5 pars defects with grade 1 spondylolisthesis at L5-S1. Advanced right and moderate left neural foraminal narrowing. Narrative 01/15/2024 8:48 AM CASTING WHEEL OPERATOR EXAM: CT THORACIC AND LUMBAR SPINE BY [...] Pelvis with IV Contrast (01/15/2024 6:51 AM CASTING WHEEL OPERATOR) Anatomical Region Laterality Modality Abdomen, Pelvis, Abdominal R ST LOS, Abdominal ARZ LOS, Abdominal FLA LOS N/A Computed Tomograp hy, Computed Tomography 01/15/2024 6:47 AM CASTING WHEEL OPERATOR Impressions 01/15/2024 11:02 AM CASTING WHEEL OPERATOR Right femur periprosthetic fracture. Also, possible right shoulder anterior dislocation, recommend right shoulder radiographs for further evaluation. No other acute traumatic findings. Narrative 01/15/2024 11:02 AM CASTING WHEEL OPERATOR EXAM: CT CHEST WITH IV CONTRAST, CT [...] reports for spinal findings. Procedure Note Fabiana Otra M.D. - 01/15/2024 EXAM: CT CHEST WITH [...] Chest with IV Contrast (01/15/2024 6:51 AM CASTING WHEEL OPERATOR) Anatomical Region Laterality Modality Chest, Thoracic RST LOS, Tho racic ARZ LOS, Thoracic ARZ LOS, Thoracic FLA LOS N/A Computed Tomography, Compute d Tomography 01/15/2024 6:47 AM CASTING WHEEL OPERATOR Impressions 01/15/2024 11:02 AM CASTING WHEEL OPERATOR Right femur periprosthetic fracture. Also, possible right shoulder anterior dislocation, recommend right shoulder radiographs for further evaluation. No other acute traumatic findings. Narrative 01/15/2024 11:02 AM CASTING WHEEL OPERATOR EXAM: CT CHEST WITH IV CONTRAST, CT [...] Spine without IV Contrast (01/15/2024 6:51 AM CASTING WHEEL OPERATOR) Anatomical Region Laterality Modality Cervical Spine, Neuroradiolo gy RST LOS, Neuroradiology ARZ LOS, Neuroradiology FLA LOS N/A Computed Tomography, Compute d Tomography 01/15/2024 6:41 AM CASTING WHEEL OPERATOR Impressions 01/15/2024 8:16 AM CASTING WHEEL OPERATOR No acute fracture or traumatic malalignment of the cervical spine. Narrative 01/15/2024 8:16 AM CASTING WHEEL OPERATOR EXAM: CT CERVICAL SPINE WITHOUT IV CONTRAST [...] traumatic malalignment of the cervical spine. Martha Ojeda Eggum D.O., M.H.A. 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 No acute intracranial findings. No cranial or facial fracture. Narrative 01/15/2024 7:24 AM CASTING WHEEL OPERATOR EXAM: CT HEAD WITHOUT IV CONTRAST COMPARISON: [...] findings. No cranial or facial fracture. Martha Walton D.O., M.H.A. IMG CT PROCEDURES Cata l Result * DX Hip And Pelvis Left 2-3 Views (01/15/2024 6:42 AM CASTING WHEEL OPERATOR) Anatomical Region Laterality Modality Lower Extremity, Pelvis, Hip , Musculoskeletal RST LOS, Musculoskeletal ARZ LOS, Muskuloskeletal FLA LOS Left Digit al Radiography Impressions 01/15/2024 9:15 AM CASTING WHEEL OPERATOR No definite acute left fracture. Right hip long arthroplasty with cerclage wires. No gross hardware failure. Degenerative changes of the spine and pelvis. Narrative 01/15/2024 9:15 AM CASTING WHEEL OPERATOR EXAM: DX HIP AND PELVIS LEFT 2-3 VIEWS Procedure Note Boyd Kwong D.O. - 01/15/2024 EXAM: DX HIP AND PELVIS LEFT 2-3 VIEWS IMPRESSION: No definite acute left fracture. Right hip long arthroplasty with cerclagewires. No gross hardware failure. Degenerative changes of the spine andpelvis. Martha N Eggvictoriano D.O., M.H.A. IMG DIAGNOSTIC IMAGING PROCEDURES Final Result * DX Chest 1 View (01/15/2024 6:40 AM CASTING WHEEL OPERATOR) Anatomical Region Laterality Modality Chest, Thoracic RST LOS, Tho racic ARZ LOS, Thoracic FLA LOS N/A Digital Radiography Impressions 01/15/2024 7:59 AM CASTING WHEEL OPERATOR No definite acute displaced fracture. No focal consolidation, large pleural effusion, or discernible pneumothorax. Stents in the bilateral carotid arteries. Presumed gallstones and right upper quadrant abdomen. Prominent cardiac silhouette. Narrative 01/15/2024 7:59 AM CASTING WHEEL OPERATOR EXAM: DX CHEST 1 VIEW Procedure Note Boyd Kwong D.O. - 01/15/2024 EXAM: DX CHEST 1 VIEW IMPRESSION: No definite acute displaced fracture. No focal consolidation, largepleural effusion, or discernible pneumothorax. Stents in the bilateralcarotid arteries. Presumed gallstones and right upper quadrant abdomen.Prominent cardiac silhouette. us Martha N Eggvictoriano D.O., M.H.A. IMG DIAGNOSTIC IMAGING PROCEDURES Final Result * DX Femur Right 2 Views (01/15/2024 6:40 AM CASTING WHEEL OPERATOR) Anatomical Region Laterality Modality Lower Extremity, Femur, Musc uloskeletal RST LOS, Musculoskeletal ARZ LOS, Muskuloskeletal FLA LOS Right Digit al Radiography Impressions 01/15/2024 8:01 AM CASTING WHEEL OPERATOR Since 01/06/2024, new acute moderately displaced periprosthetic fracture at the distal tip of the long shaft right hip arthroplasty with cerclage wires. Foreshortening of the femur approximately 10 cm. [place] anterior and lateral alignment. Probable small knee effusion with overlying soft tissue thickening. No definite acute displaced fracture of the knee. Narrative 01/15/2024 8:01 AM CASTING WHEEL OPERATOR EXAM: DX FEMUR RIGHT 2 VIEWS Procedure Note Boyd Kwong D.O. - 01/15/2024 EXAM: DX FEMUR RIGHT 2 VIEWS IMPRESSION: Since 01/06/2024, new acute moderately displaced periprosthetic fractureat the distal tip of the long shaft right hip arthroplasty with cerclagewires. Foreshortening of the femur approximately 10 cm. [place] anterior andlateral alignment. Probable small knee effusion with overlying soft tissue thickening. Nodefinite acute displaced fracture of the knee. Martha Walton D.O., M.H.A. IMG DIAGNOSTIC IMAGING PROCEDURES Final Result * CK (Creatine Kinase) (01/15/2024 5:58 AM CASTING WHEEL OPERATOR) Creatine Kinase (CK), S 233 39 - 308 U/L 01/15/2024 6:50 AM CASTING WHEEL OPERATOR DTL Blood (Blood, Venous) 01/15/2024 5:58 AM CASTING WHEEL OPERATOR 01/15/2024 6:30 AM CASTING WHEEL OPERATOR Martha Walton D.O., M.H.A. LAB BLOOD ADD-ON Final Result [facility] [address] [place] [address], [place] [facility] [address] [place] [address] * (ABNORMAL) Prothrombin Time (PT) (01/15/2024 5:58 AM CASTING WHEEL OPERATOR) Prothrombin Time, P 17.1(H) 9.4 - 12.5 sec 01/15/2024 6:09 AM CASTING WHEEL OPERATOR [facility] 1.6 0.9 - 1.1 01/15/2024 6:09 AM CASTING WHEEL OPERATOR [facility] Comment: ----ADDITIONAL INFORMATION---- Standard intensity warfarin therapeutic range: 2.0 to 3.0 High intensity warfarin therapeutic range: 2.5 to 3.5 Blood (Blood, Venous) 01/15/2024 5:58 AM CASTING WHEEL OPERATOR 01/15/2024 6:03 AM CASTING WHEEL OPERATOR Martha Walton D.O., M.H.A. LAB BLOOD ADD-ON Final Result Performing Organization Address City/[facility]/ZIP Co de Phone Number [facility] [address] [place] [address] * (ABNORMAL) Troponin T, Baseline with 2 Hour/6 Hour Reflex Biomarker Panel (01/15/2024 5:58 AM CASTING WHEEL OPERATOR) Pathologist [facility] Troponin T, Baseline, 5th gen 35(H) <=15 ng/L 01/15/2024 6:19 AM CASTING WHEEL OPERATOR [facility] Blood (Blood, Venous) 01/15/2024 5:58 AM CASTING WHEEL OPERATOR 01/15/2024 6:03 AM CASTING WHEEL OPERATOR Martha Walton D.O., M.H.A. LAB BLOOD TROPONIN Fin al Result Performing Organization Address City/[facility]/ZIP Co de Phone Number [facility] [address] [place] [address] * Lactate (01/15/2024 5:58 AM CASTING WHEEL OPERATOR) Pathologist [facility] Lactate, P 1.2 0.5 - 2.2 mmol/L 01/15/2024 6:15 AM CASTING WHEEL OPERATOR [facility] Blood (Blood, Venous) 01/15/2024 5:58 AM CASTING WHEEL OPERATOR 01/15/2024 6:03 AM CASTING WHEEL OPERATOR Martha Walton D.O., M.H.A. LAB BLOOD NON ADD-ON F inal Result Performing Organization Address [facility] Co de Phone Number [facility] [address] [place] [address], [facility] STMA [facility] [address] [place] [address] * Lipase (01/15/2024 5:58 AM CASTING WHEEL OPERATOR) Lipase, S 55 13 - 60 U/L 01/15/2024 6: 50 AM CASTING WHEEL OPERATOR DTL Blood (Blood, Venous) 01/15/2024 5:58 AM CASTING WHEEL OPERATOR 01/15/2024 6:30 AM CASTING WHEEL OPERATOR Martha Walton D.O., M.H.A. LAB BLOOD ADD-ON Final Result Performing Organization Address [facility] de Phone Number [facility] [address] [place] [address], [facility] [place] [address] * (ABNORMAL) Hepatic Function Panel (01/15/2024 5:58 AM CASTING WHEEL OPERATOR) Bilirubin, Total, S 0.4 0.0 - 1.2 mg/dL 01/15/2024 6:50 AM CASTING WHEEL OPERATOR DTL Bilirubin, Direct, S <0.2 0.0 - 0.3 mg/dL 01/15/2024 6:50 AM CASTING WHEEL OPERATOR DTL Aspartate Aminotransferase (AST), S 33 8 - 48 U/L 01/15/2024 6:50 AM CASTING WHEEL OPERATOR DTL Alanine Aminotransferase (ALT), S 25 7 - 55 U/L 01/15/2024 6:50 AM CASTING WHEEL OPERATOR DTL Alkaline Phosphatase, S 163(H) 40 - 129 U/L 01/15/2024 6:50 AM CASTING WHEEL OPERATOR DTL Albumin, S 3.4(L) 3.5 - 5.0 g/dL 01/15/2024 6:50 AM CASTING WHEEL OPERATOR DTL Protein, Total, S 5.4(L) 6.3 - 7.9 g/dL 01/15/2024 6:50 AM CASTING WHEEL OPERATOR DTL Blood (Blood, Venous) 01/15/2024 5:58 AM CASTING WHEEL OPERATOR 01/15/2024 6:30 AM CASTING WHEEL OPERATOR us Martha Walton D.O., M.H.A. LAB BLOOD ADD-ON Final Result [facility] [address] [place] [address], [facility] [address] [place] [address] * (ABNORMAL) Basic Metabolic Panel (01/15/2024 5:58 AM CASTING WHEEL OPERATOR) Potassium, P 4.5 3.6 - 5.2 mmol/L 01/15/2024 6:18 AM CASTING WHEEL OPERATOR STMA Sodium, P 134(L) 135 - 145 mmol/L 01/15/2024 6:18 AM CASTING WHEEL OPERATOR STMA Chloride, P 99 98 - 107 mmol/L 01/15/2024 6:18 AM CASTING WHEEL OPERATOR STMA Bicarbonate, P 24 22 - 29 mmol/L 01/15/2024 6:18 AM CASTING WHEEL OPERATOR STMA Anion Gap, P 11 7 - 15 01/15/2024 6:18 AM CASTING WHEEL OPERATOR STMA BUN (Blood Urea Nitrogen), P 30(H) 8 - 24 mg/dL 01/15/2024 6:18 AM CASTING WHEEL OPERATOR STMA Creatinine 0.91 0.74 - 1.35 mg/dL 01/15/2024 6:18 AM CASTING WHEEL OPERATOR STMA Estimated GFR (eGFR) >90 >=60 mL/min/BSA 01/15/2024 6:18 AM CASTING WHEEL OPERATOR STMA Comment: Estimated GFR calculated using the 2020 CKD_EPI creatinine equation. Calcium, Total, P 8.3(L) 8.6 - 10.0 mg/dL 01/15/2024 6:18 AM CASTING WHEEL OPERATOR STMA Glucose, P 178(H) 70 - 140 mg/dL 01/15/2024 6:18 AM CASTING WHEEL OPERATOR STMA Blood (Blood, Venous) 01/15/2024 5:58 AM CASTING WHEEL OPERATOR 01/15/2024 6:03 AM CASTING WHEEL OPERATOR Martha Walton D.O., M.H.A. LAB BLOOD ADD-ON Final Result [facility] [address] [place] [address], [facility] [address] [place] [address] * (ABNORMAL) CBC with Differential, Blood (01/15/2024 5:58 AM CASTING WHEEL OPERATOR) Hemoglobin 7.4(L) 13.2 - 16.6 g/dL 01/15/2024 6:06 AM CASTING WHEEL OPERATOR STMA Hematocrit 22.5(L) 38.3 - 48.6 % 01/15/2024 6:06 AM CASTING WHEEL OPERATOR STMA Erythrocytes 2.44(L) 4.35 - 5.65 x10(12)/L 01/15/2024 6:06 AM CASTING WHEEL OPERATOR ST[facility] MCV 92.2 78.2 - 97.9 fL 01/15/2024 6:06 AM CASTING WHEEL OPERATOR ST[facility] RBC Distrib Width 13.9 11.8 - 14.5 % 01/15/2024 6:06 AM CASTING WHEEL OPERATOR ST[facility] Platelet Count 316 135 - 317 x10(9)/L 01/15/2024 6:06 AM CASTING WHEEL OPERATOR ST[facility] Leukocytes 12.0(H) 3.4 - 9.6 x10(9)/L 01/15/2024 6:06 AM CASTING WHEEL OPERATOR ST[facility] Neutrophils 8.37(H) 1.56 - 6.45 x10(9)/L 01/15/2024 6:06 AM CASTING WHEEL OPERATOR [facility] Lymphocytes 1.51 0.95 - 3.07 x10(9)/L 01/15/2024 6:06 AM CASTING WHEEL OPERATOR ST[facility] Monocytes 1.41(H) 0.26 - 0.81 x10(9)/L 01/15/2024 6:06 AM CASTING WHEEL OPERATOR ST[facility] Eosinophils 0.64(H) 0.03 - 0.48 x10(9)/L 01/15/2024 6:06 AM CASTING WHEEL OPERATOR ST[facility] Basophils 0.06 0.01 - 0.08 x10(9)/L 01/15/2024 6:06 AM CASTING WHEEL OPERATOR ST[facility] Blood (Blood, Venous) 01/15/2024 5:58 AM CASTING WHEEL OPERATOR 01/15/2024 6:02 AM CASTING WHEEL OPERATOR Martha Walton D.O., M.H.A. LAB BLOOD ADD-ON Final Result Performing Organization Address [facility] Co de Phone Number [facility] [address] [place] [address], [facility] STMA [facility] [address] [place] [address] [facility] [address] [place] [address] * ECG 12 Lead (01/15/2024 5:42 AM CASTING WHEEL OPERATOR) Ventricular Rate ECG/Min 67 BPM MUSE [place] Interval 168 ms MUSE QRSD Interval 92 ms MUSE QT Interval 418 ms MUSE QTC Interval 441 ms MUSE P [place] 12 degrees MUSE R [place] -1 degrees MUSE T Wave [place] 74 degrees MUSE 01/15/2024 5:42 AM CASTING WHEEL OPERATOR 01/15/2024 11:07 AM CASTING WHEEL OPERATOR Impressions MUSE - 01/15/2024 5:50 AM CASTING WHEEL OPERATOR Normal sinus rhythm Low voltage QRS Nonspecific T wave abnormality When compared with ECG of 28-Nov-2023 15:18, [place] interval has decreased Anterior forces have changed Narrative Procedure Note Flako Berg M.D. - 01/15/2024 IMPRESSION: Normal sinus rhythm Low voltage QRS Nonspecific T wave abnormality When compared with ECG of 28-Nov-2023 15:18, [place] interval has decreased Anterior forces have changed Martha Walton D.O., M.H.A. ECG ORDERABLES Edited Result - Final Performing Organization Address [facility] Co de Phone Number MUSE NA documented in this encounter Visit [...] Seizure (HCC) Stroke Cerebrovascular Accident Personal History Fracture Periprosthetic Hip Initial Right (HCC) documented in this encounter Admitting Diagnoses Diagnosis Fracture Femur Shaft Closed Initial Right (HCC) documented in this encounter Administered Medications Inactive Administered Medications - up to 3 most recent administrations Medication Order MAR Action Action Date Dose Rate Site acetaminophen tablet 1,000 mg (TylenoL) 1,000 mg, oral, 4 times daily, First dose on [place] 01/15/24 at 1200 Given 01/20/2024 8:54 AM CASTING WHEEL OPERATOR 1,000 mg Given 01/19/2024 8:24 PM CASTING WHEEL OPERATOR 1,000 mg Given 01/19/2024 4:44 PM CASTING WHEEL OPERATOR 1,000 mg amLODIPine tablet 5 mg (Norvasc) 5 mg, oral, Daily, First dose (after last modification) on [place] 01/18/24 at 1145 Given 01/20/2024 8:54 AM CASTING WHEEL OPERATOR 5 mg Given 01/19/2024 8:25 AM CASTING WHEEL OPERATOR 5 mg Given 01/18/2024 12:28 PM CASTING WHEEL OPERATOR 5 mg aspirin chewable tablet 81 mg 81 mg, oral, Daily, First dose (after last modification) on [place] 01/18/24 at 1515 Given 01/20/2024 8:54 AM CASTING WHEEL OPERATOR 81 mg Given 01/19/2024 8:26 AM CASTING WHEEL OPERATOR 81 mg Given 01/18/2024 4:36 PM CASTING WHEEL OPERATOR 81 mg atorvastatin tablet 40 mg (Lipitor) 40 mg, oral, Daily at bedtime, First dose (after last modification) on Fri01/19/24 at 2100 Given 01/19/2024 8:25 PM CASTING WHEEL OPERATOR 40 mg bisacodyL suppository 10 mg (Dulcolax) 10 mg, rectal, Daily PRN, constipation, Starting on [place] 01/15/24 at 0925, Ordered sequence of administration: polyethylene glycol, then bisacodyl until BM achieved. Given 01/18/2024 4:39 PM CASTING WHEEL OPERATOR 10 mg calcium citrate-vitamin D3 315 mg-5 mcg (200 Unit) per tablet 2 tablet (Citracal + D3) 2 tablet, oral, 2 times daily, First dose on [place] 01/15/24 at 2100 Given 01/20/2024 8:54 AM CASTING WHEEL OPERATOR 2 tablets Given 01/19/2024 8:24 PM CASTING WHEEL OPERATOR 2 tablets Given 01/19/2024 8:24 AM CASTING WHEEL OPERATOR 2 tablets carboxymethylcellulose 0.5 % ophthalmic solution 1 drop (Refresh Plus) 1 drop, both eyes, 4 times daily PRN, dry eyes, Starting on Fri01/15/24 at 0925 Given 01/19/2024 8:25 PM CASTING WHEEL OPERATOR 1 drop cefadroxil capsule 500 mg (Duricef) 500 mg, oral, 2 times daily, First dose on Fri01/20/24 at 0900, Indications: Prophylaxis, surgicalIndications:Proph ylaxis, surgical Given 01/20/2024 8:54 AM CASTING WHEEL OPERATOR 500 mg chlorhexidine 4 % external solution (Hibiclens) As needed, Starting on Fri01/16/24 at 1229, Intra-Op Given 01/16/2024 12:29 PM CASTING WHEEL OPERATOR 1 Application Right Leg gentamicin powder (for bone cement) As needed, Starting on Fri01/16/24 at 1249, Intra-Op Given 01/16/2024 12:49 PM CASTING WHEEL OPERATOR 0.5 vials Right Leg insulin aspart U-100 (Carbohydrate Count) injection 0-20 Units (NovoLOG FlexPen) 0-20 Units, subcutaneous, 3 times daily with meals, First dose on Fri01/19/24 at 0815, Simple or Complex Ratio: Simple, Carb Ratio - Simple (1 unit per __ grams of carbohydrates): 30 Given 01/20/2024 8:23 AM CASTING WHEEL OPERATOR 3 Units Left Upper Arm (Back) Given 01/19/2024 4:49 PM CASTING WHEEL OPERATOR 1 Units Le ft Upper Arm (Back) Given 01/19/2024 12:15 PM CASTING WHEEL OPERATOR 2 Units L eft Upper Arm (Back) insulin aspart U-100 injection 0-13 Units (NovoLOG FlexPen) 0-13 Units, subcutaneous, 3 times daily, First dose (after last modification) on Fri01/19/24 at 0815, Insulin Scale: Mild Correction Scale, [...] (after last modification) on Fri01/15/24 at 1115 Given 01/20/2024 9:15 AM CASTING WHEEL OPERATOR 750 mg Given 01/19/2024 8:24 PM CASTING WHEEL OPERATOR 750 mg Given 01/19/2024 8:25 AM CASTING WHEEL OPERATOR 750 mg ondansetron (PF) injection 4 mg (Zofran) 4 mg, intravenous, Every 6 hours PRN, nausea, vomiting, Starting on [place] 01/15/24 at 0925 Given 01/16/2024 4:42 PM CASTING WHEEL OPERATOR 4 mg oxyCODONE IR tablet 10 mg (Roxicodone) 10 mg, oral, Every 4 hours PRN, severe pain or score 7-10 of 10, Starting on [place] 01/15/24 at 0925, Second line therapy. If patient is greater than 7 after 2 hours, call service for new order. Given 01/19/2024 8:24 PM CASTING WHEEL OPERATOR 10 mg Given 01/15/2024 10:11 AM CASTING WHEEL OPERATOR 10 mg oxyCODONE IR tablet 5 mg (Roxicodone) 5 mg, oral, Every 4 hours PRN, moderate pain or score 4-6 of 10, Starting on [place] 01/15/24 at 0925, Second line therapy Given 01/20/2024 6:35 AM CASTING WHEEL OPERATOR 5 mg Given 01/17/2024 12:36 PM CASTING WHEEL OPERATOR 5 mg Given 01/16/2024 4:32 AM CASTING WHEEL OPERATOR [address] tablet 40 mg (Protonix) 40 mg, oral, Daily before morning meal, First dose on Fri01/16/24 at 0700, Swallow whole. Do NOT crush, chew, or split tablet. Given 01/20/2024 6:35 AM CASTING WHEEL OPERATOR 40 mg Given 01/19/2024 6:28 AM CASTING WHEEL OPERATOR 40 mg Given 01/18/2024 8:02 AM CASTING WHEEL OPERATOR 40 mg polyethylene glycol powder packet 1 packet (Miralax) 1 packet, oral, Daily, First dose on Fri01/16/24 at 0900, Ordered sequence of administration: polyethylene glycol, then bisacodyl until BM achieved. Avoid mixing with starch-based thickened liquids. Given 01/18/2024 8:48 AM CASTING WHEEL OPERATOR 1 packe t Given 01/17/2024 8:06 AM CASTING WHEEL OPERATOR 1 packet povidone iodine 0.25% in NaCl 0.9% irrigation solution 1,000 mL 1,000 mL, irrigation, Once in surgery, OR use only, Starting on Fri01/16/24 at 0811, For 1 dose, Intra-Op, IRRIGATION USE ONLY Given 01/16/2024 12:30 PM CASTING WHEEL OPERATOR 1,000 mL Righ t Leg rivaroxaban tablet 10 mg (Xarelto) 10 mg, oral, Daily, First dose on Fri01/20/24 at 0900 Given 01/20/2024 8:54 AM CASTING WHEEL OPERATOR 10 mg ROPivacaine (PF) 150 mg, EPINEPHrine 100 mcg, ketorolac 15 mg in NaCl 0.9% 60 mL injection (Arthroplasty Block 75-99.9 kg) 60 mL, infiltration, Once in surgery, OR use only, Starting on Fri01/16/24 at 0727, For 1 dose, Intra-Op, *Not for IV use* Given 01/16/2024 12:37 PM CASTING WHEEL OPERATOR 60 mL Right Leg ROPivacaine (PF) 150 mg, EPINEPHrine 100 mcg, ketorolac 15 mg in NaCl 0.9% 60 mL injection (Arthroplasty Block 75-99.9 kg) 60 mL, infiltration, Once in surgery, OR use only, Starting on Fri01/16/24 at 0727, For 1 dose, Intra-Op, *Not for IV use* Given 01/16/2024 12:37 PM CASTING WHEEL OPERATOR 60 mL Right Leg sennosides-docusate sodium 8.6-50 mg per tablet 2 tablet (Senokot-S) 2 tablet, oral, 2 times daily, First dose (after last modification) on 01/17/24 at 2100, Do not give if patient has diarrhea. Given 01/18/2024 9:07 PM CASTING WHEEL OPERATOR 2 tablets Given 01/18/2024 8:48 AM CASTING WHEEL OPERATOR 2 tablets sodium chloride 0.9 % injection 10 mL [...] maintain patency Given 01/19/2024 8: 26 PM CASTING WHEEL OPERATOR 3 mL Given 01/19/2024 8:27 AM CASTING WHEEL OPERATOR 3 mL Given 01/18/2024 10:15 PM CASTING WHEEL OPERATOR 3 mL thrombin (recombinant) topical solution (Recothrom) As needed, Starting on Fri01/16/24 at 1238, Intra-Op Given 01/16/2024 12:38 PM CASTING WHEEL OPERATOR 10,000 Units Right Leg vancomycin powder As needed, Starting on Fri01/16/24 at 1250, Intra-Op Given 01/16/2024 12:50 PM CASTING WHEEL OPERATOR 1 g documented in this encounter Active and Recently Administered Medications Times are shown in CASTING WHEEL OPERATOR. Scheduled Medication Order 01/18/2024 01/19/2024 01/20/2024 acetaminophen [...] Gonzalez RBelkisNBelkis)1644 (Given - Provider: Marily Gonzalez RBelkisNBelkis)2024 (Given - Provider: Susan Garcia R.N.) 0854 (Given - Provider: Jael FelderNBelkis) amLODIPine tablet 5 mg (Norvasc) 5 mg, [...] bedtime, First dose on Fri01/15/24 at 2100 2107 (Given - Provider: Yvette [...] 2100 0848 (Given - Provider: Dodie Gill R.N.)2106 (Given - Provider: Yvette Bang R.N.) 0824 [...] hours, First dose (after last modification) on Fri01/17/24 at 0845, Please administer 8 hours from previous dose for postoperative antibiotics For immediate IV push administration, reconstitute vial per IVAG or package insert instructions. See IVAG for administration guidelines., Drug Monitoring Program: Pharmacist to adjust medication dosing based on indication and drug clearance factors., Indications: Prophylaxis, surgical, While drains in 0803 (Given - Provider: Dodie Gill R.N.)1636 (Given - Provider: Dodie Gill R.N.) 0149 (Given - Provider: Catarina A Del Rosario, R.N.)0824 (Given - Provider: Marily Gonzalez R.N.)1644 (Given - Provider: Marily Gonzalez R.N.) 0100 (Given - Provider: Susan Garcia R.N.) enoxaparin injection 30 mg (Lovenox) (CANCELED) 30 mg, subcutaneous, 2 times daily, First dose on Fri01/17/24 at 0900 0847 (Given - Provider: Dodie Gill R.N.)2107 (Given - Provider: Jael GriffinNBelkis) 0825 (Given - Provider: Marily Gonzalez R.N.)2025 (Given - Provider: Susan Garcia R.N.) insulin aspart U-100 (Carbohydrate Count) injection 0-20 [...] 30 0857 (Given - Provider: Marily Gonzalez R.N.)1215 (Given - Provider: Marily Gonzalez RBelkisN.)1649 (Given - Provider: Jael CoronaN.) 0823 (Given - Provider: Marily Gonzalez R.N.) insulin aspart U-100 injection 0-13 Units (NovoLOG FlexPen) 0-13 Units, subcutaneous, 3 times daily, First dose (after last modification) on Fri01/19/24 at 0815, Insulin Scale: Mild Correction Scale, 180 - 219: 2 units, 220 - 259: 3 units, 260 - 299: 4 units, 300 - 339: 5 units, 340 - 379: 6 units, 380 - 399: 7 units, Greater than 399: Call service writing Insulin orders 0756 (Not Given - Provider: Marily Gonzalez RBelkisN. - Reason: Order parameters not met - Comment: bg [phone] (Not Given - Provider: Marily Gonzalez R.N. - Reason: Order parameters not met - Comment: [id number] (Not Given - Provider: Aleksandr Corona.N. - Reason: Order parameters not met - Comment: [id number]) 0744 (Not Given - Provider: Jael CoronaN. - Reason: Order parameters not met - Comment: bg 115) levETIRAcetam solution 750 mg (Keppra) 750 mg, oral, 2 times daily, First dose (after last modification) on Fri01/15/24 at 1115 0847 (Given - Provider: Dodie Gill R.N.)2210 (Given - Provider: Jael GriffinNBelkis) 0825 (Given - Provider: Marily Gonzalez RBelkisNBelkis)2024 (Given - Provider: Susan Garcia RTea.) 0915 (Given - Provider: Marily Gonzalez RBelkisN.) [...] diarrhea. 0848 (Given - Provider: Dodie Gill R.N.)2107 (Given - Provider: Yvette Bang R.N.) 0827 [...] for new order. 2023 (Given - Provider: Susan Garcia R.N.) 0670 (See Alternative - Provider: Susan L Jose, R.N.) oxyCODONE IR tablet 5 mg (Roxicodone)(Linked [...] Pending 01/20/2024 01/20/2024 01/20/2024 9 :04 AM CASTING WHEEL OPERATOR documented as of this encounter Care Teams Business Information Analyst Relationship Specialty Start Date End Date Elsewhere, Pcp PCP - General Internal Medicine 10/03/23 documented as of this encounter
--- OUTSIDE RECORDS SUMMARY | 2024-01-22 16:35 | XMS_ITS | Encounter Summary ---
Author Organization [facility] Address [address] [place] [address] Care Team Providers Care Computer Systems Integrator Name Role Phone Elsewhere, Pcp Primary Care Provider Unavailabl e Encounter Details Date Type Department Care Team (Late st Contact Info) Description 01/07/2024 2:20 PM SENIOR ENGINEERING TECHNICIAN Ancillary Procedure Department of Nursing Social History Tobacco Use Types Packs/Day Years Used Date Smoking Tobacco: Never Passive Smoke Exposure: Never Smokeless Tobacco: Never Alcohol Use Standard Drinks/Week Comments Never 2 (1 standard drink = 0.6 oz pur e alcohol) [facility] Utilities Answer Date Recorded In the past [...] your living situation today? I have a [facility] place to live 11/29/2023 Sex and Gender Information Value Date Recorded Sex Assigned at Male 07/26/2022 1:30 PM CDT Legal Sex Male 6:41 AM SENIOR ENGINEERING TECHNICIAN Gender Identity Male 07/26/2022 1:32 PM CDT Sexual Orientation Straight 07/26/2022 1: 32 PM CDT documented as of this encounter Plan of Treatment Upcoming Encounters Date Type Department Care Team (Latest Contact Info) Description 01/27/2024 12:30 PM SENIOR ENGINEERING TECHNICIAN Appointment Department of Orthopedic Surgery in [place], [place] [address] [place] [phone] Lizeth Joe MPAS, P.A.-C. [address] [place] [phone] Discharge Disposition: Home or Self Care 02/19/2024 1:45 PM SENIOR ENGINEERING TECHNICIAN Appointment [facility] [place], [place] [address] [place] [phone] Fantasma Butt M.D. [address] [place] [phone] 02/20/2024 11:00 AM SENIOR ENGINEERING TECHNICIAN Virtual Visit Department of Radiology, [facility], in [place], [place] [address] [place] [phone] Radha Ojeda P.A.-C., M.S. [address] [place] [phone] 04/13/2024 2:00 PM SENIOR ENGINEERING TECHNICIAN Clinical Communication Virtual Review in [place], [place] [address] [place] [phone] 04/15/2024 12:00 PM SENIOR ENGINEERING TECHNICIAN Appointment [facility] in [place], [place] [address] [place] [phone] Brittney Piña, [place], Jose Francisco. [address] [place] [phone] 04/15/2024 1:00 PM SENIOR ENGINEERING TECHNICIAN Office Visit Department of Orthopedic Surgery in [place], [place] [address] [place] [phone] Vel Vinson M.D., M.B.A. [address] [place] [phone] documented as of this encounter Procedures Procedure Name Priority Date/Time Associated Diagnosis Comments NURSING IMAGE EXAM Routine 01/07/2024 2: 20 PM SENIOR ENGINEERING TECHNICIAN documented in this encounter Results * Buttock/Sacrum-Nursing Image Exam (01/07/2024 2:20 PM SENIOR ENGINEERING TECHNICIAN) 01/07/2024 2:17 PM SENIOR ENGINEERING TECHNICIAN Narrative [facility] - 01/07/2024 2:20 PM SENIOR ENGINEERING TECHNICIAN This order has been created and auto-finalized to support the import of images acquired without order. The clinical documentation to support these images can be found on the encounter that produced images. us Provider Not In System IMG NON RAD IMAGING PROCE DURJEREMY Final Result [facility] NA documented in this encounter Visit Diagnoses Not on filedocumented in this encounter Care Teams Computer Systems Integrator Relationship Specialty Start Date End Date Elsewhere, Pcp PCP - General Internal Medicine 10/03/23 documented as of this encounter
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
--- OUTSIDE RECORDS SUMMARY | 2024-01-22 16:35 | XMS_ITS | Encounter Summary ---
Author Organization [facility] Address [address] [place] [address] Care Team Providers Care Pharmacy Sales Assistant Name Role Phone Elsewhere, Pcp Primary Care Provider Unavailabl e Encounter Details Date Type Department Care Team (Late st Contact Info) Description 01/08/2024 Orders Only Preoperative Evaluation Center in [place], [place] [address] [place] [address] Alfredito Hudson, M.S.N., R.N. [address] [place] [phone] Anemia (Primary Dx) Social History Tobacco Use Types Packs/Day Years Used Date Smoking Tobacco: Never Passive Smoke Exposure: Never Smokeless Tobacco: Never Alcohol Use Standard Drinks/Week Comments Never 2 (1 standard drink = 0.6 oz pur e alcohol) [facility] Utilities Answer Date Recorded In the past 12 months has [facility] [employer], gas, oil, or water [employer] threatened to shut off services in your [...] your living situation today? I have a [facility] place to live 01/09/2024 Sex and Gender Information Value Date Recorded Sex Assigned at Male 07/26/2022 1:30 PM CDT Legal Sex Male 6:41 AM PELT DROPPER Gender Identity Male 07/26/2022 1:32 PM CDT Sexual Orientation Straight 07/26/2022 1: 32 PM CDT documented as of this encounter Plan of Treatment Upcoming Encounters Date Type Department Care Team (Latest Contact Info) Description 01/27/2024 12:30 PM PELT DROPPER Appointment Department of Orthopedic Surgery in [place], [place] [address] [place] [phone] Lizeth Joe, DEBRAS, P.A.-C. [address] [place] [phone] Discharge Disposition: Home or Self Care 02/19/2024 1:45 PM PELT DROPPER Appointment Department of Radiology, [facility], in [place], [place] [address] [place] [phone] Fantasma Butt M.D. [address] [place] [phone] 02/20/2024 11:00 AM PELT DROPPER Virtual Visit Department of Radiology, [facility], in [place], [place] [address] [place] [phone] Radha Ojeda P.A.-C., M.S. [address] [place] [phone] 04/13/2024 2:00 PM PELT DROPPER Clinical Communication Virtual Review in [place], [place] 200 [place] [phone] 04/15/2024 12:00 PM PELT DROPPER Appointment Department of Radiology, [facility], in [place], [place] [address] [place] [phone] Brittney Piña, DC, PAllieC. [address] [place] [phone] 04/15/2024 1:00 PM PELT DROPPER Office Visit Department of Orthopedic Surgery in [place], [place] [address] [place] [phone] Vel Vinson M.D., M.B.A. [address] [place] [phone] documented as of this encounter Visit Diagnoses Diagnosis Anemia- Primary documented in this encounter Additional Health Concerns Infection Onset Date Last Indicated Resolved Time COVID19 Pending 01/20/2024 01/20/2024 01/20/2024 9 :04 AM PELT DROPPER documented as of this encounter Care Teams Pharmacy Sales Assistant Relationship Specialty Start Date End Date Elsewhere, Pcp PCP - General Internal Medicine 10/03/23 documented as of this encounter
--- OUTSIDE RECORDS SUMMARY | 2024-01-22 16:35 | XMS_ITS | Encounter Summary ---
Author Organization [facility] Address [address] [place] [address] Care Team Providers Care Tool Turret Lathe Set Up Operator Name Role Phone Elsewhere, Pcp Primary Care Provider Unavailabl e Reason for Referral * Outpatient (Routine) - Closed Specialty Diagnoses / Procedures Referred By Contac t Referred To Contact Diagnoses Infection Total Hip Arthroplasty Subsequent Right Procedures DX Hip And Pelvis Right 2-3 Views Vel Vinson M.D., M.B.A. [address] [place] [address] Phone: tel: fax: [facility] Referral ID Status Reason Start Date Expiration Date Visits Re quested Visits Authorized [id number] Closed 09/02/2023 09/01/2024 1 1 CAL TECHNOLOGIST CHIEF Reason for Visit * Outpatient (Routine) - Closed Specialty Diagnoses / Procedures Referred By Contac t Referred To Contact Diagnoses Infection Total Hip Arthroplasty Subsequent Right Procedures DX Hip And Pelvis Right 2-3 Views Vel Vinson M.D., M.B.A. [address] [place] [address] Phone: tel: fax: [facility] Referral ID Status Reason Start Date Expiration Date Visits Re quested Visits Authorized [id number] Closed 09/02/2023 09/01/2024 1 1 Encounter Details Date Type Department Care Team (Latest Contact Info) Description 01/05/2024 9:36 AM MEDICAL TECHNOLOGIST CHIEF - 01/05/2024 11:59 PM MEDICAL TECHNOLOGIST CHIEF Hospital Encounter Department of Radiology, [facility], in [place], [place] [address] [place] [address] Vel Vinson M.D., M.B.A. [address] [place] [phone] Infection Total Hip Arthroplasty Subsequent Right Discharge Disposition: Home or Self Care Social History Tobacco Use Types Packs/Day Years Used Date Smoking Tobacco: Never Passive Smoke Exposure: Never Smokeless Tobacco: Never Alcohol Use Standard Drinks/Week Comments Never 2 (1 standard drink = 0.6 oz pur e alcohol) [facility] Utilities Answer Date Recorded In the past 12 months has e electric, gas, oil, or water [employer] threatened to shut off services in your [...] your living situation today? I have a [facility] place to live 11/29/2023 Sex and Gender Information Value Date Recorded Sex Assigned at Male 07/26/2022 1:30 PM CDT Legal Sex Male 6:41 AM MEDICAL TECHNOLOGIST CHIEF Gender Identity Male 07/26/2022 1:32 PM CDT Sexual Orientation Straight 07/26/2022 1: 32 PM CDT documented as of this encounter Medications at Time of Discharge aspirin 81 mg chewable tablet Chew 1 tablet (81 mg total) daily. 60 tablet 06/25/2023 carboxymethylcel lulose (REFRESH PLUS) 0.5 % ophthalmic solution Administer 2 drops into both eyes 4 (four) times a day as needed for dry eyes. 50 each 06/25/2023 lancets 1 each daily. 50 each 07/29/2022 levETIRAcetam (Keppra) 100 mg/mL solution Take 7.5 mL (750 mg total) by mouth 2 (two) times a day. 06/25/2023 nystatin (Mycostatin) 100,000 unit/gram cream Apply 1 Application topically 2 (two) times a day. 12/25/2023 nystatin (Nystop) 100,000 unit/gram powder Apply 1 Application topically 2 (two) times a day. pantoprazole (Protonix) 40 mg EC tablet Take 40 mg by mouth daily before morning meal. pen needle, diabetic (BD Ultra-Fine Short Pen Needle) 31 gauge x 5/16 needle 1 Injection daily. 100 each 3 12/31/2022 polyethylene glycol (Miralax) 17 gram powder packet Take 17 g by mouth daily. Dissolve each 17 g dose in 240 mLs (8 ounces) of beverage. sennosides-docus ate sodium (Senokot-S) 8.6-50 mg per tablet Take 1 tablet by mouth 2 (two) times a day for 2 days. 4 tablet 01/09/2024 4 acetaminophen (TYLENOL) 500 mg tablet Take 2 tablets (1,000 mg total) by mouth every 6 (six) hours as needed for mild pain or score 1-3 of 10 or moderate pain or score 4-6 of 10. 03/20/2023 4 atorvastatin (LIPITOR) 20 mg tablet Take 1 tablet (20 mg total) by mouth at bedtime. 30 tablet 1 06/25/2023 4 cefadroxil (Duricef) 500 mg capsuleIndicatio ns:Bone and/or joint infection Take 1 capsule (500 mg total) by mouth 2 (two) times a day for 12 days Indications: Bone and/or joint infection. 24 capsule 01/09/2024 4 cefadroxil (Duricef) 500 mg capsuleIndicatio ns:Blood stream infection,Bone and/or joint infection Take 1 capsule (500 mg total) by mouth 2 (two) times a day for 12 days Indications: Blood stream infection, Bone and/or joint infection. 24 capsule 01/09/2024 4 cefadroxil (Duricef) 500 mg capsuleIndicatio ns:Blood stream infection,Bone and/or joint infection Take 1 capsule (500 mg total) by mouth 2 (two) times a day for 12 days Indications: Blood stream infection, Bone and/or joint infection. 24 capsule 01/09/2024 4 HYDROmorphone (Dilaudid) 2 mg tabletIndication s:Prolonged Acute Pain/Traumatic Injury Take 1 tablet (2 mg total) by mouth every 4 (four) hours as needed for severe pain or score 7-10 of 10 Indication: Prolonged Acute Pain/Traumatic Injury. 25 tablet 01/09/2024 4 HYDROmorphone (Dilaudid) 2 mg tabletIndication s:Prolonged Acute Pain/Traumatic Injury Take 1 tablet (2 mg total) by mouth every 4 (four) hours as needed for severe pain or score 7-10 of 10 Indication: Prolonged Acute Pain/Traumatic Injury. 26 tablet 01/09/2024 4 HYDROmorphone (Dilaudid) 2 mg tabletIndication s:Prolonged Acute Pain/Traumatic Injury Take 1 tablet (2 mg total) by mouth every 4 (four) hours as needed for severe pain or score 7-10 of 10 Indication: Prolonged Acute Pain/Traumatic Injury. 26 tablet 01/09/2024 4 insulin NPH (NovoLIN N FlexPen) 100 unit/mL (3 mL) pen Inject 4-8 Units under the skin 2 (two) times a day with meals. takes 8 units in the AM and 4 units in the afternoon 3 mL 12/02/2023 4 lisinopriL 5 mg tablet Take 5 mg by mouth daily. 09/03/2023 4 rivaroxaban (Xarelto) 10 mg tablet Take 1 tablet (10 mg total) by mouth daily. 30 tablet 11 08/28/2023 4 sennosides (Senokot) 8.6 mg tablet Take 8.6 mg by mouth 2 (two) times a day. 4 sucralfate (Carafate) 1 gram tablet Take 1 g by mouth every 6 (six) hours. Unsure if taking 4 documented as of this encounter Plan of Treatment Upcoming Encounters Date Type Department Care Team (Latest Contact Info) Description 01/27/2024 12:30 PM MEDICAL TECHNOLOGIST CHIEF Appointment Department of Orthopedic Surgery in [place], [place] [address] [place] [phone] Lizeth Joe MPAS, P.A.-C. [address] [place] [phone] Discharge Disposition: Home or Self Care 02/19/2024 1:45 PM MEDICAL TECHNOLOGIST CHIEF Appointment Department of Radiology, [facility], in [place], [place] [address] [place] [phone] Fantasma Butt M.D. [address] [place] [phone] 02/20/2024 11:00 AM MEDICAL TECHNOLOGIST CHIEF Virtual Visit Department of Radiology, [facility], in [place], [place] [address] [place] [phone] Radha Ojeda P.A.-C., M.S. [address] [place] [phone] 04/13/2024 2:00 PM MEDICAL TECHNOLOGIST CHIEF Clinical Communication Virtual Review in [place], [place] 200 [place] [phone] 04/15/2024 12:00 PM MEDICAL TECHNOLOGIST CHIEF Appointment Department of Radiology, [facility], in [place], [place] [address] [place] [phone] Brittney Piña, DC, Jose Francisco. [address] [place] [phone] 04/15/2024 1:00 PM MEDICAL TECHNOLOGIST CHIEF Office Visit Department of Orthopedic Surgery in [place], [place] [address] [place] [phone] Vel Vinson M.D., M.B.A. [address] [place] [phone] documented as of this encounter Procedures Procedure Name Priority Date/Time Associated Diagnosis Comments DX HIP AND PELVIS RIGHT 2-3 VIEWS RAD - Routine (most inpatients and all outpatients) 01/05/2024 10:00 AM MEDICAL TECHNOLOGIST CHIEF Infection Total Hip Arthroplasty Subsequent Right documented in this encounter Results * DX Hip And Pelvis Right 2-3 Views (01/05/2024 10:00 AM MEDICAL TECHNOLOGIST CHIEF) Anatomical Region Laterality Modality Lower Extremity, Pelvis, Hip , Musculoskeletal RST LOS, Musculoskeletal ARZ LOS, Muskuloskeletal FLA LOS Right Digit al Radiography Impressions 01/05/2024 10:33 AM MEDICAL TECHNOLOGIST CHIEF Right ISRRAEL resection with placement of an [...] and left hip. Narrative 01/05/2024 10:33 AM MEDICAL TECHNOLOGIST CHIEF EXAM: DX HIP AND PELVIS RIGHT 2-3 [...] IMG DIAGNOSTIC NIRMAL GING PROCEDURES Final Result documented in this encounter Visit Diagnoses Diagnosis Infection Total Hip Arthroplasty Subsequent Right documented in this encounter Care Teams Tool Turret Lathe Set Up Operator Relationship Specialty Start Date End Date Elsewhere, Pcp PCP - General Internal Medicine 10/03/23 documented as of this encounter
--- OUTSIDE RECORDS SUMMARY | 2024-01-22 16:35 | XMS_ITS | Encounter Summary ---
Author Organization [facility] Address [address] [place] [phone] Care Team Providers Care Resolution Specialist Name Role Phone Elsewhere, Pcp Primary Care Provider Unavailabl e Reason for Visit * Outpatient (Routine) - Closed Specialty Diagnoses / Procedures Referred By Tammi t Referred To Contact Anesthesiology Diagnoses Infection Total Hip Arthroplasty Subsequent Right Vel Vinson M.D., M.B.A. [address] [place] [phone] Phone: tel: fax: [facility] Referral ID Status Reason Start Date Expiration Date Visits Re quested Visits Authorized [id number] Closed 10/23/2023 04/23/2025 1 1 Encounter Details Date Type Department Care Team (Latest Contact Info) Description 01/05/2024 2:30 PM [facility] Comprehensive Visit Preoperative Evaluation Center in [place], [place] [address] [place] [phone] Vel Vinson M.D., M.B.A. [address] [place] [phone] Roma Mock APRN, C.N.P., M.S.N. [address] [place] [phone] Preanesthetic Medical Exam (Primary Dx); Infection Total Hip Arthroplasty Subsequent Right; Hypertension Essential Primary; Hyperlipidemia; Apnea Sleep Obstructive; Stenosis Carotid Artery Right; Occlusion Carotid Artery Left; Stroke Cerebrovascular Accident Personal History Social History Tobacco Use Types Packs/Day Years Used Date Smoking Tobacco: Never Passive Smoke Exposure: Never Smokeless Tobacco: Never Alcohol Use Standard Drinks/Week Comments Never 2 (1 standard drink = 0.6 oz pur e alcohol) [facility] Utilities Answer Date Recorded In the past 12 months has th e [employer], gas, oil, or water company threatened to [...] living situation today? I have a [facility] to live 11/29/2023 Sex and Gender Information Value Date Recorded Sex Assigned at Male 07/26/2022 1:30 PM CDT Legal Sex Male 6:41 AM TEST AND BALANCE ENGINEER Gender Identity Male 07/26/2022 1:32 PM CDT Sexual Orientation Straight 07/26/2022 1: 32 PM CDT documented as of this encounter Last Filed Vital Signs Vital Sign Reading Time Taken Comments Blood Pressure 103/68 01/05/2024 2:21 PM TEST AND BALANCE ENGINEER Pulse 60 01/05/2024 2:21 PM TEST AND BALANCE ENGINEER Temperature 36.7 C (98.1 F) 01/05/2024 2:21 PM TEST AND BALANCE ENGINEER Respiratory Rate - - Oxygen Saturation 98% 01/05/2024 2:21 PM TEST AND BALANCE ENGINEER Inhaled Oxygen Concentration - - Weight 91 kg (200 lb 9.9 oz) 01/05/2024 2:21 PM TEST AND BALANCE ENGINEER approx Height 181 cm (5' 11.26) 01/05/2024 2:21 PM TEST AND BALANCE ENGINEER approx Body Mass Index 27.78 01/05/2024 2:21 PM TEST AND BALANCE ENGINEER documented in this encounter Progress Notes * Zenaida Hughes M.D. - 01/05/2024 2:30 PM CST PREANESTHETIC MEDICAL EVALUATION Procedure: Right Arthroplasty Revision Femoral and Acetabular Hip Indication: Right total hip arthroplasty infected with MSSA s/p arthroplasty explant with replacement of articulating antibiotic spacer and IV antibiotics (05/23/23) Date of Surgery: 01/06/2024 Requesting Provider: Dr. Vel Vinson Supervised by: Dr. Falko Montes HISTORY OF PRESENT ILLNESS Mr. Estevan Lester is a 59 y.o. male seen in consultation for a preanesthetic medical evaluation. Medical comorbidities include high-grade bilateral internal carotid artery stenosis s/p angioplasty of the R ICA (07/2022) c/b restenosis s/p drug coated angioplasty (03/2023), left MCA infarct andtotal occlusion of left ICA s/p thrombectomy of L M2 and stenting of left ICA following arthroplasty explant with replacement of articulating antibiotic spacer (05/2023, continues on aspirin as monotherapy) with residual expressive aphasia and right hemiparesis; HTN, HLD, DM2 (on insulin), MICHELET, PAD,right total hip arthroplasty infected with MSSA s/p arthroplasty explant with replacement of articulating antibiotic spacer and IV antibiotics (05/23/23), on Xarelto for DVT prophylaxis given immobility, and GI bleed 2/2 Oralia-Corado tear s/p EGD 11/03/23. Orthopedic Right Hip History The patient underwent right acetabular fracture in [...] vancomycin until 06/25/23 (5 weeks of therapy). The patient presents today with his sister, Lor and yxactdi-er-ivm Ashutosh. He [facility] At this facility, they help him with his activities of daily living and provide him with meals. Currently he is nonweightbearing to his right side and thus wheelchair-bound. He is not able to walk at all given his non weight-bearing to his right side. Otherwise, at this time the patient believes he is at baseline and has no concerns. Procedure cardiac risk: Intermediate Risk (cardiac risk <5%): CEA, head/neck surgery, intraabdominal or intrathoracic surgery, orthopedic surgery, prostate surgery Functional status: Functional Class IV: Unable to perform 2 METS RCRI estimated risk of tremayne-operative cardiac , non-fatal RI, or non-fatal cardiac arrest: - History Heart Failure (LVEF 47%, 05/2023) - History of Cerebrovascular Disease (left MCA infarct and total occlusion of left ICA s/p thrombectomy of L M2 and stenting of left ICA (continues on aspirin as monotherapy) with residual expressiveaphasia and right hemiparesis - Xarelto for DVT prophylaxis given immobility - Diabetes Mellitus Type 2 requiring insulin (A1c 5.1 12/2023) RCRI risk: >2 Predictors (>10% risk of major cardiac event) PREOPERATIVE CONSIDERATIONS Anticoagulant: aspirin, plavix, warfarin, etc. - Patient currently on Xarelto for DVT prophylaxis given immobility; Aspirin use given hx left MCA stroke Bleeding tendency, personal or family history Oralia-Corado tear s/p EGD 11/03/2023 Diabetes - A1c 5.1 (12/2023) Medications requiring perioperative management (steroids, insulin, metformin, OCPs) - Insulin management Obstructive sleep apnea - CPAP Previous Surgery tolerated - Prior yes ADVANCE CARE PLANNING An advance care plan is on file: yes > If the answer is yes, Surrogate Decision Maker: Sistercandy Horowitz and Annamaria PAST MEDICAL HISTORY Past Medical History: Diagnosis Date Amblyopia Bilateral Anemia Apnea Sleep Obstructive Blood Transfusion No Diagnosis Cataract Diabetes Mellitus NOS Diabetes Mellitus Type 2 (HCC) Hyperlipidemia Hypertension NOS Other Injury Of Unspecified Body Region Polyp Colon Sleep Apnea Stroke (HCC) PAST SURGICAL HISTORY Past Surgical History: Procedure Laterality Date ARTHROPLASTY - RESECTION HIP Right 05/23/2023 Procedure: ARTHROPLASTY RESECTION HIP.; Surgeon: Vel Vinson M.D., M.B.A.; Location: [facility] OR CAROTID ARTERY [...] as indicated.; Surgeon: Mike Cheng M.D.; Location: [facility] OR JOINT REPLACEMENT OTHER CONVERTED SHX [...] Vinson M.D., M.B.A.; Location: [facility] OR FAMILY HISTORY Reviewed and non contributary CURRENT MEDICATIONS Current Outpatient Medications Medication Sig Dispense Refill nystatin (Mycostatin) 100,000 unit/gram cream Apply 1 Application topically as needed. acetaminophen (TYLENOL) 500 mg tablet Take 2 tablets (1,000 mg total) by mouth every 6 (six) hours as needed for mild pain or score 1-3 of 10 or moderate pain or score 4-6 of 10. (Patient taking differently: Take 1,000 mg by mouth 3 (three) times a day. 2-3 times daily) aspirin 81 mg chewable tablet Chew 1 tablet (81 mg total) daily. (Patient taking differently: Chew 81 mg daily. On hold) 60 tablet 0 atorvastatin (LIPITOR) 20 mg tablet Take 1 tablet (20 mg total) by mouth at bedtime. 30 tablet 1 carboxymethylcellulose (REFRESH PLUS) 0.5 % ophthalmic solution Administer 2 drops into both eyes 4(four) times a day as needed for dry eyes. 50 each 0 insulin NPH (NovoLIN N FlexPen) 100 unit/mL (3 mL) pen Inject 4-8 Units under the skin 2 (two) times a day with meals. takes 8 units in the AM and 4 units in the afternoon 3 mL 0 lancets 1 each daily. 50 each 0 levETIRAcetam (Keppra) 100 mg/mL solution Take 7.5 mL (750 mg total) by mouth 2 (two) times a day. lisinopriL 5 mg tablet Take 5 mg by mouth daily. nystatin (Nystop) 100,000 unit/gram powder Apply 1 Application topically 2 (two) times a day. Applyto rash. pantoprazole (Protonix) 40 mg EC tablet Take 40 mg by mouth daily before morning meal. pen needle, diabetic (BD Ultra-Fine Short Pen Needle) 31 gauge x 5/16 needle 1 Injection daily. 100 each 3 polyethylene glycol (Miralax) 17 gram powder packet Take 17 g by mouth daily. Dissolve each 17 g dose in 240 mLs (8 ounces) of beverage. rivaroxaban (Xarelto) 10 mg tablet Take 1 tablet (10 mg total) by mouth daily. (Patient taking differently: Take 10 mg by mouth daily. On hold) 30 tablet 11 sennosides (Senokot) 8.6 mg tablet Take 8.6 mg by mouth 2 (two) times a day. sucralfate (Carafate) 1 gram tablet Take 1 g by mouth every 6 (six) hours. Unsure if taking No current facility-administered medications for this visit. ALLERGIES Allergies Allergen Reactions Cefazolin Other (see comments) Possible increase in alkaline phosphatase please see ID notes REVIEW OF SYSTEMS All systems reviewed and otherwise negative unless otherwise noted. Specifically, no fevers, chills or sweats. No chest pain and no increasing shortness of breath on exertion. PHYSICAL EXAM Vitals: BP 103/68 Pulse 60 Temp 36.7 ??C (Temporal) Ht 181 cm Comment: approx Wt 91 kg Comment: approx SpO2 98% BMI 27.78 kg/m?? General Appearance: Pleasant, well-appearing not in acute distress. Ambulates to the exam table without any significant difficulty. HEENT: Intubation - Mallampati Class: III (soft and hard palate and base of uvula visible) Neck: Supple, no lymphadenopathy, no thyromegaly appreciated. JVP difficult to appreciate Heart: Normal S1, S2 regular rate rhythm without murmurs rubs or gallops Lungs: Clear bilaterally with good air entry to both lung bases Abdomen: Obese abdomen, nontender with no organomegaly or palpable masses. No stigmata of liver failure, fluid wave or shifting dullness Extremities: No lower extremity edema. Legs wrapped. Intubation - Mallampati Class: III (soft and hard palate and base of uvula visible) LABORATORY STUDIES/EKG: Age 50-60y/o - ECG only - ECG (11/28/2023): Sinus bradycardia with 1st degree A-V block Low voltage QRS Low anterior forces Nonspecific T wave abnormality - CBC: Lab Results Component Value Date WBC 7.1 01/05/2024 HGB 10.2 (L) 01/05/2024 HCT 31.9 (L) 01/05/2024 MCV 92.5 01/05/2024 PLT 163 01/05/2024 - Creat: Lab Results Component Value Date CREATININE 0.87 01/05/2024 - Glucose: 147 - K+ (if diuretic): 4.5 ASSESSMENT / PLAN Mr. Estevan Lester is considered a high risk patient undergoing a moderate risk procedure. His physical activity is currently below 4 mets and he currently declines any issues. Given patient's limited functional status, he could undergo further cardiovascular evaluation. However, I do not believe further cardiovascular evaluation would optimize the patient further for surgery and thus will defer at this time. No medical contraindications to anticipated surgery. The patient presents at baseline today and reports today is day 3 of holding his Xarelto and aspirin as directed per his surgical team (Dr. Vinson). He is otherwise medically optimized for surgery atthis time. Further recommendations perioperatively are below. Recommendations: - Continue holding Xarelto and aspirin until further advised by surgical team or vascular medicine team. Would recommend starting aspirin 81 mg SUZANNE post procedure. - NPO 11:59PM tonight 01/04 - Hold AM scheduled 8 units NPH insulin dose prior to presentation for surgery tomorrow, surgical team to place patient on moderate sliding scale insulin regimen - Hold lisinopril 5 mg in the morning prior to surgery - Order ECG prior to surgery for baseline - Okay to continue other home medications Ready to learn, no apparent learning barriers were identified; learning preferences include listening. Explained diagnosis and treatment plan; patient/child/caregiver expressed understanding of the content. Zenaida Hughes MD PGY-3, Internal Medicine AND BALANCE ENGINEER * Flako Montes M.D. - 01/05/2024 2:30 PM CST CHIEF COMPLAINT: Supervisory note to preoperative medical evaluation note of today by Dr. Zenaida Hughes. IMPRESSION/REPORT/PLAN: #1 Preoperative medical evaluation for revision right hip arthroplasty, in the context of relatively complex health history Patient discussed in person with me today by Dr. Zenaida Hughes (senior medical residenton duty, General Internal Medicine [facility]). The patient's [facility] electronic medical records were reviewed by me. I agree with history, additional findings, and asse ssments/recommendations/plans as detailed in the preoperative medical evaluation note of today by Dr. Hughes. In sum, Mr. Estevan Lester is a 59 year-old male who was referred for preoperative medical evaluation pertaining to revision right hip arthroplasty in the context of relatively complex health history. Due to patient-specific plus procedure-specific factors, he is at increased risk of major perioperative complications. However, Mr. Lester is medically optimized as much as feasible preoperatively. He is of medically-satisfactory risk profile for revision hip arthroplasty, with these understandings, and with optimal perioperative medical management as recommended by Dr. Hughes. Thank you for the opportunity to participate in the consultative care of Mr. Estevan Lester. Please contact us if any related question. Mr. Estevan Lester is encouraged to maintain local general medical care/primary care. AND BALANCE ENGINEER documented in this encounter Plan of Treatment Upcoming Encounters Date Type Department Care Team (Latest Contact Info) Description 01/27/2024 12:30 PM TEST AND BALANCE ENGINEER Appointment Department of Orthopedic Surgery in [place], [place] [address] [place] [phone] Lizeth Joe, DEBRAS, P.A.-C. 200 [place] [phone] Discharge Disposition: Home or Self Care 02/19/2024 1:45 PM TEST AND BALANCE ENGINEER Appointment Department of Radiology, [facility], in [place], [place] [address] [place] [phone] Fantasma Butt M.D. [address] [place] [phone] 02/20/2024 11:00 AM TEST AND BALANCE ENGINEER Virtual Visit Department of Radiology, [facility], in [place], [place] [address] [place] [phone] Radha Ojeda P.A.-C., M.S. [address] [place] [phone] 04/13/2024 2:00 PM TEST AND BALANCE ENGINEER Clinical Communication Virtual Review in [place], [place] 200 [place] [phone] 04/15/2024 12:00 PM TEST AND BALANCE ENGINEER Appointment Department of Radiology, [facility], in [place], [place] [address] [place] [phone] Brittney Piña, Jose Francisco IRWIN. [address] [place] [phone] 04/15/2024 1:00 PM TEST AND BALANCE ENGINEER Office Visit Department of Orthopedic Surgery in [place], [place] [address] [place] [phone] Vel Vinson M.D., M.B.A. [address] [place] [phone] documented as of this encounter Visit Diagnoses Diagnosis Preanesthetic Medical Exam- Primary Infection Total Hip Arthroplasty Subsequent Right Hypertension Essential Primary Hyperlipidemia Apnea Sleep Obstructive Stenosis Carotid Artery Right Occlusion Carotid Artery Left Stroke Cerebrovascular Accident Personal History documented in this encounter Care Teams Resolution Specialist Relationship Specialty Start Date End Date Elsewhere, Pcp PCP - General Internal Medicine 10/03/23 documented as of this encounter
--- OUTSIDE RECORDS SUMMARY | 2024-01-22 16:35 | XMS_ITS | Encounter Summary ---
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 [address] [place] [phone] Phone: tel: fax: Referral ID Status Reason Start Date Expiration Date Visits Re quested Visits Authorized [id number] 1 1 Encounter Details Date Type Department Care Team (Late st Contact Info) Description 01/06/2024 7:54 AM BANANA LOADER Anesthesia Event [facility] [address] [place] [phone] Baltazar Pacheoc M.D. [address] [place] [phone] Anesthesia Record Procedure Summary Procedure Name Responsible Anesthesiologist Anesthesia Start Time Anesthesia Stop Time ARTHROPLASTY REVISION FEMORAL PLUS ACETABULAR HIP. (Right: Hip) Baltazar Pacheco M.D. 01/06/24 0754 01/06/24 1406 Events Date Time Event Comment 01/06/2024 0754 An Start Machine/Equipme nt Checked Infection Precautions Followed Procedure/Site Verified NPO Status Verified Supine Standard ASA Monitors Applied 0806 An Induction 0809 An Intubation 0825 Turnover to Proceduralist 0857 Proc Start 0948 BP Support Discu ssed with Anesthesiologist [address] atus update 1126 Anesthesiologist Notified La b result 1140 Anes CS Handoff I, Hanh Mckay, CCRN, attest that I have reconciled the controlled substances and that I have reviewed all the significant information with the next anesthesia provider assuming care of this patient. 1323 Proc Fin 1342 Turnover to ANE Staff 1344 Airway Removal Criteria Met 1344 Extubation/Airway Removed 1345 an stop data 1406 An End I completed my handoff to [...] Meds Name Total fentanyl injection 50 mcg/mL 50 mcg lidocaine 2% (mg) injection 100 mg rocuronium 10 mg/mL injection 50 mg phenylephrine 100 mcg/mL injection 1,000 mcg ePHEDrine PF 5 mg/mL syringe injection 6 0 mg ondansetron 4 mg/2 mL injection 4 mg sugammadex 100 mg/mL injection 180 mg glycopyrrolate 0.2 mg/mL injection 0.4 m g propofol 10 mg/mL injection 150 mg ceFAZolin injection 2,000 mg (Ancef) 4 g tranexamic acid in NaCl IVPB 1,000 mg (C yklokapron) 1 g tranexamic acid in NaCl IVPB 1,000 mg (C yklokapron) 1 g vancomycin powder 1 g 0 vial albumin human injection 5% 750 mL dexAMETHasone (Decadron) injection 4 mg/ mL 4 mg phenylephrine infusion 80 mcg/mL in NaCl 0.9% 250 mL (premix/CNR) 8.58 mg HYDROmorphone (Dilaudid) injection 1 mg/ mL syringe 0.4 mg vasopressin (Pitressin) injection 20 Uni ts/mL 6 Units insulin aspart U-100 injection 0-8 Units (NovoLOG FlexPen) 6 Units Lactated Ringers Free Drip 1,000 mL lactated ringers free drip 1,150 mL * Agents No agents on file. * Blood Name Total RED BLOOD CELLS 324 mL Lines, Drains, and Airways Type Details Placement Removal Diabetes Device Right, Left; Arm; Family; Continuous blood glucose monitoring device; Freestyle Jessica 2 11/18/22 0909 by Wound 06/02/23; 1100; Incontinence; Perineum; Groin to Perirectal; 01/17/24; 0707; Wound healed 06/02/23 1100 by Trell Marques R.N., C.W.C.N. 01/17/24 0707 by Rosalie Jean R.N., C.W.O.C.N. Indwelling Urinary Catheter Placement Date: 01/06/24; Inserted by: Brittney Piña; Size: 16 Fr.; Balloon Size: 10 mL; Urine Returned: Yes; Removal Date: 01/07/24; Removal Time: 2017; Removal Reason: Per order 01/06/24 0000 by Mabel Chavez R.NBelkis 01/07/242017 by Bisi aVrma RWilma Wound 01/06/24; N; Incisio n; Hip; Anterior, Right; 01/16/24; 1120; Other (Comment); surgical procedure, incision extended, see new LDA 01/06/24 0000 by Mabel Chavez R.NBelkis 01/16/24 112 by Connor Bates, R.NBelkis Peripheral IV Placement Date: 01/06/24; Placement Time: 619; Catheter Size: 20 G; Orientation: Left (right side affected by stroke); Location: Hand; Site Prep: Chlorhexidine (Preferred); Technique: Anatomical landmarks; Inserted by: JOSE; Insertion Attempts: 1; Removal Date: 01/09/24; Removal Time: 914; Removal Reason: Per order 01/06/24 0620 by Dior Chatman R.NBelkis 01/09/24 0915 by Ginna Grover ETT Placement Date: 01/06/24; Placement Time: 808 (created via procedure documentation); Mask Ventilation: Difficult mask (ie. two-handed) with oral airway; Technique: Video laryngoscopy; Type: Standard ETT; Single Lumen Tube Size: 7.5 mm; Cuffed: Yes; Location: Oral; Grade View: Grade 1; Insertion Attempts: 1; Placement Verification: Bilateral breath sounds, Positive ETCO2, Symmetrical chest wall movement; Removal Date: 01/06/24; Removal Time: 1344 01/06/24 0809 by Hanh Mckay CCRN 01/06/24 1344 by Hanh Mckay CCRN Peripheral IV Placement Date: 01/06/24; Placement Time: 819; Catheter Size: 18 G; Orientation: Right; Location: Forearm; Removal Date: 01/09/24; Removal Time: 914; Removal Reason: Per order 01/06/24 08 by Hanh Mckay CCRN 01/09/24 09 by Ginna Grover Arterial Line Placement Date: 01/06/24; Placemnt Time: 927 (created via procedure documentation); Size: 20 G; Orientation: Left; Location: Radial; Site Prep: Chlorhexidine (Preferred); Technique: Ultrasound guidance; Insertion Attempts: 2; Securement: Securement dressing, Securement device; Removal Date: 01/06/24; Removal Time: 1544; Removal Reason: Completion of therapy 01/06/24927 by Hanh Mckay CCRN 01/06/241544 by Therese Bolton M.S.NBelkis, R.N. documented in this encounter Social History Tobacco Use Types Packs/Day Years Used Date Smoking Tobacco: Never Passive Smoke Exposure: Never Smokeless Tobacco: Never Alcohol Use Standard Drinks/Week Comments Never 2 (1 standard drink = 0.6 oz pur e alcohol) [facility] Utilities Answer Date Recorded In the past 12 months has [facility] [employer], [employer], or water Rentabilities threatened to shut off services in your [...] your living situation today? [facility] place to live 11/29/2023 Sex and Gender Information Value Date Recorded Sex Assigned at Male 07/26/2022 1:30 PM CDT Legal Sex Male 6:41 AM BANANA LOADER Gender Identity Male 07/26/2022 1:32 PM CDT Sexual Orientation Straight 07/26/2022 1: 32 PM CDT documented as of this encounter OR Notes * Anesthesia Postprocedure Evaluation - Baltazar Pacheco M.D. - 01/06/2024 3:32 PM CST Patient: Estevan Lester Procedure Summary Date: 01/06/24 Room / Location: [place] [address] / [facility] in [place], [place] Anesthesia Start: 075 Anesthesia Stop: 1406 Procedure: ARTHROPLASTY REVISION FEMORAL PLUS ACETABULAR HIP. (Right: Hip) Diagnosis: Infection Total Hip Arthroplasty Subsequent Right (Infection Total Hip Arthroplasty Subsequent Right [T84.51XD].) Providers: Vel Vinson M.D., M.B.A. Responsible Provider: Baltazar Pacheco M.D. Anesthesia Type: general with pain block ASA Status: 3 Anesthesia Type: general with pain block Last vitals Vitals Value Taken Time BP 97/75 01/06/24 1530 Temp 36.7 ??C 01/06/24 1450 Pulse 68 01/06/24 1531 Resp 16 01/06/24 1531 SpO2 96 % 01/06/24 1531 Vitals shown include unfiled device data. Please reference Vitals flowsheet for most recent vital signs. Anesthesia Post Evaluation Patient Disposition: general care unit Cardiovascular status: hemodynamics (HR & BP) acceptable Respiratory status: patent airway with spontaneous effort Temperature: normothermic Oxygen requirements: room air Level of consciousness: awake Pain score: pain adequately controlled and/or at baseline Post Op nausea/vomiting: none Hydration status: euvolemic Comments: Patient doing well ,,hemodynamically stable so to regular nursing floor. Notable Events Encounter Notable Events Notable Event Outcome Phase Comment Difficult mask airway Intraprocedure Filed from anesthesia note documentation. NA LOADER * Anesthesia Preprocedure Evaluation - Baltazar Pacheco M.D. - 01/06/2024 11:19 AM CST Preprocedure Anesthesia & H&P Assessment Procedure Summary Anesthesia Start Date/Time: 01/06/24 075 Procedure: ARTHROPLASTY REVISION FEMORAL PLUS ACETABULAR HIP. 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 Location: [place] [address] / [facility] in [place], [place] Providers: Vel Vinson M.D., M.B.A. Pertinent components of the patient's history including [...] (+) Stroke (HCC) (+) Transient Ischemic Attack OBJECTIVE PHYSICAL EXAMINATION Airway (HEENT) Mallampati: II Cardiovascular Rhythm: Regular Functional Capacity: >4 METS Pulmonary Pulmonary Assessment: Clear General / Constitutional Constitutional Assessment: Normal ASSESSMENT / PLAN ANESTHESIA PLAN ASA: 3 Anesthesia Plan: general Arterial line for monitoring Patient seen and allergies reviewed, anesthesia plan and risks discussed directly with patient /legal guardian or through an entry level programmer. Risks/Benefits/Alternatives of Blood transfusion discussed with patient / legal guardian, includingan opportunity to ask questions and/or decline some or all transfusion therapies. The patient / legal guardian consented to the use of all blood products, as deemed medically necessary Approval to Proceed: approved for anesthesia NA LOADER * Anesthesia Procedure Notes - Hanh Mckay CCRN - 01/06/2024 9:31 AM CSTAssociated Order(s): Airway Airway Date/Time: 01/06/2024 8:09 AM Performed by: Hanh Mckay CCRN Authorized by: Baltazar Pacheco M.D. Patient location during procedure: OR / Procedure Area PROCEDURE DETAILS: Mask difficulty assessment: difficult mask (two-handed) with oral airway Final airway type: video laryngoscope Laryngeal Manipulation: no Final best view of glottic structures - Cormack/Lehane Score: grade 1 ETT location: oral VL device: glide scope [place] scope blade size: 3 Tube size: 7.5 [...] Procedure outcome: successful Notable Events: no complications NA LOADER * Anesthesia Procedure Notes - Hanh Mckay CCRN - 01/06/2024 9:28 AM CSTAssociated Order(s): Invasive Catheter Invasive Catheter Date/Time: 01/06/2024 9:28 AM Performed by: Hanh Mckay CCRN Authorized by: Baltazar Pacheco M.D. Care team members present 1. Blatazar Pacheco M.D. 2. Kayleigh Correia APRN, CRNA, [...] Notable Events - arterial: none Cosigned by Baltazar Pacheco M.D. at 01/06/2024 11:19 AM BANANA LOADER NA LOADER NA LOADER documented in this encounter Plan of Treatment Upcoming Encounters Date Type Department Care Team (Latest Contact Info) Description 01/27/2024 12:30 PM BANANA LOADER Appointment Department of Orthopedic Surgery in [address] [phone] Lizeth Joe MPAS PBernie.-C. [address] [place] [phone] Discharge Disposition: Home or Self Care 02/19/2024 1:45 PM BANANA LOADER Appointment Department of Radiology, [facility] in [address] [phone] Fantasma Butt M.D. [address] [place] [phone] 02/20/2024 11:00 AM BANANA LOADER Virtual Visit Department of Radiology, [facility], in [address] [phone] Radha Oejda P.A.-C., M.S. [address] [place] [phone] 04/13/2024 2:00 PM BANANA LOADER Clinical Communication Virtual Review in [address] [phone] 04/15/2024 12:00 PM BANANA LOADER Appointment Department of Radiology, [facility], in [address] [phone] Brittney Piña MPAS, P.A.-C. [address] [place] [phone] 04/15/2024 1:00 PM BANANA LOADER Office Visit Department of Orthopedic Surgery in [address] [phone] Vel Vinson M.D., M.B.A. [address] [place] [phone] documented as of this encounter Procedures Procedure Name Priority Date/Time Associated Diagnosis Comments LDA ANE ARTERIAL LINE INSERTION Routine 01/06/2024 9:28 AM BANANA LOADER CO ARTL CATH/CNULA MONITOR PERC Routine 01/06/2024 9:28 AM BANANA LOADER LDA ANE ENDOTRACHEAL AIRWAY Routine 01/06/2024 8:09 AM BANANA LOADER documented in this encounter Results * CO ARTL CATH/CNULA MONITOR PERC, LDA ANE ARTERIAL LINE INSERTION (01/06/2024 9:28 AM BANANA LOADER) Narrative Baltazar Pacheco M.D. - 01/06/2024 9:28 AM BANANA LOADER Hanh Mckay CCRN 01/06/2024 9:31 AM Invasive [...] turn: yes Notable Events - arterial: none us Baltazar Pacheco M.D. PROCEDURE/MINOR SURGICAL ORDE RABLES Final Result * LDA ANE ENDOTRACHEAL AIRWAY (01/06/2024 8:09 AM BANANA LOADER) Narrative Hanh Mckay CCRN - 01/06/2024 8:09 AM BANANA LOADER Hanh Mckay CCRN 01/06/2024 9:33 AM Airway [...] ETT location: oral VL device: glide scope [place] scope blade size: 3 Tube size: 7.5 [...] Pacheco M.D. ANESTHESIA ORDERABLES Final R esult documented in this encounter Visit Diagnoses Not on filedocumented in this encounter Administered Medications Inactive Administered Medications - up to 3 most recent administrations Medication Order MAR Action Action Date Dose Rate Site albumin human 5 % injection intravenous, As needed, Starting on Fri01/06/24 at 0816, Anesthesia Intra-op Given 01/06/2024 11:37 AM BANANA LOADER 250 mL Given 01/06/2024 9:04 AM BANANA LOADER 250 mL Given 01/06/2024 8:16 AM BANANA LOADER 250 mL ceFAZolin injection 2,000 mg (Ancef) 2,000 mg (rounded from 2,275 mg = 25 mg/kg 91 kg Dosing weight), intravenous, Once, On Fri01/06/24 at 0700, For 1 dose, Intra-Op, Administer within 1 hour prior to surgical incision For immediate IV push administration, reconstitute vial per IVAG or package insert instructions. See IVAG for administration guidelines., Drug Monitoring Program: Pharmacist to adjust medication dosing based on indication and drug clearance factors., Indications: Prophylaxis, surgicalIndications:Prophylaxis, surgical Given 01/06/2024 11:47 AM BANANA LOADER 2 g Given 01/06/2024 8:47 AM BANANA LOADER 2 g dexAMETHasone injection (Decadron) intravenous, As needed, Starting on Fri01/06/24 at 1020, Anesthesia Intra-op Given 01/06/2024 10:20 AM BANANA LOADER 4 mg ePHEDrine (PF) injection intravenous, As needed, Starting on Fri01/06/24 at 0814, Anesthesia Intra-op Given 01/06/2024 1:12 PM BANANA LOADER 5 mg Given 01/06/2024 12:38 PM BANANA LOADER 5 mg Given 01/06/2024 11:32 AM BANANA LOADER 5 mg fentaNYL injection (Sublimaze) intravenous, As needed, Starting on Fri01/06/24 at 0806, Anesthesia Intra-op Given 01/06/2024 10:23 AM BANANA LOADER 25 mc g Given 01/06/2024 8:06 AM BANANA LOADER 25 mcg glycopyrrolate injection (RobinuL) intravenous, As needed, Starting on Fri01/06/24 at 0821, Anesthesia Intra-op Given 01/06/2024 8:27 AM BANANA LOADER 0.2 mg Given 01/06/2024 8:21 AM BANANA LOADER 0.2 mg HYDROmorphone injection (Dilaudid) intravenous, As needed, Starting on Fri01/06/24 at 0857, Anesthesia Intra-op Given 01/06/2024 8:57 AM BANANA LOADER 0.4 mg insulin aspart U-100 injection 0-8 Units (NovoLOG FlexPen) 0-8 Units, subcutaneous, Every 2 hour PRN, high blood sugar, Nurse to determine and administer dose., Starting on Fri01/06/24 at 0608, For 2 doses, Pre-Op, Nurse to administer [...] to 300: Call provider managing diabetes Given 01/06/2024 1:35 PM BANANA LOADER 6 Units Lactated Ringer's intravenous, Continuous Infusion: Per Instructions PRN, Starting on Fri01/06/24 at 0809, Anesthesia Intra-op Restarted 01/06/2024 11:10 AM BANANA LOADER New Bag 01/06/2024 8:11 AM BANANA LOADER New Bag 01/06/2024 8:09 AM BANANA LOADER Lactated Ringer's intravenous, Continuous Infusion: Per Instructions PRN, Starting on Fri01/06/24 at 0830, Anesthesia Intra-op New Bag 01/06/2024 12:55 PM BANANA LOADER New Bag 01/06/2024 8:30 AM BANANA LOADER lidocaine (PF) (cardiac) injection intravenous, As needed, Starting on Fri01/06/24 at 0806, Anesthesia Intra-op Given 01/06/2024 8:06 AM BANANA LOADER 100 mg ondansetron (PF) injection (Zofran) intravenous, As needed, Starting on Fri01/06/24 at 1220, Anesthesia Intra-op Given 01/06/2024 12:20 PM BANANA LOADER 4 mg phenylephrine 80 mcg/mL in NaCl 0.9% 250 mL infusion intravenous, Continuous Infusion: Per Instructions PRN, Starting on Fri01/06/24 at 0857, Anesthesia Intra-op Rate/Dose Change 01/06/2024 12:27 PM BANANA LOADER 0.5 mcg/kg/min 34.125 mL/hr Rate/Dose Change 01/06/2024 11:54 AM BANANA LOADER 0.44 mcg/kg/min 3 0.03 mL/hr Rate/Dose Change 01/06/2024 11:36 AM BANANA LOADER 0.6 mcg/kg/min 40 .95 mL/hr phenylephrine injection intravenous, As needed, Starting on Fri01/06/24 at 0811, Anesthesia Intra-op Given 01/06/2024 12:26 PM BANANA LOADER 100 m cg Given 01/06/2024 11:36 AM BANANA LOADER 100 mcg Given 01/06/2024 10:57 AM BANANA LOADER 50 mcg propofoL injection (Diprivan) intravenous, As needed, Starting on Fri01/06/24 at 0806, Anesthesia Intra-op Given 01/06/2024 8:06 AM BANANA LOADER 150 mg rocuronium injection (Zemuron) intravenous, As needed, Starting on Fri01/06/24 at 0806, Anesthesia Intra-op Given 01/06/2024 8:06 AM BANANA LOADER 50 mg sugammadex injection (Bridion) intravenous, As needed, Starting on Fri01/06/24 at 1332, Anesthesia Intra-op Given 01/06/2024 1:32 PM BANANA LOADER 180 mg tranexamic acid in NaCl IVPB 1,000 mg (Cyklokapron) 1,000 mg (1 g), intravenous, at 300 mL/hr, Administer over 20 Minutes, Once, On Fri01/06/24 at 0700, For 1 dose, Intra-Op, Administer in OR upon induction Given 01/06/2024 8:47 AM BANANA LOADER 1 g tranexamic acid in NaCl IVPB 1,000 mg (Cyklokapron) 1,000 mg (1 g), intravenous, at 300 mL/hr, Administer over 20 Minutes, Once, On Fri01/06/24 at 0700, For 1 dose, Intra-Op, Administer in OR just before dropping tourniquet Given 01/06/2024 12:28 PM BANANA LOADER 1 g Transfuse Red Blood Cells : Routine New Bag 01/06/2024 12:05 PM BANANA LOADER vasopressin injection (Pitressin) intravenous, As needed, Starting on Fri01/06/24 at 1039, Anesthesia Intra-op Given 01/06/2024 12:33 PM BANANA LOADER 1 Uni ts Given 01/06/2024 12:00 PM BANANA LOADER 1 Units Given 01/06/2024 11:36 AM BANANA LOADER 1 Units documented in this encounter Care Teams Sales Advisor Relationship Specialty Start Date End Date Elsewhere, Pcp PCP - General Internal Medicine 10/03/23 documented as of this encounter
--- OUTSIDE RECORDS SUMMARY | 2024-01-22 16:35 | XMS_ITS | Encounter Summary ---
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 [address] [place] [address] Phone: tel: fax: Referral ID Status Reason Start Date Expiration Date Visits Re quested Visits Authorized [id number] 1 1 Encounter Details Date Type Department Care Team (Late st Contact Info) Description 01/06/2024 7:25 AM INSULATION BOARD COATER OPERATOR - 01/06/2024 12:11 PM INSULATION BOARD COATER OPERATOR Surgery [facility] [address] [place] [address] Vel Vinson M.D., M.B.A. [address] [place] [phone] ARTHROPLASTY REVISION FEMORAL PLUS ACETABULAR HIP. Social History Tobacco Use Types Packs/Day Years Used Date Smoking Tobacco: Never Passive Smoke Exposure: Never Smokeless Tobacco: Never Alcohol Use Standard Drinks/Week Comments Never 2 (1 standard drink = 0.6 oz pur e alcohol) [facility] Utilities Answer Date Recorded In the past 12 months has th e electric, gas, oil, or water [employer] threatened to shut off services in your [...] living situation today? I have a [facility] [place] place to live 11/29/2023 Sex and Gender Information Value Date Recorded Sex Assigned at Male 07/26/2022 1:30 PM CDT Legal Sex Male 6:41 AM INSULATION BOARD COATER OPERATOR Gender Identity Male 07/26/2022 1:32 PM CDT Sexual Orientation Straight 07/26/2022 1: 32 PM CDT documented as of this encounter Last Filed Vital Signs Vital Sign Reading Time Taken Comments Blood Pressure 133/83 01/06/2024 6:24 AM INSULATION BOARD COATER OPERATOR Pulse 56 01/06/2024 6:00 AM INSULATION BOARD COATER OPERATOR Temperature 36.5 C (97.7 F) 01/06/2024 6:00 AM INSULATION BOARD COATER OPERATOR Respiratory Rate 28 01/06/2024 6:00 AM INSULATION BOARD COATER OPERATOR Oxygen Saturation 97% 01/06/2024 6:0 0 AM INSULATION BOARD COATER OPERATOR Inhaled Oxygen Concentration - - Weight 91 kg (200 lb 9.9 oz) 01/06/2024 6:24 AM INSULATION BOARD COATER OPERATOR verbal from sister Height 181 cm (5' 11.26) 01/06/2024 6: 24 AM INSULATION BOARD COATER OPERATOR verbal from sister Body Mass Index 27.78 01/08/2024 1:22 PM INSULATION BOARD COATER OPERATOR documented in this encounter Discharge Summaries * Trae Coffey M.D. - 01/09/2024 6:55 AM CST DISCHARGE SUMMARY BRIEF OVERVIEW Hospital: [facility] Discharge Provider: Vel Vinson M.D. Primary Team: Orthopedic Surgery - [place] Primary Care Providers: Elsewhere, Pcp (General) No address on file Primary Care Provider Phone Number: None Primary Care Provider Fax Number: None Other Providers: None Admission Date: 01/06/2024 Discharge Date: 01/09/2024 PRINCIPAL DIAGNOSIS Infection Total Hip Arthroplasty Subsequent Right SECONDARY DIAGNOSES Principal Problem: Infection Total Hip Arthroplasty Subsequent Right Active Problems: Aftercare Following Explantation Of Hip Joint Prosthesis Resolved Problems: * No resolved hospital problems. * Surgery Information This Encounter Past Procedures (01/08/2023 to Today) Date Procedures Providers Loc / Dept 01/06/2024 ARTHROPLASTY REVISION FEMORAL PLUS ACETABULAR HIP. Vel Vinson M.D., M.B.A.Trae Coffey M.D.Steen, Emily L [facility] DISCHARGE DISPOSITION Jail Facility [3] ACTIVE ISSUES REQUIRING FOLLOW UP OUTPATIENT FOLLOW UP Scheduled Appointments 02/12/2024 2:45 PM [facility] INTAKE [...] AT DISCHARGE Pending Labs Order Current Status Fungal Culture, Routine In process Fungal Culture, Routine In process Fungal Culture, Routine In process Mycobacterial Culture In process Mycobacterial Culture In process Mycobacterial Culture In process Bacteria Culture, Aerobe / Anaerobe + Susc Preliminary result Bacteria Culture, Aerobe / Anaerobe + Susc Preliminary result Bacteria Culture, Aerobe / Anaerobe + Susc Preliminary result Surgical Pathology, Frozen Lab Preliminary result DETAILS OF HOSPITAL STAY REASON FOR ADMISSION Infection Total Hip Arthroplasty Subsequent Right Aftercare Following Explantation Of Hip Joint Prosthesis HOSPITAL COURSE Surgery Information This Encounter Past Procedures (01/08/2023 to Today) Date Procedures Providers Loc / Dept 01/06/2024 ARTHROPLASTY REVISION FEMORAL PLUS ACETABULAR HIP. Vel Vinson M.D., M.B.A.Trae Coffey M.D.Steen, Emily L, [facility] RSBillie MOSS OR Estevan Leyvaald was taken to the operative room by Jesus Rolon for the procedure listed above. The intraoperative as well as the immediate postoperative course were uncomplicated. For further details of the surgery please see the operative note. The patient was transferred from the PACU to the general care floor for continued observation and monitoring. He progressed in the usual post-operative fashion without complications. The patient was treated with perioperative IV antibiotics. He was given liquids by mouth and eventually advanced as tolerated towards a more general diet. His pain was well controlled with oral pain medications. Physical therapy / Occupational therapy was consulted for assistance with mobilization and gait training. He was mobilizing without difficulty and was compliant with any activity restrictions. His incision remainedintact with no concerns. His bowel and bladder function were acceptable. He then met criteria for discharge and was later dismissed from the hospital. For any further details please see the most recent orthopedic surgery progress note and any other co-managing teams dated 01/08/2024. CONSULTS ORDERED DURING THIS ADMISSION IP CONSULT TO CARE MANAGEMENT IP CONSULT TO CARE MANAGEMENT IP CONSULT TO CARE MANAGEMENT IP CONSULT TO DIABETES IP CONSULT TO PRODUCTION MAINTENANCE MECHANIC WOUND CARE IP CONSULT TO DIETITIAN IP CONSULT TO DIETITIAN CONDITION AT DISCHARGE stable Discharge instructions were provided to the patient and caregiver(s). Total time spent in discharge services today: 5 minutes. LATION BOARD COATER OPERATOR LATION BOARD COATER OPERATOR documented in this encounter Discharge Instructions * Discharge Instr - Diet* Marbella Gaona M.S., ROSALIA BUTT - 01/08/2024 2:10 PM INSULATION BOARD COATER OPERATOR NUTRITION Nutrition dismissal summary completed by: Sarina Suresh DTR Date Completed: 01/08/2024 Phone contact: Height: 181 cm Weight: 91 kg Admission Weight: 91 kg BMI (Calculated): 27.8 kg/m?? Diet Order: General Estimated Needs: Total Calorie Needs: 1800 - 2300 calories/day Method to Estimate Energy Needs: kcal/kg (20-25 kcal/kg) Weight Used for Equation Calculations: 91 kg Total Protein Needs: 91 - 109 grams/day Method to Estimate Protein Needs (g/kg): 1 - 1.2 gm/kg Weight Used to Calculate Protein Needs (Kg): 91 kg Increase nutrition intake with small, frequent meals High protein foods with each meal. Medical food supplement(s) of choice Premier Protein or comparable high protein Oral Nutrition Supplement product daily Optimal nutrition is essential for wound healing. Please consider continuing the below listed interventions after dismissal until resolution of your pressure injury: Optimize your diet with high-quality protein sources and consume adequate calories Vitamin/mineral supplementation as prescribed LATION BOARD COATER OPERATOR LATION BOARD COATER OPERATOR * Attachments The following attachments cannot be sent through Care Everywhere. * Cefadroxil (By mouth) (Citizen [place]) * Hydromorphone (By mouth) ([place]izen [place]) documented in this encounter Medications at Time [...] 06/25/2023 4 cefadroxil (Duricef) 500 mg capsuleIndicatio ns:Blood [...] mouth daily. 30 tablet 11 08/28/2023 4 documented as of this encounter Progress Notes * Trae Coffey M.D. - 01/09/2024 7:10 AM CST SUBJECTIVE Estevan Lester was seen at the bedside this morning. Pain is well-controlled. Had an episode of vomiting overnight. At the bedside this AM, he has no specific questions or concerns, and is at his baseline. OBJECTIVE VITAL SIGNS Temperature: [36.5 ??C-36.8 ??C] 36.6 ??C Resp Rate: [16-18] 16 Blood Pressure: (140-154)/(72-81) 153/74 Arterial Line BP: (143)/(75) 143/75 SpO2: [93 %-98 %] 98 % Height: [181 cm] 181 cm Weight: [91 kg] 91 kg BSA (Calculated - sq m): [2.14 sq meters] 2.14 sq meters BMI (Calculated): [27.8 kg/m??] 27.8 kg/m?? Pulse Rate: [59-66] 65 I/O last 3 completed shifts: In: 780 [P.O.:780] Out: 950 [Urine:950] PHYSICAL EXAM General: No acute distress resting comfortably in bed Respiratory: Regular rate of breathing with normal chest rise Musculoskeletal: On examination of the operative lower extremity, surgical dressings clean, dry, and intact without strikethrough. Fires quadriceps, tibialis anterior, EHL, EDL, FHL, FDL, gastrocsoleus complex, and peroneals. Toes warm and well-perfused with capillary refill less than 2 sec. Palpable dorsalis pedis pulse. Wound vac intact, holding appropriate suction. No output in canister. Morning CBC and BMP appropriate. PVRs appropriate. DIAGNOSTICS I have reviewed diagnostics ASSESSMENT / PLAN #1 Infection Total Hip Arthroplasty Subsequent Right #2 Aftercare Following Explantation Of Hip Joint Prosthesis Status post hip reimplantation yesterday 01/06/2024. Progressing appropriately. Ortho IFD has provided final recommendations. He anticipates return to his home SNF this morning. Plan Status post right hip reimplantation on 01/16/2024 Diet: No diet orders on file Activity: TTWB RLE VTE Prophylaxis: Lovenox 40mg POD1, restart Xarelto on POD3 GI Prophylaxis: per orders Bowel Regimen: per orders Pain: pain well-controlled on oral pain meds Antibiotics: continue perioperative antibiotics; post-op cefadroxil 500mg PO BID x 2 weeks Anticipated Disposition: Discharge to SNF this morning. Please contact Dr. Vinson service during daytime hours or [facility] at [phone] with any questions or concerns regarding this patient., LATION BOARD COATER OPERATOR LATION BOARD COATER OPERATOR * Gino Mclain PKrissy, D.P.T. - 01/08/2024 11:39 AM CST Physical Therapy Inpatient Treatment Note SUBJECTIVE Patient's Name: Estevan Cooneygerald Referring/Attending: Vel Vinson M.D. Medical Diagnosis: Infection Total Hip Arthroplasty Subsequent Right [T84.51XD] Aftercare Following Explantation Of Hip Joint Prosthesis [Z47.32] Reason for Referral: PT Evaluate and Treat PT ortho eval and treat-hip Onset Date: 01/06/24 Payor: [facility] / Plan: [facility] [place] CARE / Product Type: Medicaid HMO / History of Present Illness: Status post right ISRRAEL revision performed on 01/06/[address] Vel Vinson. History of osteoarthritis, ISRRAEL with infection and subsequent spacer placement, CVA with residual right-sided weakness, peripheral arterial disease, diabetes mellitus type 2, and hypertension. Family/Caregiver Present: Yes (Sister) Patient Comments: Patient presents lying in bed upon PT and OT arrival. He is feeling better today and is looking forward to trialing standing. Patient is agreeable to a co treatment session at this time. Precautions Weight Bearing Status: Toe-touch weight-bearing right lower extremity Other Precautions: Right hip abduction brace at all times, right hemiparesis, fall risk OBJECTIVE Estevan's NOHARM modalities were not used during their therapy session. Vitals not formally assessed during session. No concerns during chart review and the patient had nosigns or symptoms consistent with vital changes during therapy session. Treatment consisted of: Bed Mobility - Supine to Sit # of Assistants: 2 Level of Assistance: Moderate assistance Device: Bed rail, Head of bed elevated Cuing: Verbal, Tactile Comments: Patient demonstrated some carryover of knowledge from yesterday's session but continued to require both verbal and tactile cuing to reach for bed rail with left upper extremity prior to initiating supine to sit transfer. He required physical guidance to address bed rail. Physical therapist provided moderate assistance at bilateral lower extremities while occupational therapist provided moderate assistance at the trunk to help patient complete transfer. Sit to Stand Transfers # of Assistants: 2 Transfer Surface: Bed Transfer Equipment: Gait belt, Front wheeled walker Level of Assistance: Moderate assistance Assessment/Delivery: Assessed, Instructed, Educated, Therapist assisted Comments: Patient completed cuk-oo-hczni transfer 2 times from the bed during today's session. On 1st attempt he required both verbal and tactile cuing for proper hand placement on walker and utilizea rocking motion of his trunk to help produce momentum and improve ease of transfer. He is able to remain standing for roughly 2 minutes on 1st attempt. Upon 2nd attempt patient required minor reinforcement to utilize trunk motion to help improve ease of transfer but showed good carryover of knowledge on hand placement. Patient again required moderate assistance of 2 and remain standing for roughly 45 seconds. Stand to Sit Transfers # of Assistants: 2 Transfer Surface: Bed Transfer Equipment: Gait belt, Front wheeled walker Level of Assistance: Moderate assistance Assessment/Delivery: Assessed, Therapist assisted Comments: Patient demonstrated good understanding of stand to sit transfer and completed transfer to the bed 2 times during today's session. He required moderate assistance of food due to poor eccentric control and maintained all precautions throughout. Education provided this session: Patient was educated on proper sequencing and safety of bed mobility. Patient was educated on proper sequencing and safety of functional transfers. The following coordination of care occurred today: Co-treatment with: Occupational Therapy Patient's nurse was contacted and patient's status was discussed, Discussed patient's care with OT Patient was left in bed at end of session with call light in reach, all needs met and questions answered. Outcome Measures -[facility] Inpatient Short Form: -[facility] Basic Mobility (V.2) How much help from [...] Climbing 3-5 steps with a railing?: Total -[facility] Basic Mobility (V.2) Raw Score: 7 -PAC Basic Mobility (V.2) Standardized Score: 19.39 Interpretation: Clinicians answer the -[facility] Inpatient Short Form based on observed [...] bed mobility, Assistance with stairs, Physical assistance needed Equipment Recommended - PT: Front-wheeled walker Barriers to Discharge Home: Current functional status, Fall risk, Safety concerns From a physical therapy perspective, the level of care above has been recommended for Mr. Lester after hospital discharge. This level of care is based on his functional abilities during today's session. This may change throughout the hospital course and will be updated as appropriate. Clinical Impression of today's session: Patient has shown good progress since yesterday's session was able to increase his activity level today with much improved activity tolerance. He continued to require assist of 2 for all mobility tasks but endorsed much less pain and appeared much more motivated today. Patient was very happy with his progress compared to yesterday's session. He will continue to benefit from skilled physical therapy to address his impairments and limitations to help facilitate discharge. Rehab potential: Mr. Lester has Fair potential to achieve established physical therapy goals within the time frame outlined below. Progress: Progressing toward goals Functional Goals and Timeframes: PT Inpatient Goals PT Goal #1: Patient will perform all bed mobility per home set up with moderate assistance of 1 to improve functional independence. PT Goal #1 Status: Progressing PT Goal #2: Patient will perform [id number]-gs-wygbf transfer with least restrictive device with moderate assistance of 1 to rise from a chair. PT Goal #2 Status: Progressing PT Goal #3: Patient will complete stand pivot transfer with moderate assistance of 1 with least restrictive device to transfer to and from his wheelchair. PT Goal #3 Status: Ongoing Plan Patient agrees with the plan of care and goals. Treatment Plan: Plan: Continue with current plan PT Frequency: PT Amount: Other (comment) (1-2 sessions per day as needed) PT Frequency: 7 times per week PT Inpatient Duration : Until goals are met or hospital discharge Requires Inpatient Follow-Up: Yes PT - Next Inpatient Appointment: 01/09/24 PT Plan Comments: Additional bed mobility practice per home set up, initiate functional transfers and stand pivot transfers, review home exercises, patient education on activity progression. Treatment interventions may include: Treatment/Interventions: Therapeutic exercise, Therapeutic functional activity, Neuromuscular re-education, Therapeutic modalities as needed Billing: Time Spent with Patient Therapeutic Interventions Therapeutic Activity (min): 17 min Time Tracking Total Timed Units (min): 17 min Total Treatment Time (min): 17 min Gino Mclain P.T., ErasmoP.T. LATION BOARD COATER OPERATOR * Jose Alejandro Emerson Pharm.D., R.Ph. - 01/08/2024 10:53 AM CST Pharmacist Progress Note Reason for admission: 59 y.o. male (Wt: 91 kg) S/P POD #2 right ARTHROPLASTY REVISION FEMORAL PLUS ACETABULAR HIP. on 01/07/2024. Past Medical History: Diagnosis Date Amblyopia Bilateral Anemia Apnea Sleep Obstructive Blood Transfusion No Diagnosis Cataract Diabetes Mellitus NOS Diabetes Mellitus Type 2 (HCC) Hemorrhage Gastrointestinal Hyperlipidemia Hypertension NOS Neuropathy Peripheral Other Injury Of Unspecified Body Region Polyp Colon Seizure (HCC) Sleep Apnea Stroke (HCC) Patient Active Problem List Diagnosis Apnea Sleep [...] Aftercare Following Explantation Of Hip Joint Prosthesis OBJECTIVE Home medications: reviewed. Held: Aspirin, Insulin NPH, Lisinopril (MAR hold), Nystatin, Xarelto. Changed: none. Patient own medications: none. Prophylaxis: GI: Pantoprazole. DVT/VTE: Lovenox 40 mg SubQ daily. Results from last 7 days Lab Units 01/08/24 0724 01/08/24 0721 01/06/24 1531 01/06/24 1305 SODIUM mmol/L -- 137 < > -- NABS SODIUM mmol/L -- -- -- 137 POTASSIUM mmol/L -- 5.3* < > -- POTASSIUM KBS mmol/L -- -- -- 4.1 CHLORIDE mmol/L -- 104 < > -- BICARBONATE S mmol/L -- 25 < > -- CREATININE mg/dL -- 1.39* < > -- ESTIMATED GFR EGFR mL/min/BSA -- 58* < > -- BUN mg/dL -- 53* < > -- ANION GAP -- 8 < > -- GLUCOSE mg/dL -- -- -- 247* GLUCOSE S mg/dL -- 209* < > -- POC GLUCOSE mg/dL 203* -- < > -- CALCIUM mg/dL -- 8.0* < > -- < > = values in this interval not displayed. Neuro: pain 0-07/27, managed with Tylenol 1000 mg q6h, PRN Oxycodone (10 mg yesterday), PRN IV Dilaudid (last on 01/05). Continues home dosing of Keppra for seizure history. PRN Dilaudid started 03/09. CV: mild hypertension, SBP 133-143, HR 54-72, no CV medications. Neph: SCr 1.39 (from 1.3 on 01/06 and 0.87 on 01/04), CrCl 73.7 mL/min, UOP adequate. Hyperkalemia, K 5.3 (from 5.4) Heme: acute anemia, Hgb 7.7 (<--8.2 <--6.8). Transfused 2 units PRBCs 01/06 and 1 unit on 01/05 ID: AF, WBC 7.7 (on 01/06), completed Ancef x24 hours. Continues on Cefadroxil 500 mg BID. Cultures- 01/05, pending, NGTD. GI: bowel regimen (Senna-S 1 tablet BID, PRN Bisacodyl). Endo: continues SSI & Carb.count Aspart. Serum glucose levels 158-241 mg/dL over past 24 hours. ASSESSMENT / PLAN Neuro: Pain managed with scheduled Tylenol, PRN Oxycodone, and PRN IV Dilaudid. Oxycodone discontinued and changed to oral Dilaudid PRN. Avoid Tramadol use due to its seizure threshold lowering effects. CV: Monitoring vital signs, blood pressures trending upwards, holding home dosing of Lisinopril secondary to elevated serum potassium levels. Neph: Recommend monitoring urine output, electrolytes, and fluid balance with elevated serum creatinine and hyperkalemia. Consider assessing and treating hyperkalemia as needed.. ID: Completed 24 hours of perioperative prophylaxis with Cefazolin. Continues prophylaxis with Cefadroxil for 2 weeks. Hem: Consider discontinuing Enoxaparin and resume home dosing of Xarelto on POD #2 Consider clarifying when to resume home dosing of Aspirin. Endo: Appreciate DCS for managing diabetes treatment and dosing Insulin. Consider adding back Insulin NPH per prior home regimen as able. Changes to medications anticipated at discharge: Acetaminophen 1000 mg orally every 6 hours as needed for pain. Bowel regimen. Cefadroxil 500 mg orally twice daily for 14 days. Oxycodone 5 mg orally every 4 hours as needed for pain. Pharmacy barriers to discharge: none. Jose Alejandro Emerson Pharm.D., R.Ph. [phone] LATION BOARD COATER OPERATOR * Annamaria Medellin R.N. - 01/08/2024 9:33 AM CST SUBJECTIVE Following for Discharge Planning: Jail Facility Reconnect and Transportation OBJECTIVE The patient is currently hospitalized on [place] [address], Room [address] status post orthopedic surgery on 01/06/[address] Vinson's Service. ASSESSMENT / PLAN ASSESSMENT The Nurse Service Engine Repairer met with the patient and his sister, Lor. The Nurse Service Engine Repairer shared that she received a message from the patient's orthopedic service provider indicating that the patient is close to being medically ready to discharge. The Nurse Service Engine Repairer has arranged discharge transportation tentatively for tomorrow pending medical readiness. The Nurse Service Engine Repairer has updated the facility. [employer] transportation has been arranged for Friday01/09/24 at 10:00 AM if medically ready to discharge. Please contact Case Management if patient is not medically ready, so that transportation can be postponed. [employer] ([phone]). Patient has transportation benefits. A tilt tray driver will meet the patient in their hospital room with a stretcher at time of transport. Patient to return to: Destination - Admitted Since 01/06/2024 Service Provider Services Address Phone Fax Patient Preferred [facility] [address] [place] [phone] -- Contact: Nursing Patient has a paid bedhold. Facility can manage IV antibiotics if the patient has a PICC line. Facility can manage a wound vac. Facility preferred wound vac type: case by case Facility prefers patient return by 12:00 PM . Facility cannot accept weekend readmissions. COVID screening needed before patient can return: no Facility oxygen provider is [facility] (phone [phone], fax [phone]) . Was the patient on oxygen at your facility: no Transportation to be provided by stretcher van transport. Service Engine Repairer : to arrange transportation and transport oxygen if needed. Patient prefers to use [employer]. Patient DOES have transportation benefits with [facility] for hospital discharge. What care was the patient receiving? Total assist for all ADLs - dressing, grooming, bathing, toileting, meals provided, nelda lift for transfers. How was the patient's snf stay being paid for? Private Any concerns with payment? None NURSING: Complete documentation in the Discharge Navigator [...] SERVICE: Provide written prescriptions for all narcotics as well as e-scribing to [facility] in [place], [place]. Phone: - option 2, Fax: If transport oxygen is needed, work with nursing and respiratory therapy to complete an oxygen prescription. After Visit Summary to include: All discharge medications including dosage, times for administration, diagnosis, and stop date. Ongoing care - wound care, infection precautions and phone numbers to call. Service Engine Repairer : Reviewed patient's insurance coverage for the services noted above. The patient's sister appear(s) to have an understanding of this. Will continue to follow and assist if needs arise Annamaria Medellin R.N. 01/08/24 LATION BOARD COATER OPERATOR LATION BOARD COATER OPERATOR * Trae Coffey M.D. - 01/08/2024 6:57 AM CST SUBJECTIVE Estevan Lester was seen at the bedside this morning. Pain is well-controlled. No acute events overnight. At the bedside this AM, he has no specific questions or concerns, and is at his baseline. OBJECTIVE VITAL SIGNS Temperature: [36.5 ??C-37 ??C] 36.5 ??C Resp Rate: [12-22] 16 Blood Pressure: (112-142)/(58-74) 133/71 SpO2: [90 %-96 %] 90 % Pulse Rate: [63-83] 72 I/O last 3 completed shifts: In: 1765 [P.O.:1450] Out: 1270 [Urine:1270] PHYSICAL EXAM General: No acute distress resting comfortably in bed Respiratory: Regular rate of breathing with normal chest rise Musculoskeletal: On examination of the operative lower extremity, surgical dressings clean, dry, and intact without strikethrough. Fires quadriceps, tibialis anterior, EHL, EDL, FHL, FDL, gastrocsoleus complex, and peroneals. Toes warm and well-perfused with capillary refill less than 2 sec. Palpable dorsalis pedis pulse. Wound vac intact, holding appropriate suction. No output in canister. DIAGNOSTICS I have reviewed diagnostics ASSESSMENT / PLAN #1 Infection Total Hip Arthroplasty Subsequent Right #2 Aftercare Following Explantation Of Hip Joint Prosthesis Status post hip reimplantation yesterday 01/06/2024. Progressing appropriately. Ortho IFD has provided final recommendations. He anticipates return to his home SNF. Plan Status post right hip reimplantation on 01/16/2024 Diet: Adult Diet Regular Activity: TTWB RLE VTE Prophylaxis: Lovenox 40mg POD1, restart Xarelto on POD3 GI Prophylaxis: per orders Bowel Regimen: per orders Pain: pain well-controlled on oral pain meds Antibiotics: continue perioperative antibiotics; post-op cefadroxil 500mg PO BID x 2 weeks Anticipated Disposition: Pending Please contact Dr. Karel regan during daytime hours or [facility] at [phone] with any questions or concerns regarding this patient., LATION BOARD COATER OPERATOR LATION BOARD COATER OPERATOR * Henny Garcia R.N., C.W.C.N. - 01/07/2024 2:[address] [facility] Wound RN consulted to assess Estevan Lester skin alterations. Wound assessment, pain, andBraden score noted in the flowsheet. The patient consented to photography of the affected area for clinical trending purposes. Images were taken and are available in QREADS. History: Per chart review, Mr. Estevan Lester is a 59 y.o. male status post hip runnmkefarafpn58/19/2024 with Orthopedic Surgery [facility]. 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 [facility] Wound RN consulted for assessment and recommendations for wound to coccyx noted present on admission. Assessment: Per chart review and from speaking with his sister, the patient struggles with incontinence associated dermatitis and spends majority of the day in his recliner at his facility. He has been treated with zinc, nystatin, and hydrocortisone cream in the past for the caroline rectal and coccyx area injuries. The wound present appears to be a partial thickness stage 2 pressure injury with moisture component. Please see full assessment and recommendations below: 01/07/24 1417 Wound 01/06/24 Incision Hip Anterior;Right Date First Assessed: 01/06/24 Present on Original Admission: No Primary Wound Type: Incision Location: Hip Wound Location Orientation: Anterior;Right [employer] Negative Pressure Wound Therapy Primary Dressing Status Clean;Intact;Dry Closure CONNIE Wound 01/07/24 Pressure Injury Stage 2 Coccyx Medial Date First Assessed: 01/07/24 Present on Original Admission: Yes Primary Wound Type: Pressure Injury Pressure Injury Staging: Stage 2 Location: Coccyx Wound Location Orientation: Medial Date Wound Image Taken 01/07/24 *Shape Round / oval *Wound Length (cm) 0.6 cm *Wound Width (cm) 0.3 cm *Wound Depth (cm) 0.1 cm Wound Surface Area 0.18 cm^2 *Signs of Infection None *Wound Bed Open;Partial thickness;[place] Tissue Exposed None Odor None *Exudate Amount None Caroline-wound Assessment Blanchable erythema;Painful;[place] Treatments Cleansed;Site care Periwound Treatment Cleansed (Comment);Liquid skin protectant Wound Cleansed with Normal saline *Primary Dressing Wound gel (Plurogel) *Primary Dressing Frequency of Change Daily & PRN Primary Dressing Changed New Primary Dressing Status Clean;Intact *Secondary Dressing Foam (Mepilex sacral border) *Secondary Dressing Frequency of Change Every third day & PRN Secondary Dressing Changed New Secondary Dressing Status Clean;Dry;Intact Changed by Wound door slinger;Unit based nurse Lengthy Treatment > 30 minutes > 30 minutes Ongoing management Nursing;Wound/smudgersupervisor cold rolling done by WOC RN? Yes BWAT Size 1-Length x width <4 sq cm BWAT Depth 2-Partial thickness skin loss involving epidermis and/or dermis BWAT Edges 2-Distinct, outline clearly visible, attached, even with the wound base BWAT Undermining 1-None present BWAT Necrotic Tissue Type 1-None visible BWAT Necrotic Tissue Amount 1-None visible BWAT Exudate Type 1-None BWAT Drainage Amount 2-Scant, wound moist but no observable exudate BWAT Skin Color Surrounding Wound 2-Bright red and/or blanches to touch BWAT Peripheral Tissue Edema 1-No swelling or edema BWAT Peripheral Tissue Induration 1-None present BWAT Granulation Tissue 1-Skin intact or partial thickness wound BWAT Epithelialization 5-<25% wound covered BWAT Total Score 21 Wound 06/02/23 Incontinence Associated Dermatitis Perineum Groin to Perirectal Date First Assessed/Time First Assessed: 06/02/23 1100 Primary Wound Type: Incontinence Associated Dermatitis Location: Perineum Wound Description (Comments): Groin to Perirectal *Signs of Infection None Unable to Measure Y *Wound Bed Open;[place] Tissue Exposed None Odor None *Exudate Amount None Caroline-wound Assessment Maceration;Denuded;[place] Treatments Cleansed;Liquid skin protectant Periwound Treatment Cleansed (Comment);Liquid skin protectant Wound Cleansed with Normal saline *Primary Dressing Other (Comment) (zinc will be initiated) *Primary Dressing Frequency of Change 2x/day & PRN Patient is on an advanced wave low air loss and immersion mattress. Primary team is managing the surgical right hip site with wound vac in place. Head to toe skin assessment completed and no other concerns. DRESSING RECOMMENDATIONS: #1 Pressure Injury Stage 2 Coccyx Medial -Cleanse the stage 2 pressure injury located on the medial coccyx with Vashe wound cleanser and [id number]. Pat dry. -Apply Sureprep liquid skin protectant to the periwound and allow to fully dry. -Apply a layer of PluroGel, 3mm thick, directly to the wound bed. -Ensure that the PluroGel covers the wound completely. -Cover with a sacral Mepilex border. -Change once daily and PRN. Offload Tips: -Complete a full 30 degree turn from side to side every 2 hours with supine positioning only for meals. -Utilize the Samir wedge to assist in patient positioning at 30 degrees. Ensure that the wedge is positioned so the arrows point up. Place a sheet in-between the patient and wedge. Place along the patient's back and thighs making sure the sacrum floats. -Keep the HOB below 30 degrees except for meals unless medically contraindicated. -Utilize a ROHO, EquaGel or static air cushion when up to the chair. -Reposition at least every hour while in the chair. #2 Incontinence Associated Dermatitis Perineum Groin to Perirectal -Cleanse the affected caroline rectal & groin area(s) twice daily, and after each episode of incontinence, utilizing foam cleanser and dampened WypAlls or washcloths. Pat dry. -Apply a thin, translucent layer of Zinc Oxide Paste (PROTECT/Z Guard) to the affected caroline rectal area. -Paste DOES NOT need to be cleansed away completely each time. ONLY soiled areas of the paste need to be removed with cleansing when underlying tissue is friable. -Apply InterDry?? Ag textile to the bilateral groin with one edge of the textile in the base of theskin fold. -Smooth the rest of the fabric over the skin single layered. -Ensure at least 2 inches of fabric is exposed to air on at least one side of the skin fold for moisture evaporation to be effective. -Replace InterDry?? Ag textile if it becomes soiled with urine, feces, excessive serous drainage, or in five days. Recommended interventions for pressure redistribution and shear reduction: Offload heels on pillows at all times when in bed. Full 30 degree turns side to side every 2 hours with supine positioning only for meals. Apply and utilize the LEAF monitoring system. Utilize the Samir Wedge to assist in patient positioning at 30 degrees. Ensure that the wedge is positioned so the arrows point up. Place a sheet in-between patient and wedge. Place along patient's back and thighs making sure the sacrum floats. Reposition at least every hour while in the chair. Reposition medical devices per policy. Assess and pad the skin under and surrounding the medical devices with a prophylactic foam dressing. Keep the HOB below 30 degrees except for meals unless medically contraindicated. Apply a prophylactic sacral Mepilex?? border dressing to cover the coccyx/sacral area. Ensure the dressing is in full contact with the skin to prevent moisture- related skin breakdown. Lift twice daily to assess when used for prevention. Change every 3 days and PRN. Utilize the Advanced Wave Low Air Loss and Immersion mattress. Utilize a ROHO cushion when up to the chair. Utilize an Equagel cushion when in the chair. Recommended interventions for moisture control: [...] Wave low air loss and immersion mattress. Apply Zinc Oxide Paste (PROTECT/Z Guard). Reapply after each episode of incontinence and routine hygiene cares as directed. Consult recommendations: Nutrition Consult was placed for pressure injury needs. Education: Discussed the plan of care with the patient and nursing. They agree to the plan. The WOC RN will continue to see the patient, contact or reconsult for worsening wounds or new wounds. Electronically signed by: Henny Garcia R.N., Cristal 01/07/24 2:39 PM INSULATION BOARD COATER OPERATOR LATION BOARD COATER OPERATOR LATION BOARD COATER OPERATOR * Chio Peoples - 01/07/2024 2:18 PM CST 01/07/24 1418 Reason Therapy Missed Reason Therapy Missed Receiving other care During p.m. visit, patient was being seen by physical therapy. Upon end of physical therapy session, wound care entered to see patient. Collaborated briefly with physical therapist and patient's sister regarding patient's functional/transfer status. Will utilize information when patient is seen next for co treatment with physical therapy. Will follow-up tomorrow as able/appropriate. Cosigned by Olga Lidia Lara O.T., O.T.Erasmo at 01/07/2024 3:44 PM INSULATION BOARD COATER OPERATOR LATION BOARD COATER OPERATOR LATION BOARD COATER OPERATOR * Jose Alejandro Emerson, D., R.Ph. - 01/07/2024 9:42 AM CST Pharmacist Progress Note Reason for admission: 59 y.o. male (Wt: 91 kg) S/P POD #1 right ARTHROPLASTY REVISION FEMORAL PLUS ACETABULAR HIP. on 01/07/2024. Past Medical History: Diagnosis Date Amblyopia Bilateral Anemia Apnea Sleep Obstructive Blood Transfusion No Diagnosis Cataract Diabetes Mellitus NOS Diabetes Mellitus Type 2 (HCC) Hemorrhage Gastrointestinal Hyperlipidemia Hypertension NOS Neuropathy Peripheral Other Injury Of Unspecified Body Region Polyp Colon Seizure (HCC) Sleep Apnea Stroke (HCC) Patient Active Problem List Diagnosis Apnea Sleep [...] Aftercare Following Explantation Of Hip Joint Prosthesis OBJECTIVE Home medications: reviewed. Held: Aspirin, Insulin NPH, Lisinopril (MAR hold), Nystatin, Xarelto. Changed: none. Patient own medications: none. Prophylaxis: GI: Pantoprazole. DVT/VTE: Lovenox 40 mg SubQ daily. Results from last 7 days Lab Units 01/07/24 0748 01/07/24 0335 01/06/24 1531 01/06/24 1305 SODIUM mmol/L -- 139 -- -- NABS SODIUM mmol/L -- -- -- 137 POTASSIUM mmol/L -- 5.4* -- -- POTASSIUM KBS mmol/L -- -- -- 4.1 CHLORIDE mmol/L -- 105 -- -- BICARBONATE S mmol/L -- 22 -- -- CREATININE mg/dL -- 1.30 -- -- ESTIMATED GFR EGFR mL/min/BSA -- 63 -- -- BUN mg/dL -- 29* -- -- ANION GAP -- 12 -- -- GLUCOSE mg/dL -- -- -- 247* GLUCOSE S mg/dL -- 175* -- -- POC GLUCOSE mg/dL 158* -- < > -- CALCIUM mg/dL -- 7.8* -- -- < > = values in this interval not displayed. Neuro: pain 05/27, managed with Tylenol 1000 mg q6h, Ketorolac 15 mg IV q6h x4 doses, PRN Oxycodone (no use), PRN IV Dilaudid (0.4 mg yesterday). Continues home dosing of Keppra for seizure history. CV: hypotension overnight, SBP 85-129, HR 71-97, no CV medications. Neph: SCr 1.3 (from 0.87 on 01/04), CrCl 78.8 mL/min, UOP adequate. Hyperkalemia, K 5.4 Heme: acute anemia, Hgb 6.8; PLTs 98. ID: AF, WBC 8.7, completed Ancef x24 hours. Continues on Cefadroxil 500 mg BID. Cultures- 01/05, pending, NGTD. GI: bowel regimen (Senna-S 1 tablet BID, PRN Bisacodyl). Endo: continues SSI & Carb.count Aspart. Serum glucose levels 98-231 mg/dL over past 24 hours. ASSESSMENT / PLAN Neuro: Pain managed with scheduled Tylenol and Ketorolac, PRN Oxycodone, and PRN IV Dilaudid. Recommend discontinuing Ketorolac due to elevated serum creatinine and hyperkalemia. Avoid Tramadol use due to its seizure threshold lowering effects. CV: Monitoring vital signs, hypotension improved this morning, holding home dosing of Lisinopril. Neph: Recommend monitoring urine output, electrolytes, and fluid balance with elevated serum creatinine and hyperkalemia. Consider assessing and treating hyperkalemia as needed.. ID: Completed 24 hours of perioperative prophylaxis with Cefazolin. Continues prophylaxis with Cefadroxil for 2 weeks. Hem: Anticoagulation plan is for Enoxaparin x 1 dose on POD #1, then resume home dose of Xarelto on POD #2 Consider clarifying when to resume home dosing of Aspirin. Endo: Recommend consulting DCS for managing diabetes treatment and dosing Insulin.. Changes to medications anticipated at discharge: Acetaminophen 1000 mg orally every 6 hours as needed for pain. Bowel regimen. Cefadroxil 500 mg orally twice daily for 14 days. Oxycodone 5 mg orally every 4 hours as needed for pain. Pharmacy barriers to discharge: none. Jose Alejandro Emerson Pharm.D., R.Ph. [phone] LATION BOARD COATER OPERATOR * Trae Coffey M.D. - 01/07/2024 7:13 AM CST ROCKY Lester was seen at the bedside this morning. Pain is well-controlled. Overnight, his nausea improved, and he demonstrated hypotension the 80s/90s systolically. At the bedside this AM, he has no specific questions or concerns, and is at his baseline. OBJECTIVE VITAL SIGNS Temperature: [35.8 ??C-37.2 ??C] 37.2 ??C Heart Rate: [67-75] 71 Resp Rate: [14-18] 16 Blood Pressure: (82-127)/(47-77) 89/47 Arterial Line BP: (95-125)/(50-66) 106/66 SpO2: [92 %-98 %] 94 % Flow Rate (L/min): [0 L/min] 0 L/min Pulse Rate: [64-97] 80 I/O last 3 completed shifts: In: 3624.1 [P.O.:100] Out: 2029 [Urine:1130; Blood:900] PHYSICAL EXAM General: No acute distress resting comfortably in bed Respiratory: Regular rate of breathing with normal chest rise Musculoskeletal: On examination of the operative lower extremity, surgical dressings clean, dry, and intact without strikethrough. Fires quadriceps, tibialis anterior, EHL, EDL, FHL, FDL, gastrocsoleus complex, and peroneals. Toes warm and well-perfused with capillary refill less than 2 sec. Palpable dorsalis pedis pulse. Wound vac intact, holding appropriate suction. No output in canister. DIAGNOSTICS I have reviewed diagnostics ASSESSMENT / PLAN #1 Infection Total Hip Arthroplasty Subsequent Right #2 Aftercare Following Explantation Of Hip Joint Prosthesis Status post hip reimplantation yesterday 01/06/2024. Progressing appropriately. Will receive 2u pRBC this morning for Hgb 6.8. Plan Status post right hip reimplantation on 01/16/2024 Diet: Adult Diet Regular Activity: TTWB RLE VTE Prophylaxis: Lovenox 40mg POD1, restart Xarelto on POD2 GI Prophylaxis: per orders Bowel Regimen: per orders Pain: pain well-controlled on oral pain meds Antibiotics: continue perioperative antibiotics; post-op cefadroxil 500mg PO BID x 2 weeks Anticipated Disposition: Pending Please contact Dr. Karel regan during daytime hours or [facility] at [phone] with any questions or concerns regarding this patient., LATION BOARD COATER OPERATOR * Trae Coffey M.D. - 01/06/2024 8:32 PM CST SUBJECTIVE Estevan Lester was seen at the bedside this evening. Pain is well-controlled. Patient endorses nausea and had an episode of emesis upon my entrance. OBJECTIVE VITAL SIGNS Temperature: [35.8 ??C-36.7 ??C] 36.3 ??C Heart Rate: [55-75] 71 Resp Rate: [14-28] 16 Blood Pressure: (82-133)/(50-83) 85/50 Arterial Line BP: (95-125)/(50-66) 106/66 SpO2: [94 %-98 %] 96 % Flow Rate (L/min): [0 L/min] 0 L/min Height: [181 cm] 181 cm Weight: [91 kg] 91 kg BSA (Calculated - sq m): [2.14 sq meters] 2.14 sq meters BMI (Calculated): [27.8 kg/m??] 27.8 kg/m?? Pulse Rate: [56-78] 74 I/O last 3 completed shifts: In: 3534.1 Out: 1830 [Urine:930; Blood:900] PHYSICAL EXAM General: No acute distress resting comfortably in bed Respiratory: Regular rate of breathing with normal chest rise Musculoskeletal: On examination of the operative lower extremity, surgical dressings clean, dry, and intact without strikethrough. Fires quadriceps, tibialis anterior, EHL, EDL, FHL, FDL, gastrocsoleus complex, and peroneals. Toes warm and well-perfused with capillary refill less than 2 sec. Palpable dorsalis pedis pulse. DIAGNOSTICS I have reviewed diagnostics ASSESSMENT / PLAN #1 Infection Total Hip Arthroplasty Subsequent Right #2 Aftercare Following Explantation Of Hip Joint Prosthesis Plan Status post right hip reimplantation on 01/16/2024 Diet: Adult Diet Regular Activity: TTWB RLE VTE Prophylaxis: Lovenox 40mg POD1, restart Xarelto on POD2 GI Prophylaxis: per orders Bowel Regimen: per orders Pain: pain well-controlled on oral pain meds Antibiotics: continue perioperative antibiotics; post-op cefadroxil 500mg PO BID x 2 weeks Anticipated Disposition: Pending Please contact Dr. Karel regan during daytime hours or [facility] at [phone] with any questions or concerns regarding this patient., LATION BOARD COATER OPERATOR * Gino Mclain P.T., D.P.T. - 01/06/2024 5:31 PM CST 01/06/24 1731 Reason Therapy Missed Reason Therapy Missed Medical hold PT attempted to work patient in the evening after he arrived at his room. Patient was very somnolent and unable to meaningfully participate in a physical therapy evaluation tonight. PT will evaluate tomorrow, 01/07/2024, as safe and appropriate. LATION BOARD COATER OPERATOR * Noam Richardson Jr., Janessa., R.Ph. - 01/06/2024 6:24 AM CST Images from the original note were not included. Admission Medication History Note Adherence issues: No concerns Medication list source: Family member and [address] [place] [address] RN ([phone]) Medication related information: Aspirin and Xarelto last doses were on 01/01 Held Lisinopril and insulin this AM Keppra given around 0300 today Prior to Admission Medications Med List Status: Pharmacy Complete Set By: Noam Richardson Jr., PharmBelkisD., R.Ph. at 01/06/2024 6:24AM Taking? Last Dose Informant Start Date End Date LT acetaminophen (TYLENOL) 500 mg tablet 01/06/2024 at Morning -- 03/20/23 -- Take 2 tablets (1,000 mg total) by mouth every 6 (six) hours as needed for mild pain or score 1-3 of 10 or moderate pain or score 4-6 of 10. Patient taking differently: Take 1,000 mg by mouth 3 (three) times a day. 2-3 times daily aspirin 81 mg chewable tablet () 01/02/2024 -- 06/25/23 08/24/23 Chew 1 tablet (81 mg total) daily. Notes: Taking atorvastatin (LIPITOR) 20 mg tablet 01/05/2024 -- 06/25/23 -- Take 1 tablet (20 mg total) by mouth at bedtime. carboxymethylcellulose (REFRESH PLUS) 0.5 % ophthalmic solution Past Month -- 06/25/23 -- Administer 2 drops into both eyes 4 (four) times a day as needed for dry eyes. insulin NPH (NovoLIN N FlexPen) 100 unit/mL (3 mL) pen 01/05/2024 at Evening -- 12/02/23 -- Inject 4-8 Units under the skin 2 (two) times a day with meals. takes 8 units in the AM and 4 unitsin the afternoon lancets -- Self 07/29/22 -- 1 each daily. levETIRAcetam (Keppra) 100 mg/mL solution 01/06/2024 at 3:00 AM -- 06/25/23 -- Take 7.5 mL (750 mg total) by mouth 2 (two) times a day. lisinopriL 5 mg tablet 01/05/2024 -- 09/03/23 -- Take 5 mg by mouth daily. nystatin (Mycostatin) 100,000 unit/gram cream 01/05/2024 -- 12/25/23 -- Apply 1 Application topically 2 (two) times a day. nystatin (Nystop) 100,000 unit/gram powder 01/05/2024 -- -- -- Apply 1 Application topically 2 (two) times a day. pantoprazole (Protonix) 40 mg EC tablet 01/06/2024 at Morning -- -- -- Take 40 mg by mouth daily before morning meal. Notes: BID until 12/06 then planned to [...] polyethylene glycol (Miralax) 17 gram powder packet 01/05/2024 -- -- -- Take 17 g by mouth daily. Dissolve each 17 g dose in 240 mLs (8 ounces) of beverage. rivaroxaban (Xarelto) 10 mg tablet 01/02/2024 -- 08/28/23 08/27/24 Take 1 tablet (10 mg total) by mouth daily. Patient taking differently: Take 10 mg by mouth daily. On hold sennosides (Senokot) 8.6 mg tablet 01/05/2024 -- -- -- Take 8.6 mg by mouth 2 (two) times a day. LATION BOARD COATER OPERATOR documented in this encounter Consult Notes * Richelle Chio K - 01/08/2024 3:43 PM CST Occupational Therapy [facility] Inpatient Evaluation/Treatment SUBJECTIVE Patient's Name: Estevan Lester Referring/Attending Provider: Vel Vinson M.D. Reason for Referral: Occupational Therapy Evaluation [...] 59 y.o. male who was admitted to [facility] in [place] on 01/06/2024 for Infection Total Hip Arthroplasty Subsequent Right [T84.51XD] Aftercare Following Explantation Of Hip Joint Prosthesis [Z47.32]. Relevant Medical History: Stroke, type 2 diabetes, hypertension, neuropathy, seizure. Precautions Weight Bearing Status: Toe-touch weight-bearing of right lower extremity Other Precautions: Hip precautions Pain Assessment: Pain not reported, but observed in therapy session Subjective Comments: Patient greeted in bed and agreeable to therapy session. Patient/Caregiver Goals: Decrease pain To discharge with skilled rehab Return to prior level of function Home Living and Equipment: Lives With: Other (Comment) (Resides in SNF.) Receives Help From: Facility staff, Family Type of Home: senior living facility Home Layout: Able to live on main level with bedroom/bathroom Home Access: Ramped entrance Bathroom Shower/Tub: Walk-in shower Bathroom Toilet: Comfort height How Accessible: Accessible via wheelchair Gait Devices Owned: Front-wheeled walker Bathroom Equipment: Shower chair with back, Grab bars in shower, Grab bars around toilet Prior Level of Function and Mobility: ADL Assistance: Required assistance IADL/Homemaking Assistance: Required assistance Driving: Does not drive Level of [place]: Needs assistance (Patient uses wheelchair to mobilize, but requires assistance to transfer.) Gait Devices/Wheelchair Used: Manual wheelchair, Power wheelchair OBJECTIVE Vital Signs: Vitals not formally assessed during session. No concerns during chart review and the patient had nosigns or symptoms consistent with vital changes during therapy session. Evaluation Assessment: STRENGTH: Right upper extremity impaired, left upper extremity within functional limits RANGE OF MOTION: Right upper extremity impaired, left upper extremity within functional limits Outcome Measures: AM-PAC Inpatient Short Form: Putting on and taking [...] be scored without physically performing each activity). BIMS was not officially completed due to patient not understanding first three words of sock, blue, bed to repeat back to therapist. Patient was able to accurately state the year, month, and day ofthe week. Cognition: Cognitive impairments at baseline Therapeutic Interventions: BED MOBILITY: SIT<>SUPINE - Assist Level: moderate assist, x 2 - Device: bed rail, head of bed elevated, bed height elevated - Therapist Delivery: assessed, assisted, instructed - Assist/Cues Provided: verbal and manual for trunk support, lower extremity support, upper extremity support, assistance for thoroughness, proper body mechanics FUNCTIONAL TRANSFERS: SIT<>STAND - Assist Level: moderate assist, x 2 - Device: front wheeled walker and gait belt - Surface: bed - Therapist Delivery: assessed, assisted - Assist/Cues Provided: verbal and manual for anterior weight shift, use of momentum, balance, upright posture, alignment with seated surface, adherence to weight bearing precautions - # of reps: 2 Patient required maximal assist once standing from therapist on left side to maintain adherence to weight-bearing precautions/balance. ACTIVITIES OF DAILY LIVING: GROOMING - Assist Level: supervision/set-up - Patient Location: seated on edge of bed - Activity: combing hair, washing face - Therapist Delivery: assessed - Assist/Cues Provided: none for none Team Communication: The patient's status was discussed and coordination of care occurred with RN, PT, Family/Caregiver Family/Caregiver Present: Patient's sister Patient was left in bed at end of session with call light [...] Assistance with showering/bathing Barriers to Discharge Home: Current functional status Clinical Impression: Currently, patient presents with impairments including pain, debility, weight bearing precautions, impaired balance, impaired range of motion, and cognitive deficits resulting in functional deficits including impaired functional mobility and decreased independence with self care tasks. Patient was agreeable to cotreatment session with both physical and occupational therapy in the room. Patient displays significant right-sided weakness as a result of previous stroke, but patient's left side is within functional limits. Patient was able to assist with transfers moderately but required maximal assist to maintain most of his body weight on his (unaffected) right lower extremity while standing. Luke manzano did not demonstrate unilateral neglect when engaging in grooming tasks or when asked to visually scan room for items on both side of his body. Patient was pleasant throughout session but did require extra motivation at times to engage in session. The patient will benefit from ongoing occupational therapy services while hospitalized in order to improve engagement and independence in meaningful occupations. Plan OT Plan Comments: Improve patient's static standing balance with new weight- bearing status, train in pivot transfer to patient's wheelchair Functional Goals: OT Goal #1: Patient will teachback weight-bearing status accurately 3/3 times to demonstrate understanding. OT Goal #1 Status: Progressing OT Goal #2: Patient will require moderate assist x2 to maintain static standing balance. OT Goal #2 Status: Ongoing OT Goal #3: Patient will require moderate assist x2 to successfully complete pivot transfer from bed to wheelchair prior to discharge. Progress: Improving as expected Rehab potential: Mr. Lester has fair potential to achieve established occupational therapy goals within the time frame outlined below. OT Frequency: OT Amount: 1 visit per day OT Frequency: 5 times per week OT Inpatient Duration : Until goals are met or hospital discharge Requires Inpatient OT Follow-Up: Yes OT - Next Inpatient Appointment: 01/09/24 Plan: Plan of care initiated Treatment interventions may include: Treatment Interventions: Therapeutic exercise, Therapeutic functional activity, Self-care/home management, Neuromuscular re-education, Orthosis [id number], Manual therapy Occupational Therapy Attestation Statement: Patient agrees with the plan of care and goals. Billing: Tiered OT Evaluation Codes: Comorbid Conditions: Cerebrovascular accident, Diabetes Personal Factors: Sedentary lifestyle, Motivation level, Body habitus Occupational Profile and History review: Expanded Performance Deficits: at least 5 performance deficits Evaluation Complexity: Moderate Time Spent with Patient Evaluations OT Eval - Mod Complexity: 7 min Therapeutic Interventions Home Management Training (min): 25 min Time Tracking Total Timed Units (min): 25 min Total Treatment Time (min): 32 min [place] [employer] Cosigned by Olga Lidia Lara O.T., O.T.D. at 01/08/2024 8:07 PM INSULATION BOARD COATER OPERATOR LATION BOARD COATER OPERATOR LATION BOARD COATER OPERATOR Associated attestation - Olga Lidia Lara O.T., O.T.D. - 01/08/2024 8:07 PM INSULATION BOARD COATER OPERATOR This therapist has reviewed all documentation and supervised today???s session. The therapist agrees with the plan developed in collaboration with the patient. * Sarina Suresh D.T.R. - 01/08/2024 1:32 PM CSTAssociated Order(s): IP CONSULT TO DIETITIAN; IP CONSULT TO DIETITIAN Clinical Nutrition: Initial Assessment RECOMMENDATIONS REQUIRING MD/PROVIDER ORDER Therapeutic multivitamin with minerals daily to support skin integrity/wound healing for stage 2 pressure injury. For questions about patient's nutritional care please contact pager [phone] on weekdays or weekends/holidays. NUTRITION ASSESSMENT: Mr. Lester is a 59 y.o. male who was admitted for Status post right ISRRAEL revision. Histor of History of osteoarthritis, ISRRAEL with infection and subsequent spacer placement, CVA with residual right-sided weakness, peripheral arterial disease, diabetes mellitus type 2, and hypertension. Completed visit with family today as part of face to face care. Requested to see patient for evaluation of: assessment of nutritional status, pressure injury consult, and nutrition education/counseling. Current Diet Order: Adult Diet Regular Current Nutrition (since admission): Patient is eating 100% of meals on a regular diet. Nutrition education/counseling: Encouraged increased protein to aid in wound healing. Offered high protein ONS- patient 's sister agreed to adding Premier Protein on his supper tray. ANTHROPOMETRICS: Height: 181 cm Admission Weight: 91 kg (01/06/2024) Current Weight: 91 kg Weight change since admission: 0 kg ESTIMATED NEEDS: Total Calorie Needs: 1800 - 2300 calories/day Method to Estimate Energy Needs: kcal/kg (20 - 25 kcal/kg ) Weight Used for Equation Calculations: 91 kg Total Protein Needs: 91 - 109 grams/day Method to Estimate Protein Needs (g/kg): 1 - 1.2 gm/kg Weight Used to Calculate Protein Needs (Kg): 91 kg Nutrition Diagnosis: Increased nutrient needs related to wound healing as evidenced by stage 2 pressure injury on coccyx Nutrition Intervention: Increase nutrient intake with small, frequent meals and/or snacks, Medical food supplement, Vitaminand mineral supplements, Provide counseling strategies to apply nutrition knowledge, Collaboration and referral of nutrition care Monitoring/Evaluation: Nutrition parameter to monitor: Meals/Supplement Intake, Skin Integrity, Wound Healing, Weight Status, Pertinent Labs, Chewing/Swallowing LATION BOARD COATER OPERATOR * Gino Mclain P.T., D.P.TBelkis - 01/07/2024 1:48 PM CST Physical Therapy Inpatient Evaluation/Treatment SUBJECTIVE Patient's Name: Estevan White Trevon Referring/Attending Provider: Vel Vinson M.D. Medical Diagnosis: Infection Total Hip Arthroplasty Subsequent Right [T84.51XD] Aftercare Following Explantation Of Hip Joint Prosthesis [Z47.32] Reason for Referral: PT Evaluate and Treat PT ortho eval and treat-hip Onset Date: 01/06/24 Payor: [facility] / Plan: [facility] CARE / Product Type: Medicaid [...] Aftercare Following Explantation Of Hip Joint Prosthesis Past Surgical History: Procedure Laterality Date ARTHROPLASTY - RESECTION HIP Right 05/23/2023 Procedure: ARTHROPLASTY RESECTION HIP.; Surgeon: Vel Vinson M.D., M.B.A.; Location: [facility] OR ARTHROPLASTY REVISION FEM+ACETAB HIP Right 01/06/2024 Procedure: ARTHROPLASTY REVISION FEMORAL PLUS ACETABULAR HIP.; Surgeon: Vel Vinson M.D., M.B.A.; Location: [facility] OR CAROTID ARTERY ANGIOPLASTY CLOSED REDUCTION OF DISLOCATION OF HIP 03/25/2009 CLOSED REDUCTION OF DISLOCATION OF HIP 03/06/2009 CLOSED REDUCTION RADIAL SHAFT FRACTURE W/ MANIPULATION 12/31/2003 FLAP PEDICLE ROTATIONAL LOWER EXTREMITY Right 05/23/2023 Procedure: FLAP PEDICLE ROTATIONAL LOWER EXTREMITY, possible VRAM falp from right abdomen, possiblelocal tissue rearrangement, possible wound vac placement, proceed as indicated.; Surgeon: Mike Cheng M.D.; Location: [facility] OR JOINT REPLACEMENT OTHER CONVERTED SHX (SEE [...] PELVIS.; Surgeon: Vel Vinson M.D., M.B.A.; Location: [facility] OR History of Present Illness: Status post right ISRRAEL revision performed on 01/06/[address] Vel Vinson. History of osteoarthritis, ISRRAEL with infection and subsequent spacer placement, CVA with residual right-sided weakness, peripheral arterial disease, diabetes mellitus type 2, and hypertension. Prior Function/Occupational Profile Lives With: Other (Comment) (Has been staying at a shelter facility for roughly 7 months) Receives Help From: Facility staff ADL Assistance: Required assistance IADL/Homemaking Assistance: Required assistance Driving: Does not drive Prior Mobility/Functional Transfers Level of [place]: Needs assistance Gait Devices/Wheelchair Used: Manual wheelchair, Front wheeled walker Gait Devices/Wheelchair Used Comments: Utilize a front wheeled walker to pivot to and from wheelchair Home Equipment Bathroom Equipment: Grab bars in shower, Shower chair with back, Grab bars around toilet, Built-in shower seat Home Living Type of Home: senior living facility Home Layout: One level, Able to live on main level with bedroom/bathroom Home Access: Elevator, Ramped entrance Bathroom Shower/Tub: Walk-in shower Walk-in shower location: Main floor Bathroom Toilet: Comfort height Bathroom Accessibility: Yes How Accessible: Accessible via wheelchair, Accessible via walker Family/Caregiver Present: Yes (Sister) Patient Comments: Patient presents lying in bed upon PT arrival. He currently rates his pain at 9 to 10/10. He is fairly reluctant to work with therapy but following education on the importance of physical therapy in the plan to help work on his strength and endurance he is agreeable to a session at this time. Precautions Weight Bearing Status: Toe-touch weight-bearing right lower extremity Other Precautions: Right hip abduction brace at all times, right hemiparesis, fall risk OBJECTIVE Estevan's NOHARM modalities were not used during their therapy session. Vitals not formally assessed during session. No concerns during chart review and the patient had nosigns or symptoms consistent with vital changes during therapy session. General ROM / Strength Screening ROM - Lower Extremity Screen: Impaired right ROM - Lower Extremity Screen Comments: Not formally assessed due to surgical precautions. Impairments consistent with surgical procedure. Strength - Lower Extremity Screen: Impaired right Strength - Lower Extremity Screen Comments: Not formally assessed due to surgical precautions. Impairments consistent with surgical procedure. Bed Mobility - Supine to Sit # of Assistants: 2 Level of Assistance: Moderate assistance Device: Bed rail, Other (Trapeze) Cuing: Verbal, Tactile Comments: Patient was provided with both verbal and tactile cues to utilize a pivoting technique onhis bottom to achieve sitting edge of bed. Physical therapist instructed patient to utilize trapezebar and bed rail as needed to help pull himself into sitting and moderate assistance of 2 was required with physical therapist assisting in bilateral lower extremities and hips and nursing staff providing assistance at the trunk. Upon sitting patient was able to remain upright with supervision level assistance. All precautions were maintained. Bed Mobility - Sit to Supine # of Assistants: 2 Level of Assistance: Moderate assistance Device: Bed rail Cuing: Verbal Comments: Patient demonstrated good command of sit to supine transfer and required only minimal cuing to continue utilizing bed rail to assist in transfer. He otherwise did well utilizing a pivoting technique without cuing and continued to require moderate assistance of 2 with physical therapist providing assistance at legs and hips and nursing staff providing assistance at the trunk. All precautions were maintained. Bed Mobility - Scooting # of Assistants: 2 Level of Assistance: Total assistance Device: Other (Draw sheet) Comments: Total assistance of 2 with use of draw sheet was utilized to scoot patient towards head of bed. Education provided this session: Patient was educated on role of physical therapy in the acute caresetting. Patient was educated on benefits of mobility and detriments of only lying in bed includingdecreased strength and endurance. The following coordination of care occurred today: Patient's nurse was contacted and patient's status was discussed, Discussed patient's care with OT Patient was left in bed at end of session with call light in reach, all needs met and questions answered. Outcome Measures -[facility] Inpatient Short Form: AM-PAC Basic Mobility (V.2) [...] Climbing 3-5 steps with a railing?: Total -PAC Basic Mobility (V.2) Raw Score: 7 AM-[facility] Basic Mobility (V.2) Standardized Score: 19.39 Interpretation: Clinicians answer the -[facility] Inpatient Short Form based on observed [...] bed mobility, Assistance with stairs, Physical assistance needed Equipment Recommended - PT: Front-wheeled walker Barriers to Discharge Home: Current functional status, Fall risk, Safety concerns Clinical Impression of today's session: Patient is a 59-year-old male presenting status post right ISRRAEL revision performed on 01/06/[address] Vel Vinson. He demonstrates decreased right lower extremity strength/range of motion, pain, and activity intolerance secondary to surgery as well as residual right-sided weakness and cognitive de ficits secondary to a stroke suffered earlier this year. These impairments are limiting his abilityto complete transfers and functional mobility tasks, perform his usual self care routine, and fulfill his typical household duties without restriction or assistance. Patient tolerated today's sessionmoderately well and was able to complete bed mobility despite significant pain. He noted slight symp manpreet improvement as he said at edge of bed for an extended period of time. Patient responded best toshort, simple cues. Patient will continue to benefit from skilled physical therapy to address his impairments and limitations to help facilitate discharge. Patient is amenable to PT plan of care. Rehab potential: Mr. Lester has Fair potential to achieve established physical therapy goals within the time frame outlined below. Progress: Progressing toward goals Tiered PT Evaluation Codes: Comorbid Conditions: Arthritis, Cerebrovascular accident, Diabetes Personal Factors: Needs assistive device, Safety awareness, Balance impairment, Communication deficit Examination elements: 4+ Clinical Presentation: Evolving Clinical Decision Making: Moderate complexity clinical decision making Functional Goals: PT Inpatient Goals PT Goal #1: Patient will perform all bed mobility per home set up with moderate assistance of 1 to improve functional independence. PT Goal #1 Status: Progressing PT Goal #2: Patient will perform [id number] transfer with least restrictive device with moderate assistance of 1 to rise from a chair. PT Goal #2 Status: Ongoing PT Goal #3: Patient will complete stand pivot transfer with moderate assistance of 1 with least restrictive device to transfer to and from his wheelchair. PT Goal #3 Status: Ongoing Plan Patient agrees with the plan of care and goals. Treatment Plan: Plan: Plan of care initiated PT Amount: Other (comment) (1-2 sessions per day as needed) PT Frequency: 7 times per week PT Inpatient Duration : Until goals are met or hospital discharge Requires Inpatient Follow-Up: Yes PT - Next Inpatient Appointment: 01/08/24 PT Plan Comments: Additional bed mobility practice per home set up, initiate functional transfers and stand pivot transfers, review home exercises, patient education on activity progression. Treatment interventions may include: Treatment/Interventions: Therapeutic exercise, Therapeutic functional activity, Neuromuscular re-education, Therapeutic modalities as needed Billing: Time Spent with Patient Evaluations PT Eval - Mod Complexity: 8 min Therapeutic Interventions Therapeutic Activity (min): 18 min Time Tracking Total Timed Units (min): 18 min Total Treatment Time (min): 26 min Gino Mclain P.T., D.P.T. LATION BOARD COATER OPERATOR * Annamaria Medellin R.N. - 01/07/2024 1:02 PM CSTAssociated Order(s): IP CONSULT TO CARE MANAGEMENT; IP CONSULT TO CARE MANAGEMENT; IP CONSULT TO CARE MANAGEMENT Discharge Planning Assessment SUBJECTIVE Assessment Information Referral Source: Early Screen for Discharge Planning Referral Reason: Discharge Planning Previous assessment done on: 12/08/23 Previous assessment done by: Julianne Rodrigez RN, CM Primary Language: Citizen Of [place] Person(s) present during interview: Person(s) Present During Interview: sibling, Lor History of Present Illness #1 Infection Total Hip Arthroplasty Subsequent Right #2 Aftercare Following Explantation Of Hip Joint Prosthesis Social History Support System: family members Primary Caregiver: facility staff Finance/Insurance Primary insurance: [employer] Secondary insurance: N/A benefits: No Advance Directives Legal Decision Maker: Self Advance Directives: N/A Advance Directives Status: N/A OBJECTIVE Baseline Functional Status Baseline Activities of Daily Living Mobility: Requires lifting device Dressing: Dependent Feeding: Independent Bathing: Dependent Grooming: Dependent Toileting: Dependent Behavior: Appropriate, Pleasant, Calm, Cooperative, Oriented Communication: Talks, Understands speaking, Understands Citizen [place] Shopping: Dependent Medication Management: Needs assistance Who is managing your medication at home?: Other (Comment) (SNF facility staff) Housekeeping: Dependent Meal Prep: Needs assistance Assistive Devices: Wheelchair - manual, Lift device Baseline Services/Resources Primary care clinic and provider: [facility] Role and Specialty Contact William Morris M.D. Referring Provider (Family Medicine) Additional Resources: N/A Anticipated Needs Functional Status: Bathing, Dressing, Grooming/hygeine, Toileting, Mobility, Meal preparation, Medication set-up/administration, Housekeeping, Shopping, Transportation use (drive car, use taxi/bus) Assistive Devices: None Anticipated Modifications to the Patient's Home: None Transportation Needs: Stretcher van Does the patient need discharge transport arranged?: Yes Has discharge transport been arranged?: No Transport Provided By: [employer] [facility] Anticipated Discharge Destination: Jail Facility ASSESSMENT / PLAN Assessment: The family support coordinator met with Estevan Lester to discuss his current hospitalization and home going needs. The patient was accompanied by sister, Lor . The patient was was unable to participate so therefore the family support coordinator discussed patient's history, current hospitalization, and discharge planning needs with his sister, Lor. The role of family support coordinator was reviewed. The patient's sister reviewed his prior level of care and support system. The patient receives support from his siblings . The patient's sister described his living environment as a shelter facility with level entry. Housekeeping, grocery shopping, meal prep, and other household responsibilities have previously been completed by facility staff . family support coordinator discussed the patient's potential needs at dismissal based on their home setting, previous needs and responsibilities, homebound status, and relevant assessments with the patient's sister . The patient will be safe and supported to return to a [facility] when medically ready. Support will be provided by his sister, Lor, and facility staff. The patient's sister demonstrated understanding when discussing his home going plans andanticipated needs. The Nurse Service Engine Repairer met with the patient to address the consult to Care Management. Assessment questions were completed with the patient's sister, Lor. She does have an MASSIEL on file. From chart review, it appears she is the patient's primary contact and co-legal guardian effective 09/05/23. Sheconfirmed that the patient resides at [facility] and he has apaid bedhold. She has been working with [facility] social professionals, Tri Mckeon ([facility]). Lor verbalized agreement with her brother returning to the facility when he is medically ready to discharge and asked that discharge transportation is arranged with [employer] when a discharge d ate is known. At this time, the care team anticipates the patient requires the following service(s) to be reconnected: shelter facility. The patient's sister identified the following as their current vendor(s): [employer] [facility]. After reviewing the patient's chart and meeting with the patient's sister, the family support coordinator deemed the LACE+/readmission questions were not necessary. The patient's sister reports understanding that he will dismiss from the hospital when medically stable. Pending hospital course and medical readiness, no barriers to dismissal have been identified at this time. Plan: The patient's sister agrees with the following plan. Patient's anticipated discharge disposition is: Jail Facility Reconnected: Completed Patient to return to: Destination - Admitted Since 01/06/2024 Service Provider Services Address Phone Fax Patient Preferred [facility] [address] [id number] -- Contact: Nursing Patient has a paid bedhold. Facility can manage IV antibiotics if the patient has a PICC line. Facility can manage a wound vac. Facility preferred wound vac type: case by case Facility prefers patient return by 12:00 PM . Facility cannot accept weekend readmissions. COVID screening needed before patient can return: no Facility oxygen provider is [facility] [employer] (phone [phone], fax [phone]) . Was the patient on oxygen at your facility: no Transportation to be provided by stretcher van transport. Service Engine Repairer : to arrange transportation and transport oxygen if needed. Patient prefers to use [employer]. Patient DOES have transportation benefits with [facility] for hospital discharge. What care was the patient receiving? Total assist for all ADLs - dressing, grooming, bathing, toileting, meals provided, nelda lift for transfers. How was the patient's snf stay being paid for? Private Any concerns with payment? None NURSING: Complete documentation in the Discharge Navigator [...] infection precautions and phone numbers to call. Service Engine Repairer : Reviewed patient's insurance coverage for the services noted above. The patient's sister appear(s) to have an understanding of this. Will continue to follow and assist if needs arise. Transportation upon dismissal will be provided by [employer]. When a discharge date is known Care Management will arrange transportation . family support coordinator recommended nothing at this time . family support coordinator provided Care Management Brochure ([id number]) and information regarding the dismissal process. family support coordinator placed or requested the following hospital-based consult orders and/or referrals: None. family support coordinator encouraged the patient to reach out with any questions/concerns. 7. family support coordinator will continue to assess for homegoing needs with the interdisciplinary team. Signed by: Annamaria Medellin R.N. 01/07/2024 LATION BOARD COATER OPERATOR LATION BOARD COATER OPERATOR * Albert Lay, JUAN RAMON, C.N.P., D.N.P. - 01/07/2024 10:07 AM INSULATION BOARD COATER OPERATOR Associated Order(s): Diabetes consult (hospital) SUBJECTIVE Diabetes consult (hospital) Referring Provider: Trae Coffey M.D. CHIEF COMPLAINT/REASON FOR CONSULT Patient seen today for blood glucose management. The patient was admitted on 01/06/2024 for Infection Total Hip Arthroplasty Subsequent Right HISTORY OF PRESENT ILLNESS DIABETES HISTORY: History of diabetes mellitus, type 2 Diagnosed approximately 5-10 years ago. PREADMISSION DIABETES THERAPY: NPH 8 units in the morning and 4 units in the evening. GLUCOSE MONITORING: Patient has his blood glucose checked twice daily by staff at [facility]. Patient states his blood glucosetrends remain within 80-140 mg/dL. HYPOGLYCEMIA: Patient denies episodes of hypoglycemia. DIABETES COMPLICATIONS/CO-MORBIDITIES: Peripheral neuropathy, diabetic foot ulcers, hypertension, hyperlipidemia, obstructive sleep apnea,bilateral ICA stenosis status post angioplasty, stenting, mechanical thrombectomy, acute ischemic stroke, right carotid artery occlusion status post carotid stenting 2022 and angioplasty 2023, COPD, p eripheral artery disease. DIET: Eats 3 meals a day. Rarely snacks. ACTIVITY: Works with physical and occupational therapy 3-4 times per week within the facility he is residing in. SCREENING: Last dilated eye exam November 06, 2022. No retinopathy noted on examination. FAMILY HISTORY Reports strong family history for diabetes mellitus. HOSPITAL COURSE: Past 24 Hour Blood Glucose Readings: Recent Labs 01/07/24 0748 01/07/24 0335 01/07/24 0255 01/06/24 2138 01/06/24 1531 01/06/24 1305 01/06/24 1104 GLUCOSEPOC 158 H -- 190 H 231 H 197 H -- 98 GLUCOSE -- 175 H -- -- -- 247 H -- Yesterday received NovoLog 13 units total for the correction of hyperglycemia. STEROIDS: Dexamethasone 4 mg in OR 01/06/2024, and dexamethasone 8 mg this morning. Current Diet Adult Diet Regular starting at 01/05 1649 REVIEW OF SYSTEMS Pertinent items are noted in History of Present Illness. PREADMISSION MEDICATION: Diabetes medication(s) were reconciled on 01/07/2024. OBJECTIVE VITAL SIGNS Temperature: 36.7 ??C Heart Rate: 71 Resp Rate: 12 Blood Pressure: 124/62 BP Location: Left arm;Upper Arterial Line BP: 106/66 SpO2: 93 % Flow Rate (L/min): 0 L/min Height: 181 cm (verbal from sister) Weight: 91 kg (verbal from sister) Body mass index is 27.78 kg/m??. PHYSICAL EXAMINATION HENT Head: Normocephalic and atraumatic. Pulmonary Effort: Pulmonary effort is normal. Skin General: Skin is dry. Neurological Mental Status: He is alert and oriented to person, place, and time. Psychiatric Mood and Affect: Mood normal. DIAGNOSTICS I have reviewed relevant diagnostics and labs. Lab Results Component Value Date HGBA1C 5.1 01/07/2024 Estimated Creatinine Clearance: 78.8 mL/min (by C-G formula based on SCr of 1.3 mg/dL). Lab Results Component Value Date CREATININE 1.30 01/07/2024 ASSESSMENT / PLAN #1 Diabetes mellitus, type 2, preadmission euglycemia, A1c 5.1% complicated by diabetic neuropathy #2 Hyperglycemia in the setting of steroids and surgical stress #3 Peripheral artery disease #4 History stroke INPATIENT PLAN: - Blood Glucose Monitoring: four times daily before meals and bedtime - Glucose Goal: 140-180 mg/dL. - Basal: No basal insulin. - Mealtime: NovoLog 1 unit for every 15 grams of carbohydrates consumed with meals. - Correction Scale: NovoLog moderate correction scale three times a day and modified bedtime correction scale - DCS will evaluate and adjust insulin doses as indicated to achieve glycemic goal. - Consults: None ANTICIPATED DISMISSAL PLAN: Preadmission therapy pending any contraindications. Blood Glucose Frequency: twice daily Goal: 100-140 mg/dL Please page DCS within 24 hours prior to hospital dismissal for final dismissal recommendations. Discussed above plan with the patient and patient's family. Patient is alert and oriented and in agreement with the plan. Thank you for the consult. DCS pager [facility] [phone] will follow. Call primary service for diabetes concerns between 6:30 p.m. and 6:30 a.m. Primary service to contact manager secondary Endocrinology fellow via hospital profile saw setup operator for questions. LATION BOARD COATER OPERATOR documented in this encounter Nursing Notes * Elsie Grady R.N. - 01/09/2024 10:06 AM CST Problem: PAIN - ADULT Goal: PT VERBALIZES/DEMONSTRATES [...] remain intact Outcome: Adequate for Discharge Problem: SAFETY ADULT Goal: Maintain a safe environment Outcome: Adequate for Discharge Problem: DISCHARGE PLANNING Goal: Patient discharge needs identified Outcome: Adequate for Discharge Problem: SAFETY ADULT - RISK FOR FALL AND OR FALL INJURY Goal: Patient remains free from fall/fall injury Outcome: Adequate for Discharge Problem: POTENTIAL OR [...] Optimize ADL status Outcome: Adequate for Discharge VSS and pain managed. Patient and sister given a copy of the AVS and discharge teaching was complete. AVS for facility was given to sister. Patient was escorted off the unit with [facility] stretchers transport service. Paper scripts sent with sister. Patient discharged. Elsie Grady R.N. LATION BOARD COATER OPERATOR LATION BOARD COATER OPERATOR documented in this encounter OR Notes * Op Note - Vel Vinson M.D., M.B.A. 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 A certified surgical first assistant actively participated and was necessary for one or more of the following: Opening, exposure and visualization during the case, maintaining hemostasis, wound closure resulting in itssafe and expeditious completion. PROCEDURE: Explant of right hip articular antibiotic spacer. Right hip irrigation and debridement. Revision right total hip arthroplasty, including both femoral and acetabular components with imageless computer navigation. INDICATION: Mr. Lester is a very pleasant 59-year-old male with history of a chronic periprosthetic joint infection of his right hip. 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 We back in May explanted his hip along with removed hip prior hardware and placed an articular antibiotic spacer along with an extended trochanteric osteotomy. Unfortunately, he had multiple medical complications postoperatively. He has completed his course of antibiotics and now has been recovering from hisstroke that he had. He is now indicated for reimplantation. Risks of surgery, including, dislocation, fracture, injury to nearby neurovascular structures, medical complications, fracture, need for fut ure procedures, wound healing complications, infection were all discussed preoperatively. The patient stated he understood and elected to proceed. OPERATIVE NOTE NARRATIVE Patient was met in preoperative holding area, where the correct surgical site and procedure were confirmed. He was taken back to the operating room and placed supine on the operating room table. Anesthesia was established. After anesthesia was established he was placed in the lateral decubitus position. All bony prominences were padded. Prophylactic antibiotic, tranexamic acid were given. He was then prepped and draped in the usual sterile fashion. His previous curvilinear and lateral incision was utilized. We went through the subcutaneous tissuedown to the fascia. The fascia was then split in line with the gluteus rodri fibers. The fascia was then elevated off the vastus lateralis. We then noticed that he had no posterior capsule that wasreally intact. We were able to easily visualize the joint. The hip was then safely dislocated. The femoral head was removed. We then turned our attention to the femoral component, and with ease we were able to remove the Prostalac component. It was noted at this time that his intertrochanteric osteotomy had not completely healed. We then turned our attention to the acetabular component. We then exposed the acetabulum. A partial capsulectomy was performed. We then easily removed the Prostalac socket without difficulty as well as all prior cement. At this time, we performed a healthy debridement to healthy bleeding tissue. We obtained 3 cultures as well as 1 frozen specimen that came back neg ative for acute inflammation. There was no evidence of gross infection intraoperatively. We then irrigated the wound with 1 L. We then soaked the wound with dilute Betadine for 3 minutes. We then irrigated again with another 2 L. We then applied periarticular injection. We then turned our attention to the acetabulum. We then reamed up to a 61 mm. There was excellent press-fit. With the computer navigation, we had confirmed that the reamer had excellent anteversion and abduction. We then placed the real size 60-mm G7 acetabular shell. This was then further secured with 4 bone screws. Again, computer navigation was reasonable and necessary to confirm appropriate position of the acetabular component, including abduction and anteversion. We then placed the real dual-mobility liner. We confirmed the locking mechanism was engaged. We then turned our attention back to the femoral component. Again, given that extended trochantericosteotomy was not completely healed, we then re-exposed this. We then safely reamed for the XPRT stem up to 24 mm for a 210 stem. We then placed the 85-mm lateral proximal body in the appropriate anteversion. We then opened up the real stem and made sure it had excellent axial rotational stability. Prior to inserting this and prior to reaming we did place a prophylactic cable just distal to the prior extended trochanteric osteotomy. We then inserted the stem with the anterior relief. We did notice when inserting the stem that there was a nondisplaced crack just distal to the most distal extent of the extended trochanteric osteotomy. This was well reduced. It was well secured with the cable. We then placed the 85-mm proximal body in the appropriate anteversion. We then trialed with the +7, 28-mm head and the outer diameter 50-mm head. The hip was then reduced. The hip was stable in extension, external rotation, position of sleep, deep flexion, and flexion to 90 degrees neutral abduction, as well as internal rotation to 80 degrees. We then safely dislocated this. We then placed the real 85 proximal body after removing the proximal body trial in the same anteversion. We then used a locking screw and confirmed this was engaged. Template Cutter was then utilized. We then assembled the real dual-mobility head bearing with a 28 +7-mm head that was press-fit into the outer 50-mm highly cross-linked polyethylene liner head. This dual mobility head construct was then press-fit onto a clean, dry trunnion. Again, hip was then reduced. During reduction of the hip we did notice that there was a crack of the posterior aspect of his trochanteric osteotomy. This was then secured and anatomically reduced with cables along with the lateral trochanteric osteotomy piece. An additional 3 cables were utilized. These were well secured. We then irrigated again. We closed the subvastus with a #1 Vicryl suture. The capsule was closed asbest possible with #1 Vicryl sutures and #5 Ethibond sutures. The tibia was then closed with #1 Vicryl sutures and oversewn with multiple #1 running Stratafix sutures. The adipose layer was closed with 0 Stratafix sutures followed by 2-0 Monocryl for the subcutaneous later and 2-0 nylon sutures forthe skin. A sterile wound VAC was then applied. There were no immediate complications. POSTOPERATIVE PLAN: The patient will remain toe-touch weightbearing. He will be able to transfer only. Patient will remain in his hip abduction brace. He will be in this for at least 3 months. The patient will remain on oral antibiotics as directed by ID. Will follow up his intraoperative cultures. He go on Lovenox as directed by Vascular and then transition to Xarelto. Patient will follow up at 4 weeks postoperatively for a wound check. TPR: 3, Exposure, removal of prior components, debridement, preparation of bone, placement of trialcomponents, placement of final components, fascial closure Vel Vinson M.D. CT CT Job ID: [id number] LATION BOARD COATER OPERATOR documented in this encounter Miscellaneous Notes * Documentation Clarification - Trae Coffey M.D. - 01/09/2024 10:06 AM INSULATION BOARD COATER OPERATOR PROVIDER RESPONSE TEXT: To clarify, the appropriate diagnosis supported by the clinical indicators: Pressure Injury Stage 2 Coccyx, POA. QUERY TEXT: Clarification DOCUMENTATION CLARIFICATION REQUEST Please clarify/specify the appropriate diagnosis supported in the clinical indicators below. Clinical Indicators/Risk Factors/Treatment: (01/05) Op Note 59-year-old male with history of a chronic periprosthetic joint infection of his right hip. 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 S/P Revision right total hip arthroplasty, including both femoral and acetabular components with imageless computer navigation. (Karel) - Clinician Notes: ((01/06) Wound Care Assessment He has been treated with zinc, nystatin, and hydrocortisone cream in the past for the caroline rectal and coccyx area injuries. The wound present appears to be a partial thickness stage 2 pressure injury with moisture component. (Anthony Luis) (01/06) Wound Assessment for recommendations for wound to coccyx noted present on admission. Wound 01/07/24 Pressure Injury Stage 2 Coccyx Medial Date First Assessed: 01/07/24 Present on Original Admission: Yes Primary Wound Type: Pressure Injury Pressure Injury Staging: Stage 2 Location: Coccyx Wound Location Orientation: Medial Date Wound Image Taken 01/07/24 *Shape Round / oval *Wound Length (cm) 0.6 cm *Wound Width (cm) 0.3 cm *Wound Depth (cm) 0.1 cm Wound Surface Area 0.18 cm^2 *Signs of Infection None *Wound Bed Open;Partial thickness;[place] Tissue Exposed None Odor None *Exudate Amount None Caroline-wound Assessment Blanchable erythema;Painful;[place] Treatments Cleansed;Site care Periwound Treatment Cleansed (Comment);Liquid skin protectant Wound Cleansed with Normal saline *Primary Dressing Wound gel (Plurogel) *Primary Dressing Frequency of Change Daily & PRN (JAZIEL Garcia- WOC) - Treatment: Wound Assessment , documentation and cleaning recommendations Options provided: -- Pressure Injury Stage 2 Coccyx, POA. -- Other - I will add my own diagnosis -- Disagree - Clinically unable to determine / Unknown -- Refer to Clinical Documentation Reviewer Query created by: Rell Bess on 01/13/2024 5:06 PM Electronically signed by: Trae Coffey M.D. 01/21/2024 9:43 AM LATION BOARD COATER OPERATOR * Documentation Clarification - Trae Coffey M.D. - 01/09/2024 10:06 AM INSULATION BOARD COATER OPERATOR PROVIDER RESPONSE TEXT: To clarify, the appropriate diagnosis supported by the clinical indicators: Acute blood loss anemia QUERY TEXT: Clarification DOCUMENTATION CLARIFICATION REQUEST Please clarify/specify the appropriate diagnosis supported in the clinical indicators below. Clinical Indicators/Risk Factors/Treatment: (01/05) Op Note 59-year-old male with history of a chronic periprosthetic joint infection of his right hip. 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 S/P Revision right total hip arthroplasty, including both femoral and acetabular components with imageless computer navigation. (Karel) - LABS: ( 01/04) HGB 10.2 (01/06) HGB 6.8 , 8.2 ( 01/07) HGB 7.7 ( 01/08) HGB 7.9 - Clinician Notes: (01/05) Op Notes Estimated blood loss 900 mL. (Karel) (01/05) MD Order Transfuse Red Blood Cells 1 Units. (Zabrina) (01/06) Ortho PN Status post hip reimplantation yesterday 01/06/2024. Progressing appropriately. Will receive 2u pRBC this morning for Hgb 6.8. (Alexx) 01/06) MD Order Transfuse Red Blood Cells 2 Units. . (Alexx) (01/07) MD Order CBC with Differential, Blood. (Alexx) - Treatment: Serial CBC monitoring Transfuse 2 units PRBC Options provided: -- Acute blood loss anemia -- Other - I will add my own diagnosis -- Disagree - Clinically unable to determine / Unknown -- Refer to Clinical Documentation Reviewer Query created by: Rell Bess on 01/13/2024 4:34 PM Electronically signed by: Trae Coffey M.D. 01/21/2024 9:43 AM LATION BOARD COATER OPERATOR * Hospital Course - Trae Coffey M.D. - 01/08/2024 6:54 AM CST Surgery Information This Encounter Past Procedures (01/08/2023 to Today) Date Procedures Providers Loc / Dept 01/06/2024 ARTHROPLASTY REVISION FEMORAL PLUS ACETABULAR HIP. Vel Vinson M.D., M.B.A.Trae Coffey M.D.Brittney Piña MPAS P.Yun.Brittney. [facility] OR Estevan Christopher Lester was taken to the operative room by Jesus Rolon for the procedure listed above. The intraoperative as well as the immediate postoperative course were uncomplicated. For further details of the surgery please see the operative note. The patient was transferred from the PACU to the general care floor for continued observation and monitoring. He progressed in the usual post-operative fashion without complications. The patient was treated with perioperative IV antibiotics. He was given liquids by mouth and eventually advanced as tolerated towards a more general diet. His pain was well controlled with oral pain medications. Physical therapy / Occupational therapy was consulted for assistance with mobilization and gait training. He was mobilizing without difficulty and was compliant with any activity restrictions. His incision remainedintact with no concerns. His bowel and bladder function were acceptable. He then met criteria for discharge and was later dismissed from the hospital. For any further details please see the most recent orthopedic surgery progress note and any other co-managing teams dated 01/08/2024. LATION BOARD COATER OPERATOR documented in this encounter Plan of Treatment Upcoming Encounters Date Type Department Care Team (Latest Contact Info) Description 01/27/2024 12:30 PM INSULATION BOARD COATER OPERATOR Appointment Department of Orthopedic Surgery in [place], [place] [address] [place] [phone] Lizeth Joe MPAS, P.A.-C. [address] [place] [phone] Discharge Disposition: Home or Self Care 02/19/2024 1:45 PM INSULATION BOARD COATER OPERATOR Appointment Department of Radiology, [facility], in [place], [place] [address] [place] [phone] Fantasma Butt M.D. [address] [place] [phone] 02/20/2024 11:00 AM INSULATION BOARD COATER OPERATOR Virtual Visit Department of Radiology, [facility], in [place], [place] [address] [place] [phone] Radha Ojeda P.A.-C., M.S. [address] [place] [phone] 04/13/2024 2:00 PM INSULATION BOARD COATER OPERATOR Clinical Communication Virtual Review in [place], [place] [address] [place] [phone] 04/15/2024 12:00 PM INSULATION BOARD COATER OPERATOR Appointment Department of Radiology, [facility], in [place], [place] [address] [place] [phone] Brittney Piña, [place], Jose Francisco. [address] [place] [phone] 04/15/2024 1:00 PM INSULATION BOARD COATER OPERATOR Office Visit Department of Orthopedic Surgery in [place], [place] [address] [place] [phone] Vel Vinson M.D., M.B.A. [address] [place] [phone] Pending Results Name Type Priority Associated Diagnoses Date /Time Fungal Culture, Routine Microbiology Routine Infection Total Hip Arthroplasty Subsequent Right 01/06/2024 9:08 AM INSULATION BOARD COATER OPERATOR Mycobacterial Culture Microbiology Routine 1 03/07/2023 9:08 AM INSULATION BOARD COATER OPERATOR Fungal Culture, Routine Microbiology Routine Infection Total Hip Arthroplasty Subsequent Right 01/06/2024 9:28 AM INSULATION BOARD COATER OPERATOR Fungal Culture, Routine Microbiology Routine Infection Total Hip Arthroplasty Subsequent Right 01/06/2024 9:28 AM INSULATION BOARD COATER OPERATOR Mycobacterial Culture Microbiology Routine 1 03/07/2023 9:28 AM INSULATION BOARD COATER OPERATOR Mycobacterial Culture Microbiology Routine 1 03/07/2023 9:28 AM INSULATION BOARD COATER OPERATOR Prepare Red Blood Cells, 2 Units Blood Bank STAT 01/06/2024 6:30 AM INSULATION BOARD COATER OPERATOR Transfuse Red Blood Cells : , 2 Units Blood Bank Routine 01/07/2024 8:0 7 AM INSULATION BOARD COATER OPERATOR Prepare Red Blood Cells Blood Bank Routine 1 03/07/2023 6:30 AM INSULATION BOARD COATER OPERATOR Transfuse Red Blood Cells : Blood Bank Routine 01/07/2024 8:06 AM INSULATION BOARD COATER OPERATOR documented as of this encounter Procedures Procedure Name Priority Date/Time Associated Diagnosis Comments GLUCOSE POCT, B Routine 01/09/2024 8:07 AM INSULATION BOARD COATER OPERATOR HEMOGLOBIN, B STAT 01/09/2024 7:18 AM INSULATION BOARD COATER OPERATOR BASIC METABOLIC PANEL, S/P STAT 01/09/2024 7:18 AM INSULATION BOARD COATER OPERATOR GLUCOSE POCT, B Routine 01/09/2024 2:48 AM INSULATION BOARD COATER OPERATOR GLUCOSE POCT, B Routine 01/08/2024 11:26 PM INSULATION BOARD COATER OPERATOR DX CHEST PORTABLE 1 VIEW RAD - Routine (most inpatients and all outpatients) 01/08/2024 11:13 PM INSULATION BOARD COATER OPERATOR GLUCOSE POCT, B Routine 01/08/2024 9:55 PM INSULATION BOARD COATER OPERATOR GLUCOSE POCT, B Routine 01/08/2024 6:03 PM INSULATION BOARD COATER OPERATOR GLUCOSE POCT, B Routine 01/08/2024 12:33 PM INSULATION BOARD COATER OPERATOR REMOTE OXIMETRY MONITORING CONT. Routine 01/08/2024 8:01 AM INSULATION BOARD COATER OPERATOR GLUCOSE POCT, B Routine 01/08/2024 7:24 AM INSULATION BOARD COATER OPERATOR CBC WITH DIFFERENTIAL, B Routine 01/08/2024 7:21 AM INSULATION BOARD COATER OPERATOR BASIC METABOLIC PANEL, S/P Routine 01/08/2024 7:21 AM INSULATION BOARD COATER OPERATOR GLUCOSE POCT, B Routine 01/08/2024 2:54 AM INSULATION BOARD COATER OPERATOR GLUCOSE POCT, B Routine 01/07/2024 9:48 PM INSULATION BOARD COATER OPERATOR GLUCOSE POCT, B Routine 01/07/2024 6:26 PM INSULATION BOARD COATER OPERATOR HEMOGLOBIN, B Timed 01/07/2024 4:29 PM INSULATION BOARD COATER OPERATOR GLUCOSE POCT, B Routine 01/07/2024 3:10 PM INSULATION BOARD COATER OPERATOR TRANSFUSE RED BLOOD CELLS Routine 01/07/2024 9:56 AM INSULATION BOARD COATER OPERATOR TRANSFUSE RED BLOOD CELLS Routine 01/07/2024 8:06 AM INSULATION BOARD COATER OPERATOR REMOTE OXIMETRY MONITORING CONT. Routine 01/07/2024 8:01 AM INSULATION BOARD COATER OPERATOR GLUCOSE POCT, B Routine 01/07/2024 7:48 AM INSULATION BOARD COATER OPERATOR CBC WITHOUT DIFFERENTIAL, B Routine 01/07/2024 3:35 AM INSULATION BOARD COATER OPERATOR HEMOGLOBIN A1C, B Routine 01/07/2024 3:3 5 AM INSULATION BOARD COATER OPERATOR BASIC METABOLIC PANEL, S/P Routine 01/07/2024 3:35 AM INSULATION BOARD COATER OPERATOR GLUCOSE POCT, B Routine 01/07/2024 2:55 AM INSULATION BOARD COATER OPERATOR GLUCOSE POCT, B Routine 01/06/2024 9:38 PM INSULATION BOARD COATER OPERATOR REMOTE OXIMETRY MONITORING CONT. Routine 01/06/2024 8:00 PM INSULATION BOARD COATER OPERATOR REMOTE OXIMETRY MONITORING CONT. STAT 01/06/2024 8:00 PM INSULATION BOARD COATER OPERATOR REMOTE OXIMETRY MONITORING CONT. Routine 01/06/2024 4:51 PM INSULATION BOARD COATER OPERATOR REMOTE OXIMETRY MONITORING CONT. STAT 01/06/2024 4:48 PM INSULATION BOARD COATER OPERATOR GLUCOSE POCT, B Routine 01/06/2024 3:31 PM INSULATION BOARD COATER OPERATOR ADULT OXYGEN THERAPY Routine 01/06/2024 2:08 PM INSULATION BOARD COATER OPERATOR DX HIP RIGHT 2-3 VIEWS RAD - Routine (most inpatients and all outpatients) 01/06/2024 2:00 PM INSULATION BOARD COATER OPERATOR PATIENT STATUS, ABG STAT 01/06/2024 1 :05 PM INSULATION BOARD COATER OPERATOR LACTATE, B STAT 01/06/2024 1:05 PM INSULATION BOARD COATER OPERATOR HEMOGLOBIN, WHOLE BLOOD STAT 01/06/2024 1:05 PM INSULATION BOARD COATER OPERATOR SODIUM, B STAT 01/06/2024 1:05 PM INSULATION BOARD COATER OPERATOR POTASSIUM, B STAT 01/06/2024 1:05 PM INSULATION BOARD COATER OPERATOR GLUCOSE, WHOLE BLOOD STAT 01/06/2024 1:05 PM INSULATION BOARD COATER OPERATOR ABG W/O COOX STAT 01/06/2024 1:05 PM INSULATION BOARD COATER OPERATOR CALCIUM, IONIZED, S/B STAT 01/06/2024 1:05 PM INSULATION BOARD COATER OPERATOR TRANSFUSE RED BLOOD CELLS Routine 01/06/2024 12:05 PM INSULATION BOARD COATER OPERATOR DX HIP RIGHT 2-3 VIEWS RAD - Routine (most inpatients and all outpatients) 01/06/2024 11:53 AM INSULATION BOARD COATER OPERATOR HEMOGLOBIN, WHOLE BLOOD STAT 01/06/2024 11:13 AM INSULATION BOARD COATER OPERATOR GLUCOSE POCT, B Routine 01/06/2024 11:04 AM INSULATION BOARD COATER OPERATOR DX HIP RIGHT 2-3 VIEWS RAD - Routine (most inpatients and all outpatients) 01/06/2024 11:00 AM INSULATION BOARD COATER OPERATOR DX PELVIS 1-2 VIEWS RAD - Routine (most inpatients and all outpatients) 01/06/2024 10:24 AM INSULATION BOARD COATER OPERATOR DX PELVIS 1-2 VIEWS RAD - Routine (most inpatients and all outpatients) 01/06/2024 10:00 AM INSULATION BOARD COATER OPERATOR PATIENT STATUS, ABG STAT 01/06/2024 9 :32 AM INSULATION BOARD COATER OPERATOR ABG W/COOX STAT 01/06/2024 9:32 AM INSULATION BOARD COATER OPERATOR BACTERIA CULT, AEROBE/ANAEROBE+SUSC Routine 01/06/2024 9:28 AM INSULATION BOARD COATER OPERATOR BACTERIA CULT, AEROBE/ANAEROBE+SUSC Routine 01/06/2024 9:28 AM INSULATION BOARD COATER OPERATOR MYCOBACTERIAL CULTURE, V Routine 01/06/2024 9:28 AM INSULATION BOARD COATER OPERATOR MYCOBACTERIAL CULTURE, V Routine 01/06/2024 9:28 AM INSULATION BOARD COATER OPERATOR ACID FAST SMEAR FOR MYCOBACTERIUM Routine 01/06/2024 9:28 AM INSULATION BOARD COATER OPERATOR Infection Total Hip Arthroplasty Subsequent Right ACID FAST SMEAR FOR MYCOBACTERIUM Routine 01/06/2024 9:28 AM INSULATION BOARD COATER OPERATOR Infection Total Hip Arthroplasty Subsequent Right FUNGAL CULTURE, ROUTINE Routine 01/06/2024 9:28 AM INSULATION BOARD COATER OPERATOR Infection Total Hip Arthroplasty Subsequent Right FUNGAL CULTURE, ROUTINE Routine 01/06/2024 9:28 AM INSULATION BOARD COATER OPERATOR Infection Total Hip Arthroplasty Subsequent Right SURGICAL PATHOLOGY, [facility] Routine 01/06/2024 9:13 AM INSULATION BOARD COATER OPERATOR Infection Total Hip Arthroplasty Subsequent Right BACTERIA CULT, AEROBE/ANAEROBE+SUSC Routine 01/06/2024 9:08 AM INSULATION BOARD COATER OPERATOR MYCOBACTERIAL CULTURE, V Routine 01/06/2024 9:08 AM INSULATION BOARD COATER OPERATOR ACID FAST SMEAR FOR MYCOBACTERIUM Routine 01/06/2024 9:08 AM INSULATION BOARD COATER OPERATOR Infection Total Hip Arthroplasty Subsequent Right FUNGAL CULTURE, ROUTINE Routine 01/06/2024 9:08 AM INSULATION BOARD COATER OPERATOR Infection Total Hip Arthroplasty Subsequent Right GLUCOSE POCT, B Routine 01/06/2024 9:00 AM INSULATION BOARD COATER OPERATOR ARTHROPLASTY REVISION FEMORAL+ACETABULAR HIP 01/06/2024 7:34 AM INSULATION BOARD COATER OPERATOR Infection Total Hip Arthroplasty Subsequent Right PREPARE RED BLOOD CELLS Routine 01/06/2024 6:30 AM INSULATION BOARD COATER OPERATOR PREPARE RED BLOOD CELLS STAT 01/06/2024 6:30 AM INSULATION BOARD COATER OPERATOR TYPE AND SCREEN Routine 01/06/2024 6:30 AM INSULATION BOARD COATER OPERATOR GLUCOSE POCT, B Routine 01/06/2024 6:06 AM INSULATION BOARD COATER OPERATOR documented in this encounter Results * Glucose, POCT (01/09/2024 8:07 AM INSULATION BOARD COATER OPERATOR) Pathologist [facility] Glucose, POCT, B 88 70 - 140 mg/dL 01/09/2024 8:10 AM INSULATION BOARD COATER OPERATOR PCDE Site Capillary 01/09/2024 8:10 AM INSULATION BOARD COATER OPERATOR PCDE Blood 01/09/2024 8:07 AM INSULATION BOARD COATER OPERATOR 01/09/2024 8:10 AM INSULATION BOARD COATER OPERATOR us Unknown Provider LAB POCT ORDERABLES-MANUAL Cata l Result [facility] [address] [place] [address], [facility] PCDE [facility] POC [address] [place] [address] * (ABNORMAL) Basic Metabolic Panel (01/09/2024 7:18 AM INSULATION BOARD COATER OPERATOR) Pathologist [facility] Potassium, P 4.8 3.6 - 5.2 mmol/L 01/09/2024 7:58 AM INSULATION BOARD COATER OPERATOR METH Sodium, P 135 135 - 145 mmol/L 01/09/2024 7:58 AM INSULATION BOARD COATER OPERATOR METH Chloride, P 101 98 - 107 mmol/L 01/09/2024 7:58 AM INSULATION BOARD COATER OPERATOR METH Bicarbonate, P 27 22 - 29 mmol/L 01/09/2024 7:58 AM INSULATION BOARD COATER OPERATOR METH Anion Gap, P 7 7 - 15 01/09/2024 7:58 AM INSULATION BOARD COATER OPERATOR METH BUN (Blood Urea Nitrogen), P 41(H) 8 - 24 mg/dL 01/09/2024 7:58 AM INSULATION BOARD COATER OPERATOR METH Creatinine 0.91 0.74 - 1.35 mg/dL 01/09/2024 7:58 AM INSULATION BOARD COATER OPERATOR METH Estimated GFR (eGFR) >90 >=60 mL/min/BSA 01/09/2024 7:58 AM INSULATION BOARD COATER OPERATOR METH Comment: Estimated GFR calculated using the 2020 CKD_EPI creatinine equation. Calcium, Total, P 8.4(L) 8.6 - 10.0 mg/dL 01/09/2024 7:58 AM INSULATION BOARD COATER OPERATOR METH Glucose, P 100 70 - 140 mg/dL 01/09/2024 7:58 AM INSULATION BOARD COATER OPERATOR METH Blood (Blood, Venous) 01/09/2024 7:18 AM INSULATION BOARD COATER OPERATOR 01/09/2024 7:34 AM INSULATION BOARD COATER OPERATOR Trae Coffey M.D. LAB BLOOD ADD-ON Final Result Performing Organization Address City/[facility]/ZIP Co de Phone Number [facility] [address] [place] [address], [facility] METH [facility] [address] [place] [address] * (ABNORMAL) Hemoglobin (01/09/2024 7:18 AM INSULATION BOARD COATER OPERATOR) Hemoglobin 7.9(L) 13.2 - 16.6 g/dL 01/09/2024 7:39 AM INSULATION BOARD COATER OPERATOR METH Blood (Blood, Venous) 01/09/2024 7:18 AM INSULATION BOARD COATER OPERATOR 01/09/2024 7:31 AM INSULATION BOARD COATER OPERATOR Trae Coffey M.D. LAB BLOOD ADD-ON Final Result Performing Organization Address City/[facility] Co de Phone Number [facility] [address] [place] [address], [facility] METH [facility] [address] [place] [address] * Glucose, POCT (01/09/2024 2:48 AM INSULATION BOARD COATER OPERATOR) Glucose, POCT, B 107 70 - 140 mg/dL 01/09/2024 3:37 AM INSULATION BOARD COATER OPERATOR PCDE Site Capillary 01/09/2024 3:37 AM INSULATION BOARD COATER OPERATOR PCDE Last Intake > 4 hours 01/09/2024 3:37 AM INSULATION BOARD COATER OPERATOR PCDE Blood 01/09/2024 2:48 AM INSULATION BOARD COATER OPERATOR 01/09/2024 3:38 AM INSULATION BOARD COATER OPERATOR Unknown Provider LAB POCT ORDERABLES-MANUAL Cata l Result Performing Organization Address City/[facility]/ZIP Co de Phone Number [facility] [address] [place] [id number], [facility] PCDE [facility] POC [address] [place] [address] * Glucose, POCT (01/08/2024 11:26 PM INSULATION BOARD COATER OPERATOR) Glucose, POCT, B 111 70 - 140 mg/dL 01/09/2024 7:55 AM INSULATION BOARD COATER OPERATOR PCDE Last Intake 1-2 hours 01/09/2024 7:55 AM INSULATION BOARD COATER OPERATOR PCDE Blood 01/08/2024 11:2 6 PM INSULATION BOARD COATER OPERATOR 01/09/2024 7:56 AM INSULATION BOARD COATER OPERATOR us Unknown Provider LAB POCT ORDERABLES-MANUAL Cata l Result [facility] [address] [place] [address], [facility] PCDE [facility] POC [address] [place] [address] * DX Chest Portable 1 View (01/08/2024 11:13 PM INSULATION BOARD COATER OPERATOR) Anatomical Region Laterality Modality Chest, Thoracic RST LOS, Tho racic ARZ LOS, Thoracic FLA LOS N/A Digital Radiography Impressions 01/09/2024 7:58 AM INSULATION BOARD COATER OPERATOR Since 06/07/2023, interval removal of previous central venous catheter. Remainder not significantly changed. Low lung volumes. Minimal atelectasis in the left lower lobe. Stable borderline cardiomegaly. Sesser device. No definite focal airspace opacity. Narrative 01/09/2024 7:58 AM INSULATION BOARD COATER OPERATOR EXAM: DX CHEST PORTABLE 1 VIEW Procedure Note Frankie Oliva M.D. - 01/09/2024 EXAM: DX CHEST PORTABLE 1 VIEW IMPRESSION: Since 06/07/2023, interval removal of previous central venous catheter.Remainder not significantly changed. Low lung volumes. Minimal atelectasisin the left lower lobe. Stable borderline cardiomegaly. Sesser device. Nodefinite focal airspace opacity. us Poonam Hayes M.D. [facility]G DIAGNOSTIC IMAGING [place] OCEDURES Final Result * Glucose, POCT (01/08/2024 9:55 PM INSULATION BOARD COATER OPERATOR) Glucose, POCT, B 120 70 - 140 mg/dL 01/08/2024 9:59 PM INSULATION BOARD COATER OPERATOR PCDE Blood 01/08/2024 9:55 PM INSULATION BOARD COATER OPERATOR 01/08/2024 9:59 PM INSULATION BOARD COATER OPERATOR us Unknown Provider LAB POCT ORDERABLES-MANUAL Cata l Result Performing Organization Address [facility] Co de Phone Number [facility] [address] [place] [address], [facility] PCDE [facility] POC [address] [place] [address] * Glucose, POCT (01/08/2024 6:03 PM INSULATION BOARD COATER OPERATOR) Glucose, POCT, B 102 70 - 140 mg/dL 01/08/2024 6:16 PM INSULATION BOARD COATER OPERATOR PCDE Site Capillary 01/08/2024 6:16 PM INSULATION BOARD COATER OPERATOR PCDE Last Intake 3-4 hours 01/08/2024 6:16 PM INSULATION BOARD COATER OPERATOR PCDE Blood 01/08/2024 6:03 PM INSULATION BOARD COATER OPERATOR 01/08/2024 6:16 PM INSULATION BOARD COATER OPERATOR us Unknown Provider LAB POCT ORDERABLES-MANUAL Cata l Result Performing Organization Address [facility] de Phone Number [facility] [address] [place] [address], [facility] PCDE [facility] POC [address] [place] [address] * (ABNORMAL) Glucose, POCT (01/08/2024 12:33 PM INSULATION BOARD COATER OPERATOR) Glucose, POCT, B 158(H) 70 - 140 mg/dL 01/08/2024 12:35 PM INSULATION BOARD COATER OPERATOR PCDE Site Capillary 01/08/2024 12:35 PM INSULATION BOARD COATER OPERATOR PCDE Last Intake 3-4 hours 01/08/2024 12:35 PM INSULATION BOARD COATER OPERATOR PCDE Blood 01/08/2024 12:3 3 PM INSULATION BOARD COATER OPERATOR 01/08/2024 12:36 PM INSULATION BOARD COATER OPERATOR us Unknown Provider LAB POCT ORDERABLES-MANUAL Cata l Result Performing Organization Address City/[facility]/ZIP Co de Phone Number [facility] [address] [place] [address], [facility] PCDE [facility] POC [address] [place] [address] * (ABNORMAL) Glucose, POCT (01/08/2024 7:24 AM INSULATION BOARD COATER OPERATOR) [facility] Glucose, POCT, B 203(H) 70 - 140 mg/dL 01/08/2024 10:46 AM INSULATION BOARD COATER OPERATOR PCDE Comment: Glucose results collected from venous catheters may be falsely elevated. Site Venline 01/08/2024 10:46 AM INSULATION BOARD COATER OPERATOR PCDE Last Intake 3-4 hours 01/08/2024 10:46 AM INSULATION BOARD COATER OPERATOR PCDE Blood 01/08/2024 7:24 AM INSULATION BOARD COATER OPERATOR 01/08/2024 10:46 AM INSULATION BOARD COATER OPERATOR us Unknown Provider LAB POCT ORDERABLES-MANUAL Cata l Result [facility] [address] [place] [address], [facility] PCDE [facility] POC [address] [place] [address] * (ABNORMAL) Basic Metabolic Panel (01/08/2024 7:21 AM INSULATION BOARD COATER OPERATOR) [facility] Potassium, S 5.3(H) 3.6 - 5.2 mmol/L 01/08/2024 9:06 AM INSULATION BOARD COATER OPERATOR DTL Sodium, S 137 135 - 145 mmol/L 01/08/2024 9:06 AM INSULATION BOARD COATER OPERATOR DTL Chloride, S 104 98 - 107 mmol/L 01/08/2024 9:06 AM INSULATION BOARD COATER OPERATOR DTL Bicarbonate, S 25 22 - 29 mmol/L 01/08/2024 9:06 AM INSULATION BOARD COATER OPERATOR DTL Anion Gap 8 7 - 15 01/08/2024 9:06 AM INSULATION BOARD COATER OPERATOR DTL BUN (Blood Urea Nitrogen), S 53(H) 8 - 24 mg/dL 01/08/2024 9:06 AM INSULATION BOARD COATER OPERATOR DTL Creatinine 1.39(H) 0.74 - 1.35 mg/dL 01/08/2024 9:06 AM INSULATION BOARD COATER OPERATOR DTL Estimated GFR (eGFR) 58(L) >=60 mL/min/BSA 01/08/2024 9:06 AM INSULATION BOARD COATER OPERATOR DTL Comment: Estimated GFR calculated using the 2020 CKD_EPI creatinine equation. Calcium, Total, S 8.0(L) 8.6 - 10.0 mg/dL 01/08/2024 9:06 AM INSULATION BOARD COATER OPERATOR DTL Glucose, S 209(H) 70 - 140 mg/dL 01/08/2024 9:06 AM INSULATION BOARD COATER OPERATOR DTL Blood (Blood, Venous) 01/08/2024 7:21 AM INSULATION BOARD COATER OPERATOR 01/08/2024 7:47 AM INSULATION BOARD COATER OPERATOR Trae Coffey M.D. LAB BLOOD ADD-ON Final Result [facility] [address] [place] [address], [facility] [address] [place] [address] * (ABNORMAL) CBC with Differential, Blood (01/08/2024 7:21 AM INSULATION BOARD COATER OPERATOR) Hemoglobin 7.7(L) 13.2 - 16.6 g/dL 01/08/2024 8:01 AM INSULATION BOARD COATER OPERATOR DTL Hematocrit 22.7(L) 38.3 - 48.6 % 01/08/2024 8:01 AM INSULATION BOARD COATER OPERATOR DTL Erythrocytes 2.50(L) 4.35 - 5.65 x10(12)/L 01/08/2024 8:01 AM INSULATION BOARD COATER OPERATOR DTL MCV 90.8 78.2 - 97.9 fL 01/08/2024 8:01 AM INSULATION BOARD COATER OPERATOR DTL RBC Distrib Width 15.0(H) 11.8 - 14.5 % 01/08/2024 8:01 AM INSULATION BOARD COATER OPERATOR DTL Platelet Count 105(L) 135 - 317 x10(9)/L 01/08/2024 8:01 AM INSULATION BOARD COATER OPERATOR DTL Leukocytes 10.9(H) 3.4 - 9.6 x10(9)/L 01/08/2024 8:01 AM INSULATION BOARD COATER OPERATOR DTL Neutrophils 7.90(H) 1.56 - 6.45 x10(9)/L 01/08/2024 8:01 AM INSULATION BOARD COATER OPERATOR DHPM Lymphocytes 1.26 0.95 - 3.07 x10(9)/L 01/08/2024 8:01 AM INSULATION BOARD COATER OPERATOR DTL Monocytes 1.69(H) 0.26 - 0.81 x10(9)/L 01/08/2024 8:01 AM INSULATION BOARD COATER OPERATOR DTL Eosinophils <0.03 0.03 - 0.48 x10(9)/L 01/08/2024 8:01 AM INSULATION BOARD COATER OPERATOR DTL Basophils <0.03 0.01 - 0.08 x10(9)/L 01/08/2024 8:01 AM INSULATION BOARD COATER OPERATOR DTL Blood (Blood, Venous) 01/08/2024 7:21 AM INSULATION BOARD COATER OPERATOR 01/08/2024 7:35 AM INSULATION BOARD COATER OPERATOR us Trae Coffey M.D. LAB BLOOD ADD-ON Final Result Performing Organization Address City/[facility]/ZIP Co de Phone Number [facility] [address] [place] [address], [facility] DTL [facility] [address] [place] [address] DHPM [facility] [address] [place] [address] * (ABNORMAL) Glucose, POCT (01/08/2024 2:54 AM INSULATION BOARD COATER OPERATOR) Glucose, POCT, B 183(H) 70 - 140 mg/dL 01/08/2024 3:01 AM INSULATION BOARD COATER OPERATOR PCDE Site Capillary 01/08/2024 3:01 AM INSULATION BOARD COATER OPERATOR PCDE Last Intake > 4 hours 01/08/2024 3:01 AM INSULATION BOARD COATER OPERATOR PCDE Blood 01/08/2024 2:54 AM INSULATION BOARD COATER OPERATOR 01/08/2024 3:01 AM INSULATION BOARD COATER OPERATOR us Unknown Provider LAB POCT ORDERABLES-MANUAL Cata l Result Performing Organization Address City/[facility]/ZIP Co de Phone Number [facility] [address] [place] [address], [facility] PCDE [facility] POC [address] [place] [address] * (ABNORMAL) Glucose, POCT (01/07/2024 9:48 PM INSULATION BOARD COATER OPERATOR) Glucose, POCT, B 241(H) 70 - 140 mg/dL 01/07/2024 10:25 PM INSULATION BOARD COATER OPERATOR PCDE Last Intake 2-3 hours 01/07/2024 10:25 PM INSULATION BOARD COATER OPERATOR PCDE Blood 01/07/2024 9:48 PM INSULATION BOARD COATER OPERATOR 01/07/2024 10:25 PM INSULATION BOARD COATER OPERATOR us Unknown Provider LAB POCT ORDERABLES-MANUAL Cata l Result Performing Organization Address City/[facility]/ZIP Co de Phone Number [facility] [address] [place] [address], [facility] PCDE [facility] POC [address] [place] [address] * (ABNORMAL) Glucose, POCT (01/07/2024 6:26 PM INSULATION BOARD COATER OPERATOR) Glucose, POCT, B 229(H) 70 - 140 mg/dL 01/07/2024 6:28 PM INSULATION BOARD COATER OPERATOR PCDE Site Capillary 01/07/2024 6:28 PM INSULATION BOARD COATER OPERATOR PCDE Last Intake 3-4 hours 01/07/2024 6:28 PM INSULATION BOARD COATER OPERATOR PCDE Blood 01/07/2024 6:26 PM INSULATION BOARD COATER OPERATOR 01/07/2024 6:29 PM INSULATION BOARD COATER OPERATOR us Unknown Provider LAB POCT ORDERABLES-MANUAL Cata l Result Performing Organization Address City/[facility] Co de Phone Number [facility] [address] [place] [address], [facility] PCDE [facility] POC [address] [place] [address] * (ABNORMAL) Hemoglobin (01/07/2024 4:29 PM INSULATION BOARD COATER OPERATOR) Hemoglobin 8.2(L) 13.2 - 16.6 g/dL 01/07/2024 4:52 PM INSULATION BOARD COATER OPERATOR DTL Blood (Blood, Venous) 01/07/2024 4:29 PM INSULATION BOARD COATER OPERATOR 01/07/2024 4:41 PM INSULATION BOARD COATER OPERATOR us Trae Coffey M.D. LAB BLOOD ADD-ON Final Result [facility] [address] [place] [address], [place] DTL [facility] [address] [place] [address] * (ABNORMAL) Glucose, POCT (01/07/2024 3:10 PM INSULATION BOARD COATER OPERATOR) Pathologist [facility] Glucose, POCT, B 234(H) 70 - 140 mg/dL 01/07/2024 4:20 PM INSULATION BOARD COATER OPERATOR PCDE Site Capillary 01/07/2024 4:20 PM INSULATION BOARD COATER OPERATOR PCDE Blood 01/07/2024 3:10 PM INSULATION BOARD COATER OPERATOR 01/07/2024 4:21 PM INSULATION BOARD COATER OPERATOR Unknown Provider LAB POCT ORDERABLES-MANUAL Cata l Result Performing Organization Address City/[facility]/ZIP Co de Phone Number [facility] [address] [place] [address], [facility] PCDE [facility] POC [address] [place] [address] * Transfuse Red Blood Cells : (01/07/2024 11:42 AM INSULATION BOARD COATER OPERATOR) us Trae Coffey M.D. BLOOD TRANSFUSION ORDERABLES Final Result * (ABNORMAL) Glucose, POCT (01/07/2024 7:48 AM INSULATION BOARD COATER OPERATOR) Pathologist [facility] Glucose, POCT, B 158(H) 70 - 140 mg/dL 01/07/2024 7:57 AM INSULATION BOARD COATER OPERATOR PCDE Site Capillary 01/07/2024 7:57 AM INSULATION BOARD COATER OPERATOR PCDE Last Intake <1 hour 01/07/2024 7:57 AM INSULATION BOARD COATER OPERATOR PCDE Blood 01/07/2024 7:48 AM INSULATION BOARD COATER OPERATOR 01/07/2024 7:57 AM INSULATION BOARD COATER OPERATOR Unknown Provider LAB POCT ORDERABLES-MANUAL Cata l Result Performing Organization Address City/[facility]/ZIP Co de Phone Number [facility] [address] [place], [place] [address] PCDE [facility] POC [address] [place] [address] * (ABNORMAL) CBC without Differential (01/07/2024 3:35 AM INSULATION BOARD COATER OPERATOR) Pathologist [facility] Hemoglobin 6.8(L) 13.2 - 16.6 g/dL 01/07/2024 4:53 AM INSULATION BOARD COATER OPERATOR DTL Comment:Rule out IV contamin ation. Consider sample redraw if clinically indicated. Hematocrit 20.3(L) 38.3 - 48.6 % 01/07/2024 4:53 AM INSULATION BOARD COATER OPERATOR DTL Erythrocytes 2.28(L) 4.35 - 5.65 x10(12)/L 01/07/2024 4:53 AM INSULATION BOARD COATER OPERATOR DTL MCV 89.0 78.2 - 97.9 fL 01/07/2024 4:53 AM INSULATION BOARD COATER OPERATOR DTL RBC Distrib Width 15.3(H) 11.8 - 14.5 % 01/07/2024 4:53 AM INSULATION BOARD COATER OPERATOR DTL Platelet Count 98(L) 135 - 317 x10(9)/L 01/07/2024 4:53 AM INSULATION BOARD COATER OPERATOR DTL Leukocytes 8.7 3.4 - 9.6 x10(9)/L 01/07/2024 4:53 AM INSULATION BOARD COATER OPERATOR DTL Blood (Blood, Venous) 01/07/2024 3:35 AM INSULATION BOARD COATER OPERATOR 01/07/2024 3:58 AM INSULATION BOARD COATER OPERATOR us Trae Coffey M.D. LAB BLOOD ADD-ON Final Result [facility] [address] [place] [address], [facility] [address] [place] [address] * (ABNORMAL) Basic Metabolic Panel (01/07/2024 3:35 AM INSULATION BOARD COATER OPERATOR) Potassium, S 5.4(H) 3.6 - 5.2 mmol/L 01/07/2024 4:40 AM INSULATION BOARD COATER OPERATOR DTL Sodium, S 139 135 - 145 mmol/L 01/07/2024 4:40 AM INSULATION BOARD COATER OPERATOR DTL Chloride, S 105 98 - 107 mmol/L 01/07/2024 4:40 AM INSULATION BOARD COATER OPERATOR DTL Bicarbonate, S 22 22 - 29 mmol/L 01/07/2024 4:40 AM INSULATION BOARD COATER OPERATOR DTL Anion Gap 12 7 - 15 01/07/2024 4:40 AM INSULATION BOARD COATER OPERATOR DTL BUN (Blood Urea Nitrogen), S 29(H) 8 - 24 mg/dL 01/07/2024 4:40 AM INSULATION BOARD COATER OPERATOR DTL Creatinine 1.30 0.74 - 1.35 mg/dL 01/07/2024 4:40 AM INSULATION BOARD COATER OPERATOR DTL Estimated GFR (eGFR) 63 >=60 mL/min/BSA 01/07/2024 4:40 AM INSULATION BOARD COATER OPERATOR DTL Comment: Estimated GFR calculated using the 2020 CKD_EPI creatinine equation. Calcium, Total, S 7.8(L) 8.6 - 10.0 mg/dL 01/07/2024 4:40 AM INSULATION BOARD COATER OPERATOR DTL Glucose, S 175(H) 70 - 140 mg/dL 01/07/2024 4:40 AM INSULATION BOARD COATER OPERATOR DTL Blood (Blood, Venous) 01/07/2024 3:35 AM INSULATION BOARD COATER OPERATOR 01/07/2024 4:15 AM INSULATION BOARD COATER OPERATOR Trae Coffey M.D. LAB BLOOD ADD-ON Final Result Performing Organization Address City/[facility]/ZIP Co de Phone Number [facility] [address] [place] [address] * Hemoglobin A1c (01/07/2024 3:35 AM INSULATION BOARD COATER OPERATOR) Pathologist [facility] Hemoglobin A1c, B 5.1 4.0 - 5.6 % 01/07/2024 4:46 AM INSULATION BOARD COATER OPERATOR DTL Blood (Blood, Venous) 01/07/2024 3:35 AM INSULATION BOARD COATER OPERATOR 01/07/2024 3:58 AM INSULATION BOARD COATER OPERATOR Vel Vinson M.D., M.B.A. LAB BLOOD ADD-ON F inal Result Performing Organization Address City/[facility]/ZIP Co de Phone Number [facility] [address] [place] [address] * (ABNORMAL) Glucose, POCT (01/07/2024 2:55 AM INSULATION BOARD COATER OPERATOR) Glucose, POCT, B 190(H) 70 - 140 mg/dL 01/07/2024 3:33 AM INSULATION BOARD COATER OPERATOR PCDE Site Capillary 01/07/2024 3:33 AM INSULATION BOARD COATER OPERATOR PCDE Last Intake > 4 hours 01/07/2024 3:33 AM INSULATION BOARD COATER OPERATOR PCDE Blood 01/07/2024 2:55 AM INSULATION BOARD COATER OPERATOR 01/07/2024 3:34 AM INSULATION BOARD COATER OPERATOR us Unknown Provider LAB POCT ORDERABLES-MANUAL Cata l Result Performing Organization Address [facility] Co de Phone Number [facility] [address] [place] [address], [facility] PCDE [facility] POC [address] [place] [address] * (ABNORMAL) Glucose, POCT (01/06/2024 9:38 PM INSULATION BOARD COATER OPERATOR) Glucose, POCT, B 231(H) 70 - 140 mg/dL 01/06/2024 9:49 PM INSULATION BOARD COATER OPERATOR PCDE Site Capillary 01/06/2024 9:49 PM INSULATION BOARD COATER OPERATOR PCDE Last Intake 2-3 hours 01/06/2024 9:49 PM INSULATION BOARD COATER OPERATOR PCDE Blood 01/06/2024 9:38 PM INSULATION BOARD COATER OPERATOR 01/06/2024 9:49 PM INSULATION BOARD COATER OPERATOR us Unknown Provider LAB POCT ORDERABLES-MANUAL Cata l Result Performing Organization Address [facility] de Phone Number [facility] [address] [place] [address], [facility] PCDE [facility] POC [address] [place], [place] [id number] * (ABNORMAL) Glucose, POCT (01/06/2024 3:31 PM INSULATION BOARD COATER OPERATOR) Glucose, POCT, B 197(H) 70 - 140 mg/dL 01/06/2024 3:42 PM INSULATION BOARD COATER OPERATOR PCDE Site Capillary 01/06/2024 3:42 PM INSULATION BOARD COATER OPERATOR PCDE Blood 01/06/2024 3:31 PM INSULATION BOARD COATER OPERATOR 01/06/2024 3:42 PM INSULATION BOARD COATER OPERATOR us Unknown Provider LAB POCT ORDERABLES-MANUAL Cata l Result Performing Organization Address City/[facility]/ZIP Co de Phone Number POC [facility] [address] [place] [address], [facility] PCDE [facility] POC [address] [place] [address] * DX Hip Right 2-3 Views (01/06/2024 2:00 PM INSULATION BOARD COATER OPERATOR) Anatomical Region Laterality Modality Lower Extremity, Hip, Muscul oskeletal RST LOS, Musculoskeletal ARZ LOS, Muskuloskeletal FLA LOS Right Digit al Radiography Impressions 01/06/2024 2:14 PM INSULATION BOARD COATER OPERATOR Right revision [place]. Thin fracture line along and distal to the femoral stem. Tiny metallic fragments along the lateral femur. Negative for postoperative purposes. Narrative 01/06/2024 2:14 PM INSULATION BOARD COATER OPERATOR EXAM: DX HIP RIGHT 2-3 VIEWS Procedure Note Madison Dyer M.D. - 01/06/2024 EXAM: DX HIP RIGHT 2-3 VIEWS IMPRESSION: Right revision [place]. Thin fracture line along and distal to the femoralstem. Tiny metallic fragments along the lateral femur. Negative forpostoperative purposes. Vel Vinson M.D., M.B.A. IMG DIAGNOSTIC NIRMAL GING PROCEDURES Final Result * Sodium, B (01/06/2024 1:05 PM INSULATION BOARD COATER OPERATOR) Sodium, B 137 135 - 145 mmol/L 01/06/2024 3:24 PM INSULATION BOARD COATER OPERATOR METH Blood 01/06/2024 1:05 PM INSULATION BOARD COATER OPERATOR 01/06/2024 1:05 PM INSULATION BOARD COATER OPERATOR Hanh Mckay [facility] LAB BLOOD NON ADD-ON Fin al Result [facility] [address] [place] [address], [facility] METH [facility] [address] [place] [address] * Potassium, Blood (01/06/2024 1:05 PM INSULATION BOARD COATER OPERATOR) Potassium, B 4.1 3.6 - 5.2 mmol/L 01/06/2024 3:32 PM INSULATION BOARD COATER OPERATOR METH Blood 01/06/2024 1:05 PM INSULATION BOARD COATER OPERATOR 01/06/2024 1:05 PM INSULATION BOARD COATER OPERATOR Hanh S Woody [facility] B[facility] NON ADD-ON Fin al Result Performing Organization Address [facility]/ZIP Co de Phone Number [facility] [address] [place] [address], [facility] METH [facility] [address] [place] [address] * Patient Status (01/06/2024 1:05 PM INSULATION BOARD COATER OPERATOR) Temperature 35.3 37.0 deg C 01/06/2024 1:05 PM INSULATION BOARD COATER OPERATOR METH FIO2 0.46 0.21=AIR 01/06/2024 1:05 PM INSULATION BOARD COATER OPERATOR METH Blood 01/06/2024 1:05 PM INSULATION BOARD COATER OPERATOR 01/06/2024 1:05 PM INSULATION BOARD COATER OPERATOR Hanh Mckay [facility] B[facility]OD NON ADD-ON Fin al Result Performing Organization Address [facility] Co de Phone Number [facility] [address] [place] [address], [facility] METH [facility] [address] [place] [address] * (ABNORMAL) Hemoglobin, Whole Blood (01/06/2024 1:05 PM INSULATION BOARD COATER OPERATOR) Hemoglobin, B 8.2(L) 13.2 - 16.6 g/dL 01/06/2024 1:12 PM INSULATION BOARD COATER OPERATOR METH Blood (Blood, Arterial Line) 01/06/2024 1:05 PM INSULATION BOARD COATER OPERATOR 01/06/2024 1:05 PM INSULATION BOARD COATER OPERATOR Baltazar Pacheco M.D. LAB BLOOD NON ADD-ON Final Re sult Performing Organization Address City/[facility]/ZIP Co de Phone Number [facility] [address] [place] [address], [facility] METH [facility] [address] [place] [address] * (ABNORMAL) Glucose, Whole Blood (01/06/2024 1:05 PM INSULATION BOARD COATER OPERATOR) Glucose 247(H) 70 - 140 mg/dL 01/06/2024 1:12 PM INSULATION BOARD COATER OPERATOR METH Blood (Blood, Arterial Line) 01/06/2024 1:05 PM INSULATION BOARD COATER OPERATOR 01/06/2024 1:05 PM INSULATION BOARD COATER OPERATOR Baltazar Pacheco M.D. LAB BLOOD ADD-ON Final Result Performing Organization Address [facility] Co de Phone Number [facility] [address] [place] [place] [id number] [place] [address] METH [facility] [address] [place] [address] * (ABNORMAL) Calcium, Ionized (01/06/2024 1:05 PM INSULATION BOARD COATER OPERATOR) Calcium, Ionized, B 4.37(L) 4.65 - 5.30 mg/dL 01/06/2024 1:25 PM INSULATION BOARD COATER OPERATOR METH Blood (Blood, Arterial Line) 01/06/2024 1:05 PM INSULATION BOARD COATER OPERATOR 01/06/2024 1:05 PM INSULATION BOARD COATER OPERATOR us aBltazar Pacheco M.D. LAB BLOOD NON ADD-ON Final Re sult Performing Organization Address City/[facility] Co de Phone Number [facility] [address] [place], [place] [address] METH [facility] [address] [place] [address] * (ABNORMAL) Lactate, B (01/06/2024 1:05 PM INSULATION BOARD COATER OPERATOR) Lactate, B 3.0(H) 0.5 - 2.2 mmol/L 01/06/2024 1:26 PM INSULATION BOARD COATER OPERATOR METH Blood (Blood, Arterial Line) 01/06/2024 1:05 PM INSULATION BOARD COATER OPERATOR 01/06/2024 1:05 PM INSULATION BOARD COATER OPERATOR us Baltazar Pacheco M.D. LAB BLOOD NON ADD-ON Final Re sult Performing Organization Address [facility] Co de Phone Number [facility] [address] [place] [address], [facility] METH [facility] [address] [place] [address] * (ABNORMAL) Blood Gas without Coox, Arterial (01/06/2024 1:05 PM INSULATION BOARD COATER OPERATOR) pO2 166(H) 83 - 108 mm Hg 01/06/2024 1:12 PM INSULATION BOARD COATER OPERATOR METH pCO2 42 35 - 48 mm Hg 01/06/2024 1:12 PM INSULATION BOARD COATER OPERATOR METH pH 7.35 7.35 - 7.45 pH 01/06/2024 1:12 PM INSULATION BOARD COATER OPERATOR METH Base Excess -2 -2 - 3 mmol/L 01/06/2024 1:12 PM INSULATION BOARD COATER OPERATOR METH HCO3 23 22 - 26 mmol/L 01/06/2024 1:12 PM INSULATION BOARD COATER OPERATOR METH Blood (Blood, Arterial Line) 01/06/2024 1:05 PM INSULATION BOARD COATER OPERATOR 01/06/2024 1:05 PM INSULATION BOARD COATER OPERATOR us Baltazar Pacheco M.D. LAB BLOOD NON ADD-ON Final Re sult Performing Organization Address [facility] Co de Phone Number [facility] [address] [place] [address], [facility] METH [facility] [address] [place] [address] * Transfuse Red Blood Cells : (01/06/2024 12:55 PM INSULATION BOARD COATER OPERATOR) us Baltazar Pacheco M.D. BLOOD TRANSFUSION ORDERABLES Edited Result - Final * DX Hip Right 2-3 Views (01/06/2024 11:53 AM INSULATION BOARD COATER OPERATOR) Anatomical Region Laterality Modality Lower Extremity, Hip, Muscul oskeletal RST LOS, Musculoskeletal ARZ LOS, Muskuloskeletal FLA LOS Right Digit al Radiography Impressions 01/06/2024 11:58 AM INSULATION BOARD COATER OPERATOR Intra-operative images taken during right revision [place]. Narrative 01/06/2024 11:58 AM INSULATION BOARD COATER OPERATOR EXAM: DX HIP RIGHT 2-3 VIEWS Procedure Note Madison Dyer M.D. - 01/06/2024 EXAM: DX HIP RIGHT 2-3 VIEWS IMPRESSION: Intra-operative images taken during right revision [place]. us Vel Vinson M.D., M.B.A. IMG DIAGNOSTIC NIRMAL GING PROCEDURES Final Result * (ABNORMAL) Hemoglobin, Whole Blood (01/06/2024 11:13 AM INSULATION BOARD COATER OPERATOR) Hemoglobin, B 8.3(L) 13.2 - 16.6 g/dL 01/06/2024 11:25 AM INSULATION BOARD COATER OPERATOR METH Blood (Blood, Arterial Line) 01/06/2024 11:13 AM INSULATION BOARD COATER OPERATOR 01/06/2024 11:19 AM INSULATION BOARD COATER OPERATOR us Baltazar Pacheco M.D. LAB BLOOD NON ADD-ON Final Re sult Performing Organization Address City/[facility]/ZIP Co de Phone Number [facility] [address] METH [facility] [address] [place] [address] * Glucose, POCT (01/06/2024 11:04 AM INSULATION BOARD COATER OPERATOR) Glucose, POCT, B 98 70 - 140 mg/dL 01/06/2024 11:06 AM INSULATION BOARD COATER OPERATOR PCDE Site ARTLINE 01/06/2024 11:06 AM INSULATION BOARD COATER OPERATOR PCDE Blood 01/06/2024 11:0 4 AM INSULATION BOARD COATER OPERATOR 01/06/2024 11:07 AM INSULATION BOARD COATER OPERATOR us Unknown Provider LAB POCT ORDERABLES-MANUAL Cata l Result Performing Organization Address City/[facility]/ZIP Co de Phone Number POC [facility] [address] [place] [address], [facility] PCDE [facility] POC [address] [place] [address] * DX Hip Right 2-3 Views (01/06/2024 11:00 AM INSULATION BOARD COATER OPERATOR) Anatomical Region Laterality Modality Lower Extremity, Hip, Muscul oskeletal RST LOS, Musculoskeletal ARZ LOS, Muskuloskeletal FLA LOS Right Digit al Radiography Impressions 01/06/2024 11:17 AM INSULATION BOARD COATER OPERATOR Intraoperative images taken during right [place] reimplantation. Narrative 01/06/2024 11:17 AM INSULATION BOARD COATER OPERATOR EXAM: DX HIP RIGHT 2-3 VIEWS Procedure Note Cara Poole M.D. - 01/06/2024 EXAM: DX HIP RIGHT 2-3 VIEWS IMPRESSION: Intraoperative images taken during right [place] reimplantation. Vel Vinson M.D., M.B.A. IMG DIAGNOSTIC NIRMAL GING PROCEDURES Final Result * DX Pelvis 1-2 Views (01/06/2024 10:24 AM INSULATION BOARD COATER OPERATOR) Anatomical Region Laterality Modality Pelvis, Musculoskeletal RST LOS, Musculoskeletal ARZ LOS, Muskuloskeletal FLA LOS N/A Digital Radiography Impressions 01/06/2024 10:50 AM INSULATION BOARD COATER OPERATOR Intraoperative image taken during right [place] reimplantation. Narrative 01/06/2024 10:50 AM INSULATION BOARD COATER OPERATOR EXAM: DX PELVIS 1-2 VIEWS Procedure Note Cara Poole M.D. - 01/06/2024 EXAM: DX PELVIS 1-2 VIEWS IMPRESSION: Intraoperative image taken during right [place] reimplantation. Vel Vinson M.D., M.B.A. IMG DIAGNOSTIC NIRMAL GING PROCEDURES Final Result * DX Pelvis 1-2 Views (01/06/2024 10:00 AM INSULATION BOARD COATER OPERATOR) Anatomical Region Laterality Modality Pelvis, Musculoskeletal RST LOS, Musculoskeletal ARZ LOS, Muskuloskeletal FLA LOS N/A Digital Radiography Impressions 01/06/2024 10:06 AM INSULATION BOARD COATER OPERATOR Intra-operative images taken during right [place]. Narrative 01/06/2024 10:06 AM INSULATION BOARD COATER OPERATOR EXAM: DX PELVIS 1-2 VIEWS Procedure Note Madison Dyer M.D. - 01/06/2024 EXAM: DX PELVIS 1-2 VIEWS IMPRESSION: Intra-operative images taken during right [place]. Vel Vinson M.D., M.B.A. IMG DIAGNOSTIC NIRMAL GING PROCEDURES Final Result * Patient Status (01/06/2024 9:32 AM INSULATION BOARD COATER OPERATOR) Temperature 35.1 37.0 deg C 01/06/2024 9:32 AM INSULATION BOARD COATER OPERATOR METH Blood 01/06/2024 9:32 AM INSULATION BOARD COATER OPERATOR 01/06/2024 9:32 AM INSULATION BOARD COATER OPERATOR Hanh Mckay CCR[facility] LAB BLOOD NON ADD-ON Fin al Result [facility] [address] [place] [address], [facility] METH [facility] [address] [place] [address] * (ABNORMAL) Blood Gas with Coox, Arterial (01/06/2024 9:32 AM INSULATION BOARD COATER OPERATOR) pO2 158(H) 83 - 108 mm Hg 01/06/2024 9:37 AM INSULATION BOARD COATER OPERATOR METH pCO2 36 35 - 48 mm Hg 01/06/2024 9:37 AM INSULATION BOARD COATER OPERATOR METH pH 7.46(H) 7.35 - 7.45 pH 01/06/2024 9:37 AM INSULATION BOARD COATER OPERATOR METH Base Excess 2 -2 - 3 mmol/L 01/06/2024 9:37 AM INSULATION BOARD COATER OPERATOR METH HCO3 26 22 - 26 mmol/L 01/06/2024 9:37 AM INSULATION BOARD COATER OPERATOR METH Hemoglobin, B 9.9(L) 13.2 - 16.6 g/dL 01/06/2024 9:37 AM INSULATION BOARD COATER OPERATOR METH O2Hb 98.2(H) 94.0 - 98.0 % 01/06/2024 9:37 AM INSULATION BOARD COATER OPERATOR METH COHb 1.1 <3.0 % 01/06/2024 9:37 AM INSULATION BOARD COATER OPERATOR METH MetHb <1.0 <1.5 % 01/06/2024 9:37 AM INSULATION BOARD COATER OPERATOR METH CtO2 14.1(L) 18.0 - 21.0 vol % 01/06/2024 9:37 AM INSULATION BOARD COATER OPERATOR METH Blood (Blood, Arterial) 01/06/2024 9:32 AM INSULATION BOARD COATER OPERATOR 01/06/2024 9:32 AM INSULATION BOARD COATER OPERATOR us Baltazar Pacheco M.D. LAB BLOOD NON ADD-ON Final Re sult Performing Organization Address [facility] Co de Phone Number [facility] [address] [place] [address], [facility] METH [facility] [address] [place] [address] * Bacteria Culture, Aerobe / Anaerobe + Susc (01/06/2024 9:28 AM INSULATION BOARD COATER OPERATOR) Bacteria Cult, Aerobe/Anaerob e+Susc No growth after 14 days of incubation. 01/20/2024 12:02 PM INSULATION BOARD COATER OPERATOR DTL Hip, Right 01/06/2024 9:28 AM INSULATION BOARD COATER OPERATOR 01/06/2024 11:05 AM INSULATION BOARD COATER OPERATOR Comment:Specimen Source Site : Tissue #2 Narrative [facility] - 01/20/2024 12:02 PM INSULATION BOARD COATER OPERATOR Bacterial Culture: Placed in Bactec aerobic and Bactec anaerobic bottles us Vel Vinson M.D., M.B.A. LAB MICROBIOLOGY - GENERAL ORDERABLES Final Result Performing Organization Address [facility] Co de Phone Number [facility] [address] [place] [address], [facility] DTL [facility] [address] [place] [address] * Bacteria Culture, Aerobe / Anaerobe + Susc (01/06/2024 9:28 AM INSULATION BOARD COATER OPERATOR) Bacteria Cult, Aerobe/Anaerob e+Susc No growth after 14 days of incubation. 01/20/2024 11:02 AM INSULATION BOARD COATER OPERATOR DTL Hip, Right 01/06/2024 9:28 AM INSULATION BOARD COATER OPERATOR 01/06/2024 11:00 AM INSULATION BOARD COATER OPERATOR Comment:Specimen Source Site : Tissue #3 Narrative [facility] - 01/20/2024 11:02 AM INSULATION BOARD COATER OPERATOR Bacterial Culture: Placed in Bactec aerobic and Bactec anaerobic bottles Vel Vinsno M.D., M.B.A. LAB MICROBIOLOGY - GENERAL ORDERABLES Final Result [facility] [address] [place] [address], [facility] [address] [place] [address] * Acid Fast Smear for Mycobacterium (01/06/2024 9:28 AM INSULATION BOARD COATER OPERATOR) Acid Fast Smear For Mycobacterium Negative. 01/06/2024 7:20 PM INSULATION BOARD COATER OPERATOR DTL Tissue (Hip, Right) 01/06/2024 9:28 AM INSULATION BOARD COATER OPERATOR Narrative [facility] - 01/06/2024 7:20 PM INSULATION BOARD COATER OPERATOR Bacterial Culture: Placed in Bactec aerobic and Bactec anaerobic bottles Vel Vinson M.D., M.B.A. LAB MICROBIOLOGY - GENERAL ORDERABLES Final Result [facility] [address] [place] [address], [facility] [address] [place] [address] * Acid Fast Smear for Mycobacterium (01/06/2024 9:28 AM INSULATION BOARD COATER OPERATOR) Acid Fast Smear For Mycobacterium Negative. 01/06/2024 7:20 PM INSULATION BOARD COATER OPERATOR DTL Tissue (Hip, Right) 01/06/2024 9:28 AM INSULATION BOARD COATER OPERATOR Narrative [facility] - 01/06/2024 7:20 PM INSULATION BOARD COATER OPERATOR Bacterial Culture: Placed in Bactec aerobic and Bactec anaerobic bottles Vel Vinson M.D., M.B.A. LAB MICROBIOLOGY - GENERAL ORDERABLES Final Result [facility] [address] [place] [address], [facility] [address] [place] [address] * Surgical Pathology, Frozen Lab (01/06/2024 9:13 AM INSULATION BOARD COATER OPERATOR) 01/08/2024 9:58 PM INSULATION BOARD COATER OPERATOR METH Participated in the Interpretation Nathen Pulido M.D. - Pathology Fellow 01/08/2024 9:58 PM INSULATION BOARD COATER OPERATOR METH Report electronically signed by Marybel Kumar, Ph.D. I verify that I have examined all relevant slides/material s for the specimen(s) and rendered or confirmed the diagnosis. 01/08/2024 9:58 PM INSULATION BOARD COATER OPERATOR METH Frozen Intraoperative Report A. Synovium, right hip, excision: Synovial tissue, negative for acute inflammation. Signed by Marybel Kumar, Ph.D. 01/06/2024 2:27 PM 01/08/2024 9:58 PM INSULATION BOARD COATER OPERATOR METH Gross Description A. Received fresh labeled right hip is a 2.2 x 2.2 x 1.1 cm portion of pink-romero fibrous tissue. All submitted for frozen and permanent sections. Grossed by Yousif Hi M.S., PA([facility]). 01/08/2024 9:58 PM INSULATION BOARD COATER OPERATOR METH Block Summary A Right hip A1 Right hip -1 -frozen A2 Right hip -2 -frozen 01/08/2024 9:58 PM INSULATION BOARD COATER OPERATOR METH Interpretation FINAL DIAGNOSIS A. Synovium, right hip, excision: Synovial tissue with reactive changes, negative for acute inflammation. A portion of the testing process was performed at [facility] site [id number]. Digital imaging was used in the diagnostic assessment of this case. 01/08/2024 9:58 PM INSULATION BOARD COATER OPERATOR METH Tissue (Hip, Right) 01/06/2024 9:13 AM INSULATION BOARD COATER OPERATOR us Vel Vinson M.D., M.B.A. LAB SURG PATH LÓPEZ KNOWLES Final Result [facility] [address] [place] [address], [facility] METH [address] [place] [address] * Bacteria Culture, Aerobe / Anaerobe + Susc (01/06/2024 9:08 AM INSULATION BOARD COATER OPERATOR) Bacteria Cult, Aerobe/Anaerob e+Susc No growth after 14 days of incubation. 01/20/2024 12:02 PM INSULATION BOARD COATER OPERATOR DTL Hip, Right 01/06/2024 9:08 AM INSULATION BOARD COATER OPERATOR 01/06/2024 11:04 AM INSULATION BOARD COATER OPERATOR Comment:Specimen Source Site : Tissue Narrative [facility] - 01/20/2024 12:02 PM INSULATION BOARD COATER OPERATOR Bacterial Culture: Placed in Bactec aerobic and Bactec anaerobic bottles Vel Vinson M.D., M.B.A. LAB MICROBIOLOGY - GENERAL ORDERABLES Final Result Performing Organization Address City/[facility]/ZIP Co de Phone Number [facility] [address] [place] [address], [facility] [address] [place] [address] * Acid Fast Smear for Mycobacterium (01/06/2024 9:08 AM INSULATION BOARD COATER OPERATOR) Pathologist [facility] Acid Fast Smear For Mycobacterium Negative. 01/06/2024 6:16 PM INSULATION BOARD COATER OPERATOR DT Tissue (Hip, Right) 01/06/2024 9:08 AM INSULATION BOARD COATER OPERATOR Narrative [facility] - 01/06/2024 6:16 PM INSULATION BOARD COATER OPERATOR Bacterial Culture: Placed in Bactec aerobic and Bactec anaerobic bottles Vel Vinson M.D., M.B.A. LAB MICROBIOLOGY - GENERAL ORDERABLES Final Result [facility] [address] [place] [address], [facility] [address] [place] [address] * Glucose, POCT (01/06/2024 9:00 AM INSULATION BOARD COATER OPERATOR) Glucose, POCT, B 116 70 - 140 mg/dL 01/06/2024 9:02 AM INSULATION BOARD COATER OPERATOR PCDE Site ARTLINE 01/06/2024 9:02 AM INSULATION BOARD COATER OPERATOR PCDE Blood 01/06/2024 9:00 AM INSULATION BOARD COATER OPERATOR 01/06/2024 9:02 AM INSULATION BOARD COATER OPERATOR us Unknown Provider LAB POCT ORDERABLES-MANUAL Cata l Result [facility] [address] [place] [address], [facility] PCDE [facility] [address] [place] [address] * Type and Screen (with Reflex Antibody ID) (01/06/2024 6:30 AM INSULATION BOARD COATER OPERATOR) Pathologist [facility] ABORh O Pos Not applicable 01/06/2024 6:58 AM INSULATION BOARD COATER OPERATOR ETRM Antibody Screen Negative Negative 01/06/2024 7:13 AM INSULATION BOARD COATER OPERATOR ETRM Type & Screen Expiration 01/09/2024 23:59 01/06/2024 6:58 AM INSULATION BOARD COATER OPERATOR ETRM Testing Location [place] DEFAULT 01/06/2024 6:33 AM INSULATION BOARD COATER OPERATOR ETRM Blood (Blood, Venous) 01/06/2024 6:30 AM INSULATION BOARD COATER OPERATOR 01/06/2024 6:33 AM INSULATION BOARD COATER OPERATOR us Brittney IRWIN, P.A.-C. LAB BLOOD BANK TEST ORDERABLES Final Result Performing Organization Address City/[facility]/ZIP Co de Phone Number [facility] [address] [place] [address], [facility] ETRM [facility] [address] [place] [address] * Glucose, POCT (01/06/2024 6:06 AM INSULATION BOARD COATER OPERATOR) [facility] Glucose, POCT, B 118 70 - 140 mg/dL 01/06/2024 6:10 AM INSULATION BOARD COATER OPERATOR PCDE Site Capillary 01/06/2024 6:10 AM INSULATION BOARD COATER OPERATOR PCDE Blood 01/06/2024 6:06 AM INSULATION BOARD COATER OPERATOR 01/06/2024 6:11 AM INSULATION BOARD COATER OPERATOR us Unknown Provider LAB POCT ORDERABLES-MANUAL Cata l Result [facility] [address] [place] [address], [facility] PCDE [facility] POC [address] [place] [address] documented in this encounter Visit Diagnoses Diagnosis Infection 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 Total Hip Arthroplasty Subsequent Right Pain Hip Right [M25.551] Decline Functional Status [R53.81] Aftercare Following Explantation Of Hip Joint Prosthesis Infection Total Hip Arthroplasty Subsequent Right documented in this encounter Admitting Diagnoses Diagnosis Infection Total Hip Arthroplasty Subsequent Right Aftercare Following Explantation Of Hip Joint Prosthesis documented in this encounter Administered Medications Inactive Administered Medications - up to 3 most recent administrations Medication Order MAR Action Action Date Dose Rate Site acetaminophen tablet 1,000 mg (TylenoL) 1,000 mg, oral, Every 6 hours, First dose on Fri01/06/24 at 1700 Given 01/09/2024 6:10 AM INSULATION BOARD COATER OPERATOR 1,000 mg Given 01/08/2024 4:41 PM INSULATION BOARD COATER OPERATOR 1,000 mg Given 01/08/2024 10:49 AM INSULATION BOARD COATER OPERATOR 1,000 mg atorvastatin tablet 20 mg (Lipitor) 20 mg, oral, Daily at bedtime, First dose on Fri01/06/24 at 2100 Given 01/08/2024 9:52 PM INSULATION BOARD COATER OPERATOR 20 mg Given 01/07/2024 8:53 PM INSULATION BOARD COATER OPERATOR 20 mg Given 01/06/2024 8:18 PM INSULATION BOARD COATER OPERATOR 20 mg benzocaine-menthoL 15-3.6 mg per lozenge 1 lozenge (CepacoL) 1 lozenge, oral, As needed, sore throat, Starting on Fri01/06/24 at 1648 bisacodyL suppository 10 mg (Dulcolax) 10 mg, rectal, Daily PRN, constipation, Starting on Fri01/06/24 at 1648, Ordered sequence of administration: polyethylene glycol, then bisacodyl until BM achieved. Given 01/08/2024 4:41 PM INSULATION BOARD COATER OPERATOR 10 mg calcium carbonate chewable tablet 400 mg of calcium (Tums) 400 mg of calcium, oral, Every 2 hour PRN, indigestion, Starting on Fri01/06/24 at 1648, Doses listed are in mg of elemental calcium. Take with food. 500 mg calcium carbonate contains 200 mg of elemental calcium. carboxymethylcellulose 0.5 % ophthalmic solution 2 drop (Refresh Plus) 2 drop, both eyes, 4 times daily PRN, dry eyes, Starting on Fri01/06/24 at 1648 cefadroxil capsule 500 mg (Duricef) 500 mg, oral, 2 times daily, First dose on Fri01/07/24 at 1200, Indications: Bone and/or joint infectionIndications:Bone and/or joint infection Given 01/09/2024 8:11 AM INSULATION BOARD COATER OPERATOR 500 mg Given 01/08/2024 9:44 PM INSULATION BOARD COATER OPERATOR 500 mg Given 01/08/2024 9:36 AM INSULATION BOARD COATER OPERATOR 500 mg haloperidol lactate injection 1 mg (HaldoL) 1 mg, intravenous, Every 6 hours PRN, nausea, vomiting, Starting on Sharifa 01/08/24 at 2244, For 48 hours, Total of 3 doses in 24 hour period. RASS must be -2 or higher to administer. Reassess for nausea or vomiting after at least 10 minutes. If nausea or vomiting persists administer next ordered antiemetic medications (order for antiemetic medication administration ondansetron then haloperidol then prochlorperazine) Given 01/08/2024 11:24 PM INSULATION BOARD COATER OPERATOR 1 mg HYDROmorphone (PF) injection 0.2 mg (Dilaudid) 0.2 mg, intravenous, Every 1 hour PRN, severe pain or score 7-10 of 10, Starting on Fri01/06/24 at 2121, For 3 doses HYDROmorphone tablet 1 mg (Dilaudid) 1 mg, oral, Every 4 hours PRN, severe pain or score 7-10 of 10, Starting on Sharifa 01/08/24 at 0956, Does patient have renal impairment, frailty, or advanced age (avoid morphine) and unable to take oxycodone? No, Did the patient fail other oral opioids during hospitalization? Yes, Does the patient have documented allergies to oxycodone and/or morphine? No, Is the patient on hydromorphone chronically for pain? No Given 01/09/2024 8:19 AM INSULATION BOARD COATER OPERATOR 1 mg Given 01/08/2024 4:41 PM INSULATION BOARD COATER OPERATOR 1 mg Given 01/08/2024 10:49 AM INSULATION BOARD COATER OPERATOR 1 mg HYDROmorphone tablet 2 mg (Dilaudid) 2 mg, oral, Every 4 hours PRN, severe pain or score 7-10 of 10, Starting on Sharifa 01/08/24 at 0956, Does patient have renal impairment, frailty, or advanced age (avoid morphine) and unable to take oxycodone? No, Did the patient fail other oral opioids during hospitalization? Yes, Does the patient have documented allergies to oxycodone and/or morphine? No, Is the patient on hydromorphone chronically for pain? No insulin aspart U-100 injection 0-13 Units (NovoLOG FlexPen) 0-13 Units, subcutaneous, 3 times daily, First dose (after last modification) on Fri01/09/24 at 1200, Insulin Scale: Mild Correction Scale, 180 - 219: 2 units, 220 - 259: 3 units, 260 - 299: 4 units, 300 - 339: 5 units, 340 - 379: 6 units, 380 - 399: 7 units, Greater than 399: Call service writing Insulin orders insulin aspart U-100 injection 0-7 Units (NovoLOG FlexPen) 0-7 Units, subcutaneous, Daily at bedtime, First dose on Fri01/06/24 at 2100, Insulin Scale: Modified Bedtime Correction Scale, 220-259: 3 units, 260-299: 4 units, 300-339: 5 units, 340-379: 6 units, 380-399: 7 units, Greater than 399: Call service writing insulin orders Given 01/07/2024 9:51 PM INSULATION BOARD COATER OPERATOR 3 Units Left Upper Arm (Back ) Given 01/06/2024 9:40 PM INSULATION BOARD COATER OPERATOR 3 Units Ri ght Lower Abdomen insulin NPH injection 4 Units 4 Units, subcutaneous, Every evening, First dose on Fri01/09/24 at 1800 insulin NPH injection 8 Units 8 Units, subcutaneous, Every morning, First dose on Fri01/09/24 at 0900 Given 01/09/2024 9:54 AM INSULATION BOARD COATER OPERATOR 8 Units Left Lower Abdomen levETIRAcetam solution 750 mg (Keppra) 750 mg, oral, 2 times daily, First dose on Fri01/06/24 at 2100, Needs crushed/solution for swallowing Given 01/09/2024 8:11 AM INSULATION BOARD COATER OPERATOR 750 mg Given 01/08/2024 9:45 PM INSULATION BOARD COATER OPERATOR 750 mg Given 01/08/2024 9:41 AM INSULATION BOARD COATER OPERATOR 750 mg loratadine tablet 10 mg (Claritin) 10 mg, oral, Daily PRN, allergies, for opioid induced pruritus, Starting on Fri01/06/24 at 1648, Drug Monitoring Program: Pharmacist to adjust medication dosing based on indication and drug clearance factors. naloxone injection 0.2 mg (Narcan) 0.2 mg, intravenous, As needed, respiratory depression, Starting on Fri01/06/24 at 1648, For RASS Score -4 or less, respiratory rate of less than 8 breaths/min. Notify provider/service and rapid response team (if available at institution). ondansetron (PF) injection 4 mg (Zofran) 4 mg, intravenous, Every 6 hours PRN, nausea, vomiting, Starting on Sharifa 01/08/24 at 2244, For 48 hours, Reassess for nausea or vomiting after at least 10 minutes. If nausea or vomiting persists administer next ordered antiemetic medications (order for antiemetic medication administration ondansetron then haloperidol then prochlorperazine). Given 01/08/2024 10:51 PM INSULATION BOARD COATER OPERATOR [address] tablet 40 mg (Protonix) 40 mg, oral, Daily before morning meal, First dose on Fri01/07/24 at 0700, pantoprazole 40 mg oral daily was interchanged for omeprazole 20 or 40 mg oral daily Swallow whole. Do NOT crush, chew, or split tablet. povidone iodine 0.25% in NaCl 0.9% irrigation solution irrigation, Once in surgery, OR use only, Starting on Fri01/06/24 at 0635, For 1 dose, Intra-Op, IRRIGATION USE ONLY Given 01/06/2024 11:42 AM INSULATION BOARD COATER OPERATOR 1,000 mL Right Hip povidone iodine 0.25% in NaCl 0.9% irrigation solution irrigation, Once in surgery, OR use only, Starting on Fri01/06/24 at 0635, For 1 dose, Intra-Op, IRRIGATION USE ONLY Given 01/06/2024 10:10 AM INSULATION BOARD COATER OPERATOR 1,000 mL Right Hip prochlorperazine injection 5 mg (Compazine) 5 mg, intravenous, Every 6 hours PRN, nausea, vomiting, Starting on Sharifa 01/08/24 at 2244, For 48 hours, RASS must be -2 or higher to administer. Reassess for nausea/vomiting after at least 10 minutes. If nausea or vomiting persists administer next ordered antiemetic medications (order for antiemetic medication administration ondansetron then haloperidol then prochlorperazine) rivaroxaban tablet 10 mg (Xarelto) 10 mg, oral, Daily, First dose on Fri01/09/24 at 0900 Given 01/09/2024 8:11 AM INSULATION BOARD COATER OPERATOR 10 mg ROPivacaine (PF) 150 mg, EPINEPHrine 100 mcg, ketorolac 15 mg in NaCl 0.9% 60 mL injection (Arthroplasty Block 75-99.9 kg) 60 mL, infiltration, Once in surgery, OR use only, Starting on Fri01/06/24 at 0635, For 1 dose, Intra-Op, *Not for IV use* Given 01/06/2024 11:37 AM INSULATION BOARD COATER OPERATOR 60 mL Right Hip ROPivacaine (PF) 150 mg, EPINEPHrine 100 mcg, ketorolac 15 mg in NaCl 0.9% 60 mL injection (Arthroplasty Block 75-99.9 kg) 60 mL, infiltration, Once in surgery, OR use only, Starting on Fri01/06/24 at 0635, For 1 dose, Intra-Op, *Not for IV use* Given 01/06/2024 11:37 AM INSULATION BOARD COATER OPERATOR 60 mL Right Hip sennosides-docusate sodium 8.6-50 mg per tablet 1 tablet (Senokot-S) 1 tablet, oral, 2 times daily, First dose on Fri01/06/24 at 2100, Do not give if patient has diarrhea. Given 01/08/2024 10:04 AM INSULATION BOARD COATER OPERATOR 1 tablet Given 01/07/2024 8:53 PM INSULATION BOARD COATER OPERATOR 1 tablet Given 01/07/2024 8:42 AM INSULATION BOARD COATER OPERATOR 1 tablet documented in this encounter Active and Recently Administered Medications Times are shown in INSULATION BOARD COATER OPERATOR. Scheduled Medication Order 01/07/2024 01/08/2024 01/09/2024 acetaminophen tablet 1,000 mg (TylenoL) 1,000 mg, oral, Every 6 hours, First dose on Fri01/06/24 at 1700 0536 (Given - Provider: Joy Valles R.N.)1113 (Given - Provider: Bisi Varma R.N.)1657 (Given - Provider: Bisi Varma R.N.)2254 (Not Given - Provider: Bisi Varma R.N. - Reason: Patient/family refused) 0607 (Given - Provider: Joy Valles R.N.)1049 (Given - Provider: Marcela Johnson R.N.)1641 (Given - Provider: Marcela Johnson R.N.) 0057 (Not Given - Provider: Joy Valles R.N. - Reason: Patient/family refused - Comment: refused d/t nausea/vomiting. pt declines pain at this time. educated)0610 (Given - Provider: Joy Valles R.N.) atorvastatin tablet 20 mg (Lipitor) 20 mg, oral, Daily at bedtime, First dose on Fri01/06/24 at 2100 2053 (Given - Provider: Bisi Varma RBelkisN.) 2151 (Given - Provider: Jael RogersN.) cefadroxil capsule 500 mg (Duricef) 500 mg, oral, 2 times daily, First dose on Fri01/07/24 at 1200, Indications: Bone and/or joint infection 1113 (Given - Provider: Bisi Varma R.N.)2052 (Given - Provider: Jael RogersN.) 0936 (Given - Provider: Marcela Johnson R.N.)2144 (Given - Provider: Bisi Varma R.N.) 0811 (Given - Provider: Elsie rGady RBelkisNBelkis) ceFAZolin injection 2 g (Ancef) (COMPLETED) 2 g, intravenous, Every 8 hours, First dose on Fri01/06/24 at 1945, For 2 doses, Start within 8 hours of last IV dose. For immediate IV push administration, reconstitute vial per IVAG or package insert instructions. See IVAG for administration guidelines., Drug Monitoring Program: Pharmacist to adjust medication dosing based on indication and drug clearance factors., Indications: Prophylaxis, surgical 0255 (Given - Provider: oJy Valles R.N.) dexAMETHasone injection 8 mg (Decadron) (COMPLETED) 8 mg, intravenous, Once, On Fri01/07/24 at 0600, For 1 dose 0541 (Given - Provider: Jael LawrenceN.) enoxaparin injection 40 mg (Lovenox) (CANCELED) 40 mg, subcutaneous, Daily, First dose on Fri01/07/24 at 0900 0842 (Given - Provider: Arjun Fabian RBelkisN.) 0936 (Given - Provider: Marcela Johnson RBelkisNBelkis) insulin aspart U-100 (Carbohydrate Count) injection 0-20 Units (NovoLOG FlexPen) (COMPLETED) 0-20 Units, subcutaneous, Once, On Fri01/07/24 at 1215, For 1 dose, Simple or Complex Ratio: Simple, Carb Ratio - Simple (1 unit per __ grams of carbohydrates): 10 1153 (Given - Provider: Bisi Varma R.N.) insulin aspart U-100 (Carbohydrate Count) injection 0-20 Units (NovoLOG FlexPen) (CANCELED) 0-20 Units, subcutaneous, 3 times daily with meals, First dose (after last modification) on Fri01/07/24 at 1700, Simple or Complex Ratio: Simple, Carb Ratio - Simple (1 unit per __ grams of carbohydrates): 20 1929 (Given - Provider: Bisi Varma R.N.) insulin aspart U-100 (Carbohydrate Count) injection 0-20 Units (NovoLOG FlexPen) (COMPLETED) 0-20 Units, subcutaneous, Once, On Fri01/07/24 at 1530, For 1 dose, Simple or Complex Ratio: Complex, Carb Ratio - Breakfast (1 unit per __ grams of carbohydrates): 20, Carb Ratio - Lunch (1 unit per __ grams of carbohydrates): 20, Carb Ratio - Dinner (1 unit per __ grams of carbohydrates): 20 1620 (Given - Provider: Jael RogersNBelkis) insulin aspart U-100 (Carbohydrate Count) injection 0-20 Units (NovoLOG FlexPen) (CANCELED) 0-20 Units, subcutaneous, 3 times daily with meals, First dose (after last modification) on Fri01/08/24 at 0800, Simple or Complex Ratio: Simple, Carb Ratio - Simple (1 unit per __ grams of carbohydrates): 15 0955 (Given - Provider: Jael FernandesN.)1407 (Given - Provider: Marcela Johnson RBelkisN.)1855 (Given - Provider: Jael FernandesNBelkis) 0800 (Due) insulin aspart U-100 injection 0-13 Units (NovoLOG FlexPen) (CANCELED) 0-13 Units, subcutaneous, 3 times daily, First dose on Fri01/07/24 at 0800, Insulin Scale: Moderate Correction Scale, 140 - 179: 2 units, 180 - 219: 4 units, 220 - 259: 6 units, 260 - 299: 8 units, 300 - 339: 10 units, 340 - 379: 12 units, 380 - 399: 13 units, Greater than 399: Call service writing Insulin orders 0843 (Given - Provider: Arjun Fabian R.N.)1622 (Given - Provider: Bisi Varma R.N.)1933 (Given - Provider: Bisi Varma R.N.) 0944 (Given - Provider: Marcela Johnson R.N.)1407 (Given - Provider: Marcela Johnson R.N.)1843 (Not Given - Provider: Marcela Johnson R.N. - Reason: Order parameters not met) 0940 (Not Given - Provider: Elsie Grady R.NBelkis - Reason: Order parameters not met) insulin aspart U-100 injection 0-13 Units (NovoLOG FlexPen) 0-13 Units, subcutaneous, 3 times daily, First dose (after last modification) on Fri01/09/24 at 1200, Insulin Scale: Mild Correction Scale, 180 - 219: 2 units, 220 - 259: 3 units, 260 - 299: 4 units, 300 - 339: 5 units, 340 - 379: 6 units, 380 - 399: 7 units, Greater than 399: Call service writing Insulin orders insulin aspart U-100 injection 0-7 Units (NovoLOG FlexPen) 0-7 Units, subcutaneous, Daily at bedtime, First dose on Fri01/06/24 at 2100, Insulin Scale: Modified Bedtime Correction Scale, 220-259: 3 units, 260-299: 4 units, 300-339: 5 units, 340-379: 6 units, 380-399: 7 units, Greater than 399: Call service writing insulin orders 2150 (Given - Provider: Bisi Varma RBelkisN. - Comment: blood sugar 241) 2151 (Not Given - Provider: Bisi Varma R.N. - Reason: Order parameters not met - Comment: Blood sugar 120) insulin NPH injection 4 Units 4 Units, subcutaneous, Every evening, First dose on Fri01/09/24 at 1800 insulin NPH injection 8 Units (CANCELED) 8 Units, subcutaneous, Every morning, First dose on Fri01/08/24 at 1115 1235 (Given - Provider: Jael FernandesNBelkis) insulin NPH injection 8 Units 8 Units, subcutaneous, Every morning, First dose on Fri01/09/24 at 0900 0954 (Given - Provider: Elsie Grady RBelkisNBelkis) ketorolac injection 15 mg (ToradoL) (CANCELED) 15 mg, intravenous, Every 6 hours, First dose on Fri01/06/24 at 1830, For 4 doses, Adult IV push rate: Over 15 seconds. Peds IV push rate: Over 1 minute. Doses > 15 mg IV/IM are discouraged due to lack of additional analgesic benefit. 0053 (Given - Provider: Joy Valles R.N.)0541 (Given - Provider: Joy Valles R.N.) Lactated Ringer's bolus 500 mL (COMPLETED) 500 mL, intravenous, at 500 mL/hr, Administer over 1 Hours, Once, On Fri01/07/24 at 0415, For 1 dose 0425 (Bolus from Bag - Provider: Joy Valles R.N.) levETIRAcetam solution 750 mg (Keppra) 750 mg, oral, 2 times daily, First dose on Fri01/06/24 at 2100, Needs crushed/solution for swallowing 0842 (Given - Provider: Arjun Fabian RBelkisN.)2051 (Given - Provider: Jael RogersNBelkis) 0941 (Given - Provider: Marcela Johnson RBelkisNBelkis)214 (Given - Provider: Bisi Varma RWilma) 0811 (Given - Provider: Elsie Grady R.N.) lisinopriL tablet 5 mg 5 mg, oral, Daily, First dose on Fri01/07/24 at 0900, On hold since Fri01/07/2024 at 0642 until manually unheld 0642 (Held by provider - Provider: Trae Coffey M.D. - Comment: Hypotension)0900 (Dose Auto Held) 0900 (Dose Auto Held) 0900 (Dose Auto Held)1221 (Unheld by provider - Provider: Discharge Provider, Automatic) pantoprazole DR tablet 40 mg (Protonix) 40 mg, oral, Daily before morning meal, First dose on Fri01/07/24 at 0700, pantoprazole 40 mg oral daily was interchanged for omeprazole 20 or 40 mg oral daily Swallow whole. Do NOT crush, chew, or split tablet. 0537 (Not Given - Provider: Joy Valles R.N. - Reason: Patient/family refused) 0623 (Not Given - Provider: Joy Valles R.N. - Reason: Patient/family refused - Comment: pt stated he does not swallow whole pills well w/o being crushed. pt refused at this time, educated) 0618 (Not Given - Provider: Joy Valles R.N. - Reason: Patient/family refused) rivaroxaban tablet 10 mg (Xarelto) 10 mg, oral, Daily, First dose on Fri01/09/24 at 0900 0811 (Given - Provider: Elsie Grady RBelkisNBelkis) sennosides tablet 8.6 mg (Senokot) (CANCELED) 8.6 mg, oral, 2 times daily, First dose on Fri01/07/24 at 0900 0907 (Not Given - Provider: Arjun Fabian R.N. - Reason: Patient/family refused)2052 (Given - Provider: Bisi Varma RBelkisNBelkis) sennosides-docusate sodium 8.6-50 mg per tablet 1 tablet (Senokot-S) 1 tablet, oral, 2 times daily, First dose on Fri01/06/24 at 2100, Do not give if patient has diarrhea. 0842 (Given - Provider: Arjun Fabian R.N.)2052 (Given - Provider: Bisi Varma RBelkisN.) 100 (Given - Provider: Marcela Johnson RBelkisNBelkis)2146 (Not Given - Provider: Bisi Varma R.N. - Reason: Other - Comment: PATIENT HAVING LOOSE STOOLS) 0834 (Not Given - Provider: Elsie Grady RWilma - Reason: Contraindicated) Continuous Medication Order 01/07/2024 01/08/2024 01/09/2024 Lactated Ringer's (CANCELED) 20 mL/hr, intravenous, Continuous, Starting on Fri01/06/24 at 1330, PACU & Post-Op 1505 (New Bag - Provider: Bisi Varma RBelkisNBelkis) PRN Medication Order 01/07/2024 01/08/2024 01/09/2024 benzocaine-menthoL 15-3.6 mg per lozenge 1 lozenge (CepacoL) 1 lozenge, oral, As needed, sore throat, Starting on Fri01/06/24 at 1648 bisacodyL suppository 10 mg (Dulcolax) 10 mg, rectal, Daily PRN, constipation, Starting on Fri01/06/24 at 1648, Ordered sequence of administration: polyethylene glycol, then bisacodyl until BM achieved. 1641 (Given - Provider: Marcela Johnson RBelkisN.) calcium carbonate chewable tablet 400 mg of calcium (Tums) 400 mg of calcium, oral, Every 2 hour PRN, indigestion, Starting on Fri01/06/24 at 1648, Doses listed are in mg of elemental calcium. Take with food. 500 mg calcium carbonate contains 200 mg of elemental calcium. carboxymethylcellulose 0.5 % ophthalmic solution 2 drop (Refresh Plus) 2 drop, both eyes, 4 times daily PRN, dry eyes, Starting on Fri01/06/24 at 1648 haloperidol lactate injection 1 mg (HaldoL) 1 mg, intravenous, Every 6 hours PRN, nausea, vomiting, Starting on Sharifa 01/08/24 at 2244, For 48 hours, Total of 3 doses in 24 hour period. RASS must be -2 or higher to administer. Reassess for nausea or vomiting after at least 10 minutes. If nausea or vomiting persists administer next ordered antiemetic medications (order for antiemetic medication administration ondansetron then haloperidol then prochlorperazine) 4844 (Given - Provider: Joy Valles RBelkisN.) HYDROmorphone (PF) injection 0.2 mg (Dilaudid) 0.2 mg, intravenous, Every 1 hour PRN, severe pain or score 7-10 of 10, Starting on Fri01/06/24 at 2121, For 3 doses HYDROmorphone tablet 1 mg (Dilaudid)(Linked Group 1) 1 mg, oral, Every 4 hours PRN, severe pain or score 7-10 of 10, Starting on Sharifa 01/08/24 at 0956, Does patient have renal impairment, frailty, or advanced age (avoid morphine) and unable to take oxycodone? No, Did the patient fail other oral opioids during hospitalization? Yes, Does the patient have documented allergies to oxycodone and/or morphine? No, Is the patient on hydromorphone chronically for pain? No 1049 (Given - Provider: Marcela Johnson R.N.)1641 (Given - Provider: Marcela Johnson R.N.) 0819 (Given - Provider: Elsie Grady R.N.) HYDROmorphone tablet 2 mg (Dilaudid)(Linked Group 1) 2 mg, oral, Every 4 hours PRN, severe pain or score 7-10 of 10, Starting on Fri01/08/24 at 0956, Does patient have renal impairment, frailty, or advanced age (avoid morphine) and unable to take oxycodone? No, Did the patient fail other oral opioids during hospitalization? Yes, Does the patient have documented allergies to oxycodone and/or morphine? No, Is the patient on hydromorphone chronically for pain? No 1049 (See Alternative - Provider: Marcela Johnson R.N.)1641 (See Alternative - Provider: Marcela Johnson R.N.) 0819 (See Alternative - Provider: Elsie Grady R.N.) loratadine tablet 10 mg (Claritin) 10 mg, oral, Daily PRN, allergies, for opioid induced pruritus, Starting on Fri01/06/24 at 1648, Drug Monitoring Program: Pharmacist to adjust medication dosing based on indication and drug clearance factors. naloxone injection 0.2 mg (Narcan) 0.2 mg, intravenous, As needed, respiratory depression, Starting on 01/06/24 at 1648, For RASS Score -4 or less, respiratory rate of less than 8 breaths/min. Notify provider/service and rapid response team (if available at institution). ondansetron (PF) injection 4 mg (Zofran) 4 mg, intravenous, Every 6 hours PRN, nausea, vomiting, Starting on Sharifa 01/08/24 at 2244, For 48 hours, Reassess for nausea or vomiting after at least 10 minutes. If nausea or vomiting persists administer next ordered antiemetic medications (order for antiemetic medication administration ondansetron then haloperidol then prochlorperazine). 2251 (Given - Provider: Bisi Varma RWilma) oxyCODONE IR tablet 10 mg (Roxicodone) (CANCELED)(Linked Group 2) 10 mg, oral, Every 4 hours PRN, severe pain or score 7-10 of 10, Starting on e 01/06/24 at 1648, Second line therapy. If patient is greater than 7 after 2 hours, call service for new order. May also administer lower pain scale value dose of prescribed medication based on patient request. 1440 (Given - Provider: Bisi Varma RTea.) prochlorperazine injection 5 mg (Compazine) 5 mg, intravenous, Every 6 hours PRN, nausea, vomiting, Starting on Sharifa 01/08/24 at 2244, For 48 hours, RASS must be -2 or higher to administer. Reassess for nausea/vomiting after at least 10 minutes. If nausea or vomiting persists administer next ordered antiemetic medications (order for antiemetic medication administration ondansetron then haloperidol then prochlorperazine) Linked Groups Order Group 1: HYDROmorphone tablet 1 mg (Dilaudid)Jump to med 1 mg, oral, Every 4 hours PRN, severe pain or score 7-10 of 10, Starting on Sharifa 01/08/24 at 0956, Does patient have renal impairment, frailty, or advanced age (avoid morphine) and unable to take oxycodone? No, Did the patient fail other oral opioids during hospitalization? Yes, Does the patient have documented allergies to oxycodone and/or morphine? No, Is the patient on hydromorphone chronically for pain? No Or HYDROmorphone tablet 2 mg (Dilaudid)Jump to med 2 mg, oral, Every 4 hours PRN, severe pain or score 7-10 of 10, Starting on Sharifa 01/08/24 at 0956, Does patient have renal impairment, frailty, or advanced age (avoid morphine) and unable to take oxycodone? No, Did the patient fail other oral opioids during hospitalization? Yes, Does the patient have documented allergies to oxycodone and/or morphine? No, Is the patient on hydromorphone chronically for pain? No Group 2: oxyCODONE IR tablet 5 mg (Roxicodone) (CANCELED) 5 mg, oral, Every 4 hours PRN, moderate pain or score 4-6 of 10, Starting on Fri01/06/24 at 1648, Second line therapy Or oxyCODONE IR tablet 10 mg (Roxicodone) (CANCELED)Jump to med 10 mg, oral, Every 4 hours PRN, severe pain or score 7-10 of 10, Starting on Fri01/06/24 at 1648, Second line therapy. If patient is greater than 7 after 2 hours, call service for new order. May also administer lower pain scale value dose of prescribed medication based on patient request. documented in this encounter Care Teams Plate Gauger Relationship Specialty Start Date End Date Elsewhere, Pcp PCP - General Internal Medicine 10/03/23 documented as of this encounter
--- OUTSIDE RECORDS SUMMARY | 2024-01-22 16:35 | XMS_ITS | Encounter Summary ---
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 [address] [place] [address] Phone: tel: fax: Referral ID Status Reason Start Date Expiration Date Visits Re quested Visits Authorized [id number] 1 1 Encounter Details Date Type Department Care Team (Latest Contact Info) Description 01/06/2024 5:34 AM VENEREAL DISEASE INVESTIGATOR - 01/09/2024 10:06 AM [facility], Ninth Floor [address] [place] [address] Vel Vinson M.D., M.B.A. [address] [place] [id number] Pain Hip Right [M25.551] (Primary Dx); Infection Total Hip Arthroplasty Subsequent Right; Decline Functional Status [R53.81] Discharge Disposition: Longterm Facility Social History Tobacco Use Types Packs/Day Years Used Date Smoking Tobacco: Never Passive Smoke Exposure: Never Smokeless Tobacco: Never Alcohol Use Standard Drinks/Week Comments Never 2 (1 standard drink = 0.6 oz pur e alcohol) [facility] Utilities Answer Date Recorded In [...] your living situation today? I have a [facility] place to live 01/09/2024 Sex and Gender Information Value Date Recorded Sex Assigned at Male 07/26/2022 1:30 PM CDT Legal Sex Male 6:41 AM VENEREAL DISEASE INVESTIGATOR Gender Identity Male 07/26/2022 1:32 PM CDT Sexual Orientation Straight 07/26/2022 1: 32 PM CDT documented as of this encounter Last Filed Vital Signs Vital Sign Reading Time Taken Comments Blood Pressure 150/80 01/09/2024 9:00 AM VENEREAL DISEASE INVESTIGATOR Pulse 59 01/09/2024 9:00 AM VENEREAL DISEASE INVESTIGATOR Temperature 36.5 C (97.7 F) 01/09/2024 9:00 AM VENEREAL DISEASE INVESTIGATOR Respiratory Rate 16 01/09/2024 9:00 AM VENEREAL DISEASE INVESTIGATOR Oxygen Saturation 97% 01/09/2024 9:00 AM VENEREAL DISEASE INVESTIGATOR Inhaled Oxygen Concentration - - Weight 91 kg (200 lb 9.9 oz) 01/08/2024 1:22 PM VENEREAL DISEASE INVESTIGATOR Height 181 cm (5' 11.26) 01/08/2024 1:22 PM VENEREAL DISEASE INVESTIGATOR Body Mass Index 27.78 01/08/2024 1:22 PM VENEREAL DISEASE INVESTIGATOR documented in this encounter Discharge Summaries * Trae Coffey M.D. - 01/09/2024 6:55 AM CST DISCHARGE SUMMARY BRIEF OVERVIEW Hospital: [facility] Discharge Provider: Vel Vinson M.D. Primary Team: [...] FEMORAL PLUS ACETABULAR HIP. Vel Vinson M.D., Trae Disla M.D.Steen, Emily L, MPAS, P.A.-C. RST ROEI OR DISCHARGE DISPOSITION Longterm Facility [3] ACTIVE ISSUES REQUIRING FOLLOW UP OUTPATIENT FOLLOW UP Scheduled Appointments 02/12/2024 2:45 PM RST ORS SPM INTAKE VISIT Admitting/Central Scheduling 02/19/2024 10:45 AM DX [facility] [address] Radiology 02/19/2024 11:45 AM Vel Vinson M.D., M.BBernie. Orthopedic Surgery 02/19/2024 1:45 PM US ROGO [...] FEMORAL PLUS ACETABULAR HIP. Vel Vinson M.D., Trae Disla M.D.Steen, Emily L, MPAS, P.A.-C. RST ROJAIMIE OR Estevan Lester was taken to the operative room [...] IP CONSULT TO DIABETES IP CONSULT TO FACILITY ENVIRONMENTAL TECHNICIAN WOUND CARE IP CONSULT TO DIETITIAN IP CONSULT TO DIETITIAN CONDITION AT DISCHARGE stable Discharge instructions were provided to the patient and caregiver(s). Total time spent in discharge services today: 5 minutes. REAL DISEASE INVESTIGATOR REAL DISEASE INVESTIGATOR documented in this encounter Discharge Instructions * Discharge Instr - Diet* Marbella Gaona M.S., FILOMENA, LD - 01/08/2024 2:10 PM VENEREAL DISEASE INVESTIGATOR NUTRITION Nutrition dismissal summary completed by: Sarina [...] consume adequate calories Vitamin/mineral supplementation as prescribed REAL DISEASE INVESTIGATOR REAL DISEASE INVESTIGATOR * Attachments The following attachments cannot be sent through Care Everywhere. * Cefadroxil (By mouth) (Cook Islander) * Hydromorphone (By mouth) (Cook Islander) documented in this encounter Medications at Time [...] to SNF this morning. Please contact Dr. Karel regan during daytime hours or [facility] at [phone] with any questions or concerns regarding this patient., REAL DISEASE INVESTIGATOR REAL DISEASE INVESTIGATOR * Gino Mclain P.T., D.P.T. - 01/08/2024 11:39 AM CST Physical Therapy Inpatient Treatment Note SUBJECTIVE Patient's Name: Estevan Lester Referring/Attending: Vel Vinson M.D. Medical Diagnosis: Infection Total Hip Arthroplasty Subsequent Right [T84.51XD] Aftercare Following Explantation Of Hip Joint Prosthesis [Z47.32] Reason for Referral: PT Evaluate and Treat PT ortho eval and treat-hip Onset Date: 01/06/24 Payor: [facility] / Plan: [facility] / Product Type: Medicaid HMO / [...] Instructed, Educated, Therapist assisted Comments: Patient completed bko-pq-npgax transfer 2 times from the bed during [...] needs met and questions answered. Outcome Measures -[facility] Inpatient Short Form: AM-PAC Basic Mobility [...] -PAC Basic Mobility (V.2) Raw Score: 7 AM-[facility] Basic Mobility (V.2) Standardized Score: 19.39 Interpretation: Clinicians answer the -[facility] Inpatient Short Form based on observed [...] Progressing PT Goal #2: Patient will perform crk-rw-mstrf transfer with least restrictive device with moderate [...] Time (min): 17 min Gino Mclain P.T., D.P.T. REAL DISEASE INVESTIGATOR * Jose Alejandro Emerson Pharm.D., R.Ph. - [...] barriers to discharge: none. Jose Alejandro Emerson PharmMayela, R.Ph. [phone] REAL DISEASE INVESTIGATOR * Annamaria Medellin R.N. - 01/08/2024 9:33 AM CST SUBJECTIVE Following for Discharge Planning: Longterm Facility Reconnect and Transportation OBJECTIVE The patient is currently hospitalized on [address] [place] [address], Room [address] status post orthopedic surgery on 01/06/[address] Vinson's Service. ASSESSMENT / PLAN ASSESSMENT The Nurse Conventions Assistant met with the patient and his sister, Lor. The Nurse Conventions Assistant shared that she received a message from the patient's orthopedic service provider indicating that the patient is close to being medically ready to discharge. The Nurse Conventions Assistant has arranged discharge transportation tentatively for tomorrow pending medical readiness. The Nurse Conventions Assistant has updated the facility. [employer] transportation has been arranged for Friday01/09/24 at 10:00 AM if medically ready to discharge. Please contact Case Management if patient is not medically ready, so that transportation can be postponed. [employer] ([phone]). Patient has transportation benefits. A armored car guard and driver will meet the patient in their hospital room with a stretcher at time of transport. Patient to return to: Destination - Admitted Since 01/06/2024 Service Provider Services Address Phone Fax Patient Preferred [facility]term [address] [place] [phone] -- Contact: Nursing Patient has a paid bedhold. Facility can manage IV antibiotics if the patient has a PICC line. Facility can manage a wound vac. Facility preferred wound vac type: case by case Facility prefers patient return by 12:00 PM . Facility cannot accept weekend readmissions. COVID screening needed before patient can return: no Facility oxygen provider is [facility] (phone [phone], fax [phone]) . Was the patient on oxygen at your facility: no Transportation to be provided by stretcher van transport. Conventions Assistant : to arrange transportation and transport oxygen [...] all narcotics as well as e-scribing to [facility] in [place], [place]. Phone: - option 2, Fax: If transport oxygen is needed, work with nursing and respiratory therapy to complete an oxygen prescription. After Visit Summary to include: All discharge medications including dosage, times for administration, diagnosis, and stop date. Ongoing care - wound care, infection precautions and phone numbers to call. Conventions Assistant : Reviewed patient's insurance coverage for the services noted above. The patient's sister appear(s) to have an understanding of this. Will continue to follow and assist if needs arise Annamaria Medellin R.N. 01/08/24 REAL DISEASE INVESTIGATOR REAL DISEASE INVESTIGATOR * Trae Coffey M.D. - 01/08/2024 6:57 [...] Dr. Karel regan during daytime hours or [facility] at [phone] with any questions or concerns regarding this patient., REAL DISEASE INVESTIGATOR REAL DISEASE INVESTIGATOR * Henny Garcia R.N., CMoyCBelkisN. - 01/07/2024 2:38 PM CST [facility] Wound RN consulted to assess Estevan Lester skin alterations. Wound assessment, pain, andBraden score noted in the flowsheet. The patient consented to photography of the affected area for clinical trending purposes. Images were taken and are available in QREADS. History: Per chart review, Mr. Estevan Lester is a 59 y.o. male status post hip suglnhtxcrevwh08/19/2024 with Orthopedic Surgery [facility] Service. Medical comorbidities include high-grade bilateral internal [...] bleed 2/2 Oralia-Corado tear s/p EGD 11/03/23. [facility] Wound RN consulted for assessment and recommendations [...] *Signs of Infection None *Wound Bed Open;Partial thickness;[place] Tissue Exposed None Odor None *Exudate Amount None Caroline-wound Assessment Blanchable erythema;Painful;[place] Treatments Cleansed;Site care Periwound Treatment Cleansed (Comment);Liquid skin protectant Wound Cleansed with Normal saline *Primary Dressing Wound gel (Plurogel) *Primary Dressing Frequency of Change Daily & PRN Primary Dressing Changed New Primary Dressing Status Clean;Intact *Secondary Dressing Foam (Mepilex sacral border) *Secondary Dressing Frequency of Change Every third day & PRN Secondary Dressing Changed New Secondary Dressing Status Clean;Dry;Intact Changed by Wound windchill administrator;Unit based nurse Lengthy Treatment > 30 minutes > 30 minutes Ongoing management Nursing;Wound/licensed massage practitionerautomatic quilling machine operator done by WOC RN? Yes BWAT Size [...] None Unable to Measure Y *Wound Bed Open;[place] Tissue Exposed None Odor None *Exudate Amount None Caroline-wound Assessment Maceration;Denuded;[place] Treatments Cleansed;Liquid skin protectant Periwound Treatment Cleansed [...] medial coccyx with Vashe wound cleanser and 9h2upges. Pat dry. -Apply Sureprep liquid skin protectant [...] Henny Garcia R.N., Cristal 01/07/24 2:39 PM VENEREAL DISEASE INVESTIGATOR REAL DISEASE INVESTIGATOR REAL DISEASE INVESTIGATOR * Chio Peoples - 01/07/2024 2:18 PM [...] able/appropriate. Cosigned by Olga Lidia Lara O.T., O.T.D. at 01/07/2024 3:44 PM VENEREAL DISEASE INVESTIGATOR REAL DISEASE INVESTIGATOR REAL DISEASE INVESTIGATOR * Jose Alejandro Emerson Pharm.D., R.Ph. - 01/07/2024 9:42 AM CST Pharmacist [...] medications: reviewed. Held: Aspirin, Insulin NPH, Lisinopril (APR hold), Nystatin, Xarelto. Changed: none. Patient own [...] barriers to discharge: none. Jose Alejandro Emerson PharmEdilma., R.Ph. [phone] REAL DISEASE INVESTIGATOR * Trae Coffey M.D. - 01/07/2024 7:13 [...] Dr. Karel regan during daytime hours or [facility] at [phone] with any questions or concerns regarding this patient., REAL DISEASE INVESTIGATOR * Trae Coffey M.D. - 01/06/2024 8:32 [...] Dr. Karel regan during daytime hours or [facility] at [phone] with any questions or concerns regarding this patient., REAL DISEASE INVESTIGATOR * Gino Mclain P.T., D.P.T. - 01/06/2024 5:31 PM CST 01/06/24 1731 Reason Therapy Missed Reason Therapy Missed Medical hold PT attempted to work patient in the evening after he arrived at his room. Patient was very somnolent and unable to meaningfully participate in a physical therapy evaluation tonight. PT will evaluatetomorrow, 01/07/2024, as safe and appropriate. REAL DISEASE INVESTIGATOR * Noam Richardson Jr., PharmMayela, R.Ph. - 01/06/2024 6:24 AM CST Images from the original note were not included. Admission Medication History Note Adherence issues: No concerns Medication list source: Family member and [address] [place] [address] RN ([phone]) Medication related information: Aspirin and Xarelto last doses were on 01/01 Held Lisinopril and insulin this AM Keppra given around 0300 today Prior to Admission Medications Med List Status: Pharmacy Complete Set By: Noam Richardson Jr., PharmEdilma., R.Ph. at 01/06/2024 6:24AM Taking? Last Dose [...] by mouth 2 (two) times a day. REAL DISEASE INVESTIGATOR documented in this encounter Consult Notes * Chio Peoples - 01/08/2024 3:43 PM CST Occupational Therapy Acute Hospital Inpatient Evaluation/Treatment [...] 59 y.o. male who was admitted to [facility] in [place] on 01/06/2024 for Infection Total Hip Arthroplasty [...] From: Facility staff, Family Type of Home: [facility] facility Home Layout: Able to live on [...] assistance Driving: Does not drive Level of [place]: Needs assistance (Patient uses wheelchair to mobilize, [...] upper extremity within functional limits Outcome Measures: AM-[facility] Inpatient Short Form: Putting on and taking [...] at or below 17 Clinicians answer the -[facility] Inpatient Short Form based on observed [...] his (unaffected) right lower extremity while standing. P jose juan did not demonstrate unilateral neglect when engaging [...] functional activity, Self-care/home management, Neuromuscular re-education, Orthosis [id number], Manual therapy Occupational Therapy Attestation Statement: Patient [...] Lara O.T., O.T.D. at 01/08/2024 8:07 PM VENEREAL DISEASE INVESTIGATOR REAL DISEASE INVESTIGATOR REAL DISEASE INVESTIGATOR Associated attestation - Olga Lidia Lara O.T., O.T.D. - 01/08/2024 8:07 PM VENEREAL DISEASE INVESTIGATOR This therapist has reviewed all documentation and [...] about patient's nutritional care please contact pager [phone] on weekdays or weekends/holidays. NUTRITION ASSESSMENT: Mr. [...] Wound Healing, Weight Status, Pertinent Labs, Chewing/Swallowing REAL DISEASE INVESTIGATOR * Gino Mclain P.T., D.P.T. - 01/07/2024 1:48 PM CST Physical Therapy Inpatient Evaluation/Treatment SUBJECTIVE Patient's Name: Estevan White Trevon Referring/Attending Provider: Vel Vinson M.D. Medical Diagnosis: Infection Total Hip Arthroplasty Subsequent Right [T84.51XD] Aftercare Following Explantation Of Hip Joint Prosthesis [Z47.32] Reason for Referral: PT Evaluate and Treat PT ortho eval and treat-hip Onset Date: 01/06/24 Payor: [facility] / Plan: [facility] / Product Type: Medicaid HMO / [...] PELVIS.; Surgeon: Vel Vinson M.D., M.B.A.; Location: [facility] OR History of Present Illness: Status post right ISRRAEL revision performed on 01/06/[address] Vel Vinson. History of osteoarthritis, ISRRAEL with infection and subsequent spacer placement, CVA with residual right-sided weakness, peripheral arterial disease, diabetes mellitus type 2, and hypertension. Prior Function/Occupational Profile Lives With: Other (Comment) (Has been staying at a fdc facility for roughly 7 months) Receives Help From: Facility staff ADL Assistance: Required assistance IADL/Homemaking Assistance: Required assistance Driving: Does not drive Prior Mobility/Functional Transfers Level of [place]: Needs assistance Gait Devices/Wheelchair Used: Manual wheelchair, Front wheeled walker Gait Devices/Wheelchair Used Comments: Utilize a front wheeled walker to pivot to and from wheelchair Home Equipment Bathroom Equipment: Grab bars in shower, Shower chair with back, Grab bars around toilet, Built-in shower seat Home Living Type of Home: [facility] facility Home Layout: One level, Able to [...] transfer. He otherwise did well utilizing a pivotingtechnique without cuing and continued to require moderate [...] needs met and questions answered. Outcome Measures -[facility] Inpatient Short Form: -[facility] Basic Mobility (V.2) How much help [...] Total AM-PAC Basic Mobility (V.2) Raw Score: 7 AM-PAC Basic Mobility (V.2) Standardized Score: 19.39 Interpretation: Clinicians answer the AM-PAC Inpatient Short Form [...] Progressing PT Goal #2: Patient will perform gkp-re-jpdze transfer with least restrictive device with moderate [...] (min): 26 min Gino Mclain P.T., D.P.T. REAL DISEASE INVESTIGATOR * Annamaria Medellin R.N. - 01/07/2024 1:02 PM CSTAssociated Order(s): IP CONSULT TO CARE MANAGEMENT; IP CONSULT TO CARE MANAGEMENT; IP CONSULT TO CARE MANAGEMENT Discharge Planning Assessment SUBJECTIVE Assessment Information Referral Source: Early Screen for Discharge Planning Referral Reason: Discharge Planning Previous assessment done on: 12/08/23 Previous assessment done by: Julianne Rodrigez RN, CM Primary Language: Cook Islander Person(s) present during interview: Person(s) Present During Interview: sibling, Lor History of Present Illness #1 Infection Total Hip Arthroplasty Subsequent Right #2 Aftercare Following Explantation Of Hip Joint Prosthesis Social History Support System: family members Primary Caregiver: facility staff Finance/Insurance Primary insurance: [facility] Secondary insurance: N/A benefits: No Advance Directives Legal Decision Maker: Self Advance Directives: N/A Advance Directives Status: N/A OBJECTIVE Baseline Functional Status Baseline Activities of Daily Living Mobility: Requires lifting device Dressing: Dependent Feeding: Independent Bathing: Dependent Grooming: Dependent Toileting: Dependent Behavior: Appropriate, Pleasant, Calm, Cooperative, Oriented Communication: Talks, Understands speaking, Understands [place] Islander Shopping: Dependent Medication Management: Needs assistance Who is managing your medication at home?: Other (Comment) (SNF facility staff) Housekeeping: Dependent Meal Prep: Needs assistance Assistive Devices: Wheelchair - manual, Lift device Baseline Services/Resources Primary care clinic and provider: [facility] Role and Specialty Contact Info William Edwards M.D. Referring Provider (Family Medicine) Additional Resources: N/A Anticipated Needs Functional Status: Bathing, Dressing, Grooming/hygeine, Toileting, Mobility, Meal preparation, Medication set-up/administration, Housekeeping, Shopping, Transportation use (drive car, use taxi/bus) Assistive Devices: None Anticipated Modifications to the Patient's Home: None Transportation Needs: Stretcher van Does the patient need discharge transport arranged?: Yes Has discharge transport been arranged?: No Transport Provided By: [facility] [employer] Anticipated Discharge Destination: Longterm Facility ASSESSMENT / PLAN Assessment: The channel cementer outsole machine met with Estevan Lester to discuss his current hospitalization and home going needs. The patient was accompanied by sister, Lor . The patient was was unable to participate so therefore the channel cementer outsole machine discussed patient's history, current hospitalization, and discharge planning needs with his sister, Lor. The role of channel cementer outsole machine was reviewed. The patient's sister reviewed his prior level of care and support system. The patient receives support from his siblings . The patient's sister described his living environment as a fdc facility with level entry. Housekeeping, grocery shopping, meal prep, and other household responsibilities have previously been completed by facility staff . channel cementer outsole machine discussed the patient's potential needs at dismissal based on their home setting, previous needs and responsibilities, homebound status, and relevant assessments with the patient's sister . The patient will be safe and supported to return to a [facility] when medically ready. Support will be provided by his sister, Lor, and facility staff. The patient's sister demonstrated understanding when discussing his home going plans andanticipated needs. The Nurse Conventions Assistant met with the patient to address the consult to Care Management. Assessment questions were completed with the patient's sister, Lor. She does have an MASSIEL on file. From chart review, it appears she is the patient's primary contact and co-legal guardian effective 09/05/23. Sheconfirmed that the patient resides at [facility] fdc [facility] and he has apaid bedhold. She has been working with [facility] social media job titles, [employer] ([facility]). Lor verbalized agreement with her brother returning to the facility when he is medically ready to discharge and asked that discharge transportation is arranged with [employer] when a discharge d ate is known. At this time, the care team anticipates the patient requires the following service(s) to be reconnected: fdc facility. The patient's sister identified the following as their current vendor(s): [facility]. After reviewing the patient's chart and meeting with the patient's sister, the channel cementer outsole machine deemed the LACE+/readmission questions were not necessary. The patient's sister reports understanding that he will dismiss from the hospital when medically stable. Pending hospital course and medical readiness, no barriers to dismissal have been identified at this time. Plan: The patient's sister agrees with the following plan. Patient's anticipated discharge disposition is: Longterm Facility Reconnected: Completed Patient to return to: Destination - Admitted Since 01/06/2024 Service Provider Services Address Phone Fax Patient Preferred [facility] [address] [place] [phone] -- Contact: Nursing Patient has a paid bedhold. Facility can manage IV antibiotics if the patient has a PICC line. Facility can manage a wound vac. Facility preferred wound vac type: case by case Facility prefers patient return by 12:00 PM . Facility cannot accept weekend readmissions. COVID screening needed before patient can return: no Facility oxygen provider is [facility] (phone [phone], fax [phone]) . Was the patient on oxygen at your facility: no Transportation to be provided by stretcher van transport. Conventions Assistant : to arrange transportation and transport oxygen [...] infection precautions and phone numbers to call. Conventions Assistant : Reviewed patient's insurance coverage for the services noted above. The patient's sister appear(s) to have an understanding of this. Will continue to follow and assist if needs arise. Transportation upon dismissal will be provided by [employer]. When a discharge date is known Care Management will arrange transportation . channel cementer outsole machine recommended nothing at this time . channel cementer outsole machine provided Care Management Brochure ([id number]) and information regarding the dismissal process. channel cementer outsole machine placed or requested the following hospital-based consult orders and/or referrals: None. channel cementer outsole machine encouraged the patient to reach out with any questions/concerns. 7. channel cementer outsole machine will continue to assess for homegoing needs with the interdisciplinary team. Signed by: Annamaria Medellin R.N. 01/07/2024 REAL DISEASE INVESTIGATOR REAL DISEASE INVESTIGATOR * Albert Lay, BALL POINTS INSPECTOR, C.N.P., D.N.P. - 01/07/2024 10:07 AM VENEREAL DISEASE INVESTIGATOR Associated Order(s): Diabetes consult (hospital) SUBJECTIVE Diabetes [...] glucose checked twice daily by staff at TCU. Patient states his blood glucosetrends remain within [...] Thank you for the consult. DCS pager [facility] [phone] will follow. Call primary service for diabetes concerns between 6:30 p.m. and 6:30 a.m. Primary service to contact instrumentation instructor Endocrinology fellow via hospital mixing tank operator for questions. REAL DISEASE INVESTIGATOR documented in this encounter Nursing Notes * [...] Patient was escorted off the unit with [employer] stretchers transport service. Paper scripts sent with sister. Patient discharged. Elsie Grady R.N. REAL DISEASE INVESTIGATOR REAL DISEASE INVESTIGATOR documented in this encounter OR Notes * [...] and placement of articulating antibiotic spacer. A first helper actively participated and was necessary for one [...] as 1 frozen specimen that came back nega tive for acute inflammation. There was no evidence [...] made sure it had excellent axial rotational stability.Prior to inserting this and prior to reaming [...] reduced. It was well secured with the cable.We then placed the 85-mm proximal body in the appropriate anteversion. We then trialed with the +7,28-mm head and the outer diameter 50-mm head. [...] locking screw and confirmed this was engaged. Dye Feeder was then utilized. We then assembled the realdual-mobility head bearing with a 28 +7-mm head that was press-fit into the outer 50-mm highly cross-linked polyethylene liner head. This dual mobility head construct was then press-fit onto a clean,dry trunnion. Again, hip was then reduced. During reduction of the hip we did notice that there wasa crack of the posterior aspect of his [...] Vel Vinson M.D. CT CT Job ID: [id number] REAL DISEASE INVESTIGATOR documented in this encounter Miscellaneous Notes * Documentation Clarification - Trae Coffey M.D. - 01/09/2024 10:06 AM VENEREAL DISEASE INVESTIGATOR PROVIDER RESPONSE TEXT: To clarify, the appropriate [...] *Signs of Infection None *Wound Bed Open;Partial thickness;[place] Tissue Exposed None Odor None *Exudate Amount None Caroline-wound Assessment Blanchable erythema;Painful;[place] Treatments Cleansed;Site care Periwound Treatment Cleansed (Comment);Liquid [...] by: Trae Coffey M.D. 01/21/2024 9:43 AM REAL DISEASE INVESTIGATOR * Documentation Clarification - Trae Coffey M.D. - 01/09/2024 10:06 AM VENEREAL DISEASE INVESTIGATOR PROVIDER RESPONSE TEXT: To clarify, the appropriate [...] Estimated blood loss 900 mL. (Karel) (01/05) Order Transfuse Red Blood Cells 1 Units. (Zabrina) (01/06) Ortho PN Status post hip reimplantation yesterday 01/06/2024. Progressing appropriately. Will receive 2u pRBC this morning for Hgb 6.8. (Alexx) 01/06) Order Transfuse Red Blood Cells 2 Units. . (Alexx) (01/07) Order CBC with Differential, Blood. (Alexx) - [...] by: Trae Coffey M.D. 01/21/2024 9:43 AM REAL DISEASE INVESTIGATOR * Hospital Course - Trae Coffey M.D. - 01/08/2024 6:54 AM CST Surgery Information This Encounter Past Procedures (01/08/2023 to Today) Date Procedures Providers Loc / Dept 01/06/2024 ARTHROPLASTY REVISION FEMORAL PLUS ACETABULAR HIP. Vel Vinson M.D., M.B.A.Trae Coffey M.D.Brittney Piña MPAS, P.A.-C. Billie DANIELAJAIMIE OR Estevandeven Lester was taken to the operative room [...] and any other co-managing teams dated 01/08/2024. REAL DISEASE INVESTIGATOR documented in this encounter Plan of Treatment Upcoming Encounters Date Type Department Care Team (Latest Contact Info) Description 01/27/2024 12:30 PM VENEREAL DISEASE INVESTIGATOR Appointment Department of Orthopedic Surgery in [place], [place] [address] [place] [phone] Lizeth Joe MPAS, P.A.-C. [address] [place] [phone] Discharge Disposition: Home or Self Care 02/19/2024 1:45 PM VENEREAL DISEASE INVESTIGATOR Appointment Department of Radiology, [facility], in [place], [place] [address] [place] [phone] Fantasma Butt M.D. [address] [place] [phone] 02/20/2024 11:00 AM VENEREAL DISEASE INVESTIGATOR Virtual Visit Department of Radiology, [facility], in [place], [place] [address] [place] [phone] Radha Ojeda P.A.-C., M.S. [address] [place] [phone] 04/13/2024 2:00 PM VENEREAL DISEASE INVESTIGATOR Clinical Communication Virtual Review in [place], [place] 200 [place] [phone] 04/15/2024 12:00 PM VENEREAL DISEASE INVESTIGATOR Appointment Department of Radiology, [facility], in [place], [place] [address] [place] [phone] Brittney Piña, [facility], P.Yun.-C. [address] [place] [phone] 04/15/2024 1:00 PM VENEREAL DISEASE INVESTIGATOR Office Visit Department of Orthopedic Surgery in [place], [place] [address] [place] [phone] Vel Vinson M.D., M.B.A. [address] [place] [phone] Pending Results Name Type Priority Associated Diagnoses Date /Time Fungal Culture, Routine Microbiology Routine Infection Total Hip Arthroplasty Subsequent Right 01/06/2024 9:08 AM VENEREAL DISEASE INVESTIGATOR Mycobacterial Culture Microbiology Routine 1 03/07/2023 9:08 AM VENEREAL DISEASE INVESTIGATOR Fungal Culture, Routine Microbiology Routine Infection Total Hip Arthroplasty Subsequent Right 01/06/2024 9:28 AM VENEREAL DISEASE INVESTIGATOR Fungal Culture, Routine Microbiology Routine Infection Total Hip Arthroplasty Subsequent Right 01/06/2024 9:28 AM VENEREAL DISEASE INVESTIGATOR Mycobacterial Culture Microbiology Routine 1 03/07/2023 9:28 AM VENEREAL DISEASE INVESTIGATOR Mycobacterial Culture Microbiology Routine 1 03/07/2023 9:28 AM VENEREAL DISEASE INVESTIGATOR Prepare Red Blood Cells, 2 Units Blood Bank STAT 01/06/2024 6:30 AM VENEREAL DISEASE INVESTIGATOR Transfuse Red Blood Cells : , 2 Units Blood Bank Routine 01/07/2024 8:0 7 AM VENEREAL DISEASE INVESTIGATOR Prepare Red Blood Cells Blood Bank Routine 1 03/07/2023 6:30 AM VENEREAL DISEASE INVESTIGATOR Transfuse Red Blood Cells : Blood Bank Routine 01/07/2024 8:06 AM VENEREAL DISEASE INVESTIGATOR documented as of this encounter Procedures Procedure Name Priority Date/Time Associated Diagnosis Comments GLUCOSE POCT, B Routine 01/09/2024 8:07 AM VENEREAL DISEASE INVESTIGATOR HEMOGLOBIN, B STAT 01/09/2024 7:18 AM VENEREAL DISEASE INVESTIGATOR BASIC METABOLIC PANEL, S/P STAT 01/09/2024 7:18 AM VENEREAL DISEASE INVESTIGATOR GLUCOSE POCT, B Routine 01/09/2024 2:48 AM VENEREAL DISEASE INVESTIGATOR GLUCOSE POCT, B Routine 01/08/2024 11:26 PM VENEREAL DISEASE INVESTIGATOR DX CHEST PORTABLE 1 VIEW RAD - Routine (most inpatients and all outpatients) 01/08/2024 11:13 PM VENEREAL DISEASE INVESTIGATOR GLUCOSE POCT, B Routine 01/08/2024 9:55 PM VENEREAL DISEASE INVESTIGATOR GLUCOSE POCT, B Routine 01/08/2024 6:03 PM VENEREAL DISEASE INVESTIGATOR GLUCOSE POCT, B Routine 01/08/2024 12:33 PM VENEREAL DISEASE INVESTIGATOR REMOTE OXIMETRY MONITORING CONT. Routine 01/08/2024 8:01 AM VENEREAL DISEASE INVESTIGATOR GLUCOSE POCT, B Routine 01/08/2024 7:24 AM VENEREAL DISEASE INVESTIGATOR CBC WITH DIFFERENTIAL, B Routine 01/08/2024 7:21 AM VENEREAL DISEASE INVESTIGATOR BASIC METABOLIC PANEL, S/P Routine 01/08/2024 7:21 AM VENEREAL DISEASE INVESTIGATOR GLUCOSE POCT, B Routine 01/08/2024 2:54 AM VENEREAL DISEASE INVESTIGATOR GLUCOSE POCT, B Routine 01/07/2024 9:48 PM VENEREAL DISEASE INVESTIGATOR GLUCOSE POCT, B Routine 01/07/2024 6:26 PM VENEREAL DISEASE INVESTIGATOR HEMOGLOBIN, B Timed 01/07/2024 4:29 PM VENEREAL DISEASE INVESTIGATOR GLUCOSE POCT, B Routine 01/07/2024 3:10 PM VENEREAL DISEASE INVESTIGATOR TRANSFUSE RED BLOOD CELLS Routine 01/07/2024 9:56 AM VENEREAL DISEASE INVESTIGATOR TRANSFUSE RED BLOOD CELLS Routine 01/07/2024 8:06 AM VENEREAL DISEASE INVESTIGATOR REMOTE OXIMETRY MONITORING CONT. Routine 01/07/2024 8:01 AM VENEREAL DISEASE INVESTIGATOR GLUCOSE POCT, B Routine 01/07/2024 7:48 AM VENEREAL DISEASE INVESTIGATOR CBC WITHOUT DIFFERENTIAL, B Routine 01/07/2024 3:35 AM VENEREAL DISEASE INVESTIGATOR HEMOGLOBIN A1C, B Routine 01/07/2024 3:3 5 AM VENEREAL DISEASE INVESTIGATOR BASIC METABOLIC PANEL, S/P Routine 01/07/2024 3:35 AM VENEREAL DISEASE INVESTIGATOR GLUCOSE POCT, B Routine 01/07/2024 2:55 AM VENEREAL DISEASE INVESTIGATOR GLUCOSE POCT, B Routine 01/06/2024 9:38 PM VENEREAL DISEASE INVESTIGATOR REMOTE OXIMETRY MONITORING CONT. Routine 01/06/2024 8:00 PM VENEREAL DISEASE INVESTIGATOR REMOTE OXIMETRY MONITORING CONT. STAT 01/06/2024 8:00 PM VENEREAL DISEASE INVESTIGATOR REMOTE OXIMETRY MONITORING CONT. Routine 01/06/2024 4:51 PM VENEREAL DISEASE INVESTIGATOR REMOTE OXIMETRY MONITORING CONT. STAT 01/06/2024 4:48 PM VENEREAL DISEASE INVESTIGATOR GLUCOSE POCT, B Routine 01/06/2024 3:31 PM VENEREAL DISEASE INVESTIGATOR ADULT OXYGEN THERAPY Routine 01/06/2024 2:08 PM VENEREAL DISEASE INVESTIGATOR DX HIP RIGHT 2-3 VIEWS RAD - Routine (most inpatients and all outpatients) 01/06/2024 2:00 PM VENEREAL DISEASE INVESTIGATOR PATIENT STATUS, ABG STAT 01/06/2024 1 :05 PM VENEREAL DISEASE INVESTIGATOR LACTATE, B STAT 01/06/2024 1:05 PM VENEREAL DISEASE INVESTIGATOR HEMOGLOBIN, WHOLE BLOOD STAT 01/06/2024 1:05 PM VENEREAL DISEASE INVESTIGATOR SODIUM, B STAT 01/06/2024 1:05 PM VENEREAL DISEASE INVESTIGATOR POTASSIUM, B STAT 01/06/2024 1:05 PM VENEREAL DISEASE INVESTIGATOR GLUCOSE, WHOLE BLOOD STAT 01/06/2024 1:05 PM VENEREAL DISEASE INVESTIGATOR ABG W/O COOX STAT 01/06/2024 1:05 PM VENEREAL DISEASE INVESTIGATOR CALCIUM, IONIZED, S/B STAT 01/06/2024 1:05 PM VENEREAL DISEASE INVESTIGATOR TRANSFUSE RED BLOOD CELLS Routine 01/06/2024 12:05 PM VENEREAL DISEASE INVESTIGATOR DX HIP RIGHT 2-3 VIEWS RAD - Routine (most inpatients and all outpatients) 01/06/2024 11:53 AM VENEREAL DISEASE INVESTIGATOR HEMOGLOBIN, WHOLE BLOOD STAT 01/06/2024 11:13 AM VENEREAL DISEASE INVESTIGATOR GLUCOSE POCT, B Routine 01/06/2024 11:04 AM VENEREAL DISEASE INVESTIGATOR DX HIP RIGHT 2-3 VIEWS RAD - Routine (most inpatients and all outpatients) 01/06/2024 11:00 AM VENEREAL DISEASE INVESTIGATOR DX PELVIS 1-2 VIEWS RAD - Routine (most inpatients and all outpatients) 01/06/2024 10:24 AM VENEREAL DISEASE INVESTIGATOR DX PELVIS 1-2 VIEWS RAD - Routine (most inpatients and all outpatients) 01/06/2024 10:00 AM VENEREAL DISEASE INVESTIGATOR PATIENT STATUS, ABG STAT 01/06/2024 9 :32 AM VENEREAL DISEASE INVESTIGATOR ABG W/COOX STAT 01/06/2024 9:32 AM VENEREAL DISEASE INVESTIGATOR BACTERIA CULT, AEROBE/ANAEROBE+SUSC Routine 01/06/2024 9:28 AM VENEREAL DISEASE INVESTIGATOR BACTERIA CULT, AEROBE/ANAEROBE+SUSC Routine 01/06/2024 9:28 AM VENEREAL DISEASE INVESTIGATOR MYCOBACTERIAL CULTURE, V Routine 01/06/2024 9:28 AM VENEREAL DISEASE INVESTIGATOR MYCOBACTERIAL CULTURE, V Routine 01/06/2024 9:28 AM VENEREAL DISEASE INVESTIGATOR ACID FAST SMEAR FOR MYCOBACTERIUM Routine 01/06/2024 9:28 AM VENEREAL DISEASE INVESTIGATOR Infection Total Hip Arthroplasty Subsequent Right ACID FAST SMEAR FOR MYCOBACTERIUM Routine 01/06/2024 9:28 AM VENEREAL DISEASE INVESTIGATOR Infection Total Hip Arthroplasty Subsequent Right FUNGAL CULTURE, ROUTINE Routine 01/06/2024 9:28 AM VENEREAL DISEASE INVESTIGATOR Infection Total Hip Arthroplasty Subsequent Right FUNGAL CULTURE, ROUTINE Routine 01/06/2024 9:28 AM VENEREAL DISEASE INVESTIGATOR Infection Total Hip Arthroplasty Subsequent Right SURGICAL PATHOLOGY, [facility] Routine 01/06/2024 9:13 AM VENEREAL DISEASE INVESTIGATOR Infection Total Hip Arthroplasty Subsequent Right BACTERIA CULT, AEROBE/ANAEROBE+SUSC Routine 01/06/2024 9:08 AM VENEREAL DISEASE INVESTIGATOR MYCOBACTERIAL CULTURE, V Routine 01/06/2024 9:08 AM VENEREAL DISEASE INVESTIGATOR ACID FAST SMEAR FOR MYCOBACTERIUM Routine 01/06/2024 9:08 AM VENEREAL DISEASE INVESTIGATOR Infection Total Hip Arthroplasty Subsequent Right FUNGAL CULTURE, ROUTINE Routine 01/06/2024 9:08 AM VENEREAL DISEASE INVESTIGATOR Infection Total Hip Arthroplasty Subsequent Right GLUCOSE POCT, B Routine 01/06/2024 9:00 AM VENEREAL DISEASE INVESTIGATOR ARTHROPLASTY REVISION FEMORAL+ACETABULAR HIP 01/06/2024 7:34 AM VENEREAL DISEASE INVESTIGATOR Infection Total Hip Arthroplasty Subsequent Right PREPARE RED BLOOD CELLS Routine 01/06/2024 6:30 AM VENEREAL DISEASE INVESTIGATOR PREPARE RED BLOOD CELLS STAT 01/06/2024 6:30 AM VENEREAL DISEASE INVESTIGATOR TYPE AND SCREEN Routine 01/06/2024 6:30 AM VENEREAL DISEASE INVESTIGATOR GLUCOSE POCT, B Routine 01/06/2024 6:06 AM VENEREAL DISEASE INVESTIGATOR documented in this encounter Results * Glucose, POCT (01/09/2024 8:07 AM VENEREAL DISEASE INVESTIGATOR) Glucose, POCT, B 88 70 - 140 mg/dL 01/09/2024 8:10 AM VENEREAL DISEASE INVESTIGATOR PCDE Site Capillary 01/09/2024 8:10 AM VENEREAL DISEASE INVESTIGATOR PCDE Blood 01/09/2024 8:07 AM VENEREAL DISEASE INVESTIGATOR 01/09/2024 8:10 AM VENEREAL DISEASE INVESTIGATOR us Unknown Provider LAB POCT ORDERABLES-MANUAL Cata l Result Performing Organization Address City/State/[facility] Co de Phone Number [facility] [address] [place] [address], [facility] PCDE [facility] POC [address] [place] [address] * (ABNORMAL) Basic Metabolic Panel (01/09/2024 7:18 AM VENEREAL DISEASE INVESTIGATOR) Potassium, P 4.8 3.6 - 5.2 mmol/L 01/09/2024 7:58 AM VENEREAL DISEASE INVESTIGATOR METH Sodium, P 135 135 - 145 mmol/L 01/09/2024 7:58 AM VENEREAL DISEASE INVESTIGATOR METH Chloride, P 101 98 - 107 mmol/L 01/09/2024 7:58 AM VENEREAL DISEASE INVESTIGATOR METH Bicarbonate, P 27 22 - 29 mmol/L 01/09/2024 7:58 AM VENEREAL DISEASE INVESTIGATOR METH Anion Gap, P 7 7 - 15 01/09/2024 7:58 AM VENEREAL DISEASE INVESTIGATOR METH BUN (Blood Urea Nitrogen), P 41(H) 8 - 24 mg/dL 01/09/2024 7:58 AM VENEREAL DISEASE INVESTIGATOR METH Creatinine 0.91 0.74 - 1.35 mg/dL 01/09/2024 7:58 AM VENEREAL DISEASE INVESTIGATOR METH Estimated GFR (eGFR) >90 >=60 mL/min/BSA 01/09/2024 7:58 AM VENEREAL DISEASE INVESTIGATOR METH Comment: Estimated GFR calculated using the 2020 CKD_EPI creatinine equation. Calcium, Total, P 8.4(L) 8.6 - 10.0 mg/dL 01/09/2024 7:58 AM VENEREAL DISEASE INVESTIGATOR METH Glucose, P 100 70 - 140 mg/dL 01/09/2024 7:58 AM VENEREAL DISEASE INVESTIGATOR METH Blood (Blood, Venous) 01/09/2024 7:18 AM VENEREAL DISEASE INVESTIGATOR 01/09/2024 7:34 AM VENEREAL DISEASE INVESTIGATOR Trae Coffey M.D. LAB BLOOD ADD-ON Final Result Performing Organization Address [facility] Co de Phone Number [facility] [address] [place] [address], [facility] METH [facility] [address] [place] [address] * (ABNORMAL) Hemoglobin (01/09/2024 7:18 AM VENEREAL DISEASE INVESTIGATOR) Hemoglobin 7.9(L) 13.2 - 16.6 g/dL 01/09/2024 7:39 AM VENEREAL DISEASE INVESTIGATOR METH Blood (Blood, Venous) 01/09/2024 7:18 AM VENEREAL DISEASE INVESTIGATOR 01/09/2024 7:31 AM VENEREAL DISEASE INVESTIGATOR Trae Coffey M.D. LAB BLOOD ADD-ON Final Result Performing Organization Address [facility] de Phone Number [facility] [address] [place] [address], [facility] METH [facility] [address] [place] [address] * Glucose, POCT (01/09/2024 2:48 AM VENEREAL DISEASE INVESTIGATOR) Glucose, POCT, B 107 70 - 140 mg/dL 01/09/2024 3:37 AM VENEREAL DISEASE INVESTIGATOR PCDE Site Capillary 01/09/2024 3:37 AM VENEREAL DISEASE INVESTIGATOR PCDE Last Intake > 4 hours 01/09/2024 3:37 AM VENEREAL DISEASE INVESTIGATOR PCDE Blood 01/09/2024 2:48 AM VENEREAL DISEASE INVESTIGATOR 01/09/2024 3:38 AM VENEREAL DISEASE INVESTIGATOR Unknown Provider LAB POCT ORDERABLES-MANUAL Cata l Result Performing Organization Address City/[facility] Co de Phone Number [facility] [address] [place] [address], [facility] PCDE [facility] POC [address] [place] [address] * Glucose, POCT (01/08/2024 11:26 PM VENEREAL DISEASE INVESTIGATOR) Glucose, POCT, B 111 70 - 140 mg/dL 01/09/2024 7:55 AM VENEREAL DISEASE INVESTIGATOR PCDE Last Intake 1-2 hours 01/09/2024 7:55 AM VENEREAL DISEASE INVESTIGATOR PCDE Blood 01/08/2024 11:2 6 PM VENEREAL DISEASE INVESTIGATOR 01/09/2024 7:56 AM VENEREAL DISEASE INVESTIGATOR us Unknown Provider LAB POCT ORDERABLES-MANUAL Cata l Result [facility] [address] [place] [address], [facility] PCDE [facility] POC [address] [place] [address] * DX Chest Portable 1 View (01/08/2024 11:13 PM VENEREAL DISEASE INVESTIGATOR) Anatomical Region Laterality Modality Chest, Thoracic RST LOS, Tho racic ARZ LOS, Thoracic FLA LOS N/A Digital Radiography Impressions 01/09/2024 7:58 AM VENEREAL DISEASE INVESTIGATOR Since 06/07/2023, interval removal of previous central venous catheter. Remainder not significantly changed. Low lung volumes. Minimal atelectasis in the left lower lobe. Stable borderline cardiomegaly. Delano device. No definite focal airspace opacity. Narrative 01/09/2024 7:58 AM VENEREAL DISEASE INVESTIGATOR EXAM: DX CHEST PORTABLE 1 VIEW Procedure Note Frankie Oliva M.D. - 01/09/2024 EXAM: DX CHEST PORTABLE 1 VIEW IMPRESSION: Since 06/07/2023, interval removal of previous central venous catheter.Remainder not significantly changed. Low lung volumes. Minimal atelectasisin the left lower lobe. Stable borderline cardiomegaly. Delano device. Nodefinite focal airspace opacity. us Poonam R Macinnis M.D. IMG DIAGNOSTIC IMAGING TX OCEDURES Final Result * Glucose, POCT (01/08/2024 9:55 PM VENEREAL DISEASE INVESTIGATOR) Glucose, POCT, B 120 70 - 140 mg/dL 01/08/2024 9:59 PM VENEREAL DISEASE INVESTIGATOR PCDE Blood 01/08/2024 9:55 PM VENEREAL DISEASE INVESTIGATOR 01/08/2024 9:59 PM VENEREAL DISEASE INVESTIGATOR Unknown Provider LAB POCT ORDERABLES-MANUAL Cata l Result Performing Organization Address [facility] Co de Phone Number [facility] [address] [place] [address], [facility] PCDE [facility] POC [address] [place] [address] * Glucose, POCT (01/08/2024 6:03 PM VENEREAL DISEASE INVESTIGATOR) Glucose, POCT, B 102 70 - 140 mg/dL 01/08/2024 6:16 PM VENEREAL DISEASE INVESTIGATOR PCDE Site Capillary 01/08/2024 6:16 PM VENEREAL DISEASE INVESTIGATOR PCDE Last Intake 3-4 hours 01/08/2024 6:16 PM VENEREAL DISEASE INVESTIGATOR PCDE Blood 01/08/2024 6:03 PM VENEREAL DISEASE INVESTIGATOR 01/08/2024 6:16 PM VENEREAL DISEASE INVESTIGATOR Unknown Provider LAB POCT ORDERABLES-MANUAL Cata l Result Performing Organization Address [facility] de Phone Number [facility] [address] [place] [address], [facility] PCDE [facility] POC [address] [place] [address] * (ABNORMAL) Glucose, POCT (01/08/2024 12:33 PM VENEREAL DISEASE INVESTIGATOR) Glucose, POCT, B 158(H) 70 - 140 mg/dL 01/08/2024 12:35 PM VENEREAL DISEASE INVESTIGATOR PCDE Site Capillary 01/08/2024 12:35 PM VENEREAL DISEASE INVESTIGATOR PCDE Last Intake 3-4 hours 01/08/2024 12:35 PM VENEREAL DISEASE INVESTIGATOR PCDE Blood 01/08/2024 12:3 3 PM VENEREAL DISEASE INVESTIGATOR 01/08/2024 12:36 PM VENEREAL DISEASE INVESTIGATOR us Unknown Provider LAB POCT ORDERABLES-MANUAL Cata l Result Performing Organization Address [facility]/ZIP Co de Phone Number [facility] [address] [place] [address], [facility] PCDE [facility] POC [address] [place] [address] * (ABNORMAL) Glucose, POCT (01/08/2024 7:24 AM VENEREAL DISEASE INVESTIGATOR) Glucose, POCT, B 203(H) 70 - 140 mg/dL 01/08/2024 10:46 AM VENEREAL DISEASE INVESTIGATOR PCDE Comment: Glucose results collected from venous catheters may be falsely elevated. Site Venline 01/08/2024 10:46 AM VENEREAL DISEASE INVESTIGATOR PCDE Last Intake 3-4 hours 01/08/2024 10:46 AM VENEREAL DISEASE INVESTIGATOR PCDE Blood 01/08/2024 7:24 AM VENEREAL DISEASE INVESTIGATOR 01/08/2024 10:46 AM VENEREAL DISEASE INVESTIGATOR us Unknown Provider LAB POCT ORDERABLES-MANUAL Cata l Result Performing Organization Address [facility] Co de Phone Number [facility] [address] [place] [address], [facility] PCDE [facility] POC [address] [place] [address] * (ABNORMAL) Basic Metabolic Panel (01/08/2024 7:21 AM VENEREAL DISEASE INVESTIGATOR) Potassium, S 5.3(H) 3.6 - 5.2 mmol/L 01/08/2024 9:06 AM VENEREAL DISEASE INVESTIGATOR DTL Sodium, S 137 135 - 145 mmol/L 01/08/2024 9:06 AM VENEREAL DISEASE INVESTIGATOR DTL Chloride, S 104 98 - 107 mmol/L 01/08/2024 9:06 AM VENEREAL DISEASE INVESTIGATOR DTL Bicarbonate, S 25 22 - 29 mmol/L 01/08/2024 9:06 AM VENEREAL DISEASE INVESTIGATOR DTL Anion Gap 8 7 - 15 01/08/2024 9:06 AM VENEREAL DISEASE INVESTIGATOR DTL BUN (Blood Urea Nitrogen), S 53(H) 8 - 24 mg/dL 01/08/2024 9:06 AM VENEREAL DISEASE INVESTIGATOR DTL Creatinine 1.39(H) 0.74 - 1.35 mg/dL 01/08/2024 9:06 AM VENEREAL DISEASE INVESTIGATOR DTL Estimated GFR (eGFR) 58(L) >=60 mL/min/BSA 01/08/2024 9:06 AM VENEREAL DISEASE INVESTIGATOR DTL Comment: Estimated GFR calculated using the 2020 CKD_EPI creatinine equation. Calcium, Total, S 8.0(L) 8.6 - 10.0 mg/dL 01/08/2024 9:06 AM VENEREAL DISEASE INVESTIGATOR DTL Glucose, S 209(H) 70 - 140 mg/dL 01/08/2024 9:06 AM VENEREAL DISEASE INVESTIGATOR DTL Blood (Blood, Venous) 01/08/2024 7:21 AM VENEREAL DISEASE INVESTIGATOR 01/08/2024 7:47 AM VENEREAL DISEASE INVESTIGATOR Trae Coffey M.D. LAB BLOOD ADD-ON Final Result [facility] [address] [place] [address], [facility] [address] [place] [address] * (ABNORMAL) CBC with Differential, Blood (01/08/2024 7:21 AM VENEREAL DISEASE INVESTIGATOR) Hemoglobin 7.7(L) 13.2 - 16.6 g/dL 01/08/2024 8:01 AM VENEREAL DISEASE INVESTIGATOR DTL Hematocrit 22.7(L) 38.3 - 48.6 % 01/08/2024 8:01 AM VENEREAL DISEASE INVESTIGATOR DTL Erythrocytes 2.50(L) 4.35 - 5.65 x10(12)/L 01/08/2024 8:01 AM VENEREAL DISEASE INVESTIGATOR DTL MCV 90.8 78.2 - 97.9 fL 01/08/2024 8:01 AM VENEREAL DISEASE INVESTIGATOR DTL RBC Distrib Width 15.0(H) 11.8 - 14.5 % 01/08/2024 8:01 AM VENEREAL DISEASE INVESTIGATOR DTL Platelet Count 105(L) 135 - 317 x10(9)/L 01/08/2024 8:01 AM VENEREAL DISEASE INVESTIGATOR DTL Leukocytes 10.9(H) 3.4 - 9.6 x10(9)/L 01/08/2024 8:01 AM VENEREAL DISEASE INVESTIGATOR DTL Neutrophils 7.90(H) 1.56 - 6.45 x10(9)/L 01/08/2024 8:01 AM VENEREAL DISEASE INVESTIGATOR DHPM Lymphocytes 1.26 0.95 - 3.07 x10(9)/L 01/08/2024 8:01 AM VENEREAL DISEASE INVESTIGATOR DTL Monocytes 1.69(H) 0.26 - 0.81 x10(9)/L 01/08/2024 8:01 AM VENEREAL DISEASE INVESTIGATOR DTL Eosinophils <0.03 0.03 - 0.48 x10(9)/L 01/08/2024 8:01 AM VENEREAL DISEASE INVESTIGATOR DTL Basophils <0.03 0.01 - 0.08 x10(9)/L 01/08/2024 8:01 AM VENEREAL DISEASE INVESTIGATOR DTL Blood (Blood, Venous) 01/08/2024 7:21 AM VENEREAL DISEASE INVESTIGATOR 01/08/2024 7:35 AM VENEREAL DISEASE INVESTIGATOR us Trae Coffey M.D. LAB BLOOD ADD-ON Final Result Performing Organization Address City/[facility]/ZIP Co de Phone Number [facility] [address] [place] [address], [facility] DTL [facility] [address] [place] [address] DHPM [facility] [address] [place] [address] * (ABNORMAL) Glucose, POCT (01/08/2024 2:54 AM VENEREAL DISEASE INVESTIGATOR) [facility] Glucose, POCT, B 183(H) 70 - 140 mg/dL 01/08/2024 3:01 AM VENEREAL DISEASE INVESTIGATOR PCDE Site Capillary 01/08/2024 3:01 AM VENEREAL DISEASE INVESTIGATOR PCDE Last Intake > 4 hours 01/08/2024 3:01 AM VENEREAL DISEASE INVESTIGATOR PCDE Blood 01/08/2024 2:54 AM VENEREAL DISEASE INVESTIGATOR 01/08/2024 3:01 AM VENEREAL DISEASE INVESTIGATOR us Unknown Provider LAB POCT ORDERABLES-MANUAL Cata l Result [facility] [address] [place], [place] [id number], [facility] PCDE [facility] POC [address] [place] [address] * (ABNORMAL) Glucose, POCT (01/07/2024 9:48 PM VENEREAL DISEASE INVESTIGATOR) Glucose, POCT, B 241(H) 70 - 140 mg/dL 01/07/2024 10:25 PM VENEREAL DISEASE INVESTIGATOR PCDE Last Intake 2-3 hours 01/07/2024 10:25 PM VENEREAL DISEASE INVESTIGATOR PCDE Blood 01/07/2024 9:48 PM VENEREAL DISEASE INVESTIGATOR 01/07/2024 10:25 PM VENEREAL DISEASE INVESTIGATOR Unknown Provider LAB POCT ORDERABLES-MANUAL Cata l Result Performing Organization Address City/[facility]/ZIP Co de Phone Number POC [employer] [facility] [address] [place] [address], [facility] PCDE [facility] POC [address] [place] [address] * (ABNORMAL) Glucose, POCT (01/07/2024 6:26 PM VENEREAL DISEASE INVESTIGATOR) Glucose, POCT, B 229(H) 70 - 140 mg/dL 01/07/2024 6:28 PM VENEREAL DISEASE INVESTIGATOR PCDE Site Capillary 01/07/2024 6:28 PM VENEREAL DISEASE INVESTIGATOR PCDE Last Intake 3-4 hours 01/07/2024 6:28 PM VENEREAL DISEASE INVESTIGATOR PCDE Blood 01/07/2024 6:26 PM VENEREAL DISEASE INVESTIGATOR 01/07/2024 6:29 PM VENEREAL DISEASE INVESTIGATOR Unknown Provider LAB POCT ORDERABLES-MANUAL Cata l Result Performing Organization Address [facility] Co de Phone Number POC [employer] [facility] [address] [place] [address], [facility] PCDE [facility] POC [address] [place] [address] * (ABNORMAL) Hemoglobin (01/07/2024 4:29 PM VENEREAL DISEASE INVESTIGATOR) Hemoglobin 8.2(L) 13.2 - 16.6 g/dL 01/07/2024 4:52 PM VENEREAL DISEASE INVESTIGATOR DTL Blood (Blood, Venous) 01/07/2024 4:29 PM VENEREAL DISEASE INVESTIGATOR 01/07/2024 4:41 PM VENEREAL DISEASE INVESTIGATOR Trae Coffey M.D. LAB BLOOD ADD-ON Final Result Performing Organization Address City/[facility]/ZIP Co de Phone Number [facility] [address] [place] [address], [facility] DTL [facility] [place] [facility] [address] [place] [address] * (ABNORMAL) Glucose, POCT (01/07/2024 3:10 PM VENEREAL DISEASE INVESTIGATOR) Glucose, POCT, B 234(H) 70 - 140 mg/dL 01/07/2024 4:20 PM VENEREAL DISEASE INVESTIGATOR PCDE Site Capillary 01/07/2024 4:20 PM VENEREAL DISEASE INVESTIGATOR PCDE Blood 01/07/2024 3:10 PM VENEREAL DISEASE INVESTIGATOR 01/07/2024 4:21 PM VENEREAL DISEASE INVESTIGATOR us Unknown Provider LAB POCT ORDERABLES-MANUAL Cata l Result Performing Organization Address [facility] Co de Phone Number POC [facility] [facility] [address] [place] [address], [facility] PCDE [facility] POC [address] [place] [address] * Transfuse Red Blood Cells : (01/07/2024 11:42 AM VENEREAL DISEASE INVESTIGATOR) us Trae Coffey M.D. BLOOD TRANSFUSION ORDERABLES Final Result * (ABNORMAL) Glucose, POCT (01/07/2024 7:48 AM VENEREAL DISEASE INVESTIGATOR) Glucose, POCT, B 158(H) 70 - 140 mg/dL 01/07/2024 7:57 AM VENEREAL DISEASE INVESTIGATOR PCDE Site Capillary 01/07/2024 7:57 AM VENEREAL DISEASE INVESTIGATOR PCDE Last Intake <1 hour 01/07/2024 7:57 AM VENEREAL DISEASE INVESTIGATOR PCDE Blood 01/07/2024 7:48 AM VENEREAL DISEASE INVESTIGATOR 01/07/2024 7:57 AM VENEREAL DISEASE INVESTIGATOR us Unknown Provider LAB POCT ORDERABLES-MANUAL Cata l Result Performing Organization Address [facility]/ZIP Co de Phone Number [facility]OC [facility] [address] [place] [address], [facility] PCDE [facility] POC [address] [place] [address] * (ABNORMAL) CBC without Differential (01/07/2024 3:35 AM VENEREAL DISEASE INVESTIGATOR) Hemoglobin 6.8(L) 13.2 - 16.6 g/dL 01/07/2024 4:53 AM VENEREAL DISEASE INVESTIGATOR DTL Comment:Rule out IV contamin ation. Consider sample redraw if clinically indicated. Hematocrit 20.3(L) 38.3 - 48.6 % 01/07/2024 4:53 AM VENEREAL DISEASE INVESTIGATOR DTL Erythrocytes 2.28(L) 4.35 - 5.65 x10(12)/L 01/07/2024 4:53 AM VENEREAL DISEASE INVESTIGATOR DTL MCV 89.0 78.2 - 97.9 fL 01/07/2024 4:53 AM VENEREAL DISEASE INVESTIGATOR DTL RBC Distrib Width 15.3(H) 11.8 - 14.5 % 01/07/2024 4:53 AM VENEREAL DISEASE INVESTIGATOR DTL Platelet Count 98(L) 135 - 317 x10(9)/L 01/07/2024 4:53 AM VENEREAL DISEASE INVESTIGATOR DTL Leukocytes 8.7 3.4 - 9.6 x10(9)/L 01/07/2024 4:53 AM VENEREAL DISEASE INVESTIGATOR DTL Blood (Blood, Venous) 01/07/2024 3:35 AM VENEREAL DISEASE INVESTIGATOR 01/07/2024 3:58 AM VENEREAL DISEASE INVESTIGATOR Trae Coffey M.D. LAB BLOOD ADD-ON Final Result [address] [address], [facility] [address] [place] [address] * (ABNORMAL) Basic Metabolic Panel (01/07/2024 3:35 AM VENEREAL DISEASE INVESTIGATOR) Pathologist [facility] Potassium, S 5.4(H) 3.6 - 5.2 mmol/L 01/07/2024 4:40 AM VENEREAL DISEASE INVESTIGATOR DTL Sodium, S 139 135 - 145 mmol/L 01/07/2024 4:40 AM VENEREAL DISEASE INVESTIGATOR DTL Chloride, S 105 98 - 107 mmol/L 01/07/2024 4:40 AM VENEREAL DISEASE INVESTIGATOR DTL Bicarbonate, S 22 22 - 29 mmol/L 01/07/2024 4:40 AM VENEREAL DISEASE INVESTIGATOR DTL Anion Gap 12 7 - 15 01/07/2024 4:40 AM VENEREAL DISEASE INVESTIGATOR DTL BUN (Blood Urea Nitrogen), S 29(H) 8 - 24 mg/dL 01/07/2024 4:40 AM VENEREAL DISEASE INVESTIGATOR DTL Creatinine 1.30 0.74 - 1.35 mg/dL 01/07/2024 4:40 AM VENEREAL DISEASE INVESTIGATOR DTL Estimated GFR (eGFR) 63 >=60 mL/min/BSA 01/07/2024 4:40 AM VENEREAL DISEASE INVESTIGATOR DTL Comment: Estimated GFR calculated using the 2020 CKD_EPI creatinine equation. Calcium, Total, S 7.8(L) 8.6 - 10.0 mg/dL 01/07/2024 4:40 AM VENEREAL DISEASE INVESTIGATOR DTL Glucose, S 175(H) 70 - 140 mg/dL 01/07/2024 4:40 AM VENEREAL DISEASE INVESTIGATOR DTL Blood (Blood, Venous) 01/07/2024 3:35 AM VENEREAL DISEASE INVESTIGATOR 01/07/2024 4:15 AM VENEREAL DISEASE INVESTIGATOR us Trae Coffey M.D. LAB BLOOD ADD-ON Final Result Performing Organization Address City/[facility]/ZIP Co de Phone Number [facility] [address] DTL [facility] [place] [facility] [address] [place] [address] * Hemoglobin A1c (01/07/2024 3:35 AM VENEREAL DISEASE INVESTIGATOR) [facility] Hemoglobin A1c, B 5.1 4.0 - 5.6 % 01/07/2024 4:46 AM VENEREAL DISEASE INVESTIGATOR DTL Blood (Blood, Venous) 01/07/2024 3:35 AM VENEREAL DISEASE INVESTIGATOR 01/07/2024 3:58 AM VENEREAL DISEASE INVESTIGATOR us Vel Vinson M.D., M.B.A. LAB BLOOD ADD-ON F inal Result Performing Organization Address [facility]/ZIP Co de Phone Number [facility] [address] [place] [address], [facility] DTL [facility] [place] [address] [place] [address] * (ABNORMAL) Glucose, POCT (01/07/2024 2:55 AM VENEREAL DISEASE INVESTIGATOR) Glucose, POCT, B 190(H) 70 - 140 mg/dL 01/07/2024 3:33 AM VENEREAL DISEASE INVESTIGATOR PCDE Site Capillary 01/07/2024 3:33 AM VENEREAL DISEASE INVESTIGATOR PCDE Last Intake > 4 hours 01/07/2024 3:33 AM VENEREAL DISEASE INVESTIGATOR PCDE Blood 01/07/2024 2:55 AM VENEREAL DISEASE INVESTIGATOR 01/07/2024 3:34 AM VENEREAL DISEASE INVESTIGATOR us Unknown Provider LAB POCT ORDERABLES-MANUAL Cata l Result Performing Organization Address [facility]/ZIP Co de Phone Number POC [employer] [facility] [address] [place] [address], [facility] PCDE [facility] POC [address] [place] [address] * (ABNORMAL) Glucose, POCT (01/06/2024 9:38 PM VENEREAL DISEASE INVESTIGATOR) Glucose, POCT, B 231(H) 70 - 140 mg/dL 01/06/2024 9:49 PM VENEREAL DISEASE INVESTIGATOR PCDE Site Capillary 01/06/2024 9:49 PM VENEREAL DISEASE INVESTIGATOR PCDE Last Intake 2-3 hours 01/06/2024 9:49 PM VENEREAL DISEASE INVESTIGATOR PCDE Blood 01/06/2024 9:38 PM VENEREAL DISEASE INVESTIGATOR 01/06/2024 9:49 PM VENEREAL DISEASE INVESTIGATOR us Unknown Provider LAB POCT ORDERABLES-MANUAL Cata l Result Performing Organization Address [facility]/ZIP Co de Phone Number POC [employer] [facility] [address] [place] [address], [facility] PCDE [facility] POC [address] [place] [address] * (ABNORMAL) Glucose, POCT (01/06/2024 3:31 PM VENEREAL DISEASE INVESTIGATOR) Glucose, POCT, B 197(H) 70 - 140 mg/dL 01/06/2024 3:42 PM VENEREAL DISEASE INVESTIGATOR PCDE Site Capillary 01/06/2024 3:42 PM VENEREAL DISEASE INVESTIGATOR PCDE Blood 01/06/2024 3:31 PM VENEREAL DISEASE INVESTIGATOR 01/06/2024 3:42 PM VENEREAL DISEASE INVESTIGATOR us Unknown Provider LAB POCT ORDERABLES-MANUAL Cata l Result [facility] [employer] [facility] [address] [place] [address], [facility] PCDE [facility] POC [address] [place] [address] * DX Hip Right 2-3 Views (01/06/2024 2:00 PM VENEREAL DISEASE INVESTIGATOR) Anatomical Region Laterality Modality Lower Extremity, Hip, Muscul oskeletal RST LOS, Musculoskeletal ARZ LOS, Muskuloskeletal FLA LOS Right Digit al Radiography Impressions 01/06/2024 2:14 PM VENEREAL DISEASE INVESTIGATOR Right revision ISRRAEL. Thin fracture line along and distal to the femoral stem. Tiny metallic fragments along the lateral femur. Negative for postoperative purposes. Narrative 01/06/2024 2:14 PM VENEREAL DISEASE INVESTIGATOR EXAM: DX HIP RIGHT 2-3 VIEWS Procedure Note Madison Dyer M.D. - 01/06/2024 EXAM: DX HIP RIGHT 2-3 VIEWS IMPRESSION: Right revision ISRRAEL. Thin fracture line along and distal to the femoralstem. Tiny metallic fragments along the lateral femur. Negative forpostoperative purposes. Vel Vinson M.D., M.B.A. IMG DIAGNOSTIC NIRMAL GING PROCEDURES Final Result * Sodium, B (01/06/2024 1:05 PM VENEREAL DISEASE INVESTIGATOR) Sodium, B 137 135 - 145 mmol/L 01/06/2024 3:24 PM VENEREAL DISEASE INVESTIGATOR METH Blood 01/06/2024 1:05 PM VENEREAL DISEASE INVESTIGATOR 01/06/2024 1:05 PM VENEREAL DISEASE INVESTIGATOR us Hanh Mckay [facility] LAB BLOOD NON ADD-ON Fin al Result [facility] [address] [place] [address], [facility] METH [facility] [address] [place] [address] * Potassium, Blood (01/06/2024 1:05 PM VENEREAL DISEASE INVESTIGATOR) Potassium, B 4.1 3.6 - 5.2 mmol/L 01/06/2024 3:32 PM VENEREAL DISEASE INVESTIGATOR METH Blood 01/06/2024 1:05 PM VENEREAL DISEASE INVESTIGATOR 01/06/2024 1:05 PM VENEREAL DISEASE INVESTIGATOR Hanh Mckay [facility] LAB BLOOD NON ADD-ON Fin al Result Performing Organization Address [facility] Co de Phone Number [facility] [address] [place] [address], [facility] METH [facility] [address] [place] [address] * Patient Status (01/06/2024 1:05 PM VENEREAL DISEASE INVESTIGATOR) Temperature 35.3 37.0 deg C 01/06/2024 1:05 PM VENEREAL DISEASE INVESTIGATOR METH FIO2 0.46 0.21=AIR 01/06/2024 1:05 PM VENEREAL DISEASE INVESTIGATOR METH Blood 01/06/2024 1:05 PM VENEREAL DISEASE INVESTIGATOR 01/06/2024 1:05 PM VENEREAL DISEASE INVESTIGATOR Hanh Mckay [facility] LAB BLOOD NON ADD-ON Fin al Result Performing Organization Address [facility] de Phone Number [facility] [address] [place] [address], [facility] METH [facility] [address] [place] [address] * (ABNORMAL) Hemoglobin, Whole Blood (01/06/2024 1:05 PM VENEREAL DISEASE INVESTIGATOR) Hemoglobin, B 8.2(L) 13.2 - 16.6 g/dL 01/06/2024 1:12 PM VENEREAL DISEASE INVESTIGATOR METH Blood (Blood, Arterial Line) 01/06/2024 1:05 PM VENEREAL DISEASE INVESTIGATOR 01/06/2024 1:05 PM VENEREAL DISEASE INVESTIGATOR Baltazar Pacheco M.D. LAB BLOOD NON ADD-ON Final Re sult Performing Organization Address City/[facility]/ZIP Co de Phone Number [facility] [address] [place] [address], [facility] METH [facility] [address] [place] [address] * (ABNORMAL) Glucose, Whole Blood (01/06/2024 1:05 PM VENEREAL DISEASE INVESTIGATOR) Glucose 247(H) 70 - 140 mg/dL 01/06/2024 1:12 PM VENEREAL DISEASE INVESTIGATOR METH Blood (Blood, Arterial Line) 01/06/2024 1:05 PM VENEREAL DISEASE INVESTIGATOR 01/06/2024 1:05 PM VENEREAL DISEASE INVESTIGATOR us Baltazar Pacheco M.D. LAB BLOOD ADD-ON Final Result Performing Organization Address [facility] Co de Phone Number [facility] [address] [place], [place] [address] [place] [address] [address] [place] [address] * (ABNORMAL) Calcium, Ionized (01/06/2024 1:05 PM VENEREAL DISEASE INVESTIGATOR) Calcium, Ionized, B 4.37(L) 4.65 - 5.30 mg/dL 01/06/2024 1:25 PM VENEREAL DISEASE INVESTIGATOR METH Blood (Blood, Arterial Line) 01/06/2024 1:05 PM VENEREAL DISEASE INVESTIGATOR 01/06/2024 1:05 PM VENEREAL DISEASE INVESTIGATOR us Baltazar Pacheco M.D. LAB BLOOD NON ADD-ON Final Re sult [facility] [address] [place] [address], [facility] METH [facility] [address] [place] [address] * (ABNORMAL) Lactate, B (01/06/2024 1:05 PM VENEREAL DISEASE INVESTIGATOR) Lactate, B 3.0(H) 0.5 - 2.2 mmol/L 01/06/2024 1:26 PM VENEREAL DISEASE INVESTIGATOR METH Blood (Blood, Arterial Line) 01/06/2024 1:05 PM VENEREAL DISEASE INVESTIGATOR 01/06/2024 1:05 PM VENEREAL DISEASE INVESTIGATOR Baltazar Pacheco M.D. LAB BLOOD NON ADD-ON Final Re sult Performing Organization Address [facility]/ZIP Co de Phone Number [facility] [address] [place] [address], [facility] METH [facility] [address] [place] [address] * (ABNORMAL) Blood Gas without Coox, Arterial (01/06/2024 1:05 PM VENEREAL DISEASE INVESTIGATOR) pO2 166(H) 83 - 108 mm Hg 01/06/2024 1:12 PM VENEREAL DISEASE INVESTIGATOR METH pCO2 42 35 - 48 mm Hg 01/06/2024 1:12 PM VENEREAL DISEASE INVESTIGATOR METH pH 7.35 7.35 - 7.45 pH 01/06/2024 1:12 PM VENEREAL DISEASE INVESTIGATOR METH Base Excess -2 -2 - 3 mmol/L 01/06/2024 1:12 PM VENEREAL DISEASE INVESTIGATOR METH HCO3 23 22 - 26 mmol/L 01/06/2024 1:12 PM VENEREAL DISEASE INVESTIGATOR METH Blood (Blood, Arterial Line) 01/06/2024 1:05 PM VENEREAL DISEASE INVESTIGATOR 01/06/2024 1:05 PM VENEREAL DISEASE INVESTIGATOR us Baltazar Pacheco M.D. LAB BLOOD NON ADD-ON Final Re sult Performing Organization Address [facility] Co de Phone Number [facility] [address] [place] [address], [facility] METH [facility] [address] [place] [address] * Transfuse Red Blood Cells : (01/06/2024 12:55 PM VENEREAL DISEASE INVESTIGATOR) us Baltazar Pacheco M.D. BLOOD TRANSFUSION ORDERABLES Edited Result - Final * DX Hip Right 2-3 Views (01/06/2024 11:53 AM VENEREAL DISEASE INVESTIGATOR) Anatomical Region Laterality Modality Lower Extremity, Hip, Muscul oskeletal RST LOS, Musculoskeletal ARZ LOS, Muskuloskeletal FLA LOS Right Digit al Radiography Impressions 01/06/2024 11:58 AM VENEREAL DISEASE INVESTIGATOR Intra-operative images taken during right revision ISRRAEL. Narrative 01/06/2024 11:58 AM VENEREAL DISEASE INVESTIGATOR EXAM: DX HIP RIGHT 2-3 VIEWS Procedure Note Madison Dyer M.D. - 01/06/2024 EXAM: DX HIP RIGHT 2-3 VIEWS IMPRESSION: Intra-operative images taken during right revision ISRRAEL. us Vel Vinson M.D., M.B.A. IMG DIAGNOSTIC NIRMAL GING PROCEDURES Final Result * (ABNORMAL) Hemoglobin, Whole Blood (01/06/2024 11:13 AM VENEREAL DISEASE INVESTIGATOR) Hemoglobin, B 8.3(L) 13.2 - 16.6 g/dL 01/06/2024 11:25 AM VENEREAL DISEASE INVESTIGATOR METH Blood (Blood, Arterial Line) 01/06/2024 11:13 AM VENEREAL DISEASE INVESTIGATOR 01/06/2024 11:19 AM VENEREAL DISEASE INVESTIGATOR us Baltazar Pacheco M.D. LAB BLOOD NON ADD-ON Final Re sult Performing Organization Address City/[facility]/ZIP Co de Phone Number [facility] [address] METH [facility] [address] [place] [address] * Glucose, POCT (01/06/2024 11:04 AM VENEREAL DISEASE INVESTIGATOR) Pathologist [facility] Glucose, POCT, B 98 70 - 140 mg/dL 01/06/2024 11:06 AM VENEREAL DISEASE INVESTIGATOR PCDE Site ARTLINE 01/06/2024 11:06 AM VENEREAL DISEASE INVESTIGATOR PCDE Blood 01/06/2024 11:0 4 AM VENEREAL DISEASE INVESTIGATOR 01/06/2024 11:07 AM VENEREAL DISEASE INVESTIGATOR us Unknown Provider LAB POCT ORDERABLES-MANUAL Cata l Result Performing Organization Address City/[facility]/ZIP Co de Phone Number POC [employer] [facility] [address] PCDE [facility] [address] [place] [address] * DX Hip Right 2-3 Views (01/06/2024 11:00 AM VENEREAL DISEASE INVESTIGATOR) Anatomical Region Laterality Modality Lower Extremity, Hip, Muscul oskeletal RST LOS, Musculoskeletal ARZ LOS, Muskuloskeletal FLA LOS Right Digit al Radiography Impressions 01/06/2024 11:17 AM VENEREAL DISEASE INVESTIGATOR Intraoperative images taken during right ISRRAEL reimplantation. Narrative 01/06/2024 11:17 AM VENEREAL DISEASE INVESTIGATOR EXAM: DX HIP RIGHT 2-3 VIEWS Procedure Note Cara Poole M.D. - 01/06/2024 EXAM: DX HIP RIGHT 2-3 VIEWS IMPRESSION: Intraoperative images taken during right ISRRAEL reimplantation. us Vel Vinson M.D., M.B.A. IMG DIAGNOSTIC NIRMAL GING PROCEDURES Final Result * DX Pelvis 1-2 Views (01/06/2024 10:24 AM VENEREAL DISEASE INVESTIGATOR) Anatomical Region Laterality Modality Pelvis, Musculoskeletal RST LOS, Musculoskeletal ARZ LOS, Muskuloskeletal FLA LOS N/A Digital Radiography Impressions 01/06/2024 10:50 AM VENEREAL DISEASE INVESTIGATOR Intraoperative image taken during right ISRRAEL reimplantation. Narrative 01/06/2024 10:50 AM VENEREAL DISEASE INVESTIGATOR EXAM: DX PELVIS 1-2 VIEWS Procedure Note Cara Poole M.D. - 01/06/2024 EXAM: DX PELVIS 1-2 VIEWS IMPRESSION: Intraoperative image taken during right ISRRAEL reimplantation. Vel Vinson M.D., M.B.A. IMG DIAGNOSTIC NIRMAL GING PROCEDURES Final Result * DX Pelvis 1-2 Views (01/06/2024 10:00 AM VENEREAL DISEASE INVESTIGATOR) Anatomical Region Laterality Modality Pelvis, Musculoskeletal RST LOS, Musculoskeletal ARZ LOS, Muskuloskeletal FLA LOS N/A Digital Radiography Impressions 01/06/2024 10:06 AM VENEREAL DISEASE INVESTIGATOR Intra-operative images taken during right ISRRAEL. Narrative 01/06/2024 10:06 AM VENEREAL DISEASE INVESTIGATOR EXAM: DX PELVIS 1-2 VIEWS Procedure Note Madison Dyer M.D. - 01/06/2024 EXAM: DX PELVIS 1-2 VIEWS IMPRESSION: Intra-operative images taken during right ISRRAEL. Vel Vinson M.D., M.B.A. IMG DIAGNOSTIC NIRMAL GING PROCEDURES Final Result * Patient Status (01/06/2024 9:32 AM VENEREAL DISEASE INVESTIGATOR) Temperature 35.1 37.0 deg C 01/06/2024 9:32 AM VENEREAL DISEASE INVESTIGATOR METH Blood 01/06/2024 9:32 AM VENEREAL DISEASE INVESTIGATOR 01/06/2024 9:32 AM VENEREAL DISEASE INVESTIGATOR Hanh Mckay [facility] LAB BLOOD NON ADD-ON Fin al Result [facility] [address] [place] [address], [facility] METH [facility] [address] [place] [address] * (ABNORMAL) Blood Gas with Coox, Arterial (01/06/2024 9:32 AM VENEREAL DISEASE INVESTIGATOR) pO2 158(H) 83 - 108 mm Hg 01/06/2024 9:37 AM VENEREAL DISEASE INVESTIGATOR METH pCO2 36 35 - 48 mm Hg 01/06/2024 9:37 AM VENEREAL DISEASE INVESTIGATOR METH pH 7.46(H) 7.35 - 7.45 pH 01/06/2024 9:37 AM VENEREAL DISEASE INVESTIGATOR METH Base Excess 2 -2 - 3 mmol/L 01/06/2024 9:37 AM VENEREAL DISEASE INVESTIGATOR METH HCO3 26 22 - 26 mmol/L 01/06/2024 9:37 AM VENEREAL DISEASE INVESTIGATOR METH Hemoglobin, B 9.9(L) 13.2 - 16.6 g/dL 01/06/2024 9:37 AM VENEREAL DISEASE INVESTIGATOR METH O2Hb 98.2(H) 94.0 - 98.0 % 01/06/2024 9:37 AM VENEREAL DISEASE INVESTIGATOR METH COHb 1.1 <3.0 % 01/06/2024 9:37 AM VENEREAL DISEASE INVESTIGATOR METH MetHb <1.0 <1.5 % 01/06/2024 9:37 AM VENEREAL DISEASE INVESTIGATOR METH CtO2 14.1(L) 18.0 - 21.0 vol % 01/06/2024 9:37 AM VENEREAL DISEASE INVESTIGATOR METH Blood (Blood, Arterial) 01/06/2024 9:32 AM VENEREAL DISEASE INVESTIGATOR 01/06/2024 9:32 AM VENEREAL DISEASE INVESTIGATOR us Baltazar Pacheco M.D. LAB BLOOD NON ADD-ON Final Re sult Performing Organization Address [facility] Co de Phone Number [facility] [address] [place] [address], [facility] METH [facility] [place] [facility] [address] [place] [address] * Bacteria Culture, Aerobe / Anaerobe + Susc (01/06/2024 9:28 AM VENEREAL DISEASE INVESTIGATOR) Bacteria Cult, Aerobe/Anaerob e+Susc No growth after 14 days of incubation. 01/20/2024 12:02 PM VENEREAL DISEASE INVESTIGATOR DTL Hip, Right 01/06/2024 9:28 AM VENEREAL DISEASE INVESTIGATOR 01/06/2024 11:05 AM VENEREAL DISEASE INVESTIGATOR Comment:Specimen Source Site : Tissue #2 Narrative [facility] - 01/20/2024 12:02 PM VENEREAL DISEASE INVESTIGATOR Bacterial Culture: Placed in Bactec aerobic and Bactec anaerobic bottles us Vel Vinson M.D., M.B.A. LAB MICROBIOLOGY - GENERAL ORDERABLES Final Result Performing Organization Address [facility] Co de Phone Number [facility] [address] [place] [address], [facility] DTL [facility] [place] [facility] [address] [place] [address] * Bacteria Culture, Aerobe / Anaerobe + Susc (01/06/2024 9:28 AM VENEREAL DISEASE INVESTIGATOR) Bacteria Cult, Aerobe/Anaerob e+Susc No growth after 14 days of incubation. 01/20/2024 11:02 AM VENEREAL DISEASE INVESTIGATOR DTL Hip, Right 01/06/2024 9:28 AM VENEREAL DISEASE INVESTIGATOR 01/06/2024 11:00 AM VENEREAL DISEASE INVESTIGATOR Comment:Specimen Source Site : Tissue #3 Narrative [facility] - 01/20/2024 11:02 AM VENEREAL DISEASE INVESTIGATOR Bacterial Culture: Placed in Bactec aerobic and Bactec anaerobic bottles Vel Vinson M.D., M.B.A. LAB MICROBIOLOGY - GENERAL ORDERABLES Final Result [facility] [address] [place] [address], [facility] [address] [place] [address] * Acid Fast Smear for Mycobacterium (01/06/2024 9:28 AM VENEREAL DISEASE INVESTIGATOR) Acid Fast Smear For Mycobacterium Negative. 01/06/2024 7:20 PM VENEREAL DISEASE INVESTIGATOR DTL Tissue (Hip, Right) 01/06/2024 9:28 AM VENEREAL DISEASE INVESTIGATOR Narrative [facility] - 01/06/2024 7:20 PM VENEREAL DISEASE INVESTIGATOR Bacterial Culture: Placed in Bactec aerobic and Bactec anaerobic bottles Vel Vinson M.D., M.B.A. LAB MICROBIOLOGY - GENERAL ORDERABLES Final Result Performing Organization Address City/[facility]/ZIP Co de Phone Number [facility] [address] [place] [address], [facility] [address] [place] [address] * Acid Fast Smear for Mycobacterium (01/06/2024 9:28 AM VENEREAL DISEASE INVESTIGATOR) Acid Fast Smear For Mycobacterium Negative. 01/06/2024 7:20 PM VENEREAL DISEASE INVESTIGATOR DTL Tissue (Hip, Right) 01/06/2024 9:28 AM VENEREAL DISEASE INVESTIGATOR Narrative [facility] - 01/06/2024 7:20 PM VENEREAL DISEASE INVESTIGATOR Bacterial Culture: Placed in Bactec aerobic and Bactec anaerobic bottles Vel Vinson M.D., M.B.A. LAB MICROBIOLOGY - GENERAL ORDERABLES Final Result [facility] [address] [place] [address], [facility] [address] [place], [place] [id number] * Surgical Pathology, Frozen Lab (01/06/2024 9:13 AM VENEREAL DISEASE INVESTIGATOR) 01/08/2024 9:58 PM VENEREAL DISEASE INVESTIGATOR METH Participated in the Interpretation Nathen Pulido M.D. - Pathology Fellow 01/08/2024 9:58 PM VENEREAL DISEASE INVESTIGATOR METH Report electronically signed by Seble KumarBBelkisS., Ph.D. I verify that I have examined all relevant slides/material s for the specimen(s) and rendered or confirmed the diagnosis. 01/08/2024 9:58 PM VENEREAL DISEASE INVESTIGATOR METH Frozen Intraoperative Report A. Synovium, right hip, excision: Synovial tissue, negative for acute inflammation. Signed by Kennedi KumarS., Ph.D. 01/06/2024 2:27 PM 01/08/2024 9:58 PM VENEREAL DISEASE INVESTIGATOR METH Gross Description A. Received fresh labeled right hip is a 2.2 x 2.2 x 1.1 cm portion of pink-romero fibrous tissue. All submitted for frozen and permanent sections. Grossed by Yousif Hi M.S., PA([facility]). 01/08/2024 9:58 PM VENEREAL DISEASE INVESTIGATOR METH Block Summary A Right hip A1 Right hip -1 -frozen A2 Right hip -2 -frozen 01/08/2024 9:58 PM VENEREAL DISEASE INVESTIGATOR METH Interpretation FINAL DIAGNOSIS A. Synovium, right hip, excision: Synovial tissue with reactive changes, negative for acute inflammation. A portion of the testing process was performed at [facility] site [id number]. Digital imaging was used in the diagnostic assessment of this case. 01/08/2024 9:58 PM VENEREAL DISEASE INVESTIGATOR METH Tissue (Hip, Right) 01/06/2024 9:13 AM VENEREAL DISEASE INVESTIGATOR us Vel Vinson M.D., M.B.A. LAB SURG PATH LÓPEZ KNOWLES Final Result [facility] [address] [place] [address], [facility] METH [address] [facility] [address] [place] [address] * Bacteria Culture, Aerobe / Anaerobe + Susc (01/06/2024 9:08 AM VENEREAL DISEASE INVESTIGATOR) Pathologist [facility] Bacteria Cult, Aerobe/Anaerob e+Susc No growth after 14 days of incubation. 01/20/2024 12:02 PM VENEREAL DISEASE INVESTIGATOR DTL Hip, Right 01/06/2024 9:08 AM VENEREAL DISEASE INVESTIGATOR 01/06/2024 11:04 AM VENEREAL DISEASE INVESTIGATOR Comment:Specimen Source Site : Tissue Narrative [facility] - 01/20/2024 12:02 PM VENEREAL DISEASE INVESTIGATOR Bacterial Culture: Placed in Bactec aerobic and Bactec anaerobic bottles Vel Vinson M.D., M.B.A. LAB MICROBIOLOGY - GENERAL ORDERABLES Final Result Performing Organization Address City/[facility]/ZIP Co de Phone Number [facility] [address] [place] [address], [facility] [address] [place] [address] * Acid Fast Smear for Mycobacterium (01/06/2024 9:08 AM VENEREAL DISEASE INVESTIGATOR) Pathologist [facility] Acid Fast Smear For Mycobacterium Negative. 01/06/2024 6:16 PM VENEREAL DISEASE INVESTIGATOR DTL Tissue (Hip, Right) 01/06/2024 9:08 AM VENEREAL DISEASE INVESTIGATOR Narrative [facility] - 01/06/2024 6:16 PM VENEREAL DISEASE INVESTIGATOR Bacterial Culture: Placed in Bactec aerobic and Bactec anaerobic bottles Vel Vinson M.D., M.B.A. LAB MICROBIOLOGY - GENERAL ORDERABLES Final Result [facility] [address] [place] [address], [facility] [address] [place] [address] * Glucose, POCT (01/06/2024 9:00 AM VENEREAL DISEASE INVESTIGATOR) Pathologist [facility] Glucose, POCT, B 116 70 - 140 mg/dL 01/06/2024 9:02 AM VENEREAL DISEASE INVESTIGATOR PCDE Site ARTLINE 01/06/2024 9:02 AM VENEREAL DISEASE INVESTIGATOR PCDE Blood 01/06/2024 9:00 AM VENEREAL DISEASE INVESTIGATOR 01/06/2024 9:02 AM VENEREAL DISEASE INVESTIGATOR us Unknown Provider LAB POCT ORDERABLES-MANUAL Cata l Result Performing Organization Address City/[facility] Co de Phone Number [facility] [address] [place] [address], [place] PCDE [facility] [address] [place] [address] * Type and Screen (with Reflex Antibody ID) (01/06/2024 6:30 AM VENEREAL DISEASE INVESTIGATOR) Pathologist [facility] ABORh O Pos Not applicable 01/06/2024 6:58 AM VENEREAL DISEASE INVESTIGATOR ETRM Antibody Screen Negative Negative 01/06/2024 7:13 AM VENEREAL DISEASE INVESTIGATOR ETRM Type & Screen Expiration 01/09/2024 23:59 01/06/2024 6:58 AM VENEREAL DISEASE INVESTIGATOR ETRM Testing Location Matthew DEFAULT 01/06/2024 6:33 AM VENEREAL DISEASE INVESTIGATOR ETRM Blood (Blood, Venous) 01/06/2024 6:30 AM VENEREAL DISEASE INVESTIGATOR 01/06/2024 6:33 AM VENEREAL DISEASE INVESTIGATOR us Brittney IRWIN, P.A.-C. LAB BLOOD BANK TEST ORDERABLES Final Result Performing Organization Address [facility] Co de Phone Number [facility] [address] [place] [address], [facility] ETRM [facility] [address] [place] [address] * Glucose, POCT (01/06/2024 6:06 AM VENEREAL DISEASE INVESTIGATOR) Glucose, POCT, B 118 70 - 140 mg/dL 01/06/2024 6:10 AM VENEREAL DISEASE INVESTIGATOR PCDE Site Capillary 01/06/2024 6:10 AM VENEREAL DISEASE INVESTIGATOR PCDE Blood 01/06/2024 6:06 AM VENEREAL DISEASE INVESTIGATOR 01/06/2024 6:11 AM VENEREAL DISEASE INVESTIGATOR us Unknown Provider LAB POCT ORDERABLES-MANUAL Cata petit Result [facility] [address] [place] [address], [facility] PCDE [facility] [place] [facility] [address] [place] [address] documented in this encounter Visit Diagnoses Diagnosis Infection 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 Total Hip Arthroplasty Subsequent Right Pain Hip Right [M25.551] Decline Functional Status [R53.81] Aftercare Following Explantation Of Hip Joint Prosthesis documented in this encounter Admitting Diagnoses Diagnosis [...] Fri01/06/24 at 1700 Given 01/09/2024 6:10 AM VENEREAL DISEASE INVESTIGATOR 1,000 mg Given 01/08/2024 4:41 PM VENEREAL DISEASE INVESTIGATOR 1,000 mg Given 01/08/2024 10:49 AM VENEREAL DISEASE INVESTIGATOR 1,000 mg atorvastatin tablet 20 mg (Lipitor) 20 mg, oral, Daily at bedtime, First dose on Fri01/06/24 at 2100 Given 01/08/2024 9:52 PM VENEREAL DISEASE INVESTIGATOR 20 mg Given 01/07/2024 8:53 PM VENEREAL DISEASE INVESTIGATOR 20 mg Given 01/06/2024 8:18 PM VENEREAL DISEASE INVESTIGATOR 20 mg benzocaine-menthoL 15-3.6 mg per lozenge 1 lozenge (CepacoL) 1 lozenge, oral, As needed, sore throat, Starting on Fri01/06/24 at 1648 bisacodyL suppository 10 mg (Dulcolax) 10 mg, rectal, Daily PRN, constipation, Starting on Fri01/06/24 at 1648, Ordered sequence of administration: polyethylene glycol, then bisacodyl until BM achieved. Given 01/08/2024 4:41 PM VENEREAL DISEASE INVESTIGATOR 10 mg calcium carbonate chewable tablet 400 [...] and/or joint infection Given 01/09/2024 8:11 AM VENEREAL DISEASE INVESTIGATOR 500 mg Given 01/08/2024 9:44 PM VENEREAL DISEASE INVESTIGATOR 500 mg Given 01/08/2024 9:36 AM VENEREAL DISEASE INVESTIGATOR 500 mg ceFAZolin injection 2 g (Ancef) [...] clearance factors., Indications: Prophylaxis, surgicalIndications:Prophylaxis, surgical Given 01/07/2024 2:55 AM VENEREAL DISEASE INVESTIGATOR 2 g Given 01/06/2024 8:17 PM VENEREAL DISEASE INVESTIGATOR 2 g dexAMETHasone injection 8 mg (Decadron) 8 mg, intravenous, Once, On Fri01/07/24 at 0600, For 1 dose Given 01/07/2024 5:41 AM VENEREAL DISEASE INVESTIGATOR 8 mg enoxaparin injection 40 mg (Lovenox) 40 mg, subcutaneous, Daily, First dose on Fri01/07/24 at 0900 Given 01/08/2024 9:36 AM VENEREAL DISEASE INVESTIGATOR 40 mg Left Lower Abdomen Given 01/07/2024 8:42 AM VENEREAL DISEASE INVESTIGATOR 40 mg Le ft Upper Arm (Back) granisetron (PF) injection 1 mg (KytriL) 1 mg, intravenous, Once as needed, nausea, vomiting, Starting on Fri01/06/24 at 1408, For 1 dose, PACU (only), If patient does not respond to ondansetron or haloperidol. (Order of antiemetic administration - ondansetron then haloperidol or droperidol then granisetron) Given 01/06/2024 3:57 PM VENEREAL DISEASE INVESTIGATOR 1 mg haloperidol lactate injection 1 mg (HaldoL) [...] haloperidol then prochlorperazine) Given 01/08/2024 11:24 PM VENEREAL DISEASE INVESTIGATOR 1 mg HYDROmorphone (PF) injection 0.2 mg (Dilaudid) 0.2 mg, intravenous, Every 1 hour PRN, severe pain or score 7-10 of 10, Starting on e 01/06/24 at 2121, For 3 doses HYDROmorphone tablet [...] for pain? No Given 01/09/2024 8:19 AM VENEREAL DISEASE INVESTIGATOR 1 mg Given 01/08/2024 4:41 PM VENEREAL DISEASE INVESTIGATOR 1 mg Given 01/08/2024 10:49 AM VENEREAL DISEASE INVESTIGATOR 1 mg HYDROmorphone tablet 2 mg (Dilaudid) [...] chronically for pain? No insulin aspart U-100 (Carbohydrate Count) injection 0-20 Units (NovoLOG FlexPen) 0-20 Units, subcutaneous, Once, On Fri01/07/24 at 1215, For 1 dose, Simple or Complex Ratio: Simple, Carb Ratio - Simple (1 unit per __ grams of carbohydrates): 10 Given 01/07/2024 11:53 AM VENEREAL DISEASE INVESTIGATOR 4 Units Left Upper Arm (Back ) insulin aspart U-100 (Carbohydrate Count) injection 0-20 Units (NovoLOG FlexPen) 0-20 Units, subcutaneous, 3 times daily with meals, First dose (after last modification) on Fri01/07/24 at 1700, Simple or Complex Ratio: Simple, Carb Ratio - Simple (1 unit per __ grams of carbohydrates): 20 Given 01/07/2024 7:29 PM VENEREAL DISEASE INVESTIGATOR 6 Units Right Upper Arm (Back) insulin aspart U-100 (Carbohydrate Count) injection 0-20 Units (NovoLOG FlexPen) 0-20 Units, subcutaneous, Once, On Fri01/07/24 at 1530, For 1 dose, Simple or Complex Ratio: Complex, Carb Ratio - Breakfast (1 unit per __ grams of carbohydrates): 20, Carb Ratio - Lunch (1 unit per __ grams of carbohydrates): 20, Carb Ratio - Dinner (1 unit per __ grams of carbohydrates): 20 Given 01/07/2024 4:20 PM VENEREAL DISEASE INVESTIGATOR 3 Units Left Upper Arm (Back ) insulin aspart U-100 (Carbohydrate Count) injection 0-20 Units (NovoLOG FlexPen) 0-20 Units, subcutaneous, 3 times daily with meals, First dose (after last modification) on Sharifa 01/08/24 at 0800, Simple or Complex Ratio: Simple, Carb Ratio - Simple (1 unit per __ grams of carbohydrates): 15 Given 01/08/2024 6:55 PM VENEREAL DISEASE INVESTIGATOR 3 Units Left Upper Arm (Back ) Given 01/08/2024 2:07 PM VENEREAL DISEASE INVESTIGATOR 6 Units Le ft Upper Arm (Back) Given 01/08/2024 9:55 AM VENEREAL DISEASE INVESTIGATOR 5 Units Le ft Lower Abdomen insulin aspart U-100 injection 0-13 [...] 399: Call service writing Insulin orders Given 01/08/2024 2:07 PM VENEREAL DISEASE INVESTIGATOR 2 Units Left Upper Arm (Back ) Given 01/08/2024 9:44 AM VENEREAL DISEASE INVESTIGATOR 4 Units Le ft Lower Abdomen Given 01/07/2024 7:33 PM VENEREAL DISEASE INVESTIGATOR 6 Units Ri ght Upper Arm (Back) insulin [...] writing insulin orders Given 01/07/2024 9:51 PM VENEREAL DISEASE INVESTIGATOR 3 Units Left Upper Arm (Back ) Given 01/06/2024 9:40 PM VENEREAL DISEASE INVESTIGATOR 3 Units Ri ght Lower Abdomen insulin aspart U-100 injection 0-8 Units (NovoLOG FlexPen) 0-8 Units, subcutaneous, Every 2 hour PRN, high blood sugar, Nurse to determine and administer dose, Starting on Fri01/06/24 at 1408, For 2 doses, PACU (only), First dose at least 2 hours after any previous subcutaneous insulin. For glucose less than or equal to 70 mg/dL - initiate treatment of hypoglycemia. , Insulin Aspart: Correction Scale Insulin (For Diabetes Mellitus diagnosis), 71 - 139: 0 units, 140 - 179: 2 units, 180 - 219: 4 units, 220 - 259: 6 units, 260 - 299: 8 units, Greater than or equal to 300: Call anesthesia Given 01/06/2024 3:46 PM VENEREAL DISEASE INVESTIGATOR 4 Units Left Upper Arm (Back ) insulin NPH injection 4 Units 4 Units, subcutaneous, Every evening, First dose on Fri01/09/24 at 1800 insulin NPH injection 8 Units 8 Units, subcutaneous, Every morning, First dose on Fri01/08/24 at 1115 Given 01/08/2024 12:35 PM VENEREAL DISEASE INVESTIGATOR 8 Units Right Upper Arm (Theron k) insulin NPH injection 8 Units 8 Units, subcutaneous, Every morning, First dose on Fri01/09/24 at 0900 Given 01/09/2024 9:54 AM VENEREAL DISEASE INVESTIGATOR 8 Units Left Lower Abdomen ketorolac injection 15 mg (ToradoL) 15 mg, intravenous, Every 6 hours, First dose on Fri01/06/24 at 1830, For 4 doses, Adult IV push rate: Over 15 seconds. Peds IV push rate: Over 1 minute. Doses > 15 mg IV/IM are discouraged due to lack of additional analgesic benefit. Given 01/07/2024 5:41 AM VENEREAL DISEASE INVESTIGATOR 15 mg Given 01/07/2024 12:53 AM VENEREAL DISEASE INVESTIGATOR 15 mg Given 01/06/2024 5:32 PM VENEREAL DISEASE INVESTIGATOR 15 mg Lactated Ringer's bolus 1,000 mL 1,000 mL, intravenous, at 1,000 mL/hr, Administer over 1 Hours, Once, On Fri01/06/24 at 2145, For 1 dose New Bag 01/06/2024 9:33 PM VENEREAL DISEASE INVESTIGATOR 1,000 mL 1000 mL/hr Lactated Ringer's bolus 500 mL 500 mL, intravenous, at 500 mL/hr, Administer over 1 Hours, Once, On Fri01/07/24 at 0415, For 1 dose Bolus from Bag 01/07/2024 4:25 AM VENEREAL DISEASE INVESTIGATOR 500 mL 500 mL/hr Lactated Ringer's 75 mL/hr, intravenous, Continuous, Starting on Fri01/06/24 at 0630, Pre-Op New Bag 01/06/2024 10:37 PM VENEREAL DISEASE INVESTIGATOR 75 mL/hr 75 mL/hr Lactated Ringer's 20 mL/hr, intravenous, Continuous, Starting on Fri01/06/24 at 1330, PACU & Post-Op New Bag 01/07/2024 3:05 PM VENEREAL DISEASE INVESTIGATOR 20 mL/hr 20 mL/hr Continued from OR 01/06/2024 4:25 PM VENEREAL DISEASE INVESTIGATOR 20 mL/hr 20 mL/ hr levETIRAcetam solution 750 mg (Keppra) 750 mg, oral, 2 times daily, First dose on Fri01/06/24 at 2100, Needs crushed/solution for swallowing Given 01/09/2024 8:11 AM VENEREAL DISEASE INVESTIGATOR 750 mg Given 01/08/2024 9:45 PM VENEREAL DISEASE INVESTIGATOR 750 mg Given 01/08/2024 9:41 AM VENEREAL DISEASE INVESTIGATOR 750 mg loratadine tablet 10 mg (Claritin) [...] 6 hours PRN, nausea, vomiting, Starting on Fri01/06/24 at 1648, For 48 hours, Reassess for nausea or vomiting after at least 10 minutes. If nausea or vomiting persists administer next ordered antiemetic medications (order for antiemetic medication administration ondansetron then haloperidol then prochlorperazine). Given 01/06/2024 6:59 PM VENEREAL DISEASE INVESTIGATOR 4 mg ondansetron (PF) injection 4 mg (Zofran) 4 mg, intravenous, Every 6 hours PRN, nausea, vomiting, Starting on Sharifa 01/08/24 at 2244, For 48 hours, Reassess for nausea or vomiting after at least 10 minutes. If nausea or vomiting persists administer next ordered antiemetic medications (order for antiemetic medication administration ondansetron then haloperidol then prochlorperazine). Given 01/08/2024 10:51 PM VENEREAL DISEASE INVESTIGATOR 4 mg oxyCODONE IR tablet 10 mg (Roxicodone) 10 mg, oral, Every 4 hours PRN, severe pain or score 7-10 of 10, Starting on Fri01/06/24 at 1648, Second line therapy. If patient is greater than 7 after 2 hours, call service for new order. May also administer lower pain scale value dose of prescribed medication based on patient request. Given 01/07/2024 2:40 PM VENEREAL DISEASE INVESTIGATOR [address] tablet 40 mg (Protonix) 40 mg, oral, Daily before morning meal, First dose on Fri01/07/24 at 0700, pantoprazole 40 mg oral daily was interchanged for omeprazole 20 or 40 mg oral daily Swallow whole. Do NOT crush, chew, or split tablet. prochlorperazine injection 5 mg (Compazine) 5 mg, intravenous, Every 6 hours PRN, nausea, vomiting, Starting on Fri01/08/24 at 2244, For 48 hours, RASS must be -2 or higher to administer. Reassess for nausea/vomiting after at least 10 minutes. If nausea or vomiting persists administer next ordered antiemetic medications (order for antiemetic medication administration ondansetron then haloperidol then prochlorperazine) rivaroxaban tablet 10 mg (Xarelto) 10 mg, oral, Daily, First dose on Fri01/09/24 at 0900 Given 01/09/2024 8:11 AM VENEREAL DISEASE INVESTIGATOR 10 mg sennosides tablet 8.6 mg (Senokot) 8.6 mg, oral, 2 times daily, First dose on Fri01/07/24 at 0900 Given 01/07/2024 8:53 PM VENEREAL DISEASE INVESTIGATOR 8.6 mg sennosides-docusate sodium 8.6-50 mg per tablet 1 tablet (Senokot-S) 1 tablet, oral, 2 times daily, First dose on Fri01/06/24 at 2100, Do not give if patient has diarrhea. Given 01/08/2024 10:04 AM VENEREAL DISEASE INVESTIGATOR 1 tablet Given 01/07/2024 8:53 PM VENEREAL DISEASE INVESTIGATOR 1 tablet Given 01/07/2024 8:42 AM VENEREAL DISEASE INVESTIGATOR 1 tablet documented in this encounter Active and Recently Administered Medications Times are shown in VENEREAL DISEASE INVESTIGATOR. Scheduled Medication Order 01/07/2024 01/08/2024 01/09/2024 acetaminophen tablet 1,000 mg (TylenoL) 1,000 mg, oral, Every 6 hours, First dose on Fri01/06/24 at 1700 0536 (Given - Provider: Joy Valles R.N.)1113 (Given - Provider: Bisi Varma RTea.)1657 (Given - Provider: Bisi Varma R.N.)2254 (Not [...] Provider: Bisi Varma R.N.)2052 (Given - Provider: Bisi Varma R.N.) 0936 (Given - Provider: Marcela Johnson R.N.)2144 (Given - Provider: Jael RogersNBelkis) 0811 (Given - Provider: Elsie Grady RWilma) ceFAZolin injection 2 g (Ancef) (COMPLETED) 2 [...] Indications: Prophylaxis, surgical 0255 (Given - Provider: Joy Valles R.N.) dexAMETHasone injection 8 mg (Decadron) (COMPLETED) 8 mg, intravenous, Once, On Fri01/07/24 at 0600, For 1 dose 0541 (Given - Provider: Joy Valles RBelkisN.) enoxaparin injection 40 mg (Lovenox) (CANCELED) 40 mg, subcutaneous, Daily, First dose on Fri01/07/24 at 0900 0842 (Given - Provider: Arjun Fabian R.N.) 0936 (Given - Provider: Marcela Johnson RBelkisN.) insulin aspart U-100 (Carbohydrate Count) injection 0-20 Units (NovoLOG FlexPen) (COMPLETED) 0-20 Units, subcutaneous, Once, On Fri01/07/24 at 1215, For 1 dose, Simple or Complex Ratio: Simple, Carb Ratio - Simple (1 unit per __ grams of carbohydrates): 10 1153 (Given - Provider: Jael RogersNBelkis) insulin aspart U-100 (Carbohydrate Count) injection 0-20 Units (NovoLOG FlexPen) (CANCELED) 0-20 Units, subcutaneous, 3 times daily with meals, First dose (after last modification) on Fri01/07/24 at 1700, Simple or Complex Ratio: Simple, Carb Ratio - Simple (1 unit per __ grams of carbohydrates): 20 1929 (Given - Provider: Jael RogersNBelkis) insulin aspart [...] of carbohydrates): 20 1620 (Given - Provider: Bisi Varma RBelkisNBelkis) insulin aspart U-100 (Carbohydrate Count) injection 0-20 Units (NovoLOG FlexPen) (CANCELED) 0-20 Units, subcutaneous, 3 times daily with meals, First dose (after last modification) on Fri01/08/24 at 0800, Simple or Complex Ratio: Simple, Carb Ratio - Simple (1 unit per __ grams of carbohydrates): 15 0955 (Given - Provider: Jael FernandesN.)1407 (Given - Provider: Marcela Johnson RBelkisN.)1855 (Given - Provider: aMrcela Johnson RBelkisN.) 0800 (Due) insulin aspart U-100 injection 0-13 [...] Provider: Marcela Johnson R.N.)1407 (Given - Provider: Aleksandr Fernandes.N.)1843 (Not Given - Provider: Aleksandr Fernandes.N. - Reason: Order parameters not met) 0940 [...] 2151 (Not Given - Provider: Bisi Varma RBelkisN. - Reason: Order parameters not met - Comment: Blood sugar 120) insulin NPH injection 4 Units 4 Units, subcutaneous, Every evening, First dose on Fri01/09/24 at 1800 insulin NPH injection 8 Units (CANCELED) 8 Units, subcutaneous, Every morning, First dose on Fri01/08/24 at 1115 1235 (Given - Provider: Marcela Johnson R.N.) insulin NPH injection 8 Units 8 Units, subcutaneous, Every morning, First dose on Fri01/09/24 at 0900 0954 (Given - Provider: Elsie Grady R.N.) ketorolac injection 15 mg (ToradoL) (CANCELED) 15 [...] swallowing 0842 (Given - Provider: Arjun Fabian R.N.)2051 (Given - Provider: Bisi Varma R.N.) 0941 (Given - Provider: Marcela Johnson R.N.)2145 (Given - Provider: Bisi Varma R.N.) 0811 (Given - Provider: Elsie Grady R.N.) [...] 0900 0811 (Given - Provider: Elsie Grady RWilma) sennosides tablet 8.6 mg (Senokot) (CANCELED) 8.6 mg, oral, 2 times daily, First dose on Fri01/07/24 at 0900 0907 (Not Given - Provider: Arjun Fabian R.N. - Reason: Patient/family refused)2052 (Given - Provider: Bisi Varma R.N.) sennosides-docusate sodium 8.6-50 mg per tablet 1 tablet (Senokot-S) 1 tablet, oral, 2 times daily, First dose on Fri01/06/24 at 2100, Do not give if patient has diarrhea. 0842 (Given - Provider: Arjun Fabian R.N.)2052 (Given - Provider: Bisi Varma R.N.) 1004 (Given - Provider: Jael FernandesNBelkis)2146 (Not Given - Provider: Bisi Varma R.N. - Reason: Other - Comment: PATIENT HAVING LOOSE STOOLS) 0834 (Not Given - Provider: Elsie Grady RBelkisN. - Reason: Contraindicated) Continuous Medication Order 01/07/2024 01/08/2024 01/09/2024 Lactated Ringer's (CANCELED) 20 mL/hr, intravenous, Continuous, Starting on Fri01/06/24 at 1330, PACU & Post-Op 1505 (New Bag - Provider: Bisi Varma RWilma) PRN Medication Order 01/07/2024 01/08/2024 01/09/2024 benzocaine-menthoL [...] medication administration ondansetron then haloperidol then prochlorperazine) 2324 (Given - Provider: Joy Valles RWilma) HYDROmorphone (PF) injection 0.2 mg (Dilaudid) 0.2 [...] prochlorperazine). 2251 (Given - Provider: Bisi Varma R.N.) oxyCODONE IR tablet 10 mg (Roxicodone) (CANCELED)(Linked [...] request. 1440 (Given - Provider: Bisi Varma R.N.) prochlorperazine injection 5 mg (Compazine) 5 mg, [...] request. documented in this encounter Care Teams Precast Molder Relationship Specialty Start Date End Date Elsewhere, Pcp PCP - General Internal Medicine 10/03/23 documented as of this encounter
--- OUTSIDE RECORDS SUMMARY | 2024-01-22 16:35 | XMS_ITS | Encounter Summary ---
Author Organization [facility] Address [address] [place] [address] Care Team Providers Care Radiologist Name Role Phone Elsewhere, Pcp Primary Care Provider Unavailabl e Encounter Details Date Type Department Care Team (Late st Contact Info) Description 01/06/2024 Ancillary Procedure Department of Orthopedic Surgery Social History Tobacco Use Types Packs/Day Years Used Date Smoking Tobacco: Never Passive Smoke Exposure: Never Smokeless Tobacco: Never Alcohol Use Standard Drinks/Week Comments Never 2 (1 standard drink = 0.6 oz pur e alcohol) [facility] Utilities Answer Date Recorded In the [...] your living situation today? I have a [facility] place to live 11/29/2023 Sex and Gender Information Value Date Recorded Sex Assigned at Male 07/26/2022 1:30 PM CDT Legal Sex Male 6:41 AM JOGGLE PRESS OPERATOR Gender Identity Male 07/26/2022 1:32 PM CDT Sexual Orientation Straight 07/26/2022 1: 32 PM CDT documented as of this encounter Plan of Treatment Upcoming Encounters Date Type Department Care Team (Latest Contact Info) Description 01/27/2024 12:30 PM JOGGLE PRESS OPERATOR Appointment Department of Orthopedic Surgery in [place], [place] [address] [place] [phone] Lizeth Joe, DEBRAS, P.A.-C. [address] [place] [phone] Discharge Disposition: Home or Self Care 02/19/2024 1:45 PM JOGGLE PRESS OPERATOR Appointment Department of Radiology, [facility], in [place], [place] [address] [place] [phone] Fantasma Butt M.D. [address] [place] [phone] 02/20/2024 11:00 AM JOGGLE PRESS OPERATOR Virtual Visit Department of Radiology, [facility], in [place], [place] [address] [place] [phone] Radha Ojeda P.A.-C., M.S. [address] [place] [phone] 04/13/2024 2:00 PM JOGGLE PRESS OPERATOR Clinical Communication Virtual Review in [place], [place] 200 [place] [address] 04/15/2024 12:00 PM JOGGLE PRESS OPERATOR Appointment Department of Radiology, [facility], in [place], [place] [address] [place] [phone] Brittney Piña, Jose Francisco IRWIN. [address] [place] [phone] 04/15/2024 1:00 PM JOGGLE PRESS OPERATOR Office Visit Department of Orthopedic Surgery in [place], [place] [address] [place] [phone] Vel Vinson M.D., M.B.A. [address] [place] [phone] documented as of this encounter Procedures Procedure Name Priority Date/Time Associated Diagnosis Comments ORTHOPEDIC SURGERY IMAGE EXAM Routine 01/06/2024 12:00 AM JOGGLE PRESS OPERATOR documented in this encounter Results * Hip-Orthopedic Surgery Image Exam (01/06/2024 12:00 AM JOGGLE PRESS OPERATOR) Narrative IINE - 01/06/2024 4:44 PM JOGGLE PRESS OPERATOR This order has been created and auto-finalized to support the import of images acquired without order. The clinical documentation to support these images can be found on the encounter that produced images. us Provider Not In System IMG NON RAD IMAGING PROCE AUGUST Final Result IIMS NA documented in this encounter Visit Diagnoses Not on filedocumented in this encounter Care Teams Radiologist Relationship Specialty Start Date End Date Elsewhere, Pcp PCP - General Internal Medicine 10/03/23 documented as of this encounter
--- OUTSIDE RECORDS SUMMARY | 2024-01-22 16:35 | XMS_ITS | Encounter Summary ---
Author Organization [facility] Address [address] [place] [address] Care Team Providers Care Radio Engineer Name Role Phone Elsewhere, Pcp Primary Care Provider Unavailabl e Reason for Referral * Outpatient (Routine) - Authorized Specialty Diagnoses / Procedures Referred By Contac t Referred To Contact Diagnoses Arthroplasty Total Hip Replacement Status Post Right Procedures DX Hip And Pelvis Right 2-3 Views Brittney Piña MPAS PBelkisA.-C. Phone: tel: fax: [facility] Referral ID Status Reason Start Date Expiration Date V isits Requested Visits Authorized [id number] Authorized 01/05/2024 01/04/2025 1 1 R TREATMENT PLANT SUPERVISOR * Outpatient (Routine) - Authorized Specialty Diagnoses / Procedures Referred By Contac t Referred To Contact Orthopedic Surgery Brittney Piña MPAS, P.A.-C. Phone: tel: fax: Vel Vinson M.D., M.B.A. 200 [place] [address] Phone: tel: fax: Referral ID Status Reason Start Date Expiration Date V isits Requested Visits Authorized [id number] Authorized 01/05/2024 07/06/2025 1 1 R TREATMENT PLANT SUPERVISOR Reason for Visit * Outpatient (Routine) - Closed Specialty Diagnoses / Procedures Referred By Tammi basilio Referred To Contact Orthopedic Surgery Vel Vinson M.D., M.B.A. [address] [place] [phone] Phone: tel: fax: [facility] Referral ID Status Reason Start Date Expiration Date Visits Re quested Visits Authorized [id number] Closed 09/02/2023 03/03/2025 1 1 Encounter Details Date Type Department Care Team (Late st Contact Info) Description 01/05/2024 11:15 AM WATER TREATMENT PLANT SUPERVISOR Office Visit Department of Orthopedic Surgery in [place], [place] [address] [place] [phone] Vel Vinson M.D., M.B.A. [address] [place] [phone] Arthroplasty Total Hip Replacement Status Post Right (Primary Dx) Social History Tobacco Use Types Packs/Day Years Used Date Smoking Tobacco: Never Passive Smoke Exposure: Never Smokeless Tobacco: Never Alcohol Use Standard Drinks/Week Comments Never 2 (1 standard drink = 0.6 oz pur e alcohol) [facility] Utilities Answer Date Recorded In the past 12 months has [facility] [employer], gas, oil, or water [employer] threatened to shut off services in [...] your living situation today? I have a [facility] place to live 11/29/2023 Sex and Gender Information Value Date Recorded Sex Assigned at Male 07/26/2022 1:30 PM CDT Legal Sex Male 6:41 AM WATER TREATMENT PLANT SUPERVISOR Gender Identity Male 07/26/2022 1:32 PM CDT Sexual Orientation Straight 07/26/2022 1: 32 PM CDT documented as of this encounter Progress Notes * Brittney Piña, DEBRAS, P.A.-C. - 01/05/2024 11:15 AM CST CHIEF COMPLAINT/PURPOSE OF VISIT Preoperative surgical listing visit for anticipated right total hip arthroplasty revision - reimplantation. HISTORY OF PRESENT ILLNESS Estevan Lester is a pleasant 59 y.o. male who presents to clinic today for follow-up of debilitating right hip pain. The patient has failed conservative treatment and would like to proceed withthe above procedure. PHYSICAL EXAMINATION General: The physical examination has been documented in the original consultation. There are no changes from the initial consultation. Of note, a skin examination of the bilateral feet as well as the right hip and buttock regions was performed during clinic today with the verbal consent of the patient and his two sisters (legal guardians). A small superficial abrasion was observed on the lateral right hip, as well as a small erythematous patch around 1 cm in size on the sacrum. Skin exam otherwise unremarkable. 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 The patient is in the process of completing the preoperative evaluation, including preoperative medical clearance, laboratories, and appropriate imaging studies. Medications and allergies were re-reviewed. The patient was provided with chlorhexidine packets and instructed on the required preoperative washes. In addition, the patient was made aware of the NPO rules, signed the written informed consent, and was given the surgical listing card. I have discussed the increased risk of periprosthetic joint infection as well as venous thromboembolism and the precautions we will take. We discussed his increased of medical complications. 1. Perioperative antibiotics: Ancef 2. DVT prophylaxis: Enoxaparin 40 mg once daily POD 1, then resume Xarelto 10 mg daily POD 2-3 3. Planned post-op disposition: More than 2 nights (inpatient) 4. Postoperative antibiotics: Yes, as managed by Orthopedic Infectious Diseases INFORMED CONSENT: We discussed the risks, benefits, and alternatives to a total hip arthroplasty. We discussed alternatives to a total hip arthroplasty and potential risks of surgery. Patient understands that the risks include but are not limited to medical complications, infection, bleeding, nerve damage, blood clots, prosthetic loosening, wear or failure, wound healing complications, ligament or tendon problems,dislocation, intraoperative or postoperative fracture, leg length discrepancy, or ongoing pain. We also discussed the 3 approaches to the hip we perform including the direct anterior, direct lateral,and posterior approaches. The patient understands that with the posterior approach there is an increased risk of intraoperative sciatic nerve injury as well as postoperative dislocation and with an anterior approach an increased risk of intraoperative femoral nerve injury as well as fracture and wound complications. In addition, we explained that there is a risk of exposure to COVID-19 within thefacility. In addition to the risks of the planned procedure discussed in detail, we also discussed the possible need for a blood transfusion. We discussed advance directives and the necessity of other members of the healthcare team participating in the procedure. We discussed the possibility of overlapping pr ocedures during non-critical portions of the case and that a qualified surgeon would be available if needed. All questions pertaining to the procedure and risks were answered and the patient was in agreement with the plan and wishes to proceed. We reviewed the fact that the patient's surgery may involve the use of a medical staff services manager made by a company with which I or one of my partners have collaborated to design, develop, or improve orthopedic implants, instruments, or products. Both the [facility] and the individual surgeons involved receive royalty payments from the use of those specific devices at other institutions, but no royalties o r any other payments are paid for the use of those devices with any [facility] patient. The clinical rationale for the use of those devices as well as the availability and applicability of alternative devices was reviewed. The patient understands that the final decision for the use of a specific medical staff services manager often is made at the time of surgery. All of the patient's questions were answered; the patient understands and agrees with my approach to device selection. All questions pertaining to the procedure and risks were answered and the patient agreed to proceed. Cosigned by Vel Vinson M.D., M.B.A. at 01/05/2024 4:20 PM WATER TREATMENT PLANT SUPERVISOR R TREATMENT PLANT SUPERVISOR Associated attestation - Vel Vinson M.D., M.B.A. - 01/05/2024 4:20 PM WATER TREATMENT PLANT SUPERVISOR I saw and evaluated the patient, participating in the [place] portions of the service. I reviewed the Advanced Practice Provider's note. I agree with the Advanced Practice Provider???s findings and plan. documented in this encounter Plan of Treatment Upcoming Encounters Date Type Department Care Team (Latest Contact Info) Description 01/27/2024 12:30 PM WATER TREATMENT PLANT SUPERVISOR Appointment Department of Orthopedic Surgery in [address] [phone] Lizeth Joe MPAS, P.Yun.-C. [address] [place] [phone] Discharge Disposition: Home or Self Care 02/19/2024 1:45 PM WATER TREATMENT PLANT SUPERVISOR Appointment Department of Radiology, [facility] in [address] [phone] Fantasma Butt M.D. [address] [place] [phone] 02/20/2024 11:00 AM WATER TREATMENT PLANT SUPERVISOR Virtual Visit Department of Radiology, [facility], in [address] [phone] Radha Ojeda P.A.-C., M.S. [address] [place] [phone] 04/13/2024 2:00 PM WATER TREATMENT PLANT SUPERVISOR Clinical Communication Virtual Review in [address] [phone] 04/15/2024 12:00 PM WATER TREATMENT PLANT SUPERVISOR Appointment Department of Radiology, [facility], in [address] [phone] Brittney Piña MPAS, P.A.-C. [address] [place] [phone] 04/15/2024 1:00 PM WATER TREATMENT PLANT SUPERVISOR Office Visit Department of Orthopedic Surgery in [address] [phone] Vel Vinson M.D., M.B.A. [address] [place] [phone] Scheduled Orders Name Type Priority Associated Diagnoses Orde r Schedule DX Hip And Pelvis Right 2-3 Views Imaging RAD - Routine (most inpatients and all outpatients) Arthroplasty Total Hip Replacement Status Post Right Expected: 04/06/2024 (Approximate), Expires: 01/04/2025 Scheduled Referrals Name Type Priority Associated Diagnoses Order Schedule Orthopedic Surgery Post Op (clinic) Outpatient Referral Routine Expected: 04/06/2024 (Approximate), Expires: 04/06/2025 documented as of this encounter Visit Diagnoses Diagnosis Arthroplasty Total Hip Replacement Status Post Right- Primary documented in this encounter Care Teams Radio Engineer Relationship Specialty Start Date End Date Elsewhere, Pcp PCP - General Internal Medicine 10/03/23 documented as of this encounter
--- OUTSIDE RECORDS SUMMARY | 2024-01-22 16:35 | XMS_ITS | Encounter Summary ---
Author Organization [facility] Address [address] [place] [address] Care Team Providers Care Area Director Name Role Phone Elsewhere, Pcp Primary Care Provider Unavailabl e Reason for Referral * Outpatient (Routine) - Authorized Specialty Diagnoses / Procedures Referred By Tammi t Referred To Contact Anesthesiology Diagnoses Arthroplasty Total Hip Replacement Status Post Right Brittney Piña MPAS, P.A.-C. Phone: tel: fax: [facility] Referral ID Status Reason Start Date Expiration Date V isits Requested Visits Authorized [id number] Authorized 01/08/2024 07/09/2025 1 1 ER VARNISHER Encounter Details Date Type Department Care Team (Late st Contact Info) Description 01/08/2024 Orders Only Department of Orthopedic Surgery in [place], [place] [address] [place] [phone] Brittney Piña MPAS, P.A.-C. [address] [place] [phone] Arthroplasty Total Hip Replacement Status Post Right (Primary Dx) Social History Tobacco Use Types Packs/Day Years Used Date Smoking Tobacco: Never Passive Smoke Exposure: Never Smokeless Tobacco: Never Alcohol Use Standard Drinks/Week Comments Never 2 (1 standard drink = 0.6 oz pur e alcohol) [facility] Utilities Answer Date Recorded In the past 12 months has th e electric, gas, oil, or water [employer] threatened to shut off services in your [...] your living situation today? I have a [facility] place to live 01/09/2024 Sex and Gender Information Value Date Recorded Sex Assigned at Male 07/26/2022 1:30 PM CDT Legal Sex Male 6:41 AM ROLLER VARNISHER Gender Identity Male 07/26/2022 1:32 PM CDT Sexual Orientation Straight 07/26/2022 1: 32 PM CDT documented as of this encounter Plan of Treatment Upcoming Encounters Date Type Department Care Team (Latest Contact Info) Description 01/27/2024 12:30 PM ROLLER VARNISHER Appointment Department of Orthopedic Surgery in [address] [phone] Lizeth Joe MPAS, P.A.-C. [address] [place] [phone] Discharge Disposition: Home or Self Care 02/19/2024 1:45 PM ROLLER VARNISHER Appointment Department of Radiology, [facility], in [place], [place] [address] [place] [phone] Fantasma Butt M.D. [address] [place] [phone] 02/20/2024 11:00 AM ROLLER VARNISHER Virtual Visit Department of Radiology, [facility], in [address] [phone] Radha Ojeda PNadir-C., M.S. [address] [place] [phone] 04/13/2024 2:00 PM ROLLER VARNISHER Clinical Communication Virtual Review in [address] [phone] 04/15/2024 12:00 PM ROLLER VARNISHER Appointment Department of Radiology, [facility], in [address] [phone] Brittney Piña MPAS, P.A.-C. [address] [place] [phone] 04/15/2024 1:00 PM ROLLER VARNISHER Office Visit Department of Orthopedic Surgery in [place], [place] [address] [place] [phone] Vel Vinson M.D., M.B.A. [address] [place] [phone] Scheduled Orders Name Type Priority Associated Diagnoses Orde r Schedule CBC-Preop with reflex anemia panel Lab Routine Arthroplasty Total Hip Replacement Status Post Right Expected: 02/19/2024, Expires: 04/09/2025 Scheduled Referrals Name Type Priority Associated Diagnoses Order Schedule Preoperative Medical Evaluation - WANG Anemia Consult (clinic) Outpatient Referral Routine Arthroplasty Total Hip Replacement Status Post Right 1 Occurrences starting 01/08/2024 until 04/09/2025 documented as of this encounter Visit Diagnoses Diagnosis Arthroplasty Total Hip Replacement Status Post Right- Primary documented in this encounter Care Teams Area Director Relationship Specialty Start Date End Date Elsewhere, Pcp PCP - General Internal Medicine 10/03/23 documented as of this encounter
--- OUTSIDE RECORDS SUMMARY | 2024-01-22 16:36 | XMS_ITS | Encounter Summary ---
Author Organization [facility] Address [address] [place] [address] Care Team Providers Care Checker/Stocker Name Role Phone Elsewhere, Pcp Primary Care [...] oz pur e alcohol) [facility] Utilities Answer Date Recorded In the past 12 months has e electric, gas, oil, or water [employer] threatened to shut off services in your [...] PM CDT Legal Sex Male 6:41 AM PRACTICE OR STUDENT TEACHER Gender Identity Male 07/26/2022 1:32 PM CDT Sexual Orientation Straight 07/26/2022 1: 32 PM CDT documented as of this encounter Plan of Treatment Upcoming Encounters Date Type Department Care Team (Latest Contact Info) Description 01/27/2024 12:30 PM PRACTICE OR STUDENT TEACHER Appointment Department of Orthopedic Surgery in [place], [place] [address] [place] [phone] Lizeth Joe MPAS, P.A.-C. [address] [place] [phone] Discharge Disposition: Home or Self Care 02/19/2024 1:45 PM PRACTICE OR STUDENT TEACHER Appointment Department of Radiology, [facility], in [place], [place] [address] [place] [phone] Fantasma Butt M.D. [address] [place] [phone] 02/20/2024 11:00 AM PRACTICE OR STUDENT TEACHER Virtual Visit Department of Radiology, [facility], in [place], [place] [address] [place] [phone] Radha Ojeda P.A.-C., M.S. [address] [place] [phone] 04/13/2024 2:00 PM PRACTICE OR STUDENT TEACHER Clinical Communication Virtual Review in [place], [place] [address] [place] [phone] 04/15/2024 12:00 PM PRACTICE OR STUDENT TEACHER Appointment Department of Radiology, [facility], in [place], [place] [address] [place] [phone] Brittney Piña, DC, PNadir-C. [address] [place] [phone] 04/15/2024 1:00 PM PRACTICE OR STUDENT TEACHER Office Visit Department of Orthopedic Surgery in [place], [place] [address] [place] [phone] Vel Vinson M.D., M.B.A. [address] [place] [phone] documented as of this encounter Visit Diagnoses Not on filedocumented in this encounter Additional Health Concerns Infection Onset Date Last Indicated Resolved Time COVID19 Pending 01/20/2024 01/20/2024 01/20/2024 9 :04 AM PRACTICE OR STUDENT TEACHER documented as of this encounter Care Teams Checker/Stocker Relationship Specialty Start Date End Date Elsewhere, Pcp PCP - General Internal Medicine 10/03/23 documented as of this encounter
--- OUTSIDE RECORDS SUMMARY | 2024-01-22 16:36 | XMS_ITS | Encounter Summary ---
Author Organization [facility] Address [address] [place] [address] Care Team Providers Care Vacation Sales Advisor Name Role Phone Elsewhere, Pcp Primary Care Provider Unavailabl e Reason for Referral * Outpatient (Routine) - Authorized Specialty Diagnoses / Procedures Referred By Tammi basilio Referred To Contact Diagnoses Stroke (HCC) Maurisio Peoples M.D. [address] [place] [phone] Phone: tel: fax: Referral ID Status Reason Start Date Expiration Date Visits Requested Visits Authorized [id number] Authorized Patient Preference 4 06/11/2025 1 1 Encounter Details Date Type Department Care Team (Late st Contact Info) Description 12/11/2023 Orders Only Department of Orthopedic Surgery in [place], [place] [address] [place] [phone] Maurisio Peoples M.D. [address] [place] [phone] Stroke (HCC) (Primary Dx) Social History Tobacco Use Types Packs/Day Years Used Date Smoking Tobacco: Never Passive Smoke Exposure: Never Smokeless Tobacco: Never Alcohol Use Standard Drinks/Week Comments Never 2 (1 standard drink = 0.6 oz pur e alcohol) [facility] Utilities Answer Date Recorded In the past [...] your living situation today? I have a [facility] place to live 11/29/2023 Sex and Gender Information Value Date Recorded Sex Assigned at Male 07/26/2022 1:30 PM CDT Legal Sex Male 6:41 AM FIBERGLASS BOAT ASSEMBLY SUPERVISOR Gender Identity Male 07/26/2022 1:32 PM CDT Sexual Orientation Straight 07/26/2022 1: 32 PM CDT documented as of this encounter Plan of Treatment Upcoming Encounters Date Type Department Care Team (Latest Contact Info) Description 01/27/2024 12:30 PM FIBERGLASS BOAT ASSEMBLY SUPERVISOR Appointment Department of Orthopedic Surgery in [address] [phone] Lizeth Joe MPAS, P.A.-C. [address] [place] [phone] Discharge Disposition: Home or Self Care 02/19/2024 1:45 PM FIBERGLASS BOAT ASSEMBLY SUPERVISOR Appointment Department of Radiology, [facility] in [address] [phone] Fantasma Butt M.D. [address] [place] [phone] 02/20/2024 11:00 AM FIBERGLASS BOAT ASSEMBLY SUPERVISOR Virtual Visit Department of Radiology, [facility], in [address] [phone] Radha Ojeda PNadir-Venu., M.S. [address] [place] [phone] 04/13/2024 2:00 PM FIBERGLASS BOAT ASSEMBLY SUPERVISOR Clinical Communication Virtual Review in [place], [place] 200 [place] [phone] 04/15/2024 12:00 PM FIBERGLASS BOAT ASSEMBLY SUPERVISOR Appointment Department of Radiology, [facility] in [address] [phone] Brittney Piña MPAS, P.A.-C. [address] [place] [phone] 04/15/2024 1:00 PM FIBERGLASS BOAT ASSEMBLY SUPERVISOR Office Visit Department of Orthopedic Surgery in [place], [place] [address] [place] [phone] Vel Vinson M.D., M.B.A. [address] [place] [phone] documented as of this encounter Visit Diagnoses Diagnosis Stroke (HCC)- Primary documented in this encounter Care Teams Vacation Sales Advisor Relationship Specialty Start Date End Date Elsewhere, Pcp PCP - General Internal Medicine 10/03/23 documented as of this encounter
--- OUTSIDE RECORDS SUMMARY | 2024-01-22 16:36 | XMS_ITS | Encounter Summary ---
Author Organization [facility] Address [address] [place] [phone] Care Team Providers Care Motion Picture Narrator Name Role Phone Elsewhere, Pcp Primary Care Provider Unavailabl e Reason for Visit * Auth/Cert (Routine) Specialty Diagnoses / Procedures Referred By Tammi t Referred To Contact Diagnoses Anemia Hemorrhage Gastrointestinal Procedures ER Referral ID Status Reason Start Date Expiration Date Visits Re quested Visits Authorized [id number] 1 1 Encounter Details Date Type Department Care Team (Latest Contact Info) Description 12/02/2023 11:25 AM CDT Anesthesia Event Division of Gastroenterology in [place], [place] [address] [place] [phone] Joreg Del Rosario APRN, CRNA, DNAP [address] [place] [phone] Char Rudolph M.D. [address] [place] [phone] Anesthesia Record Procedure Summary Procedure Name Responsible Anesthesiologist Anesthesia Start Time Anesthesia Stop Time COLONOSCOPY Jorge Del Rosario A PRN CLINICAL RN MANAGER, DNAP 12/02/23 1125 12/02/23 1220 Events Date [...] Jean R.N., C.W.O.C.N. Peripheral IV Placement Date: 11/28/23; Placement Time: 1525; Existing LDA Placed by: EMS; Catheter Size: 20 G; Orientation: Left; Location: Antecubital; Removal Date: 12/03/23; Removal Time: 0823; Removal Reason: Patient discharged 11/28/23 1525 by Cyndie Haywood R.NBelkis 12/03/23 0823 by Belia Sanders External Urinary Catheter 11/28/23; 1530; Male; 12/03/23; 0944 11/28/23 1530 by Cyndie Haywood R.NBelkis 12/03/23 0944 by Eileen Amanda RWilma Peripheral IV Placement Date: 11/28/23; Placement Time: 1606; Catheter Size: 20 G; Orientation: Lower, Posterior, Right; Location: Forearm; Site Prep: Chlorhexidine (Preferred); Technique: Transillumination; Inserted by: TJ; Removal Date: 12/03/23; Removal Time: 0841; Removal Reason: Patient discharged 11/28/23 1606 by Joss Alva R.N. 12/03/23 0841 by Belia Sanders documented in this encounter Social History Tobacco Use Types Packs/Day Years Used Date Smoking Tobacco: Never Passive Smoke Exposure: Never Smokeless Tobacco: Never Alcohol Use Standard Drinks/Week Comments Never 2 (1 standard drink = 0.6 oz pur e alcohol) [facility] Utilities Answer Date Recorded In the past 12 months has e [employer], [employer], oil, or water [employer] threatened to shut off services in your [...] your living situation today? I have a [facility] to live 11/29/2023 Sex and Gender Information Value Date Recorded Sex Assigned at Male 07/26/2022 1:30 PM CDT Legal Sex Male 6:41 AM ORACLE DRM CONSULTANT Gender Identity Male 07/26/2022 1:32 PM CDT Sexual Orientation Straight 07/26/2022 1: 32 PM CDT documented as of this encounter OR Notes * Anesthesia Postprocedure Evaluation - Jorge Del Rosario APRN, CRNA, DNAP - 12/02/2023 12:22 PM CDT Patient: Estevan Lester Procedure Summary Date: 12/02/23 Room / Location: Division of Gastroenterology in [place], [place] Anesthesia Start: 1125 Anesthesia Stop: 1220 [...] Procedure: COLONOSCOPY Location: Division of Gastroenterology in [place], [place] Pertinent components of the patient's history [...] with patient /legal guardian or through an geriatric nurse. Risks/Benefits/Alternatives of Blood transfusion discussed with patient [...] (Latest Contact Info) Description 01/27/2024 12:30 PM ORACLE DRM CONSULTANT Appointment Department of Orthopedic Surgery in [place] [id number] [place] [phone] Lizeth Joe MPAS, P.A.-C. [address] [place] [phone] Discharge Disposition: Home or Self Care 02/19/2024 1:45 PM ORACLE DRM CONSULTANT Appointment Department of Radiology, [facility] in [address] [phone] Fantasma Butt M.D. [address] [place] [phone] 02/20/2024 11:00 AM ORACLE DRM CONSULTANT Virtual Visit Department of Radiology, [facility], in [address] [phone] Radha Ojeda P.A.-C., M.S. [address] [place] [phone] 04/13/2024 2:00 PM ORACLE DRM CONSULTANT Clinical Communication Virtual Review in [place], [place] 200 [place] [phone] 04/15/2024 12:00 PM ORACLE DRM CONSULTANT Appointment Department of Radiology, [facility], in [address] [phone] Brittney Piña MPAS, P.A.-C. [address] [place] [phone] 04/15/2024 1:00 PM ORACLE DRM CONSULTANT Office Visit Department of Orthopedic Surgery in [address] [phone] Vel Vinson M.D., M.B.A. [address] [place] [phone] documented as of this encounter Visit Diagnoses [...] mg documented in this encounter Care Teams Motion Picture Narrator Relationship Specialty Start Date End Date Elsewhere, Pcp PCP - General Internal Medicine 10/03/23 documented as of this encounter
--- OUTSIDE RECORDS SUMMARY | 2024-01-22 16:36 | XMS_ITS | Encounter Summary ---
Author Organization [facility] Address 200 [place] [address] Care Team Providers Care Electrochemist Name Role Phone Elsewhere, Pcp Primary Care Provider Unavailabl e Reason for Visit * Outpatient (Routine) - Closed Specialty Diagnoses / Procedures Referred By Tammi basilio Referred To Contact Vascular Medicine Diagnoses Infection Total Hip Arthroplasty Subsequent Right Procedures Vascular Medicine - Thrombophilia periprocedural eConsult Vel Vinson M.D., M.B.A. 200 [place] [address] Phone: tel: fax: [facility] Referral ID Status Reason Start Date Expiration Date Visits Re quested Visits Authorized [id number] Closed 09/02/2023 09/01/2024 1 1 Encounter Details Date Type Department Care Team (Latest Contact Info) Description 12/08/2023 8:00 AM CDT Internal E-Consult Department of Vascular Medicine in [place], [place] 200 [place] [phone] Ann Montoya APRN, C.N.P., M.S. 200 [place] [phone] Infection Total Hip Arthroplasty Subsequent Right Social History Tobacco Use Types Packs/Day Years Used Date Smoking Tobacco: Never Passive Smoke Exposure: Never Smokeless Tobacco: Never Alcohol Use Standard Drinks/Week Comments Never 2 (1 standard drink = 0.6 oz pur e alcohol) [facility] Utilities Answer Date Recorded In the past 12 months has th e electric, gas, oil, or water [employer] threatened to shut off services in your [...] PM CDT Legal Sex Male 6:41 AM HAND ENDBAND CUTTER Gender Identity Male 07/26/2022 1:32 PM CDT [...] based entirely upon information available in the [facility] electronic medical record. Clinical question to be [...] minutes or more of medical review. Ask [place] Expert periprocedural anticoagulation calculator [email or web address] documented in this encounter Plan of Treatment Upcoming Encounters Date Type Department Care Team (Latest Contact Info) Description 01/27/2024 12:30 PM HAND ENDBAND CUTTER Appointment Department of Orthopedic Surgery in [place], [place] [address] [place] [phone] Lizeth Joe MPAS, P.A.-C. [address] [place] [phone] Discharge Disposition: Home or Self Care 02/19/2024 1:45 PM HAND ENDBAND CUTTER Appointment Department of Radiology, [facility], in [place], [place] [address] [place] [phone] Fantasma Butt M.D. [address] [place] [phone] 02/20/2024 11:00 AM HAND ENDBAND CUTTER Virtual Visit Department of Radiology, [facility], in [place], [place] [address] [place] [phone] Radha Ojeda P.A.-C., M.S. [address] [place] [phone] 04/13/2024 2:00 PM HAND ENDBAND CUTTER Clinical Communication Virtual Review in [place], [place] 200 [place] [phone] 04/15/2024 12:00 PM HAND ENDBAND CUTTER Appointment Department of Radiology, [facility], in [place], [place] [address] [place] [phone] Brittney Piña, [place], Jose Francisco. [address] [place] [phone] 04/15/2024 1:00 PM HAND ENDBAND CUTTER Office Visit Department of Orthopedic Surgery in [place], [place] [address] [place] [phone] Vel Vinson M.D., M.B.A. [address] [place] [phone] documented as of this encounter Visit Diagnoses Diagnosis Infection Total Hip Arthroplasty Subsequent Right documented in this encounter Care Teams Electrochemist Relationship Specialty Start Date End Date Elsewhere, Pcp PCP - General Internal Medicine 10/03/23 documented as of this encounter
--- OUTSIDE RECORDS SUMMARY | 2024-01-22 16:36 | XMS_ITS | Encounter Summary ---
Author Organization [facility] Address [address] [place] [address] Care Team Providers Care Manager Line Name Role Phone Elsewhere, Pcp Primary Care Provider Unavailabl e Encounter Details Date Type Department Care Team (Late st Contact Info) Description 12/29/2023 Orders Only Department of Orthopedic Surgery in [place], [place] [address] [place] [phone] Brittney Piña, [facility], P.[facility].-C. [address] [place] [phone] Anemia (Primary Dx) Social History Tobacco Use Types Packs/Day Years Used Date Smoking Tobacco: Never Passive Smoke Exposure: Never Smokeless Tobacco: Never Alcohol Use Standard Drinks/Week Comments Never 2 (1 standard drink = 0.6 oz pur e alcohol) [facility] Utilities Answer Date Recorded In the past 12 months has [facility] [employer], gas, oil, or water [employer] threatened to shut off services in your [...] money to buy more. Never true 01/09/20 Within the past 12 months, t he [...] [facility] 01/09/2024 Sex and Gender Information Value Date Recorded Sex Assigned at Male 07/26/2022 1:30 PM CDT Legal Sex Male 6:41 AM BUSINESS SYSTEMS ARCHITECT Gender Identity Male 07/26/2022 1:32 PM CDT Sexual Orientation Straight 07/26/2022 1: 32 PM CDT documented as of this encounter Plan of Treatment Upcoming Encounters Date Type Department Care Team (Latest Contact Info) Description 01/27/2024 12:30 PM BUSINESS SYSTEMS ARCHITECT Appointment Department of Orthopedic Surgery in [address] [phone] TwoheLizeth stephenson MPAS, P.A.-C. [address] [place] [phone] Discharge Disposition: Home or Self Care 02/19/2024 1:45 PM BUSINESS SYSTEMS ARCHITECT Appointment Department of Radiology, [facility], in [place], [place] [address] [place] [phone] Fantasma Butt M.D. [address] [place] [phone] 02/20/2024 11:00 AM BUSINESS SYSTEMS ARCHITECT Virtual Visit Department of Radiology, [facility], in [place], [place] [address] [place] [phone] Radha Ojeda P.A.-C., M.S. [address] [place] [phone] 04/13/2024 2:00 PM BUSINESS SYSTEMS ARCHITECT Clinical Communication Virtual Review in [place], [place] 200 [place] [phone] 04/15/2024 12:00 PM BUSINESS SYSTEMS ARCHITECT Appointment Department of Radiology, [facility], in [place], [place] [address] [place] [phone] Brittney Piña MPAS, PBernie.-C. [address] [place] [phone] 04/15/2024 1:00 PM BUSINESS SYSTEMS ARCHITECT Office Visit Department of Orthopedic Surgery in [place], [place] [address] [place] [phone] Vel Vinson M.D., M.B.A. [address] [place] [phone] documented as of this encounter Results * (ABNORMAL) CBC-Preop with reflex anemia panel (01/05/2024 9:26 AM BUSINESS SYSTEMS ARCHITECT) Hemoglobin 10.2(L) 13.2 - 16.6 g/dL 01/05/2024 10:16 AM BUSINESS SYSTEMS ARCHITECT DTL Hematocrit 31.9(L) 38.3 - 48.6 % 01/05/2024 10:16 AM BUSINESS SYSTEMS ARCHITECT DTL Erythrocytes 3.45(L) 4.35 - 5.65 x10(12)/L 01/05/2024 10:16 AM BUSINESS SYSTEMS ARCHITECT DTL MCV 92.5 78.2 - 97.9 fL 01/05/2024 10:16 AM BUSINESS SYSTEMS ARCHITECT DTL RBC Distrib Width 14.5 11.8 - 14.5 % 01/05/2024 10:16 AM BUSINESS SYSTEMS ARCHITECT DTL Platelet Count 163 135 - 317 x10(9)/L 01/05/2024 10:16 AM BUSINESS SYSTEMS ARCHITECT DTL Leukocytes 7.1 3.4 - 9.6 x10(9)/L 01/05/2024 10:16 AM BUSINESS SYSTEMS ARCHITECT DTL Blood (Blood, Venous) 01/05/2024 9:26 AM BUSINESS SYSTEMS ARCHITECT 01/05/2024 9:59 AM BUSINESS SYSTEMS ARCHITECT Narrative [facility] - 01/05/2024 10:16 AM BUSINESS SYSTEMS ARCHITECT Specimen Information: Specimen ID: [id number] Specimen Type: Blood Specimen Collection Start Date: 01/05/2024 9:26 AM Specimen Received Date: 01/05/2024 9:59 AM Specimen ID: [id number] Specimen Type: Blood Specimen Collection Start Date: 01/05/2024 9:26 AM Specimen Received Date: 01/05/2024 9:46 AM us Brittney IRWIN, P.A.-C. LAB BLOOD ADD-ON Fin al Result [facility] [address] [place] [address], [facility] [address] [place] [address] documented in this encounter Visit Diagnoses Diagnosis Anemia- Primary documented in this encounter Care Teams Manager Line Relationship Specialty Start Date End Date Elsewhere, Pcp PCP - General Internal Medicine 10/03/23 documented as of this encounter
--- OUTSIDE RECORDS SUMMARY | 2024-01-22 16:36 | XMS_ITS | Encounter Summary ---
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 Name Role Phone Elsewhere, Pcp Primary Care Provider Unavailabl e Reason for Visit * Reason Comments GI Bleeding * Auth/Cert (Routine) Specialty Diagnoses / Procedures Referred By Contac t Referred To Contact Diagnoses Anemia Hemorrhage Gastrointestinal Procedures ER Referral ID Status Reason Start Date Expiration Date Visits Re quested Visits Authorized [id number] 1 1 Encounter Details Date Type Department Care Team (Latest Contact Info) Description 11/28/2023 2:49 PM CDT - 12/03/2023 10:07 AM CDT Hospital Encounter [facility], [facility], [facility], Fourth Floor [address] [place] [phone] Paola Solis APRN, C.N.P., D.N.P., M.S.N. [address] [place] [phone] Theodore Dsouza M.D., M.P.H. [address] [place] [phone] Yola Triana M.D. [address] [place] [phone] Zahira Shaw APRN, C.N.P., D.N.P. [address] [place] [phone] Hemorrhage Gastrointestinal (Primary Dx); Anemia; Infection Total Hip Arthroplasty Initial Right (HCC); Stroke (HCC) Discharge Disposition: Jail Facility Social History Tobacco Use Types Packs/Day Years Used Date Smoking Tobacco: Never Passive Smoke Exposure: Never Smokeless Tobacco: Never Alcohol Use Standard Drinks/Week Comments Never 2 (1 standard drink = 0.6 oz pur e alcohol) [facility] Utilities Answer Date Recorded In the past 12 months has th e [employer], gas, oil, or water [employer] threatened to shut off services in your [...] your living situation today? 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 Discharge Provider Team: Hospital Internal Medicine ([facility]) - [facility] Medicine 6 ([facility]) Primary Care Providers: Elsewhere, Pcp (General) No address on file PCP Phone Number: None PCP Fax Number: None Admission Date: 11/28/2023 Discharge Date: 12/03/23 PRINCIPAL DIAGNOSIS Hemorrhage Gastrointestinal SECONDARY DIAGNOSES Principal Problem: Hemorrhage Gastrointestinal Resolved Problems: * No resolved hospital problems. * DISCHARGE DISPOSITION Jail Facility [3] ACTIVE ISSUES [...] DRAW ROEI Infusion Therapy 01/05/2024 10:15 AM SHAMAR LLOYD [address] Radiology 01/05/2024 10:45 AM Maddy Bingham P.A.-Venu. Infectious Diseases 01/05/2024 11:15 AM Vel Vinson [...] bleedsecondary to Neymar-Corado tear requiring hospitalization at [facility] from 11/02-11/06 (EGD on 11/02 showed bleeding Neymar-Corado tear; status post 2 units of RBCs/PPI. He presented from his shelter facility on 11/28/23 for concerns of 2 [...] seen and evaluated with Dr. Triana, HIM cardiology consultant. I saw and evaluated Mr. Estevan Lester today and provided counseling [id number] at bedside. I personally spent a total of greater than 30 minutes in counseling and coordination of care as described above to facilitate the hospital discharge. Discharge instructions were provided to the patient and caregiver(s). documented in this encounter Discharge Instructions * Discharge Instructions* Anna Marie Anne - 12/01/2023 11:14 AM CDT You were discharged from the [facility] Medicine 6 ([facility]) Service. Please identify this service name if youcall with questions after hospitalization. documented in this encounter Medications at Time of Discharge aspirin 81 mg chewable tablet Chew 1 tablet (81 mg total) daily. 60 tablet 06/25/2023 carboxymethylcellu lose (REFRESH PLUS) 0.5 % ophthalmic solution Administer 2 drops into both eyes 4 (four) times a day as needed for dry eyes. 50 each 06/25/2023 lancets 1 each daily. 50 each 07/29/2022 levETIRAcetam (Keppra) 100 mg/mL solution Take 7.5 mL (750 mg total) by mouth 2 (two) times a day. 06/25/2023 nystatin (Nystop) 100,000 unit/gram powder Apply [...] in 240 mLs (8 ounces) of beverage. sennosides-docusat e sodium (Senokot-S) 8.6-50 mg per tablet Take [...] at bedtime. 30 tablet 1 06/25/2023 4 blood glucose ctl high,nml,low solution Glucose control solution provides an easy way to ensure accurate blood glucose testing. 1 each 07/29/2022 4 blood sugar diagnostic strips 1 test daily. 30 test 07/29/2022 4 blood-glucose meter (FreeStyle Webster) kit Use as instructed 1 each 07/29/2022 4 cefadroxil (Duricef) 500 mg capsuleIndications :Bone and/or joint infection Take 1 capsule (500 mg total) by mouth 2 (two) times a day for 12 days Indications: Bone and/or joint infection. 24 capsule 01/09/2024 4 cefadroxil (Duricef) 500 mg capsuleIndications :Blood stream infection,Bone and/or joint infection Take 1 capsule (500 mg total) by mouth 2 (two) times a day for 12 days Indications: Blood stream infection, Bone and/or joint infection. 24 capsule 01/09/2024 4 cefadroxil (Duricef) 500 mg capsuleIndications :Blood stream infection,Bone and/or joint infection Take 1 capsule (500 mg total) by mouth 2 (two) times a day for 12 days Indications: Blood stream infection, Bone and/or joint infection. 24 capsule 01/09/2024 4 flash glucose scanning reader (FreeStyle Jessica 2 [place]) miscIndications:Di abetes Mellitus Type 2 Ulcer Foot Hyperglycemic (HCC) 1 each (1 Device total) continuously. 1 each 1 08/01/2022 4 HYDROmorphone (Dilaudid) 2 mg tabletIndications: Prolonged Acute Pain/Traumatic Injury Take 1 tablet (2 mg total) by mouth every 4 (four) hours as needed for severe pain or score 7-10 of 10 Indication: Prolonged Acute Pain/Traumatic Injury. 25 tablet 01/09/2024 4 HYDROmorphone (Dilaudid) 2 mg tabletIndications: Prolonged Acute Pain/Traumatic Injury Take 1 tablet (2 mg total) by mouth every 4 (four) hours as needed for severe pain or score 7-10 of 10 Indication: Prolonged Acute Pain/Traumatic Injury. 26 tablet 01/09/2024 4 HYDROmorphone (Dilaudid) 2 mg tabletIndications: Prolonged Acute Pain/Traumatic Injury Take 1 tablet (2 [...] 5 mg by mouth daily. 09/03/2023 4 Novofine Autocover 30 gauge x 1/3 needle 06/25/2023 4 rivaroxaban (Xarelto) 10 mg tablet Take 1 tablet (10 mg total) by mouth daily. 30 tablet 11 08/28/2023 4 sennosides (Senokot) 8.6 mg tablet Take 8.6 mg by mouth 2 (two) times a day. 4 sucralfate (Carafate) 1 gram tablet Take 1 g by mouth every 6 (six) hours. Unsure if taking 4 documented as of this encounter Progress Notes * Yola Triana M.D. - 12/02/2023 5:43 AM CDT T Medicine 6 ([facility]) Progress Note SUBJECTIVE I evaluated the [...] / PLAN Mr. Lester is hospitalized on [facility] 6 ([facility]) for evaluation and management of Hemorrhage [...] to MW tear admitted 11/02- (EGD at [facility]) s/p 2u PRBC. Presented on 11/27 for [...] Galeas M.D. - 12/01/2023 11:26 AM CDT [facility] 6 ([facility]) Progress Note SUBJECTIVE Feeling well today, [...] / PLAN Mr. Lester is hospitalized on [facility] Medicine 6 ([facility]) for evaluation and management of Hemorrhage [...] to MW tear admitted 11/02- (EGD at [facility]) s/p 2u PRBC. Presented on 11/27 for [...] seen and evaluated with Dr. Triana, HIM cardiology consultant. I personally spent a total of 50 minutes providing and coordinating care today. * Vishnu Simon M.S.N., R.N. - 12/01/2023 11:22 AM CDT SUBJECTIVE Discharge planning - SNF Return OBJECTIVE [id number] ASSESSMENT / PLAN ASSESSMENT Patient was not assessed at this time. PLAN Patient to return to previous SNF. Please see below regarding the plan: Patient to return to: Destination - Admitted Since 11/28/2023 Service Provider Services Address Phone Fax Patient Preferred [facility] [address] [facility] [phone] -- Contact: Intake Patient has a [place] bedhold. Facility can manage IV antibiotics. Facility cannot manage a wound vac. Facility cannot accept weekend readmissions. COVID screening needed before patient can return: no Facility prefers patient return by 4:00 pm. Facility oxygen provider is [facility] (phone [phone], fax [phone]) . Was the patient on oxygen at your facility: no The patient is being prepared to discharge on 12/03/2023 at 10:00 am if medically ready for transfer. Contact CASE MANAGEMENT if time needs to be changed. Transportation will be provided by [facility] ([phone]). They will pick the patient up in his room. Transportation will be paid forby [place]. Transport oxygen not needed. NURSING: Complete documentation [...] arise. Darvin Mcdonough, R.N. 12/01/23 * Theodore Dsouza M.D. - 11/30/2023 1:01 PM CDT T Medicine 6 ([facility]) Progress Note SUBJECTIVE No events overnight. [...] bleedsecondary to Neymar-Corado tear requiring hospitalization at [facility] from 11/02-11/06 (EGD on 11/02 showed bleeding Neymar-Corado tear; status post 2 units of RBCs/PPI. He presents from his shelter facility today for concerns of 2 escamilla [...] 11/27. Notably, he was hospitalized locally at [facility] ICU from 11/02-11/06 for concerns of upper [...] of plan of care, chart review, and [id number]-[id number] interview. Theodore Dsouza M.D. 11/30/23 1:01 PM CDT * Theodore Dsouza M.D. - 11/29/2023 2:19 PM CDT [facility] Medicine 6 ([facility]) Progress Note SUBJECTIVE No events overnight. [...] bleedsecondary to Neymar-Corado tear requiring hospitalization at [facility] from 11/02-11/06 (EGD on 11/02 showed bleeding Neymar-Corado tear; status post 2 units of RBCs/PPI. He presents from his shelter facility today for concerns of 2 escamilla [...] 11/27. Notably, he was hospitalized locally at [facility] ICU from 11/02-11/06 for concerns of upper [...] of plan of care, chart review, and [id number]-[id number] interview. Theodore Dsouza M.D. 11/29/23 2:19 PM CDT * Terrance Joseph Pharm.D., R.Ph., BCPS - 11/29/2023 11:09 AM CDT Images from the original note were not included. Admission Medication History Note Adherence issues: Unable to assess Medication list source: [facility] Records Prior to Admission Medications Med List Status: Pharmacy Complete Set By: Terrance Joseph Pharm.D., R.Ph., BCPS at 11/29/2023 11:09 AM Status Comment 11/29/2023 11:09 AM per [facility] med list Taking? Last Dose Informant Start [...] -- 1 test daily. blood-glucose meter (FreeStyle Webster) kit -- Self 07/29/22 -- Use as instructed carboxymethylcellulose (REFRESH PLUS) 0.5 % ophthalmic solution -- -- 06/25/23 -- Administer 2 drops into both eyes 4 (four) times a day as needed for dry eyes. flash glucose scanning reader (FreeStyle Jessica 2 [place]) misc -- Self 08/01/22 -- 1 each (1 [...] recent GI bleed 2/2 Neymar-Corado tear at [facility]. Holding aspirin,rivaroxaban for now. Hgb 10.3 this morning. Blood pressures stable 100s-140s systolic. Currently receiving pantoprazole 40 mg IV q12h. DM2 - holding home NPH insulin. Has moderate correctional scale aspart ordered with meals. Blood glucose < 180 since admission. Doron Joseph PharmEdilma., R.Ph., BCPS documented in this encounter H&P Notes * Zahira Shaw APRN, C.N.P., D.N.P. - 11/28/2023 8:44 PM CDT [facility] Medicine 6 ([facility]) Admission Note SUBJECTIVE CHIEF COMPLAINT / [...] secondary to Neymar-Corado tear requiring hospitalization at [facility] from 11/02- 11/06 (EGD on 11/02 showed bleeding Neymar-Corado tear; status post 2 units of RBCs/PPI. Per chart review, staff at the patient's shelter facility noticed a change in stool color yesterday. He also had 2 escamilla colored stools today. Hemoglobin at the facility was 9.2. He was ultimately transferred to [facility] ED for further evaluation. In the [...] oral Protonix, and was ultimately admitted to [place] [address] for ongoing evaluation management. Patient is evaluated [...] diagnostic strips, 1 test daily. blood-glucose meter (FreeStyle Webster) kit, Use as instructed calcium carbonate (TUMS) [...] flash glucose scanning reader (FreeStyle Jessica 2 [place]) misc, 1 each (1 Device total) continuously. [...] bleedsecondary to Neymar-Corado tear requiring hospitalization at [facility] from 11/02-11/06 (EGD on 11/02 showed bleeding Neymar-Corado tear; status post 2 units of RBCs/PPI. He presents from his shelter facility today for concerns of 2 escamilla [...] oral Protonix, and was ultimately admitted to [place] [address] for ongoing evaluation management. # Concern for Hemorrhage Gastrointestinal- query diverticular bleed versus upper GI bleed # Normocytic anemia # Melanotic stools # Recent history of GI bleed secondary to Neymar-Corado tear # Positive guaiac Assessment: Hemoglobin stable since admission, but down from a couple days ago (previously 10.5--> 9.7) with associated escamilla colored/blood-tinged stools. Previously mentioned, he was hospitalized locally at [facility] ICU from 11/02-11/06 for concerns of upper [...] seen and evaluated with Dr. Weiner, HIM cardiology consultant. I personally spent a total of 55 minutes providing and coordinating care today. documented in this encounter Consult Notes * Julianne Rodrigez R.N. 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 Services Used: No Person(s) present during interview: Person(s) Present During Interview: patient History of Present Illness #1 Hemorrhage Gastrointestinal Social History Marital Status: Single Finance/Insurance Primary insurance: [facility] Secondary insurance: N/A benefits: No Advance Directives Legal Decision Maker: Self Advance Directives Status: Not Activated OBJECTIVE Baseline Functional Status Baseline Activities of Daily Living Mobility: Requires aide of device Dressing: Needs assistance Feeding: Independent Bathing: Needs assistance Grooming: Needs assistance Toileting: Needs assistance Behavior: Appropriate, Pleasant, Calm, Cooperative, Oriented Communication: Can write, Talks, Understands speaking, Understands Turkish, Reads Shopping: Needs assistance Medication Management: Needs [...] Jail Facility ASSESSMENT / PLAN Assessment: The cellulose insulation helper met with Estevan Lester to discuss his current hospitalization and home going needs. The patient was unaccompanied. The patient was was a reliable historian. The role of cellulose insulation helper was reviewed. The patient reviewed his prior level of care and support system. The patient receives support from the shelter facility staff. The patient shared that he has been at [facility] and plans on returning there when medically ready to discharge. Housekeeping, grocery shopping, meal prep, and other household responsibilities have previously been completed by patient and shelter facility staff . cellulose insulation helper discussed the patient's potential needs at dismissal based on their home setting, previous needs and responsibilities, homebound status, and relevant assessments with the patient. The patient will be safe and supported to return to a [facility] when medically ready. Support will be provided by shelter facility staff. The patient demonstrated understanding when discussing his home going plans and anticipated needs. At this time, the care team anticipates the patient requires the following service(s) to be reconnected: shelter facility. The patient identified the following as their current vendor(s): [facility]. After reviewing the patient's chart and meeting with the patient, the cellulose insulation helper deemed the LACE+/readmission questions were not necessary. The patient reports understanding that he will dismiss from the hospital when medically stable. Pending hospital course and medical readiness, no barriers to dismissal have been identified at this time. Plan: The patient agrees with the following plan. Patient's anticipated discharge disposition is: Jail Facility: [facility]. Unable to return on the weekend Transportation upon dismissal will be Care Management arranged--will need wheelchair transport arranged . cellulose insulation helper recommended n/a . cellulose insulation helper provided information regarding the dismissal process. cellulose insulation helper placed or requested the following hospital-based consult orders and/or referrals: None. cellulose insulation helper will continue to assess for homegoing needs with the interdisciplinary team. cellulose insulation helper encouraged the patient to reach out with any questions/concerns. 8. Patient to return to: Destination - Admitted Since 11/28/2023 Service Provider Services Address Phone Fax Patient Preferred [facility] [address] [place] [phone] -- Contact: Intake Patient has a [place] bedhold. Facility can manage IV antibiotics. Facility can manage a wound vac. Facility preferred wound vac type: n/a Facility cannot accept weekend readmissions. COVID screening needed before patient can return: no Facility prefers patient return by 4:00 PM. Facility oxygen provider is [facility] (phone [phone], fax [phone]) . Was the patient on oxygen at [...] Rodrigez R.N. 11/29/2023 * Anneliese Bates P.T., Rodrigo.P.T. - 11/29/2023 10:20 AM CDT Physical Therapy [...] 58 y.o. male who was admitted to [facility] in [place] on 11/28/2023 for Anemia [D64.9] Hemorrhage Gastrointestinal [...] Range of Motion: Generalized weakness Outcome Measures: -[facility] Inpatient Short Form: AM-[facility] Basic Mobility (V.2) How much help from [...] AM-PAC Basic Mobility (V.2) Raw Score: 6 -[facility] Basic Mobility (V.2) Standardized Score: 16.59 Interpretation: Based on scoring guidelines using the raw score value: Those going to home had an average score at or above 18 Those going to facility had an average score at or below 17 Clinicians answer the [facility] Inpatient Short Form based on observed patient [...] functional activity, Neuromuscular re-education, Gait training, Orthosis [id number], Self-care/home management Billing: Tiered PT Evaluation Codes: [...] 58 y.o. male who was admitted to [facility] in [place] on 11/28/2023 for Anemia [D64.9] Hemorrhage Gastrointestinal [...] and ceiling lift for mobility at his shelter facility. He has not walked in 7-8 [...] than 10 minutes of activity Outcome Measures: [facility] Inpatient Short Form: Putting on and taking [...] at or below 17 Clinicians answer the [facility] Inpatient Short Form based on observed patient [...] shopping, Cognitive assistance needed, Assistance with financial aid coordinator, Assistance with showering/bathing, Physical assistance needed Barriers [...] [facility] He engages in ADL tasks while seated [...] understanding. Report called to Roma SHERIFF at [facility]. Patient discharged with all belongings and discharge instructions via stretcher by [facility]. * Judy Duffy R.N. - 12/02/2023 11:58 [...] take his pills. Patient yelled at the advertising writer to cut it out! and pursed his lips when the advertising writer was trying to get him to take his med. Multiple attempts were made, Primary care team notified. documented in this encounter ED Notes * Patel Aguayo M.D. - 11/28/2023 8:55 PM CDT Care of patient transferred to de by Paola Solis APRN, C.N.P., D.N.P., M.S.N.. [...] Contrast CT reveals no actionable findings 1853 [place]im[place]o score was calculated at 17 points. Discharge not recommended, therefore we will admit to medicine for serial hemoglobin check and observation for potential colonoscopy. Final Diagnoses: as of 11/28/232054 Hemorrhage Gastrointestinal Anemia Patel Aguayo M.D. Resident 11/28/232054 * Sandra Moise M.D. - 11/28/2023 6:25 PM CDT Care of patient transferred to me by Paola Solis. Disposition pending CT of [...] Sandra Moise M.D. 11/28/231826 Sandra Moise M.D. 11/28/232342 * Paola Solis APRN, C.N.P., D.N.P., M.S.N. [...] an acute abdomen. His rectal exam - project construction assistant manager present at the bedside- his rectum is [...] up Paola Solis APRN, C.N.P., D.N.P., M.S.N. 11/28/23 185 documented in this encounter Miscellaneous Notes * [...] bleedsecondary to Neymar-Corado tear requiring hospitalization at [facility] from 11/02-11/06 (EGD on 11/02 showed bleeding Neymar-Corado tear; status post 2 units of RBCs/PPI. He presented from his shelter facility on 11/28/23 for concerns of 2 [...] (Latest Contact Info) Description 01/27/2024 12:30 PM SURVEYOR HELPER Appointment Department of Orthopedic Surgery in [address] [phone] Lizeth Joe MPAS, P.A.-CBelkis [address] [place] [phone] Discharge Disposition: Home or Self Care 02/19/2024 1:45 PM SURVEYOR HELPER Appointment Department of Radiology, [facility] in [place], [place] [address] [place] [phone] Fantasma Butt M.D. [address] [place] [phone] 02/20/2024 11:00 AM SURVEYOR HELPER Virtual Visit Department of Radiology, [facility], in [address] [phone] Radha Ojeda P.A.-C., M.S. [address] [place] [phone] 04/13/2024 2:00 PM SURVEYOR HELPER Clinical Communication Virtual Review in [place], [place] 200 [place] [phone] 04/15/2024 12:00 PM SURVEYOR HELPER Appointment Department of Radiology, [facility], in [place], [place] [address] [place] [phone] Brittney Piña, Jose Francisco IRWIN. [address] [place] [phone] 04/15/2024 1:00 PM SURVEYOR HELPER Office Visit Department of Orthopedic Surgery in [address] [phone] Vel Vinson M.D., M.B.A. [address] [place] [phone] documented as of this encounter Procedures Procedure [...] * (ABNORMAL) Hemoglobin (12/03/2023 8:23 AM CDT) [facility] Hemoglobin 9.9(L) 13.2 - 16.6 g/dL 12/03/2023 9:37 AM CDT DTL Blood (Blood, Venous) 12/03/2023 8:23 AM CDT 12/03/2023 9:14 AM CDT us Yola Triana M.D. LAB BLOOD ADD-ON Cata l Result [facility] [address] [place] [address], [facility] DTL [facility] [address] [place] [address] * Glucose, POCT (12/02/2023 9:09 PM CDT) Glucose, POCT, B 140 70 - 140 mg/dL 12/02/2023 9:24 PM CDT PCLX Site Capillary 12/02/2023 9:24 PM CDT PCLX Last Intake 3-4 hours 12/02/2023 9:24 PM CDT PCLX Blood 12/02/2023 9:09 PM CDT 12/02/2023 9:24 PM CDT us Unknown Provider LAB POCT ORDERABLES-MANUAL Cata l Result Performing Organization Address City/[facility]/ZIP Co de Phone Number POC [facility] [facility] [address] [place] [address], [place] [facility] [address] [place] [address] * Glucose, POCT (12/02/2023 1:05 PM CDT) Glucose, POCT, B 90 70 - 140 mg/dL 12/02/2023 1:07 PM CDT [facility] Site Capillary 12/02/2023 1:07 PM CDT P[facility] Last Intake NPO 12/02/2023 1:07 PM CDT [facility] Blood 12/02/2023 1:05 PM CDT 12/02/2023 1:07 PM CDT us Unknown Provider LAB POCT ORDERABLES-MANUAL Cata l Result POC [facility] [address] [place] [address], [place] [facility] [address] [place] [address] * Surgical Pathology (12/02/2023 11:55 AM CDT) [...] performance characteristics were determined by [facility] in a manner consistent with CLIA [...] LAB SURG PATH ORDERABLES F inal Result [facility] [address] [place] [address] 200 [facility] 200 [place] [address] * Colonoscopy (12/02/2023 11:10 AM CDT) 12/02/2023 11:1 0 AM CDT Impressions [facility] - 12/02/2023 12:40 PM CDT Post-op Diagnoses: - Preparation of the colon was inadequate. - The examined portion of the ileum was normal. NO evidence of recent GI bleeding. - A single (solitary) ulcer at the splenic flexure. Biopsied. Tattooed. - Non-bleeding external and internal hemorrhoids. Narrative [facility] - 12/02/2023 12:40 PM CDT William 6 GI GI Patient Name: sEtevan Lester Date of : 1965 Age: 58 [...] bowel preparation was evaluated using the BBPS ([place] Bowel Preparation Scale) with scores of: Right [...] ES Final Result DANNA MOORE NA * Glucose, POCT (12/02/2023 10:50 AM CDT) Glucose, POCT, B 90 70 - 140 mg/dL 12/02/2023 10:52 AM CDT [facility] Site Capillary 12/02/2023 10:52 AM CDT [facility] Blood 12/02/2023 10:5 0 AM CDT 12/02/2023 10:52 AM CDT us Unknown Provider LAB POCT ORDERABLES-MANUAL Cata l Result Performing Organization Address City/[facility]/ZIP Co de Phone Number POC [facility] [address] [place] [address], [facility] [address] [place] [address] * (ABNORMAL) Hemoglobin (12/02/2023 8:27 AM CDT) Pathologist [facility] Hemoglobin 9.9(L) 13.2 - 16.6 g/dL 12/02/2023 9:43 AM CDT DTL Blood (Blood, Venous) 12/02/2023 8:27 AM CDT 12/02/2023 9:06 AM CDT us Lul Galeas M.D. LAB BLOOD ADD-ON Final Result Performing Organization Address [facility] Co de Phone Number [facility] [address] [place] [address], [facility] DTL [facility] [address] [place] [address] * Glucose, POCT (12/01/2023 9:32 PM CDT) Pathologist [facility] Glucose, POCT, B 115 70 - 140 mg/dL 12/01/2023 9:37 PM CDT [facility] Site Capillary 12/01/2023 9:37 PM CDT [facility] Last Intake > 4 hours 12/01/2023 9:37 PM CDT [facility] Blood 12/01/2023 9:32 PM CDT 12/01/2023 9:37 PM CDT us Unknown Provider LAB POCT ORDERABLES-MANUAL Cata l Result Performing Organization Address City/[facility]/ZIP Co de Phone Number POC [facility] [address] [place] [address], [place] [facility] [address] [place] [address] * Glucose, POCT (12/01/2023 12:06 PM CDT) Glucose, POCT, B 90 70 - 140 mg/dL 12/01/2023 12:33 PM CDT [facility] Site Capillary 12/01/2023 12:33 PM CDT [facility] Last Intake 3-4 hours 12/01/2023 12:33 PM CDT [facility] Blood 12/01/2023 12:0 6 PM CDT 12/01/2023 12:33 PM CDT us Unknown Provider LAB POCT ORDERABLES-MANUAL Cata l Result Performing Organization Address City/[facility]/ZIP Co de Phone Number POC [facility] [address] [place] [address], [place] [facility] [address] [place] [address] * Glucose, POCT (12/01/2023 7:59 AM CDT) Glucose, POCT, B 93 70 - 140 mg/dL 12/01/2023 8:25 AM CDT [facility] Site Capillary 12/01/2023 8:25 AM CDT [facility] Blood 12/01/2023 7:59 AM CDT 12/01/2023 8:25 AM CDT us Unknown Provider LAB POCT ORDERABLES-MANUAL Cata l Result Performing Organization Address City/[facility]/ZIP Co de Phone Number POC [facility] [address] [place] [address], [place] [facility] [address] [place] [address] * Glucose, POCT (11/30/2023 8:48 PM CDT) Glucose, POCT, B 109 70 - 140 mg/dL 11/30/2023 8:50 PM CDT [facility] Site Capillary 11/30/2023 8:50 PM CDT P[facility]X Last Intake 3-4 hours 11/30/2023 8:50 PM CDT [facility] Blood 11/30/2023 8:48 PM CDT 11/30/2023 8:51 PM CDT us Unknown Provider LAB POCT ORDERABLES-MANUAL Cata l Result Performing Organization Address City/[facility] Co de Phone Number POC [facility] [address] [place] [address], [facility] [address] [place] [address] * Glucose, POCT (11/30/2023 4:47 PM CDT) Glucose, POCT, B 129 70 - 140 mg/dL 11/30/2023 4:49 PM CDT PCLX Last Intake 3-4 hours 11/30/2023 4:49 PM CDT [facility] Blood 11/30/2023 4:47 PM CDT 11/30/2023 4:50 PM CDT us Unknown Provider LAB POCT ORDERABLES-MANUAL Cata l Result Performing Organization Address [facility] Co de Phone Number POC [facility] [address] [place] [address], [facility] [address] [place] [address] * (ABNORMAL) Glucose, POCT (11/30/2023 12:07 PM CDT) Glucose, POCT, B 158(H) 70 - 140 mg/dL 11/30/2023 12:09 PM CDT PCLX Last Intake 2-3 hours 11/30/2023 12:09 PM CDT [facility] Blood 11/30/2023 12:0 7 PM CDT 11/30/2023 12:10 PM CDT us Unknown Provider LAB POCT ORDERABLES-MANUAL Cata l Result Performing Organization Address City/[facility] Co de Phone Number POC [facility] [address] [place] [address], [facility] [address] [place] [address] * Glucose, POCT (11/30/2023 7:30 AM CDT) Glucose, POCT, B 102 70 - 140 mg/dL 11/30/2023 7:37 AM CDT PCLX Last Intake 3-4 hours 11/30/2023 7:37 AM CDT [facility] Blood 11/30/2023 7:30 AM CDT 11/30/2023 7:37 AM CDT us Unknown Provider LAB POCT ORDERABLES-MANUAL Cata l Result POC [facility] [address] [place] [address], [facility] PCLX [facility] P[facility] [address] [place] [address] * Basic Metabolic Panel (11/30/2023 6:54 AM [...] 11/30/2023 7:34 AM CDT us Theodore Dsouza M.D., M.P.H. LAB BLOOD ADD-ON Cata l Result [facility] [address] [place] [address], [facility] DTL [facility] [address] [place] [address] * (ABNORMAL) CBC without Differential (11/30/2023 6:54 AM CDT) [facility] Hemoglobin 10.0(L) 13.2 - 16.6 g/dL 11/30/2023 [...] 11/30/2023 7:15 AM CDT us Theodore Dsouza M.D., M.P.H. LAB BLOOD ADD-ON Cata l Result [facility] [address] [place] [address], [facility] DTL [facility] [address] [place] [address] * Glucose, POCT (11/29/2023 9:16 PM CDT) Glucose, POCT, B 130 70 - 140 mg/dL 11/29/2023 9:28 PM CDT PCLX Blood 11/29/2023 9:16 PM CDT 11/29/2023 9:29 PM CDT us Unknown Provider LAB POCT ORDERABLES-MANUAL Cata l Result Performing Organization Address City/[facility]/ZIP Co de Phone Number POC [facility] [address] [place] [address], [place] [facility] [address] [place] [address] * Glucose, POCT (11/29/2023 5:16 PM CDT) Glucose, POCT, B 112 70 - 140 mg/dL 11/29/2023 5:19 PM CDT [facility] Site Capillary 11/29/2023 5:19 PM CDT [facility] Blood 11/29/2023 5:16 PM CDT 11/29/2023 5:19 PM CDT us Unknown Provider LAB POCT ORDERABLES-MANUAL Cata l Result Performing Organization Address City/[facility]/ZIP Co de Phone Number POC [facility] [address] [place] [address], [facility] [address] [place] [address] * Glucose, POCT (11/29/2023 12:19 PM CDT) Glucose, POCT, B 102 70 - 140 mg/dL 11/29/2023 12:23 PM CDT PCLX Last Intake 3-4 hours 11/29/2023 12:23 PM CDT [facility] Blood 11/29/2023 12:1 9 PM CDT 11/29/2023 12:23 PM CDT us Unknown Provider LAB POCT ORDERABLES-MANUAL Cata l Result POC [facility] [address] [place] [address], [place] [facility] [address] [place] [address] * Glucose, POCT (11/29/2023 7:55 AM CDT) Glucose, POCT, B 81 70 - 140 mg/dL 11/29/2023 8:00 AM CDT PCLX Site Capillary 11/29/2023 8:00 AM CDT PCLX Blood 11/29/2023 7:55 AM CDT 11/29/2023 8:00 AM CDT us Unknown Provider LAB POCT ORDERABLES-MANUAL Cata l Result POC [facility] [address] [place] [address], [facility] [address] [place] [address] * (ABNORMAL) Morphology Eval (special smear) (11/29/2023 7:49 AM CDT) [facility] Neutrophilic Segs and Bands 61 50 - [...] CDT 11/29/2023 8:18 AM CDT Zahira Shaw APRN C.N.P., D.N.P. LAB BLOOD ADD-ON Final Result Performing Organization Address [facility] Co de Phone Number [facility] [address] [place] [address] * Folate (11/29/2023 7:49 AM CDT) Pathologist [facility] Folate, S >20.0 >=4.0 mcg/L 12/01/2023 8: 08 AM CDT DTL Blood (Blood, Venous) 11/29/2023 7:49 AM CDT 11/29/2023 8:33 AM CDT Venu Woo APRN.N.P., D.N.P. LAB BLOOD ADD-ON Final Result Performing Organization Address [facility] Co de Phone Number [facility] 200 [place] [address] * Vitamin B12 Assay (11/29/2023 7:49 AM CDT) [facility] Vitamin B12 Assay, S [phone] [...] AM CDT 11/29/2023 8:33 AM CDT Zahira M Kleinheksel VEGETABLE II FARMWORKER, C.N.P., D.N.P. LAB BLOOD ADD-ON Final Result Performing Organization Address City/[facility]/ZIP Co de Phone Number [facility] [address] [place] [address], [facility] [address] [place] [address] * (ABNORMAL) Iron and Total Iron-Binding Capacity [...] C.N.P., D.N.P. LAB BLOOD ADD-ON Final Result [facility] [address] [place] [address], [facility] [address] [place] [address] * Basic Metabolic Panel (11/29/2023 7:49 AM [...] C.N.P., D.N.P. LAB BLOOD ADD-ON Final Result [facility] [address] [place] [address], [facility] [address] [place] [address] * (ABNORMAL) CBC with Differential, Blood (11/29/2023 [...] C.N.P., D.N.P. LAB BLOOD ADD-ON Final Result [facility] [address] [place] [address], [facility] DTL [facility] [address] [place] [address] [facility] [address] [place] [address] * (ABNORMAL) CBC with Differential, Blood (11/28/2023 7:01 PM CDT) [facility] Hemoglobin 9.7(L) 13.2 - 16.6 g/dL [...] M.D. LAB BLOOD ADD-ON Final Re sult [facility] [address] [place] [address], [facility] STMA [facility] [address] [place] [address] [facility] [address] [place] [address] * CT Abdomen Pelvis without and with [...] in the abdomen or pelvis. Noacute findings. Paoal Solis APRN, C.N.P., D.N.P., M.S.N. IMG CT [...] D.N.P., M.S.N. LAB BLOOD ADD-ON Final Result [facility] [address] [place] [address], [facility] [address] [place] [address] * Type and Screen (with Reflex Antibody ID) (11/28/2023 3:31 PM CDT) Pathologist [facility] ABORh O Pos Not applicable 11/28/2023 4:02 PM CDT STRM Antibody Screen Negative Negative 11/28/2023 4:19 PM CDT STRM Type & Screen Expiration 12/01/2023 23:59 11/28/2023 4:02 PM CDT STRM Testing Location [place] DEFAULT 11/28/2023 3:44 PM CDT STRM Blood (Blood, Venous) 11/28/2023 3:31 PM CDT 11/28/2023 3:44 PM CDT Jonna Kwok M.D., J.D. LAB BLOOD BANK TEST O RDERABLES Final Result Performing Organization Address [facility]/ZIP Co de Phone Number [facility] 200 [place] [address], [facility] STRM [facility] 200 [place] [address] * Lactate (11/28/2023 3:31 PM CDT) Pathologist [facility] Lactate, P 1.2 0.5 - 2.2 mmol/L 11/28/2023 3:59 PM CDT STMA Blood (Blood, Venous) 11/28/2023 3:31 PM CDT 11/28/2023 3:44 PM CDT Jonna Kwok M.D., J.D. LAB BLOOD NON ADD-ON Final Result Performing Organization Address [facility] Co de Phone Number [facility] [address] [place] [address] * (ABNORMAL) CBC with Differential, Blood (11/28/2023 3:31 PM CDT) Pathologist [facility] Hemoglobin 9.7(L) 13.2 - 16.6 g/dL 11/28/2023 [...] J.D. LAB BLOOD ADD-ON Cata l Result [facility] [address] [place] [address], [facility] STMA [facility] [address] [place] [address] [facility] [address] [place] [address] * Basic Metabolic Panel (11/28/2023 3:31 PM CDT) [facility] Potassium, P 4.3 3.6 - 5.2 mmol/L [...] ADD-ON Cata l Result Performing Organization Address City/[facility]/ZIP Co de Phone Number [facility] [address] STMA [facility] 200 [place] [address] * Ferritin (11/28/2023 3:20 PM CDT) Ferritin, S 302 31 - 409 mcg/L 11/29/2023 4:22 AM CDT DTL Blood (Blood, Venous) 11/28/2023 3:20 PM CDT 11/29/2023 3:49 AM CDT us Zahira Shaw APRN, C.N.P., D.N.P. LAB BLOOD ADD-ON Final Result Performing Organization Address City/[facility]/ZIP Co de Phone Number [facility] [address] [place] [address], [facility] DTL [facility] [address] [place] [address] * ECG 12 Lead (11/28/2023 3:18 PM CDT) Ventricular Rate ECG/Min 58 BPM MUSE DE Interval 208 ms MUSE QRSD Interval 94 ms MUSE QT Interval 460 ms MUSE QTC Interval 451 ms MUSE R Power 43 degrees MUSE T Wave Power -22 degrees MUSE 11/28/2023 3:18 PM CDT 11/28/2023 3:27 PM CDT Impressions MUSE - 11/28/2023 3:27 PM CDT Sinus bradycardia with 1st degree A-V block Low voltage QRS Low anterior forces Nonspecific T wave abnormality When compared with ECG of 24-May-2023 12:12, DE interval has increased T wave changes QT has shortened Reviewed by MARTHA Shah Narrative Procedure Note Prudencio Painting Jr., M.D. - 11/28/2023 IMPRESSION: Sinus bradycardia with 1st degree A-V block Low voltage QRS Low anterior forces Nonspecific T wave abnormality When compared with ECG of 24-May-2023 12:12, DE interval has increased T wave changes QT has shortened Reviewed by MARTHA Shah us Paola Solis APRN, C.N.P., D.N.P., M.S.N. ECG ORDERABLES Final Result MUSE NA documented in this encounter Visit Diagnoses Diagnosis Hemorrhage Gastrointestinal- Primary Hemorrhage Gastrointestinal Anemia Infection Total Hip Arthroplasty Initial Right (HCC) Stroke (HCC) documented in this encounter Admitting Diagnoses [...] dose (after last modification) on Fri11/29/23 at 1400 Given 12/03/2023 9:13 AM CDT 1,000 mg Given 12/02/2023 9:11 PM CDT 1,000 mg Given 12/02/2023 1:03 PM CDT 1,000 mg aspirin chewable tablet 81 mg 81 mg, oral, Daily, First dose on Fri11/29/23 [...] oral, 2 times daily, First dose on 11/28/24 at 0900, Do not give if patient has diarrhea. Given 12/03/2023 9:13 AM CDT 1 tablet Given 12/02/2023 9:11 PM CDT 1 tablet Given 11/30/2023 8:25 PM CDT 1 tablet sodium chloride (PF) 0.9 % injection 1-100 mL 1-100 mL, intravenous, Once, On Fri11/28/23 at 1655, For 1 dose, Imaging Protocol Orders, Dose per [place] Medication Guidelines Given 11/28/2023 4:56 PM CDT [...] 1400 0810 (Given - Provider: Kimberly Hi R.N.)1352 (Given - Provider: Gautam Scott R.N.)2121 (Not Given - Provider: Annamaria Rob R.N. - Reason: Patient/family refused) 1235 (Not Given - Provider: Gautam Scott R.N. - Reason: Patient/family refused)1303 (Given - Provider: Gautam Scott R.N.)2110 (Given - Provider: Judy Hi R.N.) 09 (Given - Provider: Eileen Amanda R.N.) aspirin chewable tablet 81 mg 81 mg, oral, Daily, First dose on Fri11/29/23 at 0900 0810 (Given - Provider: Kimberly [...] dose 1207 (Given - Provider: Gautam Scott RBelkisNBelkis) enoxaparin injection 40 mg (Lovenox) (CANCELED) 40 [...] mL/hr, Administer over 20 Minutes, Once, On Fri12/01/23 at 2200, For 1 dose, Give instead of PO dose b/c patient refusing to take PO) Do NOT refrigerate. 224 (New Bag - Provider: Annamaria Rob R.N.) levETIRAcetam solution 750 mg (Keppra) 750 mg, oral, 2 times daily, First dose on 11/29/23 at 0900 0810 (Given - Provider: Kimberly Hi R.N.)2134 (Not Given - Provider: Annamaria Rob R.N. - Reason: Patient/family refused) 902 (Given - Provider: Kimberly Hi R.N.)2110 (Given - Provider: Judy Hi R.N.) 0914 (Given - Provider: Eileen Amanda R.N.) [...] Mcdaniel R.N.)1641 (Given - Provider: Gautam Scott R.N.) 1313 (Not Given - Provider: Gautam Scott R.N. - Reason: Patient not available)1609 (Given - Provider: Gautam Scott R.N.) 0651 (Given - Provider: Judy Hi R.N.) polyethylene glycol powder packet 17 g (Miralax) 17 g, oral, Daily, First dose on Fri12/03/23 at 0900, Dissolve in 240 mLs (8 ounces) of water prior to giving. Avoid mixing with starch-based thickened liquids. 912 (Given - Provider: Eileen Amanda R.N.) rivaroxaban tablet 10 mg (Xarelto) 10 mg, oral, Every morning, First dose on Fri12/03/23 at 0900 0914 (Given - Provider: Eileen Amanda R.N.) sennosides-docusate sodium 8.6-50 mg per tablet 1 tablet (Senokot-S) 1 tablet, oral, 2 times daily, First dose on Fri11/29/23 at 0900, Do not give if patient has diarrhea. 08 (Not Given - Provider: Kimberly Hi R.N. - Reason: Patient/family refused)2118 (Not Given - Provider: Annamaria Rob R.N. - Reason: Order parameters not met - Comment: Patient getting prep; having liquid stool) 123 (Not Given - Provider: Gautam Scott RWilma - Reason: Patient/family refused)2110 (Given - Provider: Judy Hi R.N.) 912 (Given - Provider: Eileen Amanda R.N.) sodium chloride 0.9 % injection 3 mL 3 mL, intravenous, Every 12 hours scheduled, First dose on Fri11/28/23 at 2100, Peripheral Intravenous Catheter and Rapid Infusion Catheter, when no infusion to maintain patency 0820 (Given - Provider: Kimberly Hi R.N.)2121 (Given - Provider: Annamaria Rob R.N.) 912 (Given - Provider: Kimberly Hi R.N.)2115 (Given - Provider: Judy Hi R.N.) 0914 (Not Given - Provider: Eileen Amanda R.N. - Reason: Other - Comment: patient discharging, no IV) sucralfate suspension 1 g (Carafate) 1 g, oral, 4 times daily, First dose on Fri11/29/23 at 0800 0810 (Given - Provider: Kimberly Hi RWilma)1206 (Given - Provider: Jael LeviNBelkis)1641 (Given - Provider: Gautam Scott R.N.)2122 (Not Given - Provider: Annamaria Rob R.N. - Reason: Patient/family refused) 0903 (Given - Provider: Kimberly Hi R.N.)1303 (Given - Provider: Jael LeviNBelkis)1609 (Given - Provider: Gautam Scott R.N.)2111 (Given - Provider: Judy Hi R.N.) 0913 (Not Given - Provider: Eileen Amanda [...] injection documented in this encounter Care Teams Bagger And Stock Handler Helper Relationship Specialty Start Date End Date Elsewhere, Pcp PCP - General Internal Medicine 10/03/23 documented as of this encounter
--- OUTSIDE RECORDS SUMMARY | 2024-01-22 16:36 | XMS_ITS | Encounter Summary ---
Author Organization [facility] Address [address] [place] [address] Care Team Providers Care Training Development Director Name Role Phone Elsewhere, Pcp Primary Care Provider Unavailabl e Reason for Referral * Outpatient (Routine) - Closed Specialty Diagnoses / Procedures Referred By Contact Referred To Contact Gastroenterology and Hepatology Diagnoses Hemorrhage Gastrointestinal Procedures Gastroenterology and Hepatology - Gastroenterology eConsult Lul Galeas M.D. [address] [place] [phone] Phone: tel:[phone] fax:[phone] [place] [address] Referral ID Status Reason Start Date Expiration Date Visits Re quested Visits Authorized [id number] Closed 12/02/2023 12/01/2024 1 1 Reason for Visit * Reason Onset Date Comments Appt Request 12/02/2023 Encounter Details Date Type Department Care Team ([facility] st Contact Info) Description 12/02/2023 Clinical Communication [facility] [address] [place] [phone] Lul Galeas M.D. [address] [place] [phone] Appt Request Social History Tobacco Use Types Packs/Day Years Used Date Smoking Tobacco: Never Passive Smoke Exposure: Never Smokeless Tobacco: Never Alcohol Use Standard Drinks/Week Comments Never 2 (1 standard drink = 0.6 oz pur e alcohol) [facility] Utilities Answer Date Recorded In the past 12 months has e [employer], gas, oil, or water [employer] threatened to shut off services in your [...] your living situation today? I have a [facility] place to live 11/29/2023 Sex and Gender Information Value Date Recorded Sex Assigned at Male 07/26/2022 1:30 PM CDT Legal Sex Male 6:41 AM CREDIT COMPLIANCE OFFICER Gender Identity Male 07/26/2022 1:32 PM CDT Sexual Orientation Straight 07/26/2022 1 :32 PM CDT documented as of this encounter Plan of Treatment Upcoming Encounters Date Type Department Care Team (Latest Contact Info) Description 01/27/2024 12:30 PM CREDIT COMPLIANCE OFFICER Appointment Department of Orthopedic Surgery in [address] [phone] Lizeth Joe MPAS, P.A.-C. [address] [place] [phone] Discharge Disposition: Home or Self Care 02/19/2024 1:45 PM CREDIT COMPLIANCE OFFICER Appointment Department of Radiology, [facility], in [address] [phone] Fantasma Butt M.D. [address] [place] [phone] 02/20/2024 11:00 AM CREDIT COMPLIANCE OFFICER Virtual Visit Department of Radiology, [facility], in [address] [phone] Radha Ojeda PNadir-Venu., M.S. [address] [place] [phone] 04/13/2024 2:00 PM CREDIT COMPLIANCE OFFICER Clinical Communication Virtual Review in [address] [phone] 04/15/2024 12:00 PM CREDIT COMPLIANCE OFFICER Appointment Department of Radiology, [facility], in [address] [phone] Brittney Piña MPAS, P.A.-C. [address] [place] [phone] 04/15/2024 1:00 PM CREDIT COMPLIANCE OFFICER Office Visit Department of Orthopedic Surgery in [place], [place] [address] [place] [phone] Vel Vinson M.D., M.B.A. [address] [place] [phone] documented as of this encounter Visit Diagnoses Diagnosis Hemorrhage Gastrointestinal- Primary documented in this encounter Care Teams Training Development Director Relationship Specialty Start Date End Date Elsewhere, Pcp PCP - General Internal Medicine 10/03/23 documented as of this encounter
--- OUTSIDE RECORDS SUMMARY | 2024-01-22 16:36 | XMS_ITS | Encounter Summary ---
Author Organization [facility] Address [address] [place] [address] Care Team Providers Care Poultry Hanger Name Role Phone Elsewhere, Pcp Primary Care Provider Unavailabl e Encounter Details Date Type Department Care Team (Late st Contact Info) Description 2024 Orders Only Department of Orthopedic Surgery in [place], [place] [address] [place] [address] Brittney Piña, [facility], P.A.-C. [address] [place] [address] Social History Tobacco Use Types Packs/Day Years Used Date Smoking Tobacco: Never Passive Smoke Exposure: Never Smokeless Tobacco: Never Alcohol Use Standard Drinks/Week Comments Never 2 (1 standard drink = 0.6 oz pur e alcohol) [facility] Utilities Answer Date Recorded In the past 12 months has [facility] [employer], gas, oil, or water [employer] threatened to shut off services in your [...] your living situation today? I have a [facility] place to live 01/15/2024 Sex and Gender Information Value Date Recorded Sex Assigned at Male 07/26/2022 1:30 PM CDT Legal Sex Male 6:41 AM APPAREL FASHION DESIGNER Gender Identity Male 07/26/2022 1:32 PM CDT Sexual Orientation Straight 07/26/2022 1: 32 PM CDT documented as of this encounter Plan of Treatment Upcoming Encounters Date Type Department Care Team (Latest Contact Info) Description 01/27/2024 12:30 PM APPAREL FASHION DESIGNER Appointment Department of Orthopedic Surgery in [address] [phone] Lizeth Joe, DEBRAS, P.A.-C. [address] [place] [phone] Discharge Disposition: Home or Self Care 02/19/2024 1:45 PM APPAREL FASHION DESIGNER Appointment Department of Radiology, [facility], in [place], [place] [address] [place] [phone] Fantasma Butt M.D. [address] [place] [phone] 02/20/2024 11:00 AM APPAREL FASHION DESIGNER Virtual Visit Department of Radiology, [facility], in [place], [place] [address] [place] [phone] Radha Ojeda P.A.-C., M.S. [address] [place] [phone] 04/13/2024 2:00 PM APPAREL FASHION DESIGNER Clinical Communication Virtual Review in [place], [place] 200 [place] [phone] 04/15/2024 12:00 PM APPAREL FASHION DESIGNER Appointment Department of Radiology, [facility], in [place], [place] [address] [place] [phone] Brittney Piña, Jose Francisco IRWIN. [address] [place] [phone] 04/15/2024 1:00 PM APPAREL FASHION DESIGNER Office Visit Department of Orthopedic Surgery in [place], [place] [address] [place] [phone] Vel Vinson M.D., M.B.A. [address] [place] [phone] documented as of this encounter Visit Diagnoses Not on filedocumented in this encounter Care Teams Poultry Hanger Relationship Specialty Start Date End Date Elsewhere, Pcp PCP - General Internal Medicine 10/03/23 documented as of this encounter
--- OUTSIDE RECORDS SUMMARY | 2024-01-22 16:36 | XMS_ITS ---
Author Organization [facility] Address [address] [place] [address] Care Team Providers Care Travelift Operator Name Role Phone Elsewhere, Pcp Primary Care Provider Unavailabl e OPAT Status:Pending (Paused) Start date:05/27/2023 Enrollment date:06/06/2023 Related service episodes:Adult OPAT Service Episode (Declined) Continued Care and Services Coordination
--- OUTSIDE RECORDS SUMMARY | 2024-01-22 16:36 | XMS_ITS | Encounter Summary ---
Author Organization [facility] Address 200 [place] [address] Care Team Providers Care Integrated Program Teacher Name Role Phone Elsewhere, Pcp Primary Care Provider Unavailabl e Reason for Visit * Outpatient (Routine) - Closed Specialty Diagnoses / Procedures Referred By Contact Referred To Contact Gastroenterology and Hepatology Diagnoses Hemorrhage Gastrointestinal Procedures Gastroenterology and Hepatology - Gastroenterology eConsult Lul Galeas M.D. 200 [place] [address] Phone: tel:[phone] fax:[phone] [facility] Referral ID Status Reason Start Date Expiration Date Visits Re quested Visits Authorized [id number] Closed 12/02/2023 12/01/2024 1 1 Encounter Details Date Type Department Care Team (Latest Contact Info) Description 12/08/2023 1:00 PM CDT Internal E-Consult Division of Gastroenterology in [place], [place] 200 [place] [phone] Lul Galeas M.D. [address] [place] [phone] Ede Crespo M.D. 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 Pager: [phone] 12/08/2023 5:55 PM documented in this encounter Plan of Treatment Upcoming Encounters Date Type Department Care Team (Latest Contact Info) Description 01/27/2024 12:30 PM PRECISION LAYOUT WORKER Appointment Department of Orthopedic Surgery in [place], [place] [address] [place] [phone] Lizeth Joe, DEBRAS, P.A.-C. [address] [place] [phone] Discharge Disposition: Home or Self Care 02/19/2024 1:45 PM PRECISION LAYOUT WORKER Appointment Department of Radiology, [facility], in [place], [place] [address] [place] [address] Fantasma Butt M.D. [address] [place] [phone] 02/20/2024 11:00 AM PRECISION LAYOUT WORKER Virtual Visit Department of Radiology, [facility], in [place], [place] [address] [place] [phone] Radha Ojeda P.A.-C., M.S. [address] [place] [phone] 04/13/2024 2:00 PM PRECISION LAYOUT WORKER Clinical Communication Virtual Review in [place], [place] 200 [place] [phone] 04/15/2024 12:00 PM PRECISION LAYOUT WORKER Appointment Department of Radiology, [facility], in [place], [place] [address] [place] [phone] Brittney Piña, DC, Jose Francisco. [address] [place] [phone] 04/15/2024 1:00 PM PRECISION LAYOUT WORKER Office Visit Department of Orthopedic Surgery in [place], [place] [address] [place] [phone] Vel Vinson M.D., M.B.A. [address] [place] [phone] documented as of this encounter Visit Diagnoses Diagnosis Ulcer Colon- Primary Hemorrhage Gastrointestinal documented in this encounter Care Teams Integrated Program Teacher Relationship Specialty Start Date End Date Elsewhere, Pcp PCP - General Internal Medicine 10/03/23 documented as of this encounter
--- OUTSIDE RECORDS SUMMARY | 2024-01-22 16:36 | XMS_ITS | Encounter Summary ---
Author Organization [facility] Address [address] [place] [address] Care Team Providers Care Manager Process Improvement Name Role Phone Elsewhere, Pcp Primary Care Provider Unavailabl e Encounter Details Date Type Department Care Team (Late st Contact Info) Description 12/18/2023 Clinical Communication Department of Orthopedic Surgery in [place], [place] [address] [place] [address] Vel Vinson M.D., M.B.A. [address] [place] [address] Social History Tobacco Use Types Packs/Day Years Used Date Smoking Tobacco: Never Passive Smoke Exposure: Never Smokeless Tobacco: Never Alcohol Use Standard Drinks/Week Comments Never 2 (1 standard drink = 0.6 oz pur e alcohol) [facility] Utilities Answer Date Recorded In the past 12 months has [facility] [employer], gas, oil, or water [employer] threatened to shut off services in your [...] your living situation today? 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 [address] [place] [phone] Discharge Disposition: Home or Self Care 02/19/2024 1:45 PM CERAMIC ENGINEERING PROFESSOR Appointment Department of Radiology, [facility], in [place], [place] [address] [place] [phone] Fantasma Butt M.D. [address] [place] [phone] 02/20/2024 11:00 AM CERAMIC ENGINEERING PROFESSOR Virtual Visit Department of Radiology, [facility], in [place], [place] [address] [place] [phone] Radha Ojeda P.A.-C., M.S. [address] [place] [phone] 04/13/2024 2:00 PM CERAMIC ENGINEERING PROFESSOR Clinical Communication Virtual Review in [place], [place] 200 [place] [phone] 04/15/2024 12:00 PM CERAMIC ENGINEERING PROFESSOR Appointment Department of Radiology, [facility], in [place], [place] [address] [place] [phone] Brittney Piña, Jose Francisco IRWIN. [address] [place] [phone] 04/15/2024 1:00 PM CERAMIC ENGINEERING PROFESSOR Office Visit Department of Orthopedic Surgery in [place], [place] [address] [place] [phone] Vel Vinson M.D., M.B.A. [address] [place] [phone] documented as of this encounter Visit Diagnoses Not on filedocumented in this encounter Care Teams Manager Process Improvement Relationship Specialty Start Date End Date Elsewhere, Pcp PCP - General Internal Medicine 10/03/23 documented as of this encounter
--- OUTSIDE RECORDS SUMMARY | 2024-01-22 16:36 | XMS_ITS | Encounter Summary ---
Author Organization [facility] Address [address] [place] [address] Care Team Providers Care Brush Filler Hand Name Role Phone Elsewhere, Pcp Primary Care Provider Unavailabl e Reason for Visit * Reason Onset Date Comments e-Consult Follow-Up 12/18/2023 Completed post ED visit 11/27 Encounter Details Date Type Department Care Team (Latest Contact Info) Description 12/18/2023 Clinical Communication Division of Gastroenterology in [place], [place] [address] [place] [address] Ede Crespo M.D. [address] [place] [address] e-Consult Follow-Up (Completed 12/07 post ED visit 11/27) Social History Tobacco Use Types Packs/Day Years Used Date Smoking Tobacco: Never Passive Smoke Exposure: Never Smokeless Tobacco: Never Alcohol Use Standard Drinks/Week Comments Never 2 (1 standard drink = 0.6 oz pur e alcohol) [facility] Utilities Answer Date Recorded In the past 12 months has [employer], gas, oil, or water [employer] threatened to shut off services in your [...] your living situation today? I have a [facility] place to live 01/15/2024 Sex and Gender Information Value Date Recorded Sex Assigned at Male 07/26/2022 1:30 PM CDT Legal Sex Male 6:41 AM TONGUE STITCHER Gender Identity Male 07/26/2022 1:32 PM CDT Sexual Orientation Straight 07/26/2022 1: 32 PM CDT documented as of this encounter Plan of Treatment Upcoming Encounters Date Type Department Care Team (Latest Contact Info) Description 01/27/2024 12:30 PM TONGUE STITCHER Appointment Department of Orthopedic Surgery in [place] [phone] [place] [phone] Lizeth Joe MPAS, P.A.-C. [address] [place] [phone] Discharge Disposition: Home or Self Care 02/19/2024 1:45 PM TONGUE STITCHER Appointment Department of Radiology, [facility] in [address] [phone] Fantasma Butt M.D. [address] [place] [phone] 02/20/2024 11:00 AM TONGUE STITCHER Virtual Visit Department of Radiology, [facility], in [address] [phone] Radha Ojeda P.A.-C., M.S. [address] [place] [phone] 04/13/2024 2:00 PM TONGUE STITCHER Clinical Communication Virtual Review in [place], [place] 200 [place] [phone] 04/15/2024 12:00 PM TONGUE STITCHER Appointment Department of Radiology, [facility], in [address] [phone] Brittney Piña MPAS, P.Yun.-C. [address] [place] [phone] 04/15/2024 1:00 PM TONGUE STITCHER Office Visit Department of Orthopedic Surgery in [address] [phone] Vel Vinson M.D., M.B.A. [address] [place] [phone] documented as of this encounter Visit Diagnoses Not on filedocumented in this encounter Care Teams Brush Filler Hand Relationship Specialty Start Date End Date Elsewhere, Pcp PCP - General Internal Medicine 10/03/23 documented as of this encounter
--- OUTSIDE RECORDS SUMMARY | 2024-01-22 16:36 | XMS_ITS | Encounter Summary ---
Author Organization [facility] Address 200 [place] [address] Care Team Providers Care Non Profit Job Titles Name Role Phone Elsewhere, Pcp Primary Care Provider Unavailabl e Reason for Referral * Physical Therapy (Routine) - Authorized Specialty Diagnoses / Procedures Referred By Tammi t Referred To Contact Diagnoses Infection Total Hip Arthroplasty Subsequent Right Maurisio Peoples M.D. 200 [place] [address] Phone: tel: fax: Referral ID Status Reason Start Date Expiration Date Visits Requested Visits Authorized [id number] Authorized Patient Preference 4 06/05/2025 1 1 Encounter Details Date Type Department Care Team (Late st Contact Info) Description 12/05/2023 Orders Only Department of Orthopedic Surgery in [place], [place] [address] [place] [phone] Maurisio Peoples M.D. 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 I have a [facility] place to live 11/29/2023 Sex and Gender Information Value Date Recorded Sex Assigned at Male 07/26/2022 1:30 PM CDT Legal Sex Male 6:41 AM BUSINESS ANALYTICS MANAGER Gender Identity Male 07/26/2022 1:32 PM CDT Sexual Orientation Straight 07/26/2022 1: 32 PM CDT documented as of this encounter Plan of Treatment Upcoming Encounters Date Type Department Care Team (Latest Contact Info) Description 01/27/2024 12:30 PM BUSINESS ANALYTICS MANAGER Appointment Department of Orthopedic Surgery in [address] [phone] Lizeth Joe MPAS, P.A.-C. [address] [place] [phone] Discharge Disposition: Home or Self Care 02/19/2024 1:45 PM BUSINESS ANALYTICS MANAGER Appointment Department of Radiology, [facility] in [address] [phone] Fantasma Butt M.D. [address] [place] [phone] 02/20/2024 11:00 AM BUSINESS ANALYTICS MANAGER Virtual Visit Department of Radiology, [facility], in [address] [phone] Radha Ojeda P.A.-Venu., M.S. [address] [place] [phone] 04/13/2024 2:00 PM BUSINESS ANALYTICS MANAGER Clinical Communication Virtual Review in [address] [phone] 04/15/2024 12:00 PM BUSINESS ANALYTICS MANAGER Appointment Department of Radiology, [facility] in [address] [phone] Brittney Piña MPAS, P.A.-C. [address] [place] [address] [phone] 04/15/2024 1:00 PM BUSINESS ANALYTICS MANAGER Office Visit Department of Orthopedic Surgery in [place], [place] [address] [place] [phone] Vel Vinson M.D., M.B.A. [address] [place] [phone] documented as of this encounter Visit Diagnoses Diagnosis Infection Total Hip Arthroplasty Subsequent Right- Primary documented in this encounter Care Teams Non Profit Job Titles Relationship Specialty Start Date End Date Elsewhere, Pcp PCP - General Internal Medicine 10/03/23 documented as of this encounter
--- OUTSIDE RECORDS SUMMARY | 2024-01-22 16:36 | XMS_ITS | Encounter Summary ---
Author Organization [facility] Address [address] [place] [address] Care Team Providers Care Coil Machine Operator Name Role Phone Elsewhere, Pcp Primary Care Provider Unavailabl e Encounter Details Date Type Department Care Team (Late st Contact Info) Description 10/21/2023 Clinical Communication Department of Orthopedic Surgery in [place], [place] [address] [place] [phone] Vel Vinson M.D., M.B.A. [address] [place] [phone] Social History Tobacco Use Types Packs/Day Years Used Date Smoking Tobacco: Never Passive Smoke Exposure: Never Smokeless Tobacco: Never Alcohol Use Standard Drinks/Week Comments Never 2 (1 standard drink = 0.6 oz pur e alcohol) [facility] Utilities Answer Date Recorded In the past 12 months has [facility] [employer], gas, oil, or water [employer] threatened to shut off services in your [...] PM CDT Legal Sex Male 6:41 AM EDGER MACHINE HELPER Gender Identity Male 07/26/2022 1:32 PM CDT Sexual Orientation Straight 07/26/2022 1: 32 PM CDT documented as of this encounter Plan of Treatment Upcoming Encounters Date Type Department Care Team (Latest Contact Info) Description 01/27/2024 12:30 PM EDGER MACHINE HELPER Appointment Department of Orthopedic Surgery in [address] [phone] Lizeth Joe MPAS, P.A.-C. [address] [place] [phone] Discharge Disposition: Home or Self Care 02/19/2024 1:45 PM EDGER MACHINE HELPER Appointment Department of Radiology, [facility], in [place], [place] [address] [place] [phone] Fantasma Butt M.D. [address] [place] [address] [phone] 02/20/2024 11:00 AM EDGER MACHINE HELPER Virtual Visit Department of Radiology, [facility], in [place], [place] [address] [place] [phone] Radha Ojeda P.A.-C., M.S. [address] [place] [address] [phone] 04/13/2024 2:00 PM EDGER MACHINE HELPER Clinical Communication Virtual Review in [place], [place] 200 [place] [phone] 04/15/2024 12:00 PM EDGER MACHINE HELPER Appointment Department of Radiology, [facility], in [place], [place] [address] [place] [phone] Brittney Piña MPAS PNadir-C. [address] [place] [phone] 04/15/2024 1:00 PM EDGER MACHINE HELPER Office Visit Department of Orthopedic Surgery in [place], [place] [address] [place] [phone] Vel Vinson M.D., M.B.A. [address] [place] [phone] documented as of this encounter Visit Diagnoses Diagnosis Infection Total Hip Arthroplasty Subsequent Right- Primary documented in this encounter Care Teams Coil Machine Operator Relationship Specialty Start Date End Date Elsewhere, Pcp PCP - General Internal Medicine 10/03/23 documented as of this encounter
--- OUTSIDE RECORDS SUMMARY | 2024-01-22 16:36 | XMS_ITS | Encounter Summary ---
Author Organization [facility] Address [address] [place] [address] Care Team Providers Care Career Coordinator Name Role Phone Elsewhere, Pcp Primary [...] = 0.6 oz pur e alcohol) [facility] Utilities Answer Date Recorded In [...] living situation today? I have a [facility] place to live 11/29/2023 Sex and Gender Information Value Date Recorded Sex Assigned at Male 07/26/2022 1:30 PM CDT Legal Sex Male 6:41 AM DIAMOND SANDER Gender Identity Male 07/26/2022 1:32 PM CDT Sexual Orientation Straight 07/26/2022 1: 32 PM CDT documented as of this encounter Plan of Treatment Upcoming Encounters Date Type Department Care Team (Latest Contact Info) Description 01/27/2024 12:30 PM DIAMOND SANDER Appointment Department of Orthopedic Surgery in [place], [place] [address] [place] [phone] Lizeth Joe MPAS, P.A.-C. [address] [place] [phone] Discharge Disposition: Home or Self Care 02/19/2024 1:45 PM DIAMOND SANDER Appointment Department of Radiology, [facility], in [place], [place] [address] [place] [phone] Fantasma Butt M.D. [address] [place] [phone] 02/20/2024 11:00 AM DIAMOND SANDER Virtual Visit Department of Radiology, [facility], in [place], [place] [address] [place] [phone] Radha Ojeda P.A.-C., M.S. [address] [place] [phone] 04/13/2024 2:00 PM DIAMOND SANDER Clinical Communication Virtual Review in [place], [place] 200 [place] [phone] 04/15/2024 12:00 PM DIAMOND SANDER Appointment Department of Radiology, [facility], in [place], [place] [address] [place] [phone] Brittney Piña, DC, PNadir-C. [address] [place] [phone] 04/15/2024 1:00 PM DIAMOND SANDER Office Visit Department of Orthopedic Surgery in [place], [place] [address] [place] [phone] Vel Vinson M.D., M.B.A. [address] [place] [phone] documented as of this encounter Procedures Procedure [...] on filedocumented in this encounter Care Teams Career Coordinator Relationship Specialty Start Date End Date Elsewhere, Pcp PCP - General Internal Medicine 10/03/23 documented as of this encounter
--- OUTSIDE RECORDS SUMMARY | 2024-01-22 16:36 | XMS_ITS | Encounter Summary ---
Author Organization [facility] Address [address] [place] [address] Care Team Providers Care Cell Lead Name Role Phone Elsewhere, Pcp Primary Care Provider Unavailabl e Encounter Details Date Type Department Care Team (Late st Contact Info) Description 12/17/2023 Clinical Communication Department of Hospital Internal Medicine in [place], [place] [address] [place] [phone] Lul Galeas M.D. [address] [place] [phone] Social History Tobacco Use Types Packs/Day Years Used Date Smoking Tobacco: Never Passive Smoke Exposure: Never Smokeless Tobacco: Never Alcohol Use Standard Drinks/Week Comments Never 2 (1 standard drink = 0.6 oz pur e alcohol) [facility] Utilities Answer Date Recorded In the past 12 months has [facility] [employer] gas, oil, or water [employer] threatened to shut off services in your [...] your living situation today? I have a [facility] place to live 01/15/2024 Sex and Gender Information Value Date Recorded Sex Assigned at Male 07/26/2022 1:30 PM CDT Legal Sex Male 6:41 AM CNA CAREGIVER Gender Identity Male 07/26/2022 1:32 PM CDT Sexual Orientation Straight 07/26/2022 1: 32 PM CDT documented as of this encounter Plan of Treatment Upcoming Encounters Date Type Department Care Team (Latest Contact Info) Description 01/27/2024 12:30 PM CNA CAREGIVER Appointment Department of Orthopedic Surgery in [place], [place] [address] [place] [phone] Lizeth Joe, DEBRAS, P.A.-C. [address] [place] [phone] Discharge Disposition: Home or Self Care 02/19/2024 1:45 PM CNA CAREGIVER Appointment Department of Radiology, [facility], in [place], [place] [address] [place] [phone] Fantasma Butt M.D. [address] [place] [phone] 02/20/2024 11:00 AM CNA CAREGIVER Virtual Visit Department of Radiology, [facility], in [place], [place] [address] [place] [phone] Radha Ojeda P.A.-C., M.S. [address] [place] [phone] 04/13/2024 2:00 PM CNA CAREGIVER Clinical Communication Virtual Review in [place], [place] [address] [place] [phone] 04/15/2024 12:00 PM CNA CAREGIVER Appointment Department of Radiology, [facility], in [place], [place] [address] [place] [phone] Brittney Piña, DEBRAS, Jose Francisco. [address] [place] [phone] 04/15/2024 1:00 PM CNA CAREGIVER Office Visit Department of Orthopedic Surgery in [place], [place] [address] [place] [phone] Vel Vinson M.D., M.B.A. [address] [place] [phone] documented as of this encounter Visit Diagnoses Not on filedocumented in this encounter Care Teams Cell Lead Relationship Specialty Start Date End Date Elsewhere, Pcp PCP - General Internal Medicine 10/03/23 documented as of this encounter
[2024-01-22 17:06] LABS: Hemoglobin* 8.4 gm/dL (13.5-17.5)
== END 2024-01-22 16:27 | disposition home or self-care (01) ==
LOC: NPINS 16:26
PROVIDERS: PCP Family Medicine; Visit Provider Nurse Practitioner Gerontology
DX: D64.9 Anemia, unspecified (principal)
CPT/HCPCS: 85018

== ENCOUNTER 2024-03-04 17:12 | Outpatient (CLI) | payer OTHER, SELFPAY | END 2024-03-04 17:13 | disposition home or self-care (01) | LOC: AMB 03-18 22:32 | PROVIDERS: PCP Family Medicine; Visit Provider Emergency Medicine Emergency Medical Services | DX: R06.09 Other forms of dyspnea (principal) | CPT/HCPCS: A0425; A0427 ==

== ENCOUNTER 2024-03-04 17:26 | Observation (INO) | payer OTHER, SELFPAY ==
[2024-03-04] VITALS (31 sets, daily range): BP systolic 110–149; BP diastolic 55–78; PULSE 79–92; RESP 24–30; TEMP 36.6; O2SAT 79–96
--- NOTE | 2024-03-04 17:47 | CRLHL7_ITS ---
For Patients: As a result of the Century Cures Act, medical imaging exams and procedure reports are released immediately into your electronic medical record. You may view this report before your referring provider. If you have questions, please contact your health care provider. INDICATION: Hypoxia. TECHNIQUE: Chest 1 views. COMPARISON: None. FINDINGS/IMPRESSION: No focal consolidation, effusion or pneumothorax. Cardiac size is within normal limit without pulmonary edema. Dictated by Cisco Aggrawal MD @ 03/04/2024 6:49:49 PM (Electronically Signed)
[2024-03-04 18:21] LABS: Basophils Percent Auto 0.4 % (0.0-3.0); Eosinophils Percent Auto 5.4 % (0.0-7.0); Hematocrit 33.9 % (37.0-53.0); Hemoglobin* 10.6 gm/dL (13.5-17.5); Immature Granulocytes Pct Auto 0.4 %; Lymphocytes Percent Auto 7.4 % (20-44); Mean Corpuscular HGB Conc 31 gm/dL (32-36); Mean Corpuscular Hemoglobin 28 pg (26-34); Mean Corpuscular Volume 89 fL (80-100); Monocytes Percent Auto 10.3 % (0.0-11.0); Neutrophils Percent Auto 76.1 % (42.0-72.0); Platelet Count* 234 K/uL (140-440); RDW Coefficient of Variation % 14.1 % (11.5-15.5)
[2024-03-04 18:26] LABS: Slide Review Reflex No
[2024-03-04 18:33] LABS: Chloride* 100 mmol/L (96-114); Potassium* 4.4 mmol/L (3.6-5.1); Sodium* 136 mmol/L (135-149)
[2024-03-04 18:36] LABS: PCR FLU A POSITIVE PCR FLU A (Negative); PCR FLU B Negative PCR FLU B (Negative); PCR RSV Negative PCR RSV (Negative); SARS PCR* Negative SARS-CoV-2 (Negative)
[2024-03-04 18:36] LABS: Anion Gap 6 mEq/L (7-15); Blood Urea Nitrogen* 23 mg/dL (7-30); Calcium* 8.9 mg/dL (8.4-10.6); Carbon Dioxide* 30 mmol/L (20-32); Creatinine* 0.7 mg/dL (0.5-1.5); Estimated Glomerular Filt Rate 106 ml/min; Glucose* 166 mg/dL (60-115)
--- NOTE | 2024-03-04 18:37 | ED.GENADULT ---
HPI - General Adult General Chief complaint: Shortness of Breath/Dyspnea Stated complaint: Flu-like symptoms Time Seen by Provider: 03/04/24 17:43 History of Present Illness HPI narrative: This 59-year-old male comes in from [place] reporting nonspecific symptoms of not feeling well over the past week or so. He arrives here with oximetry at 87% on room air. Does not report any cough. He states that he did have an episode of diarrhea. He did have a knee surgery about a month ago and currently is on an antibiotic for the next month at least to treat an infection apparently in the bone . He arrives here with normal vital signs except oximetry is 87% on room air. His heart rate and blood pressure are in normal range. Related Data Home Medications ?Medication ?Instructions ?Recorded ?Confirmed aspirin 81 mg chewable tablet 1 tab PO DAILY 11/03/23 03/04/24 atorvastatin 20 mg tablet 20 mg PO DAILY 11/03/23 11/03/23 calcium carbonate (Champ-Gest mg PO 11/03/23 Antacid) lisinopril 5 mg tablet 5 mg PO DAILY 11/03/23 11/03/23 oxycodone 5 mg tablet 2.5 mg PO Q6H PRN pain 11/03/23 11/03/23 rivaroxaban 10 mg tablet (Xarelto) 10 mg PO DAILY 11/03/23 03/04/24 amlodipine 5 mg tablet 5 mg PO DAILY 03/04/24 03/04/24 atorvastatin 40 mg tablet 40 mg PO DAILY 03/04/24 03/04/24 cefadroxil 500 mg capsule 500 mg PO BID 03/04/24 03/04/24 insulin NPH isoph U-100 human 100 8 unit subcut QAM With meal 03/04/24 03/04/24 unit/mL (3 mL) subcutaneous pen (Novolin N FlexPen) levetiracetam 100 mg/mL oral mg PO 03/04/24 solution pantoprazole 40 mg tablet,delayed 40 mg PO DAILY 03/04/24 03/04/24 release sertraline 50 mg tablet 50 mg PO DAILY 03/04/24 03/04/24 Allergies Allergy/AdvReac Type Severity Reaction Status Date / Time No Known Drug Allergies Allergy Verified 03/04/24 19:32 Review of Systems Status of ROS: Reports: 10 or more systems reviewed and unremarkable except as noted in History and below Narrative: Constitutional: No fevers, no weight gain or loss. Eyes: No discharge. No vision changes. HENT: No congestion, no sore throat, no ear pain. Cardiovascular: No chest pain, no palpitations. Respiratory: No wheezes, no cough. Gastrointestinal: No abdominal pain, no vomiting . He reports an episode of diarrhea. Genitourinary: No dysuria, no hematuria. Musculoskeletal: Normal range of motion. Skin: No rashes, no pruritis. Neurological: No dizziness, weakness, sensory change, speech change. Endo/Heme/Allergies: No bruising or bleeding. No polydipsia. Pysch: no suicidality, no anxiety, no insomnia. All other systems reviewed and are negative. PFSH PFSH Social History Smoking Status: Never smoker How often do you have a drink containing alcohol: never AUDIT-C Alcohol total score: 0 Non-prescribed substance use: denies use Exam Const: Vital Signs, click to edit/add: Vital Signs - 24 hr 03/04/24 17:28 03/04/24 17:43 03/04/24 17:45 Temperature 97.8 F Pulse Rate 86 88 Pulse Rate [Pulse Oximeter] 84 Respiratory Rate 24 Blood Pressure [Le ft Upper Arm] 117/65 Pulse Oximetry 87 L 89 92 Oxygen Delivery Me thod Room Air Oxygen Flow Rate 03/04/24 18:30 03/04/24 19:45 Temperature Pulse Rate Pulse Rate [Pulse Oximeter] 85 82 Respiratory Rate 28 H 30 H Blood Pressure [Le ft Upper Arm] 144/72 H 149/78 H Pulse Oximetry 93 94 Oxygen Delivery Me thod Nasal Cannula Nasal Cannula Oxygen Flow Rate 3 3 Course Vital Signs Vital signs: Initial Vital Signs Temperature 97.8 F 03/04/24 17:28 Temperature Source Temporal Artery Scan 03/04/24 17:28 Pulse Rate 84 03/04/24 17:28 Respiratory Rate 24 03/04/24 17:28 Blood Pressure 117/65 03/04/24 17:28 Blood Pressure Mean 82 03/04/24 17:28 Blood Pressure Position Supine 03/04/24 17:28 Pulse Oximetry 87 L 03/04/24 17:28 Oxygen Delivery Method Room Air 03/04/24 17:28 Vital Signs Temperature 97.8 F 03/04/24 17:28 Pulse Rate 84 03/04/24 17:28 Respiratory Rate 24 03/04/24 17:28 Blood Pressure 117/65 03/04/24 17:28 Pulse Oximetry 87 L 03/04/24 17:28 Oxygen Delivery Method Room Air 03/04/24 17:28 Temperature 97.8 F 03/04/24 17:28 Pulse Rate 82 03/04/24 19:45 Respiratory Rate 30 H 03/04/24 19:45 Blood Pressure 149/78 H 03/04/24 19:45 Pulse Oximetry 94 03/04/24 19:45 Oxygen Delivery Method Nasal Cannula 03/04/24 19:45 Oxygen Flow Rate 3 03/04/24 19:45 Medical Decision Making MDM Narrative Medical decision making narrative: This patient comes in with generalized malaise and arrives with oximetry at 87% on room air. He is placed on nasal cannula oxygen at 3 L and it improved up to 90-94%. He did have a knee surgery about a month ago. He does not report any signs of infection except he is currently taking an antibiotic for a bone infection. Nasal pharyngeal swab is obtained and returns positive for influenza A. Lab results are notable for an elevated D-dimer at around 3. A CT scan of the chest with IV contrast is obtained and shows no sign of pulmonary embolism. There are a few nodules but no other significant findings. I revisited the patient and turned off his nasal cannula oxygen. After a couple minutes he reverted back to 84-85% oximetry on room air. There are no hospital beds available currently but will be in about 3 hours when the shift change occurs. I did speak with the hospitalist on-call, Cheyanne Baldwin, who accepts him for admission at that time. Lab Data Labs: Lab Results 03/04/24 03/04/24 Range/Units 17:18 18:04 WBC 11.70 H (4.50-11.00) K/uL RBC 3.80 L (4.30-5.90) m/uL Hgb 10.6 L (13.5-17.5) gm/dL Hct 33.9 L (37.0-53.0) % MCV 89 (80-100) fL MCH 28 (26-34) pg MCHC 31 L (32-36) gm/dL RDW Coeff of Philipp 14.1 (11.5-15.5) % Plt Count 234 (140-440) K/uL Neut % (Auto) 76.1 H (42.0-72.0) % Lymph % (Auto) 7.4 L (20-44) % Preble % (Auto) 10.3 (0.0-11.0) % Eos % (Auto) 5.4 (0.0-7.0) % Baso % (Auto) 0.4 (0.0-3.0) % Neut # (Auto) 8.90 H (1.7-7.0) K/uL Lymph # (Auto) 0.90 (0.90-2.90) K/uL Preble # (Auto) 1.20 H (0.00-0.90) K/UL Eos # (Auto) 0.60 H (0.00-0.50) K/uL Baso # (Auto) 0.00 (0.00-0.30) K/uL Abs Immat Gran (auto) 0.00 (0.00-0.30) K/uL Imm/Tot Granulo (auto) 0.4 % D-Dimer Quant (PE/DVT) 3.12 H (0.00-0.50) ug/ml Sodium 136 (135-149) mmol/L Potassium 4.4 (3.6-5.1) mmol/L Chloride 100 (96-114) mmol/L Carbon Dioxide 30 (20-32) mmol/L Anion Gap 6 L (7-15) mEq/L BUN 23 (7-30) mg/dL Creatinine 0.7 (0.5-1.5) mg/dL Estimated GFR 106 ml/min Glucose 166 H (60-115) mg/dL Calcium 8.9 (8.4-10.6) mg/dL SARS-CoV-2 (PCR) Negative SARS-CoV-2 (Negative) Influenza Type A (PCR) POSITIVE PCR FLU A A (Negative) Influenza Type B (PCR) Negative PCR FLU B (Negative) RSV (PCR) Negative PCR RSV (Negative) Imaging Data Chest x-ray: Radiologist's impression: No focal consolidation, effusion or pneumothorax. Cardiac size is within normal limit without pulmonary edema. CT scan - chest: Radiologist's impression: 1. No pulmonary embolus. No CT evidence of right heart strain. 2. Scattered tree-in-bud nodularity in the right lower lobe, likely infectious or inflammatory bronchiolitis. The 8 mm right lower lobe pulmonary nodule is also probably infectious or inflammatory in etiology. Recommend short interval follow-up CT in 6-12 months to assess stability or resolution, per Fleischner society guidelines. 3. Cholelithiasis without CT evidence of acute cholecystitis. 4. Probable cirrhotic liver morphology. ECG Data Attestation: I personally reviewed and interpreted this ECG as follows: Interpretation: Normal sinus rhythm. Rate is 81 beats per minute. There are no ST or T-wave abnormalities. Discharge Plan Discharge Clinical Impression: Influenza A Patient Disposition: Admitted As Observation Condition: Unchanged Prescriptions: No Action atorvastatin 20 mg tablet 20 mg PO DAILY aspirin 81 mg tablet,chewable 1 tab PO DAILY Xarelto 10 mg tablet 10 mg PO DAILY calcium carbonate [Champ-Gest Antacid] 200 mg calcium (500 mg) tablet,chewable PO lisinopril 5 mg tablet 5 mg PO DAILY oxycodone 5 mg tablet 2.5 mg PO Q6H PRN (Reason: pain) atorvastatin 40 mg tablet 40 mg PO DAILY amlodipine 5 mg tablet 5 mg PO DAILY Novolin N FlexPen 100 unit/mL (3 mL) insulin pen 8 unit subcut QAM pantoprazole 40 mg tablet,delayed release (DR/EC) 40 mg PO DAILY sertraline 50 mg tablet 50 mg PO DAILY levetiracetam 100 mg/mL solution PO cefadroxil 500 mg capsule 500 mg PO BID Follow Up/Referrals: William Edwards MD [Primary Care Provider] -
[2024-03-04 18:45] LABS: D Dimer Quantitative* 3.12 ug/ml (0.00-0.50)
--- NOTE | 2024-03-04 19:09 | CRLHL7_ITS ---
For Patients: As a result of the Century Cures Act, medical imaging exams and procedure reports are released immediately into your electronic medical record. You may view this report before your referring provider. If you have questions, please contact your health care provider. INDICATION: Dyspnea. Chest pain. TECHNIQUE: Multiplanar CT pulmonary angiogram was performed after the administration of 95 mL of Isovue 370 intravenous contrast. COMPARISON: Chest radiograph 03/04/2024. FINDINGS: Lower neck: The visualized thyroid is unremarkable. Cardiovascular: Contrast opacification of the pulmonary arterial tree is adequate. Heart size is normal. Thoracic aorta and pulmonary artery are normal in caliber. Mild atherosclerotic calcifications of the aortic arch. Dense coronary arterial calcifications. No pulmonary embolus. Mediastinum and lymph nodes: Unremarkable. No pathologic mediastinal or hilar lymphadenopathy by size criteria. Lungs: No focal consolidation. There is tree-in-bud nodularity involving the right lower lobe. There may be a 8 mm right lower lobe pulmonary nodule (5:107). Linear bandlike opacification of the lung bases bilaterally, likely subsegmental atelectasis and/or scarring. Airways: The trachea remains patent and midline. Mild diffuse peribronchial wall thickening. Pleura: No pleural effusions or pneumothorax Chest wall: Unremarkable. Prominent axillary lymph nodes that do not meet size criteria for lymphadenopathy. Bones: No acute osseous abnormalities. Mild degenerative changes of the thoracic spine. Upper abdomen: Cholelithiasis. Probable micronodular contour to the hepatic border. No acute findings in the visualized upper abdomen. No reflux of contrast material into the IVC. IMPRESSION: 1. No pulmonary embolus. No CT evidence of right heart strain. 2. Scattered tree-in-bud nodularity in the right lower lobe, likely infectious or inflammatory bronchiolitis. The 8 mm right lower lobe pulmonary nodule is also probably infectious or inflammatory in etiology. Recommend short interval follow-up CT in 6-12 months to assess stability or resolution, per Fleischner society guidelines. 3. Cholelithiasis without CT evidence of acute cholecystitis. 4. Probable cirrhotic liver morphology. Please note that all CT scans at this facility use dose modulation, iterative reconstruction, and/or weight-based dosing when appropriate to reduce radiation dose to as low as reasonably achievable. Dictated by Cameron Donnelly MD @ 03/04/2024 8:10:56 PM (Electronically Signed)
[2024-03-04] MEDS: IPRAT-ALBUT 0.5-2.5 MG/3 ML NEB 1 NEB IH (21:11)
[2024-03-04] MEDS: METHYLPREDNISOLONE SOD SUCC 62.5 MG/ML (125) 125 MG IVP (21:11)
[2024-03-05] VITALS (103 sets, daily range): BP systolic 90–146; BP diastolic 36–99; PULSE 66–87; RESP 16–30; TEMP 36.1–37; O2SAT 90–99; BMI 28.1
[2024-03-05] MEDS: OSELTAMIVIR PHOSPHATE 75 MG CAPSULE PO ×2 (01:45→20:32)
[2024-03-05 02:11] LABS: HCO3 VBG 28 mmol/L (21-28); PCO2 VBG 41 mmHG (40-50); PO2 VBG 56.5 mmHG (25-47); pH VBG 7.439 (7.32-7.43)
[2024-03-05] MEDS: ASPIRIN 81 MG TAB.CHEW PO (11:48)
[2024-03-05] MEDS: OMEPRAZOLE 20 MG CAPSULE DR PO (11:48)
[2024-03-05] MEDS: cephALEXin 500 MG CAPSULE PO ×3 (11:48→20:32)
[2024-03-05] MEDS: levETIRAcetam 500 MG TABLET 750 MG PO ×2 (11:49→20:33)
[2024-03-05] MEDS: AMLODIPINE 5 MG TABLET PO (11:49)
[2024-03-05] MEDS: INSULIN NPH 100 UNIT/ML 8 UNIT SUBCUT (11:50)
--- NOTE | 2024-03-05 15:57 | P.IMHP_ITS ---
Hospitalist- H&P: HPI History of Present Illness Date Seen: 03/05/24 Chief complaint: Flu-like symptoms Narrative: Estevan Lester is a 59 year old male Who presents from [facility] facility w/ PMHx of stroke with right-sided weakness (May 2023), afib on xarelto, upper GIB, Hx of Rt hip total arthroplasty that got a revision Sx s/p a fall in 2023, who presents with generalized malaise and SOB/hypoxia. O2 sat on presentation was in the high 80s and was placed on high-flow nasal cannula at the ED. At the ED, patient was hemodynamically stable though hypoxic. Flu A test came back +ve. CT chest showed scattered tree-in-bud nodularity in the right lower lobe, likely infectious or inflammatory bronchiolitis. patient has some cognitive issues after his massive stroke, his sister was there helping with history and she mentioned that he does not have any history of heart or pulmonary disease. He does not use oxygen at home. patient was admitted for acute hypoxic respiratory failure treatment. Review of Systems Status of ROS: Reports: 6 or more systems reviewed and unremarkable except as noted in History and below [facility] Medical History (Updated 03/05/24 @ 18:38 by Ginna Carmen MD) Lung nodule ?R91.1 - Solitary pulmonary nodule (ICD-10) Cholelithiasis ?K80.20 - Calculus of gallbladder without cholecystitis without obstruction (ICD-10) Influenza A ?J10.1 - Influenza due to other identified influenza virus with other respiratory manifestations (ICD-10) History of upper gastrointestinal bleeding ?Z87.19 - Personal history of other diseases of the digestive system (ICD-10) Chronic anticoagulation ?Z79.01 - skilled nursing (current) use of anticoagulants (ICD-10) Afib ?I48.91 - Unspecified atrial fibrillation (ICD-10) Stroke ?I63.9 - Cerebral infarction, unspecified (ICD-10) Surgical History (Updated 03/05/24 @ 18:34 by Ginna Carmen MD) H/O total hip arthroplasty ?Z96.649 - Presence of unspecified artificial hip joint (ICD-10) Social History Smoking Status: Never smoker How often do you have a drink containing alcohol: never AUDIT-C Alcohol total score: 0 Non-prescribed substance use: denies use Meds Home Medications and Allergies Home Medications ?Medication ?Instructions ?Recorded ?Confirmed ?Type aspirin 81 mg chewable tablet 1 tab PO DAILY 11/03/23 03/04/24 History oxycodone 5 mg tablet 5 - 10 mg PO Q4H PRN pain 11/03/23 03/05/24 History rivaroxaban 10 mg tablet (Xarelto) 10 mg PO DAILY 11/03/23 03/04/24 History amlodipine 5 mg tablet 5 mg PO DAILY 03/04/24 03/04/24 History atorvastatin 40 mg tablet 40 mg PO HS 03/04/24 03/05/24 History cefadroxil 500 mg capsule 500 mg PO BID 03/04/24 03/04/24 History insulin NPH isoph U-100 human 100 8 unit subcut QAM With meal 03/04/24 03/04/24 History unit/mL (3 mL) subcutaneous pen (Novolin N FlexPen) levetiracetam 100 mg/mL oral 750 mg PO BID 03/04/24 03/05/24 History solution pantoprazole 40 mg tablet,delayed 40 mg PO DAILY 03/04/24 03/04/24 History release sertraline 50 mg tablet 50 mg PO DAILY 03/04/24 03/04/24 History acetaminophen 500 mg tablet 1,000 mg PO TID 03/05/24 03/05/24 History calcium 315 mg (as 1 tab PO BID 03/05/24 03/05/24 History citrate)-vitamin D3 6.25 mcg (250 unit) tablet carboxymethylcellulose sodium 0.5 2 drp ophthalmic (eye) QID PRN 03/05/24 03/05/24 History % eye drops in a dropperette (Lubricant Eye Drops) nystatin 100,000 unit/gram topical 1 applic topical BID 03/05/24 03/05/24 History cream polyethylene glycol 3350 17 17 g PO DAILY 03/05/24 03/05/24 History gram/dose oral powder sennosides 8.6 mg tablet (senna) 8.6 mg PO BID 03/05/24 03/05/24 History Allergies Allergy/AdvReac Type Severity Reaction Status Date / Time No Known Drug Allergies Allergy Verified 03/04/24 19:32 Exam Narrative: Exam Narrative: Physical exam GENERAL: Comfortable, no acute distress on HFNC 40%, 35L/min HEAD AND NECK: Atraumatic, normocephalic CARDIOVASCULAR: RRR. Normal S1, S2. No murmurs. RESPIRATORY: Clear to auscultation B/L. Good air entry B/L. No wheezes or rhonchi. GASTROINTESTINAL: Not distended, not tender to palpation. NEUROLOGY: Alert, awake, oriented X 3 (though he is a bit slow in answering). Normal speech. Right-sided weakness of both upper and lower extremities. PSYCH: Normal mood, normal affect. Const: Vital Signs, click to edit/add: Vital Signs - 24 hr 03/04/24 17:28 03/04/24 17:43 03/04/24 17:45 Temperature 97.8 F Pulse Rate 86 88 Pulse Rate [Pulse Oximeter] 84 Respiratory Rate 24 Blood Pressure Blood Pressure [Le ft Arm] Blood Pressure [Le ft Upper Arm] 117/65 Pulse Oximetry 87 L 89 92 Oxygen Delivery Me thod Room Air Oxygen Flow Rate Fraction of Inspir ed Oxygen 03/04/24 18:30 03/04/24 19:45 03/04/24 20:09 Temperature Pulse Rate 90 Pulse Rate [Pulse Oximeter] 85 82 Respiratory Rate 28 H 30 H Blood Pressure Blood Pressure [Le ft Arm] Blood Pressure [Le ft Upper Arm] 144/72 H 149/78 H Pulse Oximetry 93 94 91 Oxygen Delivery Me thod Nasal Cannula Nasal Cannula Oxygen Flow Rate 3 3 Fraction of Inspir ed Oxygen 03/04/24 20:15 03/04/24 20:30 03/04/24 20:40 Temperature Pulse Rate 91 92 91 Pulse Rate [Pulse Oximeter] Respiratory Rate Blood Pressure 121/78 Blood Pressure [Le ft Arm] Blood Pressure [Le ft Upper Arm] Pulse Oximetry 90 88 88 Oxygen Delivery Me thod Nasal Cannula Oxygen Flow Rate 3 Fraction of Inspir ed Oxygen 03/04/24 20:41 03/04/24 20:43 03/04/24 20:45 Temperature Pulse Rate 91 90 Pulse Rate [Pulse Oximeter] Respiratory Rate Blood Pressure Blood Pressure [Le ft Arm] Blood Pressure [Le ft Upper Arm] Pulse Oximetry 89 88 89 Oxygen Delivery Me thod Nasal Cannula Oxygen Flow Rate 4 Fraction of Inspir ed Oxygen 03/04/24 21:00 03/04/24 21:01 03/04/24 21:15 Temperature Pulse Rate 86 88 90 Pulse Rate [Pulse Oximeter] Respiratory Rate 30 H Blood Pressure 120/76 Blood Pressure [Le ft Arm] Blood Pressure [Le ft Upper Arm] Pulse Oximetry 92 93 90 Oxygen Delivery Me thod Oxygen Flow Rate Fraction of Inspir ed Oxygen 03/04/24 21:30 03/04/24 21:45 03/04/24 22:00 Temperature Pulse Rate 86 88 85 Pulse Rate [Pulse Oximeter] Respiratory Rate 28 H Blood Pressure Blood Pressure [Le ft Arm] Blood Pressure [Le ft Upper Arm] Pulse Oximetry 94 93 88 Oxygen Delivery Me thod Oxygen Flow Rate Fraction of Inspir ed Oxygen 03/04/24 22:01 03/04/24 22:15 03/04/24 22:30 Temperature Pulse Rate 79 85 81 Pulse Rate [Pulse Oximeter] Respiratory Rate 30 H 30 H Blood Pressure 114/57 L Blood Pressure [Le ft Arm] Blood Pressure [Le ft Upper Arm] Pulse Oximetry 79 L 87 L 90 Oxygen Delivery Me thod High Flow Nasal Ca nnula High Flow Nasal Ca nnula Oxygen Flow Rate 30 30 30 Fraction of Inspir ed Oxygen 50 60 60 03/04/24 22:45 03/04/24 22:53 03/04/24 23:00 Temperature Pulse Rate 79 81 80 Pulse Rate [Pulse Oximeter] Respiratory Rate Blood Pressure 113/60 Blood Pressure [Le ft Arm] Blood Pressure [Le ft Upper Arm] Pulse Oximetry 92 93 93 Oxygen Delivery Me thod Oxygen Flow Rate Fraction of Inspir ed Oxygen 03/04/24 23:01 03/04/24 23:15 03/04/24 23:17 Temperature Pulse Rate 80 81 79 Pulse Rate [Pulse Oximeter] Respiratory Rate 30 H Blood Pressure 110/55 L 119/69 Blood Pressure [Le ft Arm] Blood Pressure [Le ft Upper Arm] Pulse Oximetry 93 95 96 Oxygen Delivery Me thod High Flow Nasal Ca nnula Oxygen Flow Rate 30 Fraction of Inspir ed Oxygen 60 03/04/24 23:30 03/04/24 23:32 03/04/24 23:45 Temperature Pulse Rate 80 80 81 Pulse Rate [Pulse Oximeter] Respiratory Rate Blood Pressure 113/59 L Blood Pressure [Le ft Arm] Blood Pressure [Le ft Upper Arm] Pulse Oximetry 95 95 95 Oxygen Delivery Me thod Oxygen Flow Rate Fraction of Inspir ed Oxygen 03/04/24 23:46 03/05/24 00:00 03/05/24 00:01 Temperature Pulse Rate 81 76 77 Pulse Rate [Pulse Oximeter] Respiratory Rate Blood Pressure 115/59 L 121/66 Blood Pressure [Le ft Arm] Blood Pressure [Le ft Upper Arm] Pulse Oximetry 96 94 94 Oxygen Delivery Me thod Oxygen Flow Rate Fraction of Inspir ed Oxygen 03/05/24 00:01 03/05/24 00:01 03/05/24 00:15 Temperature Pulse Rate 77 77 76 Pulse Rate [Pulse Oximeter] Respiratory Rate Blood Pressure 121/66 121/66 Blood Pressure [Le ft Arm] Blood Pressure [Le ft Upper Arm] Pulse Oximetry 94 94 95 Oxygen Delivery Me thod Oxygen Flow Rate Fraction of Inspir ed Oxygen 03/05/24 00:16 03/05/24 00:30 03/05/24 00:31 Temperature Pulse Rate 74 77 74 Pulse Rate [Pulse Oximeter] Respiratory Rate Blood Pressure 114/67 126/65 Blood Pressure [Le ft Arm] Blood Pressure [Le ft Upper Arm] Pulse Oximetry 95 99 97 Oxygen Delivery Me thod Oxygen Flow Rate Fraction of Inspir ed Oxygen 03/05/24 00:45 03/05/24 00:47 03/05/24 00:48 Temperature Pulse Rate 76 72 75 Pulse Rate [Pulse Oximeter] Respiratory Rate Blood Pressure 101/45 L Blood Pressure [Le ft Arm] Blood Pressure [Le ft Upper Arm] Pulse Oximetry 96 95 95 Oxygen Delivery Me thod Oxygen Flow Rate Fraction of Inspir ed Oxygen 03/05/24 01:00 03/05/24 01:02 03/05/24 01:15 Temperature Pulse Rate 73 73 73 Pulse Rate [Pulse Oximeter] Respiratory Rate 30 H Blood Pressure 111/36 L Blood Pressure [Le ft Arm] Blood Pressure [Le ft Upper Arm] Pulse Oximetry 95 95 97 Oxygen Delivery Me thod High Flow Nasal Ca nnula Oxygen Flow Rate 30 Fraction of Inspir ed Oxygen 60 03/05/24 01:17 03/05/24 01:30 03/05/24 01:32 Temperature Pulse Rate 74 77 75 Pulse Rate [Pulse Oximeter] Respiratory Rate 30 H Blood Pressure 121/63 104/58 L Blood Pressure [Le ft Arm] Blood Pressure [Le ft Upper Arm] Pulse Oximetry 98 99 98 Oxygen Delivery Me thod Oxygen Flow Rate Fraction of Inspir ed Oxygen 03/05/24 01:45 03/05/24 01:46 03/05/24 01:50 Temperature Pulse Rate 87 83 Pulse Rate [Pulse Oximeter] Respiratory Rate Blood Pressure 116/77 Blood Pressure [Le ft Arm] Blood Pressure [Le ft Upper Arm] Pulse Oximetry 96 96 Oxygen Delivery Me thod Oxygen Flow Rate Fraction of Inspir ed Oxygen 60 03/05/24 02:01 03/05/24 02:15 03/05/24 02:16 Temperature Pulse Rate 78 84 84 Pulse Rate [Pulse Oximeter] Respiratory Rate 18 18 Blood Pressure 119/83 116/66 Blood Pressure [Le ft Arm] Blood Pressure [Le ft Upper Arm] Pulse Oximetry 96 95 94 Oxygen Delivery Me thod High Flow Nasal Ca nnula High Flow Nasal Ca nnula High Flow Nasal Ca nnula Oxygen Flow Rate 20 20 20 Fraction of Inspir ed Oxygen 60 60 60 03/05/24 02:31 03/05/24 02:45 03/05/24 02:46 Temperature Pulse Rate 83 82 83 Pulse Rate [Pulse Oximeter] Respiratory Rate 18 18 Blood Pressure 106/65 106/61 Blood Pressure [Le ft Arm] Blood Pressure [Le ft Upper Arm] Pulse Oximetry 92 92 91 Oxygen Delivery Me thod High Flow Nasal Ca nnula High Flow Nasal Ca nnula High Flow Nasal Ca nnula Oxygen Flow Rate 20 20 20 Fraction of Inspir ed Oxygen 60 60 60 03/05/24 03:01 03/05/24 03:07 03/05/24 03:16 Temperature Pulse Rate 74 74 Pulse Rate [Pulse Oximeter] Respiratory Rate 16 18 Blood Pressure 104/55 L 104/57 L Blood Pressure [Le ft Arm] Blood Pressure [Le ft Upper Arm] Pulse Oximetry 91 91 Oxygen Delivery Me thod High Flow Nasal Ca nnula High Flow Nasal Ca nnula Oxygen Flow Rate 20 30 Fraction of Inspir ed Oxygen 60 60 60 03/05/24 03:31 03/05/24 04:00 03/05/24 04:16 Temperature Pulse Rate 77 76 Pulse Rate [Pulse Oximeter] Respiratory Rate 18 18 Blood Pressure 112/75 96/68 Blood Pressure [Le ft Arm] Blood Pressure [Le ft Upper Arm] Pulse Oximetry 95 96 Oxygen Delivery Me thod High Flow Nasal Ca nnula High Flow Nasal Ca nnula Oxygen Flow Rate 30 30 Fraction of Inspir ed Oxygen 60 60 60 03/05/24 04:17 03/05/24 04:30 03/05/24 04:31 Temperature Pulse Rate 70 73 73 Pulse Rate [Pulse Oximeter] Respiratory Rate Blood Pressure 94/64 Blood Pressure [Le ft Arm] Blood Pressure [Le ft Upper Arm] Pulse Oximetry 94 94 93 Oxygen Delivery Me thod Oxygen Flow Rate Fraction of Inspir ed Oxygen 03/05/24 04:45 03/05/24 05:00 03/05/24 05:02 Temperature Pulse Rate 71 74 69 Pulse Rate [Pulse Oximeter] Respiratory Rate Blood Pressure 90/44 L Blood Pressure [Le ft Arm] Blood Pressure [Le ft Upper Arm] Pulse Oximetry 95 93 94 Oxygen Delivery Me thod Oxygen Flow Rate Fraction of Inspir ed Oxygen 03/05/24 05:15 03/05/24 05:16 03/05/24 05:30 Temperature Pulse Rate 73 70 68 Pulse Rate [Pulse Oximeter] Respiratory Rate Blood Pressure 117/57 L Blood Pressure [Le ft Arm] Blood Pressure [Le ft Upper Arm] Pulse Oximetry 94 94 95 Oxygen Delivery Me thod Oxygen Flow Rate Fraction of Inspir ed Oxygen 03/05/24 05:31 03/05/24 05:32 03/05/24 05:45 Temperature Pulse Rate 70 69 73 Pulse Rate [Pulse Oximeter] Respiratory Rate Blood Pressure 112/66 Blood Pressure [Le ft Arm] Blood Pressure [Le ft Upper Arm] Pulse Oximetry 94 94 93 Oxygen Delivery Me thod Oxygen Flow Rate Fraction of Inspir ed Oxygen 03/05/24 05:46 03/05/24 05:47 03/05/24 06:00 Temperature Pulse Rate 72 70 78 Pulse Rate [Pulse Oximeter] Respiratory Rate Blood Pressure 98/63 Blood Pressure [Le ft Arm] Blood Pressure [Le ft Upper Arm] Pulse Oximetry 92 92 98 Oxygen Delivery Me thod Oxygen Flow Rate Fraction of Inspir ed Oxygen 03/05/24 06:01 03/05/24 06:02 03/05/24 06:02 Temperature 97 F L Pulse Rate 78 78 Pulse Rate [Pulse Oximeter] Respiratory Rate 18 Blood Pressure 139/74 139/74 Blood Pressure [Le ft Arm] Blood Pressure [Le ft Upper Arm] Pulse Oximetry 97 97 Oxygen Delivery Me thod High Flow Nasal Ca nnula Oxygen Flow Rate 25 Fraction of Inspir ed Oxygen 50 50 03/05/24 06:15 03/05/24 06:18 03/05/24 06:30 Temperature Pulse Rate 74 73 71 Pulse Rate [Pulse Oximeter] Respiratory Rate Blood Pressure 116/38 L Blood Pressure [Le ft Arm] Blood Pressure [Le ft Upper Arm] Pulse Oximetry 90 90 91 Oxygen Delivery Me thod Oxygen Flow Rate Fraction of Inspir ed Oxygen 03/05/24 07:16 03/05/24 07:38 03/05/24 07:46 Temperature 97.8 F Pulse Rate 72 74 72 Pulse Rate [Pulse Oximeter] Respiratory Rate 18 Blood Pressure 109/66 120/67 118/61 Blood Pressure [Le ft Arm] Blood Pressure [Le ft Upper Arm] Pulse Oximetry 92 94 91 Oxygen Delivery Me thod High Flow Nasal Ca nnula Oxygen Flow Rate 25 Fraction of Inspir ed Oxygen 03/05/24 08:01 03/05/24 08:16 03/05/24 08:30 Temperature 98.3 F Pulse Rate 71 69 70 Pulse Rate [Pulse Oximeter] Respiratory Rate 18 Blood Pressure 105/66 103/59 L Blood Pressure [Le ft Arm] Blood Pressure [Le ft Upper Arm] Pulse Oximetry 92 92 92 Oxygen Delivery Me thod High Flow Nasal Ca nnula Oxygen Flow Rate 30 Fraction of Inspir ed Oxygen 03/05/24 08:31 03/05/24 08:45 03/05/24 08:46 Temperature Pulse Rate 69 79 79 Pulse Rate [Pulse Oximeter] Respiratory Rate Blood Pressure 96/54 L 142/67 H Blood Pressure [Le ft Arm] Blood Pressure [Le ft Upper Arm] Pulse Oximetry 92 97 96 Oxygen Delivery Me thod Oxygen Flow Rate Fraction of Inspir ed Oxygen 03/05/24 09:00 03/05/24 09:02 03/05/24 09:15 Temperature Pulse Rate 82 81 83 Pulse Rate [Pulse Oximeter] Respiratory Rate Blood Pressure 132/86 Blood Pressure [Le ft Arm] Blood Pressure [Le ft Upper Arm] Pulse Oximetry 96 96 96 Oxygen Delivery Me thod Oxygen Flow Rate Fraction of Inspir ed Oxygen 03/05/24 09:17 03/05/24 09:30 03/05/24 09:31 Temperature Pulse Rate 80 77 76 Pulse Rate [Pulse Oximeter] Respiratory Rate Blood Pressure 133/74 131/69 Blood Pressure [Le ft Arm] Blood Pressure [Le ft Upper Arm] Pulse Oximetry 94 93 92 Oxygen Delivery Me thod Oxygen Flow Rate Fraction of Inspir ed Oxygen 03/05/24 09:47 03/05/24 09:49 03/05/24 09:54 Temperature 98.3 F Pulse Rate 81 Pulse Rate [Pulse Oximeter] Respiratory Rate Blood Pressure 118/99 H Blood Pressure [Le ft Arm] Blood Pressure [Le ft Upper Arm] Pulse Oximetry 94 Oxygen Delivery Me thod Oxygen Flow Rate 30 Fraction of Inspir ed Oxygen 50 03/05/24 10:17 03/05/24 10:31 03/05/24 10:47 Temperature Pulse Rate 79 76 76 Pulse Rate [Pulse Oximeter] Respiratory Rate Blood Pressure 124/72 135/84 123/68 Blood Pressure [Le ft Arm] Blood Pressure [Le ft Upper Arm] Pulse Oximetry 92 94 93 Oxygen Delivery Me thod Oxygen Flow Rate Fraction of Inspir ed Oxygen 03/05/24 11:01 03/05/24 11:17 03/05/24 11:31 Temperature Pulse Rate 81 75 77 Pulse Rate [Pulse Oximeter] Respiratory Rate Blood Pressure 129/60 130/76 121/65 Blood Pressure [Le ft Arm] Blood Pressure [Le ft Upper Arm] Pulse Oximetry 98 91 92 Oxygen Delivery Me thod Oxygen Flow Rate Fraction of Inspir ed Oxygen 03/05/24 11:46 03/05/24 12:01 03/05/24 12:02 Temperature 98.5 F Pulse Rate 76 76 76 Pulse Rate [Pulse Oximeter] Respiratory Rate 18 Blood Pressure 134/72 118/67 Blood Pressure [Le ft Arm] Blood Pressure [Le ft Upper Arm] Pulse Oximetry 90 92 91 Oxygen Delivery Me thod High Flow Nasal Ca nnula Oxygen Flow Rate 30 Fraction of Inspir ed Oxygen 03/05/24 12:15 03/05/24 12:16 03/05/24 12:20 Temperature Pulse Rate 73 79 Pulse Rate [Pulse Oximeter] Respiratory Rate Blood Pressure 138/77 Blood Pressure [Le ft Arm] Blood Pressure [Le ft Upper Arm] Pulse Oximetry 91 91 Oxygen Delivery Me thod Oxygen Flow Rate Fraction of Inspir ed Oxygen 40 03/05/24 12:30 03/05/24 12:32 03/05/24 12:45 Temperature 98.6 F Pulse Rate 75 73 70 Pulse Rate [Pulse Oximeter] Respiratory Rate 18 Blood Pressure 126/67 Blood Pressure [Le ft Arm] Blood Pressure [Le ft Upper Arm] Pulse Oximetry 94 93 93 Oxygen Delivery Me thod High Flow Nasal Ca nnula Oxygen Flow Rate 30 Fraction of Inspir ed Oxygen 03/05/24 12:46 03/05/24 13:00 03/05/24 13:01 Temperature Pulse Rate 76 77 78 Pulse Rate [Pulse Oximeter] Respiratory Rate Blood Pressure 125/70 127/72 Blood Pressure [Le ft Arm] Blood Pressure [Le ft Upper Arm] Pulse Oximetry 94 92 91 Oxygen Delivery Me thod Oxygen Flow Rate Fraction of Inspir ed Oxygen 03/05/24 13:15 03/05/24 13:16 03/05/24 13:30 Temperature Pulse Rate 69 74 71 Pulse Rate [Pulse Oximeter] Respiratory Rate Blood Pressure 123/59 L Blood Pressure [Le ft Arm] Blood Pressure [Le ft Upper Arm] Pulse Oximetry 93 93 93 Oxygen Delivery Me thod Oxygen Flow Rate Fraction of Inspir ed Oxygen 03/05/24 13:32 03/05/24 13:45 03/05/24 13:46 Temperature Pulse Rate 73 77 76 Pulse Rate [Pulse Oximeter] Respiratory Rate Blood Pressure 128/65 133/75 Blood Pressure [Le ft Arm] Blood Pressure [Le ft Upper Arm] Pulse Oximetry 91 92 92 Oxygen Delivery Me thod Oxygen Flow Rate Fraction of Inspir ed Oxygen 03/05/24 14:00 03/05/24 14:00 03/05/24 14:01 Temperature Pulse Rate 73 76 Pulse Rate [Pulse Oximeter] Respiratory Rate Blood Pressure 117/68 Blood Pressure [Le ft Arm] Blood Pressure [Le ft Upper Arm] Pulse Oximetry 91 93 Oxygen Delivery Me thod Oxygen Flow Rate Fraction of Inspir ed Oxygen 40 03/05/24 14:15 03/05/24 14:16 03/05/24 14:28 Temperature 98.1 F Pulse Rate 76 74 Pulse Rate [Pulse Oximeter] 77 Respiratory Rate 18 Blood Pressure 116/76 Blood Pressure [Le ft Arm] 146/79 H Blood Pressure [Le ft Upper Arm] Pulse Oximetry 91 93 96 Oxygen Delivery Me thod Room Air Oxygen Flow Rate Fraction of Inspir ed Oxygen Hospitalist - H&P: Result Labs Labs: Short CBC 03/04/24 Range/Units 18:04 WBC 11.70 H (4.50-11.00) K/uL Hgb 10.6 L (13.5-17.5) gm/dL Hct 33.9 L (37.0-53.0) % Plt Count 234 (140-440) K/uL BMP 03/04/24 18:04 Sodium 136 Potassium 4.4 Chloride 100 Carbon Dioxide 30 BUN 23 Creatinine 0.7 Glucose 166 H Calcium 8.9 ECG Attestation: I personally reviewed and interpreted this ECG as follows: ECG interpretation date: 03/05/24 Interpretation: no ischemic changes, low voltage Assessment and Plan Assessment and plan (1) Acute hypoxic respiratory failure: Problem comment: -patient was found influenza A positive. -patient presented with hypoxia that is acute as patient does not have any history of lung problems. -currently on high-flow nasal cannula -consult Respiratory therapy -started on Tamiflu Status: Acute (2) Influenza A: Problem comment: As above Status: Acute (3) Stroke: Problem comment: -stroke with right-sided weakness (May 2023) -still on rehab -ordered P.T./OT -no weight-bearing on right lower extremity Status: Acute (4) Afib: Problem comment: -on xarelto -resume xarelto Status: Acute (5) Chronic anticoagulation: Problem comment: -Hx of Afib + stroke Status: Acute (6) H/O total hip arthroplasty: Problem comment: -no weight-bearing on right lower extremity -on oral antibiotics for complications after he had fell down in needed revision surgery for his right hip in December 2023. First surgery was in June 2023. Status: Acute (7) Cholelithiasis: Problem comment: -Cholelithiasis without CT evidence of acute cholecystitis. Status: Acute (8) Lung nodule: Problem comment: -8 mm right lower lobe pulmonary nodule is also probably infectious or inflammatory in etiology. Recommend short interval follow-up CT in 6-12 months to assess stability or resolution, per Fleischner society guidelines. Status: Acute (9) Abnormal liver CT: Problem comment: -CT chest : Probable cirrhotic liver morphology. -ordered liver function -he will need liver workup as an outpatient Status: Acute Total Time Spent Total Time Spent: Time spent: Today I spent 75 minutes seeing the patient, discussing the patient with ER staff, reviewing Expanse and EPIC notes/diagnostics, discussing the care plan with our care time that includes social work, PT/OT, pharmacy, RT, penitentiary and documenting my impressions and plan in the medical record.
--- NOTE | 2024-03-05 18:43 | RESP.RT ---
Patient is on .40HFNC@30Lpm. Patient is able to use [employer] independently. Patient SATs on .40HFNC is 92%. Patient has had recent knee surgery and is currently not ambulatory.
[2024-03-05] MEDS: INSULIN ASPART 100 UNIT/ML SUBCUT (20:31)
[2024-03-05] MEDS: ATORVASTATIN CALCIUM 40 MG TABLET PO (20:32)
[2024-03-05] MEDS: SENNOSIDES 1 TAB TABLET PO (20:33)
[2024-03-05] MEDS: ACETAMINOPHEN 500 MG TABLET 1000 MG PO (20:33)
[2024-03-05] MEDS: SODIUM CHLORIDE 0.9 % (FLUSH) 10 ML SYRINGE 5 ML IVF (20:34)
[2024-03-05] MEDS: NYSTATIN POWDER 1 APPLIC TOPICAL (23:38)
[2024-03-06] VITALS (17 sets, daily range): BP systolic 116–136; BP diastolic 62–77; PULSE 55–74; RESP 16–22; TEMP 36.3–36.7; O2SAT 90–98
[2024-03-06 06:30] LABS: Hematocrit 30.6 % (37.0-53.0); Hemoglobin* 9.7 gm/dL (13.5-17.5); Mean Corpuscular HGB Conc 32 gm/dL (32-36); Mean Corpuscular Hemoglobin 28 pg (26-34); Mean Corpuscular Volume 88 fL (80-100); Platelet Count* 232 K/uL (140-440); Red Blood Count 3.49 m/uL (4.30-5.90); White Blood Count* 11.42 K/uL (4.50-11.00)
[2024-03-06] MEDS: OSELTAMIVIR PHOSPHATE 75 MG CAPSULE PO ×2 (06:32→18:12)
--- NOTE | 2024-03-06 06:38 | PC.NURSE ---
Shift note: Pt has been in bed throughout the shift. Noticeable right sided weakness related to stroke. Right leg is immobilized. Turn reposition Q2h though pt refused most of it. Patient is oriented with occasional confusion. At 0320 the hyflo machine started peeping after the inhalation fluid was changed. New machine pulled in placed. Patient takes pill crushed with applesauce. He has 2 BM this shift. Vitally stable.
[2024-03-06 06:58] LABS: Slide Review Reflex No
[2024-03-06 06:59] LABS: Albumin* 3.5 g/dL (3.3-5.0); Chloride* 103 mmol/L (96-114)
[2024-03-06 07:00] LABS: Potassium* 4.2 mmol/L (3.6-5.1); Sodium* 136 mmol/L (135-149)
[2024-03-06 07:02] LABS: Alkaline Phosphatase* 157 U/L (40-150); Anion Gap 3 mEq/L (7-15); Aspartate Amino Transferase* 20 U/L (12-35); Bilirubin Direct* 0.2 mg/dL (0.0-0.5); Bilirubin Total* 0.2 mg/dL (0.1-1.5); Blood Urea Nitrogen* 35 mg/dL (7-30); Carbon Dioxide* 30 mmol/L (20-32); Creatinine* 0.7 mg/dL (0.5-1.5); Est. Creatinine Clearance* 121.02; Estimated Glomerular Filt Rate 106 ml/min; Glucose* 262 mg/dL (60-115); Total Protein* 6.2 g/dL (6.0-8.3)
[2024-03-06 07:03] LABS: Alanine Aminotransferase* 26 U/L (4-50); Calcium* 8.8 mg/dL (8.4-10.6); Magnesium* 2.3 mg/dL (1.5-2.6)
[2024-03-06] MEDS: levETIRAcetam 500 MG TABLET 750 MG PO (09:20)
[2024-03-06] MEDS: OMEPRAZOLE 20 MG CAPSULE DR 40 MG PO (09:20)
[2024-03-06] MEDS: ASPIRIN 81 MG TAB.CHEW PO (09:20)
[2024-03-06] MEDS: SERTRALINE 50 MG TABLET PO (09:21)
[2024-03-06] MEDS: cephALEXin 500 MG CAPSULE PO ×2 (09:21→14:12)
[2024-03-06] MEDS: polyethylene glycoL 3350 17 GM PACK PO (09:21)
[2024-03-06] MEDS: RIVAROXABAN 10 MG TABLET PO (09:21)
[2024-03-06] MEDS: AMLODIPINE 5 MG TABLET PO (09:21)
[2024-03-06] MEDS: ACETAMINOPHEN 500 MG TABLET 1000 MG PO ×2 (09:21→14:12)
[2024-03-06] MEDS: NYSTATIN POWDER 1 APPLIC TOPICAL (09:22)
[2024-03-06] MEDS: SODIUM CHLORIDE 0.9 % (FLUSH) 10 ML SYRINGE 5 ML IVF (09:22)
[2024-03-06] MEDS: SENNOSIDES 1 TAB TABLET PO (09:22)
[2024-03-06] MEDS: INSULIN ASPART 100 UNIT/ML SUBCUT ×3 (09:23→18:11)
[2024-03-06] MEDS: INSULIN NPH 100 UNIT/ML 8 UNIT SUBCUT (09:25)
--- NOTE | 2024-03-06 09:33 | RESP.RT ---
Patient sitting up in bed, appears comfortable on HFNC, SaO2 92%, goal today to wean HFNC maintain SaO2 >90%. BBS clear, no wheeze or rhonchi noted.
--- NOTE | 2024-03-06 17:05 | PM.IMPN1 ---
Progress Note: A&P Assessment and plan (1) Acute hypoxic respiratory failure: Problem details: -influenza A positive. -patient presented with hypoxia that is acute as patient does not have any history of lung problems. 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 First surgery was in June 2023. Status: Chronic (5) Afib: Problem details: -good rate control Status: Chronic (6) Chronic anticoagulation: Problem details: -Hx of Afib + stroke -continue Xarelto Status: Chronic (7) Cholelithiasis: Problem details: -Cholelithiasis without CT evidence of acute cholecystitis. Status: Acute (8) Lung nodule: Problem details: -8 mm right lower lobe pulmonary nodule is also probably infectious or inflammatory in etiology. Recommend short interval follow-up CT in 6-12 months to assess stability or resolution, per Fleischner society guidelines. Status: Acute (9) Abnormal liver CT: Problem details: -CT chest : Probable cirrhotic liver morphology. -ordered liver function -he will need liver workup as an outpatient Status: Acute Time Spent With Patient Total time spent: Today I spent 35 minutes seeing the patient, reviewing Expanse and EPIC notes/diagnostics/labs, discussing the care plan with our care team that includes social work, PT/OT, pharmacy, RT, half-way and documenting my impressions and plan in the medical record. Subjective Time Seen by Provider: 10:43 Date Seen: 03/06/24 Interval history: Estevan says his breathing is a bit better today. He is less dyspneic. He noted that he likes the physical therapist here because he feels that he would improve with physical therapy at the skilled nursing, but does not think that he has any there. Exam Narrative: Exam Narrative: General: No acute distress. Awake, alert, oriented x3. No pallor. No jaundice. High-flow nasal cannula Oropharynx: Clear. Mucous membranes moist. Cardiovascular: Regular rate and rhythm. No murmurs, gallops, or rubs. Respiratory: Clear to auscultation bilaterally. No wheezes or crackles. Abdomen: Bowel sounds present. Soft, nondistended, nontender. Extremities: Chronic weakness of right upper and lower extremity noted. No lower extremity edema. Const: Vital Signs, click to edit/add: Vital Signs - 24 hr 03/05/24 17:27 03/05/24 17:30 03/05/24 19:00 Temperature Pulse Rate 82 Pulse Rate [Pulse Oximeter] Respiratory Rate Blood Pressure [Le ft Arm] Pulse Oximetry Oxygen Delivery Me thod Oxygen Flow Rate 30 Fraction of Inspir ed Oxygen 40 40 03/05/24 19:00 03/05/24 20:11 03/05/24 21:00 Temperature 98 F Pulse Rate Pulse Rate [Pulse Oximeter] 80 Respiratory Rate 18 18 Blood Pressure [Le ft Arm] 124/75 Pulse Oximetry 93 93 Oxygen Delivery Me thod Room Air Room Air Oxygen Flow Rate 30 30 Fraction of Inspir ed Oxygen 40 40 40 03/05/24 22:48 03/05/24 22:48 03/05/24 22:48 Temperature 98.1 F Pulse Rate Pulse Rate [Pulse Oximeter] 70 70 Respiratory Rate 18 18 Blood Pressure [Le ft Arm] 117/58 L Pulse Oximetry 95 Oxygen Delivery Me thod Room Air Oxygen Flow Rate 30 Fraction of Inspir ed Oxygen 40 40 03/05/24 23:00 03/06/24 01:00 03/06/24 02:34 Temperature Pulse Rate 73 Pulse Rate [Pulse Oximeter] Respiratory Rate Blood Pressure [Le ft Arm] Pulse Oximetry Oxygen Delivery Me thod Oxygen Flow Rate Fraction of Inspir ed Oxygen 40 40 03/06/24 02:34 03/06/24 04:46 03/06/24 07:00 Temperature 98.1 F 97.4 F L Pulse Rate Pulse Rate [Pulse Oximeter] 67 74 Respiratory Rate 18 16 Blood Pressure [Le ft Arm] 131/68 136/77 Pulse Oximetry 94 98 Oxygen Delivery Me thod Room Air High Flow Nasal Ca nnula Oxygen Flow Rate 30 Fraction of Inspir ed Oxygen 40 40 03/06/24 07:00 03/06/24 08:00 03/06/24 09:30 Temperature Pulse Rate Pulse Rate [Pulse Oximeter] 74 Respiratory Rate 20 20 Blood Pressure [Le ft Arm] Pulse Oximetry 92 Oxygen Delivery Me thod High Flow Nasal Ca nnula Oxygen Flow Rate 30 30 Fraction of Inspir ed Oxygen 40 40 03/06/24 11:00 03/06/24 11:00 03/06/24 11:07 Temperature 98.0 F Pulse Rate 65 Pulse Rate [Pulse Oximeter] 58 L Respiratory Rate 16 Blood Pressure [Le ft Arm] 116/62 Pulse Oximetry 93 Oxygen Delivery Me thod High Flow Nasal Ca nnula Oxygen Flow Rate 20 Fraction of Inspir ed Oxygen 30 30 03/06/24 11:45 03/06/24 13:00 03/06/24 14:37 Temperature Pulse Rate Pulse Rate [Pulse Oximeter] Respiratory Rate Blood Pressure [Le ft Arm] Pulse Oximetry Oxygen Delivery Me thod Oxygen Flow Rate 20 20 Fraction of Inspir ed Oxygen 40 30 25 03/06/24 14:41 03/06/24 15:00 03/06/24 15:00 Temperature 98.1 F Pulse Rate Pulse Rate [Pulse Oximeter] 61 61 Respiratory Rate 22 22 Blood Pressure [Le ft Arm] 121/74 Pulse Oximetry 90 Oxygen Delivery Me thod High Flow Nasal Ca nnula Oxygen Flow Rate 20 20 Fraction of Inspir ed Oxygen 25 25 03/06/24 15:00 03/06/24 15:08 03/06/24 16:00 Temperature Pulse Rate 55 L Pulse Rate [Pulse Oximeter] Respiratory Rate Blood Pressure [Le ft Arm] Pulse Oximetry 93 Oxygen Delivery Me thod Oxygen Flow Rate Fraction of Inspir ed Oxygen 25 Labs Labs: Laboratory Results - last 24 hr 03/06/24 05:47 WBC 11.42 H RBC 3.49 L Hgb 9.7 L Hct 30.6 L MCV 88 MCH 28 MCHC 32 Plt Count 232 Sodium 136 Potassium 4.2 Chloride 103 Carbon Dioxide 30 Anion Gap 3 L BUN 35 H Creatinine 0.7 Estimated Creat Clear 121.02 Estimated GFR 106 Glucose 262 H Calcium 8.8 Magnesium 2.3 Total Bilirubin 0.2 Direct Bilirubin 0.2 AST 20 ALT 26 Alkaline Phosphatase 157 H Total Protein 6.2 Albumin 3.5
--- NOTE | 2024-03-06 19:43 | PC.NURSE ---
End of shift-- Pt was pleasant and cooperative. Alert and oriented. VSS and pt was afebrile. SPO2 maintained >90% on high flow n.c. at 20L with 25% FiO2. He c/o only minimal pain today and declined more than scheduled Tylenol. Dressing to right hip is C/D/I. Deep wheezing noted throughout lungs this morning that appeared improved this afternoon. He denied nausea and ate 100% of 2 regular meals today without difficulty. BS 200, 323 and 247 today and pt was given insulin per sliding scale. He was up to the chair with ceiling lift today and tolerated it well. Incontinent of urine and bowel 3x this shift. Report to JAZIEL Myers. and all questions were answered.
--- NOTE | 2024-03-06 21:31 | P.CCN_ITS ---
Subjective Subjective Time Seen by Provider: 21:31 Date Seen: 03/06/24 Interval history: 59-year-old male admitted to the hospital with hypoxia and weakness from influenza. Tonight he is refusing his medications. I went to speak with him. He tells me his no concerns night but does not want to take his medications. His bedtime medications include acetaminophen, atorvastatin, levetiracetam, cephalexin. I tried to persuade him to take the levetiracetam but he refused. He did not appear agitated or delirious. He just told me he want to be left alone so he could go to sleep. He also told me he wanted to return to [address] [place] [address]. He also refused assessment of blood sugar. Assessment and Plan Assessment and plan (1) Medication refused: Status: Acute Total Time Spent Total Time Spent: Total time spent in chart review and discussion with patient and nurse is 20 minutes
--- NOTE | 2024-03-06 22:17 | PC.NURSE ---
Patient refusing ADL cares, medications, and blood glucose checks this evening. Patient also refusing supper. Nurse provided education on importance on taking medications and the possibility of skin breakdown if pads go unchanged (patient is incontinent of B&B). Patient responded Well that will be my problem. Nurse called primary contact, Lor, patients sister to update. Lor states this is not new for patient. When Estevan gets tired he can behave this way. Lor said to non-administer patients medications and to reproach later after patient has gotten some sleep about changing pad. Sister acknowledges risks.
[2024-03-07] VITALS: O2SAT 93
[2024-03-07 02:00] VITALS: O2SAT 93
--- NOTE | 2024-03-07 05:08 | PC.NURSE ---
Addendum entered by Louis Duarte RN 03/07/24 06:54: At 0630, pt accepted to be changed. He had large BM. Dressing atthe right lateral hip changed. Pt transferred to the recliner using ceiling lift. Original Note: Shift note: Pt refused treatment and care throughout the shift. At first, he refused to be changed, then blood sugar check and medication. HE state that he has taking enough medications for the day. MD notified and and had a talk with patient but he insisted that he is not taking the medications. Hyflo machine was discontinued at 0330 due to uncontrol alarm. Patient has been able maintain O2 above 9%. Denied any pain.
[2024-03-07 07:20] VITALS: PULSE 59
[2024-03-07] MEDS: INSULIN ASPART 100 UNIT/ML SUBCUT ×2 (07:44→12:33)
[2024-03-07 08:00] VITALS: BP 129/75; PULSE 60; RESP 22; TEMP 36.6; O2SAT 92
[2024-03-07] MEDS: ASPIRIN 81 MG TAB.CHEW PO (09:11)
[2024-03-07] MEDS: cephALEXin 500 MG CAPSULE PO (09:11)
[2024-03-07] MEDS: SERTRALINE 50 MG TABLET PO (09:11)
[2024-03-07] MEDS: RIVAROXABAN 10 MG TABLET PO (09:11)
[2024-03-07] MEDS: ACETAMINOPHEN 500 MG TABLET 1000 MG PO (09:11)
[2024-03-07] MEDS: SENNOSIDES 1 TAB TABLET PO (09:11)
[2024-03-07] MEDS: levETIRAcetam 500 MG TABLET 750 MG PO (09:11)
[2024-03-07] MEDS: OMEPRAZOLE 20 MG CAPSULE DR 40 MG PO (09:11)
[2024-03-07] MEDS: AMLODIPINE 5 MG TABLET PO (09:11)
[2024-03-07] MEDS: SODIUM CHLORIDE 0.9 % (FLUSH) 10 ML SYRINGE 5 ML IVF (09:12)
[2024-03-07] MEDS: polyethylene glycoL 3350 17 GM PACK PO (09:12)
[2024-03-07] MEDS: NYSTATIN POWDER 1 APPLIC TOPICAL (09:26)
[2024-03-07] MEDS: INSULIN NPH 100 UNIT/ML 8 UNIT SUBCUT (09:27)
--- NOTE | 2024-03-07 12:10 | PM.DS1 ---
DS: Providers Provider Time Seen by Provider: 09:49 Date Seen: 03/07/24 Date of admission: 03/05/24 14:21 Primary care physician: William Edwards MD Admitting Clinician: Dania Aguilar MD Consults: 03/05/24 15:08 Consult to Respiratory Therapy [CONS] Routine Comment: Reason(s) for RT Consult:: Consult 03/05/24 15:55 Consult to Physical Therapy [CONS] Routine Comment: Reason(s) for PT Consult:: Evaluate and Treat Any Restrictions?:: Non Wt Bearing Comment: has Rt hip revision surgery, no weight bearing on the Rt LE 03/05/24 15:57 Consult to Occupational Therapy [CONS] Routine Comment: Reason(s) for OT Consult:: Evaluate and Treat Any Restrictions?:: Non Wt Bearing Comment: has Rt hip revision surgery, no weight bearing on the Rt LE Attending Physician on discharge: Marie Bui MD Date of Discharge: 03/07/24 DS: Diagnosis Discharge Diagnosis (1) Acute hypoxic respiratory failure: Status: Acute Problem details: -influenza A positive. -patient presented with hypoxia that is acute as patient does not have any history of lung problems. -weaned off HiFlow NC -continue Tamiflu as outpatient, total of 5 days, GFR reviewed, no need for renal adjusted dose. (2) Influenza A: Status: Acute Problem details: As above (3) Stroke: Status: Chronic Problem details: -stroke with right-sided weakness (May 2023) -still on rehab -ordered P.T./OT -no weight-bearing on right lower extremity (4) H/O total hip arthroplasty: Status: Chronic Problem details: -no weight-bearing on right lower extremity -on oral antibiotics (cefadroxil) for complications after he had fell down in needed revision surgery for his right hip in December 2023. First surgery was in June 2023. (5) Afib: Status: Chronic Problem details: -good rate control (6) Chronic anticoagulation: Status: Chronic Problem details: -Hx of Afib + stroke -continue Xarelto (7) Cholelithiasis: Status: Acute Problem details: -Cholelithiasis without CT evidence of acute cholecystitis. (8) Lung nodule: Status: Acute Problem details: -8 mm right lower lobe pulmonary nodule is also probably infectious or inflammatory in etiology. Recommend short interval follow-up CT in 6-12 months to assess stability or resolution, per Fleischner society guidelines. (9) Abnormal liver CT: Status: Acute Problem details: -CT chest : Probable cirrhotic liver morphology. -ordered liver function -he will need liver workup as an outpatient (10) Medication refused: Status: Acute Problem details: - due to confusion from h/o stroke, he is suspicious of medications periodically. His sister, Annamaria, notes that getting a different nurse to administer medications can be helpful. DS: Summary Hospital Course Hospital Course: Note to PCP: He will need follow-up CT for assessment of pulmonary nodule and workup for abnormal liver CT, probable cirrhotic liver morphology, please see above for more details. Per H&P: Estevan Lester is a 59 year old male Who presents from [facility] facility w/ PMHx of stroke with right-sided weakness (May 2023), afib on xarelto, upper GIB, Hx of Rt hip total arthroplasty that got a revision Sx s/p a fall in 2023, who presents with generalized malaise and SOB/hypoxia. O2 sat on presentation was in the high 80s and was placed on high-flow nasal cannula at the ED. At the ED, patient was hemodynamically stable though hypoxic. Flu A test came back +ve. CT chest showed scattered tree-in-bud nodularity in the right lower lobe, likely infectious or inflammatory bronchiolitis. patient has some cognitive issues after his massive stroke, his sister was there helping with history and she mentioned that he does not have any history of heart or pulmonary disease. He does not use oxygen at home. patient was admitted for acute hypoxic respiratory failure treatment. Patient remained on high-flow which was able to be decreased yesterday and then completely weaned off today. He is back to his usual self and is discharged back to [facility] today in improved condition. Time Spent with Patient Time attestation: Total time spent providing and/or coordinating discharge services: 40 minutes which includes a conversation with the patient and his sister as well as coordinating discharge with staff and [address] [place] [address]. Exam Narrative: Exam Narrative: General: No acute distress. Awake, alert, oriented. No pallor. No jaundice. Satting 97-98% on room air. Oropharynx: Clear. Mucous membranes moist. Cardiovascular: Regular rate and rhythm. No murmurs, gallops, or rubs. Respiratory: Clear to auscultation bilaterally. No wheezes or crackles. Abdomen: Bowel sounds present. Soft, nondistended, nontender. Extremities: Chronic weakness of right upper and lower extremity noted. No lower extremity edema. Const: Vital Signs, click to edit/add: Vital Signs - 24 hr 03/06/24 13:00 03/06/24 14:37 03/06/24 14:41 Temperature Pulse Rate Pulse Rate [Pulse Oximeter] Respiratory Rate Blood Pressure [Le ft Arm] Pulse Oximetry Oxygen Delivery Me thod Oxygen Flow Rate 20 20 Fraction of Inspir ed Oxygen 30 25 25 03/06/24 15:00 03/06/24 15:00 03/06/24 15:00 Temperature 98.1 F Pulse Rate 55 L Pulse Rate [Pulse Oximeter] 61 61 Respiratory Rate 22 22 Blood Pressure [Le ft Arm] 121/74 Pulse Oximetry 90 Oxygen Delivery Me thod High Flow Nasal Ca nnula Oxygen Flow Rate 20 Fraction of Inspir ed Oxygen 25 03/06/24 15:08 03/06/24 16:00 03/06/24 18:00 Temperature Pulse Rate Pulse Rate [Pulse Oximeter] Respiratory Rate Blood Pressure [Le ft Arm] Pulse Oximetry 93 Oxygen Delivery Me thod Oxygen Flow Rate Fraction of Inspir ed Oxygen 25 25 03/06/24 19:00 03/06/24 19:46 03/06/24 22:00 Temperature 97.9 F Pulse Rate Pulse Rate [Pulse Oximeter] 63 Respiratory Rate 22 Blood Pressure [Le ft Arm] 123/71 Pulse Oximetry 93 Oxygen Delivery Me thod High Flow Nasal Ca nnula Oxygen Flow Rate 20 Fraction of Inspir ed Oxygen 25 25 25 03/06/24 22:26 03/06/24 22:27 03/06/24 22:27 Temperature Pulse Rate 63 Pulse Rate [Pulse Oximeter] 63 63 Respiratory Rate 22 22 Blood Pressure [Le ft Arm] Pulse Oximetry 94 Oxygen Delivery Me thod High Flow Nasal Ca nnula Oxygen Flow Rate 20 Fraction of Inspir ed Oxygen 25 03/07/24 00:00 03/07/24 02:00 03/07/24 07:20 Temperature Pulse Rate 59 L Pulse Rate [Pulse Oximeter] Respiratory Rate Blood Pressure [Le ft Arm] Pulse Oximetry Oxygen Delivery Me thod Oxygen Flow Rate Fraction of Inspir ed Oxygen 25 25 03/07/24 08:00 Temperature 98 F Pulse Rate Pulse Rate [Pulse Oximeter] 60 Respiratory Rate 22 Blood Pressure [Le ft Arm] 129/75 Pulse Oximetry 92 Oxygen Delivery Me thod Room Air Oxygen Flow Rate Fraction of Inspir ed Oxygen DS: Data Data Completed and Pending Completed studies during hospitalization: Ordering Physician: Asad Howard M.D. Date of Service: 03/04/24 Procedure(s): XR chest 1V portable Accession Number(s): [id number] cc: Asad Howard M.D.; William Edwards M.D.~ For Patients: As a result of the Cures Act, medical imaging exams and procedure reports are released immediately into your electronic medical record. You may view this report before your referring provider. If you have questions, please contact your health care provider. INDICATION: Hypoxia. TECHNIQUE: Chest 1 views. COMPARISON: None. FINDINGS/IMPRESSION: No focal consolidation, effusion or pneumothorax. Cardiac size is within normal limit without pulmonary edema. Dictated by Cisco Aggarwal MD @ 03/04/2024 6:49:49 PM (Electronically Signed) Ordering Physician: Asad Howard M.D. Date of Service: 03/04/24 Procedure(s): CT angio chest PE protocol Accession Number(s): [id number] cc: Asad Howard M.D.; William Edwards M.D.~ ADDENDUM INDICATION: Dyspnea. Chest pain. TECHNIQUE: Multiplanar CT pulmonary angiogram was performed after the administration of 95 mL of Isovue 370 intravenous contrast. COMPARISON: Chest radiograph 03/04/2024. FINDINGS: Lower neck: The visualized thyroid is unremarkable. Cardiovascular: Contrast opacification of the pulmonary arterial tree is adequate. Heart size is normal. Thoracic aorta and pulmonary artery are normal in caliber. Mild atherosclerotic calcifications of the aortic arch. Dense coronary arterial calcifications. No pulmonary embolus. Mediastinum and lymph nodes: Unremarkable. No pathologic mediastinal or hilar lymphadenopathy by size criteria. Lungs: No focal consolidation. There is tree-in-bud nodularity involving the right lower lobe. There may be a 8 mm right lower lobe pulmonary nodule (5:107). Linear bandlike opacification of the lung bases bilaterally, likely subsegmental atelectasis and/or scarring. Airways: The trachea remains patent and midline. Mild diffuse peribronchial wall thickening. Pleura: No pleural effusions or pneumothorax Chest wall: Unremarkable. Prominent axillary lymph nodes that do not meet size criteria for lymphadenopathy. Bones: No acute osseous abnormalities. Mild degenerative changes of the thoracic spine. Upper abdomen: Cholelithiasis. Probable micronodular contour to the hepatic border. No acute findings in the visualized upper abdomen. No reflux of contrast material into the IVC. IMPRESSION: 1. No pulmonary embolus. No CT evidence of right heart strain. 2. Scattered tree-in-bud nodularity in the right lower lobe, likely infectious or inflammatory bronchiolitis. The 8 mm right lower lobe pulmonary nodule is also probably infectious or inflammatory in etiology. Recommend short interval follow-up CT in 6-12 months to assess stability or resolution, per Fleischner society guidelines. 3. Cholelithiasis without CT evidence of acute cholecystitis. 4. Probable cirrhotic liver morphology. Please note that all CT scans at this facility use dose modulation, iterative reconstruction, and/or weight-based dosing when appropriate to reduce radiation dose to as low as reasonably achievable. Dictated by Cameron Donnelly MD @ 03/04/2024 8:10:56 PM ----- ADDENDUM ----- Addendum: TECHNIQUE: Additionally, MIP reconstructions were performed. Dictated by Cameron Donnelly MD @ Mar 04 2024 9:02PM (Electronically Signed) For Patients: As a result of the Cures Act, medical imaging exams and procedure reports are released immediately into your electronic medical record. You may view this report before your referring provider. If you have questions, please contact your health care provider. INDICATION: Dyspnea. Chest pain. TECHNIQUE: Multiplanar CT pulmonary angiogram was performed after the administration of 95 mL of Isovue 370 intravenous contrast. COMPARISON: Chest radiograph 03/04/2024. FINDINGS: Lower neck: The visualized thyroid is unremarkable. Cardiovascular: Contrast opacification of the pulmonary arterial tree is adequate. Heart size is normal. Thoracic aorta and pulmonary artery are normal in caliber. Mild atherosclerotic calcifications of the aortic arch. Dense coronary arterial calcifications. No pulmonary embolus. Mediastinum and lymph nodes: Unremarkable. No pathologic mediastinal or hilar lymphadenopathy by size criteria. Lungs: No focal consolidation. There is tree-in-bud nodularity involving the right lower lobe. There may be a 8 mm right lower lobe pulmonary nodule (5:107). Linear bandlike opacification of the lung bases bilaterally, likely subsegmental atelectasis and/or scarring. Airways: The trachea remains patent and midline. Mild diffuse peribronchial wall thickening. Pleura: No pleural effusions or pneumothorax Chest wall: Unremarkable. Prominent axillary lymph nodes that do not meet size criteria for lymphadenopathy. Bones: No acute osseous abnormalities. Mild degenerative changes of the thoracic spine. Upper abdomen: Cholelithiasis. Probable micronodular contour to the hepatic border. No acute findings in the visualized upper abdomen. No reflux of contrast material into the IVC. IMPRESSION: 1. No pulmonary embolus. No CT evidence of right heart strain. 2. Scattered tree-in-bud nodularity in the right lower lobe, likely infectious or inflammatory bronchiolitis. The 8 mm right lower lobe pulmonary nodule is also probably infectious or inflammatory in etiology. Recommend short interval follow-up CT in 6-12 months to assess stability or resolution, per Fleischner society guidelines. 3. Cholelithiasis without CT evidence of acute cholecystitis. 4. Probable cirrhotic liver morphology. Please note that all CT scans at this facility use dose modulation, iterative reconstruction, and/or weight-based dosing when appropriate to reduce radiation dose to as low as reasonably achievable. Dictated by Cameron Donnelly MD @ 03/04/2024 8:10:56 PM (Electronically Signed) Discharge Plan Discharge Disposition: [facility] Date of Admission: 03/05/24 14:21 Attending Provider on Discharge: Marie Bui Primary Care Provider: William Edwards Condition: Unchanged Discharge Medications: New oseltamivir 75 mg Capsule 75 mg PO Q12H 3 Days Qty: 7 0RF Continued aspirin 81 mg tablet,chewable 1 tab PO DAILY Xarelto 10 mg tablet 10 mg PO DAILY oxycodone 5 mg tablet 5 - 10 mg PO Q4H PRN (Reason: pain) atorvastatin 40 mg tablet 40 mg PO HS amlodipine 5 mg tablet 5 mg PO DAILY Novolin N FlexPen 100 unit/mL (3 mL) insulin pen 8 unit subcut QAM pantoprazole 40 mg tablet,delayed release (DR/EC) 40 mg PO DAILY sertraline 50 mg tablet 50 mg PO DAILY levetiracetam 100 mg/mL solution 750 mg PO BID cefadroxil 500 mg capsule 500 mg PO BID acetaminophen 500 mg tablet 1,000 mg PO TID calcium citrate-vitamin D3 315 mg-6.25 mcg (250 unit) tablet 1 tab PO BID carboxymethylcellulose sodium [Lubricant Eye Drops] 0.5 % dropperette 2 drp ophthalmic (eye) QID PRN nystatin 100,000 unit/gram cream 1 applic topical BID sennosides [senna] 8.6 mg tablet 8.6 mg PO BID polyethylene glycol 3350 17 gram/dose powder 17 g PO DAILY Discharge Orders: Discharge Order (Routine); Ordered 03/07/24 Ordered By: Marie Bui Activity Level: Other Activity Detail: Continue previous restrictions Discharge Diet: Regular Follow Up Appointments: William Edwards MD [Primary Care Provider] - Forms: [facility] Info Instructions Admit to: SNF Discharge Potential: Poor Length of Stay: >90 days Can use facility standing orders?: Yes Code Status: Full Code Rehab Potential: Poor Oxygen: No Urinary Catheter: No Orders are good >30 days: No Signature: Marie Bui MD
[2024-03-07 13:26] VITALS: BP 112/95; PULSE 66; RESP 18; TEMP 36.9; O2SAT 90
--- NOTE | 2024-03-07 14:01 | PC.NURSE ---
[facility] updated this AM around 9am that patient will be returning to [facility]. Spoke with Julianne (coordinator) [phone] cell. Papers faxed when discharge complete.
--- NOTE | 2024-03-07 14:08 | PC.NURSE ---
Shift Summary: Patient pleasant and cooperative. Up with ceiling lift and two assist, brace on during all transfers. Vitals stable and WNL, able to maintain o2 sat >90% on RA. Denies pain or SOB. IV removed with catheter intact. Patient incontinent x2, changed in bed. Unable to sign belongings and discharge paperwork, allowed staff to sign for him after explaining discharge instructions/changes in medications. [facility]. Unable to contact Julianne RN coordinator, called nursing floor and was able to talk to ZANA albright who then gave phone to RN working on floor, brief nurse to nurse report given, informed staff to call back hospital at any time with questions. Patient discharged @ 1359 via EMS.
== END 2024-03-07 13:59 ==
LOC: ED 03-05 10:35 → MEDSURG 03-05 14:22
PROVIDERS: Emergency Medicine Emergency Medical Services; Student in an Organized Health Care Education/Training Program; Admitting Provider Family Medicine; Emergency Provider Internal Medicine; PCP Family Medicine; Visit Provider Family Medicine
DX: J10.1 Influenza due to other identified influenza virus with other respiratory manifestations (principal); J96.01 Acute respiratory failure with hypoxia; R93.2 Abnormal findings on diagnostic imaging of liver and biliary tract; I69.311 Memory deficit following cerebral infarction; I69.351 Hemiplegia and hemiparesis following cerebral infarction affecting right dominant side; I48.91 Unspecified atrial fibrillation; Z79.01 Long term (current) use of anticoagulants; Z96.649 Presence of unspecified artificial hip joint; K80.20 Calculus of gallbladder without cholecystitis without obstruction; R91.1 Solitary pulmonary nodule; Z53.20 Procedure and treatment not carried out because of patient's decision for unspecified reasons
CPT/HCPCS: 36415; 71045; 71275; 80048; 80076; 82803; 82962; 83735; 85025; 85027; 85379; 87081; 87631; 94664; 94761; 96374; 97110; 97161; 97165; 97530; 99284; 99285; G0378; A9270; J2919; Q9967

== ENCOUNTER 2024-03-07 14:03 | Outpatient (CLI) | payer OTHER, SELFPAY | END 2024-03-07 14:04 | disposition home or self-care (01) | LOC: AMB 03-19 00:42 | PROVIDERS: PCP Family Medicine; Visit Provider Student in an Organized Health Care Education/Training Program | DX: J96.01 Acute respiratory failure with hypoxia (principal); J10.1 Influenza due to other identified influenza virus with other respiratory manifestations; I63.9 Cerebral infarction, unspecified; R91.1 Solitary pulmonary nodule | CPT/HCPCS: A0425; A0428 ==

== ENCOUNTER 2024-06-12 06:33 | Outpatient (CLI) | payer OTHER, SELFPAY | END 2024-06-12 06:34 | disposition home or self-care (01) | LOC: AMB 06-14 10:25 | PROVIDERS: PCP Family Medicine; Visit Provider Family Medicine | DX: R50.9 Fever, unspecified (principal); R11.2 Nausea with vomiting, unspecified; R05.9 Cough, unspecified | CPT/HCPCS: A0425; A0427; A0428 ==

== ENCOUNTER 2024-06-12 07:15 | Emergency (ER) | payer OTHER, SELFPAY ==
[2024-06-12] VITALS (14 sets, daily range): BP systolic 87–109; BP diastolic 52–71; PULSE 65–74; RESP 12–20; TEMP 37.3; O2SAT 90–95
--- OUTSIDE RECORDS SUMMARY | 2024-06-12 07:19 | XMS_ITS | Encounter Summary ---
Author Organization [facility] Address [address] [place] [address] Care Team Providers Care Rubber Tester Name Role Phone Elsewhere, Pcp Primary Care Provider Unavailabl e Encounter Details Date Type Department Care Team (Late st Contact Info) Description 04/23/2024 Orders Only Department of Radiology, [facility], in [place], [place] [address] [place] [phone] Radha Ojeda P.A.-C., M.S. [address] [place] [address] Social History Tobacco Use Types Packs/Day Years Used Date Smoking Tobacco: Never Passive Smoke Exposure: Never Smokeless Tobacco: Never Alcohol Use Standard Drinks/Week Comments Never 2 (1 standard drink = 0.6 oz pur e alcohol) [facility] Utilities Answer Date Recorded In the past 12 months has [facility] [employer], gas, oil, or water [employer] threatened to shut off services in your [...] your living situation today? 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 [address] [place] [phone] 07/15/2024 11:45 AM CDT Office Visit Department of Orthopedic Surgery in [place], [place] [address] [place] [phone] Vel Vinson M.D., M.B.A. [address] [place] [phone] 08/10/2024 12:45 PM CDT Clinical Communication Virtual Review in [place], [place] [address] [place] [address] 08/12/2024 9:00 AM CDT Appointment Department of Radiology, [facility], in [place], [place] [address] [place] [phone] Fantasma Butt M.D. [address] [place] [phone] Discharge Disposition: Home or Self Care 08/12/2024 11:00 AM CDT Office Visit Department of Radiology, [facility], in [place], [place] [address] [place] [phone] Radha Ojeda P.A.-C., M.S. [address] [place] [phone] documented as of this encounter Visit Diagnoses Not on filedocumented in this encounter Additional Health Concerns Infection Onset Date Last Indicated Resolved Time COVID19 Pending 05/03/2024 05/03/2024 05/03/2024 7 :28 PM CDT documented as of this encounter Care Teams Rubber Tester Relationship Specialty Start Date End Date Elsewhere, Pcp PCP - General Internal Medicine 10/03/23 documented as of this encounter
--- OUTSIDE RECORDS SUMMARY | 2024-06-12 07:19 | XMS_ITS | Encounter Summary ---
Author Organization [facility] Address [address] [place] [address] Care Team Providers Care Clerk Of Superior Court Name Role Phone Elsewhere, Pcp Primary Care Provider Unavailabl e Reason for Referral * Outpatient (Routine) - Authorized Specialty Diagnoses / Procedures Referred By Tammi basilio Referred To Contact Diagnoses Occlusion Carotid Artery Left Stenosis Carotid Artery Right Procedures US Carotid Bilateral Fantasma Butt M.D. 200 [place] [address] Phone: tel: fax: [facility] Referral ID Status Reason Start Date Expiration Date V isits Requested Visits Authorized [id number] Authorized 05/12/2024 08/12/2025 1 1 * Outpatient (Routine) - Authorized Specialty Diagnoses / Procedures Referred By Tammi basilio Referred To Contact Radiology Fantasma Butt M.D. [address] [place] [phone] Phone: tel: fax: Radha Ojeda P.A.-Venu., M.S. [address] [place] [phone] Phone: tel: fax: Referral ID Status Reason Start Date Expiration Date V isits Requested Visits Authorized [id number] Authorized 05/12/2024 11/11/2025 1 1 Scheduling Instructions JONO Rojas - when dr. Butt available. To be scheduled same day as imaging study. Encounter Details Date Type Department Care Team (Late st Contact Info) Description 05/12/2024 Orders Only Department of Neurologic Surgery in [place], [place] [address] [place] [address] Rosalie Guerra R.N., CNRN [address] [place] [address] Occlusion Carotid Artery Left (Primary Dx); Stenosis Carotid Artery Right Social History Tobacco Use Types Packs/Day Years Used Date Smoking Tobacco: Never Passive Smoke Exposure: Never Smokeless Tobacco: Never Alcohol Use Standard Drinks/Week Comments Never 2 (1 standard drink = 0.6 oz pur e alcohol) [facility] Utilities Answer Date Recorded In the past 12 months has [facility] [employer], gas, oil, or water [employer] threatened to shut off services in your [...] your living situation today? 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 [address] [place] [phone] 07/15/2024 11:45 AM CDT Office Visit Department of Orthopedic Surgery in [place], [place] [address] [place] [phone] Vel Vinson M.D., M.B.A. [address] [place] [phone] 08/10/2024 12:45 PM CDT Clinical Communication Virtual Review in [place], [place] [address] [place] [phone] 08/12/2024 9:00 AM CDT Appointment Department of Radiology, [facility], in [place], [place] [address] [place] [phone] Fantamsa Butt M.D. [address] [place] [phone] Discharge Disposition: Home or Self Care 08/12/2024 11:00 AM CDT Office Visit Department of Radiology, [facility], in [place], [place] [address] [place] [phone] Radha Ojeda P.A.-C., M.S. [address] [place] [phone] Scheduled Orders Name Type Priority Associated Diagnoses Orde r Schedule US Carotid Bilateral Imaging Occlusion Carotid Artery Left Stenosis Carotid Artery Right Expected: 08/12/2024 (Approximate), Expires: 05/12/2025 Scheduled Referrals Name Type Priority Associated Diagnoses Order Schedule Interventional Radiology office visit (clinic) Outpatient Referral Routine Expected: 08/12/2024 (Approximate), Expires: 08/12/2025 documented as of this encounter Visit Diagnoses Diagnosis Occlusion Carotid Artery Left- Primary Stenosis Carotid Artery Right documented in this encounter Care Teams Clerk Of Superior Court Relationship Specialty Start Date End Date Elsewhere, Pcp PCP - General Internal Medicine 10/03/23 documented as of this encounter
--- OUTSIDE RECORDS SUMMARY | 2024-06-12 07:19 | XMS_ITS | Encounter Summary ---
Author Organization [facility] Address [address] [place] [address] Care Team Providers Care Alcohol Rubber Name Role Phone Elsewhere, Pcp Primary Care Provider Unavailabl e Encounter Details Date Type Department Care Team (Late st Contact Info) Description 04/23/2024 Clinical Communication Department of Radiology in [place], [place] [address] [place] [phone] Fantasma Butt M.D. [address] [place] [address] Social History Tobacco Use Types Packs/Day Years Used Date Smoking Tobacco: Never Passive Smoke Exposure: Never Smokeless Tobacco: Never Alcohol Use Standard Drinks/Week Comments Never 2 (1 standard drink = 0.6 oz pur e alcohol) [facility] Utilities Answer Date Recorded In the past 12 months has [facility] [employer], gas, oil, or water [employer] threatened to shut off services in your [...] a [facility] place to live 01/15/2024 Sex and Gender Information Value Date Recorded Sex Assigned at Male 07/26/2022 1:30 PM CDT 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 We also still need the pharmacy to which they would like the Brilinta prescription sent to. Medication recommendations left on voicemail: - continue baby aspirin - Hold Xarelto starting on 04/29 - Hold NPH morning of 05/03 - Start Brilinta on 05/02. Taking two tablets 05/02 evening; and taking one tablet 05/03 prior to coming to hospital documented in this encounter Plan of Treatment Upcoming Encounters Date Type Department Care Team (Latest Contact Info) Description 07/13/2024 10:00 AM CDT Clinical Communication Virtual Review in [address] [phone] 07/15/2024 10:30 AM CDT Appointment Department of Radiology, [facility], in [address] [phone] Xavi Hicks M.D. [address] [place] [phone] 07/15/2024 11:45 AM CDT Office Visit Department of Orthopedic Surgery in [address] [phone] Vel Vinson M.D., M.B.A. [address] [place] [phone] 08/10/2024 12:45 PM CDT Clinical Communication Virtual Review in [address] [phone] 08/12/2024 9:00 AM CDT Appointment Department of Radiology, [facility], in [address] [phone] Fantasma Butt M.D. [address] [place] [phone] Discharge Disposition: Home or Self Care 08/12/2024 11:00 AM CDT Office Visit Department of Radiology, [facility], in [place], [place] [address] [place] [address] Radha Ojeda P.A.-C., M.S. [address] [place] [address] documented as of this encounter Visit Diagnoses Not on filedocumented in this encounter Additional Health Concerns Infection Onset Date Last Indicated Resolved Time COVID19 Pending 05/03/2024 05/03/2024 05/03/2024 7 :28 PM CDT documented as of this encounter Care Teams Alcohol Rubber Relationship Specialty Start Date End Date Elsewhere, Pcp PCP - General Internal Medicine 10/03/23 documented as of this encounter
--- OUTSIDE RECORDS SUMMARY | 2024-06-12 07:19 | XMS_ITS | Encounter Summary ---
Author Organization [facility] Address [address] [place] [address] Care Team Providers Care Manager Policy Name Role Phone Elsewhere, Pcp Primary Care Provider Unavailabl e Reason for Visit * Auth/Cert (Routine) Specialty Diagnoses / Procedures Referred By Tammi t Referred To Contact Diagnoses Stenosis Carotid Artery Bilateral Stenosis Carotid Artery Left Procedures IR CEREBRAL ARTERY ANGIOGRAM Referral ID Status Reason Start Date Expiration Date Visits Re quested Visits Authorized [id number] 1 1 Encounter Details Date Type Department Care Team (Latest Contact Info) Description 05/03/2024 6:56 AM CDT - 05/04/2024 10:51 AM CDT Hospital Encounter [facility], [facility], [facility], Ninth Floor [address] [place] [phone] Radha Ojeda P.A.-C., M.S. [address] [place] [phone] Hal Nguyen M.D., Ph.D. [address] [place] [address] [phone] Fantasma Butt M.D. [address] [place] [address] [phone] Stenosis Carotid Artery Bilateral Discharge Disposition: Shelter Facility Social History Tobacco Use Types Packs/Day [...] [facility] today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 - 05/04/2024 6:10 AM CDT DISCHARGE SUMMARY BRIEF OVERVIEW Hospital: [facility] Discharge Provider: Radha Ojeda P.A.-C. Primary Team: [facility] Neurologic Surgery [facility] Primary Care Providers: Elsewhere, Pcp (General) No address on file Primary Care Provider Phone Number: None Primary Care Provider Fax Number: None Other Providers: None Admission Date: 05/03/2024 Discharge Date: 05/04/2024 PRINCIPAL DIAGNOSIS Stenosis Carotid Artery Left SECONDARY DIAGNOSES Principal Problem: Stenosis Carotid Artery Left Resolved Problems: * No resolved hospital problems. * DISCHARGE DISPOSITION Shelter Facility [3] ACTIVE ISSUES REQUIRING FOLLOW UP OUTPATIENT FOLLOW UP Scheduled Appointments 07/13/2024 10:00 AM RST ORS SPM INTAKE VISIT Admitting/Central Scheduling 07/15/2024 10:30 AM DX GABINO 14 RM 345 Radiology 07/15/2024 11:45 AM Vel Vinson M.D., M.B.A. Orthopedic Surgery For appointment details refer to your Patient Appointment Guide. TEST RESULTS PENDING AT DISCHARGE Pending Labs None DETAILS OF HOSPITAL STAY REASON FOR ADMISSION Stenosis Carotid Artery Bilateral Stenosis Carotid Artery Left HOSPITAL COURSE On the day of admission, Estevan Lester was taken to the operative room by Dr. Butt for the procedure listed above. The intraoperative as well as the immediate postoperative course were uncomplicated. He was transferred from the PACU to the general neurosurgical floor. He did well overnight. He had an overall uneventful recovery. Shortly after surgery, he was ambulating at baseline, voiding independently, and tolerating an oraldiet. He had optimal pain control on oral medications. His incision remained clean and intact. After meeting dismissal criteria, he was discharged home. Clear return precautions were provided, and specific dismissal instructions were reviewed. All appropriate follow-up appointments and/or imaging were scheduled. CONSULTS ORDERED DURING THIS ADMISSION IP CONSULT TO CARE MANAGEMENT CONDITION AT DISCHARGE stable Discharge instructions were provided to the patient and caregiver(s). Total time spent in discharge services today: 20 minutes. documented in this encounter Medications at Time [...] needed for dry eyes. 50 each 06/25/2023 insulin NPH (NovoLIN N FlexPen) 100 unit/mL (3 mL) pen Inject 12 Units under the skin every morning. 05/03/2024 lancets 1 each daily. 50 each 07/29/2022 [...] by mouth 2 (two) times a day. sertraline (Zoloft) 50 mg tablet Take 50 mg by mouth daily. 02/13/2024 documented as of this encounter Progress Notes * Maxwell Crowley M.D., Ph.D. - 05/04/2024 6:51 AM CDT 6-030 Estevan Lester [phone] PPD#1 status post left ICA angioplasty for restenosis Interval: Uncomplicated procedure. Post-procedure baseline left carotid US obtained 05/03/2024. AALIYAH, AFVSS. Pain well-controlled. Neurologically stable. Right radial access site, clean/dry/intact. Exam: AOx3, slowed. PERRL, EOMI. Chronic residual right hemiparesis. SILT. Plan: Rivoroxaban 10 mg daily + ASA 81 mg daily. Discontinue ticagrelor. Discharge facility 05/04/2024. --- Neurosurgery - [facility] Service, [phone] * Boris Moreno R.Ph. - 05/03/2024 1:34 PM CDT Images from the original note were not included. Admission Medication History Note Adherence issues: No concerns Medication list source: Outside facility [facility], Care Everywhere or chart review, and Pharmacy or dispense records Medication related information: Prior to Admission Medications Med List Status: Pharmacy Complete Set By: Boris Moreno R.Ph. at 05/03/2024 1:34 PM Taking? Last Dose Informant Start Date End Date LT acetaminophen (TylenoL) 500 mg tablet -- -- 01/20/24 -- Take 2 tablets (1,000 mg total) by mouth 4 (four) times a day. amLODIPine (Norvasc) 5 mg tablet -- -- 01/20/24 -- Take 1 tablet (5 mg total) by mouth daily. aspirin 81 mg chewable tablet 05/02/2024 -- 06/25/23 05/03/24 Chew 1 tablet (81 mg total) daily. atorvastatin (Lipitor) 40 mg tablet -- -- 01/20/24 -- Take 1 tablet (40 mg total) by mouth at bedtime. calcium citrate-vitamin D3 (Citracal + D3) 315 mg-5 mcg (200 Unit) per tablet -- -- 01/20/24 -- Take 2 tablets by mouth 2 (two) times a day. carboxymethylcellulose (REFRESH PLUS) 0.5 % ophthalmic solution -- -- 06/25/23 -- Administer 2 drops into both eyes 4 (four) times a day as needed for dry eyes. insulin NPH (NovoLIN N FlexPen) 100 unit/mL (3 mL) pen -- -- 01/20/24 -- Inject 8 Units under the skin every morning. Patient taking differently: Inject 12 Units under the skin every morning. lancets -- Self 07/29/22 -- 1 each daily. levETIRAcetam (Keppra) 100 mg/mL solution -- -- 06/25/23 -- Take 7.5 mL (750 mg total) by mouth 2 (two) times a day. nystatin (Mycostatin) 100,000 unit/gram cream -- -- 12/25/23 -- Apply 1 Application topically 2 (two) times a day. nystatin (Nystop) 100,000 unit/gram powder -- -- -- -- Apply 1 Application topically 2 (two) times a day. oxyCODONE (Roxicodone) 5 mg immediate release tablet -- -- 01/20/24 -- Take 1 tablet (5 mg total) by mouth every 4 (four) hours as needed for pain Indication: Acute Pain Exception. Take 1 tablet (5 mg) if pain 5-7/10, take 2 tablets (10 mg) if pain 8-10/10 pantoprazole (Protonix) 40 mg EC tablet -- -- -- -- Take 40 mg by [...] polyethylene glycol (Miralax) 17 gram powder packet -- -- -- -- Take 17 g by mouth daily. Dissolve each 17 g dose in 240 mLs (8 ounces) of beverage. rivaroxaban (Xarelto) 10 mg tablet 04/28/2024 at Morning -- 01/20/24 01/19/25 Take 1 tablet (10 mg total) by mouth daily. sennosides (senna) 8.6 mg tablet -- -- -- -- Take 8.6 mg by mouth 2 (two) times a day. sertraline (Zoloft) 50 mg tablet -- -- 02/13/24 -- Take 50 mg by mouth daily. ticagrelor (Brilinta) 90 mg tablet -- -- 05/02/24 -- Take 2 tablets PM prior to angiogram; then take 1 tablet AM of angiogram Notes: Patient starting 05/02 * Fantasma Butt M.D. - 05/03/2024 1:01 PM CDT Underwent uncomplicated angioplasty of left internal carotid artery restenosis. We will restart Xarelto and continue aspirin 81 mg 1 tablet every day. We will be obtaining a Doppler ultrasound duringthis hospitalization and then a follow- up three-month Doppler ultrasound after discharge. in absence of new symptoms, he can be transferred to his original facility as soon as tomorrow. The plan of care and outcome of the procedure discussed with the patient sister Lor over the phone documented in this encounter H&P Notes * Radha Ojeda P.A.-C., M.S. - 05/03/2024 9:19 AM CDT SUBJECTIVE CHIEF COMPLAINT Bilateral in-stent stenosis HISTORY OF PRESENT ILLNESS Estevan Lester is a 59-year-old with a history of cervical right ICA stenting in July of 2022with in stent stenosis post drug coated balloon angioplasty in March of 2023. In May of 2023 following the hip revision surgery he developed a left ICA occlusion and underwent mechanical thrombectomy and carotid angioplasty and stenting of an acute cervical left ICA occlusion. He has resultantright hemiplegia and aphasia. Follow-up carotid ultrasound exams have demonstrated progressive bilateral, lkwy-equdyqy-jupz-right in stent stenosis and he presents today for endovascular treatment. ASSESSMENT / PLAN #1 Left in-stent carotid stenosis s/p angioplasty 05/03/2024- Dr. Butt #2 Right carotid stenosis s/p stent 07/2022 and s/p drug coated angioplasty 03/20/2023 #3 Status post surgical intervention for right periprosthetic femoral shaft fracture January 16, 2024 #4 Status post right ISRRAEL 01/06/2024 #5 Left MCA infarct 05/2023 #6 Right UE/LE hemiparesis #7 Diabetes mellitus, poorly controlled #8 Hypertension #9 Hyperlipidemia #10 Peripheral arterial disease #11 Obesity, BMI 30-39.9 #12 MICHELET Admit to [facility], general care Routine neuro checks and vitals Activity as tolerated TR band, wean per protocol D/C Brilinta Restart Xarelto, first dose today Continue ASA 81 mg daily Post-procedure US before d/c F/U 3 months with carotid US Please page Dr. Butt's service w/ questions documented in this encounter Procedure Notes * Usama Silver M.D., Ph.D. - 05/03/2024 9:19 AM CDT NEUROENDOVASCULAR POST-PROCEDURE NOTE PATIENT DISPOSITION Admit to [facility], Filomen[facility] service PROCEDURE PERFORMED AND DESCRIPTION IR left carotid in-stent balloon angioplasty PROCEDURE DETAILS See Radiology Report FINDINGS Successful balloon angioplasty for treatment of left carotid in-stent stenosis PRIMARY PROCEDURALIST Dr. Fantasma Nguyen ASSISTANTS Dr. Boone Silver ACCESS SITE Right radial artery CLOSURE TR band COMPLICATIONS None ANESTHESIA Moderate ESTIMATED BLOOD LOSS 1-75 ml Boone Silver M.D., Ph.D. Neuroendovascular Surgery Fellow Neurologic Surgery, PGY-5 documented in this encounter Consult Notes * Gemma Metz RBelkisN. - 05/03/2024 12:21 PM CDTAssociated Order(s): IP CONSULT TO CARE MANAGEMENT Discharge Planning Assessment SUBJECTIVE Assessment Information Referral Data Referral Source: [employer]SE CENTRIFUGAL OPERATOR/PA Referral Name: Radha Ojeda P.A.-C., M.S. Referral Reason: Discharge Planning Discharge Planning: Shelter Facility Previous Assessment: No Third Hand Services Used: No Primary Language: Togolese Third Hand Services Used: No Person(s) Present During Interview: patient and guardian, Lor - by phone History of Present Illness #1 Stenosis Carotid Artery Left Social History Support System: family members Primary Caregiver: family and facility staff Social Drivers of Health with Concerns No concerns present OBJECTIVE Finance/Insurance Primary insurance: [facility] Secondary insurance: N/A benefits: No Advance Directives Legal Decision Maker: Guardian Advance Directives: POLST/POST, Guardianship Baseline Functional Status Baseline Activities of Daily Living Mobility: Requires lifting device, Assistance of one Dressing: Dependent Feeding: Independent Bathing: Dependent Grooming: Needs assistance Toileting: Dependent Behavior: Pleasant, Calm, Cooperative, Appropriate Communication: Understands speaking, Talks, Understands Togolese Shopping: Dependent Medication Management: Needs assistance Who is managing your medication at home?: Other (Comment) (facility staff) Housekeeping: Dependent Meal Prep: Dependent Assistive Devices: Wheelchair - manual, Lift device Transportation: Stretcher van Managing Finances: Needs assistance Baseline Services/Resources Primary care clinic and provider: Patient Care Team Relationship Specialty Notifications Start End William Edwards M.D. External Primary Care Physician Family Medicine 10/03/23 Address: [address] [place] [phone] Additional Resources: Additional Services: NA Anticipated Needs Functional Status: Transportation use (drive car, use taxi/bus), Shopping, Housekeeping, Managing finances, Medication set-up/administration, Meal preparation, Bathing, Dressing, Toileting, Mobility Assistive Devices: None Anticipated Modifications to the Patient's Home: None Transportation Needs: Stretcher van Does the patient need discharge transport arranged?: Yes Has discharge transport been arranged?: No Transport Provided By: stretcher van transport - patient does have transportation benefits. Anticipated Discharge Destination: Shelter Facility Referrals Initiated: Destination - Admitted Since 05/03/2024 Service Provider Request Status Services Address Phone Fax Patient Preferred [facility] Pending - Request Sent -- [address] [place] [phone] -- category director provided Care Management Brochure ([id number]) and information regarding the dismissal process. ASSESSMENT / PLAN ASSESSMENT: The category director met with Estevan White Lester to discuss his current hospitalization and home going needs. The patient was unaccompanied. The patient has an active health care agent, therefore the category director discussed patient's history, current hospitalization, and discharge planning needswith Danielle LesterMary by phone. The role of category director was reviewed. The patient and patient's guardian reviewed his prior level of care and support system. The patient receives support from his siblings, family members and facility staff . Estevan resides in a retirement facility with level entry. Housekeeping, grocery shopping, meal prep, and other household responsibilities have previously been completed by facility staff . Patient and his legal guardian (sister) Lor denied any concerns with patient returning to his previous retirement facility. Lor shared that patient is lift dependent and prefers his medications crushed. She requested a phone call from patient's surgical team with updates and anticipated plan for follow up. At this time, the care team anticipates the patient requires the following service(s) to be reconnected: retirement facility. The patient and patient's guardian identified the following as theircurrent vendor(s): [facility] in [place], [place]. The patient's potential needs at dismissal based on their home setting, previous needs and responsibilities, homebound status, and relevant assessments were discussed. The patient will be safe and supported to discharge to a SNF, when medically ready. Support will be provided by patient's siblings,legal guardian and facility staff. category director recommendations include: discussing needed assistance with family, friends, or neighbors . Pending hospital course and medical readiness, no barriers to dismissal have been identified at this time. The following hospital-based consult orders and/or referrals placed or requested: None. PLAN: The patient and patient's guardian agrees with the following plan. Patient's Anticipated Discharge Destination: Shelter Facility Patient to return to: Destination - Admitted Since 05/03/2024 Service Provider Services Address Phone Fax Patient Preferred [facility] Shelter [address] [facility] [phone] -- Contact: Shaina For nurse to nurse hand off phone: [phone] Patient has a MA bedhold. Facility can manage IV antibiotics if patient has PICC line - requires 24 hours advance notice. Facility can manage a wound vac. Facility preferred wound vac type: case by case basis only Facility cannot accept weekend readmissions. COVID screening needed before patient can return: yes, guidelines required: within 24 hours of return Facility prefers patient return by 12:00 pm. Facility oxygen provider is [facility] [employer] (phone [phone], fax [phone]) . Was the patient on oxygen at your facility: no The patient is being prepared to discharge on 05/04/24 at 10:30AM if medically ready for transfer. Contact Sort Worker if time needs to be changed. Transportation will be provided by [email or web address] ([phone]). Transportation will be paid for by [place]. Transport oxygen not needed. NURSING: Complete documentation [...] SERVICE: Provide written prescriptions for all narcotics Fax any new prescriptions and orders to [phone]. If transport oxygen is needed, work with nursing and respiratory therapy to complete an oxygen prescription. After Visit Summary to include: All discharge medications including dosage, times for administration, diagnosis, and stop date. Ongoing care - wound care, infection precautions and phone numbers to call. Sort Worker : Reviewed patient's insurance coverage for the services noted above. The patient and guardian appear(s) to have an understanding of this. Transportation upon dismissal has been scheduled: on 05/04/24 at 10:30AM if medically ready for transfer. Contact Sort Worker if time needs to be changed. Transportation will be provided by [employer] ([phone]). Transportation will be paid for by [place]. Transport oxygen not needed. category director encouraged the patient to reach out with any questions/concerns. Care Management will continue to assess for homegoing needs with the interdisciplinary team. Signed by: Gemma Metz R.N. 05/03/2024 documented in this encounter Nursing Notes * Kimo Patel R.N. - 05/04/2024 10:51 AM CDT Shift Goals: Clinical goals for shift: patient will discharge back to [facility]. Identify possible barriers to meeting goals/advancing plan of care: none End of Shift Summary: Patient has remained vitally stable prior to discharge. Neuro exam stable. Reports of pain controlled with PO medication. Tolerating solid and liquid intake without issue. Voiding incontinent. Last BM 05/03/2024. All education gone over with patient, no further questions. All belongings sent with patient. Transport requested. BP (!) 113/47 (BP Location: Left arm;Upper, Patient Position: Lying) Pulse 66 Temp 36.3 ??C (Oral) Resp 16 SpO2 95% Electronically signed by: Kimo Patel R.N. 05/04/24 11:37 AM CDT * Marcela Flores R.N. - 05/04/2024 6:51 AM CDT Shift Goals: Clinical Goals for the Shift: Pain control, stable neuro status Identify possible barriers to meeting goals/advancing plan of care: carotid procedure, Pt resistance to cares End of Shift Summary: Pt not cooperative with nursing cares, refusing neuro assessments and vitals on bond underwriter's arrival at 2300 insisting to leave him alone till the morning. Checked on patient numerous times during shift and met with same refusing of cares and irritability. 0600 pt was willing to cooperate with cares, neuro assessments and vitals with no new changes from previous assessments. VS WNL. Patient discharge planned for 1030 this morning back to nursing facility via [facility]. * Kermit Mendiola R.N. - 05/03/2024 11:12 PM CDT Shift Goals: Clinical Goals for the Shift: Pt will remain neurologically stable and sit in chair for supper Identify possible barriers to meeting goals/advancing plan of care: NONE End of Shift Summary: Patient is alert and oriented x 3, needs time to answer questions. VSS. Pt is tolerating regular diet with 100% intake, incontinent of urine. Does not use call light, bed/chair alarm utilized for safety. Pt sat in chair for supper, tolerated turns in bed Q2 hours. Plans to DC tomorrow via [employer] [facility] at 10:30 am. Covid swab sent to lab per facility request. BP 135/67 Pulse (!) 59 Temp 36.3 ??C (Axillary) Resp 16 SpO2 97% Electronically signed by: Kermit Mendiola R.N. 05/03/24 11:14 PM CDT documented in this encounter OR Notes * Op Note - Fantasma Butt M.D. - 05/03/2024 4:54 PM CDT Pre-op Diagnosis Carotid artery restenosis. Post-op Diagnosis Same. Operation: Angioplasty of carotid artery restenosis. Surgeon: Filomena Co-surgeon: Patrick Medical Administrative: Nadeem Findings As expected Complications None Operative Note Narrative For a full report of this procedure which was done in Radiology, please see fully dictated Radiology report Fantasma Butt M.D. documented in this encounter Miscellaneous Notes * Hospital Course - Maxwell Crowley M.D., Ph.D. - 05/03/2024 2:39 PM CDT On the day of admission, Estevan Lester was taken to the operative room by Dr. Butt for the procedure listed above. The intraoperative as well as the immediate postoperative course were uncomplicated. He was transferred from the PACU to the general neurosurgical floor. He did well overnight. He had an overall uneventful recovery. Shortly after surgery, he was ambulating at baseline, voiding independently, and tolerating an oraldiet. He had optimal pain control on oral medications. His incision remained clean and intact. After meeting dismissal criteria, he was discharged home. Clear return precautions were provided, and specific dismissal instructions were reviewed. All appropriate follow-up appointments and/or imaging were scheduled. documented in this encounter Plan of Treatment Upcoming Encounters Date Type Department Care Team (Latest Contact Info) Description 07/13/2024 10:00 AM CDT Clinical Communication Virtual Review in [place], [place] [address] [place] [phone] 07/15/2024 10:30 AM CDT Appointment Department of Radiology, [facility] in [place], [place] [address] [place] [phone] Xavi Hicks M.D. [address] [place] [phone] 07/15/2024 11:45 AM CDT Office Visit Department of Orthopedic Surgery in [place], [place] [address] [place] [phone] Vel Vinson M.D., M.B.A. [address] [place] [phone] 08/10/2024 12:45 PM CDT Clinical Communication Virtual Review in [address] [phone] 08/12/2024 9:00 AM CDT Appointment Department of Radiology, [place], [place] [address] [place] [phone] Fantasma Butt M.D. [address] [place] [phone] Discharge Disposition: Home or Self Care 08/12/2024 11:00 AM CDT Office Visit Department of Radiology, [facility], in [place], [place] [address] [place] [phone] Radha Ojeda P.A.-C., M.S. [address] [place] [phone] documented as of this encounter Procedures Procedure Name Priority Date/Time Associated Diagnosis Comments GLUCOSE POCT, B Routine 05/04/2024 8:22 AM CDT GLUCOSE POCT, B Routine 05/03/2024 9:22 PM CDT SARS CORONAVIRUS 2, PCR RAPID, V STAT 05/03/2024 7:04 PM CDT GLUCOSE POCT, B Routine 05/03/2024 6:14 PM CDT REMOTE OXIMETRY MONITORING CONT. Routine 05/03/2024 2:37 PM CDT REMOTE OXIMETRY MONITORING CONT. Routine 05/03/2024 2:37 PM CDT GLUCOSE POCT, B Routine 05/03/2024 12:02 PM CDT US CAROTID LEFT RAD - Routine (most inpatients and all outpatients) 05/03/2024 10:58 AM CDT GLUCOSE POCT, B Routine 05/03/2024 9:38 AM CDT IR CEREBRAL INTRACRANIAL ARTERY PEST CONTROL CHEMICAL TECHNICIAN RAD - Routine (most inpatients and all outpatients) 05/03/2024 9:33 AM CDT Stenosis Carotid Artery Bilateral ACT, POCT, B Routine 05/03/2024 9:09 AM CDT CREATININE, POCT, B Routine 05/03/2024 7 :48 AM CDT CREATININE, POCT, B Routine 05/03/2024 7 :48 AM CDT GLUCOSE POCT, B Routine 05/03/2024 7:38 AM CDT documented in this encounter Results * (ABNORMAL) Glucose, POCT (05/04/2024 8:22 AM CDT) Glucose, POCT, B 171(H) 70 - 140 mg/dL 05/04/2024 8:29 AM CDT PCLX Site Capillary 05/04/2024 8:29 AM CDT PCLX Blood 05/04/2024 8:22 AM CDT 05/04/2024 8:30 AM CDT us Unknown Provider LAB POCT ORDERABLES-MANUAL Cata l Result Performing Organization Address [facility] Co de Phone Number POC [facility] [address] [place] [address], [facility] PCLX [facility] POC [address] [place] [address] * (ABNORMAL) Glucose, POCT (05/03/2024 9:22 PM CDT) Glucose, POCT, B 268(H) 70 - 140 mg/dL 05/03/2024 9:27 PM CDT PCLX Site Capillary 05/03/2024 9:27 PM CDT PCLX Blood 05/03/2024 9:22 PM CDT 05/03/2024 9:27 PM CDT us Unknown Provider LAB POCT ORDERABLES-MANUAL Cata l Result Performing Organization Address [facility]/ZIP Co de Phone Number POC [facility] [address] [place] [address], [facility] PCLX [facility] POC [address] [place] [address] * SARS Coronavirus 2, PCR Rapid Symptomatic (05/03/2024 7:04 PM CDT) SARS CoV-2, PCR, Rapid, V Undetected Undetected 05/03/2024 7:27 PM CDT STMA SARS Coronavirus 2, Rapid, Source Swab, Nasopharynx 05/03/2024 7:04 PM CDT STMA Swab (Nasopharynx) 05/03/2024 7:04 PM CDT 05/03/2024 7:04 PM CDT us Abena Banerjee APRN NBelkisP., D.N.P., M.S.N. LAB MICROBIOLOGY - GENERAL ORDERABLES Final Result [facility] [address] [place] [address], [facility] STMA [facility] [address] [place] [address] * (ABNORMAL) Glucose, POCT (05/03/2024 6:14 PM CDT) Glucose, POCT, B 181(H) 70 - 140 mg/dL 05/03/2024 6:17 PM CDT PCLX Site Capillary 05/03/2024 6:17 PM CDT PCLX Blood 05/03/2024 6:14 PM CDT 05/03/2024 6:17 PM CDT us Unknown Provider LAB POCT ORDERABLES-MANUAL Cata l Result Performing Organization Address [facility]/ZIP Co de Phone Number POC [facility] [address] [place] [address], [facility] PCLX [facility] POC [address] [place] [address] * (ABNORMAL) Glucose, POCT (05/03/2024 12:02 PM CDT) Glucose, POCT, B 186(H) 70 - 140 mg/dL 05/03/2024 12:04 PM CDT PCLX Site Capillary 05/03/2024 12:04 PM CDT PCLX Last Intake > 4 hours 05/03/2024 12:04 PM CDT PCLX Blood 05/03/2024 12:0 2 PM CDT 05/03/2024 12:05 PM CDT us Unknown Provider LAB POCT ORDERABLES-MANUAL Cata l Result Performing Organization Address City/[facility]/ZIP Co de Phone Number POC [facility] [address] [place] [address], [facility] PCLX [facility] POC [address] [place] [address] * US Carotid Left (05/03/2024 10:58 AM CDT) Anatomical Region Laterality Modality Head and Neck, Ultrasound RS T LOS, Ultrasound ARZ LOS, Neuroradiology FLA LOS Left Ultrasound Impressions 05/03/2024 11:20 AM CDT Slight progression of left ICA in-stent stenosis Narrative 05/03/2024 11:20 AM CDT EXAM: US CAROTID LEFT Exam performed with color and spectral Doppler analysis. COMPARISON: 02/19/2024 FINDINGS: LEFT: Slight progression of in-stent left internal carotid artery stenosis, currently approaching 80% based on velocity criteria. Mild atheromatous disease in the left CCA. No ECA stenosis appreciated today. Dampened antegrade flow in the left vertebral artery; the more proximal stenosis seen on CT 01/15/2024 is not appreciated with ultrasound today. VELOCITIES (cm/sec) Left CCA *psv: 59 cm/s Left ICA psv: 315 cm/s Left ICA edv: 131 cm/s Left ECA psv: 86 cm/s Left ICA/CCA: 5.4 *mid/distal (non-diseased) Measurement of a carotid stenosis, if present, is based on velocity parameters that compare the residual internal carotid luminal diameter with that of the normal distal ICA in accordance with [place] Symptomatic Carotid Endarterectomy Trial (NASCET). Procedure Note Saw Tavera M.D. - 05/03/2024 EXAM: US CAROTID LEFT Exam performed with color and spectral Doppler analysis. COMPARISON: 02/19/2024 FINDINGS: LEFT: Slight progression of in-stent left internal carotid arterystenosis, currently approaching 80% based on velocity criteria. Mildatheromatous disease in the left CCA. No ECA stenosis appreciated today.Dampened antegrade flow in the left vertebral artery; the more proximal stenosis seen on CT 01/15/2024 is notappreciated with ultrasound today. VELOCITIES (cm/sec) Left CCA *psv: 59 cm/s Left ICA psv: 315 cm/s Left ICA edv: 131 cm/s Left ECA psv: 86 cm/s Left ICA/CCA: 5.4 *mid/distal (non-diseased) Measurement of a carotid stenosis, if present, is based on velocityparameters that compare the residual internal carotid luminal diameterwith that of the normal distal ICA in accordance with North AmericanSymptomatic Carotid Endarterectomy Trial (NASCET). IMPRESSION: Slight progression of left ICA in-stent stenosis us Radha Ojeda P.A.-C., M.S. IMG US PROCEDURES Fi nal Result * (ABNORMAL) Glucose, POCT (05/03/2024 9:38 AM CDT) Glucose, POCT, B 187(H) 70 - 140 mg/dL 05/03/2024 10:06 AM CDT PCLX Site Capillary 05/03/2024 10:06 AM CDT PCLX Blood 05/03/2024 9:38 AM CDT 05/03/2024 10:06 AM CDT us Unknown Provider LAB POCT ORDERABLES-MANUAL Cata l Result POC [facility] [address] [place] [address], [facility] PCLX [facility] POC [address] [place] [address] * IR Cerebral Intracranial Artery PEST CONTROL CHEMICAL TECHNICIAN (05/03/2024 9:33 AM CDT) Anatomical Region Laterality Modality Head, Neuro Interventional R ST LOS, Neuroradiology ARZ LOS, Neuro Interventional FLA LOS N/A X-Ray Angiography Impressions 05/04/2024 8:49 AM CDT Successful balloon angioplasty for treatment of severe left internal carotid artery in-stent stenosis. Lesion calcification: Mild Arch atherosclerosis: Moderate Arch type: 2 Non-bovine anatomy Lesion length: 13.7 mm ICA distal tortuosity: Mild Narrative 05/04/2024 8:49 AM CDT EXAM: IR CEREBRAL INTRACRANIAL ARTERY PEST CONTROL CHEMICAL TECHNICIAN COMPARISON: Ultrasound carotid artery bilateral February 19, 2024 PREPROCEDURE: Patient seen and evaluated. Allergies, pertinent medications, and history reviewed. Discussed risks, benefits, alternatives for procedure, and obtained informed consent. Patient understands information and questions answered. Immediately prior to starting the procedure, in the presence of the assisting personnel, procedural pause was conducted to verify correct patient identity and verification of procedure to be performed, and as applicable, correct side and site, correct patient position, availability of implants, special equipment, or special requirements, and all image and specimen identification data. The roles and responsibilities of care team members, residents, and fellows were discussed. Sedation provided by Anesthesiology TECHNIQUE: The patient's right wrist was prepped and draped in sterile fashion. Radial artery access was obtained under ultrasound guidance via Seldinger technique with insertion of a 7 Sami sheath into the right radial artery. 6000 units of heparin was administered intravenously and an ACT was checked approximately 5 minutes thereafter. 5 mg of verapamil was flushed through the sheath. A EventHive 2 catheter over stiff Glidewire was navigated to the aortic arch and formatted before navigating to the left common carotid artery where the guide catheter was advanced. Left common carotid artery cerebral and cervical angiography was performed. Under roadmap guidance, a Nav6 emboshield was deployed in the distal left cervical internal carotid artery. We then navigated a 5 x 30 Lee balloon to the proximal left internal carotid artery and inflated and deflated the balloon under continuous fluoroscopy. The filter device was then recaptured. Left common carotid artery cervical and cerebral angiography was performed after angioplasty. The patient tolerated the procedure well and his neurologic status was unchanged. Hemostasis was obtained in the right wrist using a TR band with intact distal perfusion. Dr. Butt and Dr. Nguyen were the attending physicians. Dr. Silver assisted. FINDINGS: Left common carotid artery cerebral angiography demonstrates normal appearance of internal and external carotid artery branches. There is no residual evidence of the previous left M1 occlusion. Left common carotid artery cervical angiography demonstrates in-stent stenosis of the proximal left internal carotid artery measuring 89% and 13.7 mm in length. Following angioplasty, the stenosis is improved to 41%. Control left common carotid artery cerebral angiography after angioplasty demonstrates no evidence of thromboembolic complications. Procedure Note Fantasma Butt M.D. - 05/04/2024 EXAM: IR CEREBRAL INTRACRANIAL ARTERY PEST CONTROL CHEMICAL TECHNICIAN COMPARISON: Ultrasound carotid artery bilateral February 19, 2024 PREPROCEDURE: Patient seen and evaluated. Allergies, pertinentmedications, and history reviewed. Discussed risks, benefits, alternativesfor procedure, and obtained informed consent. Patient understandsinformation and questions answered. Immediately prior to starting the procedure, in the presence of the assistingpersonnel, procedural pause was conducted to verify correct patientidentity and verification of procedure to be performed, and as applicable,correct side and site, correct patient position, availability of implants, special equipment, or specialrequirements, and all image and specimen identification data. The rolesand responsibilities of care team members, residents, and fellows werediscussed. Sedation provided by Anesthesiology TECHNIQUE: The patient's right wrist was prepped and draped in sterilefashion. Radial artery access was obtained under ultrasound guidance viaSeldinger technique with insertion of a 7 Sami sheath into the rightradial artery. 6000 units of heparin was administered intravenously and an ACT was checked approximately 5minutes thereafter. 5 mg of verapamil was flushed through the sheath. ASimmSophie & Juliet 2 catheter over stiff Glidewire was navigated to the aortic archand formatted before navigating to the left common carotid artery where the guide catheter was advanced. Leftcommon carotid artery cerebral and cervical angiography was performed.Under roadmap guidance, a Nav6 emboshield was deployed in the distal leftcervical internal carotid artery. We then navigated a 5 x 30 Lee balloon to the proximal left internalcarotid artery and inflated and deflated the balloon under continuousfluoroscopy. The filter device was then recaptured. Left common carotidartery cervical and cerebral angiography was performed after angioplasty. The patient tolerated the procedure welland his neurologic status was unchanged. Hemostasis was obtained in theright wrist using a TR band with intact distal perfusion. Dr. Butt and Dr. Nguyen were the attending physicians. Dr. Palaciosisted. FINDINGS: Left common carotid artery cerebral angiography demonstrates normalappearance of internal and external carotid artery branches. There is noresidual evidence of the previous left M1 occlusion. Left common carotid artery cervical angiography demonstrates in-stentstenosis of the proximal left internal carotid artery measuring 89% and13.7 mm in length. Following angioplasty, the stenosis is improved to 41%. Control leftcommon carotid artery cerebral angiography after angioplasty demonstratesno evidence of thromboembolic complications. IMPRESSION: Successful balloon angioplasty for treatment of severe left internalcarotid artery in-stent stenosis. Lesion calcification: Mild Arch atherosclerosis: Moderate Arch type: 2 Non-bovine anatomy Lesion length: 13.7 mm ICA distal tortuosity: Mild us Radha Ojeda P.A.-C., M.S. IMG IR PROCEDURES Fi nal Result * (ABNORMAL) ACT (Activated Clotting Time), POCT (05/03/2024 9:09 AM CDT) [facility] Activated Clotting Time, POCT 311(H) 84 - 139 sec 05/03/2024 12:34 PM CDT PCSM Blood 05/03/2024 9:09 AM CDT 05/03/2024 12:34 PM CDT us Unknown Provider LAB POCT ORDERABLES - DEVICE Fi nal Result Performing Organization Address [facility] de Phone Number POC [facility] [address] PCSM [facility] POC [address] [place] [address] * Creatinine, POCT (05/03/2024 7:48 AM CDT) [facility] Creatinine, POCT, B 0.8 0.7 - 1.4 mg/dL 05/03/2024 7:50 AM CDT PCDT Comment: ----ADDITIONAL INFORMATION---- Performed at the Point of Care Blood 05/03/2024 7:48 AM CDT 05/03/2024 7:50 AM CDT us Unknown Provider LAB POCT ORDERABLES - DEVICE Fi nal Result Performing Organization Address [facility] de Phone Number [facility] PERFORMING LABS [address] [facility] [address] PCDT [facility] POC [address] [place] [address] * Creatinine, POCT (05/03/2024 7:48 AM CDT) [facility] Estimated GFR (eGFR), POCT >90 >=60 mL/min/BSA 05/03/2024 7:50 AM CDT PCED Comment: Estimated GFR calculated using the 2020 CKD_EPI creatinine equation. Blood 05/03/2024 7:48 AM CDT 05/03/2024 7:50 AM CDT us Unknown Provider LAB POCT ORDERABLES - DEVICE Fi nal Result Performing Organization Address [facility] Co de Phone Number POC [facility] OUTPAT[facility] [address] PCED [facility] POC [address] [place] [address] * (ABNORMAL) Glucose, POCT (05/03/2024 7:38 AM CDT) Glucose, POCT, B 188(H) 70 - 140 mg/dL 05/03/2024 7:41 AM CDT PCLX Site Capillary 05/03/2024 7:41 AM CDT PCLX Blood 05/03/2024 7:38 AM CDT 05/03/2024 7:41 AM CDT us Unknown Provider LAB POCT ORDERABLES-MANUAL Cata l Result Performing Organization Address [facility] de Phone Number POC [facility] [address] PCLX [facility] POC [address] [place] [address] documented in this encounter Visit Diagnoses Diagnosis Stenosis Carotid Artery Left- Primary Stenosis Carotid Artery Bilateral documented in this encounter Admitting Diagnoses Diagnosis Stenosis Carotid Artery Left documented in this encounter Administered Medications Inactive Administered Medications - up to 3 most recent administrations Medication Order MAR Action Action Date Dose Rate Site acetaminophen tablet 1,000 mg (TylenoL) 1,000 mg, oral, Every 6 hours PRN, mild pain or score 1-3 of 10, moderate pain or score 4-6 of 10, Starting on Fri05/03/24 at 0940, PACU & Post-Op Given 05/04/2024 9:28 AM CDT 1,000 mg amLODIPine tablet 5 mg (Norvasc) 5 mg, oral, Daily, First dose on Fri05/04/24 at 0900, PACU & Post-Op Given 05/04/2024 9:28 AM CDT [address] tablet 81 mg 81 mg, oral, Daily, First dose on Fri05/03/24 at 0945, PACU & Post-Op, Swallow whole. Do NOT crush, chew, or split tablet. Given 05/04/2024 9:28 AM CDT 81 mg Given 05/03/2024 2:13 PM CDT 81 mg atorvastatin tablet 40 mg (Lipitor) 40 mg, oral, Daily at bedtime, First dose on Fri05/03/24 at 2100, PACU & Post-Op Given 05/03/2024 8:45 PM CDT 40 mg insulin aspart U-100 injection 0-13 Units (NovoLOG FlexPen) 0-13 Units, subcutaneous, 3 times daily, First dose on Fri05/03/24 at 1200, Insulin Scale: Moderate Correction Scale, 140 - 179: 2 units, 180 - 219: 4 units, 220 - 259: 6 units, 260 - 299: 8 units, 300 - 339: 10 units, 340 - 379: 12 units, 380 - 399: 13 units, Greater than 399: Call service writing Insulin orders Given 05/04/2024 9:29 AM CDT 2 Units Right Upper Abdomen Given 05/03/2024 6:48 PM CDT 4 Units Le ft Lower Abdomen Given 05/03/2024 12:10 PM CDT 4 Units R ight Lower Abdomen insulin aspart U-100 injection 0-7 Units (NovoLOG FlexPen) 0-7 Units, subcutaneous, Daily at bedtime, First dose on Fri05/03/24 at 2100, Insulin Scale: Modified Bedtime Correction Scale, 220-259: 3 units, 260-299: 4 units, 300-339: 5 units, 340-379: 6 units, 380-399: 7 units, Greater than 399: Call service writing insulin orders Given 05/03/2024 9:28 PM CDT 4 Units Left Upper Arm (Back ) iohexoL 300 mg iodine/mL solution (Omnipaque) As needed, Starting on Fri05/03/24 at 0916, Intra-Op Given 05/03/2024 9:16 AM CDT 150 mL levETIRAcetam solution 750 mg (Keppra) 750 mg, oral, 2 times daily, First dose on Fri05/03/24 at 2100, PACU & Post-Op Given 05/04/2024 9:28 AM CDT 750 mg Given 05/03/2024 8:45 PM CDT 750 mg lidocaine 10 mg/mL (1 %) injection (Xylocaine) As needed, Starting on Fri05/03/24 at 0916, Intra-Op Given 05/03/2024 9:16 AM CDT 1 mL rivaroxaban tablet 10 mg (Xarelto) 10 mg, oral, Daily, First dose on Fri05/03/24 at 1000, PACU & Post-Op Given 05/04/2024 9:28 AM CDT 10 mg Given 05/03/2024 2:39 PM CDT 10 mg sennosides tablet 8.6 mg (Senokot) 8.6 mg, oral, 2 times daily, First dose on Fri05/03/24 at 2100, PACU & Post-Op Given 05/04/2024 9:28 AM CDT 8.6 mg Given 05/03/2024 8:45 PM CDT 8.6 mg sertraline tablet 50 mg (Zoloft) 50 mg, oral, Daily, First dose on Fri05/04/24 at 0900, PACU & Post-Op Given 05/04/2024 9:28 AM CDT 50 mg verapamiL injection (Isoptin) As needed, Starting on Fri05/03/24 at 0916, Intra-Op Given 05/03/2024 9:16 AM CDT 2.5 mg documented in this encounter Active and Recently Administered Medications Times are shown in CDT. Scheduled Medication Order 05/02/2024 05/03/2024 05/04/2024 amLODIPine tablet 5 mg (Norvasc) 5 mg, oral, Daily, First dose on Fri05/04/24 at 0900, PACU & Post-Op 0928 (Given - Provid er: Kimo Patel R.N.) aspirin DR tablet 81 mg 81 mg, oral, Daily, First dose on Fri05/03/24 at 0945, PACU & Post-Op, Swallow whole. Do NOT crush, chew, or split tablet. 1413 (Given - Provider: Mirta Partida R.N.) 0928 (Given - Provider: Kimo Patel R.N.) atorvastatin tablet 40 mg (Lipitor) 40 mg, oral, Daily at bedtime, First dose on Fri05/03/24 at 2100, PACU & Post-Op 2044 (Given - Provider: Kermit Mendiola R.N.) insulin aspart U-100 injection 0-13 Units (NovoLOG FlexPen) 0-13 Units, subcutaneous, 3 times daily, First dose on Fri05/03/24 at 1200, Insulin Scale: Moderate Correction Scale, 140 - 179: 2 units, 180 - 219: 4 units, 220 - 259: 6 units, 260 - 299: 8 units, 300 - 339: 10 units, 340 - 379: 12 units, 380 - 399: 13 units, Greater than 399: Call service writing Insulin orders 1210 (Given - Provider: Mirta Partida R.N.)1848 (Given - Provider: Jael GalindoNBelkis) 09 (Given - Provider: Jael CorleyNBelkis) insulin aspart U-100 injection 0-7 Units (NovoLOG FlexPen) 0-7 Units, subcutaneous, Daily at bedtime, First dose on Fri05/03/24 at 2100, Insulin Scale: Modified Bedtime Correction Scale, 220-259: 3 units, 260-299: 4 units, 300-339: 5 units, 340-379: 6 units, 380-399: 7 units, Greater than 399: Call service writing insulin orders 2127 (Given - Provider: Kermit Mendiola RBelkisN.) levETIRAcetam solution 750 mg (Keppra) 750 mg, oral, 2 times daily, First dose on Fri05/03/24 at 2100, PACU & Post-Op 2044 (Given - Provider: Kermit Mendiola RBelkisNBelkis) 0928 (Given - Provider: Kimo Patel RBelkisNBelkis) pantoprazole DR tablet 40 mg (Protonix) 40 mg, oral, Daily before morning meal, First dose on Fri05/04/24 at 0700, PACU & Post-Op, Swallow whole. Do NOT crush, chew, or split tablet. 0642 (Not Given - Provider: Maribell Rider - Reason: Patient/family refused) polyethylene glycol powder packet 17 g (Miralax) 17 g, oral, Daily, First dose on Fri05/04/24 at 0900, PACU & Post-Op, Dissolve in 240 mLs (8 ounces) of water prior to giving. Avoid mixing with starch-based thickened liquids. 0929 (Not Given - Provider: Kimo Patel R.N. - Reason: Other) rivaroxaban tablet 10 mg (Xarelto) 10 mg, oral, Daily, First dose on Fri05/03/24 at 1000, PACU & Post-Op 1439 (Given - Provider: Mirta Partida R.N.) 927 (Given - Provider: Kimo Patel R.N.) sennosides tablet 8.6 mg (Senokot) 8.6 mg, oral, 2 times daily, First dose on Fri05/03/24 at 2100, PACU & Post-Op 2045 (Given - Provider: Kermit Mendiola R.N.) 927 (Given - Provider: Kimo Patel R.N.) sertraline tablet 50 mg (Zoloft) 50 mg, oral, Daily, First dose on Fri05/04/24 at 0900, PACU & Post-Op 09 (Given - Provid er: Kimo Patel R.N.) PRN Medication Order 05/02/2024 05/03/2024 05/04/2024 acetaminophen tablet 1,000 mg (TylenoL) 1,000 mg, oral, Every 6 hours PRN, mild pain or score 1-3 of 10, moderate pain or score 4-6 of 10, Starting on Fri05/03/24 at 0940, PACU & Post-Op 0928 (Given - Provid er: Kimo Patel R.N.) benzocaine-menthoL 15-3.6 mg per lozenge 1 lozenge (CepacoL) 1 lozenge, oral, As needed, sore throat, throat irritation, Starting on Fri05/03/24 at 0940, PACU & Post-Op bisacodyL suppository 10 mg (Dulcolax) 10 mg, rectal, Daily PRN, constipation, Starting on Fri05/03/24 at 0940, PACU & Post-Op, Ordered sequence of administration: polyethylene glycol, then bisacodyl until BM achieved. iohexoL 300 mg iodine/mL solution (Omnipaque) (CANCELED) As needed, Starting on Fri05/03/24 at 0916, Intra-Op 0916 (Given - Provider: Usama Silver M.D., Ph.D.) lidocaine 10 mg/mL (1 %) injection (Xylocaine) (CANCELED) As needed, Starting on Fri05/03/24 at 0916, Intra-Op 0916 (Given - Provider: Usama Silver M.D., Ph.D.) naloxone injection 0.2 mg (Narcan) 0.2 mg, intravenous, As needed, respiratory depression, Starting on Fri05/03/24 at 0940, PACU & Post-Op, For RASS Score -4 or less, respiratory rate of less than 8 breaths/min. Notify provider/service and rapid response team (if available at institution). ondansetron (PF) injection 4 mg (Zofran) 4 mg, intravenous, Every 6 hours PRN, nausea, vomiting, Starting on Fri05/03/24 at 1330, For 48 hours, PACU & Post-Op, Reassess for nausea or vomiting after at least 10 minutes. If nausea or vomiting persists administer next ordered antiemetic medications (order for antiemetic medication administration ondansetron then haloperidol then prochlorperazine). oxyCODONE IR tablet 5 mg (Roxicodone) 5 mg, oral, Every 4 hours PRN, severe pain or score 7-10 of 10, Starting on Fri05/03/24 at 0916, PACU & Post-Op, Indications: Acute Pain Exception prochlorperazine injection 5 mg (Compazine) 5 mg, intravenous, Every 6 hours PRN, vomiting, nausea, Starting on Fri05/03/24 at 0940, For 48 hours, PACU & Post-Op, RASS must be -2 or higher to administer. Reassess for nausea or vomiting after at least 10 minutes. If nausea or vomiting persists administer next ordered antiemetic medications (order for antiemetic medication administration ondansetron then haloperidol then prochlorperazine) verapamiL injection (Isoptin) (CANCELED) As needed, Starting on Fri05/03/24 at 0916, Intra-Op 0916 (Given - Provider: Usama Silver M.D., Ph.D.) documented in this encounter Additional Health Concerns Infection Onset Date Last Indicated Resolved Time COVID19 Pending 05/03/2024 05/03/2024 05/03/2024 7 :28 PM CDT documented as of this encounter Care Teams Manager Policy Relationship Specialty Start Date End Date Elsewhere, Pcp PCP - General Internal Medicine 10/03/23 documented as of this encounter
--- OUTSIDE RECORDS SUMMARY | 2024-06-12 07:19 | XMS_ITS | Encounter Summary ---
Author Organization [facility] Address [address] [place] [address] Care Team Providers Care Instrumentation And Controls Technician Name Role Phone Elsewhere, Pcp Primary Care Provider Unavailabl e Encounter Details Date Type Department Care Team (Late st Contact Info) Description 04/28/2024 Clinical Communication Department of Neurologic Surgery in [place], [place] [address] [place] [address] Fantasma Butt M.D. [address] [place] [phone] Social History Tobacco Use Types Packs/Day Years Used Date Smoking Tobacco: Never Passive Smoke Exposure: Never Smokeless Tobacco: Never Alcohol Use Standard Drinks/Week Comments Never 2 (1 standard drink = 0.6 oz pur e alcohol) [facility] Utilities Answer Date Recorded In the past 12 months has [facility] [email or web address], gas, oil, or water [employer] threatened to shut off services in your [...] your living situation today? 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 [address] [place] [phone] 07/15/2024 11:45 AM CDT Office Visit Department of Orthopedic Surgery in [place], [place] [address] [place] [phone] Vel Vinson M.D., M.B.A. [address] [place] [phone] 08/10/2024 12:45 PM CDT Clinical Communication Virtual Review in [place], [place] 200 [place] [address] 08/12/2024 9:00 AM CDT Appointment Department of Radiology, [facility], in [place], [place] [address] [place] [phone] Fantasma Butt M.D. [address] [place] [phone] Discharge Disposition: Home or Self Care 08/12/2024 11:00 AM CDT Office Visit Department of Radiology, [facility], in [place], [place] [address] [place] [phone] Radha Ojeda P.A.-C., M.S. [address] [place] [phone] documented as of this encounter Visit Diagnoses Not on filedocumented in this encounter Additional Health Concerns Infection Onset Date Last Indicated Resolved Time COVID19 Pending 05/03/2024 05/03/2024 05/03/2024 7 :28 PM CDT documented as of this encounter Care Teams Instrumentation And Controls Technician Relationship Specialty Start Date End Date Elsewhere, Pcp PCP - General Internal Medicine 10/03/23 documented as of this encounter
--- OUTSIDE RECORDS SUMMARY | 2024-06-12 07:19 | XMS_ITS | Encounter Summary ---
Author Organization [facility] Address [address] [place] [address] Care Team Providers Care Sales Officer Name Role Phone Elsewhere, Pcp Primary Care Provider Unavailabl e Reason for Visit * Auth/Cert (Routine) Specialty Diagnoses / Procedures Referred By Anoopac t Referred To Contact Diagnoses Stenosis Carotid Artery Bilateral Stenosis Carotid Artery Left Procedures IR CEREBRAL ARTERY ANGIOGRAM Referral ID Status Reason Start Date Expiration Date Visits Re quested Visits Authorized [id number] 1 1 Encounter Details Date Type Department Care Team (Late st Contact Info) Description 05/03/2024 8:08 AM CDT Anesthesia Event Department of Radiology in [place], [place] [address] [place] [phone] Erinn Carrera M.B.B.S. [address] [place] [phone] Aamir Carpenter M.D. [address] [place] [phone] Anesthesia Record Procedure Summary Procedure Name Responsible Anesthesiologist Anesthesia Start Time Anesthesia Stop Time IR CEREBRAL INTRACRANIAL ARTERY COMMUNITY MENTAL HEALTH WORKER Erinn Carrera M.B.B.S. 05/03/24 0808 05/03/24 0923 Events Date Time Event Comment 05/03/2024 0808 An Start Machine/Equipme nt Checked Infection Precautions Followed Procedure/Site Verified NPO Status Verified Supine Standard ASA Monitors Applied 0810 Turnover to Proceduralist 0836 Proc Start 0919 Turnover to ANE Staff 0920 an stop data 0923 An End I completed my handoff to [...] Meds Name Total lidocaine 2% (mg) injection 60 mg ondansetron PF 4 mg/2 mL injection 4 mg glycopyrrolate (RobinuL) injection 0.2 m g/mL 0.4 mg ePHEDrine PF 5 mg/mL injection 35 mg heparin injection 1,000 Units/mL 6,000 U nits atropine injection 0.1 mg/mL syringe 0.1 mg ketorolac (ToradoL) injection 15 mg/mL 1 5 mg acetaminophen injection 1,000 mg/100 mL (RESTRICTED) 1,000 mg fentaNYL (Sublimaze) PF injection 50 mcg /mL 30 mcg Lactated Ringers Free Drip 600 mL * Agents No agents on file. * Blood No blood administrations on file. Lines, Drains, and Airways Type Details Placement Removal Wound 01/16/24; 0820; Fric tion Inj; Hip; Right, Lateral; to Posterior Back with Medical Adhesive Related Skin Injury 01/16/24 0820 by Connor Bates, R.N. Wound 01/17/24; 0000; Y; Blister; Toe Great; Anterior, Right; (Unroofed) 01/17/24 0000 by Rosalie Jean RBelkisN., C.W.O.C.N. Percutaneous Access Site 05/03/24; 0846; Arterial; Chlorhexidine (Preferred); 7 Fr.; Radial compression system; 12 mL 05/03/24 0846 by Josefina Sahu, R.T.(R) Peripheral IV Placement Date: 05/03/24; Placement Time: 0739; Catheter Size: 20 G; Orientation: Left; Location: Antecubital; Site Prep: Chlorhexidine (Preferred); Technique: Anatomical landmarks (1); Inserted by: pds; Insertion Attempts: 1; Removal Date: 05/04/24; Removal Time: 1008; Removal Reason: Patient discharged 05/03/24 0739 by Estela Ramirez 05/04/24 1008 by Cocker, Cary L, C.N.A. Percutaneous Access Site 05/03/24; 835; Temporary (non-tunneled, non-implanted); Arterial; Dr Silver; Right Radial; 5 Fr.; Radial compression system; 12 mL; 05/03/24; 91905/03/24 08 by Chino Landrum R.N. 05/03/24919 by Chino Landrum R.N. documented in this encounter Social History Tobacco Use Types Packs/Day Years Used Date Smoking Tobacco: Never Passive Smoke Exposure: Never Smokeless Tobacco: Never Alcohol Use Standard Drinks/Week Comments Never 2 (1 standard drink = 0.6 oz pur e alcohol) [facility] Utilities Answer Date Recorded In the past 12 months has [facility] [employer], gas, oil, or water [employer] threatened to shut off services in your [...] your living situation today? 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 - 05/03/2024 10:57 AM CDT Patient: Estevan Lester Procedure Summary Date: 05/03/24 Room / Location: Department of Radiology in [place], [place] Anesthesia Start: 807 Anesthesia Stop: 922 Procedure: IR CEREBRAL INTRACRANIAL ARTERY COMMUNITY MENTAL HEALTH WORKER Diagnosis: Stenosis Carotid Artery Bilateral Stenosis Carotid Artery Bilateral Stenosis Carotid Artery Left (B/L progressive in-stent carotid stenosis, possible drug coated balloon angiogplasty) Scheduled Providers: Hal Nguyen M.D., Ph.D.; Fantasma Butt M.D. Responsible Provider: Erinn Carrera M.B.B.S. Anesthesia Type: MAC ASA Status: 4 Anesthesia Type: MAC Last vitals Vitals Value Taken Time BP 115/71 05/03/24 1022 Temp 36.2 ??C 05/03/24 0930 Pulse 71 05/03/24 1022 Resp 12 05/03/24 1022 SpO2 93 % 05/03/24 1022 Please reference Vitals flowsheet for most recent [...] events documented. * Anesthesia Preprocedure Evaluation - Erinn Carrera M.B.B.S. - 05/03/2024 8:01 AM CDT Preprocedure Anesthesia & H&P Assessment Procedure Summary Date/Time: 05/03/24 0800 Scheduled providers: Hal Nguyen M.D., Ph.D.; Fantasma Butt M.D. Procedure: IR CEREBRAL ARTERY ANGIOGRAM Diagnosis: Stenosis Carotid Artery Bilateral [I65.23] Stenosis Carotid Artery Bilateral [I65.23] Indications: B/L progressive in-stent carotid stenosis, possible drug coated balloon angiogplasty Location: Department of Radiology in [place], [place] Pertinent components of the patient's history [...] (+) Diabetes Mellitus Type 2 Ulcer Foot ([facility]) NEURO (+) Occlusion Carotid Artery Left (+) Stenosis Carotid Artery Right (+) Stroke ([facility]) (+) Transient Ischemic Attack Nervous (+) Seizure ([facility]) Musculoskeletal (+) Fracture Femur Shaft Closed Initial Right ([facility]) (+) Infection Total Hip Arthroplasty Initial Right ([facility]) (+) Infection Total Hip Arthroplasty Subsequent Right Sleep (+) Apnea Sleep Obstructive Other (+) Stroke Cerebrovascular Accident Personal History OBJECTIVE PHYSICAL EXAMINATION Airway (HEENT) Mallampati: III TM Distance: >3 FB Neck ROM: Full Mouth Opening: >3 cm Cardiovascular Rhythm: Regular Rate: Normal Functional Capacity: <4 METS Pulmonary Pulmonary Assessment: Clear General / Constitutional Constitutional Assessment: Obese General State of Health:: ill appearing Neurological Right sided weakness Neurologic Assessment: alert, alert and oriented x 3 and cognitive deficit Dental Dental Assessment: dentition in poor repair ASSESSMENT / PLAN ANESTHESIA PLAN ASA: 4 Anesthesia Plan: general Patient seen and allergies reviewed, anesthesia plan and risks discussed directly with patient /legal guardian or through an film vault supervisor. Risks/Benefits/Alternatives of Blood transfusion discussed with patient [...] AM CDT Clinical Communication Virtual Review in [address] [phone] 07/15/2024 10:30 AM CDT Appointment Department of Radiology, [facility], in [address] [phone] Xavi Hicks M.D. [address] [place] [phone] 07/15/2024 11:45 AM CDT Office Visit Department of Orthopedic Surgery in [address] [phone] Vel Vinson M.D., M.B.A. [address] [place] [phone] 08/10/2024 12:45 PM CDT Clinical Communication Virtual Review in [address] [phone] 08/12/2024 9:00 AM CDT Appointment Department of Radiology, [facility], in [address] [phone] Fantasma Butt M.D. [address] [place] [phone] Discharge Disposition: Home or Self Care 08/12/2024 11:00 AM CDT Office Visit Department of Radiology, [facility], in [place], [place] [address] [place] [phone] Radha Ojeda P.A.-C., M.S. [address] [place] [address] documented as of this encounter Visit Diagnoses Not on filedocumented in this encounter Administered Medications Inactive Administered Medications - up to 3 most recent administrations Medication Order MAR Action Action Date Dose Rate Site acetaminophen injection intravenous, Administer over 15 Minutes, As needed, Starting on Fri05/03/24 at 0914, Anesthesia Intra-op Given 05/03/2024 9:14 AM CDT 1,000 mg atropine injection intravenous, As needed, Starting on Fri05/03/24 at 0856, Anesthesia Intra-op Given 05/03/2024 8:58 AM CDT 0.05 mg Given 05/03/2024 8:56 AM CDT 0.05 mg ePHEDrine (PF) injection intravenous, As needed, Starting on Fri05/03/24 at 0841, Anesthesia Intra-op Given 05/03/2024 9:01 AM CDT 15 mg Given 05/03/2024 8:43 AM CDT 5 mg Given 05/03/2024 8:41 AM CDT 10 mg fentaNYL injection (Sublimaze) intravenous, As needed, Starting on Fri05/03/24 at 0916, Anesthesia Intra-op Given 05/03/2024 9:25 AM CDT 20 mcg Given 05/03/2024 9:16 AM CDT 10 mcg glycopyrrolate injection (RobinuL) intravenous, As needed, Starting on Fri05/03/24 at 0822, Anesthesia Intra-op Given 05/03/2024 8:30 AM CDT 0.2 mg Given 05/03/2024 8:22 AM CDT 0.2 mg heparin (porcine) 1,000 unit/mL injection intravenous, As needed, Starting on Fri05/03/24 at 0852, Anesthesia Intra-op Given 05/03/2024 8:52 AM CDT 6,000 Units ketorolac injection (ToradoL) intravenous, As needed, Starting on Fri05/03/24 at 0913, Anesthesia Intra-op Given 05/03/2024 9:13 AM CDT 15 mg Lactated Ringer's intravenous, Continuous Infusion: Per Instructions PRN, Starting on Fri05/03/24 at 0823, Anesthesia Intra-op New Bag 05/03/2024 8:23 AM CDT lidocaine (PF) (cardiac) injection intravenous, As needed, Starting on Fri05/03/24 at 0822, Anesthesia Intra-op Given 05/03/2024 8:22 AM CDT 60 mg ondansetron (PF) injection (Zofran) intravenous, As needed, Starting on Fri05/03/24 at 0822, Anesthesia Intra-op Given 05/03/2024 8:22 AM CDT 4 mg documented in this encounter Care Teams Sales Officer Relationship Specialty Start Date End Date Elsewhere, Pcp PCP - General Internal Medicine 10/03/23 documented as of this encounter
--- OUTSIDE RECORDS SUMMARY | 2024-06-12 07:19 | XMS_ITS | Encounter Summary ---
Author Organization [facility] Address [address] [place] [address] Care Team Providers Care Director Of Research Center Name Role Phone Elsewhere, Pcp Primary Care [...] e alcohol) [facility] Utilities Answer Date Recorded In the past [...] your living situation today? I have a [facility] place to live 01/15/2024 Sex and Gender Information Value Date Recorded Sex Assigned at Male 07/26/2022 1:30 PM CDT Legal Sex Male 6:41 AM SPRING FORGER Gender Identity Male 07/26/2022 1:32 PM CDT Sexual Orientation Straight 07/26/2022 1: 32 PM CDT documented as of this encounter Plan of Treatment Upcoming Encounters Date Type Department Care Team (Latest Contact Info) Description 07/13/2024 10:00 AM CDT Clinical Communication Virtual Review in [place], [place] [address] [place] [phone] 07/15/2024 10:30 AM CDT Appointment Department of Radiology, [facility], in [place], [place] [address] [place] [phone] Xavi Hicks M.D. [address] [place] [phone] 07/15/2024 11:45 AM CDT Office Visit Department of Orthopedic Surgery in [place], [place] [address] [place] [phone] Vel Vinson M.D., M.B.A. [address] [place] [phone] 08/10/2024 12:45 PM CDT Clinical Communication Virtual Review in [place], [place] 200 [place] [phone] 08/12/2024 9:00 AM CDT Appointment Department of Radiology, [facility] in [place], [place] [address] [place] [phone] Fantasma Butt M.D. [address] [place] [phone] Discharge Disposition: Home or Self Care 08/12/2024 11:00 AM CDT Office Visit Department of Radiology, [facility], in [place], [place] [address] [place] [phone] Radha Ojeda P.A.-C., M.S. [address] [place] [phone] documented as of this encounter Visit Diagnoses Not on filedocumented in this encounter Additional Health Concerns Infection Onset Date Last Indicated Resolved Time COVID19 Pending 01/20/2024 01/20/2024 01/20/2024 9 :04 AM SPRING FORGER documented as of this encounter Care Teams Director Of Research Center Relationship Specialty Start Date End Date Elsewhere, Pcp PCP - General Internal Medicine 10/03/23 documented as of this encounter
--- OUTSIDE RECORDS SUMMARY | 2024-06-12 07:20 | XMS_ITS | Clinical Summary ---
Author Organization [facility] [facility] Address [facility] [place] [address] Care Team Providers Care Stitcher Set Up Operator Automatic Name Role Phone Monty Hernandez MD Primary Care Provider [phone] Allergies No known active allergies Medications CPAPIndications:MICHELET (obstructive sleep apnea) autoCPAP, heated humidifier, [...] in AM, 4 units in afternoon Active carboxymethylcellul ose 0.5 % eye drops in dropperette Place 2 Drops into both eyes two times daily. Active nystatin powder (MYCOSTATIN) powder Apply topically to affected area(s) two times daily. Active pantoprazole (PROTONIX) 40 mg delayed-release tabletIndications:G astrointestinal hemorrhage, unspecified gastrointestinal hemorrhage type Take 1 Tablet (40 mg) by mouth two times daily before meals. 40 mg p.o. twice daily for 30 days, then decrease to 40 mg p.o. daily indefinitely 90 Tablet 11/06/19 24 Active polyethylene glycol (MIRALAX; GLYCOLAX) 17 g per packet packetIndications:C onstipation, unspecified constipation type Mix 17 g (1 Packet) in liquid then take by mouth once daily if needed for Constipation. 30 Packet 11/06/19 24 Active sucralfate (CARAFATE) 1 gram tabletIndications:G astrointestinal hemorrhage, unspecified gastrointestinal hemorrhage type Take 1 Tablet (1 g) by mouth four times daily before meals and at bedtime. Stop after 30 days 120 Tablet 11/06/19 24 Active Active Problems Problem Noted Date Diagnosed [...] Encounters Date Type Department Care Team Description 04/30/2024 Lab Requisition [facility] [phone] Pauline Mcbride NP 04/16/2024 Lab Requisition [facility] [phone] William Edwards MD from Last 3 Months Immunizations Immunization Administration Dates Next Due Tdap 04/27/2015 Family [...] Recorded Sex Assigned at Not on file Legal Sex Male 1:29 PM ROOMING HOUSE INSPECTOR Gender Identity Not on file Sexual Orientation [...] Hepatitis C screening for age 18-79 1983 Pneumococcal series for age 50+ (1 of 2 - PCV) 01/02/1984 Zoster (shingles) series for age 50+ (1 of 2) 2015 Depression screening for age 12+ 03/16/2016 03/16/19 16 BMI (ht and wt on same day) for age 18+ 05/03/2016 05/04/2015, 04/27/2015, 03/16/2015 COVID-19 vaccine series ( season) 2023 Influenza Vaccine (Season Ended) 2024 Colonoscopy through age 75 04/17/2025 04/18/2015 Tetanus booster 04/26/2025 04/27/2015 Lipids for age 45-75 09/22/2028 09/23/2023, 07/22/2023, 03/16/2015 Tdap Completed 04/27/2015 Procedures Procedure Name Priority Date/Time Associated Diagnosis Comments CBC WITH AUTO DIFFERENTIAL Routine 04/20/2024 8:20 AM ROOMING HOUSE INSPECTOR Acute posthemorrhagic anemia Type 2 diabetes mellitus with foot ulcer (CODE) (HC) BASIC METABOLIC PANEL Routine 04/20/2024 8:20 AM ROOMING HOUSE INSPECTOR Acute posthemorrhagic anemia Type 2 diabetes mellitus with foot ulcer (CODE) (HC) HEMOGLOBIN A1C Routine 04/20/2024 8:20 AM ROOMING HOUSE INSPECTOR Acute posthemorrhagic anemia Type 2 diabetes mellitus with foot ulcer (CODE) (HC) CBC WITH AUTO DIFFERENTIAL Routine 04/20/2024 8:20 AM ROOMING HOUSE INSPECTOR Acute posthemorrhagic anemia Type 2 diabetes mellitus with foot ulcer (CODE) (HC) LIPID PANEL Routine 09/23/2023 7:41 AM CDT Essential (primary) hypertension Elevation of levels of liver transaminase levels from Last 3 Months or Most Recently Relevant to Health Maintenance Results * (ABNORMAL) CBC WITH AUTO DIFFERENTIAL (04/20/2024 8:20 AM ROOMING HOUSE INSPECTOR) WHITE BLOOD COUNT 6.5 4.5 - 11.0 thou/cu mm 04/20/2024 9:47 AM [facility] RED BLOOD COUNT 4.41 4.30 - 5.90 mil/cu mm 04/20/2024 9:47 AM [facility] HEMOGLOBIN 12.1(L) 13.5 - 17.5 g/dL 04/20/2024 9:47 AM [facility] HEMATOCRIT 39.1 37.0 - 53.0 % 04/20/2024 9:47 AM [facility] MCV 89 80 - 100 fL 04/20/2024 9:47 AM [facility] MCH 27.4 26.0 - 34.0 pg 04/20/2024 9:47 AM [facility] MCHC 30.9(L) 32.0 - 36.0 g/dL 04/20/2024 9:47 AM [facility] RDW 14.5 11.5 - 15.5 % 04/20/2024 9:47 AM [facility] PLATELET COUNT 204 140 - 440 thou/cu mm 04/20/2024 9:47 AM [facility] MPV 11.0 6.5 - 11.0 fL 04/20/2024 9:47 AM [facility] % NEUT 46.6 % 04/20/2024 9:47 AM [facility] % LYMPH 31.1 % 04/20/2024 9:47 AM [facility] % MONO 11.7 % 04/20/2024 9:47 AM [facility] % EOS 9.2 % 04/20/2024 9:47 AM [facility] % BASO 1.4 % 04/20/2024 9:47 AM [facility] ABSOLUTE NEUTROPHILS 3.0 1.7 - 7.0 thou/cu mm 04/20/2024 9:47 AM [facility] ABSOLUTE LYMPHOCYTES 2.0 0.9 - 2.9 thou/cu mm 04/20/2024 9:47 AM [facility] ABSOLUTE MONOCYTES 0.8 <0.9 thou/cu mm 04/20/2024 9:47 AM [facility] ABSOLUTE EOSINOPHILS 0.6(H) <0.5 thou/cu mm 04/20/2024 9:47 AM [facility] ABSOLUTE BASOPHILS 0.1 <0.3 thou/cu mm 04/20/2024 9:47 AM [facility] Blood BLOOD SPECIMEN / Unknown Venipuncture / Unknown 04/20/2024 8:20 AM ROOMING HOUSE INSPECTOR 04/20/2024 9:21 AM ROOMING HOUSE INSPECTOR us William Edwards MD HEMATOLOGY Final Result [facility] [address] [place] [address] * (ABNORMAL) HEMOGLOBIN A1C (04/20/2024 8:20 AM ROOMING HOUSE INSPECTOR) HEMOGLOBIN A1C SCREENING 7.6(H) <=6.4 % 04/20/2024 9:36 AM [facility] Blood BLOOD SPECIMEN / Unknown Venipuncture / Unknown 04/20/2024 8:20 AM ROOMING HOUSE INSPECTOR 04/20/2024 9:21 AM [facility] - 04/20/2024 9:36 AM ROOMING HOUSE INSPECTOR (<5.7%) Normal (5.7% to 6.4%) Indicates prediabetes (>=6.5%) Confirms diabetes Falsely low levels may be seen with: Recent Transfusion, Recent Significant Blood Loss, Hemolytic Diseases, or Falsely elevated levels may be seen with: Untreated Anemias, Splenectomy us iWlliam Edwards MD CHEMISTRY Final Result [facility] [address] [place] [address] * (ABNORMAL) BASIC METABOLIC PANEL (04/20/2024 8:20 AM [facility]) SODIUM 138 136 - 145 mmol/L 04/20/2024 9:47 AM [facility] POTASSIUM 4.1 3.5 - 5.1 mmol/L 04/20/2024 9:47 AM [facility] CHLORIDE 100 98 - 107 mmol/L 04/20/2024 9:47 AM [facility] CO2,TOTAL 29 22 - 29 mmol/L 04/20/2024 9:47 AM [facility] ANION GAP 9 5 - 18 04/20/2024 9:47 AM [facility] GLUCOSE 216(H) 70 - 99 mg/dL 04/20/2024 9:47 AM [facility] CALCIUM 9.6 8.8 - 10.4 mg/dL 04/20/2024 9:47 AM [facility] Comment: Reference ranges for this test were updated on 12/23/2023 to reflect our healthy population more accurately. Reference range changes are not retroactively applied to results, but previous results using the same methodology can be interpreted in the context of the new reference range. BUN 20 6 - 20 mg/dL 04/20/2024 9:47 AM [facility] CREATININE 0.68(L) 0.70 - 1.20 mg/dL 04/20/2024 9:47 AM [facility] BUN/CREAT RATIO 29(H) 10 - 20 9:47 AM [facility] eGFR >90 >90 mL/min/1. 73m2 04/20/2024 9:47 AM [facility] Comment:As of 2021, eG FR is calculated by the CKD-EPI creatinine equation without race adjustment. eGFR can be influenced by muscle mass, exercise, and diet. The reported eGFR is an estimation only and is only applicable if the renal function is stable. Blood BLOOD SPECIMEN / Unknown Venipuncture / Unknown 04/20/2024 8:20 AM ROOMING HOUSE INSPECTOR 04/20/2024 9:21 AM ROOMING HOUSE INSPECTOR us William Edwards MD CHEMISTRY Final Result [facility] [address] [place] [address] * LIPID PANEL (09/23/2023 7:41 AM T) CHOLESTEROL,TOTAL 123 100 - 199 mg/dL 09/23/2023 9:[address] [facility] Comment: Cholesterol, Total Reference Ranges Desirable <200 mg/dL Borderline 200-239 mg/dL High >=240 mg/dL TRIGLYCERIDES 94 <150 mg/dL 09/23/2023 9:[address] [facility] HDL CHOLESTEROL 48 >40 mg/dL 9:[address] [facility] NON-HDL CHOLESTEROL 75 <145 mg/dl 09/23/2023 9:[address] [facility] CHOL/HDL RATIO 2.56 <4.50 09/23/2023 9:[address] [facility] LDL CHOLESTEROL 56 <=130 mg/dL 09/23/2023 9:[address] [facility] VLDL CHOLESTEROL 19 <=30 mg/dL 09/23/19 9:[address] [facility] Blood BLOOD SPECIMEN / Unknown Venipuncture / Unknown 09/23/2023 7:41 AM CDT 09/23/2023 8:46 AM CDT us Pauline Mcbride INSULATION CUPOLA OPERATOR CHEMISTRY Final Resul t [facility] [address] [place] [address] from Last 3 Months or Most Recently Relevant to Health Maintenance Insurance [facility] Advance Directives Documents on File Type Date Recorded Patient Leasing Director Expl anation POLST 06/25/2023 * Full Code (Latest Code Status on File) Date Activated Date Inactivated Comments 11/03/2023 8:15 AM 11/07/2023 1:29 PM Question Answer Comments Code Status Discussion: Reviewed Preferences Care Teams Stitcher Set Up Operator Automatic Relationship Specialty Start Date End Date Monty Hernandez MD [address] [place] [address] PCP - General Family Practice 04/18/15
--- OUTSIDE RECORDS SUMMARY | 2024-06-12 07:20 | XMS_ITS | Clinical Summary ---
Author Organization [facility] Address [address] [place] [address] Care Team Providers Care Entry Rep Name Role Phone Elsewhere, Pcp Primary Care Provider Unavailabl e Source Comments Patient records contain information from all sites at [facility]. For routine questions regarding patient records, call [phone] during business hours, M-F 8:00 AM - 5:00 PM Central Time. Record requests for emergency care only can be directed to [phone] at any time.[facility] Allergies Active Allergy Reactions Criticality Noted Date Comments Cefazolin Other (see comments) 08/25/2023 Possible increase in alkaline phosphatase please see ID notes Medications * This document contains information received from the source organization and may not represent a complete record from that organization. lancets 1 each daily. 50 each 3 Active pen needle, diabetic (BD Ultra-Fine Short Pen Needle) 31 gauge x 5/16 needle 1 Injection daily. 100 each 3 3 Active carboxymethylce llulose (REFRESH PLUS) 0.5 % ophthalmic solution Administer 2 drops into both eyes 4 (four) times a day as needed for dry eyes. 50 each 4 Active levETIRAcetam (Keppra) 100 mg/mL solution Take 7.5 mL (750 mg total) by mouth 2 (two) times a day. 4 Active aspirin 81 mg chewable tablet Chew 1 tablet (81 mg total) daily. 60 tablet 4 Active pantoprazole (Protonix) 40 mg EC tablet [...] Application topically 2 (two) times a day. 4 Active sennosides (senna) 8.6 mg tablet Take 8.6 mg by mouth 2 (two) times a day. Active acetaminophen (TylenoL) 500 mg tablet Take 2 tablets (1,000 mg total) by mouth 4 (four) times a day. 4 Active rivaroxaban (Xarelto) 10 mg tablet Take 1 tablet (10 mg total) by mouth daily. 30 tablet 11 4 01/20/20 25 Active calcium citrate-vitamin D3 (Citracal + D3) 315 mg-5 mcg (200 Unit) per tablet Take 2 tablets by mouth 2 (two) times a day. 4 Active oxyCODONE (Roxicodone) 5 mg immediate release tabletIndicatio ns:Acute Pain Exception Take 1 tablet (5 mg total) by mouth every 4 (four) hours as needed for pain Indication: Acute Pain Exception. Take 1 tablet (5 mg) if pain 5-7/10, take 2 tablets (10 mg) if pain 8-10/10 20 tablet 4 Active atorvastatin (Lipitor) 40 mg tablet Take 1 tablet (40 mg total) by mouth at bedtime. 30 tablet 4 Active amLODIPine (Norvasc) 5 mg tablet Take 1 tablet (5 mg total) by mouth daily. 30 tablet 4 Active sertraline (Zoloft) 50 mg tablet Take 50 mg by mouth daily. 4 Active insulin NPH (NovoLIN N FlexPen) 100 unit/mL (3 mL) pen Inject 12 Units under the skin every morning. 5 Active Active Problems Problem Noted Date Diagnosed Date Stenosis Carotid Artery Left 05/03/2024 Fracture Femur Shaft Closed Initial Right 2023 [...] (04/17/2020): Added automatically from request for surgery [id number] Obesity Body Mass Index 30-39.9 Adult 03/09/2020 01/05/2024 Hyponatremia 03/09/2020 07/30/2022 Hyperkalemia 03/09/2020 07/30/2022 Cellulitis 03/08/2020 03/20/2020 Cellulitis Foot Right 03/08/20202022 Diabetes Mellitus Type 2 Hyperglycemia 02/18/2017 04/17/2022 Diabetes Mellitus Type 2 Ulcer Foot 04/17/2022 Encounters Date Type Department Care Team Description 05/12/2024 Orders Only Department of Neurologic Surgery in [place], [place] [address] [place] [address] Rosalie Guerra R.N., CNRN Occlusion Carotid Artery Left (Primary Dx); Stenosis Carotid Artery Right 05/03/2024 8:08 AM CDT Anesthesia Event Department of Radiology in [place], [place] [address] [place] [address] Erinn Carrera M.B.B.S. Armour, Trygve K, M.D. 05/03/2024 6:56 AM CDT - 05/04/2024 10:51 AM CDT Hospital Encounter [facility], [facility], [facility], Ninth Floor [address] [place] [phone] Radha Ojeda P.A.-C., M.S. Hal Nguyen M.D., Ph.D. Fantasma Butt M.D. Stenosis Carotid Artery Bilateral Discharge Disposition: Longterm Facility 04/28/2024 Clinical Communication Department of Neurologic Surgery in [place], [place] [address] [place] [phone] Fantasma Butt M.D. 04/23/2024 Clinical Communication Department of Radiology in [place], [place] [address] [place] [phone] Fantasma Butt M.D. 04/23/2024 Orders Only Department of Radiology, [facility], in [place], [place] [address] [place] [phone] Radha Ojeda P.A.-C., M.S. 04/15/2024 1:00 PM WAFER SLICER Office Visit Department of Orthopedic Surgery in [address] [phone] Vel Vinson M.D., M.B.A. Fracture Femur Shaft Closed Initial Right (HCC) (Primary Dx) 04/15/2024 11:44 AM WAFER SLICER - 04/15/2024 11:59 PM WAFER SLICER Hospital Encounter Department of Radiology, [facility], in [place], [place] [address] [place] [phone] Brittney iPña, Jose Francisco IRWIN. Arthroplasty Total Hip Replacement Status Post Right Discharge Disposition: Home or Self Care 04/13/2024 2:00 PM WAFER SLICER Clinical Communication Virtual Review in [address] [phone] Pre-visit Intake 03/31/2024 Orders Only Department of Radiology, [facility], in [place], [place] [address] [place] [address] Radha Ojeda P.A.-C., MBelkisSBelkis Stenosis Carotid Artery Bilateral (Primary Dx) 03/17/2024 9:45 AM WAFER SLICER Office Visit Department of Orthopedic Surgery in [place], [place] [address] [place] [address] Ester Vann M.D. Twohey, Chelsie R, MPAS, P.A.-C. Fracture Femur Shaft Closed Initial Right (HCC) (Primary Dx) 03/17/2024 8:40 AM WAFER SLICER - 03/17/2024 11:59 PM WAFER SLICER Hospital Encounter Department of Radiology, [facility] in [place], [place] [address] [place] [phone] Lizeth Joe MPAS, P.A.-C. Fracture Femur Shaft Closed Initial Right (HCC) Discharge Disposition: Home or Self Care from Last 3 Months Immunizations Immunization Administration [...] drink = 0.6 oz pur e alcohol) [facility] Utilities Answer Date Recorded In the past 12 months has th e [employer], gas, oil, or water [employer] threatened to shut off services in your [...] living situation today? I have a [facility] place to live 01/15/2024 Sex and Gender Information Value Date Recorded Sex Assigned at Male 07/26/2022 1:30 PM CDT Legal Sex Male 6:41 AM WAFER SLICER Gender Identity Male 07/26/2022 1:32 PM CDT [...] CDT Inhaled Oxygen Concentration - - Weight 97.8 kg (215 lb 9.8 oz) 01/15/2024 9:26 A M WAFER SLICER Height 181 cm (5' 11.26) 01/15/2024 9:26 AM WAFER SLICER Body Mass Index 29.85 01/15/2024 9:26 AM WAFER SLICER Plan of Treatment Upcoming Encounters Date Type Department Care Team (Latest Contact Info) Description 07/13/2024 10:00 AM CDT Clinical Communication Virtual Review in [address] [phone] 07/15/2024 10:30 AM CDT Appointment Department of Radiology, [facility], in [address] [phone] Xavi Hicks M.D. [address] [place] [phone] 07/15/2024 11:45 AM CDT Office Visit Department of Orthopedic Surgery in [address] [phone] Vel Vinson M.D., M.B.A. [address] [place] [phone] 08/10/2024 12:45 PM CDT Clinical Communication Virtual Review in [address] [phone] 08/12/2024 9:00 AM CDT Appointment Department of Radiology, [facility], in [place], [place] [address] [place] [phone] Fantasma Butt M.D. [address] [place] [address] Discharge Disposition: Home or Self Care 08/12/2024 11:00 AM CDT Office Visit Department of Radiology, [facility], in [place], [place] [address] [place] [phone] Radha Ojeda P.A.-C., M.S. [address] [place] [address] Health Maintenance Due Date Last Done Comments CT Colonography 1965 Cologuard 1965 Hepatitis B Vaccines (1 of 3 - 19+ 3-dose series) 01/02/1984 Pneumococcal vaccine (50+ years) (1 of 2 - PCV) 01/02/1984 Zoster Vaccines (1 of 2) 2015 Diabetes Education 02/18/2017 Diabetic Office Visit with Foot Exam 03/20/2021 03/20/2020, 03/20/2020, 03/20/2020, Additional history exists COVID-19 Vaccine ( - season) 2023 Dilated Eye Exam 11/09/2023 11/08/2022 Influenza Vaccine (#1) 2023 Depression Screening (Annual PHQ-2) 02/18/2024 Urine Albumin 03/10/2024 03/10/2023, 02/0 02/2020, 06/22/2018, Additional history exists Hemoglobin A1C 10/21/2024 04/20/2024, 12/19, 01/05/2024, Additional history exists Office Visit for Blood Pressure Check / Re-check 01/04/2025 01/05/2024 DTaP,Tdap,and Td Vaccines (2 - Td or Tdap) 04/26/2025 04/27/2015 Creatinine Level (Kidney Function Test) 05/03/2025 05/03/2024, 04/20/2024, 01/18/2024, Additional history exists Lipid (Cholesterol) Screening 09/22/2028 09/23/2023, 07/22/2023, 05/24/2023, Additional history exists Colonoscopy 12/01/2028 12/02/2023, 04/21/2015 Colorectal Cancer Surveillance 12/01/2028 Hepatitis B Screening Discontinued 06/21/2023 IPV Vaccines Aged Out No longer eligi ble based on patient's age to complete this topic Medical Devices Implanted Type Area Fur Ironer Device Identifier Shelf Expiration Date Model / Serial / Lot Grft Stm Pwdr Calc Sulf 10 - [id number] Implanted:Qty: 1 on 01/16/2024 by Ester Vann M.D. at [facility] Bone Growth Stimulator Right: Femur [employer]Cloud Ltd 03/19/2026 620-010 / / [id number] Stnt Protege 0.014 5j62x718 - [id number] Implanted:Qty: 1 on 08/09/2022 by Fantasma Butt M.D. at [facility] Cardiac Stent Medtronic 02/19/2024 SECX-8-30- 135 / / [id number] Description:Carotid Stent Small Frag-Screw Yasmany 3.5x16 - [id number] Implanted:Qty: 3 on 2004 Hardware e.g. pins/screws/ rods Depuy Synthes Description:Device Manufactu rer - Synthes. Device Status Text - HARDWARE-7597. K-Wire Smooth S.S. Single 9 .062 - [id number] Implanted:Qty: 1 on 2004 Hardware e.g. pins/screws/ rods [place] Description:Device Manufactu rer - Liliane Angel.. Device [...] rer - Synthes. Device Status Text - HARDWARE-2. Syn Screw Schanz 5.0x250 - [id number] Implanted:Qty: 1 on 01/02/2004 Hardware e.g. pins/screws/ rods Depuy Synthes Description:Device Manufactu rer - Synthes. Device Status Text - HARDWARE-42605. Guide Wire-Ball Tip 3 X 800 - Amaral [id number] Implanted:Qty: 1 on 02/03/2009 Hardware e.g. pins/screws/ rods [place] Description:Device Manufactu rer - Liliane Angel.. Device Status Text - HARDWARE- 50044. [facility] Data - [id number]. Wax Bn Hmst 2.5gr - [id number] Implanted:Qty: 1 on 01/06/2024 by Vel Vinson M.D., M.B.A. at [facility] Hardware e.g. pins/screws/ rods Right: Hip Ethicon W31 / / Scrw Trl Acet Ft 6.5x30 - [id number] Implanted:Qty: 1 on 01/06/2024 by Vel Vinson M.D., M.B.A. at [facility] Hardware e.g. pins/screws/ rods Right: Hip Nori Biomet [id number] 09/23/2033 5-30 / / [id number] Scrw Trl Acet Ft 6.5x35 - [id number] Implanted:Qty: 1 on 01/06/2024 by Vel Vinson M.D., M.B.A. at [facility] Hardware e.g. pins/screws/ rods Right: Hip Nori Biomet [id number] 12/28/2032 5-35 / / [id number] Scrw Trl Acet Ft 6.5x20 - [id number] Implanted:Qty: 1 on 01/06/2024 by Vel Vinson M.D., M.B.A. at [facility] Hardware e.g. pins/screws/ rods Right: Hip Nori Biomet [id number] 08/11/2033- 5-20 / / [id number] Scrw Trl Acet Ft 6.5x40 - [id number] Implanted:Qty: 1 on 01/06/2024 by Vel Vinson M.D., M.B.A. at [facility] Hardware e.g. pins/screws/ rods Right: Hip Nori Biomet [id number] 09/11/2033 00-6250-06 5-40 / / [id number] Sleeve Cable Dia2mm Vitallium Branden Miles - [id number] Implanted:Qty: 1 on 01/06/2024 by Vel Vinson M.D., M.B.A. at [facility] Hardware e.g. pins/screws/ rods Right: Hip Liliane 05/28/2028 6704-0-510 / / [id number] Sleeve Cable Dia2mm Vitallium Branden Miles - [id number] Implanted:Qty: 1 on 01/06/2024 by Vel Vinson M.D., M.B.A. at [facility] Hardware e.g. pins/screws/ rods Right: Hip [place] 05/28/2028 6704-0-510 / / [id number] Sleeve Cable Dia2mm Vitallium Branden Miles - [id number] Implanted:Qty: 1 on 01/06/2024 by Vel Vinson M.D., M.B.A. at [facility] Hardware e.g. pins/screws/ rods Right: Hip Liliane 02/22/2028 6704-0-510 / / [id number] Sleeve Cable Dia2mm Vitallium Branden Miles - [id number] Implanted:Qty: 1 on 01/06/2024 by Vel Vinson M.D., M.B.A. at [facility] Hardware e.g. pins/screws/ rods Right: Hip Liliane 04/28/2028 6704-0-510 / / [id number] Sleeve Cable Dia2mm Vitallium Branden Miles - [id number] Implanted:Qty: 1 on 01/06/2024 by Vel Vinson M.D., M.B.A. at [facility] Hardware e.g. pins/screws/ rods Right: Hip Liliane 04/28/2028 6704-0-510 / / [id number] Wre Fix Lq Ss Closed 1.2x30 - [id number] Implanted:Qty: 2 on 01/06/2024 by Vel Vinson M.D., M.B.A. at [facility] Hardware e.g. pins/screws/ rods Right: Hip Nori Biomet 00-1292-06 1-00 / / 3.5/4.5mm Va-Lcp Ppfx Proximal Femur Plate, Right, 12 Holes, 388mm Implanted:Qty: 1 on 01/16/2024 by Ester Vann M.D. at [facility] Hardware e.g. pins/screws/ rods Right: Femur Depuy Synthes 02.221.130 S / / Cbl Grp Cerclg Crmp Ss 1.7x750 - [id number] Implanted:Qty: 1 on 01/16/2024 by Ester Vann M.D. at [facility] Hardware e.g. pins/screws/ rods Right: Femur Depuy Synthes 09/16/2028 298.801.01 S / / [id number] Cbl Grp Cerclg Crmp Ss 1.7x750 - [id number] Implanted:Qty: 1 on 01/16/2024 by Ester Vann M.D. at [facility] Hardware e.g. pins/screws/ rods Right: Femur Depuy Synthes 09/16/2028 298.801.01 S / / [id number] Cbl Grp Cerclg Crmp Ss 1.7x750 - [id number] Implanted:Qty: 1 on 01/16/2024 by Ester Vann M.D. at [facility] Hardware e.g. pins/screws/ rods Right: Femur Depuy Synthes 09/16/2028 298.801.01 S / / [id number] 3.5mm Variable Angle Loking Screw, 32mm Implanted:Qty: 1 on 01/16/2024 by Ester Vann M.D. at [facility] Hardware e.g. pins/screws/ rods Right: Femur Depuy Synthes 02.127.132 / / 3.5mm Variable Angle Loking Screw, 60mm Implanted:Qty: 1 on 01/16/2024 by Ester Vann M.D. at [facility] Hardware e.g. pins/screws/ rods Right: Femur Depuy Synthes 02.127.160 / / 3.5mm Variable Angle Loking Screw, 65mm Implanted:Qty: 1 on 01/16/2024 by Ester Vann M.D. at [facility] Hardware e.g. pins/screws/ rods Right: Femur Depuy Synthes 02.127.165 / / 3.5mm Cortex Screw, 28mm Implanted:Qty: 1 on 01/16/2024 by Ester Vann M.D. at [facility] Hardware e.g. pins/screws/ rods Right: Femur Depuy Synthes 02.200.028 / / 3.5mm Cortex Screw, 50mm Implanted:Qty: 1 on 01/16/2024 by Ester Vann M.D. at [facility] Hardware e.g. pins/screws/ rods Right: Femur Depuy Synthes 02.200.050 / / 3.5mm Cortex Screw, 60mm Implanted:Qty: 1 on 01/16/2024 by Ester Vann M.D. at [facility] Hardware e.g. pins/screws/ rods Right: Femur Depuy Synthes 02.200.060 / / 5.0mm Variable Angle Locking Screw, 46mm Implanted:Qty: 1 on 01/16/2024 by Ester Vann M.D. at [facility] Hardware e.g. pins/screws/ rods Right: Femur Depuy Synthes 02.231.246 / / 4.5mm Cortex Screw, 40mm Implanted:Qty: 1 on 01/16/2024 by Ester Vann M.D. at [facility] Hardware e.g. pins/screws/ rods Right: Femur Depuy Synthes 214.840 / / 4.5mm Cortex Screw, 50mm Implanted:Qty: 1 on 01/16/2024 by Etser Vann M.D. at [facility] Hardware e.g. pins/screws/ rods Right: Femur Depuy Synthes 214.850 / / 4.5mm Cortex Screw, 76mm Implanted:Qty: 1 on 01/16/2024 by Ester Vann M.D. at [facility] Hardware e.g. pins/screws/ rods Right: Femur Depuy Synthes 214.876 / / 5.0mm Variable Angle Locking Screw, 55mm Implanted:Qty: 1 on 01/16/2024 by Ester Vann M.D. at [facility] Hardware e.g. pins/screws/ rods Right: Femur Depuy Synthes 02.231.255 / / Shell Acetab G7 Multi Hl 62mm - [id number] Implanted:Qty: 1 on 01/06/2024 by Vel Vinson M.D., M.B.A. at [facility] Hip Implant Right: Hip Nori Biomet 04/04/2033 [id number] / / [id number] Lnr G7 Szh 50 - [id number] Implanted:Qty: 1 on 01/06/2024 by Vel Vinson M.D., M.B.A. at [facility] Hip Implant Right: Hip Nori Biomet 08/27/2033 925671899 / / [id number] Hip Dist Stem 28q901di - [id number] Implanted:Qty: 1 on 01/06/2024 by Vel Vinson M.D., M.B.A. at [facility] Hip Implant Right: Hip En[employer] Angel 09/05/2025 495-24-210 / / [id number] Hip Prox Body 85mm Lat Offset - [id number] Implanted:Qty: 1 on 01/06/2024 by Vel Vinson M.D., M.B.A. at [facility] Hip Implant Right: Hip [employer] Angel 11/20/2028 495-01-085 / / [id number] Lnr Act Art 79a55yw - [id number] Implanted:Qty: 1 on 01/06/2024 by Vel Vinson M.D., M.B.A. at [facility] Hip Implant Right: Hip Nori Biomet 08/23/2028 [id number] / / [id number] Fem Hd +7ofst 28 - [id number] Implanted:Qty: 1 on 01/06/2024 by Vel Vinson M.D., M.B.A. at [facility] Hip Implant Right: Hip Nori Biomet 07/17/2029 203203327 / / [id number] Stnt Zilver 518 8x80 - [id number] Implanted:Qty: 1 on 05/24/2023 by Almaz Olea M.D. at [facility] Vascular Stent [employer] 02/24/2026 [id number] / / [id number] Explanted Type Area Fur Ironer Device Identifier Shelf Expiration Date Model / Serial / Lot Cmnt Bn Smp 40gm - [id number] Implanted:Qty: 1 on 05/23/2023 by Vel Vinson M.D., M.B.A. at [facility] Explanted:Qty: 1 on 01/06/2024 by Vel Vinson M.D., M.B.A. at [facility] Bone Cement Right: Hip [place] 6191-1-001 / / Cmnt Bn Smp 40gm - [id number] Implanted:Qty: 1 on 05/23/2023 by Félix Mckeon M.D. at [facility] Explanted:Qty: 1 on 01/06/2024 by Vel Vinson M.D., M.B.A. at [facility] Bone Cement Right: Hip [place] 6191-1-001 / / Cmnt Bn Smp 40gm - [id number] Implanted:Qty: 1 on 05/23/2023 by Félix Mckeon M.D. at [facility] Explanted:Qty: 1 on 01/06/2024 by Vel Vinson M.D., M.B.A. at [facility] Bone Cement Right: Hip Liliane 6191-1-001 / / Screw-Hgpii S-Tap 6.5 X 15mm - [id number] Implanted:Qty: 1 on 02/03/2009 Explanted:Qty: 1 on 05/23/2023 by Vel Vinson M.D., M.B.A. at [facility] Hardware e.g. pins/screw s/rods Nori Biomet Description:Device Manufactu rer - Nori. Device Status Text - HARDWARE-64472. Small Frag-Screw Yasmany 3.5x12 - [id number] Implanted:Qty: 1 on 01/02/2004 Explanted:Qty: 1 on 05/23/2023 by Vel Vinson M.D., M.B.A. at [facility] Hardware e.g. pins/screw s/rods Depuy Synthes Description:Device Manufactu rer - Synthes. Device Status Text - HARDWARE-7595. Small Frag-Screw Yasmany 3.5x16 - [id number] Implanted:Qty: 2 on 01/02/2004 Explanted:Qty: 2 on 05/23/2023 by Vel Vinson M.D., M.B.A. at [facility] Hardware e.g. pins/screw s/rods Depuy Synthes Description:Device Manufactu rer - Synthes. Device Status Text - HARDWARE-7597. Pelvic Re-Plate Cvd 3.5x 6ho - [id number] Implanted:Qty: 1 on 01/02/2004 Explanted:Qty: 1 on 05/23/2023 by Félix Mckeon M.D. at [facility] Hardware e.g. pins/screw s/rods Depuy Synthes Description:Device Manufactu rer - Synthes. Device Status Text - HARDWARE-7366. Right Hip Screw-Hgpii S-Tap 6.5 X 30mm - [id number] Implanted:Qty: 2 on 02/03/2009 Explanted:Qty: 2 on 05/23/2023 by Vel Vinson M.D., M.B.A. at [facility] Hardware e.g. pins/screw s/rods Nori Biomet Description:Device Manufactu rer - Nori. Device Status Text - HARDWARE-54202. Screw-Hgpii S-Tap 6.5 X 35mm - [id number] [id number] Implanted:Qty: 1 on 02/03/2009 Explanted:Qty: 1 on 05/23/2023 by Vel Vinson M.D., M.B.A. at [facility] Hardware e.g. pins/screw s/rods Nori Biomet Description:Device Manufactu rer - Nori. Device Status Text - HARDWARE-44158. 6.5 Saniya Screw-16mm Thread 65 - [id number] Implanted:Qty: 1 on 01/02/2004 Explanted:Qty: 1 on 05/23/2023 by Vel Vinson M.D., M.B.A. at [facility] Hardware e.g. pins/screw s/rods Depuy Synthes Description:Device Manufactu rer - Synthes. Device Status Text - HARDWARE-60287. Implex-Shell Hedro 54mm - [id number] [id number] Implanted:Qty: 1 on 02/03/2009 Explanted:Qty: 1 on 05/23/2023 by Vel Vinson M.D., M.B.A. at [facility] Hip Implant Other/Legacy - See Implant Description Nori Biomet Description:Device Manufactu rer - Nori. Body Location - Other. Right. Device Status Text - HIP IMP-813109. [place]-Stem [place] 8 Hi - [id number] [id number] Implanted:Qty: 1 on 02/03/2009 Explanted:Qty: 1 on 05/23/2023 by Vel Vinson M.D., M.B.A. at [facility] Hip Implant Other/Legacy - See Implant Description [employer] Description:Device Manufactu rer - [employer]. Body Location - Other. Right. Device Status Text - HIP IMP-867254. Nori Liner 0 Degree 32 X 54m - [id number] Implanted:Qty: 1 on 02/03/2009 Explanted:Qty: 1 on 05/23/2023 by Vel Vinson M.D., M.B.A. at [facility] Hip Implant Other/Legacy - See Implant Description Nori Biomet Description:Device Manufactu rer - Nori. Body Location - Other. Right. Device Status Text - HIP IMP-170190. Dep. Head Prodigy 32 + 1.0 - [id number] [id number] Implanted:Qty: 1 on 02/03/2009 Explanted:Qty: 1 on 05/23/2023 by Vel Vinson M.D., M.B.A. at [facility] Hip Implant Other/Legacy - See Implant Description Ar[employer]is Description:Device Manufactu rer - J & J Ortho. Body Location - Other. Right. Device Status Text - HIP IMP-418289. Hip Stm Prs Cmnt Rt 3 200 - [id number] Implanted:Qty: 1 on 05/23/2023 by Félix Mckeon M.D. at [facility] Explanted:Qty: 1 on 01/06/2024 by Vel Vinson M.D., M.B.A. at [facility] Hip Implant Right: Hip Depuy Synthes 08/16/2032 [id number] / / [id number] Lnr Emp Aox Std +4 40x54 - [id number] Implanted:Qty: 1 on 05/23/2023 by Félix Mckeon M.D. at [facility] Explanted:Qty: 1 on 01/06/2024 by Vel Vinson M.D., M.B.A. at [facility] Hip Implant Right: Hip Depuy Synthes 02/16/2027 0 / / [id number] Fem Hd Art +12ofst 40 - [id number] Implanted:Qty: 1 on 05/23/2023 by Vel Vinson M.D., M.B.A. at [facility] Explanted:Qty: 1 on 01/06/2024 by Vel Vinson M.D., M.B.A. at [facility] Hip Implant Right: Hip Depuy Synthes 02/16/2033 0 / / [id number] Procedures Procedure Name Priority Date/Time Associated Diagnosis [...] 9:38 AM CDT IR CEREBRAL INTRACRANIAL ARTERY CODE INSPECTOR RAD - Routine (most inpatients and all outpatients) 05/03/2024 9:33 AM CDT Stenosis Carotid Artery Bilateral ACT, POCT, B Routine 05/03/2024 9:09 AM CDT CREATININE, POCT, B Routine 05/03/2024 7 :48 AM CDT CREATININE, POCT, B Routine 05/03/2024 7 :48 AM CDT GLUCOSE POCT, B Routine 05/03/2024 7:38 AM CDT DX HIP AND PELVIS RIGHT 2-3 VIEWS RAD - Routine (most inpatients and all outpatients) 04/15/2024 12:08 PM WAFER SLICER Arthroplasty Total Hip Replacement Status Post Right DX FEMUR RIGHT 2 VIEWS RAD - Routine (most inpatients and all outpatients) 03/17/2024 9:04 AM WAFER SLICER Fracture Femur Shaft Closed Initial Right (HCC) HEMOGLOBIN A1C, B Routine 01/07/2024 3:3 5 AM WAFER SLICER COLONOSCOPY Routine 12/02/2023 11:10 AM CDT HEPATITIS B SURFACE ANTIGEN Routine 06/21/2023 4:18 PM CDT LIPID PANEL, S STAT 05/24/2023 5:59 AM CDT ALBUMIN, RANDOM, U Routine 03/10/2023 11:30 AM [facility] Diabetes Mellitus Type 2 Ulcer Foot Hyperglycemic (HCC) from Last 3 Months or Most Recently Relevant to Health Maintenance Results * (ABNORMAL) Glucose, POCT (05/04/2024 8:22 AM CDT) Only the most recent of6 resultswithin the time period is included. Pathologist [facility] Glucose, POCT, B 171(H) 70 - 140 mg/dL 05/04/2024 8:29 AM CDT PCLX Site Capillary 05/04/2024 8:29 AM CDT PCLX Blood 05/04/2024 8:22 AM CDT 05/04/2024 8:30 AM CDT us Unknown Provider LAB POCT ORDERABLES-MANUAL Cata l Result POC [facility] [address] [place] [address], [facility] PCLX [facility] [place] POC [address] [place] [address] * SARS Coronavirus 2, PCR Rapid Symptomatic (05/03/2024 7:04 PM CDT) [facility] SARS CoV-2, PCR, Rapid, V Undetected Undetected 05/03/2024 7:27 PM CDT [facility] SARS Coronavirus 2, Rapid, Source Swab, Nasopharynx 05/03/2024 7:04 PM CDT [facility] Swab (Nasopharynx) 05/03/2024 7:04 PM CDT 05/03/2024 7:04 PM CDT us Krista Cash APRN, C. N.P., D.N.P., M.S.N. LAB MICROBIOLOGY - GENERAL ORDERABLES Final Result [facility] [address] [place] [address], [facility] [address] [place] [address] * US Carotid Left (05/03/2024 10:58 AM [...] distal ICA in accordance with [place] Symptomatic Carotid Endarterectomy Trial (NASCET). Procedure Note [...] left ICA in-stent stenosis us Radha Ojeda P.A.-C. M.SBelkis IMG US PROCEDURES Fi nal Result * IR Cerebral Intracranial Artery CODE INSPECTOR (05/03/2024 9:33 AM CDT) Anatomical Region Laterality [...] AM CDT EXAM: IR CEREBRAL INTRACRANIAL ARTERY CODE INSPECTOR COMPARISON: Ultrasound carotid artery bilateral February 19, [...] Seldinger technique with insertion of a 7 Bhutanese sheath into the right radial artery. 6000 units of heparin was administered intravenously and an ACT was checked approximately 5 minutes thereafter. 5 mg of verapamil was flushed through the sheath. A Van 2 catheter over stiff Glidewire was navigated [...] - 05/04/2024 EXAM: IR CEREBRAL INTRACRANIAL ARTERY CODE INSPECTOR COMPARISON: Ultrasound carotid artery bilateral February 19, [...] viaSeldinger technique with insertion of a 7 Bhutanese sheath into the rightradial artery. 6000 units of heparin was administered intravenously and an ACT was checked approximately 5minutes thereafter. 5 mg of verapamil was flushed through the sheath. ASimmons 2 catheter over stiff Glidewire was navigated [...] Clotting Time), POCT (05/03/2024 9:09 AM CDT) Activated Clotting Time, POCT 311(H) 84 - 139 sec 05/03/2024 12:34 PM CDT PCSM Blood 05/03/2024 9:09 AM CDT 05/03/2024 12:34 PM CDT us Unknown Provider LAB POCT ORDERABLES - DEVICE Fi nal Result Performing Organization Address [facility] de Phone Number [facility] [address] PCSM [facility] POC [address] [place] [id number] * Creatinine, POCT (05/03/2024 7:48 AM CDT) Only the most recent of2 resultswithin the time period is included. Creatinine, POCT, B 0.8 0.7 - 1.4 mg/dL 05/03/2024 7:50 AM CDT PCDT Comment: ----ADDITIONAL INFORMATION---- Performed at the Point of Care Blood 05/03/2024 7:48 AM CDT 05/03/2024 7:50 AM CDT us Unknown Provider LAB POCT ORDERABLES - DEVICE Fi nal Result Performing Organization Address [facility] de Phone Number [facility] [address] [place], [place] [address] PCDT [facility] POC [address] [place] [address] * DX Hip And Pelvis Right 2-3 Views (04/15/2024 12:08 PM WAFER SLICER) Anatomical Region Laterality Modality Lower Extremity, Pelvis, Hip , Musculoskeletal RST LOS, Musculoskeletal ARZ LOS, Muskuloskeletal FLA LOS Right Digit al Radiography Impressions 04/15/2024 12:14 PM WAFER SLICER Revision right total hip arthroplasty with long-stem femoral component. Lateral plate and screw fixation across a healing periprosthetic fracture of the distal femoral shaft. Persistent linear lucency is present at segments of the fracture line. No hardware failure. Postoperative deformity right hemipelvis. Degenerative changes lower lumbar spine and both sacroiliac joints. Narrative 04/15/2024 12:14 PM WAFER SLICER EXAM: DX HIP AND PELVIS RIGHT 2-3 VIEWS Procedure Note Werner Hernandez M.D. - 04/15/2024 EXAM: DX HIP AND PELVIS RIGHT 2-3 VIEWS IMPRESSION: Revision right total hip arthroplasty with long-stem femoral component.Lateral plate and screw fixation across a healing periprosthetic fractureof the distal femoral shaft. Persistent linear lucency is present atsegments of the fracture line. No hardware failure. Postoperative deformity right hemipelvis. Degenerative changes lower lumbar spine and both sacroiliac joints. Brittney IRWIN, P.A.-C. IMG DIAGNOSTIC IMAGI NG PROCEDURES Final Result * DX Femur Right 2 Views (03/17/2024 9:04 AM WAFER SLICER) Anatomical Region Laterality Modality Lower Extremity, Femur, Musc uloskeletal RST LOS, Musculoskeletal ARZ LOS, Muskuloskeletal FLA LOS Right Digit al Radiography Impressions 03/17/2024 9:07 AM WAFER SLICER As demonstrated on the 01/16/2024 radiographs, postoperative changes of plate and screw fixation across a mildly displaced periprosthetic fracture of the mid to distal femur. Alignment is unchanged. The fracture remains apparent. Antibiotic beads have been removed. Again seen is a long-stem ISRRAEL, which is unchanged. Narrative 03/17/2024 9:07 AM WAFER SLICER EXAM: DX FEMUR RIGHT 2 VIEWS Procedure Note Leodan Doty M.D. - 03/17/2024 EXAM: DX FEMUR RIGHT 2 VIEWS IMPRESSION: As demonstrated on the 01/16/2024 radiographs, postoperative changes ofplate and screw fixation across a mildly displaced periprosthetic fractureof the mid to distal femur. Alignment is unchanged. The fracture remainsapparent. Antibiotic beads have been removed. Again seen is a long-stem ISRRAEL, which isunchanged. Lizeth IRWIN, P.A.-C. IMG DIAGNOSTIC IM AGING PROCEDURES Final Result * Colonoscopy (12/02/2023 11:10 AM CDT) 12/02/2023 11:1 0 AM CDT Impressions [employer] - 12/02/2023 12:40 PM CDT Post-op Diagnoses: - Preparation of the colon was inadequate. - The examined portion of the ileum was normal. NO evidence of recent GI bleeding. - A single (solitary) ulcer at the splenic flexure. Biopsied. Tattooed. - Non-bleeding external and internal hemorrhoids. Narrative [employer] - 12/02/2023 12:40 PM CDT William [...] bowel preparation was evaluated using the BBPS ([place] Bowel Preparation Scale) with scores of: Right [...] ORDERABL ES Final Result Performing Organization Address [facility] Co de Phone Number [facility] NA * Hepatitis B Surface Antigen (06/21/2023 4:18 PM CDT) HBs Antigen, S Negative Negative 06/23/2023 11:08 AM CDT [facility] Blood (Blood, Peripheral Draw) 06/21/2023 4:18 PM CDT 06/23/2023 7:24 AM CDT Lachelle Crawford M.D. LAB MICROBIOLOGY - BLOOD LÓPEZ KNOWLES Final Result Performing Organization Address City/[facility] Co de Phone Number [facility] [address] [place] [address] [facility] [address] [place] [address] * (ABNORMAL) Lipid Panel (05/24/2023 5:59 AM [...] M.D. LAB BLOOD ADD-ON Final R esult [facility] [address] [place] [address], [facility] [address] [place] [address] * Albumin, Random, Urine (03/10/2023 11:30 AM WAFER SLICER) Microalbumin <12.0 mg/L 03/10/2023 11:54 AM WAFER SLICER RDWG Comment:If clinically indica faviola, contact the lab for additional testing. Creatinine 112 mg/dL 03/10/2023 11:54 AM WAFER SLICER RDWG Albumin/Creatinine Ratio <11 <17 mg/g 03/10/2023 11:54 AM WAFER SLICER RDWG Comment: This ratio may not correspond with the reference range because one or both of the values used to calculate the ratio was above or below the quantification limits. Urine (Urine, Midstream) 03/10/2023 11:30 AM WAFER SLICER 03/10/2023 11:30 AM WAFER SLICER Doug Lima M.D. LAB URINE ORDERABLES Final R esult [facility] [address] [place] [address], [facility] RDWG [facility] [place] [address] [place] [address] from Last 3 Months or Most Recently Relevant to Health Maintenance Insurance [facility] [id number] [employer] FOR MEDICAID PRODUCTS Advance Directives For more information, please contact: [phone] Documents on File Type Date Recorded Patient Code Inspector Expl anation Advance Directives 01/15/2024 10:52 AM PO LST/MOLST * Full Code (Latest Code Status on File) Date Activated Date Inactivated Comments 05/03/2024 9:40 AM 05/04/2024 1:02 PM Question Answer Comments Full Code: Not Discussed Due to: Patient not available * Full Code Date Activated Date Inactivated Comments 01/15/2024 9:26 [...] Name Relationship Healthcare Agent Relationship Communication [facility] Agent Annamaria Riley [facility] Health Care Agent Care Teams Entry Rep Relationship Specialty Start Date End Date Elsewhere, Pcp PCP - General Internal Medicine 10/03/23
--- OUTSIDE RECORDS SUMMARY | 2024-06-12 07:20 | XMS_ITS ---
Author Organization [facility] Address [address] [place] [address] Care Team Providers Care Assurance Auditor Name Role Phone Elsewhere, Pcp Primary Care Provider Unavailabl e OPAT Status:Pending (Paused) Start date:05/27/2023 Enrollment date:06/06/2023 Related service episodes:Adult OPAT Service Episode (Declined) Continued Care and Services Coordination
--- NOTE | 2024-06-12 07:46 | CRLHL7_ITS ---
For Patients: As a result of the Century Cures Act, medical imaging exams and procedure reports are released immediately into your electronic medical record. You may view this report before your referring provider. If you have questions, please contact your health care provider. INDICATION: Shortness of breath. TECHNIQUE: Chest 1 views. COMPARISON: March 04, 2024. FINDINGS: Cardiovasculature and mediastinum: Heart size is normal. Unremarkable mediastinum. Lungs and pleural spaces: Lungs are clear. No sign of infiltrate or mass. No sign of pleural effusion. No pneumothorax. Bones and soft tissues: No significant findings. IMPRESSION: Negative chest. No specific findings to explain shortness of breath. Dictated by Stanley Green MD @ 06/12/2024 8:20:30 AM (Electronically Signed)
--- NOTE | 2024-06-12 07:47 | ED_ITS ---
HPI - General Adult General Chief complaint: Fever Stated complaint: low oxygen/fever Time Seen by Provider: 06/12/24 07:41 History of Present Illness HPI narrative: This 59-year-old male comes in from a care facility. He resides there to manage late affects of a stroke and chronic atrial fibrillation. He comes in because of shortness of breath. EMS noted that he was hypoxic and hypotensive. He arrives here with oximetry at 92% on room air and his systolic blood pressures in the 90s. The patient states that he does not normally use oxygen. He states that he is typically mobile with the assistance of a wheelchair. There is no report of fever. Related Data Home Medications ?Medication ?Instructions ?Recorded ?Confirmed aspirin 81 mg chewable tablet 1 tab PO DAILY 11/03/23 03/04/24 oxycodone 5 mg tablet 5 - 10 mg PO Q4H PRN pain 11/03/23 03/05/24 rivaroxaban 10 mg tablet (Xarelto) 10 mg PO DAILY 11/03/23 03/04/24 amlodipine 5 mg tablet 5 mg PO DAILY 03/04/24 03/04/24 atorvastatin 40 mg tablet 40 mg PO HS 03/04/24 03/05/24 cefadroxil 500 mg capsule 500 mg PO BID 03/04/24 03/04/24 insulin NPH isoph U-100 human 100 8 unit subcut QAM With meal 03/04/24 03/04/24 unit/mL (3 mL) subcutaneous pen (Novolin N FlexPen) levetiracetam 100 mg/mL oral 750 mg PO BID 03/04/24 03/05/24 solution pantoprazole 40 mg tablet,delayed 40 mg PO DAILY 03/04/24 03/04/24 release sertraline 50 mg tablet 50 mg PO DAILY 03/04/24 03/04/24 acetaminophen 500 mg tablet 1,000 mg PO TID 03/05/24 03/05/24 calcium 315 mg (as 1 tab PO BID 03/05/24 03/05/24 citrate)-vitamin D3 6.25 mcg (250 unit) tablet carboxymethylcellulose sodium 0.5 2 drp ophthalmic (eye) QID PRN 03/05/24 03/05/24 % eye drops in a dropperette (Lubricant Eye Drops) nystatin 100,000 unit/gram topical 1 applic topical BID 03/05/24 03/05/24 cream polyethylene glycol 3350 17 17 g PO DAILY 03/05/24 03/05/24 gram/dose oral powder sennosides 8.6 mg tablet (senna) 8.6 mg PO BID 03/05/24 03/05/24 Previous Rx's ?Medication ?Instructions ?Recorded oseltamivir 75 mg capsule 75 mg PO Q12H 3 days #7 caps 03/07/24 doxycycline hyclate 100 mg capsule 100 mg PO BID 7 days #14 caps 06/12/24 Allergies Allergy/AdvReac Type Severity Reaction Status Date / Time No Known Drug Allergies Allergy Verified 03/04/24 19:32 Review of Systems Status of ROS: Reports: 10 or more systems reviewed and unremarkable except as noted in History and below Narrative: Constitutional: No fevers, no weight gain or loss. Eyes: No discharge. No vision changes. HENT: No congestion, no sore throat, no ear pain. Cardiovascular: No chest pain, no palpitations. Respiratory: Shortness of breath. Occasional cough. Gastrointestinal: No abdominal pain, no vomiting, no diarrhea. Genitourinary: No dysuria, no hematuria. Musculoskeletal: Normal range of motion. Skin: No rashes, no pruritis. Neurological: No dizziness, weakness, sensory change, speech change. Endo/Heme/Allergies: No bruising or bleeding. No polydipsia. Pysch: no suicidality, no anxiety, no insomnia. All other systems reviewed and are negative. [facility] Medical History (Updated 06/12/24 @ 10:29 by Asad Howard MD) Medication refused ?Z53.20 - Procedure and treatment not carried out because of patient's decision for unspecified reasons (ICD-10) Lung nodule ?R91.1 - Solitary pulmonary nodule (ICD-10) Cholelithiasis ?K80.20 - Calculus of gallbladder without cholecystitis without obstruction (ICD-10) Influenza A ?J10.1 - Influenza due to other identified influenza virus with other respiratory manifestations (ICD-10) History of upper gastrointestinal bleeding ?Z87.19 - Personal history of other diseases of the digestive system (ICD-10) Chronic anticoagulation ?Z79.01 - alf (current) use of anticoagulants (ICD-10) Afib ?I48.91 - Unspecified atrial fibrillation (ICD-10) Stroke ?I63.9 - Cerebral infarction, unspecified (ICD-10) Surgical History (Updated 03/15/24 @ 00:01 by Background Daemon) H/O total hip arthroplasty ?Z96.649 - Presence of unspecified artificial hip joint (ICD-10) Social History What is your current living situation?: I presently have a place to live Problems where you live: no known problems Problems where you live details: n/a In the past 12 months, utilities in danger of being shut off: no In past 12 months, lack of transportation kept you from medical appts, meetings, work, or getting things needed for daily living: no In the past 12 mos, have been you worried that your food would run out before you had money to buy more?: never true In the past 12 mos, the food you bought just didn't last and you didn't have money to buy more?: never true Highest level of school completed/degree received: high school graduate Smoking Status: Never smoker How often do you have a drink containing alcohol: never AUDIT-C Alcohol total score: 0 Non-prescribed substance use: denies use Caffeine: Yes How often does anyone, including family, friends and others, physically hurt you : never How often does anyone, including family, friends and others, insult or talk down to you: never How often does anyone, including family, friends and others, threaten you with harm: never How often does anyone, including family, friends and others, scream or curse at you: never service: Yes Exam Narrative: Exam Narrative: Constitutional: Well-developed, well-nourished, no acute distress. HEENT: Normocephalic, atraumatic. Neck: Normal range of motion. Nontender. Supple. Heart: Regular. No murmurs. Normal rate. Intact distal pulses. Lungs: Clear to auscultation. No chest discomfort. No wheezes, rhonchi, or rales. Abdomen: Normal bowel sounds. Nontender. No rebound tenderness. Genitalia: Deferred. Back: No midline tenderness. Normal range of motion. Extremities: Normal range of motion. No injury. Skin: Intact. No rash. Warm. No erythema or pallor. Neurologic: No altered sensation. No weakness. Alert and oriented. Nursing notes and vitals signs are reviewed. Const: Vital Signs, click to edit/add: Vital Signs - 24 hr 06/12/24 07:24 06/12/24 07:32 06/12/24 07:37 Temperature 99.2 F Pulse Rate 73 73 Pulse Rate [Pulse Oximeter] 74 Respiratory Rate 20 14 12 Blood Pressure 87/62 L 92/62 Blood Pressure [Ri ght Upper Arm] 92/52 L Pulse Oximetry 92 91 90 Oxygen Delivery Me thod Room Air Oxygen Flow Rate 06/12/24 07:42 06/12/24 07:45 06/12/24 08:02 Temperature Pulse Rate 73 72 72 Pulse Rate [Pulse Oximeter] Respiratory Rate 12 Blood Pressure 94/67 97/66 Blood Pressure [Ri ght Upper Arm] Pulse Oximetry 91 92 92 Oxygen Delivery Me thod Nasal Cannula Oxygen Flow Rate 1 06/12/24 08:31 06/12/24 08:56 06/12/24 09:31 Temperature Pulse Rate 72 69 69 Pulse Rate [Pulse Oximeter] Respiratory Rate 12 14 14 Blood Pressure 109/70 97/60 99/71 Blood Pressure [Ri ght Upper Arm] Pulse Oximetry 95 95 93 Oxygen Delivery Me thod Oxygen Flow Rate 06/12/24 09:54 06/12/24 09:56 Temperature Pulse Rate 67 Pulse Rate [Pulse Oximeter] Respiratory Rate 14 Blood Pressure 108/66 Blood Pressure [Ri ght Upper Arm] Pulse Oximetry 95 Oxygen Delivery Me thod Nasal Cannula Oxygen Flow Rate 1 Course Vital Signs Vital signs: Initial Vital Signs Temperature 99.2 F 06/12/24 07:24 Temperature Source Oral 06/12/24 07:24 Pulse Rate 74 06/12/24 07:24 Respiratory Rate 20 06/12/24 07:24 Blood Pressure 92/52 L 06/12/24 07:24 Blood Pressure Mean 65 L 06/12/24 07:24 Pulse Oximetry 92 06/12/24 07:24 Oxygen Delivery Method Room Air 06/12/24 07:24 Vital Signs Temperature 99.2 F 06/12/24 07:24 Pulse Rate 74 06/12/24 07:24 Respiratory Rate 20 06/12/24 07:24 Blood Pressure 92/52 L 06/12/24 07:24 Pulse Oximetry 92 06/12/24 07:24 Oxygen Delivery Method Room Air 06/12/24 07:24 Temperature 99.2 F 06/12/24 07:24 Pulse Rate 67 06/12/24 09:54 Respiratory Rate 14 06/12/24 09:54 Blood Pressure 108/66 06/12/24 09:54 Pulse Oximetry 95 06/12/24 09:54 Oxygen Delivery Method Nasal Cannula 06/12/24 09:56 Oxygen Flow Rate 1 06/12/24 09:56 Medical Decision Making MDM Narrative Medical decision making narrative: This patient comes in from a care facility because of shortness of breath and he states that he has an occasional cough. He arrives here with oximetry at 92% on room air. He did receive some oxygen by nasal cannula which improved his oximetry to around 95%. I turned the oxygen off and continues with oximetry at 92%. Chest x-ray is obtained and shows no acute findings. Labs also are acquired and are reassuring except there is an increase in his white blood count. His nasal pharyngeal swab is negative for viruses tested. The patient does not have any tenderness in his abdomen and has normal exam otherwise. He is on anticoagulants chronically because of history of stroke and atrial fibri llation. He does not describe any symptoms of discomfort. The patient did receive IV fluids. He is okay to be discharged home back to his care facility. He did receive an oral dose of doxycycline here and a prescription for the same as I decided to treat his leukocytosis despite finding no obvious cause of infection. He is not using accessory muscles for breathing and his lungs sound clear on exam. Lab Data Labs: Lab Results 06/12/24 06/12/24 06/12/24 Range/Units 07:47 08:00 08:04 WBC 15.93 H (4.50-11.00) K/uL RBC 3.55 L (4.30-5.90) m/uL Hgb 9.9 L (13.5-17.5) gm/dL Hct 30.4 L (37.0-53.0) % MCV 86 (80-100) fL MCH 28 (26-34) pg MCHC 33 (32-36) gm/dL RDW Coeff of Philipp 15.6 H (11.5-15.5) % Plt Count 250 (140-440) K/uL Neut % (Auto) 77.4 H (42.0-72.0) % Lymph % (Auto) 8.5 L (20-44) % [place] % (Auto) 10.1 (0.0-11.0) % Eos % (Auto) 2.0 (0.0-7.0) % Baso % (Auto) 0.3 (0.0-3.0) % Neut # (Auto) 12.30 H (1.7-7.0) K/uL Lymph # (Auto) 1.40 (0.90-2.90) K/uL [place] # (Auto) 1.60 H (0.00-0.90) K/UL Eos # (Auto) 0.30 (0.00-0.50) K/uL Baso # (Auto) 0.00 (0.00-0.30) K/uL Abs Immat Gran (auto) 0.30 (0.00-0.30) K/uL Imm/Tot Granulo (auto) 1.7 % Sodium 132 L (135-149) mmol/L Potassium 4.1 (3.6-5.1) mmol/L Chloride 98 (96-114) mmol/L Carbon Dioxide 28 (20-32) mmol/L Anion Gap 6 L (7-15) mEq/L BUN 20 (7-30) mg/dL Creatinine 0.6 (0.5-1.5) mg/dL Estimated GFR 111 ml/min Glucose 223 H (60-115) mg/dL Lactate 1.5 (0.5-1.9) mmol/L Calcium 8.1 L (8.4-10.6) mg/dL SARS-CoV-2 (PCR) Negative SARS-CoV-2 (Negative) Influenza Type A (PCR) Negative PCR FLU A (Negative) Influenza Type B (PCR) Negative PCR FLU B (Negative) RSV (PCR) Negative PCR RSV (Negative) POC Troponin I 0.02 (0.01-0.04) ng/ml Imaging Data Chest x-ray: Radiologist's impression: Negative chest. No specific findings to explain shortness of breath. ECG Data Attestation: I personally reviewed and interpreted this ECG as follows: Interpretation: Normal sinus rhythm. Rate is 71 beats per minute. There are no ST or T-wave abnormalities. Discharge Plan Discharge Clinical Impression: Acute lower respiratory infection Patient Disposition: Home w/ Parent or Adult Condition: Stable Additional Instructions: Take medication as prescribed. Continue current plans otherwise. Follow up with MD for ongoing management or return if worsening symptoms happen. Prescriptions: New doxycycline hyclate 100 mg capsule 100 mg PO BID 7 Days Qty: 14 0RF No Action aspirin 81 mg tablet,chewable 1 tab PO DAILY Xarelto 10 mg tablet 10 mg PO DAILY oxycodone 5 mg tablet 5 - 10 mg PO Q4H PRN (Reason: pain) atorvastatin 40 mg tablet 40 mg PO HS amlodipine 5 mg tablet 5 mg PO DAILY Novolin N FlexPen 100 unit/mL (3 mL) insulin pen 8 unit subcut QAM pantoprazole 40 mg tablet,delayed release (DR/EC) 40 mg PO DAILY sertraline 50 mg tablet 50 mg PO DAILY levetiracetam 100 mg/mL solution 750 mg PO BID cefadroxil 500 mg capsule 500 mg PO BID acetaminophen 500 mg tablet 1,000 mg PO TID calcium citrate-vitamin D3 315 mg-6.25 mcg (250 unit) tablet 1 tab PO BID carboxymethylcellulose sodium [Lubricant Eye Drops] 0.5 % dropperette 2 drp ophthalmic (eye) QID PRN nystatin 100,000 unit/gram cream 1 applic topical BID sennosides [senna] 8.6 mg tablet 8.6 mg PO BID polyethylene glycol 3350 17 gram/dose powder 17 g PO DAILY oseltamivir 75 mg Capsule 75 mg PO Q12H 3 Days Qty: 7 0RF Follow Up/Referrals: William Edwards MD [Primary Care Provider] - Stand Alone [facility] Instructions
--- OUTSIDE RECORDS SUMMARY | 2024-06-12 08:22 | XMS_ITS | Clinical Summary ---
Author Organization [employer] [facility] [facility] & [facility] Address [facility] [place] [address] Care Team Providers Care Lockstitch Lining Maker Name Role Phone Monty Hernandez MD Primary Care Provider [phone]- [phone] Allergies No known active allergies Medications CPAPIndications:MICHELET [...] Department Care Team Description 04/30/2024 Lab Requisition [facility] [phone] Pauline Mcbride NP 04/16/2024 Lab Requisition [facility] [phone] William Edwards MD from Last 3 Months [...] on file Legal Sex Male 1:29 PM AUDITOR MEDICAL CLAIMS Gender Identity Not on file Sexual Orientation [...] WITH AUTO DIFFERENTIAL Routine 04/20/2024 8:20 AM AUDITOR MEDICAL CLAIMS Acute posthemorrhagic anemia Type 2 diabetes mellitus with foot ulcer (CODE) (HC) BASIC METABOLIC PANEL Routine 04/20/2024 8:20 AM AUDITOR MEDICAL CLAIMS Acute posthemorrhagic anemia Type 2 diabetes mellitus with foot ulcer (CODE) (HC) HEMOGLOBIN A1C Routine 04/20/2024 8:20 AM AUDITOR MEDICAL CLAIMS Acute posthemorrhagic anemia Type 2 diabetes mellitus with foot ulcer (CODE) (HC) CBC WITH AUTO DIFFERENTIAL Routine 04/20/2024 8:20 AM AUDITOR MEDICAL CLAIMS Acute posthemorrhagic anemia Type 2 diabetes mellitus with foot ulcer (CODE) (HC) LIPID PANEL Routine 09/23/2023 7:41 AM CDT Essential (primary) hypertension Elevation of levels of liver transaminase levels from Last 3 Months or Most Recently Relevant to Health Maintenance Results * (ABNORMAL) CBC WITH AUTO DIFFERENTIAL (04/20/2024 8:20 AM AUDITOR MEDICAL CLAIMS) WHITE BLOOD COUNT 6.5 4.5 - 11.0 thou/cu mm 04/20/2024 9:47 AM [facility] RED BLOOD COUNT 4.41 4.30 - 5.90 mil/cu mm 04/20/2024 9:47 AM [facility] HEMOGLOBIN 12.1(L) 13.5 - 17.5 g/dL 04/20/2024 9:47 AM [facility] HEMATOCRIT 39.1 37.0 - 53.0 % 04/20/2024 9:47 AM [facility] MCV 89 80 - 100 fL 04/20/2024 9:47 AM [facility] MCH 27.4 26.0 - 34.0 pg 04/20/2024 9:47 AM [facility] MCHC 30.9(L) 32.0 - 36.0 g/dL 04/20/2024 9:47 AM [facility] RDW 14.5 11.5 - 15.5 % 04/20/2024 9:47 AM [facility] PLATELET COUNT 204 140 - 440 thou/cu mm 04/20/2024 9:47 AM [facility] MPV 11.0 6.5 - 11.0 fL 04/20/2024 9:47 AM [facility] % NEUT 46.6 % 04/20/2024 9:47 AM [facility] % LYMPH 31.1 % 04/20/2024 9:47 AM [facility] % MONO 11.7 % 04/20/2024 9:47 AM [facility] % EOS 9.2 % 04/20/2024 9:47 AM [facility] % BASO 1.4 % 04/20/2024 9:47 AM [facility] ABSOLUTE NEUTROPHILS 3.0 1.7 - 7.0 thou/cu mm 04/20/2024 9:47 AM [facility] ABSOLUTE LYMPHOCYTES 2.0 0.9 - 2.9 thou/cu mm 04/20/2024 9:47 AM [facility] ABSOLUTE MONOCYTES 0.8 <0.9 thou/cu mm 04/20/2024 9:47 AM [facility] ABSOLUTE EOSINOPHILS 0.6(H) <0.5 thou/cu mm 04/20/2024 9:47 AM [facility] ABSOLUTE BASOPHILS 0.1 <0.3 thou/cu mm 04/20/2024 9:47 AM [facility] Blood BLOOD SPECIMEN / Unknown Venipuncture / Unknown 04/20/2024 8:20 AM AUDITOR MEDICAL CLAIMS 04/20/2024 9:21 AM AUDITOR MEDICAL CLAIMS us William Edwards MD HEMATOLOGY Final Result [facility] [address] [place] [address] * (ABNORMAL) HEMOGLOBIN A1C (04/20/2024 8:20 AM AUDITOR MEDICAL CLAIMS) HEMOGLOBIN A1C SCREENING 7.6(H) <=6.4 % 04/20/2024 9:36 AM [facility] Blood BLOOD SPECIMEN / Unknown Venipuncture / Unknown 04/20/2024 8:20 AM AUDITOR MEDICAL CLAIMS 04/20/2024 9:21 AM [facility] [place] [facility] - 04/20/2024 9:36 AM AUDITOR MEDICAL CLAIMS (<5.7%) Normal (5.7% to 6.4%) Indicates prediabetes (>=6.5%) Confirms diabetes Falsely low levels may be seen with: Recent Transfusion, Recent Significant Blood Loss, Hemolytic Diseases, or Falsely elevated levels may be seen with: Untreated Anemias, Splenectomy us William Edwards MD CHEMISTRY Final Result [facility] [address] [place] [address] * (ABNORMAL) BASIC METABOLIC PANEL (04/20/2024 8:20 AM [facility]) SODIUM 138 136 - 145 mmol/L 04/20/2024 9:47 AM [facility] POTASSIUM 4.1 3.5 - 5.1 mmol/L 04/20/2024 9:47 AM [facility] CHLORIDE 100 98 - 107 mmol/L 04/20/2024 9:47 AM [facility] CO2,TOTAL 29 22 - 29 mmol/L 04/20/2024 9:47 AM [facility] ANION GAP 9 5 - 18 04/20/2024 9:47 AM [facility] GLUCOSE 216(H) 70 - 99 mg/dL 04/20/2024 9:47 AM [facility] CALCIUM 9.6 8.8 - 10.4 mg/dL 04/20/2024 9:47 AM [facility] Comment: Reference ranges for this test were updated on 12/23/2023 to reflect our healthy population more accurately. Reference range changes are not retroactively applied to results, but previous results using the same methodology can be interpreted in the context of the new reference range. BUN 20 6 - 20 mg/dL 04/20/2024 9:47 AM [facility] CREATININE 0.68(L) 0.70 - 1.20 mg/dL 04/20/2024 9:47 AM [facility] BUN/CREAT RATIO 29(H) 10 - 20 9:47 AM [facility] eGFR >90 >90 mL/min/1. 73m2 04/20/2024 9:47 AM [facility] Comment:As of 2021, eG FR is calculated by the CKD-EPI creatinine equation without race adjustment. eGFR can be influenced by muscle mass, exercise, and diet. The reported eGFR is an estimation only and is only applicable if the renal function is stable. Blood BLOOD SPECIMEN / Unknown Venipuncture / Unknown 04/20/2024 8:20 AM AUDITOR MEDICAL CLAIMS 04/20/2024 9:21 AM AUDITOR MEDICAL CLAIMS us William Edwards MD CHEMISTRY Final Result [facility] [address] [place] [address] * LIPID PANEL (09/23/2023 7:41 AM T) CHOLESTEROL,TOTAL 123 100 - 199 mg/dL 09/23/2023 9:11 AM [facility] Comment: Cholesterol, Total Reference Ranges Desirable <200 mg/dL Borderline 200-239 mg/dL High >=240 mg/dL TRIGLYCERIDES 94 <150 mg/dL 09/23/2023 9:11 AM [facility] HDL CHOLESTEROL 48 >40 mg/dL 9:11 AM [facility] NON-HDL CHOLESTEROL 75 <145 mg/dl 09/23/2023 9:11 AM [facility] CHOL/HDL RATIO 2.56 <4.50 09/23/2023 9:11 AM [facility] LDL CHOLESTEROL 56 <=130 mg/dL 09/23/2023 9:11 AM [facility] VLDL CHOLESTEROL 19 <=30 mg/dL 09/23/19 9:11 AM [facility] Blood BLOOD SPECIMEN / Unknown Venipuncture / Unknown 09/23/2023 7:41 AM CDT 09/23/2023 8:46 AM CDT us Pauline Mcbride DAM TENDER CHEMISTRY Final Resul t [facility] [address] [place] [address] from Last 3 Months or Most Recently Relevant to Health Maintenance Insurance [facility] [place] Advance Directives Documents on File Type Date Recorded Patient Vp Product Marketing Expl anation POLST 06/25/2023 * Full Code (Latest Code Status on File) Date Activated Date Inactivated Comments 11/03/2023 8:15 AM 11/07/2023 1:29 PM Question Answer Comments Code Status Discussion: Reviewed Preferences Care Teams Lockstitch Lining Maker Relationship Specialty Start Date End Date Monty Hernandez MD [address] [place] [address] PCP - General Family Practice 04/18/15
--- OUTSIDE RECORDS SUMMARY | 2024-06-12 08:22 | XMS_ITS | Encounter Summary ---
Author Organization [facility] Address [address] [place] [address] Care Team Providers Care Dry House Operator Name Role Phone Elsewhere, Pcp Primary Care Provider Unavailabl e Encounter Details Date Type Department Care Team (Late st Contact Info) Description 04/28/2024 Clinical Communication Department of Neurologic Surgery in [place], [place] [address] [place] [address] Fantasma Butt M.D. [address] [place] [address] Social History Tobacco Use Types Packs/Day Years Used Date Smoking Tobacco: Never Passive Smoke Exposure: Never Smokeless Tobacco: Never Alcohol Use Standard Drinks/Week Comments Never 2 (1 standard drink = 0.6 oz pur e alcohol) 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 [address] [place] [phone] 07/15/2024 11:45 AM CDT Office Visit Department of Orthopedic Surgery in [place], [place] [address] [place] [phone] Vel Vinson M.D., M.B.A. [address] [place] [phone] 08/10/2024 12:45 PM CDT Clinical Communication Virtual Review in [place], [place] [address] [place] [address] 08/12/2024 9:00 AM CDT Appointment Department of Radiology, [facility], in [place], [place] [address] [place] [phone] Fantasma Butt M.D. [address] [place] [phone] Discharge Disposition: Home or Self Care 08/12/2024 11:00 AM CDT Office Visit Department of Radiology, [facility], in [place], [place] [address] [place] [phone] Radha Ojeda P.A.-C., M.S. [address] [place] [phone] documented as of this encounter Visit Diagnoses Not on filedocumented in this encounter Additional Health Concerns Infection Onset Date Last Indicated Resolved Time COVID19 Pending 05/03/2024 05/03/2024 05/03/2024 7 :28 PM CDT documented as of this encounter Care Teams Dry House Operator Relationship Specialty Start Date End Date Elsewhere, Pcp PCP - General Internal Medicine 10/03/23 documented as of this encounter
--- OUTSIDE RECORDS SUMMARY | 2024-06-12 08:22 | XMS_ITS | Encounter Summary ---
Author Organization [facility] Address [address] [place] [address] Care Team Providers Care Cemetery Counselor Name Role Phone Elsewhere, Pcp Primary Care [...] your living situation today? 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 [address] [place] [phone] 07/15/2024 11:45 AM CDT Office Visit Department of Orthopedic Surgery in [place], [place] [address] [place] [phone] Vel Vinson M.D., M.B.A. [address] [place] [phone] 08/10/2024 12:45 PM CDT Clinical Communication Virtual Review in [place], [place] 200 [place] [address] 08/12/2024 9:00 AM CDT Appointment Department of Radiology, [facility] in [place], [place] [address] [place] [phone] Fantasma Butt M.D. [address] [place] [phone] Discharge Disposition: Home or Self Care 08/12/2024 11:00 AM CDT Office Visit Department of Radiology, [facility], in [place], [place] [address] [place] [phone] Radha Ojeda P.A.-C., M.S. [address] [place] [phone] documented as of this encounter Visit Diagnoses Not on filedocumented in this encounter Additional Health Concerns Infection Onset Date Last Indicated Resolved Time COVID19 Pending 01/20/2024 01/20/2024 01/20/2024 9 :04 AM HYDROGEOLOGIST documented as of this encounter Care Teams Cemetery Counselor Relationship Specialty Start Date End Date Elsewhere, Pcp PCP - General Internal Medicine 10/03/23 documented as of this encounter
--- OUTSIDE RECORDS SUMMARY | 2024-06-12 08:22 | XMS_ITS | Encounter Summary ---
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 200 [place] [address] Phone: tel: fax: [facility] Referral ID Status Reason Start Date Expiration Date V isits Requested Visits Authorized [id number] Authorized 05/12/2024 08/12/2025 1 1 * Outpatient (Routine) - Authorized Specialty Diagnoses / Procedures Referred By Tammi basilio Referred To Contact Radiology Fantasma Butt M.D. [address] [place] [phone] Phone: tel: fax: Radha Ojeda P.A.-Venu., M.S. [address] [place] [phone] Phone: tel: fax: Referral ID Status Reason Start Date Expiration Date V isits Requested Visits Authorized [id number] Authorized 05/12/2024 11/11/2025 1 1 Scheduling Instructions JONO Rojas - when dr. Butt available. To be scheduled same day as imaging study. Encounter Details Date Type Department Care Team (Late st Contact Info) Description 05/12/2024 Orders Only Department of Neurologic Surgery in [place], [place] [address] [place] [phone] Rosalie Guerra R.N., CNRN [address] [place] [phone] Occlusion Carotid Artery Left (Primary Dx); Stenosis Carotid Artery Right Social History Tobacco Use Types Packs/Day Years Used Date Smoking Tobacco: Never Passive Smoke Exposure: Never Smokeless Tobacco: Never Alcohol Use Standard Drinks/Week Comments Never 2 (1 standard drink = 0.6 oz pur e alcohol) [facility] Utilities Answer Date Recorded In the past 12 months has [facility] [employer], gas, oil, or water [employer] threatened to shut off services in your [...] your living situation today? 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 [address] [place] [phone] 07/15/2024 11:45 AM CDT Office Visit Department of Orthopedic Surgery in [place], [place] [address] [place] [phone] Vel Vinson M.D., M.B.A. [address] [place] [phone] 08/10/2024 12:45 PM CDT Clinical Communication Virtual Review in [place], [place] [address] [place] [phone] 08/12/2024 9:00 AM CDT Appointment Department of Radiology, [facility], in [place], [place] [address] [place] [phone] Fantasma Butt M.D. [address] [place] [phone] Discharge Disposition: Home or Self Care 08/12/2024 11:00 AM CDT Office Visit Department of Radiology, [facility], in [place], [place] [address] [place] [phone] Radha Ojeda P.A.-C., M.S. [address] [place] [phone] Scheduled Orders Name Type Priority Associated Diagnoses [...] Right documented in this encounter Care Teams Merchandise Examiner Relationship Specialty Start Date End Date Elsewhere, Pcp PCP - General Internal Medicine 10/03/23 documented as of this encounter
--- OUTSIDE RECORDS SUMMARY | 2024-06-12 08:22 | XMS_ITS | Encounter Summary ---
Author Organization [facility] Address [address] [place] [address] Care Team Providers Care Breaker Unit Assembler Name Role Phone Elsewhere, Pcp Primary Care Provider Unavailabl e Encounter Details Date Type Department Care Team (Late st Contact Info) Description 04/23/2024 Orders Only Department of Radiology, [facility], in [place], [place] [address] [place] [phone] Radha Ojeda P.A.-C., M.S. [address] [place] [phone] Social History Tobacco Use Types Packs/Day Years Used Date Smoking Tobacco: Never Passive Smoke Exposure: Never Smokeless Tobacco: Never Alcohol Use Standard Drinks/Week Comments Never 2 (1 standard drink = 0.6 oz pur e alcohol) [facility] Utilities Answer Date Recorded In the past 12 months has [facility] [employer], gas, oil, or water [employer] threatened to shut off services in your [...] your living situation today? 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 [address] [place] [phone] 07/15/2024 11:45 AM CDT Office Visit Department of Orthopedic Surgery in [place], [place] [address] [place] [phone] Vel Vinson M.D., M.B.A. [address] [place] [phone] 08/10/2024 12:45 PM CDT Clinical Communication Virtual Review in [place], [place] 200 [place] [phone] 08/12/2024 9:00 AM CDT Appointment Department of Radiology, [facility], in [place], [place] [address] [place] [phone] Fantasma Butt M.D. [address] [place] [phone] Discharge Disposition: Home or Self Care 08/12/2024 11:00 AM CDT Office Visit Department of Radiology, [facility], in [place], [place] [address] [place] [phone] Radha Ojeda P.A.-C., M.S. [address] [place] [phone] documented as of this encounter Visit Diagnoses Not on filedocumented in this encounter Additional Health Concerns Infection Onset Date Last Indicated Resolved Time COVID19 Pending 05/03/2024 05/03/2024 05/03/2024 7 :28 PM CDT documented as of this encounter Care Teams Breaker Unit Assembler Relationship Specialty Start Date End Date Elsewhere, Pcp PCP - General Internal Medicine 10/03/23 documented as of this encounter
--- OUTSIDE RECORDS SUMMARY | 2024-06-12 08:22 | XMS_ITS | Encounter Summary ---
Author Organization [facility] Address [address] [place] [address] Care Team Providers Care Cnc Milling Machine Operator Name Role Phone Elsewhere, Pcp Primary Care Provider Unavailabl e Reason for Visit * Auth/Cert (Routine) Specialty Diagnoses / Procedures Referred By Tammi t Referred To Contact Diagnoses Stenosis Carotid Artery Bilateral Stenosis Carotid Artery Left Procedures IR CEREBRAL ARTERY ANGIOGRAM Referral ID Status Reason Start Date Expiration Date Visits Re quested Visits Authorized [id number] 1 1 Encounter Details Date Type Department Care Team (Latest Contact Info) Description 05/03/2024 6:56 AM CDT - 05/04/2024 10:51 AM CDT Hospital Encounter [facility], [facility], [facility], Ninth Floor [address] [place] [phone] Radha Ojeda P.A.-C., M.S. [address] [place] [phone] Hal Nguyen M.D., Ph.D. [address] [place] [address] [phone] Fantasma Butt M.D. [address] [place] [address] [phone] Stenosis Carotid Artery Bilateral Discharge Disposition: Longterm Facility Social History Tobacco Use Types Packs/Day Years Used Date Smoking Tobacco: Never Passive Smoke Exposure: Never Smokeless Tobacco: Never Alcohol Use Standard Drinks/Week Comments Never 2 (1 standard drink = 0.6 oz pur e alcohol) [facility] Utilities Answer Date Recorded In [...] living situation today? [facility] 01/15/2024 Sex and Gender Information Value Date Recorded Sex Assigned at Male 07/26/2022 1:30 PM CDT Legal Sex Male 6:41 AM CERTIFIED FORKLIFT OPERATOR Gender Identity Male 07/26/2022 1:32 PM [...] AM CDT DISCHARGE SUMMARY BRIEF OVERVIEW Hospital: [facility] Discharge Provider: Radha Ojeda P.A.-C. Primary Team: [facility] Neurologic Surgery [facility] Primary Care Providers: Elsewhere, Pcp (General) No address on file Primary Care Provider Phone Number: None Primary Care Provider Fax Number: None Other Providers: None Admission Date: 05/03/2024 Discharge Date: 05/04/2024 PRINCIPAL DIAGNOSIS Stenosis Carotid Artery Left SECONDARY DIAGNOSES Principal Problem: Stenosis Carotid Artery Left Resolved Problems: * No resolved hospital problems. * DISCHARGE DISPOSITION Longterm Facility [3] ACTIVE ISSUES [...] M.D., Ph.D. - 05/04/2024 6:51 AM CDT [phone] Estevan Lester [phone] PPD#1 status post left ICA angioplasty for restenosis Interval: Uncomplicated procedure. Post-procedure baseline left carotid US obtained 05/03/2024. AALIYAH, AFVSS. Pain well-controlled. Neurologically stable. Right radial access site, clean/dry/intact. Exam: AOx3, slowed. PERRL, EOMI. Chronic residual right hemiparesis. SILT. Plan: Rivoroxaban 10 mg daily + ASA 81 mg daily. Discontinue ticagrelor. Discharge facility 05/04/2024. --- Neurosurgery - [facility] Service, [phone] * Boris Moreno R.Ph. - 05/03/2024 1:34 PM CDT Images from the original note were not included. Admission Medication History Note Adherence issues: No concerns Medication list source: Outside facility [facility], Care Everywhere or chart review, and Pharmacy [...] carotid ultrasound exams have demonstrated progressive bilateral, gjhq-[id number]-yzgw-right in stent stenosis and he presents today [...] Obesity, BMI 30-39.9 #12 MICHELET Admit to [facility], general care Routine neuro checks and vitals [...] NEUROENDOVASCULAR POST-PROCEDURE NOTE PATIENT DISPOSITION Admit to [facility], Filomena service PROCEDURE PERFORMED AND DESCRIPTION IR [...] SUBJECTIVE Assessment Information Referral Data Referral Source: APPLIED PSYCHOLOGY TEACHER/PA Referral Name: Radha Ojeda P.A.-C., M.S. Referral Reason: Discharge Planning Discharge Planning: Longterm Facility Previous Assessment: No Food Preparer Services Used: No Primary Language: Australian Food Preparer Services Used: No Person(s) Present During Interview: patient and guardian, Lor - by phone History of Present Illness #1 Stenosis Carotid Artery Left Social History Support System: family members Primary Caregiver: family and facility staff Social Drivers of Health with Concerns No concerns present OBJECTIVE Finance/Insurance Primary insurance: [facility] Secondary insurance: N/A benefits: No Advance Directives Legal Decision Maker: Guardian Advance Directives: POLST/POST, Guardianship Baseline Functional Status Baseline Activities of Daily Living Mobility: Requires lifting device, Assistance of one Dressing: Dependent Feeding: Independent Bathing: Dependent Grooming: Needs assistance Toileting: Dependent Behavior: Pleasant, Calm, Cooperative, Appropriate Communication: Understands speaking, Talks, Understands Australian Shopping: Dependent Medication Management: Needs assistance Who is managing your medication at home?: Other (Comment) (facility staff) Housekeeping: Dependent Meal Prep: Dependent Assistive Devices: Wheelchair - manual, Lift device Transportation: Stretcher van Managing Finances: Needs assistance Baseline Services/Resources Primary care clinic and provider: Patient Care Team Relationship Specialty Notifications Start End William Edwards M.D. External Primary Care Physician Family Medicine 10/03/23 Address: [address] [place] [phone] Additional Resources: Additional Services: NA Anticipated Needs [...] does have transportation benefits. Anticipated Discharge Destination: Longterm Facility Referrals Initiated: Destination - Admitted Since 05/03/2024 Service Provider Request Status Services Address Phone Fax Patient Preferred [facility] Pending - Request Sent -- [address] [place] [phone] -- apparel rental clerk provided Care Management Brochure ([id number]) and information regarding the dismissal process. ASSESSMENT / PLAN ASSESSMENT: The apparel rental clerk met with Estevan White Lester to discuss his current hospitalization and home going needs. The patient was unaccompanied. The patient has an active health care agent, therefore the apparel rental clerk discussed patient's history, current hospitalization, and discharge planning needswith Danielle LesterMary by phone. The role of apparel rental clerk was reviewed. The patient and patient's guardian reviewed his prior level of care and support system. The patient receives support from his siblings, family members and facility staff . Estevan resides in a fpc facility with level entry. Housekeeping, grocery shopping, meal prep, and other household responsibilities have previously been completed by facility staff . Patient and his legal guardian (sister) Lor denied any concerns with patient returning to his previous fpc facility. Lor shared that patient is lift dependent and prefers his medications crushed. She requested a phone call from patient's surgical team with updates and anticipated plan for follow up. At this time, the care team anticipates the patient requires the following service(s) to be reconnected: fpc facility. The patient and patient's guardian identified the following as theircurrent vendor(s): [facility] in [place], [place]. The patient's potential needs at dismissal based on their home setting, previous needs and responsibilities, homebound status, and relevant assessments were discussed. The patient will be safe and supported to discharge to a SNF, when medically ready. Support will be provided by patient's siblings,legal guardian and facility staff. apparel rental clerk recommendations include: discussing needed assistance with family, friends, or neighbors . Pending hospital course and medical readiness, no barriers to dismissal have been identified at this time. The following hospital-based consult orders and/or referrals placed or requested: None. PLAN: The patient and patient's guardian agrees with the following plan. Patient's Anticipated Discharge Destination: Longterm Facility Patient to return to: Destination - Admitted Since 05/03/2024 Service Provider Services Address Phone Fax Patient Preferred [facility] Longterm [address] [facility] [phone] -- Contact: Shaina For nurse to nurse hand off phone: [phone] Patient has a [place] bedhold. Facility can [...] Facility oxygen provider is [facility] (phone [phone], fax [phone]) . Was the patient on oxygen at your facility: no The patient is being prepared to discharge on 05/04/24 at 10:30AM if medically ready for transfer. Contact Energy Technician if time needs to be changed. Transportation will be provided by [employer] ([phone]). Transportation will be paid for by [place]. Transport oxygen not needed. NURSING: Complete documentation [...] Fax any new prescriptions and orders to [phone]. If transport oxygen is needed, work with nursing and respiratory therapy to complete an oxygen prescription. After Visit Summary to include: All discharge medications including dosage, times for administration, diagnosis, and stop date. Ongoing care - wound care, infection precautions and phone numbers to call. Energy Technician : Reviewed patient's insurance coverage for the services noted above. The patient and guardian appear(s) to have an understanding of this. Transportation upon dismissal has been scheduled: on 05/04/24 at 10:30AM if medically ready for transfer. Contact Energy Technician if time needs to be changed. Transportation will be provided by [employer] ). Transportation will be paid for by [place]. Transport oxygen not needed. apparel rental clerk encouraged the patient to reach out with any questions/concerns. Care Management will continue to assess for homegoing needs with the interdisciplinary team. Signed by: Gemma Metz R.N. 05/03/2024 documented in this encounter Nursing Notes * Kimo Patel R.N. - 05/04/2024 10:51 AM CDT Shift Goals: Clinical goals for shift: patient will discharge back to [facility]. Identify possible barriers to meeting goals/advancing plan [...] cares, refusing neuro assessments and vitals on magnetic tape typewriter operator's arrival at 2300 insisting to leave him [...] carotid artery restenosis. Surgeon: Filomena Co-surgeon: Patrick Designer/Writer: Nadeem Findings As expected Complications None Operative [...] AM CDT Clinical Communication Virtual Review in [place], [place] 200 [place] [phone] 07/15/2024 10:30 AM CDT Appointment Department of Radiology, [facility] in [place], [place] [address] [place] [phone] Xavi Hicks M.D. [address] [place] [phone] 07/15/2024 11:45 AM CDT Office Visit Department of Orthopedic Surgery in [place], [place] [address] [place] [phone] Vel Vinson M.D., M.B.A. [address] [place] [phone] 08/10/2024 12:45 PM CDT Clinical Communication Virtual Review in [address] [phone] 08/12/2024 9:00 AM CDT Appointment Department of Radiology, [place], [place] [address] [place] [phone] Fantasma Butt M.D. [address] [place] [phone] Discharge Disposition: Home or Self Care 08/12/2024 11:00 AM CDT Office Visit Department of Radiology, [facility], in [place], [place] [address] [place] [phone] Radha Ojeda P.A.-C., M.S. [address] [place] [phone] documented as of this encounter Procedures Procedure [...] 9:38 AM CDT IR CEREBRAL INTRACRANIAL ARTERY MAINTAINABILITY ENGINEER RAD - Routine (most inpatients and all [...] l Result Performing Organization Address [facility] Co de Phone Number POC [facility] 200 [place] [address], [facility] POC 200 [place] [address] * (ABNORMAL) Glucose, POCT (05/03/2024 9:22 PM CDT) Glucose, POCT, B 268(H) 70 - 140 mg/dL 05/03/2024 9:27 PM CDT PCL[facility] Site Capillary 05/03/2024 9:27 PM CDT P[facility]X Blood 05/03/2024 9:22 PM CDT 05/03/2024 9:27 PM CDT us Unknown Provider LAB POCT ORDERABLES-MANUAL Cata l Result Performing Organization Address [facility]/ZIP Co de Phone Number POC [facility] 200 [place] [address], [facility] POC 200 [place] [address] * SARS Coronavirus 2, PCR Rapid Symptomatic (05/03/2024 7:04 PM CDT) SARS CoV-2, PCR, Rapid, V Undetected Undetected 05/03/2024 7:27 PM CDT [facility] SARS Coronavirus 2, Rapid, Source Swab, Nasopharynx 05/03/2024 7:04 PM CDT [facility] Swab (Nasopharynx) 05/03/2024 7:04 PM CDT 05/03/2024 7:04 PM CDT us Abena Banerjee APRN NBelkisP., D.N.P., M.S.N. LAB MICROBIOLOGY - GENERAL ORDERABLES Final Result [facility] [address] [place] [address], [facility] [address] [place] [address] * (ABNORMAL) Glucose, POCT (05/03/2024 6:14 PM CDT) Glucose, POCT, B 181(H) 70 - 140 mg/dL 05/03/2024 6:17 PM CDT [facility] Site Capillary 05/03/2024 6:17 PM CDT [facility] Blood 05/03/2024 6:14 PM CDT 05/03/2024 6:17 PM CDT us Unknown Provider LAB POCT ORDERABLES-MANUAL Cata l Result Performing Organization Address [facility]/ZIP Co de Phone Number POC [facility] [address] [place] [address], [facility] POC [address] [place] [address] * (ABNORMAL) Glucose, POCT (05/03/2024 12:02 PM CDT) Glucose, POCT, B 186(H) 70 - 140 mg/dL 05/03/2024 12:04 PM CDT [facility] Site Capillary 05/03/2024 12:04 PM CDT P[facility] Last Intake > 4 hours 05/03/2024 12:04 PM CDT [facility] Blood 05/03/2024 12:0 2 PM CDT 05/03/2024 12:05 PM CDT us Unknown Provider LAB POCT ORDERABLES-MANUAL Cata l Result Performing Organization Address City/[facility]/ZIP Co de Phone Number POC [facility] [address] [place] [address], [facility] POC 200 [place] [address] * US Carotid Left (05/03/2024 10:58 AM [...] normal distal ICA in accordance with [place] Symptomatic Carotid Endarterectomy Trial (NASCET). Procedure Note [...] LAB POCT ORDERABLES-MANUAL Cata l Result POC [facility] [address] [place] [address], [facility] POC [address] [place] [address] * IR Cerebral Intracranial Artery MAINTAINABILITY ENGINEER (05/03/2024 9:33 AM CDT) Anatomical Region Laterality [...] AM CDT EXAM: IR CEREBRAL INTRACRANIAL ARTERY MAINTAINABILITY ENGINEER COMPARISON: Ultrasound carotid artery bilateral February 19, [...] Seldinger technique with insertion of a 7 Slovak sheath into the right radial artery. 6000 units of heparin was administered intravenously and an ACT was checked approximately 5 minutes thereafter. 5 mg of verapamil was flushed through the sheath. A Alektrona 2 catheter over stiff Glidewire was navigated [...] - 05/04/2024 EXAM: IR CEREBRAL INTRACRANIAL ARTERY MAINTAINABILITY ENGINEER COMPARISON: Ultrasound carotid artery bilateral February 19, [...] viaSeldinger technique with insertion of a 7 Slovak sheath into the rightradial artery. 6000 units of heparin was administered intravenously and an ACT was checked approximately 5minutes thereafter. 5 mg of verapamil was flushed through the sheath. ASimmGild 2 catheter over stiff Glidewire was navigated [...] Clotting Time), POCT (05/03/2024 9:09 AM CDT) [facility] Activated Clotting Time, POCT 311(H) 84 - 139 sec 05/03/2024 12:34 PM CDT PCSM Blood 05/03/2024 9:09 AM CDT 05/03/2024 12:34 PM CDT us Unknown Provider LAB POCT ORDERABLES - DEVICE Fi nal Result Performing Organization Address [facility] de Phone Number POC [facility] [address] [facility] POC [address] [place] [address] * Creatinine, POCT (05/03/2024 7:48 AM CDT) [facility] Creatinine, POCT, B 0.8 0.7 - 1.4 mg/dL 05/03/2024 7:50 AM CDT PCDT Comment: ----ADDITIONAL INFORMATION---- Performed at the Point of Care Blood 05/03/2024 7:48 AM CDT 05/03/2024 7:50 AM CDT us Unknown Provider LAB POCT ORDERABLES - DEVICE Fi nal Result Performing Organization Address [facility] de Phone Number [facility] [address] [facility] [address] [facility] POC 200 [place] [address] * Creatinine, POCT (05/03/2024 7:48 AM CDT) [facility] Estimated GFR (eGFR), POCT >90 >=60 mL/min/BSA 05/03/2024 7:50 AM CDT [facility] Comment: Estimated GFR calculated using the 2020 CKD_EPI creatinine equation. Blood 05/03/2024 7:48 AM CDT 05/03/2024 7:50 AM CDT us Unknown Provider LAB POCT ORDERABLES - DEVICE Fi nal Result Performing Organization Address [facility] Co de Phone Number POC [facility] [address] [facility] POC 200 [place] [address] * (ABNORMAL) Glucose, POCT (05/03/2024 7:38 AM CDT) Glucose, POCT, B 188(H) 70 - 140 mg/dL 05/03/2024 7:41 AM CDT PCLX Site Capillary 05/03/2024 7:41 AM CDT PCLX Blood 05/03/2024 7:38 AM CDT 05/03/2024 7:41 AM CDT us Unknown Provider LAB POCT ORDERABLES-MANUAL Cata l Result Performing Organization Address [facility] de Phone Number POC [facility] [address] [facility] POC 200 [place] [address] documented in this encounter Visit Diagnoses Diagnosis [...] documented as of this encounter Care Teams Cnc Milling Machine Operator Relationship Specialty Start Date End Date Elsewhere, Pcp PCP - General Internal Medicine 10/03/23 documented as of this encounter
--- OUTSIDE RECORDS SUMMARY | 2024-06-12 08:22 | XMS_ITS ---
Author Organization [facility] Address [address] [place] [address] Care Team Providers Care Supervisor Soldering Name Role Phone Elsewhere, Pcp Primary Care Provider Unavailabl e OPAT Status:Pending (Paused) Start date:05/27/2023 Enrollment date:06/06/2023 Related service episodes:Adult OPAT Service Episode (Declined) Continued Care and Services Coordination
--- OUTSIDE RECORDS SUMMARY | 2024-06-12 08:22 | XMS_ITS | Encounter Summary ---
Author Organization [facility] Address [address] [place] [address] Care Team Providers Care Comfort Station Attendant Name Role Phone Elsewhere, Pcp Primary Care Provider Unavailabl e Reason for Visit * Auth/Cert (Routine) Specialty Diagnoses / Procedures Referred By Anoopac t Referred To Contact Diagnoses Stenosis Carotid Artery Bilateral Stenosis Carotid Artery Left Procedures IR CEREBRAL ARTERY ANGIOGRAM Referral ID Status Reason Start Date Expiration Date Visits Re quested Visits Authorized [id number] 1 1 Encounter Details Date Type Department Care Team (Late st Contact Info) Description 05/03/2024 8:08 AM CDT Anesthesia Event Department of Radiology in [place], [place] [address] [place] [address] Erinn Carrera M.B.B.S. [address] [place] [phone] Aamir Carpenter M.D. [address] [place] [phone] Anesthesia Record Procedure Summary Procedure Name Responsible Anesthesiologist Anesthesia Start Time Anesthesia Stop Time IR CEREBRAL INTRACRANIAL ARTERY CLAIMS MANAGER Erinn Carrera M.B.B.S. 05/03/24 0808 05/03/24 0923 [...] = 0.6 oz pur e alcohol) [facility] Utilities Answer Date Recorded In the past 12 months has [facility] [employer], gas, oil, or water [employer] threatened to shut off services in your [...] your living situation today? 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 - 05/03/2024 10:57 AM CDT Patient: Estevan Lester Procedure Summary Date: 05/03/24 Room / Location: Department of Radiology in [place], [place] Anesthesia Start: 807 Anesthesia Stop: 922 Procedure: IR CEREBRAL INTRACRANIAL ARTERY CLAIMS MANAGER Diagnosis: Stenosis Carotid Artery Bilateral Stenosis Carotid [...] balloon angiogplasty Location: Department of Radiology in [place], [place] Pertinent components of the patient's history [...] (+) Diabetes Mellitus Type 2 Ulcer Foot ([facility]) NEURO (+) Occlusion Carotid Artery Left (+) Stenosis Carotid Artery Right (+) Stroke ([facility]) (+) Transient Ischemic Attack Nervous (+) Seizure ([facility]) Musculoskeletal (+) Fracture Femur Shaft Closed Initial Right ([facility]) (+) Infection Total Hip Arthroplasty Initial Right ([facility]) (+) Infection Total Hip Arthroplasty Subsequent Right [...] with patient /legal guardian or through an national account director. Risks/Benefits/Alternatives of Blood transfusion discussed with patient [...] AM CDT Clinical Communication Virtual Review in [address] [phone] 07/15/2024 10:30 AM CDT Appointment Department of Radiology, [facility], in [address] [phone] Xavi Hicks M.D. [address] [place] [phone] 07/15/2024 11:45 AM CDT Office Visit Department of Orthopedic Surgery in [address] [phone] Vel Vinson M.D., M.B.A. [address] [place] [phone] 08/10/2024 12:45 PM CDT Clinical Communication Virtual Review in [address] [phone] 08/12/2024 9:00 AM CDT Appointment Department of Radiology, [facility], in [address] [phone] Fantasma Butt M.D. [address] [place] [phone] Discharge Disposition: Home or Self Care 08/12/2024 11:00 AM CDT Office Visit Department of Radiology, [facility], in [place], [place] [address] [place] [phone] Radha Ojeda P.A.-C., M.S. [address] [place] [address] documented as of this encounter Visit Diagnoses [...] mg documented in this encounter Care Teams Comfort Station Attendant Relationship Specialty Start Date End Date Elsewhere, Pcp PCP - General Internal Medicine 10/03/23 documented as of this encounter
--- OUTSIDE RECORDS SUMMARY | 2024-06-12 08:22 | XMS_ITS | Encounter Summary ---
Author Organization [facility] Address [address] [place] [address] Care Team Providers Care Wooling Machine Operator Name Role Phone Elsewhere, Pcp Primary Care Provider Unavailabl e Encounter Details Date Type Department Care Team (Late st Contact Info) Description 04/23/2024 Clinical Communication Department of Radiology in [place], [place] [address] [place] [phone] Fantasma Butt M.D. [address] [place] [phone] Social History Tobacco Use Types Packs/Day Years Used Date Smoking Tobacco: Never Passive Smoke Exposure: Never Smokeless Tobacco: Never Alcohol Use Standard Drinks/Week Comments Never 2 (1 standard drink = 0.6 oz pur e alcohol) [facility] Utilities Answer Date Recorded In the past 12 months has [facility] [employer], gas, oil, or water [employer] threatened to shut off services in your [...] your living situation today? I have a [facility] place to live 01/15/2024 Sex and Gender Information Value Date Recorded Sex Assigned at Male 07/26/2022 1:30 PM CDT Legal Sex Male 6:41 AM [employer] Gender Identity Male 07/26/2022 1:32 PM CDT Sexual Orientation Straight 07/26/2022 1: 32 PM CDT documented as of this encounter Miscellaneous Notes * Telephone Encounter - Rosalie Guerra R.N., CNRN - 04/27/2024 3:28 PM CDT Called and left messages on both lines: - [phone] for Adrianne - [phone] for Adrianne or Valeria Please page me [...] AM CDT Clinical Communication Virtual Review in [address] [phone] 07/15/2024 10:30 AM CDT Appointment Department of Radiology, [facility], in [address] [phone] Xavi Hicks M.D. [address] [place] [phone] 07/15/2024 11:45 AM CDT Office Visit Department of Orthopedic Surgery in [address] [phone] Vel Vinson M.D., M.B.A. [address] [place] [phone] 08/10/2024 12:45 PM CDT Clinical Communication Virtual Review in [address] [phone] 08/12/2024 9:00 AM CDT Appointment Department of Radiology, [facility], in [address] [phone] Fantasma Butt M.D. [address] [place] [phone] Discharge Disposition: Home or Self Care 08/12/2024 11:00 AM CDT Office Visit Department of Radiology, [facility], in [place], [place] [address] [place] [phone] Radha Ojeda P.A.-C., M.S. [address] [place] [address] documented as of this encounter Visit Diagnoses Not on filedocumented in this encounter Additional Health Concerns Infection Onset Date Last Indicated Resolved Time COVID19 Pending 05/03/2024 05/03/2024 05/03/2024 7 :28 PM CDT documented as of this encounter Care Teams Wooling Machine Operator Relationship Specialty Start Date End Date Elsewhere, Pcp PCP - General Internal Medicine 10/03/23 documented as of this encounter
--- OUTSIDE RECORDS SUMMARY | 2024-06-12 08:23 | XMS_ITS | Clinical Summary ---
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 For routine questions regarding patient records, call [phone] during business hours, M-F 8:00 AM - 5:00 PM Central Time. Record requests for emergency care only can be directed to [phone] at any time.[facility] Allergies Active Allergy Reactions Criticality Noted Date [...] (04/17/2020): Added automatically from request for surgery [id number] Obesity Body Mass Index 30-39.9 Adult 03/09/2020 01/05/2024 Hyponatremia 03/09/2020 07/30/2022 Hyperkalemia 03/09/2020 07/30/2022 Cellulitis 03/08/2020 03/20/2020 Cellulitis Foot Right 03/08/20202022 Diabetes Mellitus Type 2 Hyperglycemia 02/18/2017 04/17/2022 Diabetes Mellitus Type 2 Ulcer Foot 04/17/2022 Encounters Date Type Department Care Team Description 05/12/2024 Orders Only Department of Neurologic Surgery in [place], [place] [address] [place] [address] Rosalie Guerra R.N., CNRN Occlusion Carotid Artery Left (Primary Dx); Stenosis Carotid Artery Right 05/03/2024 8:08 AM CDT Anesthesia Event Department of Radiology in [place], [place] [address] [place] [address] Erinn Carrera M.B.B.S. Armour, Trygve K, M.D. 05/03/2024 6:56 AM CDT - 05/04/2024 10:51 AM CDT Hospital Encounter [facility], [facility], [facility], Ninth Floor [address] [place] [phone] Radha Ojeda P.A.-C., M.S. Hal Nguyen M.D., Ph.D. Fantasma Butt M.D. Stenosis Carotid Artery Bilateral Discharge Disposition: Intermediate Facility 04/28/2024 Clinical Communication Department of Neurologic Surgery in [place], [place] [address] [place] [phone] Fantasma Butt M.D. 04/23/2024 Clinical Communication Department of Radiology in [place], [place] [address] [place] [phone] Fantasma Butt M.D. 04/23/2024 Orders Only Department of Radiology, [facility], in [place], [place] [address] [place] [phone] Radha Ojeda P.A.-C., M.S. 04/15/2024 1:00 PM CELL GENETICIST Office Visit Department of Orthopedic Surgery in [address] [address] Vel Vinson M.D., M.B.A. Fracture Femur Shaft Closed Initial Right (HCC) (Primary Dx) 04/15/2024 11:44 AM CELL GENETICIST - 04/15/2024 11:59 PM CELL GENETICIST Hospital Encounter Department of Radiology, [facility], in [place], [place] [address] [place] [phone] Brittney Piña, Jose Francisco IRWIN. Arthroplasty Total Hip Replacement Status Post Right Discharge Disposition: Home or Self Care 04/13/2024 2:00 PM CELL GENETICIST Clinical Communication Virtual Review in [address] [phone] Pre-visit Intake 03/31/2024 Orders Only Department of Radiology, [facility], in [place], [place] [address] [place] [address] Radha Ojeda P.A.-C., MBelkisSBelkis Stenosis Carotid Artery Bilateral (Primary Dx) 03/17/2024 9:45 AM CELL GENETICIST Office Visit Department of Orthopedic Surgery in [place], [place] [address] [place] [address] Ester Vann M.D. Twohey, Chelsie R, MPAS, P.A.-C. Fracture Femur Shaft Closed Initial Right (HCC) (Primary Dx) 03/17/2024 8:40 AM CELL GENETICIST - 03/17/2024 11:59 PM CELL GENETICIST Hospital Encounter Department of Radiology, [facility] in [place], [place] [address] [place] [phone] Lizeth Joe MPAS, P.A.-C. Fracture Femur Shaft [...] drink = 0.6 oz pur e alcohol) [facility] Utilities Answer Date Recorded In the past 12 months has th e [employer], gas, oil, or water [employer] threatened to shut off services in your [...] your living situation today? I have a [facility] place to live 01/15/2024 Sex and Gender Information Value Date Recorded Sex Assigned at Male 07/26/2022 1:30 PM CDT Legal Sex Male 6:41 AM CELL GENETICIST Gender Identity Male 07/26/2022 1:32 PM CDT [...] lb 9.8 oz) 01/15/2024 9:26 A M CELL GENETICIST Height 181 cm (5' 11.26) 01/15/2024 9:26 AM CELL GENETICIST Body Mass Index 29.85 01/15/2024 9:26 AM CELL GENETICIST Plan of Treatment Upcoming Encounters Date Type Department Care Team (Latest Contact Info) Description 07/13/2024 10:00 AM CDT Clinical Communication Virtual Review in [address] [phone] 07/15/2024 10:30 AM CDT Appointment Department of Radiology, [facility], in [address] [phone] Xavi Hicks M.D. [address] [place] [phone] 07/15/2024 11:45 AM CDT Office Visit Department of Orthopedic Surgery in [address] [address] Vel Vinson M.D., M.B.A. [address] [place] [phone] 08/10/2024 12:45 PM CDT Clinical Communication Virtual Review in [address] [phone] 08/12/2024 9:00 AM CDT Appointment Department of Radiology, [facility], in [place], [place] [address] [place] [phone] Fantasma Butt M.D. [address] [place] [address] Discharge Disposition: Home or Self Care 08/12/2024 11:00 AM CDT Office Visit Department of Radiology, [facility], in [place], [place] [address] [place] [phone] Radha Ojeda P.A.-C., M.S. [address] [place] [address] Health Maintenance Due Date Last Done Comments [...] this topic Medical Devices Implanted Type Area Barman Device Identifier Shelf Expiration Date Model / Serial / Lot Grft Stm Pwdr Calc Sulf 10 - [id number] Implanted:Qty: 1 on 01/16/2024 by Ester Vann M.D. at [facility] Bone Growth Stimulator Right: Femur Trusera Ltd 03/19/2026 620-010 / / [id number] Stnt Protege 0.014 0t83x171 - [id number] Implanted:Qty: 1 on 08/09/2022 by Fantasma Butt M.D. at [facility] Cardiac Stent Medtronic 02/19/2024 SECX-8-30- 135 / / [id number] Description:Carotid Stent Small Frag-Screw Yasmany 3.5x16 - [id number] Implanted:Qty: 3 on 2004 Hardware e.g. pins/screws/ rods Depuy Synthes Description:Device Manufactu rer - Synthes. Device Status Text - HARDWARE-7597. K-Wire Smooth S.S. Single 9 .062 - [id number] Implanted:Qty: 1 on 2004 Hardware e.g. pins/screws/ rods [place] Description:Device Manufactu rer - Liliane Angel.. Device [...] HARDWARE-2. Syn Screw Schanz 5.0x250 - [id number] Implanted:Qty: 1 on 01/02/2004 Hardware e.g. pins/screws/ rods Depuy Synthes Description:Device Manufactu rer - Synthes. Device Status Text - HARDWARE-05917. Guide Wire-Ball Tip 3 X 800 - [id number] Implanted:Qty: 1 on 02/03/2009 Hardware e.g. pins/screws/ rods [place] Description:Device Manufactu rer - Liliane Angel.. Device Status Text - HARDWARE- 96364. [facility] Data - [id number]. Wax Bn Hmst 2.5gr - [id number] Implanted:Qty: 1 on 01/06/2024 by Vel Vinson M.D., M.B.A. at [facility] Hardware e.g. pins/screws/ rods Right: Hip Ethicon W31 / / Scrw Trl Acet Ft 6.5x30 - [id number] Implanted:Qty: 1 on 01/06/2024 by Vel Vinson M.D., M.B.A. at [facility] Hardware e.g. pins/screws/ rods Right: Hip Nori Biomet [id number] 09/23/2033 5-30 / / [id number] Scrw Trl Acet Ft 6.5x35 - [id number] Implanted:Qty: 1 on 01/06/2024 by Vel Vinson M.D., M.B.A. at [facility] Hardware e.g. pins/screws/ rods Right: Hip Nori Biomet [id number] 12/28/2032 5-35 / / [id number] Scrw Trl Acet Ft 6.5x20 - [id number] Implanted:Qty: 1 on 01/06/2024 by Vel Vinson M.D., M.B.A. at [facility] Hardware e.g. pins/screws/ rods Right: Hip Nori Biomet [id number] 08/11/2033- 5-20 / / [id number] Scrw Trl Acet Ft 6.5x40 - [id number] Implanted:Qty: 1 on 01/06/2024 by Vel Vinson M.D., M.B.A. at [facility] Hardware e.g. pins/screws/ rods Right: Hip Nori Biomet [id number] 09/11/2033 00-6250-06 5-40 / / [id number] Sleeve Cable Dia2mm Vitallium Branden Miles - [id number] Implanted:Qty: 1 on 01/06/2024 by Vel Vinson M.D., M.B.A. at [facility] Hardware e.g. pins/screws/ rods Right: Hip Liliane 05/28/2028 6704-0-510 / / [id number] Sleeve Cable Dia2mm Vitallium Branden Miles - [id number] Implanted:Qty: 1 on 01/06/2024 by Vel Vinson M.D., M.B.A. at [facility] Hardware e.g. pins/screws/ rods Right: Hip [place] 05/28/2028 6704-0-510 / / [id number] Sleeve Cable Dia2mm Vitallium Branden Miles - [id number] Implanted:Qty: 1 on 01/06/2024 by Vel Vinson M.D., M.B.A. at [facility] Hardware e.g. pins/screws/ rods Right: Hip Liliane 02/22/2028 6704-0-510 / / [id number] Sleeve Cable Dia2mm Vitallium Branden Miles - [id number] Implanted:Qty: 1 on 01/06/2024 by Vel Vinson M.D., M.B.A. at [facility] Hardware e.g. pins/screws/ rods Right: Hip Liliane 04/28/2028 6704-0-510 / / [id number] Sleeve Cable Dia2mm Vitallium Branden Miles - [id number] Implanted:Qty: 1 on 01/06/2024 by Vel Vinson M.D., M.B.A. at [facility] Hardware e.g. pins/screws/ rods Right: Hip Liliane 04/28/2028 6704-0-510 / / [id number] Wre Fix Lq Ss Closed 1.2x30 - [id number] Implanted:Qty: 2 on 01/06/2024 by Vel Vinson M.D., M.B.A. at [facility] Hardware e.g. pins/screws/ rods Right: Hip Nori Biomet 00-1292-06 1-00 / / 3.5/4.5mm Va-Lcp Ppfx Proximal Femur Plate, Right, 12 Holes, 388mm Implanted:Qty: 1 on 01/16/2024 by Ester Vann M.D. at [facility] Hardware e.g. pins/screws/ rods Right: Femur Depuy Synthes 02.221.130 S / / Cbl Grp Cerclg Crmp Ss 1.7x750 - [id number] Implanted:Qty: 1 on 01/16/2024 by Ester Vann M.D. at [facility] Hardware e.g. pins/screws/ rods Right: Femur Depuy Synthes 09/16/2028 298.801.01 S / / [id number] Cbl Grp Cerclg Crmp Ss 1.7x750 - [id number] Implanted:Qty: 1 on 01/16/2024 by Ester Vann M.D. at [facility] Hardware e.g. pins/screws/ rods Right: Femur Depuy Synthes 09/16/2028 298.801.01 S / / [id number] Cbl Grp Cerclg Crmp Ss 1.7x750 - [id number] Implanted:Qty: 1 on 01/16/2024 by Ester Vann M.D. at [facility] Hardware e.g. pins/screws/ rods Right: Femur Depuy Synthes 09/16/2028 298.801.01 S / / [id number] 3.5mm Variable Angle Loking Screw, 32mm Implanted:Qty: 1 on 01/16/2024 by Ester Vann M.D. at [facility] Hardware e.g. pins/screws/ rods Right: Femur Depuy Synthes 02.127.132 / / 3.5mm Variable Angle Loking Screw, 60mm Implanted:Qty: 1 on 01/16/2024 by Ester Vann M.D. at [facility] Hardware e.g. pins/screws/ rods Right: Femur Depuy Synthes 02.127.160 / / 3.5mm Variable Angle Loking Screw, 65mm Implanted:Qty: 1 on 01/16/2024 by Ester Vann M.D. at [facility] Hardware e.g. pins/screws/ rods Right: Femur Depuy Synthes 02.127.165 / / 3.5mm Cortex Screw, 28mm Implanted:Qty: 1 on 01/16/2024 by Ester Vann M.D. at [facility] Hardware e.g. pins/screws/ rods Right: Femur Depuy Synthes 02.200.028 / / 3.5mm Cortex Screw, 50mm Implanted:Qty: 1 on 01/16/2024 by Ester Vann M.D. at [facility] Hardware e.g. pins/screws/ rods Right: Femur Depuy Synthes 02.200.050 / / 3.5mm Cortex Screw, 60mm Implanted:Qty: 1 on 01/16/2024 by Ester Vann M.D. at [facility] Hardware e.g. pins/screws/ rods Right: Femur Depuy Synthes 02.200.060 / / 5.0mm Variable Angle Locking Screw, 46mm Implanted:Qty: 1 on 01/16/2024 by Ester Vann M.D. at [facility] Hardware e.g. pins/screws/ rods Right: Femur Depuy Synthes 02.231.246 / / 4.5mm Cortex Screw, 40mm Implanted:Qty: 1 on 01/16/2024 by Ester Vann M.D. at [facility] Hardware e.g. pins/screws/ rods Right: Femur Depuy Synthes 214.840 / / 4.5mm Cortex Screw, 50mm Implanted:Qty: 1 on 01/16/2024 by Ester Vann M.D. at [facility] Hardware e.g. pins/screws/ rods Right: Femur Depuy Synthes 214.850 / / 4.5mm Cortex Screw, 76mm Implanted:Qty: 1 on 01/16/2024 by Ester Vann M.D. at [facility] Hardware e.g. pins/screws/ rods Right: Femur Depuy Synthes 214.876 / / 5.0mm Variable Angle Locking Screw, 55mm Implanted:Qty: 1 on 01/16/2024 by Ester Vann M.D. at [facility] Hardware e.g. pins/screws/ rods Right: Femur Depuy Synthes 02.231.255 / / Shell Acetab G7 Multi Hl 62mm - [id number] Implanted:Qty: 1 on 01/06/2024 by Vel Vinson M.D., M.B.A. at [facility] Hip Implant Right: Hip Nori Biomet 04/04/2033 298988995 / / [id number] Lnr G7 Szh 50 - [id number] Implanted:Qty: 1 on 01/06/2024 by Vel Vinson M.D., M.B.A. at [facility] Hip Implant Right: Hip Nori Biomet 08/27/2033 816734857 / / [id number] Hip Dist Stem 12w864kg - [id number] Implanted:Qty: 1 on 01/06/2024 by Vel Vinson M.D., M.B.A. at [facility] Hip Implant Right: Hip Encore Medical Angel 09/05/2025 495-24-210 / / [id number] Hip Prox Body 85mm Lat Offset - [id number] Implanted:Qty: 1 on 01/06/2024 by Vel Vinson M.D., M.B.A. at [facility] Hip Implant Right: Hip Encore Medical Angle 11/20/2028 495-01-085 / / [id number] Lnr Act Art 70r71lc - [id number] Implanted:Qty: 1 on 01/06/2024 by Vel Vinson M.D., M.B.A. at [facility] Hip Implant Right: Hip Nori Biomet 08/23/2028 523080495 / / [id number] Fem Hd +7ofst 28 - [id number] Implanted:Qty: 1 on 01/06/2024 by Vel Vinson M.D., M.B.A. at [facility] Hip Implant Right: Hip Nori Biomet 07/17/2029 175441877 / / [id number] Stnt [place] 518 8x80 - [id number] Implanted:Qty: 1 on 05/24/2023 by Almaz Olea M.D. at [facility] Vascular Stent Cook Medical 02/24/2026 S32878 / / [id number] Explanted Type Area Barman Device Identifier Shelf Expiration Date Model / Serial / Lot Cmnt Bn Smp 40gm - [id number] Implanted:Qty: 1 on 05/23/2023 by Vel Vinson M.D., M.B.A. at [facility] Explanted:Qty: 1 on 01/06/2024 by Vel Vinson M.D., M.B.A. at [facility] Bone Cement Right: Hip [place] 6191-1-001 / / Cmnt Bn Smp 40gm - [id number] Implanted:Qty: 1 on 05/23/2023 by Félix Mckeon M.D. at [facility] Explanted:Qty: 1 on 01/06/2024 by Vel Vinson M.D., M.B.A. at [facility] Bone Cement Right: Hip [place] 6191-1-001 / / Cmnt Bn Smp 40gm - [id number] Implanted:Qty: 1 on 05/23/2023 by Félix Mckeon M.D. at [facility] Explanted:Qty: 1 on 01/06/2024 by Vel Vinson M.D., M.B.A. at [facility] Bone Cement Right: Hip Liliane 6191-1-001 / / Screw-Hgpii S-Tap 6.5 X 15mm - [id number] Implanted:Qty: 1 on 02/03/2009 Explanted:Qty: 1 on 05/23/2023 by Vel Vinson M.D., M.B.A. at [facility] Hardware e.g. pins/screw s/rods Nori Biomet Description:Device Manufactu rer - Nori. Device Status Text - HARDWARE-59493. Small Frag-Screw Yasmany 3.5x12 - Amaral [id number] Implanted:Qty: 1 on 01/02/2004 Explanted:Qty: 1 on 05/23/2023 by Vel Vinson M.D., M.B.A. at [facility] Hardware e.g. pins/screw s/rods Depuy Synthes Description:Device Manufactu rer - Synthes. Device Status Text - HARDWARE-7595. Small Frag-Screw Yasmany 3.5x16 - Amaral [id number] Implanted:Qty: 2 on 01/02/2004 Explanted:Qty: 2 on 05/23/2023 by Vel Vinson M.D., M.B.A. at [facility] Hardware e.g. pins/screw s/rods Depuy Synthes Description:Device Manufactu rer - Synthes. Device Status Text - HARDWARE-7597. Pelvic Re-Plate Cvd 3.5x 6ho - Amaral [id number] Implanted:Qty: 1 on 01/02/2004 Explanted:Qty: 1 on 05/23/2023 by Félix Mckeon M.D. at [facility] Hardware e.g. pins/screw s/rods Depuy Synthes Description:Device Manufactu rer - Synthes. Device Status Text - HARDWARE-7366. Right Hip Screw-Hgpii S-Tap 6.5 X 30mm - Amaral [id number] Implanted:Qty: 2 on 02/03/2009 Explanted:Qty: 2 on 05/23/2023 by Vel Vinson M.D., M.B.A. at [facility] Hardware e.g. pins/screw s/rods Nori Biomet Description:Device Manufactu rer - Nori. Device Status Text - HARDWARE-58458. Screw-Hgpii S-Tap 6.5 X 35mm - Amaral [id number] Implanted:Qty: 1 on 02/03/2009 Explanted:Qty: 1 on 05/23/2023 by Vel Vinson M.D., M.B.A. at [facility] Hardware e.g. pins/screw s/rods Nori Biomet Description:Device Manufactu rer - Nori. Device Status Text - HARDWARE-93644. 6.5 Saniya Screw-16mm Thread 65 - Amaral [id number] Implanted:Qty: 1 on 01/02/2004 Explanted:Qty: 1 on 05/23/2023 by Vel Vinson M.D., M.B.A. at [facility] Hardware e.g. pins/screw s/rods Depuy Synthes Description:Device Manufactu rer - Synthes. Device Status Text - HARDWARE-56405. Implex-Shell Hedro 54mm - Amaral [id number] Implanted:Qty: 1 on 02/03/2009 Explanted:Qty: 1 on 05/23/2023 by Vel Vinson M.D., M.B.A. at [facility] Hip Implant Other/Legacy - See Implant Description Nori Biomet Description:Device Manufactu rer - Nori. Body Location - Other. Right. Device Status Text - HIP IMP-156815. Fieldale-Stem [place] 8 Hi - Amaral [id number] Implanted:Qty: 1 on 02/03/2009 Explanted:Qty: 1 on 05/23/2023 by Vel Vinson M.D., M.B.A. at [facility] Hip Implant Other/Legacy - See Implant Description [employer]now [employer] Description:Device Manufactu rer - J & J [employer]o. Body Location - Other. Right. Device Status Text - HIP IMP-414581. Nori Liner 0 Degree 32 X 54m - Amaral [id number] Implanted:Qty: 1 on 02/03/2009 Explanted:Qty: 1 on 05/23/2023 by Vel Vinson M.D., M.B.A. at [facility] Hip Implant Other/Legacy - See Implant Description Nori Biomet Description:Device Manufactu rer - Nori. Body Location - Other. Right. Device Status Text - HIP IMP-948209. Dep. Head Prodigy 32 + 1.0 - Amaral [id number] Implanted:Qty: 1 on 02/03/2009 Explanted:Qty: 1 on 05/23/2023 by Vel Vinson M.D., M.B.A. at [facility] Hip Implant Other/Legacy - See Implant Description [employer] Description:Device Manufactu rer - J & J Ortho. Body Location - Other. Right. Device Status Text - HIP IMP-757168. Hip Stm Prs Cmnt Rt 3 200 - [id number] Implanted:Qty: 1 on 05/23/2023 by Félix Mcekon M.D. at [facility] Explanted:Qty: 1 on 01/06/2024 by Vel Vinson M.D., M.B.A. at [facility] Hip Implant Right: Hip Depuy Synthes 08/16/2032 [id number] / / [id number] Lnr Emp Aox Std +4 40x54 - [id number] Implanted:Qty: 1 on 05/23/2023 by Félix Mckeon M.D. at [facility] Explanted:Qty: 1 on 01/06/2024 by Vel Vinson M.D., M.B.A. at [facility] Hip Implant Right: Hip Depuy Synthes 02/16/2027 0 / / [id number] Fem Hd Art +12ofst 40 - [id number] Implanted:Qty: 1 on 05/23/2023 by Vel Vinson M.D., M.B.A. at [facility] Explanted:Qty: 1 on 01/06/2024 by Vel Vinson M.D., M.B.A. at [facility] Hip Implant Right: Hip Depuy Synthes 02/16/2033 0 / / [id number] Procedures Procedure Name Priority Date/Time Associated Diagnosis [...] 9:38 AM CDT IR CEREBRAL INTRACRANIAL ARTERY LEAD SPRINKLER RAD - Routine (most inpatients and all [...] inpatients and all outpatients) 04/15/2024 12:08 PM CELL GENETICIST Arthroplasty Total Hip Replacement Status Post Right DX FEMUR RIGHT 2 VIEWS RAD - Routine (most inpatients and all outpatients) 03/17/2024 9:04 AM CELL GENETICIST Fracture Femur Shaft Closed Initial Right (HCC) HEMOGLOBIN A1C, B Routine 01/07/2024 3:3 5 AM CELL GENETICIST COLONOSCOPY Routine 12/02/2023 11:10 AM CDT HEPATITIS B SURFACE ANTIGEN Routine 06/21/2023 4:18 PM CDT LIPID PANEL, S STAT 05/24/2023 5:59 AM CDT ALBUMIN, RANDOM, U Routine 03/10/2023 11:30 AM CELL GENETICIST Diabetes Mellitus Type 2 Ulcer Foot Hyperglycemic (HCC) from Last 3 Months or Most Recently Relevant to Health Maintenance Results * (ABNORMAL) Glucose, POCT (05/04/2024 8:22 AM CDT) Only the most recent of6 resultswithin the time period is included. Pathologist [facility] Glucose, POCT, B 171(H) 70 - 140 mg/dL 05/04/2024 8:29 AM CDT PCLX Site Capillary 05/04/2024 8:29 AM CDT PCLX Blood 05/04/2024 8:22 AM CDT 05/04/2024 8:30 AM CDT us Unknown Provider LAB POCT ORDERABLES-MANUAL Cata l Result POC [facility] [address] [place] [address], [facility] PCLX [facility] [place] POC [address] [place] [address] * SARS Coronavirus 2, PCR Rapid Symptomatic (05/03/2024 7:04 PM CDT) [facility] SARS CoV-2, PCR, Rapid, V Undetected Undetected 05/03/2024 7:27 PM CDT [facility] SARS Coronavirus 2, Rapid, Source Swab, Nasopharynx 05/03/2024 7:04 PM CDT [facility] Swab (Nasopharynx) 05/03/2024 7:04 PM CDT 05/03/2024 7:04 PM CDT us Krista Cash APRN, C. N.P., D.N.P., M.S.N. LAB MICROBIOLOGY - GENERAL ORDERABLES Final Result [facility] [address] [place] [address], [facility] [place] [address] [place] [address] * US Carotid Left (05/03/2024 10:58 AM [...] normal distal ICA in accordance with [place] Symptomatic Carotid Endarterectomy Trial (NASCET). Procedure Note [...] nal Result * IR Cerebral Intracranial Artery LEAD SPRINKLER (05/03/2024 9:33 AM CDT) Anatomical Region Laterality [...] AM CDT EXAM: IR CEREBRAL INTRACRANIAL ARTERY LEAD SPRINKLER COMPARISON: Ultrasound carotid artery bilateral February 19, [...] Seldinger technique with insertion of a 7 Croatian sheath into the right radial artery. 6000 [...] - 05/04/2024 EXAM: IR CEREBRAL INTRACRANIAL ARTERY LEAD SPRINKLER COMPARISON: Ultrasound carotid artery bilateral February 19, [...] viaSeldinger technique with insertion of a 7 Croat[place] sheath into the rightradial artery. 6000 units [...] DEVICE Fi nal Result Performing Organization Address [facility] de Phone Number [facility] [address] [facility] [address] [place] [id number] * Creatinine, POCT (05/03/2024 7:48 AM CDT) Only the most recent of2 resultswithin the time period is included. Creatinine, POCT, B 0.8 0.7 - 1.4 mg/dL 05/03/2024 7:50 AM CDT PCDT Comment: ----ADDITIONAL INFORMATION---- Performed at the Point of Care Blood 05/03/2024 7:48 AM CDT 05/03/2024 7:50 AM CDT us Unknown Provider LAB POCT ORDERABLES - DEVICE Fi nal Result Performing Organization Address [facility] de Phone Number [facility] [address] [place], [place] [address] POC [address] [place] [address] * DX Hip And Pelvis Right 2-3 Views (04/15/2024 12:08 PM CELL GENETICIST) Anatomical Region Laterality Modality Lower Extremity, Pelvis, Hip , Musculoskeletal RST LOS, Musculoskeletal ARZ LOS, Muskuloskeletal FLA LOS Right Digit al Radiography Impressions 04/15/2024 12:14 PM CELL GENETICIST Revision right total hip arthroplasty with long-stem femoral component. Lateral plate and screw fixation across a healing periprosthetic fracture of the distal femoral shaft. Persistent linear lucency is present at segments of the fracture line. No hardware failure. Postoperative deformity right hemipelvis. Degenerative changes lower lumbar spine and both sacroiliac joints. Narrative 04/15/2024 12:14 PM CELL GENETICIST EXAM: DX HIP AND PELVIS RIGHT 2-3 [...] Femur Right 2 Views (03/17/2024 9:04 AM CELL GENETICIST) Anatomical Region Laterality Modality Lower Extremity, Femur, Musc uloskeletal RST LOS, Musculoskeletal ARZ LOS, Muskuloskeletal FLA LOS Right Digit al Radiography Impressions 03/17/2024 9:07 AM CELL GENETICIST As demonstrated on the 01/16/2024 radiographs, postoperative changes of plate and screw fixation across a mildly displaced periprosthetic fracture of the mid to distal femur. Alignment is unchanged. The fracture remains apparent. Antibiotic beads have been removed. Again seen is a long-stem ISRRAEL, which is unchanged. Narrative 03/17/2024 9:07 AM CELL GENETICIST EXAM: DX FEMUR RIGHT 2 VIEWS Procedure [...] bowel preparation was evaluated using the BBPS ([place] Bowel Preparation Scale) with scores of: Right [...] ORDERABL ES Final Result Performing Organization Address [facility] Co de Phone Number [facility] NA * Hepatitis B Surface Antigen (06/21/2023 4:18 PM CDT) HBs Antigen, S Negative Negative 06/23/2023 11:08 AM CDT [facility] Blood (Blood, Peripheral Draw) 06/21/2023 4:18 PM CDT 06/23/2023 7:24 AM CDT Lachelle Crawford M.D. LAB MICROBIOLOGY - BLOOD LÓPEZ KNOWLES Final Result Performing Organization Address [facility] Co de Phone Number [facility] [address] [place] [address] [facility] [address] [place] [address] * (ABNORMAL) Lipid Panel (05/24/2023 5:59 AM [...] M.D. LAB BLOOD ADD-ON Final R esult [facility] [address] [place] [address], [facility] [address] [place] [address] * Albumin, Random, Urine (03/10/2023 11:30 AM CELL GENETICIST) Microalbumin <12.0 mg/L 03/10/2023 11:54 AM CELL GENETICIST RDWG Comment:If clinically indica faviola, contact the lab for additional testing. Creatinine 112 mg/dL 03/10/2023 11:54 AM CELL GENETICIST RDWG Albumin/Creatinine Ratio <11 <17 mg/g 03/10/2023 11:54 AM CELL GENETICIST RDWG Comment: This ratio may not correspond with the reference range because one or both of the values used to calculate the ratio was above or below the quantification limits. Urine (Urine, Midstream) 03/10/2023 11:30 AM CELL GENETICIST 03/10/2023 11:30 AM CELL GENETICIST Doug Lima M.D. LAB URINE ORDERABLES Final R esult [facility] [address] [place] [address], [facility] RDWG [facility] [address] [place] [address] from Last 3 Months or Most Recently Relevant to Health Maintenance Insurance [facility] RONY SUAREZ [id number] [employer] Advance Directives For more information, please contact: [phone] Documents on File Type Date Recorded Patient Supervisor Cytology Expl anation Advance Directives 01/15/2024 10:52 AM [...] Name Relationship Healthcare Agent Relationship Communication [facility] Agent Annamaria Riley [facility] Health Care Agent Care Teams Terrazzo Finisher Helper Relationship Specialty Start Date End Date Elsewhere, Pcp PCP - General Internal Medicine 10/03/23
[2024-06-12 08:25] LABS: Basophils Percent Auto 0.3 % (0.0-3.0); Hematocrit 30.4 % (37.0-53.0); Hemoglobin* 9.9 gm/dL (13.5-17.5); Immature Granulocytes Pct Auto 1.7 %; Lymphocytes Percent Auto 8.5 % (20-44); Mean Corpuscular HGB Conc 33 gm/dL (32-36); Mean Corpuscular Hemoglobin 28 pg (26-34); Mean Corpuscular Volume 86 fL (80-100); Monocytes Percent Auto 10.1 % (0.0-11.0); Neutrophils Percent Auto 77.4 % (42.0-72.0); Platelet Count* 250 K/uL (140-440); RDW Coefficient of Variation % 15.6 % (11.5-15.5); Red Blood Count 3.55 m/uL (4.30-5.90); Slide Review Reflex No; White Blood Count* 15.93 K/uL (4.50-11.00)
[2024-06-12 08:38] LABS: Troponin, Point-of-Care* 0.02 ng/ml (0.01-0.04)
[2024-06-12 08:38] LABS: Lactate* 1.5 mmol/L (0.5-1.9)
[2024-06-12 08:43] LABS: Chloride* 98 mmol/L (96-114); Potassium* 4.1 mmol/L (3.6-5.1); Sodium* 132 mmol/L (135-149)
[2024-06-12 08:46] LABS: Blood Urea Nitrogen* 20 mg/dL (7-30); Creatinine* 0.6 mg/dL (0.5-1.5); Estimated Glomerular Filt Rate 111 ml/min
[2024-06-12 08:47] LABS: Anion Gap 6 mEq/L (7-15); Calcium* 8.1 mg/dL (8.4-10.6); Carbon Dioxide* 28 mmol/L (20-32); Glucose* 223 mg/dL (60-115)
[2024-06-12 08:54] LABS: PCR FLU A Negative PCR FLU A (Negative); PCR FLU B Negative PCR FLU B (Negative); PCR RSV Negative PCR RSV (Negative); SARS PCR* Negative SARS-CoV-2 (Negative)
[2024-06-12] MEDS: DOXYCYCLINE HYCLATE 100 MG PO (10:39)
== END 2024-06-12 11:07 | disposition home or self-care (01) ==
PROVIDERS: Emergency Provider Emergency Medicine Emergency Medical Services; PCP Family Medicine
DX: J22 Unspecified acute lower respiratory infection (principal); R06.02 Shortness of breath
CPT/HCPCS: 36415; 71045; 80048; 83605; 84484; 85025; 87631; 93005; 99284; 99285; A9270

== ENCOUNTER 2024-06-12 11:02 | Outpatient (CLI) | payer OTHER, SELFPAY | END 2024-06-12 11:03 | disposition home or self-care (01) | LOC: AMB 06-14 10:45 | PROVIDERS: PCP Family Medicine; Visit Provider Internal Medicine | DX: R50.9 Fever, unspecified (principal); Z74.01 Bed confinement status | CPT/HCPCS: A0425; A0428 ==

== ENCOUNTER 2024-06-17 01:49 | Outpatient (CLI) | payer OTHER, SELFPAY | END 2024-06-17 01:50 | disposition home or self-care (01) | LOC: AMB 06-18 11:43 | PROVIDERS: PCP Family Medicine; Visit Provider Family Medicine | DX: S71.001A Unspecified open wound, right hip, initial encounter (principal); Z96.641 Presence of right artificial hip joint | CPT/HCPCS: A0425; A0429 ==

== ENCOUNTER 2024-07-22 18:02 | Outpatient (CLI) | payer OTHER, SELFPAY | END 2024-07-22 18:03 | disposition home or self-care (01) | PROVIDERS: PCP Family Medicine; Visit Provider Family Medicine | DX: M25.551 Pain in right hip (principal) | CPT/HCPCS: A0425; A0429 ==

== ENCOUNTER 2024-10-28 15:25 | Outpatient (CLI) | payer OTHER, SELFPAY ==
--- NOTE | 2024-10-28 15:00 | CRLHL7_ITS ---
For Patients: As a result of the Century Cures Act, medical imaging exams and procedure reports are released immediately into your electronic medical record. You may view this report before your referring provider. If you have questions, please contact your health care provider. INDICATION: Follow up cluster right lung nodules/nodular infiltrate TECHNIQUE: Volumetric helical scanning of the thorax was performed without IV contrast material. Coronal and sagittal reconstructions were obtained. COMPARISON: Chest CT of 03/04/2024 FINDINGS: The previously demonstrated right lower lobe nodular infiltrate has resolved. The lungs are now clear. There is no significant airway abnormality. No pleural effusion is demonstrated. There is no mediastinal or hilar lymphadenopathy. The heart size is normal. Mild pericardial thickening along with pericardial calcifications are again demonstrated. Images of the upper abdomen demonstrates stones in the gallbladder IMPRESSION: 1. Resolution of previously demonstrated right lower lobe nodular infiltrate. Lungs are now clear. 2. Mild pericardial thickening and calcification, as before. 3. Cholelithiasis. Please note that all CT scans at this facility use dose modulation, iterative reconstruction, and/or weight-based dosing when appropriate to reduce radiation dose to as low as reasonably achievable. Dictated by Saw Mcgee MD @ 10/29/2024 10:02:54 AM (Electronically Signed)
== END 2024-10-28 15:26 | disposition home or self-care (01) ==
PROVIDERS: PCP Family Medicine; Visit Provider Nurse Practitioner Gerontology
DX: R91.1 Solitary pulmonary nodule (principal); I31.1 Chronic constrictive pericarditis; K80.20 Calculus of gallbladder without cholecystitis without obstruction
CPT/HCPCS: 71250

== ENCOUNTER 2024-10-29 12:05 | Outpatient (CLI) | payer OTHER, SELFPAY | END 2024-10-29 12:06 | disposition home or self-care (01) | LOC: AMB 11-01 09:49 | PROVIDERS: PCP Family Medicine; Visit Provider Family Medicine | DX: S09.90XA Unspecified injury of head, initial encounter (principal); W04.XXXA Fall while being carried or supported by other persons, initial encounter; Y93.F2 Activity, caregiving, lifting; Y92.039 Unspecified place in apartment as the place of occurrence of the external cause | CPT/HCPCS: A0425; A0433 ==

== ENCOUNTER 2024-10-29 12:31 | Emergency (ER) | payer OTHER, SELFPAY ==
[2024-10-29] VITALS (34 sets, daily range): BP systolic 90–151; BP diastolic 45–92; PULSE 58–118; RESP 16–18; TEMP 36.3; O2SAT 82–99; BMI 31.4
--- NOTE | 2024-10-29 13:10 | CRLHL7_ITS ---
For Patients: As a result of the Century Cures Act, medical imaging exams and procedure reports are released immediately into your electronic medical record. You may view this report before your referring provider. If you have questions, please contact your health care provider. INDICATION: History of infarct. Fell on anticoagulation. COMPARISON: None TECHNIQUE: CT examination of the head was performed as axial sections without intravenous contrast. Images were obtained from the vertex of the skull through the skull base. Please note that all CT scans at this facility use dose modulation, iterative reconstruction, and/or weight-based dosing when appropriate to reduce radiation dose to as low as reasonably achievable. FINDINGS: There is a broad area of left MCA distribution encephalomalacia. Most of the hyperdensities in this area are remaining gliotic rims of cortical tissue. However, there is 1 focal area centrally located within this old infarct measuring about 1 centimeter. This is best seen on coronal image 61. This could represent a hemorrhage within an area of encephalomalacia. There are no other findings suggesting hemorrhage There are involutional changes. There is mild to moderate cortical atrophy and there is [id number] white matter disease. There is no hydrocephalus. The visualized portions of the orbits are normal in appearance. The osseous structures are normal in appearance with no sign of abnormality in the skull base or calvarium. I discussed the above findings with Dr. Main at 1:40 a.m. on October 29, 2024 IMPRESSION: 1. Broad area of encephalomalacia related to an old left MCA infarct. 2. Focal hyperdensity within the this area measuring about 1 centimeter. This represent hemorrhage though a dense area of gliotic infarcted brain tissue is possible. This could be distinguished by MRI if required clinically. 3. Atrophy and white matter disease. Please note that all CT scans at this facility use dose modulation, iterative reconstruction, and/or weight-based dosing when appropriate to reduce radiation dose to as low as reasonably achievable. Dictated by Ede Ochoa MD @ 10/29/2024 1:44:48 PM (Electronically Signed)
--- NOTE | 2024-10-29 13:11 | ED_ITS ---
HPI - General Adult General Chief complaint: Fall/Minor Trauma Stated complaint: Fall Time Seen by Provider: 10/29/24 12:41 Source: patient and EMS Limitations: other History of Present Illness HPI narrative: 59-year-old male with a notable history of a prior stroke that has left him with significant right-sided movement deficits presents to the emergency department by EMS. He had a fall in his longterm facility. Unfortunately there was a equipment failure and the strap slipped off of the EZ stand device that they were using, he fell to the ground and struck the back of his head on the ground. There was no loss of consciousness. No focal neurological changes are noted. It was like he has a history of anticoagulation for atrial fibrillation but his records indicate that this medicine was stopped on October 14. I can not find any medical documentation as to why that would be. He definitely still takes aspirin. He unfortunately was not able to fill in the details of his anticoagulation history. He denies any headache. He denies pain in any other areas. His right-sided movement deficits are chronic. There did not appear to be any other injuries from staff. They attended him quickly of course as they were present at the time of the equipment failure and brought him in for evaluation. He denies is not changes, no neck or chest pain. He has not been having any symptoms of illness recently. Appetite has been normal. He is not aware of any other medication changes. Past medical history is most notable for the history of the stroke which has left him with right-sided deficits. 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 His medications are reviewed. The only discrepancy is of course whether not he is still taking the anti a coagulants, it appears he is no longer using those though as said above, I do not know the reasons why. He has not had any recent surgery. Nonsmoker. ROS is notable for the musculoskeletal symptoms as above only. Otherwise he denies times 12 systems. Related Data Home Medications ?Medication ?Instructions ?Recorded ?Confirmed aspirin 81 mg chewable tablet 1 tab PO DAILY 11/03/23 10/29/24 oxycodone 5 mg tablet 5 - 10 mg PO Q4H PRN pain 10/29/24 amlodipine 5 mg tablet 5 mg PO DAILY 03/04/2410/29 atorvastatin 40 mg tablet 40 mg PO HS 03/04/24 5 cefadroxil 500 mg capsule 500 mg PO BID 03/04/2403/04 insulin NPH isoph U-100 human 100 8 unit subcut QAM Wi th meal 03/04/24 10/29/24 unit/mL (3 mL) subcutaneous pen (Novolin N FlexPen) levetiracetam 100 mg/mL oral 750 mg PO BID 03/04/24 solution pantoprazole 40 mg tablet,delayed 40 mg PO DAILY 03/0410/29/24 release sertraline 50 mg tablet 100 mg PO DAILY 03/04/2402/10 acetaminophen 500 mg tablet 1,000 mg PO TID 03/05/24 0 10/29/24 calcium 315 mg (as 1 tab PO BID 03/05/24 citrate)-vitamin D3 6.25 mcg (250 unit) tablet carboxymethylcellulose sodium 0.5 2 drp ophthalmic (ey e) QID PRN 03/05/24 10/29/24 % eye drops in a dropperette (Lubricant Eye Drops) nystatin 100,000 unit/gram topical 1 applic topical BI D 03/05/24 10/29/24 cream polyethylene glycol 3350 17 17 g PO DAILY 03/05/2402/10 gram/dose oral powder sennosides 8.6 mg tablet (senna) 8.6 mg PO BID 5 10/29/24 furosemide 20 mg tablet 20 mg PO DAILY 10/29/2410/18 Previous Rx's ?Medication ?Instructions ?Recorded doxycycline hyclate 100 mg capsule 100 mg PO BID 7 day s #14 caps 06/12/24 Allergies Allergy/AdvReac Type Severity Reaction Status Date / Time No Known Drug Allergies Allergy Verified 10/29/24 13:00 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 (ICD-10) Afib ?I48.91 - Unspecified atrial fibrillation (ICD-10) Stroke ?I63.9 - Cerebral infarction, unspecified (ICD-10) Surgical History H/O total hip arthroplasty ?Z96.649 - Presence of unspecified artificial hip joint (ICD-10) Social History What is your current living situation?: I presently have a place to live Problems where you live: no known problems Problems where you live details: n/a In the past 12 months, utilities in danger of being shut off: no In past 12 months, lack of transportation kept you from medical appts, meetings, work, or getting things needed for daily living: no In the past 12 mos, have been you worried that your food would run out before you had money to buy more?: never true In the past 12 mos, the food you bought just didn't last and you didn't have money to buy more?: never true Highest level of school completed/degree received: high school graduate Smoking Status: Never smoker How often do you have a drink containing alcohol: never AUDIT-C Alcohol total score: 0 Non-prescribed substance use: denies use Caffeine: Yes How often does anyone, including family, friends and others, physically hurt you : never How often does anyone, including family, friends and others, insult or talk down to you: never How often does anyone, including family, friends and others, threaten you with harm: never How often does anyone, including family, friends and others, scream or curse at you: never service: Yes Exam Const: Vital Signs, click to edit/add: Vital Signs - 24 hr 10/29/24 12:39 10/29/24 13:40 10/29/24 13:54 Temperature 97.3 F L Pulse Rate 62 Pulse Rate [Pulse Oximeter] 71 Respiratory Rate 16 16 Blood Pressure 95/58 L 90/51 L Blood Pressure [Le ft Upper Arm] 122/55 L Pulse Oximetry 98 98 [facility] 10/29/24 14:05 10/29/24 14:08 10/29/24 14:11 Temperature Pulse Rate 58 L 59 L 60 Pulse Rate [Pulse Oximeter] Respiratory Rate Blood Pressure 91/59 L 97/45 L Blood Pressure [Le ft Upper Arm] Pulse Oximetry 96 96 96 Oxygen Delivery Sd thod 10/29/24 14:15 10/29/24 14:17 10/29/24 14:18 Temperature Pulse Rate 64 66 65 Pulse Rate [Pulse Oximeter] Respiratory Rate Blood Pressure 107/55 L Blood Pressure [Le ft Upper Arm] Pulse Oximetry 91 93 92 [facility] 10/29/24 14:30 10/29/24 14:32 10/29/24 14:45 Temperature Pulse Rate 66 60 Pulse Rate [Pulse Oximeter] Respiratory Rate Blood Pressure 109/62 Blood Pressure [Le ft Upper Arm] Pulse Oximetry 91 96 [facility] 10/29/24 14:47 10/29/24 14:48 10/29/24 15:00 Temperature Pulse Rate 62 64 66 Pulse Rate [Pulse Oximeter] Respiratory Rate 16 Blood Pressure 99/62 Blood Pressure [Le ft Upper Arm] Pulse Oximetry 97 96 96 [facility] 10/29/24 15:02 10/29/24 15:03 10/29/24 15:53 Temperature Pulse Rate 66 66 62 Pulse Rate [Pulse Oximeter] Respiratory Rate 18 Blood Pressure 115/66 143/59 H Blood Pressure [Le ft Upper Arm] Pulse Oximetry 96 95 94 [facility] 10/29/24 16:32 10/29/24 16:54 10/29/24 17:39 Temperature Pulse Rate 60 118 H 63 Pulse Rate [Pulse Oximeter] Respiratory Rate Blood Pressure Blood Pressure [Le ft Upper Arm] Pulse Oximetry 92 82 L 98 Oxygen Delivery Sd thod 10/29/24 17:40 10/29/24 17:42 10/29/24 17:45 Temperature Pulse Rate 68 63 63 Pulse Rate [Pulse Oximeter] Respiratory Rate Blood Pressure 151/75 H 139/68 Blood Pressure [Le ft Upper Arm] Pulse Oximetry 97 96 95 [facility] 10/29/24 18:00 10/29/24 18:15 Temperature Pulse Rate 63 73 Pulse Rate [Pulse Oximeter] Respiratory Rate Blood Pressure Blood Pressure [Le ft Upper Arm] Pulse Oximetry 94 98 Oxygen Delivery Me thod Documenting provider has reviewed patient's vital signs: yes Common normals: no apparent distress General appearance: cooperative and comfortable HENMT: Other: There are no open lacerations from the fall. There is an area of swelling just above the occiput near the midline, slightly to the right consistent with most likely hematoma I do not appreciate any major defects that would make me suspicious of a skull fracture. Area of swelling is about 4 cm long and about 2 cm wide. It is not fluctuant. He does not exhibit tenderness with palpation of it. The skin above it is not broken. No other areas of injury are appreciated. No injuries. Open and closes his jaw normally. No signs of new dental injury though he does have a lot of dental wear. Eye: Common normals: PERRL, EOMs intact bilaterally and conjunctivae normal General eye: normal appearance of both eyes Conjunctiva: conjunctiva(e) normal Pupil: PERRL Neck & C-Spine: Common normals: full ROM and no lymphadenopathy General: normal visual inspection Chest: Common normals: inspection of chest normal Resp: Common normals: normal respiratory effort and no use of accessory muscles Effort & inspection: able to speak in complete sentences Cardio: Common normals: regular rate, regular rhythm, S1 normal heart sound, S2 normal heart sound and no murmurs Rate: regular rate Rhythm: regular rhythm Heart sounds: S1 normal and S2 normal GI: Common normals: Normal to inspection, nondistended, normoactive bowel sounds present, soft to palpation, non-tender, no hepatosplenomegaly and no masses Palpation: soft and no hepatosplenomegaly Extremity: Other: Right arm and they are contracted but he does have some movement about a 2/5 strength, slow but purposeful. More movement in the upper extremity and hand than in the other extremity areas on the right. Left side without deficits. No palpable defects or tenderness to the clavicle, shoulder, upper arm, elbow, wrist, hand, hips, femur, knees, ankles or feet bilaterally. No tenderness to palpation of the chest curiel or neck. Neuro: Other: Significant right-sided movement deficits as well as slight slurring of the speech. Appears baseline per patient. Psych: Attitude: engaged Activity/motor behavior: appropriate eye contact Mood and affect: euthymic mood Skin: Common normals: no rashes or lesions noted General skin exam: no rashes or lesions noted Course Course ED Course: 59-year-old male with fall from slightly elevated height onto hard ground surface, unprotected. I do not think that he is currently on a Echevarria act but he certainly is on aspirin. There is enough of a hematoma that I do think CT is warranted. Rationale reviewed with patient. Since he did not have any medical factors contributing to the fall and this was purely mechanical, I do not think he needs additional medical workup. Will obtain head CT. If negative anticipate discharge. Update: Small area of artifact verses hemorrhage verses dense gliosis per Radiology noted in the area of previous left MCA distribution stroke. I was able to speak with neuro surgery from [place], patient remains neurologically stable. Family is present and agrees that he does seem at baseline as well. Patient continues to not have any pain. At this time, Neurosurgery team is recommending repeat scan 6 hours from the 1st. If any neurological decline or signs of expansion of the hyperdense area, we would call them back. If stable, assume scar tissue and no further treatment needed. He would recommend holding anticoagulants for 5 days, then resuming. Will call back if any clinical worsening or signs of expansion on repeat CT scheduled for 6 hours from now. Reevaluation(s) Time of Reevaluation #1: 19:42 Reevaluation #1: Re-evaluated patient. Denies headache. I re-examined the scalp and hematoma and bump have not enlarged in any way. Visual tracking is stable. He still has willing of toes and fingers on his affected side. Left side still baseline and normal. Patient able to speak with me. Denies any complaints at this time. I also speak with his sister. Let her know the CT scan is stable. It is difficult to tell if this was scar tissue or a small area of bleeding that has stopped but nonetheless no intervention is recommended right now based on the Neurosurgery recommendations. They have thought it would be a good idea out of an abundance of caution to hold the Xarelto for 5 days, then resume. This will be recommended. Continue the aspirin in the interim. Ambulance transfer will be arranged. Vital Signs Vital signs: Initial Vital Signs Temperature 97.3 F L 10/29/24 12:39 Temperature Source Temporal Artery Scan 10/29/24 12:39 Pulse Rate 71 10/29/24 12:39 Respiratory Rate 16 10/29/24 12:39 Blood Pressure 122/55 L 10/29/24 12:39 Blood Pressure Mean 77 10/29/24 12:39 Blood Pressure Position Sitting 10/29/24 12:39 Pulse Oximetry 98 10/29/24 12:39 Oxygen Delivery Method Room Air 10/29/24 12:39 Vital Signs Temperature 97.3 F L 10/29/24 12:39 Pulse Rate 71 10/29/24 12:39 Respiratory Rate 16 10/29/24 12:39 Blood Pressure 122/55 L 10/29/24 12:39 Pulse Oximetry 98 10/29/24 12:39 Oxygen Delivery Method Room Air 10/29/24 12:39 Temperature 97.3 F L 10/29/24 12:39 Pulse Rate 73 10/29/24 18:15 Respiratory Rate 18 10/29/24 15:53 Blood Pressure 139/68 10/29/24 17:42 Pulse Oximetry 98 10/29/24 18:15 Oxygen Delivery Method Room Air 10/29/24 15:53 Medical Decision Making Imaging Data CT scan - head: Attestation: I have reviewed the pertinent imaging results. My impression: Huge old left MCA stroke. Focal white area in the center concerning for possible hemorrhage versus scar tissue process. No major soft tissue swelling or signs of bleeding in the area of injury on the occiput Radiologist's impression: IMPRESSION: 1. Broad area of encephalomalacia related to an old left MCA infarct. 2. Focal hyperdensity within the this area measuring about 1 centimeter. This represent hemorrhage though a dense area of gliotic infarcted brain tissue is possible. This could be distinguished by MRI if required clinically. 3. Atrophy and white matter disease. Please note that all CT scans at this facility use dose modulation, iterative reconstruction, and/or weight-based dosing when appropriate to reduce radiation dose to as low as reasonably achievable. Dictated by Ede Ochoa MD @ 10/29/2024 1:44:[address] without contrast: Attestation: I have reviewed the pertinent imaging results. My impression: Stable enhancement within area of old stroke. Certainly no growth or new areas of bleeding. Radiologist's impression: IMPRESSION: Stable nodular area of increased attenuation within area of old left MCA distribution infarct. Please note that all CT scans at this facility use dose modulation, iterative reconstruction, and/or weight-based dosing when appropriate to reduce radiation dose to as low as reasonably achievable. Dictated by Edgard Gomez MD @ 10/29/2024 7:17:17 PM Discharge Plan Discharge Clinical Impression: Contusion of head Patient Disposition: [facility] Instructions: Head Injury (DC) Additional Instructions: As we discussed, additional monitoring in the emergency department and repeat head CT was performed to make sure that the area of abnormality that we were seeing in the previous area of stroke was not a new head bleed. The repeat CT appear stable. This does favor that the lesion is scar tissue related but we cannot tell for sure. It is at least certainly stable and therefore does not need intervention at this time. The neurosurgeon has recommended that we hold anticoagulants, specifically the Xarelto for 5 days, then resume as normal. He will continue his aspirin in the meantime. No further follow-up testing for this condition is needed. There were no signs of skull fracture or other significant injury from the fall either. Please keep all pending appointments that are currently scheduled with his specialty care teams. Activity Level: Activity as Tolerated Discharge Diet: Regular Prescriptions: No Action aspirin 81 mg tablet,chewable 1 tab PO DAILY oxycodone 5 mg tablet 5 - 10 mg PO Q4H PRN (Reason: pain) atorvastatin 40 mg tablet 40 mg PO HS amlodipine 5 mg tablet 5 mg PO DAILY Novolin N FlexPen 100 unit/mL (3 mL) insulin pen 8 unit subcut QAM pantoprazole 40 mg tablet,delayed release (DR/EC) 40 mg PO DAILY sertraline 50 mg tablet 100 mg PO DAILY levetiracetam 100 mg/mL solution 750 mg PO BID cefadroxil 500 mg capsule 500 mg PO BID acetaminophen 500 mg tablet 1,000 mg PO TID calcium citrate-vitamin D3 315 mg-6.25 mcg (250 unit) tablet 1 tab PO BID carboxymethylcellulose sodium [Lubricant Eye Drops] 0.5 % dropperette 2 drp ophthalmic (eye) QID PRN nystatin 100,000 unit/gram cream 1 applic topical BID sennosides [senna] 8.6 mg tablet 8.6 mg PO BID polyethylene glycol 3350 17 gram/dose powder 17 g PO DAILY doxycycline hyclate 100 mg capsule 100 mg PO BID 7 Days Qty: 14 0RF furosemide 20 mg tablet 20 mg PO DAILY Stand Alone Forms: Reactivity Info Instructions
--- OUTSIDE RECORDS SUMMARY | 2024-10-29 13:15 | XMS_ITS | Clinical Summary ---
Author Organization [facility] Address [facility] [place] [address] Care Team Providers Care Security Guard Supervisor Name Role Phone Monty Hernandez MD Primary Care Provider [phone]- [phone] Allergies No known active allergies Medications CPAPIndications:MICHELET [...] by mouth once daily. 09/03/19 24 Active Senna 8.6 mg tablet Take 8.6 [...] Encounters Date Type Department Care Team Description 10/20/2024 Lab Requisition [facility] [phone] William Edwards MD 10/05/2024 Lab Requisition [facility] [phone] William Edwards MD 09/29/2024 Lab Requisition [facility] [phone] William Edwards MD 09/29/2024 Lab Requisition [address] [address] Pauline Mcbride NP 09/27/2024 Lab Requisition [facility] [phone] William Edwards MD 09/20/2024 Lab Requisition [facility] [phone] Pauline Mcbride NP 09/16/2024 Lab Requisition [facility] [address] 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 Gender Identity Not on file Sexual Orientation [...] Hepatitis C screening for age 18-79 1983 Hepatitis B series for 19+ ( 1 of 3 - 19+ 3-dose series) 01/02/1984 Pneumococcal series for age 50+ (1 of 2 - PCV) 01/02/1984 Zoster (shingles) series for age 50+ (1 of 2) 2015 Depression screening for age 12+ 03/16/2016 03/16/19 16 BMI (ht and wt on same day) for age 18+ 05/03/2016 05/04/2015, 04/27/2015, 03/16/2015 COVID-19 vaccine series ( season) 2024 Influenza Vaccine (#1) 2024 Colonoscopy through age 75 04/17/2025 04/18/2015 Tetanus booster 04/26/2025 04/27/2015 Lipids for age 45-75 09/22/2028 09/23/2023, 07/22/2023, 03/16/2015 RSV vaccine for adults or pr egnancy (1 - 1-dose 75+ series) 01/02/2040 Procedures Procedure Name Priority Date/Time Associated Diagnosis Comments HEMOGLOBIN A1C Routine 10/26/2024 7:56 AM CDT Type 2 diabetes mellitus with foot ulcer (CODE) (HC) CREATININE Routine 10/26/2024 7:56 AM CDT Type 2 diabetes mellitus with foot ulcer (CODE) (HC) CBC WITH AUTO DIFFERENTIAL Routine 10/12/2024 7:30 AM CDT [employer]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 VANCOMYCIN TROUGH Routine 10/12/2024 7:3 0 AM CDT 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 CREATININE Routine 10/12/2024 7:30 AM CDT [employer]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 ALT (SGPT) Routine 10/12/2024 7:30 AM CDT retirement (current) use of antibiotics ALK PHOSPHATASE Routine 10/12/2024 7:30 AM CDT retirement (current) use of antibiotics CBC WITH AUTO DIFFERENTIAL Routine 10/12/2024 7:30 AM CDT [employer]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 CBC WITH AUTO DIFFERENTIAL Routine 10/05/2024 7:56 AM CDT retirement (current) use of antibiotics VANCOMYCIN TROUGH Routine 10/05/2024 7:5 6 AM CDT retirement (current) use of antibiotics CREATININE Routine 10/05/2024 7:56 AM CDT [employer]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 ALT (SGPT) Routine 10/05/2024 7:56 AM CDT retirement (current) use of antibiotics CBC WITH AUTO DIFFERENTIAL Routine 10/05/2024 7:56 AM CDT retirement (current) use of antibiotics ALK PHOSPHATASE Routine 10/05/2024 7:56 AM CDT retirement (current) use of antibiotics VANCOMYCIN TROUGH Routine 09/29/2024 9:1 5 AM CDT Unspecified fracture of shaft of right femur, subsequent encounter for closed fracture with routine healing CBC WITH AUTO DIFFERENTIAL Routine 09/28/2024 7:48 AM CDT retirement (current) use of antibiotics CREATININE Routine 09/28/2024 7:48 AM CDT retirement (current) use of antibiotics ALT (SGPT) Routine 09/28/2024 7:48 AM CDT retirement (current) use of antibiotics ALK PHOSPHATASE Routine 09/28/2024 7:48 AM CDT [employer]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 CBC WITH AUTO DIFFERENTIAL Routine 09/28/2024 7:48 AM CDT retirement (current) use of antibiotics RED CELL MORPHOLOGY Routine 09/21/2024 7 :58 AM CDT Acute posthemorrhagic anemia Encounter for therapeutic drug level monitoring PLATELET ESTIMATE Routine 09/21/2024 7:5 8 AM CDT Acute posthemorrhagic anemia Encounter for therapeutic drug level monitoring MANUAL DIFFERENTIAL Routine 09/21/2024 7 :58 AM CDT Acute posthemorrhagic anemia Encounter for therapeutic drug level monitoring CBC WITH AUTO DIFFERENTIAL Routine 09/21/2024 7:58 AM CDT Acute posthemorrhagic anemia Encounter for therapeutic drug level monitoring VANCOMYCIN Routine 09/21/2024 7:58 AM CDT Acute posthemorrhagic anemia Encounter for therapeutic drug level monitoring CREATININE Routine 09/21/2024 7:58 AM CDT Acute posthemorrhagic anemia Encounter for therapeutic drug level monitoring ALT (SGPT) Routine 09/21/2024 7:58 AM CDT Acute posthemorrhagic anemia Encounter for therapeutic drug level monitoring CBC WITH AUTO DIFFERENTIAL Routine 09/21/2024 7:58 AM CDT Acute posthemorrhagic anemia Encounter for therapeutic drug level monitoring VANCOMYCIN TROUGH Routine 09/16/2024 8:3 7 AM CDT Unspecified fracture of shaft of right femur, initial encounter for closed fracture (HC) CBC WITH AUTO DIFFERENTIAL Routine 08/10/2024 7:46 AM CDT retirement (current) use of antibiotics ALT (SGPT) Routine 08/10/2024 7:46 AM CDT [employer]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 CREATININE Routine 08/10/2024 7:46 AM CDT retirement (current) use of antibiotics ALK PHOSPHATASE Routine 08/10/2024 7:46 AM CDT [employer]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 CBC WITH AUTO DIFFERENTIAL Routine 08/10/2024 7:46 AM CDT retirement (current) use of antibiotics RED CELL MORPHOLOGY Routine 08/03/2024 7 :53 AM CDT Infection and inflammatory reaction due to internal right hip prosthesis, subsequent encounter PLATELET ESTIMATE Routine 08/03/2024 7:5 3 AM CDT Infection and inflammatory reaction due to internal right hip prosthesis, subsequent encounter MANUAL DIFFERENTIAL Routine 08/03/2024 7 :53 AM CDT Infection and inflammatory reaction due to internal right hip prosthesis, subsequent encounter CBC WITH AUTO DIFFERENTIAL Routine 08/03/2024 7:53 AM CDT Infection and inflammatory reaction due to internal right hip prosthesis, subsequent encounter BASIC METABOLIC PANEL Routine 08/03/2024 7:53 AM CDT Infection and inflammatory reaction due to internal right hip prosthesis, subsequent encounter ALT (SGPT) Routine 08/03/2024 7:53 AM CDT Infection and inflammatory reaction due to internal right hip prosthesis, subsequent encounter ALK PHOSPHATASE Routine 08/03/2024 7:53 AM CDT Infection and inflammatory reaction due to internal right hip prosthesis, subsequent encounter CBC WITH AUTO DIFFERENTIAL Routine 08/03/2024 7:53 AM CDT Infection and inflammatory reaction due to internal right hip prosthesis, subsequent encounter LIPID PANEL Routine 09/23/2023 7:41 AM CDT Essential (primary) hypertension Elevation of levels of liver transaminase levels from Last 3 Months or Most Recently Relevant to Health Maintenance Results * (ABNORMAL) HEMOGLOBIN A1C (10/26/2024 7:56 AM CDT) [facility] HEMOGLOBIN A1C SCREENING 7.2(H) <=6.4 % 10/26/2024 9:49 AM CDT [facility] Blood BLOOD SPECIMEN / Unknown Venipuncture / Unknown 10/26/2024 7:56 AM CDT 10/26/2024 9:38 AM CDT Narrative [facility] - 10/26/2024 9:49 AM CDT (<5.7%) Normal (5.7% to 6.4%) Indicates prediabetes (>=6.5%) Confirms diabetes Falsely low levels may be seen with: Recent Transfusion, Recent Significant Blood Loss, Hemolytic Diseases, or Falsely elevated levels may be seen with: Untreated Anemias, Splenectomy William Edwards MD CHEMISTRY Final Result Performing Organization Address [facility] Co de Phone Number [facility] [address] [place] [phone] * CREATININE (10/26/2024 7:56 AM CDT) Only the most recent of6 resultswithin the time period is included. [facility] eGFR >90 >90 mL/min/1.7 3m2 10/26/2024 10:02 AM CDT [facility] Comment:As of 2021, eG FR is calculated by the CKD-EPI creatinine equation without race adjustment. eGFR can be influenced by muscle mass, exercise, and diet. The reported eGFR is an estimation only and is only applicable if the renal function is stable. CREATININE 0.88 0.70 - 1.20 mg/dL 10/26/2024 10:02 AM CDT [facility] Blood BLOOD SPECIMEN / Unknown Venipuncture / Unknown 10/26/2024 7:56 AM CDT 10/26/2024 9:38 AM CDT William Edwards MD CHEMISTRY Final Result Performing Organization Address [facility] Co de Phone Number [facility] [address] [place] [address] * (ABNORMAL) CBC WITH AUTO DIFFERENTIAL (10/12/2024 7:30 AM T) Only the most recent of6 resultswithin the time period is included. WHITE BLOOD COUNT 6.9 4.5 - 11.0 thou/cu mm 10/12/2024 9:15 AM [facility] RED BLOOD COUNT 3.89(L) 4.30 - 5.90 mil/cu mm 10/12/2024 9:15 AM [facility] HEMOGLOBIN 10.1(L) 13.5 - 17.5 g/dL 10/12/2024 9:15 AM [facility] HEMATOCRIT 33.7(L) 37.0 - 53.0 % 10/12/2024 9:15 AM [facility] MCV 87 80 - 100 fL 10/12/2024 9:15 AM [facility] MCH 26.0 26.0 - 34.0 pg 10/12/2024 9:15 AM [facility] MCHC 30.0(L) 32.0 - 36.0 g/dL 10/12/2024 9:15 AM [facility] RDW 14.9 11.5 - 15.5 % 10/12/2024 9:15 AM [facility] PLATELET COUNT 217 140 - 440 thou/cu mm 10/12/2024 9:15 AM [facility] MPV 11.3(H) 6.5 - 11.0 fL 10/12/2024 9:15 AM [facility] % NEUT 49.8 % 10/12/2024 9:15 AM [facility] % LYMPH 26.7 % 10/12/2024 9:15 AM [facility] % MONO 12.6 % 10/12/2024 9:15 AM [facility] % EOS 9.5 % 10/12/2024 9:15 AM [facility] % BASO 1.4 % 10/12/2024 9:15 AM CDT [facility] ABSOLUTE NEUTROPHILS 3.5 1.7 - 7.0 thou/cu mm 10/12/2024 9:15 AM CDT [facility] ABSOLUTE LYMPHOCYTES 1.9 0.9 - 2.9 thou/cu mm 10/12/2024 9:15 AM T [facility] ABSOLUTE MONOCYTES 0.9(H) <0.9 thou/cu mm 10/12/2024 9:15 AM T [facility] ABSOLUTE EOSINOPHILS 0.7(H) <0.5 thou/cu mm 10/12/2024 9:15 AM T [facility] ABSOLUTE BASOPHILS 0.1 <0.3 thou/cu mm 10/12/2024 9:15 AM T [facility] Blood BLOOD SPECIMEN / Unknown Venipuncture / Unknown 10/12/2024 7:30 AM CDT 10/12/2024 9:02 AM CDT William Edwards MD HEMATOLOGY Final Result [facility] [address] [place] [address] * VANCOMYCIN TROUGH (10/12/2024 7:30 AM CDT) Only the most recent of4 resultswithin the time period is included. [facility] VANCOMYCIN,TRO UGH 13.3 7.0 - 20.0 ug/mL 10/12/2024 9:43 AM CDT [facility] DATE OF LAST DOSE,TROUGH 10/11/2024 10/12/2024 9:43 AM T [facility] TIME OF LAST DOSE,TROUGH 8:00 AM 10/12/2024 9:43 AM CDT [facility] Blood BLOOD SPECIMEN / Unknown Venipuncture / Unknown 10/12/2024 7:30 AM CDT 10/12/2024 9:02 AM CDT William Edwards MD CHEMISTRY Final Result [facility] [address] [place] [address] * ALT (SGPT) (10/12/2024 7:30 AM CDT) Only the most recent of6 resultswithin the time period is included. ALT (SGPT) 13 10 - 50 IU/L 10/12/2024 9:39 AM CDT [facility] Blood BLOOD SPECIMEN / Unknown Venipuncture / Unknown 10/12/2024 7:30 AM CDT 10/12/2024 9:02 AM CDT William Edwards MD CHEMISTRY Final Result Performing Organization Address City/[facility] Co de Phone Number [facility] [address] [place] [address] * (ABNORMAL) ALK PHOSPHATASE (10/12/2024 7:30 AM CDT) Only the most recent of5 resultswithin the time period is included. ALK PHOSPHATASE 186(H) 40 - 129 IU/L 10/12/2024 9:39 AM CDT [facility] Blood BLOOD SPECIMEN / Unknown Venipuncture / Unknown 10/12/2024 7:30 AM CDT 10/12/2024 9:02 AM CDT William Edwards MD CHEMISTRY Final Result Performing Organization Address City/[facility]/ZIP Co de Phone Number [facility] [address] [place] [address] * (ABNORMAL) RED CELL MORPHOLOGY (09/21/2024 7:58 AM CDT) Only the most recent of2 resultswithin the time period is included. ELLIPTOCYTES Few 09/21/2024 10:10 AM CDT [facility] POLYCHROMASIA Slight 09/21/2024 10:10 AM CDT [facility] RBC COMMENT Present(A) RBC morphology appears normal, RBC morphology within normal limits for newborns. 09/21/2024 10:10 AM CDT [facility] Blood BLOOD SPECIMEN / Unknown Venipuncture / Unknown 09/21/2024 7:58 AM CDT 09/21/2024 9:11 AM CDT Pauline Mcbride NP HEMATOLOGY Final Resul t Performing Organization Address City/[facility]/ZIP Co de Phone Number [facility] [address] [place] [address] * PLATELET ESTIMATE (09/21/2024 7:58 AM CDT) Only the most recent of2 resultswithin the time period is included. PLATELET ESTIMATE Adequate Adequate, No estimate 09/21/2024 10:10 AM T [facility] Blood BLOOD SPECIMEN / Unknown Venipuncture / Unknown 09/21/2024 7:58 AM CDT 09/21/2024 9:11 AM CDT Pauline Mcbride NP HEMATOLOGY Final Resul t Performing Organization Address City/[facility]/ZIP Co de Phone Number [facility] [address] [place] [address] * (ABNORMAL) MANUAL DIFFERENTIAL (09/21/2024 7:58 AM CDT) Only the most recent of2 resultswithin the time period is included. % NEUTROPHILS 60.0 % 09/21/2024 10:10 AM [facility] % LYMPHOCYTES 20.0 % 09/21/2024 10:10 AM [facility] % MONOCYTES 11.0 % 09/21/2024 10:10 AM [facility] % EOSINOPHILS 9.0 % 09/21/2024 10:10 AM [facility] % BASOPHILS 0.0 % 09/21/2024 10:10 AM [facility] NEUTROPHILS ABSOLUTE 5.0 1.7 - 7.0 thou/cu mm 09/21/2024 10:10 AM [facility] LYMPHOCYTES ABSOLUTE 1.7 0.9 - 2.9 thou/cu mm 09/21/2024 10:10 AM CDT [facility] MONOCYTES ABSOLUTE 0.9(H) <0.9 thou/cu mm 09/21/2024 10:10 AM CDT [facility] EOSINOPHILS ABSOLUTE 0.7(H) <0.5 thou/cu mm 09/21/2024 10:10 AM T [facility] BASOPHILS ABSOLUTE 0.0 <0.3 thou/cu mm 09/21/2024 10:10 AM T [facility] Blood BLOOD SPECIMEN / Unknown Venipuncture / Unknown 09/21/2024 7:58 AM CDT 09/21/2024 9:11 AM CDT Pauline Mcbride NP HEMATOLOGY Final Resul t Performing Organization Address City/[facility]/ZIP Co de Phone Number [facility] [address] [place] [address] * VANCOMYCIN (09/21/2024 7:58 AM CDT) VANCOMYCIN 11.9 ug/mL 09/21/2024 9:41 AM T [facility] Comment:No Reference Range D efined. DATE OF LAST DOSE,RANDOM Not Given 09/21/2024 9:41 AM T [facility] TIME OF LAST DOSE,RANDOM Not Given 09/21/2024 9:41 AM T [facility] Blood BLOOD SPECIMEN / Unknown Venipuncture / Unknown 09/21/2024 7:58 AM CDT 09/21/2024 9:11 AM CDT Pauline Mcbride NP CHEMISTRY Final Resul t [facility] [address] [place] [address] * (ABNORMAL) BASIC METABOLIC PANEL (08/03/2024 7:53 AM CDT) SODIUM 139 136 - 145 mmol/L 08/03/2024 8:56 AM [facility] POTASSIUM 3.9 3.5 - 5.1 mmol/L 08/03/2024 8:56 AM [facility] CHLORIDE 99 98 - 107 mmol/L 08/03/2024 8:56 AM [facility] CO2,TOTAL 28 22 - 29 mmol/L 08/03/2024 8:56 AM [facility] ANION GAP 12 5 - 18 08/03/2024 8:56 AM [facility] GLUCOSE 139(H) 70 - 99 mg/dL 08/03/2024 8:56 AM [facility] CALCIUM 8.9 8.8 - 10.4 mg/dL 08/03/2024 8:56 AM [facility] Comment: Reference ranges for this test were updated on 12/23/2023 to reflect our healthy population more accurately. Reference range changes are not retroactively applied to results, but previous results using the same methodology can be interpreted in the context of the new reference range. BUN 15 6 - 20 mg/dL 08/03/2024 8:56 AM [facility] CREATININE 0.66(L) 0.70 - 1.20 mg/dL 08/03/2024 8:56 AM [facility] BUN/CREAT RATIO 23(H) 10 - 20 8:56 AM [facility] eGFR >90 >90 mL/min/1. 73m2 08/03/2024 8:56 AM [facility] Comment:As of 2021, eG FR is calculated by the CKD-EPI creatinine equation without race adjustment. eGFR can be influenced by muscle mass, exercise, and diet. The reported eGFR is an estimation only and is only applicable if the renal function is stable. Blood BLOOD SPECIMEN / Unknown Venipuncture / Unknown 08/03/2024 7:53 AM CDT 08/03/2024 8:30 AM T us Pauline Mcbride NP CHEMISTRY Final Resul t [facility] [address] [place] [address] * LIPID PANEL (09/23/2023 7:41 AM CDT) CHOLESTEROL,TOTAL 123 100 - 199 mg/dL 09/23/2023 9:11 AM T [facility] Comment: Cholesterol, Total Reference Ranges Desirable <200 mg/dL Borderline 200-239 mg/dL High >=240 mg/dL TRIGLYCERIDES 94 <150 mg/dL 09/23/2023 9:11 AM T [facility] HDL CHOLESTEROL 48 >40 mg/dL 9:11 AM [facility] NON-HDL CHOLESTEROL 75 <145 mg/dl 09/23/2023 9:11 AM T [facility] CHOL/HDL RATIO 2.56 <4.50 09/23/2023 9:11 AM [facility] LDL CHOLESTEROL 56 <=130 mg/dL 09/23/2023 9:11 AM [facility] VLDL CHOLESTEROL 19 <=30 mg/dL 09/23/19 24 9:11 AM [facility] Blood BLOOD SPECIMEN / Unknown Venipuncture / Unknown 09/23/2023 7:41 AM CDT 09/23/2023 8:46 AM CDT Pauline Mcbride NP CHEMISTRY Final Resul t Performing Organization Address [facility] Co de Phone Number [facility] [address] [place] [address] from Last 3 Months or Most Recently Relevant to Health Maintenance Insurance [facility] Advance Directives Documents on File Type Date Recorded 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
--- NOTE | 2024-10-29 19:00 | CRLHL7_ITS ---
For Patients: As a result of the Century Cures Act, medical imaging exams and procedure reports are released immediately into your electronic medical record. You may view this report before your referring provider. If you have questions, please contact your health care provider. INDICATION: .Follow-up possible head bleed TECHNIQUE: Head CT without contrast. COMPARISON: Same day. FINDINGS: Periventricular areas of low attenuation, likely due to chronic small vessel ischemic changes. Generalized volume loss. Atherosclerosis. 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 No intracranial hemorrhage. No discrete mass or mass effect. There is no midline shift. The basilar cisterns are patent. No hydrocephalus. The henley-white matter interface is otherwise preserved. No acute osseous abnormality. No extracalvarial soft tissue abnormality. The mastoid air cells are clear. The paranasal sinuses are well-aerated. The visualized portions of the orbits and globes are unremarkable. 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 Please note that all CT scans at this facility use dose modulation, iterative reconstruction, and/or weight-based dosing when appropriate to reduce radiation dose to as low as reasonably achievable. Dictated by Edgard Gomez MD @ 10/29/2024 7:17:17 PM (Electronically Signed)
== END 2024-10-29 21:00 | disposition home or self-care (01) ==
PROVIDERS: Emergency Provider Family Medicine; PCP Family Medicine
DX: S09.90XA Unspecified injury of head, initial encounter (principal); T45.516A Underdosing of anticoagulants, initial encounter; W18.30XA Fall on same level, unspecified, initial encounter; Y92.129 Unspecified place in nursing home as the place of occurrence of the external cause; Z91.148 Patient's other noncompliance with medication regimen for other reason
CPT/HCPCS: 70450; 82962; 99283; 99284

== ENCOUNTER 2024-10-29 20:48 | Outpatient (CLI) | payer OTHER, SELFPAY | END 2024-10-29 20:49 | disposition home or self-care (01) | LOC: AMB 11-15 17:07 | PROVIDERS: PCP Family Medicine; Visit Provider Family Medicine | DX: Z74.01 Bed confinement status (principal) | CPT/HCPCS: A0425; A0428 ==

== ENCOUNTER 2024-11-16 14:47 | Outpatient (CLI) | payer OTHER, SELFPAY | END 2024-11-16 14:48 | disposition home or self-care (01) | LOC: AMB 11-22 11:03 | PROVIDERS: PCP Family Medicine; Visit Provider Emergency Medicine Emergency Medical Services | DX: T81.89XA Other complications of procedures, not elsewhere classified, initial encounter (principal) | CPT/HCPCS: A0425; A0429 ==